=== PATIENT | female | born 1950 | race Caucasian/White ===

== ENCOUNTER 2022-03-09 00:10 | Inpatient (IN) | payer MEDICARE, BC, SELFPAY ==
[2022-03-09] VITALS (15 sets, daily range): BP systolic 106–147; BP diastolic 58–106; PULSE 66–87; RESP 18–22; TEMP 36.6–37.1; O2SAT 76–93; BMI 36.6; BMI 38.2
--- NOTE | 2022-03-09 00:49 | PC.NURSE ---
During triage assessment, patient with O2 saturation 76% on RA, patient placed on 8L NC, now satting 91%. Dr. Fischer notified of this.
--- NOTE | 2022-03-09 01:18 | ED.WEAKNESS ---
HPI - Weakness General Time Seen by Provider: 01:00 Date Seen: 03/09/22 Chief complaint: Unspecified Complaint, Adult Stated complaint: Very fatigued Time Seen by Provider: 03/09/22 00:23 Source: patient and family Mode of arrival: ambulatory Limitations: no limitations History of Present Illness HPI Narrative: Patient is a 71-year-old female who presents ambulatory to the emergency room for weakness and fatigue. She tells me that she just can not stay awake she falls asleep talking to her . She also feels weak any sort of movement around the house does drains her. This is been for a couple days, she has noted no coughing, runny nose, chest pain, isabella shortness of breath, abdominal pain, dysuria frequency rashes or anything else. She has never before had this. She has had 3 COVID shots, no previous history of COVID. She is on oxygen at nighttime to sleep. But during the day she normally is not on oxygen and her sats run approximately 85-90% she tells me. She is eating and drinking otherwise normally. But it is a challenge to eat because she falls asleep all she eats. Complaint: generalized weakness and lack of energy Onset (ago): day(s) Duration: constant and progressively worsening Location: generalized Migration: none Relieving factors: none Exacerbating factors: none, movement and exertion Related Data Home Medications Medication Instructions Recorded Confirmed amlodipine 10 mg tablet 5 mg PO DAILY 03/09/22 03/09/22 aspirin 81 mg capsule 81 mg PO DAILY 03/09/22 03/09/22 atenolol 50 mg tablet mg 03/09/22 gabapentin 300 mg capsule mg 03/09/22 losartan 25 mg tablet mg 03/09/22 simvastatin 40 mg tablet mg 03/09/22 sodium chloride 1 gram tablet 03/09/22 Allergies Allergy/AdvReac Type Severity Reaction Status Date / Time duloxetine Allergy Mild itchy Verified 03/09/22 02:39 Review of Systems Status of ROS: Reports: 10 or more systems reviewed and unremarkable except as noted in History and below PFSH PFS Social History Narrative: Tobacco use Smoking Status: Current every day smoker What tobacco products do you use: cigarettes Second hand tobacco smoke exposure: No How often do you have a drink containing alcohol: 2-4 times a month How many standard drinks containing alcohol do you have on a typical day: 1 or 2 How often do you have six or more drinks on one occasion: Never AUDIT-C Alcohol total score: 2 Non-prescribed substance use: denies use Exam Narrative: Exam Narrative: Patient is speaking to me in full sentences in absolutely no distress. He was initially 76 % on room air. She is now placed on 8 L of oxygen and runs approximately 88-90%. Const: Vital Signs, click to edit/add: Vital Signs - 24 hr 03/09/22 00:25 03/09/22 00:43 Temperature 98.7 F Pulse Rate [Left P ulse Oximeter] 87 66 Respiratory Rate 22 Blood Pressure [Le ft Upper Arm] 129/74 106/73 Pulse Oximetry 76 L 90 Common normals: no apparent distress, oriented x3, no limitations, alert and well nourished General appearance: cooperative, comfortable, well developed and other (Appears cushingoid) Nutritional appearance: obese Orientation/consciousness: Yes awake, Yes oriented to person, Yes oriented to place and Yes oriented to time HENMT: Common normals: normocephalic, head/scalp atraumatic, hearing grossly normal bilaterally, external ears normal, TM's normal bilaterally, moist oral mucous membranes and oropharynx normal Head and scalp: normal to inspection, normocephalic and atraumatic Face and sinus: normal facial exam External ear: external ears normal Tympanic membrane: TM's normal bilaterally Eye: Common normals: PERRL, EOMs intact bilaterally and fundi normal bilaterally General eye: normal appearance of both eyes Pupil: PERRL Direct Ophthalmoscopy: fundi normal bilaterally Neck & C-Spine: Common normals: full ROM, no lymphadenopathy, supple, no meningeal signs, no JVD, thyroid normal and no carotid bruits General: normal visual inspection and trachea midline Thyroid: thyroid normal Cervical spine: cervical ROM normal Lymph: Lymphatic: no lymphadenopathy noted and no lymphedema noted Chest: Common normals: inspection of chest normal and palpation of chest normal Chest: symmetrical chest wall rise Resp: Common normals: normal respiratory effort, no retractions, no use of accessory muscles and clear to auscultation bilaterally Effort & inspection: able to speak in complete sentences and symmetric chest movement Auscultation: clear to auscultation bilaterally Cardio: Common normals: no JVD, regular rate, regular rhythm, S1 normal heart sound, S2 normal heart sound and peripheral pulses 2+ throughout Jugular venous distention: other (Tough to discern her JVD due to the size of her neck.) Palpation: normal PMI Rate: regular rate Rhythm: regular rhythm Heart sounds: S1 normal and S2 normal; no click, no gallops, no murmurs, no rubs, abnormal split S2 and heart sounds not abnormal Peripheral pulses: pulses 2+ throughout and brachial pulses present GI: Common normals: Normal to inspection, nondistended, normoactive bowel sounds present, soft to palpation, non-tender, no hepatosplenomegaly, no masses and no bruits Auscultation: normoactive bowel sounds Palpation: soft and no hepatosplenomegaly Percussion: normal to percussion Rectal Exam - Female: deferred : Common normals: no CVA tenderness Bladder/kidney exam: no CVA tenderness Back & Pelvis: Common normals: no CVA tenderness, thoracic and lumbar spine normal to inspection and no thoracic nor lumbar tenderness Extremity: Common normals: normal to inspection, full ROM, normal capillary refill, no joint enlargement, no clubbing, cyanosis or edema, no calf tenderness and no pedal edema General: normal exam except as noted Neuro: Common normals: oriented x3 Sensorium/orientation: awake, alert, oriented to person, oriented to place and oriented to time Meningeal signs: no meningeal signs Skin: Common normals: no rashes or lesions noted and no wounds General skin exam: no rashes or lesions noted Course Reevaluation(s) Reevaluation #1: Patient is wheezing in the room when I went in to talk to her about her CT scan. I think there is a component of COPD exacerbation here. We will give her a DuoNeb along with Solu-Medrol. She clearly has the pulmonary hypertension component. The hypoxia has improved with the oxygen at 5-6 L. I will consult the overnight out E hospitalist to admit her to the hospital for further care. Time: 03:19 Vital Signs Vital signs: Initial Vital Signs Temperature 98.7 F 03/09/22 00:25 Temperature Source Temporal Artery Scan 03/09/22 00:25 Pulse Rate 87 03/09/22 00:25 Pulse Rhythm 03/09/22 00:25 Blood Pressure 129/74 03/09/22 00:25 Blood Pressure Mean 92 03/09/22 00:25 Blood Pressure Position Supine 03/09/22 00:25 Pulse Oximetry 76 L 03/09/22 00:25 Oxygen Delivery Method 03/09/22 00:25 Vital Signs Temperature 98.7 F 03/09/22 00:25 Pulse Rate 87 03/09/22 00:25 Blood Pressure 129/74 03/09/22 00:25 Pulse Oximetry 76 L 03/09/22 00:25 Temperature 98.7 F 03/09/22 00:25 Pulse Rate 66 03/09/22 00:43 Respiratory Rate 22 03/09/22 00:43 Blood Pressure 106/73 03/09/22 00:43 Pulse Oximetry 90 03/09/22 00:43 MDM - Weakness MDM Narrative Medical decision making narrative: Life-threatening differential diagnosis considered include stroke, coronary artery disease, pneumonia, and heart failure. Other differential diagnosis include but are not limited to electrolyte imbalances, anemia, medication reactions, and urinary tract infection Life-threatening differential diagnosis includes occluded COPD exacerbation, pulmonary edema, acute coronary syndromes, pulmonary embolism, pneumonia, and pneumothorax. Other differential diagnosis considerations include asthma, bronchitis as well as other etiologies Medical Records Attestation: I reviewed the patient's medical records. Lab Data Attestation: I reviewed the patient's lab results. Labs: Lab Results 03/09/22 03/09/22 03/09/22 Range/Units 00:43 01:05 01:05 WBC 9.25 (4.50-11.00) K/uL RBC 4.41 (4.00-5.20) m/uL Hgb 14.6 (12.0-16.0) gm/dL Hct 45.5 (33.0-51.0) % MCV 103 H (80-100) fL MCH 33 (26-34) pg MCHC 32 (32-36) gm/dL RDW Coeff of Ezra 13.3 (11.5-15.5) % Plt Count 241 (140-440) K/uL Neut % (Auto) 75.3 H (42.0-72.0) % Lymph % (Auto) 11.7 L (20-44) % [place] % (Auto) 9.4 (0.0-11.0) % Eos % (Auto) 1.5 (0.0-7.0) % Baso % (Auto) 0.4 (0.0-3.0) % Neut # (Auto) 7.00 (1.7-7.0) K/uL Lymph # (Auto) 1.10 (0.90-2.90) K/uL [place] # (Auto) 0.90 (0.00-0.90) K/UL Eos # (Auto) 0.14 (0.00-0.50) K/uL Baso # (Auto) 0.04 (0.00-0.30) K/uL Abs Immat Gran (auto) 0.16 (0.00-0.30) K/uL INR (0.91-1.10) APTT (23-33) Seconds D-Dimer Quant (PE/DVT) 2.89 H (0.00-0.50) ug/ml ABG pH (7.35-7.45) ABG pCO2 (35-45) mmHG ABG pO2 (80-105) mmHG ABG HCO3 (21-28) mmol/L ABG Total CO2 (21-30) mmol/l ABG Base Excess (-3.0-3.0) mmol/L Sodium (135-149) mmol/L Potassium (3.6-5.1) mmol/L Chloride (96-114) mmol/L Carbon Dioxide (20-32) mmol/L BUN (7-30) mg/dL Creatinine (0.5-1.5) mg/dL Estimated Creat Clear Glucose (60-115) mg/dL Calcium (8.4-10.6) mg/dL NT-Pro-B Natriuret Pep (0-125) PG/mL SARS-CoV-2 (PCR) Negative SARS-CoV-2 (Negative) Influenza Type A (PCR) NEGATIVE (Negative) Influenza Type B (PCR) NEGATIVE (Negative) RSV (PCR) NEGATIVE (Negative) POC Troponin I (0.01-0.04) ng/ml 03/09/22 03/09/22 03/09/22 Range/Units 01:05 01:05 01:05 WBC (4.50-11.00) K/uL RBC (4.00-5.20) m/uL Hgb (12.0-16.0) gm/dL Hct (33.0-51.0) % MCV (80-100) fL MCH (26-34) pg MCHC (32-36) gm/dL RDW Coeff of Ezra (11.5-15.5) % Plt Count (140-440) K/uL Neut % (Auto) (42.0-72.0) % Lymph % (Auto) (20-44) % [place] % (Auto) (0.0-11.0) % Eos % (Auto) (0.0-7.0) % Baso % (Auto) (0.0-3.0) % Neut # (Auto) (1.7-7.0) K/uL Lymph # (Auto) (0.90-2.90) K/uL [place] # (Auto) (0.00-0.90) K/UL Eos # (Auto) (0.00-0.50) K/uL Baso # (Auto) (0.00-0.30) K/uL Abs Immat Gran (auto) (0.00-0.30) K/uL INR 1.01 (0.91-1.10) APTT 32 (23-33) Seconds D-Dimer Quant (PE/DVT) (0.00-0.50) ug/ml ABG pH (7.35-7.45) ABG pCO2 (35-45) mmHG ABG pO2 (80-105) mmHG ABG HCO3 (21-28) mmol/L ABG Total CO2 (21-30) mmol/l ABG Base Excess (-3.0-3.0) mmol/L Sodium 128 L (135-149) mmol/L Potassium 5.5 H (3.6-5.1) mmol/L Chloride 88 L (96-114) mmol/L Carbon Dioxide 31 (20-32) mmol/L BUN 23 (7-30) mg/dL Creatinine 0.9 (0.5-1.5) mg/dL Estimated Creat Clear 45.76 Glucose 110 (60-115) mg/dL Calcium 8.7 (8.4-10.6) mg/dL NT-Pro-B Natriuret Pep 2240 H (0-125) PG/mL SARS-CoV-2 (PCR) (Negative) Influenza Type A (PCR) (Negative) Influenza Type B (PCR) (Negative) RSV (PCR) (Negative) POC Troponin I 0.00 L (0.01-0.04) ng/ml 03/09/22 Range/Units 01:35 WBC (4.50-11.00) K/uL RBC (4.00-5.20) m/uL Hgb (12.0-16.0) gm/dL Hct (33.0-51.0) % MCV (80-100) fL MCH (26-34) pg MCHC (32-36) gm/dL RDW Coeff of Ezra (11.5-15.5) % Plt Count (140-440) K/uL Neut % (Auto) (42.0-72.0) % Lymph % (Auto) (20-44) % [place] % (Auto) (0.0-11.0) % Eos % (Auto) (0.0-7.0) % Baso % (Auto) (0.0-3.0) % Neut # (Auto) (1.7-7.0) K/uL Lymph # (Auto) (0.90-2.90) K/uL [place] # (Auto) (0.00-0.90) K/UL Eos # (Auto) (0.00-0.50) K/uL Baso # (Auto) (0.00-0.30) K/uL Abs Immat Gran (auto) (0.00-0.30) K/uL INR (0.91-1.10) APTT (23-33) Seconds D-Dimer Quant (PE/DVT) (0.00-0.50) ug/ml ABG pH 7.38 (7.35-7.45) ABG pCO2 59 H (35-45) mmHG ABG pO2 71.0 L (80-105) mmHG ABG HCO3 35 H (21-28) mmol/L ABG Total CO2 31 H (21-30) mmol/l ABG Base Excess 8.0 H (-3.0-3.0) mmol/L Sodium (135-149) mmol/L Potassium (3.6-5.1) mmol/L Chloride (96-114) mmol/L Carbon Dioxide (20-32) mmol/L BUN (7-30) mg/dL Creatinine (0.5-1.5) mg/dL Estimated Creat Clear Glucose (60-115) mg/dL Calcium (8.4-10.6) mg/dL NT-Pro-B Natriuret Pep (0-125) PG/mL SARS-CoV-2 (PCR) (Negative) Influenza Type A (PCR) (Negative) Influenza Type B (PCR) (Negative) RSV (PCR) (Negative) POC Troponin I (0.01-0.04) ng/ml ABG Data Attestation: I personally reviewed and interpreted this ABG as follows: (Hypoxia with increased CO2) Imaging Data CT scan - chest: Attestation: I have reviewed the pertinent imaging results. My impression: Effusions noted, Radiologist's impression: Patient: RACHEL CHUN Facility:?[facility] Patient ID:?[id number] Site Patient ID:?[id number]. Site :?[id number] Study:?CT Chest w/ 95cc Isovue-370 PE Protocol-03/09/2022 2:50:05 AM Ordering Physician:Myra Garcia Final Report: INDICATION: Shortness of breath. History of malignant fallopian tube neoplasm TECHNIQUE: CT chest with i.v. contrast using pulmonary angiographic technique. Coronal and sagittal reformats were obtained. CONTRAST: 95 mL Isovue 370 COMPARISON: 11/10/2021 FINDINGS: Cardiovascular: The pulmonary arteries are unremarkable in enhancement with no evidence of acute pulmonary embolism. Severe enlargement of the main pulmonary artery is present and measures 3.9 cm in maximal short axis. The heart has an unremarkable appearance and size. No sign of aneurysm in the thoracic aorta. A right Port-A-Cath is present. Mediastinum: There is a precarinal lymph node measuring 1.5 cm and increased in size from prior exam. Lung: Peribronchial and segmental atelectasis is present in both posterior lower lobes. Pleura and pericardium: Small bilateral pleural effusions are noted. No significant pericardial effusion is present. Chest wall and axilla: No mass or adenopathy seen. Bone: Unremarkable for age. Upper abdomen: There is a cyst present in the upper pole of the left kidney measuring 2.4 cm. IMPRESSIONS: 1. No CT evidence of acute pulmonary emboli seen. 2. Severe enlargement of the main pulmonary artery is present and measures 3.9 cm in maximal short axis. This is likely due to pulmonary hypertension and is similar in appearance to prior exam. 3. Small bilateral pleural effusions are noted. 4. There is a precarinal lymph node measuring 1.5 cm and increased in size from prior exam. Dictated by Fortunato Baires MD @ 03/09/2022 3:02:38 AM Please note that all CT scans at this facility use dose modulation, iterative reconstruction, and/or weight-based dosing when appropriate to reduce radiation dose to as low as reasonably achievable. Dictated by: Fortunato Baires MD @ 03/09/2022 03:02:44 (Electronic Signature) ECG Data Attestation: I personally reviewed and interpreted this ECG as follows: (Normal sinus rhythm, ventricular rate is 70 beats per minute, no acute ST wave changes) ECG interpretation date: 03/09/22 ECG interpretation time: 01:22 Discharge Plan Discharge Clinical Impression: Pulmonary hypertension, Weakness, Hypoxia, Acute exacerbation of chronic obstructive pulmonary disease, Acute hyponatremia, Acute hyperkalemia Patient Disposition: Admitted As Inpatient Prescriptions: No Action amlodipine 10 mg tablet 5 mg PO DAILY 0RF Label Comments: TAKE ONE TABLET BY MOUTH DAILY sodium chloride 1 gram tablet 0RF Label Comments: TAKE ONE TABLET BY MOUTH TWICE A DAY simvastatin 40 mg tablet 0RF Label Comments: TAKE ONE TABLET BY MOUTH AT BEDTIME losartan 25 mg tablet 0RF Label Comments: TAKE ONE TABLET (25MG) BY MOUTH ONCE DAILY gabapentin 300 mg capsule 0RF Label Comments: TAKE TWO CAPSULES BY MOUTH TWICE A DAY atenolol 50 mg tablet 0RF Label Comments: TAKE ONE TABLET BY MOUTH TWICE A DAY aspirin 81 mg capsule 81 mg PO DAILY 0RF Follow Up/Referrals: Silver Whalen MD [Primary Care Provider] -
[2022-03-09 01:21] LABS: Basophils Absolute Auto 0.04 K/uL (0.00-0.30); Basophils Percent Auto 0.4 % (0.0-3.0); Eosinophils Absolute Auto 0.14 K/uL (0.00-0.50); Eosinophils Percent Auto 1.5 % (0.0-7.0); Hematocrit 45.5 % (33.0-51.0); Hemoglobin* 14.6 gm/dL (12.0-16.0); Immature Granulocytes Abs Auto 0.16 K/uL (0.00-0.30); Lymphocytes Percent Auto 11.7 % (20-44); Mean Corpuscular HGB Conc 32 gm/dL (32-36); Mean Corpuscular Hemoglobin 33 pg (26-34); Mean Corpuscular Volume 103 fL (80-100); Monocytes Percent Auto 9.4 % (0.0-11.0); Neutrophils Percent Auto 75.3 % (42.0-72.0); Platelet Count* 241 K/uL (140-440); RDW Coefficient of Variation % 13.3 % (11.5-15.5); Red Blood Count 4.41 m/uL (4.00-5.20); White Blood Count* 9.25 K/uL (4.50-11.00)
[2022-03-09 01:23] LABS: Slide Review Reflex No
[2022-03-09 01:28] LABS: PCR FLU A NEGATIVE (Negative); PCR FLU B NEGATIVE (Negative); PCR RSV NEGATIVE (Negative); SARS PCR* Negative SARS-CoV-2 (Negative)
[2022-03-09 01:35] LABS: Chloride* 88 mmol/L (96-114); Potassium* 5.5 mmol/L (3.6-5.1); Sodium* 128 mmol/L (135-149)
[2022-03-09 01:37] LABS: INR 1.01 (0.91-1.10); Prothrombin Time 13.7 Seconds
[2022-03-09 01:38] LABS: Blood Urea Nitrogen* 23 mg/dL (7-30); Carbon Dioxide* 31 mmol/L (20-32); Creatinine* 0.9 mg/dL (0.5-1.5); Est. Creatinine Clearance* 45.76; Estimated Glomerular Filt Rate 67.92; Partial Thromboplastin Time* 32 Seconds (23-33)
[2022-03-09 01:39] LABS: Calcium* 8.7 mg/dL (8.4-10.6); Glucose* 110 mg/dL (60-115)
[2022-03-09 01:41] LABS: D Dimer Quantitative* 2.89 ug/ml (0.00-0.50)
--- NOTE | 2022-03-09 01:47 | CT_ITS ---
Final Report Patient: RACHEL CHUN Facility:?[facility] Patient ID:?[id number] Site Patient ID:?[id number]. Site :?[id number] Study:?CT Chest w/ 95cc Isovue-370 PE Protocol-03/09/2022 2:50:05 AM Ordering Physician:Myra Garcia Final Report: INDICATION: Shortness of breath. History of malignant fallopian tube neoplasm TECHNIQUE: CT chest with i.v. contrast using pulmonary angiographic technique. Coronal and sagittal reformats were obtained. CONTRAST: 95 mL Isovue 370 COMPARISON: 11/10/2021 FINDINGS: Cardiovascular: The pulmonary arteries are unremarkable in enhancement with no evidence of acute pulmonary embolism. Severe enlargement of the main pulmonary artery is present and measures 3.9 cm in maximal short axis. The heart has an unremarkable appearance and size. No sign of aneurysm in the thoracic aorta. A right Port-A-Cath is present. Mediastinum: There is a precarinal lymph node measuring 1.5 cm and increased in size from prior exam. Lung: Peribronchial and segmental atelectasis is present in both posterior lower lobes. Pleura and pericardium: Small bilateral pleural effusions are noted. No significant pericardial effusion is present. Chest wall and axilla: No mass or adenopathy seen. Bone: Unremarkable for age. Upper abdomen: There is a cyst present in the upper pole of the left kidney measuring 2.4 cm. IMPRESSIONS: 1. No CT evidence of acute pulmonary emboli seen. 2. Severe enlargement of the main pulmonary artery is present and measures 3.9 cm in maximal short axis. This is likely due to pulmonary hypertension and is similar in appearance to prior exam. 3. Small bilateral pleural effusions are noted. 4. There is a precarinal lymph node measuring 1.5 cm and increased in size from prior exam. Dictated by Fortunato Baires MD @ 03/09/2022 3:02:38 AM Please note that all CT scans at this facility use dose modulation, iterative reconstruction, and/or weight-based dosing when appropriate to reduce radiation dose to as low as reasonably achievable. Dictated by: Fortunato Baires MD @ 03/09/2022 03:02:44 (Electronic Signature)
[2022-03-09 01:49] LABS: NT Pro B Type NatriureticPept* 2240 PG/mL (0-125)
--- NOTE | 2022-03-09 02:07 | PC.NURSE ---
Patient O2 titrated down to 6L NC. Per Dr. Fischer, goal of 90% O2 saturation
--- NOTE | 2022-03-09 02:58 | PC.NURSE ---
O2 titrated to 4L NC, patient satting 90-91%
[2022-03-09] MEDS: METHYLPREDNISOLONE SOD SUCC 62.5 MG/ML (125) 125 MG IVP (03:26)
[2022-03-09] MEDS: IPRAT-ALBUT 0.5-2.5 MG/3 ML NEB 1 NEB IH ×4 (03:26→17:36)
--- NOTE | 2022-03-09 06:02 | PM.IMPN1 ---
Progress Note: A&P Assessment and plan (1) Acute exacerbation of chronic obstructive pulmonary disease: Status: Acute Plan [facility] Hospitalist eHospitalist was contacted with request of consultation for patient presenting with acute hypoxic and hypercapnic respiratory failure. History of presenting illness-the patient is a 71-year-old woman with a past medical history of likely obstructive sleep apnea on home oxygen 3 to 4 L/min at night and recently started on CPAP, possible COPD with ongoing smoking even though she has no formal diagnosis of COPD, hypertension who comes in complaining of worsening shortness of breath and fatigue. She says she has been very tired for the last 4 to 5 days and has had very poor appetite and has hardly eaten anything and has had not much fluid intake. About 2 days ago she began having worsening shortness of breath with wheezing. She has a chronic dry cough and denies any expectoration. She denies any chest pain, fevers, chills, rigors, sore throat headache or stuffy nose. She has no sick contacts. In the emergency room she was afebrile and hemodynamically stable but pulse oximetry was 70% on room air. She was noted to be wheezing. She was initially put on oxygen 8 to 9 L and slowly wean down to 4 L/min. She was given Solu-Medrol and nebs. A CT chest rule out pulmonary embolism did not show any acute pulmonary infiltrates. He is negative for COVID and influenza. When I spoke to the patient she had been weaned down to oxygen 4 L/min and she felt better. She denies any history of leg or chest clots. In the ER she was also noted to be mildly hyponatremic and mildly hyperkalemic. Home Medications: see EMR Pertinent Medical History: As in HPI Pertinent Social History: She continues to smoke about half a pack a day Exam (performed via interactive video with assistance of bedside nurse): ED vitals temperature 98.7 blood pressure 129/74, heart rate 87 respirations 22 O2 sat 76% on room air Current vitals temperature 97.8 blood pressure 140/106 heart rate 76 respirations 20 O2 sat 90% on oxygen 4 L/min General: alert, cooperative, no acute distress HEENT: oral mucosa pink and moist without erythema Lungs: Bibasilar wheezing heard CV: regular rate and rhythm without loud murmur rub or gallop Abd: denies tenderness and does not exhibit signs of pain with palpation done by bedside nurse Ext: no pitting edema noted Skin: no rashes, bruises or lesions appreciated on gross visualization of exposed skin Neuro:[alert, oriented x 3. facial muscles grossly intact, moves all extremities without any significant focal deficit appreciated by nurse Sodium 128, potassium 5.5 chloride 88 BUN 23 creatinine 0.9 BNP 2240 D-dimer 2.89 WBC 9.25 hemoglobin 14.6 ABG pH 7.38 PCO2 59 PO2 [address] chest as discussed Assessment and Plan: The patient likely presents with acute COPD exacerbation with acute hypoxic and hypercapnic respiratory failure. No acute pulmonary infection or pulmonary embolism found. She is clinically improving with steroids and nebulizer treatments. Noted to be mildly hyponatremic and hyperkalemic possibly in the setting of dehydration from poor p.o. intake. -Continue oxygen 3 to 4 L/min. Respiratory therapy consult, she may need CPAP at night. -Prednisone 40 mg daily,DuoNebs -Gentle hydration -Kayexalate 15 g x 1 dose for hyperkalemia. Check potassium and electrolytes in the morning. -elevated BNP likely reflection of pulmonary hypertension, no sign of acute heart failure. -Elevated D-dimer; negative for pulmonary embolism. Will get lower extremity Dopplers to rule out DVT. [facility] This service is available for further assistance as requested by your care team by calling [phone]. Exam Const: Vital Signs, click to edit/add: Vital Signs - 24 hr 03/09/22 00:25 03/09/22 00:43 03/09/22 01:00 Temperature 98.7 F Pulse Rate [Left P ulse Oximeter] 87 66 74 Pulse Rate [Pulse Oximeter] Respiratory Rate 22 22 Blood Pressure [Le ft Arm] Blood Pressure [Le ft Upper Arm] 129/74 106/73 113/75 Pulse Oximetry 76 L 90 91 03/09/22 01:30 03/09/22 02:00 03/09/22 02:50 Temperature Pulse Rate [Left P ulse Oximeter] 69 72 71 Pulse Rate [Pulse Oximeter] Respiratory Rate 20 20 22 Blood Pressure [Le ft Arm] Blood Pressure [Le ft Upper Arm] 127/66 120/58 L 142/73 H Pulse Oximetry 91 93 92 03/09/22 03:00 03/09/22 03:30 03/09/22 04:00 Temperature Pulse Rate [Left P ulse Oximeter] 75 73 74 Pulse Rate [Pulse Oximeter] Respiratory Rate 20 20 22 Blood Pressure [Le ft Arm] Blood Pressure [Le ft Upper Arm] 137/77 142/77 H 138/79 Pulse Oximetry 92 89 89 03/09/22 04:29 Temperature 97.8 F Pulse Rate [Left P ulse Oximeter] Pulse Rate [Pulse Oximeter] 76 Respiratory Rate 22 Blood Pressure [Le ft Arm] 140/106 H Blood Pressure [Le ft Upper Arm] Pulse Oximetry 90 Labs Labs: Laboratory Results - last 24 hr 03/09/22 03/09/22 03/09/22 00:43 01:05 01:05 WBC 9.25 RBC 4.41 Hgb 14.6 Hct 45.5 MCV 103 H MCH 33 MCHC 32 RDW Coeff of Ezra 13.3 Plt Count 241 Neut % (Auto) 75.3 H Lymph % (Auto) 11.7 L Mcn[place] % (Auto) 9.4 Eos % (Auto) 1.5 Baso % (Auto) 0.4 Neut # (Auto) 7.00 Lymph # (Auto) 1.10 [place] # (Auto) 0.90 Eos # (Auto) 0.14 Baso # (Auto) 0.04 Abs Immat Gran (auto) 0.16 INR APTT D-Dimer Quant (PE/DVT) 2.89 H ABG pH ABG pCO2 ABG pO2 ABG HCO3 ABG Total CO2 ABG Base Excess Sodium Potassium Chloride Carbon Dioxide BUN Creatinine Estimated Creat Clear Glucose Calcium NT-Pro-B Natriuret Pep SARS-CoV-2 (PCR) Negative SARS-CoV-2 Influenza Type A (PCR) NEGATIVE Influenza Type B (PCR) NEGATIVE RSV (PCR) NEGATIVE POC Troponin I 03/09/22 03/09/22 03/09/22 01:05 01:05 01:05 WBC RBC Hgb Hct MCV MCH MCHC RDW Coeff of Ezra Plt Count Neut % (Auto) Lymph % (Auto) [place] % (Auto) Eos % (Auto) Baso % (Auto) Neut # (Auto) Lymph # (Auto) [place] # (Auto) Eos # (Auto) Baso # (Auto) Abs Immat Gran (auto) INR 1.01 APTT 32 D-Dimer Quant (PE/DVT) ABG pH ABG pCO2 ABG pO2 ABG HCO3 ABG Total CO2 ABG Base Excess Sodium 128 L Potassium 5.5 H Chloride 88 L Carbon Dioxide 31 BUN 23 Creatinine 0.9 Estimated Creat Clear 45.76 Glucose 110 Calcium 8.7 NT-Pro-B Natriuret Pep 2240 H SARS-CoV-2 (PCR) Influenza Type A (PCR) Influenza Type B (PCR) RSV (PCR) POC Troponin I 0.00 L 03/09/22 01:35 WBC RBC Hgb Hct MCV MCH MCHC RDW Coeff of Ezra Plt Count Neut % (Auto) Lymph % (Auto) [place] % (Auto) Eos % (Auto) Baso % (Auto) Neut # (Auto) Lymph # (Auto) [place] # (Auto) Eos # (Auto) Baso # (Auto) Abs Immat Gran (auto) INR APTT D-Dimer Quant (PE/DVT) ABG pH 7.38 ABG pCO2 59 H ABG pO2 71.0 L ABG HCO3 35 H ABG Total CO2 31 H ABG Base Excess 8.0 H Sodium Potassium Chloride Carbon Dioxide BUN Creatinine Estimated Creat Clear Glucose Calcium NT-Pro-B Natriuret Pep SARS-CoV-2 (PCR) Influenza Type A (PCR) Influenza Type B (PCR) RSV (PCR) POC Troponin I
[2022-03-09] MEDS: 5 % DEXTROSE/0.45% SOD CHLOR 1,000 ML 75 ML IV (06:37)
[2022-03-09 07:05] LABS: Chloride* 86 mmol/L (96-114); Potassium* 5.1 mmol/L (3.6-5.1); Sodium* 128 mmol/L (135-149)
[2022-03-09 07:08] LABS: Blood Urea Nitrogen* 21 mg/dL (7-30); Carbon Dioxide* 33 mmol/L (20-32); Creatinine* 0.9 mg/dL (0.5-1.5); Est. Creatinine Clearance* 45.76; Estimated Glomerular Filt Rate 67.92; Glucose* 111 mg/dL (60-115)
[2022-03-09 07:09] LABS: Calcium* 8.9 mg/dL (8.4-10.6)
--- NOTE | 2022-03-09 07:27 | PC.NURSE ---
ADMISSION NOTE: Pt is pleasant and cooperative, forgetfulness noted. Up SBA, tolerating well. Pt came up from the ER on 4L and remains on 4L with oxygen saturations 89-90%. Afebrile. Pt SOB with exertion, better with rest. Denies chest pain, pain, N&V.
--- NOTE | 2022-03-09 07:46 | PM.IMHP1 ---
Hospitalist- H&P: HPI History of Present Illness Date Seen: 03/10/22 Chief complaint: Very fatigued Narrative: ADMISSION HISTORY AND PHYSICAL - HOSPITALIST Chief Complaint: Increasing fatigue, severe. Shortness of breath cough in the last 24 hours. HPI: Patient is a 71-year-old smoker who recently was diagnosed with obstructive sleep apnea. She has only had her home CPAP machine with oxygen over the last couple of weeks. She said she has had some trouble getting it to work properly. In the last 5 days she has had dramatic increase in her fatigue. She states she could not even stay awake to watch TV. She is napping throughout the day. She feels everything takes excessive amount of energy. She did not really notice shortness of breath until the last 24 hours. At that point she felt like she could get a deep breath. No sense of chest pain or pressure. No known cardiac disease. 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 Status post 6 cycles of NACT followed by debulking procedure, adjuvant chemo. In remission. BRCA2 mutation Obstructive sleep apnea COPD, no official diagnosis Hypertension on Norvasc, losartan, atenolol Hyperlipidemia on simvastatin Chronic pain on gabapentin Morbid obesity MEDICATIONS: Norvasc 10 mg daily Aspirin 81 mg daily atenolol 50 mg b.i.d. Gabapentin 600 mg b.i.d. Losartan 25 mg daily simvastatin 40 mg q.h.s. Sodium chloride tabs 1 g b.i.d. ALLERGIES: Cymbalta SURGICAL HISTORY: Exploratory laparotomy, total abdominal hysterectomy, bilateral salpingo oophorectomy, bilateral retroperitoneal dissection, left ureteral lysis, omentectomy, cystoscopy July of 2018 FAMILY HISTORY: Reviewed in EMR HABITS: Smokes quarter to half pack-a-day SOCIAL HISTORY: INVESTIGATIONS: LABS/MICRO/ECG/IMAGING Vitals reviewed. She is requiring 2-4 L to keep her sats in the low 90s. Pulse 80. Afebrile. CBC reveals an MCV of 103. D-dimer was a little elevated at 2.89, INR 1 Blood gas shows some CO2 retention in the mid to high 50s. Normal pH. Chronic hyponatremia, once again noted. Normal renal function. BNP 2240 Negative respiratory panel, negative troponin Review of our original [facility] shows her sodium seems chronically low in the low 130s. Creatinine around 1.0 Last BNP noted in the [facility] is 320 on July of 2021 Echo done in March of 2020: Final Impressions: 1. Normal left ventricular size, moderately increased wall thickness, normal global systolic function, calculated EF of 71 %. 2. Moderate concentric left ventricular hypertrophy. 3. Mildly enlarged left atrium. 4. The inferior vena cava is dilated, respiratory size variation greater than 50%. 5. The ascending aorta is dilated with a maximal diameter of 3.8 cm. REVIEW OF SYSTEMS: 12-point ROS completed with patient and negative unless otherwise stated in HPI or below. PHYSICAL EXAM: CODE STATUS: CONSTITUTIONAL: Conversive, good historian. A/O. Knows setting and context. VITAL SIGNS: see record. HEENT: Normocephalic, atraumatic. PERRL, EOMI, conjunctivae pink, no scleral icterus. Ears and nose externally normal. Pharynx normal. NECK: No JVD. No carotid bruit, no thyromegaly, no adenopathy. CHEST: Clear to auscultation bilaterally HEART: S1 and S2 normal. No harsh murmurs. Edema MUSCULOSKELETAL: No gross joint deformity or swelling. NEURO: Cranial nerves intact. Grossly intact. No asymmetric findings. SKIN: No rashes, petechiae, concerning changes PSYCHIATRIC: Euthymic. ADMIT DVT: Lovenox GI: PO intake Time spent: 70 minutes examining patient, conferring with family and patient, care staff, developing care plan [facility] Medical History (Updated 03/09/22 @ 16:47 by Eneida Joiner MD) CO2 retention Social History Narrative: Tobacco use Highest level of school completed/degree received: some college, no degree Smoking Status: Current every day smoker What tobacco products do you use: cigarettes Smoking packs per day: 0.5 Smoking cigarettes per day: 10.0 Years smoked: 50 Smoking pack-years: 25.00 Do you use any of these nicotine containing products: None Second hand tobacco smoke exposure: No How often do you have a drink containing alcohol: 2-4 times a month How many standard drinks containing alcohol do you have on a typical day: 1 or 2 How often do you have six or more drinks on one occasion: Never AUDIT-C Alcohol total score: 2 Non-prescribed substance use: denies use Caffeine: Yes (1 cup coffee per day, diet coke) service: No Meds Home Medications and Allergies Home Medications Medication Instructions Recorded Confirmed Type amlodipine 10 mg tablet 10 mg PO DAILY 03/09/22 03/09/22 History aspirin 81 mg capsule 81 mg PO DAILY 03/09/22 03/09/22 History atenolol 50 mg tablet 50 mg PO BID 03/09/22 03/09/22 History gabapentin 300 mg capsule 600 mg PO BID 03/09/22 03/09/22 History losartan 25 mg tablet 25 mg PO DAILY 03/09/22 03/09/22 History simvastatin 40 mg tablet 40 mg PO HS 03/09/22 03/09/22 History sodium chloride 1 gram tablet 1,000 mg PO BID 03/09/22 03/09/22 History Allergies Allergy/AdvReac Type Severity Reaction Status Date / Time duloxetine Allergy Mild itchy Verified 03/09/22 02:39 Exam Const: Vital Signs, click to edit/add: Vital Signs - 24 hr 03/09/22 00:25 03/09/22 00:43 03/09/22 01:00 Temperature 98.7 F Pulse Rate [Left P ulse Oximeter] 87 66 74 Pulse Rate [Pulse Oximeter] Respiratory Rate 22 22 Blood Pressure [Le ft Arm] Blood Pressure [Le ft Upper Arm] 129/74 106/73 113/75 Pulse Oximetry 76 L 90 91 03/09/22 01:30 03/09/22 02:00 03/09/22 02:50 Temperature Pulse Rate [Left P ulse Oximeter] 69 72 71 Pulse Rate [Pulse Oximeter] Respiratory Rate 20 20 22 Blood Pressure [Le ft Arm] Blood Pressure [Le ft Upper Arm] 127/66 120/58 L 142/73 H Pulse Oximetry 91 93 92 03/09/22 03:00 03/09/22 03:30 03/09/22 04:00 Temperature Pulse Rate [Left P ulse Oximeter] 75 73 74 Pulse Rate [Pulse Oximeter] Respiratory Rate 20 20 22 Blood Pressure [Le ft Arm] Blood Pressure [Le ft Upper Arm] 137/77 142/77 H 138/79 Pulse Oximetry 92 89 89 03/09/22 04:29 Temperature 97.8 F Pulse Rate [Left P ulse Oximeter] Pulse Rate [Pulse Oximeter] 76 Respiratory Rate 22 Blood Pressure [Le ft Arm] 140/106 H Blood Pressure [Le ft Upper Arm] Pulse Oximetry 90 Hospitalist - H&P: Result Labs Labs: Short CBC 03/09/22 Range/Units 01:05 WBC 9.25 (4.50-11.00) K/uL Hgb 14.6 (12.0-16.0) gm/dL Hct 45.5 (33.0-51.0) % Plt Count 241 (140-440) K/uL BMP 03/09/22 03/09/22 01:05 06:22 Sodium 128 L 128 L Potassium 5.5 H 5.1 Chloride 88 L 86 L Carbon Dioxide 31 33 H BUN 23 21 Creatinine 0.9 0.9 Glucose 110 111 Calcium 8.7 8.9 Assessment and Plan Assessment and plan (1) Acute on chronic respiratory failure with hypoxia and hypercapnia: Status: Acute Assessment and Plan: O2 to support, with care not to induce a CO2 narcosis trend CO2 retention by ABG or VBG BiPAP if needed echo today shows some pulmonary hypertension, increased BNP starting oral prednisone today after IV Solu-Medrol yesterday starting doxycycline (2) Acute exacerbation of chronic obstructive pulmonary disease: Status: Acute Assessment and Plan: Pulmicort nebs. DuoNebs. P.o. prednisone. IV Lasix and then p.o. Lasix. Potassium. O2 to support. BiPAP if needed. needs to stop smoking. (3) Pulmonary hypertension: Status: Acute Assessment and Plan: hold fluids, IV Lasix today, p.o. Lasix tomorrow. Adding potassium. Trend labs. . Echo reviewed. (4) CO2 retention: Status: Acute Assessment and Plan: echo reviewed. Elevated right atrial pressures. No more fluids. no more than 3-4 L O2 per nasal cannula. Okay to for her sats to be 88-92%. Trend ABG/VBG. Gentle diuresis. (5) Hypertension: Status: Acute Assessment and Plan: Restart home meds (6) Malignant neoplasm of ovary: Status: Acute Plan Noted.
[2022-03-09 08:55] LABS: ABG PCO2 53 mmHG (35-45); Base Excess ABG 6.5 mmol/L (-3.0-3.0); HCO3 ABG 33 mmol/L (21-28); Oxygen Saturation ABG 90 % (92-100); PO2 ABG 57.7 mmHG (80-105); TCO2 ABG 29 mmol/l (21-30)
[2022-03-09] MEDS: predniSONE 20 MG TABLET 40 MG PO (09:35)
[2022-03-09] MEDS: DOXYCYCLINE HYCLATE 100 MG CAPSULE PO ×2 (09:36→20:35)
[2022-03-09] MEDS: BUDESONIDE 0.5 MG/2ML NEB NEB ×2 (09:37→20:35)
--- NOTE | 2022-03-09 14:02 | PC.NURSE ---
Addendum entered by Esperanza Cohen RN 03/09/22 15:02: Transfer of care for this patient to Amanda Blancas RN, report provided per protocol. Original Note: Pt eval by Dr. Joiner. Please see eMar for meds given on med shift. Pt denies CP or worsening SOB. Oxygen sats 88-93% on 4L/nc. Up to BR with SBA of one. Maintenance IVF running @75cc per hour. Adequate I & 0. Pt's brought in her CPAP machine to be checked and set up by Fitz from RT. Pt has a positive attitude. Counseled by RN and Dr. Joiner regarding smoking cessation. Pt has 50 yr hx of 1/2 ppd. Less fatigued than when I came in to the hospital.
[2022-03-09] MEDS: FUROSEMIDE 10 MG/ML inj 40 MG IV (17:35)
[2022-03-09] MEDS: ENOXAPARIN 40 MG/0.4 ML INJ SUBCUT (20:33)
[2022-03-09] MEDS: POTASSIUM PHOS/SODIUM PHOS 250 MG TABLET PO (20:33)
[2022-03-09] MEDS: atenoloL 50 MG TABLET PO (20:34)
[2022-03-09] MEDS: GABAPENTIN 300 MG CAPSULE 600 MG PO (20:34)
[2022-03-09] MEDS: SODIUM CHLORIDE 1 GM TABLET PO (20:34)
[2022-03-09] MEDS: SIMVASTATIN 40 MG TABLET PO (20:35)
[2022-03-10] VITALS (11 sets, daily range): BP systolic 114–170; BP diastolic 61–94; PULSE 70–80; RESP 16–22; TEMP 36.6–37.1; O2SAT 89–94
[2022-03-10] MEDS: IPRAT-ALBUT 0.5-2.5 MG/3 ML NEB 1 NEB IH ×4 (01:10→23:19)
--- NOTE | 2022-03-10 06:52 | PC.NURSE ---
Shift Note [id number]: Pt is pleasant and cooperative. Pt denies pain, N/V. Pt with expiratory wheezing noted. Pt becomes SOB with activity and desats; pt recovers within 5min with use of supplemental oxygen. CPAP utilized during the night with 5L O2. VSS with the use of supplemental O2. Afebrile. Ambulates with walker and SBA. Pt slept well.
[2022-03-10 07:23] LABS: Basophils Percent Auto 0.1 % (0.0-3.0); Hematocrit 43.4 % (33.0-51.0); Immature Granulocytes Abs Auto 0.04 K/uL (0.00-0.30); Lymphocytes Percent Auto 6.1 % (20-44); Mean Corpuscular HGB Conc 32 gm/dL (32-36); Mean Corpuscular Hemoglobin 33 pg (26-34); Mean Corpuscular Volume 102 fL (80-100); Monocytes Percent Auto 7.1 % (0.0-11.0); Neutrophils Percent Auto 86.4 % (42.0-72.0); Platelet Count* 240 K/uL (140-440); RDW Coefficient of Variation % 13.4 % (11.5-15.5); Red Blood Count 4.25 m/uL (4.00-5.20); White Blood Count* 11.55 K/uL (4.50-11.00)
[2022-03-10 07:37] LABS: HCO3 VBG 34 mmol/L (21-28); PCO2 VBG 47 mmHG (40-50)
[2022-03-10 07:45] LABS: Slide Review Reflex No
[2022-03-10 07:55] LABS: Albumin* 3.8 g/dL (3.3-5.0); Chloride* 90 mmol/L (96-114)
[2022-03-10 07:56] LABS: Potassium* 4.8 mmol/L (3.6-5.1); Sodium* 128 mmol/L (135-149)
[2022-03-10 07:58] LABS: Creatinine* 0.9 mg/dL (0.5-1.5); Est. Creatinine Clearance* 45.76; Estimated Glomerular Filt Rate 67.92
[2022-03-10 07:59] LABS: Alanine Aminotransferase* 12 U/L (4-35); Alkaline Phosphatase* 63 U/L (40-150); Aspartate Amino Transferase* 27 U/L (12-35); Bilirubin Total* 0.7 mg/dL (0.1-1.5); Blood Urea Nitrogen* 24 mg/dL (7-30); Calcium* 8.6 mg/dL (8.4-10.6); Carbon Dioxide* 35 mmol/L (20-32); Glucose* 142 mg/dL (60-115); Hemoglobin A1C* 5.57 % (0-5.6); Magnesium* 1.4 mg/dL (1.5-2.6); Total Protein* 6.4 g/dL (6.0-8.3)
[2022-03-10 08:01] LABS: C Reactive Protein* 1.4 mg/dL (0.5-1.0)
[2022-03-10 08:08] LABS: NT Pro B Type NatriureticPept* 1300 PG/mL (0-125)
[2022-03-10 08:30] LABS: Thyroid Stimulating Hormone* 0.729 uIU/mL (0.270-4.20)
[2022-03-10 08:37] LABS: Troponin I* < 0.01 ng/mL (0.01-0.04)
[2022-03-10 09:02] LABS: Procalcitonin* 0.05 ng/mL (<0.50)
[2022-03-10] MEDS: predniSONE 20 MG TABLET 40 MG PO (09:11)
[2022-03-10] MEDS: ASPIRIN 81 MG TABLET EC PO (09:11)
[2022-03-10] MEDS: DOXYCYCLINE HYCLATE 100 MG CAPSULE PO ×2 (09:12→21:03)
[2022-03-10] MEDS: FUROSEMIDE 40 MG TABLET PO (09:12)
[2022-03-10] MEDS: GABAPENTIN 300 MG CAPSULE 600 MG PO ×2 (09:12→21:02)
[2022-03-10] MEDS: BUDESONIDE 0.5 MG/2ML NEB NEB ×2 (09:12→21:05)
[2022-03-10] MEDS: atenoloL 50 MG TABLET PO ×2 (09:12→21:03)
[2022-03-10] MEDS: POTASSIUM PHOS/SODIUM PHOS 250 MG TABLET PO ×2 (09:13→21:03)
[2022-03-10] MEDS: LOSARTAN POTASSIUM 50 MG TABLET 25 MG PO (09:13)
[2022-03-10] MEDS: SODIUM CHLORIDE 1 GM TABLET PO ×2 (09:13→21:04)
[2022-03-10] MEDS: MAGNESIUM IV 4 GM/100 ML PIGGYBACK IVPB (11:41)
[2022-03-10] MEDS: AMLODIPINE 10 MG TABLET PO (11:42)
--- NOTE | 2022-03-10 15:33 | PC.NURSE ---
AT BEGINNING OF SHIFT, PATIENT WAS ON 5L O2 PER NC AND SATS 94-95%. WAS ABLE TO WEAN PATIENT THROUGHOUT THE MORNING TO 2L AND SATS 90-92%. PATIENT GIVEN AEROBIKA AND HAS BEEN USING FREQUENTLY THROUGHOUT THE SHIFT. PATIENT REPORTS SHE IS COUGHING MORE TODAY AND ABLE TO COUGH SPUTUM UP. LS POSTERIORLY WITH EXPIRATORY WHEEZES. PATIENT AMBULATED IN HALLWAY WITH A1, WALKER AND GAIT BELT. AMBULATED WITH 2L O2 PER NC AND SATS 90-91% ON 2L WITH EXERTION. PATIENT DENIED SOB. DENIES PAIN OR N/V. TOLERATING REGULAR DIET.
--- NOTE | 2022-03-10 16:52 | PM.IMPN1 ---
Progress Note: A&P Assessment and plan (1) Acute on chronic respiratory failure with hypoxia and hypercapnia: Status: Acute Assessment and Plan: Untreated sleep apnea, COPD exacerbation, mild exacerbation of diastolic heart failure related to chronic hypertension and pulmonary hypertension RT is working with her and her so they get a good fitting mask and proper CPAP use, for her COPD exacerbation she is getting nebs, prednisone, doxycycline. I am using oral Lasix for a mild diuresis secondary to her underlying cardiac conditions which include chronic hypertension with LVH and pulmonary hypertension (2) Acute exacerbation of chronic obstructive pulmonary disease: Status: Acute Assessment and Plan: Continue doxy, prednisone burst with taper needed, nebs Smoking cessation (3) Pulmonary hypertension: Status: Acute Assessment and Plan: Gentle diuresis ongoing. (4) CO2 retention: Status: Acute Assessment and Plan: Resolved with appropriate cares yesterday (5) Hypertension: Status: Acute Assessment and Plan: Continue home regimen (6) Malignant neoplasm of ovary: Status: Acute Assessment and Plan: Reviewed and in remission currently Subjective Interval history: Daily Progress Note - Hospital Medicine Day #: 2 CC: Shortness of breath, fatigue OVERNIGHT UPDATES FROM STAFF & MED, LAB, IMAGING UPDATES Patient feels as if she has made some good strides. Her appetite has returned. She feels like she slept pretty good last night with the CPAP. Our RT was able to work with her home CPAP with O2 bleed in, 5 L, and she wore this last night. There is some face mask leak. RT is aware. Review of her vital signs are reassuring. She has had a decrease in her O2 requirement down to 2 L my nasal cannula. Weight still at 104 kilos CBC shows a mild bump in her leukocytosis but she is on steroids Hemoglobin stable MCV elevated Platelets normal PH is essentially stable at 7.4 CO2 retention has decreased and is now in the high 40s. Chronic hyponatremia noted Stable renal function Magnesium noted to be low at 1.4 BNP has decreased nicely from 2240 down to 1300 Echo done yesterday Shows hyperdynamic EF with LVH Increased right atrial pressure dilated right atrium Review of Systems: See subjective Cardiac: No new chest pain/pressure/palpitations. Respiratory: no new dyspnea. GI: No abdominal bloating Objective: Vitals: see above Lungs: Expiratory wheezing. Cardiac: S1S2. No harsh murmurs Disposition/Potential discharge - Likely to return to previous living situation. Total time is 35 minutes with greater than 50% spent in counseling and coordination of care. Exam Const: Vital Signs, click to edit/add: Vital Signs - 24 hr 03/09/22 19:18 03/09/22 23:00 03/10/22 00:00 Temperature 98.7 F 98.7 F Pulse Rate [Pulse Oximeter] 86 80 80 Pulse Rate [Right Pulse Oximeter] 86 80 80 Respiratory Rate 18 20 20 Blood Pressure [Le ft Arm] 135/67 116/71 Pulse Oximetry 92 91 03/10/22 05:17 03/10/22 07:00 03/10/22 07:30 Temperature 98.2 F 98.1 F Pulse Rate [Pulse Oximeter] 80 70 Pulse Rate [Right Pulse Oximeter] 75 75 Respiratory Rate 18 18 20 Blood Pressure [Le ft Arm] 170/94 H 119/94 H Pulse Oximetry 91 94 03/10/22 08:00 03/10/22 09:00 03/10/22 11:00 Temperature 98 F Pulse Rate [Pulse Oximeter] 70 Pulse Rate [Right Pulse Oximeter] Respiratory Rate 22 Blood Pressure [Le ft Arm] 124/69 Pulse Oximetry 94 93 92 Labs Labs: Laboratory Results - last 24 hr 03/09/22 03/10/22 03/10/22 01:35 06:31 06:31 WBC RBC Hgb Hct MCV MCH MCHC RDW Coeff of Ezra Plt Count Neut % (Auto) Lymph % (Auto) [place] % (Auto) Eos % (Auto) Baso % (Auto) Neut # (Auto) Lymph # (Auto) [place] # (Auto) Eos # (Auto) Baso # (Auto) Abs Immat Gran (auto) ABG pH Cancelled ABG pCO2 Cancelled ABG pO2 Cancelled ABG HCO3 Cancelled ABG Total CO2 Cancelled ABG O2 Saturation Cancelled ABG Base Excess Cancelled VBG pH VBG pCO2 VBG pO2 VBG HCO3 Sodium 128 L Potassium 4.8 Chloride 90 L Carbon Dioxide 35 H BUN 24 Creatinine 0.9 Estimated Creat Clear 45.76 Glucose 142 H Hemoglobin A1c 5.57 Calcium 8.6 Magnesium 1.4 L Total Bilirubin 0.7 AST 27 ALT 12 Alkaline Phosphatase 63 Troponin I < 0.01 L C-Reactive Protein 1.4 H NT-Pro-B Natriuret Pep 1300 H Total Protein 6.4 Albumin 3.8 Procalcitonin 0.05 TSH 03/10/22 03/10/22 03/10/22 06:31 06:31 06:31 WBC 11.55 H RBC 4.25 Hgb 14.0 Hct 43.4 MCV 102 H MCH 33 MCHC 32 RDW Coeff of Ezra 13.4 Plt Count 240 Neut % (Auto) 86.4 H Lymph % (Auto) 6.1 L [place] % (Auto) 7.1 Eos % (Auto) 0.0 Baso % (Auto) 0.1 Neut # (Auto) 10.00 H Lymph # (Auto) 0.70 L [place] # (Auto) 0.80 Eos # (Auto) 0.00 Baso # (Auto) 0.00 Abs Immat Gran (auto) 0.04 ABG pH ABG pCO2 ABG pO2 ABG HCO3 ABG Total CO2 ABG O2 Saturation ABG Base Excess VBG pH 7.470 H VBG pCO2 47 VBG pO2 104.0 H VBG HCO3 34 H Sodium Potassium Chloride Carbon Dioxide BUN Creatinine Estimated Creat Clear Glucose Hemoglobin A1c Calcium Magnesium Total Bilirubin AST ALT Alkaline Phosphatase Troponin I C-Reactive Protein NT-Pro-B Natriuret Pep Total Protein Albumin Procalcitonin TSH 0.729
--- NOTE | 2022-03-10 19:53 | PC.NURSE ---
Pt SBA with walker, up in chair at supper Reg. diet tolerated 100%. at bedside. Pt continues on 2lO2 90-94%. Needs 5lo2 on with Cpap.
[2022-03-10] MEDS: SIMVASTATIN 40 MG TABLET PO (21:03)
[2022-03-10] MEDS: ENOXAPARIN 40 MG/0.4 ML INJ SUBCUT (21:04)
[2022-03-11 03:14] VITALS: BP 146/73; PULSE 63; RESP 20; TEMP 36.5; O2SAT 93
--- NOTE | 2022-03-11 05:27 | PC.NURSE ---
SHIFT NOTE [id number]: PT IS PLEASANT AND COOPERATIVE. AMBULATES WITH WALKER, GB AND SBA. ACTIVITY IS TOLERATED WELL. PT DENIES CHEST PAIN, SOB, N/V. VSS AND WNL WITH THE USE OF SUPPLEMENTAL OXYGEN. PT ON 2L NC WHEN AWAKE. PT WEARS CPAP AT HS FOR MONIKA. 3-4L O2 BLED INTO CPAP TO KEEP O2 SATS >88%. PT NEEDED CPAP MASK RE-ADJUSTED MULTIPLE TIMES THROUGHOUT NIGHT; O2 SATS RECOVERED QUICKLY WITH GOOD MASK SEAL. BILATERAL BASILAR EXPIATORY WHEEZES NOTED UPON AUSCULTATION.
[2022-03-11 07:23] LABS: Hematocrit 43.3 % (33.0-51.0); Hemoglobin* 13.9 gm/dL (12.0-16.0); Mean Corpuscular HGB Conc 32 gm/dL (32-36); Mean Corpuscular Hemoglobin 33 pg (26-34); Mean Corpuscular Volume 102 fL (80-100); Platelet Count* 246 K/uL (140-440); Red Blood Count 4.25 m/uL (4.00-5.20); White Blood Count* 11.81 K/uL (4.50-11.00)
[2022-03-11 07:27] LABS: Slide Review Reflex No
[2022-03-11] MEDS: predniSONE 20 MG TABLET 40 MG PO (07:35)
[2022-03-11 07:50] LABS: Chloride* 91 mmol/L (96-114); Potassium* 4.4 mmol/L (3.6-5.1); Sodium* 130 mmol/L (135-149)
[2022-03-11 07:53] LABS: Creatinine* 0.9 mg/dL (0.5-1.5); Est. Creatinine Clearance* 45.76; Estimated Glomerular Filt Rate 67.92
[2022-03-11 07:54] LABS: Blood Urea Nitrogen* 30 mg/dL (7-30); Calcium* 8.7 mg/dL (8.4-10.6); Carbon Dioxide* 33 mmol/L (20-32); Glucose* 104 mg/dL (60-115)
[2022-03-11 07:56] LABS: C Reactive Protein* 0.9 mg/dL (0.5-1.0)
[2022-03-11 08:01] LABS: NT Pro B Type NatriureticPept* 771 PG/mL (0-125)
[2022-03-11 08:09] LABS: Procalcitonin* 0.04 ng/mL (<0.50)
[2022-03-11] MEDS: FUROSEMIDE 40 MG TABLET PO (08:32)
[2022-03-11] MEDS: DOXYCYCLINE HYCLATE 100 MG CAPSULE PO ×2 (08:33→20:39)
[2022-03-11] MEDS: LOSARTAN POTASSIUM 50 MG TABLET 25 MG PO (08:33)
[2022-03-11] MEDS: GABAPENTIN 300 MG CAPSULE 600 MG PO ×2 (08:34→20:39)
[2022-03-11] MEDS: SODIUM CHLORIDE 1 GM TABLET PO ×2 (08:35→20:39)
[2022-03-11] MEDS: ASPIRIN 81 MG TABLET EC PO (08:35)
[2022-03-11] MEDS: atenoloL 50 MG TABLET PO ×2 (08:36→20:37)
[2022-03-11] MEDS: AMLODIPINE 10 MG TABLET PO (08:36)
[2022-03-11] MEDS: BUDESONIDE 0.5 MG/2ML NEB NEB ×2 (08:36→21:20)
[2022-03-11 08:50] VITALS: BP 138/74; PULSE 68; RESP 20; TEMP 36.8; O2SAT 92
[2022-03-11] MEDS: POTASSIUM PHOS/SODIUM PHOS 250 MG TABLET PO ×2 (08:57→20:39)
[2022-03-11 11:00] VITALS: BP 123/66; PULSE 68; RESP 20; TEMP 37.2; O2SAT 91
[2022-03-11] MEDS: IPRAT-ALBUT 0.5-2.5 MG/3 ML NEB 1 NEB IH ×3 (11:07→23:42)
[2022-03-11 15:00] VITALS: BP 121/63; PULSE 67; PULSE 89; RESP 24; TEMP 37.3; O2SAT 89
--- NOTE | 2022-03-11 16:41 | PM.IMPN1 ---
Progress Note: A&P Assessment and plan (1) Acute on chronic respiratory failure with hypoxia and hypercapnia: Status: Acute Assessment and Plan: She continues to benefit from CPAP use as well as oxygen supplementation. Reviewed with her the indication for these 2 lines of interventions. Answered her questions are satisfaction. Her was present and answered his questions as well. (2) Acute exacerbation of chronic obstructive pulmonary disease: Status: Acute Assessment and Plan: This is previously not diagnosed. Responding to interventions. (3) Pulmonary hypertension: Status: Acute Assessment and Plan: Continue with slow diuresis efforts. Continue with oxygen supplementation. (4) MONIKA on CPAP: Status: Acute Assessment and Plan: Hypercapnia improved with CPAP use. She tells me that she was not using her CPAP machine at home as prescribed. She attempted to do so but then gave up after a couple of days of trial. She understands she needs to continue to use the CPAP machine indefinitely hereafter. (5) Obesity: Status: Acute Assessment and Plan: Initiated discussion with patient about the importance of taking care obstructive sleep apnea in order to better address the obesity problem that she struggles with. Basal metabolic rate improved substantially with efforts to treat obstructive sleep apnea. (6) Tobacco dependence: Status: Acute Assessment and Plan: Discussed with her the importance of achieving and maintaining total cessation from tobacco use and exposure. Discussed various treatment options. Appears to be moving from the pre contemplative to the contemplative stages of considering this. (7) CO2 retention: Status: Acute (8) Hypoxia: Status: Acute (9) Weakness: Status: Acute Assessment and Plan: Much improved from initial presentation. (10) Hypertension: Status: Acute Assessment and Plan: Continue with supportive interventions. (11) Hyperlipidemia: Status: Acute (12) Chronic hyponatremia: Status: Acute Assessment and Plan: Slowly improving with fluid restriction efforts. (13) Acute hyponatremia: Status: Acute (14) Malignant neoplasm of ovary: Status: Acute Assessment and Plan: Seemingly in remission and stable. Plan Consider possible discharge from the hospital in the next 24-48 hours if condition is stable. Time Spent With Patient Total time spent: 50 minutes, greater than 50% of the time spent in counseling Subjective Time Seen by Provider: 09:00 Date Seen: 03/11/22 Interval history: She notes improvement in multiple symptoms. Frightened about the possibility of going home soon. Still has dyspnea with exertion. Less dyspnea at rest. Cough is certainly improving. Weakness is slowly improving as well. Appetite is slowly improving. Denies chest heaviness, pressure, tightness, or pain. Denies nausea or vomiting. Denies syncope or near-syncope. Exam Narrative: Exam Narrative: Laying in her bed with head of bed elevated at 45?. Appears comfortable. No acute distress. Resting room air oxygen saturations ranged between 89-92% as I assess her. With movement or speech her saturations will drop into 87-88%. Saturations than return to the 89-92% when she is at rest once again. Alert and oriented to person, place, time, situation. Articulate and cooperative. Anxious disposition. Neck is full. Midline trachea. No lymphadenopathy. Lungs with scattered rhonchi and wheezes, minimal. No rales. Chest wall excursions are full. Heart tones with regular rhythm, normal S1-S2. Abdomen is obese, active bowel sounds, soft, nontender. Extremities with trace edema pretibially bilaterally. Capillary refill less than 3 seconds in upper extremities. Moves all 4 extremities. Cranial nerves 3-12 grossly intact. No tremor or asterixis or ataxia. Independent in transfers, station, and gait. Once again her saturations drop with movement. Skin is warm, dry, intact. No cyanosis. Const: Vital Signs, click to edit/add: Vital Signs - 24 hr 03/10/22 19:00 03/10/22 20:00 03/10/22 23:15 Temperature 98.2 F 98.2 F 98.2 F Pulse Rate [Pulse Oximeter] 74 77 71 Pulse Rate [Right Pulse Oximeter] 77 71 Respiratory Rate 16 18 20 Blood Pressure [Le ft Arm] 124/71 136/69 114/61 Pulse Oximetry 90 90 89 03/11/22 03:14 03/11/22 08:50 03/11/22 11:00 Temperature 97.7 F 98.2 F 99 F Pulse Rate [Pulse Oximeter] 63 68 68 Pulse Rate [Right Pulse Oximeter] Respiratory Rate 20 20 20 Blood Pressure [Le ft Arm] 146/73 H 138/74 123/66 Pulse Oximetry 93 92 91 03/11/22 15:00 Temperature 99.1 F Pulse Rate [Pulse Oximeter] 67 Pulse Rate [Right Pulse Oximeter] Respiratory Rate 24 Blood Pressure [Le ft Arm] 121/63 Pulse Oximetry 89 Labs Labs: Laboratory Results - last 24 hr 03/11/22 03/11/22 06:26 06:26 WBC 11.81 H RBC 4.25 Hgb 13.9 Hct 43.3 MCV 102 H MCH 33 MCHC 32 Plt Count 246 Sodium 130 L Potassium 4.4 Chloride 91 L Carbon Dioxide 33 H BUN 30 Creatinine 0.9 Estimated Creat Clear 45.76 Glucose 104 Calcium 8.7 Magnesium 2.0 C-Reactive Protein 0.9 NT-Pro-B Natriuret Pep 771 H Procalcitonin 0.04
--- NOTE | 2022-03-11 17:27 | PC.NURSE ---
07-19: pt pleasant and cooperative. SBA with walker. No c/o pain. Expiratory wheezing auscultated. pt tolerating nebs and is working independently with aerobika, pt coughing up sputum after treatments. Pt on 1.5-2L O2 via NC while awake and maintaining 88-93%. Pt desats to 75% when she falls asleep - with CPAP placement and 4L O2 - sats are >88%. Other VSS. Pt walked halls today and tolerated well.
[2022-03-11 20:25] VITALS: BP 125/64; PULSE 71; RESP 20; TEMP 36.9; O2SAT 90
[2022-03-11] MEDS: ENOXAPARIN 40 MG/0.4 ML INJ SUBCUT (20:37)
[2022-03-11] MEDS: SIMVASTATIN 40 MG TABLET PO (20:37)
[2022-03-11 23:30] VITALS: BP 127/60; PULSE 66; RESP 20; TEMP 37.1; O2SAT 91
[2022-03-12 03:00] VITALS: BP 133/65; PULSE 60; RESP 18; TEMP 37.1; O2SAT 96
[2022-03-12] MEDS: IPRAT-ALBUT 0.5-2.5 MG/3 ML NEB 1 NEB IH ×2 (04:53→12:30)
--- NOTE | 2022-03-12 05:54 | REH.OT ---
SHIFT NOTE [id number]: PT PLEASANT AND COOPERATIVE. VSS AND WNL WITH THE USE OF SUPPLEMENTAL OXYGEN; AFEBRILE. WHEN AWAKE PT ON 2L VIA NC. NOC PT WEARS CPAP; 3-5L BLED INTO CPAP TO KEEP SATS >88%. PT UTILIZES CALL LIGHT APPROPRIATELY. PT DESATS TO LOW 80'S WITH ACTIVITY. RECOVERS WELL WHEN OXYGEN REAPPLIED. AMBULATING WELL WITH WALKER, GB, SBA.
[2022-03-12] MEDS: DOCUSATE SODIUM 100 MG CAPSULE PO (06:45)
[2022-03-12 07:00] VITALS: BP 135/71; PULSE 68; RESP 20; TEMP 36.6; O2SAT 91
[2022-03-12 07:30] VITALS: PULSE 68; RESP 20
[2022-03-12] MEDS: atenoloL 50 MG TABLET PO (08:32)
[2022-03-12] MEDS: LOSARTAN POTASSIUM 50 MG TABLET 25 MG PO (08:33)
[2022-03-12] MEDS: predniSONE 20 MG TABLET 40 MG PO (08:33)
[2022-03-12] MEDS: AMLODIPINE 10 MG TABLET PO (08:33)
[2022-03-12] MEDS: FUROSEMIDE 40 MG TABLET PO (08:34)
[2022-03-12] MEDS: ASPIRIN 81 MG TABLET EC PO (08:34)
[2022-03-12] MEDS: GABAPENTIN 300 MG CAPSULE 600 MG PO (08:34)
[2022-03-12] MEDS: DOXYCYCLINE HYCLATE 100 MG CAPSULE PO (08:34)
[2022-03-12] MEDS: BUDESONIDE 0.5 MG/2ML NEB NEB (08:34)
[2022-03-12] MEDS: polyethylene glycoL 3350 17 GM PACK PO (08:34)
[2022-03-12] MEDS: SODIUM CHLORIDE 1 GM TABLET PO (08:35)
[2022-03-12] MEDS: POTASSIUM PHOS/SODIUM PHOS 250 MG TABLET PO (08:35)
[2022-03-12 11:00] VITALS: BP 136/59; PULSE 67; RESP 20; TEMP 36.7; O2SAT 91
--- NOTE | 2022-03-12 14:46 | PC.NURSE ---
PATIENT'S VSS AND AFEBRILE. O2 SATS AT 95%1L PER NC THIS AM. ATTEMPTED TO TRY PATIENT ON ROOM AIR BUT SATS DECREASED TO 87%. REPLACED 1L O2 PER NC AND SATS 90-94%1L. LS WITH INSPIRATORY AND EXPIRATORY WHEEZING. PRODUCTIVE COUGH. SL DC'D. REVIEWED DC INSTRUCTIONS WITH PATIENT AND HER . PATIENT INSTRUCTED TO WEAR HER HOME O2 AT 2L. INITIALLY NEW PRESCRIPTIONS WERE SENT TO [facility] BUT THEY ARE NOT OPEN UNTIL Sunday. DISCUSSED WITH PATIENT, AND PRESCRIPTIONS CALLED INTO [facility] PER PATIENT REQUEST AND MESSAGE LEFT WITH [facility] TO CANCEL PRESCRIPTIONS. PATIENT ALSO SENT WITH PRESCRIPTION FOR NEBULIZER MACHINE AND [facility] CONFIRMED THEY HAVE ONE IN STOCK. PATIENT DC'D HOME VIA .
--- NOTE | 2022-03-12 16:21 | PM.DS1 ---
DS: Providers Provider Date of admission: 03/09/22 09:23 Primary care physician: Silver Whalen MD Admitting Clinician: Jose Fischer MD Attending Physician on discharge: Eneida Joiner MD DS: Diagnosis Discharge Diagnosis (1) Acute on chronic respiratory failure with hypoxia and hypercapnia: Status: Acute (2) Acute exacerbation of chronic obstructive pulmonary disease: Status: Acute (3) Hypertensive heart disease with acute on chronic diastolic congestive heart failure: Status: Acute (4) Left ventricular hypertrophy due to hypertensive disease: Status: Acute (5) Hypoxia: Status: Acute (6) CO2 retention: Status: Acute (7) Tobacco dependence: Status: Acute (8) MONIKA on CPAP: Status: Acute (9) Weakness: Status: Acute (10) Chronic hyponatremia: Status: Acute (11) Pulmonary hypertension: Status: Acute (12) Acute hyponatremia: Status: Acute (13) Acute hyperkalemia: Status: Acute (14) Obesity: Status: Acute (15) Malignant neoplasm of ovary: Status: Acute (16) Hypertension: Status: Acute (17) Hyperlipidemia: Status: Acute DS: Summary Time Spent with Patient Time attestation: Total time spent providing and/or coordinating discharge services: Time spent: Greater than 30 minutes Exam Narrative: Exam Narrative: She is alert, oriented to self, time, place, situation. She seems to be forgetful at times. We write down instructions for her so she can refer to these in struck shins in the written format. In particular we notice this with regard to reviewing with her how to use her oxygen therapy. Independent transfer, station, and gait. No tremor, asterixis, or ataxia. On auscultation of her lungs she still has some scattered rhonchi and end inspiratory wheezing right more so than left. Minimal end inspiratory rales in the right base. Heart tones with regular rhythm, normal S1-S2. Abdomen is obese, active bowel sounds, soft, nontender. Extremities without edema. Const: Vital Signs, click to edit/add: Vital Signs - 24 hr 03/11/22 20:25 03/11/22 23:30 03/12/22 03:00 Temperature 98.4 F 98.7 F 98.7 F Pulse Rate [Pulse Oximeter] 71 66 60 Respiratory Rate 20 20 18 Blood Pressure [Le ft Arm] 125/64 127/60 133/65 Pulse Oximetry 90 91 96 03/12/22 07:00 03/12/22 07:30 03/12/22 11:00 Temperature 98 F 98.1 F Pulse Rate [Pulse Oximeter] 68 68 67 Respiratory Rate 20 20 20 Blood Pressure [Le ft Arm] 135/71 136/59 L Pulse Oximetry 91 91 Discharge Plan Discharge Disposition: Home, Self-Care Date of Admission: 03/09/22 09:23 Attending Provider on Discharge: Deo Babin Primary Care Provider: Silver Whalen Condition: Improved Anticipated Discharge Date/Time: 03/12/22 15:01 Discharge Medications: New furosemide 40 mg Tablet 40 mg PO DAILY 30 Days Qty: 30 0RF doxycycline hyclate 100 mg Capsule 100 mg PO BID 4 Days Qty: 8 0RF ipratropium-albuterol 0.5 mg-3 mg(2.5 mg base)/3 mL Solution For Nebulization 1 neb inhalation Q6H 30 Days Qty: 100 0RF prednisone 20 mg Tablet 40 mg PO DAILYWM 2 Days Qty: 4 0RF docusate sodium 100 mg Capsule 100 mg PO BID PRN (Reason: Constipation) 30 Days Qty: 60 0RF budesonide [Pulmicort] 0.5 mg/2 mL Suspension For Nebulization 0.5 mg NEB BID 30 Days Qty: 120 0RF Continued amlodipine 10 mg tablet 10 mg PO DAILY 0RF Label Comments: TAKE ONE TABLET BY MOUTH DAILY sodium chloride 1 gram tablet 1,000 mg PO BID 0RF Label Comments: TAKE ONE TABLET BY MOUTH TWICE A DAY simvastatin 40 mg tablet 40 mg PO HS 0RF Label Comments: TAKE ONE TABLET BY MOUTH AT BEDTIME losartan 25 mg tablet 25 mg PO DAILY 0RF Label Comments: TAKE ONE TABLET (25MG) BY MOUTH ONCE DAILY gabapentin 300 mg capsule 600 mg PO BID 0RF Label Comments: TAKE TWO CAPSULES BY MOUTH TWICE A DAY atenolol 50 mg tablet 50 mg PO BID 0RF Label Comments: TAKE ONE TABLET BY MOUTH TWICE A DAY aspirin 81 mg capsule 81 mg PO DAILY 0RF Discharge Orders: Discharge Order (Routine); Ordered 03/12/22 Ordered By: Deo Babin Patient Education: Furosemide (By mouth), Doxycycline (By mouth), Prednisone (By mouth), Laxative, Stool Softeners (By mouth), Budesonide (By breathing), Ipratropium/Albuterol (By breathing), Heart Failure (GEN), Sleep Apnea (GEN), How to Stop Smoking (GEN) Activity Level: Activity as Tolerated Discharge Diet: Regular Follow Up Appointments: Silver Whalen MD [Primary Care Provider] - 03/15/22 10:45 am ( Please arrive 15 minutes prior for labs. ) Forms: [employer] Info Instructions Discharge Comment: Oxygen: 2 LPM in DAY, 4 LPM in NIGHT
== END 2022-03-12 14:40 | disposition home or self-care (01) | DRG 189 ==
LOC: ED 03:21 → MEDSURG 04:04
PROVIDERS: Internal Medicine; Admitting Provider Family Medicine; Emergency Provider Family Medicine; PCP Family Medicine; Visit Provider Family Medicine
DX: J96.22 Acute and chronic respiratory failure with hypercapnia (principal); I50.33 Acute on chronic diastolic (congestive) heart failure; J44.1 Chronic obstructive pulmonary disease with (acute) exacerbation; E87.1 Hypo-osmolality and hyponatremia; J96.21 Acute and chronic respiratory failure with hypoxia; I27.20 Pulmonary hypertension, unspecified; E87.5 Hyperkalemia; G47.33 Obstructive sleep apnea (adult) (pediatric); F17.210 Nicotine dependence, cigarettes, uncomplicated; G89.29 Other chronic pain; E66.01 Morbid (severe) obesity due to excess calories; E78.5 Hyperlipidemia, unspecified; I11.0 Hypertensive heart disease with heart failure; Z68.38 Body mass index [BMI] 38.0-38.9, adult; Z85.43 Personal history of malignant neoplasm of ovary
CPT/HCPCS: 36415; 36600; 71260; 80048; 80053; 82803; 83036; 83735; 83880; 84145; 84443; 84484; 85025; 85027; 85379; 85610; 85730; 86140; 87502; 87634; 87635; 93005; 93306; 94640; 94664; 94761; 99285; A9270; G0378; J1650; J1940; J2930; J3475; J7512; J7626; Q9967; S5010

== ENCOUNTER 2022-04-07 08:18 | Outpatient (CLI) | payer MEDICARE, SELFPAY ==
[2022-04-07 10:54] LABS: Chloride* 97 mmol/L (96-114)
[2022-04-07 10:55] LABS: Sodium* 135 mmol/L (135-149)
[2022-04-07 10:57] LABS: Bilirubin Total* 0.3 mg/dL (0.1-1.5); Carbon Dioxide* 30 mmol/L (20-32); Cholesterol* 181 mg/dL (90-199); Creatinine* 1.1 mg/dL (0.5-1.5); Estimated Glomerular Filt Rate 53 ml/min; Total Protein* 6.9 g/dL (6.0-8.3)
[2022-04-07 10:58] LABS: Alanine Aminotransferase* 16 U/L (4-35); Alkaline Phosphatase* 73 U/L (40-150); Aspartate Amino Transferase* 24 U/L (12-35); Blood Urea Nitrogen* 25 mg/dL (7-30); Calcium* 9.3 mg/dL (8.4-10.6); Glucose* 100 mg/dL (60-115); HDL Cholesterol* 43 mg/dL (>=50); LDL Cholesterol Calculated 92 mg/dL (<100); Triglycerides* 231 mg/dL (40-149)
[2022-04-07 11:15] LABS: Vitamin D 25 Hydroxy* 29 ng/mL (30-80)
== END 2022-04-07 08:19 | disposition home or self-care (01) ==
PROVIDERS: PCP Family Medicine; Visit Provider Family Medicine
DX: E55.9 Vitamin D deficiency, unspecified (principal); E78.5 Hyperlipidemia, unspecified; R79.89 Other specified abnormal findings of blood chemistry; I10 Essential (primary) hypertension; G62.9 Polyneuropathy, unspecified
CPT/HCPCS: 80053; 80061; 82306

== ENCOUNTER 2022-04-12 10:10 | Outpatient (CLI) | payer MEDICARE, SELFPAY ==
--- NOTE | 2022-04-12 10:15 | CRLHL7_ITS ---
For Patients: As a result of the Century Cures Act, medical imaging exams and procedure reports are released immediately into your electronic medical record. You may view this report before your referring provider. If you have questions, please contact your health care provider. BILATERAL SCREENING MAMMOGRAM WITH COMPUTER-AIDED DETECTION AND TOMOSYNTHESIS TECHNIQUE: CC and MLO views were obtained. These mammographic images have been obtained using full-field digital technique. These mammographic images were interpreted with the benefit of computer-aided detection. Breast Tomosynthesis was used in this interpretation. COMPARISON FILM: 04/11/2021, 03/16/2020, 02/10/2019. FINDINGS: There are scattered areas of fibroglandular density IMPRESSION: There is no radiographic evidence for malignancy. ASSESSMENT: BI-RADS Category 2: Benign RECOMMENDATION: Routine screening mammogram in 1 year. A lay language report of this examination will be provided to the patient. Gray Wright M.D. Diagnostic Radiologist [email or web address] [place]/[email or web address]/Dictated by: Gray Wright MD @ 04/12/2022 12:13:00 PM (Electronically Signed)
--- OUTSIDE RECORDS SUMMARY | 2022-04-19 01:39 | XMS_ITS | Encounter Summary ---
:1950 Author Organization [facility] Address [address] [place] [address] Care Team Providers Name Role Phone Elsewhere, Pcp Primary Care Provider Unavailable Encounter Details Date Type Department Care Team Description 07/18/2021 Hospital Encounter Department of Rodríguez, Damaris Wiley Pneu mothorax Trauma Initial; Radiology, Sean ZAPIEN C.N.P., Fracture Rib Single Closed Initial Right [facility] [address] [place], [place] [address] [place] [id number] [place], [place] [phone] (Work) [phone] Social History Tobacco Use Types Packs/Day Years Used Date Smoking Tobacco: Every Day Cigarettes 0.5 50 Smokeless Tobacco: Never Alcohol Habits Answer Date Recorded How often do you have a drink containing 4 or more times a w gakona 07/18/2021 alcohol? How many drinks containing alcohol do you have 1 or 2 07/18/2021 on a typical day when you are drinking? How often do you have six or more drinks on one Never 07/18/2021 occasion? Comment: occassional 07/01/2021 Social Isolation Answer Date Recorded In a typical week, how many times do you Once a week 07/18/2021 talk on the phone with family, friends, or neighbors? How often do you get together with friends Not asked or relatives? How often do you attend yarsani or sabianist More than 4 time s per year 07/18/2021 services? Do you belong to any clubs or organizations Yes 07/18/2021 such as yarsani groups, unions, fraternal or athletic groups, or school groups? How often do you attend meetings of the 1 to 4 times per yea r 07/18/2021 clubs or organizations you belong to? Are you now , , , 07/18/2021 , never or living with a partner? Physical Activity Answer Date Recorded On average, how many days per week do you engage in moderate to 2 days 07/18/2021 strenuous exercise (like walking fast, running, jogging, dancing, swimming, biking, or other activities that cause a light or heavy sweat)? On average, how many minutes do you engage in exercise at th is 30 min 07/18/2021 level? Stress Answer Date Recorded Do you feel stress - tense, restless, nervous, or anxious, N ot at all 07/18/2021 or unable to sleep at night because your mind is troubled all the time - these days? Financial Resource Strain Answer Date Recorded How hard is it for you to pay for the very basics like Not h balaji at all 07/18/2021 food, housing, medical care, and heating? Food Insecurity Answer Date Recorded Within the past 12 months, you worried that your food would Never true 07/18/2021 run out before you got money to buy more. Within the past 12 months, the food you bought just didn't N ever true 07/18/2021 last and you didn't have money to get more. Transportation Needs Answer Date Recorded In the past 12 months, has lack of transportation kept you f rom No 07/18/2021 medical appointments or from getting medications? In the past 12 months, has lack of transportation kept you f rom No 07/18/2021 meetings, work, or getting things needed for daily living? Housing Stability Answer Date Recorded In the last 12 months, was there a time when you were not ab le No 07/18/2021 to pay the mortgage or rent on time? In the last 12 months, how many places have you lived? 1 07/18/2021 In the last 12 months, was there a time when you did not hav e a No 07/18/[address] sleep or slept in a half-way (including now)? Education Answer Date Recorded What is the highest level of school you have Some college, n o degree 07/18/2021 completed or the highest degree you have received? Sex Assigned at Date Recorded Not on file documented as of this encounter Medications at Time of Discharge Medication Sig Dispensed Refills Start Date End Date acetaminophen (TYLENOL) 500 Take 2 tablets 0 06/11 mg tablet (1,000 mg total) by mouth every 6 (six) hours as needed for pain. amLODIPine (NORVASC) 10 mg Take 1 tablet (10 mg 0 07/03/2021 tablet total) by mouth daily. aspirin [address] tablet Take 81 mg by mouth 0 daily. calcium carbonate-vitamin Daily 0 D3 500 mg(1,250mg) -125 unit per tablet gabapentin (NEURONTIN) 300 Take 300 mg by mouth 0 mg capsule 4 (four) times a day. losartan (COZAAR) 50 mg Take 0.5 tablets (25 mg tota l) by mouth daily. Half tablet daily, 25mg daily dose (recent drop in dose) 0 07/03/2021 tablet HOLD upon discharge. Please follow up with PCP within 1 we ek. simvastatin (ZOCOR) 40 mg Take 40 mg by mouth 0 0 04/11/2021 tablet at bedtime. sodium chloride 1 gram Take 1 g by mouth 2 0 05/12 tablet (two) times a day with meals. documented as of this encounter Plan of Treatment Not on filedocumented as of this encounter Procedures Procedure Name Priority Date/Time Associated Comments Diagnosis DX CHEST AP OR PA RAD - Routine 07/18/2021 12:11 Pneumothorax Traum a Results for this AND LATERAL 2 (most inpatients PM TESTER WASTE DISPOSAL LEAKAGE Initial procedure are in VIEWS and all Fracture Rib Single the resu lts outpatients) Closed Initial section. Right documented in this encounter Results DX Chest AP or PA and Lateral 2 Views (07/18/2021 12:11 PM TESTER WASTE DISPOSAL LEAKAGE) Anatomical Region Laterality Modality Chest, Thoracic RST LOS, Thoracic ARZ LOS, Thoracic N/A Digital Radiography FLA LOS Specimen (Source) Anatomical Collection Method Collection Time Re ceived Time Location / / Volume Laterality 07/18/2021 12:16 PM TESTER W[employer]POSAL [employer]AKAGE Impressions 07/18/2021 12:23 PM TESTER WASTE DISPOSAL LEAKAGE Since 07/03/2021, the previously seen tiny right apical pneumothorax is no longer definitively i dentified although a possible candidate trace right apical pneumothorax is visua lized (seen at the arrow, enlarged screen capture provided). Subcutaneous e mphysema has resolved. Increased lung volumes. Remainder not significantly layne nged. Bibasilar lung atelectasis. Right IJ chest port with tip in the upper righ t atrium. Enlarged cardiac silhouette. Minimally displaced fracture of the righ t posterior fifth rib. Narrative 07/18/2021 12:23 PM TESTER WASTE DISPOSAL LEAKAGE EXAM: ??DX CHEST AP OR PA AND LATERAL 2 VIEWS Procedure Note Dallin Hannah M.D. - 07/18/2021Format ting of this note might be different from the original. EXAM: DX CHEST AP OR PA AND LATERAL 2 EWS IMPRESSION: Since 07/03/2021, the previously seen ti ny right apical pneumothorax is no longer definitively i dentified although a possible candidate trace right apical pneumothorax is visua lized (seen at the arrow, enlarged screen capture provided). Subcutaneous e mphysema has resolved. Increased lung volumes. Remainder not significantly layne nged. Bibasilar lung atelectasis. Right IJ chest port with tip in the upper righ t atrium. Enlarged cardiac silhouette. Minimally displaced fracture of the righ t posterior fifth rib. Damaris Arreguin APRN C.N.P., M.S.N. [facility]G DIAGNOST[facility] PROCEDURES documented in this encounter Visit Diagnoses Diagnosis Pneumothorax Trauma Initial Fracture Rib Single Closed Initial Right documented in this encounter Care Teams Income Tax Advisor Relationship Specialty Start Date End Date Elsewhere, Pcp PCP - General Family Medicine 07/01/21 documented as of this encounter
--- OUTSIDE RECORDS SUMMARY | 2022-04-19 01:39 | XMS_ITS | Clinical Summary ---
:1950 Author Organization [facility] Address [address] [place] [address] Care Team Providers Name Role Phone Elsewhere, Pcp Primary Care Provider Unavailable Source Comments Patient records contain information from all sites at [facility]. For routine questions regarding patient records, call [phone] during business hours, M-F 8:00 AM - 5:00 PM Central Time. Record requests for emergency care only can be directed to [phone] at any time.[facility] Allergies Active Allergy Reactions Severity Noted Date Comments Duloxetine Hives 07/01/2021 Medications Medication Sig Dispensed Refills Start Date End Date Status aspirin [address] tablet Take 81 mg by 0 Active mouth daily. calcium Daily 0 Active carbonate-vitamin D3 500 mg(1,250mg) -125 unit per tablet gabapentin (NEURONTIN) Take 300 mg by 0 Active 300 mg capsule mouth 4 (four) times a day. simvastatin (ZOCOR) 40 Take 40 mg by 0 04/11/2021 Active mg tablet mouth at bedtime. sodium chloride 1 gram Take 1 g by mouth 0 1 Active tablet 2 (two) times a day with meals. acetaminophen (TYLENOL) Take 2 tablets 0 07/03/2021 Active 500 mg tablet (1,000 mg total) by mouth every 6 (six) hours as needed for pain. amLODIPine (NORVASC) 10 Take 1 tablet (10 0 07/03/20 21 Active mg tablet mg total) by mouth daily. losartan (COZAAR) 50 mg Take 0.5 tablets (25 mg tota l) by mouth daily. Half tablet daily, 25mg daily dose (recent drop in dose) 0 Active tablet HOLD upon discharge. Please follow up with PCP within 1 week . Active Problems Problem Noted Date Pneumothorax Trauma Initial 07/02/2021 Fracture Rib Single Closed Initial Right 07/02/2021 Overview: Mildly displaced fracture of the posteri or right 5th rib with associated subcutaneous emphysema in the right lateral chest wall and right neck base. Traumatic Subcutaneous Emphysema Sequela 07/02/2021 Abuse Tobacco Smoking 07/02/2021 Chronic Respiratory Failure With Hypoxia 07/02/2021 Chronic Obstructive Pulmonary Disease Without Exacerba tion 07/02/2021 History Of Falling 07/02/2021 Inappropriate Antidiuretic Hormone Syndrome 07/02/2021 Hypomagnesemia 07/02/2021 Hypertension 05/05/2011 Hypertension Essential Primary Obesity Body Mass Index 30-39.9 Adult Immunizations Name Administration Dates Next Due Influenza high dose QV(65 years or older) (PF) 07/02/2021 Social History Tobacco Use Types Packs/Day Years Used Date Smoking Tobacco: Every Day Cigarettes 0.5 50 Smokeless Tobacco: Never Tobacco Cessation: Ready to Quit: Yes; Loretta cordoba Given: No Alcohol Habits Answer Date Recorded How often do you have a drink containing 4 or more times a w [place]giak 07/18/2021 alcohol? How many drinks containing alcohol [...] or relatives? How often do you attend sabianist or restoration More than 4 time s per year 07/18/2021 services? Do you belong to any clubs or organizations Yes 07/18/2021 such as sabianist groups, unions, fraternal or athletic groups, or [...] place to sleep or slept in a senior living (including now)? Education Answer Date Recorded What is the highest level of school you have Some college, n o degree 07/18/2021 completed or the highest degree you have received? Sex Assigned at Date Recorded Not on file Last Filed Vital Signs Vital Sign Reading Time Taken Comments Blood Pressure 131/73 07/03/2021 1:25 PM CDT Pulse 70 07/03/2021 1:25 PM CDT Temperature 36.8 ??C (98.2 ??F) 07/03/2021 1:25 PM CDT Respiratory Rate 18 07/03/2021 1:25 PM CDT Oxygen Saturation 91% 07/03/2021 1:25 PM CDT Inhaled Oxygen Concentration - - Weight 97.5 kg (215 lb) 07/02/2021 4:54 PM CDT Height 167.6 cm (5' 6) 07/02/2021 4:54 PM CDT Body Mass Index 34.7 07/02/2021 4:54 PM CDT Plan of Treatment Health Maintenance Due Date Last Done Comments Bone Density Scan (Osteoporosis 1950 Screen) CT Colonography 1950 Cologuard 1950 Colonoscopy 1950 Colorectal Cancer Screening 1950 FIT 1950 Hepatitis C Screening 1950 Mammogram 1950 Office Visit for Blood Pressure 1950 Check / Re-check Tobacco Cessation counseling 1950 Depression Screening (Annual 09/10/2021 PHQ-2) Fall Risk Screen (Annual) 09/10/2021 Influenza Vaccine (#1) 2022 07/02/2021, 06/25/2020, 07/02/2018, Additional history exists Creatinine Level 08/15/2022 08/15/2021, 07/20/2021, 07/04/2021, Additional history exists Potassium Level 08/15/2022 08/15/2021, 08/08/2021, 07/20/2021, Additional history exists Sodium Level 08/15/2022 08/15/2021, 07/20/2021, 07/04/2021, Additional history exists Fasting Glucose for Diabetes 08/15/2024 08/15/2021, 021, Screening 07/04/2021, Additional history exists DTaP,Tdap,and Td Vaccines (3 - Td 04/11/2031 04/11/2021, , or Tdap) 12/12/2002 Pneumococcal vaccine (65+ years) Completed 02/07/2018, Zoster Vaccines Completed 05/23/2019, 02/17/2019 COVID-19 Vaccine Completed 01/31/2022, 07/19/2021, 11/30/2020, Additional history exists Insurance Payer Benefit Plan Subscriber ID Effective Phone Address Typ e / Group Dates MEDICARE MEDICARE A [id number] 2014-Pres [address] [place] [address] BLUE CROSS [employer] [place] [id number] 2016-Pres [phone] PO ED X Cost Share BLUE SHIELD BLUE COST ent [phone] [place] [address] Advance Directives For more information, please contact: [phone] Latest Code Status on File Code Status Date Activated Date Inactivated Comments Full Code 07/02/2021 2:44 AM 07/03/2021 3:55 PM Full Code: Discussed Care Teams Patient Navigator Relationship Specialty Start Date End Date Elsewhere, Pcp PCP - General Family Medicine 07/01/21
--- OUTSIDE RECORDS SUMMARY | 2022-04-19 01:39 | XMS_ITS | Encounter Summary ---
:1950 Author Organization [facility] Address [address] [place] [address] Care Team Providers Name Role Phone Elsewhere, Pcp Primary Care Provider Unavailable Reason for Visit Reason Comments Return Visit Outpatient (Routine) - Closed Specialty Diagnoses / Procedures Referred By Contact Refer red To Contact Trauma Critical Care Damaris Arreguin, [facility] and General Surgery Kal ZAPIEN, M.S.N. [address] [place] [phone] Referral ID Status Reason Start Date Expiration Date Visits Requ ested Visits Authorized [id number] Closed 07/03/2021 07/03/2022 1 1 Encounter Details Date Type Department Care Team Description 07/18/2021 Office Visit Division of Trauma Damaris Arreguin, RUPALI C.N.Julito., M.S.N. [address] [place] [phone] Fracture Rib Single Critical Care and Ambrosio Newton P.A.-C. [address] [place] [phone] Subsequent With General Surgery in Routine [place], [place] (Primary Dx) [address] [place] [phone] Social History Tobacco Use Types Packs/Day Years Used Date Smoking Tobacco: Every Day Cigarettes 0.5 50 Smokeless Tobacco: Never Alcohol Habits Answer Date Recorded How often do you have a drink containing 4 or more times a w [place] indian tribe 07/18/2021 alcohol? How many drinks containing alcohol [...] or relatives? How often do you attend hindu or sabianism More than 4 time s per year 07/18/2021 services? Do you belong to any clubs or organizations Yes 07/18/2021 such as hindu groups, unions, fraternal or athletic groups, or [...] place to sleep or slept in a [facility] (including now)? Education Answer Date Recorded What is the highest level of school you have Some college, n o degree 07/18/2021 completed or the highest degree you have received? Sex Assigned at Date Recorded Not on file documented as of this encounter Progress Notes Ambrosio Newton P.A.-C. - 07/18/2021 1:00 PM CST SUBJECTIVE CHIEF COMPLAINT / REASON FOR VISIT Monik Gallego is a 70 y.o. female who presents for evaluation of traumatic rib fracture and pneumothorax. HISTORY OF PRESENT ILLNESS Mrs. Gallego returns to the Trauma clinic today for ongoing management of recent traumatic rib fracture and pneumothorax. Following a fall from standing height on July 01, the patient was admitted to the hospital where she was treated for multiple traumatic injuries. She was subsequently dischargedto home on July 03 where she has resided until today's appointment. Today, the patient is accompanied by her in states that overall she has been doing very wellat home. She notes that her pain control is continue to improve to the point that she no longer is taking any pain medications. She specifically notes that she did not require use of oxycodone following her discharge from the hospital. She states that she has had no difficulty breathing and no shortness of breath. She notes that her appetite has returned to normal and the bowel and bladder function are also back to normal. She has been sleeping well at night. She has been performing her activities of daily living without restriction, though she has been avoiding lifting anything heavy. No additional acute concerns or complaints were noted. She was given an opportunity to ask questions which were answered to her apparent satisfaction. The following portions of the patient's history were reviewed and updated as appropriate: allergies,current medications, medical history, surgical history and problem list. Answers for HPI/ROS submitted by the patient on 07/18/2021 No general issues: Yes No eye issues: Yes No ENT issues: Yes No heart issues: Yes No respiratory issues: Yes No GI issues: Yes No muscle/bone issues: Yes No skin issues: Yes No neurologic issues: Yes No mental health issues: Yes No blood/lymph issues: Yes No urinary/reproductive issues: Yes OBJECTIVE PHYSICAL EXAM Exam conducted with a gas main and line fitter present ( present). Constitutional Appearance: Normal appearance. Pulmonary Effort: Pulmonary effort is normal. No respiratory distress. Breath sounds: Normal breath sounds. No stridor. No wheezing or rales. Neurological General: No focal deficit present. Mental Status: She is alert and oriented to person, place, and time. I have reviewed the patient's chest x-ray today DX Chest AP or PA and Lateral 2 Views Result Date: 07/18/2021 Impression: Since 07/03/2021, the previously seen tiny right apical pneumothorax is no longer definitively identified although a possible candidate trace right apical pneumothorax is visualized (seen at the arrow, enlarged screen capture provided). Subcutaneous emphysema has resolved. Increased lung volumes. Remainder not significantly changed. Bibasilar lung atelectasis. Right IJ chest port with tipin the upper right atrium. Enlarged cardiac silhouette. Minimally displaced fracture of the right posterior fifth rib. ASSESSMENT / PLAN #1 Fracture Rib Single Subsequent With Routine Healing Right Mrs. Gallego continues to heal well for her traumatic injuries. Her chest x-ray shows resolution of the pneumothorax and subcutaneous emphysema. No additional sign of worsening of her rib fracture is noted. X-ray also does not demonstrate any signs of infection. She was encouraged to continue to avoid heavy lifting for the next several weeks as her body continues to heal from her fall. Otherwise, she will require no further follow-up with the trauma service at this time. I did ensure that she has our contact information and asked her to please call our service if she has any additional questions or concerns regarding her traumatic injuries or if there is any other way that we can be of assistance. D DESIGNER documented in this encounter Plan of Treatment Not on filedocumented as of this encounter Visit Diagnoses Diagnosis Fracture Rib Single Subsequent With Rout ine Healing Right - Primary documented in this encounter Care Teams Drying Machine Back Tender Relationship Specialty Start Date End Date Elsewhere, Pcp PCP - General Family Medicine 07/01/21 documented as of this encounter
--- OUTSIDE RECORDS SUMMARY | 2022-04-19 01:40 | XMS_ITS | Encounter Summary ---
:1950 Author Organization [facility] Address [address] [place] [address] Care Team Providers Name Role Phone Unavailable Primary Care Provider Unavailable Encounter Details Date Type Department Care Team Description 05/30/2021 Office Communication [facility] Sh[place]pa, [address]lez MD [address], [place] [address] [place], [place] [phone] [id number] Social History Tobacco Use Types Packs/Day Years Used Date Smoking Tobacco: Never Assessed Sex Assigned at Date Recorded Not on file documented as of this encounter Miscellaneous Notes Telephone Encounter - Jennifer Alonso - 05/30/2021 10:54 AM CDT Patient declines to schedule with [place], stated she wants to follow with someone in [place]. Letter faxed to PCP. documented in this encounter Plan of Treatment Not on filedocumented as of this encounter Visit Diagnoses Not on filedocumented in this encounter
--- OUTSIDE RECORDS SUMMARY | 2022-04-19 01:40 | XMS_ITS | Encounter Summary ---
:1950 Author Organization [facility] Address [address] [place] [id number] Care Team Providers Name Role Phone Elsewhere, Pcp Primary Care Provider Unavailable Reason for Referral Outpatient (Routine) - Closed Specialty Diagnoses / Procedures Referred By Contact Refer red To Contact Trauma Critical Care Damaris Arreguin, [facility] General Surgery Kal ZAPIEN, M.S.N. [address] [place] [phone] Referral ID Status Reason Start Date Expiration Date Visits Requ ested Visits Authorized [id number] Closed 07/03/2021 07/03/2022 1 1 Reason for Visit Reason Comments Fall Auth/Cert Specialty Diagnoses / Procedures Referred By Contact Refer red To Contact Diagnoses Pneumothorax Trauma Initial Fracture Rib Single Closed Initial Right Procedures S27.0XXA (ICD-10-CM) - Pneumothorax Trauma Initial S22.31XA (ICD-10-CM) - Fracture Rib Single Closed Initial Right Referral ID Status Reason Start Date Expiration Date Visits Requ ested Visits Authorized [id number] 1 1 Encounter Details Date Type Department Care Team Description 07/01/2021 - Hospital [facility] Darryl Berkowitz M.D., Ph.D. [address] [place] [id number] Pneumothorax Trauma Initial (Primary Dx) ; [facility] [address] [place] [address] Fracture Rib Single Closed Initial Right ; [facility], Stefano Santiago M.D. [address] [place] [address] Decline Functional Status; [facility], Chronic Ob structive Pulmonary Disease Without Exacerbation (HCC); [address] Floor Chronic Respiratory Failure With Hypoxia (HCC) [address] [place] [address] Social History Tobacco Use Types Packs/Day Years Used Date Smoking Tobacco: Every Day Cigarettes 0.5 50 Smokeless Tobacco: Never Tobacco Cessation: Ready to Quit: Yes; Loretta cordoba Given: No Alcohol Habits Answer Date Recorded How often do you have a drink containing 4 or more times a w [place] 07/18/2021 alcohol? How many drinks containing alcohol [...] or relatives? How often do you attend yazidism or mu-ism More than 4 time s per year 07/18/2021 services? Do you belong to any clubs or organizations Yes 07/18/2021 such as yazidism groups, unions, fraternal or athletic groups, or [...] place to sleep or slept in a snf (including now)? Sex Assigned at Date Recorded Not on file documented as of this encounter Last Filed Vital Signs Vital Sign Reading [...] Mass Index 34.7 07/02/2021 4:54 PM CDT documented in this encounter Discharge Summaries Damaris Arreguin APRN, C.NLorettaP., M.S.N. - 07/03/2021 12:18 PM CDT DISCHARGE SUMMARY BRIEF OVERVIEW Hospital: [facility] Discharge Provider: Bj Bai M.D. Primary Team: RSKeena SHAH Trauma Primary Care Providers: Elsewhere, Pcp (General) No address on file Primary Care Provider Phone Number: None Primary Care Provider Fax Number: None Other Providers: None Admission Date: 07/01/2021 Discharge Date: 07/03/2021 PRINCIPAL DIAGNOSIS Pneumothorax Trauma Initial SECONDARY DIAGNOSES Principal Problem: Pneumothorax Trauma Initial Active Problems: Fracture Rib Single Closed Initial Right Traumatic Subcutaneous Emphysema Sequela Abuse Tobacco Smoking Chronic Respiratory Failure With Hypoxia (HCC) Chronic Obstructive Pulmonary Disease Without Exacerbation (HCC) History Of Falling Inappropriate Antidiuretic Hormone Syndrome (HCC) Hypomagnesemia Hypertension Essential Primary Obesity Body Mass Index 30-39.9 Adult Resolved Problems: * No resolved hospital problems. * DISCHARGE DISPOSITION Home or Self Care [1] ACTIVE ISSUES REQUIRING FOLLOW UP PRIMARY CARE PROVIDER: You should follow up with your primary care provider within one to two weeks of being discharged. This appointment will be for further assessment following your hospitalization evaluation of your pre-existing medical conditions, and review and management of your medications. Changes to your previous medications may have been made during this hospitalization and you will need to discuss those changes with your healthcare provider. Please discuss smoking cessation strategies and oxygen therapy management Please discuss hypertension management Issue: Rib fracture follow up What is Needed: chest x-ray and clinic evaluation Follow-up Appointments Arranged: Yes Issue: home medications held What is Needed: follow up with PCP in 1 week Follow-up Appointments Arranged: No OUTPATIENT FOLLOW UP For appointment details refer to your Patient Appointment Guide. TEST RESULTS PENDING AT DISCHARGE Pending Labs None DETAILS OF HOSPITAL STAY REASON FOR ADMISSION Pneumothorax Trauma Initial Fracture Rib Single Closed Initial Right HOSPITAL COURSE #1 History Of Falling Ms. Monik Gallego was transferred to [facility] as a green level traumaafter sustaining a backwards fall from ground level height. She denied hitting her head or loss of consciousness. This resulted in a right- sided rib fracture, and a small right pneumothorax with subcutaneous emphysema. After initial trauma evaluation in the emergency department, she was admitted to the Surgical ICU under the cares of the Trauma Service due to concerns regarding her baseline pulmonarystatus. She was observed overnight in the ICU with rib fracture protocol in place. No acute events or issues occurred. The next morning, the patient was able to ambulate with the assistance of the Physi blank Therapy, was saturating appropriately on her baseline 3L nasal cannula, her pain was well controlled on oral medications, and she was tolerating a regular diet. She was stable and was transferred to the floor for continued care. #2 Pneumothorax Trauma Initial #3 Fracture Rib Single Closed Initial Right #4 Traumatic Subcutaneous Emphysema Sequela CT imaging showed mildly displaced right 5th rib with a small pneumothorax and moderate subcutaneousemphysema. She was treated conservatively with rib fracture protocol, pain control, pulmonary hygiene including incentive spirometry, deep breathing and coughing exercises, and mobilization as tolerated. Daily chest x- rays were used to monitor lung beckford. The patient was provided with education on pulmonary hygiene and the usual sequelae following rib fractures, including the following: patient should continue with oral and/or transdermal pain control regimen to allow for participation in pulmonary hygiene. The patient may utilize a rolled up blanket or pillow against the chest wall to assist with pain control during pulmonary hygiene. The patient wasencouraged to be up out of bed as much as possible (when allowed) to decrease debility and improve pulmonary hygiene. Upon dismissal, patient encouraged to sleep with the head of the bed elevated utilizing a wedge or multiple pillows, or to sleep upright to decrease pain and assist with pulmonary hygiene. The patient also was educated on avoiding lifting >10 pounds and avoiding overhead activitiesfor approximately 6 weeks following dismissal to avoid chest wall pain/spasms. Upon dismissal patient will need to continue with pulmonary hygiene: the use of the Incentive Spirometry, a minimum of 10 times every hour while awake, along with coughing/deep breathing exercises. Upon dismissal patient will need to continue with pulmonary hygiene. Given her poor pulmonary statusprior to admission, we will have her follow up in 2 weeks with a chest x-ray and evaluation in the [facility]. #5 Chronic Obstructive Pulmonary Disease Without Exacerbation (HCC) #6 Chronic Respiratory Failure With Hypoxia (HCC) #7 Abuse Tobacco Smoking #8 Oxygen Dependent The patient is a current everyday smoker requiring 3L/min nasal cannula oxygen at home for about 3 weeks now after consultation with construction worker. She utilizes this mostly at night. Patient was continued on home oxygen during her hospitalization. Oxygen saturation goal 88-92%. Social work provided home oxygen reconnection. O2 study was performed while in the hospital demonstrating patient requires 1L NC during rest and activity. Patient is encouraged to follow-up with her primary care provider to discuss smoking cessation strategies and construction worker to continue work-up after discharge. 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 #11 Hypomagnesemia Magnesium was low at 1.2 on 07/02 and was repleted. Patient's electrolytes were monitored and repleted as needed. #12 Obesity Body Mass Index 30-39.9 Adult Patient was noted to have a BMI of 34.70. She is recommended healthy diet and lifestyle changes and follow-up with Primary Care Provider. Physical therapy was consulted to assist with mobilization. Designer And Patternmaker was also consulted to assist with possible placement/therapy needs. When she was tolerating a regular diet,her pain was well controlled on oral medications, her bowel and bladder function had returned to its prior state and she was mobilizing without difficulty she was dismissed home. CONSULTS ORDERED DURING THIS ADMISSION IP CONSULT TO TRAUMA CRITICAL CARE AND GENERAL SURGERY IP CONSULT TO CARE MANAGEMENT IP CONSULT TO HOSPITAL INTERNAL MEDICINE CONDITION AT DISCHARGE stable Discharge instructions were provided to the patient and caregiver(s). documented in this encounter Medications at Time of Discharge Medication Sig Dispensed Refills Start Date End Date acetaminophen (TYLENOL) Take 2 tablets (1,000 0 1 500 mg tablet mg total) by mouth every 6 (six) hours as needed for pain. amLODIPine (NORVASC) 10 Take 1 tablet (10 mg 0 mg tablet total) by mouth daily. aspirin [address] tablet Take 81 mg by mouth 0 daily. calcium Daily 0 carbonate-vitamin D3 500 mg(1,250mg) -125 unit per tablet gabapentin (NEURONTIN) Take 300 mg by mouth 4 0 300 mg capsule (four) times a day. losartan (COZAAR) 50 mg Take 0.5 tablets (25 mg tota l) by mouth daily. Half tablet daily, 25mg daily dose (recent drop in dose) 0 07/03/2021 tablet HOLD upon discharge. Please follow up with PCP within 1 we ek. simvastatin (ZOCOR) 40 Take 40 mg by mouth at 0 0 04/11/2021 mg tablet bedtime. sodium chloride 1 gram Take 1 g by mouth 2 0 05/12 tablet (two) times a day with meals. sennosides (SENOKOT) Take 1 tablet (8.6 mg 14 tablet 0 06/1107/10/2021 8.6 mg tablet total) by mouth 2 (two) times a day for 7 days. Do not take if you have loose stools. oxyCODONE (ROXICODONE) Take 1 tablet (5 mg 8 tablet 0 06/1107/18/2021 5 mg immediate release total) by mouth every tabletIndications: 4 (four) hours as Acute Pain needed for severe pain or score 7-10 of 10 (for breakthrough pain) Indication: acute pain. polyethylene glycol Take 1 packet (17 g total) b y mouth daily as needed for constipation. Dissolve each 17 g dose in 240 mLs (8 ounces) of beverage. 0 07/03/2021 07/18/2021 (MIRALAX) 17 gram powder packet Do not take if you have loose stools. documented as of this encounter Progress Notes Jocelyne Donald M.D. - 07/03/2021 12:30 PM CDT RST [facility] Trauma Progress Note SUBJECTIVE No events overnight. She received magnesium. She is feeling well. Pain is controlled. She is eager to be discharged home with her . I have reviewed the current medication list. OBJECTIVE VITAL SIGNS Temperature: [36.2 ??C-36.9 ??C] 36.9 ??C Heart Rate: [58-67] 58 Resp Rate: [16-20] 16 Blood Pressure: (114-131)/(65-77) 124/77 SpO2: [83 %-95 %] 93 % Flow Rate (L/min): [1 L/min-4 L/min] 1 L/min Pulse Rate: [60-69] 67 PHYSICAL EXAM General: Alert, interactive, not acutely ill, no apparent distress. ENT: Hearing grossly intact. Lungs: Normal rate and effort. Mental: Attention intact. No evidence of disorganized thinking. RASS 0. CAM negative for acute delirium. 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 DIAGNOSTICS I have personally reviewed labs and CXR. Magnesium improved Sodium improved CBC normal ASSESSMENT / PLAN Ms. Gallego is hospitalized on [facility] Trauma for evaluation and management of: Pneumothorax Trauma Initial #1 Pneumothorax Trauma Initial #2 Fracture Rib Single Closed Initial Right #3 Traumatic Subcutaneous Emphysema Sequela #4 Abuse Tobacco Smoking #5 Chronic Respiratory Failure With Hypoxia (HCC) #6 Chronic Obstructive Pulmonary Disease Without Exacerbation (HCC) #7 History Of Falling #8 Inappropriate Antidiuretic Hormone Syndrome (HCC) #9 Hypomagnesemia #10 Hypertension Essential Primary #11 Obesity Body Mass Index 30-39.9 Adult Orthostatic vitals (on NO antihypertensives): 121/69 laying 131/72 sitting 124/77 standing HR in 60s (despite holding atenolol since admission) RECOMMENDATIONS: 1. Appreciate updated O2 prescription. Counseling provided at bedide on oxygen use. 2. Given her bradycardia with first degree block and reduced CrCl, it would be reasonable to stop atenolol entirely and remove from her discharge med list. 3. Blood pressure and orthostatic vitals are normal on no antihypertensives. Recommend continuing tohold losartan and amlodipine until follow up with PCP. If she does resume either or both of her antihypertensives, I would recommend that her PCP check orthostatic vitals after making these changes to ensure that her BP does not drop. It is possible this was a mechanism related to her fall (as orthostatic hypotension is often asymptomatic). In the meantime, she has a BP cuff at home, and she will monitor BP daily at midday and call her PCP if blood pressure rises following discharge. Thank you for the opportunity to care for this patient. We will sign off at this time. Please page the Geriatric Consult service at [phone] with any questions or concerns during daytime hours (7am-7pm, including weekends and holidays). For urgent questions after hours, please page [phone]. Bj Bai M.D. - 07/03/2021 10:55 AM CDT SUBJECTIVE HISTORY OF PRESENT ILLNESS I reviewed, discussed, examined, and agree with documentation of Trauma Service. Overall, patient isdoing reasonably well. Pain control is acceptable. She is working with pulmonary hygiene. She is ambulating. OBJECTIVE DIAGNOSTICS Chest x-ray shows no change. ASSESSMENT / PLAN We will try to assess for need for supplemental oxygen therapy. She has a sleep study coming up nextmonth in her local medical facility in [place], [place]. She would meet criteria for discharge from the hospital today. Her will be arriving to take her home. Given her underlying smoking history and oxygen requirements which were pre-existing, we will see her back in 2 weeks in outpatient Trauma Clinic for followup chest x-ray. Discussed fully with patient. Bj Bai M.D. CT CT Job ID: [id number] Pedro Luis Slater - 07/03/2021 10:53 AM CDT 07/03/21 1005 Home Oxygen Assessment Rest/Awake Room Air SpO2 85 Percent Rest/Awake with Oxygen SpO2 90 (1 lpm nasal cannula) Exercise/Activity with Oxygen SpO2 89 Percent (1 lpm nasal cannula) Home oxygen assessment completed. Patient demonstrated the need for 1 lpm of oxygen at rest via nasal cannula, and required 1 lpm oxygen via nasal cannula with activity. Electronically signed by: Dejuan Slater 07/03/21 10:53 AM CDT Damaris Arreguin APRN, C.N.P., M.S.N. - 07/03/2021 10:49 AM CDT Trauma Screening and Brief Intervention Screen applied: Audit-C Was intervention required: no Damaris Arreguin APRN, C.N.P., M.S.N. - 07/03/2021 10:41 AM CDT Trauma Daily Progress Note (Adult) Admission Date/Time: 07/01/2021 10:14 PM SUBJECTIVE: Ms. Gallego is currently hospital day 1 for management of her traumatic injuries following a ground level fall. She is doing well this morning, having some chest wall pain but adequately managed on current regimen. She had troubles tolerating her CPAP overnight but after trialing a few different masks was able to tolerate one for most of the night. She otherwise is saturating well on 1L NC with a goal of 88-92% saturations. Per Geriatrics recommendations, we will obtain a home O2 study this morning and orthostatic vital signs. AM chest xray is stable. Patient will likely meet criteria for discharge this afternoon. Lab Review: Recent Results (from the past 24 hour(s)) CBC without Differential Collection Time: 07/03/21 9:37 AM Result Value Hemoglobin 14.3 Hematocrit 44.1 Erythrocytes 4.43 MCV 99.5 (H) RBC Distrib Width 13.8 Platelet Count 173 Leukocytes 7.4 Vital Signs: BP 124/77 (BP Location: Right arm;Upper, Patient Position: Standing) Pulse 67 Temp 36.9 ??C (Oral) Resp 16 Ht 167.6 cm Wt 97.5 kg SpO2 91% BMI 34.70 kg/m?? Temperature: [36.2 ??C-36.9 ??C] 36.9 ??C Heart Rate: [54-68] 58 Resp Rate: [12-24] 16 Blood Pressure: (92-131)/(51-104) 124/77 SpO2: [74 %-99 %] 91 % Flow Rate (L/min): [1 L/min-4 L/min] 1 L/min Pulse Rate: [49-69] 67 I/O 07/01 0707/02 0707/02 07/04 0700 P.O. 350 600 600 Maintenance IV 143.8 Total Intake(mL/kg) 493.8 (5.2) 600 (6.2) 600 (6.2) Urine (mL/kg/hr) 1950 (0.8) 825 (2.3) Total Output 1950 825 Net +493.8 -1350 -225 Unmeasured Urine Occurrence 1 x 3 x PHYSICAL EXAM: General: Patient resting in bed, in no apparent distress. HEENT: CPAP on Heart: Regular rate and rhythm. Lungs/chest: Normal respiratory effort on CPAP Abdomen: Soft, non-tender, non-distended. Imaging: DX Chest AP or PA and Lateral 2 Views Result Date: 07/02/2021 Impression: Comparison made to outside chest radiographs from earlier today (1800). Mildly displacedfracture of the posterior right 5th rib with associated subcutaneous emphysema in the right lateral chest wall and right neck base. Curvilinear lucency along the superolateral aspect of the right lung and extending about the right lung apex is in keeping with the previously reported tiny predominantlylateral right pneumothorax. This has not significantly increased in size since the outside exam. Lingular and left basilar atelectasis. Prominent apical cardiac fat pad. Aortic calcifications. Right chest wall port with the tip at the superior cavoatrial junction. CT Abdomen Pelvis with IV Contrast, CT Chest with IV Contrast Result Date: 07/02/2021 Impression: 1. Mildly displaced right 5th rib with a small pneumothorax and moderate subcutaneous emphysema. 2. No acute traumatic findings in the abdomen and pelvis. 3. Portal and retroperitoneal adenopathy and mild diffuse peritoneal thickening and nodularity have improved since outside CT 12/31/2017. DX Chest Portable 1 View Result Date: 07/03/2021 Impression: No change since 07/02/2021. Right IJ chest port with tip in the RA. Cardiomegaly. Minimally displaced fracture of the right posterior 5th rib. Tiny right pneumothorax. Subcutaneous emphysema right chest wall and neck. Bibasilar atelectasis. DX Chest Portable 1 View Result Date: 07/02/2021 Impression: No significant change since 06/29/2021 (23:16). Small right pneumothorax. No focal consolidation or pleural effusion. Normal cardiac size. Prominent cardiac fat pad. Mildly displaced fracture of the posterior right 5th rib right chest Port-A-Cath with tip in the low SVC. Lines, Drains, and Airways Timeline Peripheral IV Peripheral IV Catheter 07/01/21 18 G Right Antecubital 1d 10h Consult Orders: IP CONSULT TO TRAUMA CRITICAL CARE AND GENERAL SURGERY IP CONSULT TO CARE MANAGEMENT IP CONSULT TO HOSPITAL INTERNAL MEDICINE ASSESSMENT / PLAN: - Diet: general - Activity/Exercise: as tolerated - VTE Prophylaxis/Therapy: Lovenox - Bowel Regimen: miralax, senna, bisacodyl - GI Prophylaxis: NA - Void: spontaneous - Pain: tylenol, gabapentin, lidoderm, oxycodone - Antibiotics: NA - Dressing: NA - Cultures: NA - Disposition: Transfer to general care floor today. ?? Mechanism of Injury: Fell backwards from standing height, landing on back. ?? TTS: done 07/02 SAS: done 07/03 ?? #1 Pneumothorax Trauma Initial #2 Fracture Rib Single Closed Initial Right #3 Traumatic Subcutaneous Emphysema Sequela Mildly displaced right 5th rib with a small pneumothorax and moderate subcutaneous emphysema. - Continue rib fracture protocol, non-operative management - Repeat chest xray is stable this morning - Continue to use incentive spirometry 10 times every hour while awake - Continue multimodal pain regimen - Will plan for 2 week follow up in trauma clinic with repeat chest x-ray at that time. ?? #4 Abuse Tobacco Smoking #5 Oxygen Dependent - Patient continues to require 1-2L NC intermittently. This is baseline for her. Per geriatrics, will obtain an oxygen study this morning and update her oxygen prescription as needed. Social work has completed the reconnect for her oxygen supplies. She states she has a sleep study scheduled at the beginning of July. Please feel free to page the Trauma Service at [phone] with any questions in regards to the plan of care. Pedro Luis Slater - 07/03/2021 7:40 AM CDT 0700 CPAP hyperinflation therapy held due to patient just waking from sleep. Patient wore CPAP for approximately 5 hours last night prior to taking it off. Patient displays diminished bilateral breath sounds, a weak dry cough, and was resting comfortably on a 1 lpm nasal cannula. RT will continue to follow and encourage hyperinflation therapy as ordered. Electronically signed by: Dejuan Slater 07/03/21 8:22 AM CDT Billy Martinez - 07/02/2021 7:55 PM CDT 07/02/21 1630 Respiratory Mechanics (Volumes/Pressures) Rib Fracture After Trauma Assessment Yes Max Inspiratory Pressure -30 cm H2O Vital Capacity 1.26 Liters Predicted Vital Capacity 2.75 Liters Patient Position Lying Patient Effort Good Pain Score 2 $Respiratory Mechanics (yes) Under the direction of Kailyn orozco. Electronically signed by: Billy Martinez 07/02/21 7:56 PM CDT Destinee Muir D.O. - 07/02/2021 12:55 PM CDT Trauma Tertiary Survey (Adult) Admission Date/Time: 07/01/2021 10:14 PM Trauma Level: Green Mechanism of Injury: Monik Gallego is a 70 y.o. female who was admitted overnight because the kneebackwards fall from ground level height resulting in a right-sided rib fracture and a small right pneumothorax with subcutaneous emphysema. Injuries include: Mildly displaced fracture of the posterior right 5th rib, small predominantly lateral right pneumothorax. Temperature: [36.6 ??C-36.8 ??C] 36.6 ??C Heart Rate: [56-68] 58 Resp Rate: [12-24] 16 Blood Pressure: (92-126)/(51-104) 110/60 SpO2: [74 %-99 %] 96 % Flow Rate (L/min): [3 L/min-4 L/min] 3 L/min Weight: [94.7 kg] 94.7 kg Pulse Rate: [49-65] 57 Physical Exam General Alert and oriented x3 HEENT Atraumatic, normocephalic Scalp: no injury Eyes: no injury Ears: no injury Nose: no injury Mouth: no injury Neck: no injury Cervical Spine: no injury Midline tenderness?: no Heart:: RRR Chest/Lungs: no injury, pain with palpation: No, bruse of right lateral chest wrapping to back. Wheezes present b/l. Abdomen: no injury, non-tender, non-distended, bowel sounds present Back: Bruise on right Pelvis & Perineum: no pelvic pain with inward and downward pressure R Upper Extremities no injury Pulses: present L Upper Extremities: no injury Pulses: present R Lower Extremities: no injury Pulses: present L Lower Extremities: no injury Pulses: present Neurologic A&Ox3, no acute distress Motor: intact bilateral, strength: 5 / 5 bilateral Motor: intact bilateral, strength: 5 / 5 bilateral Sensory: sensation intact Pulses: Radial, brachial, PT, DP all palpable 2+ GCS: TOTAL - 15 Other: Imaging: DX Chest AP or PA and Lateral 2 Views Result Date: 07/02/2021 Narrative: EXAM: DX CHEST AP OR PA AND LATERAL 2 VIEWS Impression: Comparison made to outside chest radiographs from earlier today (1800). Mildly displacedfracture of the posterior right 5th rib with associated subcutaneous emphysema in the right lateral chest wall and right neck base. Curvilinear lucency along the superolateral aspect of the right lung and extending about the right lung apex is in keeping with the previously reported tiny predominantlylateral right pneumothorax. This has not significantly increased in size since the outside exam. Lingular and left basilar atelectasis. Prominent apical cardiac fat pad. Aortic calcifications. Right chest wall port with the tip at the superior cavoatrial junction. CT Abdomen Pelvis with IV Contrast, CT Chest with IV Contrast Result Date: 07/02/2021 Narrative: EXAM: CT CHEST WITH IV CONTRAST, CT ABDOMEN PELVIS WITH IV CONTRAST COMPARISON: Chest radiograph 06/29/2021, outside CT 12/30/2017 FINDINGS: CHEST: Mildly displaced fracture of the posteriorright 5th rib (series 4, image 89). Small right pneumothorax. Subcutaneous emphysema along the rightlateral chest wall extending inferiorly to the right paraspinal musculature and superiorly to the right cervical musculature. 5 mm pulmonary nodule in the right middle lobe (series 3, image 167), possible intrapulmonary lymph node. Scattered bibasilar linear atelectasis versus scarring. The thoracic aorta and great vessels are patent without vascular injury. Scattered thoracic aorta calcified atheromatous plaques. Normal cardiac size. No pericardial effusion. ABDOMEN/PELVIS: No acute vascular, solidorgan, or visceral traumatic injury in the abdomen or pelvis. The abdominal aorta and branches are patent and negative for injury. Geographic hypodensity in the right hepatic lobe inferiorly (series 3,imaging 75), favor focal hepatic steatosis. Suggestion of a subtle hypodensity within the caudate lobe (series 3, image 54). 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 Punctate hypodensity within the spleen. Mildly thickened adrenal glands. Tiny cyst in the pancreatic head may represent IPMN (series 3, image 93). Left renal cysts. Fat and fluid-containing periumbilical hernia. Spleen, adrenal glands and right kidneys are normal in appearance. No intraperitoneal or extraperitoneal free air or fluid. Scattered small lymph nodes within the atul hepatis and throughout the retroperitoneum have decreased in size since 12/31/2017. Mild diffuse peritoneal thickening and nodularity has also improved. Hysterectomy. Mild nodularity of the vaginal cuff. Aortoiliac calcifications. No pelvic fractures. Degenerative changes of the spine. Impression: 1. Mildly displaced right 5th rib with a small pneumothorax and moderate subcutaneous emphysema. 2. No acute traumatic findings in the abdomen and pelvis. 3. Portal and retroperitoneal adenopathy and mild diffuse peritoneal thickening and nodularity have improved since outside CT 12/31/2017. DX Chest Portable 1 View Result Date: 07/02/2021 Narrative: EXAM: DX CHEST PORTABLE 1 VIEW Impression: No significant change since 06/29/2021 (23:16). Small right pneumothorax. No focal consolidation or pleural effusion. Normal cardiac size. Prominent cardiac fat pad. Mildly displaced fracture of the posterior right 5th rib right chest Port-A-Cath with tip in the low SVC. RIBS, RIGHT W/PA CXR Min 3V-Outside Other Result Date: 07/01/2021 Narrative: This order has been created and auto-finalized to support the import of outside images. If available, original interpretation can be found on the Media Tab in Chart Review, in Document Viewer, or as an image in Longaccess. If a re-interpretation or overread is required please follow defined workflow. Incidental findings: none Lab Review: Hemoglobin stable, BMP: Na 130, K 4.7, Cr 10.06, BUN 20, Mg 1.2 Tetanus status: unknown REVIEW OF SYSTEMS The following portions of the patient's history were reviewed and updated as appropriate: problem list. Social History: reports that she has been smoking cigarettes. She has a 25.00 pack-year smoking history. She has never used smokeless tobacco. She reports that she does not use drugs. Allergies Allergen Reactions ??? Cymbalta [Duloxetine] Hives #1 Pneumothorax Trauma Initial #2 Fracture Rib Single Closed Initial Right #3 Traumatic Subcutaneous Emphysema Sequela #4 Abuse Tobacco Smoking #5 Oxygen Dependent Consult Orders IP CONSULT TO TRAUMA CRITICAL CARE AND GENERAL SURGERY IP CONSULT TO CARE MANAGEMENT IP CONSULT TO HOSPITAL INTERNAL MEDICINE ?? C-spine cleared (radiographically and clinically)?: yes ?? Thoracic and Lumbar spine cleared: yes ?? Screening and brief intervention: yes Suture/Sheldahl (location and removal dates): None ASSESSMENT / PLAN Plan 1. Diet: Adult Diet Regular 2. Activity: as tolerated 3. VTE Prophylaxis: Enoxaparin 30mg BID 4. GI Prophylaxis: not indicated 5. Bowel Regimen: Senokot S 6. Anticipated Disposition: Home unknown at this time Destinee Muir D.O. Pager: [phone] Damaris Arreguin APRN, C.N.P., M.S.N. - 07/02/2021 10:49 AM CDT Trauma Daily Progress Note (Adult) Admission Date/Time: 07/01/2021 10:14 PM SUBJECTIVE: Ms. Gallego was admitted overnight after sustaining a backwards fall from ground level height resulting in a right sided rib fracture and a small right pneumothorax with subcutaneous emphysema. She denies loss of consciousness or striking her head. Of note, patient requires 3L NC oxygen at baseline, mostly just at night. Due to her baseline pulmonary status, patient was admitted to the ICU for closer observation of her respiratory status, as she is at a higher risk of pulmonary decline. This morning she was observed walking in the hallway with PT. She felt it went well. She was then sitting up in thechair, breathing comfortably on 4L NC. While in the room, oxygen was titrated down to 1L and patientmaintained oxygen saturations greater than 90%. She was able to pull about 1.3L on the incentive spirometry. She states her pain is well controlled, only has some pain with movement. She is tolerating a general diet, denies any nausea or vomiting. She is voiding spontaneously. Patient will likely be able to transfer out of the ICU today. Lab Review: Recent Results (from the past 24 hour(s)) CBC with Differential, Blood Collection Time: 07/01/21 11:05 PM Result Value Hemoglobin 15.1 (H) Hematocrit 45.4 (H) Erythrocytes 4.64 MCV 97.8 RBC Distrib Width 13.4 Platelet Count 178 Leukocytes 12.0 (H) Neutrophils 8.25 (H) Lymphocytes 2.09 Monocytes 1.02 (H) Eosinophils 0.59 (H) Basophils 0.05 Basic Metabolic Panel Collection Time: 07/01/21 11:05 PM Result Value Potassium, P 5.3 (H) Sodium, P 132 (L) Chloride, P 90 (L) Bicarbonate, P 29 Anion Gap, P 13 BUN (Blood Urea Nitrogen), P 21 Creatinine, P 1.11 (H) eGFR-Black/ 58 (L) eGFR Non-Black/ 50 (L) Calcium, Total, P 9.3 Glucose, P 88 Blood Gas with Coox, Venous Collection Time: 07/01/21 11:06 PM Result Value Venous pO2 31 Venous pCO2 62 (H) Venous pH 7.36 Venous Base Excess 8 HCO3 34 Hemoglobin, B 15.3 (H) O2Hb 52.0 COHb 3.3 (H) MetHb <1.0 CtO2 11.2 Venous Sample Site Venipunct Patient Status Collection Time: 07/01/21 11:06 PM Result Value O2 Flow 4.0 Device nc Spont. breaths/min 16 SARS Coronavirus 2, RNA, Rapid POC, V Asymptomatic Collection Time: 07/02/21 3:19 AM Specimen: Nasopharynx; Varies Result Value SARS Coronavirus-2, RNA, Rapid POC, V Undetected SARS Coronavirus 2, Source Nasopharynx Basic Metabolic Panel Collection Time: 07/02/21 4:54 AM Result Value Potassium, S 4.7 Sodium, S 130 (L) Chloride, S 91 (L) Bicarbonate, S 29 Anion Gap 10 BUN (Blood Urea Nitrogen), S 20 Creatinine, S 1.06 (H) eGFR-Non Black/ 53 (L) eGFR-Black/ 61 Calcium, Total, S 8.6 (L) Glucose, S 137 Magnesium Collection Time: 07/02/21 4:54 AM Result Value Magnesium, S 1.2 (L) Phosphorus Inorganic Collection Time: 07/02/21 4:54 AM Result Value Phosphorus (Inorganic), S 3.6 CBC with Differential, Blood Collection Time: 07/02/21 4:54 AM Result Value Hemoglobin 13.7 Hematocrit 43.0 Erythrocytes 4.36 MCV 98.6 (H) RBC Distrib Width 13.4 Platelet Count 177 Leukocytes 10.1 (H) Neutrophils 7.25 (H) Lymphocytes 1.48 Monocytes 0.79 Eosinophils 0.51 (H) Basophils 0.05 Lactate Collection Time: 07/02/21 4:54 AM Result Value Lactate, P 1.2 Blood Gas with Coox, Venous Collection Time: 07/02/21 4:56 AM Result Value Venous pO2 57 Venous pCO2 65 (H) Venous pH 7.31 (L) Venous Base Excess 6 HCO3 32 Hemoglobin, B 14.4 O2Hb 84.9 COHb 1.9 MetHb <1.0 CtO2 17.1 Venous Sample Site Venipunct Patient Status Collection Time: 07/02/21 4:56 AM Result Value O2 Flow 5.0 Device NC Spont. breaths/min 18 Vital Signs: BP 110/60 Pulse (!) 57 Temp 36.6 ??C (Oral) Resp 16 Wt 94.7 kg SpO2 96% Temperature: [36.6 ??C-36.8 ??C] 36.6 ??C Heart Rate: [56-68] 58 Resp Rate: [12-24] 16 Blood Pressure: (92-126)/(51-104) 110/60 SpO2: [74 %-99 %] 96 % Flow Rate (L/min): [3 L/min-4 L/min] 3 L/min Pulse Rate: [49-65] 57 I/O 06/30 0707/01 07 P.O. 350 200 Maintenance IV 143.8 Total Intake(mL/kg) 493.8 (5.2) 200 (2.1) Net +493.8 +200 Unmeasured Urine Occurrence 1 x 1 x PHYSICAL EXAM: General: Patient resting in chair, in no apparent distress. HEENT: NC in place Heart: Regular rate and rhythm. Lungs/chest: Normal respiratory effort on nasal canula. Abdomen: Soft, non-tender, non-distended. Imaging: DX Chest AP or PA and Lateral 2 Views Result Date: 07/02/2021 Impression: Comparison made to outside chest radiographs from earlier today (1800). Mildly displacedfracture of the posterior right 5th rib with associated subcutaneous emphysema in the right lateral chest wall and right neck base. Curvilinear lucency along the superolateral aspect of the right lung and extending about the right lung apex is in keeping with the previously reported tiny predominantlylateral right pneumothorax. This has not significantly increased in size since the outside exam. Lingular and left basilar atelectasis. Prominent apical cardiac fat pad. Aortic calcifications. Right chest wall port with the tip at the superior cavoatrial junction. CT Abdomen Pelvis with IV Contrast, CT Chest with IV Contrast Result Date: 07/02/2021 Impression: 1. Mildly displaced right 5th rib with a small pneumothorax and moderate subcutaneous emphysema. 2. No acute traumatic findings in the abdomen and pelvis. 3. Portal and retroperitoneal adenopathy and mild diffuse peritoneal thickening and nodularity have improved since outside CT 12/31/2017. DX Chest Portable 1 View Result Date: 07/02/2021 Impression: No significant change since 06/29/2021 (23:16). Small right pneumothorax. No focal consolidation or pleural effusion. Normal cardiac size. Prominent cardiac fat pad. Mildly displaced fracture of the posterior right 5th rib right chest Port-A-Cath with tip in the low SVC. Lines, Drains, and Airways Timeline Peripheral IV Peripheral IV Catheter 07/01/21 18 G Right Antecubital 10h Consult Orders: IP CONSULT TO TRAUMA CRITICAL CARE AND GENERAL SURGERY IP CONSULT TO CARE MANAGEMENT ASSESSMENT / PLAN: - Diet: general - Activity/Exercise: as tolerated - VTE Prophylaxis/Therapy: Lovenox - Bowel Regimen: miralax, senna, bisacodyl - GI Prophylaxis: NA - Void: spontaneous - Pain: tylenol, gabapentin, lidoderm, oxycodone - Antibiotics: NA - Dressing: NA - Cultures: NA - Disposition: Transfer to general care floor today. Mechanism of Injury: Fell backwards from standing height, landing on back. TTS: Needs SAS: Needs #1 Pneumothorax Trauma Initial #2 Fracture Rib Single Closed Initial Right #3 Traumatic Subcutaneous Emphysema Sequela Mildly displaced right 5th rib with a small pneumothorax and moderate subcutaneous emphysema. - Continue rib fracture protocol, non-operative management - Chest xray is stable this morning, repeat again tomorrow morning - Continue to use incentive spirometry 10 times every hour while awake - Continue multimodal pain regimen #4 Abuse Tobacco Smoking #5 Oxygen Dependent - Patient tells me she has been requiring oxygen at home for about 3 weeks now. She states at her last oncology followup appointment she had low oxygen saturations, so she was sent to a construction worker who put her on 3L NC, which she uses mostly at night. She states she still needs to have a sleep study done. She does not have a formal COPD diagnosis, but presumed she has it, given her smoking history and pulmonary function. Would like to titrate down on her oxygen as much as possible so that we do not decrease her drive to breathe. Oxygen saturation goal would be 88-92% Dispo: Will transfer to general care today. Patient should continue to work with PT/OT and wean oxygen. She states she lives at home with her who would be able to help her with any needs. Will follow up with PT/OT for safety evaluation. Please feel free to page the Trauma Service at [phone] with any questions in regards to the plan of care. All cares currently per the Surgical ICU. Please feel free to page the Trauma Service at [phone] if we can be of any assistance. Bj Bai M.D. - 07/02/2021 9:33 AM CDT ASSESSMENT / PLAN Reviewed, discussed, examined, and agree with documentation of Trauma Service. Also reviewed with the entire Surgical Critical Care Team in the ICU. I did observe patient ambulating in the unit. Duringour bedside evaluation, she is sitting up in a bedside chair. Chest x-ray looks okay. Pain control is reasonable. She is working on pulmonary hygiene. She is on an oral diet of choice. Chest x-ray doesnot reveal any substantial pneumothorax that I can appreciate. I did review CT scan of her chest. She has one posterior rib fracture. I do not believe this would warrant operative intervention. She is n ormally on oxygen of 3 L per nasal cannula at home. She has significant underlying smoking history and COPD. We are all in agreement that she likely meets criteria for transfer to a floor setting today. Discussed fully with patient. No family members present. Bj Bai M.D. CT CT Job ID: [id number]/[facility] documented in this encounter H&P Notes Celio Augustin, D.O. - 07/02/2021 2:04 AM CDT REFERRAL SOURCE [facility] Trauma Surgery REASON FOR ADMISSION GLF with R 5th rib fracture and pneumothorax HISTORY OF PRESENT ILLNESS Monki Gallego is a 70 y.o. woman who presents from the [facility] ED status post a mechanical ground level fall where she landed on her right side. Patient did not hit her head or lose consciousness.Patient is not on any blood thinners. Patient was able to ambulate at the scene. Workup in the emergency department demonstrated a displaced right 5th rib fracture and small pneumothorax. Patient was transferred to the [facility] Emergency Department. CT chest was a was obtained which confirmed a mildly displaced for right 5th rib with a small pneumothorax and moderate subcutaneous emphysema. There were no other acute traumatic findings in the abdomen and pelvis. In the emergency department patient had heart rates in 50 to 60s, SBP's 103 to 120s and saturating greater than 97% on 4 L nasal cannula. Patient was admitted to the [facility] SICU for pulmonary hygiene. Upon arrival, patient is saturating on 4 L nasal cannula. Patient reports some right-sided chest wall/back pain but denies any chest pain, shortness of breath, abdominal pain, or any other pain in her extremities. She reports that she wears 3 L of oxygen at home but not normally at night. She denies any allergies. If she was unable to make decisions for herself herself, Amor her would be her surrogate decision maker. REVIEW OF SYSTEMS Pertinent items are noted in HPI; all other review of systems was negative. PAST MEDICAL/SURGICAL HISTORY COPD HTN HLD Ovarian cancer status post hysterectomy SOCIAL HISTORY Current everyday smoker FAMILY HISTORY No pertinent family history OBJECTIVE I have reviewed the current vital sign data as applicable to this admission. PHYSICAL EXAM General appearance: obese, in no acute distress Neurologic: alert, oriented and GCS 15 HEENT: wearing glasses and normocephalic, without obvious abnormality Chest: bilateral breath sounds and right sided chest wall tenderness Heart: regular rate and rhythm Abdomen: non-distended, non-tender and soft Extremities: warm, well perfused and no deformities Skin: No abrasions or ecchymosis DIAGNOSTICS I have reviewed relevant laboratory, imaging, and other diagnostics as applicable. ASSESSMENT / PLAN PLAN BY SYSTEMS: HEMODYNAMICS/CV: - HR: 60's; SBP: 103-120's; MAP: 70-80's - lactate: pending - ECHO: n/a - EKG: Sinus bradycardia with first-degree AV block, low anterior forces - troponin: pending - Home meds: amlodipine, ASA 81, atenolol, losartan, atorvastain Plan: - maintain MAPs >65 - order atorvastatin and ASA - hold other BP meds - f/u lactate and troponin NEUROLOGIC: - GCS: 15 - pain medications: Tylenol, gabapentin, oxycodone and Dilaudid PRN., Lidoderm patch - sleep: Melatonin - delirium: None - sedation: None Plan: - continue multimodal pain regimen PULMONARY: - VB.36, pCO2 62 - CXR: Right-sided displaced rib fracture, right IJ Port-A-Cath Plan: - rib fracture protocol - PRN DuoNeb and saline nebs - CPAP TID and QHS - AM chest x-ray RENAL: - mIVF: 75 cc/hr - sodium 132, potassium 5.3, creatinine 1.11 Plan: - patient able to get up out of bed to urinate, no Hogan at this time - will discontinue fluids once enough p.o. intake - continue to follow renal function, electrolytes, and UOP closely ID: - Tmax: 36.8 - WBC: 12 - antibiotics: none - cultures: none Plan: - COVID pending - no issues, continue to monitor HEME: - Hgb: 15.1 - Plts: 178 - INR: Deferred - TEG: Deferred Plan: - no concern for bleeding, continue to monitor VASCULAR ACCESS: - PIV GI/NUTRITION: - diet: Regular - bowel regimen: MiraLAX, senokot, bisacodyl PRN Plan: - no issues, continue to monitor ENDOCRINE: - glucose: 88 - insulin: none - steroids: none Plan: - no issues continue monitor MUSCULOSKELETAL: - PMR consulted. - activity: ad brandi Plan: - PT/OT consult -TTS tomorrow SKIN: - repositioning per nursing PROPHYLAXIS: - DVT: enoxaparin - GI: none CODE STATUS: - Full SURROGATE Amor - DISPOSITION: - ICU, likely floor later today Everett Augustin D.O. General Surgery SICU Pager [phone] [facility] [employer] MANAGER documented in this encounter Consult Notes Jocelyne Donald M.D. 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 She reports feeling in her usual state of health and was walking out of [place]. She misjudged a sidewalk height, which was an uneven surface, and fell. No presyncope or syncope. She fell onto [address] and her back hit a disabled parking sign on the way down. She was admitted to the ICU due tohigher risk of respiratory failure and was transferred to the floor due to stable respiratory statusand stable CXR. No recent changes in meds. No signs of acute illness. Basic diagnostic evaluation unrevealing other than mild elevation of WBC, sodium of 132 (chronic), and venous pCO2 60s and bicarb 29. Magnesium is 1.2. Person-Centered History: General (e.g. 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 Current Outpatient Medications on File Prior to Encounter: ??? amLODIPine (NORVASC) 10 mg tablet, Take 10 mg by mouth daily. ??? atenoloL (TENORMIN) 50 mg tablet, Take 50 mg by mouth 2 (two) times a day. ??? losartan (COZAAR) 50 mg tablet, Take 25 mg by mouth daily. Half tablet daily, 25mg daily dose (recent drop in dose) ??? simvastatin (ZOCOR) 40 mg tablet, Take 40 mg by mouth at bedtime. ??? sodium chloride 1 gram tablet, Take 1 g by mouth 2 (two) times a day with meals. ??? aspirin [address] tablet, Take 81 mg by mouth daily. ??? calcium carbonate-vitamin D3 500 mg(1,250mg) -125 unit per tablet, Daily ??? gabapentin (NEURONTIN) 300 mg capsule, Take 300 mg by mouth 4 (four) times a day. REVIEW OF SYSTEMS Pertinent items are noted in HPI; all other review of systems was negative. OBJECTIVE VITAL SIGNS Temperature: [36.2 ??C-36.9 ??C] 36.9 ??C Heart Rate: [54-68] 67 Resp Rate: [12-24] 16 Blood Pressure: (92-130)/(51-104) 118/69 SpO2: [74 %-99 %] 90 % Flow Rate (L/min): [1 L/min-4 L/min] 1 L/min Height: [167.6 cm] 167.6 cm Weight: [94.7 kg-97.5 kg] 97.5 kg BSA (Calculated - sq m): [2.13 sq meters] 2.13 sq meters BMI (Calculated): [34.7 kg/m??] 34.7 kg/m?? Pulse Rate: [49-67] 64 PHYSICAL EXAM General: Alert, interactive, not acutely ill, no apparent distress. Odor of tobacco smoke present. Skin: No rashes or lesions on visualized skin. Eyes: Pupils equal and round. Sclera anicteric. ENT: Hearing grossly intact. Lungs: Normal rate and effort. Clear to auscultation. No wheezes. Symmetric breath sounds. Heart: Regular rate and rhythm. No murmurs appreciated. Trace extremity in the left danielson. Abdomen: Bowel sounds normoactive, nontender. Neuro: Nonfocal. Mental: Mood and affect congruent. Alert and oriented. Attention intact. No evidence of disorganizedthinking. RASS 0. CAM negative for acute delirium. 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 DIAGNOSTICS I have personally reviewed labs and imaging. Outside PFTs reviewed: FVC is 1.57 which is 54% of predicted. FEV1 is 1.1 which is 48% of predicted. FEV1/FVC is 70 with a predicted of 78. There is no bronchodilator response (<200 mL and/or <12% improvement) ASSESSMENT / PLAN Ms. Gallego is hospitalized on [facility] Trauma for evaluation and management of: Pneumothorax Trauma Initial #1 Pneumothorax Trauma Initial #2 Fracture Rib Single Closed Initial Right #3 Traumatic Subcutaneous Emphysema Sequela #4 Abuse Tobacco Smoking #5 Chronic Respiratory Failure With Hypoxia (HCC) #6 Chronic Obstructive Pulmonary Disease Without Exacerbation (HCC) #7 History Of Falling #8 Inappropriate Antidiuretic Hormone Syndrome (HCC) What Matters to Ms. Gallego: unclear Medication review: reconciled Nutrition/hydration: general diet Sleep: abnormal Tubes/lines: PIV and Oxygen VTE prophylaxis: enoxaparin Delirium screening: CAM negative for acute delirium on exam Decision-making capacity: intact Baseline Mobility: BMAT Level 4 (Able to stand and walk) Current Activity/Mobility: Unknown Fall Injury Prevention: Assisted mobility Code status: Full Code Home environment and caregivers: from home independent Anticipated disposition plan: Home Counseling was provided [id number] at bedside regarding the plan of care as stated above. I personally spent over half of a total 50 minutes in counseling and coordination of care as documented above. RECOMMENDATIONS: 1. Wean oxygen to maintain O2 sats 88-92% but not higher than this, given chronic CO2 retention 2. Please obtain formal daytime O2 assessment tomorrow to estimate O2 needs at rest and with activity; she may need an updated O2 prescription prior to discharge 3. Please give magnesium sulfate 2 grams IV and recheck magnesium 4. Continue to monitor sodium daily while hospitalized; please resume her home salt tabs for SAIDH and stop giving IV crystalloid as this could worsen hyponatremia 5. Agree with holding home antihypertensives acutely as BP is normal. Given her bradycardia with first degree block and reduced CrCl, it would be reasonable to stop atenolol entirely and remove from her discharge med list. 6. Please check orthostatic vitals tomorrow AM - we will provide recommendations on management of her home meds of amlodipine and losartan prior to discharge Thank you for the opportunity to care for this patient. We will follow this patient peripherally to close the loop on above recommendations. Please page the Geriatric Consult service at [phone] with any questions or concerns during daytime hours (7am-7pm, including weekends and holidays). For urgentquestions after hours, please page [phone]. Corie Duque L.I.C.S.W., M.S.W. - 07/02/2021 2:43 PM CDTAssociated Order(s): IP CONSULT TO CARE MANAGEMENT Psychosocial Assessment SUBJECTIVE DEMOGRAPHIC INFORMATION Referral Source: Screening Tools Referral Name: Trauma critical care and surgery Referral Reason: Discharge Planning Person(s) present during interview: Patient,Spouse,Family Primary care clinic and provider: ELSEWHERE, PCP Primary Language: Marshallese Adult Caregiver Services Used: No Legal Information: Legal Decision Maker: Self Citizenship: Citizenship: [place] Citizen Resident Status: [place] Resident REASON FOR CONSULT Discharge Planning Disclaimer: The patient and family was advised regarding the various topics to be interviewed duringthis evaluation. Patient consented to proceed. The information provided in the assessment is based on review of the medical record as well as the face to face interview with the patient and family. Thepatient and family was advised that the content of this interview will be shared with the health care team. It was discussed with the patient that staff are mandated reporters and they reported understanding. Past Medical History: Diagnosis Date ??? Hypertension NOS ??? 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 HYSTERECTOMY SOCIAL HISTORY Early growth and development: The patient met social and developmental milestones as expected. Family of Origin: The patient resides with her spouse Amor. The couple have two children a son who is present today with the patient and her spouse as well as a daughter living in [place]. Marital Status / Family / Household Status: Support Systems: Spouse,Children. We have not received permission to contact them. 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 Past: None reported. ENVIRONMENTAL SUPPORTS Current Living Situation: Private residence Patient's Home Environment: House Anticipated modifications to the patient's home environment: None FUNCTIONAL STATUS (ADL's and IADL's) Functional Status: Independent Level of Assistance: Independent Dressing: Independent Feeding: Independent Bathing: Independent Grooming: Independent Toileting: Independent Transfer to/from Bed, Chair, Etc.: Independent Mobility: Independent Meal Prep: Independent Medication Setup/Administration: Independent Telephone Use: Independent Housekeeping: Independent Shopping: Independent Managing Finances: Independent Behavior: Oriented Communication: Can write,Talks,Understands speaking,Understands Marshallese It is anticipated that the patient will need assistance with None. 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 Denies any other formal supports. Informal supports include the patients spouse and children. FINANCES/INSURANCE Primary insurance: [employer] [place] [employer]ST SHARE Secondary insurance: N/A Income Information Does the Patient have any Financial Concerns?: No Income Source: Unemployed ADVANCE DIRECTIVES none DISCHARGE PLANNING Barriers To Discharge: None Strengths: Support of immediate family Type of Residence: Private residence Support Systems: Spouse,Children Assistance Recommended after Discharge: None Home Care Services: No Anticipated Discharge Destination: Home or Self Care Does the patient need discharge transport arranged?: No OBJECTIVE MENTAL HEALTH Mental Health History: Patient reports no mental health history and no current concerns Current Psychological Symptoms: Patient Appearance: Healthy,Relaxed,Well-groomed Behaviors Observed: Calm,Pleasant,Interactive Patient Level of Consciousness: Alert and oriented Status of Patient's Memory: Intact Patient Cooperation: Cooperative Patient Mood: Euthymic Patient Affect: Mood-congruent Quality of Patient's Speech: Within normal limits for volume, rate and tone Descriptor of Thought Content: No abnormality Thought Process Descriptor: Intact Suicide Risk and Safety Risk Assessment: Attempted suicide within last 30 days?: No Substance abuse history or abuse within last 30 days?: No Homicidal: Homicidal Risk Current Homicidal Ideation: No SUBSTANCE USE Cigarette smoker Mental Health Treatment History No history of Psychiatric Treatment noted Current Stressors Recent fall resulting in hospitalization Coping Skills/Strengths Support of immediate family ASSESSMENT / PLAN DISCUSSION Social work met with the patient and her spouse Amor along with son Guanakito to complete an assessment based on the patients recent hospital admission. The patient shares that she is well supported at home. She denies the need for a chcf facility and plans to return home with the support of her and family. The patient reports living in a ranch style home with her bedroom and bathroom easily accessible. While she has been using a walker for mobility in the hospital the patient feels she will not need this once home. She was open to working with PT/OT for recommendations for any adaptive equipment that may be suggested. The patient shares that she was started on oxygen approximately three weeks ago. She reports her oxygen company as [employer]. While advised to use oxygen she notes she has been using this mostly at night using 3L. She occasionally wears oxygen during the daytime when she feels it is needed. The patient understands that an oxygen reconnect will be facilitated at discharge. IMPRESSION Mrs Monik Gallego is a pleasant 70 yr old female who is currently admitted following a recent fall resulting in a rib fracture and pneumothorax. She was seated upright in bed today appearing to be in good spirits expressing interest is being able to go home in the near future. The patient identifies her spouse as a strong support and feels confident that she will be able to transition back to her homeliving environment. INTERVENTIONS Psychosocial assessment completed PLAN ?? Level of care required or recommended at discharge: anticipate return to home with support of family. Oxygen Reconnect: Durable Medical Equipment - Admitted Since 07/01/2021 [facility] [place] [id number], [place] [address] Contact: intake Respiratory Equipment : oxygen Oxygen provider reports patient???s current orders are for 3 liters. NURSING: - Arrange transportation oxygen tank if needed. - If new oxygen requirements are needed, assist primary service with new prescription and fax to provider. PRIMARY SERVICE: - Complete and sign new oxygen prescription if needed. SOCIAL WORK: -Reviewed patient's insurance coverage for the services noted above. The patient and appear(s) to have an understanding of this. ?? -Will continue to follow and assist if needs arise. Anticipated barriers to the transition of care/plan: none Marinaa Torres, M.S.W. 07/02/2021 Sade Hartman P.T., Margarita.P.T. - 07/02/2021 9:27 AM CDT Physical Therapy Inpatient Evaluation/Treatment SUBJECTIVE Patient's Name: Monik Gallego Referring/Attending Provider: Eneida Florian M.D. Medical Diagnosis: Pneumothorax Trauma Initial [S27.0XXA] Fracture Rib Single Closed Initial Right [S22.31XA] Reason for Referral: PT Evaluate and Treat Functional Decline/Deblity Onset Date: 07/01/21 Payor: [employer] / Plan: [employer] COST SHARE / Product Type: Cost Share / PERTINENT MEDICAL / SURGICAL HISTORY: Patient Active Problem List Diagnosis ??? Pneumothorax Trauma Initial Past Surgical History: Procedure Laterality Date ??? HYSTERECTOMY History of Present Illness: GLF with R 5th rib fracture and pneumothorax Prior Function/Occupational Profile Lives With: Spouse ADL Assistance: Independent IADL/Homemaking Assistance: Independent IADL/Homemaking Assistance Comments: does the heavy tasks (carrying the laundry basket). cooking and cleaning is a shared role with . Driving: Independent Occupational Role: Retired Prior Mobility/Functional Transfers Level of [place]: Independent Home Equipment Bathroom Equipment: None Home Living Type of Home: House Home Layout: Able to live on main level with bedroom/bathroom,Laundry in basement Home Access: Stairs to enter without rails Entrance Stairs: Number of Steps: 2 Bathroom Shower/Tub: Tub/shower unit Tub/shower unit location: Main floor Tub/shower unit enclosure type: Curtain Bathroom Toilet: Standard Bathroom Accessibility: No Family/Caregiver Present: No Patient/Caregiver Goals: Return home. Patient Comments: Patient reports pain 2-310. Fall Risk (65 and older) Fall in the last 12 months: Yes Did you have an injury with the fall?: Yes Are you fearful of falling?: No (try to be careful) Fall Risk Comments: 1 fall this hospitalization resulting in rib fractures and a pneumothorax OBJECTIVE Vitals taken during session: O2 sats: 94% and O2 flow: 3 L/min nasal cannula General ROM / Strength Screening ROM - Upper Extremity Screen: Addressed, no concerns noted ROM - Lower Extremity Screen: Addressed, no concerns noted Strength - Upper Extremity Screen: Addressed, no concerns noted Strength - Lower Extremity Screen: Addressed, no concerns noted Sit to Stand Transfers Transfer Surface: Chair,Bed Transfer Equipment: Gait belt,Front wheeled walker Level of Assistance: Modified Independent,Independent Stand to Sit Transfers Transfer Surface: Chair,Bed Transfer Equipment: Gait belt,Front wheeled walker Level of Assistance: Modified independent,Independent Gait Assessment/Training Distance (m): 90 m Device: Gait belt,Front-wheeled walker Level of Assistance: Modified Independent Training/Intervention: Instructed on use of the walker for energy conservation and pain management for the first few times getting up. Instructed on positioning of the walker. Recommend 4-5 walks per day with nursing and weaning off the walker as patient feels comfortable. Response: O2 maintained above 90% on 3L NC Education provided this session: Educated patient on the progression of mobility. The following coordination of care occurred today: Co-treatment with: Occupational Therapy Patient's nurse was contacted and patient's status was discussed Patient was left in bedside chair at end of session with call light in reach, all needs met and questions answered. Outcome Measures [facility] Inpatient Short Form: -[facility] Basic Mobility (V.2) How much help from another person do you currently need???If the patient hasn't done an activity recently, how much help from another person do you think he/she would need if he/she tried? 1. Turning from your back to your side while in a flat bed without using bedrails?: None 2. Moving from lying on your back to sitting on the side of a flat bed without using bedrails?: None 3. Moving to and from a bed to a chair (including a wheelchair)?: None 4. Standing up from a chair using your arms (e.g., wheelchair, or bedside chair)?: None 5. To walk in hospital room?: None 6. Climbing 3-5 steps with a railing?: None AM-[facility] Basic Mobility (V.2) Raw Score: 24 AM-[facility] Basic Mobility (V.2) Standardized Score: 57.68 Interpretation: Clinicians answer the -[facility] Inpatient Short Form based on observed patient activityand/or clinical judgement (ie. patient can be scored without physically performing each activity) Based on scoring guidelines using the raw score value: Those going to home had an average score of 20.1 Those going home with home care had an average score of 17.9 Those going to SNF had an average score of 14 Those going to IRF had an average score of 13.6 Those going to a LTAC had an average score of 11.5 Assessment Discharge Therapy Needs - PT: No further skilled therapy Clinical Impression of today's session: Patient was agreeable to therapy. Facilitated transfers and gait. Patient demonstrates modified independent gait with the front wheeled walker. Her pain is controled and she is able to mobilize withoutdifficulty. Recommend she continue to ambulate 4-5 x per day. She may use the walker as needed and wean from it throughout hospital course as she feels comfortable. If she decides she needs a walker atdischarge the physicians may write a prescription. Plan to sign off. Rehab potential: Ms. Gallego has Good potential to achieve established physical therapy goals within the time frame outlined below. Progress: All PT goals achieved Tiered PT Evaluation Codes: Comorbid Conditions: Cardiopulmonary disease,Obesity Personal Factors: Needs assistive device,Sedentary lifestyle,History of falls Examination elements: 3 Clinical Presentation: Evolving Clinical Decision Making: Moderate complexity clinical decision making Functional Goals: PT Inpatient Goals PT Goal #1: Patient will demonstrate modified independent gait with least restrictive gait aid. PT Goal #1 Status: Achieved Plan Patient agrees with the plan of care and goals. Treatment Plan: Plan: Discontinue PT PT Frequency: One-time visit Requires Inpatient Follow-Up: No Treatment interventions may include: Treatment/Interventions: Therapeutic functional activity Billing: Time Spent with Patient PT Evaluation (min): 15 min Therapeutic Activity (min): 15 min Total Timed Units (min): 15 min Total Treatment Time (min): 30 min Sade Hartman P.T., D.P.T. Margoth Garica O.Keena. - 07/02/2021 9:02 AM CDT Occupational Therapy Acute Hospital Inpatient Evaluation/Treatment SUBJECTIVE Patient's Name: Monik Gallego Referring/Attending Provider: Eneida Florian M.D. Medical Diagnosis: Pneumothorax Trauma Initial [S27.0XXA] Fracture Rib Single Closed Initial Right [S22.31XA] Reason for Referral: Occupational Therapy Evaluation and Treatment Functional Decline/Deblity Onset Date: 07/01/21 Payor: [employer] / Plan: [employer] COST SHARE / Product Type: Cost Share / PERTINENT MEDICAL / SURGICAL HISTORY: Patient Active Problem List Diagnosis ??? Pneumothorax Trauma Initial ??? Fracture Rib Single Closed Initial Right ??? Traumatic Subcutaneous Emphysema Sequela ??? Abuse Tobacco Smoking ??? Oxygen Dependent Past Surgical History: Procedure Laterality Date ??? HYSTERECTOMY History of Present Illness:Presents following a ground level fall with right 5th rib fracture and pneumothorax. Occupational Profile: Prior Function/Occupational Profile Dominant Hand: Right Lives With: Spouse ADL Assistance: Independent IADL/Homemaking Assistance: Independent IADL/Homemaking Assistance Comments: does the heavy tasks (carrying the laundry basket). cooking and cleaning is a shared role with . manages meds independently Driving: Independent Occupational Role: Retired Prior Mobility/Functional Transfers Level of [place]: Independent Home Living Type of Home: House Home Layout: Able to live on main level with bedroom/bathroom,Laundry in basement Home Access: Stairs to enter without rails Entrance Stairs: Number of Steps: 2 Bathroom Shower/Tub: Tub/shower unit Tub/shower unit location: Main floor Tub/shower unit enclosure type: Curtain Bathroom Toilet: Standard Bathroom Accessibility: No Home Equipment Other DME Equipment : Other (Comment) (flat bed) Bathroom Equipment: None Family/Caregiver Present: No Patient/Caregiver Goals: Return home. Patient Comments: Patient agreeable to combined therapy assessment. She reports feeling near her prior level of function with no concerns returning home at hospital dismissal. She asks appropriate questions about her status and reports pain 2-3/10 in right ribs this did not increase with activity. Fall Risk (65 and older) Fall in the last 12 months: Yes Did you have an injury with the fall?: Yes Are you fearful of falling?: No (try to be careful) Fall Risk Comments: 1 fall this hospitalization resulting in rib fractures and a pneumothorax Precautions Other Precautions: respiratory 3L/min; fall OBJECTIVE Vitals taken during session: Pulse rate: 61-82 bpm, Blood pressure: 110/60 mmHg, MAP: 75, O2 sats: 93% and O2 flow: 3 L/min nasal cannula Vitals monitored throughout session; within normal ranges. Activity Tolerance Endurance: Tolerates 10-20 minutes of activity,Requires rest breaks Sitting Tolerance: WFL Standing Tolerance: WFL for self-cares Gross Hand Function Right Hand Gross Grasp: Functional Left Hand Gross Grasp: Functional Balance Static Sitting-Balance: Good (Maintains balance without support) Dynamic Sitting-Balance: Good (Maintains balance without support) Static Standing-Balance: Good (Maintains balance without support) Dynamic Standing-Balance: Fair (Maintains balance with handheld/contact guard assistance) Balance Comments: benefits from FWW for dynamic tasks and mobility at this time General ROM / Strength Screening ROM - Upper Extremity Screen: Addressed, no concerns noted ROM - Lower Extremity Screen: Addressed, no concerns noted Strength - Upper Extremity Screen: Addressed, no concerns noted Strength - Lower Extremity Screen: Addressed, no concerns noted Cognition Cognitive assessment method: Therapist observations Arousal/Alertness: Appropriate responses to stimuli Attention: Addressed, no concerns noted Initiation: No difficulty with initiation Orientation: Oriented X4 Following Commands: Follows all commands/directions without difficulty Memory: Addressed, no concerns noted Problem Solving: Addressed, no concerns noted Executive Functioning: Addressed, no concerns noted Safety/Judgment: Addressed, no concerns noted Cognition Comments: No overt concerns identified throughout assessment. Appropriate insight into functional limitations and asks good questions in preparation for homegoing. Bed, Chair, Wheelchair Transfers # of Assistants: 1 Transfer Surface: Bed,Chair Transfer Approach: To and from,Ambulating Transfer Equipment: Front wheeled walker,No device Level of Assistance: Supervision/ Set-up,Contact guard assistance Assessment/Delivery: Assessed,Facilitated,Instructed Comments: Instructed patient in use of FWW for longer distance transfers to assist with energy conservation and balance. Patient was able to stand from edge of bed and from the chair today without use of device and no loss of balance or instability. Facilitated transfer to/from sink in room with no gait device and SBA, patient tolerated well. Grooming Grooming Location: Standing at sink Grooming Delivery: Assessed,Facilitated Grooming Level of Assistance: Supervision/Set-up,Modified independent Grooming Comments: Patient tolerates standing to complete oral hygiene on 3L/min with no loss of balance or physical assistance needed. Patient manages glasses and face washing seated at edge of bed. LE Dressing LE Dressing Location: Chair LE Dressing Delivery: Educated,Assessed LE Dressing Items Included: Socks LE Dressing Level of Assistance: Modified independent LE Dressing Comments: Assessed patient's ability to doff/don socks using figure four technique whilesitting, no difficulty or pain reported. Educated patient on completing all dressing tasks seated tomitigate fall risk and conserve energy. ADL Comments ADL Comments: Patient is seated at the edge of bed upon therapist arrival, just finished breakfast. Educated patient on the role of occupational therapy in the acute care setting. Initiated collaborative discussion with patient regarding previous supports and participation in activities of daily living. Initial evaluation completed alongside physical therapist in order to maximize safety and patient outcomes, each therapy discipline and addressed different aspects of treatment session. Facilitated household distance ambulation, home going safety, energy conservation education and standing grooming.Patient demonstrates good activity tolerance on 3 L/minute with oxygen saturations above 90%. Education provided today: Educated patient on Energy-Saving techniques.. Discussed with patient the importance of conserving energy in order to participate and return to safe completion of activities of daily living and instrumental activities of daily living. Discussed ways patient can: plan ahead, schedule rest, pace during activities, reduce sudden or prolonged strains, incorporate proper body mechanics, engage in diaphragmatic breathing and change/identify effects of the environment that may impact safety/energy levels during activities of daily living and/or instrumental activities of daily erik ing. Lastly, educated patient on symptoms that indicate that you may be working too fast or that thework is too demanding including shortness of breath, fatigue, chest pain and light-headedness. Team Communication: Patient's nurse was contacted and patient's status was discussed Co-treatment with: Physical Therapy Inpatient AVS Complete - OT: No Outcome Measures AM-[facility] Inpatient Short Form: Putting on and taking off regular lower body clothing?: None Putting on and taking off regular upper body clothing?: None Taking care of personal grooming such as brushing teeth?: None Bathing (including washing, rinsing, drying)?: None Toileting, which includes using toilet, bedpan, or urinal?: None Eating meals?: None Daily Activities Raw Score (max 24): 24 Daily Activities Standardized Score: 57.54 Interpretation: Clinicians answer the AM-[facility] Inpatient Short Form based on observed patient activityand/or clinical judgement (ie. patient can be scored without physically performing each activity) Based on scoring guidelines using the raw score value: Those going to home had an average score of 20.1 Those going home with home care had an average score of 17.9 Those going to SNF had an average score of 14 Those going to IRF had an average score of 13.6 Those going to a LTAC had an average score of 11.5 Patient was left in bedside chair at end of session with call light in reach, all needs met and questions answered. Contact monitoring: PPE used during therapy: Therapist was wearing the following PPE throughout entire session: surgicalmask, eye protection and gloves Patient was wearing a mask during therapy session: yes- for out of room ambulation only Assessment Discharge Therapy Needs - OT: No further skilled therapy Skilled therapy can include occupational therapy provided by home health, outpatient clinic, or a post-acute facility. The location of these services is determined by the patient's care team in partnership with patient/family. Barriers to Discharge Home: None Clinical Impression: Patient presents to skilled occupational therapy following ground level fall with displaced right rib fracture and small pneumothorax. She tolerates activity on 3 L/minute via nasal cannula throughout therapy assessment this date. She is near her baseline level of function and all acute care OT goals have been achieved. She has no concerns about plans to return home at hospital dismissal and will have assistance as needed from her spouse. Rehab potential: Ms. Gallego has excellent potential to achieve established occupational therapy goalswithin the time frame outlined below. Tiered OT Evaluation Codes: Personal Factors: Needs assistive device,Sedentary lifestyle,History of falls Occupational Profile and History review: Expanded Performance Deficits: 1 - 3 performance deficits Evaluation Complexity: Low Functional Goals: OT Goal #1: Patient will verbalize understanding of diaphragmatic breathing to assist with energy conservation and pulmonary function. OT Goal #1 Status: Achieved OT Goal #2: Patient will demonstrate functional standing tolerance with adequate oxygen saturations for self-care activities prior to homegoing. OT Goal #2 Status: Achieved (on 3L/min) Progress: All OT goals achieved Plan Occupational Therapy Attestation Statement: Patient agrees with the plan of care and goals. OT Frequency: OT Amount: 1 visit per day OT Frequency: One-time visit OT Inpatient Duration : Until goals are met Requires Inpatient OT Follow-Up: No Plan: Discontinue OT Treatment interventions may include: Treatment Interventions: Self-care/home management Billing: Time Spent with Patient OT Evaluation (min): 20 min Home Management Training (min): 12 min Time Calculation Total Timed Units (min): 12 min Total Treatment Time (min): 32 min Marg[place] Garcia O.T. Harper Mena M.B.B.S. - 07/02/2021 2:34 AM CDTAssociated Order(s): Trauma Critical Care and General Surgery consult ([facility]) - Trauma SUBJECTIVE Trauma Critical Care and General Surgery consult ([facility]) - Trauma Referring Provider: Gray Calderón M.D. REASON FOR CONSULT Right sided rib fracture with pneumothorax HISTORY OF PRESENT ILLNESS Ms. Gallego is a 70 y.o. female who was transferred from [place] [facility] for the ongoing management of a right-sided rib fracture and small pneumothorax. This morning the patient was walking outside, her foot became course in the side of the cup and she fell on concrete surface with her back hitting a parking pole. Patient denies any loss of consciousness or head trauma. She is not taking any anticoagulation. She was helped back up by a friend and presented to her local emergency department. Her main concern is of right-sided thoracic back pain. A chest x-ray was performed in the showed right-sided rib fractures and a tiny pneumothorax. The patient was transferred to [place] for ongoing management. The patient is saturating 90% on 4 L of nasal cannula with mild shortness of breath when talking, hemodynamically she is stable with a blood pressure in the 120s heart rate in the 60s. She endorses significant right thoracic back pain exacerbated by movement. She denies any pleuritic chest pain. CT chest demonstrates a right posterior 5th rib fracture with a small pneumothorax and moderate subcutaneous emphysema. Anticoagulation/antiplatelets: Aspirin 81 mg PMH: ?? Current smoker half a pack a day ?? Home oxygen requirement: 3 L nasal cannula at night and intermittently during the day ?? Undergoing workup for obstructive sleep apnea ?? Hypertension ?? History of ovarian cancer PSH - hysterectomy and bilateral salpingo oophorectomy All other systems reviewed and are negative. Past Medical History: Diagnosis Date ??? Hypertension NOS ??? 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 HYSTERECTOMY The following portions of the patient's history were reviewed and updated as appropriate: allergies,current medications, medical history, social history and surgical history. OBJECTIVE VITAL SIGNS Blood Pressure: (!) 124/53, Pulse Rate: (!) 57, Resp Rate: 17, Temperature: 36.8 ??C, SpO2: 96 % Constitutional General: She is not in acute distress. Appearance: She is not diaphoretic. HENT Head: Normocephalic and atraumatic. Nose: Nose normal. Mouth/Throat: Mouth: Mucous membranes are moist. Eyes Extraocular Movements: Extraocular movements intact. Pupils: Pupils are equal, round, and reactive to light. Cardiovascular Rate and Rhythm: Normal rate and regular rhythm. Pulses: Normal pulses. Heart sounds: Normal heart sounds. Pulmonary Effort: Pulmonary effort is normal. No respiratory distress. Breath sounds: Wheezing present. Comments: Right posterior lateral chest wall tenderness Abdominal Palpations: Abdomen is soft. Tenderness: There is no abdominal tenderness. There is no guarding. Musculoskeletal General: No swelling or tenderness. Normal range of motion. Cervical back: Normal range of motion. No tenderness. Skin General: Skin is warm. Capillary Refill: Capillary refill takes less than 2 seconds. Neurological General: No focal deficit present. Mental Status: She is alert and oriented to person, place, and time. Sensory: No sensory deficit. Motor: No weakness. DIAGNOSTIC FINDINGS I have reviewed laboratory, imaging, and other diagnostic studies. Clinically significant abnormal findings are as follows: Labs: -hemoglobin 15.1 White cell count 12 Platelets 178 Creatinine 1.11 Imaging DX Chest AP or PA and Lateral 2 Views Result Date: 07/01/2021 Impression: Comparison made to outside chest radiographs from earlier today (1800). Cortical irregularity/discontinuity and angulation likely represent acute fracture of the right lateral 6th and possibly 7th ribs with associated subcutaneous emphysema in the right lateral chest wall and right neck base. Curvilinear lucency along the superolateral aspect of the right lung and extending about the right lung apex is in keeping with the previously reported tiny predominantly lateral right pneumothorax.This has not significantly increased in size since the outside exam. Lingular and left basilar atelectasis. Prominent apical cardiac fat pad. Aortic calcifications. Right chest wall port with the tip at the superior cavoatrial junction. CT Abdomen Pelvis with IV Contrast, CT Chest with IV Contrast Result Date: 07/02/2021 Impression: 1. Mildly displaced right 5th rib with a small pneumothorax and moderate subcutaneous emphysema. 2. No acute traumatic findings in the abdomen and pelvis. ASSESSMENT / PLAN Ms. Gallego is a 70 y.o. female who is a current everyday smoker requiring 3 L nasal cannula home oxygen, who was transferred from [place] [facility] for the ongoing management of a right-sided rib fracture and small pneumothorax. This morning the patient was walking outside, her foot became course on the curbside and she fell on concrete surface with her back hitting a parking pole. Patient denies any loss of consciousness or head trauma. She is not anticoagulated. She was helped back upby a friend and presented to her local emergency department. Her main concern is of right-sided thoracic back pain. A chest x-ray was performed in the showed right-sided rib fractures and a tiny pneumothorax. The patient was transferred to [place] for ongoing management. The patient is saturating 90% on 4 L of nasal cannula with mild shortness of breath when talking, hemodynamically she is stable with a blood pressure in the 120s heart rate in the 60s. She endorses significant right thoracic back pain exacerbated by movement. She denies any pleuritic chest pain. CT chest demonstrates a right posterior 5th rib fracture with a small pneumothorax and moderate subcutaneous emphysema. Injuries: - mildly distended based posterior right 5th rib - small pneumothorax - moderate subcutaneous emphysema RECOMMENDATIONS 1. Admission to Trauma ICU 2. Aggressive pulmonary hygiene with DuoNebs, incentive spirometry, rib fracture protocol 3. Repeat chest x-ray in the morning to monitor lung volumes and pneumothorax 4. Multimodal pain management 5. TTS on 07/03 Please page [phone] (Trauma) with any questions. Plan and assessment were discussed with Dr. Florian, who was in agreement. Musa Gauthier.B.S. Associated attestation - Eneida Florian M.D. - 07/02/2021 6:01 AM CDT 70-year-old woman we received in transfer from an outside hospital after finding a right-sided rib fracture. Patient is a frail elderly 70-year-old female who smokes. She tripped at home. She landed on her back hitting a parking pole. She denies loss of consciousness or striking her head. She does not take anticoagulation. She presented to her home hospital due to chest pain. Of note patient uses 3 L nasal cannula oxygen at home at night and throughout much of the day. Primary Survey Airway: Patent the patient is speaking normally Breathing: Good breath sounds bilaterally, saturation normal Circulation: Good peripheral pulses, no external signs of hemorrhage Disability: Moving all extremities GCS 15 Exposure: No obvious injuries Secondary Survey HEENT: Normocephalic atraumatic. PERRL. EOMI. Tympanic membranes and oropharynx clear. Neck: Nontender. No step-offs. Lungs: Clear to auscultation bilaterally. Right-sided chest tenderness no obvious crepitus. Heart: Regular Abdomen: Soft, nontender, no rebound or guarding, with no seatbelt sign Pelvis: Nontender stable Back: Nontender, no step-offs Extremities: Atraumatic Imaging: CT CAP: Tiny right pneumothorax. Right chest wall subcutaneous emphysema. It is fairly limited. Lungs looks good. Minimally displaced right fifth rib fracture. Impression/plan: This is a frail 70-year-old woman who is a smoker on home oxygen who presents aftera fall. She has a single right-sided rib fracture but is a bit short of breath and requiring 4 L nasal cannula. Her underlying pulmonary disease puts her at high risk for pulmonary decline. Will admit her to the surgical intensive care unit for careful monitoring and rib fracture protocol. Will initiate an aggressive pulmonary toilet plan. documented in this encounter Nursing Notes Wendy Jhaveri R.N., PCCN - 07/03/2021 1:55 PM CDT Mrs. Gallego is alert, oriented, and vital signs remain stable. Ambulation is tolerated well and pain is managed with PO tylenol, positioning, and rest. She is tolerating oral intake well and voiding. Oxygen sats are maintained on 1 L via nasal cannula and she has transport and home oxygen set up; oxygen scripts were sent to [employer]. Discharge education was completed with Monik and her .Further needs or questions are denied at this time. She left the unit with transport to meet her at the doors. Demetria Hart M.S.N., R.N. - 07/02/2021 11:14 PM CDT Pt is refusing Cpap, different masks offered to pt, she can wear it for 10-15 min and says its is difficult to breath with mask on. Rt called multiple times, assessed pt. Bello Duarte R.RJerome, L.R.T. - 07/02/2021 5:57 AM CDT Patient is a 70 y.o. female admitted on 07/01/2021 Alert Information: Plan of Care: Pt arrived to ICU from ED overnight after fall w/ rib fx and small pneumothorax. Rib fx protocol initiated, CPAP TID and PM ordered. Pt does wear home o2 via 3L nasal cannula. Continue tomonitor cardiopulmonary status in ICU. Principal Problem Pneumothorax Trauma Initial Oxygen Therapy $Delivery Method: Nasal cannula Social History Tobacco Use Smoking Status Current Every Day Smoker ??? Packs/day: 0.50 ??? Years: 50.00 ??? Pack years: 25.00 ??? Types: Cigarettes Smokeless Tobacco Never Used No results for input(s): PO2 ART, PCO2 ART, PH ART in the last 24 hours. Skin integrity checked: Normal. documented in this encounter ED Notes Jesus Manuel Forbes M.D., M.B.A. - 07/02/2021 1:46 AM CDT Care of patient transferred to ri by Dr. Calderón. Disposition pending Trauma surgery recommendations. Briefly, this is a 70-year-old female who presents today after a fall and has been found to have ribfracture and apical pneumothorax. Trauma surgery is evaluating the patient. Plan at handoff is for admission likely to Trauma Service. VITAL SIGNS BP (!) 103/54 Pulse 60 Temp 36.8 ??C (Oral) Resp 17 SpO2 97% ED Course as of 07/02/21215 Sat Jul 02, 2021 0146 Trauma surgery has seen the patient and they are staffing. Anticipate admission. 215 Patient will be admitted to trauma ICU Final Diagnoses: as of 07/02/21215 Pneumothorax Trauma Initial Fracture Rib Single Closed Initial Right Jesus Manuel Forbes M.D., M.B.A. Resident 07/02/21216 Jimbo Berkowitz M.D., Ph.D. - 07/01/2021 11:53 PM CDT I have personally seen and examined this patient. I have fully participated in the care of this patient. I have reviewed all clinical information including history, physical exam, orders, and plan. I agree with the note of the resident. very pleasant 70-year-old female, past medical history as noted above. Apparently, was coming out of a [place]. Apparently the sidewalk was uneven with about a 1 and half this inch lip. She tripped, falling onto some gardening paving stones and then a handicap sign. She did not strike her head has noneck pain or loss of consciousness. It sounds as if she fell directly back onto an object on her right posterior side. She was taken to an outside facility where she was found to have a displaced rib fracture and a small pneumothorax. She was transferred here for trauma assessment. She actually looks really good and has a room air sat of 97%. We will get trauma cap with this mechanism. We will discuss situation with our colleagues in [facility]. Final disposition per that service. Final Diagnoses: as of 07/05/21 140 Pneumothorax Trauma Initial Fracture Rib Single Closed Initial Right Jimbo Berkowitz M.D., Ph.D. 07/01/21 0747 Jimbo Berkowitz M.D., Ph.D. 07/02/21 0001 Jimbo Berkowitz M.D., Ph.D. 07/05/21 1747 Gray Calderón M.D. - 07/01/2021 11:01 PM CDT SUBJECTIVE CHIEF COMPLAINT/REASON FOR VISIT Fall HISTORY OF PRESENT ILLNESS Patient is a 70-year-old female is being evaluated in the emergency department after a fall this morning, without head injury or loss of consciousness. Patient's past medical history is significant for COPD prescribed home oxygen (only uses at night), current everyday smoker, ovarian cancer status post hysterectomy/self injecting and chemotherapy and currently in remission, and hypertension. Patientstates that she was in [place] this morning getting [place] with friends when she had a mechanical fall from a slight elevation in the sidewalk. She fell back, and hit a handicap parking sign. She denies hitting her head or losing consciousness. She is taking to outside hospital in [place] for chest x-ray noted a displaced posterior rib fracture as well as a small pneumothorax. Due to concern for possibly expanding pneumothorax she was transferred here. Upon meeting with patient she is feelingwell aside from some right-sided back pain. She is currently on 4 L oxygen is not feel her breathing is worsening at all, and complains of no other symptoms or pain. REVIEW OF SYSTEMS Constitutional: Negative. HENT: Negative. Eyes: Negative. Respiratory: Negative for chest tightness, shortness of breath and wheezing. Cardiovascular: Negative. Gastrointestinal: Negative. Endocrine: Negative. Genitourinary: Negative. Musculoskeletal: Positive for back pain. Skin: Negative. Allergic/Immunologic: Negative. Neurological: Negative. Hematological: Negative. Psychiatric/Behavioral: Negative. OBJECTIVE Initial Vitals Temperature Pulse Rate Heart Rate Resp Rate Blood Pressure SpO2 07/01/21222207/01/212222 -- 07/01/21222507/01/21222207/01/212222 36.8 ??C 60 17 125/70 96 % Pain Score 07/01/212222 0 - No pain PHYSICAL EXAMINATION Constitutional: Nursing note and vitals reviewed. She appears not lethargic. No distress. HENT: Nose: Nose normal. Mouth/Throat: Mucous membranes are moist. Eyes: Conjunctivae and EOM are normal. Neck: Neck supple. Cardiovascular: Normal rate, regular rhythm, S1 normal and S2 normal. Pulses are strong and palpable. Capillary refill: takes less than 3 seconds, Pulmonary/Chest: Effort normal and breath sounds normal. There is normal air entry. Good air entry bilaterally, mildly coarse breath sound more pronounced at bases. Crepitus appreciated on right side Abdominal: Soft. Bowel sounds are normal. There is no hepatosplenomegaly. There is no abdominal tenderness. There is no guarding. Musculoskeletal: General: Normal range of motion. Cervical back: Normal range of motion and neck supple. Neurological: Alert and oriented to person, place, and time. Skin: Skin is warm, dry, intact and normal color. Psychiatric: She has a normal mood and affect. Behavior is normal. Judgment and thought content normal. ASSESSMENT/PLAN Patient is a 70-year-old female is being evaluated in the emergency department after a fall this morning, without head injury or loss of consciousness. Her vital signs are within normal limits, and sheis vitally stable. Outside chest x- ray showed a displaced posterior rib fracture and a small right-sided pneumothorax. A repeat chest x-ray performed here, showed a stable appearance of the right-sidedpneumothorax and confirmed the rib fracture. We will plan to obtain CT imaging of her chest as well as abdomen/pelvis and will reach out to our trauma acute Care colleagues for consultation. Overall she is doing quite well, with a very small stable pneumothorax. Plan: - morphine p.r.n. for pain - follow-up CT imaging - dispo per [facility] Gray Calderón M.D. Resident 07/02/21 0114 documented in this encounter Miscellaneous Notes Hospital Course - Damaris Arreguin APRN, C.N.P., M.S.N. - 07/02/2021 12:59 PM CDT #1 History Of Falling Ms. Monik Gallego was transferred [facility] as a green level traumaafter sustaining a backwards fall from ground level height. She denied hitting her head or loss of consciousness. This resulted in a right- sided rib fracture, and a small right pneumothorax with subcutaneous emphysema. After initial trauma evaluation in the emergency department, she was admitted to the Surgical ICU under the cares of the Trauma Service due to concerns regarding her baseline pulmonarystatus. She was observed overnight in the ICU with rib fracture protocol in place. No acute events or issues occurred. The next morning, the patient was able to ambulate with the assistance of the Physi blank Therapy, was saturating appropriately on her baseline 3L nasal cannula, her pain was well controlled on oral medications, and she was tolerating a regular diet. She was stable and was transferred to the floor for continued care. #2 Pneumothorax Trauma Initial #3 Fracture Rib Single Closed Initial Right #4 Traumatic Subcutaneous Emphysema Sequela CT imaging showed mildly displaced right 5th rib with a small pneumothorax and moderate subcutaneousemphysema. She was treated conservatively with rib fracture protocol, pain control, pulmonary hygiene including incentive spirometry, deep breathing and coughing exercises, and mobilization as tolerated. Daily chest x- rays were used to monitor lung beckford. The patient was provided with education on pulmonary hygiene and the usual sequelae following rib fractures, including the following: patient should continue with oral and/or transdermal pain control regimen to allow for participation in pulmonary hygiene. The patient may utilize a rolled up blanket or pillow against the chest wall to assist with pain control during pulmonary hygiene. The patient wasencouraged to be up out of bed as much as possible (when allowed) to decrease debility and improve pulmonary hygiene. Upon dismissal, patient encouraged to sleep with the head of the bed elevated utilizing a wedge or multiple pillows, or to sleep upright to decrease pain and assist with pulmonary hygiene. The patient also was educated on avoiding lifting >10 pounds and avoiding overhead activitiesfor approximately 6 weeks following dismissal to avoid chest wall pain/spasms. Upon dismissal patient will need to continue with pulmonary hygiene: the use of the Incentive Spirometry, a minimum of 10 times every hour while awake, along with coughing/deep breathing exercises. Upon dismissal patient will need to continue with pulmonary hygiene. Given her poor pulmonary statusprior to admission, we will have her follow up in 2 weeks with a chest x-ray and evaluation in the [facility]. #5 Chronic Obstructive Pulmonary Disease Without Exacerbation (HCC) #6 Chronic Respiratory Failure With Hypoxia (HCC) #7 Abuse Tobacco Smoking #8 Oxygen Dependent The patient is a current everyday smoker requiring 3L/min nasal cannula oxygen at home for about 3 weeks now after consultation with construction worker. She utilizes this mostly at night. Patient was continued on home oxygen during her hospitalization. Oxygen saturation goal 88-92%. Social work provided home oxygen reconnection. O2 study was performed while in the hospital demonstrating patient requires 1L NC during rest and activity. Patient is encouraged to follow-up with her primary care provider to discuss smoking cessation strategies and construction worker to continue work-up after discharge. 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 #11 Hypomagnesemia Magnesium was low at 1.2 on 07/02 and was repleted. Patient's electrolytes were monitored and repleted as needed. #12 Obesity Body Mass Index 30-39.9 Adult Patient was noted to have a BMI of 34.70. She is recommended healthy diet and lifestyle changes and follow-up with Primary Care Provider. Physical therapy was consulted to assist with mobilization. Designer And Patternmaker was also consulted to assist with possible placement/therapy needs. When she was tolerating a regular diet,her pain was well controlled on oral medications, her bowel and bladder function had returned to its prior state and she was mobilizing without difficulty she was dismissed home. documented in this encounter Plan of Treatment Scheduled Referrals Name Type Priority Associated Diagnoses Order S chedule Trauma Critical Outpatient Referral Routine Expec ellyn: Care and General 07/17/2021 Surgery office (Approximate) , visit (clinic) Expires: 07/03/2024 documented as of this encounter Procedures Procedure Name Priority Date/Time Associated Comments Diagnosis CBC WITHOUT Routine 07/03/2021 9:37 Results for DIFFERENTIAL, B AM CDT this procedu re are in the results section. MAGNESIUM, S Routine 07/03/2021 9:37 Results for AM CDT this procedure are in the results section. BASIC METABOLIC Routine 07/03/2021 9:37 Results f or PANEL, S/P AM CDT this procedure are in the results section. DX CHEST PORTABLE 1 RAD - Routine 07/03/2021 5:32 Resu lts for VIEW (most inpatients AM CDT this proced ure and all are in the outpatients) results section. RT TO ARRANGE FOR Routine 07/02/2021 7:26 HOME DME PM CDT CHEST PHYSIOTHERAPY Routine 07/02/2021 1:00 PM CDT CHEST PHYSIOTHERAPY Routine 07/02/2021 7:00 AM CDT DX CHEST PORTABLE 1 RAD - Semiurgent 07/02/2021 5:32 R esults for VIEW (Fast; most ED AM CDT this procedur e patients; some are in the inpatients) results section. PATIENT STATUS Timed 07/02/2021 4:56 Results fo r AM CDT this procedure are in the results section. VENOUS BLOOD GAS Timed 07/02/2021 4:56 Results for W/COOX, B AM CDT this procedure are in the results section. CBC WITH Timed 07/02/2021 4:54 Results for DIFFERENTIAL, B AM CDT this procedu re are in the results section. PHOSPHORUS Timed 07/02/2021 4:54 Results for (INORGANIC), S AM CDT this procedur e are in the results section. MAGNESIUM, S Timed 07/02/2021 4:54 Results for AM CDT this procedure are in the results section. LACTATE, B/P Timed 07/02/2021 4:54 Results for AM CDT this procedure are in the results section. BASIC METABOLIC Timed 07/02/2021 4:54 Results f or PANEL, S/P AM CDT this procedure are in the results section. SARS CORONAVIRUS 2, Routine 07/02/2021 3:19 Resul ts for RNA, RAPID POC, V AM CDT this proce dure are in the results section. CHEST PHYSIOTHERAPY Routine 07/02/2021 3:12 AM CDT CHEST PHYSIOTHERAPY Routine 07/02/2021 3:12 AM CDT CHEST PHYSIOTHERAPY Routine 07/02/2021 3:12 AM CDT CHEST PHYSIOTHERAPY Routine 07/02/2021 3:[address] ABDOMEN PELVIS RAD - Semiurgent 07/02/2021 12:46 Re sults for WITH IV CONTRAST (Fast; most ED AM CDT this proc edure patients; some are in the inpatients) results section. CT CHEST WITH IV RAD - Semiurgent 07/02/2021 12:46 Res ults for CONTRAST (Fast; most ED AM CDT this procedur e patients; some are in the inpatients) results section. DX CHEST AP OR PA RAD - Semiurgent 07/01/2021 11:19 Re sults for AND LATERAL 2 VIEWS (Fast; most ED PM CDT this p rocedure patients; some are in the inpatients) results section. PATIENT STATUS STAT 07/01/2021 11:06 Results f or PM CDT this procedure are in the results section. VENOUS BLOOD GAS STAT 07/01/2021 11:06 Results for W/COOX, B PM CDT this procedure are in the results section. CBC WITH STAT 07/01/2021 11:05 Results for DIFFERENTIAL, B PM CDT this procedu re are in the results section. BASIC METABOLIC STAT 07/01/2021 11:05 Results for PANEL, S/P PM CDT this procedure are in the results section. ECG STAT 07/01/2021 10:39 Results for PM CDT this procedure are in the results section. documented in this encounter Results DX Chest AP or PA and Lateral 2 Views (07/18/2021 12:11 PM BRANCH OPERATIONS MANAGER) Anatomical Region Laterality Modality Chest, Thoracic RST LOS, Thoracic ARZ LOS, Thoracic N/A Digital Radiography FLA LOS Specimen (Source) Anatomical Collection Method Collection Time Re ceived Time Location / / Volume Laterality 07/18/2021 12:16 PM [employer]ANCH OPERATIONS MANAGER Impressions 07/18/2021 12:23 PM BRANCH OPERATIONS MANAGER Since 07/03/2021, the previously seen tiny right [...] posterior fifth rib. Narrative 07/18/2021 12:23 PM BRANCH OPERATIONS MANAGER EXAM: ??DX CHEST AP OR PA AND [...] righ t posterior fifth rib. Damaris Arreguin APRN, C.N.P., M.S.N. IMG DIAGNOSTIC NORAH GING PROCEDURES Magnesium (07/03/2021 9:37 AM CDT) athologist Signature Magnesium, S 1.7 1.7 - 2.3 07/03/2021 DTL mg/dL 11:11 AM CDT Specimen Anatomical Collection Method Collection Time Receive d Time (Source) Location / / Volume Laterality Blood (Blood, 07/03/2021 9:37 AM 07/03/20 21 Venous) CDT 10:12 AM CDT Shyann Monahan M.D. LAB BLOOD ADD-ON Performing Organization Address City/State/ZIP Code Phon e Number [facility] - [address] [place], [place] [address] [facility] [address] Laboratories-[facility] 200 [facility] (ABNORMAL) Basic Metabolic Panel (07/03/2021 9:37 AM CDT) athologist Signature Potassium, S 5.0 3.6 - 5.2 07/03/2021 DTL mmol/L 11:11 AM CDT Sodium, S 134 (L) 135 - 145 07/03/2021 DTL mmol/L 11:11 AM CDT Chloride, S 94 (L) 98 - 107 07/03/2021 DTL mmol/L 11:11 AM CDT Bicarbonate, S 31 (H) 22 - 29 07/03/2021 DTL mmol/L 11:11 AM CDT Anion Gap 9 7 - 15 07/03/2021 DTL 11:11 AM CDT BUN (Blood 19 6 - 21 07/03/2021 DTL Urea mg/dL 11:11 AM CDT Nitrogen), S Creatinine, S 1.05 (H) 0.59 - 07/03/2021 DTL 1.04 mg/dL 11:11 AM CDT eGFR-Non 54 (L) >=60 07/03/2021 DTL Black/ mL/min/BSA 11:11 AM CDT Finnish Comment: ----ADDITIONAL INFORMATION---- Estimated GFR calculated using the 2009 CKD_EPI creatinine equation. eGFR-Black/ 62 >=60 mL/min/BSA 2020 11:11 AM CDT DTL Comment: ----ADDITIONAL INFORMATION---- Estimated GFR calculated using the 2009 CKD_EPI creatinine equation. Calcium, Total, S 8.7 (L) 8.8 - 10.2 mg/dL 07/03/2021 11:1 1 AM CDT DTL Glucose, S 181 (H) 70 - 140 mg/dL 07/03/2021 11:11 AM CDT DTL Specimen Anatomical Collection Method Collection Time Receive d Time (Source) Location / / Volume Laterality Blood (Blood, 07/03/2021 9:37 AM 07/03/20 21 Venous) CDT 10:12 AM CDT Damaris Arreguin APRN, C.N.P., M.S.N. LAB BLOOD ADD-ON Performing Organization Address City/State/ZIP Code Phon e Number [facility] - [address] [place], [place] [address] [facility] [address] Laboratories-[facility] [address] (ABNORMAL) CBC without Differential (07/03/2021 9:37 AM CDT) [facility] Method Time Signature Hemoglobin 14.3 11.6 - 07/03/2021 DTL 15.0 g/dL 10:04 AM CDT Hematocrit 44.1 35.5 - 07/03/2021 DTL 44.9 % 10:04 AM CDT Erythrocytes 4.43 3.92 - 07/03/2021 DTL 5.13 10:04 AM CDT x10(12)/L MCV 99.5 (H) 78.2 - 07/03/2021 DTL 97.9 fL 10:04 AM CDT RBC Distrib Width 13.8 12.2 - 07/03/2021 DTL 16.1 % 10:04 AM CDT Platelet Count 173 157 - 371 07/03/2021 DTL x10(9)/L 10:04 AM CDT Leukocytes 7.4 3.4 - 9.6 07/03/2021 DTL x10(9)/L 10:04 AM CDT Specimen Anatomical Collection Method Collection Time Receive d Time (Source) Location / / Volume Laterality Blood (Blood, 07/03/2021 9:37 AM 07/03/20 9:57 Venous) CDT AM CDT Damaris Arreguin APRN, C.N.P., M.S.N. LAB BLOOD ADD-ON Performing Organization Address City/State/ZIP Code Phon e Number [facility] - [address] [place], [place] [address] [facility] [place] [address] [facility] 200 [facility] DX Chest Portable 1 View (07/03/2021 5:32 AM CDT) Anatomical Region Laterality Modality Chest, Thoracic RST LOS, Thoracic ARZ LOS, Thoracic N/A Digital Radiography FLA LOS Specimen (Source) Anatomical Collection Method Collection Time Re ceived Time Location / / Volume Laterality 07/03/2021 7:10 AM CDT Impressions 07/03/2021 7:12 AM CDT No change since 07/02/2021. Right IJ chest port with tip in the RA. Cardiomegaly. Minimally displaced fractu re of the right posterior 5th rib. Tiny right pneumothorax. Subcutaneous emphyse ma right chest wall and neck. Bibasilar atelectasis. Narrative 07/03/2021 7:12 AM CDT EXAM: ??DX CHEST PORTABLE 1 VIEW Procedure Note Camille Saldana M.D. - 07/03/2021Forma tting of this note might be different from the original. EXAM: DX CHEST PORTABLE 1 VIEW IMPRESSION: No change since 07/02/2021. Right IJ [facility] st port with tip in the RA. Cardiomegaly. Minimally displaced fractu re of the right posterior 5th rib. Tiny right pneumothorax. Subcutaneous emphyse ma right chest wall and neck. Bibasilar atelectasis. Celeste Lao APRNNPatricia., M.S.N. IMG DIAGNOSTIC NORAH GING PROCEDURES DX Chest Portable 1 View (07/02/2021 5:32 AM CDT) Anatomical Region Laterality Modality Chest, Thoracic RST LOS, Thoracic ARZ LOS, Thoracic N/A Digital Radiography FLA LOS Specimen (Source) Anatomical Collection Method Collection Time Re ceived Time Location / / Volume Laterality 07/02/2021 6:10 AM CDT Impressions 07/02/2021 11:10 AM CDT No significant change since 06/29/2021 (23:16). Small right pneumothorax. No focal consolidation or pleural effusion. Normal cardiac size. Prominent cardiac fat pad. Mildly displa bong fracture of the posterior right 5th rib right chest Port-A-Cath with tip in the low SVC. Narrative 07/02/2021 11:10 AM CDT EXAM: ??DX CHEST PORTABLE 1 VIEW Procedure Note Miles Del Valle M.D. - 07/02/2021Format ting of this note might be different from the original. EXAM: DX CHEST PORTABLE 1 VIEW IMPRESSION: No significant change since 06/29/2021 ( 23:16). Small right pneumothorax. No focal consolidation or pleural effusion. Normal cardiac size. Prominent cardiac fat pad. Mildly displa bong fracture of the posterior right 5th rib right chest Port-A-Cath with tip in the low SVC. Ender MENDOZA DIAGNOSTIC IMAGING PROCE RAYMUNDO Patient Status (07/02/2021 4:56 AM CDT) P athologist Signature O2 Flow 5.0 L/min 07/02/2021 STMA 5:03 AM CDT Device NC 07/02/2021 STMA 5:03 AM CDT Spont. 18 07/02/2021 STMA breaths/min 5:03 AM CDT Specimen Anatomical Collection Method Collection Time Receive d Time (Source) Location / / Volume Laterality Blood 07/02/2021 4:56 AM 5:03 CDT AM CDT Ender Lopez M.D. LAB BLOOD NON ADD-ON Performing Organization Address City/[facility]/ZIP Code Phon e Number [facility] - [address] [place], [place] [address] [facility] [place] [address] [facility] 200 [facility] (ABNORMAL) Blood Gas with Coox, Venous (07/02/2021 4:56 AM CDT) [facility] Method Time Signature Venous pO2 57 Not applicable 07/02/2021 STMA mm Hg 5:10 AM CDT Venous pCO2 65 (H) 41 - 51 mm Hg 07/02/2021 STMA 5:10 AM CDT Venous pH 7.31 (L) 7.32 - 7.43 pH 07/02/2021 STMA 5:10 AM CDT Venous Base 6 Not applicable 07/02/2021 STMA Excess mmol/L 5:10 AM CDT HCO3 32 Not applicable 07/02/2021 STMA mmol/L 5:10 AM CDT Hemoglobin, B 14.4 11.6 - 15.0 07/02/2021 STMA g/dL 5:10 AM CDT O2Hb 84.9 Not applicable 07/02/2021 STMA % 5:10 AM CDT COHb 1.9 <3.0 % 07/02/2021 STMA 5:10 AM CDT MetHb <1.0 <1.5 % 07/02/2021 STMA 5:10 AM CDT CtO2 17.1 Not applicable 07/02/2021 STMA vol % 5:10 AM CDT Venous Sample Venipunct 07/02/2021 STMA Site 5:10 AM CDT Specimen Anatomical Collection Method Collection Time Receive d Time (Source) Location / / Volume Laterality Blood (Blood, 07/02/2021 4:56 AM 07/02/20 5:03 Venous) CDT AM CDT Ender Lopez M.D. LAB BLOOD NON ADD-ON Performing Organization Address City/State/[facility] Code Phon e Number [facility] - [address] [place], [place] [address] [facility] [place] [address] Laboratories[facility] 200 [facility] Lactate (07/02/2021 4:54 AM CDT) P athologist Signature Lactate, P 1.2 0.5 - 2.2 07/02/2021 STMA mmol/L 5:14 AM CDT Specimen Anatomical Collection Method Collection Time Receive d Time (Source) Location / / Volume Laterality Blood (Blood, 07/02/2021 4:54 AM 07/02/20 5:03 Venous) CDT AM CDT Ender Lopez M.D. LAB BLOOD NON ADD-ON Performing Organization Address City/State/ZIP Code Phon e Number [facility] - [address] [place] [address] [facility] [place] [address] Formerly [facility] 200 [facility] (ABNORMAL) CBC with Differential, Blood (07/02/2021 4:54 AM CDT) Patholo gist Method Time Signature Hemoglobin 13.7 11.6 - 07/02/2021 DTL 15.0 g/dL 5:20 AM CDT Hematocrit 43.0 35.5 - 07/02/2021 DTL 44.9 % 5:20 AM CDT Erythrocytes 4.36 3.92 - 07/02/2021 DTL 5.13 5:20 AM CDT x10(12)/L MCV 98.6 (H) 78.2 - 07/02/2021 DTL 97.9 fL 5:20 AM CDT RBC Distrib Width 13.4 12.2 - 07/02/2021 DTL 16.1 % 5:20 AM CDT Platelet Count 177 157 - 371 07/02/2021 DTL x10(9)/L 5:20 AM CDT Leukocytes 10.1 (H) 3.4 - 9.6 07/02/2021 DTL x10(9)/L 5:20 AM CDT Neutrophils 7.25 (H) 1.56 - 07/02/2021 DTL 6.45 5:20 AM CDT x10(9)/L Lymphocytes 1.48 0.95 - 07/02/2021 DTL 3.07 5:20 AM CDT x10(9)/L Monocytes 0.79 0.26 - 07/02/2021 DTL 0.81 5:20 AM CDT x10(9)/L Eosinophils 0.51 (H) 0.03 - 07/02/2021 DTL 0.48 5:20 AM CDT x10(9)/L Basophils 0.05 0.01 - 07/02/2021 DTL 0.08 5:20 AM CDT x10(9)/L Specimen Anatomical Collection Method Collection Time Receive d Time (Source) Location / / Volume Laterality Blood (Blood, 07/02/2021 4:54 AM 07/02/20 5:12 Venous) CDT AM CDT Ender Lopez M.D. LAB BLOOD ADD-ON Performing Organization Address City/[facility] Phon e Number [facility] - [address] [place], [place] [id number] [place] [address] Phosphorus Inorganic (07/02/2021 4:54 AM CDT) P athologist Signature Phosphorus 3.6 2.5 - 4.5 07/02/2021 DTL (Inorganic), S mg/dL 5:43 AM CDT Specimen Anatomical Collection Method Collection Time Receive d Time (Source) Location / / Volume Laterality Blood (Blood, 07/02/2021 4:54 AM 07/02/20 5:22 Venous) CDT AM CDT Ender Lopez M.D. LAB BLOOD ADD-ON Performing Organization Address City/State/ZIP Code Phon e Number [facility] - [address] [place], [place] [address] [place] [address] (ABNORMAL) Magnesium (07/02/2021 4:54 AM CDT) P athologist Signature Magnesium, S 1.2 (L) 1.7 - 2.3 07/02/2021 DTL mg/dL 5:43 AM CDT Specimen Anatomical Collection Method Collection Time Receive d Time (Source) Location / / Volume Laterality Blood (Blood, 07/02/2021 4:54 AM 07/02/20 5:22 Venous) CDT AM CDT Ender Lopez M.D. LAB BLOOD ADD-ON Performing Organization Address City/State/ZIP Code Phon e Number [facility] - [address] [place] [address] [facility] [place] [address] Laboratories[facility] [address] [facility] (ABNORMAL) Basic Metabolic Panel (07/02/2021 4:54 AM CDT) P athologist Signature Potassium, S 4.7 3.6 - 5.2 07/02/2021 DTL mmol/L 5:43 AM CDT Sodium, S 130 (L) 135 - 145 07/02/2021 DTL mmol/L 5:43 AM CDT Chloride, S 91 (L) 98 - 107 07/02/2021 DTL mmol/L 5:43 AM CDT Bicarbonate, S 29 22 - 29 07/02/2021 DTL mmol/L 5:43 AM CDT Anion Gap 10 7 - 15 07/02/2021 DTL 5:43 AM CDT BUN (Blood 20 6 - 21 07/02/2021 DTL Urea mg/dL 5:43 AM CDT Nitrogen), S Creatinine, S 1.06 (H) 0.59 - 07/02/2021 DTL 1.04 mg/dL 5:43 AM CDT eGFR-Non 53 (L) >=60 07/02/2021 DTL Black/ mL/min/BSA 5:43 AM CDT Finnish Comment: ----ADDITIONAL INFORMATION---- Estimated GFR calculated using the 2009 CKD_EPI creatinine equation. eGFR-Black/ 61 >=60 mL/min/BSA 2020 5:43 AM CDT DTL Comment: ----ADDITIONAL INFORMATION---- Estimated GFR calculated using the 2009 CKD_EPI creatinine equation. Calcium, Total, S 8.6 (L) 8.8 - 10.2 mg/dL 07/02/2021 5:43 AM CDT DTL Glucose, S 137 70 - 140 mg/dL 07/02/2021 5:43 AM CDT D TL Specimen Anatomical Collection Method Collection Time Receive d Time (Source) Location / / Volume Laterality Blood (Blood, 07/02/2021 4:54 AM 10/23/20 21 5:22 Venous) CDT AM CDT Ender Lopez M.D. LAB BLOOD ADD-ON Performing Organization Address City/[facility]/ZIP Code Phon e Number [facility] - [address] [place], [place] [address] [facility] [place] [address] Laboratories-[facility] [address] [facility] SARS Coronavirus 2, RNA, Rapid POC, V Asymptomatic (07/02/2021 3:19 AM CDT) [facility] Method Time Signature SARS Undetected Undetected 07/02/2021 DTLR Coronavirus-2 3:39 AM CDT , RNA, Rapid POC, V Comment: Negative for SARS-CoV-2. The [employer] COVID-19 test is a molecular topher t for SARS-CoV-2, the virus that causes COVID- 19. A Negative result means that the [employer] COV ID-19 test did not detect SARS-CoV-2 virus in your sample. [employer] COVID-19 test uses the [employer]. This test has received Emergency Use Authorization (EUA) by the U.S. Food and Drug Administration (FDA) and is used per man acturer instructions. Performance characteristic s were verified by [facility] in a manner consistent with CLIA requirements. Fact sheets for this Emerg ency Use Authorization (EUA) can be found at the following links: Providers: https://[employer]/documentation/prov iders.pdf Patients: https://[employer]/documentation/zack ents.pdf SARS Coronavirus 2, Source Nasopharynx DEFAULT 07/02/2021 3:39 AM CDT DTLR Specimen Anatomical Collection Method Collection Time Receive d Time (Source) Location / / Volume Laterality Varies 07/02/2021 3:19 AM 3:19 (Nasopharynx) CDT AM CDT Ender Lopez M.D. LAB MICROBIOLOGY - GENERAL O RDERABLES Performing Organization Address City/[facility] Phon e Number PERFORMING LABS, REF [place] [address] INTERFACE Ref Interface [address] [facility] DTLR Performing Labs, [place] [address] Interface [address] [facility] CT Chest with IV Contrast (07/02/2021 12:46 AM CDT) Anatomical Region Laterality Modality Chest, Thoracic RST LOS, Thoracic ARZ N/A Co mputed Tomography, Computed LOS, Thoracic ARZ LOS, Thoracic FLA Alvin graphy LOS Specimen (Source) Anatomical Collection Method Collection Time Re ceived Time Location / / Volume Laterality 07/02/2021 12:54 AM CDT Impressions 07/02/2021 6:17 AM CDT 1. ??Mildly displaced right 5th rib with a small pneumothorax and moderate subcutaneous emphysema. 2. ??No acute traumatic findings in the abdomen and pelvis. 3. ??Portal and retroperitoneal adenopat hy and mild diffuse peritoneal thickening and nodularity have improved since outsi de CT 12/31/2017. Narrative 07/02/2021 6:17 AM CDT EXAM: CT CHEST WITH IV CONTRAST, CT ABDOMEN PELVIS WITH IV CONTRAST COMPARISON: Chest radiograph 06/29/2021, outside CT 12/30/2017 FINDINGS: CHEST: Mildly displaced fracture of the posterior right 5th rib (series 4, image 89). Small right pneumothorax. Subcutane ous emphysema along the right lateral chest wall extending inferiorly to the r ight paraspinal musculature and superiorly to the right cervical muscula ture. 5 mm pulmonary nodule in the right middl e lobe (series 3, image 167), possible intrapulmonary lymph node. Scattered bib asilar linear atelectasis versus scarring. The thoracic aorta and great v essels are patent without vascular injury. Scattered thoracic aorta calcifi ed atheromatous plaques. Normal cardiac size. No pericardial effusion. ABDOMEN/PELVIS: No acute vascular, solid organ, or visceral traumatic injury in the abdomen or pelvis. The abdominal aor ta and branches are patent and negative for injury. Geographic hypodensity in th e right hepatic lobe inferiorly (series 3, imaging 75), favor focal hepatic stea tosis. Suggestion of a subtle hypodensity within the caudate lobe (ser ies 3, image 54). 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 Punctate hypodensity within the spleen. Mildly thickened adrenal glands. Tiny cyst in the pancreatic head may represent IPMN (series 3, image 93). Lef t renal cysts. Fat and fluid-containing periumbilical hernia. Spleen, adrenal gl ands and right kidneys are normal in appearance. No intraperitoneal or extrap eritoneal free air or fluid. Scattered small lymph nodes within the atul hepat is and throughout the retroperitoneum have decreased in size since 12/31/2017. Mild diffuse peritoneal thickening and nodularity has also improved. Hysterecto my. Mild nodularity of the vaginal cuff. Aortoiliac calcifications. No pelvic fra ctures. Degenerative changes of the spine. Procedure Note Miles Garcia M.D. - 07/02/2021Forma tting of this note might be different from the original. EXAM: CT CHEST WITH IV CONTRAST, CT ABDO MEN PELVIS WITH IV CONTRAST COMPARISON: Chest radiograph 06/29/2021, outside CT 12/30/2017 FINDINGS: CHEST: Mildly displaced fracture of the posterior right 5th rib (series 4, image 89). Small right pneumothorax. Subcutane ous emphysema along the right lateral chest wall extending inferiorly to the r ight paraspinal musculature and superiorly to the right cervical muscula ture. 5 mm pulmonary nodule in the right middl e lobe (series 3, image 167), possible intrapulmonary lymph node. Scattered bib asilar linear atelectasis versus scarring. The thoracic aorta and great v essels are patent without vascular injury. Scattered thoracic aorta calcifi ed atheromatous plaques. Normal cardiac size. No pericardial effusion. ABDOMEN/PELVIS: No acute vascular, solid organ, or visceral traumatic injury in the abdomen or pelvis. The abdominal aor ta and branches are patent and negative for injury. Geographic hypodensity in th e right hepatic lobe inferiorly (series 3, imaging 75), favor focal hepatic stea tosis. Suggestion of a subtle hypodensity within the caudate lobe (ser ies 3, image 54). 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 Punctate hypodensity within the spleen. Mildly thickened adrenal glands. Tiny cyst in the pancreatic head may represent IPMN (series 3, image 93). Lef t renal cysts. Fat and fluid-containing periumbilical hernia. Spleen, adrenal gl ands and right kidneys are normal in appearance. No intraperitoneal or extrap eritoneal free air or fluid. Scattered small lymph nodes within the atul hepat is and throughout the retroperitoneum have decreased in size since 12/31/2017. Mild diffuse peritoneal thickening and nodularity has also improved. Hysterecto my. Mild nodularity of the vaginal cuff. Aortoiliac calcifications. No pelvic fra ctures. Degenerative changes of the spine. IMPRESSION: 1. Mildly displaced right 5th rib with a small pneumothorax and moderate subcutaneous emphysema. 2. No acute traumatic findings in the ab domen and pelvis. 3. Portal and retroperitoneal adenopathy and mild diffuse peritoneal thickening and nodularity have improved since outsi de CT 12/31/2017. Gray MENDOZA CT PROCEDURES CT Abdomen Pelvis with IV Contrast (07/02/2021 12:46 AM CDT) Anatomical Region Laterality Modality Abdomen, Pelvis, Abdominal RST LOS, N/A Comp uted Tomography, Computed Abdominal ARZ LOS, Abdominal FLA LOS Steven ography Specimen (Source) Anatomical Collection Method Collection Time Re ceived Time Location / / Volume Laterality 07/02/2021 12:54 AM CDT Impressions 07/02/2021 6:17 AM CDT 1. ??Mildly displaced right 5th rib with a small pneumothorax and moderate subcutaneous emphysema. 2. ??No acute traumatic findings in the abdomen and pelvis. 3. ??Portal and retroperitoneal adenopat hy and mild diffuse peritoneal thickening and nodularity have improved since outsi de CT 12/31/2017. Narrative 07/02/2021 6:17 AM CDT EXAM: CT CHEST WITH IV CONTRAST, CT ABDOMEN PELVIS WITH IV CONTRAST COMPARISON: Chest radiograph 06/29/2021, outside CT 12/30/2017 FINDINGS: CHEST: Mildly displaced fracture of the posterior right 5th rib (series 4, image 89). Small right pneumothorax. Subcutane ous emphysema along the right lateral chest wall extending inferiorly to the r ight paraspinal musculature and superiorly to the right cervical muscula ture. 5 mm pulmonary nodule in the right middl e lobe (series 3, image 167), possible intrapulmonary lymph node. Scattered bib asilar linear atelectasis versus scarring. The thoracic aorta and great v essels are patent without vascular injury. Scattered thoracic aorta calcifi ed atheromatous plaques. Normal cardiac size. No pericardial effusion. ABDOMEN/PELVIS: No acute vascular, solid organ, or visceral traumatic injury in the abdomen or pelvis. The abdominal aor ta and branches are patent and negative for injury. Geographic hypodensity in th e right hepatic lobe inferiorly (series 3, imaging 75), favor focal hepatic stea tosis. Suggestion of a subtle hypodensity within the caudate lobe (ser ies 3, image 54). 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 Punctate hypodensity within the spleen. Mildly thickened adrenal glands. Tiny cyst in the pancreatic head may represent IPMN (series 3, image 93). Lef t renal cysts. Fat and fluid-containing periumbilical hernia. Spleen, adrenal gl ands and right kidneys are normal in appearance. No intraperitoneal or extrap eritoneal free air or fluid. Scattered small lymph nodes within the atul hepat is and throughout the retroperitoneum have decreased in size since 12/31/2017. Mild diffuse peritoneal thickening and nodularity has also improved. Hysterecto my. Mild nodularity of the vaginal cuff. Aortoiliac calcifications. No pelvic fra ctures. Degenerative changes of the spine. Procedure Note Miles Garcia M.D. - 07/02/2021Forma tting of this note might be different from the original. EXAM: CT CHEST WITH IV CONTRAST, CT ABDO MEN PELVIS WITH IV CONTRAST COMPARISON: Chest radiograph 06/29/2021, outside CT 12/30/2017 FINDINGS: CHEST: Mildly displaced fracture of the posterior right 5th rib (series 4, image 89). Small right pneumothorax. Subcutane ous emphysema along the right lateral chest wall extending inferiorly to the r ight paraspinal musculature and superiorly to the right cervical muscula ture. 5 mm pulmonary nodule in the right middl e lobe (series 3, image 167), possible intrapulmonary lymph node. Scattered bib asilar linear atelectasis versus scarring. The thoracic aorta and great v essels are patent without vascular injury. Scattered thoracic aorta calcifi ed atheromatous plaques. Normal cardiac size. No pericardial effusion. ABDOMEN/PELVIS: No acute vascular, solid organ, or visceral traumatic injury in the abdomen or pelvis. The abdominal aor ta and branches are patent and negative for injury. Geographic hypodensity in th e right hepatic lobe inferiorly (series 3, imaging 75), favor focal hepatic stea tosis. Suggestion of a subtle hypodensity within the caudate lobe (ser ies 3, image 54). 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 Punctate hypodensity within the spleen. Mildly thickened adrenal glands. Tiny cyst in the pancreatic head may represent IPMN (series 3, image 93). Lef t renal cysts. Fat and fluid-containing periumbilical hernia. Spleen, adrenal gl ands and right kidneys are normal in appearance. No intraperitoneal or extrap eritoneal free air or fluid. Scattered small lymph nodes within the atul hepat is and throughout the retroperitoneum have decreased in size since 12/31/2017. Mild diffuse peritoneal thickening and nodularity has also improved. Hysterecto my. Mild nodularity of the vaginal cuff. Aortoiliac calcifications. No pelvic fra ctures. Degenerative changes of the spine. IMPRESSION: 1. Mildly displaced right 5th rib with a small pneumothorax and moderate subcutaneous emphysema. 2. No acute traumatic findings in the ab domen and pelvis. 3. Portal and retroperitoneal adenopathy and mild diffuse peritoneal thickening and nodularity have improved since outsi de CT 12/31/2017. Gray Calderón M.D. IMG CT PROCEDURES DX Chest AP or PA and Lateral 2 Views (07/01/2021 11:19 PM CDT) Anatomical Region Laterality Modality Chest, Thoracic RST LOS, Thoracic ARZ LOS, Thoracic N/A Digital Radiography FLA LOS Specimen (Source) Anatomical Collection Method Collection Time Re ceived Time Location / / Volume Laterality 07/01/2021 11:21 PM CDT Impressions 07/02/2021 10:35 AM CDT Comparison made to outside chest radiographs from earlier today (1800). Mildly displaced fracture of the posterior right 5th rib with associated subcutaneous emphysema in the right late ral chest wall and right neck base. Curvilinear lucency along the superolate ral aspect of the right lung and extending about the right lung apex is i n keeping with the previously reported tiny predominantly lateral right pneumot horax. This has not significantly increased in size since the outside exam . Lingular and left basilar atelectasis. Prominent apical cardiac fat pad. Aortic calcifications. Right chest wall port with the tip at the superior cavoatrial junction. Narrative 07/02/2021 10:35 AM CDT EXAM: ??DX CHEST AP OR PA AND LATERAL 2 VIEWS Procedure Note Camille Saldana M.D. - 07/02/2021Forma tting of this note might be different from the original. EXAM: DX CHEST AP OR PA AND LATERAL 2 EWS IMPRESSION: Comparison made to outside chest radiogr aphs from earlier today (1800). Mildly displaced fracture of the posterior right 5th rib with associated subcutaneous emphysema in the right late ral chest wall and right neck base. Curvilinear lucency along the superolate ral aspect of the right lung and extending about the right lung apex is i n keeping with the previously reported tiny predominantly lateral right pneumot horax. This has not significantly increased in size since the outside exam . Lingular and left basilar atelectasis. Prominent apical cardiac fat pad. Aortic calcifications. Right chest wall port with the tip at the superior cavoatrial junction. Gray Calderón M.D. IMG DIAGNOSTIC IMAGING PROC[facility] Patient Status (07/01/2021 11:06 PM CDT) P athologist Signature O2 Flow 4.0 L/min 07/01/2021 [facility] 11:12 PM CDT Device nc 07/01/2021 [facility] 11:12 PM CDT Spont. 16 07/01/2021 [facility] breaths/min 11:12 PM CDT Specimen Anatomical Collection Method Collection Time Receive d Time (Source) Location / / Volume Laterality Blood 07/01/2021 11:06 07/01/2021 PM CDT 11:12 PM CDT Gray Calderón M.D. LAB BLOOD NON ADD-ON Performing Organization Address City/State/ZIP Code Phon e Number [facility] - [address] [place] [address] [phone] [place] [address] Laboratories-[facility] [address] [facility] (ABNORMAL) Blood Gas with Coox, Venous (07/01/2021 11:06 PM CDT) Patholo gist Method Time Signature Venous pO2 31 Not applicable 07/01/2021 [facility] mm Hg 11:18 PM CDT Venous pCO2 62 (H) 41 - 51 mm Hg 07/01/2021 [facility] 11:18 PM CDT Venous pH 7.36 7.32 - 7.43 pH 07/01/2021 [facility] 11:18 PM CDT Venous Base 8 Not applicable 07/01/2021 [facility] Excess mmol/L 11:18 PM CDT HCO3 34 Not applicable 07/01/2021 [facility] mmol/L 11:18 PM CDT Hemoglobin, B 15.3 (H) 11.6 - 15.0 07/01/2021 [facility] g/dL 11:18 PM CDT O2Hb 52.0 Not applicable 07/01/2021 [facility] % 11:18 PM CDT COHb 3.3 (H) <3.0 % 07/01/2021 [facility] 11:18 PM CDT MetHb <1.0 <1.5 % 07/01/2021 [facility] 11:18 PM CDT CtO2 11.2 Not applicable 07/01/2021 [facility] vol % 11:18 PM CDT Venous Sample Venipunct 07/01/2021 [facility] 11:18 PM CDT Specimen Anatomical Collection Method Collection Time Receive d Time (Source) Location / / Volume Laterality Blood (Blood, 07/01/2021 11:06 07/01/2021 Venous) PM CDT 11:12 PM CDT Gray Calderón M.D. LAB BLOOD NON ADD-ON Performing Organization Address City/State/[facility] Code Phon e Number [facility] - [address] [place] [address] [phone] [place] [address] [facility] [address] [facility] (ABNORMAL) Basic Metabolic Panel (07/01/2021 11:05 PM CDT) P athologist Signature Potassium, P 5.3 (H) 3.6 - 5.2 07/01/2021 [facility] mmol/L 11:37 PM CDT Sodium, P 132 (L) 135 - 145 07/01/2021 [facility] mmol/L 11:37 PM CDT Chloride, P 90 (L) 98 - 107 07/01/2021 [facility] mmol/L 11:37 PM CDT Bicarbonate, P 29 22 - 29 07/01/2021 [facility] mmol/L 11:37 PM CDT Anion Gap, P 13 7 - 15 07/01/2021 [facility] 11:37 PM CDT BUN (Blood 21 6 - 21 07/01/2021 [facility] Urea mg/dL 11:37 PM CDT Nitrogen), P Creatinine, P 1.11 (H) 0.59 - 07/01/2021 [facility] 1.04 mg/dL 11:37 PM CDT eGFR-Black/Afr 58 (L) >=60 07/01/2021 [facility] ican Finnish mL/min/BSA 11:37 PM CDT Comment: ----ADDITIONAL INFORMATION---- Estimated GFR calculated using the 2009 CKD_EPI creatinine equation. eGFR Non-Black/ 50 (L) >=60 mL/min/BSA 07/01/2021 11:37 PM CDT [facility] Finnish Comment: ----ADDITIONAL INFORMATION---- Estimated GFR calculated using the 2009 CKD_EPI creatinine equation. Calcium, Total, P 9.3 8.8 - 10.2 mg/dL 07/01/2021 11:3 7 PM CDT ST[facility] Glucose, P 88 70 - 140 mg/dL 07/01/2021 11:37 PM CDT ST[facility] Specimen Anatomical Collection Method Collection Time Receive d Time (Source) Location / / Volume Laterality Blood (Blood, 07/01/2021 11:05 07/01/2021 Venous) PM CDT 11:12 PM CDT Gray Calderón M.D. LAB BLOOD ADD-ON Performing Organization Address City/State/ZIP Code Phon e Number [facility] - [address] [place] [address] [phone] [place] [address] [facility] [address] [facility] (ABNORMAL) CBC with Differential, Blood (07/01/2021 11:05 PM CDT) [facility] Method Time Signature Hemoglobin 15.1 (H) 11.6 - 07/01/2021 [facility] 15.0 g/dL 11:15 PM CDT Hematocrit 45.4 (H) 35.5 - 07/01/2021 [facility] 44.9 % 11:15 PM CDT Erythrocytes 4.64 3.92 - 07/01/2021 [facility] 5.13 11:15 PM CDT x10(12)/L MCV 97.8 78.2 - 07/01/2021 [facility] 97.9 fL 11:15 PM CDT RBC Distrib Width 13.4 12.2 - 07/01/2021 [facility] 16.1 % 11:15 PM CDT Platelet Count 178 157 - 371 07/01/2021 [facility] x10(9)/L 11:15 PM CDT Leukocytes 12.0 (H) 3.4 - 9.6 07/01/2021 [facility] x10(9)/L 11:15 PM CDT Neutrophils 8.25 (H) 1.56 - 07/01/2021 [facility] 6.45 11:15 PM CDT x10(9)/L Lymphocytes 2.09 0.95 - 07/01/2021 [facility] 3.07 11:15 PM CDT x10(9)/L Monocytes 1.02 (H) 0.26 - 07/01/2021 [facility] 0.81 11:15 PM CDT x10(9)/L Eosinophils 0.59 (H) 0.03 - 07/01/2021 [facility] 0.48 11:15 PM CDT x10(9)/L Basophils 0.05 0.01 - 07/01/2021 [facility] 0.08 11:15 PM CDT x10(9)/L Specimen Anatomical Collection Method Collection Time Receive d Time (Source) Location / / Volume Laterality Blood (Blood, 07/01/2021 11:05 07/01/2021 Venous) PM CDT 11:11 PM CDT Gray Calderón M.D. LAB BLOOD ADD-ON Performing Organization Address City/State/ZIP Code Phon e Number [facility] - [address] [place], [place] [address] [place] [address] Laboratories[facility] [address] [facility] ECG 12 Lead (07/01/2021 10:39 PM CDT) P athologist Signature Ventricular Rate 59 BPM MUSE ECG/Min FL Interval 202 ms MUSE QRSD Interval 88 ms MUSE QT Interval 394 ms MUSE QTC Interval 390 ms MUSE P [place] 16 degrees MUSE R [place] 46 degrees MUSE T Wave [place] -3 degrees MUSE Specimen Anatomical Collection Method Collection Time Receive d Time (Source) Location / / Volume Laterality 07/01/2021 10:39 07/04/2021 8:30 PM CDT AM CDT Impressions MUSE - 07/01/2021 11:19 PM CDT Sinus bradycardia with 1st degree A-V block Low anterior forces Nonspecific T wave abnormality No previous ECGs available Reviewed by GODFREY Franco Narrative This result has an attachment that is no t available. Procedure Note Chris Snyder M.D. - 07/04/2021Formatt ing of this note might be different from the original. IMPRESSION: Sinus bradycardia with 1st degree A-V bl ock Low anterior forces Nonspecific T wave abnormality No previous ECGs available Reviewed by GODFREY Franco Gray Calderón M.D. ECG ORDERABLES Performing Organization Address City/State/ZIP Code Phon e Number MUSE MUSE NA documented in this encounter Visit Diagnoses Diagnosis Pneumothorax Trauma Initial - Primary Fracture Rib Single Closed Initial Right Decline Functional Status Chronic Obstructive Pulmonary Disease Wi thout Exacerbation (HCC) Chronic Respiratory Failure With Hypoxia (HCC) Traumatic Subcutaneous Emphysema Sequela Abuse Tobacco Smoking History Of Falling Inappropriate Antidiuretic Hormone Syndr ome (HCC) Hypomagnesemia Hypertension Essential Primary Obesity Body Mass Index 30-39.9 Adult Pneumothorax Trauma Initial Fracture Rib Single Closed Initial Right documented in this encounter Admitting Diagnoses Diagnosis Pneumothorax Trauma Initial Fracture Rib Single Closed Initial Right documented in this encounter Administered Medications Inactive Administered Medications - up to 3 most recent administrations Medication Order MAR Action Action Date Dose Rate Site acetaminophen tablet 1,000 mg Given 07/02/2021 1:44 AM CDT 1,000 mg (TYLENOL) 1,000 mg, oral, Once as needed, mild pain or score 1-3 of 10, moderate pain or score 4-6 of 10, severe pain or score 7-10 of 10, fever, temperature greater than 38 C, Starting on 07/02/21 at 0141, For 1 dose acetaminophen tablet 1,000 mg (TYLENOL) Given 07/03/2021 1:47 PM CDT 1,000 mg 1,000 mg, oral, Every 6 hours, First dose (after last modification) on 07/02/21 at 0800, If multiple analgesics ordered for the same pain score sequence of administration: acetaminophen, ibuprofen, tramadol, oxycodone Given 07/03/2021 7:37 AM CDT 1,000 mg Given 07/02/2021 7:47 PM CDT 1,[address] tablet 81 mg Given 07/03/2021 8:31 AM CDT 81 mg 81 mg, oral, Daily, First dose on 07/02/21 at 0900, Swallow whole. Do NOT crush, chew, or split tablet. Given 07/02/2021 8:12 AM CDT 81 mg bisacodyL suppository 10 mg (DULCOLAX) 10 mg, rectal, Daily PRN, constipation, Starting on Sa t 07/02/21 at 0243 calcium carbonate chewable tablet 400 mg of calcium (TUMS) 400 mg of calcium, oral, Every 4 hours P RN, heartburn, Starting on 07/02/21 at 0243, Doses listed are in mg of elementa l calcium. Take with food. 500 mg calcium carbonate contains 200 mg of elemental calcium. enoxaparin injection 30 mg Given 07/03/2021 8:33 AM CDT 30 mg Left Lower Abdomen (LOVENOX) 30 mg, subcutaneous, 2 times daily, First dose on 07/02/21 at 0900 Given 07/02/2021 8:10 PM CDT 30 mg Left Lower Abdomen Given 07/02/2021 8:12 AM CDT 30 mg Left Lower Abdomen gabapentin capsule 300 mg (NEURONTIN) Given 07/03/2021 1:47 PM CDT 300 mg 300 mg, oral, 3 times daily, First dose on 07/02/21 at 0900 Given 07/03/2021 8:31 AM CDT 300 mg Given 07/02/2021 8:08 PM CDT 300 mg HYDROmorphone (PF) injection 0.2 mg (DIL AUDID) 0.2 mg, intravenous, Every 2 hour PRN, s evere pain or score 7-10 of 10, Starting on 07/02/21 at 0338 iohexoL 300 mg iodine/mL solution 1-200 mL Given 07/02/2021 12:42 AM CDT 140 mL (OMNIPAQUE) 1-200 mL, intravenous, Once in imaging, contrast, Starting on 07/02/21 at 0042, For 1 dose, Imaging Protocol Orders, Dose per Radiant Medication Guidelines ipratropium-albuteroL 0.5-2.5 mg/3 mL ne bulizer solution 3 mL (DUONEB) 3 mL, nebulization, 4 times daily PRN, shortness of br eath, Starting on 07/02/21 at 0243 lactated ringers Rate/Dose Verify 07/02/2021 5:00 AM CDT 75 mL/hr 75 mL/hr 75 mL/hr, intravenous, Continuous, Starting on 07/02/21 at 0244 New Bag 07/02/2021 3:05 AM CDT 75 mL/hr 75 mL/hr lidocaine 5 % 1 patch Medication Applied 07/03/2021 8:33 AM 1 patch Right Shoulder (LIDODERM) CDT 1 patch, transdermal, Administer over 12 Hours, Every 24 hours, First dose on 07/02/21 at 0244, (12 hours on-12 hours off) To intact skin Medication Applied 07/02/2021 3:13 AM CDT 1 patch Chest magnesium sulfate in water IVPB 2 g New Bag 07/02/2021 8:25 PM CDT 2 g 25 mL/hr 2 g, intravenous, at 25 mL/hr, Administer over 120 Minutes, Once, On 07/02/21 at 1930, For 1 dose ondansetron (PF) injection 4 mg (ZOFRAN) 4 mg, intravenous, Every 6 hours PRN, na usea, vomiting, Starting on 07/02/21 at 0243, Use Ondansetron before Prochlorperazine or Prome thazine oxyCODONE IR tablet 10 mg (ROXICODONE) 10 mg, oral, Every 4 hours PRN, severe p ain or score 7-10 of 10, for breakthrough pain, Starting on 07/02/21 at 0243, Pain unrelieved by other oral analgesics. oxyCODONE IR tablet 5 mg (ROXICODONE) Given 07/02/2021 5:28 AM CDT 5 mg 5 mg, oral, Every 4 hours PRN, moderate pain or score 4-6 of 10, for breakthrough pain, Starting on 07/02/21 at 0243, Pain unrelieved by other oral analgesics. polyethylene glycol powder packet 17 g Given 07/03/2021 8:39 AM CDT 17 g (MIRALAX) 17 g, oral, Daily, First dose on 07/02/21 at 0900, Dissolve in 240 mLs (8 ounces) of water prior to giving. Avoid mixing with starch-based thickened liquids. Given 07/02/2021 8:11 AM CDT 17 g sennosides tablet 8.6 mg (SENOKOT) Given 07/02/2021 8:12 AM CDT 8.6 mg 8.6 mg, oral, Daily, First dose on 07/02/21 at 0900 simvastatin tablet 40 mg (ZOCOR) Given 07/02/2021 8:08 PM CDT 40 mg 40 mg, oral, Daily at bedtime, First dose on 07/02/21 at 2100 sodium chloride (PF) 0.9 % injection 1-1 00 mL Given 07/02/2021 12:42 AM CDT 50 mL 1-100 mL, intravenous, Once, On 07/02/21 at 0043, For 1 dose, Imaging Protocol Orders sodium chloride 0.9 % nebulizer solution 3 mL 3 mL, nebulization, As needed, wheezing, Starting on S at 07/02/21 at 0243 sodium chloride tablet 1 g Given 07/03/2021 8:32 AM CDT 1 g 1 g, oral, 2 times daily with meals, First dose on 07/03/21 at 0800 documented in this encounter Active and Recently Administered Medications Times are shown in CDT. Scheduled Medication Order 07/01/2021 07/02/2021 07/03/2021 acetaminophen tablet 1,000 mg (TYLENOL) 0812 (Given - Provider: Erinn Escalona R.N.)1401 (Given - Provider: Emilia Erwin R.N.)1947 (Given - Provider: Katy PerdomoSLorettaNLoretta, R.N.) 0207 (Not Given - Provider: Katy PerdomoSValarie, R.N. - Reason: Patient/family refused)0737 (Given - Provider: Wendy [facility]i [facility]., [facility]1347 (Given - Provider: Wendy Jhaveri R.N., [facility]) 1,000 mg, oral, Every 6 hours, First dos e (after last modification) on 07/02/21 at 0800, If multiple analgesics ordered for the same pain score sequence of administration: acetaminophen, ibuprofen, tramadol, oxycodone aspirin DR tablet 81 mg 0812 (Given - Provider: Erinn Escalona R.N.) 0831 (Given - Provider: Wendy Jhaveri R.N., [facility]) 81 mg, oral, Daily, First dose on Sat at 0900, Swallow whole. Do NOT crush, chew, or split tablet. enoxaparin injection 30 mg (LOVENOX) 081 2 (Given - Provider: Erinn Escalona R.N.)2009 (Given - Provider: Demetria A Carchedi, M.S.N., R.N.) 0833 (Given - Provider: Wendy Jhaveri R.N., [facility]) 30 mg, subcutaneous, 2 times daily, First dose on 07/02/21 a t 0900 gabapentin capsule 300 mg (NEURONTIN) 08 12 (Given - Provider: Erinn Escalona R.N.)1401 (Given - Provider: Emilia Erwin R.N.)2007 (Given - Provider: Demertia Hart M.S.NLoretta, R.N.) 0831 (Given - Provider: Wendy Jhaveri R.N., PCCN)1347 (Given - Provider: Wendy Jhaveri R.N., [facility]) 300 mg, oral, 3 times daily, First dose on 07/02/21 at 0900 lidocaine 5 % 1 patch (LIDODERM) 0313 (M edication Applied - Provider: Tea Oliver R.N. - Comment: right chest)1513 (Medication Removed - Provider: Emilia Erwin R.N.) 0207 (Not Given - Provider: Katy PerdomoS.NLoretta, R.N. - Reason: Patient/family refused)0833 (Medication Applied - Provider: Wendy Jhaveri R.N., [facility]) 1 patch, transdermal, Administer over 12 Hours, Every 24 hours, First dose on 07/02/21 at 0244, (12 hours on-12 hours off) To intact skin 1355 (Due: Medication Removed - Provider: Discharge Provider, Automatic - Comment: Time automatically adjusted from order being discontinued) magnesium sulfate in water IVPB 2 g (COMPLETED) 2024 (New Bag - Provider: Demetria Hart, Santos.S.N., R.N.) 2 g, intravenous, at 25 mL/hr, Administe r over 120 Minutes, Once, On 07/02/21 at 1930, For 1 dose polyethylene glycol powder packet 17 g (MIRALAX) 0811 (Given - Provider: Erinn Escalona RValarie) 0839 (Given - Provider: Wendy Jhaveri R.N., [facility]) 17 g, oral, Daily, First dose on Sat at 0900, Dissolve in 240 mLs (8 ounces) of water prior to giving. Avoid mixing with starch-based thickened liquids. sennosides tablet 8.6 mg (SENOKOT) 0812 (Given - Provider: Erinn Escalona RLorettaNLoretta) 0839 (Not Given - Provider: Wendy schultz R.N., [facility] - Reason: Patient/family refused) 8.6 mg, oral, Daily, First dose on 07/02/21 at 0900 simvastatin tablet 40 mg (ZOCOR) 2007 (G iven - Provider: Santos Perdomo.S.NLoretta, R.N.) 40 mg, oral, Daily at bedtime, First dose on 07/02/21 at 210 0 sodium chloride (PF) 0.9 % injection 1-100 mL (COMPLETED) 0042 (Given - Provider: Petra Parra R.NLoretta) 1-100 mL, intravenous, Once, On Sat 06/11 11/28 at 0043, For 1 dose, Imaging Protocol Orders sodium chloride tablet 1 g 0832 (Given - Provider: Wendy Jhaveri RLorettaNLoretta, [facility]) 1 g, oral, 2 times daily with meals, First dose on 07/03/21 at 0800 Continuous Medication Order 07/01/2021 07/02/2021 07/03/2021 lactated ringers (CANCELED) 0305 (New Ba g - Provider: Tea Oliver RLorettaNLoretta)0500 (Rate/Dose Verify - Provider: Tea Oliver, R.N.)0558 (Stopped - Provider: Tea Oliver R.N.) 75 mL/hr, intravenous, Continuous, Starting on 07/02/21 at 0 244 PRN Medication Order 07/01/2021 07/02/2021 07/03/2021 acetaminophen tablet 1,000 mg (TYLENOL) (COMPLETED) 0144 (Given - Provider: King Duran R.N.) 1,000 mg, oral, Once as needed, mild diamond n or score 1-3 of 10, moderate pain or score 4-6 of 10, severe pain or score 7-10 of 10, fever, temperature greater than 38 C, Starting on 07/02/21 at 0141, For 1 dose bisacodyL suppository 10 mg (DULCOLAX) 10 mg, rectal, Daily PRN, constipation, Starting on 07/02/21 at 0243 calcium carbonate chewable tablet 400 mg of calcium (TUMS) 400 mg of calcium, oral, Every 4 hours P RN, heartburn, Starting on 07/02/21 at 0243, Doses listed are in mg of elemental calcium. Take with food. 500 mg calcium carbonate contains 200 mg of elemental calcium. HYDROmorphone (PF) injection 0.2 mg (DILAUDID) 0.2 mg, intravenous, Every 2 hour PRN, s evere pain or score 7-10 of 10, Starting on 07/02/21 at 0338 iohexoL 300 mg iodine/mL solution 1-200 mL (OMNIPAQUE) (COMP LETED) 0042 (Given - Provider: Petra Parra R.N.) 1-200 mL, intravenous, Once in imaging, contrast, Starting on 07/02/21 at 0042, For 1 dose, Imaging Protocol Orders, Dose per Radiant Medication Guidelines ipratropium-albuteroL 0.5-2.5 mg/3 mL nebulizer solution 3 mL (D UONEB) 3 mL, nebulization, 4 times daily PRN, s hortness of breath, Starting on 07/02/21 at 0243 ondansetron (PF) injection 4 mg (ZOFRAN) 4 mg, intravenous, Every 6 hours PRN, na usea, vomiting, Starting on 07/02/21 at 0243, Use Ondansetron before Prochlorperazine or Promethazine oxyCODONE IR tablet 10 mg (ROXICODONE)(Linked Group 1) 0528 (See Alternative - Provider: Tea Oliver R.N.) 10 mg, oral, Every 4 hours PRN, severe p ain or score 7-10 of 10, for breakthrough pain, Starting on 07/02/21 at 0243, Pain unrelieved by other oral analgesics. oxyCODONE IR tablet 5 mg (ROXICODONE)(Linked Group 1) 0528 (Given - Provider: Tea Oliver R.N.) 5 mg, oral, Every 4 hours PRN, moderate pain or score 4-6 of 10, for breakthrough pain, Starting on 07/02/21 at 0243, Pain unrelieved by other oral analgesics. sodium chloride 0.9 % nebulizer solution 3 mL 3 mL, nebulization, As needed, wheezing, Starting on Sat 1 at 0243 Linked Groups Order Group 1: oxyCODONE IR tablet 5 mg (ROXICODONE)Jump to med 5 mg, oral, Every 4 hours PRN, moderate pain or score 4-6 of 10, for breakthrough pain, Starting on 07/02/21 at 0243
Pain unrelieved by other oral analgesics.
Or oxyCODONE IR tablet 10 mg (ROXICODONE)Jump to med 10 mg, oral, Every 4 hours PRN, severe p ain or score 7-10 of 10, for breakthrough pain, Starting on 07/02/21 at 0243
Pain unrelieved by other oral analgesics.
documented in this encounter Additional Health Concerns Infection Onset Date Last Indicated Resolved Time COVID19 Pending 07/02/2021 07/02/2021 07/02/2021 3:40 AM CDT documented as of this encounter Care Teams Cardiac Cath Technician Relationship Specialty Start Date End Date Elsewhere, Pcp PCP - General Family Medicine 07/01/21 documented as of this encounter
--- OUTSIDE RECORDS SUMMARY | 2022-04-19 01:40 | XMS_ITS | Encounter Summary ---
:1950 Author Organization [facility] Address [address] [place] [address] [address] [place] [address] Care Team Providers Name Role Phone Unavailable Primary Care Provider Unavailable Encounter Details Date Type Department Care Team Description 05/26/2021 Orders Only [facility] [place] Hyponatremia [address] [place] [address] Social History Tobacco Use Types Packs/Day Years Used Date Smoking Tobacco: Never Assessed Sex Assigned at Date Recorded Not on file documented as of this encounter Plan of Treatment Not on filedocumented as of this encounter Visit Diagnoses Diagnosis Hyponatremia documented in this encounter
--- OUTSIDE RECORDS SUMMARY | 2022-04-19 01:40 | XMS_ITS | Clinical Summary ---
:1950 Author Organization [facility] Address [address] [place] [address] Care Team Providers Name Role Phone Unavailable Primary Care Provider Unavailable Social History Tobacco Use Types Packs/Day Years Used Date Smoking Tobacco: Never Assessed Sex Assigned at Date Recorded Not on file Plan of Treatment Health Maintenance Due Date Last Done Comments Colorectal Cancer Screening: Annual 1998 FOBT Colorectal Cancer Screenin1998 Colonoscopy Colorectal Cancer Screenin1998 Sigmoidoscopy Pneumococcal Vaccine: 65+ Years (1 2014 - PCV) Influenza Vaccine (#1) 2022 Hepatitis B Vaccine Aged Out No longer el igible based on patient's age to complete this topic Insurance Payer Benefit Plan Subscriber ID Effective Dates Phone Address Type / Group [place] [facility] [id number] 2016-Sonia [phone] [address] [address] MEDICARE ADV ([id number]) [address] [place] [address]
--- OUTSIDE RECORDS SUMMARY | 2022-04-19 01:40 | XMS_ITS | Encounter Summary ---
:1950 Author Organization [facility] Address [address] [place] [address] [address] [place] [address] Care Team Providers Name Role Phone Unavailable Primary Care Provider Unavailable Encounter Details Date Type Department Care Team Description 05/26/2021 Documentation Only [facility] [place], [address] [place] [address] [address] Russell [phone] (Wo rk) Social History Tobacco Use Types Packs/Day Years Used Date Smoking Tobacco: Never Assessed Sex Assigned at Date Recorded Not on file documented as of this encounter Plan of Treatment Not on filedocumented as of this encounter Visit Diagnoses Not on filedocumented in this encounter
--- OUTSIDE RECORDS SUMMARY | 2022-04-19 01:40 | XMS_ITS | Encounter Summary ---
:1950 Author Organization [facility] Address [address] [place] [address] [address] [place] [address] Care Team Providers Name Role Phone Unavailable Primary Care Provider Unavailable Reason for Referral Consultation (Routine) - Closed Specialty Diagnoses / Procedures Referred By Contact Refer red To Contact Nephrology Diagnoses Hyponatremia Annamarie Massey MD [facility] [address] [place], [place] [address] [address] [place] [address] Phone: Fax: Referral ID Status Reason Start Date Expiration Date Visits V isits Requested Authorized [id number] Closed Consult and 05/26/2021 11/22/2021 1 1 Treat Encounter Details Date Type Department Care Team Description 05/26/2021 Transcribe Orders [facility] yp[facility] (Primary VIDHYA De Luna MD Dx) [address] [facility] [id number] [phone] Social History Tobacco Use Types Packs/Day Years Used Date Smoking Tobacco: Never Assessed Sex Assigned at Date Recorded Not on file documented as of this encounter Plan of Treatment Scheduled Referrals Name Type Priority Associated Diagnoses Order S chedule Ambulatory referral Outpatient Referral Routine Hyponatremia E xpected: to Nephrology 05/26/2021, Expires: 06/25/2022 documented as of this encounter Visit Diagnoses Diagnosis Hyponatremia - Primary documented in this encounter
--- OUTSIDE RECORDS SUMMARY | 2022-04-19 01:40 | XMS_ITS | Encounter Summary ---
:1950 Author Organization [facility] Address [address] [place] [address] [address] [place] [address] Care Team Providers Name Role Phone Unavailable Primary Care Provider Unavailable Encounter Details Date Type Department Care Team Description 05/30/2021 Documentation Only [facility], [address] [place] [address] [address] [phone] (Wo rk) Social History Tobacco Use Types Packs/Day Years Used Date Smoking Tobacco: Never Assessed Sex Assigned at Date Recorded Not on file documented as of this encounter Plan of Treatment Not on filedocumented as of this encounter Visit Diagnoses Not on filedocumented in this encounter
--- OUTSIDE RECORDS SUMMARY | 2022-04-19 01:40 | XMS_ITS | Encounter Summary ---
:1950 Author Organization [facility] Address [address] [place] [address] [address] [place] [address] Care Team Providers Name Role Phone Unavailable Primary Care Provider Unavailable Encounter Details Date Type Department Care Team Description 05/26/2021 Documentation Only [facility], [address] [place] [address] [address] [phone] (Wo rk) Social History Tobacco Use Types Packs/Day Years Used Date Smoking Tobacco: Never Assessed Sex Assigned at Date Recorded Not on file documented as of this encounter Plan of Treatment Not on filedocumented as of this encounter Visit Diagnoses Not on filedocumented in this encounter
== END 2022-04-12 10:11 | disposition home or self-care (01) ==
LOC: MAMMO 10:12
PROVIDERS: PCP Family Medicine; Visit Provider Physician Assistant
DX: Z12.31 Encounter for screening mammogram for malignant neoplasm of breast (principal); R92.2 Inconclusive mammogram
CPT/HCPCS: 77063; 77067

== ENCOUNTER 2022-05-09 08:15 | Outpatient (RCR) | payer MEDICARE, BC, SELFPAY ==
[2022-05-09 09:03] LABS: Creatinine* 1.3 mg/dL (0.5-1.5); Estimated Glomerular Filt Rate 44 ml/min
== END 2022-11-05 23:59 | disposition home or self-care (01) ==
LOC: CCIC 08:15
PROVIDERS: PCP Family Medicine; Referring Provider Family Medicine; Visit Provider Clinical Nurse Specialist
DX: Z45.2 Encounter for adjustment and management of vascular access device (principal)
CPT/HCPCS: 36415; 36591; 82565

== ENCOUNTER 2022-05-09 08:20 | Outpatient (CLI) | payer MEDICARE, BC, SELFPAY ==
--- OUTSIDE RECORDS SUMMARY | 2022-05-09 08:22 | XMS_ITS | Clinical Summary ---
:1950 Author Organization [facility] Address [address] [place] [address] Care Team Providers Name Role Phone Elsewhere, Pcp Primary Care Provider Unavailable Source Comments Patient records contain information from all sites at [facility]. For routine questions regarding patient records, call [phone] during business hours, M-F 8:00 AM - 5:00 PM Central Time. Record requests for emergency care only can be directed to [phone] at any time.[facility] Allergies Active Allergy Reactions Severity Noted Date [...] containing 4 or more times a w [place] 07/18/2021 alcohol? How many drinks containing alcohol [...] or relatives? How often do you attend zoroastrianism or worship More than 4 time s per year 07/18/2021 services? Do you belong to any clubs or organizations Yes 07/18/2021 such as zoroastrianism groups, unions, fraternal or athletic groups, or [...] place to sleep or slept in a [place] [facility] (including now)? Education Answer Date Recorded What [...] e / Group Dates MEDICARE MEDICARE A [id number] 2014-Pres [address] [place] [address] BLUE CROSS BCBS NUIQSUT [id number] 2016-Pres [phone] PO ED X Cost Share BLUE SHIELD BLUE COST ent [phone] [place] [address] Advance Directives For more information, please contact: [phone] Latest Code Status on File Code Status Date Activated Date Inactivated Comments Full Code 07/02/2021 2:44 AM 07/03/2021 3:55 PM Full Code: Discussed Care Teams Napper Runner Relationship Specialty Start Date End Date Elsewhere, Pcp PCP - General Family Medicine 07/01/21
--- OUTSIDE RECORDS SUMMARY | 2022-05-09 08:22 | XMS_ITS | Clinical Summary ---
:1950 Author Organization [employer] [facility] [place] [address] Care Team Providers Name Role Phone Silver Whalen MD Primary Care Provider Opal Alcantara MD Unavailable Nurses, Advanced Heart Failure Unavailable [phone] Allergies Active Allergy Reactions Severity Noted Date Comments Duloxetine Rash Medium 04/03/2019 Medications Medication Sig Dispensed Refills Start Date End Date Status simvastatin (ZOCOR) Take 40 mg by mouth 0 Active 40 mg tablet at bedtime. aspirin chewable 81 Take 1 tablet by 0 04/03/2019 Active mg chewable tablet mouth once daily with a meal. gabapentin Take 2 capsules by 3 05/25/2020 Active (NEURONTIN) 300 mg mouth 2 times capsule daily. atenoloL (TENORMIN) Take 25 mg by mouth 0 05/12/2020 Active 25 mg tablet 2 times daily. sodium chloride 1 Take 1 Tablet (1 g) 60 Tablet 11 05/31/2021 Active gram by mouth 2 times tabletIndications: daily. Hyponatremia, SIADH (syndrome of inappropriate ADH production) (HC) oxygen-air delivery Oxygen for home 1 Each 0 06/03/2021 Active systems (HOME use. Liters per OXYGEN)Indications: minute: 2 per nasal Chronic hypoxemic cannula with rest. respiratory failure 3 liters with sleep (HC) and activity Frequency of use: Continuous with portability.;. Length of need: 99 Months. oxygen-air delivery Portable Oxygen 1 Each 11 06/16/2021 Active systems (HOME Concentrator - 3L OXYGEN)Indications: per NC pulse with MONIKA (obstructive activity, use at sleep apnea) home for lifetime varenicline (Chantix Take one 0.5mg tab 1 Packet 0 06/16/2021 Active Starting Month Box) daily for 3 days, 0.5 mg (11)- 1 mg then one 0.5mg tab (42) twice daily for 4 tabletIndications: days, then one 1mg Tobacco abuse tab twice daily. varenicline (Chantix Take 1 mg by mouth 60 Tablet 6 06/16/2021 Active Continuing Month 2 times daily with Box) 1 mg meals. tabletIndications: Tobacco abuse amLODIPine (NORVASC) Take 10 mg by mouth 0 1 Active 10 mg tablet once daily. losartan (COZAAR) 50 Take 0.5 Tablets 45 tablet. 3 06/24/2021 Active mg (25 mg) by mouth tabletIndications: once daily. Cardiopathy CPAPIndications: MONIKA CPAP, heated 1 Each 1 03/16/2022 Active (obstructive sleep humidifier, full apnea) face mask, headgear, chinstrap, filters and heated tubing. For home use. Pressure: 11 cm H20 Needs 4 liters oxygen bled into CPAP Length of Need: 99 months; Frequency of use: Daily furosemide (LASIX) Take 40 mg by mouth 0 04/11/2022 Active 40 mg tablet once daily. fluticasone Inhale 1 Puff by 1 Each 6 04/28/2022 Active propion-salmeteroL mouth twice daily (Advair Diskus) 12 hours apart. 100-50 mcg/dose diskus inhalerIndications: Chronic obstructive pulmonary disease, unspecified COPD type (HC) Active Problems Problem Noted Date Hyponatremia 08/11/2020 Mild concentric left ventricular hypertrophy (LVH) 10/2019 Elevated serum creatinine 06/26/2019 Ischemic colitis 01/03/2018 Gynecologic malignancy 01/03/2018 Bright red rectal bleeding 12/31/2017 Tobacco abuse 12/31/2017 Alcohol abuse 12/31/2017 Ovarian mass, left 12/31/2017 Routine General Medical Examination at [facility] 07/08/2008 Overview: Lipids - 11/16/06 - cholesterol - 204, LDL - 112, TG - 230 Dexa- none found mammo- 07/09/08 Colon - 01/12/2003, due 2007 Pap/pelvic -09/26/05 - NL Thyroid- none found Hep B-none found Tetanus-12/12/02 Diabetic-no Unspecified essential hypertension 11/17/2006 Obesity, unspecified 11/17/2006 Other and unspecified hyperlipidemia 11/17/2006 Encounters Date Type Specialty Care Team Description 04/28/2022 Office Visit Oni Shaw MD Fol low Up (MONIKA (obstructive sleep apnea)) 04/28/2022 Travel 03/29/2022 Telephone Celio Florence, Resu lts 03/24/2022 Orders Only Lab, [facility] 03/24/2022 Travel 03/14/2022 Refill Oni Shaw MD Ref ill Request (Cpap rx supplies) 03/09/2022 Orders Only <No scans attac hed> 03/09/2022 Travel 02/22/2022 Orders Only Celio Florence, <No scans attached> 02/17/2022 Orders Only Lab, [facility] 02/17/2022 Travel from Last 3 Months Immunizations Name Administration Dates Next Due Influenza Virus, Unspecified 07/02/2018, 01/16/2018 Influenza, IIV3 (Age >=3 years) 07/09/2008, 09/26/2005 Pneumococcal Poly,23-Valent (Pneumovax) 10/27/2014 Td (Age >=7 Years) 12/12/2002 Tdap 05/05/2011 Zoster (Shingrix-RZV, recombinant) 05/23/2019, 02/17/2019 Family History Medical History Relation Name Comments Heart Disease Father Heart attack Father Cancer-breast Maternal Aunt Stroke Maternal Grandfather No Known Problems Maternal Grandmother Cancer-breast Mother age 80 Heart Disease Mother Lymphoma Mother Other Other no colon or gyne cological cancers. no premature rasmussen ry artery disease. no diabetes. No Known Problems Paternal Grandfather Stomach cancer Paternal Grandmother Cancer-colon No Family History Relation Name Status Comments Brother Alive Father Maternal Aunt Maternal Grandfather Maternal Grandmother Mother Other Paternal Grandfather Paternal Grandmother Social History Tobacco Use Types Packs/Day Years Used Date Current Every Day Smoker Cigarettes 0.5 Smokeless Tobacco: Never Used Tobacco Cessation: Ready to Quit: Yes; C ounseling Given: Yes Alcohol Use Standard Drinks/Week Comments Yes 0 (1 standard drink = 0.6 oz pure occasi onal, 5-6 drinks per week alcohol) Alcohol Habits Answer Date Recorded How often do you have a drink Not asked containing alcohol? How many drinks containing alcohol do Not asked you have on a typical day when you are drinking? How often do you have six or more Not asked drinks on one occasion? Comment: occasional, 5-6 drinks per week 01/01/20 17 Sex Assigned at Date Recorded Not on file COVID-19 Exposure Response Date Recorded In the last 10 days, have you been in contact with No / Unsu re 04/28/2022 1:45 PM CDT someone who was confirmed or suspected to have Coronavirus/COVID-19? Obstetrics History Last Filed Vital Signs Vital Sign Reading Time Taken Comments Blood Pressure 130/61 04/28/2022 1:55 PM CDT Pulse 66 04/28/2022 1:55 PM CDT Temperature 36.8 ??C (98.2 ??F) 07/14/2018 7:42 AM LOOM CLEANER Respiratory Rate 20 06/23/2021 11:01 AM CDT Oxygen Saturation 92% 04/28/2022 1:55 PM CDT Inhaled Oxygen Concentration - - Weight 103.9 kg (229 lb) 04/28/2022 1:55 PM CDT Height 165.1 cm (5' 5) 04/28/2022 1:55 PM CDT Body Mass Index 38.11 04/28/2022 1:55 PM CDT Plan of Treatment Upcoming Encounters Date Type Specialty Care Team Description 06/26/2022 Orders Only Lab[facility] Maintenance Due Date Last Done Comments Depression screening for age 12+ 1961 Hepatitis C screening for age 0210/22/1967 18-79 Medicare Wellness for age 65+ 2014 Pneumococcal series for age 65+ (2 10/27/2015 10/27/2014 - PCV) Mammogram for age 45-75 03/10/2021 03/10/2020 (Completed ou [facility]), 07/09/2008 Tetanus booster 05/05/2021 05/05/2011, 12/12/2002 Influenza for age 65+ 05/11/2022 07/02/2018, 01/16/2018, 07/09/2008, Additional history exists BMI (ht and wt on same day) for 04/28/2023 04/28/2022, 07/11, age 18+ 06/03/2021, Additional history exists Lipids for age 45-75 10/25/2025 10/25/2020, 09/27/2020, 08/30/2020, Additional history exists Colonoscopy through age 75 01/03/2028 01/02/2018, 9 Tdap Completed 05/05/2011 Zoster (shingles) series for age Completed 05/23/2019, 06/2019 50+ DEXA/DXA scan for age 65+ Completed 07/11/2019 ([facility] COVID-19 vaccine series Completed 01/31/2022, 07/19/2021, 11/30/2020, Additional history exists Medical Devices Implanted Type Area Commercial Assistant Device Shelf Model / Identifier Expiration Date Ser ial / Lot Adhesion Barrier 5x6in Seprafilm Absorb - [id number] 09/09/2019 [id number] / Implanted: Qty: 2 on 07/11/2018 by Li yen, Annamarie Kinney MD at [facility] / [id number] Procedures Procedure Name Priority Date/Time Associated Diagnosis Comme nts BASIC METABOLIC Routine 03/24/2022 10:29 AM Elevated serum Res ults for this PANEL CDT creatinine procedure are i n the results section. ECHO COMPLETE WO Routine 03/09/2022 1:08 PM CHF (congestive Re sults for this CONTRAST CDT heart failure) (HC) procedur e are in the results section. BASIC METABOLIC Routine 02/17/2022 10:05 AM Hyponatremia Results for this PANEL CDT Hyperkalemia procedure are in CKD (chronic kidney the resu lts disease) stage 2, section. GFR 60-89 ml/min from Last 3 Months Results (ABNORMAL) BASIC METABOLIC PANEL (03/24/2022 10:29 AM CDT)Only the most recent of2 resultswithin the time period is included. [facility] Time Signature SODIUM 138 135 - 145 03/24/2022 [facility] mmol/L 7:24 PM CDT [facility] POTASSIUM 4.6 3.5 - 5.0 03/24/2022 [facility] mmol/L 7:24 PM CDT [facility] CHLORIDE 101 98 - 110 03/24/2022 [facility] mmol/L 7:24 PM CDT [facility] CO2,TOTAL 27 21 - 31 03/24/2022 [facility] mmol/L 7:24 PM CDT [facility] ANION GAP 10 5 - 18 03/24/2022 [facility] 7:24 PM CDT [facility] GLUCOSE 119 (H) 65 - 100 03/24/2022 [facility] mg/dL 7:24 PM CDT [facility] CALCIUM 9.5 8.5 - 10.5 03/24/2022 [facility] mg/dL 7:24 PM CDT [facility] BUN 14 8 - 25 03/24/2022 [facility] mg/dL 7:24 PM CDT [facility] CREATININE 0.88 0.57 - 03/24/2022 [facility] 1.11 mg/dL 7:24 PM CDT [facility] BUN/CREAT RATIO 16 10 - 20 03/24/2022 [facility] 7:24 PM CDT [facility] eGFR 70 (L) >90 03/24/2022 [facility] mL/min/1.7 7:24 PM CDT [facility] 3m2 [facility] Comment: As of 2021, eGFR is calcu lated by the CKD-EPI creatinine equation without race adjustment. eGFR can be inf luenced by muscle mass, exercise, and diet. The reported eGFR is an estimation only and is only applicable if the renal function is stable. Specimen Anatomical Collection Method / Collection Time Recei ventura Time (Source) Location / Volume Laterality Blood BLOOD SPECIMEN / Venipuncture / 03/24/2022 10:29 03/24 Unknown Unknown AM CDT 10:29 AM CDT Celio Flornece MD CHEMISTRY Performing Organization Address City/State/ZIP Code Phon e Number [facility] [address] [place] [address] [facility] LABORATORY ECHO COMPLETE WO CONTRAST (03/09/2022 1:08 PM CDT) athologist Signature AORTIC VALVE 9 mmHg MEAN PG EJECTION 76 % FRACTION PEAK TR 3.3 m/s VELOCITY LVEDD 5.2 cm Anatomical Region Laterality Modality HEART Ultrasound Specimen (Source) Anatomical Collection Method Collection Time Re ceived Time Location / / Volume Laterality 03/09/2022 12:08 PM CDT Narrative 03/09/2022 2:08 PM CDT ECHOCARDIOGRAM MONIK GALLEGO ? Accessi on#: ?? [id number] : ?1950 71 years Study Date: ?? 03/09/2022 12:08:55 PM Gender: F ?BP: ? 142/87 mmHg Height: 165.00 cm ?BSA: ?2.10 m? ?? Weight: 104.00 kg ?Tech: ? MTS ? Referring MD: ENEIDA PUCKETT Site: ? [facility] [place] [facility] Reading Location: [facility] Procedure: 2D, Color Doppler and Spectra l Doppler. Indication for study: CHF (congestive he art failure) (HC) [I50.9 (ICD-10-CM)] Cardiac Rhythm: Regular.Study quality: Imaging limitations: This study was subj ect to imaging limitations due to body habitus and a prominent lung artifact. Final Impressions: 1. Normal left ventricular size, modera tely increased wall thickness, hyperdynamic global systolic function, calculated EF of 76 %. 2. No significant valve disease detecte d. 3. Right ventricular cavity size is nor mal, global systolic RV function is normal. 4. Moderately increased estimated pulmo nary pressures by tricuspid regurgitation velocity and right atrial pressure (44 mmHg plus RAP). 5. The inferior vena cava is dilated, r espiratory size variation less than 50%, consistent with elevated right atrial pressure. 6. Compared with images of the prior st udy of 03/26/2020, there has been no significant interval change. Chamber Sizes and Function Normal left ventricular size, moderately increased wall thickness, hyperdynamic global systolic function, calculated EF of 76 %. Left atrial size is normal. Right ventricular cavity size is normal, glob al systolic RV function is normal. RV wa ll thickness is normal. The right atrium is normal. Right atrial volume index is 30 ml/m? ??. Right atrial area is 21 cm? ??. The pulmonary artery is of normal si ze and origin. The sinus of Valsalva is normal sized. The ascending aorta is normal for age/sex/bsa. Valves, RV Pressures and Diastolic Funct ion The aortic valve is normal in structure and trileaflet, no stenosis and no regurgitation. The mitral valve is normal in structure, trace mitral regurgitation. Normal diastolic function. The tricuspid va lve is normal in structure. Tricuspid re gurgitation is mild regurgitation. The tricuspid regurgitant velocity is 3.3 m/s, the estimated right ventricular systolic pressure is 44 mmHg plus right atrial p ressure. There is moderately increased e stimated pulmonary pressure by tricuspid regurgitation velocity and right atrial pressure. The pulmonic valve is normal. No pulmonary regurgitation. Masses, Effusion, Shunts There is no pericardial effusion. The in ferior vena cava is dilated, respiratory size variation less than 50%, consistent with elevated right atrial pressure. No left to right shunting was detected by l imited color flow Doppler interrogation of the interatrial septum. MEASUREMENTS AND CALCULATIONS 2-D Measurements and LV Function: LVID (d) 5.2 cm Planimetered EF 76 % LVID (s) 2.5 cm LV FS% (2D) ? 52 % IVS (d) ??1.3 cm LVOT diameter ?? 2.0 cm LVPW (d) 1.3 cm HR ?8 4 bpm Ao Sinus 3.4 cm LA Vol index ?38 ml/ m2 Asc Ao ?? 3.8 cm RA Vol index ?30 ml /m2 LA ? 4.9 cm RA area ? 2 1 cm?RV Max 4C (d) ?? 3.9 cm Diastology: Mitral ?Tissue Doppler ?Pulmonary veins E Peak 1.0 m/s ??e', Septum ? 0.07 m /s Pulm s ?65.0 cm/s A Peak 1.0 m/s ??e', Lateral ?0.12 m /s Pulm d ?61.4 cm/s E/A ?1.0 ?E/e' Average ?? 10. 27 ?Pulm s/d ratio ??1.06 DT ? 159 msec IVRT ?? 68 msec Aortic Valve: Vmax ? 2.0 m/s ??NANCY (V) ?? 2.66 cm? ?? VTI ?0.45 m ?? NANCY (I) ?? 2.32 cm? ?? LVOT V max 1.6 m/s ??Max PG ?15 mmHg LVOT VTI ?? 0.33 m ?? Mean PG ?? 9 mmHg SV ? 104 ml ?? Dim Index 0.74 SV index ?? 50 ml/m? ?? CO ?8.7 l/min ?CI ?4.2 l/min/m? ?? Mitral Valve: MVA ?4.8 cm? ?? MV P 1/2 46 msec Tricuspid Valve and estimated PA pressur es: TR Vmax 3.3 m/s TAPSE 2.3 cm TR maxG 44 mmHg . This study was interpreted by an [facility] redited facility. CC: [facility], Med/ Surg - IP [facility]. ??Final ?? Procedure Note Rodney Ayoub MD - 03/09/2022 ECHOCARDIOGRAM MONIK GALLEGO : 1950 71 years Study Date: 03/09 12:08:55 PM Gender: F BP: 142/87 mmHg Height: 165.00 cm BSA: 2.10 m? ?? Weight: 104.00 kg Tech: MTS Referring MD: ENEIDA PUCKETT Site: [facility] Reading Location: [facility] Procedure: 2D, Color Doppler and Spectra l Doppler. Indication for study: CHF (congestive he art failure) (HC) [I50.9 (ICD-10-CM)] Cardiac Rhythm: Regular.Study quality: Imaging limitations: This study was subj ect to imaging limitations due to body habitus and a prominent lung artifact. Final Impressions: 1. Normal left ventricular size, modera tely increased wall thickness, hyperdynamic global systolic function, calculated EF of 76 %. 2. No significant valve disease detecte d. 3. Right ventricular cavity size is nor mal, global systolic RV function is normal. 4. Moderately increased estimated pulmo nary pressures by tricuspid regurgitation velocity and right atrial pressure (44 mmHg plus RAP). 5. The inferior vena cava is dilated, r espiratory size variation less than 50%, consistent with elevated right atrial pressure. 6. [facility], there has been no significant interval change. Chamber Sizes and Function Normal left ventricular size, moderately increased wall thickness, hyperdynamic global systolic function, calculated EF of 76 %. Left atrial size is normal. Right ventricular cavity size is normal, global systolic RV function is normal. RV wall thickness is normal. The right atrium is normal. Right atrial volume index is 30 ml/m? ??. Right atrial area is 21 cm? ??. The pulmonary artery is of normal size and origin. The sinus of Valsalva is normal sized. The ascending aorta is normal for age/sex/bsa. Valves, RV Pressures and Diastolic Funct ion The aortic valve is normal in structure and trileaflet, no stenosis and no regurgitation. The mitral valve is normal in structure, trace mitral regurgitation. Normal diastolic function. The tricuspid valve is normal in structure. Tricuspid regurgitation is mi ld regurgitation. The tricuspid regurgitant velocity is 3.3 m/s, the estimated right ventricular systolic pressure is 44 mmHg plus right atrial pressure. There is moderately increased estimated pulmonary pressure b y tricuspid regurgitation velocity and right atrial pressure. The pulmonic valve is normal. No pulmonary regurgitation. Masses, Effusion, Shunts There is no pericardial effusion. The in ferior vena cava is dilated, respiratory size variation less than 50%, consistent with elevated right atrial pressure. No left to right shunting was detected by limited color flow Doppler interrogation of the intera trial septum. MEASUREMENTS AND CALCULATIONS 2-D Measurements and LV Function: LVID (d) 5.2 cm Planimetered EF 76 % LVID (s) 2.5 cm LV FS% (2D) 52 % IVS (d) 1.3 cm LVOT diameter 2.0 cm LVPW (d) 1.3 cm HR 84 bpm Ao Sinus 3.4 cm LA Vol index 38 ml/m2 Asc Ao 3.8 cm RA Vol index 30 ml/m2 LA 4.9 cm RA area 21 cm? ?? RV Max 4C (d) 3.9 cm Diastology: Mitral Tissue Doppler Pulmonary veins E Peak 1.0 m/s e', Septum 0.07 m/s Pulm s 65.0 cm/s A Peak 1.0 m/s e', Lateral 0.12 m/s Pulm d 61.4 cm/s E/A 1.0 E/e' Average 10.27 Pulm s/d rati o 1.06 DT 159 msec IVRT 68 msec Aortic Valve: Vmax 2.0 m/s NANCY (V) 2.66 cm? ?? VTI 0.45 m NANCY (I) 2.32 cm? ?? LVOT V max 1.6 m/s Max PG 15 mmHg LVOT VTI 0.33 m Mean PG 9 mmHg SV 104 ml Dim Index 0.74 SV index 50 ml/m? ?? CO 8.7 l/min CI 4.2 l/min/m? ?? Mitral Valve: MVA 4.8 cm? ?? MV P 1/2 46 msec Tricuspid Valve and estimated PA pressur es: TR Vmax 3.3 m/s TAPSE 2.3 cm TR maxG 44 mmHg . This study was [facility]. CC: [facility], Med/ Surg - IP [facility]. Final Eneida TRAORE ORD from Last 3 Months Insurance Payer Benefit Plan / Subscriber ID Effective Dates Phone Addre ss Type Group MEDICARE PART A MEDICARE PART A [id number] 2014-Presen ATTN: CLAIMS - HB USE ONLY HB ONLY t [address] [place] [address] MEDICARE PART B MEDICARE PART B [id number] 2014-Presen ATTN: CLAIMS - HB USE ONLY HB ONLY t [address] [place] [address] BLUE CROSS MR BLUE CROSS [id number] 2016-Presen [address] [address] [employer] [place] [employer] [place], [place] MR [place] ONLY [id number] BLUE CROSS BLUE CROSS [id number] 2016-Presen [address] [address] [employer] [place] [employer] [place], [place] ONLY [id number] Advance Directives Documents on File Type Date Recorded Patient Orthopedic Radiologic Technologist Explanati on Healthcare Directive 01/02/2018 5:54 AM Healthcare Directive 12/31/2017 12:00 AM 02/05/15 Latest Code Status on File Code Status Date Activated Date Inactivated Comments Full Code 07/11/2018 6:13 AM 07/14/2018 2:03 PM Full Code 12/31/2017 9:37 PM 01/03/2018 3:50 PM Care Teams Wire Coater Relationship Specialty Start Date End Date Silver Whalen MD PCP - General Family Practice 12/31/171999 [place] [phone] Opla Alcantara MD Cardiovascular Disease 05/28/[address] [place] [address] [address] [place] [address] Nurses, Advanced Heart [facility] 05/28/20 Failure Failure/Transplant Card [address] [place] [phone]
--- OUTSIDE RECORDS SUMMARY | 2022-05-09 08:22 | XMS_ITS | Encounter Summary ---
:1950 Author Organization [facility] Address [address] [place] [address] Care Team Providers Name Role Phone Elsewhere, Pcp Primary Care Provider Unavailable Reason for Visit Reason Comments Return Visit Outpatient (Routine) - Closed Specialty Diagnoses / Procedures Referred By Contact Refer red To Contact Trauma Critical Care Damaris Arreguin, [facility] Kal ZAPIEN, M.S.N. [address] [place] [phone] Referral ID Status Reason Start Date Expiration Date Visits Requ ested Visits Authorized [id number] Closed 07/03/2021 07/03/2022 1 1 Encounter Details Date Type Department Care Team Description 07/18/2021 Office Visit Division of Trauma Damaris Arreguin, RUPALI C.N.Julito., M.S.N. [address] [place] [phone] Fracture Rib Single Critical Care and Ambrosio Newton P.A.-C. [address] [place] [phone] Subsequent With General Surgery in Routine [place], [place] (Primary Dx) [address] [place] [phone] Social History Tobacco Use Types Packs/Day Years Used Date Smoking Tobacco: Every Day Cigarettes 0.5 50 Smokeless Tobacco: Never Alcohol Habits Answer Date Recorded How often do you have a drink containing 4 or more times a w [place] 07/18/2021 alcohol? How many drinks containing alcohol [...] or relatives? How often do you attend episcopal or jainism More than 4 time s per year 07/18/2021 services? Do you belong to any clubs or organizations Yes 07/18/2021 such as episcopal groups, unions, fraternal or athletic groups, or [...] place to sleep or slept in a fdc (including now)? Education Answer Date Recorded What [...] OBJECTIVE PHYSICAL EXAM Exam conducted with a housekeeping coordinator present ( present). Constitutional Appearance: Normal appearance. [...] way that we can be of assistance. SHER CARD TENDER documented in this encounter Plan of Treatment Not on filedocumented as of this encounter Visit Diagnoses Diagnosis Fracture Rib Single Subsequent With Rout ine Healing Right - Primary documented in this encounter Care Teams Chief Revenue Officer Relationship Specialty Start Date End Date Elsewhere, Pcp PCP - General Family Medicine 07/01/21 documented as of this encounter
--- OUTSIDE RECORDS SUMMARY | 2022-05-09 08:22 | XMS_ITS | Encounter Summary ---
:1950 Author Organization [facility] Address [address] [place] [address] Care Team Providers Name Role Phone Elsewhere, Pcp Primary Care Provider Unavailable Encounter Details Date Type Department Care Team Description 07/18/2021 Hospital Encounter Department of Rodríguez, Damaris Wiley Pneu mothorax Trauma Initial; Radiology, Saen ZAPIEN C.N.P., Fracture Rib Single Closed Initial Right [facility], [facility], [facility] [address] [place], [place] [address] [place] [address] [place], [place] [phone] (Work) [phone] Social History Tobacco Use Types Packs/Day Years Used Date Smoking Tobacco: Every Day Cigarettes 0.5 50 Smokeless Tobacco: Never Alcohol Habits Answer Date Recorded How often do you have a drink containing 4 or more times a w [place] 07/18/2021 alcohol? How many drinks containing alcohol [...] or relatives? How often do you attend voodoo or sikh More than 4 time s per year 07/18/2021 services? Do you belong to any clubs or organizations Yes 07/18/2021 such as voodoo groups, unions, fraternal or athletic groups, or [...] place to sleep or slept in a nursing home (including now)? Education Answer Date Recorded What [...] this AND LATERAL 2 (most inpatients PM ECONOMIC SPECIALIST Initial procedure are in VIEWS and all Fracture Rib Single the resu lts outpatients) Closed Initial section. Right documented in this encounter Results DX Chest AP or PA and Lateral 2 Views (07/18/2021 12:11 PM ECONOMIC SPECIALIST) Anatomical Region Laterality Modality Chest, Thoracic RST LOS, Thoracic ARZ LOS, Thoracic N/A Digital Radiography FLA LOS Specimen (Source) Anatomical Collection Method Collection Time Re ceived Time Location / / Volume Laterality 07/18/2021 12:16 PM ECONOMIC SPECIALIST Impressions 07/18/2021 12:23 PM ECONOMIC SPECIALIST Since 07/03/2021, the previously seen tiny right [...] posterior fifth rib. Narrative 07/18/2021 12:23 PM ECONOMIC SPECIALIST EXAM: ??DX CHEST AP OR PA AND [...] Right documented in this encounter Care Teams Mortgage Manager Relationship Specialty Start Date End Date Elsewhere, Pcp PCP - General Family Medicine 07/01/21 documented as of this encounter
--- OUTSIDE RECORDS SUMMARY | 2022-05-09 08:23 | XMS_ITS | Encounter Summary ---
:1950 Author Organization [facility] Address [address] [place] [address] [address] [place] [address] Care Team Providers Name Role Phone Unavailable Primary Care Provider Unavailable Reason for Referral Consultation (Routine) - Closed Specialty Diagnoses / Procedures Referred By Contact Refer red To Contact Nephrology Diagnoses Hyponatremia Annamarie Massey MD [facility] [address] [place], [place] [address] [address] [place] [address] Phone: Fax: Referral ID Status Reason Start Date Expiration Date Visits V isits Requested Authorized [id number] Closed Consult and 05/26/2021 11/22/2021 1 1 Treat Encounter Details Date Type Department Care Team Description 05/26/2021 Transcribe Orders [facility] yponatremia (Primary VIDHYA De Luna MD Dx) [address] [facility] [address] [phone] Social History Tobacco Use Types Packs/Day Years [...]
--- OUTSIDE RECORDS SUMMARY | 2022-05-09 08:23 | XMS_ITS | Encounter Summary ---
:1950 Author Organization [facility] Address [address] [place] [address] Care Team Providers Name Role Phone Unavailable Primary Care Provider Unavailable Encounter Details Date Type Department Care Team Description 05/30/2021 Office Communication [facility] [place], [address] MD [address], [place] [address] [place], [place] [phone] Social History Tobacco Use Types Packs/Day Years Used Date Smoking Tobacco: Never Assessed Sex Assigned at Date Recorded Not on file documented as of this encounter Miscellaneous Notes Telephone Encounter - Jennifer Alonso - 05/30/2021 10:54 AM CDT Patient declines to schedule with [place], stated she wants to follow with someone in [place]. Letter faxed to PCP. documented in this encounter Plan of Treatment Not on filedocumented as of this encounter Visit Diagnoses Not on filedocumented in this encounter
--- OUTSIDE RECORDS SUMMARY | 2022-05-09 08:23 | XMS_ITS | Encounter Summary ---
:1950 Author Organization [facility] Address [address] [place] [address] [address] [place] [address] Care Team Providers Name Role Phone Unavailable Primary Care Provider Unavailable Encounter Details Date Type Department Care Team Description 05/30/2021 Documentation Only [facility], [address] MD [address] [place] [address] [address] [phone] (Wo rk) Social History Tobacco Use Types Packs/Day Years Used Date Smoking Tobacco: Never Assessed Sex Assigned at Date Recorded Not on file documented as of this encounter Plan of Treatment Not on filedocumented as of this encounter Visit Diagnoses Not on filedocumented in this encounter
--- OUTSIDE RECORDS SUMMARY | 2022-05-09 08:23 | XMS_ITS | Encounter Summary ---
:1950 Author Organization [facility] Address [address] [place] [address] [address] [place] [address] Care Team Providers Name Role Phone Unavailable Primary Care Provider Unavailable Encounter Details Date Type Department Care Team Description 05/26/2021 Documentation Only [facility], [address] [place] [address] [address] [phone] (Wo rk) Social History Tobacco Use Types Packs/Day Years Used Date Smoking Tobacco: Never Assessed Sex Assigned at Date Recorded Not on file documented as of this encounter Plan of Treatment Not on filedocumented as of this encounter Visit Diagnoses Not on filedocumented in this encounter
--- OUTSIDE RECORDS SUMMARY | 2022-05-09 08:23 | XMS_ITS | Clinical Summary ---
:1950 Author Organization [facility] Address [address] [place] [address] Care Team Providers Name Role Phone Unavailable [...] Type / Group [place] [facility] [id number] 2016-Sonia [phone] [address] [address] MEDICARE ADV ([id number]) [address] [place] [address]
--- OUTSIDE RECORDS SUMMARY | 2022-05-09 08:23 | XMS_ITS | Encounter Summary ---
:1950 Author Organization [facility] Address [address] [place] [address] [address] [place] [address] Care Team Providers Name Role Phone Unavailable Primary Care Provider Unavailable Encounter Details Date Type Department Care Team Description 05/26/2021 Orders Only [facility] [place] Hyponatremia [address] [place] [address] Social History Tobacco Use Types Packs/Day Years Used Date Smoking Tobacco: Never Assessed Sex Assigned at Date Recorded Not on file documented as of this encounter Plan of Treatment Not on filedocumented as of this encounter Visit Diagnoses Diagnosis Hyponatremia documented in this encounter
--- OUTSIDE RECORDS SUMMARY | 2022-05-09 08:23 | XMS_ITS | Encounter Summary ---
:1950 Author Organization [facility] Address [address] [place] [address] Care Team Providers Name Role Phone Elsewhere, Pcp Primary Care Provider Unavailable Reason for Referral Outpatient (Routine) - Closed Specialty Diagnoses / Procedures Referred By Contact Refer red To Contact Trauma Critical Care Damaris Arreguin, [facility] and General Surgery Kal ZAPIEN, M.S.N. [address] [place] [phone] Referral ID Status Reason Start Date Expiration Date Visits Requ ested Visits Authorized [id number] Closed 07/03/2021 07/03/2022 1 1 Reason for Visit Reason Comments Fall Auth/Cert Specialty Diagnoses / Procedures Referred By Contact Refer red To Contact Diagnoses Pneumothorax Trauma Initial Fracture Rib Single Closed Initial Right Procedures S27.0XXA (ICD-10-CM) - Pneumothorax Trauma Initial S22.31XA (ICD-10-CM) - Fracture Rib Single Closed Initial Right Referral ID Status Reason Start Date Expiration Date Visits Requ ested Visits Authorized [id number] 1 1 Encounter Details Date Type Department Care Team Description 07/01/2021 - Hospital [facility] Darryl Berkowitz M.D., Ph.D. [address] [place] [phone] Pneumothorax Trauma Initial (Primary Dx) ; 07/03[facility] 200 [place] [address] Fracture Rib Single Closed Initial Right ; [facility], Stefano Santiago M.D. [address] [place] [address] Decline Functional Status; [facility], Chronic Ob structive Pulmonary Disease Without Exacerbation (HCC); Seventh Floor Chronic Respiratory Failure With Hypoxia (HCC) [address] [place] [address] Social History Tobacco Use Types Packs/Day Years Used Date Smoking Tobacco: Every Day Cigarettes 0.5 50 Smokeless Tobacco: Never Tobacco Cessation: Ready to Quit: Yes; Loretta cordoba Given: No Alcohol Habits Answer Date Recorded How often do you have a drink containing 4 or more times a w [place] 07/18/2021 alcohol? How many drinks containing alcohol [...] or relatives? How often do you attend alevism or rastafarian More than 4 time s per year 07/18/2021 services? Do you belong to any clubs or organizations Yes 07/18/2021 such as alevism groups, unions, fraternal or athletic groups, or [...] place to sleep or slept in a retirement (including now)? Sex Assigned at Date Recorded [...] PM CDT DISCHARGE SUMMARY BRIEF OVERVIEW Hospital: [facility] Discharge Provider: Bj Bai M.D. Primary Team: [...] Falling Ms. Monik Gallego was transferred to [facility] as a green level traumaafter sustaining a [...] a chest x-ray and evaluation in the [facility]. #5 Chronic Obstructive Pulmonary Disease Without Exacerbation (HCC) #6 Chronic Respiratory Failure With Hypoxia (HCC) #7 Abuse Tobacco Smoking #8 Oxygen Dependent The patient is a current everyday smoker requiring 3L/min nasal cannula oxygen at home for about 3 weeks now after consultation with pharmacist intern. She utilizes this mostly at night. Patient was continued on home oxygen during her hospitalization. Oxygen saturation goal 88-92%. Social work provided home oxygen reconnection. O2 study was performed while in the hospital demonstrating patient requires 1L NC during rest and activity. Patient is encouraged to follow-up with her primary care provider to discuss smoking cessation strategies and pharmacist intern to continue work-up after discharge. #9 Hypertension [...] therapy was consulted to assist with mobilization. Transmitter Engineer In Charge was also consulted to assist with possible [...] Sig Dispensed Refills Start Date End Date simvastatin (ZOCOR) 40 Take 40 mg by mouth at 0 0 04/11/2021 mg tablet bedtime. sodium chloride 1 gram Take 1 g by mouth 2 0 05/12 tablet (two) times a day with meals. acetaminophen (TYLENOL) Take 2 tablets (1,000 0 [...] up with PCP within 1 we ek. sennosides (SENOKOT) Take 1 tablet (8.6 mg [...] CAM negative for acute delirium. 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 DIAGNOSTICS I have personally reviewed labs and CXR. Magnesium improved Sodium improved CBC normal ASSESSMENT / PLAN Ms. Gallego is hospitalized on [facility] Trauma for evaluation and management of: Pneumothorax [...] Please page the Geriatric Consult service at [phone] with any questions or concerns during daytime hours (7am-7pm, including weekends and holidays). For urgent questions after hours, please page [phone]. Bj Bai M.D. - 07/03/2021 10:55 AM [...] nextmonth in her local medical facility in [place], [place]. She would meet criteria for discharge from the hospital today. Her will be arriving to take her home. Given her underlying smoking history and oxygen requirements which were pre-existing, we will see her back in 2 weeks in outpatient Trauma Clinic for followup chest x-ray. Discussed fully with patient. Bj Bai M.D. CT CT Job ID: [id number]/kmp Pedro Luis Slater - 07/03/2021 10:53 AM [...] free to page the Trauma Service at [phone] with any questions in regards to the [...] Document Viewer, or as an image in [employer]. If a re-interpretation or overread is required [...] yes ?? Screening and brief intervention: yes Suture/[place] (location and removal dates): None ASSESSMENT / PLAN Plan 1. Diet: Adult Diet Regular 2. Activity: as tolerated 3. VTE Prophylaxis: Enoxaparin 30mg BID 4. GI Prophylaxis: not indicated 5. Bowel Regimen: Senokot S 6. Anticipated Disposition: Home unknown at this time Destinee Muir D.O. Pager: [phone] Damaris Arreguin APRN, C.N.P., M.S.N. - 07/02/2021 [...] saturations, so she was sent to a pharmacist intern who put her on 3L NC, which [...] free to page the Trauma Service at [phone] with any questions in regards to the plan of care. All cares currently per the Surgical ICU. Please feel free to page the Trauma Service at [phone] if we can be of any assistance. [...] Bj Bai M.D. CT CT Job ID: [id number]/[facility] documented in this encounter H&P Notes Celio Augustin, D.O. - 07/02/2021 2:04 AM CDT [facility] Trauma Surgery REASON FOR ADMISSION GLF with R 5th rib fracture and pneumothorax HISTORY OF PRESENT ILLNESS Monik Gallego is a 70 y.o. woman who presents from the [facility] ED status post a mechanical ground level fall where she landed on her right side. Patient did not hit her head or lose consciousness.Patient is not on any blood thinners. Patient was able to ambulate at the scene. Workup in the emergency department demonstrated a displaced right 5th rib fracture and small pneumothorax. Patient was transferred to the [facility] Emergency Department. CT chest was a [...] nasal cannula. Patient was admitted to the [facility] SICU for pulmonary hygiene. Upon arrival, [...] Everett Augustin D.O. General Surgery SICU Pager [phone] T INTERPRETER documented in this encounter Consult Notes Jocelyne Donald M.D. - 07/02/2021 4:36 PM CDTAssociated Order(s): IP CONSULT TO HOSPITAL INTERNAL MEDICINE SUBJECTIVE CHIEF COMPLAINT Geriatric Trauma Evaluation, fall from standing height HISTORY OF PRESENT ILLNESS Ms. 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 She reports feeling in her usual state of health and was walking out of [place]. She misjudged a sidewalk height, which was an uneven surface, and fell. No presyncope or syncope. She fell onto [place] and her back hit a disabled parking [...] History: General (e.g. 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 DIAGNOSTICS I have personally reviewed labs and imaging. Outside PFTs reviewed: FVC is 1.57 which is 54% of predicted. FEV1 is 1.1 which is 48% of predicted. FEV1/FVC is 70 with a predicted of 78. There is no bronchodilator response (<200 mL and/or <12% improvement) ASSESSMENT / PLAN Ms. Gallego is hospitalized on [facility] Trauma for evaluation and management of: Pneumothorax [...] Anticipated disposition plan: Home Counseling was provided topd-hy-gxdk at bedside regarding the plan of care [...] Please page the Geriatric Consult service at [phone] with any questions or concerns during daytime hours (7am-7pm, including weekends and holidays). For urgentquestions after hours, please page [phone]. Corie Duque L.I.C.S.W., M.S.W. 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 Marital Status / Family / Household Status: Support Systems: Spouse,Children. We have not received permission to contact them. Primary caregiver: Self Accompanied by/Relationship: spouse, son Support System: Spouse,Children Spirituality / Roman Catholic / Culture: not disclosed History: History Are [...] Independent Behavior: Oriented Communication: Can write,Talks,Understands speaking,Understands Russian It is anticipated that the patient will need assistance with None. 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 Denies any other formal supports. Informal supports include the patients spouse and children. FINANCES/INSURANCE Primary insurance: [employer]ARE Secondary insurance: N/A Income [...] home. She denies the need for a correction facility and plans to return home with [...] ago. She reports her oxygen company as [employer]. While advised to use oxygen she notes [...] Durable Medical Equipment - Admitted Since 07/01/2021 [employer] [place] [address], [place] [address] Contact: intake Respiratory Equipment : oxygen Oxygen [...] barriers to the transition of care/plan: none Mariana Torres, M.S.W. 07/02/2021 Sade Hartman P.T., Margarita.P.T. - 07/02/2021 9:27 AM CDT Physical Therapy Inpatient Evaluation/Treatment SUBJECTIVE Patient's Name: Monik Gallego Referring/Attending Provider: Eneida Florian M.D. Medical Diagnosis: Pneumothorax Trauma Initial [S27.0XXA] Fracture Rib Single Closed Initial Right [S22.31XA] Reason for Referral: PT Evaluate and Treat Functional Decline/Deblity Onset Date: 07/01/21 Payor: [employer] / Plan: [facility] [employer] COST SHARE / Product Type: Cost Share [...] Role: Retired Prior Mobility/Functional Transfers Level of Lovilia: Independent Home Equipment Bathroom Equipment: None Home [...] needs met and questions answered. Outcome Measures [facility] Inpatient Short Form: -[facility] Basic Mobility (V.2) How much help from [...] Climbing 3-5 steps with a railing?: None AM-[facility] Basic Mobility (V.2) Raw Score: 24 AM-[facility] Basic Mobility (V.2) Standardized Score: 57.68 Interpretation: Clinicians answer the -[facility] Inpatient Short Form based on observed patient [...] 30 min Sade Hartman P.T., D.P.T. Margoth Garcia O.Keena. - 07/02/2021 9:02 AM CDT Occupational Therapy Acute Hospital Inpatient Evaluation/Treatment SUBJECTIVE Patient's Name: Monik Gallego Referring/Attending Provider: Eneida Florian M.D. Medical Diagnosis: Pneumothorax Trauma Initial [S27.0XXA] Fracture Rib Single Closed Initial Right [S22.31XA] Reason for Referral: Occupational Therapy Evaluation and Treatment Functional Decline/Deblity Onset Date: 07/01/21 Payor: [employer] / Plan: [employer] COST SHARE / Product Type: Cost Share [...] Role: Retired Prior Mobility/Functional Transfers Level of Lovilia: Independent Home Living Type of Home: House [...] AVS Complete - OT: No Outcome Measures AM-[facility] Inpatient Short Form: Putting on and taking [...] Trauma Critical Care and General Surgery consult ([facility]) - Trauma SUBJECTIVE Trauma Critical Care and General Surgery consult ([facility]) - Trauma Referring Provider: Gray Calderón M.D. REASON FOR CONSULT Right sided rib fracture with pneumothorax HISTORY OF PRESENT ILLNESS Ms. Gallego is a 70 y.o. female who was transferred from [facility] Emergency Department for the ongoing management of [...] tiny pneumothorax. The patient was transferred to [facility] for ongoing management. The patient is saturating [...] cannula home oxygen, who was transferred from [facility] Emergency Department for the ongoing management of [...] tiny pneumothorax. The patient was transferred to [facility] for ongoing management. The patient is saturating [...] management 5. TTS on 07/03 Please page [phone] (Trauma) with any questions. Plan and assessment [...] set up; oxygen scripts were sent to [employer]. Discharge education was completed with Monik and her .Further needs or questions are denied at this time. She left the unit with transport to meet her at the doors. Demetira Hart M.S.N., R.N. - 07/02/2021 11:14 PM [...] AM CDT Care of patient transferred to nc by Dr. Calderón. Disposition pending Trauma surgery [...] will discuss situation with our colleagues in [facility]. Final disposition per that service. Final Diagnoses: as of 07/05/21 282 Pneumothorax Trauma Initial Fracture Rib Single Closed Initial Right Jimbo Berkowitz M.D., Ph.D. 07/01/21 [id number] Jimbo Berkowitz M.D., Ph.D. 07/02/21 0001 Jimbo [...] and hypertension. Patientstates that she was in [facility] this morning getting Zepeda with friends when she had a mechanical fall from a slight elevation in the sidewalk. She fell back, and hit a handicap parking sign. She denies hitting her head or losing consciousness. She is taking to outside hospital in [facility] for chest x-ray noted a displaced posterior [...] Falling Ms. Monik Gallego was transferred to [facility] as a green level traumaafter sustaining a [...] a chest x-ray and evaluation in the [facility]. #5 Chronic Obstructive Pulmonary Disease Without Exacerbation (HCC) #6 Chronic Respiratory Failure With Hypoxia (HCC) #7 Abuse Tobacco Smoking #8 Oxygen Dependent The patient is a current everyday smoker requiring 3L/min nasal cannula oxygen at home for about 3 weeks now after consultation with pharmacist intern. She utilizes this mostly at night. Patient was continued on home oxygen during her hospitalization. Oxygen saturation goal 88-92%. Social work provided home oxygen reconnection. O2 study was performed while in the hospital demonstrating patient requires 1L NC during rest and activity. Patient is encouraged to follow-up with her primary care provider to discuss smoking cessation strategies and pharmacist intern to continue work-up after discharge. #9 Hypertension [...] therapy was consulted to assist with mobilization. Transmitter Engineer In Charge was also consulted to assist with possible [...] and Lateral 2 Views (07/18/2021 12:[address] INTERPRETER) Anatomical Region Laterality Modality Chest, Thoracic RST LOS, Thoracic ARZ LOS, Thoracic N/A Digital Radiography FLA LOS Specimen (Source) Anatomical Collection Method Collection Time Re ceived Time Location / / Volume Laterality 07/18/2021 12:[address] INTERPRETER Impressions 07/18/2021 12:[address] INTERPRETER Since 07/03/2021, the previously seen tiny right [...] posterior fifth rib. Narrative 07/18/2021 12:[address] INTERPRETER EXAM: ??DX CHEST AP OR PA AND [...] GING PROCEDURES Magnesium (07/03/2021 9:37 AM CDT) P athologist Signature Magnesium, S 1.7 1.7 - 2.3 07/03/2021 DTL mg/dL 11:11 AM CDT Specimen Anatomical Collection Method Collection Time Receive d Time (Source) Location / / Volume Laterality Blood (Blood, 07/03/2021 9:37 AM 07/03/20 21 Venous) CDT 10:12 AM CDT Shyann Monahan M.D. LAB BLOOD ADD-ON Performing Organization Address City/State/ZIP Code Phon e Number [facility] - [address] [place], [place] [address] [facility] [place] [address] [facility] 200 [facility] (ABNORMAL) Basic Metabolic Panel (07/03/2021 9:37 AM CDT) Analysis Performed At Patho logist Time Signature Potassium, S 5.0 3.6 - 5.2 [...] 07/03/2021 DTL 11:11 AM CDT BUN (Blood Urea 19 6 - 21 07/03/2021 DTL Nitrogen), S mg/dL 11:11 AM CDT Creatinine 1.05 (H) 0.59 - 07/03/2021 DTL 1.04 mg/dL 11:11 AM CDT eGFR-Non 54 (L) >=60 07/03/2021 DTL Black/ mL/min/BSA 11:11 AM CDT Somali Comment: ----ADDITIONAL INFORMATION---- Estimated GFR calculated using [...] Organization Address City/State/ZIP Code Phon e Number [facility] - [address] [place], [place] [address] [facility] [place] [address] [facility] [address] (ABNORMAL) CBC without Differential (07/03/2021 9:37 AM CDT) [facility] gist Method Time Signature Hemoglobin 14.3 11.6 - [...] Organization Address City/State/ZIP Code Phon e Number [facility] - [address] [place], [place] [address] [facility] [place] [address] [facility] 200 [facility] DX Chest Portable 1 View (07/03/2021 5:32 [...] wall and neck. Bibasilar atelectasis. Celeste Lao APRNNLorettaP., M.S.N. IMG DIAGNOSTIC NORAH GING PROCEDURES DX [...] LAB BLOOD NON ADD-ON Performing Organization Address City/State/[facility] Code Phon e Number [facility] - [address] [place], [place] [address] [facility] [place] [address] [facility] [address] [facility] (ABNORMAL) Blood Gas with Coox, Venous (07/02/2021 4:56 AM CDT) [facility] Method Time Signature Venous pO2 57 Not [...] LAB BLOOD NON ADD-ON Performing Organization Address City/State/[facility] Code Phon e Number [facility] - [address] [place], [place] [address] [facility] [place] [address] [facility] [place] [address] [facility] Lactate (07/02/2021 4:54 AM CDT) P athologist Signature Lactate, P 1.2 0.5 - 2.2 07/02/2021 STMA mmol/L 5:14 AM CDT Specimen Anatomical Collection Method Collection Time Receive d Time (Source) Location / / Volume Laterality Blood (Blood, 07/02/2021 4:54 AM 07/02/20 5:03 Venous) CDT AM CDT Ender Lopez M.D. LAB BLOOD NON ADD-ON Performing Organization Address City/State/ZIP Code Phon e Number [facility] - [address] [place] [address] [facility] [place] [address] [facility] 200 [facility] (ABNORMAL) CBC with Differential, Blood (07/02/2021 4:54 [...] M.D. LAB BLOOD ADD-ON Performing Organization Address City/[facility] Code Phon e Number [facility] - [address] [place], [place] [address] [place] [address] [place] [address] Phosphorus Inorganic (07/02/2021 4:54 AM CDT) P athologist Signature Phosphorus 3.6 2.5 - 4.5 07/02/2021 DTL (Inorganic), S mg/dL 5:43 AM CDT Specimen Anatomical Collection Method Collection Time Receive d Time (Source) Location / / Volume Laterality Blood (Blood, 07/02/2021 4:54 AM 07/02/20 5:22 Venous) CDT AM CDT Ender Lopez M.D. LAB BLOOD ADD-ON Performing Organization Address City/State/ZIP Code Phon e Number [facility] - [address] [place], [place] [address] [facility] [place] [address] (ABNORMAL) Magnesium (07/02/2021 4:54 AM CDT) P athologist Signature Magnesium, S 1.2 (L) 1.7 - 2.3 07/02/2021 DTL mg/dL 5:43 AM CDT Specimen Anatomical Collection Method Collection Time Receive d Time (Source) Location / / Volume Laterality Blood (Blood, 07/02/2021 4:54 AM 07/02/20 5:22 Venous) CDT AM CDT Ender Lopez M.D. LAB BLOOD ADD-ON Performing Organization Address City/State/ZIP Code Phon e Number [facility] - [address] [place], [place] [address] [facility] [place] [address] [facility] [address] (ABNORMAL) Basic Metabolic Panel (07/02/2021 4:54 AM CDT) Analysis Performed At Patho logist Time Signature Potassium, S 4.7 3.6 - 5.2 [...] 07/02/2021 DTL 5:43 AM CDT BUN (Blood Urea 20 6 - 21 07/02/2021 DTL Nitrogen), S mg/dL 5:43 AM CDT Creatinine 1.06 (H) 0.59 - 07/02/2021 DTL 1.04 mg/dL 5:43 AM CDT eGFR-Non 53 (L) >=60 07/02/2021 DTL Black/ mL/min/BSA 5:43 AM CDT Somali Comment: ----ADDITIONAL INFORMATION---- Estimated GFR calculated using [...] M.D. LAB BLOOD ADD-ON Performing Organization Address City/[facility]/ZIP Code Phon e Number [facility] - [address] [place], [place] [address] [facility] [place] [address] [facility] [address] [facility] SARS Coronavirus 2, RNA, Rapid POC, V Asymptomatic (07/02/2021 3:19 AM CDT) [facility] Method Time Signature SARS Undetected Undetected 07/02/2021 DTLR Coronavirus-2 3:39 AM CDT , RNA, Rapid POC, V Comment: Negative for SARS-CoV-2. The [employer] COVID-19 test is a molecular topher t for SARS-CoV-2, the virus that causes COVID- 19. A Negative result means that the [employer] COV ID-19 test did not detect SARS-CoV-2 virus in your sample. [employer] COVID-19 test uses the [employer] System. This test has received Emergency Use Authorization (EUA) by the U.S. Food and Drug Administration (FDA) and is used per man acturer instructions. Performance characteristic s were verified by [facility] in a manner consistent with CLIA requirements. Fact sheets for this Emerg ency Use Authorization (EUA) can be found at the following links: Providers: https://[email or web address]/documentation/prov iders.pdf Patients: https://[email or web address]/zack ents.pdf SARS Coronavirus 2, Source Nasopharynx DEFAULT 07/02/2021 3:39 AM CDT DTLR Specimen Anatomical Collection Method Collection Time Receive d Time (Source) Location / / Volume Laterality Varies 07/02/2021 3:19 AM 3:19 (Nasopharynx) CDT AM CDT Ender Lopez M.D. LAB MICROBIOLOGY - GENERAL O RDERABLES Performing Organization Address City/[facility] Phon e Number PERFORMING LABS, REF [facility] [place] [address] INTERFACE Ref Interface 200 [facility] DTLR Performing Labs, [place] [address] Interface [address] [facility] CT Chest with IV Contrast (07/02/2021 12:46 [...] 12/31/2017. Gray Calderón M.D. IMG CT PROCEDURES CT Abdomen Pelvis with IV [...] outsi de CT 12/31/2017. Gray Calderón M.D. [facility] CT PROCEDURES DX Chest AP or PA [...] Gray Calderón M.D. IMG DIAGNOSTIC IMAGING PROCE [facility] Patient Status (07/01/2021 11:06 PM CDT) P [...] Organization Address City/State/ZIP Code Phon e Number [facility] - [address] [place] [address] [place] [address] [facility] 200 [facility] (ABNORMAL) Blood Gas with Coox, Venous (07/01/2021 [...] 11:18 PM CDT Venous Sample Venipunct 07/01/2021 [facility] Site 11:18 PM CDT Specimen Anatomical Collection Method Collection Time Receive d Time (Source) Location / / Volume Laterality Blood (Blood, 07/01/2021 11:06 07/01/2021 Venous) PM CDT 11:12 PM CDT Gray Calderón M.D. LAB BLOOD NON ADD-ON Performing Organization Address City/State/[facility] Code Phon e Number [facility] - [address] [place], [place] [address] [address] [place] [address] Laboratories-[facility] [address] [facility] [place] (ABNORMAL) Basic Metabolic Panel (07/01/2021 11:05 PM CDT) Analysis Performed At Patho logist Time Signature Potassium, P 5.3 (H) 3.6 - [...] 07/01/2021 STMA 11:37 PM CDT BUN (Blood Urea 21 6 - 21 07/01/2021 [facility]MA Nitrogen), P mg/dL 11:37 PM CDT Creatinine 1.11 (H) 0.59 - 07/01/2021 STMA 1.04 mg/dL 11:37 PM CDT eGFR-Black/Afri 58 (L) >=60 07/01/2021 STMA can Somali mL/min/BSA 11:37 PM CDT Comment: ----ADDITIONAL INFORMATION---- Estimated GFR calculated using the 2009 CKD_EPI creatinine equation. eGFR Non-Black/ 50 (L) >=60 mL/min/BSA 07/01/2021 11:37 PM [facility]T [facility] Comment: ----ADDITIONAL INFORMATION---- Estimated GFR calculated using [...] Organization Address City/State/ZIP Code Phon e Number [facility] - [address] [place] [address] [address] [place] [address] [facility] [address] [facility] [place] (ABNORMAL) CBC with Differential, Blood (07/01/2021 11:05 PM CDT) [facility] gist Method Time Signature Hemoglobin 15.1 (H) 11.6 [...] Organization Address City/State/ZIP Code Phon e Number [facility] - [address] [place] [address] [address] [place] [address] [facility] [address] [facility] ECG 12 Lead (07/01/2021 10:39 PM CDT) P athologist Signature Ventricular Rate 59 BPM MUSE ECG/Min AR Interval 202 ms MUSE QRSD Interval 88 ms MUSE QT Interval 394 ms MUSE QTC Interval 390 ms MUSE P [place] 16 degrees MUSE R [place] 46 degrees MUSE T Wave [place] -3 degrees MUSE Specimen Anatomical Collection Method [...] Emilia Erwin R.N.)1947 (Given - Provider: Katy PerdomoSValarie, R.N.) 0207 (Not Given - Provider: Darío Perdomo, R.N. - Reason: Patient/family refused)0737 (Given - Provider: eWndy Jhaveri R.N., [facility])1347 (Given - Provider: Wendy Jhaveri R.N., [facility]) 1,000 mg, oral, Every 6 hours, First dos e (after last modification) on 07/02/21 at 0800, If multiple analgesics ordered for the same pain score sequence of administration: acetaminophen, ibuprofen, tramadol, oxycodone aspirin DR tablet 81 mg 0812 (Given - Provider: Erinn Escalona R.N.) 0831 (Given - Provider: Wendy Jhaveri R.N., [facility]) 81 mg, oral, Daily, First dose on Sat at 0900, Swallow whole. Do NOT crush, chew, or split tablet. enoxaparin injection 30 mg (LOVENOX) 081 2 (Given - Provider: Erinn Escalona R.N.)2009 (Given - Provider: Demetria A Carchedi, M.S.N., R.N.) 0833 (Given - Provider: Wendy Jhaveri R.N., [facility]) 30 mg, subcutaneous, 2 times daily, First dose on 07/02/21 a t 0900 gabapentin capsule 300 mg (NEURONTIN) 08 (Given - Provider: Erinn Escalona R.N.)1401 (Given - Provider: Emilia Erwin R.N.)2007 (Given - Provider: Demetria Hart M.S.N., R.N.) 0831 (Given - Provider: Wendy Jhaveri R.N., [facility])1347 (Given - Provider: Wendy Jhaveri R.N., [facility]) 300 mg, oral, 3 times daily, First dose on 07/02/21 at 0900 lidocaine 5 % 1 patch (LIDODERM) 0313 (M edication Applied - Provider: Tea Oliver R.N. - Comment: right chest)1513 (Medication Removed - Provider: Emilia Erwin R.N.) 0207 (Not Given - Provider: Katy PerdomoS.N., R.N. - Reason: Patient/family refused)0833 (Medication Applied - Provider: Wendy Jhaveri R.N., SUMIT) 1 patch, transdermal, Administer over 12 Hours, Every 24 hours, First dose on 07/02/21 at 0244, (12 hours on-12 hours off) To intact skin 1355 (Due: Medication Removed - Provider: Discharge Provider, Automatic - Comment: Time automatically adjusted from order being discontinued) magnesium sulfate in water IVPB 2 g (COMPLETED) 2024 (New Bag - Provider: Demetria Hart, M.S.N., R.N.) 2 g, intravenous, at 25 mL/hr, Administe r over 120 Minutes, Once, On 07/02/21 at 1930, For 1 dose polyethylene glycol powder packet 17 g (MIRALAX) 0811 (Given - Provider: Erinn Escalona RValarie) 0839 (Given - Provider: Wendy Jhaveri R.N., [facility]) 17 g, oral, Daily, First dose on Sat at 0900, Dissolve in 240 mLs (8 ounces) of water prior to giving. Avoid mixing with starch-based thickened liquids. sennosides tablet 8.6 mg (SENOKOT) 0812 (Given - Provider: Erinn Escalona R.NLoretta) 0839 (Not Given - Provider: Wendy schultz R.N., [facility] - Reason: Patient/family refused) 8.6 mg, oral, Daily, First dose on 07/02/21 at 0900 simvastatin tablet 40 mg (ZOCOR) 2007 (G iven - Provider: Demetria Hart M.S.NLoretta, R.N.) 40 mg, oral, Daily at bedtime, First dose on 07/02/21 at 210 0 sodium chloride (PF) 0.9 % injection 1-100 mL (COMPLETED) 0042 (Given - Provider: Petra Parra RLorettaNLoretta) 1-100 mL, intravenous, Once, On Sat 06/11 11/28 at 0043, For 1 dose, Imaging Protocol Orders sodium chloride tablet 1 g 0832 (Given - Provider: Wendy Jhaveri R.NLoretta, [facility]) 1 g, oral, 2 times daily with meals, First dose on 07/03/21 at 0800 Continuous Medication Order 07/01/2021 07/02/2021 07/03/2021 lactated ringers (CANCELED) 0305 (New Ba g - Provider: Tea Oliver RLorettaNLoretta)0500 (Rate/Dose Verify - Provider: Tea Oliver R.N.)0558 (Stopped - Provider: Tea Oliver R.N.) [...] Group 1) 0528 (Given - Provider: Tea R Oliver, R.N.) 5 mg, oral, Every 4 hours [...] documented as of this encounter Care Teams Academic Affairs Assistant Relationship Specialty Start Date End Date Elsewhere, Pcp PCP - General Family Medicine 07/01/21 documented as of this encounter
--- OUTSIDE RECORDS SUMMARY | 2022-05-09 08:23 | XMS_ITS | Encounter Summary ---
:1950 Author Organization [facility] Address [address] [place] [address] [address] [place] [address] Care Team Providers Name Role Phone Unavailable Primary Care Provider Unavailable Encounter Details Date Type Department Care Team Description 05/26/2021 Documentation Only [facility] Palmer, [address]ROE MD [address] [place] [address] HELIO Russell [phone] (Wo rk) Social History Tobacco Use Types Packs/Day Years Used Date Smoking Tobacco: Never Assessed Sex Assigned at Date Recorded Not on file documented as of this encounter Plan of Treatment Not on filedocumented as of this encounter Visit Diagnoses Not on filedocumented in this encounter
--- NOTE | 2022-05-09 09:00 | CRLHL7_ITS ---
For Patients: As a result of the Century Cures Act, medical imaging exams and procedure reports are released immediately into your electronic medical record. You may view this report before your referring provider. If you have questions, please contact your health care provider. INDICATION: Primary neoplasm of the fallopian tube. TECHNIQUE: CT chest, abdomen and pelvis acquired with 100 cc Isovue 370 IV contrast. COMPARISON: CT chest, abdomen, and pelvis 03/09/2022. FINDINGS: CHEST Right Port-A-Cath with tip near the cavoatrial junction. Lungs and pleura: Lungs are clear. No suspicious nodules or infiltrates. No effusions, thickening, or pneumothorax. Heart and vasculature: Heart size is normal. Calcification in the thoracic aorta. No aortic aneurysm. Dilation of the pulmonary arteries. Lymph node/mediastinum: Interval decrease in the size of hilar and mediastinal lymph nodes. No lymphadenopathy. Chest wall: Normal. Bones: No suspicious bone lesions. ABDOMEN AND PELVIS: Liver: Normal in caliber and attenuation. No masses. Gallbladder and bile ducts: Unremarkable. Pancreas: Unremarkable. Spleen: Normal in caliber. No masses. Adrenal glands: Unremarkable. No masses. Kidneys: Normal in caliber. No suspicious masses. Left renal cyst. No stones or hydronephrosis. GI tract: Diverticulosis without evidence of acute diverticulitis. Normal in caliber and appearance. No sign of mass or inflammation. Vasculature: Aortoiliac atherosclerosis. No aneurysm. Lymph nodes: No lymphadenopathy. Omentum/peritoneum/retroperitoneum/abdominal wall: Predominately fat containing ventral abdominal wall hernia with mild fluid in the hernia sac. Pelvic organs: Uterus is surgically absent. No free fluid or lymphadenopathy. Bones: No suspicious bone lesions. Multilevel degenerative disc disease. IMPRESSION: 1. Interval decrease in the size of mediastinal and hilar lymph nodes compared to prior exam. Resolution of pleural effusions and consolidation. 2. No evidence of metastatic disease in the chest, abdomen, or pelvis. 3. Central pulmonary artery enlargement. 4. Ventral abdominal wall hernia containing fat and minimal fluid. Please note that all CT scans at this facility use dose modulation, iterative reconstruction, and/or weight-based dosing when appropriate to reduce radiation dose to as low as reasonably achievable. Dictated by Mukesh Coates MD @ 05/09/2022 11:33:51 AM (Electronically Signed)
== END 2022-05-09 08:21 | disposition home or self-care (01) ==
LOC: CT 08:21
PROVIDERS: PCP Family Medicine; Visit Provider Physician Assistant
DX: N83.8 Other noninflammatory disorders of ovary, fallopian tube and broad ligament (principal); R59.9 Enlarged lymph nodes, unspecified; K43.9 Ventral hernia without obstruction or gangrene; I77.89 Other specified disorders of arteries and arterioles; I28.9 Disease of pulmonary vessels, unspecified
CPT/HCPCS: 36415; 36591; 71260; 74177; 82565; Q9967

== ENCOUNTER 2022-10-16 10:41 | Outpatient (CLI) | payer MEDICARE, BC, SELFPAY ==
[2022-10-16 13:35] LABS: Chloride* 94 mmol/L (96-114); Potassium* 4.8 mmol/L (3.6-5.1); Sodium* 135 mmol/L (135-149)
[2022-10-16 13:38] LABS: Carbon Dioxide* 31 mmol/L (20-32); Creatinine* 1.3 mg/dL (0.5-1.5); Estimated Glomerular Filt Rate 44 ml/min
[2022-10-16 13:39] LABS: Blood Urea Nitrogen* 31 mg/dL (7-30); Calcium* 9.5 mg/dL (8.4-10.6); Glucose* 93 mg/dL (60-115)
== END 2022-10-16 10:42 | disposition home or self-care (01) ==
PROVIDERS: PCP Family Medicine; Visit Provider Family Medicine
DX: Z01.818 Encounter for other preprocedural examination (principal)
CPT/HCPCS: 80048

== ENCOUNTER 2022-10-25 11:25 | Inpatient (IN) | payer MEDICARE, BC, SELFPAY ==
[2022-10-25] VITALS (15 sets, daily range): BP systolic 99–137; BP diastolic 61–72; PULSE 60–83; RESP 20–24; TEMP 36.1–37; O2SAT 84–92; BMI 36.6; BMI 37.8
--- NOTE | 2022-10-25 11:48 | ED.SOB ---
HPI - SOB/Dyspnea General Time Seen by Provider: 11:48 Date Seen: 10/25/22 Chief Complaint: Shortness of Breath/Dyspnea Stated Complaint: Low O2, congestion Time Seen by Provider: 10/25/22 11:48 Source: patient and other Mode of arrival: wheelchair Limitations: no limitations History of Present Illness HPI Narrative: Dorothea is a very pleasant 72-year-old female with a history of COPD, hypertension, CHF who comes to the emergency room for evaluation regarding hypoxia. Patient had initially presented to same-day surgery for cataract surgery but was noted at that time by the anesthesiologist that her O2 sats were at 80% on room air. They did try oxygen but were unable to increase that value very much and thus she was sent to the emergency room. Dorothea states that she started feeling not very well over this weekend. She describes an increased cough and a runny nose. She denies any chest pain or fever during that time. She notes that she does use oxygen at night with her CPAP and during the day if she is excessively active will wear her oxygen on and off. She thinks that maybe she has worn at a little more than usual over the past couple days. She states her normal oxygen levels run 91-92% on room air. She denies any chest pain or any unusual weight gain or edema. Again she has not had fever or chills. She does not know of any ill contacts. She is fully vaccinated against COVID and has not had COVID to date. Related Data Home Medications Medication Instructions Recorded Confirmed aspirin 81 mg capsule 81 mg PO DAILY 03/09/22 10/25/22 sodium chloride 1 gram tablet 1,000 mg PO BID 03/09/22 10/25/22 cholecalciferol (vitamin D3) 10 10 mcg PO DAILY 07/20/22 10/25/22 mcg (400 unit) capsule atorvastatin 20 mg tablet 20 mg PO HS 10/25/22 10/25/22 furosemide 40 mg tablet 40 mg PO DAILY PRN weight gain 10/25/22 10/25/22 Previous Rx's Medication Instructions Recorded amlodipine 10 mg tablet 10 mg PO DAILY #90 tabs 04/11/22 atenolol 50 mg tablet 50 mg PO BID #180 tabs 04/11/22 gabapentin 300 mg capsule 600 mg PO BID #180 caps 04/11/22 losartan 25 mg tablet 25 mg PO DAILY #90 tabs 04/11/22 Allergies Allergy/AdvReac Type Severity Reaction Status Date / Time duloxetine Allergy Mild itchy Verified 07/20/22 14:28 Review of Systems Status of ROS: Reports: 10 or more systems reviewed and unremarkable except as noted in History and below Const: Denies: fever, chills or fatigue Eyes: Denies: change in vision ENMT: Denies: throat pain, neck pain, throat swelling or difficulty swallowing Cardio: Reports: shortness of breath with exertion (Chronic); Denies: chest pain, palpitations, edema, swelling of feet/ankles or lightheadedness Resp: Reports: shortness of breath (Chronic) GI: Denies: abdominal pain, nausea, vomiting, diarrhea or difficulty swallowing : Denies: painful urination or urinary frequency Musculo: Denies: neck pain Integ/Breast: Denies: rash Neuro: Denies: headache Endo: Denies: fatigue Allergy/Immuno: Denies: throat swelling PFSH PFSH Medical History (Updated 10/25/22 @ 17:28 by Edith Davenport MD) BRCA2 positive Chemotherapy-induced nausea and vomiting Chemotherapy-induced neuropathy Chronic hyponatremia CO2 retention Contusion of back Fracture of rib of right side Health care directive on file Hyperlipidemia (05/05/11) Hypertension (05/05/11) Ischemic colitis Malignant neoplasm of ovary (2018) Obesity (05/05/11) Peripheral neuropathy Pneumothorax Polyp of colon (05/05/11) Toenail fungus Surgical History (Updated 10/25/22 @ 13:52 by Edith Davenport MD) History of colonoscopy History of hysterectomy Status post dissection of cervical lymph nodes Family History Father Coronary artery disease High blood pressure Mother Coronary artery disease Breast cancer Social History (Updated 10/25/22 @ 17:29 by Edith Davenport MD) Narrative: , lives with in [place]. Two adult children. 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 Alcohol use 4-5 drinks per week, no history of ETOH withdrawal. No recreational drug use. 1/2ppd smoker Highest level of school completed/degree received: some college, no degree Smoking Status: Current every day smoker What tobacco products do you use: cigarettes Smoking packs per day: 0.5 Smoking cigarettes per day: 10.0 Years smoked: 50 Smoking pack-years: 25.00 Do you use any of these nicotine containing products: None Second hand tobacco smoke exposure: No How often do you have a drink containing alcohol: 2-4 times a month How many standard drinks containing alcohol do you have on a typical day: 1 or 2 How often do you have six or more drinks on one occasion: Never AUDIT-C Alcohol total score: 2 Non-prescribed substance use: denies use Caffeine: Yes (1 cup coffee per day, diet coke) Little interest or pleasure in doing things: not at all Feeling down, depressed, or hopeless: not at all service: No Exam Narrative: Exam Narrative: Patient is alert and oriented. She seems fatigued to me. Eyes are clear. Oral cavity with moist mucous membranes. Face is symmetrical. Heart with regular rate and rhythm. Lungs are with crackles bilaterally. She can be heard coughing with a very congested sound. Abdomen soft nontender. Lower extremities with scant peripheral demon. Her feet are warm. Pedal pulses are intact. Const: Vital Signs, click to edit/add: Vital Signs - 24 hr 10/25/22 11:39 10/25/22 12:04 10/25/22 12:15 Temperature 97.0 F L Pulse Rate 64 64 Pulse Rate [Left A pical] Pulse Rate [Right Pulse Oximeter] 83 Respiratory Rate 24 Blood Pressure Blood Pressure [Le ft Arm] Blood Pressure [Ri ght Upper Arm] 99/61 Pulse Oximetry 84 L 92 90 Oxygen Delivery Me thod Room Air Oxygen Flow Rate Fraction of Inspir ed Oxygen 10/25/22 12:40 10/25/22 12:41 10/25/22 12:46 Temperature Pulse Rate 65 63 Pulse Rate [Left A pical] Pulse Rate [Right Pulse Oximeter] Respiratory Rate Blood Pressure 132/72 Blood Pressure [Le ft Arm] Blood Pressure [Ri ght Upper Arm] Pulse Oximetry 91 90 92 Oxygen Delivery Me thod Nasal Cannula Oxygen Flow Rate 3.5 Fraction of Inspir ed Oxygen 10/25/22 12:42 10/25/22 12:45 10/25/22 13:00 Temperature Pulse Rate 62 63 60 Pulse Rate [Left A pical] Pulse Rate [Right Pulse Oximeter] Respiratory Rate Blood Pressure Blood Pressure [Le ft Arm] Blood Pressure [Ri ght Upper Arm] Pulse Oximetry 91 92 91 Oxygen Delivery Me thod Oxygen Flow Rate Fraction of Inspir ed Oxygen 10/25/22 13:44 10/25/22 14:40 10/25/22 14:06 Temperature 98.3 F Pulse Rate Pulse Rate [Left A pical] 65 Pulse Rate [Right Pulse Oximeter] Respiratory Rate Blood Pressure Blood Pressure [Le ft Arm] 137/71 Blood Pressure [Ri ght Upper Arm] Pulse Oximetry 90 90 Oxygen Delivery Me thod Nasal Cannula Nasal Cannula Nasal Cannula Oxygen Flow Rate 4 Fraction of Inspir ed Oxygen 4 10/25/22 14:55 10/25/22 14:55 10/25/22 15:00 Temperature Pulse Rate 75 Pulse Rate [Left A pical] Pulse Rate [Right Pulse Oximeter] Respiratory Rate 22 Blood Pressure Blood Pressure [Le ft Arm] Blood Pressure [Ri ght Upper Arm] Pulse Oximetry 90 90 Oxygen Delivery Me thod Nasal Cannula Nasal Cannula Oxygen Flow Rate 4 4 Fraction of Inspir ed Oxygen 10/25/22 15:00 Temperature Pulse Rate Pulse Rate [Left A pical] Pulse Rate [Right Pulse Oximeter] Respiratory Rate 22 Blood Pressure Blood Pressure [Le ft Arm] Blood Pressure [Ri ght Upper Arm] Pulse Oximetry Oxygen Delivery Me thod Oxygen Flow Rate Fraction of Inspir ed Oxygen Course Course Hospital Course: Differential diagnosis includes but is not limited to COPD exacerbation, viral infection, COVID, pneumonia, CHF. Patient was placed on oxygen here in the ED and oxygen levels are at 91% right now. Will check EKG, troponin, chest x-ray, CBC, comprehensive panel, proBNP as well as urinalysis. The patient will placed on oximetry and threat monitoring analyst. Respiratory therapy consult is ordered. Reevaluation(s) Reevaluation #1: Patient is noted to have improvement of her fatigued once on oxygen. I did have concern regarding CO2 retention and therefore did order ABG which does confirm elevated CO2 at 64. I did discuss the use of BiPAP with patient as well as the hospitalist. Patient wishes to eat 1st and we will order her a tray. Vital Signs Vital signs: Initial Vital Signs Temperature 97.0 F L 10/25/22 11:39 Temperature Source Temporal Artery Scan 10/25/22 11:39 Pulse Rate 83 10/25/22 11:39 Respiratory Rate 24 10/25/22 11:39 Blood Pressure 99/61 10/25/22 11:39 Blood Pressure Mean 73 10/25/22 11:39 Blood Pressure Position Sitting 10/25/22 11:39 Pulse Oximetry 84 L 10/25/22 11:39 Oxygen Delivery Method 10/25/22 11:39 Vital Signs Temperature 97.0 F L 10/25/22 11:39 Pulse Rate 83 10/25/22 11:39 Respiratory Rate 24 10/25/22 11:39 Blood Pressure 99/61 10/25/22 11:39 Pulse Oximetry 84 L 10/25/22 11:39 Oxygen Delivery Method 10/25/22 11:39 Temperature 98.4 F 10/25/22 19:00 Pulse Rate 71 10/25/22 19:00 Respiratory Rate 20 10/25/22 19:00 Blood Pressure 124/67 10/25/22 19:00 Pulse Oximetry 91 10/25/22 19:00 Oxygen Delivery Method 10/25/22 19:00 Oxygen Flow Rate 3 10/25/22 19:00 Fraction of Inspired Oxygen 35 10/25/22 17:00 MDM - SOB/Dyspnea MDM Narrative Medical decision making narrative: 1. COPD exacerbation-no evidence of pneumonia on x-ray, white count reassuring. Acute on chronic acidosis noted on ABG. Solu-Medrol 60 mg IV given. I have held off on an antibiotic until discussion with hospitalist. DuoNeb ordered as well. Respiratory therapy consult pending. 2. History of CHF-no evidence of fluid overload. ProBNP reassuring. 3. Disposition- admit to the floor under the care of Dr. Davenport. Dictation done with voice recognition, and as a result, wrong word or [id number] substitutions may have occurred.? There may be errors in the script that have gone undetected.? Please consider this when interpreting information found in this chart. Medical Records Attestation: I reviewed the patient's medical records. Lab Data Attestation: I reviewed the patient's lab results. Labs: Lab Results 10/25/22 10/25/22 10/25/22 Range/Units 11:53 11:57 12:12 WBC 8.42 (4.50-11.00) K/uL RBC 4.44 (4.00-5.20) m/uL Hgb 14.2 (12.0-16.0) gm/dL Hct 44.5 (33.0-51.0) % MCV 100 (80-100) fL MCH 32 (26-34) pg MCHC 32 (32-36) gm/dL RDW Coeff of Ezra 12.1 (11.5-15.5) % Plt Count 200 (140-440) K/uL Neut % (Auto) 69.9 (42.0-72.0) % Lymph % (Auto) 16.9 L (20-44) % [place] % (Auto) 8.6 (0.0-11.0) % Eos % (Auto) 3.8 (0.0-7.0) % Baso % (Auto) 0.4 (0.0-3.0) % Neut # (Auto) 5.90 (1.7-7.0) K/uL Lymph # (Auto) 1.40 (0.90-2.90) K/uL [place] # (Auto) 0.70 (0.00-0.90) K/UL Eos # (Auto) 0.32 (0.00-0.50) K/uL Baso # (Auto) 0.03 (0.00-0.30) K/uL ABG pH (7.35-7.45) ABG pCO2 (35-45) mmHG ABG pO2 (80-105) mmHG ABG HCO3 (21-28) mmol/L ABG Total CO2 (21-30) mmol/l ABG O2 Saturation (92-100) % ABG Base Excess (-3.0-3.0) mmol/L Carboxyhemoglobin (0.0-5.0) % Sodium (135-149) mmol/L Potassium (3.6-5.1) mmol/L Chloride (96-114) mmol/L Carbon Dioxide (20-32) mmol/L BUN (7-30) mg/dL Creatinine (0.5-1.5) mg/dL Estimated Creat Clear Estimated GFR ml/min Glucose (60-115) mg/dL Calcium (8.4-10.6) mg/dL Total Bilirubin (0.1-1.5) mg/dL AST (12-35) U/L ALT (4-35) U/L Alkaline Phosphatase (40-150) U/L NT-Pro-B Natriuret Pep pg/mL Total Protein (6.0-8.3) g/dL Albumin (3.3-5.0) g/dL Procalcitonin (<0.50) ng/mL Urine Color (Yellow) Urine Appearance (Clear) Urine pH (5.0-8.5) Ur Specific [place] (1.000-1.030) Urine Protein (Negative) Urine Glucose (UA) (Negative) Urine Ketones (Negative) Urine Blood (Negative) Urine Nitrite (Negative) Urine Bilirubin (Negative) Urine Urobilinogen (0.2-1.0) Ur Leukocyte Esterase (Negative) Urine RBC (0-2) Urine WBC (0-5) Ur Squamous Epith Cells (None-Few) Urine Bacteria (None) Urine Mucus (None) SARS-CoV-2 (PCR) Negative SARS-CoV-2 (Negative) Influenza Type A (PCR) Negative PCR FLU A (Negative) Influenza Type B (PCR) Negative PCR FLU B (Negative) RSV (PCR) Negative PCR RSV (Negative) POC Troponin I 0.00 L (0.01-0.04) ng/ml 10/25/22 10/25/22 10/25/22 Range/Units 12:12 12:35 12:49 WBC (4.50-11.00) K/uL RBC (4.00-5.20) m/uL Hgb (12.0-16.0) gm/dL Hct (33.0-51.0) % MCV (80-100) fL MCH (26-34) pg MCHC (32-36) gm/dL RDW Coeff of Ezra (11.5-15.5) % Plt Count (140-440) K/uL Neut % (Auto) (42.0-72.0) % Lymph % (Auto) (20-44) % [place] % (Auto) (0.0-11.0) % Eos % (Auto) (0.0-7.0) % Baso % (Auto) (0.0-3.0) % Neut # (Auto) (1.7-7.0) K/uL Lymph # (Auto) (0.90-2.90) K/uL [place] # (Auto) (0.00-0.90) K/UL Eos # (Auto) (0.00-0.50) K/uL Baso # (Auto) (0.00-0.30) K/uL ABG pH 7.32 L (7.35-7.45) ABG pCO2 64 H* (35-45) mmHG ABG pO2 63.4 L (80-105) mmHG ABG HCO3 33 H (21-28) mmol/L ABG Total CO2 30 (21-30) mmol/l ABG O2 Saturation 91 L (92-100) % ABG Base Excess 4.7 H (-3.0-3.0) mmol/L Carboxyhemoglobin 3.4 (0.0-5.0) % Sodium 133 L (135-149) mmol/L Potassium 4.8 (3.6-5.1) mmol/L Chloride 92 L (96-114) mmol/L Carbon Dioxide 33 H (20-32) mmol/L BUN 26 (7-30) mg/dL Creatinine 1.4 (0.5-1.5) mg/dL Estimated Creat Clear 32.20 Estimated GFR 40 ml/min Glucose 103 (60-115) mg/dL Calcium 8.9 (8.4-10.6) mg/dL Total Bilirubin 0.6 (0.1-1.5) mg/dL AST 24 (12-35) U/L ALT 18 (4-35) U/L Alkaline Phosphatase 70 (40-150) U/L NT-Pro-B Natriuret Pep 315 pg/mL Total Protein 7.5 (6.0-8.3) g/dL Albumin 4.2 (3.3-5.0) g/dL Procalcitonin 0.05 (<0.50) ng/mL Urine Color Yellow (Yellow) Urine Appearance Clear (Clear) Urine pH 5.5 (5.0-8.5) Ur Specific [place] 1.025 (1.000-1.030) Urine Protein Negative (Negative) Urine Glucose (UA) Negative (Negative) Urine Ketones Negative (Negative) Urine Blood Negative (Negative) Urine Nitrite Negative (Negative) Urine Bilirubin Negative (Negative) Urine Urobilinogen 0.2 (0.2-1.0) Ur Leukocyte Esterase Negative (Negative) Urine RBC 0-2 (0-2) Urine WBC 0-2 (0-5) Ur Squamous Epith Cells Moderate A (None-Few) Urine Bacteria Moderate A (None) Urine Mucus Few A (None) SARS-CoV-2 (PCR) (Negative) Influenza Type A (PCR) (Negative) Influenza Type B (PCR) (Negative) RSV (PCR) (Negative) POC Troponin I (0.01-0.04) ng/ml ABG Data ABG results: PH 7.32 with elevated pCO2 at 64. Attestation: I personally reviewed and interpreted this ABG as follows: Interpretation: Respiratory acidosis. Imaging Data Chest x-ray: Attestation: I have reviewed the pertinent imaging results. My impression: Increased lung markings but no obvious infiltrate. Radiologist's impression: Cardiovascular and mediastinum:? Cardiomediastinal silhouette is borderline enlarged. Calcific atherosclerosis of the aorta. Right-sided Port-A-Cath with distal tip at the superior cavoatrial junction. Lungs and pleural spaces:? Mild hypoinflation of the lungs. There are bibasilar opacities likely related to atelectasis. No dense consolidations. No evidence of pleural effusion.? No pneumothorax identified.? Bones and soft tissues:? Mild diffuse demineralization of the visualized bones and degenerative changes..? IMPRESSION: No acute cardiopulmonary process identified. Hypoinflation the lungs and probable mild bibasilar atelectasis. ECG Data Attestation: I personally reviewed and interpreted this ECG as follows: ECG interpretation date: 10/25/22 Interpretation: EKG by my read shows sinus rhythm at a rate of 60. No acute ST or T-wave changes are noted. QT normal at 418. Possible previous septal infarct. Critical Care Time Critical Care Time Critical Care Time: Yes Attestation: The patient required my highest level preparedness to intervene emergently and I personally spent this critical care time directly and personally managing the patient. This critical care time included: Obtaining a history; Examining the patient; Pulse oximetry; Ordering and reviewing of studies; Arranging urgent treatment with development of a management plan; Evaluation of patients response to treatment; Frequent reassessment discussions with other providers. This critical care time was performed to assess and manage the high probability of imminent life-threatening deterioration that could result in multiorgan failure. It was exclusive of separate billable procedures and treating other patients and teaching time. Total Critical Care Time in Minutes: 35 Discharge Plan Discharge Clinical Impression: Acute on chronic respiratory acidosis, Acute exacerbation of chronic obstructive pulmonary disease Patient Disposition: Admitted As Inpatient Condition: Improved
--- NOTE | 2022-10-25 11:57 | CRLHL7_ITS ---
For Patients: As a result of the Century Cures Act, medical imaging exams and procedure reports are released immediately into your electronic medical record. You may view this report before your referring provider. If you have questions, please contact your health care provider. INDICATION: Hypoxia. TECHNIQUE: Chest 1 view. COMPARISON: None. FINDINGS: Cardiovascular and mediastinum: Cardiomediastinal silhouette is borderline enlarged. Calcific atherosclerosis of the aorta. Right-sided Port-A-Cath with distal tip at the superior cavoatrial junction. Lungs and pleural spaces: Mild hypoinflation of the lungs. There are bibasilar opacities likely related to atelectasis. No dense consolidations. No evidence of pleural effusion. No pneumothorax identified. Bones and soft tissues: Mild diffuse demineralization of the visualized bones and degenerative changes.. IMPRESSION: No acute cardiopulmonary process identified. Hypoinflation the lungs and probable mild bibasilar atelectasis. Dictated by Marky Delgadillo MD @ 10/25/2022 12:54:09 PM (Electronically Signed)
[2022-10-25 12:36] LABS: PCR FLU A Negative PCR FLU A (Negative); PCR FLU B Negative PCR FLU B (Negative); PCR RSV Negative PCR RSV (Negative)
[2022-10-25 12:38] LABS: SARS PCR* Negative SARS-CoV-2 (Negative)
[2022-10-25 12:44] LABS: Basophils Absolute Auto 0.03 K/uL (0.00-0.30); Basophils Percent Auto 0.4 % (0.0-3.0); Eosinophils Absolute Auto 0.32 K/uL (0.00-0.50); Eosinophils Percent Auto 3.8 % (0.0-7.0); Hematocrit 44.5 % (33.0-51.0); Hemoglobin* 14.2 gm/dL (12.0-16.0); Immature Granulocytes Abs Auto 0.03 K/uL (0.00-0.30); Immature Granulocytes Pct Auto 0.4 %; Lymphocytes Percent Auto 16.9 % (20-44); Mean Corpuscular HGB Conc 32 gm/dL (32-36); Mean Corpuscular Hemoglobin 32 pg (26-34); Mean Corpuscular Volume 100 fL (80-100); Monocytes Percent Auto 8.6 % (0.0-11.0); Neutrophils Percent Auto 69.9 % (42.0-72.0); Platelet Count* 200 K/uL (140-440); RDW Coefficient of Variation % 12.1 % (11.5-15.5); Red Blood Count 4.44 m/uL (4.00-5.20); White Blood Count* 8.42 K/uL (4.50-11.00)
[2022-10-25 12:45] LABS: Appearance Urine Clear (Clear); Bilirubin Urine Negative (Negative); Blood Urine Negative (Negative); Color Urine Yellow (Yellow); Glucose Urine Negative (Negative); Ketones Urine Negative (Negative); Leukocyte Esterase Urine Negative (Negative); Nitrite Urine Negative (Negative); Protein Urine Negative (Negative); Specific Gravity Urine 1.025 (1.000-1.030); Urobilinogen Urine 0.2 (0.2-1.0); pH Urine 5.5 (5.0-8.5)
[2022-10-25 12:47] LABS: Slide Review Reflex No
[2022-10-25 12:55] LABS: Chloride* 92 mmol/L (96-114)
[2022-10-25 12:56] LABS: Albumin* 4.2 g/dL (3.3-5.0); Potassium* 4.8 mmol/L (3.6-5.1); Sodium* 133 mmol/L (135-149)
[2022-10-25 12:58] LABS: Bilirubin Total* 0.6 mg/dL (0.1-1.5); Carbon Dioxide* 33 mmol/L (20-32); Creatinine* 1.4 mg/dL (0.5-1.5); Estimated Glomerular Filt Rate 40 ml/min
[2022-10-25 12:59] LABS: Alanine Aminotransferase* 18 U/L (4-35); Alkaline Phosphatase* 70 U/L (40-150); Aspartate Amino Transferase* 24 U/L (12-35); Blood Urea Nitrogen* 26 mg/dL (7-30); Calcium* 8.9 mg/dL (8.4-10.6); Glucose* 103 mg/dL (60-115); Total Protein* 7.5 g/dL (6.0-8.3)
[2022-10-25 13:08] LABS: RBC Urine 0-2 (0-2); WBC Urine 0-2 (0-5)
[2022-10-25 13:08] LABS: NT Pro B Type NatriureticPept* 315 pg/mL
[2022-10-25 13:09] LABS: Bacteria Urine Moderate; Mucus Urine Few; Squamous Epithelial Cell Urine Moderate (None-Few)
[2022-10-25 13:12] LABS: Base Excess ABG 4.7 mmol/L (-3.0-3.0); Carboxyhemoglobin* 3.4 % (0.0-5.0); HCO3 ABG 33 mmol/L (21-28); Oxygen Saturation ABG 91 % (92-100); PO2 ABG 63.4 mmHG (80-105); TCO2 ABG 30 mmol/l (21-30); pH ABG 7.32 (7.35-7.45)
[2022-10-25 13:14] LABS: ABG PCO2 64 mmHG (35-45)
--- NOTE | 2022-10-25 13:14 | ED.NURSE ---
Critical received from lab: ABG PCO2 64, handed to at 1311
[2022-10-25] MEDS: METHYLPREDNISOLONE SOD SUCC 62.5 MG/ML (125) 60 MG IVP (13:18)
[2022-10-25] MEDS: IPRAT-ALBUT 0.5-2.5 MG/3 ML NEB 1 NEB IH (13:19)
--- NOTE | 2022-10-25 13:52 | PM.IMHP1 ---
Hospitalist- H&P: HPI History of Present Illness Date Seen: 10/25/22 Chief complaint: Low O2, congestion Narrative: Monik Gallego is a 72 year old female with a history of MONIKA (on CPAP), mild airflow obstruction on spirometry, and pulmonary HTN, who presented to the hospital today for an elective cataract procedure. In preoperative evaluation, she was found to have O2 saturations of 80% on RA. Patient did not improve with supplemental oxygen, so preoperative team transferred Monik to the ED.? She notes URI symptoms over the past week; has had a cough with intermittent sputum (no hemoptysis), dyspnea on exertion. No fever. No sick contacts. Has not been wearing her supplemental oxygen (per Pulmonology, should be wearing with activity), using her CPAP at night as directed. ER Course and findings: - hypoxic on arrival, saturations improved to 91% on 3.5L of supplemental oxygen - PCO2 of 64 - treated with a DuoNeb and Solumedrol IV x1 Monik's past medical history updated below. She sees Dr. Shaw of Pulmonology and Dr. Alcantara of Cardiology; sees [id number] for her ovarian cancer (2018). PCP is Dr. Whalen. Review of Systems Status of ROS: Reports: 10 or more systems reviewed and unremarkable except as noted in History and below Narrative: - intermittently lightheaded during current illness, no syncope - specifically denies: LE edema, skin concerns or rashes, GI or concerns, dysphagia PFSH PFSH Medical History (Updated 10/25/22 @ 17:28 by Edith Davenport MD) BRCA2 positive Chemotherapy-induced nausea and vomiting Chemotherapy-induced neuropathy Chronic hyponatremia CO2 retention Contusion of back Fracture of rib of right side Health care directive on file Hyperlipidemia (05/05/11) Hypertension (05/05/11) Ischemic colitis Malignant neoplasm of ovary (2018) Obesity (05/05/11) Peripheral neuropathy Pneumothorax Polyp of colon (05/05/11) Toenail fungus Surgical History (Updated 10/25/22 @ 13:52 by Edith Davenport MD) History of colonoscopy History of hysterectomy Status post dissection of cervical lymph nodes Family History Father Coronary artery disease High blood pressure Mother Coronary artery disease Breast cancer Social History (Updated 10/25/22 @ 17:29 by Edith Davenport MD) Narrative: , lives with in [place]. Two adult children. 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 Alcohol use 4-5 drinks per week, no history of ETOH withdrawal. No recreational drug use. 1/2ppd smoker Highest level of school completed/degree received: some college, no degree Smoking Status: Current every day smoker What tobacco products do you use: cigarettes Smoking packs per day: 0.5 Smoking cigarettes per day: 10.0 Years smoked: 50 Smoking pack-years: 25.00 Do you use any of these nicotine containing products: None Second hand tobacco smoke exposure: No How often do you have a drink containing alcohol: 2-4 times a month How many standard drinks containing alcohol do you have on a typical day: 1 or 2 How often do you have six or more drinks on one occasion: Never AUDIT-C Alcohol total score: 2 Non-prescribed substance use: denies use Caffeine: Yes (1 cup coffee per day, diet coke) Little interest or pleasure in doing things: not at all Feeling down, depressed, or hopeless: not at all service: No Meds Home Medications and Allergies Home Medications Medication Instructions Recorded Confirmed Type aspirin 81 mg capsule 81 mg PO DAILY 03/09/22 10/25/22 History sodium chloride 1 gram tablet 1,000 mg PO BID 03/09/22 10/25/22 History cholecalciferol (vitamin D3) 10 10 mcg PO DAILY 07/20/22 10/25/22 History mcg (400 unit) capsule atorvastatin 20 mg tablet 20 mg PO HS 10/25/22 10/25/22 History furosemide 40 mg tablet 40 mg PO DAILY PRN weight gain 10/25/22 10/25/22 History Home Medication Comments: - list above is not complete, also on Atenolol, Gabapentin, and Losartan Allergies Allergy/AdvReac Type Severity Reaction Status Date / Time duloxetine Allergy Mild itchy Verified 07/20/22 14:28 Exam Narrative: Exam Narrative: GEN: Alert and oriented, sitting comfortably in bed HEENT: EOMIs bilaterally, no scleral icterus CV: RRR, No concerning murmurs, rubs, or gallops R: Decreased air movement bilaterally, rhonchi throughout Ext: wwp, no concerning edema Skin: No concerning skin lesions or rashes on exposed skin Neuro: No focal deficits, no resting tremor Psych: Appropriate Const: Vital Signs, click to edit/add: Vital Signs - 24 hr 10/25/22 11:39 10/25/22 12:04 10/25/22 12:15 Temperature 97.0 F L Pulse Rate 64 64 Pulse Rate [Right Pulse Oximeter] 83 Respiratory Rate 24 Blood Pressure Blood Pressure [Ri ght Upper Arm] 99/61 Pulse Oximetry 84 L 92 90 Oxygen Delivery Me thod Room Air Oxygen Flow Rate Fraction of Inspir ed Oxygen 10/25/22 12:40 10/25/22 12:41 10/25/22 12:46 Temperature Pulse Rate 65 63 Pulse Rate [Right Pulse Oximeter] Respiratory Rate Blood Pressure 132/72 Blood Pressure [Ri ght Upper Arm] Pulse Oximetry 91 90 92 Oxygen Delivery Me thod Nasal Cannula Oxygen Flow Rate 3.5 Fraction of Inspir ed Oxygen 10/25/22 12:42 10/25/22 12:45 10/25/22 13:00 Temperature Pulse Rate 62 63 60 Pulse Rate [Right Pulse Oximeter] Respiratory Rate Blood Pressure Blood Pressure [Ri ght Upper Arm] Pulse Oximetry 91 92 91 Oxygen Delivery Me thod Oxygen Flow Rate Fraction of Inspir ed Oxygen 10/25/22 13:44 Temperature Pulse Rate Pulse Rate [Right Pulse Oximeter] Respiratory Rate Blood Pressure Blood Pressure [Ri ght Upper Arm] Pulse Oximetry Oxygen Delivery Me thod Nasal Cannula Oxygen Flow Rate Fraction of Inspir ed Oxygen 4 Hospitalist - H&P: Result Labs Labs: Short CBC 10/25/22 Range/Units 12:12 WBC 8.42 (4.50-11.00) K/uL Hgb 14.2 (12.0-16.0) gm/dL Hct 44.5 (33.0-51.0) % Plt Count 200 (140-440) K/uL BMP 10/25/22 12:12 Sodium 133 L Potassium 4.8 Chloride 92 L Carbon Dioxide 33 H BUN 26 Creatinine 1.4 Glucose 103 Calcium 8.9 Liver Function 10/25/22 Range/Units 12:12 Total Bilirubin 0.6 (0.1-1.5) mg/dL AST 24 (12-35) U/L ALT 18 (4-35) U/L Alkaline Phosphatase 70 (40-150) U/L Albumin 4.2 (3.3-5.0) g/dL Urine 10/25/22 Range/Units 12:35 Urine Color Yellow (Yellow) Urine Appearance Clear (Clear) Urine pH 5.5 (5.0-8.5) Ur Specific [place] 1.025 (1.000-1.030) Urine Protein Negative (Negative) Urine Glucose (UA) Negative (Negative) Assessment and Plan Assessment and plan (1) Acute on chronic respiratory failure with hypoxia and hypercapnia: Problem comment: - BIPAP prn - follow blood gases - goal O2 saturation 88-90% given risk of CO2 retention Status: Acute (2) Acute exacerbation of chronic obstructive pulmonary disease: Problem comment: - no fever, no evidence of acute infectious process on imaging, procalcitonin within normal limits; will defer antibiotics on admission - treat with steroids, nebs, BiPAP prn - RT following Status: Acute (3) MONIKA on CPAP: Problem comment: - continue home CPAP at night Status: Acute (4) Pulmonary hypertension: Problem comment: - sees both Pulmonology and Cardiology as an outpatient - last TTE obtained 02/2022, results below. Will obtain new TTE given status change Final Impressions: 1. Normal left ventricular size, moderately increased wall thickness, hyperdynamic global systolic function, calculated EF of 76%. 2. No significant valve disease detected. 3. Right ventricular cavity size is normal, global systolic RV function is normal. 4. Moderately increased estimated pulmonary pressures by tricuspid regurgitation velocity and right atrial pressure (44 mmHg plus RAP). 5. The inferior vena cava is dilated, respiratory size variation less than 50%, consistent with elevated right atrial pressure. 6. Compared with images of the prior study of 03/26/2020, there has been no significant interval change. Status: Acute (5) Tobacco dependence: Problem comment: - precontemplative regarding cessation Status: Acute Plan - per above - Lovenox for ppx - anticipate home with when medically stable
--- NOTE | 2022-10-25 15:44 | PC.NURSE ---
Pt admitted at 1430 from ED via WC for COPD exacerbation and hypoxia. Dr. Davenport in room for evaluation. Initial PE completed and majority of admission paperwork/interventions completed. Tele monitor #[id number] placed. RT consult. Oriented pt to room and hospital. Report provided to Ching Wang RN for evening shift.
[2022-10-25 15:55] LABS: Procalcitonin* 0.05 ng/mL (<0.50)
--- NOTE | 2022-10-25 17:01 | RESP.RT ---
Pt with Acute on Chronic respiratory failure. ABG is marginal. She does have home CPAP that she bleeds 3L in at night. Her is bringing it in, and she states she would prefer to wear it. Told Pt she would need to wear this for a few hours. She agrees to this. SPO2 92% with Unit on. BBS coarse Rhonchi. She is talkative and walked herself to the bathroom. I suspect she is not too far off from her baseline. Would suggest to her that she wears oxygen 02/04. As of now she wears it when she wants. There is concern of her having oxygen with her smoking.
[2022-10-25] MEDS: METHYLPREDNISOLONE SOD SUCC 62.5 MG/ML (125) 125 MG IVP (19:05)
[2022-10-25] MEDS: atenoloL 50 MG TABLET PO (21:37)
[2022-10-25] MEDS: SODIUM CHLORIDE 0.9 % (FLUSH) 10 ML SYRINGE 5 ML IVF (21:38)
[2022-10-25] MEDS: ATORVASTATIN 10 MG TABLET 20 MG PO (21:38)
[2022-10-25] MEDS: ENOXAPARIN 40 MG/0.4 ML INJ SUBCUT (21:38)
--- NOTE | 2022-10-25 22:21 | PC.NURSE ---
Patient able to tolerate BiPAP until 1814 which was a total of about 1 hour on the machine. Pt placed on NC @ 3 liters so she could eat. Patient's oxygen saturations are right around 90% on this. Pt is SOB with exertion with saturations dropping into the mid 80's upon returning from the bathroom. Pt demonstrates a cough that is generally non-productive per report from the patient. Will plan to wear home CPAP with 3 liters of O2 bled in overnight.
[2022-10-25] MEDS: GABAPENTIN 300 MG CAPSULE 600 MG PO (22:48)
[2022-10-25] MEDS: BENZOCAINE/MENTHOL 1 EACH LOZENGE MUCOUS MEM (22:48)
[2022-10-25] MEDS: guaiFENesin 100 MG/ML CUP PO (22:48)
[2022-10-26 03:00] VITALS: BP 141/77; PULSE 72; RESP 20; TEMP 36.6; O2SAT 90
[2022-10-26 06:28] LABS: Hemoglobin* 14.4 gm/dL (12.0-16.0); Immature Granulocytes Abs Auto 0.03 K/uL (0.00-0.30); Immature Granulocytes Pct Auto 0.4 %; Lymphocytes Percent Auto 10.9 % (20-44); Mean Corpuscular HGB Conc 33 gm/dL (32-36); Mean Corpuscular Hemoglobin 32 pg (26-34); Mean Corpuscular Volume 98 fL (80-100); Neutrophils Percent Auto 87.7 % (42.0-72.0); Platelet Count* 187 K/uL (140-440); RDW Coefficient of Variation % 11.9 % (11.5-15.5); Red Blood Count 4.51 m/uL (4.00-5.20); White Blood Count* 8.11 K/uL (4.50-11.00)
[2022-10-26 06:35] LABS: Slide Review Reflex No
--- NOTE | 2022-10-26 06:45 | PC.NURSE ---
Shift note: Pt's O2 sats 88-90% with 4L into CPAP, on 3L pt desats to 83% while asleep. Moist productive cough, up to the bathroom with SBA, SOB with exertion
[2022-10-26 06:50] LABS: Chloride* 95 mmol/L (96-114); Potassium* 5.1 mmol/L (3.6-5.1); Sodium* 131 mmol/L (135-149)
[2022-10-26 06:52] LABS: Creatinine* 1.1 mg/dL (0.5-1.5); Est. Creatinine Clearance* 40.99; Estimated Glomerular Filt Rate 53 ml/min
[2022-10-26 06:53] LABS: Blood Urea Nitrogen* 32 mg/dL (7-30); Calcium* 9.1 mg/dL (8.4-10.6); Carbon Dioxide* 32 mmol/L (20-32); Glucose* 162 mg/dL (60-115); Magnesium* 1.7 mg/dL (1.5-2.6)
[2022-10-26 07:08] LABS: Procalcitonin* 0.04 ng/mL (<0.50)
[2022-10-26 07:11] VITALS: PULSE 65
[2022-10-26 07:35] VITALS: PULSE 70; RESP 18
[2022-10-26 07:45] VITALS: BP 119/62; PULSE 70; RESP 18; TEMP 36.6; O2SAT 86
[2022-10-26] MEDS: atenoloL 50 MG TABLET PO (08:33)
[2022-10-26] MEDS: AMLODIPINE 10 MG TABLET PO (08:33)
[2022-10-26] MEDS: predniSONE 20 MG TABLET 60 MG PO (08:34)
[2022-10-26] MEDS: GABAPENTIN 300 MG CAPSULE 600 MG PO (08:34)
[2022-10-26] MEDS: ASPIRIN 81 MG TABLET EC PO (08:34)
[2022-10-26] MEDS: LOSARTAN POTASSIUM 50 MG TABLET 25 MG PO (08:34)
[2022-10-26] MEDS: SODIUM CHLORIDE 0.9 % (FLUSH) 10 ML SYRINGE 5 ML IVF (08:35)
[2022-10-26 11:15] VITALS: BP 114/73; PULSE 72; RESP 18; TEMP 36.7; O2SAT 90
--- NOTE | 2022-10-26 12:34 | PC.NURSE ---
Discharge. Pt was very pleasant. no pain. she was 86 on rA and was placed on 2L nc. SL is patent. she is up with o2 to the BR. gave her a Aerobika this am and RT came to see and also did teaching. LS are coarse rhonchi and diminished. Pt is eating drinking and voiding with no problems. . Pt is SOB with exertion with saturations dropping into the mid 80's upon returning from the bathroom. Pt non-productive. went over discharge packet with pt. went over medications,. appointments education and instructions with pt. went signed personal belonging sheet and signed up for My health. all belongings and paperwork sent with pt. she got a w/c ride to car with o2. she did not want o2 for the ride home per pt and .
--- NOTE | 2022-10-26 15:33 | PM.DS1 ---
DS: Providers Provider Time Seen by Provider: 10:00 Date Seen: 10/26/22 Date of admission: 10/25/22 15:34 Primary care physician: Silver Whalen MD Admitting Clinician: Edith Davenport MD Consults: 10/25/22 11:57 Consult to Respiratory Therapy [CONS] Urgent Comment: Reason(s) for RT Consult:: Consult 10/25/22 14:55 Consult to Respiratory Therapy [CONS] Routine Comment: Reason(s) for RT Consult:: Consult Attending Physician on discharge: Deo Babin MD Date of Discharge: 10/26/22 DS: Diagnosis Discharge Diagnosis (1) Acute exacerbation of chronic obstructive pulmonary disease: Status: Acute Problem details: - no fever, no evidence of acute infectious process on imaging, procalcitonin within normal limits; will defer antibiotics on admission - treat with steroids, nebs, BiPAP prn - RT following (2) Acute on chronic respiratory failure with hypoxia and hypercapnia: Status: Acute Problem details: - BIPAP prn - follow blood gases - goal O2 saturation 88-90% given risk of CO2 retention (3) Acute on chronic respiratory acidosis: Status: Acute (4) Tobacco dependence: Status: Acute Problem details: - precontemplative regarding cessation (5) MONIKA on CPAP: Status: Acute Problem details: - continue home CPAP at night (6) Pulmonary hypertension: Status: Acute Problem details: - sees both Pulmonology and Cardiology as an outpatient - last TTE obtained 02/2022, results below. Will obtain new TTE given status change Final Impressions: 1. Normal left ventricular size, moderately increased wall thickness, hyperdynamic global systolic function, calculated EF of 76%. 2. No significant valve disease detected. 3. Right ventricular cavity size is normal, global systolic RV function is normal. 4. Moderately increased estimated pulmonary pressures by tricuspid regurgitation velocity and right atrial pressure (44 mmHg plus RAP). 5. The inferior vena cava is dilated, respiratory size variation less than 50%, consistent with elevated right atrial pressure. 6. Compared with images of the prior study of 03/26/2020, there has been no significant interval change. (7) Obesity (BMI 35.0-39.9 without comorbidity): Status: Acute (8) Non-adherence to medical treatment: Status: Acute DS: Summary Hospital Course Hospital Course: Monik Gallego is a 72 year old female with a history of MONIKA (on CPAP), mild airflow obstruction on spirometry, and pulmonary HTN, who presented to the hospital today for an elective cataract procedure. In preoperative evaluation, she was found to have O2 saturations of 80% on RA. Patient did not improve with supplemental oxygen, so preoperative team transferred Monik to the ED.? She notes URI symptoms over the past week; has had a cough with intermittent sputum (no hemoptysis), dyspnea on exertion. No fever. No sick contacts. Has not been wearing her supplemental oxygen (per Pulmonology, should be wearing with activity), using her CPAP at night as directed. ER Course and findings: ?- hypoxic on arrival, saturations improved to 91% on 3.5L of supplemental oxygen ?- PCO2 of 64 ?- treated with a DuoNeb and Solumedrol IV x1 Monik's past medical history updated below. She sees Dr. Shaw of Pulmonology and Dr. Alcantara of Cardiology; sees [id number] for her ovarian cancer (2018). PCP is Dr. Whalen. She is treated for COPD exacerbation with oxygen, corticosteroids, ipratropium and albuterol nebulizer therapy, and p.r.n. guaifenesin. She feels much improved. She asked to be discharged. Status at Discharge Functional status at discharge: independent ambulation Overall status at discharge: patient is progressing back to baseline Time Spent with Patient Time attestation: Total time spent providing and/or coordinating discharge services: Time spent: Greater than 30 minutes Exam Narrative: Exam Narrative: GEN: Alert and oriented, sitting comfortably in bed HEENT: EOMIs bilaterally, no scleral icterus CV: RRR, No concerning murmurs, rubs, or gallops R: Fair air movement bilaterally, rhonchi scattered Ext: no concerning edema Skin: No concerning skin lesions or rashes on exposed skin Neuro: No focal deficits, no resting tremor. Independent transfer, station, gait. Psych: Appropriate Const: Vital Signs, click to edit/add: Vital Signs - 24 hr 10/25/22 17:00 10/25/22 19:00 10/25/22 19:00 Temperature 98.4 F 98.4 F Pulse Rate Pulse Rate [Pulse Oximeter] 71 71 Respiratory Rate 20 20 Blood Pressure [Le ft Arm] 124/67 124/67 Pulse Oximetry 91 91 Oxygen Delivery Me thod Nasal Cannula Nasal Cannula Oxygen Flow Rate 3 3 Fraction of Inspir ed Oxygen 35 10/25/22 23:20 10/25/22 23:20 10/25/22 23:20 Temperature 98.6 F Pulse Rate Pulse Rate [Pulse Oximeter] 69 69 Respiratory Rate 20 20 20 Blood Pressure [Le ft Arm] 120/68 Pulse Oximetry 88 89 Oxygen Delivery Me thod Nasal Cannula Nasal Cannula CPAP Oxygen Flow Rate 3 4 Fraction of Inspir ed Oxygen 10/26/22 03:00 10/26/22 07:11 10/26/22 07:45 Temperature 98 F 97.8 F Pulse Rate 65 Pulse Rate [Pulse Oximeter] 72 70 Respiratory Rate 20 18 Blood Pressure [Le ft Arm] 141/77 H 119/62 Pulse Oximetry 90 86 L Oxygen Delivery Me thod Nasal Cannula CPAP Room Air CPAP Oxygen Flow Rate 4 Fraction of Inspir ed Oxygen 10/26/22 07:45 10/26/22 07:35 10/26/22 07:45 Temperature 97.8 F Pulse Rate Pulse Rate [Pulse Oximeter] 70 70 Respiratory Rate 18 18 Blood Pressure [Le ft Arm] 119/62 Pulse Oximetry 86 L 86 L Oxygen Delivery Me thod Room Air CPAP Oxygen Flow Rate Fraction of Inspir ed Oxygen 10/26/22 11:15 Temperature 98.0 F Pulse Rate Pulse Rate [Pulse Oximeter] 72 Respiratory Rate 18 Blood Pressure [Le ft Arm] 114/73 Pulse Oximetry 90 Oxygen Delivery Me thod Nasal Cannula CPAP Oxygen Flow Rate 2 Fraction of Inspir ed Oxygen DS: Data Data Completed and Pending Completed studies during hospitalization: Procedures Assistance with Respiratory Ventilation, Less than 24 Consecutive Hours, Continuous Positive Airway Pressure (03/09/22) Introduction of Other Gas into Respiratory Tract, Via Natural or Artificial Opening (03/09/22) Labs on day of discharge: Labs from last 24 hours 10/26/22 10/26/22 10/25/22 06:05 06:05 12:12 WBC 8.11 RBC 4.51 Hgb 14.4 Hct 44.0 MCV 98 MCH 32 MCHC 33 RDW Coeff of Ezra 11.9 Plt Count 187 Neut % (Auto) 87.7 H Lymph % (Auto) 10.9 L [place] % (Auto) 1.0 Eos % (Auto) 0.0 Baso % (Auto) 0.0 Neut # (Auto) 7.10 H Lymph # (Auto) 0.90 [place] # (Auto) 0.10 Eos # (Auto) 0.00 Baso # (Auto) 0.00 Sodium 131 L Potassium 5.1 Chloride 95 L Carbon Dioxide 32 BUN 32 H Creatinine 1.1 Estimated Creat Clear 40.99 Estimated GFR 53 Glucose 162 H Calcium 9.1 Magnesium 1.7 Procalcitonin 0.04 0.05 Preliminary micro results at discharge 10/25/22 Unknown Urine Culture - Preliminary Urine,Clean Catch < 50,000 COL/ML MIXED GRAM POSITIVE BOZENA ISOLATED NO FURTHER WORKUP Imaging Chest x-ray: Attestation: I have reviewed the pertinent imaging results. Radiologist's impression: No acute cardiopulmonary process identified. Hypoinflation the lungs and probable mild bibasilar atelectasis. Discharge Plan Discharge Disposition: Home, Self-Care Date of Admission: 10/25/22 15:34 Attending Provider on Discharge: Deo Babin Primary Care Provider: Silver Whalen Condition: Improved Anticipated Discharge Date/Time: 10/26/22 12:30 Discharge Medications: New ipratropium-albuterol 0.5 mg-3 mg(2.5 mg base)/3 mL solution for nebulization 3 ml inhalation QID Qty: 90 2RF guaifenesin 600 mg tablet extended release 12hr 600 mg PO BID Qty: 20 1RF prednisone 20 mg tablet 40 mg PO DAILY 5 Days Qty: 10 0RF sodium chloride 1,000 mg tablet,soluble 1,000 mg PO BID Qty: 60 2RF Continued amlodipine 10 mg tablet 10 mg PO DAILY Qty: 90 3RF atenolol 50 mg tablet 50 mg PO BID Qty: 180 3RF gabapentin 300 mg capsule 600 mg PO BID Qty: 180 3RF losartan 25 mg tablet 25 mg PO DAILY Qty: 90 3RF cholecalciferol (vitamin D3) 10 mcg (400 unit) capsule 10 mcg PO DAILY aspirin 81 mg capsule 81 mg PO DAILY furosemide 40 mg tablet 40 mg PO DAILY PRN (Reason: weight gain) atorvastatin 20 mg tablet 20 mg PO HS Discontinued sodium chloride 1 gram tablet 1,000 mg PO BID Label Comments: TAKE ONE TABLET BY MOUTH TWICE A DAY Discharge Orders: Discharge Order (Routine); Ordered 10/26/22 Ordered By: Deo Babin Patient Education: Prednisone (By mouth), Guaifenesin (By mouth), Ipratropium/Albuterol (By breathing), Sodium Chloride (By mouth), How to Stop Smoking (GEN), Cigarette Smoking and Your Health (GEN), Using Oxygen at Home (GEN), Chronic Bronchitis (GEN) Activity Level: Activity as Tolerated Discharge Diet: Regular Follow Up Appointments: Silver Whalen MD [Primary Care Provider] - 11/02/22 1:15 pm (Hospital follow up.) Forms: [employer] Instructions
== END 2022-10-26 12:25 | disposition home or self-care (01) | DRG 189 ==
LOC: ED 13:41 → MEDSURG 13:47
PROVIDERS: Admitting Provider Family Medicine; Emergency Provider Family Medicine; PCP Family Medicine; Visit Provider Family Medicine
DX: J96.21 Acute and chronic respiratory failure with hypoxia (principal); J44.1 Chronic obstructive pulmonary disease with (acute) exacerbation; I50.32 Chronic diastolic (congestive) heart failure; J96.22 Acute and chronic respiratory failure with hypercapnia; G47.33 Obstructive sleep apnea (adult) (pediatric); Z99.89 Dependence on other enabling machines and devices; I27.20 Pulmonary hypertension, unspecified; E66.9 Obesity, unspecified; Z91.199 Patient's noncompliance with other medical treatment and regimen due to unspecified reason; F17.210 Nicotine dependence, cigarettes, uncomplicated; Z68.37 Body mass index [BMI] 37.0-37.9, adult; I73.9 Peripheral vascular disease, unspecified; Z85.43 Personal history of malignant neoplasm of ovary; H26.9 Unspecified cataract; I11.0 Hypertensive heart disease with heart failure; F17.200 Nicotine dependence, unspecified, uncomplicated; E78.5 Hyperlipidemia, unspecified
CPT/HCPCS: 36415; 36600; 71045; 80048; 80053; 81001; 82803; 83735; 83880; 84145; 84484; 85025; 87086; 87502; 87634; 87635; 93005; 94640; 94660; 94664; 94761; 99285; 99291; A9270; J1650; J2930; J7512

== ENCOUNTER 2022-11-06 08:14 | Outpatient (CLI) | payer MEDICARE, BC, SELFPAY ==
[2022-11-06 08:53] LABS: Creatinine* 1.1 mg/dL (0.5-1.5); Estimated Glomerular Filt Rate 53 ml/min
--- NOTE | 2022-11-06 09:00 | CRLHL7_ITS ---
For Patients: As a result of the Century Cures Act, medical imaging exams and procedure reports are released immediately into your electronic medical record. You may view this report before your referring provider. If you have questions, please contact your health care provider. INDICATION: Primary malignant neoplasm of the fallopian tube. Prior hysterectomy, oophorectomy, and lymph node dissection. Port-A-Cath placement. Follow up. TECHNIQUE: CT of the chest abdomen and pelvis. COMPARISON: May 09, 2022. FINDINGS: CT chest: Right-sided Port-A-Cath with its lead tip at the atriocaval junction. Clear lungs. No pleural or pericardial effusions. Normal-appearing thyroid gland, breasts, and thoracic aorta. Normal size normal-appearing mediastinal lymph nodes. No mediastinal or hilar lymphadenopathy. Stable but enlarged main pulmonary artery measuring up to 3.[address] of the abdomen and pelvis: Surgically absent uterus and ovaries. No ascites or lymphadenopathy. Dense vascular calcification within the abdominal aorta and iliac arteries. The liver is negative for masses or biliary dilatation. The spleen is not enlarged. The pancreas, gallbladder, and both adrenal glands are within normal limits. Left renal cysts. Chronic bilateral perinephric fat stranding of uncertain etiology. Right paraumbilical hernia containing fat with some increased attenuation of fat which may reflect necrosis. The size of the hernia has minimally increased. No bowel obstruction no ileus. No inguinal lymphadenopathy. Multilevel degenerative disc disease best appreciated at L2 and L5. IMPRESSION: 1. No evidence for recurrent or metastatic disease. 2. Right-sided Port-A-Cath with its lead tip at the atrial caval junction. 3. Slight increase in the size of a right paraumbilical hernia with increased attenuation of fat suggesting some degree of fatty necrosis. Please note that all CT scans at this facility use dose modulation, iterative reconstruction, and/or weight-based dosing when appropriate to reduce radiation dose to as low as reasonably achievable. Dictated by Jesus Manuel Knight MD @ 11/06/2022 11:05:44 AM (Electronically Signed)
--- NOTE | 2022-11-06 09:15 | CRLHL7_ITS ---
For Patients: As a result of the 21st Century Cures Act, medical imaging exams and procedure reports are released immediately into your electronic medical record. You may view this report before your referring provider. If you have questions, please contact your health care provider. BILATERAL BREAST MRI WITHOUT AND WITH GADOLINIUM, 11/06/2022 CLINICAL HISTORY: 72-year-old female with elevated risk of breast cancer due to BRCA 2 mutation. INDICATION FOR BREAST MRI: Screening breast MRI in this high-risk woman. COMPARISON STUDIES: Breast MRI 10/25/2021 and mammogram 04/12/2022. CONTRAST: 15 cc of Dotarem. TECHNIQUE: The patient was positioned prone using a breast coil. Multiple imaging sequences were obtained using 1-1.5 mm thick slices with no gap. The image sequences include T2-weighted STIR in the axial plane, T1-weighted nonfat-saturated gradient echo in the axial plane, pre- and post-contrast T1-weighted FLASH 3D with fat suppression in the axial plane, and T1-weighted FLASH high resolution 3D with fat suppression in the sagittal plane. Image post-processing was performed on a [employer] workstation. Complex 3D rendering including maximum intensity projections (MIPS) and volumetric renderings were obtained to optimize visualization of the extent of pathology and relationship to the nipple, skin, and chest wall. This aids in determining feasibility of breast conservation surgery. Subtraction, multiplanar reconstruction, mean curve determination, and angiogenesis mapping were also performed. The study was technically adequate. FINDINGS: Amount of Fibroglandular Tissue: Scattered fibroglandular tissue. Breast Background Enhancement: Mild. RIGHT Breast: Artifact from chest [id number] within the superior medial chest wall/breast, limits assessment of this area. Otherwise, no suspicious areas of enhancement. LEFT Breast: No suspicious areas of enhancement. Lymph Nodes: No adenopathy. IMPRESSIONS AND RECOMMENDATIONS: Negative, there is no MRI evidence of malignancy. Continued annual screening mammography and as clinically indicated screening breast MRI. BI-RADS Category 1: Negative Dictated by Apple James MD @ 11/07/2022 11:20:03 AM norma/Dictated by: Apple James MD @ 11/07/2022 11:20:00 AM (Electronically Signed)
== END 2022-11-06 08:15 | disposition home or self-care (01) ==
LOC: CT 08:15
PROVIDERS: PCP Family Medicine; Visit Provider Physician Assistant
DX: C57.00 Malignant neoplasm of unspecified fallopian tube (principal); K42.9 Umbilical hernia without obstruction or gangrene; Z15.01 Genetic susceptibility to malignant neoplasm of breast
CPT/HCPCS: 36415; 36591; 71260; 74177; 77049; 82565; A9575; J1642; Q9967

== ENCOUNTER 2022-11-06 08:15 | Outpatient (RCR) | payer MEDICARE, BC, SELFPAY ==
[2022-11-06] MEDS: HEPARIN 500 UNIT/5 ML SYRINGE IVF (09:13)
[2022-11-06] MEDS: SODIUM CHLORIDE 0.9 % (FLUSH) 10 ML SYRINGE IVF (09:14)
== END 2023-05-05 23:59 | disposition home or self-care (01) ==
LOC: CCIC 08:15
PROVIDERS: PCP Family Medicine; Visit Provider Clinical Nurse Specialist
DX: Z45.2 Encounter for adjustment and management of vascular access device (principal)
CPT/HCPCS: 36591; J1642

== ENCOUNTER 2022-11-07 14:02 | Outpatient (CLI) | payer MEDICARE, BC, SELFPAY ==
[2022-11-07 17:39] LABS: Chloride* 97 mmol/L (96-114); Potassium* 4.6 mmol/L (3.6-5.1); Sodium* 134 mmol/L (135-149)
[2022-11-07 17:42] LABS: Carbon Dioxide* 31 mmol/L (20-32); Estimated Glomerular Filt Rate 59 ml/min
[2022-11-07 17:43] LABS: Blood Urea Nitrogen* 29 mg/dL (7-30); Glucose* 83 mg/dL (60-115)
== END 2022-11-07 14:03 | disposition home or self-care (01) ==
LOC: NFLDREF 14:03
PROVIDERS: PCP Family Medicine; Visit Provider Family Medicine
DX: Z01.818 Encounter for other preprocedural examination (principal)
CPT/HCPCS: 80048

== ENCOUNTER 2022-11-08 07:17 | Day surgery (SDC) | payer MEDICARE, BC, SELFPAY ==
--- NOTE | 2022-11-08 07:41 | SUR.PREOP ---
Patient provided home covid negative results to RN.
--- NOTE | 2022-11-08 07:41 | SUR.PREOP ---
The eye drops brought by the patient (Ketorolac and Prednisolone) are examined and I have determined they are labeled by the patient's pharmacy for this patient as prescribed by the surgeon. The bottles are intact, recently obtained and appear to be correct.
[2022-11-08 07:47] VITALS: BP 134/65; PULSE 74; RESP 18; TEMP 37.1; O2SAT 90
[2022-11-08] MEDS: ALBUTEROL SULFATE 2.5 MG/3 ML VIAL.NEB NEB (07:53)
[2022-11-08 07:55] VITALS: BMI 38.1
[2022-11-08] MEDS: TETRACAINE 0.5% OPHTH 1 DROP EYE-LEFT ×2 (07:57→08:06)
[2022-11-08] MEDS: KETOROLAC OPHTH 0.5% 1 DROP EYE-LEFT ×2 (08:04→08:10)
[2022-11-08] MEDS: SODIUM CHLORIDE 0.9 % (FLUSH) 10 ML SYRINGE IVF (08:16)
[2022-11-08] MEDS: TETRACAINE 0.5% OPHTH 2 DROP EYE-BOTH (08:37)
--- NOTE | 2022-11-08 08:44 | P.ANES_ITS ---
Anesthesia Charges Start Date/Time Anesthesia Start Date: 11/08/22 Anesthesia Start Time: 08:34 Stop Date/Time Anesthesia Stop Date: 11/08/22 Anesthesia Stop Time: 09:07 Summary Extremes of Age - Over 70 or under 1: [employer]
[2022-11-08 09:05] VITALS: BP 130/70; PULSE 72; RESP 16; TEMP 36.2; O2SAT 90
--- NOTE | 2022-11-08 09:05 | P.OPTPRC_ITS ---
Procedure Note Date of procedure: 11/08/22 Will [facility] bill your pro fee for this procedure?: Yes Procedure Description: SURGEON: Erica Painter MD PREOPERATIVE DIAGNOSIS: Nuclear sclerotic cataract, left eye. POSTOPERATIVE DIAGNOSIS: Nuclear sclerotic cataract, left eye. NAME OF OPERATION: Phacoemulsification of cataract with posterior chamber intraocular lens implantation in the left eye. ANESTHESIA: Topical. ESTIMATED BLOOD LOSS: Less than 2 cc. COMPLICATIONS: None. PATHOLOGY SPECIMEN: None. INDICATIONS: See consult note for details. The risks, benefits and alternatives of the procedure were explained to the patient, who elected to proceed and sign ed informed consent to do so. PROCEDURE: The patient was brought to the pre-holding area where the left eye was identified as the operative eye. I placed my initials above this eye. The patient received eye drops consisting of 0.5% tetracaine, 1% tropicamide, 10% phenylephrine, and 0.5% ketorolac. The patient was then brought to the operating room where the left eye was again identified as the operative eye. The eye was prepped with Betadine and draped in the usual sterile ophthalmic fashion. A #15 super-sharp blade was used to create a paracentesis site. 1% non-preserved intracameral lidocaine was injected into the anterior chamber. Endocoat was injected into the anterior chamber. A 2.4 mm keratome was used to create a three-plane self-sealing incision 1 mm anterior to the temporal limbus. A cystotome was used to create an anterior capsular leaflet. The Utrata forceps were used to extend this to form a continuous curvilinear capsulorrhexis. Hydrodissection was performed. The cataract was removed with phacoemulsification using the ppslfv-cod-[id number] technique. The irrigation and aspiration tip was used to remove the remaining cortex. Healon was injected into the capsular bag. An ELIU ZCB00 intraocular lens of 12.0 diopters was injected into the capsular bag. The irrigation and aspiration tip was used to remove the remaining viscoelastic. Balanced salt solution on a cannula was used to hydrate the wound, and the wound was found to be watertight. The pupil was noted to be round. DISPOSITION: The patient was taken to the recovery room and discharged to home in stable condition. The patient was instructed to call me or go to the emergency department with any sudden change, including dramatic loss of vision, severe pain in the eye or eyebrow region, nausea, or vomiting. The patient will follow up in the clinic tomorrow morning. Surgeon: Erica Painter MD
== END 2022-11-08 09:45 | disposition home or self-care (01) ==
LOC: OR 07:18
PROVIDERS: PCP Family Medicine; Visit Provider Ophthalmology
PROC: (CPT 66984; principal; 2022-11-08 07:30)
DX: H25.12 Age-related nuclear cataract, left eye (principal)
CPT/HCPCS: 66984; 00142; 94640; 99100; A9270; J2250; J3010; V2632

== ENCOUNTER 2022-11-22 07:25 | Day surgery (SDC) | payer MEDICARE, BC, SELFPAY ==
[2022-11-22] MEDS: TETRACAINE 0.5% OPHTH 1 DROP EYE-RIGHT ×2 (07:35→07:40)
[2022-11-22] MEDS: KETOROLAC OPHTH 0.5% 1 DROP EYE-RIGHT ×2 (07:35→07:40)
[2022-11-22 07:38] VITALS: BP 119/67; PULSE 61; RESP 18; TEMP 36.7; O2SAT 91; BMI 38.0
[2022-11-22] MEDS: SODIUM CHLORIDE 0.9 % (FLUSH) 10 ML SYRINGE IVF (07:46)
--- NOTE | 2022-11-22 08:13 | W.ANESCHARGE ---
Anesthesia Charges Start Date/Time Anesthesia Start Date: 11/22/22 Anesthesia Start Time: 09:25 Stop Date/Time Anesthesia Stop Date: 11/22/22 Anesthesia Stop Time: 10:00 Summary Extremes of Age - Over 70 or under 1: MDA
--- NOTE | 2022-11-22 08:33 | SUR.PREOP ---
The eye drops brought by the patient (Ketorolac, ofloxacin, and Prednisolone) are examined and I have determined they are labeled by the patient's pharmacy for this patient as prescribed by the surgeon. The bottles are intact, recently obtained and appear to be correct.
[2022-11-22] MEDS: TETRACAINE 0.5% OPHTH 2 DROP EYE-RIGHT (09:28)
[2022-11-22] MEDS: BALANCED SALT IRRIG SOLN 15 ML EYE-RIGHT (09:33)
--- NOTE | 2022-11-22 09:35 | W.ANESCHARGE ---
Anesthesia Charges Start Date/Time Anesthesia Start Date: 11/22/22 Anesthesia Start Time: 09:25 Stop Date/Time Anesthesia Stop Date: 11/22/22 Anesthesia Stop Time: 10:00 Summary Extremes of Age - Over 70 or under 1: [employer]
[2022-11-22 10:10] VITALS: BP 97/57; PULSE 57; RESP 16; TEMP 36.4; O2SAT 91
--- NOTE | 2022-11-22 12:58 | P.OPTPRC_ITS ---
Procedure Note Date of procedure: 11/22/22 Will [facility] bill your pro fee for this procedure?: Yes Procedure Description: SURGEON: Erica Paitner MD PREOPERATIVE DIAGNOSIS: Nuclear sclerotic cataract, right eye. POSTOPERATIVE DIAGNOSIS: Nuclear sclerotic cataract, right eye. NAME OF OPERATION: Phacoemulsification of cataract with posterior chamber intraocular lens implantation in the right eye. ANESTHESIA: Topical. ESTIMATED BLOOD LOSS: Less than 2 cc. COMPLICATIONS: None. PATHOLOGY SPECIMEN: None. INDICATIONS: See consult note for details. The risks, benefits and alternatives of the procedure were explained to the patient, who elected to proceed and s igned informed consent to do so. PROCEDURE: The patient was brought to the pre-holding area where the right eye was identified as the operative eye. I placed my initials above this eye. The patient received eye drops consisting of 0.5% tetracaine, 1% tropicamide, 10% phenylephrine, and 0.5% ketorolac. The patient was then brought to the operating room where the right eye was again identified as the operative eye. The eye was prepped with Betadine and draped in the usual sterile ophthalmic fashion. A #15 super-sharp blade was used to create a paracentesis site. 1% non-preserved intracameral lidocaine was injected into the anterior chamber. Endocoat was injected into the anterior chamber. A 2.4 mm keratome was used to create a three-plane self-sealing incision 1 mm anterior to the temporal limbus. A cystotome was used to create an anterior capsular leaflet. The Utrata forceps were used to extend this to form a continuous curvilinear capsulorrhexis. Hydrodissection was performed. The cataract was removed with phacoemulsification using the lcnqac-mhd-pkufrgy technique. The irrigation and aspiration tip was used to remove the remaining cortex. Healon was injected into the capsular bag. An ELIU ZCB00 intraocular lens of 14.0 diopters was injected into the capsular bag. The irrigation and aspiration tip was used to remove the remaining viscoelastic. Balanced salt solution on a cannula was used to hydrate the wound, and the wound was found to be watertight. The pupil was noted to be round. DISPOSITION: The patient was taken to the recovery room and discharged to home in stable condition. The patient was instructed to call me or go to the emergency department with any sudden change, including dramatic loss of vision, severe pain in the eye or eyebrow region, nausea, or vomiting. The patient will follow up in the clinic tomorrow morning. Surgeon: Erica Painter MD
== END 2022-11-22 10:18 | disposition home or self-care (01) ==
PROVIDERS: PCP Family Medicine; Visit Provider Ophthalmology
PROC: (CPT 66984; principal; 2022-11-22 07:30)
DX: H25.11 Age-related nuclear cataract, right eye (principal)
CPT/HCPCS: 66984; 00142; 99100; A9270; J2250; J3010; V2632

== ENCOUNTER 2023-04-17 10:05 | Outpatient (CLI) | payer MEDICARE, BC, SELFPAY ==
--- NOTE | 2023-04-17 10:15 | CRLHL7_ITS ---
For Patients: As a result of the Cures Act, medical imaging exams and procedure reports are released immediately into your electronic medical record. You may view this report before your referring provider. If you have questions, please contact your health care provider. BILATERAL DIGITAL SCREENING MAMMOGRAM WITH TOMOSYNTHESIS AND COMPUTER-AIDED DETECTION CLINICAL HISTORY: Routine screening exam. COMPARISON: Breast MRI 11/06/2022, 10/25/2021. Mammogram images 04/12/2022, 04/11/2021. TECHNIQUE: Digital mammogram in CC and MLO projections including computer-aided detection (CAD). Tomosynthesis utilized. BREAST COMPOSITION: There are areas of scattered fibroglandular density. FINDINGS: RIGHT Breast: Prominent RIGHT axillary lymph node. LEFT Breast: No suspicious findings. IMPRESSION: RIGHT breast asymmetry/mass. RECOMMENDATIONS: RIGHT axillary ultrasound recommended. BI-RADS Category 0: Incomplete: Need Additional Imaging Evaluation and/or Prior Mammograms for Comparison The [facility] will contact the patient for follow-up. A lay language report of this examination will be provided to the patient. Dictated by Gray Wright MD @ 04/19/2023 12:57:40 PM shubham/Dictated by: Gray Wright MD @ 04/19/2023 12:57:00 PM (Electronically Signed)
== END 2023-04-17 10:06 | disposition home or self-care (01) ==
LOC: MAMMO 10:07
PROVIDERS: PCP Family Medicine; Visit Provider Nurse Practitioner Obstetrics & Gynecology
DX: Z12.31 Encounter for screening mammogram for malignant neoplasm of breast (principal); N63.10 Unspecified lump in the right breast, unspecified quadrant
CPT/HCPCS: 77063; 77067

== ENCOUNTER 2023-04-25 11:09 | Outpatient (CLI) | payer MEDICARE, BC, SELFPAY ==
--- NOTE | 2023-04-25 11:15 | CRLHL7_ITS ---
For Patients: As a result of the Century Cures Act, medical imaging exams and procedure reports are released immediately into your electronic medical record. You may view this report before your referring provider. If you have questions, please contact your health care provider. CLINICAL HISTORY: : Right axillary lymph node prominence COMPARISON: Mammogram 04/17/2023 TECHNIQUE: Real-time ultrasound imaging of right axilla with imaging documentation. FINDINGS: Targeted ultrasound to the right axilla performed. Three lymph nodes are identified and measured. One lymph node measures 10 x 5 x 17 millimeters, a 2nd lymph node measures 20 x 4 x 8 millimeters and a 3rd lymph node measures 7 x 5 x 14 millimeters. The hypoechoic cortex within these lymph nodes is mildly prominent measuring between 2.6 and 3.8 millimeters. Normal central fatty hilum noted with normal internal vascularity. IMPRESSION: Mildly prominent right axillary lymph nodes with slight prominence of the hypoechoic cortex. RECOMMENDATIONS: Ultrasound-guided core needle biopsy of 1 of the lymph nodes is recommended. Results and recommendations were discussed with the patient at the time of the exam. BI-RADS: 4. Suspicious. Dictated by Gray Wright MD @ 04/25/2023 12:28:57 PM (Electronically Signed)
== END 2023-04-25 11:10 | disposition home or self-care (01) ==
LOC: US 11:10
PROVIDERS: PCP Family Medicine; Visit Provider Family Medicine
DX: M79.89 Other specified soft tissue disorders (principal)
CPT/HCPCS: 76882

== ENCOUNTER 2023-04-26 08:35 | Outpatient (CLI) | payer MEDICARE, BC, SELFPAY | END 2023-04-26 08:36 | disposition home or self-care (01) | LOC: NFLDREF 05-02 08:12 | PROVIDERS: PCP Family Medicine; Referring Provider Family Medicine; Visit Provider Family Medicine | DX: E78.5 Hyperlipidemia, unspecified (principal); I10 Essential (primary) hypertension; E87.1 Hypo-osmolality and hyponatremia; E66.9 Obesity, unspecified; E87.5 Hyperkalemia; R53.1 Weakness | CPT/HCPCS: 80053; 80061 ==

== ENCOUNTER 2023-04-30 09:10 | Outpatient (CLI) | payer MEDICARE, BC, SELFPAY ==
--- NOTE | 2023-04-30 09:15 | CRLHL7_ITS ---
For Patients: As a result of the Century Cures Act, medical imaging exams and procedure reports are released immediately into your electronic medical record. You may view this report before your referring provider. If you have questions, please contact your health care provider. INDICATION: 72-year-old female. History of BRCA 1 positivity. History of fallopian tube cancer. A recent mammogram 04/17/2023 suggested a possible enlarged left axillary lymph node. A recent right axillary ultrasound 04/25/2023 suggested slightly prominent right axillary lymph nodes with slight prominence of one or more of the lymph node cortices. Biopsy was recommended. TECHNIQUE: Directed right axillary ultrasound with this radiologist present. COMPARISON: Correlation is made with a right axillary ultrasound 04/25/2023, mammogram 04/17/2023, MRI breast 11/06/2022, and CT chest, abdomen, and pelvis 11/06/2022. FINDINGS: No enlarged lymph nodes identified. No abnormal lymph nodes. No thickened cortex of any of the lymph nodes that are visualized. A noncontrast chest CT is recommended with attention directed to the axilla with the arms of the patient raised above her head at the time of scan acquisition. This is to make certain that there is not an enlarged lymph node in the right axilla. One cannot be identified by today`s ultrasound and therefore biopsy was not performed. These findings were discussed in detail with the patient. She agrees to this course of action. IMPRESSION: 1. No abnormal right axillary lymph nodes. 2. No right axillary lymphadenopathy or cortical thickening. 3. A chest CT without contrast, with attention directed to the axilla is recommended. The patient should be scanned with her arms over her head. The patient agrees to this course of action. A biopsy was not performed today. Dictated by Jesus Manuel Knight MD @ 04/30/2023 11:34:31 AM (Electronically Signed)
== END 2023-04-30 09:11 | disposition home or self-care (01) ==
PROVIDERS: PCP Family Medicine; Visit Provider Family Medicine
DX: R59.0 Localized enlarged lymph nodes (principal); R92.8 Other abnormal and inconclusive findings on diagnostic imaging of breast; Z15.01 Genetic susceptibility to malignant neoplasm of breast
CPT/HCPCS: 38505; 76882; 76942; A4648; A4649

== ENCOUNTER 2023-05-10 09:46 | Outpatient (CLI) | payer MEDICARE, BC, SELFPAY ==
--- OUTSIDE RECORDS SUMMARY | 2023-05-10 09:52 | XMS_ITS | Continuity of Care Document ---
Author Name Unknown Organization [facility] Address [address] [place] [address] Phone Care Team Providers Care Retirement Administrator Name Role Phone Matthias Simpson MD Unavailable Unavailable Allergies, Adverse Reactions, Alerts Substance Reaction Status Criticality DULOXETINE HCL Active No Informatio n Medications Medication Instructions Dosage Effective Dates (start - stop) Status Comments CALCIUM 500-VIT D3 (unknown strength) take 2 Tablet by Oral route every day Not Available - Active gabapentin 300 mg capsule 4 capsules daily - Active simvastatin 40 mg tablet take 1 tablet by oral route every day in the evening 40 MG - Active losartan 100 mg tablet take 1 tablet by oral route every day 100 MG - Active aspirin 81 mg tablet,delayed release take 1 tablet by oral route every day 81 MG - Active sodium chloride 1 gram tablet 2 tablets daily - Active amlodipine 5 mg tablet take 1 tablet by oral route every day 5 MG - Active atenolol 50 mg tablet take 2 tablet by oral route every day 100 MG - Active Procedures Procedure Date Office/Outpatient Visit, New Advance Directives Directive Yes / No Effective Date File Name No Information Encounters Encounter Description Practice Location Reason(s) For Visit Diagnoses Date Provider Providers Copied on Encounter Office/Outpa tient Visit, New [facility], [address], [place], [address], tel:[phone] [facility], Abnormal Lab Study (chief complaint) Positive Antibody 1 Calvin Rizzo. [facility] [address], [place], [address], [place]. tel:[phone] Referring Provider: Matthias Sorensen, [facility] [address], [place], [address]. tel:[phone] Family History Family Member Type Diagnosis Age At Onset Problem No family history of Systemi c lupus erythematosus Immunizations Vaccine Date Status Comments COVID-19 Pfizer administered Note: 2020 ; Source: Other Provider Payers Payer name Insurance type Covered alliance party ID Authoriza timisael(s) [employer] Medicare Advantage/Plat inum Blue BL [id number] Social History Type Description Quantity Date Captured Comments Alcohol Use Details 3-4 drinks weekly Caffeine Use Details Tobacco Use Status Occasional cigarette smoker Smoking Status Heavy tobacco smoker Smoking Tobacco Use Details Cigarette: No Details Available Cigarette: 12 Cigarettes per day Sex Female Vital Signs Date / Time: Height Weight BMI Pulse Rate Blood Pressure Temperature Respiratory Rate Body Surface Area Head Circumference Head Circ. Percentile Wt./Fadi. Percentile BMI percentile Pulse Ox Inhaled Ox 10:38 AM 65.16 in 102.512 kg (226.00 lbs) 37.4 3 kg/m eter (2) 120/72 mm[Hg] 97.20 F Chief Complaint And Reason For Visit From encounter dated '04/06/2021 10:30'. Abnormal Lab Study (chief complaint) Reason For Referral Reason For Referral No Information Plan Of Treatment Date Type Action Status Goal Tobacco cessation counseling completed History Of Present Illness Encounter Date Complaint History Of Prese nt Illness Abnormal Lab Study Functional Status Date Functional Assessmen t Pain Score 5/10 Instructions Date Instruction Additional Infor mation No Information Assessments Type Assessment Date assessment Positive Antibody Patient Care Teams Name Effective Dates (start - stop) Status Members No Information
--- NOTE | 2023-05-10 10:00 | CRLHL7_ITS ---
For Patients: As a result of the Century Cures Act, medical imaging exams and procedure reports are released immediately into your electronic medical record. You may view this report before your referring provider. If you have questions, please contact your health care provider. INDICATION: Follow-up cancer appeared checking lymph node right axilla TECHNIQUE: CT chest, abdomen and pelvis acquired with IV contrast. COMPARISON: CT chest and pelvis 12/03/2022, right axillary ultrasound 04/25/2023 FINDINGS: Chest: Cardiovascular structures: Heart size is normal. Thoracic aorta and main pulmonary artery are normal in caliber. Mediastinum and catherine: No mass or adenopathy. Lungs: Minimal areas of atelectasis in the lower lobes lingula and right middle lobe. Pleura and pericardium: No effusions. Chest wall and axilla: No abnormal axillary lymph nodes. Oval density in the subcutaneous soft tissues in the right superior chest at the location of previous port probably reflects residual soft tissue thickening and/or residual fluid at previous port site. Abdomen and Pelvis: Liver: Unremarkable. Spleen: Unremarkable. Pancreas: Unremarkable. Gallbladder and bile ducts: Unremarkable. Kidneys: Left renal cyst. Adrenal glands: Unremarkable. GI tract: The bowels unremarkable diverticulosis Vascular structures: Unremarkable. Lymph nodes: Unremarkable. Miscellaneous: Again seen is a right periumbilical hernia containing fluid and fat. There is some fat stranding the appearance is not significantly changed. Pelvic Organs: Hysterectomy. Oval soft tissue density unchanged in the left upper pelvis measuring 1.3 by 1 centimeter 195 Bones: Unremarkable for age. IMPRESSION: 1. No findings of metastatic disease in the chest abdomen or pelvis. Small oval density in the left upper pelvis unchanged. 2. No axillary adenopathy. Please note that all CT scans at this facility use dose modulation, iterative reconstruction, and/or weight-based dosing when appropriate to reduce radiation dose to as low as reasonably achievable. Dictated by Bonnie Giron MD @ 05/12/2023 10:47:06 AM (Electronically Signed)
== END 2023-05-10 09:47 | disposition home or self-care (01) ==
LOC: CT 09:47
PROVIDERS: PCP Family Medicine; Visit Provider Nurse Practitioner Obstetrics & Gynecology
DX: C57.00 Malignant neoplasm of unspecified fallopian tube (principal)
CPT/HCPCS: 71260; 74177; Q9967

== ENCOUNTER 2023-05-16 16:05 | Outpatient (REF) | payer MEDICARE, BC, SELFPAY ==
--- OUTSIDE RECORDS SUMMARY | 2023-05-16 16:11 | XMS_ITS | Continuity of Care Document ---
Author Name Unknown Organization [facility] Address [address] [place] [address] Phone Care Team Providers Care Baggage Agent Name Role Phone Matthias Simpson MD Unavailable [...] [facility], [address], [place], [address], tel:[phone] [facility], Abnormal Lab Study (chief complaint) Positive Antibody 1 Calvin Rizzo. [facility] [address], [place], [address], [place]. tel:[phone] Referring Provider: Matthias Sorensen, [facility] [address], [place], [address]. tel:[phone] Family History Family Member Type Diagnosis Age At Onset Problem No family history of Systemi c lupus erythematosus Immunizations Vaccine Date Status Comments COVID-19 Pfizer administered Note: 2020 ; Source: Other Provider Payers Payer name Insurance type Covered democrat ID Authoriza timisael(s) [employer] Medicare Advantage/Plat inum Blue BL [id number] Social History Type Description Quantity Date Captured [...]
[2023-05-16 16:54] LABS: Chloride* 95 mmol/L (96-114); Potassium* 4.8 mmol/L (3.6-5.1); Sodium* 133 mmol/L (135-149)
[2023-05-16 16:57] LABS: Anion Gap 7 mEq/L (7-15); Carbon Dioxide* 31 mmol/L (20-32); Creatinine* 0.8 mg/dL (0.5-1.5); Estimated Glomerular Filt Rate 78 ml/min
[2023-05-16 16:58] LABS: Blood Urea Nitrogen* 18 mg/dL (7-30); Calcium* 9.7 mg/dL (8.4-10.6); Glucose* 82 mg/dL (60-115)
[2023-05-16 17:11] LABS: NT Pro B Type NatriureticPept* 301 pg/mL
== END 2023-05-16 16:06 | disposition home or self-care (01) ==
LOC: NPINS 16:05
PROVIDERS: PCP Family Medicine; Visit Provider Internal Medicine Cardiovascular Disease
DX: I50.22 Chronic systolic (congestive) heart failure (principal)
CPT/HCPCS: 80048; 83880

== ENCOUNTER 2023-09-04 10:30 | Outpatient (CLI) | payer MEDICARE, BC, SELFPAY ==
[2023-09-04 10:58] LABS: Creatinine* 0.9 mg/dL (0.5-1.5); Estimated Glomerular Filt Rate 68 ml/min
--- NOTE | 2023-09-04 11:00 | CRLHL7_ITS ---
For Patients: As a result of the Century Cures Act, medical imaging exams and procedure reports are released immediately into your electronic medical record. You may view this report before your referring provider. If you have questions, please contact your health care provider. Indication: PRIMARY MALIGNANT Neoplasm OF FALLOPIAN TUBE Technique: CT Chest/Abd/Pelvis W/ 110CC [id number] Please note that all CT scans at this facility use dose modulation, iterative reconstruction, and/or weight-based dosing when appropriate to reduce radiation dose to as low as reasonably achievable. Comparison: 05/10/2023 Findings: In the chest, the visualized thyroid gland is within normal limits. Atherosclerotic changes are present. Stable 1 cm or less lymph nodes in the precarinal and AP window spaces of the mediastinum. No enlarged axillary or hilar lymph nodes. No pleural or pericardial effusion. Small subpleural nodules within the right upper lobe are similar to the prior study. No new nodules. No fracture is present regarding the vertebral bodies. Degenerative changes are present. An old right 5th rib fracture is present. In the abdomen, there is no suspicious lesion. The adrenal glands are normal. Normal spleen. Stomach and duodenum appear normal. Normal pancreas. Atherosclerotic changes. Normal gallbladder. Exophytic cyst arises from the upper pole of the left kidney. Chronic perinephric stranding noted. No hydronephrosis. Sub centimeter cyst anterior right kidney. A few scattered subcentimeter retroperitoneal lymph nodes are similar. Normal appendix. Right para midline abdominal wall hernia containing fat and a small amount of fluid is similar to the prior study. In the pelvis, the bladder is normal. The uterus is absent. Status post BSO. Mild sigmoid diverticulosis. No diverticulitis. No bowel obstruction or free air. No abscess. Stable soft tissue density along the left common iliac chain measuring 17 x 13 millimeters, series 6, image 140. Degenerative disc disease L5-S1 and L2-3. No vertebral body compression fracture. Impression: Stable exam. Unchanged subcentimeter lymph nodes within the chest, abdomen and pelvis. Stable residual soft tissue density anterior to the left common iliac chain. Stable tiny subpleural nodular densities in the right upper lobe. Right paramidline abdominal wall hernia again noted. No bowel obstruction. No new findings. Please note that all CT scans at this facility use dose modulation, iterative reconstruction, and/or weight-based dosing when appropriate to reduce radiation dose to as low as reasonably achievable. Dictated by Gray Wright MD @ 09/04/2023 1:25:05 PM (Electronically Signed)
== END 2023-09-04 10:31 | disposition home or self-care (01) ==
LOC: CT 10:31
PROVIDERS: PCP Family Medicine; Visit Provider Obstetrics & Gynecology Gynecologic Oncology
DX: C57.00 Malignant neoplasm of unspecified fallopian tube (principal); R91.1 Solitary pulmonary nodule; K46.9 Unspecified abdominal hernia without obstruction or gangrene
CPT/HCPCS: 36415; 71260; 74177; 82565; Q9967

== ENCOUNTER 2024-01-24 | Inpatient (IN) | payer MEDICARE, BC, SELFPAY ==
[2024-01-24] VITALS (28 sets, daily range): BP systolic 113–150; BP diastolic 65–89; PULSE 70–100; RESP 5–32; TEMP 36.2–37.1; O2SAT 55–92; BMI 35.8
--- NOTE | 2024-01-24 00:18 | ED.SOB ---
HPI - SOB/Dyspnea General Time Seen by Provider: 00:18 Date Seen: 01/24/24 Chief Complaint: Shortness of Breath/Dyspnea Stated Complaint: oxygen levels are low,weak Time Seen by Provider: 01/24/24 00:18 Source: patient, RN notes reviewed and old records reviewed Mode of arrival: ambulatory Limitations: no limitations History of Present Illness HPI Narrative: 73-year-old female with history of COPD and possibly heart failure who presents with shortness of breath starting yesterday. Denies chest pain, increased cough, fever, chills, runny nose, nausea, vomiting, diarrhea, abdominal pain, lower extremity swelling. Review of chart list DuoNeb and Lasix for the patient, however she says she does not take any these and has no nebulizers or inhalers at home. Patient reports she does check her oxygen levels at home and she usually is 88-92%. Related Data Home Medications Medication Instructions Recorded Confirmed aspirin 81 mg capsule 81 mg PO DAILY 03/09/22 09/20/23 cholecalciferol (vitamin D3) 10 10 mcg PO DAILY 07/20/22 09/20/23 mcg (400 unit) capsule Previous Rx's Medication Instructions Recorded sodium chloride 1,000 mg soluble 1,000 mg PO BID electrolyte 10/26/22 tablet replenishment #60 tabs amlodipine 10 mg tablet 10 mg PO DAILY #90 tabs 04/30/23 atenolol 50 mg tablet 50 mg PO BID #180 tabs 04/30/23 atorvastatin 20 mg tablet 20 mg PO HS #90 tabs 04/30/23 gabapentin 300 mg capsule 600 mg (2 x 300 mg) PO BID #360 04/30/23 caps losartan 25 mg tablet 25 mg PO DAILY #90 tabs 04/30/23 terbinafine HCl 250 mg tablet 250 mg PO QDAY #90 tabs 09/20/23 Allergies Allergy/AdvReac Type Severity Reaction Status Date / Time duloxetine Allergy Mild itchy Verified 09/20/23 13:39 Review of Systems Status of ROS: Reports: 10 or more systems reviewed and unremarkable except as noted in History and below [facility] Medical History (Updated 01/24/24 @ 03:28 by Jude Richardson MD) Hyperlipidemia (05/05/11) ?E78.5 - Hyperlipidemia, unspecified (ICD-10) Obesity (BMI 35.0-39.9 without comorbidity) ?E66.9 - Obesity, unspecified (ICD-10) BRCA2 positive ?Z15.01 - Genetic susceptibility to malignant neoplasm of breast (ICD-10) ?Z15.09 - Genetic susceptibility to other malignant neoplasm (ICD-10) Toenail fungus ?B35.1 - Tinea unguium (ICD-10) Health care directive on file ?Z78.9 - Other specified health status (ICD-10) Peripheral neuropathy ?G62.9 - Polyneuropathy, unspecified (ICD-10) Chronic hyponatremia ?E87.1 - Hypo-osmolality and hyponatremia (ICD-10) MONIKA on CPAP ?G47.33 - Obstructive sleep apnea (adult) (pediatric) (ICD-10) ?Z99.89 - Dependence on other enabling machines and devices (ICD-10) CO2 retention ?E87.2 - Acidosis (ICD-10) Polyp of colon (05/05/11) ?K63.5 - Polyp of colon (ICD-10) Pneumothorax ?J93.9 - Pneumothorax, unspecified (ICD-10) Obesity (05/05/11) ?E66.9 - Obesity, unspecified (ICD-10) Malignant neoplasm of ovary (2018) ?C56.9 - Malignant neoplasm of unspecified ovary (ICD-10) Ischemic colitis ?K55.9 - Vascular disorder of intestine, unspecified (ICD-10) Hypertension (05/05/11) ?I10 - Essential (primary) hypertension (ICD-10) Fracture of rib of right side ?S22.31XA - Fracture of one rib, right side, initial encounter for closed fracture (ICD-10) Contusion of back ?S20.229A - Contusion of unspecified back wall of thorax, initial encounter (ICD-10) Chemotherapy-induced neuropathy ?G62.0 - Drug-induced polyneuropathy (ICD-10) ?T45.1X5A - Adverse effect of antineoplastic and immunosuppressive drugs, initial encounter (ICD-10) Chemotherapy-induced nausea and vomiting ?R11.2 - Nausea with vomiting, unspecified (ICD-10) ?T45.1X5A - Adverse effect of antineoplastic and immunosuppressive drugs, initial encounter (ICD-10) Surgical History (Updated 12/04/22 @ 15:40 by Puja Welsh MD) Status post dissection of cervical lymph nodes ?Z98.890 - Other specified postprocedural states (ICD-10) History of hysterectomy ?Z90.710 - Acquired absence of both cervix and uterus (ICD-10) History of colonoscopy ?Z98.890 - Other specified postprocedural states (ICD-10) Family History Father Coronary artery disease High blood pressure Mother Coronary artery disease Breast cancer Social History (Updated 04/30/23 @ 15:06 by Ching Jackson ~ [facility]) Narrative: , lives with in [place]. Two adult children. 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 Alcohol use 4-5 drinks per week, no history of ETOH withdrawal. No recreational drug use. 1/2ppd smoker What is your current living situation?: I presently have a place to live Problems where you live: no known problems In the past 12 months, utilities in danger of being shut off: no In past 12 months, lack of transportation kept you from medical appts, meetings, work, or getting things needed for daily living: no In the past 12 mos, have been you worried that your food would run out before you had money to buy more?: never true In the past 12 mos, the food you bought just didn't last and you didn't have money to buy more?: never true Highest level of school completed/degree received: some college, no degree Smoking Status: Current every day smoker What tobacco products do you use: cigarettes Smoking packs per day: 0.5 Smoking cigarettes per day: 10.0 Years smoked: 50 Smoking pack-years: 25.00 Do you use any of these nicotine containing products: None Second hand tobacco smoke exposure: No How often do you have a drink containing alcohol: 2-4 times a month How many standard drinks containing alcohol do you have on a typical day: 1 or 2 How often do you have six or more drinks on one occasion: Never AUDIT-C Alcohol total score: 2 Non-prescribed substance use: denies use Caffeine: Yes (1 cup coffee per day, diet coke) How often does anyone, including family, friends and others, physically hurt you: never How often does anyone, including family, friends and others, insult or talk down to you: never How often does anyone, including family, friends and others, threaten you with harm: never How often does anyone, including family, friends and others, scream or curse at you: never Little interest or pleasure in doing things: not at all Feeling down, depressed, or hopeless: not at all Are you using contraception or practicing any form of control: No service: No Exam Narrative: Exam Narrative: General: Well-developed and well-nourished, no acute distress Head: Atraumatic and normocephalic Eyes: Pupils are equal reactive, extraocular motions intact, conjunctiva clear ENT: External nose and ears are normal, posterior pharynx without erythema or exudate Neck: No midline cervical tenderness, full spontaneous range of motion the neck, trachea midline, no adenopathy Heart: Regular rate and rhythm no murmurs or thrills Lungs: Diffuse inspiratory and expiratory wheezes with crackles bilaterally, mild tachypnea Abdomen: Soft, nontender, nondistended with active bowel sounds Musculoskeletal: No tenderness, deformity, or edema Neurologic: Awake, alert, and oriented x3, no gross focal neurologic deficits, cranial nerves intact as tested Psych: Mood and affect are appropriate Skin: No rashes Const: Vital Signs, click to edit/add: Vital Signs - 24 hr 01/24/24 00:05 01/24/24 00:30 01/24/24 00:43 Temperature 97.2 F L Pulse Rate 90 97 Pulse Rate [Left P ulse Oximeter] 100 Respiratory Rate 26 H 32 H 9 L Blood Pressure 148/73 H Blood Pressure [Ri ght Upper Arm] 150/65 H Pulse Oximetry 55 L 86 L 83 L Oxygen Delivery Me thod Room Air Oxygen Flow Rate 01/24/24 00:45 01/24/24 00:47 01/24/24 01:00 Temperature Pulse Rate 95 96 92 Pulse Rate [Left P ulse Oximeter] Respiratory Rate 5 L 29 H 20 Blood Pressure 149/79 H Blood Pressure [Ri ght Upper Arm] Pulse Oximetry 81 L 84 L 92 Oxygen Delivery Me thod Oxygen Flow Rate 01/24/24 01:06 01/24/24 01:15 01/24/24 01:30 Temperature Pulse Rate 89 97 93 Pulse Rate [Left P ulse Oximeter] Respiratory Rate 31 H 13 11 L Blood Pressure 141/89 H Blood Pressure [Ri ght Upper Arm] Pulse Oximetry 80 L 83 L 79 L Oxygen Delivery Me thod Oxygen Flow Rate 01/24/24 01:31 01/24/24 01:32 01/24/24 01:33 Temperature Pulse Rate 94 95 91 Pulse Rate [Left P ulse Oximeter] Respiratory Rate 18 16 29 H Blood Pressure 147/83 H Blood Pressure [Ri ght Upper Arm] Pulse Oximetry 80 L 84 L 85 L Oxygen Delivery Me thod Oxygen Flow Rate 01/24/24 01:45 01/24/24 01:45 01/24/24 01:47 Temperature Pulse Rate 95 95 Pulse Rate [Left P ulse Oximeter] Respiratory Rate 28 H 15 Blood Pressure 139/73 Blood Pressure [Ri ght Upper Arm] Pulse Oximetry 85 L 82 L 79 L Oxygen Delivery Me thod Nasal Cannula Oxygen Flow Rate 6 01/24/24 02:09 01/24/24 02:32 01/24/24 02:35 Temperature Pulse Rate 97 91 Pulse Rate [Left P ulse Oximeter] Respiratory Rate Blood Pressure 140/67 H Blood Pressure [Ri ght Upper Arm] Pulse Oximetry 87 L 84 L Oxygen Delivery Me thod Oxygen Flow Rate 01/24/24 02:45 01/24/24 02:47 01/24/24 03:02 Temperature Pulse Rate 90 88 Pulse Rate [Left P ulse Oximeter] Respiratory Rate Blood Pressure 145/73 H 139/70 Blood Pressure [Ri ght Upper Arm] Pulse Oximetry 84 L 81 L Oxygen Delivery Me thod Oxygen Flow Rate Course Course ED Course: Patient seen examined, reviewed prior annual health at which time COPD was addressed, at that time patient is on Lasix 40 mg daily as well as DuoNebs 4 times a day. Presents today with shortness of breath since last night. No associated chest pain or cough. Patient reports she does not use any nebulizer treatments or inhalers, also says she is not taking Lasix. On initial triage, oxygen saturation reported 55%, however patient does not have any tachypnea and speaking in full sentences, no respiratory distress. Lungs with diffuse inspiratory and expiratory wheezes as well as bilateral crackles. This likely represents COPD exacerbation with possibly some a component of infection versus heart failure, patient has no history of pulmonary fibrosis. Labs and chest x-ray ordered, DuoNeb as well as Solu-Medrol given. Disposition based on clinical response but certainly on initial evaluation admission likely. Care complicated by noncompliance with medications and treatment plan, also with complication of smoking, history of COPD and heart failure. Reevaluation(s) Time of Reevaluation #1: 00:58 Reevaluation #1: Labs ordered and independently interpreted by me or with venous blood gas showing a pCO2 of 57 but normal pH at 7.37 representing chronic hypercarbic failure, which has been seen in the past for this patient. CBC with leukocytosis a mild left shift, this could be from stress demargination but with worsening respiratory status or crackles on lung exam, pneumonia possible as well, chest x-ray pending. Time of Reevaluation #2: 01:50 Reevaluation #2: Labs ordered and independently interpreted by me with negative troponin, normal basic metabolic panel, BNP is elevated, respiratory panel negative. Chest x-ray and panel interpreted by me without acute infiltrate but poor lung expansion, CT PE study is ordered. Patient was reexamined, wheezing was resolved after nebulizer treatment and patient is feeling better, discussed plan for admission. Time of Reevaluation #3: 02:16 Reevaluation #3: CT scan of the chest independently interpreted by me does not demonstrate pulmonary embolism, there are multifocal infiltrates consistent with pneumonia. Patient started on Rocephin and azithromycin and will be admitted. Additional Reevaluation(s): 2:28 a.m. care discussed with Dr. Elizabeth, hospitalist who accepts patient for admission, we discussed placement and given high oxygen demand and baseline poor respiratory status patient will be placed initially in CCU and step-down as able. 3:[address] report which demonstrates findings compatible with heart failure, vision does have elevated BNP. However, given abrupt onset, possible superimposed pneumonia, and leukocytosis dyspnea is likely multifactorial. Vital Signs Vital signs: Initial Vital Signs Temperature 97.2 F L 01/24/24 00:05 Temperature Source Temporal Artery Scan 01/24/24 00:05 Pulse Rate 100 01/24/24 00:05 Pulse Rhythm Regular 01/24/24 00:05 Respiratory Rate 26 H 01/24/24 00:05 Blood Pressure 150/65 H 01/24/24 00:05 Blood Pressure Mean 93 01/24/24 00:05 Blood Pressure Position Sitting 01/24/24 00:05 Pulse Oximetry 55 L 01/24/24 00:05 Oxygen Delivery Method Room Air 01/24/24 00:05 Vital Signs Temperature 97.2 F L 01/24/24 00:05 Pulse Rate 100 01/24/24 00:05 Respiratory Rate 26 H 01/24/24 00:05 Blood Pressure 150/65 H 01/24/24 00:05 Pulse Oximetry 55 L 01/24/24 00:05 Oxygen Delivery Method Room Air 01/24/24 00:05 Temperature 97.2 F L 01/24/24 00:05 Pulse Rate 88 01/24/24 02:47 Respiratory Rate 15 01/24/24 01:47 Blood Pressure 139/70 01/24/24 03:02 Pulse Oximetry 81 L 01/24/24 02:47 Oxygen Delivery Method Nasal Cannula 01/24/24 01:45 Oxygen Flow Rate 6 01/24/24 01:45 Medications Administered Medications: Generic Name Dose Route Start Last Admin Trade Name Freq PRN Reason Stop Dose Admin Albuterol/Ipratropium 1 neb 01/24/24 00:41 01/24/24 00:46 Iprat-Albut 0.5-2.5 Mg/3 Ml Neb IH 01/24/24 00:42 1 neb ONCE ONE Administration Ceftriaxone Sodium 2 gm/ 100 mls @ 200 mls/hr 01/24/24 02:19 01/24/24 02:48 Sodium Chloride IVPB 01/24/24 02:20 Infused ONCE ONE Infusion Azithromycin 500 mg/ Sodium 255 mls @ 255 mls/hr 01/24/24 02:19 01/24/24 02:47 Chloride IVPB 01/24/24 02:20 255 mls/hr ONCE ONE Administration Methylprednisolone Sodium Succinate 125 mg 01/24/24 00:41 01/24/24 00:46 Methylprednisolone Sod Succ 62.5 Mg/Ml (125) IVP 01/24/24 00:42 125 mg ONCE ONE Administration MDM - SOB/Dyspnea Lab Data Labs: Lab Results 01/24/24 01/24/24 01/24/24 Range/Units 00:25 00:42 00:56 WBC 12.92 H (4.50-11.00) K/uL RBC 4.27 (4.00-5.20) m/uL Hgb 13.6 (12.0-16.0) gm/dL Hct 43.3 (33.0-51.0) % MCV 101 H (80-100) fL MCH 32 (26-34) pg MCHC 31 L (32-36) gm/dL RDW Coeff of Ezra 13.1 (11.5-15.5) % Plt Count 192 (140-440) K/uL Neut % (Auto) 81.0 H (42.0-72.0) % Lymph % (Auto) 9.6 L (20-44) % [place] % (Auto) 7.8 (0.0-11.0) % Eos % (Auto) 0.9 (0.0-7.0) % Baso % (Auto) 0.2 (0.0-3.0) % Neut # (Auto) 10.50 H (1.7-7.0) K/uL Lymph # (Auto) 1.20 (0.90-2.90) K/uL [place] # (Auto) 1.00 H (0.00-0.90) K/UL Eos # (Auto) 0.10 (0.00-0.50) K/uL Baso # (Auto) 0.00 (0.00-0.30) K/uL Abs Immat Gran (auto) 0.10 (0.00-0.30) K/uL Imm/Tot Granulo (auto) 0.5 % VBG pH 7.367 (7.32-7.43) VBG pCO2 57 H (40-50) mmHG VBG pO2 42.7 (25-47) mmHG VBG HCO3 33 H (21-28) mmol/L Sodium 134 L (135-149) mmol/L Potassium 5.0 (3.6-5.1) mmol/L Chloride 97 (96-114) mmol/L Carbon Dioxide 31 (20-32) mmol/L Anion Gap 6 L (7-15) mEq/L BUN 16 (7-30) mg/dL Creatinine 0.7 (0.5-1.5) mg/dL Estimated Creat Clear 44.41 Estimated GFR 91 ml/min Glucose 129 H (60-115) mg/dL Calcium 8.8 (8.4-10.6) mg/dL Magnesium 1.6 (1.5-2.6) mg/dL NT-Pro-B Natriuret Pep 2630 pg/mL SARS-CoV-2 (PCR) Negative SARS-CoV-2 (Negative) Influenza Type A (PCR) Negative PCR FLU A (Negative) Influenza Type B (PCR) Negative PCR FLU B (Negative) RSV (PCR) Negative PCR RSV (Negative) POC Troponin I 0.01 (0.01-0.04) ng/ml ECG Data Attestation: I personally reviewed and interpreted this ECG as follows: ECG interpretation date: 01/24/24 ECG interpretation time: : Prior ECG tracings: available for review Interpretation: Performed at 12:59 a.m. demonstrates normal sinus rhythm rate 96, no acute ST elevations or depressions, normal intervals, normal axis, QTC 429, CA 180. No change from prior of October 2022 other than rate is higher. Discharge Plan Discharge Clinical Impression: Acute on chronic respiratory failure with hypoxia and hypercapnia, Pulmonary hypertension, Acute exacerbation of chronic obstructive pulmonary disease, Community acquired bacterial pneumonia, Hypertensive heart disease with acute on chronic diastolic congestive heart failure Patient Disposition: Admitted As Inpatient
--- NOTE | 2024-01-24 00:41 | XR_ITS ---
Patient: RACHEL CHUN Facility:?[facility] Patient ID:?[id number] Site Patient ID:?[id number]. Site :?[id number] Study:?XRay-Chest PORTABLE-01/24/2024 1:25:00 AM Ordering Physician:BENNIE Final Report: INDICATION: Dyspnea. TECHNIQUE: Chest 1 view. COMPARISON: None. FINDINGS: Cardiovascular and mediastinum: Heart size and vasculature are normal in caliber and appearance. Lungs and pleural spaces: Low lung volumes with bronchovascular crowding and bibasilar atelectasis. No focal consolidation. Slight elevation of the right hemidiaphragm. No definite pleural effusion or pneumothorax. Bones and soft tissues: Unremarkable for age. IMPRESSION: Low lung volumes with bronchovascular crowding and bibasilar atelectasis. No focal consolidation.. Dictated by Miles Vogel MD @ 01/24/2024 1:31:57 AM Signed by:?Miles Vogel MD @01/24/2024 1:31:57 AM (Electronic Signature)
[2024-01-24] MEDS: METHYLPREDNISOLONE SOD SUCC 62.5 MG/ML (125) 125 MG IVP (00:46)
[2024-01-24] MEDS: IPRAT-ALBUT 0.5-2.5 MG/3 ML NEB 1 NEB IH ×4 (00:46→20:01)
--- OUTSIDE RECORDS SUMMARY | 2024-01-24 00:49 | XMS_ITS | Continuity of Care Document ---
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 [address] [place] [address], [id number] , [place]. tel:[phone] Referring Provider: Silver Whalen MD, [address] [place], [address]. tel:[phone] Init Hosp-da E&m Mod Severity [facility], [address] [address], [place], [place], [id number], tel:[phone] [facility] No Information 8 Nura Glaser. [address] [place] [address], [id number] , [place]. tel:[phone] Referring Provider: Silver Whalen MD, [address] [place], [address]. tel:[phone] Family History Family Member Type Diagnosis Age At Onset No Information Payers Payer name Insurance type Covered constitution party ID Authorwendya blanco(s) Blue [employer] [place] [id number] Social History Type Description Quantity Date Captured [...]
--- OUTSIDE RECORDS SUMMARY | 2024-01-24 00:49 | XMS_ITS | Continuity of Care Document ---
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 [facility] [address], [place], [address], [place]. tel:[phone] Referring Provider: Matthias Sorensen, [facility] [address], [place], [address]. tel:[phone] Family History Family Member Type Diagnosis Age At Onset Problem No family history of Systemi c lupus erythematosus Immunizations Vaccine Date Status Comments COVID-19 Pfizer administered Note: 2020 ; Source: Other Provider Payers Payer name Insurance type Covered green party ID Authoriza timisael(s) [employer] [employer] [place] [id number] Social History Type Description Quantity Date Captured [...]
--- OUTSIDE RECORDS SUMMARY | 2024-01-24 00:49 | XMS_ITS | Clinical Summary ---
Author Name Unknown Organization [facility] Facility Address [address] [address] Care Team Providers Care Rn Hyperbaric Name Role Phone Unavailable Primary Care Provider Unavailabl e Social History Tobacco Use Types Packs/Day Years Used Date Smoking Tobacco: Never Assessed Sex and Gender Information Value Date Recorded Sex Assigned at Not on file Gender Identity Not on file Sexual Orientation Not on file Plan of Treatment Health Maintenance Due Date Last Done Comments Breast Cancer Screening 1950 Colorectal Cancer Screening: Annual FOBT 1998 Colorectal Cancer Screening: Colonoscopy 1998 Colorectal Cancer Screening: Sigmoidoscopy 1998 Pneumococcal Vaccine: 65+ Ye ars (1 of - PCV) 2014 Influenza Vaccine (Season Ended) 2024 Hepatitis B Vaccine Aged Out No longe r eligible based on patient's age to complete this topic
--- OUTSIDE RECORDS SUMMARY | 2024-01-24 00:49 | XMS_ITS | Clinical Summary ---
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 0 04/03/2019 Active gabapentin (NEURONTIN) 300 mg capsule Take 2 capsules by mouth 2 times daily. 3 05/25/2020 Active oxygen-air delivery systems (HOME OXYGEN)Indications: MONIKA (obstructive sleep apnea) Portable Oxygen Concentrator - 3L per NC pulse with activity, use at home for lifetime 1 Each 11 06/16/2021 Active amLODIPine (NORVASC) 10 mg tablet Take 10 mg by mouth once daily. 04/13/2021 Active CPAPIndications:MONIKA (obstructive sleep apnea) CPAP, heated humidifier, full face mask, headgear, chinstrap, filters and heated tubing. For home use. Pressure: 11 cm H20 Needs 4 liters oxygen bled into CPAP Length of Need: 99 months; Frequency of use: Daily 1 Each 1 03/16/2022 Active cholecalciferol (Vitamin D-3) 400 unit tablet Take 1 Tablet (400 units) by mouth once daily. 40 units = 1 mcg (400 unit = 10 mcg) 0 06/23/2022 Active atorvastatin (LIPITOR) 20 mg tablet Take 1 Tablet (20 mg) by mouth once daily. 0 06/23/2022 Active furosemide (LASIX) 40 mg tabletIndications:C ardiopathy Take 40 mg daily as needed for weight gain of 3# in a day;5 # in a week 90 Tablet 3 06/23/2022 Active sodium chloride 1 gram tabletIndications:H yponatremia,SIADH (syndrome of inappropriate ADH production) (HC) TAKE ONE TABLET BY MOUTH TWICE A DAY 100 Tablet 2 06/28/2022 Active losartan (COZAAR) 25 mg tabletIndications:C ardiopathy Take 1 Tablet (25 mg) by mouth once daily. 05/18/2023 Active atenoloL (TENORMIN) 50 mg tablet Take 1 Tablet (50 mg) by mouth two times daily. 05/18/2023 Active sodium chloride 1,000 mg soluble tabletIndications:H yponatremia TAKE ONE TABLET BY MOUTH TWICE A DAY FOR ELECTROLYTE REPLENISHMENT 100 Tablet 2 05/22/2023 Active oxygen-air delivery systems (HOME OXYGEN)Indications: Chronic hypoxemic respiratory failure (HC) Oxygen for home use. Liters per minute: 4 L bled into CPAP and 2 per nasal cannula with activity Frequency of use: Continuous with portability. Length of need: 99 Months. 1 Each 10/15/2023 Active Active Problems Problem Noted Date Diagnosed Date Hyponatremia 08/11/2020 Mild concentric left ventricular hypertrophy (LV H) 08/11/2020 Elevated serum creatinine 06/26/2019 Ischemic colitis 01/03/2018 Gynecologic malignancy 01/03/2018 Bright red rectal bleeding 12/31/2017 Tobacco abuse 12/31/2017 Alcohol abuse 12/31/2017 Ovarian mass, left 12/31/2017 Routine General Medical Exam ination at a Health Care Facility 07/08/2008 Overview: Lipids - 11/16/06 - cholesterol - 204, LDL - 112, TG - 230 Dexa- none found mammo- 07/09/08 Colon - 01/12/2003, due 2007 Pap/pelvic -09/26/05 - NL Thyroid- none found Hep B-none found Tetanus-12/12/02 Diabetic-no Unspecified essential hypertension 11/17/2006 Obesity, unspecified 11/17/2006 Other and unspecified hyperlipidemia 11/17/2006 Immunizations Name Administration Dates Next Due Influenza Virus, Unspecified 07/02/2018,01/17/20 18 Influenza, IIV3 (Age >=3 years) 07/09/2008,09/26 Pneumococcal Poly,23-Valent (Pneumovax) 10/27/19 15 Td (Age >=7 Years) 12/12/2002 Tdap 05/05/2011 Zoster (Shingrix-RZV, recombinant) 05/23/2019, Family History Medical History Relation Name Comments Heart Disease Father Heart attack Father Cancer-breast Maternal Aunt Stroke Maternal Grandfather No Known Problems Maternal Grandmother Cancer-breast Mother age 80 Heart Disease Mother Lymphoma Mother Other Other no colon or show dog trainer ecological cancers. no premature coronary artery disease. no diabetes. No Known Problems Paternal Grandfather Stomach cancer Paternal Grandmother Cancer-colon No Family History Relation Name Status Comments Brother Alive Father Maternal Aunt Maternal Grandfather Maternal Grandmother Mother Other Paternal Grandfather Paternal Grandmother Social History Tobacco Use Types Packs/Day Years Used Date Smoking Tobacco: Every Day Cigarettes Smokeless Tobacco: Never Tobacco Cessation:Ready to Q uit: Not Asked; Counseling Given: Not Answered Alcohol Use Standard Drinks/Week Comments Yes 0 (1 standard drink = 0.6 oz pure alcohol) occasional, 3/4 drinks per week Social Connections Answer Date Recorded Frequency of Communication with Friends and Fami ly Not on file 09/10/2021 Financial Resource Strain Answer Date R ecorded Difficulty of Paying Living Expenses Not on file 09/10/2021 Difficulty of Paying Living Expenses Not on file 09/10/2021 Sex and Gender Information Value Date Recorded Sex Assigned at Not on file Gender Identity Not on file Sexual Orientation Not on file Obstetrics History Last Filed Vital Signs Vital Sign Reading Time Taken Comments Blood Pressure 100/62 05/18/2023 2:48 PM CDT Pulse 65 05/18/2023 2:48 PM CDT Temperature 36.8 ??C (98.2 ??F) 07/14/2018 7:42 AM CS T Respiratory Rate 20 03/23/2023 1:11 PM CDT Oxygen Saturation 91% 05/18/2023 2:48 PM CDT Inhaled Oxygen Concentration - - Weight 103.4 kg (228 lb) 05/18/2023 2:48 PM CDT Height 165.1 cm (5' 5) 03/23/2023 1:11 PM CDT Body Mass Index 37.94 03/23/2023 1:11 PM CDT Plan of Treatment Upcoming Encounters Date Type Department Care Team (Late st Contact Info) Description 03/21/2024 9:50 AM CDT Office Visit [facility] [place] [address] [place] [address] Oni Shaw MD [address] [address] Health Maintenance Due Date Last Done Comments Depression screening for age 12+ 1961 Hepatitis C screening for ag e 18-79 1967 Medicare Wellness for age 65+ 2014 Pneumococcal series for age 65+ (2 of 2 - PCV) 10/27/2015 10/27/2014 Mammogram for age 45-75 03/10/2021 03/10/20 20 (Completed outside of [facility]), 07/09/2008 Tetanus booster 05/05/2021 05/05/2011, 12/12/2002 COVID-19 vaccine series (2022- season) 2023 07/14/2022, 01/31/2022, 07/19/2021, Additional history exists BMI (ht and wt on same day) for age 18+ 03/23/2024 03/23/2023, 09/15/2022, 06/23/2022, Additional history exists Influenza for age 65+ 05/11/2024 07/02/2018 , 01/16/2018, 07/09/2008, Additional history exists Lipids for age 45-75 10/25/2025 10/25/2020, 09/27/2020, 08/30/2020, Additional history exists Colonoscopy through age 75 01/03/2028 01/02/2018, Tdap Completed 05/05/2011 Zoster (shingles) series for age 50+ Completed 05/23/2019, 02/17/2019 DEXA/DXA scan for age 65+ Completed 2018 (Completed outside of [facility]) Medical Devices Implanted Type Area Lithographing Machine Operator Device Identifier Shelf Expiration Date Model / Serial / Lot Adhesion Barrier 5x6in Seprafilm Absorb - [id number] Implanted:Qty: 1 on 07/11/2018 by Annamarie Massey MD at [facility] 05/10/2019 4301-02# / / [id number] Adhesion Barrier 5x6in Seprafilm Absorb - [id number] Implanted:Qty: 2 on 07/11/2018 by Annamarie Massey MD at [facility] 09/09/2019 4301-02# / / [id number] Procedures Procedure Name Priority Date/Time Associated Diagnosis Comments CHOLESTEROL,TOTAL Routine 10/25/2020 1:0 2 PM ANIMAL HEALTH TECHNICIAN 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) Encounter for examination for normal comparison and control in clinical research program COLONOSCOPY 01/02/2018 11:48 AM CDT XR MAMMO BILAT SCREEN FFDM (IA) Routine 07/09/2008 8:31 AM CDT Other Screening Mammogram from Last 3 Months or Most Recently Relevant to Health Maintenance Results * CHOLESTEROL,TOTAL (10/25/2020 1:02 PM ANIMAL HEALTH TECHNICIAN) CHOLESTEROL,TO PURVI 142 100 - 199 mg/dL 10/25/2020 5:38 PM ANIMAL HEALTH TECHNICIAN [facility] Jet [facility] PROVIDER ORDERED STATUS RANDOM 10/25/2020 5:38 PM ANIMAL HEALTH TECHNICIAN [facility] Blood BLOOD SPECIMEN / Unknown 10/25/2020 1:02 PM ANIMAL HEALTH TECHNICIAN 10/25/2020 5:21 PM ANIMAL HEALTH TECHNICIAN Tamanna Rolon NP CHEMISTRY [facility] [address] [place] [address], * COLONOSCOPY (01/02/2018 11:48 AM CDT) 01/02/2018 11:4 8 AM CDT Narrative Transcriptions Alfredito Lyman MD - 01/02/2018 1:14 PM CDT [facility] Patient Name: Monik Gallego Procedure Date: 01/02/2018 Gender: Female Date of : 1950 Admit Type: Inpatient Procedure: Colonoscopy Proceduralist: [facility] [place] Indications/Pre-Op Diagnosis: Hematochezia Medications: General Procedure Description: The patient had risks, benefits and alternatives explained to andgave informed consent. The patient had a stable cardiopulmonary status and judged an adequate candidate for conscious sedation. The colonoscope was passed through the anus and advanced to thececum, identified by appendiceal orifice and ileocecal valve. Thecolonoscopy was performed without difficulty. The patient tolerated the procedure well. The quality of the bowel preparation was adequate and 10percent obscured. Complications: No immediate complications. Estimated Blood Loss & Specimen: Estimated blood loss: minimal, Specimen collected: Yes and sent to Laboratory Findings: The colon was normal from the cecum to 60 cm on withdrawal (proximal sigmoid). From 60 cm to 50 cm there was segmental ulceration withdusky edematous mucosa and partial mucosal regeneration; no mass was seen.The appearance was most consistent with ischemic colitis; biopsiestaken. There was mild sigmoid and ascending colon diverticulosis. The remainder of the exam was normal including a retroflexionmanuever. Impressions/Post-Op Diagnosis: Finidngs consistent with segmental ischemic colitis; biopsied Mild diverticulosis Recommendation: - Check path - Ok to resume diet. Alfredito Lyman MD 01/02/2018 1:13:44 PM This report has been signed electronically. Note Initiated On: 01/02/2018 11:48 AM Alfredito Lyman MD PROCEDURE ORD * XR MAMMO BILAT SCREEN FFDM (07/09/2008 8:31 AM CDT) MAMMOGRAM ACR 2 Benign Finding Anatomical Region Laterality Modality BREASTS, Breast Left, Breast Right Bilateral Mammography 07/09/2008 8:31 AM CDT Narrative 07/10/2008 10:25 AM CDT Benign findings noted on mammogram. ??For complete description of the mammographic examination, please reference scanned document within [facility]. ?? We are mailing a results letter to the patient. ACR 2 Benign Finding Procedure Note Robi Lopez DO - 07/10/2008 Benign findings noted on mammogram. For complete description of themammographic examination, please reference scanned document within[facility]. We are mailing a results letter to the patient. 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 Healthcare Directive 01/02/2018 5:54 AM Healthcare Directive 12/31/2017 12:00 AM * Full Code (Latest Code Status on File) Date Activated Date Inactivated Comments 07/11/2018 6:13 AM 07/14/2018 2:03 PM * Full Code Date Activated Date Inactivated Comments 12/31/2017 9:37 PM 01/03/2018 3:50 PM Care Teams Finishing Machine Tender Relationship Specialty Start Date End Date Silver Whalen MD [address] [place] [address] PCP - General Family Practice 12/31/17 Opal Alcantara MD [address] [place] [address] [address] [place] [address] Cardiovascular Disease 05/28/20 Nurses, Advanced Heart Failure [address], [place] [address] Advanced Heart Failure/Transplant Card 05/28/20
[2024-01-24 00:52] LABS: HCO3 VBG 33 mmol/L (21-28); PCO2 VBG 57 mmHG (40-50); PO2 VBG 42.7 mmHG (25-47); pH VBG 7.367 (7.32-7.43)
[2024-01-24 00:54] LABS: Basophils Percent Auto 0.2 % (0.0-3.0); Eosinophils Percent Auto 0.9 % (0.0-7.0); Hematocrit 43.3 % (33.0-51.0); Hemoglobin* 13.6 gm/dL (12.0-16.0); Immature Granulocytes Pct Auto 0.5 %; Lymphocytes Percent Auto 9.6 % (20-44); Mean Corpuscular HGB Conc 31 gm/dL (32-36); Mean Corpuscular Hemoglobin 32 pg (26-34); Mean Corpuscular Volume 101 fL (80-100); Monocytes Percent Auto 7.8 % (0.0-11.0); Platelet Count* 192 K/uL (140-440); RDW Coefficient of Variation % 13.1 % (11.5-15.5); Red Blood Count 4.27 m/uL (4.00-5.20); Slide Review Reflex No; White Blood Count* 12.92 K/uL (4.50-11.00)
[2024-01-24 00:55] LABS: Chloride* 97 mmol/L (96-114); Sodium* 134 mmol/L (135-149)
[2024-01-24 00:58] LABS: Creatinine* 0.7 mg/dL (0.5-1.5); Est. Creatinine Clearance* 44.41; Estimated Glomerular Filt Rate 91 ml/min; Magnesium* 1.6 mg/dL (1.5-2.6)
[2024-01-24 00:59] LABS: Anion Gap 6 mEq/L (7-15); Blood Urea Nitrogen* 16 mg/dL (7-30); Calcium* 8.8 mg/dL (8.4-10.6); Carbon Dioxide* 31 mmol/L (20-32); Glucose* 129 mg/dL (60-115)
[2024-01-24 01:00] LABS: Troponin, Point-of-Care* 0.01 ng/ml (0.01-0.04)
--- NOTE | 2024-01-24 01:02 | PC.NURSE ---
Attempt a second IV. Pt noted to have pursed lip breathing, shallow and rapid. Pt states we should have a living will on file. in waiting room who wes her here.
--- NOTE | 2024-01-24 01:14 | PC.NURSE ---
at and will go home and get her cpap camie. we just got home yesterday from [facility] and has not packed unpacked her bag from trip/she says she a phone and Ipaf in there.
[2024-01-24 01:33] LABS: NT Pro B Type NatriureticPept* 2630 pg/mL
--- NOTE | 2024-01-24 01:38 | CT_ITS ---
Patient: RACHEL CHUN Facility:?[facility] Patient ID:?[id number] Site Patient ID:?[id number]. Site :?1950 Study:?CT-Chest PE W/ISOVUE 370 95CC-01/24/2024 2:20:36 AM Ordering Physician:BENNIE Final Report: Indication: Dyspnea, wheezing, concern for CHF or pneumonia Technique: CTA of the chest following 95 mL Isovue 370 IV contrast. Comparison: None Findings: Pulmonary arteries: Suboptimal contrast bolus timing. This examination is nondiagnostic for the evaluation of pulmonary embolism. The main pulmonary artery measures 4.1 centimeters. Lungs: Interlobular septal thickening. Small right greater than left effusions. Mild ground-glass. Consolidative opacities in the left perihilar space and ityfi-[id number]-nwzj-left lung bases. No pneumothorax. Mediastinum: Cardiomegaly. No acute abnormality appreciated. Lymph nodes: No gross lymphadenopathy. Upper abdomen: Perinephric stranding. Soft tissues: No acute abnormality appreciated. Bones: No acute abnormality appreciated. Impression: 1. Suboptimal contrast bolus timing. This examination is nondiagnostic for the evaluation of pulmonary embolism. 2. Findings compatible with heart failure and pulmonary edema. Superimposed pneumonia not excluded. Nodular areas of consolidation or scarring are noted, recommend follow-up CT in 12 weeks. 3. Pulmonary hypertension. Please note that all CT scans at this facility use dose modulation, iterative reconstruction, and/or weight-based dosing when appropriate to reduce radiation dose to as low as reasonably achievable. Dictated by Eyal Caballero MD @ 01/24/2024 3:05:50 AM Signed by:?Eyal Caballero MD @01/24/2024 3:05:50 AM (Electronic Signature)
[2024-01-24 01:41] LABS: PCR FLU A Negative PCR FLU A (Negative); PCR FLU B Negative PCR FLU B (Negative); PCR RSV Negative PCR RSV (Negative); SARS PCR* Negative SARS-CoV-2 (Negative)
--- NOTE | 2024-01-24 02:07 | ED.NURSE ---
pt back from radiology
--- NOTE | 2024-01-24 02:18 | ED.NURSE ---
pt taken to restroom via wheelchair and remained on O2 NC at 6 lpm. DEPARTMENT TRAFFIC FREIGHT ROUTER assisted pt.
[2024-01-24] MEDS: cefTRIAXone 2 GM in 0.9 % SODIUM CHLORIDE Mini-bag 100 ML IVPB (02:20)
[2024-01-24] MEDS: AZITHROMYCIN 500 MG in 0.9 % SODIUM CHLORIDE 250 ml 250 ML 255 MG IVPB (02:47)
--- NOTE | 2024-01-24 03:05 | ED.NURSE ---
RN to RN report given. Pt taken to CCU2 via cart by RN CCB, HS.
--- NOTE | 2024-01-24 03:05 | ED.NURSE ---
Pt O2 sats at 94% via NC at 4 LPM NC prior to transport to CCU2.
--- NOTE | 2024-01-24 05:14 | W.PM.THH&P_ITS ---
Telehealth- H&P: HPI History of Present Illness Time Seen by Provider: 04:30 Date Seen: 01/24/24 Chief complaint: oxygen levels are low,weak Narrative: Monik Gallego is seen as an Interactive Telehealth visit. Monik Gallego is a 73 year old male who is A female with a past medical history significant for COPD and obesity, hypertension who presents to the hospital with increasing shortness of breath and hypoxia. Patient has been in her normal state of health for the past few weeks. She has been traveling across [facility], visiting family in [place] without any medical issues. Over the past 24 hours, she developed increasing shortness of breath and a cough. She is not having any production. Denies any subjective fevers. Today she was feeling severely short of breath. She came to the ER. In the emergency room she was seen and noted to be hypoxic requiring oxygen. She was noted to be in respiratory distress with diffuse inspiratory and expiratory wheezes. She was administered nebulization as well as Solu-Medrol. Patient underwent a CT scan of the chest which did not show pulmonary embolism but did show multifocal infiltrates consistent with pneumonia. She was started on antibiotics. Throughout being observed in the ER, she was noted to have low pulse oximetry, requiring increasing amount of oxygen. At 1 point she was placed on 10 L of oxygen and then weaned down to 6 L. Review of Systems Status of ROS: Reports: 10 or more systems reviewed and unremarkable except as noted in History and below Const: Reports: fever Eyes: Denies: change in vision ENMT: Denies: throat pain, neck pain, difficulty swallowing or hoarseness Cardio: Reports: shortness of breath with exertion; Denies: chest pain, palpitations, edema or lightheadedness Resp: Reports: shortness of breath, cough, wheezing and chest congestion GI: Reports: nausea; Denies: abdominal pain, vomiting or difficulty swallowing : Denies: painful urination Musculo: Denies: back pain or neck pain Integ/Breast: Reports: rash Neuro: Denies: headache Psych: Denies: anxiety Allergy/Immuno: Reports: wheezing [facility] Medical History (Updated 01/24/24 @ 03:28 by Jude Richardson MD) Hyperlipidemia (05/05/11) ?E78.5 - Hyperlipidemia, unspecified (ICD-10) Obesity (BMI 35.0-39.9 without comorbidity) ?E66.9 - Obesity, unspecified (ICD-10) BRCA2 positive ?Z15.01 - Genetic susceptibility to malignant neoplasm of breast (ICD-10) ?Z15.09 - Genetic susceptibility to other malignant neoplasm (ICD-10) Toenail fungus ?B35.1 - Tinea unguium (ICD-10) Health care directive on file ?Z78.9 - Other specified health status (ICD-10) Peripheral neuropathy ?G62.9 - Polyneuropathy, unspecified (ICD-10) Chronic hyponatremia ?E87.1 - Hypo-osmolality and hyponatremia (ICD-10) MONIKA on CPAP ?G47.33 - Obstructive sleep apnea (adult) (pediatric) (ICD-10) ?Z99.89 - Dependence on other enabling machines and devices (ICD-10) CO2 retention ?E87.2 - Acidosis (ICD-10) Polyp of colon (05/05/11) ?K63.5 - Polyp of colon (ICD-10) Pneumothorax ?J93.9 - Pneumothorax, unspecified (ICD-10) Obesity (05/05/11) ?E66.9 - Obesity, unspecified (ICD-10) Malignant neoplasm of ovary (2018) ?C56.9 - Malignant neoplasm of unspecified ovary (ICD-10) Ischemic colitis ?K55.9 - Vascular disorder of intestine, unspecified (ICD-10) Hypertension (05/05/11) ?I10 - Essential (primary) hypertension (ICD-10) Fracture of rib of right side ?S22.31XA - Fracture of one rib, right side, initial encounter for closed fracture (ICD-10) Contusion of back ?S20.229A - Contusion of unspecified back wall of thorax, initial encounter (ICD-10) Chemotherapy-induced neuropathy ?G62.0 - Drug-induced polyneuropathy (ICD-10) ?T45.1X5A - Adverse effect of antineoplastic and immunosuppressive drugs, initial encounter (ICD-10) Chemotherapy-induced nausea and vomiting ?R11.2 - Nausea with vomiting, unspecified (ICD-10) ?T45.1X5A - Adverse effect of antineoplastic and immunosuppressive drugs, initial encounter (ICD-10) Surgical History (Updated 12/04/22 @ 15:40 by Puja Welsh MD) Status post dissection of cervical lymph nodes ?Z98.890 - Other specified postprocedural states (ICD-10) History of hysterectomy ?Z90.710 - Acquired absence of both cervix and uterus (ICD-10) History of colonoscopy ?Z98.890 - Other specified postprocedural states (ICD-10) Family History Father Coronary artery disease High blood pressure Mother Coronary artery disease Breast cancer Social History (Updated 04/30/23 @ 15:06 by Ching Jackson ~ [facility]) Narrative: , lives with in [place]. Two adult children. 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 Alcohol use 4-5 drinks per week, no history of ETOH withdrawal. No recreational drug use. 1/2ppd smoker What is your current living situation?: I presently have a place to live Problems where you live: no known problems Problems where you live details: N/A In the past 12 months, utilities in danger of being shut off: no In past 12 months, lack of transportation kept you from medical appts, meetings, work, or getting things needed for daily living: no In the past 12 mos, have been you worried that your food would run out before you had money to buy more?: never true In the past 12 mos, the food you bought just didn't last and you didn't have money to buy more?: never true Highest level of school completed/degree received: Associate degree: occupational, technical, vocational program Smoking Status: Current every day smoker What tobacco products do you use: cigarettes Smoking packs per day: 0.5 Smoking cigarettes per day: 10.0 Years smoked: 50 Smoking pack-years: 25.00 Do you use any of these nicotine containing products: None Second hand tobacco smoke exposure: Yes How often do you have a drink containing alcohol: 2-4 times a month Alcohol type: wine How many standard drinks containing alcohol do you have on a typical day: 1 or 2 How often do you have six or more drinks on one occasion: Never AUDIT-C Alcohol total score: 2 Non-prescribed substance use: denies use Caffeine: Yes How often does anyone, including family, friends and others, physically hurt you : never How often does anyone, including family, friends and others, insult or talk down to you: never How often does anyone, including family, friends and others, threaten you with harm: never How often does anyone, including family, friends and others, scream or curse at you: never Little interest or pleasure in doing things: not at all Feeling down, depressed, or hopeless: not at all Are you using contraception or practicing any form of control: No service: No Meds Home Medications and Allergies Home Medications Medication Instructions Recorded Confirmed Type aspirin 81 mg capsule 81 mg PO DAILY 03/09/22 09/20/23 History cholecalciferol (vitamin D3) 10 10 mcg PO DAILY 07/20/22 09/20/23 History mcg (400 unit) capsule Allergies Allergy/AdvReac Type Severity Reaction Status Date / Time duloxetine Allergy Mild itchy Verified 09/20/23 13:39 Exam Narrative Exam Narrative: Physical Exam GENERAL: ?vital signs reviewed, well developed and nourished, in no distress HEENT: pupils are equal round and reactive to light, extraocular movements are grossly within normal limits and oral mucosa is moist. NECK: Supple without lymphadenopathy or thyromegaly according to nursing staff examination observation HEART: Regular rate and rhythm without any rubs, murmurs, or gallops. LUNGS: Clear to auscultation bilaterally with good air movement throughout- mild wheezes noted (which are improved from earlier) ABDOMEN: Observation from nurse assisted exam, abdomen appears soft, nontender, and nondistended with Positive bowel sounds noted. EXTREMITIES: Strength and sensation is observed to be grossly within normal limits in the upper and lower extremities.? No focal strength deficit is observed. SKIN:? Observed warm and dry with color normal Const Vital Signs, click to edit/add: Vital Signs - 24 hr 01/24/24 00:05 01/24/24 00:30 01/24/24 00:43 Temperature 97.2 F L Pulse Rate 90 97 Pulse Rate [Left Pulse Oximeter] 100 Pulse Rate [Right Pulse Oximeter] Respiratory Rate 26 H 32 H 9 L Blood Pressure 148/73 H Blood Pressure [Right Arm] Blood Pressure [Right Upper Arm] 150/65 H Pulse Oximetry 55 L 86 L 83 L Oxygen Delivery Method Room Air Oxygen Flow Rate 01/24/24 00:45 01/24/24 00:47 01/24/24 01:00 Temperature Pulse Rate 95 96 92 Pulse Rate [Left Pulse Oximeter] Pulse Rate [Right Pulse Oximeter] Respiratory Rate 5 L 29 H 20 Blood Pressure 149/79 H Blood Pressure [Right Arm] Blood Pressure [Right Upper Arm] Pulse Oximetry 81 L 84 L 92 Oxygen Delivery Method Oxygen Flow Rate 01/24/24 01:06 01/24/24 01:15 01/24/24 01:30 Temperature Pulse Rate 89 97 93 Pulse Rate [Left Pulse Oximeter] Pulse Rate [Right Pulse Oximeter] Respiratory Rate 31 H 13 11 L Blood Pressure 141/89 H Blood Pressure [Right Arm] Blood Pressure [Right Upper Arm] Pulse Oximetry 80 L 83 L 79 L Oxygen Delivery Method Oxygen Flow Rate 01/24/24 01:31 01/24/24 01:32 01/24/24 01:33 Temperature Pulse Rate 94 95 91 Pulse Rate [Left Pulse Oximeter] Pulse Rate [Right Pulse Oximeter] Respiratory Rate 18 16 29 H Blood Pressure 147/83 H Blood Pressure [Right Arm] Blood Pressure [Right Upper Arm] Pulse Oximetry 80 L 84 L 85 L Oxygen Delivery Method Oxygen Flow Rate 01/24/24 01:45 01/24/24 01:45 01/24/24 01:47 Temperature Pulse Rate 95 95 Pulse Rate [Left Pulse Oximeter] Pulse Rate [Right Pulse Oximeter] Respiratory Rate 28 H 15 Blood Pressure 139/73 Blood Pressure [Right Arm] Blood Pressure [Right Upper Arm] Pulse Oximetry 85 L 82 L 79 L Oxygen Delivery Method Nasal Cannula Oxygen Flow Rate 6 01/24/24 02:09 01/24/24 02:32 01/24/24 02:35 Temperature Pulse Rate 97 91 Pulse Rate [Left Pulse Oximeter] Pulse Rate [Right Pulse Oximeter] Respiratory Rate Blood Pressure 140/67 H Blood Pressure [Right Arm] Blood Pressure [Right Upper Arm] Pulse Oximetry 87 L 84 L Oxygen Delivery Method Oxygen Flow Rate 01/24/24 02:45 01/24/24 02:47 01/24/24 03:02 Temperature Pulse Rate 90 88 Pulse Rate [Left Pulse Oximeter] Pulse Rate [Right Pulse Oximeter] Respiratory Rate Blood Pressure 145/73 H 139/70 Blood Pressure [Right Arm] Blood Pressure [Right Upper Arm] Pulse Oximetry 84 L 81 L Oxygen Delivery Method Oxygen Flow Rate 01/24/24 03:21 01/24/24 05:05 Temperature 98.3 F Pulse Rate Pulse Rate [Left Pulse Oximeter] Pulse Rate [Right Pulse Oximeter] 93 Respiratory Rate 24 Blood Pressure Blood Pressure [Right Arm] 118/75 Blood Pressure [Right Upper Arm] Pulse Oximetry 88 88 Oxygen Delivery Method Nasal Cannula Oxygen Flow Rate 4.5 Common normals: no apparent distress Hospitalist - H&P: Result Labs Labs: Short CBC 01/24/24 Range/Units 00:25 WBC 12.92 H (4.50-11.00) K/uL Hgb 13.6 (12.0-16.0) gm/dL Hct 43.3 (33.0-51.0) % Plt Count 192 (140-440) K/uL BMP 01/24/24 00:25 Sodium 134 L Potassium 5.0 Chloride 97 Carbon Dioxide 31 BUN 16 Creatinine 0.7 Glucose 129 H Calcium 8.[address] scan - chest: Attestation: I have reviewed the pertinent imaging results. Assessment and Plan Assessment and plan (1) Community acquired bacterial pneumonia: Status: Acute (2) Acute exacerbation of chronic obstructive pulmonary disease: Status: Acute (3) Acute on chronic respiratory failure with hypoxia and hypercapnia: Status: Acute (4) Hyperlipidemia: Status: Acute (5) Obesity (BMI 35.0-39.9 without comorbidity): Status: Acute (6) Acute exacerbation of chronic obstructive pulmonary disease: Problem comment: - no fever, no evidence of acute infectious process on imaging, procalcitonin within normal limits; will defer antibiotics on admission - treat with steroids, nebs, BiPAP prn - RT following Status: Acute (7) Left ventricular hypertrophy due to hypertensive disease: Status: Acute (8) Tobacco dependence: Problem comment: - precontemplative regarding cessation Status: Acute (9) Chronic hyponatremia: Status: Acute (10) Pulmonary hypertension: Problem comment: - sees both Pulmonology and Cardiology as an outpatient - last TTE obtained 02/2022, results below. Will obtain new TTE given status change Final Impressions: 1. Normal left ventricular size, moderately increased wall thickness, hyperdynamic global systolic function, calculated EF of 76%. 2. No significant valve disease detected. 3. Right ventricular cavity size is normal, global systolic RV function is normal. 4. Moderately increased estimated pulmonary pressures by tricuspid regurgitation velocity and right atrial pressure (44 mmHg plus RAP). 5. The inferior vena cava is dilated, respiratory size variation less than 50%, consistent with elevated right atrial pressure. 6. Compared with images of the prior study of 03/26/2020, there has been no significant interval change. Status: Acute (11) Weakness: Status: Acute Plan 73-year-old female with a history of COPD who presents to the hospital with severe hypoxic respiratory failure requiring 6 to 8 L of oxygen. She has a known history of COPD. CTA of the chest did not show pulmonary embolism but did show multifocal pneumonia. She has been started on antibiotics and steroids and nebulization. I will continue this. Will be concomitantly treating a pneumonia as well as a COPD exacerbation although her exam was consistent with severe wheezing, in the ER prior to administration of steroids and nebulization, she had severe wheezing with very poor airway entry. Patient has a known history of left ventricular hypertrophy and diastolic heart failure. At this time although her BNP is elevated I will withhold any aggressive diuresis. History of pulmonary artery hypertension: Patient sees pulmonology and cardiology in the clinic. At this time her main issue appears to be pneumonia. Will hold off on any additional evaluation treatment. Patient is diagnosed with acute hypoxic respiratory failure. This is likely combination of pneumonia as well as COPD exacerbation related. Total Time Spent Total Time Spent: 75 Telehealth: Statement Statement Telehealth Visit: Today's History and Physical is provided via interactive telehealth by Newton Elizabeth MD.? Patient is located at [facility].? Provider is located at [facility].? Nursing staff assisted with the patient's exam. The visit being done today meets criteria for a telehealth visit and the patient or patient?s parent/guardian is aware the visit is a telehealth visit. Camera Start Time: 04:00 Camera End Time: 04:20
[2024-01-24] MEDS: OMEPRAZOLE 20 MG CAPSULE DR 40 MG PO (06:27)
--- NOTE | 2024-01-24 06:48 | PC.NURSE ---
End of shift note: Pt admitted from ED for acute COPD exacerbation. Pt states, ?I don?t have to use oxygen during the day at home... only with my CPAP at night?. Pt's O2 sat noted to dip to 78% when pt asleep on CPAP with 4 liters of oxygen bled into CPAP. librarian special collections updated Mehreen BASS who then ordered pt to be unit status and start on Bipap. Pt noted to have two IVs in place- one to L AC and one to R hand which are both currently SL. Pt able to transfer/ambulate with assist of 1 and has been continent of bladder.. Pt alert & oriented x 4 and able to make needs known. She has been afebrile since admission and denies cough, pain and nausea when asked. REGINO.
--- NOTE | 2024-01-24 07:52 | PC.NURSE ---
{Pt unable to keep O2 sats above 77% while on CPAP with 4L O2 bled in. Phone call to [facility] to inform. Dr Elizabeth ordered CCU status for pt and start on BiPAP with initial start up settings. After 15min on BiPAP Sats were 95%. As pt is known CO2 retainer FIO2 down to 40%. Sats 90-92%. Report then given to Melissa SULLIVAN.
[2024-01-24 08:09] LABS: HCO3 VBG 33 mmol/L (21-28); PCO2 VBG 58 mmHG (40-50); PO2 VBG 68.2 mmHG (25-47); pH VBG 7.365 (7.32-7.43)
[2024-01-24 08:18] LABS: Basophils Absolute Auto 0.02 K/uL (0.00-0.30); Basophils Percent Auto 0.2 % (0.0-3.0); Hematocrit 41.5 % (33.0-51.0); Hemoglobin* 13.1 gm/dL (12.0-16.0); Immature Granulocytes Abs Auto 0.03 K/uL (0.00-0.30); Immature Granulocytes Pct Auto 0.3 %; Lymphocytes Percent Auto 5.3 % (20-44); Mean Corpuscular HGB Conc 32 gm/dL (32-36); Mean Corpuscular Hemoglobin 32 pg (26-34); Mean Corpuscular Volume 100 fL (80-100); Monocytes Percent Auto 0.7 % (0.0-11.0); Neutrophils Percent Auto 93.5 % (42.0-72.0); Platelet Count* 173 K/uL (140-440); RDW Coefficient of Variation % 12.9 % (11.5-15.5); Red Blood Count 4.16 m/uL (4.00-5.20); White Blood Count* 9.22 K/uL (4.50-11.00)
[2024-01-24 08:28] LABS: Slide Review Reflex No
[2024-01-24 08:34] LABS: Chloride* 97 mmol/L (96-114); Potassium* 4.6 mmol/L (3.6-5.1); Sodium* 133 mmol/L (135-149)
[2024-01-24] MEDS: AMLODIPINE 10 MG TABLET PO (08:34)
[2024-01-24] MEDS: GABAPENTIN 300 MG CAPSULE 600 MG PO ×2 (08:35→20:49)
[2024-01-24] MEDS: SODIUM CHLORIDE 1 GM TABLET PO ×2 (08:35→20:49)
[2024-01-24] MEDS: ASPIRIN 81 MG TABLET EC PO (08:35)
[2024-01-24] MEDS: LOSARTAN POTASSIUM 50 MG TABLET 25 MG PO (08:35)
[2024-01-24] MEDS: SODIUM CHLORIDE 0.9 % (FLUSH) 10 ML SYRINGE 5 ML IVF ×4 (08:35→20:50)
[2024-01-24] MEDS: atenoloL 50 MG TABLET PO ×2 (08:36→20:48)
[2024-01-24 08:37] LABS: Anion Gap 4 mEq/L (7-15); Carbon Dioxide* 32 mmol/L (20-32); Creatinine* 0.7 mg/dL (0.5-1.5); Est. Creatinine Clearance* 44.41; Estimated Glomerular Filt Rate 91 ml/min
[2024-01-24 08:38] LABS: Blood Urea Nitrogen* 15 mg/dL (7-30); Calcium* 8.7 mg/dL (8.4-10.6); Glucose* 177 mg/dL (60-115)
[2024-01-24] MEDS: MAGNESIUM IV 2 GM/50 ML PIGGYBACK IVPB (08:53)
[2024-01-24 08:55] LABS: Procalcitonin* 0.04 ng/mL (<0.50)
--- NOTE | 2024-01-24 10:03 | PM.IMPN1 ---
Progress Note: A&P Assessment and plan (1) Acute on chronic respiratory failure with hypoxia and hypercapnia: Problem details: Oxygen saturation 55% in ED, tachypneic Initial VBG 7.367 in ED, repeat 7.365. PCO2 57, repeat 58, HC03 remains at 33 CTA chest negative for PE, findings compatible with heart failure pulmonary edema. Superimposed pneumonia not excluded. Nodular areas of holiday danielson or scarring are noted, recommend follow-up CT in 12 weeks. Pulmonary hypertension Initially placed on 10 L, decreased to 6 L, currently on BiPAP 40 FiO2 with saturations 90-92%. Continue to wean as able RT for pulmonary support Non compliant with home medications, COPD management Status: Acute (2) Community acquired bacterial pneumonia: Problem details: CT reading superimposed pneumonia cannot be excluded Afebrile, mild leukocytosis - resolved, procalcitonin 0.04 Continue ceftriaxone and azithromycin as initiated in ED given clinical presentation Strep pneumo pending, BC x2 pending Status: Acute (3) Acute exacerbation of chronic obstructive pulmonary disease: Problem details: Oxygen dependent however does not use her home oxygen on any regular basis Continue antibiotic management Prednisone 40 mg x5 days, received methylprednisolone in the ED DuoNebs q.i.d., albuterol nebs p.r.n.. Non compliant with nebulizers at home RT for pulmonary support Has inhalers at home that she is noncompliant with as well, discussed Active smoker, cessation discussed Followed by pulmonology Status: Acute (4) Hyperlipidemia: Problem details: Continue statin Status: Acute (5) Obesity (BMI 35.0-39.9 without comorbidity): Problem details: Complicating above Status: Acute (6) Left ventricular hypertrophy due to hypertensive disease: Problem details: Continue amlodipine, atenolol, losartan Followed by Cardiology Status: Acute (7) Tobacco dependence: Problem details: 12-1 PPD Status: Acute (8) Chronic hyponatremia: Problem details: Sodium 133, baseline 133-134, monitor Status: Acute (9) Pulmonary hypertension: Problem details: - sees both Pulmonology and Cardiology as an outpatient - last TTE obtained 02/2022, results below - TTE ordered - CT findings compatible with heart failure and pulmonary edema, pulmonary hypertension - 1 time dose IV Lasix, monitoring response Final Impressions: 1. Normal left ventricular size, moderately increased wall thickness, hyperdynamic global systolic function, calculated EF of 76%. 2. No significant valve disease detected. 3. Right ventricular cavity size is normal, global systolic RV function is normal. 4. Moderately increased estimated pulmonary pressures by tricuspid regurgitation velocity and right atrial pressure (44 mmHg plus RAP). 5. The inferior vena cava is dilated, respiratory size variation less than 50%, consistent with elevated right atrial pressure. 6. Compared with images of the prior study of 03/26/2020, there has been no significant interval change. Status: Acute (10) Weakness: Problem details: Generalize, in setting of above. PT/OT consult Status: Acute Time Spent With Patient Total time spent: Total time spent caring for the patient today was 45 minutes. This includes time spent for the visit reviewing the chart, time spent during the visit, time spent after the visit and documentation and planning in coordination of care. Subjective Date Seen: 01/24/24 Interval history: Was placed on BiPAP this morning around 6:00 a.m., reports she is actually feeling better, significantly so since admission from the ED. denies headache or dizziness. Denies chest pain or tightness. No nausea. Denies recent fevers prior to admission. No new or worsening cough. The patient tells me she continues to smoke 1/2-1 PPD. has a nebulizer at home but has not used it for a couple of years. Tells me it has been cost prohibitive. Was previous on Lasix but her PCP stopped this. She does not recall why. Has a CPAP she uses at home nightly. Has oxygen she uses very rarely. Is able to walk to and from the mailbox, complete chores around the house without having to stop for rest. Exam Narrative: Exam Narrative: PHYSICAL EXAM General: Pleasant, conversant, NAD HEENT: Normocephalic, atraumatic, sclera white, EOMI Cardiovascular: RRR, S1S2. Trace pitting edema Pulmonary: Diffusely diminished, minimal expiratory wheezes, no rhonchi. BiPAP mask in place Abdominal: Soft, nondistended, NTTP Neurological: Alert, answering questions appropriately, cranial nerves intact, no focal findings Extremities: No gross joint deformity or swelling. AROMI. Neurovascularly intact Skin: Warm, dry. Const: Vital Signs, click to edit/add: Vital Signs - 24 hr 01/24/24 00:05 01/24/24 00:30 01/24/24 00:43 Temperature 97.2 F L Pulse Rate 90 97 Pulse Rate [Left P ulse Oximeter] 100 Pulse Rate [Right Pulse Oximeter] Respiratory Rate 26 H 32 H 9 L Blood Pressure 148/73 H Blood Pressure [Ri ght Arm] Blood Pressure [Ri ght Upper Arm] 150/65 H Pulse Oximetry 55 L 86 L 83 L Oxygen Delivery Me thod Room Air Oxygen Flow Rate Fraction of Inspir ed Oxygen 01/24/24 00:45 01/24/24 00:47 01/24/24 01:00 Temperature Pulse Rate 95 96 92 Pulse Rate [Left P ulse Oximeter] Pulse Rate [Right Pulse Oximeter] Respiratory Rate 5 L 29 H 20 Blood Pressure 149/79 H Blood Pressure [Ri ght Arm] Blood Pressure [Ri ght Upper Arm] Pulse Oximetry 81 L 84 L 92 Oxygen Delivery Me thod Oxygen Flow Rate Fraction of Inspir ed Oxygen 01/24/24 01:06 01/24/24 01:15 01/24/24 01:30 Temperature Pulse Rate 89 97 93 Pulse Rate [Left P ulse Oximeter] Pulse Rate [Right Pulse Oximeter] Respiratory Rate 31 H 13 11 L Blood Pressure 141/89 H Blood Pressure [Ri ght Arm] Blood Pressure [Ri ght Upper Arm] Pulse Oximetry 80 L 83 L 79 L Oxygen Delivery Me thod Oxygen Flow Rate Fraction of Inspir ed Oxygen 01/24/24 01:31 01/24/24 01:32 01/24/24 01:33 Temperature Pulse Rate 94 95 91 Pulse Rate [Left P ulse Oximeter] Pulse Rate [Right Pulse Oximeter] Respiratory Rate 18 16 29 H Blood Pressure 147/83 H Blood Pressure [Ri ght Arm] Blood Pressure [Ri ght Upper Arm] Pulse Oximetry 80 L 84 L 85 L Oxygen Delivery Me thod Oxygen Flow Rate Fraction of Inspir ed Oxygen 01/24/24 01:45 01/24/24 01:45 01/24/24 01:47 Temperature Pulse Rate 95 95 Pulse Rate [Left P ulse Oximeter] Pulse Rate [Right Pulse Oximeter] Respiratory Rate 28 H 15 Blood Pressure 139/73 Blood Pressure [Ri ght Arm] Blood Pressure [Ri ght Upper Arm] Pulse Oximetry 85 L 82 L 79 L Oxygen Delivery Me thod Nasal Cannula Oxygen Flow Rate 6 Fraction of Inspir ed Oxygen 01/24/24 02:09 01/24/24 02:32 01/24/24 02:35 Temperature Pulse Rate 97 91 Pulse Rate [Left P ulse Oximeter] Pulse Rate [Right Pulse Oximeter] Respiratory Rate Blood Pressure 140/67 H Blood Pressure [Ri ght Arm] Blood Pressure [Ri ght Upper Arm] Pulse Oximetry 87 L 84 L Oxygen Delivery Me thod Oxygen Flow Rate Fraction of Inspir ed Oxygen 01/24/24 02:45 01/24/24 02:47 01/24/24 03:02 Temperature Pulse Rate 90 88 Pulse Rate [Left P ulse Oximeter] Pulse Rate [Right Pulse Oximeter] Respiratory Rate Blood Pressure 145/73 H 139/70 Blood Pressure [Ri ght Arm] Blood Pressure [Ri ght Upper Arm] Pulse Oximetry 84 L 81 L Oxygen Delivery Me thod Oxygen Flow Rate Fraction of Inspir ed Oxygen 01/24/24 03:21 01/24/24 03:21 01/24/24 05:05 Temperature 98.3 F Pulse Rate Pulse Rate [Left P ulse Oximeter] Pulse Rate [Right Pulse Oximeter] 93 Respiratory Rate 24 24 Blood Pressure Blood Pressure [Ri ght Arm] 118/75 Blood Pressure [Ri ght Upper Arm] Pulse Oximetry 88 88 88 Oxygen Delivery Me thod Nasal Cannula Nasal Cannula Oxygen Flow Rate 4.5 4 Fraction of Inspir ed Oxygen 01/24/24 07:00 01/24/24 07:48 01/24/24 09:11 Temperature 98 F Pulse Rate Pulse Rate [Left P ulse Oximeter] Pulse Rate [Right Pulse Oximeter] 70 Respiratory Rate 20 20 Blood Pressure Blood Pressure [Ri ght Arm] 145/82 H Blood Pressure [Ri ght Upper Arm] Pulse Oximetry 92 92 Oxygen Delivery Me thod BiPAP BiPAP Oxygen Flow Rate Fraction of Inspir ed Oxygen 0.30 Labs Labs: Laboratory Results - last 24 hr 01/24/24 01/24/24 01/24/24 00:25 00:42 00:56 WBC 12.92 H RBC 4.27 Hgb 13.6 Hct 43.3 MCV 101 H MCH 32 MCHC 31 L RDW Coeff of Ezra 13.1 Plt Count 192 Neut % (Auto) 81.0 H Lymph % (Auto) 9.6 L [place] % (Auto) 7.8 Eos % (Auto) 0.9 Baso % (Auto) 0.2 Neut # (Auto) 10.50 H Lymph # (Auto) 1.20 [place] # (Auto) 1.00 H Eos # (Auto) 0.10 Baso # (Auto) 0.00 Abs Immat Gran (auto) 0.10 Imm/Tot Granulo (auto) 0.5 VBG pH 7.367 VBG pCO2 57 H VBG pO2 42.7 VBG HCO3 33 H Sodium 134 L Potassium 5.0 Chloride 97 Carbon Dioxide 31 Anion Gap 6 L BUN 16 Creatinine 0.7 Estimated Creat Clear 44.41 Estimated GFR 91 Glucose 129 H Calcium 8.8 Magnesium 1.6 NT-Pro-B Natriuret Pep 2630 Procalcitonin SARS-CoV-2 (PCR) Negative SARS-CoV-2 Influenza Type A (PCR) Negative PCR FLU A Influenza Type B (PCR) Negative PCR FLU B RSV (PCR) Negative PCR RSV Lab Acknowledgement POC Troponin I 0.01 01/24/24 01/24/24 07:45 08:01 WBC 9.22 RBC 4.16 Hgb 13.1 Hct 41.5 MCV 100 MCH 32 MCHC 32 RDW Coeff of Ezra 12.9 Plt Count 173 Neut % (Auto) 93.5 H Lymph % (Auto) 5.3 L [place] % (Auto) 0.7 Eos % (Auto) 0.0 Baso % (Auto) 0.2 Neut # (Auto) 8.60 H Lymph # (Auto) 0.50 L [place] # (Auto) 0.10 Eos # (Auto) 0.00 Baso # (Auto) 0.02 Abs Immat Gran (auto) 0.03 Imm/Tot Granulo (auto) 0.3 VBG pH 7.365 VBG pCO2 58 H VBG pO2 68.2 H VBG HCO3 33 H Sodium 133 L Potassium 4.6 Chloride 97 Carbon Dioxide 32 Anion Gap 4 L BUN 15 Creatinine 0.7 Estimated Creat Clear 44.41 Estimated GFR 91 Glucose 177 H Calcium 8.7 Magnesium NT-Pro-B Natriuret Pep Procalcitonin 0.04 SARS-CoV-2 (PCR) Influenza Type A (PCR) Influenza Type B (PCR) RSV (PCR) Lab Acknowledgement Test Added POC Troponin I
[2024-01-24] MEDS: predniSONE 20 MG TABLET 40 MG PO (10:18)
[2024-01-24] MEDS: FUROSEMIDE 10 MG/ML inj 40 MG IVP (10:52)
--- NOTE | 2024-01-24 19:31 | PC.NURSE ---
end of shift. pt has been pleasant. no pain. she is on Ra she has o2 tubbing to move about in the room. 02 @ 2.5L
[2024-01-24] MEDS: ATORVASTATIN 10 MG TABLET 20 MG PO (20:48)
[2024-01-25] VITALS: BP 126/68; PULSE 60; RESP 22; TEMP 36.6; O2SAT 92
[2024-01-25] MEDS: AZITHROMYCIN 500 MG in 0.9 % SODIUM CHLORIDE 250 ml 250 ML 255 MG IVPB (01:06)
[2024-01-25] MEDS: cefTRIAXone 1 GM in 0.9 % SODIUM CHLORIDE Mini-bag 100 ML IVPB (03:24)
[2024-01-25 03:27] VITALS: BP 130/80; PULSE 57; RESP 16; TEMP 36; O2SAT 88
[2024-01-25] MEDS: IPRAT-ALBUT 0.5-2.5 MG/3 ML NEB 1 NEB IH ×2 (03:27→07:50)
[2024-01-25 06:34] LABS: HCO3 VBG 36 mmol/L (21-28); PO2 VBG 35.4 mmHG (25-47); pH VBG 7.343 (7.32-7.43)
[2024-01-25 06:35] LABS: Hematocrit 40.4 % (33.0-51.0); Hemoglobin* 12.7 gm/dL (12.0-16.0); Mean Corpuscular HGB Conc 31 gm/dL (32-36); Mean Corpuscular Hemoglobin 31 pg (26-34); Mean Corpuscular Volume 99 fL (80-100); Platelet Count* 194 K/uL (140-440); Red Blood Count 4.07 m/uL (4.00-5.20); White Blood Count* 14.78 K/uL (4.50-11.00)
[2024-01-25 06:36] LABS: PCO2 VBG 67 mmHG (40-50)
[2024-01-25 06:37] LABS: Slide Review Reflex No
[2024-01-25] MEDS: OMEPRAZOLE 20 MG CAPSULE DR 40 MG PO (06:37)
[2024-01-25 06:49] LABS: Chloride* 97 mmol/L (96-114)
[2024-01-25 06:50] LABS: Potassium* 4.6 mmol/L (3.6-5.1); Sodium* 136 mmol/L (135-149)
[2024-01-25 06:52] LABS: Creatinine* 0.8 mg/dL (0.5-1.5); Est. Creatinine Clearance* 44.41; Estimated Glomerular Filt Rate 77 ml/min
[2024-01-25 06:53] LABS: Anion Gap 5 mEq/L (7-15); Blood Urea Nitrogen* 27 mg/dL (7-30); Calcium* 8.8 mg/dL (8.4-10.6); Carbon Dioxide* 34 mmol/L (20-32); Glucose* 133 mg/dL (60-115); Magnesium* 2.2 mg/dL (1.5-2.6)
[2024-01-25 07:00] VITALS: PULSE 67; RESP 20; O2SAT 93
--- NOTE | 2024-01-25 07:18 | PM.IMPN1 ---
Progress Note: A&P Assessment and plan (1) Acute on chronic respiratory failure with hypoxia and hypercapnia: Problem details: Oxygen saturation 55% in ED, tachypneic Initial VBG 7.367 in ED, repeat 7.365. PCO2 57, repeat 58, HC03 remains at 33 CTA chest negative for PE, findings compatible with heart failure pulmonary edema. Superimposed pneumonia not excluded. Nodular areas of consolidation or scarring are noted, recommend follow-up CT in 12 weeks. Pulmonary hypertension Initially placed on 10 L, decreased to 6 L, currently on BiPAP 40 FiO2 with saturations 90-92%. Continue to wean as able RT for pulmonary support Non compliant with home medications, COPD management Status: Acute (2) Community acquired bacterial pneumonia: Problem details: CT reading superimposed pneumonia cannot be excluded Afebrile, mild leukocytosis - resolved, procalcitonin 0.04 Continue ceftriaxone and azithromycin as initiated in ED given clinical presentation Strep pneumo pending, BC x2 pending Status: Acute (3) Acute exacerbation of chronic obstructive pulmonary disease: Problem details: Oxygen dependent however does not use her home oxygen on any regular basis Continue antibiotic management Prednisone 40 mg x5 days, received methylprednisolone in the ED DuoNebs q.i.d., albuterol nebs p.r.n.. Non compliant with nebulizers at home RT for pulmonary support Has inhalers at home that she is noncompliant with as well, discussed Active smoker, cessation discussed Followed by pulmonology Status: Acute (4) Hyperlipidemia: Problem details: Continue statin Status: Acute (5) Obesity (BMI 35.0-39.9 without comorbidity): Problem details: Complicating above Status: Acute (6) Left ventricular hypertrophy due to hypertensive disease: Problem details: Continue amlodipine, atenolol, losartan Followed by Cardiology Status: Acute (7) Tobacco dependence: Problem details: 12-1 PPD Status: Acute (8) Chronic hyponatremia: Problem details: Sodium 133, baseline 133-134, monitor Status: Acute (9) Pulmonary hypertension: Problem details: - sees both Pulmonology and Cardiology as an outpatient - last TTE obtained 02/2022, results below - TTE ordered - CT findings compatible with heart failure and pulmonary edema, pulmonary hypertension - 1 time dose IV Lasix, monitoring response Final Impressions: 1. Normal left ventricular size, moderately increased wall thickness, hyperdynamic global systolic function, calculated EF of 76%. 2. No significant valve disease detected. 3. Right ventricular cavity size is normal, global systolic RV function is normal. 4. Moderately increased estimated pulmonary pressures by tricuspid regurgitation velocity and right atrial pressure (44 mmHg plus RAP). 5. The inferior vena cava is dilated, respiratory size variation less than 50%, consistent with elevated right atrial pressure. 6. Compared with images of the prior study of 03/26/2020, there has been no significant interval change. Status: Acute (10) Weakness: Problem details: Generalize, in setting of above. PT/OT consult Status: Acute (11) Hyperglycemia: Problem details: A1c , previous A1c 5.57 2 years ago Status: Acute Time Spent With Patient Total time spent: Total time spent caring for the patient today was 45 minutes. This includes time spent for the visit reviewing the chart, time spent during the visit, time spent after the visit and documentation and planning in coordination of care. Exam Const: Vital Signs, click to edit/add: Vital Signs - 24 hr 01/24/24 07:48 01/24/24 09:11 01/24/24 11:00 Temperature 98 F 97.3 F L Pulse Rate [Right Pulse Oximeter] 70 75 Respiratory Rate 20 19 Blood Pressure [Ri ght Arm] 145/82 H 113/67 Pulse Oximetry 92 88 Oxygen Delivery Me thod BiPAP Nasal Cannula Oxygen Flow Rate 2 Fraction of Inspir ed Oxygen 0.30 01/24/24 16:45 01/24/24 16:45 01/24/24 16:45 Temperature 97.2 F L Pulse Rate [Right Pulse Oximeter] 78 78 Respiratory Rate 20 20 20 Blood Pressure [Ri ght Arm] 131/65 Pulse Oximetry 90 90 Oxygen Delivery Me thod Nasal Cannula Nasal Cannula Oxygen Flow Rate 2 2 Fraction of Inspir ed Oxygen 0.30 01/24/24 16:45 01/24/24 19:55 01/24/24 19:55 Temperature 98.8 F Pulse Rate [Right Pulse Oximeter] 73 Respiratory Rate 24 Blood Pressure [Ri ght Arm] 132/70 Pulse Oximetry 90 89 90 Oxygen Delivery Me thod Nasal Cannula Oxygen Flow Rate 2.5 Fraction of Inspir ed Oxygen 01/24/24 23:00 01/25/24 00:00 01/25/24 00:00 Temperature 97.9 F Pulse Rate [Right Pulse Oximeter] 60 Respiratory Rate 22 Blood Pressure [Ri ght Arm] 126/68 Pulse Oximetry 90 92 92 Oxygen Delivery Me thod CPAP CPAP Oxygen Flow Rate 3.5 3.5 Fraction of Inspir ed Oxygen 01/25/24 03:27 01/25/24 03:27 Temperature 96.8 F L Pulse Rate [Right Pulse Oximeter] 57 L Respiratory Rate 16 Blood Pressure [Ri ght Arm] 130/80 Pulse Oximetry 88 88 Oxygen Delivery Me thod CPAP Oxygen Flow Rate 4 Fraction of Inspir ed Oxygen Labs Labs: Laboratory Results - last 24 hr 01/24/24 01/24/24 01/25/24 07:45 08:01 06:05 WBC 9.22 14.78 H RBC 4.16 4.07 Hgb 13.1 12.7 Hct 41.5 40.4 MCV 100 99 MCH 32 31 MCHC 32 31 L RDW Coeff of Ezra 12.9 Plt Count 173 194 Neut % (Auto) 93.5 H Lymph % (Auto) 5.3 L [place] % (Auto) 0.7 Eos % (Auto) 0.0 Baso % (Auto) 0.2 Neut # (Auto) 8.60 H Lymph # (Auto) 0.50 L [place] # (Auto) 0.10 Eos # (Auto) 0.00 Baso # (Auto) 0.02 Abs Immat Gran (auto) 0.03 Imm/Tot Granulo (auto) 0.3 VBG pH 7.365 7.343 VBG pCO2 58 H 67 H* VBG pO2 68.2 H 35.4 VBG HCO3 33 H 36 H Sodium 133 L 136 Potassium 4.6 4.6 Chloride 97 97 Carbon Dioxide 32 34 H Anion Gap 4 L 5 L BUN 15 27 Creatinine 0.7 0.8 Estimated Creat Clear 44.41 44.41 Estimated GFR 91 77 Glucose 177 H 133 H Calcium 8.7 8.8 Magnesium 2.2 Procalcitonin 0.04 Lab Acknowledgement Test Added
[2024-01-25] MEDS: predniSONE 20 MG TABLET 40 MG PO (07:50)
[2024-01-25 08:00] VITALS: BP 144/78; PULSE 67; RESP 20; TEMP 36.3; O2SAT 93
--- NOTE | 2024-01-25 08:30 | PC.NURSE ---
Patient pleasant, alert and oriented. Transfers with walker, gait belt and stand by assist of one. O2 sats periodically dropped to the mid 80s on CPap with attached O2 at 4 LPM. Patient denied any SOB at that time. Denied pain. IV to right hand came out during night; catheter intact.
[2024-01-25] MEDS: atenoloL 50 MG TABLET PO (09:14)
[2024-01-25] MEDS: GABAPENTIN 300 MG CAPSULE 600 MG PO (09:14)
[2024-01-25] MEDS: AMLODIPINE 10 MG TABLET PO (09:14)
[2024-01-25] MEDS: ASPIRIN 81 MG TABLET EC PO (09:14)
[2024-01-25] MEDS: SODIUM CHLORIDE 0.9 % (FLUSH) 10 ML SYRINGE 5 ML IVF (09:15)
[2024-01-25] MEDS: LOSARTAN POTASSIUM 50 MG TABLET 25 MG PO (09:15)
[2024-01-25] MEDS: SODIUM CHLORIDE 1 GM TABLET PO (09:15)
--- NOTE | 2024-01-25 11:28 | PM.DS1 ---
DS: Providers Provider Date Seen: 01/25/24 Date of admission: 01/24/24 08:15 Primary care physician: Silver Whalen MD Admitting Clinician: Jude Richardson MD Consults: 01/24/24 05:04 Consult to Physical Therapy [CONS] Routine Comment: Reason(s) for PT Consult:: Balance Assessment Any Restrictions?:: No Restrictions Consult to Respiratory Therapy [CONS] Routine Comment: Reason(s) for RT Consult:: New COPD/Asthma Diag Attending Physician on discharge: Olga Dennis [facility], [facility] Date of Discharge: 01/25/24 DS: Diagnosis Discharge Diagnosis (1) Acute on chronic respiratory failure with hypoxia and hypercapnia: Status: Acute Problem details: Oxygen saturation 55% in ED, tachypneic Initial VBG 7.367 in ED, repeat 7.365. PCO2 57, repeat 58, HC03 remains at 33 CTA chest negative for PE, findings compatible with heart failure pulmonary edema. Superimposed pneumonia not excluded. Nodular areas of consolidation or scarring are noted, recommend follow-up CT in 12 weeks. Pulmonary hypertension Initially placed on 10 L, decreased to 6 L, placed on on BiPAP 40 FiO2 with saturations 90-92%. Eventually weaned off of BiPAP to 1 L per NC. Notably, VBG pCO2 increased to 67 following 2-4 L O2 off of BiPAP. PH unchanged. Serum carbon dioxide 34, baseline for her. RT followed. Non compliant with home medications, COPD management. Discussed with patient and spouse. Will need close outpatient follow-up with PCP. (2) Community acquired bacterial pneumonia: Status: Acute Problem details: CT reading superimposed pneumonia cannot be excluded Afebrile, mild leukocytosis - resolved, procalcitonin 0.04. Strep pneumo pending at time of discharge. BC x2 NGTD. Initiated on ceftriaxone and azithromycin then transition to oral Augmentin at time of discharge. (3) Acute exacerbation of chronic obstructive pulmonary disease: Status: Acute Problem details: Oxygen dependent however does not use her home oxygen on any regular basis Discharged to home to complete oral antibiotic and course of Prednisone 40 mg x5 days (mild bump in WBC noted), received methylprednisolone in the ED. DuoNebs q.i.d., albuterol nebs p.r.n.. Non compliant with nebulizers at home, having not use nebulizer for at least 2 years. Continues to smoke 1 ppd. RT consulted for pulmonary support. Patient is discharged with Breo Ellipta, Incruse inhalers as well as DuoNebs for her nebulizer with new tubing. She has been instructed to use these inhalers daily as prescribed. DuoNebs for at least the next 5 days then as needed. Discussed smoking cessation, medication compliance, COPD management compliance, close outpatient follow-up with PCP and pulmonology. (4) Hyperlipidemia: Status: Acute Problem details: Continue statin (5) Obesity (BMI 35.0-39.9 without comorbidity): Status: Acute Problem details: Complicating above (6) Left ventricular hypertrophy due to hypertensive disease: Status: Acute Problem details: Continue amlodipine, atenolol, losartan Outpatient follow-up with Cardiology recommended (7) Tobacco dependence: Status: Acute Problem details: 1 PPD. also smokes in the home. Discussed with both, smoking cessation, moving smoking habits outdoors in the meantime. (8) Chronic hyponatremia: Status: Acute Problem details: Sodium 133, baseline 133-134 (9) Pulmonary hypertension: Status: Acute Problem details: - sees both Pulmonology and Cardiology as an outpatient - last TTE obtained 02/2022, results below - TTE ordered - CT findings compatible with heart failure and pulmonary edema, pulmonary hypertension - 1 time dose IV Lasix. Patient reports stopping Lasix as she was instructed to do so at some time in the past, unclear why. Recommend outpatient follow-up with PCP, Cardiology. Final Impressions: 1. Normal left ventricular size, moderately increased wall thickness, hyperdynamic global systolic function, calculated EF of 76%. 2. No significant valve disease detected. 3. Right ventricular cavity size is normal, global systolic RV function is normal. 4. Moderately increased estimated pulmonary pressures by tricuspid regurgitation velocity and right atrial pressure (44 mmHg plus RAP). 5. The inferior vena cava is dilated, respiratory size variation less than 50%, consistent with elevated right atrial pressure. 6. Compared with images of the prior study of 03/26/2020, there has been no significant interval change. (10) Weakness: Status: Acute Problem details: Generalize, in setting of above. PT/OT consulted. Progressing back to baseline at time of discharge. (11) Hyperglycemia: Status: Acute Problem details: Morning blood sugars 129-177. A1c 6.0, previous A1c 5.57 2 years ago. Outpatient follow-up with PCP for further management. DS: Summary Hospital Course Hospital Course: 73-year-old female with several chronic comorbidities, poorly managed, non compliant to medications admitted to the medical floor with acute respiratory failure with hypoxia and hypercapnia. Course of care and details as noted above. Discussed importance of compliance with COPD management, heart failure management, medication management. Will need close outpatient follow-up with PCP. Recommend outpatient follow-up with Cardiology and pulmonology as well. Smoking cessation encouraged for patient and her spouse. Status at Discharge Overall status at discharge: patient is back to baseline Time Spent with Patient Time attestation: Total time spent providing and/or coordinating discharge services: Time spent: Greater than 30 minutes Exam Narrative: Exam Narrative: PHYSICAL EXAM General: Pleasant, conversant, NAD Cardiovascular: RRR Pulmonary: Audible expiratory wheezes, mild dyspnea, chronic Neurological: Alert, answering questions appropriately Skin: Warm, dry. Const: Vital Signs, click to edit/add: Vital Signs - 24 hr 01/24/24 16:45 01/24/24 16:45 01/24/24 16:45 Temperature 97.2 F L Pulse Rate [Right Pulse Oximeter] 78 78 Respiratory Rate 20 20 20 Blood Pressure [Ri ght Arm] 131/65 Pulse Oximetry 90 90 Oxygen Delivery Me thod Nasal Cannula Nasal Cannula Oxygen Flow Rate 2 2 Fraction of Inspir ed Oxygen 0.30 01/24/24 16:45 01/24/24 19:55 01/24/24 19:55 Temperature 98.8 F Pulse Rate [Right Pulse Oximeter] 73 Respiratory Rate 24 Blood Pressure [Ri ght Arm] 132/70 Pulse Oximetry 90 89 90 Oxygen Delivery Me thod Nasal Cannula Oxygen Flow Rate 2.5 Fraction of Inspir ed Oxygen 01/24/24 23:00 01/25/24 00:00 01/25/24 00:00 Temperature 97.9 F Pulse Rate [Right Pulse Oximeter] 60 Respiratory Rate 22 Blood Pressure [Ri ght Arm] 126/68 Pulse Oximetry 90 92 92 Oxygen Delivery Me thod CPAP CPAP Oxygen Flow Rate 3.5 3.5 Fraction of Inspir ed Oxygen 01/25/24 03:27 01/25/24 03:27 01/25/24 07:00 Temperature 96.8 F L Pulse Rate [Right Pulse Oximeter] 57 L 67 Respiratory Rate 16 20 Blood Pressure [Ri ght Arm] 130/80 Pulse Oximetry 88 88 Oxygen Delivery Me thod CPAP Oxygen Flow Rate 4 Fraction of Inspir ed Oxygen 01/25/24 07:00 01/25/24 08:00 01/25/24 08:00 Temperature 97.3 F L Pulse Rate [Right Pulse Oximeter] 67 Respiratory Rate 20 20 Blood Pressure [Ri ght Arm] 144/78 H Pulse Oximetry 93 93 93 Oxygen Delivery Me thod Nasal Cannula Nasal Cannula Oxygen Flow Rate 1.5 1.5 Fraction of Inspir ed Oxygen DS: Data Data Completed and Pending Completed studies during hospitalization: Procedures Assistance with Respiratory Ventilation, Less than 24 Consecutive Hours, Continuous Positive Airway Pressure (10/25/22) Introduction of Other Gas into Respiratory Tract, Via Natural or Artificial Opening (03/09/22) Labs on day of discharge: Labs from last 24 hours 01/25/24 01/25/24 07:17 06:05 WBC 14.78 H RBC 4.07 Hgb 12.7 Hct 40.4 MCV 99 MCH 31 MCHC 31 L Plt Count 194 VBG pH 7.343 VBG pCO2 67 H* VBG pO2 35.4 VBG HCO3 36 H Sodium 136 Potassium 4.6 Chloride 97 Carbon Dioxide 34 H Anion Gap 5 L BUN 27 Creatinine 0.8 Estimated Creat Clear 44.41 Estimated GFR 77 Glucose 133 H Hemoglobin A1c 6.0 H Calcium 8.8 Magnesium 2.2 Lab Acknowledgement Test Added Preliminary micro results at discharge 01/24/24 02:30 Blood Culture - Preliminary Blood NO GROWTH AFTER 24 HOURS 01/24/24 02:20 Blood Culture - Preliminary Blood NO GROWTH AFTER [address] scan - chest: Attestation: I have reviewed the pertinent imaging results. Radiologist's impression: CTA of the chest following 95 mL Isovue 370 IV contrast. Comparison: None Findings: Pulmonary arteries: Suboptimal contrast bolus timing. This examination is nondiagnostic for the evaluation of pulmonary embolism. The main pulmonary artery measures 4.1 centimeters. Lungs: Interlobular septal thickening. Small right greater than left effusions. Mild ground-glass. Consolidative opacities in the left perihilar space and [id number]-left lung bases. No pneumothorax. Mediastinum: Cardiomegaly. No acute abnormality appreciated. Lymph nodes: No gross lymphadenopathy. Upper abdomen: Perinephric stranding. Soft tissues: No acute abnormality appreciated. Bones: No acute abnormality appreciated. Impression: 1. Suboptimal contrast bolus timing. This examination is nondiagnostic for the evaluation of pulmonary embolism. 2. Findings compatible with heart failure and pulmonary edema. Superimposed pneumonia not excluded. Nodular areas of consolidation or scarring are noted, recommend follow-up CT in 12 weeks. 3. Pulmonary hypertension. Discharge Plan Discharge Disposition: Home, Self-Care Date of Admission: 01/24/24 08:15 Attending Provider on Discharge: Olga Dennis Primary Care Provider: Silver Whalen Condition: Improved Anticipated Discharge Date/Time: 01/25/24 11:12 Discharge Medications: New prednisone 20 mg Tablet 40 mg PO DAILYWM Qty: 3 0RF fluticasone furoate-vilanterol [Breo Ellipta] 100-25 mcg/dose blister with device 1 inh inhalation DAILY Qty: 1 0RF umeclidinium 62.5 mcg/actuation blister with device 1 inh inhalation DAILY Qty: 30 0RF ipratropium-albuterol 0.5 mg-3 mg(2.5 mg base)/3 mL solution for nebulization 3 ml inhalation Q6H Qty: 90 0RF amoxicillin-pot clavulanate 875-125 mg tablet 1 tab PO BID Qty: 10 0RF Continued amlodipine 10 mg tablet 10 mg PO DAILY Qty: 90 3RF atenolol 50 mg tablet 50 mg PO BID Qty: 180 3RF atorvastatin 20 mg tablet 20 mg PO HS Qty: 90 3RF gabapentin 300 mg capsule 600 mg PO BID Qty: 360 4RF losartan 25 mg tablet 25 mg PO DAILY Qty: 90 3RF cholecalciferol (vitamin D3) 10 mcg (400 unit) capsule 10 mcg PO DAILY aspirin 81 mg capsule 81 mg PO DAILY Discharge Orders: Discharge Order (Routine); Ordered 01/25/24 Ordered By: Olga Dennis Patient Education: How to Stop Smoking (GEN), COPD (Chronic Obstructive Pulmonary Disease) (GEN), Bacterial Pneumonia (GEN) Additional Instructions: As discussed, work on smoking cessation. It is important to take the medications that have been prescribed for you. Complete the antibiotic and prednisone for your current infection. Continue to use the inhalers every day. Continue to use your CPAP and home oxygen as previously prescribed. If you are having difficulty with your portable tank, call the number listed on the tank for assistance. You will need close follow-up with your primary care provider following your hospital stay. Recommend outpatient cardiology and pulmonology follow-up as well- your PCP can assist you with this. Your blood sugar was also noted to be high. Your A1c is 6.0. You will need to follow-up with your primary care provider for further management. Activity Level: Activity as Tolerated Discharge Diet: Heart Healthy (2 gm sodium, low fat) Follow Up Appointments: Silver Whalen MD [Primary Care Provider] - (3-5 days post hospital follow up, COPD exacerbation, CAP, respiratory failure with hypoxia and hypercapnia, smoking cessation, hyperglycemia, noncompliance with medication management Recommend Cardio/pulmonology follow-up) Forms: [employer] Info Instructions
[2024-01-25 12:00] VITALS: BP 138/80; PULSE 64; RESP 20; TEMP 36.8; O2SAT 87
--- NOTE | 2024-01-25 15:11 | PC.NURSE ---
Discharge: Patient pleasant and cooperative, A&O. VSS, afebrile, SpO2 maintained above 85% on 0.5L O2. Patient denies pain this shift. IV removed with tip intact. Discharged to home via wheelchair with . Discharge information given, all questions answered.
[2024-01-25 15:50] LABS: Strep pneumoniae Ag, Urine Negative (Negative)
== END 2024-01-25 14:40 | disposition home or self-care (01) | DRG 189 ==
LOC: ED 02:20 → MEDSURG 03:08
PROVIDERS: Physician Assistant; Student in an Organized Health Care Education/Training Program; Admitting Provider Family Medicine; Emergency Provider Family Medicine; PCP Family Medicine; Visit Provider Family Medicine
DX: J96.21 Acute and chronic respiratory failure with hypoxia (principal); I50.33 Acute on chronic diastolic (congestive) heart failure; J15.9 Unspecified bacterial pneumonia; J44.1 Chronic obstructive pulmonary disease with (acute) exacerbation; E87.1 Hypo-osmolality and hyponatremia; J44.0 Chronic obstructive pulmonary disease with (acute) lower respiratory infection; J96.22 Acute and chronic respiratory failure with hypercapnia; E66.9 Obesity, unspecified; Z68.39 Body mass index [BMI] 39.0-39.9, adult; I27.20 Pulmonary hypertension, unspecified; I11.0 Hypertensive heart disease with heart failure; Z91.148 Patient's other noncompliance with medication regimen for other reason; R73.9 Hyperglycemia, unspecified; G47.33 Obstructive sleep apnea (adult) (pediatric); Z99.89 Dependence on other enabling machines and devices; Z99.81 Dependence on supplemental oxygen; Z91.199 Patient's noncompliance with other medical treatment and regimen due to unspecified reason; F17.210 Nicotine dependence, cigarettes, uncomplicated; E78.5 Hyperlipidemia, unspecified; R53.1 Weakness; Z85.43 Personal history of malignant neoplasm of ovary; Z86.010 Personal history of colon polyps
CPT/HCPCS: 36415; 36600; 71045; 71275; 80048; 82803; 83036; 83735; 83880; 84145; 84484; 85025; 85027; 87040; 87631; 87899; 93005; 93306; 94640; 94660; 94761; 97116; 97162; 99285; 99291; A9270; G0378; J0456; J0696; J1940; J2919; J3475; J7050; J7512; Q9967

== ENCOUNTER 2024-02-05 20:21 | Emergency (ER) | payer MEDICARE, BC, SELFPAY ==
[2024-02-05] VITALS (14 sets, daily range): BP systolic 118–165; BP diastolic 61–100; PULSE 70–77; RESP 24–28; TEMP 36.9; O2SAT 45–97; BMI 37.4
--- NOTE | 2024-02-05 20:45 | ED_ITS ---
HPI - General Adult General Time Seen by Provider: 20:45 Date Seen: 02/05/24 Chief complaint: Shortness of Breath/Dyspnea Stated complaint: Low O2 Time Seen by Provider: 02/05/24 20:45 Source: patient and RN notes reviewed Mode of arrival: ambulatory Limitations: no limitations History of Present Illness HPI narrative: This 73-year-old female is coming in with low oxygen saturations and increasing shortness of breath at home. Patient is a little bit of a non reliable historian. She reportedly does have oxygen at home, possibly only using with her CPAP at night. She was recently hospitalized here on January 23 through January 24, initial O2 sats were in the 50s on arrival to the ER. This is a nicotine dependent patient with both her and her continuing to smoke in the house. She has maybe been coughing, her states she has. It does not sound like there was any fevers or any night sweats. She denies any chest pain. No increased edema. During that recent brief hospitalization, chest CT was thought to be consistent with pulmonary edema and congestive heart failure, underlying pneumonia could not be ruled out, nondiagnostic as far as pulmonary emboli. She initially got Rocephin and IV Zithromax, transitioned to outpatient Augmentin which she states she completed. She also was given IV steroids and then given oral prednisone, did complete a 5 day course of 40 mg of prednisone outpatient. She states that they gave her a couple types of nebulizers, I believe she was discharged with the Breo Ellipta, DuoNebs and umeclidinium. She believes she is doing the DuoNebs maybe 2 maybe 3 times a day, she might have albuterol at home too. She got 1 dose of IV Lasix in the hospital was not sent home on any, she had told the hospitalist that she was told to stop Lasix. Patient has significant underlying COPD, obstructive sleep apnea, pulmonary hypertension. Last echo that I see was from 2021 and admit reports but do see an updated 1 from 01/24/2024, refer to report in Cardiology section of results. Related Data Home Medications ?Medication ?Instructions ?Recorded ?Confirmed aspirin 81 mg capsule 81 mg PO DAILY 03/09/22 01/30/24 cholecalciferol (vitamin D3) 10 10 mcg PO DAILY 07/20/22 01/30/24 mcg (400 unit) capsule ipratropium 0.5 mg-albuterol 3 mg 3 ml inhalation Q6H PRN 01/30/24 (2.5 mg base)/3 mL nebulization soln oxygen-air delivery systems 01/30/24 01/30/24 oxygen-air delivery systems 01/30/24 01/30/24 Previous Rx's ?Medication ?Instructions ?Recorded amlodipine 10 mg tablet 10 mg PO DAILY #90 tabs 04/30/23 atenolol 50 mg tablet 50 mg PO BID #180 tabs 04/30/23 atorvastatin 20 mg tablet 20 mg PO HS #90 tabs 04/30/23 gabapentin 300 mg capsule 600 mg (2 x 300 mg) PO BID #360 04/30/23 caps losartan 25 mg tablet 25 mg PO DAILY #90 tabs 04/30/23 fluticasone furoate 100 1 inh inhalation DAILY #1 ea 01/25/24 mcg-vilanterol 25 mcg/dose inhalation powder (Breo Ellipta) umeclidinium 62.5 mcg/actuation 1 inh inhalation DAILY #30 ea 01/25/24 blister powder for inhalation Allergies Allergy/AdvReac Type Severity Reaction Status Date / Time duloxetine Allergy Mild itchy Verified 01/30/24 13:37 Review of Systems Status of ROS: Reports: 6 or more systems reviewed and unremarkable except as noted in History and below [facility] Medical History Hyperlipidemia (05/05/11) ?E78.5 - Hyperlipidemia, unspecified (ICD-10) Obesity (BMI 35.0-39.9 without comorbidity) ?E66.9 - Obesity, unspecified (ICD-10) BRCA2 positive ?Z15.01 - Genetic susceptibility to malignant neoplasm of breast (ICD-10) ?Z15.09 - Genetic susceptibility to other malignant neoplasm (ICD-10) Toenail fungus ?B35.1 - Tinea unguium (ICD-10) Health care directive on file ?Z78.9 - Other specified health status (ICD-10) Peripheral neuropathy ?G62.9 - Polyneuropathy, unspecified (ICD-10) Chronic hyponatremia ?E87.1 - Hypo-osmolality and hyponatremia (ICD-10) MONIKA on CPAP ?G47.33 - Obstructive sleep apnea (adult) (pediatric) (ICD-10) ?Z99.89 - Dependence on other enabling machines and devices (ICD-10) CO2 retention ?E87.2 - Acidosis (ICD-10) Polyp of colon (05/05/11) ?K63.5 - Polyp of colon (ICD-10) Pneumothorax ?J93.9 - Pneumothorax, unspecified (ICD-10) Obesity (05/05/11) ?E66.9 - Obesity, unspecified (ICD-10) Malignant neoplasm of ovary (2018) ?C56.9 - Malignant neoplasm of unspecified ovary (ICD-10) Ischemic colitis ?K55.9 - Vascular disorder of intestine, unspecified (ICD-10) Hypertension (05/05/11) ?I10 - Essential (primary) hypertension (ICD-10) Fracture of rib of right side ?S22.31XA - Fracture of one rib, right side, initial encounter for closed fracture (ICD-10) Contusion of back ?S20.229A - Contusion of unspecified back wall of thorax, initial encounter (ICD-10) Chemotherapy-induced neuropathy ?G62.0 - Drug-induced polyneuropathy (ICD-10) ?T45.1X5A - Adverse effect of antineoplastic and immunosuppressive drugs, initial encounter (ICD-10) Chemotherapy-induced nausea and vomiting ?R11.2 - Nausea with vomiting, unspecified (ICD-10) ?T45.1X5A - Adverse effect of antineoplastic and immunosuppressive drugs, initial encounter (ICD-10) Surgical History Status post dissection of cervical lymph nodes ?Z98.890 - Other specified postprocedural states (ICD-10) History of hysterectomy ?Z90.710 - Acquired absence of both cervix and uterus (ICD-10) History of colonoscopy ?Z98.890 - Other specified postprocedural states (ICD-10) Family History Father Coronary artery disease High blood pressure Mother Coronary artery disease Breast cancer Social History Narrative: , lives with in [place]. Two adult children. 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 Alcohol use 4-5 drinks per week, no history of ETOH withdrawal. No recreational drug use. 1/2ppd smoker What is your current living situation?: I presently have a place to live Problems where you live: no known problems Problems where you live details: N/A In the past 12 months, utilities in danger of being shut off: no In past 12 months, lack of transportation kept you from medical appts, meetings, work, or getting things needed for daily living: no In the past 12 mos, have been you worried that your food would run out before you had money to buy more?: never true In the past 12 mos, the food you bought just didn't last and you didn't have money to buy more?: never true Highest level of school completed/degree received: Associate degree: occupational, technical, vocational program Smoking Status: Current every day smoker What tobacco products do you use: cigarettes Smoking packs per day: 0.5 Smoking cigarettes per day: 10.0 Years smoked: 50 Smoking pack-years: 25.00 Do you use any of these nicotine containing products: None Second hand tobacco smoke exposure: Yes How often do you have a drink containing alcohol: 2-4 times a month Alcohol type: wine How many standard drinks containing alcohol do you have on a typical day: 1 or 2 How often do you have six or more drinks on one occasion: Never AUDIT-C Alcohol total score: 2 Non-prescribed substance use: denies use Caffeine: Yes How often does anyone, including family, friends and others, physically hurt you : never How often does anyone, including family, friends and others, insult or talk down to you: never How often does anyone, including family, friends and others, threaten you with harm: never How often does anyone, including family, friends and others, scream or curse at you: never Little interest or pleasure in doing things: not at all Feeling down, depressed, or hopeless: not at all Are you using contraception or practicing any form of control: No service: No Exam Const: Vital Signs, click to edit/add: Vital Signs - 24 hr 02/05/24 21:05 02/05/24 21:06 02/05/24 21:15 Temperature Pulse Rate 70 73 73 Pulse Rate [Pulse Oximeter] Respiratory Rate Blood Pressure 131/63 Blood Pressure [Ri ght Upper Arm] Pulse Oximetry 87 L 90 82 L Oxygen Delivery Me thod OxyMask OxyMask OxyMask Oxygen Flow Rate 15 15 15 Fraction of Inspir ed Oxygen 02/05/24 21:19 02/05/24 21:19 02/05/24 21:34 Temperature 98.4 F Pulse Rate Pulse Rate [Pulse Oximeter] 77 Respiratory Rate 24 Blood Pressure Blood Pressure [Ri ght Upper Arm] 118/61 Pulse Oximetry 81 L 81 L 45 L Oxygen Delivery Me thod OxyMask Room Air Oxygen Flow Rate 10 Fraction of Inspir ed Oxygen 02/05/24 21:43 02/05/24 21:45 02/05/24 22:02 Temperature Pulse Rate 73 70 71 Pulse Rate [Pulse Oximeter] Respiratory Rate 28 H 26 H Blood Pressure 165/80 H 146/91 H Blood Pressure [Ri ght Upper Arm] Pulse Oximetry 97 92 92 Oxygen Delivery Me thod BiPAP BiPAP BiPAP Oxygen Flow Rate 60 Fraction of Inspir ed Oxygen 60 60 02/05/24 22:15 02/05/24 22:22 02/05/24 22:35 Temperature Pulse Rate 72 74 75 Pulse Rate [Pulse Oximeter] Respiratory Rate 26 H 26 H Blood Pressure 157/100 H Blood Pressure [Ri ght Upper Arm] Pulse Oximetry 93 94 90 Oxygen Delivery Me thod BiPAP BiPAP BiPAP Oxygen Flow Rate Fraction of Inspir ed Oxygen 60 60 60 Patient is alert interactive, somewhat tachypneic but still able to talk to me in phrases. She overall looks quite well for somebody coming in with 45% oxygenation with good waveform. She went up into the 70% with nasal cannula oxygen, on non-rebreather she is now up into the mid 80s and states she feels better. She does smell of cigarette smoke. Sclera clear, symmetrical facial function. Neck is thick, cannot tell if there is jugular venous distension she is sitting straight up, does not want a recliner at all. Certainly no cervical adenopathy or thyromegaly masses or nodules. Lungs sound clear but there are distant breath sounds, very prolonged expiratory phase. CV is regular, do not appreciate murmur but heart sounds are distant. Sounds as if she has a normal S1 and S2. Abdomen is obese, soft, nontender. She has a compression stocking on the left leg, no pitting edema on the right. Documenting provider has reviewed patient's vital signs: yes Course Course ED Course: This patient has critical oxygenation status. May need to initiate BiPAP quickly. Will establish an IV, get full complement of labs looking at cardiac markers, D-dimer, venous blood gas. She certainly could have pneumonia, suspect that this is a component of COPD but also suspect that there is CHF. She is unclear whether not she wants to be full code and be intubated. I have tried explaining this to her. She in her do not seem to be giving me definitive answers despite my questioning. I have discussed the intubation process, what it would mean and potential complications. She may ultimately need this to stabilize her and may have to address this more urgently if needed. Will try to look in her records. Her states that there advanced directives have been placed in the records. I will be ordering IV Lasix, 40 mg as she is not on anything chronically, 125 mg IV Solu-Medrol and we will start with a DuoNeb as well. Reevaluation(s) Time of Reevaluation #1: 21:34 Reevaluation #1: Having nursing staff initiate BiPAP. Patient actually is on 10 L non- rebreather, O2 sats mid 80s. She had a DuoNeb, lungs actually are clear anteriorly but prolonged expiratory phase. She states she feels better. I have ordered 40 mg IV Lasix as well as 125 mg IV Solu-Medrol. She does have interstitial changes on her portable chest x-ray, worry that this could be some congestive changes as was the concern on her CT. Do not feel that she stable to go over to get a repeat CT scan. I have talked to her in her , she has been to [facility] before, will see if we can get her transferred. Did talk to our hospitalist and she is ill enough that she really should not stay here. She may require intubation, we will see if she tolerates and improved some with the BiPAP. Dr. Conner the hospitalist was able to find documentation that she is full code in the chart. She has also been listed as full code the last 3 hospitalizations. Time of Reevaluation #2: 22:36 Reevaluation #2: Follow-up blood gas shows her bicarb is now down to 52, was 69 on arrival. Her venous pH has stabilized at 7.4. Have let her know in the plan of transfer to [facility], initiated antibiotics with vancomycin and cefepime to cover for failed outpatient treatment of community-acquired pneumonia. Will also update CT PE protocol. Of note, the contrast bolus was not adequate on her CT last hospitalization in thus do think we need to repeat this. Chest x-ray certainly looks to be pulmonary edema. Nursing staff will let us know if patient has not initiate any urination within 60 minutes the IV Lasix. Note 600ml void at 2240pm per nursing staff. Time of Reevaluation #3: 22:55 Reevaluation #3: Patient is tolerating the BiPAP quite well. She states she is feeling better. FiO2 has been titrated, currently down to 50%, satting at 94%, nursing staff is going to continue to try to titrate down. Patient has become more hypoxic when they went below 50%. With the urine volume that she produce, I am hopeful that we will be able to titrate further. I understand that [facility] is calling for report, we will proceed with transfer. She has not gotten her chest CT PE protocol but we will not delay transfer. I do not see that she needs intubation prior to transfer as she is stabilizing on the BiPAP. I do think she needs to proceed with transfer so she can have multi-specialty cares including pulmonology and Cardiology. Consultations Consultation #1: Reviewed with hospitalist Dr. Brown at [facility]. He does want her treated for CAP failed outpatient and recent hospitalization, will use cefepime and vancomycin per his request. There may be a bed delay, will attempt to get CT PE protocol if able to here. Time: 22:07 Vital Signs Vital signs: Initial Vital Signs Pulse Rate 70 02/05/24 21:05 Blood Pressure 131/63 02/05/24 21:05 Blood Pressure Mean 85 02/05/24 21:05 Pulse Oximetry 87 L 02/05/24 21:05 Oxygen Delivery Method OxyMask 02/05/24 21:05 Oxygen Flow Rate 15 02/05/24 21:05 Vital Signs Pulse Rate 70 02/05/24 21:05 Blood Pressure 131/63 02/05/24 21:05 Pulse Oximetry 87 L 02/05/24 21:05 Oxygen Delivery Method OxyMask 02/05/24 21:05 Oxygen Flow Rate 15 02/05/24 21:05 Temperature 98.4 F 02/05/24 21:34 Pulse Rate 75 02/05/24 22:35 Respiratory Rate 26 H 02/05/24 22:35 Blood Pressure 157/100 H 02/05/24 22:22 Pulse Oximetry 90 02/05/24 22:35 Oxygen Delivery Method BiPAP 02/05/24 22:35 Oxygen Flow Rate 60 02/05/24 22:02 Fraction of Inspired Oxygen 60 02/05/24 22:35 Medications Administered Medications: Generic Name Dose Route Start Last Admin Trade Name Freq PRN Reason Stop Dose Admin Cefepime HCl 2 gm/ Sodium 100 mls @ 200 mls/hr 02/05/24 22:17 02/05/24 22:41 Chloride IVPB 02/05/24 22:18 200 mls/hr ONCE ONE Administration Discontinued Medications Generic Name Dose Route Start Last Admin Trade Name Freq PRN Reason Stop Dose Admin Albuterol/Ipratropium 1 neb 02/05/24 20:55 02/05/24 21:00 Iprat-Albut 0.5-2.5 Mg/3 Ml Neb IH 02/05/24 20:56 1 neb ONCE ONE Administration Furosemide 40 mg 02/05/24 21:14 02/05/24 21:39 Furosemide 10 Mg/Ml Inj IVP 02/05/24 21:15 40 mg ONCE ONE Administration Methylprednisolone Sodium Succinate 125 mg 02/05/24 20:55 02/05/24 21:39 Methylprednisolone Sod Succ 62.5 Mg/Ml (125) IVP 02/05/24 20:56 125 mg ONCE ONE Administration Medical Decision Making Medical Records Medical records reviewed: Yes I reviewed the patient's medical records Lab Data Lab results reviewed: Yes I reviewed the patient's lab results Lab results narrative: Patient is venous bicarb was in the upper 50s initially last visit, discharged at 67. She is 69 on arrival for bicarb today but her venous pH is now mildly acidotic at 7.307. No proBNP on last hospitalization from January 23 was 2630. Labs: Lab Results 02/05/24 02/05/24 02/05/24 Range/Units 21:04 21:04 21:04 WBC 14.46 H (4.50-11.00) K/uL RBC 4.26 (4.00-5.20) m/uL Hgb 13.0 (12.0-16.0) gm/dL Hct 44.2 (33.0-51.0) % MCV 104 H (80-100) fL MCH 31 (26-34) pg MCHC 29 L (32-36) gm/dL RDW Coeff of Ezra 14.3 (11.5-15.5) % Plt Count 316 (140-440) K/uL Neut % (Auto) 84.0 H (42.0-72.0) % Lymph % (Auto) 7.5 L (20-44) % Mckinley % (Auto) 5.9 (0.0-11.0) % Eos % (Auto) 1.5 (0.0-7.0) % Baso % (Auto) 0.1 (0.0-3.0) % Neut # (Auto) 12.10 H (1.7-7.0) K/uL Lymph # (Auto) 1.10 (0.90-2.90) K/uL Mckinley # (Auto) 0.90 (0.00-0.90) K/UL Eos # (Auto) 0.20 (0.00-0.50) K/uL Baso # (Auto) 0.00 (0.00-0.30) K/uL Abs Immat Gran (auto) 0.10 (0.00-0.30) K/uL Imm/Tot Granulo (auto) 1.0 % D-Dimer Quant (PE/DVT) 2.72 H (0.00-0.50) ug/ml VBG pH 7.307 L (7.32-7.43) VBG pCO2 69 H* (40-50) mmHG VBG pO2 < 30.1 (25-47) mmHG VBG HCO3 35 H (21-28) mmol/L Sodium 135 (135-149) mmol/L Potassium 5.0 (3.6-5.1) mmol/L Chloride 97 (96-114) mmol/L Carbon Dioxide 34 H (20-32) mmol/L Anion Gap 4 L (7-15) mEq/L BUN 27 (7-30) mg/dL Creatinine 1.0 (0.5-1.5) mg/dL Estimated GFR 59 ml/min Glucose 121 H (60-115) mg/dL Lactate 1.2 (0.5-1.9) mmol/L Calcium 8.5 (8.4-10.6) mg/dL Total Bilirubin 0.9 (0.1-1.5) mg/dL AST 25 (12-35) U/L ALT 24 (4-35) U/L Alkaline Phosphatase 99 (40-150) U/L Troponin I < 0.01 L Cancelled (0.01-0.04) ng/mL C-Reactive Protein 4.6 H (0.5-1.0) mg/dL NT-Pro-B Natriuret Pep 3250 pg/mL Total Protein 7.6 (6.0-8.3) g/dL Albumin 4.2 (3.3-5.0) g/dL Procalcitonin 0.05 Cancelled (<0.50) ng/mL SARS-CoV-2 (PCR) (Negative) Influenza Type A (PCR) (Negative) Influenza Type B (PCR) (Negative) RSV (PCR) (Negative) 02/05/24 02/05/24 Range/Units 21:10 22:23 WBC (4.50-11.00) K/uL RBC (4.00-5.20) m/uL Hgb (12.0-16.0) gm/dL Hct (33.0-51.0) % MCV (80-100) fL MCH (26-34) pg MCHC (32-36) gm/dL RDW Coeff of Ezra (11.5-15.5) % Plt Count (140-440) K/uL Neut % (Auto) (42.0-72.0) % Lymph % (Auto) (20-44) % Mckinley % (Auto) (0.0-11.0) % Eos % (Auto) (0.0-7.0) % Baso % (Auto) (0.0-3.0) % Neut # (Auto) (1.7-7.0) K/uL Lymph # (Auto) (0.90-2.90) K/uL Mckinley # (Auto) (0.00-0.90) K/UL Eos # (Auto) (0.00-0.50) K/uL Baso # (Auto) (0.00-0.30) K/uL Abs Immat Gran (auto) (0.00-0.30) K/uL Imm/Tot Granulo (auto) % D-Dimer Quant (PE/DVT) (0.00-0.50) ug/ml VBG pH 7.400 (7.32-7.43) VBG pCO2 53 H (40-50) mmHG VBG pO2 34.5 (25-47) mmHG VBG HCO3 33 H (21-28) mmol/L Sodium (135-149) mmol/L Potassium (3.6-5.1) mmol/L Chloride (96-114) mmol/L Carbon Dioxide (20-32) mmol/L Anion Gap (7-15) mEq/L BUN (7-30) mg/dL Creatinine (0.5-1.5) mg/dL Estimated GFR ml/min Glucose (60-115) mg/dL Lactate (0.5-1.9) mmol/L Calcium (8.4-10.6) mg/dL Total Bilirubin (0.1-1.5) mg/dL AST (12-35) U/L ALT (4-35) U/L Alkaline Phosphatase (40-150) U/L Troponin I (0.01-0.04) ng/mL C-Reactive Protein (0.5-1.0) mg/dL NT-Pro-B Natriuret Pep pg/mL Total Protein (6.0-8.3) g/dL Albumin (3.3-5.0) g/dL Procalcitonin (<0.50) ng/mL SARS-CoV-2 (PCR) Negative SARS-CoV-2 (Negative) Influenza Type A (PCR) Negative PCR FLU A (Negative) Influenza Type B (PCR) Negative PCR FLU B (Negative) RSV (PCR) Negative PCR RSV (Negative) Imaging Data Chest x-ray: Attestation: I have reviewed the pertinent imaging results. My impression: My initial review lead me to believe there was fluid overload with CHF, did review the final radiology over read. Radiologist's impression: Patient: RACHEL CHUN Facility:?[facility] RIS Patient ID:?[id number] Site Patient ID:?[id number]. Site :?[id number] Study:?XRay-Chest PORTABLE-02/05/2024 9:10:55 PM Ordering Physician:?Suchomel-Garcia Deborah Final Report: INDICATION: Hypoxia TECHNIQUE: Chest radiograph 1 view COMPARISON: 01/24/2024 FINDINGS: The sensitivity and specificity of the exam are severely limited by the patient`s body habitus. Mediastinum: The mediastinum is normal in appearance. Moderate stable cardiomegaly is noted. Lung: Small lung volumes are present with moderate bilateral airspace infiltrates which may be due to pulmonary edema. No sign of pleural effusion seen. No pneumothorax is identified. Bone and Soft tissue: Unremarkable for age. IMPRESSIONS: 1. Small lung volumes are present with moderate bilateral airspace infiltrates which may be due to pulmonary edema. 2. Moderate stable cardiomegaly is noted. Dictated by Fortunato Baires MD @ 02/05/2024 9:17:36 PM Dictated by: Fortunato Baires MD @ 02/05/2024 21:17:47 (Electronic Signature) ECG Data Attestation: I personally reviewed and interpreted this ECG as follows: (Normal sinus rhythm, 74 beats per minute. Low-voltage QRS. Poor R-wave progression anterior precordial leads without any definitive ST segment changes or T-wave changes outside of a flipped T-wave in V1. QT corrected 426 milliseconds.) Critical Care Time Critical Care Time Critical Care Time: Yes Attestation: The patient required my highest level preparedness to intervene emergently and I personally spent this critical care time directly and personally managing the patient. This critical care time included: Obtaining a history; Examining the patient; Pulse oximetry; Ordering and reviewing of studies; Arranging urgent treatment with development of a management plan; Evaluation of patients response to treatment; Frequent reassessment discussions with other providers. This critical care time was performed to assess and manage the high probability of imminent life-threatening deterioration that could result in multiorgan failure. It was exclusive of separate billable procedures and treating other patients and teaching time. Total Critical Care Time in Minutes: 160 Discharge Plan Discharge Clinical Impression: Tobacco dependence, Acute on chronic respiratory failure with hypoxia and hypercapnia, COPD exacerbation Congestive heart failure Qualifiers: Heart failure type: unspecified Heart failure chronicity: unspecified Qualified Code(s): I50.9 - Heart failure, unspecified Patient Disposition: Xfer [facility] Discharge Location: [facility] Prescriptions: No Action amlodipine 10 mg tablet 10 mg PO DAILY Qty: 90 3RF atenolol 50 mg tablet 50 mg PO BID Qty: 180 3RF atorvastatin 20 mg tablet 20 mg PO HS Qty: 90 3RF gabapentin 300 mg capsule 600 mg PO BID Qty: 360 4RF losartan 25 mg tablet 25 mg PO DAILY Qty: 90 3RF cholecalciferol (vitamin D3) 10 mcg (400 unit) capsule 10 mcg PO DAILY ipratropium-albuterol 0.5 mg-3 mg(2.5 mg base)/3 mL solution for nebulization 3 ml inhalation Q6H PRN (DME) oxygen-air delivery systems Device See Rx Instructions .ROUTE Rx Instructions: As directed (DME) oxygen-air delivery systems Device See Rx Instructions .ROUTE Rx Instructions: As directed aspirin 81 mg capsule 81 mg PO DAILY fluticasone furoate-vilanterol [Breo Ellipta] 100-25 mcg/dose blister with device 1 inh inhalation DAILY Qty: 1 0RF umeclidinium 62.5 mcg/actuation blister with device 1 inh inhalation DAILY Qty: 30 0RF Stand Alone Forms: [facility] Info Instructions
--- NOTE | 2024-02-05 20:47 | CRLHL7_ITS ---
For Patients: As a result of the Cures Act, medical imaging exams and procedure reports are released immediately into your electronic medical record. You may view this report before your referring provider. If you have questions, please contact your health care provider. INDICATION: Hypoxia TECHNIQUE: Chest radiograph 1 view COMPARISON: 01/24/2024 FINDINGS: The sensitivity and specificity of the exam are severely limited by the patient`s body habitus. Mediastinum: The mediastinum is normal in appearance. Moderate stable cardiomegaly is noted. Lung: Small lung volumes are present with moderate bilateral airspace infiltrates which may be due to pulmonary edema. No sign of pleural effusion seen. No pneumothorax is identified. Bone and Soft tissue: Unremarkable for age. IMPRESSIONS: 1. Small lung volumes are present with moderate bilateral airspace infiltrates which may be due to pulmonary edema. 2. Moderate stable cardiomegaly is noted. Dictated by Fortunato Baires MD @ 02/05/2024 9:17:36 PM Dictated by: Fortunato Baires MD @ 02/05/2024 21:17:47 (Electronically Signed)
[2024-02-05] MEDS: IPRAT-ALBUT 0.5-2.5 MG/3 ML NEB 1 NEB IH (21:00)
[2024-02-05 21:10] LABS: HCO3 VBG 35 mmol/L (21-28); PO2 VBG < 30.1 mmHG (25-47); pH VBG 7.307 (7.32-7.43)
[2024-02-05 21:14] LABS: Basophils Percent Auto 0.1 % (0.0-3.0); Eosinophils Percent Auto 1.5 % (0.0-7.0); Hematocrit 44.2 % (33.0-51.0); Lymphocytes Percent Auto 7.5 % (20-44); Mean Corpuscular HGB Conc 29 gm/dL (32-36); Mean Corpuscular Hemoglobin 31 pg (26-34); Mean Corpuscular Volume 104 fL (80-100); Monocytes Percent Auto 5.9 % (0.0-11.0); Platelet Count* 316 K/uL (140-440); RDW Coefficient of Variation % 14.3 % (11.5-15.5); Red Blood Count 4.26 m/uL (4.00-5.20); White Blood Count* 14.46 K/uL (4.50-11.00)
[2024-02-05 21:15] LABS: PCO2 VBG 69 mmHG (40-50)
[2024-02-05 21:18] LABS: Slide Review Reflex No
--- OUTSIDE RECORDS SUMMARY | 2024-02-05 21:19 | XMS_ITS | Clinical Summary ---
Author Organization [facility] Address [place], [place] [address] Care Team Providers Care Music Therapy Teacher Name Role Phone Silver Whalen MD Primary Care Provider [phone] Opal Alcantara MD Unavailable [phone] Nurses, Advanced Heart Failure Unavailable + Allergies [...] and unspecified hyperlipidemia 11/17/2006 Encounters Date Type Department Care Team Description 01/24/2024 3:00 PM CDT Ancillary Procedure [facility] at [facility] [address] [place] [address] from Last 3 Months Immunizations Name Administration [...] Lymphoma Mother Other Other no colon or obstetrics gynecology physician ecological cancers. no premature coronary artery disease. [...] Description 03/21/2024 9:50 AM CDT Office Visit [facility] [address] [place] [address] Oni Shaw MD [address] [address] Health Maintenance Due Date Last Done Comments Depression screening for age 12+ 1961 Hepatitis C screening for ag e 18-79 1967 Medicare Wellness for age 65+ 2014 Pneumococcal series for age 65+ (2 of 2 - PCV) 10/27/2015 10/27/2014 Mammogram for age 45-75 03/10/2021 03/10/20 20 (Completed outside of [facility]), 07/09/2008 Tetanus booster 05/05/2021 05/05/2011, 12/12/2002 COVID-19 vaccine series ( season) 2023 07/14/2022, 01/31/2022, 07/19/2021, Additional history [...] age 65+ Completed 2018 (Completed outside of [facility]) Medical Devices Implanted Type Area Extrusion Die Corrector Device Identifier Shelf Expiration Date Model / Serial / Lot Adhesion Barrier 5x6in Seprafilm Absorb - [id number] Implanted:Qty: 1 on 07/11/2018 by Annamarie Massey MD at [facility] [employer] 05/10/2019 4301-02# / / [id number] Adhesion Barrier 5x6in Seprafilm Absorb - [id number] Implanted:Qty: 2 on 07/11/2018 [facility] 09/09/2019 4301-02# / / [id number] Procedures Procedure Name Priority Date/Time Associated Diagnosis Comments ECHO TTE COMPLETE WO CONTRAST Routine 01/24/2024 5:23 PM CDT Hypoxic respiratory failure (HC) CHOLESTEROL,TOTAL Routine 10/25/2020 1:0 2 PM PORTAL ARCHITECT 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) Encounter for examination for normal comparison and control in clinical research program COLONOSCOPY 01/02/2018 11:48 AM CDT XR MAMMO BILAT SCREEN FFDM (IA) Routine 07/09/2008 8:31 AM CDT Other Screening Mammogram from Last 3 Months or Most Recently Relevant to Health Maintenance Results * ECHO TTE COMPLETE WO CONTRAST (01/24/2024 5:23 PM CDT) AORTIC VALVE MEAN PG 9 mmHg EJECTION FRACTION 77 % PEAK TR VELOCITY 2.9 m/s LVEDD 4.4 cm EJECTION FRACTION 70 - 75% Anatomical Region Laterality Modality Ultrasound 01/24/2024 3:30 PM CDT Narrative 01/24/2024 5:52 PM CDT ECHOCARDIOGRAM MONIK GALLEGO ? Accession#: ?? [id number] : ?1950 73 years Study Date: ?? 01/24/2024 3:30:55 PM Gender: F ?BP: ? 113/67 mmHg Height: 165.00 cm ?BSA: ?2.14 m? ? ? Weight: 109.00 kg ?Tech: ? MJS ? Referring MD: ROBERT RUIZ Site: ? [facility] Reading Location: [facility] Patient Location: Outpatient. Procedure: 2D, Color Doppler and Spectral Doppler. Indication for study: RESP FAILURE Cardiac Rhythm: Normal sinus.Study quality: Good. Final Impressions: 1. Normal LV size, not well visualized wall thickness, hyperdynamic global systolic function with an estimated EF of 70 - 75%. 2. Mildly enlarged left atrium. 3. Right ventricular cavity size is normal, global systolic RV function is normal. 4. The aortic valve is not well visualized, no stenosis and no regurgitation. 5. The mitral valve is normal, no mitral regurgitation. 6. Moderately increased estimated pulmonary pressures by tricuspid regurgitation velocity and right atrial pressure (35 mmHg plus RAP). 7. No pericardial effusion. 8. Severely elevated right atrial pressure. Chamber Sizes and Function Normal left ventricular size, not well visualized wall thickness, hyperdynamic global systolic function with an estimated EF of 70 - 75%. No definite resting regional wall motion abnormality seen. Left atrial size is mildly enlarged. Right ventricular cavity size is normal, global systolic RV function is normal. The right atrium is mildly enlarged. Right atrial pressure is severely elevated. Right atrial area is 22 cm? ? ?. The pulmonary artery is of normal size and origin. The sinus of Valsalva is normal sized. The ascending aorta is normal sized. Valves, RV Pressures and Diastolic Function The aortic valve is not well visualized , no stenosis and no regurgitation. The mitral valve is normal in structure, no mitral regurgitation. Indeterminate pattern of LV diastolic filling. The tricuspid valve is normal in structure. Tricuspid regurgitation is mild regurgitation. The tricuspid regurgitant velocity is 2.9 m/s, the estimated right ventricular systolic pressure is 35 mmHg plus right atrial pressure. There is moderately increased estimated pulmonary pressure by tricuspid regurgitation velocity and right atrial pressure. The pulmonic valve is normal. No pulmonary regurgitation. TTE images do not appear adequate for transcather intervention with patient supine. Masses, Effusion, Shunts There is no pericardial effusion. The inferior vena cava is dilated, respiratory size variation less than 50%, consistent with elevated right atrial pressure. No left to right shunting was detected by limited color flow Doppler interrogation of the interatrial septum. MEASUREMENTS AND CALCULATIONS 2-D Measurements and LV Function: LVID (d) 4.4 cm LV FS% (2D) ?? 41 % LVID (s) 2.6 cm LVOT diameter 2.2 cm IVS (d) ??1.3 cm HR ?86 bpm LVPW (d) 1.3 cm LA Vol index ??34 ml/m2 Ao Sinus 3.1 cm RA area ? 22 cm? ? ? Asc Ao ?? 3.9 cm RV Max 4C (d) 3.8 cm Diastology: Mitral ?Tissue Doppler E Peak 1.0 m/s ??e', Septum ? 0.09 m/s A Peak 1.0 m/s ??e', Lateral ?0.10 m/s E/A ?1.0 ?E/e' Average ?? 10.62 DT ? 225 msec Aortic Valve: Vmax ? 2.0 m/s ??NANCY (V) ?? 3.39 cm? ? ? VTI ?0.50 m ?? NANCY (I) ?? 3.26 cm? ? ? LVOT V max 1.8 m/s ??Max PG ?16 mmHg LVOT VTI ?? 0.42 m ?? Mean PG ?? 9 mmHg SV ? 163 ml ?? Dim Index 0.84 SV index ?? 76 ml/m? ? ? CO ?14.0 l/min ?CI ?6.6 l/min/m? ? ? Mitral Valve: MVA ?3.4 cm? ? ? MV P 1/2 65 msec Tricuspid Valve and estimated PA pressures: TR Vmax 2.9 m/s TAPSE 3.4 cm TR maxG 35 mmHg . This study was interpreted by an [facility] accredited facility. CC: HIM (med records) [facility], Med/Surg - IP [facility]. ??Final ?? Procedure Note Te Barnes MD - 01/24/2024 ECHOCARDIOGRAM MONIK GALLEGO : 1950 73 years Study Date: 01/24/2024 3:30:55 PM Gender: F BP: 113/67 mmHg Height: 165.00 cm BSA: 2.14 m? ? ? Weight: 109.00 kg Tech: XENA Referring MD: ROBERT RUIZ Site: [facility] Reading Location: [facility] Patient Location: Outpatient. Procedure: 2D, Color Doppler and Spectral Doppler. Indication for study: RESP FAILURE Cardiac Rhythm: Normal sinus.Study quality: Good. Final Impressions: 1. Normal LV size, not well visualized wall thickness, hyperdynamicglobal systolic function with an estimated EF of 70 - 75%. 2. Mildly enlarged left atrium. 3. Right ventricular cavity size is normal, global systolic RV functionis normal. 4. The aortic valve is not well visualized, no stenosis and noregurgitation. 5. The mitral valve is normal, no mitral regurgitation. 6. Moderately increased estimated pulmonary pressures by tricuspidregurgitation velocity and right atrial pressure (35 mmHg plus RAP). 7. No pericardial effusion. 8. Severely elevated right atrial pressure. Chamber Sizes and Function Normal left ventricular size, not well visualized wall thickness,hyperdynamic global systolic function with an estimated EF of 70 - 75%. Nodefinite resting regional wall motion abnormality seen. Left atrial sizeis mildly enlarged. Right ventricular cavity size is normal, globalsystolic RV function is normal. The right atrium is mildly enlarged. Rightatrial pressure is severely elevated. Right atrial area is 22 cm? ? ?. Thepulmonary artery is of normal size and origin. The sinus of Valsalva isnormal sized. The ascending aorta is normal sized. Valves, RV Pressures and Diastolic Function The aortic valve is not well visualized , no stenosis and noregurgitation. The mitral valve is normal in structure, no mitralregurgitation. Indeterminate pattern of LV diastolic filling. Thetricuspid valve is normal in structure. Tricuspid regurgitation is mildregurgitation. The tricuspid regurgitant velocity is 2.9 m/s, theestimated right ventricular systolic pressure is 35 mmHg plus right atrialpressure. There is moderately increased estimated pulmonary pressure bytricuspid regurgitation velocity and right atrial pressure. The pulmonicvalve is normal. No pulmonary regurgitation. TTE images do not appearadequate for transcather intervention with patient supine. Masses, Effusion, Shunts There is no pericardial effusion. The inferior vena cava is dilated,respiratory size variation less than 50%, consistent with elevated rightatrial pressure. No left to right shunting was detected by limited colorflow Doppler interrogation of the interatrial septum. MEASUREMENTS AND CALCULATIONS 2-D Measurements and LV Function: LVID (d) 4.4 cm LV FS% (2D) 41 % LVID (s) 2.6 cm LVOT diameter 2.2 cm IVS (d) 1.3 cm HR 86 bpm LVPW (d) 1.3 cm LA Vol index 34 ml/m2 Ao Sinus 3.1 cm RA area 22 cm? ? ? Asc Ao 3.9 cm RV Max 4C (d) 3.8 cm Diastology: Mitral Tissue Doppler E Peak 1.0 m/s e', Septum 0.09 m/s A Peak 1.0 m/s e', Lateral 0.10 m/s E/A 1.0 E/e' Average 10.62 DT 225 msec Aortic Valve: Vmax 2.0 m/s NANCY (V) 3.39 cm? ? ? VTI 0.50 m NANCY (I) 3.26 cm? ? ? LVOT V max 1.8 m/s Max PG 16 mmHg LVOT VTI 0.42 m Mean PG 9 mmHg SV 163 ml Dim Index 0.84 SV index 76 ml/m? ? ? CO 14.0 l/min CI 6.6 l/min/m? ? ? Mitral Valve: MVA 3.4 cm? ? ? MV P 1/2 65 msec Tricuspid Valve and estimated PA pressures: TR Vmax 2.9 m/s TAPSE 3.4 cm TR maxG 35 mmHg . This study was interpreted by an [facility] accredited facility. CC: HIM (med records) [facility], Med/Surg - IP [facility]. Final Robert DE LOS SANTOS ECHO ORD * CHOLESTEROL,TOTAL (10/25/2020 1:02 PM PORTAL ARCHITECT) [facility] CHOLESTEROL,TO PURVI 142 100 - 199 mg/dL 10/25/2020 5:38 PM PORTAL ARCHITECT [facility] PROVIDER ORDERED STATUS RANDOM 10/25/2020 5:38 PM PORTAL ARCHITECT [facility] Blood BLOOD SPECIMEN / Unknown 10/25/2020 1:02 PM PORTAL ARCHITECT 10/25/2020 5:21 PM PORTAL ARCHITECT Tamanna Rolon NP CHEMISTRY [facility] [address] [place] [address], * COLONOSCOPY (01/02/2018 11:48 AM CDT) 01/02/2018 11:4 8 AM CDT Narrative Transcriptions Alfredito Lyman MD - 01/02/2018 1:14 PM CDT [facility] Patient Name: Monik Gallego Procedure Date: 01/02/2018 Gender: Female Date of : 1950 Admit Type: Inpatient Procedure: Colonoscopy [facility]ural[facility] Indications/Pre-Op Diagnosis: Hematochezia Medications: General Procedure Description: [...] ACR 2 Benign Finding Procedure Note Robi Lopez, DO - 07/10/2008 Benign findings noted on mammogram. For complete description of themammographic examination, please reference scanned document [facility]. We are mailing a results letter to the patient. 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 Expl anation Healthcare Directive 01/02/2018 5:54 AM Healthcare Directive 12/31/2017 12:00 AM * Full Code (Latest Code Status on File) Date Activated Date Inactivated Comments 07/11/2018 6:13 AM 07/14/2018 2:03 PM * Full Code Date Activated Date Inactivated Comments 12/31/2017 9:37 PM 01/03/2018 3:50 PM Care Teams Music Therapy Teacher Relationship Specialty Start Date End Date Silver Whalen MD [address] [place] [address] PCP - General Family Practice 12/31/17 Opal Alcantara MD [address] [place] [id number] Cardiovascular Disease 05/28/20 Nurses, Advanced Heart Failure [address] [address] Advanced Heart Failure/Transplant Card 05/28/20
--- OUTSIDE RECORDS SUMMARY | 2024-02-05 21:19 | XMS_ITS | Continuity of Care Document ---
Author Organization [facility] Address [address] [place] [address] Phone Care Team Providers Care Instructional Material Director Name Role Phone Matthias Simpson MD Unavailable [...] [facility], [address], [place], [address], tel:[phone] [facility], Abnormal Lab Study (chief complaint) Positive Antibody 1 Calvin Rizzo. [facility] [address], [place], [address], [place]. tel:[phone] Referring Provider: Matthias Sorensen, [facility] [address], [place], [address]. tel:[phone] Family History Family Member Type Diagnosis Age At Onset Problem No family history of Systemi c lupus erythematosus Immunizations Vaccine Date Status Comments COVID-19 Pfizer administered Note: 2020 ; Source: Other Provider Payers Payer name Insurance type Covered green party ID Authoriza timisael(s) [employer] Medicare Advantage/Plat in[employer] Blue BL [id number] Social History Type Description Quantity Date Captured [...]
--- OUTSIDE RECORDS SUMMARY | 2024-02-05 21:19 | XMS_ITS | Clinical Summary ---
Author Organization [facility] Facility Address [address] [address] Care Team Providers Care Transfer Driver Name Role Phone Unavailable Primary Care Provider [...] Pneumococcal Vaccine: 65+ Ye ars (1 of 1 - PCV) 2014 Influenza Vaccine (Season Ended) 2024 Hepatitis B Vaccine Aged Out No longe r eligible based on patient's age to complete this topic
--- OUTSIDE RECORDS SUMMARY | 2024-02-05 21:19 | XMS_ITS | Continuity of Care Document ---
Author Organization [facility] Address [address] [address] [place] [address] Phone Care Team Providers Care Gaming Manager Name Role Phone Amanda Claros Unavailable Unavailable [...] [facility], [address] [address], [place], [place], [id number], tel:[phone] [facility] No Information 8 Odilon Patel. [address] [place] [address], [id number] , [place]. tel:[phone] Referring Provider: Silver Whalen MD, [address] [place], [address]. tel:[phone] Init Hosp[facility]da [facility]&m Mod Severity [facility], [address] [address], [place], [place], [id number], tel:[phone] [facility] No Information 8 Nura Glaser. [address] [place] [address], [id number] , . tel:[phone] Referring Provider: Silver Whalen MD, [address] [place], [address]. tel:[phone] Family History Family Member Type Diagnosis Age At Onset No Information Payers Payer name Insurance type Covered green party ID Authoriza tion(s) [employer] [place] [employer] [place] [id number] Social History Type Description Quantity Date Captured [...]
[2024-02-05 21:33] LABS: Chloride* 97 mmol/L (96-114); Sodium* 135 mmol/L (135-149)
[2024-02-05 21:34] LABS: Albumin* 4.2 g/dL (3.3-5.0)
[2024-02-05 21:36] LABS: Estimated Glomerular Filt Rate 59 ml/min
[2024-02-05 21:37] LABS: Alanine Aminotransferase* 24 U/L (4-35); Alkaline Phosphatase* 99 U/L (40-150); Anion Gap 4 mEq/L (7-15); Aspartate Amino Transferase* 25 U/L (12-35); Bilirubin Total* 0.9 mg/dL (0.1-1.5); Blood Urea Nitrogen* 27 mg/dL (7-30); Calcium* 8.5 mg/dL (8.4-10.6); Carbon Dioxide* 34 mmol/L (20-32); Glucose* 121 mg/dL (60-115); Total Protein* 7.6 g/dL (6.0-8.3)
[2024-02-05] MEDS: METHYLPREDNISOLONE SOD SUCC 62.5 MG/ML (125) 125 MG IVP (21:39)
[2024-02-05] MEDS: FUROSEMIDE 10 MG/ML inj 40 MG IVP (21:39)
[2024-02-05 21:40] LABS: C Reactive Protein* 4.6 mg/dL (0.5-1.0)
[2024-02-05 21:50] LABS: D Dimer Quantitative* 2.72 ug/ml (0.00-0.50)
[2024-02-05 21:54] LABS: Procalcitonin* 0.05 ng/mL (<0.50)
[2024-02-05 22:01] LABS: NT Pro B Type NatriureticPept* 3250 pg/mL; Troponin I* < 0.01 ng/mL (0.01-0.04)
[2024-02-05 22:10] LABS: PCR FLU A Negative PCR FLU A (Negative); PCR FLU B Negative PCR FLU B (Negative); PCR RSV Negative PCR RSV (Negative); SARS PCR* Negative SARS-CoV-2 (Negative)
[2024-02-05 22:12] LABS: Lactate* 1.2 mmol/L (0.5-1.9)
[2024-02-05 22:27] LABS: HCO3 VBG 33 mmol/L (21-28); PCO2 VBG 53 mmHG (40-50); PO2 VBG 34.5 mmHG (25-47)
[2024-02-05] MEDS: CEFEPIME HCL 2 GM in 0.9 % SODIUM CHLORIDE Mini-bag 100 ML IVPB (22:41)
== END 2024-02-05 23:46 | disposition short-term general hospital (02) ==
PROVIDERS: Emergency Provider Family Medicine; PCP Family Medicine
DX: J96.02 Acute respiratory failure with hypercapnia (principal); J96.01 Acute respiratory failure with hypoxia; J44.1 Chronic obstructive pulmonary disease with (acute) exacerbation; I50.9 Heart failure, unspecified; Z72.0 Tobacco use
CPT/HCPCS: 36415; 71045; 80053; 82803; 83605; 83880; 84145; 84484; 85025; 85379; 86140; 87040; 87631; 93005; 94640; 94761; 96365; 96375; 99285; 99291; 99292; J0692; J1940; J2919; J3370; J7030

== ENCOUNTER 2024-02-05 23:25 | Outpatient (CLI) | payer MEDICARE, BC, SELFPAY ==
--- OUTSIDE RECORDS SUMMARY | 2024-02-11 18:20 | XMS_ITS | Continuity of Care Document ---
Author Organization [facility] Address [address] [address] [place] [address] Phone Care Team Providers Care Motor Scooter Mechanic Name Role Phone Amanda Claros Unavailable Unavailable Procedures Procedure Date Subsqt Hosp-da E&m Minr Compl 8 Init Hosp-da E&m Mod Severity 8 Colonoscopy Flex; W/bx 1/mx Advance Directives Directive Yes / No Effective Date File Name No Information Encounters Encounter Description Practice Location Reason(s) For Visit Diagnoses Date Provider Providers Copied on Encounter Subsqt Hosp-da E&m Minr Compl [facility], [address] [address], [place], [place], [id number], tel:[phone] [facility] No Information 8 Odilon Patel. [address] [place] [address], [id number] , [place]. tel:[phone] Referring Provider: Silver Whalen MD, [address] [place], [address]. tel:[phone] Init Hosp-da E&m Mod Severity [facility], [address] [address], [place], [place], [id number], tel:[phone] [facility] No Information 8 Nura Glaser. [address] [place] [address], [id number] , . tel:[phone] Referring Provider: Silver Whalen MD, [address] [place], [address]. tel:[phone] Family History Family Member Type Diagnosis Age At Onset No Information Payers Payer name Insurance type Covered republican ID Authoriza tion(s) [employer] [place] [employer] [place] [id number] Social History Type Description Quantity Date Captured [...]
--- OUTSIDE RECORDS SUMMARY | 2024-02-11 18:20 | XMS_ITS | Continuity of Care Document ---
Author Organization [facility] Address [address] [place] [address] Phone Care Team Providers Care Fulfillment Associate Name Role Phone Matthias [place] MD Unavailable [...] Consultants, [address], [place], [address], tel:[phone] [facility], Abnormal Lab Study (chief complaint) Positive Antibody 1 Calvin Rizzo. [facility] [address], [place], [address], [place]. tel:[phone] Referring Provider: Matthias Sorensen, [facility], [address] [address], [place], [address]. tel:[phone] Family History Family Member Type Diagnosis Age At Onset Problem No family history of Systemi c lupus erythematosus Immunizations Vaccine Date Status Comments COVID-19 Pfizer administered Note: 2020 ; Source: Other Provider Payers Payer name Insurance type Covered democrat ID Authoriza timisael(s) [employer] Advantage/[employer] BL [id number] Social History Type Description Quantity Date Captured [...]
--- OUTSIDE RECORDS SUMMARY | 2024-02-11 18:21 | XMS_ITS | Clinical Summary ---
Author Organization [facility] Facility Address [address] [address] Care Team Providers Care Quality Control Inspector Name Role Phone Unavailable Primary Care Provider [...]
--- OUTSIDE RECORDS SUMMARY | 2024-02-11 18:21 | XMS_ITS | Clinical Summary ---
Author Organization [facility] Address [place], [place] [address] Care Team Providers Care Car Salter Name Role Phone Silver Whalen MD Primary Care Provider [phone] Opal Alcantara MD Unavailable [phone] Nurses, Advanced Heart Failure Unavailable + Allergies [...] used), whichever comes first. Active vit-mineral eye [id number] mg-lut-zeax (PreserVision AREDS-2) capsule Take 1 Capsule [...] Encounters Date Type Department Care Team Description 02/11/2024 Telephone [facility]Point [facility] [address] [facility] [address] [place] [phone] Olga Ward NP Lab 02/06/2024 12:43 AM CDT - 02/08/2024 11:34 AM CDT Hospital Encounter [facility] [address] [place] [address] [facility], [facility] Hospitalists Of Valerie Ruano MD Ramsey, Lucas Blumer, MD Mild concentric left ventricular hypertrophy (LVH) (Primary Dx); Cardiopathy; Acute hypoxic respiratory failure (HC); Tobacco use disorder; Acute on chronic diastolic congestive heart failure (HC) Discharge Disposition: Home Self Care 02/06/2024 Travel 01/24/2024 3:00 PM CDT Ancillary Procedure [facility] [address] [place] [address] from Last 3 Months Immunizations Name Administration [...] Lymphoma Mother Other Other no colon or radiologic therapist ecological cancers. no premature coronary artery disease. [...] file Travel History Travel Start Travel End [place] 01/18/2024 01/22/2024 Obstetrics History Last Filed Vital [...] Care Team (Late st Contact Info) Description 02/13/2024 1:00 PM CDT Office Visit [facility] [address] [facility] [address] [place] [address] Olga Ward NP [address] [facility] [address] [place] [address] 03/21/2024 9:50 AM CDT Office Visit [facility] [address] [place] [address] Oni Shaw MD [address] [facility] [address] [place], [place] [id number] Health Maintenance Due Date Last Done Comments Depression screening for age 12+ 1961 Hepatitis C screening for ag e 18-79 1967 Medicare Wellness for age 65+ 2014 Pneumococcal series for age 65+ (2 of 2 - PCV) 10/27/2015 10/27/2014 Mammogram for age 45-75 03/10/2021 03/10/20 20 (Completed outside of [facility]), 07/09/2008 Tetanus booster 05/05/2021 05/05/2011, 12/12/2002 COVID-19 vaccine series ( season) 2023 08/16/2023, 07/14/2022, 01/31/2022, Additional history [...] age 65+ Completed 2018 (Completed outside of [facility]) Medical Devices Implanted Type Area Steward/Stewardess Bath Device Identifier Shelf Expiration Date Model / Serial / Lot Adhesion Barrier 5x6in Seprafilm Absorb - [id number] Implanted:Qty: 1 on 07/11/2018 by Annamarie Massey MD at [facility] 05/10/2019 4301-02# / / [id number] Adhesion Barrier 5x6in Seprafilm Absorb - [id number] Implanted:Qty: 2 on 07/11/2018 by Annamarie Massey MD at [facility] 09/09/2019 4301-02# / / [id number] Procedures Procedure Name Priority Date/Time Associated Diagnosis [...] (HC) CHOLESTEROL,TOTAL Routine 10/25/2020 1:0 2 PM METAL STORAGE WORKER 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) [...] 11.0 thou/cu mm 02/08/2024 6:27 AM CDT [facility] NRBC 0.0 % 02/08/2024 6:27 AM CDT [facility] ABS NRBC 0.0 thou /cu mm 02/08/2024 6:27 AM CDT [facility] Blood BLOOD SPECIMEN / Unknown Venipuncture / Unknown 02/08/2024 6:05 AM CDT 02/08/2024 6:19 AM CDT Jordan Thompson MD HEMATOLOGY [facility] [address] [place] [address], * (ABNORMAL) BASIC METABOLIC PANEL (02/08/2024 6:05 AM CDT) Only the most recent of2 resultswithin the time period is included. SODIUM 138 136 - 145 mmol/L 02/08/2024 7:01 AM CDT [facility] POTASSIUM 4.1 3.5 - 5.1 mmol/L 02/08/2024 7:01 AM CDT [facility] CHLORIDE 88(L) 98 - 107 mmol/L 02/08/2024 7:01 AM CDT [facility] CO2,TOTAL 39(H) 22 - 29 mmol/L 02/08/2024 7:01 AM CDT [facility] ANION GAP 11 5 - 18 02/08/2024 7:01 AM CDT [facility] GLUCOSE 93 70 - 99 mg/dL 02/08/2024 7:01 AM CDT [facility] CALCIUM 9.6 8.8 - 10.2 mg/dL 02/08/2024 7:01 AM CDT [facility] BUN 34(H) 8 - 23 mg/dL 02/08/2024 7:01 AM CDT [facility] CREATININE 1.14(H) 0.50 - 0.90 mg/dL 02/08/2024 7:01 AM CDT [facility] BUN/CREAT RATIO 30(H) 10 - 20 7:01 AM T [facility] eGFR 51(L) >90 mL/min/1.7 3m2 02/08/2024 7:01 AM CDT [facility] Comment:As of 2021, eG FR [...] 6:20 AM CDT Esperanza Joyce NP CHEMISTRY [facility] [address] [place] [address], * SCAN-CARDIAC STRIP (02/08/2024 1:15 AM CDT) [...] 27.1% (896 ml excess). ? Patient Result ?[place] Patient ?? Total Blood Volume ? [id number] [...] by: Gray Benitez MD Cardiology Esperanza Joyce SAFETY PHYSICIAN [place] * HEMATOCRIT (02/07/2024 3:37 PM CDT) HEMATOCRIT 38.5 33.0 - 51.0 % 02/07/2024 4:00 PM CDT [facility] Blood BLOOD SPECIMEN / Unknown Non-Lab Venipuncture / Unknown 02/07/2024 3:37 PM CDT 02/07/2024 3:37 PM CDT Jordan Thompson MD HEMATOLOGY [facility] [address] [place] [address], * EXTRA TUBE LAVENDER (02/07/2024 3:15 PM CDT) Blood BLOOD SPECIMEN / Unknown Non-Lab Venipuncture / Unknown 02/07/2024 3:15 PM CDT 02/07/2024 4:48 PM CDT Jordan Thompson MD LABORATORY [facility] [address] [place] [address], [place] * ECHO TTE COMPLETE WO CONTRAST (02/07/2024 2:55 PM CDT) Only the most recent of2 resultswithin the time period is included. AORTIC VALVE MEAN PG 5 mmHg EJECTION FRACTION 72 % PEAK TR VELOCITY 3.0 m/s LVEDD 4.9 cm Anatomical Region Laterality Modality Ultrasound 02/07/2024 12:3 9 PM CDT Narrative 02/07/2024 3:34 PM CDT ECHOCARDIOGRAM MONIK GALLEGO ? Accession#: ?? [id number] : ?1950 73 years Study Date: ?? 02/07/2024 12:39:00 PM Gender: F ?BP: ? 107/53 mmHg Height: 165.00 cm ?BSA: ?2.09 m? ? ? Weight: 103.00 kg ?Tech: ? GG/TRAVELER ? Referring MD: VALERIE RUANO SCOTT Site: ? [facility] Reading Location: [facility]- Patient Location: Inpatient. Procedure: 2D, Color Doppler [...] . This study was interpreted by an [facility] accredited facility. ??Final ?? Procedure Note Reyna Arnold, [facility] - 02/07/2024 ECHOCARDIOGRAM MONIK GALLEGO : 1950 73 years Study Date: 02/07/2024 12:39:00 PM Gender: F BP: 107/53 mmHg Height: 165.00 cm BSA: 2.09 m? ? ? Weight: 103.00 kg Tech: GG/TRAVELER Referring MD: VALERIE RUANO SCOTT Site: [facility] Reading Location: [facility] Patient Location: Inpatient. Procedure: 2D, Color Doppler [...] . This study was interpreted by an [facility] accredited facility. Final Valerie Ruano MD ECHO ORD * POTASSIUM (02/07/2024 7:58 AM CDT) Only the most recent of2 resultswithin the time period is included. POTASSIUM 4.5 3.5 - 5.1 mmol/L 02/07/2024 9:10 AM CDT [facility] Blood BLOOD SPECIMEN / Unknown Venipuncture / Unknown 02/07/2024 7:58 AM CDT 02/07/2024 8:03 AM CDT Jordan Thompson MD CHEMISTRY [facility] [address] [place] [address], * (ABNORMAL) CBC no diff AM (02/07/2024 6:29 AM CDT) WHITE BLOOD COUNT 13.3(H) 4.5 - 11.0 thou/cu mm 02/07/2024 6:56 AM CDT [facility] RED BLOOD COUNT 3.94(L) 4.00 - 5.20 mil/cu mm 02/07/2024 6:56 AM CDT [facility] HEMOGLOBIN 12.1 12.0 - 16.0 g/dL 02/07/2024 6:56 AM CDT [facility] HEMATOCRIT 38.9 33.0 - 51.0 % 02/07/2024 6:56 AM CDT [facility] MCV 99 80 - 100 fL 02/07/2024 6:56 AM CDT [facility] MCH 30.7 26.0 - 34.0 pg 02/07/2024 6:56 AM CDT [facility] MCHC 31.1(L) 32.0 - 36.0 g/dL 02/07/2024 6:56 AM T [facility] RDW 13.8 11.5 - 15.5 % 02/07/2024 6:56 AM T [facility] PLATELET COUNT 316 140 - 440 thou/cu mm 02/07/2024 6:56 AM CDT [facility] MPV 8.8 6.5 - 11.0 fL 02/07/2024 6:56 AM CDT [facility] NRBC 0.0 % 02/07/2024 6:56 AM CDT [facility] ABS NRBC 0.0 thou /cu mm 02/07/2024 6:56 AM CDT [facility] Blood BLOOD SPECIMEN / Unknown Venipuncture / Unknown 02/07/2024 6:29 AM CDT 02/07/2024 6:42 AM CDT Jordan Thompson MD HEMATOLOGY Performing Organization Address [facility] Co de Phone Number [facility] [address] [place] [address], * MAGNESIUM (02/07/2024 6:29 AM CDT) Only the most recent of2 resultswithin the time period is included. MAGNESIUM 1.6 1.6 - 2.4 mg/dL 02/07/2024 7:11 AM CDT [facility] Blood BLOOD SPECIMEN / Unknown Venipuncture / Unknown 02/07/2024 6:29 AM CDT 02/07/2024 6:42 AM CDT Jordan Thompson MD CHEMISTRY Performing Organization Address [facility] Co de Phone Number [facility] [address] [place] [address], * SCAN-CARDIAC STRIP (02/07/2024 12:49 AM CDT) [...] For Patients: ??As a result of the Cures Act, medical imaging exams and procedure [...] OTHER * HEMOGLOBIN (02/06/2024 7:04 AM CDT) Pathologist [facility] HEMOGLOBIN 12.2 12.0 - 16.0 g/dL 02/06/2024 7:18 AM CDT [facility] MCV 100 80 - 100 fL 02/06/2024 7:18 AM CDT [facility] Blood BLOOD SPECIMEN / Unknown Non-Lab Venipuncture / Unknown 02/06/2024 7:04 AM CDT 02/06/2024 7:12 AM CDT Valerie Ruano MD HEMATOLOGY Performing Organization Address City/[facility]/ZIP Co de Phone Number [facility] [address] [place] [address], * SODIUM (02/06/2024 7:04 AM CDT) [facility] SODIUM 138 136 - 145 mmol/L 02/06/2024 7:37 AM CDT [facility] Blood BLOOD SPECIMEN / Unknown Venipuncture / Unknown 02/06/2024 7:04 AM CDT 02/06/2024 7:12 AM CDT Valerie Ruano MD CHEMISTRY Performing Organization Address City/[facility]/ZIP Co de Phone Number [facility] [address] [place] [address], [place] * (ABNORMAL) CREATININE (02/06/2024 7:04 AM CDT) Pathologist [facility] eGFR 57(L) >90 mL/min/1.7 3m2 02/06/2024 7:37 AM CDT [facility] Comment:As of 2021, eG FR is calculated by the CKD-EPI creatinine equation without race adjustment. ??eGFR can be influenced by muscle mass, exercise, and diet. ??The reported eGFR is an estimation only and is only applicable if the renal function is stable. CREATININE 1.04(H) 0.50 - 0.90 mg/dL 02/06/2024 7:37 AM CDT [facility] Blood BLOOD SPECIMEN / Unknown Venipuncture / Unknown 02/06/2024 7:04 AM CDT 02/06/2024 7:12 AM CDT Valerie Ruano MD CHEMISTRY Performing Organization Address [facility] Co de Phone Number [facility] [address] [address], [place] * (ABNORMAL) BLOOD GAS,VENOUS (02/06/2024 7:03 AM CDT) PH, VENOUS 7.37 7.32 - 7.43 02/06/2024 7:17 AM CDT [facility] PCO2, VENOUS 63(H) 41 - 51 mmHg 02/06/2024 7:17 AM CDT [facility] PO2, VENOUS 56(H) 35 - 40 mmHg 02/06/2024 7:17 AM CDT [facility] HCO3,VENOUS 36(H) 22 - 29 mmol/L 02/06/2024 7:17 AM CDT [facility] BASE EXCESS, VENOUS, POCT 8.7(H) -2.0 - 3.0 02/06/2024 7:17 AM CDT [facility] O2 SATURATION, VENOUS 87(H) 70 - 75 % 02/06/2024 7:17 AM CDT [facility] PATIENT TEMPERATURE 37.0 Degrees C 02/06/2024 7:17 AM CDT [facility] Blood VENOUS BLOOD SPECIMEN / Unknown Venipuncture / Unknown 02/06/2024 7:03 AM CDT 02/06/2024 7:12 AM CDT Valerie Ruano MD CHEMISTRY Performing Organization Address [facility]/ZIP Co de Phone Number [facility] [address] [address], [place] * SCAN-CARDIAC STRIP (02/06/2024 3:55 AM CDT) Scanner OTHER * CHOLESTEROL,TOTAL (10/25/2020 1:02 PM METAL STORAGE WORKER) CHOLESTEROL,TO PURVI 142 100 - 199 mg/dL 10/25/2020 5:38 PM METAL STORAGE WORKER [facility] PROVIDER ORDERED STATUS RANDOM 10/25/2020 5:38 PM METAL STORAGE WORKER [facility] Blood BLOOD SPECIMEN / Unknown 10/25/2020 1:02 PM METAL STORAGE WORKER 10/25/2020 5:21 PM METAL STORAGE WORKER Tamanna Rolon NP CHEMISTRY [facility] [address] [place] [address], [place] * COLONOSCOPY (01/02/2018 11:48 AM CDT) 01/02/2018 11:4 8 AM CDT Narrative Transcriptions Alfredito Lyman MD - 01/02/2018 1:14 PM CDT [facility] Patient Name: Monik Gallego Procedure Date: 01/02/2018 Gender: Female Date of : 1950 Admit Type: Inpatient Procedure: Colonoscopy Proceduralist: [facility] [place] Indications/Pre-Op Diagnosis: Hematochezia Medications: General Procedure Description: [...] Documents on File Type Date Recorded Patient Certified Novell Engineer Expl anation Healthcare Directive 01/02/2018 5:54 AM [...] 9:37 PM 01/03/2018 3:50 PM Care Teams Car Salter Relationship Specialty Start Date End Date Silver Whalen MD [address] [place] [address] PCP - General Family Practice 12/31/17 Opal Alcantara MD [address] [place] [phone] Cardiovascular Disease 05/28/20 Nurses, Advanced Heart Failure [address] [place] [id number] Advanced Heart Failure/Transplant Card 05/28/20
== END 2024-02-05 23:26 | disposition home or self-care (01) ==
LOC: AMB 02-11 18:19
PROVIDERS: PCP Family Medicine; Visit Provider Family Medicine
DX: I50.9 Heart failure, unspecified (principal)
CPT/HCPCS: A0425; A0434

== ENCOUNTER 2024-02-11 08:15 | Outpatient (CLI) | payer MEDICARE, BC, SELFPAY ==
--- OUTSIDE RECORDS SUMMARY | 2024-02-11 08:17 | XMS_ITS | Continuity of Care Document ---
Author Organization [facility] Address [address] [place] [address] Phone Care Team Providers Care Harness Maker Name Role Phone Matthias Simpson MD Unavailable [...] Consultants, [address], [place], [address], tel:[phone] [facility], Abnormal Lab Study (chief complaint) Positive Antibody 1 Calvin Rizzo. [facility] [address], [place], [address], [place]. tel:[phone] Referring Provider: Matthias Sorensen, [facility] [address], [place], [address]. tel:[phone] Family History Family Member Type Diagnosis Age At Onset Problem No family history of Systemi c lupus erythematosus Immunizations Vaccine Date Status Comments COVID-19 Pfizer administered Note: 2020 ; Source: Other Provider Payers Payer name Insurance type Covered republican ID Authoriza timisael(s) [employer] Medicare Advantage/Plat [employer] Blue BL [id number] Social History Type Description Quantity Date Captured [...]
--- OUTSIDE RECORDS SUMMARY | 2024-02-11 08:18 | XMS_ITS | Clinical Summary ---
Author Organization [facility] Address [place], [place] [address] Care Team Providers Care Tester Equipment Name Role Phone Silver Whalen MD Primary Care Provider [phone] Opal Alcantara MD Unavailable [phone] Nurses, Advanced Heart Failure Unavailable + Allergies Active Allergy Reactions Criticality Noted Date Comments Duloxetine Rash Medium 04/03/2019 Medications Medication Sig Dispensed Refills Start Date End Date Status aspirin chewable 81 mg chewable tablet Take 1 tablet by mouth once daily with a meal. 0 04/03/20 19 Active gabapentin (NEURONTIN) 300 mg capsule Take 2 capsules by mouth 2 times daily. 3 05/25/20 20 Active amLODIPine (NORVASC) 10 mg tablet Take 10 mg by mouth once daily. 04/13/20 21 Active CPAPIndications:O SA (obstructive sleep apnea) CPAP, heated humidifier, full face mask, headgear, chinstrap, filters and heated tubing. For home use. Pressure: 11 cm H20 Needs 4 liters oxygen bled into CPAP Length of Need: 99 months; Frequency of use: Daily 1 Each 1 03/16/20 22 Active cholecalciferol (Vitamin D-3) 400 unit tablet Take 1 Tablet (400 units) by mouth once daily. 40 units = 1 mcg (400 unit = 10 mcg) 0 06/23/20 22 Active atorvastatin (LIPITOR) 20 mg tablet Take 1 Tablet (20 mg) by mouth once daily. 0 06/23/20 22 Active losartan (COZAAR) 25 mg tabletIndications :Cardiopathy Take 1 Tablet (25 mg) by mouth once daily. 05/18/20 23 Active atenoloL (TENORMIN) 50 mg tablet Take 1 Tablet (50 mg) by mouth two times daily. 05/18/20 23 Active oxygen-air delivery systems (HOME OXYGEN)Indication s:Chronic hypoxemic respiratory failure (HC) Oxygen for home use. Liters per minute: 4 L bled into CPAP and 2 per nasal cannula with activity Frequency of use: Continuous with portability. Length of need: 99 Months. 1 Each 10/15/19 24 Active fluticasone furoate-vilantero L (Breo Ellipta) 100-25 mcg/dose inhalation powder Inhale 1 Puff by mouth once daily. Active umeclidinium (Incruse Ellipta) 62.5 mcg/actuation inhaler Inhale 1 Puff by mouth once daily. Discard inhaler 6 weeks after opening or when the counter reads '0' (after all blisters have been used), whichever comes first. Active vit-mineral eye [id number] mg-lut-zeax (PreserVision AREDS-2) capsule Take 1 Capsule by mouth two times daily. Active furosemide (LASIX) 40 mg tabletIndications :Cardiopathy Take 1 Tablet (40 mg) by mouth once daily in the morning. 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) (HC) TAKE ONE TABLET BY MOUTH TWICE A DAY 100 Tablet 2 06/28/20 22 024 Discontinued(Ph armacist change per medication history (E-cancel not sent)) sodium chloride 1,000 mg soluble tabletIndications :Hyponatremia TAKE ONE TABLET BY MOUTH TWICE A DAY FOR ELECTROLYTE REPLENISHMENT 100 Tablet 2 05/22/20 23 024 Discontinued(*I P Discontinued) Active Problems Problem Noted Date Diagnosed Date CHF exacerbation 02/08/2024 Acute hypoxic respiratory failure 02/07/2024 CHF exacerbation 02/07/2024 Hyponatremia 08/11/2020 Mild concentric left ventricular hypertrophy [...] Encounters Date Type Department Care Team Description 02/06/2024 12:43 AM CDT - 02/08/2024 11:34 AM CDT Hospital Encounter [facility] [address] [place] [address] [facility], [facility] Hospitalists Of Valerie Ruano MD Ramsey, Lucas Blumer, MD Mild concentric left ventricular hypertrophy (LVH) (Primary Dx); Cardiopathy; Acute hypoxic respiratory failure (HC); Tobacco use disorder; Acute on chronic diastolic congestive heart failure (HC) Discharge Disposition: Home Self Care 02/06/2024 Travel 01/24/2024 3:00 PM CDT Ancillary Procedure [facility] [address] [place] [address] from Last 3 Months Immunizations Name Administration [...] Lymphoma Mother Other Other no colon or ob/gyn nurse ecological cancers. no premature coronary artery disease. [...] of Communication with Friends and Fami ly 0 02/06/2024 Financial Resource Strain Answer Date R ecorded Difficulty of Paying Living Expenses 3 02/06/2024 Difficulty of Paying Living Expenses Not on file 02/06/2024 Food Insecurity Answer Date Recorded Worried About Running Out of Food in the Last Ye ar 1 02/06/2024 Transportation Needs Answer Date Record ed Lack of Transportation (Medical) 1 02/06/2024 Housing Stability Answer Date Recorded Unable to Pay for Housing in the Last Year 1 02/06/2024 Sex and Gender Information Value Date Recorded Sex Assigned at Not on file Gender Identity Not on file Sexual Orientation Not on file Travel History Travel Start Travel End [place] 01/18/2024 01/22/2024 Obstetrics History Last Filed Vital Signs Vital Sign Reading Time Taken Comments Blood Pressure 101/57 02/08/2024 7:51 AM CDT Pulse 64 02/08/2024 7:51 AM CDT Temperature 36.7 ??C (98.1 ??F) 02/08/2024 7:51 AM CD T Respiratory Rate 18 02/08/2024 7:51 AM CDT Oxygen Saturation 94% 02/08/2024 7:51 AM CDT Inhaled Oxygen Concentration - - Weight 98.6 kg (217 lb 6.4 oz) 02/08/2024 5:55 A M CDT Height 165.1 cm (5' 5) 03/23/2023 1:11 PM CDT Body Mass Index 36.18 03/23/2023 1:11 PM CDT Plan of Treatment Upcoming Encounters Date Type Department Care Team (Late st Contact Info) Description 03/21/2024 9:50 AM CDT Office Visit [facility] [address] [facility] [place] [address] Oni Shaw MD [address] [facility] [address] [place] [address] Health Maintenance Due Date Last Done Comments Depression screening for age 12+ 1961 Hepatitis C screening for ag e 18-79 1967 Medicare Wellness for age 65+ 2014 Pneumococcal series for age 65+ (2 of 2 - PCV) 10/27/2015 10/27/2014 Mammogram for age 45-75 03/10/2021 03/10/20 20 (Completed outside of [facility]), 07/09/2008 Tetanus booster 05/05/2021 05/05/2011, 12/12/2002 COVID-19 vaccine series (2022- season) 2023 08/16/2023, 07/14/2022, 01/31/2022, Additional history exists BMI (ht and wt [...] age 65+ Completed 2018 (Completed outside of [facility]) Medical Devices Implanted Type Area Entry Level Drafter Device Identifier Shelf Expiration Date Model / Serial / Lot Adhesion Barrier 5x6in Seprafilm Absorb - [id number] Implanted:Qty: 1 on 07/11/2018 by Annamarie Massey MD at [facility] [employer] 05/10/2019 4301-02# / / [id number] Adhesion Barrier 5x6in Seprafilm Absorb - [id number] Implanted:Qty: 2 on 07/11/2018 by Annamarie Massey MD at [facility] [employer] 09/09/2019 4301-02# / / [id number] Procedures Procedure Name Priority Date/Time Associated Diagnosis Comments WHITE BLOOD COUNT Early AM 02/08/2024 6:0 5 AM CDT BASIC METABOLIC PANEL Early AM 02/08/2024 6:05 AM CDT SCAN-CARDIAC STRIP 02/08/2024 1: 15 AM CDT NM TOTAL BLOOD VOLUME Routine 02/07/2024 4:03 PM CDT HEMATOCRIT SONU 02/07/2024 3:37 PM CDT EXTRA TUBE LAVENDER Today 02/07/2024 3 :15 PM CDT ECHO TTE COMPLETE WO CONTRAST Today 02/07/2024 2:55 PM CDT POTASSIUM Today 02/07/2024 7:58 AM CDT BASIC METABOLIC PANEL Early AM 02/07/2024 6:29 AM CDT CBC W PLT NO DIFF Early AM 02/07/2024 6:2 9 AM CDT MAGNESIUM Early AM 02/07/2024 6:29 AM CDT SCAN-CARDIAC STRIP 02/07/2024 12 :49 AM CDT US VENOUS LOWER EXTREMITY BILATERAL Routine 02/06/2024 1:38 PM CDT SCAN CORRESP-EKG RESULTS 02/06/2024 9:09 AM CDT SCAN CORRESP-IMAGING 02/06/2024 9:09 AM CDT HEMOGLOBIN Early AM 02/06/2024 7:04 AM CDT MAGNESIUM Early AM 02/06/2024 7:04 AM CDT CREATININE Early AM 02/06/2024 7:04 AM CDT POTASSIUM Early AM 02/06/2024 7:04 AM CDT SODIUM Early AM 02/06/2024 7:04 AM CDT BLOOD GAS,VENOUS Early AM 02/06/2024 7:03 AM CDT SCAN-CARDIAC STRIP 02/06/2024 3: 55 AM CDT ECHO TTE COMPLETE WO CONTRAST Routine 01/24/2024 5:23 PM CDT Hypoxic respiratory failure (HC) CHOLESTEROL,TOTAL Routine 10/25/2020 1:0 2 PM DISABILITY COUNSELOR 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) Encounter for examination for normal comparison and control in clinical research program COLONOSCOPY 01/02/2018 11:48 AM CDT XR MAMMO BILAT SCREEN FFDM (IA) Routine 07/09/2008 8:31 AM CDT Other Screening Mammogram from Last 3 Months or Most Recently Relevant to Health Maintenance Results * (ABNORMAL) WBC AM (02/08/2024 6:05 AM CDT) WHITE BLOOD COUNT 11.4(H) 4.5 - 11.0 thou/cu mm 02/08/2024 6:27 AM CDT [facility] NRBC 0.0 % 02/08/2024 6:27 AM CDT [facility] ABS NRBC 0.0 thou /cu mm 02/08/2024 6:27 AM [facility] Blood BLOOD SPECIMEN / Unknown Venipuncture / Unknown 02/08/2024 6:05 AM CDT 02/08/2024 6:19 AM CDT Jordan Thompson MD HEMATOLOGY [facility] [address] [place] [address], * (ABNORMAL) BASIC METABOLIC PANEL (02/08/2024 6:05 AM CDT) Only the most recent of2 resultswithin the time period is included. SODIUM 138 136 - 145 mmol/L 02/08/2024 7:01 AM [facility] POTASSIUM 4.1 3.5 - 5.1 mmol/L 02/08/2024 7:01 AM [facility] CHLORIDE 88(L) 98 - 107 mmol/L 02/08/2024 7:01 AM [facility] CO2,TOTAL 39(H) 22 - 29 mmol/L 02/08/2024 7:01 AM [facility] ANION GAP 11 5 - 18 02/08/2024 7:01 AM [facility] GLUCOSE 93 70 - 99 mg/dL 02/08/2024 7:01 AM [facility] CALCIUM 9.6 8.8 - 10.2 mg/dL 02/08/2024 7:01 AM [facility] BUN 34(H) 8 - 23 mg/dL 02/08/2024 7:01 AM [facility] CREATININE 1.14(H) 0.50 - 0.90 mg/dL 02/08/2024 7:01 AM [facility] BUN/CREAT RATIO 30(H) 10 - 20 7:01 AM CDT [facility] eGFR 51(L) >90 mL/min/1.7 3m2 02/08/2024 7:01 AM CDT [facility] Comment:As of 2021, eG FR is calculated by the CKD-EPI creatinine equation without race adjustment. ??eGFR can be influenced by muscle mass, exercise, and diet. ??The reported eGFR is an estimation only and is only applicable if the renal function is stable. Blood BLOOD SPECIMEN / Unknown Venipuncture / Unknown 02/08/2024 6:05 AM CDT 02/08/2024 6:20 AM CDT Esperanza Joyce NP CHEMISTRY [facility] [address] [place] [address], * SCAN-CARDIAC STRIP (02/08/2024 1:15 AM CDT) Scanner OTHER * NM TOTAL BLOOD VOLUME (02/07/2024 4:03 PM CDT) Anatomical Region Laterality Modality Nuclear Medicine Narrative 02/07/2024 4:50 PM CDT Patient name: Monik Gallego ? Study date: February 07, 2024 TOTAL BLOOD VOLUME ANALYSIS 73 y.o. female HEIGHT: 5 feet 5 inches ? WEIGHT: 227 pounds Findings: Total blood volume showed a severe excess of 24.5% (1265 ml excess). Red blood cell volume showed a mild excess of 19.8% (369 ml excess). Plasma volume showed a severe excess of 27.1% (896 ml excess). ? Patient Result ?[place] Patient ?? Total Blood Volume ? 6433 ml ?5168 ml ? Red Blood Cell Volume ? 2231 ml ?1862 ml ? Plasma Volume ?4202 ml ? 3306 ml ? Peripheral Venous Hct: 38.5% Normalized Hct: ??47.9% Albumin Transudation Rate: ? 0.36%/min. ? (Normal: 0 to 0.25%, Elevated: 0.25 to 0.4%, High: 0.4 to 0.5%, Unusually High: >0.5%) Radiopharmaceutical: ??26.9 uCi Volumex HSA I-131 ?? Blood Volume Interpretation Guide ? Normal ? Mild ?Moderate ? Severe ? Extreme BV, PV Deviation (+/-%) ?? 0 to 8 ?>8 to 16 ?>16 to 24 ?>24 to 32 ?? >32 RCV Deviation (+/-%) ?0 to 10 ? >10 to 20 ? >20 to 30 ?>30 to 40 ?? >40 A preliminary report of findings was communicated to Esperanza Joyce by Dennis Huynh at 1605 on 02/07/24. This study was reviewed by: Gray Benitez MD Cardiology Esperanza Joyce BOILER SETTER NM * HEMATOCRIT (02/07/2024 3:37 PM CDT) [facility] HEMATOCRIT 38.5 33.0 - 51.0 % 02/07/2024 4:00 PM CDT [facility] Blood BLOOD SPECIMEN / Unknown Non-Lab Venipuncture / Unknown 02/07/2024 3:37 PM CDT 02/07/2024 3:37 PM CDT Jordan Thompson MD HEMATOLOGY Performing Organization Address [facility] Co de Phone Number [facility] [address] [place] [id number], [place] * EXTRA TUBE LAVENDER (02/07/2024 3:15 PM CDT) Blood BLOOD SPECIMEN / Unknown Non-Lab Venipuncture / Unknown 02/07/2024 3:15 PM CDT 02/07/2024 4:48 PM CDT Jordan Thompson MD LABORATORY Performing Organization Address [facility] Co de Phone Number [facility] [address] [place] [id number], [place] * ECHO TTE COMPLETE WO CONTRAST (02/07/2024 2:55 PM CDT) Only the most recent of2 resultswithin the time period is included. AORTIC VALVE MEAN PG 5 mmHg EJECTION FRACTION 72 % PEAK TR VELOCITY 3.0 m/s LVEDD 4.9 cm Anatomical Region Laterality Modality Ultrasound 02/07/2024 12:3 9 PM CDT Narrative 02/07/2024 3:34 PM CDT ECHOCARDIOGRAM MONIK GALLEGO ? Accession#: ?? [id number] : ?1950 73 years Study Date: ?? 02/07/2024 12:39:00 PM Gender: F ?BP: ? 107/53 mmHg Height: 165.00 cm ?BSA: ?2.09 m? ? ? Weight: 103.00 kg ?Tech: ? GG/TRAVELER ? Referring MD: VALERIE RUANO SCOTT Site: ? [facility] Reading Location: AN- Patient Location: Inpatient. Procedure: 2D, Color Doppler and Spectral Doppler. Indication for study: CHF, Smoker Cardiac Rhythm: Regular.Study quality: Fair. Final Impressions: 1. Normal left ventricular size, mildly increased wall thickness, normal global systolic function, calculated EF of 72 %. 2. Right ventricular cavity size is normal, global systolic RV function is normal. 3. Normal left atrium size. 4. The aortic valve is sclerotic, no stenosis and trivial regurgitation. 5. The mitral valve is sclerotic, trace mitral regurgitation. 6. Tricuspid valve is normal. 7. The ascending aorta is dilated with a maximal diameter of 3.9 cm. 8. Mildly increased estimated pulmonary pressures by tricuspid regurgitation velocity and right atrial pressure (36 mmHg plus RAP). 9. No pericardial effusion. Chamber Sizes and Function Normal left ventricular size, mildly increased wall thickness, normal global systolic function, calculated EF of 72 %. Left atrial size is normal. Right ventricular cavity size is normal, global systolic RV function is normal. RV wall thickness is normal. The right atrium is normal. The pulmonary artery is not well visualized. The sinus of Valsalva is normal sized. The ascending aorta is dilated. Valves, RV Pressures and Diastolic Function The aortic valve is sclerotic, no stenosis and trivial regurgitation. The mitral valve is sclerotic, trace mitral regurgitation. Indeterminate pattern of LV diastolic filling. The tricuspid valve is normal in structure. Tricuspid regurgitation is regurgitation is not evident. The tricuspid regurgitant velocity is 3.0 m/s, the estimated right ventricular systolic pressure is 36 mmHg plus right atrial pressure. There is mildly increased estimated pulmonary pressure by tricuspid regurgitation velocity and right atrial pressure. The pulmonic valve is normal. No pulmonary regurgitation. Masses, Effusion, Shunts There is no pericardial effusion. The inferior vena cava is dilated, respiratory size variation less than 50%. Interatrial septum is not well visualized. MEASUREMENTS AND CALCULATIONS 2-D Measurements and LV Function: LVID (d) 4.9 cm Planimetered EF 72 % LVID (s) 3.2 cm LV FS% (2D) ? 35 % IVS (d) ??1.1 cm LVOT diameter ?? 2.0 cm LVPW (d) 1.4 cm HR ?57 bpm Ao Sinus 2.8 cm Asc Ao ?? 3.9 cm Diastology: Mitral ?Tissue Doppler E Peak 1.3 m/s ??e', Septum ? 0.10 m/s A Peak 0.8 m/s ??e', Lateral ?0.12 m/s E/A ?1.6 ?E/e' Average ?? 11.96 DT ? 195 msec Aortic Valve: Vmax ? 1.5 m/s ??NANCY (V) ?? 2.89 cm? ? ? VTI ?0.34 m ?? NANCY (I) ?? 2.71 cm? ? ? LVOT V max 1.4 m/s ??Max PG ?9 mmHg LVOT VTI ?? 0.30 m ?? Mean PG ?? 5 mmHg SV ? 93 ml ?Dim Index 0.86 SV index ?? 45 ml/m? ? ? CO ?5.3 l/min ?CI ?2.5 l/min/m? ? ? Mitral Valve: MVA ? 3.9 cm? ? ? MV P 1/2 ??57 msec MV Mean G 2 mmHg Tricuspid Valve and estimated PA pressures: TR Vmax 3.0 m/s TAPSE 2.4 cm TR maxG 36 mmHg Pulmonic Valve: PV Vmax ??1.0 m/s PV meanG 2 mmHg PV VTI ?? 0.22 m PV AT ?111 msec . This study was interpreted by an [facility] accredited facility. ??Final ?? Procedure Note Reyna Arnold, [facility] - 02/07/2024 ECHOCARDIOGRAM MONIK GALLEGO : 1950 73 years Study Date: 02/07/2024 12:39:00 PM Gender: F BP: 107/53 mmHg Height: 165.00 cm BSA: 2.09 m? ? ? Weight: 103.00 kg Tech: GG/TRAVELER Referring MD: VALERIE RUANO SCOTT Site: [facility] Reading Location: [facility] Patient Location: Inpatient. Procedure: 2D, Color Doppler and Spectral Doppler. Indication for study: CHF, Smoker Cardiac Rhythm: Regular.Study quality: Fair. Final Impressions: 1. Normal left ventricular size, mildly increased wall thickness, normalglobal systolic function, calculated EF of 72 %. 2. Right ventricular cavity size is normal, global systolic RV functionis normal. 3. Normal left atrium size. 4. The aortic valve is sclerotic, no stenosis and trivialregurgitation. 5. The mitral valve is sclerotic, trace mitral regurgitation. 6. Tricuspid valve is normal. 7. The ascending aorta is dilated with a maximal diameter of 3.9 cm. 8. Mildly increased estimated pulmonary pressures by tricuspidregurgitation velocity and right atrial pressure (36 mmHg plus RAP). 9. No pericardial effusion. Chamber Sizes and Function Normal left ventricular size, mildly increased wall thickness, normalglobal systolic function, calculated EF of 72 %. Left atrial size isnormal. Right ventricular cavity size is normal, global systolic RVfunction is normal. RV wall thickness is normal. The right atrium isnormal. The pulmonary artery is not well visualized. The sinus of Valsalvais normal sized. The ascending aorta is dilated. Valves, RV Pressures and Diastolic Function The aortic valve is sclerotic, no stenosis and trivial regurgitation. Themitral valve is sclerotic, trace mitral regurgitation. Indeterminatepattern of LV diastolic filling. The tricuspid valve is normal instructure. Tricuspid regurgitation is regurgitation is not evident. Thetricuspid regurgitant velocity is 3.0 m/s, the estimated right ventricularsystolic pressure is 36 mmHg plus right atrial pressure. There is mildlyincreased estimated pulmonary pressure by tricuspid regurgitation velocityand right atrial pressure. The pulmonic valve is normal. No pulmonaryregurgitation. Masses, Effusion, Shunts There is no pericardial effusion. The inferior vena cava is dilated,respiratory size variation less than 50%. Interatrial septum is not wellvisualized. MEASUREMENTS AND CALCULATIONS 2-D Measurements and LV Function: LVID (d) 4.9 cm Planimetered EF 72 % LVID (s) 3.2 cm LV FS% (2D) 35 % IVS (d) 1.1 cm LVOT diameter 2.0 cm LVPW (d) 1.4 cm HR 57 bpm Ao Sinus 2.8 cm Asc Ao 3.9 cm Diastology: Mitral Tissue Doppler E Peak 1.3 m/s e', Septum 0.10 m/s A Peak 0.8 m/s e', Lateral 0.12 m/s E/A 1.6 E/e' Average 11.96 DT 195 msec Aortic Valve: Vmax 1.5 m/s NANCY (V) 2.89 cm? ? ? VTI 0.34 m NANCY (I) 2.71 cm? ? ? LVOT V max 1.4 m/s Max PG 9 mmHg LVOT VTI 0.30 m Mean PG 5 mmHg SV 93 ml Dim Index 0.86 SV index 45 ml/m? ? ? CO 5.3 l/min CI 2.5 l/min/m? ? ? Mitral Valve: MVA 3.9 cm? ? ? MV P 1/2 57 msec MV Mean G 2 mmHg Tricuspid Valve and estimated PA pressures: TR Vmax 3.0 m/s TAPSE 2.4 cm TR maxG 36 mmHg Pulmonic Valve: PV Vmax 1.0 m/s PV meanG 2 mmHg PV VTI 0.22 m PV AT 111 msec . This study was interpreted by an [facility] accredited facility. Final Valerie Ruano MD ECHO ORD * POTASSIUM (02/07/2024 7:58 AM CDT) Only the most recent of2 resultswithin the time period is included. POTASSIUM 4.5 3.5 - 5.1 mmol/L 02/07/2024 9:10 AM CDT [facility] Blood BLOOD SPECIMEN / Unknown Venipuncture / Unknown 02/07/2024 7:58 AM CDT 02/07/2024 8:03 AM CDT Jordan Thompson MD CHEMISTRY [facility] [address] [place] [address], * (ABNORMAL) CBC no diff AM (02/07/2024 6:29 AM CDT) WHITE BLOOD COUNT 13.3(H) 4.5 - 11.0 thou/cu mm 02/07/2024 6:56 AM CDT [facility] RED BLOOD COUNT 3.94(L) 4.00 - 5.20 mil/cu mm 02/07/2024 6:56 AM CDT [facility] HEMOGLOBIN 12.1 12.0 - 16.0 g/dL 02/07/2024 6:56 AM CDT [facility] HEMATOCRIT 38.9 33.0 - 51.0 % 02/07/2024 6:56 AM CDT [facility] MCV 99 80 - 100 fL 02/07/2024 6:56 AM CDT [facility] MCH 30.7 26.0 - 34.0 pg 02/07/2024 6:56 AM CDT [facility] MCHC 31.1(L) 32.0 - 36.0 g/dL 02/07/2024 6:56 AM CDT [facility] RDW 13.8 11.5 - 15.5 % 02/07/2024 6:56 AM CDT [facility] PLATELET COUNT 316 140 - 440 thou/cu mm 02/07/2024 6:56 AM T [facility] MPV 8.8 6.5 - 11.0 fL 02/07/2024 6:56 AM CDT [facility] NRBC 0.0 % 02/07/2024 6:56 AM CDT [facility] ABS NRBC 0.0 thou /cu mm 02/07/2024 6:56 AM T [facility] Blood BLOOD SPECIMEN / Unknown Venipuncture / Unknown 02/07/2024 6:29 AM CDT 02/07/2024 6:42 AM CDT Jordan Thompson MD HEMATOLOGY Performing Organization Address City/[facility]/ZIP Co de Phone Number [facility] [address] [place] [address], * MAGNESIUM (02/07/2024 6:29 AM CDT) Only the most recent of2 resultswithin the time period is included. MAGNESIUM 1.6 1.6 - 2.4 mg/dL 02/07/2024 7:11 AM CDT [facility] Blood BLOOD SPECIMEN / Unknown Venipuncture / Unknown 02/07/2024 6:29 AM CDT 02/07/2024 6:42 AM CDT Jordan Thompson MD CHEMISTRY Performing Organization Address [facility] Co de Phone Number [facility] [address] [place] [address], * SCAN-CARDIAC STRIP (02/07/2024 12:49 AM CDT) Scanner OTHER * US Venous doppler BILATERAL lower extremity (02/06/2024 1:38 PM CDT) Anatomical Region Laterality Modality LEGS, LEG L, LEG R Ultrasound 02/06/2024 4:41 PM CDT Impressions 02/06/2024 4:41 PM CDT No DVT within either lower extremity. Dictated by Lino Garcia MD @ 02/06/2024 4:41:10 PM (Electronically Signed) Narrative 02/06/2024 4:41 PM CDT For Patients: ??As a result of the 21st Century Cures Act, medical imaging exams and procedure reports are released immediately into your electronic medical record. ??You may view this report before your referring provider. ??If you have questions, please contact your health care provider. INDICATION: Swelling. TECHNIQUE: : Ultrasound venous duplex lower extremity bilateral. ??Compression venous exam was performed using garcia-scale, color Doppler, and spectral Doppler imaging. COMPARISON: 12/27/2018. FINDINGS: Sonographic imaging demonstrates the common femoral, deep femoral, superficial femoral, popliteal, posterior tibial and greater saphenous veins to be fully compressible with normal color Doppler blood flow in both lower extremities. ?? Procedure Note Lino Garcia MD - 02/06/2024 For Patients: As a result of the Cures Act, medical imagingexams and procedure reports are released immediately into your electronicmedical record. You may view this report before your referring provider.If you have questions, please contact your health care provider. INDICATION: Swelling. TECHNIQUE: : Ultrasound venous duplex lower extremity bilateral. Compression venousexam was performed using garcia-scale, color Doppler, and spectral Dopplerimaging. COMPARISON: 12/27/2018. FINDINGS: Sonographic imaging demonstrates the common femoral, deep femoral,superficial femoral, popliteal, posterior tibial and greater saphenousveins to be fully compressible with normal color Doppler blood flow inboth lower extremities. IMPRESSION: No DVT within either lower extremity. Dictated by Lino Garcia MD @ 02/06/2024 4:41:10 PM (Electronically Signed) Valerie Ruano MD [place] * SCAN CORRESP-EKG RESULTS (02/06/2024 9:09 AM CDT) Narrative 02/06/2024 9:09 AM CDT Ordered by an unspecified provider. Other Clinical Staff OTHER * SCAN CORRESP-IMAGING (02/06/2024 9:09 AM CDT) Anatomical Region Laterality Modality Other Narrative 02/06/2024 9:09 AM CDT Ordered by an unspecified provider. Other Clinical Staff OTHER * HEMOGLOBIN (02/06/2024 7:04 AM CDT) HEMOGLOBIN 12.2 12.0 - 16.0 g/dL 02/06/2024 7:18 AM CDT [facility] MCV 100 80 - 100 fL 02/06/2024 7:18 AM CDT [facility] Blood BLOOD SPECIMEN / Unknown Non-Lab Venipuncture / Unknown 02/06/2024 7:04 AM CDT 02/06/2024 7:12 AM CDT Valerie Ruano MD HEMATOLOGY Performing Organization Address City/[facility]/ZIP Co de Phone Number [facility] [address] [place] [address], [place] * SODIUM (02/06/2024 7:04 AM CDT) SODIUM 138 136 - 145 mmol/L 02/06/2024 7:37 AM CDT [facility] Blood BLOOD SPECIMEN / Unknown Venipuncture / Unknown 02/06/2024 7:04 AM CDT 02/06/2024 7:12 AM CDT Valerie Ruano MD CHEMISTRY Performing Organization Address [facility] de Phone Number [facility] [address] [place], [place] [phone], [place] * (ABNORMAL) CREATININE (02/06/2024 7:04 AM CDT) eGFR 57(L) >90 mL/min/1.7 3m2 02/06/2024 7:37 AM CDT [facility] Comment:As of 2021, eG FR is calculated by the CKD-EPI creatinine equation without race adjustment. ??eGFR can be influenced by muscle mass, exercise, and diet. ??The reported eGFR is an estimation only and is only applicable if the renal function is stable. CREATININE 1.04(H) 0.50 - 0.90 mg/dL 02/06/2024 7:37 AM CDT [facility] Blood BLOOD SPECIMEN / Unknown Venipuncture / Unknown 02/06/2024 7:04 AM CDT 02/06/2024 7:12 AM CDT Valerie Ruano MD CHEMISTRY Performing Organization Address [facility] Co de Phone Number [facility] [address] [place] [address], [place] * (ABNORMAL) BLOOD GAS,VENOUS (02/06/2024 7:03 AM CDT) PH, VENOUS 7.37 7.32 - 7.43 02/06/2024 7:17 AM CDT [facility] PCO2, VENOUS 63(H) 41 - 51 mmHg 02/06/2024 7:17 AM CDT [facility] PO2, VENOUS 56(H) 35 - 40 mmHg 02/06/2024 7:17 AM CDT [facility] HCO3,VENOUS 36(H) 22 - 29 mmol/L 02/06/2024 7:17 AM CDT [facility] BASE EXCESS, VENOUS, POCT 8.7(H) -2.0 - 3.0 02/06/2024 7:17 AM CDT [facility] O2 SATURATION, VENOUS 87(H) 70 - 75 % 02/06/2024 7:17 AM CDT [facility] PATIENT TEMPERATURE 37.0 Degrees C 02/06/2024 7:17 AM CDT [facility] Blood VENOUS BLOOD SPECIMEN / Unknown Venipuncture / Unknown 02/06/2024 7:03 AM CDT 02/06/2024 7:12 AM CDT Valerie Ruano MD CHEMISTRY [facility] [address] [place] [phone], * SCAN-CARDIAC STRIP (02/06/2024 3:55 AM CDT) Scanner OTHER * CHOLESTEROL,TOTAL (10/25/2020 1:02 PM DISABILITY COUNSELOR) CHOLESTEROL,TO PURVI 142 100 - 199 mg/dL 10/25/2020 5:38 PM DISABILITY COUNSELOR [facility] PROVIDER ORDERED STATUS RANDOM 10/25/2020 5:38 PM DISABILITY COUNSELOR [facility] Blood BLOOD SPECIMEN / Unknown 10/25/2020 1:02 PM DISABILITY COUNSELOR 10/25/2020 5:21 PM DISABILITY COUNSELOR Tamanna Rolon JED CHEMISTRY [facility] [address] [place] [address], [place] * COLONOSCOPY (01/02/2018 11:48 AM CDT) 01/02/2018 11:4 8 AM CDT Narrative Transcriptions Alfredito Lyman MD - 01/02/2018 1:14 PM CDT [facility] Patient Name: Monik Gallego Procedure Date: 01/02/2018 Gender: Female Date of : 1950 Admit Type: Inpatient Procedure: Colonoscopy Proceduralist: Alfred[facility] Lyman [facility] [place] Indications/Pre-Op Diagnosis: Hematochezia Medications: General Procedure Description: [...] 2 Benign Finding Procedure Note Robi Lopez, - 07/10/2008 Benign findings noted on mammogram. For complete description of themammographic examination, please reference scanned document withinExcellian. We are mailing a results letter to the patient. 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 Expl anation Healthcare Directive 01/02/2018 5:54 AM Healthcare Directive 12/31/2017 12:00 AM * Full Code (Latest Code Status on File) Date Activated Date Inactivated Comments 02/06/2024 2:49 AM 02/08/2024 1:45 PM Question Answer Comments Code Status Discussion: Reviewed Preferences * Full Code Date Activated Date Inactivated Comments 07/11/2018 6:13 AM 07/14/2018 2:03 PM * Full Code Date Activated Date Inactivated Comments 12/31/2017 9:37 PM 01/03/2018 3:50 PM Care Teams Tester Equipment Relationship Specialty Start Date End Date Silver Whalen MD [address] [place] [phone] PCP - General Family Practice 12/31/17 Opal Alcantara MD [address] [place] [address] Cardiovascular Disease 05/28/20 Nurses, Advanced Heart Failure [address] [place] [address] Advanced Heart Failure/Transplant Card 05/28/20
--- OUTSIDE RECORDS SUMMARY | 2024-02-11 08:18 | XMS_ITS | Clinical Summary ---
Author Organization [facility] Facility Address [address] [address] Care Team Providers Care Motor Equipment Commanding Officer Name Role Phone Unavailable Primary Care Provider [...]
== END 2024-02-11 08:16 | disposition home or self-care (01) ==
LOC: NFLDREF 08:16
PROVIDERS: PCP Family Medicine; Visit Provider Family Medicine
DX: I50.9 Heart failure, unspecified (principal)
CPT/HCPCS: 80048

== ENCOUNTER 2024-02-12 12:53 | Outpatient (REF) | payer MEDICARE, BC, SELFPAY ==
--- OUTSIDE RECORDS SUMMARY | 2024-02-12 12:58 | XMS_ITS | Clinical Summary ---
Author Organization [facility] Facility Address [address] [address] Care Team Providers Care Detailer School Photographs Name Role Phone Unavailable Primary Care Provider [...]
--- OUTSIDE RECORDS SUMMARY | 2024-02-12 12:58 | XMS_ITS | Continuity of Care Document ---
Author Organization [facility] Address [address] [place] [address] Phone Care Team Providers Care Business Banking Officer Name Role Phone Matthias Simpson MD Unavailable [...] Consultants, [address], [place], [address], tel:[phone] [facility], Abnormal Lab Study (chief complaint) Positive Antibody 1 Calvin Rizzo. [facility] [address], [place], [address], [place]. tel:[phone] Referring Provider: Matthias Sorensen, [facility], PDeidra [address], [place], [address]. tel:[phone] Family History Family Member Type Diagnosis Age At Onset Problem No family history of Systemi c lupus erythematosus Immunizations Vaccine Date Status Comments COVID-19 Pfizer administered Note: 2020 ; Source: Other Provider Payers Payer name Insurance type Covered democrat ID Authoriza timisael(s) [employer] Medicare Advantage/Plat inum Blue BL [id number] Social History Type Description Quantity Date Captured [...]
--- OUTSIDE RECORDS SUMMARY | 2024-02-12 12:58 | XMS_ITS | Clinical Summary ---
Author Organization [facility] Address [place], [place] [address] Care Team Providers Care Transmission Specialist Name Role Phone Silver Whalen MD Primary Care Provider [phone] Opal Alcantara MD Unavailable [phone] Nurses, Advanced Heart Failure Unavailable + Allergies [...] used), whichever comes first. Active vit-mineral eye [id number] mg-lut-zeax (PreserVision AREDS-2) capsule Take 1 Capsule [...] Type Department Care Team Description 02/11/2024 Telephone [email or web address] [facility] [place] [address] [facility] [address] [place] [phone] Olga Ward NP Lab 02/06/2024 12:43 AM CDT - 02/08/2024 11:34 AM CDT Hospital Encounter [facility] [address] [place] [address] [facility] Hospitalists Of Valerie Ruano MD Ramsey, Lucas Blumer, MD Mild concentric left ventricular hypertrophy (LVH) (Primary Dx); Cardiopathy; Acute hypoxic respiratory failure (HC); Tobacco use disorder; Acute on chronic diastolic congestive heart failure (HC) Discharge Disposition: Home Self Care 02/06/2024 Travel 01/24/2024 3:00 PM CDT Ancillary Procedure [facility] [address] [place] [address] from Last 3 Months Immunizations Name Administration [...] Lymphoma Mother Other Other no colon or director hydrogen storage engineering ecological cancers. no premature coronary artery disease. [...] file Travel History Travel Start Travel End [place] 01/18/2024 01/22/2024 Obstetrics History Last Filed Vital [...] Description 02/13/2024 1:00 PM CDT Office Visit [facility] [address] [facility] [address] [place] [address] Olga Ward NP [address] [facility] [address] [place] [address] 03/21/2024 9:50 AM CDT Office Visit [facility] [address] [place] [address] Oni Shaw MD 225 [facility] [address] [place], [place] [phone] Health Maintenance Due Date Last Done Comments [...] age 65+ Completed 2018 (Completed outside of [facility]) Medical Devices Implanted Type Area Office Clerk Device Identifier Shelf Expiration Date Model / Serial / Lot Adhesion Barrier 5x6in Seprafilm Absorb - [id number] Implanted:Qty: 1 on 07/11/2018 by Annamarie Massey MD at [facility] 05/10/2019 4301-02# / / [id number] Adhesion Barrier 5x6in Seprafilm Absorb - [id number] Implanted:Qty: 2 on 07/11/2018 by Annamarie Massey MD at [facility] 09/09/2019 4301-02# / / [id number] Procedures Procedure Name Priority Date/Time Associated Diagnosis [...] (HC) CHOLESTEROL,TOTAL Routine 10/25/2020 1:0 2 PM [employer] 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 [address], * (ABNORMAL) BASIC METABOLIC PANEL (02/08/2024 6:05 AM CDT) Only the most recent of2 resultswithin the time period is included. SODIUM 138 136 - 145 mmol/L 02/08/2024 7:01 AM CDT [facility] POTASSIUM 4.1 3.5 - 5.1 mmol/L 02/08/2024 7:01 AM CDT [facility] CHLORIDE 88(L) 98 - 107 mmol/L 02/08/2024 7:01 AM CDT [facility] CO2,TOTAL 39(H) 22 - 29 mmol/L 02/08/2024 7:01 AM CDT [facility] ANION GAP 11 5 - 18 02/08/2024 7:01 AM CDT [facility] GLUCOSE 93 70 - 99 mg/dL 02/08/2024 7:01 AM CDT [facility] CALCIUM 9.6 8.8 - 10.2 mg/dL 02/08/2024 7:01 AM CDT [facility] BUN 34(H) 8 - 23 mg/dL 02/08/2024 7:01 AM CDT [facility] CREATININE 1.14(H) 0.50 - 0.90 mg/dL 02/08/2024 7:01 AM CDT [facility] BUN/CREAT RATIO 30(H) 10 - 20 7:01 AM T [facility] eGFR 51(L) >90 mL/min/1.7 3m2 02/08/2024 7:01 AM CDT [facility] Comment:As of 2021, eG [...] 6:20 AM CDT Esperanza Joyce NP CHEMISTRY [facility] [address] [place] [address], * SCAN-CARDIAC STRIP (02/08/2024 1:15 AM CDT) [...] 27.1% (896 ml excess). ? Patient Result ?[place] Patient ?? Total Blood Volume ? [id number] [...] by: Gray Benitez MD Cardiology Esperanza Joyce [employer] [place] * HEMATOCRIT (02/07/2024 3:37 PM CDT) HEMATOCRIT 38.5 33.0 - 51.0 % 02/07/2024 4:00 PM CDT [facility] Blood BLOOD SPECIMEN / Unknown Non-Lab Venipuncture / Unknown 02/07/2024 3:37 PM CDT 02/07/2024 3:37 PM CDT Jordan Thompson MD HEMATOLOGY [facility] [address] [place] [address], * EXTRA TUBE LAVENDER (02/07/2024 3:15 PM CDT) Blood BLOOD SPECIMEN / Unknown Non-Lab Venipuncture / Unknown 02/07/2024 3:15 PM CDT 02/07/2024 4:48 PM CDT Jordan Thompson MD LABORATORY [facility] [address] [place] [address], [place] * ECHO TTE COMPLETE WO CONTRAST (02/07/2024 2:55 PM CDT) Only the most recent of2 resultswithin the time period is included. AORTIC VALVE MEAN PG 5 mmHg EJECTION FRACTION 72 % PEAK TR VELOCITY 3.0 m/s LVEDD 4.9 cm Anatomical Region Laterality Modality Ultrasound 02/07/2024 12:3 9 PM CDT Narrative 02/07/2024 3:34 PM CDT ECHOCARDIOGRAM MONIK GALLEGO ? Accession#: ?? [id number] : ?1950 73 years Study Date: ?? 02/07/2024 12:39:00 PM Gender: F ?BP: ? 107/53 mmHg Height: 165.00 cm ?BSA: ?2.09 m? ? ? Weight: 103.00 kg ?Tech: ? GG/TRAVELER ? Referring MD: VALERIE RUANO SCOTT Site: ? [facility] Reading Location: [facility]- Patient Location: Inpatient. Procedure: [...] . This study was interpreted by an [facility] accredited facility. ??Final ?? Procedure Note Reyna Arnold, [facility] - 02/07/2024 ECHOCARDIOGRAM MONIK GALLEGO : 1950 73 years Study Date: 02/07/2024 12:39:00 PM Gender: F BP: 107/53 mmHg Height: 165.00 cm BSA: 2.09 m? ? ? Weight: 103.00 kg Tech: GG/TRAVELER Referring MD: VALERIE RUANO SCOTT Site: [facility] Reading Location: [facility] Patient Location: Inpatient. Procedure: 2D, Color [...] . This study was interpreted by an [facility] accredited facility. Final Valerie Ruano MD ECHO ORD * POTASSIUM (02/07/2024 7:58 AM CDT) Only the most recent of2 resultswithin the time period is included. POTASSIUM 4.5 3.5 - 5.1 mmol/L 02/07/2024 9:10 AM CDT [facility] Blood BLOOD SPECIMEN / Unknown Venipuncture / Unknown 02/07/2024 7:58 AM CDT 02/07/2024 8:03 AM CDT Jordan Thompson MD CHEMISTRY [facility] [address] [place] [address], * (ABNORMAL) CBC no diff AM (02/07/2024 6:29 AM CDT) WHITE BLOOD COUNT 13.3(H) 4.5 - 11.0 thou/cu mm 02/07/2024 6:56 AM CDT [facility] RED BLOOD COUNT 3.94(L) 4.00 - 5.20 mil/cu mm 02/07/2024 6:56 AM CDT [facility] HEMOGLOBIN 12.1 12.0 - 16.0 g/dL 02/07/2024 6:56 AM CDT [facility] HEMATOCRIT 38.9 33.0 - 51.0 % 02/07/2024 6:56 AM CDT [facility] MCV 99 80 - 100 fL 02/07/2024 6:56 AM CDT [facility] MCH 30.7 26.0 - 34.0 pg 02/07/2024 6:56 AM CDT [facility] MCHC 31.1(L) 32.0 - 36.0 g/dL 02/07/2024 6:56 AM T [facility] RDW 13.8 11.5 - 15.5 % 02/07/2024 6:56 AM T [facility] PLATELET COUNT 316 140 - 440 thou/cu mm 02/07/2024 6:56 AM CDT [facility] MPV 8.8 6.5 - 11.0 fL 02/07/2024 6:56 AM CDT [facility] NRBC 0.0 % 02/07/2024 6:56 AM CDT [facility] ABS NRBC 0.0 thou /cu mm 02/07/2024 6:56 AM CDT [facility] Blood BLOOD SPECIMEN / Unknown Venipuncture / Unknown 02/07/2024 6:29 AM CDT 02/07/2024 6:42 AM CDT Jordan Thompson MD HEMATOLOGY Performing Organization Address [facility] Co de Phone Number [facility] [address] [place] [address], * MAGNESIUM (02/07/2024 6:29 AM CDT) Only the most recent of2 resultswithin the time period is included. MAGNESIUM 1.6 1.6 - 2.4 mg/dL 02/07/2024 7:11 AM CDT [facility] Blood BLOOD SPECIMEN / Unknown Venipuncture / Unknown 02/07/2024 6:29 AM CDT 02/07/2024 6:42 AM CDT Jordan Thompson MD CHEMISTRY Performing Organization Address [facility] Co de Phone Number [facility] [address] [place] [address], * SCAN-CARDIAC STRIP (02/07/2024 12:49 AM CDT) [...] * HEMOGLOBIN (02/06/2024 7:04 AM CDT) Pathologist [facility] HEMOGLOBIN 12.2 12.0 - 16.0 g/dL 02/06/2024 7:18 AM CDT [facility] MCV 100 80 - 100 fL 02/06/2024 7:18 AM CDT [facility] Blood BLOOD SPECIMEN / Unknown Non-Lab Venipuncture / Unknown 02/06/2024 7:04 AM CDT 02/06/2024 7:12 AM CDT Valerie Ruano MD HEMATOLOGY Performing Organization Address City/[facility]/ZIP Co de Phone Number [facility] [address] [place] [address], * SODIUM (02/06/2024 7:04 AM CDT) [facility] SODIUM 138 136 - 145 mmol/L 02/06/2024 7:37 AM CDT [facility] Blood BLOOD SPECIMEN / Unknown Venipuncture / Unknown 02/06/2024 7:04 AM CDT 02/06/2024 7:12 AM CDT Valerie Ruano MD CHEMISTRY Performing Organization Address City/[facility]/ZIP Co de Phone Number [facility] [address] [place] [address], [place] * (ABNORMAL) CREATININE (02/06/2024 7:04 AM CDT) Pathologist [facility] eGFR 57(L) >90 mL/min/1.7 3m2 02/06/2024 7:37 AM CDT [facility] Comment:As of 2021, eG FR is calculated by the CKD-EPI creatinine equation without race adjustment. ??eGFR can be influenced by muscle mass, exercise, and diet. ??The reported eGFR is an estimation only and is only applicable if the renal function is stable. CREATININE 1.04(H) 0.50 - 0.90 mg/dL 02/06/2024 7:37 AM CDT [facility] Blood BLOOD SPECIMEN / Unknown Venipuncture / Unknown 02/06/2024 7:04 AM CDT 02/06/2024 7:12 AM CDT Valerie Ruano MD CHEMISTRY Performing Organization Address [facility] Co de Phone Number [facility] [address] [address], [place] * (ABNORMAL) BLOOD GAS,VENOUS (02/06/2024 7:03 AM CDT) PH, VENOUS 7.37 7.32 - 7.43 02/06/2024 7:17 AM CDT [facility] PCO2, VENOUS 63(H) 41 - 51 mmHg 02/06/2024 7:17 AM CDT [facility] PO2, VENOUS 56(H) 35 - 40 mmHg 02/06/2024 7:17 AM CDT [facility] HCO3,VENOUS 36(H) 22 - 29 mmol/L 02/06/2024 7:17 AM CDT [facility] BASE EXCESS, VENOUS, POCT 8.7(H) -2.0 - 3.0 02/06/2024 7:17 AM CDT [facility] O2 SATURATION, VENOUS 87(H) 70 - 75 % 02/06/2024 7:17 AM CDT [facility] PATIENT TEMPERATURE 37.0 Degrees C 02/06/2024 7:17 AM CDT [facility] Blood VENOUS BLOOD SPECIMEN / Unknown Venipuncture / Unknown 02/06/2024 7:03 AM CDT 02/06/2024 7:12 AM CDT Valerie Ruano MD CHEMISTRY Performing Organization Address [facility]/ZIP Co de Phone Number [facility] [address] [address], [place] * SCAN-CARDIAC STRIP (02/06/2024 3:55 AM CDT) Scanner OTHER * CHOLESTEROL,TOTAL (10/25/2020 1:02 PM [employer]) CHOLESTEROL,TO PURVI 142 100 - 199 mg/dL 10/25/2020 5:38 PM [employer] [facility] PROVIDER ORDERED STATUS RANDOM 10/25/2020 5:38 PM [employer] [facility] Blood BLOOD SPECIMEN / Unknown 10/25/2020 1:02 PM [employer] 10/25/2020 5:21 PM [employer] Tamanna Rolon NP CHEMISTRY [facility] [address] [place] [address], [place] * COLONOSCOPY (01/02/2018 11:48 AM CDT) 01/02/2018 11:4 8 AM CDT Narrative Transcriptions Alfredito Lyman MD - 01/02/2018 1:14 PM CDT [facility] Patient Name: Monik Gallego Procedure Date: 01/02/2018 Gender: Female Date of : 1950 Admit Type: Inpatient Procedure: Colonoscopy Proceduralist: Alfredito Lyman MD - [facility] Indications/Pre-Op Diagnosis: Hematochezia Medications: General Procedure Description: [...] Documents on File Type Date Recorded Patient Neurology Specialist Expl anation Healthcare Directive 01/02/2018 5:54 AM [...] 9:37 PM 01/03/2018 3:50 PM Care Teams Transmission Specialist Relationship Specialty Start Date End Date Silver Whalen MD [address] [place] [phone] PCP - General Family Practice 12/31/17 Opal Alcantara MD [address] [place] [id number] Cardiovascular Disease 05/28/20 Nurses, Advanced Heart Failure [address] [place] [address] Advanced Heart Failure/Transplant Card 05/28/20
[2024-02-12 14:14] LABS: Chloride* 90 mmol/L (96-114); Sodium* 136 mmol/L (135-149)
[2024-02-12 14:15] LABS: Potassium* 4.5 mmol/L (3.6-5.1)
[2024-02-12 14:17] LABS: Anion Gap 7 mEq/L (7-15); Carbon Dioxide* 39 mmol/L (20-32); Creatinine* 1.4 mg/dL (0.5-1.5); Estimated Glomerular Filt Rate 39 ml/min
[2024-02-12 14:18] LABS: Blood Urea Nitrogen* 57 mg/dL (7-30); Calcium* 9.1 mg/dL (8.4-10.6); Glucose* 99 mg/dL (60-115)
[2024-02-12 14:27] LABS: NT Pro B Type NatriureticPept* 212 pg/mL
== END 2024-02-12 12:54 | disposition home or self-care (01) ==
LOC: NPINS 12:53
PROVIDERS: PCP Family Medicine; Visit Provider Nurse Practitioner Primary Care
DX: I50.30 Unspecified diastolic (congestive) heart failure (principal)
CPT/HCPCS: 80048; 83880

== ENCOUNTER 2024-03-03 08:33 | Outpatient (CLI) | payer MEDICARE, BC, SELFPAY ==
--- OUTSIDE RECORDS SUMMARY | 2024-03-03 08:36 | XMS_ITS | Clinical Summary ---
Author Organization [employer] [facility] [facility] Address [place], [place] [address] Care Team Providers Care Silo Operator Name Role Phone Silver Whalen MD Primary Care Provider [phone] Opal Alcantara MD Unavailable [phone] Nurses, Advanced Heart Failure Unavailable + Allergies [...] 2 times daily. 3 05/25/20 20 Active CPAPIndications:O SA (obstructive sleep apnea) CPAP, [...] used), whichever comes first. Active vit-mineral eye [id number] mg-lut-zeax (PreserVision AREDS-2) capsule Take 1 Capsule by mouth two times daily. Active albuterol-ipratro pium (DUONEB) (2.5-0.5 mg) in 3 mL NEBULIZATION solution USE ONE VIAL IN NEBULIZER INHALED EVERY 6 HOURS. 01/25/20 24 Active furosemide (LASIX) 40 mg tabletIndications :Cardiopathy Take 1 Tablet (40 mg) by mouth once daily in the morning. 90 Tablet 3 02/22/20 24 Active oxygen-air delivery systems (HOME OXYGEN)Indication s:MONIKA (obstructive sleep apnea) Portable Oxygen Concentrator - 3L per NC pulse with activity, use at home for lifetime 1 Each 06/16/20 21 024 Discontinued(Ph armacist change per medication history (E-cancel not sent)) amLODIPine (NORVASC) 10 mg tablet Take 10 mg by mouth once daily. 04/13/20 21 024 Discontinued(*P atient states no longer taking) furosemide (LASIX) 40 mg tabletIndications :Cardiopathy Take [...] 2 05/22/20 23 024 Discontinued(*I P Discontinued) furosemide (LASIX) 40 mg tabletIndications :Cardiopathy Take 1 Tablet (40 mg) by mouth once daily in the morning. 30 Tablet 2 02/08/20 24 024 Discontinued(*M edication adjustment) furosemide (LASIX) 40 mg tabletIndications :Cardiopathy Take 1.5 Tablets (60 mg) by mouth once daily in the morning. 120 Tablet 2 02/13/20 24 024 Discontinued(*M edication adjustment) Active Problems Problem Noted Date Diagnosed Date [...] Encounters Date Type Department Care Team Description 02/20/2024 Telephone [employer] [facility] [address] [place] [address] Esperanza Joyce, PROJECT MANAGEMENT SPECIALIST Follow Up (Update on Furosemide (Lasix) tolerance) 02/18/2024 Orders Only [facility] Staff, Other Clinical 1 scan: (1-Ord) [facility] 02/13/2024 1:00 PM CDT Office Visit [facility] [address] [place] [address] Olga Ward NP CV Heart Failure New (Hosp. F/u) 02/13/2024 Telephone [facility] [address] [facility] [address] [place] [phone] Esperanza Joyce NP Follow Up (SGLT2 Coverage) 02/11/2024 Telephone [facility] [address] [facility] [address] [place] [address] Olga Ward NP Lab 02/06/2024 12:43 AM CDT - 02/08/2024 11:34 AM CDT Hospital Encounter [facility] [address] [place] [address] [facility] Hospitalists Of Valerie Ruano MD Ramsey, Jordan Guadarrama MD Mild concentric left ventricular hypertrophy (LVH) (Primary Dx); Cardiopathy; Acute hypoxic respiratory failure (HC); Tobacco use disorder; Acute on chronic diastolic congestive heart failure (HC) Discharge Disposition: Home Self Care 02/06/2024 Travel 01/24/2024 3:00 PM CDT Ancillary Procedure [facility] [address] [place] [address] from Last 3 Months Immunizations Name Administration [...] Lymphoma Mother Other Other no colon or check services clerk ecological cancers. no premature coronary artery disease. [...] Sign Reading Time Taken Comments Blood Pressure 99/50 02/13/2024 12:50 PM CDT Pulse 74 02/13/2024 12:50 PM CDT Temperature 36.7 ??C (98.1 ??F) 02/08/2024 7:51 AM CD T Respiratory Rate 18 02/08/2024 7:51 AM CDT Oxygen Saturation 91% 02/13/2024 12:50 PM CDT Inhaled Oxygen Concentration - - Weight 102.1 kg (225 lb) 02/13/2024 12:50 PM CDT Height 165.1 cm (5' 5) 02/13/2024 12:50 PM CDT Body Mass Index 37.44 02/13/2024 12:50 PM CDT Plan of Treatment Upcoming Encounters Date Type Department Care Team (Late st Contact Info) Description 03/06/2024 11:00 AM CDT Office Visit [facility] [address] [place] [address] Radha House MD [address] [place] [address] 03/21/2024 9:50 AM CDT Office Visit [facility] [address] [place] [address] Oni Shaw MD [address] [facility] [address] [place] [address] Health Maintenance Due Date Last Done Comments Depression screening for age 12+ 1961 Hepatitis C screening for ag e 18-79 1967 Medicare Wellness for age 65+ 2014 Pneumococcal series for age 65+ (2 of 2 - PCV) 10/27/2015 10/27/2014 Mammogram for age 45-75 03/10/2021 03/10/20 20 (Completed outside of [facility]), 07/09/2008 Tetanus booster 05/05/2021 05/05/2011, 12/12/2002 COVID-19 vaccine series (2022- season) 2023 08/16/2023, 07/14/2022, 01/31/2022, Additional history exists Influenza for age 65+ 05/11/2024 07/02/2018 , 01/16/2018, 07/09/2008, Additional history exists BMI (ht and wt on same day) for age 18+ 02/12/2025 02/13/2024, 03/23/2023, 09/15/2022, Additional history exists Lipids for age 45-75 10/25/2025 10/25/2020, 09/27/2020, 08/30/2020, Additional history exists Colonoscopy through age 75 01/03/2028 01/02/2018, Tdap Completed 05/05/2011 Zoster (shingles) series for age 50+ Completed 05/23/2019, 02/17/2019 DEXA/DXA scan for age 65+ Completed 2018 (Completed outside of [facility]) Medical Devices Implanted Type Area Host And Hostess Device Identifier Shelf Expiration Date Model / Serial / Lot Adhesion Barrier 5x6in Seprafilm Absorb - [id number] Implanted:Qty: 1 on 07/11/2018 by Annamarie Massey MD at [facility] [employer] 05/10/2019 4301-02# / / [id number] Adhesion Barrier 5x6in Seprafilm Absorb - [id number] Implanted:Qty: 2 on 07/11/2018 by Annamarie Massey MD at [facility] [employer] 09/09/2019 4301-02# / / [id number] Procedures Procedure Name Priority Date/Time Associated Diagnosis Comments SCAN CORRESP-LABORATORY RESULTS 02/18/2024 8:08 AM CDT WHITE BLOOD COUNT Early AM 02/08/2024 6:0 [...] (HC) CHOLESTEROL,TOTAL Routine 10/25/2020 1:0 2 PM CITIZENSHIP INSTRUCTOR 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) Encounter for examination for normal comparison and control in clinical research program COLONOSCOPY 01/02/2018 11:48 AM CDT XR MAMMO BILAT SCREEN FFDM (IA) Routine 07/09/2008 8:31 AM CDT Other Screening Mammogram from Last 3 Months or Most Recently Relevant to Health Maintenance Results * SCAN CORRESP-LABORATORY RESULTS (02/18/2024 8:08 AM CDT) Narrative 02/18/2024 8:08 AM CDT Ordered by an unspecified provider. Other Clinical Staff OTHER * (ABNORMAL) WBC AM (02/08/2024 6:05 AM CDT) WHITE BLOOD COUNT 11.4(H) 4.5 - 11.0 thou/cu mm 02/08/2024 6:27 AM CDT [facility] NRBC 0.0 % 02/08/2024 6:27 AM CDT [facility] ABS NRBC 0.0 thou /cu mm 02/08/2024 6:27 AM CDT [facility] Blood BLOOD SPECIMEN / Unknown Venipuncture / Unknown 02/08/2024 6:05 AM CDT 02/08/2024 6:19 AM CDT Jordan Thompson MD HEMATOLOGY [facility] [address] [place] [address], * (ABNORMAL) BASIC METABOLIC PANEL (02/08/2024 6:05 AM CDT) Only the most recent of2 resultswithin the time period is included. SODIUM 138 136 - 145 mmol/L 02/08/2024 7:01 AM CDT [facility] POTASSIUM 4.1 3.5 - 5.1 mmol/L 02/08/2024 7:01 AM T [facility] CHLORIDE 88(L) 98 - 107 mmol/L 02/08/2024 7:01 AM T [facility] CO2,TOTAL 39(H) 22 - 29 mmol/L 02/08/2024 7:01 AM T [facility] ANION GAP 11 5 - 18 02/08/2024 7:01 AM T [facility] GLUCOSE 93 70 - 99 mg/dL 02/08/2024 7:01 AM T [facility] CALCIUM 9.6 8.8 - 10.2 mg/dL 02/08/2024 7:01 AM T [facility] BUN 34(H) 8 - 23 mg/dL 02/08/2024 7:01 AM CDT [facility] CREATININE 1.14(H) 0.50 - 0.90 mg/dL 02/08/2024 7:01 AM CDT [facility] BUN/CREAT RATIO 30(H) 10 - 20 7:01 AM CDT [facility] eGFR 51(L) >90 mL/min/1.7 3m2 02/08/2024 7:01 AM CDT [facility] Comment:As of 2021, eG FR [...] 6:20 AM CDT Esperanza Joyce NP CHEMISTRY [facility] [address] [place] [address], * SCAN-CARDIAC STRIP (02/08/2024 1:15 AM CDT) [...] 27.1% (896 ml excess). ? Patient Result ?[place] Patient ?? Total Blood Volume ? [id number] [...] by: Gray Benitez MD Cardiology Esperanza Joyce PROJECT MANAGEMENT SPECIALIST [place] * HEMATOCRIT (02/07/2024 3:37 PM CDT) [facility] Signature HEMATOCRIT 38.5 33.0 - 51.0 % 02/07/2024 4:00 PM CDT [facility] Blood BLOOD SPECIMEN / Unknown Non-Lab Venipuncture / Unknown 02/07/2024 3:37 PM CDT 02/07/2024 3:37 PM CDT Jordan Thompson MD [facility] [address] [place] [address], [place] * EXTRA TUBE LAVENDER (02/07/2024 3:15 PM CDT) Blood BLOOD SPECIMEN / Unknown Non-Lab Venipuncture / Unknown 02/07/2024 3:15 PM CDT 02/07/2024 4:48 PM CDT Jordan Thompson MD LABORATORY Performing Organization Address City/[facility] [address]/[facility] Co de Phone Number [facility] [address] [place] [address], [place] * ECHO TTE COMPLETE WO CONTRAST (02/07/2024 2:55 PM CDT) Only the most recent of2 resultswithin the time period is included. AORTIC VALVE MEAN PG 5 mmHg EJECTION FRACTION 72 % PEAK TR VELOCITY 3.0 m/s LVEDD 4.9 cm Anatomical Region Laterality Modality Ultrasound 02/07/2024 12:3 9 PM CDT Narrative 02/07/2024 3:34 PM CDT ECHOCARDIOGRAM MONIK GALLEGO ? Accession#: ?? [id number] : ?1950 73 years Study Date: ?? 02/07/2024 12:39:00 PM Gender: F ?BP: ? 107/53 mmHg Height: 165.00 cm ?BSA: ?2.09 m? ? ? Weight: 103.00 kg ?Tech: ? GG/TRAVELER ? Referring MD: VALERIE RUANO SCOTT Site: ? [facility] Reading Location: [facility]- Patient Location: Inpatient. Procedure: [...] . This study was interpreted by an [facility] accredited facility. ??Final ?? Procedure Note Reyna Arnold, [facility] - 02/07/2024 ECHOCARDIOGRAM MONIK GALLEGO : 1950 73 years Study Date: 02/07/2024 12:39:00 PM Gender: F BP: 107/53 mmHg Height: 165.00 cm BSA: 2.09 m? ? ? Weight: 103.00 kg Tech: GG/TRAVELER Referring MD: VALERIE RUANO SCOTT Site: [facility] Reading Location: [facility]- Patient Location: Inpatient. Procedure: 2D, Color Doppler [...] . This study was interpreted by an [facility] accredited facility. Final Valerie Ruano MD ECHO ORD * POTASSIUM (02/07/2024 7:58 AM CDT) Only the most recent of2 resultswithin the time period is included. POTASSIUM 4.5 3.5 - 5.1 mmol/L 02/07/2024 9:10 AM CDT [facility] Blood BLOOD SPECIMEN / Unknown Venipuncture / Unknown 02/07/2024 7:58 AM CDT 02/07/2024 8:03 AM CDT Jordan Thompson MD CHEMISTRY [facility] [address] [place] [address], [place] * (ABNORMAL) CBC no diff AM (02/07/2024 6:29 AM CDT) Pathologist [facility] WHITE BLOOD COUNT 13.3(H) 4.5 - 11.0 thou/cu mm 02/07/2024 6:56 AM T [facility] RED BLOOD COUNT 3.94(L) 4.00 - 5.20 mil/cu mm 02/07/2024 6:56 AM T [facility] HEMOGLOBIN 12.1 12.0 - 16.0 g/dL 02/07/2024 6:56 AM T [facility] HEMATOCRIT 38.9 33.0 - 51.0 % 02/07/2024 6:56 AM [facility] MCV 99 80 - 100 fL 02/07/2024 6:56 AM [facility] MCH 30.7 26.0 - 34.0 pg 02/07/2024 6:56 AM T [facility] MCHC 31.1(L) 32.0 - 36.0 g/dL 02/07/2024 6:56 AM T [facility] RDW 13.8 11.5 - 15.5 % 02/07/2024 6:56 AM [facility] PLATELET COUNT 316 140 - 440 thou/cu mm 02/07/2024 6:56 AM T [facility] MPV 8.8 6.5 - 11.0 fL 02/07/2024 6:56 AM [facility] NRBC 0.0 % 02/07/2024 6:56 AM CDT [facility] ABS NRBC 0.0 thou /cu mm 02/07/2024 6:56 AM CDT [facility] Blood BLOOD SPECIMEN / Unknown Venipuncture / Unknown 02/07/2024 6:29 AM CDT 02/07/2024 6:42 AM CDT Jordan Thompson MD HEMATOLOGY Performing Organization Address [facility] [address] [facility] Co de Phone Number [facility] [address] [place] [address], * MAGNESIUM (02/07/2024 6:29 AM CDT) Only the most recent of2 resultswithin the time period is included. MAGNESIUM 1.6 1.6 - 2.4 mg/dL 02/07/2024 7:11 AM CDT [facility] Blood BLOOD SPECIMEN / Unknown Venipuncture / Unknown 02/07/2024 6:29 AM CDT 02/07/2024 6:42 AM CDT Jordan Thompson MD CHEMISTRY Performing Organization Address [facility] Phone Number [facility] [address] [place] [address], * SCAN-CARDIAC STRIP (02/07/2024 12:49 AM CDT) [...] For Patients: ??As a result of the Century Cures Act, medical imaging exams and [...] - 16.0 g/dL 02/06/2024 7:18 AM CDT [facility] MCV 100 80 - 100 fL 02/06/2024 7:18 AM CDT [facility] Blood BLOOD SPECIMEN / Unknown Non-Lab Venipuncture / Unknown 02/06/2024 7:04 AM CDT 02/06/2024 7:12 AM CDT Valerie Ruano MD HEMATOLOGY Performing Organization Address City/[facility] [address]/ZIP Co de Phone Number [facility] [address] [place] [address], * SODIUM (02/06/2024 7:04 AM CDT) SODIUM 138 136 - 145 mmol/L 02/06/2024 7:37 AM CDT [facility] Blood BLOOD SPECIMEN / Unknown Venipuncture / Unknown 02/06/2024 7:04 AM CDT 02/06/2024 7:12 AM CDT Valerie Ruano MD CHEMISTRY Performing Organization Address [facility] Co de Phone Number [facility] [address] [place] [address], * (ABNORMAL) CREATININE (02/06/2024 7:04 AM CDT) eGFR 57(L) >90 mL/min/1.7 3m2 02/06/2024 7:37 AM CDT [facility] Comment:As of 2021, eG FR is calculated by the CKD-EPI creatinine equation without race adjustment. ??eGFR can be influenced by muscle mass, exercise, and diet. ??The reported eGFR is an estimation only and is only applicable if the renal function is stable. CREATININE 1.04(H) 0.50 - 0.90 mg/dL 02/06/2024 7:37 AM CDT [facility] Blood BLOOD SPECIMEN / Unknown Venipuncture / Unknown 02/06/2024 7:04 AM CDT 02/06/2024 7:12 AM CDT Valerie Ruano MD CHEMISTRY Performing Organization Address City/[facility] [address]/ZIP Co de Phone Number [facility] [address] [place] [address], * (ABNORMAL) BLOOD GAS,VENOUS (02/06/2024 7:03 AM CDT) PH, VENOUS 7.37 7.32 - 7.43 02/06/2024 7:17 AM CDT [facility] PCO2, VENOUS 63(H) 41 - 51 mmHg 02/06/2024 7:17 AM CDT [facility] PO2, VENOUS 56(H) 35 - 40 mmHg 02/06/2024 7:17 AM CDT [facility] HCO3,VENOUS 36(H) 22 - 29 mmol/L 02/06/2024 7:17 AM CDT [facility] BASE EXCESS, VENOUS, POCT 8.7(H) -2.0 - 3.0 02/06/2024 7:17 AM CDT [facility] O2 SATURATION, VENOUS 87(H) 70 - 75 % 02/06/2024 7:17 AM CDT [facility] PATIENT TEMPERATURE 37.0 Degrees C 02/06/2024 7:17 AM CDT [facility] Blood VENOUS BLOOD SPECIMEN / Unknown Venipuncture / Unknown 02/06/2024 7:03 AM CDT 02/06/2024 7:12 AM CDT Valerie Ruano MD CHEMISTRY [facility] [address] [place] [address], * SCAN-CARDIAC STRIP (02/06/2024 3:55 AM CDT) Scanner OTHER * CHOLESTEROL,TOTAL (10/25/2020 1:02 PM CITIZENSHIP INSTRUCTOR) CHOLESTEROL,TO PURVI 142 100 - 199 mg/dL 10/25/2020 5:38 PM CITIZENSHIP INSTRUCTOR [facility] PROVIDER ORDERED STATUS RANDOM 10/25/2020 5:38 PM CITIZENSHIP INSTRUCTOR [facility] Blood BLOOD SPECIMEN / Unknown 10/25/2020 1:02 PM CITIZENSHIP INSTRUCTOR 10/25/2020 5:21 PM CITIZENSHIP INSTRUCTOR Tamanna Rolon NP CHEMISTRY [facility] [address] [place] [address], [place] * COLONOSCOPY (01/02/2018 11:48 AM CDT) 01/02/2018 11:4 8 AM CDT Narrative Transcriptions Alfredito Lyman MD - 01/02/2018 1:14 PM CDT [facility] Patient Name: Monik Gallego Procedure Date: 01/02/2018 Gender: Female Date of : 1950 Admit Type: Inpatient Procedure: Colonoscopy Proceduralist: [facility] Indications/Pre-Op Diagnosis: Hematochezia Medications: General Procedure Description: [...] Documents on File Type Date Recorded Patient Elevator Supervisor Expl anation Healthcare Directive 01/02/2018 5:54 AM [...] 9:37 PM 01/03/2018 3:50 PM Care Teams Silo Operator Relationship Specialty Start Date End Date Silver Whalen MD [address] [place] [address] PCP - General Family Practice 12/31/17 Opal Alcantara MD [address] [facility] [place] [address] Cardiovascular Disease 05/28/20 Nurses, Advanced Heart Failure [address] [place] [address] Advanced Heart Failure/Transplant Card 05/28/20
--- OUTSIDE RECORDS SUMMARY | 2024-03-03 08:36 | XMS_ITS | Clinical Summary ---
Author Organization [facility] Facility Address [address] [address] Care Team Providers Care Food Service Cashier Name Role Phone Unavailable Primary Care Provider [...]
--- OUTSIDE RECORDS SUMMARY | 2024-03-03 08:36 | XMS_ITS | Continuity of Care Document ---
Author Organization [facility] Address [address] [place] [address] Phone Care Team Providers Care Muleser Name Role Phone Matthias Simpson MD Unavailable [...] Consultants, [address], [place], [address], tel:[phone] [facility], Abnormal Lab Study (chief complaint) Positive Antibody 1 Calvin Rizzo. [facility] [address], [place], [address], [place]. tel:[phone] Referring Provider: Matthias Sorensen, [facility], PDeidra [address], [place], [address]. tel:[phone] Family History Family Member Type Diagnosis Age At Onset Problem No family history of Systemi c lupus erythematosus Immunizations Vaccine Date Status Comments COVID-19 Pfizer administered Note: 2020 ; Source: Other Provider Payers Payer name Insurance type Covered libertarian ID Authoriza timisael(s) [employer] Medicare Advantage/Plat inum Blue BL [id number] Social History Type Description Quantity Date Captured [...]
--- NOTE | 2024-03-03 09:00 | CRLHL7_ITS ---
For Patients: As a result of the Century Cures Act, medical imaging exams and procedure reports are released immediately into your electronic medical record. You may view this report before your referring provider. If you have questions, please contact your health care provider. INDICATION: Primary malignant neoplasm of fallopian tube TECHNIQUE: CT chest, abdomen and pelvis acquired with 108 mL Isovue 370 IV contrast. COMPARISON: 01/24/[address], 09/04/2023 and 05/10/2023 chest abdomen pelvis CTs FINDINGS: CHEST: Cardiovascular structures: Heart size is normal. Thoracic aorta and main pulmonary artery are normal in caliber. Coronary artery calcifications. Mediastinum and catherine: No mass or adenopathy. Lungs and pleura: Stable tiny right upper lobe pulmonary nodule. No new nodules. Mild scarring or atelectasis in the lung bases. Resolution of previously seen interlobular septal thickening and pleural effusions. Chest wall and axilla: No mass or adenopathy. Bones: No suspicious bone lesions. Unremarkable for age. ABDOMEN AND PELVIS: Liver: Unremarkable. Gallbladder and bile ducts: Unremarkable. Pancreas: Unremarkable. Spleen: Unremarkable. Adrenal glands: Unremarkable. Kidneys: Bilateral cysts. GI tract: Unremarkable. Vascular structures: Atherosclerosis. Lymph nodes: Unremarkable. Miscellaneous: Fat containing ventral hernia just to the right of the umbilicus. Pelvic Organs: Hysterectomy. Bones: No suspicious bone lesions. Unremarkable for age. IMPRESSION: 1. No evidence for recurrent or metastatic disease. 2. Pleural effusions and interlobular septal thickening in the lungs have resolved since most recent prior exam. Please note that all CT scans at this facility use dose modulation, iterative reconstruction, and/or weight-based dosing when appropriate to reduce radiation dose to as low as reasonably achievable. Dictated by Jas Keenan MD @ 03/04/2024 10:04:07 AM (Electronically Signed)
== END 2024-03-03 08:34 | disposition home or self-care (01) ==
LOC: CT 08:33
PROVIDERS: PCP Family Medicine; Visit Provider Obstetrics & Gynecology Gynecologic Oncology
DX: C57.00 Malignant neoplasm of unspecified fallopian tube (principal); J90 Pleural effusion, not elsewhere classified
CPT/HCPCS: 71260; 74177; Q9967

== ENCOUNTER 2024-03-25 10:20 | Outpatient (CLI) | payer MEDICARE, BC, SELFPAY ==
--- OUTSIDE RECORDS SUMMARY | 2024-03-28 01:40 | XMS_ITS | Clinical Summary ---
Author Organization [facility] Address [place], [place] [address] Care Team Providers Care Mass Communications Professor Name Role Phone Silver Whalen MD Primary Care Provider [phone] Opal Alcantara MD Unavailable [phone] Nurses, Advanced Heart Failure Unavailable + Allergies Active Allergy Reactions Criticality Noted Date Comments Duloxetine Rash Medium 04/03/2019 Medications Medication Sig Dispensed Refills Start Date End Date Status aspirin chewable 81 mg chewable tablet Take 1 tablet by mouth once daily with a meal. 0 04/03/2019 Active gabapentin (NEURONTIN) 300 mg capsule Take 2 capsules by mouth 2 times daily. 3 05/25/2020 Active CPAPIndications:MONIKA (obstructive sleep apnea) CPAP, heated [...] by mouth once daily. 0 06/23/2022 Active losartan (COZAAR) 25 mg tabletIndications:Ca rdiopathy Take 1 Tablet (25 mg) by mouth once daily. 05/18/2023 Active atenoloL (TENORMIN) 50 mg tablet Take 1 Tablet (50 mg) by mouth two times daily. 05/18/2023 Active oxygen-air delivery systems (HOME OXYGEN)Indications:C hronic hypoxemic respiratory failure (HC) Oxygen for home use. Liters per minute: 4 L bled into CPAP and 2 per nasal cannula with activity Frequency of use: Continuous with portability. Length of need: 99 Months. 1 Each 10/15/2023 Active fluticasone furoate-vilanteroL (Breo Ellipta) 100-25 mcg/dose inhalation powder Inhale 1 Puff by mouth once daily. Active umeclidinium (Incruse Ellipta) 62.5 mcg/actuation inhaler Inhale 1 Puff by mouth once daily. Discard inhaler 6 weeks after opening or when the counter reads '0' (after all blisters have been used), whichever comes first. Active vit-mineral eye [id number]- lut-zeax (PreserVision AREDS-2) capsule Take 1 Capsule by mouth two times daily. Active albuterol-ipratropiu m (DUONEB) (2.5-0.5 mg) in 3 mL NEBULIZATION solution USE ONE VIAL IN NEBULIZER INHALED EVERY 6 HOURS. 01/25/2024 Active furosemide (LASIX) 40 mg tabletIndications:Ca rdiopathy Take 1 Tablet (40 mg) by mouth once daily in the morning. 90 Tablet 3 02/22/2024 Active Farxiga 10 mg tabletIndications:Ca rdiopathy Take 1 Tablet (10 mg) by mouth once daily. 30 Tablet 2 03/06/2024 Active fluticasone propion-salmeteroL (Advair Diskus) 250-50 mcg/Dose diskus inhalerIndications:C hronic obstructive pulmonary disease, unspecified COPD type (HC) Inhale 1 Puff by mouth every 12 hours. 60 Each 12 03/21/2024 Active Active Problems Problem Noted Date Diagnosed [...] Encounters Date Type Department Care Team Description 03/25/2024 Orders Only [facility] Scanner 1 scan: (1-Ord) [place], LAB RESULTS, 03/25/2024 03/25/2024 Telephone [facility] [place], [place] [address] [phone] Radha House MD Results (BMP, proBNP) 03/21/2024 9:50 AM CDT Office Visit [address] [address] Oni Shaw MD Follow Up (COPD/MONIKA) 03/21/2024 Travel 03/06/2024 11:00 AM CDT Office Visit [facility] [address] [place] [address] Radha House MD 02/20/2024 Telephone [facility] [place], [place] [address] [phone] Esperanza Joyce NP Follow Up (Update on Furosemide (Lasix) tolerance) 02/18/2024 Orders Only [facility] Staff, Other Clinical 1 scan: (1-Ord) [facility] 02/13/2024 1:00 PM CDT Office Visit [address] Dooley [address] [place] [id number] Olga Ward NP CV Heart Failure New (Hosp. F/u) 02/13/2024 Telephone [facility] [place] [address] [place] [phone] Esperanza Joyce NP Follow Up (SGLT2 Coverage) 02/11/2024 Telephone [facility] [address] [place] [phone] Olga Ward NP Lab 02/06/2024 12:43 AM CDT - 02/08/2024 11:34 AM CDT Hospital Encounter [facility] [address] [place] [address] [facility] [place] [place], MD Jay Mayberry, Jordan Guadarrama MD Mild concentric left ventricular hypertrophy (LVH) (Primary Dx); Cardiopathy; Acute hypoxic respiratory failure (HC); Tobacco use disorder; Acute on chronic diastolic congestive heart failure (HC) Discharge Disposition: Home Self Care 02/06/2024 Travel 01/24/2024 3:00 PM CDT Ancillary Procedure [facility] & [address] [address] from Last 3 Months Immunizations Name Administration [...] Lymphoma Mother Other Other no colon or lcpc ecological cancers. no premature coronary artery disease. [...] Sign Reading Time Taken Comments Blood Pressure 118/68 03/21/2024 10:04 AM CDT Pulse 81 03/21/2024 10:19 AM CDT Temperature 36.7 ??C (98.1 ??F) 02/08/2024 7:51 AM CD T Respiratory Rate 18 02/08/2024 7:51 AM CDT Oxygen Saturation 89% 03/21/2024 10:19 AM CDT Inhaled Oxygen Concentration - - Weight 101.2 kg (223 lb) 03/21/2024 10:04 AM CDT Height 165.1 cm (5' 5) 03/21/2024 10:04 AM CDT Body Mass Index 37.11 03/21/2024 10:04 AM CDT Plan of Treatment Health Maintenance Due Date Last Done Comments Depression screening for age 12+ 1961 Hepatitis C screening for ag e 18-79 1967 Medicare Wellness for age 65+ 2014 Pneumococcal series for age 65+ (2 of 2 - PCV) 10/27/2015 10/27/2014 Mammogram for age 45-75 03/10/2021 03/10/20 20 (Completed outside of [facility]), 07/09/2008 Tetanus booster 05/05/2021 05/05/2011, 12/12/2002 COVID-19 vaccine series ( season) 2023 08/16/2023, 07/14/2022, 01/31/2022, Additional history exists Influenza for age 65+ 05/11/2024 07/02/2018 , 01/16/2018, 07/09/2008, Additional history exists BMI (ht and wt on same day) for age 18+ 03/21/2025 03/21/2024, 02/13/2024, 03/23/2023, Additional history exists Lipids for age 45-75 10/25/2025 10/25/2020, 09/27/2020, 08/30/2020, Additional history exists Colonoscopy through age 75 01/03/2028 01/02/2018, Tdap Completed 05/05/2011 Zoster (shingles) series for age 50+ Completed 05/23/2019, 02/17/2019 DEXA/DXA scan for age 65+ Completed 2018 (Completed outside of [facility]) Medical Devices Implanted Type Area Spice Miller Device Identifier Shelf Expiration Date Model / Serial / Lot Adhesion Barrier 5x6in Seprafilm Absorb - [id number] Implanted:Qty: 1 on 07/11/2018 [facility] 05/10/2019 4301-02# / / [id number] Adhesion Barrier 5x6in Seprafilm Absorb - [id number] Implanted:Qty: 2 on 07/11/2018 by Annamarie Massey MD at [facility] [employer] 09/09/2019 4301-02# / / [id number] Procedures Procedure Name Priority Date/Time Associated Diagnosis Comments SCAN-LABORATORY REPORT 03/25/2024 12:00 AM CDT SCAN CORRESP-LABORATORY RESULTS 02/18/2024 8:08 AM CDT [...] (HC) CHOLESTEROL,TOTAL Routine 10/25/2020 1:0 2 PM STEAM FITTER 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) Encounter for examination for normal comparison and control in clinical research program COLONOSCOPY 01/02/2018 11:48 AM CDT XR MAMMO BILAT SCREEN FFDM (IA) Routine 07/09/2008 8:31 AM CDT Other Screening Mammogram from Last 3 Months or Most Recently Relevant to Health Maintenance Results * SCAN-LABORATORY REPORT (03/25/2024 12:00 AM CDT) Scanner OTHER * SCAN CORRESP-LABORATORY RESULTS (02/18/2024 8:08 AM CDT) Narrative 02/18/2024 8:08 AM CDT Ordered by an unspecified provider. Other Clinical Staff OTHER * (ABNORMAL) WBC AM (02/08/2024 6:05 AM CDT) WHITE BLOOD COUNT 11.4(H) 4.5 - 11.0 thou/cu mm 02/08/2024 6:27 AM CDT [facility] NRBC 0.0 % 02/08/2024 6:27 AM CDT [facility] TRAL LABORATORY ABS NRBC 0.0 thou /cu mm 02/08/2024 6:27 AM CDT [facility] TRAL LAB[facility]ORY Blood BLOOD SPECIMEN / Unknown Venipuncture / Unknown 02/08/2024 6:05 AM CDT 02/08/2024 6:19 AM CDT Jordan Thompson MD [facility] [address] [place] [address], * (ABNORMAL) BASIC METABOLIC PANEL (02/08/2024 6:05 AM [facility]) Only the most recent of2 resultswithin the time period is included. SODIUM 138 136 - 145 mmol/L 02/08/2024 7:01 AM [facility] TRAL LABORATORY POTASSIUM 4.1 3.5 - 5.1 mmol/L 02/08/2024 7:01 AM [facility] TRAL LABORATORY CHLORIDE 88(L) 98 - 107 mmol/L 02/08/2024 7:01 AM [facility] CO2,TOTAL 39(H) 22 - 29 mmol/L 02/08/2024 7:01 AM [facility] TRAL LABORATORY ANION GAP 11 5 - 18 02/08/2024 7:01 AM [facility] TRAL LABORATORY GLUCOSE 93 70 - 99 mg/dL 02/08/2024 7:01 AM [facility] TRAL LABORATORY CALCIUM 9.6 8.8 - 10.2 mg/dL 02/08/2024 7:01 AM [facility] BUN 34(H) 8 - 23 mg/dL 02/08/2024 7:01 AM [facility] TRAL LABORATORY CREATININE 1.14(H) 0.50 - 0.90 mg/dL 02/08/2024 7:01 AM [facility] BUN/CREAT RATIO 30(H) 10 - 20 7:01 AM [facility] TRAL LABORATORY eGFR 51(L) >90 mL/min/1.7 3m2 02/08/2024 7:01 AM [facility] Comment:As of 2021, eG FR is calculated by the CKD-EPI creatinine equation without race adjustment. ??eGFR can be influenced by muscle mass, exercise, and diet. ??The reported eGFR is an estimation only and is only applicable if the renal function is stable. Blood BLOOD SPECIMEN / Unknown Venipuncture / Unknown 02/08/2024 6:05 AM CDT 02/08/2024 6:20 AM CDT Esperanza Joyce ELEMENTARY INSTRUCTIONAL COACH CHEMISTRY [facility] LABORATORY-CENTRAL LABORATORY [address] [place] [address], * SCAN-CARDIAC STRIP (02/08/2024 1:15 AM CDT) [...] 27.1% (896 ml excess). ? Patient Result ?[place] Patient ?? Total Blood Volume ? [id number] [...] by: Gray Benitez MD Cardiology Esperanza Joyce ELEMENTARY INSTRUCTIONAL COACH NM * HEMATOCRIT (02/07/2024 3:37 PM CDT) HEMATOCRIT 38.5 33.0 - 51.0 % 02/07/2024 4:00 PM CDT [facility] LAB[facility] Blood BLOOD SPECIMEN / Unknown Non-Lab Venipuncture / Unknown 02/07/2024 3:37 PM CDT 02/07/2024 3:37 PM CDT Jordan Thompson MD HEMATOLOGY [facility]-C[facility]AL LABORATORY [address] [place] [address], * EXTRA TUBE LAVENDER (02/07/2024 3:15 PM CDT) Blood BLOOD SPECIMEN / Unknown Non-Lab Venipuncture / Unknown 02/07/2024 3:15 PM CDT 02/07/2024 4:48 PM CDT Jordan Thompson MD LABORATORY [facility] LABORATORY-CENTRAL LABORATORY [address] [place] [address], * ECHO TTE COMPLETE WO CONTRAST (02/07/2024 2:55 PM CDT) Only the most recent of2 resultswithin the time period is included. AORTIC VALVE MEAN PG 5 mmHg EJECTION FRACTION 72 % PEAK TR VELOCITY 3.0 m/s LVEDD 4.9 cm Anatomical Region Laterality Modality Ultrasound 02/07/2024 12:3 9 PM CDT Narrative 02/07/2024 3:34 PM CDT ECHOCARDIOGRAM MONIK GALLEGO ? Accession#: ?? [id number] : ?1950 73 years Study Date: ?? 02/07/2024 12:39:00 PM Gender: F ?BP: ? 107/53 mmHg Height: 165.00 cm ?BSA: ?2.09 m? ? ? Weight: 103.00 kg ?Tech: ? GG/TRAVELER ? Referring MD: VALERIE RUANO SCOTT Site: ? [facility] Reading Location: [facility]- Patient Location: Inpatient. Procedure: 2D, Color Doppler [...] . This study was interpreted by an [facility] accredited facility. ??Final ?? Procedure Note Reyna Arnold, [facility] - 02/07/2024 ECHOCARDIOGRAM MONIK GALLEGO : 1950 73 years Study Date: 02/07/2024 12:39:00 PM Gender: F BP: 107/53 mmHg Height: 165.00 cm BSA: 2.09 m? ? ? Weight: 103.00 kg Tech: GG/TRAVELER Referring MD: VALERIE RUANO SCOTT Site: [facility] Reading Location: [facility] Patient Location: Inpatient. Procedure: 2D, Color [...] . This study was interpreted by an [facility] accredited facility. Final Valerie Ruano MD ECHO ORD * POTASSIUM (02/07/2024 7:58 AM CDT) Only the most recent of2 resultswithin the time period is included. Pathologist [facility] POTASSIUM 4.5 3.5 - 5.1 mmol/L 02/07/2024 9:10 AM CDT [facility] Blood BLOOD SPECIMEN / Unknown Venipuncture / Unknown 02/07/2024 7:58 AM CDT 02/07/2024 8:03 AM CDT Jordna Thompson MD [facility] [address] [place] [address], * (ABNORMAL) CBC no diff AM (02/07/2024 6:29 AM CDT) WHITE BLOOD COUNT 13.3(H) 4.5 - 11.0 thou/cu mm 02/07/2024 6:56 AM CDT [facility] LABORATORY-[facility] TRAL LABORATORY RED BLOOD COUNT 3.94(L) 4.00 - 5.20 mil/cu mm 02/07/2024 6:56 AM CDT [facility] TRAL LABORATORY HEMOGLOBIN 12.1 12.0 - 16.0 g/dL 02/07/2024 6:56 AM CDT [facility] TRAL LABORATORY HEMATOCRIT 38.9 33.0 - 51.0 % 02/07/2024 6:56 AM CDT [facility] TRAL LABORATORY MCV 99 80 - 100 fL 02/07/2024 6:56 AM CDT [facility] TRAL LABORATORY MCH 30.7 26.0 - 34.0 pg 02/07/2024 6:56 AM CDT [facility] TRAL LABORATORY MCHC 31.1(L) 32.0 - 36.0 g/dL 02/07/2024 6:56 AM CDT [facility] TRAL LABORATORY RDW 13.8 11.5 - 15.5 % 02/07/2024 6:56 AM CDT [facility] TRAL LABORATORY PLATELET COUNT 316 140 - 440 thou/cu mm 02/07/2024 6:56 AM CDT [facility] TRAL LABORATORY MPV 8.8 6.5 - 11.0 fL 02/07/2024 6:56 AM CDT [facility] TRAL LABORATORY NRBC 0.0 % 02/07/2024 6:56 AM CDT [facility] TRAL LABORATORY ABS NRBC 0.0 thou /cu mm 02/07/2024 6:56 AM CDT [facility] TRAL LABORATORY Blood BLOOD SPECIMEN / Unknown Venipuncture / Unknown 02/07/2024 6:29 AM CDT 02/07/2024 6:42 AM CDT Jordan Thompson MD HEMATOLOGY [facility] [address] [place] [address], * MAGNESIUM (02/07/2024 6:29 AM CDT) Only the most recent of2 resultswithin the time period is included. MAGNESIUM 1.6 1.6 - 2.4 mg/dL 02/07/2024 7:11 AM CDT [facility] LABORATORY-[facility] AL LABORATORY Blood BLOOD SPECIMEN / Unknown Venipuncture / Unknown 02/07/2024 6:29 AM CDT 02/07/2024 6:42 AM CDT Jordan Thompson MD CHEMISTRY [facility] LABORATORY-CENTRAL LABORATORY [address] [place] [address], [place] * SCAN-CARDIAC STRIP (02/07/2024 12:49 AM CDT) [...] - 16.0 g/dL 02/06/2024 7:18 AM CDT [facility] LABORATORY MCV 100 80 - 100 fL 02/06/2024 7:18 AM CDT [facility] LAB[facility] Blood BLOOD SPECIMEN / Unknown Non-Lab Venipuncture / Unknown 02/06/2024 7:04 AM CDT 02/06/2024 7:12 AM CDT Valerie Ruano MD [facility] [address] [place] [address], * SODIUM (02/06/2024 7:04 AM CDT) SODIUM 138 136 - 145 mmol/L 02/06/2024 7:37 AM CDT [facility] AL LABORATORY Blood BLOOD SPECIMEN / Unknown Venipuncture / Unknown 02/06/2024 7:04 AM CDT 02/06/2024 7:12 AM CDT Valerie Ruano MD CHEMISTRY Performing Organization Address [facility] Co de Phone Number [facility] [address] [place] [address], * (ABNORMAL) CREATININE (02/06/2024 7:04 AM CDT) eGFR 57(L) >90 mL/min/1.7 3m2 02/06/2024 7:37 AM CDT [facility] TRAL LABORATORY Comment:As of 2021, eG FR is calculated by the CKD-EPI creatinine equation without race adjustment. ??eGFR can be influenced by muscle mass, exercise, and diet. ??The reported eGFR is an estimation only and is only applicable if the renal function is stable. CREATININE 1.04(H) 0.50 - 0.90 mg/dL 02/06/2024 7:37 AM CDT [facility] Blood BLOOD SPECIMEN / Unknown Venipuncture / Unknown 02/06/2024 7:04 AM CDT 02/06/2024 7:12 AM CDT Valerie Ruano MD CHEMISTRY Performing Organization Address [facility] Co de Phone Number [facility] [address] [place] [address], [place] * (ABNORMAL) BLOOD GAS,VENOUS (02/06/2024 7:03 AM CDT) PH, VENOUS 7.37 7.32 - 7.43 02/06/2024 7:17 AM CDT [facility] TRAL LABORATORY PCO2, VENOUS 63(H) 41 - 51 mmHg 02/06/2024 7:17 AM CDT [facility] TRAL LABORATORY PO2, VENOUS 56(H) 35 - 40 mmHg 02/06/2024 7:17 AM CDT [facility] TRAL LABORATORY HCO3,VENOUS 36(H) 22 - 29 mmol/L 02/06/2024 7:17 AM CDT [facility] TRAL LABORATORY BASE EXCESS, VENOUS, POCT 8.7(H) -2.0 - 3.0 02/06/2024 7:17 AM CDT [facility] LAB[facility] O2 SATURATION, VENOUS 87(H) 70 - 75 % 02/06/2024 7:17 AM CDT [facility] TRAL LABORATORY PATIENT TEMPERATURE 37.0 Degrees C 02/06/2024 7:17 AM CDT [facility] Blood VENOUS BLOOD SPECIMEN / Unknown Venipuncture / Unknown 02/06/2024 7:03 AM CDT 02/06/2024 7:12 AM CDT Valerie Ruano MD CHEMISTRY Performing Organization Address City/[facility]/ZIP Co de Phone Number [facility] [address] [place] [address], * SCAN-CARDIAC STRIP (02/06/2024 3:55 AM CDT) Scanner OTHER * CHOLESTEROL,TOTAL (10/25/2020 1:02 PM STEAM FITTER) [facility] CHOLESTEROL,TO PURVI 142 100 - 199 mg/dL 10/25/2020 5:38 PM STEAM FITTER [facility] LABORATORY PROVIDER ORDERED STATUS RANDOM 10/25/2020 5:38 PM STEAM FITTER [facility] Blood BLOOD SPECIMEN / Unknown 10/25/2020 1:02 PM STEAM FITTER 10/25/2020 5:21 PM STEAM FITTER Tamanna Rolon NP CHEMISTRY [facility] [address] [place] [address], * COLONOSCOPY (01/02/2018 11:48 AM CDT) 01/02/2018 11:4 8 AM CDT Narrative Transcriptions Alfredito Lyman MD - 01/02/2018 1:14 PM CDT [place] [facility] Patient Name: Monik Gallego Procedure Date: 01/02/2018 Gender: Female Date of : 1950 Admit Type: Inpatient Procedure: Colonoscopy Proceduralist: Alfredito Lyman MD - [facility] [place] Indications/Pre-Op Diagnosis: Hematochezia Medications: General Procedure Description: [...] Documents on File Type Date Recorded Patient Pot Maker Expl anation Healthcare Directive 01/02/2018 5:54 AM [...] 9:37 PM 01/03/2018 3:50 PM Care Teams Mass Communications Professor Relationship Specialty Start Date End Date Silver Whalen MD [address] [place] [address] PCP - General Family Practice 12/31/17 Opal Alcantara MD [address] [place] [address] [address] [place] [address] Cardiovascular Disease 05/28/20 Nurses, Advanced Heart Failure [address], [place] [address] Advanced Heart Failure/Transplant Card 05/28/20
--- OUTSIDE RECORDS SUMMARY | 2024-03-28 01:40 | XMS_ITS | Clinical Summary ---
Author Organization [facility] Facility Address [address] [address] Care Team Providers Care Blanker Press Operator Name Role Phone Unavailable Primary Care Provider [...] of 1 - PCV) 2014 Influenza Vaccine (#1) 2024 Hepatitis B Vaccine Aged Out No longe r eligible based on patient's age to complete this topic
== END 2024-03-25 10:21 | disposition home or self-care (01) ==
LOC: NFLDREF 03-28 01:37
PROVIDERS: PCP Family Medicine; Referring Provider Family Medicine; Visit Provider Internal Medicine
DX: I42.9 Cardiomyopathy, unspecified (principal); I50.33 Acute on chronic diastolic (congestive) heart failure; I11.0 Hypertensive heart disease with heart failure; I27.20 Pulmonary hypertension, unspecified; R60.9 Edema, unspecified; I11.9 Hypertensive heart disease without heart failure
CPT/HCPCS: 80048; 83880

== ENCOUNTER 2024-04-25 10:34 | Outpatient (CLI) | payer MEDICARE, BC, SELFPAY ==
--- OUTSIDE RECORDS SUMMARY | 2024-04-25 10:37 | XMS_ITS | Clinical Summary ---
Author Organization [facility] Address [place], [place] [address] Care Team Providers Care Fuel Injection Servicer Name Role Phone Silver Whalen MD Primary Care Provider [phone] Opal Alcantara MD Unavailable [phone] Nurses, Advanced Heart Failure Unavailable + Allergies [...] used), whichever comes first. Active vit-mineral eye [id number]- lut-zeax (PreserVision AREDS-2) capsule Take 1 Capsule [...] Encounters Date Type Department Care Team Description 04/04/2024 Telephone [facility] [address] [place] [phone] Opal Alcantara MD Lab 04/01/2024 Telephone [facility] [address] [place] [address] [address] [place] [phone] Oni Shaw MD Results (Oximetry results, 03/27/24) 04/01/2024 Orders Only [facility] [address] [place] [address] Oni Shaw MD 1 scan: (1-Ord) Overnight Oximetry Test on Room Air, with CPAP, 03/27/24 03/25/2024 Orders Only [facility] Scanner 1 scan: (1-Ord) [place], LAB RESULTS, 03/25/2024 03/25/2024 Telephone [facility] [address] [place] [phone] Radha House MD Results (BMP, proBNP) 03/21/2024 9:50 AM CDT Office Visit [facility] [address] [place] [address] [address] Oni Shaw MD Follow Up (COPD/MONIKA) 03/21/2024 Travel 03/06/2024 11:00 AM CDT Office Visit [facility] [address] [place] [address] Radha House MD 02/20/2024 Telephone [facility] [address] [place] [address] Esperanza Joyce NP Follow Up (Update on Furosemide (Lasix) tolerance) 02/18/2024 Orders Only [facility] Staff, Other Clinical 1 scan: (1-Ord) [facility] 02/13/2024 1:00 PM CDT Office Visit [address] [place] [address] Olga Ward NP CV Heart Failure New (Hosp. F/u) 02/13/2024 Telephone [facility] [address] [place] [phone] Esperanza Joyce NP Follow Up (SGLT2 Coverage) 02/11/2024 Telephone [facility] [address] [place] [phone] Olga Ward NP Lab 02/06/2024 12:43 AM CDT - 02/08/2024 11:34 AM CDT Hospital Encounter [facility] [address] [place] [address] [facility], [facility] Hospitalists Of Valerie Ruano MD Ramsey, Lucas Blumer, MD Mild concentric left ventricular hypertrophy (LVH) (Primary Dx); Cardiopathy; Acute hypoxic respiratory failure (HC); Tobacco use disorder; Acute on chronic diastolic congestive heart failure (HC) Discharge Disposition: Home Self Care 02/06/2024 Travel 01/24/2024 3:00 PM CDT Ancillary Procedure [facility] [place] [facility] [address] [place] [address] from Last 3 Months Immunizations Name Administration [...] Lymphoma Mother Other Other no colon or oil well logging engineer ecological cancers. no premature coronary artery disease. [...] 03/21/2024 10:04 AM CDT Plan of Treatment Upcoming Encounters Date Type Department Care Team (Late st Contact Info) Description 05/23/2024 10:30 AM CDT Office Visit [facility] [address] [place] [phone] Pina Weller, SAMPLE PATTERNMAKER [address] [place] [address] Health Maintenance Due Date Last Done Comments Depression screening for age 12+ 1961 Hepatitis C screening for ag e 18-79 1967 Medicare Wellness for age 65+ 2014 Pneumococcal series for age 65+ (2 of 2 - PCV) 10/27/2015 10/27/2014 Mammogram for age 45-75 03/10/2021 03/10/20 20 (Completed outside of [facility]), 07/09/2008 Tetanus booster 05/05/2021 05/05/2011, 12/12/2002 COVID-19 [...] age 65+ Completed 2018 (Completed outside of [facility]) Medical Devices Implanted Type Area Compass Operator Device Identifier Shelf Expiration Date Model / Serial / Lot Adhesion Barrier 5x6in Seprafilm Absorb - Implanted:Qty: 1 on 07/11/2018 by Annamarie Massey MD at [facility] [employer] 05/10/2019 4301-02# / / [id number] Adhesion Barrier 5x6in Seprafilm Absorb - [id number] Implanted:Qty: 2 on 07/11/2018 by Annamarie Massey MD at [facility] [employer] 09/09/2019 4301-02# / / [id number] Procedures Procedure Name Priority Date/Time Associated Diagnosis Comments AMB CONSULT TO HOME OXYGEN AND DME Routine 03/27/2024 MONIKA (obstructive sleep apnea) SCAN-LABORATORY REPORT 03/25/2024 12:00 AM CDT SCAN [...] (HC) CHOLESTEROL,TOTAL Routine 10/25/2020 1:0 2 PM SAVE ALL OPERATOR 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) Encounter for examination for normal comparison and control in clinical research program COLONOSCOPY 01/02/2018 11:48 AM CDT XR MAMMO BILAT SCREEN FFDM (IA) Routine 07/09/2008 8:31 AM CDT Other Screening Mammogram from Last 3 Months or Most Recently Relevant to Health Maintenance Results * AMB CONSULT TO HOME OXYGEN AND DME (03/27/2024) Oni Shaw MD AMB REFERRAL/CONS ULT ORD * SCAN-LABORATORY REPORT (03/25/2024 12:00 AM CDT) Scanner OTHER * SCAN CORRESP-LABORATORY RESULTS (02/18/2024 8:08 AM CDT) Narrative 02/18/2024 8:08 AM CDT Ordered by an unspecified provider. Other Clinical Staff OTHER * (ABNORMAL) WBC AM (02/08/2024 6:05 AM CDT) WHITE BLOOD COUNT 11.4(H) 4.5 - 11.0 thou/cu mm 02/08/2024 6:27 AM CDT [facility] NRBC 0.0 % 02/08/2024 6:27 AM CDT [facility] ABS NRBC 0.0 thou /cu mm 02/08/2024 6:27 AM CDT [facility] Blood BLOOD SPECIMEN / Unknown Venipuncture / Unknown 02/08/2024 6:05 AM CDT 02/08/2024 6:19 AM CDT Jordan Thompson MD HEMATOLOGY [facility] [address] [place] [address], * (ABNORMAL) BASIC METABOLIC PANEL (02/08/2024 6:05 AM CDT) Only the most recent of2 resultswithin the time period is included. SODIUM 138 136 - 145 mmol/L 02/08/2024 7:01 AM CDT [facility] POTASSIUM 4.1 3.5 - 5.1 mmol/L 02/08/2024 7:01 AM CDT [facility] CHLORIDE 88(L) 98 - 107 mmol/L 02/08/2024 7:01 AM T [facility] CO2,TOTAL 39(H) 22 - 29 mmol/L 02/08/2024 7:01 AM T [facility] ANION GAP 11 5 - 18 02/08/2024 7:01 AM T [facility] GLUCOSE 93 70 - 99 mg/dL 02/08/2024 7:01 AM T [facility] CALCIUM 9.6 8.8 - 10.2 mg/dL 02/08/2024 7:01 AM T [facility] BUN 34(H) 8 - 23 mg/dL 02/08/2024 7:01 AM T [facility] CREATININE 1.14(H) 0.50 - 0.90 mg/dL 02/08/2024 7:01 AM [facility] BUN/CREAT RATIO 30(H) 10 - 20 7:01 AM T [facility] eGFR 51(L) >90 mL/min/1.7 3m2 02/08/2024 7:01 AM [facility] Comment:As of 2021, eG [...] 6:20 AM CDT Esperanza Joyce NP [facility] [address] [place] [address], * SCAN-CARDIAC STRIP (02/08/2024 1:15 AM CDT) [...] 27.1% (896 ml excess). ? Patient Result ?Crump Patient ?? Total Blood Volume ? [id number] [...] by: Gray Benitez MD Cardiology Esperanza Joyce RECORD CUTTER [place] * HEMATOCRIT (02/07/2024 3:37 PM CDT) Pathologist [facility] HEMATOCRIT 38.5 33.0 - 51.0 % 02/07/2024 4:00 PM CDT [facility] Blood BLOOD SPECIMEN / Unknown Non-Lab Venipuncture / Unknown 02/07/2024 3:37 PM CDT 02/07/2024 3:37 PM CDT Jordan Thompson MD HEMATOLOGY Performing Organization Address City/[facility] Co de Phone Number [facility] [address] [address], [place] * EXTRA TUBE LAVENDER (02/07/2024 3:15 PM CDT) Blood BLOOD SPECIMEN / Unknown Non-Lab Venipuncture / Unknown 02/07/2024 3:15 PM CDT 02/07/2024 4:48 PM CDT Jordan Thompson MD LABORATORY Performing Organization Address City/[facility]/ZIP Co de Phone Number [facility] [address] [address], [place] * ECHO TTE COMPLETE WO CONTRAST (02/07/2024 2:55 PM CDT) Only the most recent of2 resultswithin the time period is included. AORTIC VALVE MEAN PG 5 mmHg EJECTION FRACTION 72 % PEAK TR VELOCITY 3.0 m/s LVEDD 4.9 cm Anatomical Region Laterality Modality Ultrasound 02/07/2024 12:3 9 PM CDT Narrative 02/07/2024 3:34 PM CDT ECHOCARDIOGRAM MONIK GALLEGO ? Accession#: ?? [id number] : ?1950 73 years Study Date: ?? 02/07/2024 12:39:00 PM Gender: F ?BP: ? 107/53 mmHg Height: 165.00 cm ?BSA: ?2.09 m? ? ? Weight: 103.00 kg ?Tech: ? GG/TRAVELER ? Referring MD: VALERIE RUANO SCOTT Site: ? [facility] Reading Location: [facility] Patient [...] . This study was interpreted by an [facility] accredited facility. ??Final ?? Procedure Note Reyna Arnold, [facility] - 02/07/2024 ECHOCARDIOGRAM MONIK GALLEGO : 1950 73 years Study Date: 02/07/2024 12:39:00 PM Gender: F BP: 107/53 mmHg Height: 165.00 cm BSA: 2.09 m? ? ? Weight: 103.00 kg Tech: GG/TRAVELER Referring MD: VALERIE RUANO SCOTT Site: [facility] Reading Location: [facility] Patient [...] - 5.1 mmol/L 02/07/2024 9:10 AM CDT [facility] Blood BLOOD SPECIMEN / Unknown Venipuncture / Unknown 02/07/2024 7:58 AM CDT 02/07/2024 8:03 AM CDT Jordan Thompson MD CHEMISTRY [facility] [address] [place] [address], * (ABNORMAL) CBC no diff AM (02/07/2024 6:29 AM CDT) WHITE BLOOD COUNT 13.3(H) 4.5 - 11.0 thou/cu mm 02/07/2024 6:56 AM CDT [facility] RED BLOOD COUNT 3.94(L) 4.00 - 5.20 mil/cu mm 02/07/2024 6:56 AM CDT [facility] HEMOGLOBIN 12.1 12.0 - 16.0 g/dL 02/07/2024 6:56 AM CDT [facility] HEMATOCRIT 38.9 33.0 - 51.0 % 02/07/2024 6:56 AM CDT [facility] MCV 99 80 - 100 fL 02/07/2024 6:56 AM CDT [facility] MCH 30.7 26.0 - 34.0 pg 02/07/2024 6:56 AM CDT [facility] MCHC 31.1(L) 32.0 - 36.0 g/dL 02/07/2024 6:56 AM CDT [facility] RDW 13.8 11.5 - 15.5 % 02/07/2024 6:56 AM CDT [facility] PLATELET COUNT 316 140 - 440 thou/cu mm 02/07/2024 6:56 AM CDT [facility] MPV 8.8 6.5 - 11.0 fL 02/07/2024 6:56 AM CDT [facility] NRBC 0.0 % 02/07/2024 6:56 AM CDT [facility] ABS NRBC 0.0 thou /cu mm 02/07/2024 6:56 AM CDT [facility] Blood BLOOD SPECIMEN / Unknown Venipuncture / Unknown 02/07/2024 6:29 AM CDT 02/07/2024 6:42 AM CDT Jordan Thompson MD HEMATOLOGY Performing Organization Address City/[facility]/ZIP Co de Phone Number [facility] [address] [place] [address], * MAGNESIUM (02/07/2024 6:29 AM CDT) Only the most recent of2 resultswithin the time period is included. MAGNESIUM 1.6 1.6 - 2.4 mg/dL 02/07/2024 7:11 AM CDT [facility] Blood BLOOD SPECIMEN / Unknown Venipuncture / Unknown 02/07/2024 6:29 AM CDT 02/07/2024 6:42 AM CDT Jordan Thompson MD CHEMISTRY [facility] [address] [place] [address], * SCAN-CARDIAC STRIP (02/07/2024 12:49 AM CDT) [...] * HEMOGLOBIN (02/06/2024 7:04 AM CDT) Pathologist [facility] HEMOGLOBIN 12.2 12.0 - 16.0 g/dL 02/06/2024 7:18 AM CDT [facility] MCV 100 80 - 100 fL 02/06/2024 7:18 AM CDT [facility] Blood BLOOD SPECIMEN / Unknown Non-Lab Venipuncture / Unknown 02/06/2024 7:04 AM CDT 02/06/2024 7:12 AM CDT Valerie Ruano MD HEMATOLOGY Performing Organization Address City/[facility] Co de Phone Number [facility] [address] [place] [address], * SODIUM (02/06/2024 7:04 AM CDT) Pathologist [facility] SODIUM 138 136 - 145 mmol/L 02/06/2024 7:37 AM CDT [facility] Blood BLOOD SPECIMEN / Unknown Venipuncture / Unknown 02/06/2024 7:04 AM CDT 02/06/2024 7:12 AM CDT Valerie Ruano MD CHEMISTRY Performing Organization Address City/[facility]/ZIP Co de Phone Number [facility] [address] [place] [address], * (ABNORMAL) CREATININE (02/06/2024 7:04 AM CDT) Pathologist [facility] eGFR 57(L) >90 mL/min/1.7 3m2 02/06/2024 7:37 AM CDT [facility] Comment:As of 2021, eG FR is calculated by the CKD-EPI creatinine equation without race adjustment. ??eGFR can be influenced by muscle mass, exercise, and diet. ??The reported eGFR is an estimation only and is only applicable if the renal function is stable. CREATININE 1.04(H) 0.50 - 0.90 mg/dL 02/06/2024 7:37 AM CDT [facility] Blood BLOOD SPECIMEN / Unknown Venipuncture / Unknown 02/06/2024 7:04 AM CDT 02/06/2024 7:12 AM CDT Valerie Ruaon MD CHEMISTRY [facility] [address] [place] [address], * (ABNORMAL) BLOOD GAS,VENOUS (02/06/2024 7:03 AM CDT) PH, VENOUS 7.37 7.32 - 7.43 02/06/2024 7:17 AM CDT [facility] PCO2, VENOUS 63(H) 41 - 51 mmHg 02/06/2024 7:17 AM T [facility] PO2, VENOUS 56(H) 35 - 40 mmHg 02/06/2024 7:17 AM T [facility] HCO3,VENOUS 36(H) 22 - 29 mmol/L 02/06/2024 7:17 AM T [facility] BASE EXCESS, VENOUS, POCT 8.7(H) -2.0 - 3.0 02/06/2024 7:17 AM T [facility] O2 SATURATION, VENOUS 87(H) 70 - 75 % 02/06/2024 7:17 AM T [facility] PATIENT TEMPERATURE 37.0 Degrees C 02/06/2024 7:17 AM T [facility] Blood VENOUS BLOOD SPECIMEN / Unknown Venipuncture / Unknown 02/06/2024 7:03 AM CDT 02/06/2024 7:12 AM CDT Valerie Ruano MD CHEMISTRY [facility] [address] [place] [address], * SCAN-CARDIAC STRIP (02/06/2024 3:55 AM CDT) Scanner OTHER * CHOLESTEROL,TOTAL (10/25/2020 1:02 PM SAVE ALL OPERATOR) CHOLESTEROL,TO PURVI 142 100 - 199 mg/dL 10/25/2020 5:38 PM SAVE ALL OPERATOR [facility] [employer] [facility] PROVIDER ORDERED STATUS RANDOM 10/25/2020 5:38 PM SAVE ALL OPERATOR [facility] Blood BLOOD SPECIMEN / Unknown 10/25/2020 1:02 PM SAVE ALL OPERATOR 10/25/2020 5:21 PM SAVE ALL OPERATOR Tamanna Rolon NP CHEMISTRY [facility] [address] [place] [address], * COLONOSCOPY (01/02/2018 11:48 AM CDT) 01/02/2018 11:4 8 AM CDT Narrative Transcriptions Alfredito Lyman MD - 01/02/2018 1:14 PM CDT [facility] Patient Name: Monik Gallego Procedure Date: 01/02/2018 Gender: Female Date of : 1950 Admit Type: Inpatient Procedure: Colonoscopy Proceduralist[facility] [place] Indications/Pre-Op Diagnosis: Hematochezia Medications: General Procedure Description: [...] Documents on File Type Date Recorded Patient Shirring Machine Operator Automatic Expl anation Healthcare Directive 01/02/2018 5:54 AM [...] 9:37 PM 01/03/2018 3:50 PM Care Teams Fuel Injection Servicer Relationship Specialty Start Date End Date Silver Whalen MD [address] [place] [address] PCP - General Family Practice 12/31/17 Opal Alcantara MD [address] [place] [address] Cardiovascular Disease 05/28/20 Nurses, Advanced Heart Failure [address], [place] [address] Advanced Heart Failure/Transplant Card 05/28/20
--- OUTSIDE RECORDS SUMMARY | 2024-04-25 10:37 | XMS_ITS | Clinical Summary ---
Author Organization [facility] Facility Address [address] [address] Care Team Providers Care Energy Assistant Name Role Phone Unavailable Primary Care Provider [...]
--- NOTE | 2024-04-25 11:00 | CRLHL7_ITS ---
For Patients: As a result of the Century Cures Act, medical imaging exams and procedure reports are released immediately into your electronic medical record. You may view this report before your referring provider. If you have questions, please contact your health care provider. Indication: Follow up nodules Technique: Noncontrast CT chest Please note that all CT scans at this facility use dose modulation, iterative reconstruction, and/or weight-based dosing when appropriate to reduce radiation dose to as low as reasonably achievable. Comparison: 03/03/2024, 01/24/2024, 09/04/2023 Findings: Stable subtle chronic subpleural nodules in the anterolateral right upper lobe measuring 3 millimeters or less. Mild patchy areas of linear subsegmental atelectasis/scarring bilaterally. No suspicious pulmonary nodule. No pleural effusion or pulmonary edema. No consolidative density or pneumothorax. No fracture. Degenerative disc disease. Visualized thyroid is normal. Stable subcentimeter intrathoracic lymph nodes. Stable left renal cysts. Atherosclerotic changes. Impression: Stable chronic tiny subpleural nodules in the right upper lobe. No suspicious pulmonary nodule. Please note that all CT scans at this facility use dose modulation, iterative reconstruction, and/or weight-based dosing when appropriate to reduce radiation dose to as low as reasonably achievable. Dictated by Gray Wright MD @ 04/25/2024 3:10:37 PM (Electronically Signed)
== END 2024-04-25 10:35 | disposition home or self-care (01) ==
LOC: CT 10:34
PROVIDERS: PCP Family Medicine; Visit Provider Family Medicine
DX: R91.8 Other nonspecific abnormal finding of lung field (principal)
CPT/HCPCS: 71260; Q9967

== ENCOUNTER 2024-04-28 08:50 | Outpatient (CLI) | payer MEDICARE, BC, SELFPAY | END 2024-04-28 08:51 | disposition home or self-care (01) | LOC: NFLDREF 15:03 | PROVIDERS: PCP Family Medicine; Referring Provider Family Medicine; Visit Provider Family Medicine | DX: E78.5 Hyperlipidemia, unspecified (principal); I11.0 Hypertensive heart disease with heart failure; I50.33 Acute on chronic diastolic (congestive) heart failure | CPT/HCPCS: 80053; 80061 ==

== ENCOUNTER 2024-05-15 12:49 | Outpatient (CLI) | payer MEDICARE, BC, SELFPAY ==
--- OUTSIDE RECORDS SUMMARY | 2024-05-15 12:54 | XMS_ITS | Continuity of Care Document ---
Author Organization [facility] Address [address] [place] [address] Phone Care Team Providers Care Infection Control Practitioner Name Role Phone Matthias Simpson MD Unavailable [...] Consultants, [address], [place], [address], tel:[phone] [facility], Abnormal Lab Study (chief complaint) Positive Antibody 1 Calvin Rizzo. [facility] [address], [place], [address], [place]. tel:[phone] Referring Provider: Matthias Sorensen, [facility], PDeidra [address], [place], [address]. tel:[phone] Family History Family Member Type Diagnosis Age At Onset Problem No family history of Systemi c lupus erythematosus Immunizations Vaccine Date Status Comments COVID-19 Pfizer administered Note: 2020 ; Source: Other Provider Payers Payer name Insurance type Covered green party ID Authoriza timisael(s) [employer] Medicare Advantage/Pl[employer] in[employer] BL [id number] Social History Type Description Quantity Date Captured [...]
--- OUTSIDE RECORDS SUMMARY | 2024-05-15 12:55 | XMS_ITS | Clinical Summary ---
Author Organization [facility] Facility Address [address] [address] Care Team Providers Care Cutter Operator Brick Name Role Phone Unavailable Primary Care Provider [...]
--- OUTSIDE RECORDS SUMMARY | 2024-05-15 12:55 | XMS_ITS | Clinical Summary ---
Author Organization [facility] Address [place], [place] [address] Care Team Providers Care Rn Compliance Name Role Phone Silver Whalen MD Primary Care Provider Opal Alcantara MD Unavailable [phone] Nurses, Advanced Heart Failure Unavailable + Allergies [...] used), whichever comes first. Active vit-mineral eye [id number]- lut-zeax (PreserVision AREDS-2) capsule Take 1 Capsule [...] Type Department Care Team Description 04/04/2024 Telephone [facility] [address] [place] [phone] Opal Alcantara MD Lab 04/01/2024 Telephone [facility] [address] [place] [address] [address] [place] [phone] Oni Shaw MD Results (Oximetry results, 03/27/24) 04/01/2024 Orders Only [facility] [address] [place] [address] Oni Shaw MD 1 scan: (1-Ord) Overnight Oximetry Test on Room Air, with CPAP, 03/27/24 03/25/2024 Orders Only [facility] Scanner 1 scan: (1-Ord) [facility], LAB RESULTS, 03/25/2024 03/25/2024 Telephone [facility] [address] [place] [phone] Radha House MD Results (BMP, proBNP) 03/21/2024 9:50 AM CDT Office Visit [facility] [address] [place] [address] Oni Shaw MD Follow Up (COPD/MONIKA) 03/21/2024 Travel 03/06/2024 11:00 AM CDT Office Visit [facility] [address] [place] [address] Radha House MD 02/20/2024 Telephone [facility] [address] [facility] [address] [place] [phone] Esperanza Joyce NP Follow Up (Update on Furosemide (Lasix) tolerance) 02/18/2024 Orders Only [facility] SERVICES Staff, Other Clinical 1 scan: (1-Ord) [facility] 02/13/2024 1:00 PM CDT Office Visit [facility] [address] [place] [address] Olga Ward NP CV Heart Failure New (Hosp. F/u) 02/13/2024 Telephone [facility] [address] [facility] [address] [place] [phone] Esperanza Joyce NP Follow Up (SGLT2 Coverage) from Last 3 Months Immunizations Name Administration [...] Lymphoma Mother Other Other no colon or ballpoint pen cartridge tester ecological cancers. no premature coronary artery disease. [...] Description 05/23/2024 10:30 AM CDT Office Visit [facility] [address] [facility] [address] [place] [phone] Pina Weller, ELISEO [address] [place] [address] Health Maintenance Due Date Last Done Comments Depression screening for age 12+ 1961 Hepatitis C screening for ag e 18-79 1967 Medicare Wellness for age 65+ 2014 Pneumococcal series for age 65+ (2 of 2 - PCV) 10/27/2015 10/27/2014 Mammogram for age 45-75 03/10/2021 03/10/20 20 (Completed outside of [facility]), 07/09/2008 Tetanus booster 05/05/2021 05/05/2011, 12/12/2002 COVID-19 vaccine series ( season) 2024 08/16/2023, 07/14/2022, 01/31/2022, Additional history exists Influenza [...] age 65+ Completed 2018 (Completed outside of [facility]) Medical Devices Implanted Type Area Workforce Specialist Device Identifier Shelf Expiration Date Model / Serial / Lot Adhesion Barrier 5x6in Seprafilm Absorb - [id number] Implanted:Qty: 1 on 07/11/2018 by Annamarie Massey MD at [facility] [employer] 05/10/2019 4301-02# / / [id number] Adhesion Barrier 5x6in Seprafilm Absorb - [id number] Implanted:Qty: 2 on 07/11/2018 by [facility] 09/09/2019 4301-02# / / [id number] Procedures Procedure Name Priority Date/Time Associated Diagnosis Comments AMB CONSULT TO HOME OXYGEN AND DME Routine 03/27/2024 MONIKA (obstructive sleep apnea) SCAN-LABORATORY REPORT 03/25/2024 12:00 AM CDT SCAN CORRESP-LABORATORY RESULTS 02/18/2024 8:08 AM CDT CHOLESTEROL,TOTAL Routine 10/25/2020 1:0 2 PM FURNACE PROCESS SUPERVISOR 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) [...] unspecified provider. Other Clinical Staff OTHER * CHOLESTEROL,TOTAL (10/25/2020 1:02 PM FURNACE PROCESS SUPERVISOR) CHOLESTEROL,TO PURVI 142 100 - 199 mg/dL 10/25/2020 5:38 PM FURNACE PROCESS SUPERVISOR [facility] PROVIDER ORDERED STATUS RANDOM 10/25/2020 5:38 PM FURNACE PROCESS SUPERVISOR [facility] Blood BLOOD SPECIMEN / Unknown 10/25/2020 1:02 PM FURNACE PROCESS SUPERVISOR 10/25/2020 5:21 PM FURNACE PROCESS SUPERVISOR Tamanna Rolon NP CHEMISTRY [facility] [address] [place] [address], * COLONOSCOPY (01/02/2018 11:48 AM CDT) 01/02/2018 11:4 8 AM CDT Narrative Transcriptions Alfredito Lyman MD - 01/02/2018 1:14 PM CDT [facility] Patient Name: Monik Gallego Procedure Date: 01/02/2018 Gender: Female Date of : 1950 Admit Type: Inpatient Procedure: Colonoscopy Proceduralist: [facility] Indications/Pre-Op Diagnosis: Hematochezia Medications: General Procedure Description: [...] Documents on File Type Date Recorded Patient Agility Instructor Expl anation Healthcare Directive 01/02/2018 5:54 AM [...] 9:37 PM 01/03/2018 3:50 PM Care Teams Rn Compliance Relationship Specialty Start Date End Date Silver Whalen MD [address] [place] [phone] PCP - General Family Practice 12/31/17 Opal Alcantara MD [address] [place] [address] Cardiovascular Disease 05/28/20 Nurses, Advanced Heart Failure [address] [place] [address] Advanced Heart Failure/Transplant Card 05/28/20
--- NOTE | 2024-05-15 13:00 | CRLHL7_ITS ---
For Patients: As a result of the Century Cures Act, medical imaging exams and procedure reports are released immediately into your electronic medical record. You may view this report before your referring provider. If you have questions, please contact your health care provider. BILATERAL SCREENING MAMMOGRAM WITH COMPUTER-AIDED DETECTION AND TOMOSYNTHESIS TECHNIQUE: CC and MLO views were obtained. These mammographic images have been obtained using full-field digital technique. These mammographic images were interpreted with the benefit of computer-aided detection. Breast Tomosynthesis was used in this interpretation. COMPARISON FILM: 04/17/23, 04/12/22, 04/11/21. FINDINGS: There are scattered areas of fibroglandular density. IMPRESSION: There is no radiographic evidence for malignancy. ASSESSMENT: BI-RADS Category 2: Benign RECOMMENDATION: Routine screening mammogram in 1 year. A lay language report of this examination will be provided to the patient. Gray Wright M.D. Diagnostic Radiologist [email or web address] SP/Dictated by: Gray Wright MD @ 05/16/2024 8:22:00 AM (Electronically Signed)
== END 2024-05-15 12:50 | disposition home or self-care (01) ==
LOC: MAMMO 12:51
PROVIDERS: PCP Family Medicine; Visit Provider Family Medicine
DX: Z12.31 Encounter for screening mammogram for malignant neoplasm of breast (principal)
CPT/HCPCS: 77063; 77067

== ENCOUNTER 2024-05-22 15:00 | Outpatient (CLI) | payer MEDICARE, BC, SELFPAY ==
--- NOTE | 2024-05-22 15:00 | CRLHL7_ITS ---
For Patients: As a result of the Century Cures Act, medical imaging exams and procedure reports are released immediately into your electronic medical record. You may view this report before your referring provider. If you have questions, please contact your health care provider. DXA BONE MINERAL DENSITY STUDY Reason for exam: Screening. Current height (in): 65. Weight (lb): 225. Menopause age: 47. Ethnicity: White. 1. Have you had a previous hip or vertebral fracture? No. 2. Have you had any fractures during your adult life which did not result from significant trauma (e.g., auto accident)? No. 3. Did either of your parents have a hip fracture? No. 4. Do you smoke? Yes. 5. Have you ever taken Glucocorticoids? No. 6. Do you have rheumatoid arthritis? No. 7. Do you have secondary osteoporosis? No. 8. Do you drink 3 or more alcoholic drinks per day? No. 9. Are you being treated for osteoporosis? No. 10. Have you ever taken any of the following medications: Actonel, Evista, Fosamax, Miacalcin, Reclast, Boniva, Forteo, HRT (i.e. estrogen/hormone therapy), Protelos, Prolia, Vitamin D, Calcium, other ??? please specify. ANSWER: Yes, vitamin D and calcium. 11. Do you have any of the following medical conditions: Anorexia or bulimia, asthma or emphysema, end stage renal disease, hyperparathyroidism, any seizure disorders, cancer, inflammatory bowel diseases, hysterectomy, other ??? please specify. ANSWER: Yes, hysterectomy. 12. What was your maximum height (inches)? 66.5. 13. Do you perform weight bearing exercise regularly? No. 14. Do you regularly consume dairy products? Yes. 15. Do you drink caffeinated beverages? Yes. 16. At what age did your period start? 12. 17. Are you premenopausal? No. 18. How many full term pregnancies have you had? 2. 19. Have you ever missed your period for more than 6 months in a row (not including or menopause)? No. TECHNIQUE: Bone mineral density study was performed using the blogfoster. FINDINGS: The results of the study expressed as bone mineral density (BMD) are as follows: Lumbar spine L1 to L4: BMD: 1.256 g/cm2. T-score: 1.9. Z-score: 4.3. Neck Left: BMD: 0.683 g/cm2. T-score: -1.5. Z-score: 0.6. Right: BMD: 0.688 g/cm2. T-score: -1.4. Z-score: 0.6. Total Left: BMD: 0.960 g/cm2. T-score: 0.1. Z-score: 1.9. Right: BMD: 0.957 g/cm2. T-score: 0.1. Z-score: 1.9. IMPRESSION: Osteopenia. *Comparison exams done prior to 02/2020 were performed on different unit, PolySpot. COMPARISON: Compared with scan of 11/17/2020, the bone mineral density has decreased by 1.0 percent at the spine and decreased by 5.6 percent at the hip. Compared with scan of 11/11/2018, the bone mineral density has decreased by 4.3 percent at the spine and increased by 7.0 percent at the hip. FRAX 10-year Fracture Risk Major Osteoporotic Fracture: 10 percent Hip Fracture: 3.0 percent Reported Risk Factors: [place] () Neck BMD=0.683, BMI=37.4, smoking Gray Wright M.D. Diagnostic Radiologist [email or web address] SP/Dictated by: Gray Wright MD @ 05/23/2024 12:55:00 PM (Electronically Signed)
--- OUTSIDE RECORDS SUMMARY | 2024-05-22 15:04 | XMS_ITS | Clinical Summary ---
Author Organization [employer] [facility] Address [place], [place] [address] Care Team Providers Care Slicing Machine Operator/Tender Name Role Phone Silver Whalen MD Primary Care Provider [phone] Opal Alcantara MD Unavailable [phone] Nurses, Advanced Heart Failure Unavailable + Allergies [...] used), whichever comes first. Active vit-mineral eye [id number]-1mg- lut-zeax (PreserVision AREDS-2) capsule Take 1 Capsule [...] ination at a Health Care Facility 07/08/2008 Overview (07/08/2008): Lipids - 11/16/06 - cholesterol - 204, LDL - 112, TG - 230 Dexa- none found mammo- 07/09/08 Colon - 01/12/2003, due 2007 Pap/pelvic -09/26/05 - NL Thyroid- none found Hep B-none found Tetanus-12/12/02 Diabetic-no Unspecified essential hypertension 11/17/2006 Obesity, unspecified 11/17/2006 Other and unspecified hyperlipidemia 11/17/2006 Encounters Date Type Department Care Team Description 04/04/2024 Telephone [facility] [address] [place] [phone] Opal Alcantara MD Lab 04/01/2024 Telephone [facility] [address] [place] [address] [address] [place] [address] Oni Shaw MD Results (Oximetry results, 03/27/24) 04/01/2024 Orders Only [facility] [address] [place] [address] [address] Oni Shaw MD 1 scan: (1-Ord) Overnight Oximetry Test on Room Air, with CPAP, 03/27/24 03/25/2024 Orders Only [facility] Scanner 1 scan: (1-Ord) [place], LAB RESULTS, 03/25/2024 03/25/2024 Telephone [facility] [place] [address] [place] [phone] Radha House MD Results (BMP, proBNP) 03/21/2024 9:50 AM CDT Office Visit [facility] [address] [place] [address] [address] Oni Shaw MD Follow Up (COPD/MONIKA) 03/21/2024 Travel 03/06/2024 11:00 AM CDT Office Visit [facility] [address] [place] [address] Radha House MD 02/20/2024 Telephone [facility] [place] [address] [place] [address] Esperanza Joyce, JED Follow Up (Update on Furosemide (Lasix) tolerance) from Last 3 Months Immunizations Name Administration [...] Lymphoma Mother Other Other no colon or tailings dam pumper ecological cancers. no premature coronary artery disease. [...] Description 05/23/2024 10:30 AM CDT Office Visit [facility] [address] [facility] [address] [place] [phone] Pina Weller, SLIP DUMPER [address] [facility] [address] [place] [address] Health Maintenance Due Date Last Done Comments Depression screening for age 12+ 1961 Hepatitis C screening for ag e 18-79 1967 Medicare Wellness for age 65+ 2014 Pneumococcal series for age 65+ (2 of 2 - PCV) 10/27/2015 10/27/2014 Mammogram for age 45-75 03/10/2021 03/10/20 20 ([facility] 07/09/2008 Tetanus booster 05/05/2021 05/05/2011, 12/12/2002 COVID-19 [...] age 65+ Completed 2018 (Completed outside of [facility]) Medical Devices Implanted Type Area Statistical Engineer Device Identifier Shelf Expiration Date Model / Serial / Lot Adhesion Barrier 5x6in Seprafilm Absorb - [id number] Implanted:Qty: 1 on 07/11/2018 [facility] 05/10/2019 4301-02# / / [id number] Adhesion Barrier 5x6in Seprafilm Absorb - [id number] Implanted:Qty: 2 on 07/11/2018 by [facility] 09/09/2019 4301-02# / / [id number] Procedures Procedure Name Priority Date/Time Associated Diagnosis Comments AMB CONSULT TO HOME OXYGEN AND DME Routine 03/27/2024 MONIKA (obstructive sleep apnea) SCAN-LABORATORY REPORT 03/25/2024 12:00 AM CDT CHOLESTEROL,TOTAL Routine 10/25/2020 1:0 2 PM CUSTODIAL SERVICES MANAGER 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) [...] (03/25/2024 12:00 AM CDT) Scanner OTHER * CHOLESTEROL,TOTAL (10/25/2020 1:02 PM CUSTODIAL SERVICES MANAGER) CHOLESTEROL,TO PURVI 142 100 - 199 mg/dL 10/25/2020 5:38 PM CUSTODIAL SERVICES MANAGER [facility] PROVIDER ORDERED STATUS RANDOM 10/25/2020 5:38 PM CUSTODIAL SERVICES MANAGER [facility] Blood BLOOD SPECIMEN / Unknown 10/25/2020 1:02 PM CUSTODIAL SERVICES MANAGER 10/25/2020 5:21 PM CUSTODIAL SERVICES MANAGER Tamanna Rolon NP CHEMISTRY [facility] [address] [place] [address], * COLONOSCOPY (01/02/2018 11:48 AM CDT) 01/02/2018 11:4 8 AM CDT Narrative Transcriptions Alfredito Lyman MD - 01/02/2018 1:14 PM CDT [facility] Patient Name: Monik Gallego Procedure Date: 01/02/2018 Gender: Female Date of : 1950 Admit Type: Inpatient Procedure: Colonoscopy Proceduralist: [facility] [place] Indications/Pre-Op Diagnosis: Hematochezia Medications: General Procedure Description: [...] patient. ACR 2 Benign Finding Procedure Note Jessica Robi Edu, DO - 07/10/2008 Benign findings noted on mammogram. For complete description of themammographic examination, please reference scanned document [facility]. We are mailing a results letter to the patient. ACR 2 Benign Finding Collins Madison MD MAMMO from Last 3 Months or Most Recently Relevant to Health Maintenance Advance Directives Documents on File Type Date Recorded Patient Systems Software Developer Expl anation Healthcare Directive 01/02/2018 5:54 AM [...] 9:37 PM 01/03/2018 3:50 PM Care Teams Slicing Machine Operator/Tender Relationship Specialty Start Date End Date Silver Whalen MD [address] [place] [address] PCP - General Family Practice 12/31/17 Opal Alcantara MD [address] [place] [address] [address] [place], [place] [phone] Cardiovascular Disease 05/28/20 Nurses, Advanced Heart Failure [address] [place] [address] Advanced Heart Failure/Transplant Card 05/28/20
--- OUTSIDE RECORDS SUMMARY | 2024-05-22 15:04 | XMS_ITS | Clinical Summary ---
Author Organization [facility] Facility Address [address] [address] Care Team Providers Care Vascular Technician Name Role Phone Unavailable Primary Care Provider [...]
== END 2024-05-22 15:01 | disposition home or self-care (01) ==
LOC: RAD 15:01
PROVIDERS: PCP Family Medicine; Visit Provider Family Medicine
DX: Z13.820 Encounter for screening for osteoporosis (principal); M85.89 Other specified disorders of bone density and structure, multiple sites
CPT/HCPCS: 77080

== ENCOUNTER 2024-08-06 09:57 | Outpatient (CLI) | payer MEDICARE, BC, SELFPAY | END 2024-08-06 09:58 | disposition home or self-care (01) | LOC: RAD 09:58 | PROVIDERS: PCP Family Medicine; Visit Provider Internal Medicine | DX: I50.30 Unspecified diastolic (congestive) heart failure (principal) | CPT/HCPCS: 93306 ==

== ENCOUNTER 2024-08-19 10:09 | Outpatient (CLI) | payer MEDICARE, BC, SELFPAY | END 2024-08-19 10:10 | disposition home or self-care (01) | LOC: NFLDREF 08-20 10:49 | PROVIDERS: PCP Family Medicine; Referring Provider Family Medicine; Visit Provider Internal Medicine | DX: I50.30 Unspecified diastolic (congestive) heart failure (principal) | CPT/HCPCS: 80048; 83880 ==

== ENCOUNTER 2024-09-09 10:51 | Outpatient (CLI) | payer MEDICARE, BC, SELFPAY ==
--- NOTE | 2024-09-09 11:00 | CRLHL7_ITS ---
For Patients: As a result of the Century Cures Act, medical imaging exams and procedure reports are released immediately into your electronic medical record. You may view this report before your referring provider. If you have questions, please contact your health care provider. INDICATION: History of a primary malignant neoplasm of the fallopian tube. Prior hysterectomy. Port-A-Cath removal. Follow up. TECHNIQUE: Contrast-enhanced CT of the chest abdomen and pelvis. 110 cc nonionic Isovue-370 administered. COMPARISON: CT chest April 25, 2024. CT chest abdomen and pelvis March 03, 2024. CT chest abdomen and pelvis September 04, 2023. FINDINGS: CT chest: Stable tiny subcentimeter pulmonary nodules anterolateral right upper lobe of the lung. No new nodules. Minor curvilinear fibrosis or atelectasis anteromedial right middle lobe, lingula left upper lobe, and along the inferolateral left lower lobe of the lung likely postinfectious or postinflammatory. No pleural or pericardial effusions. No thoracic lymphadenopathy. The included breasts, included thyroid gland, trachea and mainstem bronchi, and thoracic aorta are within normal limits. CT of the abdomen and pelvis: Surgically absent uterus and ovaries. Normal appearing liver, spleen, pancreas, partly contracted gallbladder, and both adrenal glands. Chronic bilateral perinephric fat stranding. Bilateral renal cysts. No solid renal mass or hydronephrosis. Dense vascular calcifications within a normal caliber abdominal aorta and iliac arteries. Normal inferior vena cava. There is no evidence for small or large bowel obstruction. Normal appendix. No evidence for diverticulitis. No ascites or lymphadenopathy. Relatively stable right paraumbilical fat containing hernia with the orifice measuring 2.7 cm, not significantly changed. Scattered hypertrophic and degenerative changes of the included cervical thoracic and lumbar spine with scattered multilevel degenerative disc disease of the thoracolumbar spine. No lytic or blastic lesions within the included skeleton. IMPRESSION: No evidence for recurrent or metastatic disease. No significant change. Please note that all CT scans at this facility use dose modulation, iterative reconstruction, and/or weight-based dosing when appropriate to reduce radiation dose to as low as reasonably achievable. Dictated by Jesus Manuel Knight MD @ 09/11/2024 10:13:29 AM (Electronically Signed)
== END 2024-09-09 10:52 | disposition home or self-care (01) ==
LOC: CT 10:53
PROVIDERS: PCP Family Medicine; Visit Provider Nurse Practitioner Obstetrics & Gynecology
DX: C57.00 Malignant neoplasm of unspecified fallopian tube (principal)
CPT/HCPCS: 71260; 74177; Q9967

== ENCOUNTER 2025-02-18 09:38 | Outpatient (CLI) | payer MEDICARE, BC, SELFPAY ==
[2025-02-18 11:10] LABS: Chloride* 90 mmol/L (96-114); Sodium* 136 mmol/L (135-149)
[2025-02-18 11:11] LABS: Potassium* 4.8 mmol/L (3.6-5.1)
[2025-02-18 11:13] LABS: Blood Urea Nitrogen* 34 mg/dL (7-30); Creatinine* 1.5 mg/dL (0.5-1.5); Estimated Glomerular Filt Rate 36 ml/min
[2025-02-18 11:14] LABS: Anion Gap 9 mEq/L (7-15); Calcium* 10.4 mg/dL (8.4-10.6); Carbon Dioxide* 37 mmol/L (20-32); Glucose* 99 mg/dL (60-115)
[2025-02-18 11:39] LABS: NT Pro B Type NatriureticPept* 516 pg/mL (See Note)
== END 2025-02-18 09:39 | disposition home or self-care (01) ==
LOC: NPINS 09:39
PROVIDERS: PCP Family Medicine; Visit Provider Nurse Practitioner
DX: I50.30 Unspecified diastolic (congestive) heart failure (principal)
CPT/HCPCS: 80048; 83880

== ENCOUNTER 2025-05-04 08:32 | Outpatient (CLI) | payer MEDICARE, BC, SELFPAY | END 2025-05-04 08:33 | disposition home or self-care (01) | LOC: NFLDREF 05-05 18:13 | PROVIDERS: PCP Family Medicine; Referring Provider Family Medicine; Visit Provider Family Medicine | DX: E78.5 Hyperlipidemia, unspecified (principal) | CPT/HCPCS: 80053; 80061 ==

== ENCOUNTER 2025-07-13 11:16 | Outpatient (CLI) | payer MEDICARE, BC, SELFPAY ==
--- NOTE | 2025-07-13 11:30 | CRLHL7_ITS ---
For Patients: As a result of the Century Cures Act, medical imaging exams and procedure reports are released immediately into your electronic medical record. You may view this report before your referring provider. If you have questions, please contact your health care provider. INDICATION: BILATERAL SCREENING MAMMOGRAM, ASYMPTOMATIC 74 Y/O FEMALE COMPARISON: 05/15/2024, 04/17/2023, 04/12/2022 TECHNIQUE: Digital mammogram in CC and MLO projections including computer-aided detection (CAD) and tomosynthesis. BREAST COMPOSITION: There are scattered areas of fibroglandular density. FINDINGS: No suspicious findings. ASSESSMENT: BI-RADS 1 Negative RECOMMENDATION: Annual screening mammogram. A lay language report of this examination will be provided to the patient. Dictated by: Gray Wright MD @ 07/14/2025 09:12:44 (Electronically Signed)
== END 2025-07-13 11:17 | disposition home or self-care (01) ==
LOC: MAMMO 11:16
PROVIDERS: PCP Family Medicine; Visit Provider Family Medicine
DX: Z12.31 Encounter for screening mammogram for malignant neoplasm of breast (principal)
CPT/HCPCS: 77063; 77067

== ENCOUNTER 2025-07-19 22:50 | Outpatient (CLI) | payer MEDICARE, BC, SELFPAY | END 2025-07-19 22:51 | disposition home or self-care (01) | LOC: AMB 08-11 07:38 | PROVIDERS: PCP Family Medicine; Visit Provider Emergency Medicine | DX: R06.09 Other forms of dyspnea (principal) | CPT/HCPCS: A0425; A0427 ==

== ENCOUNTER 2025-07-19 23:28 | Observation (INO) | payer MEDICARE, BC, SELFPAY ==
--- OUTSIDE RECORDS SUMMARY | 2018-01-02 18:00 | XMS_ITS | Continuity of Care Document ---
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 [address] [place] [address], [id number] , [place]. tel:[phone] Referring Provider: Silver Whalen MD, [address] [place], [address]. tel:[phone] Init Hosp-da E&m Mod Severity [facility], [address] [address], [place], [place], [id number], tel:[phone] [facility] No Information 8 Nura Glaser. [address] [place] [address], [id number] , . tel:[phone] Referring Provider: Silver Whalen MD, [address] [place], [address]. tel:[phone] Family History Family Member Type Diagnosis Age At Onset No Information Payers Payer name Insurance type Covered constitution party ID Authoriza tion(s) [employer] BL [id number] Social History Type Description Quantity Date Captured Comments Sex Female Smoking Status No Information Chief Complaint And Reason For Visit No Information Reason For Referral Reason For Referral No Information History Of Present Illness Encounter Date Complaint History Of Prese nt Illness No Information Functional Status Date Functional Assessmen t No Information Instructions Date Instruction Additional Infor mation No Information Assessments Type Assessment Date No Information Patient Care Teams Name Effective Dates (start - stop) Status Members No Information
--- OUTSIDE RECORDS SUMMARY | 2018-01-02 18:00 | XMS_ITS | Continuity of Care Document ---
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 [address] [place] [address], [id number] , [place]. tel:[phone] Referring Provider: Silver Whalen MD, [address] [place], [address]. tel:[phone] Init Hosp-da E&m Mod Severity [facility], [address] [address], [place], [place], [id number], tel:[phone] [facility] No Information 8 Nura Glaser. [address] [place] [address], [id number] , . tel:[phone] Referring Provider: Silver Whalen MD, [address] [place], [address]. tel:[phone] Family History Family Member Type Diagnosis Age At Onset No Information Payers Payer name Insurance type Covered republican ID Authoriza tion(s) Blue Cross [place] BL [id number] Social History Type Description Quantity Date Captured [...]
--- OUTSIDE RECORDS SUMMARY | 2025-07-19 23:31 | XMS_ITS | Clinical Summary ---
Author Organization [facility] Address [address] [place] [address] Care Team Providers Care Pipe Turner Name Role Phone Silver Whalen MD Primary Care Provider [phone] Opal Alcantara MD Unavailable [phone] Nurses, Advanced Heart Failure Unavailable + Allergies Active Allergy Reactions Criticality Noted Date Comments Duloxetine Rash Medium 04/03/2019 Medications aspirin chewable 81 mg chewable tablet Take 1 tablet by mouth once daily with a meal. 0 9 Active gabapentin (NEURONTIN) 300 mg capsule Take 2 capsules by mouth 2 times daily. 3 0 Active CPAPIndications :MONIKA (obstructive sleep apnea) CPAP, heated humidifier, full face mask, headgear, chinstrap, filters and heated tubing. For home use. Pressure: 11 cm H20 Needs 4 liters oxygen bled into CPAP Length of Need: 99 months; Frequency of use: Daily 1 Each 1 2 Active cholecalciferol (Vitamin D-3) 400 unit tablet Take 1 Tablet (400 units) by mouth once daily. 40 units = 1 mcg (400 unit = 10 mcg) 0 2 Active atorvastatin (LIPITOR) 20 mg tablet Take 1 Tablet (20 mg) by mouth once daily. 0 2 Active oxygen-air delivery systems (HOME OXYGEN)Indicati ons:Chronic hypoxemic respiratory failure (HC) Oxygen for home use. Liters per minute: 4 L bled into CPAP and 2 per nasal cannula with activity Frequency of use: Continuous with portability. Length of need: 99 Months. 1 Each 4 Active vit-mineral eye [id number] (PreserVision AREDS-2) capsule Take 1 Capsule by mouth two times daily. Active fluticasone fur-umeclidiniu m-vilanterol (Trelegy Ellipta) 200-62.5-25 mcg inhaler Inhale 1 Puff by mouth once daily. Active furosemide (LASIX) 20 mg tabletIndicatio ns:Cardiopathy Take 1 Tablet (20 mg) by mouth once daily in the morning. 90 Tablet 3 4 Active carvediloL 12.5 mg tabletIndicatio ns:Cardiopathy Take 1 Tablet (12.5 mg) by mouth two times daily. 180 Tablet 1 5 Active losartan 25 mg tabletIndicatio ns:Cardiopathy Take 1 Tablet (25 mg) by mouth once daily. 90 Tablet 1 5 Active Farxiga 10 mg tabletIndicatio ns:Cardiopathy Take 1 Tablet (10 mg) by mouth once daily. 30 Tablet 4 5 Active Farxiga 10 mg tabletIndicatio ns:Cardiopathy Take 1 Tablet (10 mg) by mouth once daily. 30 Tablet 11 4 07/02/20 25 Discontin ued(Reord er (E-cancel not sent)) Active Problems Problem Noted Date Diagnosed Date [...] Encounters Date Type Department Care Team Description 07/02/2025 Refill [facility] [address] [place] [address] Pina Weller, SOFTWARE TRAINER Refill Request (Farxiga 10 mg tablet ) from Last 3 Months Immunizations Immunization Administration Dates Next Due Influenza Virus, Unspecified [...] Lymphoma Mother Other Other no colon or plating engineer ecological cancers. no premature coronary artery [...] per week Social Connections Answer Date Recorded Do you often feel lonely or isolated from those around you? 0 02/06/2024 Financial Resource Strain Answer Date R ecorded Difficulty of Paying Living Expenses 3 02/06/2024 Difficulty of Paying Living Expenses Not on file 02/06/2024 Food Insecurity Answer Date Recorded Do you worry your food will run out before you are able to buy more? 1 02/06/2024 Transportation Needs Answer Date Record ed Does lack of transportation keep you from medica l appointments? 1 02/06/2024 Does lack of transportation keep you from work, meetings or getting things that you need? 1 02/06/2024 Housing Stability Answer Date Recorded What is your housing situation today? 1 02/06/2024 Interpersonal Safety Answer Date Record ed Are you being hit, kicked, p ushed or yelled at (see row info)? No 02/06/2024 Interpersonal Safety Abuse 12 - 18 Not on file 02/06/2024 Interpersonal Safety Ambulatory Vulnerability No t on file 02/06/2024 Utilities Answer Date Recorded Do you have trouble paying f or utilities (for example, heat, electricity, water, phone)? 1 02/06/2024 Comments No Sex and Gender Information Value Date Recorded Sex Assigned at Not on file Legal Sex Female 6:29 AM CIVIL ENGINEERING TEACHER Gender Identity Not on file Sexual Orientation Not on file Obstetrics History Last Filed Vital Signs Vital Sign Reading Time Taken Comments Blood Pressure 112/60 04/03/2025 2:07 PM CDT Pulse 101 04/03/2025 2:45 PM CDT Temperature 36.7 C (98.1 F) 02/08/2024 7:51 AM CDT Respiratory Rate 18 02/08/2024 7:51 AM CDT Oxygen Saturation 91% 04/03/2025 2:45 PM CDT Inhaled Oxygen Concentration - - Weight 103.9 kg (229 lb) 04/03/2025 2:07 PM CDT Height 165.1 cm (5' 5) 04/03/2025 2:07 PM CDT Body Mass Index 38.11 04/03/2025 2:07 PM CDT Plan of Treatment Health Maintenance Due Date Last Done Comments Depression screening for age 12+ 1961 Hepatitis C screening for age 18-79 1967 Medicare Wellness for age 65+ 2014 Pneumococcal series for age 50+ (2 of 2 - PCV) 10/27/2015 10/27/2014 Tetanus booster 05/05/2021 05/05/2011, 12/12/2002 RSV vaccine for adults or (1 - 1-dose 75+ series) 2024 Influenza Vaccine (#1) 2025 8, 01/16/2018, 07/09/2008, Additional history exists Lipids for age 45-75 10/25/2025 10/25/2020, 09/27/2020, 08/30/2020, Additional history exists BMI (ht and wt on same day) for age 18+ 04/03/2026 04/03/2025, 02/24/2025, 08/25/2024, Additional history exists Colonoscopy through age 75 01/03/2028 01/02/2018, Zoster (shingles) series for age 50+ Completed 05/23/2019, 02/17/2019 DEXA/DXA scan for age 65+ Completed 2018 (Completed outside of [facility]) Hepatitis B series for 19+ Aged Out N o longer eligible based on patient's age to complete this topic Medical Devices Implanted Type Area Turnaround Engineer Device Identifier Shelf Expiration Date Model / Serial / Lot Adhesion Barrier 5x6in Seprafilm Absorb - [id number] Implanted:Qty: 1 on 07/11/2018 by Annamarie Massey MD at [facility] [employer] 05/10/2019 4301-02# / / [id number] Adhesion Barrier 5x6in Seprafilm Absorb - [id number] Implanted:Qty: 2 on 07/11/2018 by Annamarie Massey MD at [facility] [employer] 09/09/2019 4301-02# / / [id number] Procedures Procedure Name Priority Date/Time Associated Diagnosis Comments CHOLESTEROL,TOTAL Routine 10/25/2020 1:0 2 PM CIVIL ENGINEERING TEACHER 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) Encounter for examination for normal comparison and control in clinical research program COLONOSCOPY 01/02/2018 11:48 AM CDT from Last 3 Months or Most Recently Relevant to Health Maintenance Results * CHOLESTEROL,TOTAL (10/25/2020 1:02 PM CIVIL ENGINEERING TEACHER) CHOLESTEROL,TO PURVI 142 100 - 199 mg/dL 10/25/2020 5:38 PM CIVIL ENGINEERING TEACHER [facility] PROVIDER ORDERED STATUS RANDOM 10/25/2020 5:38 PM CIVIL ENGINEERING TEACHER [facility] Blood BLOOD SPECIMEN / Unknown 10/25/2020 1:02 PM CIVIL ENGINEERING TEACHER 10/25/2020 5:21 PM CIVIL ENGINEERING TEACHER Tamanna Gonzalse [facility]KINS CHEMISTRY Final Result [facility] [address] [place] [address], [place] * COLONOSCOPY (01/02/2018 11:48 AM CDT) 01/02/2018 11:4 8 AM CDT Narrative Transcriptions Alfredito Lyman MD - 01/02/2018 1:14 PM CDT [facility] Patient Name: Monik Gallego Procedure Date: 01/02/2018 Gender: Female Date of : 1950 Admit Type: Inpatient Procedure: Colonoscopy Proceduralist: [facility] Indications/Pre-Op Diagnosis: Hematochezia Medications: General Procedure Description: [...] 11:48 AM Alfredito Lyman MD PROCEDURE ORD Edited Resul t - Final from Last 3 Months or Most Recently Relevant to Health Maintenance Insurance [place] BL[place] HB ONLY [place] BLUE MR PB ONLY MEDICARE PART A HB ONLY MEDICARE PART B HB ONLY Advance Directives Documents on File Type Date Recorded Patient Rn Paralegal Expl anation Healthcare Directive 01/02/2018 5:54 AM [...] 9:37 PM 01/03/2018 3:50 PM Care Teams Pipe Turner Relationship Specialty Start Date End Date Silver Whalen MD [address] [place] [address] PCP - General Family Practice 12/31/17 Opal Alcantara MD [address] [place] [address] Cardiovascular Disease 05/28/20 Nurses, Advanced Heart Failure [address] [address] Advanced Heart Failure/Transplant Card 05/28/20
--- OUTSIDE RECORDS SUMMARY | 2025-07-19 23:31 | XMS_ITS | Clinical Summary ---
Author Organization [facility] Facility Address [address] [address] Care Team Providers Care Platinum And Palladium Kettle Tender Name Role Phone Unavailable Primary Care Provider Unavailabl e Social History Tobacco Use Types Packs/Day Years Used Date Smoking Tobacco: Never Assessed Comments Unknown Sex and Gender Information Value Date Recorded Sex Assigned at Not on file Legal Sex Female 10:00 AM EDT Gender Identity Not on file Sexual Orientation Not on file Plan of Treatment Health Maintenance Due Date Last Done Comments Breast Cancer Screening 1950 Colorectal Cancer Screening: Annual FOBT 1998 Colorectal Cancer Screening: Colonoscopy 1998 Colorectal Cancer Screening: Sigmoidoscopy 1998 Pneumococcal Vaccine: 50+ Ye ars (1 of 1 - PCV) 1999 Influenza Vaccine (#1) 2025 Hepatitis B Vaccine Aged Out No longe r eligible based on patient's age to complete this topic Insurance [facility] Medicare
--- OUTSIDE RECORDS SUMMARY | 2025-07-19 23:31 | XMS_ITS ---
Author Name Interface, [id number] lity Address [address] [facility] [address] [address] [facility] Address [address] [facility] [address] [address] Allergies and Adverse Reactions Medication/Group Name Reaction Severity Date duloxetine HCl 03/17/2025 Plan Date Type Value 09/22/2025 APPOINTMENT LAB 15 MIN 09/22/2025 APPOINTMENT OV 30 MIN 09/17/2025 APPOINTMENT LAB 15 MIN 03/17/2025 APPOINTMENT OV 30 MIN 03/17/2025 APPOINTMENT LAB 15 MIN 11/11/2024 APPOINTMENT OUTSIDE TEST 5 M IN 09/15/2024 APPOINTMENT OV 30 MIN 09/15/2024 APPOINTMENT LAB 15 MIN 03/17/2024 APPOINTMENT LAB 15 MIN 03/17/2024 APPOINTMENT OV 30 MIN 03/12/2024 APPOINTMENT LAB 15 MIN 03/12/2024 APPOINTMENT OV 30 MIN 03/03/2024 APPOINTMENT OUTSIDE TEST 5 M IN 11/21/2023 APPOINTMENT OV 30 MIN 11/21/2023 APPOINTMENT LAB 15 MIN 11/07/2023 APPOINTMENT OUTSIDE TEST 5 M IN 09/07/2023 APPOINTMENT LAB 15 MIN 09/07/2023 APPOINTMENT OV 30 MIN 09/04/2023 APPOINTMENT OUTSIDE TEST 5 M IN 05/23/2023 APPOINTMENT OV 30 MIN 05/23/2023 APPOINTMENT LAB 10 MIN 12/04/2022 APPOINTMENT OUTSIDE TEST 5 M IN 11/14/2022 APPOINTMENT PORT DRAW 15 MIN 11/14/2022 APPOINTMENT OV 30 MIN 11/13/2022 APPOINTMENT OV 30 MIN 11/13/2022 APPOINTMENT PORT DRAW 15 MIN 11/13/2022 APPOINTMENT OV 30 MIN 05/18/2022 APPOINTMENT OV 30 MIN 05/18/2022 APPOINTMENT PORT DRAW 15 MIN 11/14/2021 APPOINTMENT PORT DRAW 15 MIN 11/14/2021 APPOINTMENT OV 30 MIN 08/11/2021 APPOINTMENT RC - 605 ARM W/RC - STUDY PT, CAL BOOKED 08/11/2021 APPOINTMENT RC - 605 ARM W/RC - STUDY PT, CAL BOOKED 08/11/2021 LAB_ORDER Research Study D raw 09/29/2021 LAB_ORDER MRI breast w/ & w/o contrast 11/03/2021 LAB_ORDER [address] chest/abdomen /pelvis w/ contrast 11/03/2021 LAB_ORDER CMP 11/03/2021 LAB_ORDER CBC w/ auto diff 11/03/2021 LAB_ORDER TSH w/ reflex to free T4 11/14/2021 LAB_ORDER Research Study D raw 11/20/2021 LAB_ORDER TSH w/ reflex to free T4 11/20/2021 LAB_ORDER CMP 11/20/2021 LAB_ORDER CA 125 panel 11/20/2021 LAB_ORDER CBC w/ auto diff 04/16/2022 LAB_ORDER Mammogram, scree daniel, bilateral breast 05/11/2022 LAB_ORDER CT chest/abdomen /pelvis w/ contrast 05/18/2022 LAB_ORDER CA 125 panel 05/18/2022 LAB_ORDER Research Study D raw 10/18/2022 LAB_ORDER MRI breast w/ & w/o contrast 10/18/2022 LAB_ORDER CT chest/abdomen /pelvis w/ contrast 11/14/2022 LAB_ORDER CA 125 panel 12/04/2022 LAB_ORDER Port removal 02/20/2023 LAB_ORDER CA 125 panel 04/17/2023 LAB_ORDER Mammogram, scree daniel, bilateral breast 05/08/2023 LAB_ORDER CT chest/abdomen /pelvis w/ contrast 05/23/2023 LAB_ORDER CA 125 panel 09/04/2023 LAB_ORDER CT chest/abdomen /pelvis w/ contrast 09/07/2023 LAB_ORDER CA 125 panel 10/17/2023 LAB_ORDER MRI breast w/ & w/o contrast 03/03/2024 LAB_ORDER CT chest/abdomen /pelvis w/ contrast 03/17/2024 LAB_ORDER CA 125 panel 09/15/2024 LAB_ORDER CA 125 panel 09/17/2024 LAB_ORDER CT chest/abdomen /pelvis w/ contrast 11/13/2024 LAB_ORDER MRI breast w/ & w/o contrast 11/15/2024 LAB_ORDER MRI breast w/ & w/o contrast 03/15/2025 LAB_ORDER CT chest/abdomen /pelvis w/ contrast 03/17/2025 LAB_ORDER CA 125 panel 09/22/2025 LAB_ORDER CA 125 panel Reason for Visit LAB 15 MIN Encounters Date Name 08/11/2021 Candidal vulvovagini tis (disorder) 08/11/2021 Congestive heart emilie lure (disorder) 08/11/2021 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 Umbilical hernia Immunizations Date Name Route Dose Instructions Refusal Reason Stat us Flu vaccine - Adult Comp leted Covid-19 vaccine (Pfizer) Completed Covid-19 vaccine (Pfizer) Completed Flu vaccine - Adult Comp leted Covid-19 vaccine (Pfizer) Completed Diagnostic Results Date Type Test Units Lower Limit Upper Limit Result Flag Comments Status Ordered By Specimen Source [place] [facility] [place] sunglass clip attacher d [place]10 [facility] [place] See sunglass clip attacher d [place] [facility] [place] See sunglass clip attacher d 11/16 [facility] [place] See sunglass clip attacher d 02/17 [facility] [place] See sunglass clip attacher d 03/11 [facility] [place] See sunglass clip attacher d 03/24 [facility] [place] See sunglass clip attacher d 04/07 [facility] [place] See sunglass clip attacher d 05/18 CA 125 panel CA 125 UNITS/ ML 0.0 34.0 9.50 Test performed at [facility] on a Payment pluginass ay Analyzer that uses an immunoenz ymometric sandwich assay for analysis. Patient testing should not be performed using multiple hallie soto due to analytica l variation seen between test hallie soto. FINAL Harper Wheeler [facility] [place], [address] [facility] [phone] 0 Phone: () - 11/06 [facility] [place] See sunglass clip attacher d 11/14 CA 125 panel CA 125 UNITS/ ML 0.0 34.0 12.60 Test performed at [facility] on a [employer] 2000 Immunoass ay Analyzer that uses an immunoenz ymometric sandwich assay for analysis. Patient testing should not be performed using multiple methodolo gies due to analytica l variation seen between test methodolo gies. FINAL Harper Summer [facility] [place], [address] [facility] [id number] 0 Phone: () - 02/20 [facility] [place] See sunglass clip attacher d 05/23 CA 125 panel CA 125 UNITS/ ML 0.0 34.0 10.30 Test performed at [facility] on a [employer] 2000 Immunoass ay Analyzer that uses an immunoenz ymometric sandwich assay for analysis. Patient testing should not be performed using multiple methodolo gies due to analytica l variation seen between test methodolo gies. FINAL Pippa worthington [facility], [address] [facility] [phone] 0 Phone: () - 09/04 [facility] [place] See sunglass clip attacher d 09/07 CA 125 panel CA 125 UNITS/ ML 0.0 34.0 9.80 Test performed at [facility] on a [employer] 2000 Immunoass ay Analyzer that uses an immunoenz ymometric sandwich assay for analysis. Patient testing should not be performed using multiple methodolo gies due to analytica l variation seen between test methodolo gies. FINAL Theresa worthington [facility] [place], [address] [facility] [id number] 0 Phone: () - 03/17 CA 125 panel CA 125 U/ML 0.0 35.0 12.40 Test performed at [facility] on a [employer] Immunoass ay Analyzer that uses an immunomet negro immunoass ay technique . Patient testing should not be performed using multiple methodolo gies due to analytica l variation seen between test methodolo gies. FINAL Theresa Alvares [facility] [place], [address] [facility] [id number] 0 09/15 CA 125 panel CA 125 U/ML 0.0 35.0 8.60 Test performed at [facility] on a [employer] 7600 Immunoass ay Analyzer that uses an immunomet negro immunoass ay technique . Patient testing should not be performed using multiple methodolo gies due to analytica l variation seen between test methodolo gies. FINAL Pippa worthington * [facility] , [address] [facility] [phone] 0 03/17 CA 125 panel CA 125 U/ML 0.0 35.0 8.90 Test performed at [facility] on a [employer] Immunoass ay Analyzer that uses an immunomet negro immunoass ay technique . Patient testing should not be performed using multiple methodolo gies due to analytica l variation seen between test methodolo gies. FINAL Pippa worthington * [facility] , [address] [facility] [id number] 0 Medications Date Name Route Dose Frequency Instructions Start Date End Date Status Fill Status Indication 09/07 Vit C,E-Zn -Coppe r-Lute in-She rashad Oral 250 mg-90 mg-40 mg-1 mg active 06/07 Losart an Oral PO 1.0 tablet daily active 09/15 Carved ilol Oral 12.0 mg active 03/17 Dapagl iflozi n Oral active 03/17 Umecli dinium Inhale r 62.5 mcg/ac tuatio n active 05/19 Atorva statin Oral orally 20.0 mg daily active 03/17 Furose mide Oral active 12/21 Aspiri n Oral PO 1.0 tablet daily active 05/19 Cholec alcife rol Oral orally 10.0 daily active 03/17 Oxygen at night active 01/06 gabape ntin 300 MG Oral Capsul e 2021 active Primary malignant neoplasm of fallopian tube (disorder) 06/08 gabape ntin 300 MG Oral Capsul e 2020 active 12/07 gabape ntin 300 MG Oral Capsul e 2020 active 07/05 Diphen hydram ine IV intrave nous 50.0 mg Use as Directed Re-initiate treatment only upon physician approval. 2020 active Primary malignant neoplasm of fallopian tube (disorder) 07/05 Epinep hrine IM intramu scularl y 0.3 mg PRN anaphylaxis or severe hypersensit ivity reaction Re-initiate treatment only upon physician approval. 2020 active Primary malignant neoplasm of fallopian tube (disorder) 07/05 Methyl predni solone IV intrave nous 125.0 mg Use as Directed Re-initiate treatment only upon physician approval. 2020 active Primary malignant neoplasm of fallopian tube (disorder) 07/05 Hydroc ortiso ne IV intrave nous 100.0 mg Use as Directed Re-initiate treatment only upon physician approval. 2020 active Primary malignant neoplasm of fallopian tube (disorder) 07/05 [id number] invest IV intrave nous 480.0 mg DRUG Nivolumab or Placebo SUPPLIED BY SPONSOR. Verify correct stock is used.Mix in NS or D5W to a final concentration between 1 mg/mL to 10 mg/mL. Infuse with low protein binding filter (0.2 - 1.2 micron). Do not mix with other drugs. Do not shake. Flush line at end of infusion.Refer to the current version of the IB and/or Pharmacy Manual for complete storage, handling, dispensing, and infusion information. 2020 active Primary malignant neoplasm of fallopian tube (disorder) 07/05 Epinep hrine IM intramu scularl y 0.3 mg PRN anaphylaxis or severe hypersensit ivity reaction Re-initiate treatment only upon physician approval. 2020 active Primary malignant neoplasm of fallopian tube (disorder) 07/05 Diphen hydram ine IV intrave nous 50.0 mg Use as Directed Re-initiate treatment only upon physician approval. 2020 active Primary malignant neoplasm of fallopian tube (disorder) 07/05 Hydroc ortiso ne IV intrave nous 100.0 mg Use as Directed Re-initiate treatment only upon physician approval. 2020 active Primary malignant neoplasm of fallopian tube (disorder) 07/05 Methyl predni solone IV intrave nous 125.0 mg Use as Directed Re-initiate treatment only upon physician approval. 2020 active Primary malignant neoplasm of fallopian tube (disorder) 09/16 gabape ntin 300 MG Oral Capsul e 2020 active 07/05 Epinep hrine IM intramu scularl y 0.3 mg PRN anaphylaxis or severe hypersensit ivity reaction Re-initiate treatment only upon physician approval. 2019 active Primary malignant neoplasm of fallopian tube (disorder) 07/05 Hydroc ortiso ne IV intrave nous 100.0 mg Use as Directed Re-initiate treatment only upon physician approval. 2019 active Primary malignant neoplasm of fallopian tube (disorder) 07/05 Methyl predni solone IV intrave nous 125.0 mg Use as Directed Re-initiate treatment only upon physician approval. 2019 active Primary malignant neoplasm of fallopian tube (disorder) 07/05 Diphen hydram ine IV intrave nous 50.0 mg Use as Directed Re-initiate treatment only upon physician approval. 2019 active Primary malignant neoplasm of fallopian tube (disorder) 07/05 Hydroc ortiso ne IV intrave nous 100.0 mg Use as Directed Re-initiate treatment only upon physician approval. 2019 active Primary malignant neoplasm of fallopian tube (disorder) 07/05 Diphen hydram ine IV intrave nous 50.0 mg Use as Directed Re-initiate treatment only upon physician approval. 2019 active Primary malignant neoplasm of fallopian tube (disorder) 07/05 Methyl predni solone IV intrave nous 125.0 mg Use as Directed Re-initiate treatment only upon physician approval. 2019 active Primary malignant neoplasm of fallopian tube (disorder) 07/05 Epinep hrine IM intramu scularl y 0.3 mg PRN anaphylaxis or severe hypersensit ivity reaction Re-initiate treatment only upon physician approval. 2019 active Primary malignant neoplasm of fallopian tube (disorder) 11/23 Hydroc ortiso ne IV intrave nous 100.0 mg Use as Directed Re-initiate treatment only upon physician approval. 2019 active Primary malignant neoplasm of fallopian tube (disorder) 11/23 [id number] invest IV intrave nous 480.0 mg DRUG Nivolumab or Placebo SUPPLIED BY [employer]ONSOR. Verify correct stock is used.Mix in NS or D5W to a final concentration between 1 mg/mL to 10 mg/mL. Infuse with low protein binding filter (0.2 - 1.2 micron). Do not mix with other drugs. Do not shake. Flush line at end of infusion.Refer to the current version of the IB and/or Pharmacy Manual for complete storage, handling, dispensing, and infusion information. 07/05 on hold Primary malignant neoplasm of fallopian tube (disorder) 11/23 Epinep hrine IM intramu scularl y 0.3 mg PRN anaphylaxis or severe hypersensit ivity reaction Re-initiate treatment only upon physician approval. 2019 active Primary malignant neoplasm of fallopian tube (disorder) 11/23 Methyl predni solone IV intrave nous 125.0 mg Use as Directed Re-initiate treatment only upon physician approval. 2019 active Primary malignant neoplasm of fallopian tube (disorder) 11/23 Diphen hydram ine IV intrave nous 50.0 mg Use as Directed Re-initiate treatment only upon physician approval. 2019 active Primary malignant neoplasm of fallopian tube (disorder) 07/01 gabape ntin 300 MG Oral Capsul e 2019 active 11/23 Epinep hrine IM intramu scularl y 0.3 mg PRN anaphylaxis or severe hypersensit ivity reaction Re-initiate treatment only upon physician approval. 2019 active Primary malignant neoplasm of fallopian tube (disorder) 11/23 Methyl predni solone IV intrave nous 125.0 mg Use as Directed Re-initiate treatment only upon physician approval. 2019 active Primary malignant neoplasm of fallopian tube (disorder) 11/23 Hydroc ortiso ne IV intrave nous 100.0 mg Use as Directed Re-initiate treatment only upon physician approval. 2019 active Primary malignant neoplasm of fallopian tube (disorder) 11/23 Diphen hydram ine IV intrave nous 50.0 mg Use as Directed Re-initiate treatment only upon physician approval. 2019 active Primary malignant neoplasm of fallopian tube (disorder) 11/23 Methyl predni solone IV intrave nous 125.0 mg Use as Directed Re-initiate treatment only upon physician approval. 2019 active Primary malignant neoplasm of fallopian tube (disorder) 11/23 Hydroc ortiso ne IV intrave nous 100.0 mg Use as Directed Re-initiate treatment only upon physician approval. 2019 active Primary malignant neoplasm of fallopian tube (disorder) 11/23 Epinep hrine IM intramu scularl y 0.3 mg PRN anaphylaxis or severe hypersensit ivity reaction Re-initiate treatment only upon physician approval. 2019 active Primary malignant neoplasm of fallopian tube (disorder) 11/23 Diphen hydram ine IV intrave nous 50.0 mg Use as Directed Re-initiate treatment only upon physician approval. 2019 active Primary malignant neoplasm of fallopian tube (disorder) 04/14 gabape ntin 300 MG Oral Capsul e 2019 active 11/23 Epinep hrine IM intramu scularl y 0.3 mg PRN anaphylaxis or severe hypersensit ivity reaction Re-initiate treatment only upon physician approval. 2019 active Primary malignant neoplasm of fallopian tube (disorder) 11/23 Diphen hydram ine IV intrave nous 50.0 mg Use as Directed Re-initiate treatment only upon physician approval. 2019 active Primary malignant neoplasm of fallopian tube (disorder) 11/23 Methyl predni solone IV intrave nous 125.0 mg Use as Directed Re-initiate treatment only upon physician approval. 2019 active Primary malignant neoplasm of fallopian tube (disorder) 11/23 Hydroc ortiso ne IV intrave nous 100.0 mg Use as Directed Re-initiate treatment only upon physician approval. 2019 active Primary malignant neoplasm of fallopian tube (disorder) 11/23 Diphen hydram ine IV intrave nous 50.0 mg Use as Directed Re-initiate treatment only upon physician approval. 2019 active Primary malignant neoplasm of fallopian tube (disorder) 11/23 Hydroc ortiso ne IV intrave nous 100.0 mg Use as Directed Re-initiate treatment only upon physician approval. 2019 active Primary malignant neoplasm of fallopian tube (disorder) 11/23 Methyl predni solone IV intrave nous 125.0 mg Use as Directed Re-initiate treatment only upon physician approval. 2019 active Primary malignant neoplasm of fallopian tube (disorder) 11/23 Epinep hrine IM intramu scularl y 0.3 mg PRN anaphylaxis or severe hypersensit ivity reaction Re-initiate treatment only upon physician approval. 2019 active Primary malignant neoplasm of fallopian tube (disorder) 11/23 Diphen hydram ine IV intrave nous 50.0 mg Use as Directed Re-initiate treatment only upon physician approval. 2019 active Primary malignant neoplasm of fallopian tube (disorder) 11/23 Hydroc ortiso ne IV intrave nous 100.0 mg Use as Directed Re-initiate treatment only upon physician approval. 2019 active Primary malignant neoplasm of fallopian tube (disorder) 11/23 Methyl predni solone IV intrave nous 125.0 mg Use as Directed Re-initiate treatment only upon physician approval. 2019 active Primary malignant neoplasm of fallopian tube (disorder) 11/23 Epinep hrine IM intramu scularl y 0.3 mg PRN anaphylaxis or severe hypersensit ivity reaction Re-initiate treatment only upon physician approval. 2019 active Primary malignant neoplasm of fallopian tube (disorder) 11/23 Epinep hrine IM intramu scularl y 0.3 mg PRN anaphylaxis or severe hypersensit ivity reaction Re-initiate treatment only upon physician approval. 2019 active Primary malignant neoplasm of fallopian tube (disorder) 11/23 Hydroc ortiso ne IV intrave nous 100.0 mg Use as Directed Re-initiate treatment only upon physician approval. 2019 active Primary malignant neoplasm of fallopian tube (disorder) 11/23 Diphen hydram ine IV intrave nous 50.0 mg Use as Directed Re-initiate treatment only upon physician approval. 2019 active Primary malignant neoplasm of fallopian tube (disorder) 11/23 Methyl predni solone IV intrave nous 125.0 mg Use as Directed Re-initiate treatment only upon physician approval. 2019 active Primary malignant neoplasm of fallopian tube (disorder) 11/23 Methyl predni solone IV intrave nous 125.0 mg Use as Directed Re-initiate treatment only upon physician approval. 2019 active Primary malignant neoplasm of fallopian tube (disorder) 11/23 Diphen hydram ine IV intrave nous 50.0 mg Use as Directed Re-initiate treatment only upon physician approval. 2019 active Primary malignant neoplasm of fallopian tube (disorder) 11/23 Hydroc ortiso ne IV intrave nous 100.0 mg Use as Directed Re-initiate treatment only upon physician approval. 2019 active Primary malignant neoplasm of fallopian tube (disorder) 11/23 Epinep hrine IM intramu scularl y 0.3 mg PRN anaphylaxis or severe hypersensit ivity reaction Re-initiate treatment only upon physician approval. 2019 active Primary malignant neoplasm of fallopian tube (disorder) 07/04 Diphen hydram ine IV intrave nous 50.0 mg Use as Directed Re-initiate treatment only upon physician approval. 2019 active Primary malignant neoplasm of fallopian tube (disorder) 07/04 Methyl predni solone IV intrave nous 125.0 mg Use as Directed Re-initiate treatment only upon physician approval. 2019 active Primary malignant neoplasm of fallopian tube (disorder) 07/04 Hydroc ortiso ne IV intrave nous 100.0 mg Use as Directed Re-initiate treatment only upon physician approval. 2019 active Primary malignant neoplasm of fallopian tube (disorder) 07/04 Epinep hrine IM intramu scularl y 0.3 mg PRN anaphylaxis or severe hypersensit ivity reaction Re-initiate treatment only upon physician approval. 2019 active Primary malignant neoplasm of fallopian tube (disorder) 07/04 Epinep hrine IM intramu scularl y 0.3 mg PRN anaphylaxis or severe hypersensit ivity reaction Re-initiate treatment only upon physician approval. 2019 active Primary malignant neoplasm of fallopian tube (disorder) 07/04 Hydroc ortiso ne IV intrave nous 100.0 mg Use as Directed Re-initiate treatment only upon physician approval. 2019 active Primary malignant neoplasm of fallopian tube (disorder) 07/04 Methyl predni solone IV intrave nous 125.0 mg Use as Directed Re-initiate treatment only upon physician approval. 2019 active Primary malignant neoplasm of fallopian tube (disorder) 07/04 Diphen hydram ine IV intrave nous 50.0 mg Use as Directed Re-initiate treatment only upon physician approval. 2019 active Primary malignant neoplasm of fallopian tube (disorder) 07/04 Methyl predni solone IV intrave nous 125.0 mg Use as Directed Re-initiate treatment only upon physician approval. 2019 active Primary malignant neoplasm of fallopian tube (disorder) 07/04 Diphen hydram ine IV intrave nous 50.0 mg Use as Directed Re-initiate treatment only upon physician approval. 2019 active Primary malignant neoplasm of fallopian tube (disorder) 07/04 Hydroc ortiso ne IV intrave nous 100.0 mg Use as Directed Re-initiate treatment only upon physician approval. 2019 active Primary malignant neoplasm of fallopian tube (disorder) 07/04 Epinep hrine IM intramu scularl y 0.3 mg PRN anaphylaxis or severe hypersensit ivity reaction Re-initiate treatment only upon physician approval. 2019 active Primary malignant neoplasm of fallopian tube (disorder) 07/04 Methyl predni solone IV intrave nous 125.0 mg Use as Directed Re-initiate treatment only upon physician approval. 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) 07/04 Epinep hrine IM intramu scularl y 0.3 mg PRN anaphylaxis or severe hypersensit ivity reaction Re-initiate treatment only upon physician approval. 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) 07/04 Hydroc ortiso ne IV intrave nous 100.0 mg Use as Directed Re-initiate treatment only upon physician approval. 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) 07/04 Diphen hydram ine IV intrave nous 50.0 mg Use as Directed Re-initiate treatment only upon physician approval. 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) 07/04 Hydroc ortiso ne IV intrave nous 100.0 mg Use as Directed Re-initiate treatment only upon physician approval. 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) 07/04 Methyl predni solone IV intrave nous 125.0 mg Use as Directed Re-initiate treatment only upon physician approval. 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) 07/04 Diphen hydram ine IV intrave nous 50.0 mg Use as Directed Re-initiate treatment only upon physician approval. 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) 07/04 Epinep hrine IM intramu scularl y 0.3 mg PRN anaphylaxis or severe hypersensit ivity reaction Re-initiate treatment only upon physician approval. 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) 07/04 Epinep hrine IM intramu scularl y 0.3 mg PRN anaphylaxis or severe hypersensit ivity reaction Re-initiate treatment only upon physician approval. 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) 07/04 Diphen hydram ine IV intrave nous 50.0 mg Use as Directed Re-initiate treatment only upon physician approval. 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) 07/04 Hydroc ortiso ne IV intrave nous 100.0 mg Use as Directed Re-initiate treatment only upon physician approval. 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) 07/04 Methyl predni solone IV intrave nous 125.0 mg Use as Directed Re-initiate treatment only upon physician approval. 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) Active Candidal vulvovaginitis (disorder) Active Hypoxia Active Congestive heart failure (disorder) Active Secondary polycythemia Active Personal history of fallopian tube cancer Active Left ventricular hypertrophy Active Cardiomegaly Active Umbilical hernia Active Vital Signs Date Type Value 08/11/2021 Respiratory Rate 16.00 08/11/2021 Heart Beat 70.00 08/11/2021 BSA 2.03 08/11/2021 BMI 36.54 08/11/2021 Height 64.50 08/11/2021 Weight 216.20 08/11/2021 Pain Scale 0.00 08/11/2021 Intravascular Systolic 130 08/11/2021 Intravascular Diastolic 74 08/11/2021 Oxygen Saturation 95.00 08/11/2021 Body Temperature 98.20 11/14/2021 Oxygen Saturation 92.00 11/14/2021 BMI 37.35 11/14/2021 Height 64.50 11/14/2021 Weight 221.00 11/14/2021 BSA 2.05 11/14/2021 Intravascular Systolic 108 11/14/2021 Intravascular Diastolic 62 11/14/2021 Respiratory Rate 16.00 11/14/2021 Heart Beat 66.00 11/14/2021 Body Temperature 98.50 11/14/2021 Pain Scale 0.00 05/18/2022 Respiratory Rate 16.00 05/18/2022 Heart Beat 68.00 05/18/2022 Body Temperature 98.50 05/18/2022 Oxygen Saturation 95.00 05/18/2022 Intravascular Systolic 120 05/18/2022 Intravascular Diastolic 58 05/18/2022 BSA 2.09 05/18/2022 BMI 38.94 05/18/2022 Height 64.50 05/18/2022 Weight 230.40 05/18/2022 Pain Scale 0.00 11/14/2022 Intravascular Systolic 130 11/14/2022 Intravascular Diastolic 70 11/14/2022 Pain Scale 0.00 11/14/2022 Weight 227.00 11/14/2022 Height 64.50 11/14/2022 BSA 2.08 11/14/2022 Respiratory Rate 16.00 11/14/2022 Heart Beat 68.00 11/14/2022 Body Temperature 98.50 11/14/2022 Oxygen Saturation 90.00 11/14/2022 BMI 38.36 05/23/2023 BSA 2.06 05/23/2023 BMI 37.86 05/23/2023 Height 64.50 05/23/2023 Weight 224.00 05/23/2023 Pain Scale 0.00 05/23/2023 Intravascular Systolic 125 05/23/2023 Intravascular Diastolic 82 05/23/2023 Respiratory Rate 16.00 05/23/2023 Heart Beat 62.00 05/23/2023 Oxygen Saturation 95.00 05/23/2023 Body Temperature 97.80 09/07/2023 Body Temperature 98.30 09/07/2023 Heart Beat 66.00 09/07/2023 Respiratory Rate 16.00 09/07/2023 Oxygen Saturation 91.00 09/07/2023 Intravascular Systolic 150 09/07/2023 Intravascular Diastolic 80 09/07/2023 Pain Scale 0.00 09/07/2023 Weight 225.50 09/07/2023 Height 64.50 09/07/2023 BMI 38.11 09/07/2023 BSA 2.07 03/17/2024 Oxygen Saturation 95.00 03/17/2024 Respiratory Rate 16.00 03/17/2024 Heart Beat 69.00 03/17/2024 Body Temperature 97.90 03/17/2024 BSA 2.05 03/17/2024 Pain Scale 0.00 03/17/2024 Weight 220.20 03/17/2024 Height 64.50 03/17/2024 BMI 37.21 03/17/2024 Intravascular Systolic 104 03/17/2024 Intravascular Diastolic 70 09/15/2024 Oxygen Saturation 92.00 09/15/2024 Respiratory Rate 16.00 09/15/2024 Heart Beat 64.00 09/15/2024 Body Temperature 98.10 09/15/2024 Intravascular Systolic 112 09/15/2024 Intravascular Diastolic 64 09/15/2024 BSA 2.10 09/15/2024 BMI 39.46 09/15/2024 Height 64.50 09/15/2024 Weight 233.50 09/15/2024 Pain Scale 0.00 03/17/2025 Pain Scale 0.00 03/17/2025 Body Temperature 98.30 03/17/2025 Heart Beat 66.00 03/17/2025 Respiratory Rate 16.00 03/17/2025 BSA 2.08 03/17/2025 Height 64.50 03/17/2025 Weight 228.50 03/17/2025 Intravascular Systolic 128 03/17/2025 Intravascular Diastolic 80 03/17/2025 Oxygen Saturation 91.00 03/17/2025 BMI 38.62
--- OUTSIDE RECORDS SUMMARY | 2025-07-19 23:31 | XMS_ITS ---
Author Name Interface, [id number] lity Address [address] [address] [facility] Address [address] [address] Allergies and Adverse Reactions Medication/Group Name Reaction [...] MIN 05/18/2022 APPOINTMENT PORT DRAW 15 MIN 05/18/2022 LAB_ORDER CA 125 panel 05/18/2022 LAB_ORDER [...] Visit LAB 15 MIN Encounters Date Name 05/18/2022 BRCA2 gene mutation positive (finding) 05/18/2022 Candidal vulvovagini tis (disorder) 05/18/2022 Cardiomegaly 05/18/2022 Congestive heart emilie lure (disorder) 05/18/2022 Hyponatremia 05/18/2022 Hypoxia 05/18/2022 Osteopenia 05/18/2022 Personal history of fallopian tube cancer 05/18/2022 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) 05/18/2022 Secondary peripheral neuropathy (disorder) 05/18/2022 Tobacco dependence s yndrome (disorder) 05/18/2022 Umbilical hernia Immunizations Date Name Route Dose Instructions Refusal Reason Stat us Flu vaccine - Adult Comp leted Covid-19 vaccine (Pfizer) Completed Diagnostic Results Date Type Test Units Lower Limit Upper Limit Result Flag Comments Status Ordered By Specimen Source Lab Address 05/18 CA 125 panel CA 125 UNITS/ ML 0.0 34.0 9.50 Test performed at [facility] on a [employer] 2000 Immunoass ay Analyzer that uses an immunoenz ymometric sandwich assay for analysis. Patient testing should not be performed using multiple methodolo gies due to analytica l variation seen between test methodolo gies. FINAL [facility] [place] [address] [place] [address] [phone] Phone: () - 11/06 [facility] other lab See dip guider stoves d 11/14 CA 125 panel CA 125 UNITS/ ML 0.0 34.0 12.60 Test performed at [facility] on a [employer] Immunoass ay Analyzer that uses an immunoenz ymometric sandwich assay for analysis. Patient testing should not be performed using multiple methodolo gies due to analytica l variation seen between test methodolo gies. FINAL [facility] [place] [address] [phone] Phone: () - 02/20 [facility] other lab See dip guider stoves d 05/23 CA 125 panel CA 125 UNITS/ ML 0.0 34.0 10.30 Test performed at [facility] on a [employer] 2000 Immunoass ay Analyzer that uses an immunoenz ymometric sandwich assay for analysis. Patient testing should not be performed using multiple methodolo gies due to analytica l variation seen between test methodolo gies. FINAL Pippa worthington [facility] [place] [address] [place] [address] [phone] 0 Phone: () - 09/04 [facility] other lab See dip guider stoves d 09/07 CA 125 panel CA 125 UNITS/ ML 0.0 34.0 9.80 Test performed at [facility] on a [employer] Immuno[employer] ay Analyzer that uses an immunoenz ymometric sandwich assay for analysis. Patient testing should not be performed using multiple methodolo gies due to analytica l variation seen between test methodolo gies. FINAL Theresa worthington [facility], [address] [place] [address] [phone] 0 Phone: () - 03/17 CA 125 panel CA 125 U/ML 0.0 35.0 12.40 Test performed at [facility] on a [employer]600 Immunoass ay Analyzer that uses an immunomet negro immunoass ay technique . Patient testing should not be performed using multiple methodolo gies due to analytica l variation seen between test methodolo gies. FINAL Theresa Georgi worthington * [facility] - [address] [place] [address] [phone] 09/15 CA 125 panel CA 125 U/ML 0.0 35.0 8.60 Test performed at [facility] on a [employer]600 Immunoass ay Analyzer that uses an immunomet negro immunoass ay technique . Patient testing should not be performed using multiple methodolo gies due to analytica l variation seen between test methodolo gies. FINAL Pippa Garciatammy elin * [facility] , [facility] [address] [place] [address] [phone] 0 03/17 CA 125 panel CA 125 U/ML 0.0 35.0 8.90 Test performed at [facility] on a [employer] [address] Immun[employer] ay Analyzer that uses an immunomet negro immunoass ay technique . Patient testing should not be performed using multiple methodolo gies due to analytica l variation seen between test methodolo gies. FINAL Pippa Garciapeterjesus worthington * [facility] , [address] [place] [address] [phone] Medications Date Name Route Dose Frequency Instructions Start Date End Date Status Fill Status Indication 03/17 Dapagl iflozi n Oral active 03/17 Umecli dinium Inhale r 62.5 mcg/ac tuatio n active 05/19 Atorva statin Oral orally 20.0 mg daily active 03/17 Furose mide Oral active 09/15 Carved ilol Oral 12.0 mg active 12/21 Aspiri n Oral PO 1.0 tablet daily active 09/07 Vit C,E-Zn -Coppe r-Lute in-She rashad Oral 250 mg-90 mg-40 mg-1 mg active 05/19 Cholec alcife rol Oral orally 10.0 daily active 03/17 Oxygen at night active 06/07 Losart an Oral PO 1.0 tablet daily active 01/06 gabape ntin 300 MG Oral [...] malignant neoplasm of fallopian tube (disorder) 07/05 [id number] IV intrave nous 480.0 mg [...] MG Oral Capsul e 2019 active 11/23 Diphen hydram ine IV intrave nous [...] MG Oral Capsul e 2019 active 11/23 Diphen hydram ine IV intrave nous [...] hernia Active Vital Signs Date Type Value 05/18/2022 BSA 2.09 05/18/2022 BMI 38.94 05/18/2022 Height 64.50 05/18/2022 Weight 230.40 05/18/2022 Oxygen Saturation 95.00 05/18/2022 Intravascular Systolic 120 05/18/2022 Intravascular Diastolic 58 05/18/2022 Respiratory Rate 16.00 05/18/2022 Heart Beat 68.00 05/18/2022 Body Temperature 98.50 05/18/2022 Pain Scale 0.00 11/14/2022 BMI 38.36 11/14/2022 BSA 2.08 11/14/2022 Height 64.50 11/14/2022 Weight 227.00 11/14/2022 Pain Scale 0.00 11/14/2022 Intravascular Systolic 130 11/14/2022 Intravascular Diastolic 70 11/14/2022 Respiratory Rate 16.00 11/14/2022 Heart Beat 68.00 11/14/2022 Body Temperature 98.50 11/14/2022 Oxygen Saturation 90.00 05/23/2023 Oxygen Saturation 95.00 05/23/2023 Body Temperature 97.80 05/23/2023 Heart Beat 62.00 05/23/2023 Respiratory Rate 16.00 05/23/2023 BSA 2.06 05/23/2023 Pain Scale 0.00 05/23/2023 Weight 224.00 05/23/2023 Height 64.50 05/23/2023 BMI 37.86 05/23/2023 Intravascular Systolic 125 05/23/2023 Intravascular Diastolic 82 09/07/2023 Body Temperature 98.30 09/07/2023 Heart Beat 66.00 09/07/2023 Respiratory Rate 16.00 09/07/2023 Oxygen Saturation 91.00 09/07/2023 Intravascular Systolic 150 09/07/2023 Intravascular Diastolic 80 09/07/2023 Pain Scale 0.00 09/07/2023 Weight 225.50 09/07/2023 Height 64.50 09/07/2023 BMI 38.11 09/07/2023 BSA 2.07 03/17/2024 Respiratory Rate 16.00 03/17/2024 Heart Beat 69.00 03/17/2024 Body Temperature 97.90 03/17/2024 BSA 2.05 03/17/2024 BMI 37.21 03/17/2024 Intravascular Systolic 104 03/17/2024 Intravascular Diastolic 70 03/17/2024 Pain Scale 0.00 03/17/2024 Weight 220.20 03/17/2024 Height 64.50 03/17/2024 Oxygen Saturation 95.00 09/15/2024 Respiratory Rate 16.00 09/15/2024 Heart Beat 64.00 09/15/2024 Body Temperature 98.10 09/15/2024 Oxygen Saturation 92.00 09/15/2024 Intravascular Systolic 112 09/15/2024 Intravascular Diastolic 64 09/15/2024 BSA 2.10 09/15/2024 BMI 39.46 09/15/2024 Height 64.50 09/15/2024 Weight 233.50 09/15/2024 Pain Scale 0.00 03/17/2025 Oxygen Saturation 91.00 03/17/2025 Body Temperature 98.30 03/17/2025 Heart Beat 66.00 03/17/2025 Respiratory Rate 16.00 03/17/2025 BSA 2.08 03/17/2025 Height 64.50 03/17/2025 Weight 228.50 03/17/2025 Pain Scale 0.00 03/17/2025 Intravascular Systolic 128 03/17/2025 Intravascular Diastolic 80 03/17/2025 BMI 38.62
--- OUTSIDE RECORDS SUMMARY | 2025-07-19 23:32 | XMS_ITS ---
Author Name Interface, [id number] lity Address [address] [facility] [address] [address] [facility] Oncology Address [address] [facility] [address] [address] Allergies and Adverse Reactions Medication/Group Name Reaction [...] BOOKED 08/11/2021 APPOINTMENT RC - 605 ARM W/CARLOTA - STUDY PT, CAL BOOKED 05/23/2021 APPOINTMENT RCPD - 605 PORT DRAW/ STUDY - 605 PORT DRAW/ STUDY 05/23/2021 APPOINTMENT RCPD - 605 PORT DRAW/ STUDY - 605 PORT DRAW/ STUDY 02/15/2021 APPOINTMENT RCPD - 605 PORT DRAW/RC - 605 PORT DRAW/RC 02/15/2021 APPOINTMENT RCPD - 605 PORT DRAW/RC - 605 PORT DRAW/RC 02/14/2021 APPOINTMENT RC - [address] AW/RC - 605 PORT DRAW/RC 02/14/2021 APPOINTMENT RC - [address] AW/RC - 605 PORT DRAW/RC 02/11/2021 APPOINTMENT RCPD - 605 PORT DRAW/RC - 605 PORT DRAW/RC 02/11/2021 APPOINTMENT RCPD - 605 PORT DRAW/RC - 605 PORT DRAW/RC 02/09/[address] - 605 CT CAP @ [facility] - CHECK IN @10 AM 11/22/2020 APPOINTMENT RCT2 - 605 PORT NIVO/PLACEBO - 605 PORT NIVO/PLACEBO 11/22/2020 APPOINTMENT RCPD - 605 PORT - 605 PORT 11/22/2020 APPOINTMENT RCPD - 605 PORT - 605 PORT 10/25/2020 APPOINTMENT RCT2 - 605 PORT NIVO/PLACEBO - 605 PORT NIVO/PLACEBO 10/25/2020 APPOINTMENT RCT2 - 605 PORT NIVO/PLACEBO - 605 PORT NIVO/PLACEBO 10/25/2020 APPOINTMENT RCT2 - 605 PORT NIVO/PLACEBO - 605 PORT NIVO/PLACEBO 10/25/2020 APPOINTMENT EKG - - 09/27/2020 APPOINTMENT RCT1 - 605 PORT NIVO/PLACEBO - 605 PORT NIVO/PLACEBO 09/27/2020 APPOINTMENT RCT1 - 605 PORT NIVO/PLACEBO - 605 PORT NIVO/PLACEBO 09/27/2020 APPOINTMENT RCT1 - 605 PORT NIVO/PLACEBO - 605 PORT NIVO/PLACEBO 08/30/2020 APPOINTMENT RCT1 - 605 PORT NIVO/PLACEBO - 605 PORT NIVO/PLACEBO 08/30/2020 APPOINTMENT RCT1 - 605 PORT NIVO/PLACEBO - 605 PORT NIVO/PLACEBO 08/30/2020 APPOINTMENT RCT1 - 605 PORT NIVO/PLACEBO - 605 PORT NIVO/PLACEBO 08/02/2020 APPOINTMENT RCT2 - 605 PD/RC /PLACEBO/NIVO - 605 PD/RC/PLACEBO/NIVO 08/02/2020 APPOINTMENT RCT2 - 605 PD/RC /PLACEBO/NIVO - 605 PD/RC/PLACEBO/NIVO 08/02/2020 APPOINTMENT RCT2 - 605 PD/RC /PLACEBO/NIVO - 605 PD/RC/PLACEBO/NIVO 07/05/2020 APPOINTMENT RCT1 - 605 PD/RC /NIVOLUMAB OR - PLACEBO 07/05/2020 APPOINTMENT PD - 605 PD/RC/N IVOLUMAB OR - PLACEBO 07/05/2020 APPOINTMENT RCT1 - 605 PD/RC /NIVOLUMAB OR - PLACEBO 06/07/2020 APPOINTMENT RCT1 - 605 PORT NIVO/PLACEBO - MD ON VACATION 06/07/2020 APPOINTMENT RCT1 - 605 PORT NIVO/PLACEBO - MD ON VACATION 06/07/2020 APPOINTMENT RCT1 - 605 PORT NIVO/PLACEBO - MD ON VACATION 05/10/2020 APPOINTMENT RCT1 - 605 PORT NIVO/PLACEBO - 605 PORT NIVO/PLACEBO 05/10/2020 APPOINTMENT RCT1 - 605 PORT NIVO/PLACEBO - 605 PORT NIVO/PLACEBO 05/10/2020 APPOINTMENT RCT1 - 605 PORT NIVO/PLACEBO - 605 PORT NIVO/PLACEBO 04/12/2020 APPOINTMENT RCT1 - 065 PORT NIVO/PLACEBO - 065 PORT NIVO/PLACEBO 04/12/2020 APPOINTMENT RCT1 - 065 PORT NIVO/PLACEBO - 065 PORT NIVO/PLACEBO 04/12/2020 APPOINTMENT RCT1 - 065 PORT NIVO/PLACEBO - 065 PORT NIVO/PLACEBO 03/15/2020 APPOINTMENT RCT1 - 605 PORT NIVO/PLACEBO - 605 PORT NIVO/PLACEBO 03/15/2020 APPOINTMENT RCT1 - 605 PORT NIVO/PLACEBO - 605 PORT NIVO/PLACEBO 03/15/2020 APPOINTMENT RCT1 - 605 PORT NIVO/PLACEBO - 605 PORT NIVO/PLACEBO 02/16/2020 APPOINTMENT RCT1 - 605 PORT NIVO/PLACEBO - STUDY 02/16/2020 APPOINTMENT RCT1 - 605 PORT NIVO/PLACEBO - STUDY 02/16/2020 APPOINTMENT RCT1 - 605 PORT NIVO/PLACEBO - STUDY 01/19/2020 APPOINTMENT RCT1 - 605 PD/RC /PEMBRO VS NIVO - 605 PD/RC/PEMBRO VS NIVO 01/19/2020 APPOINTMENT RCT1 - 605 PD/RC /PEMBRO VS NIVO - 605 PD/RC/PEMBRO VS NIVO 01/19/2020 APPOINTMENT RCT1 - 605 PD/RC /PEMBRO VS NIVO - 605 PD/RC/PEMBRO VS NIVO 12/22/2019 APPOINTMENT RCT1 - 605 PD/RC /NIVO/PLACEBO - 605 PD/RC/NIVO/PLACEBO 12/22/2019 APPOINTMENT RCT1 - 605 PD/RC /NIVO/PLACEBO - 605 PD/RC/NIVO/PLACEBO 12/22/2019 APPOINTMENT RCT1 - 605 PD/RC /NIVO/PLACEBO - 605 PD/RC/NIVO/PLACEBO 11/24/2019 APPOINTMENT RCT1 - 605 PD/RC /NIVO VS PLACEBO - STUDY PATIENT 11/24/2019 APPOINTMENT RCT1 - 605 PD/RC /NIVO VS PLACEBO - STUDY PATIENT 11/24/2019 APPOINTMENT RCT1 - 605 PD/RC /NIVO VS PLACEBO - STUDY PATIENT 11/24/2019 LAB_ORDER CA 125 panel 11/24/2019 LAB_ORDER CBC w/ auto diff 11/24/2019 LAB_ORDER CMP 11/24/2019 LAB_ORDER TSH panel 11/24/2019 LAB_ORDER Research Study D raw 12/18/2019 LAB_ORDER [address] chest/abdomen /pelvis w/ contrast 12/22/2019 LAB_ORDER CA 125 panel 12/22/2019 LAB_ORDER CBC w/ auto diff 12/22/2019 LAB_ORDER CMP 12/22/2019 LAB_ORDER Research Study D raw 12/22/2019 LAB_ORDER TSH panel 01/19/2020 LAB_ORDER CBC w/ auto diff 01/19/2020 LAB_ORDER CA 125 panel 01/19/2020 LAB_ORDER CMP 01/19/2020 LAB_ORDER Research Study D raw 01/19/2020 LAB_ORDER TSH panel 01/19/2020 LAB_ORDER Research Study D raw 02/16/2020 LAB_ORDER Research Study D raw 02/16/2020 LAB_ORDER CA 125 panel 02/16/2020 LAB_ORDER CBC w/ auto diff 02/16/2020 LAB_ORDER CMP 02/16/2020 LAB_ORDER TSH panel 03/11/[address] chest/abdomen /pelvis w/ contrast 03/15/2020 LAB_ORDER CBC w/ auto diff 03/15/2020 LAB_ORDER CMP 03/15/2020 LAB_ORDER CA 125 panel 03/15/2020 LAB_ORDER TSH panel 03/15/2020 LAB_ORDER Research Study D raw 03/15/2020 LAB_ORDER Basic Metabolic Panel 03/15/2020 LAB_ORDER Chest x-ray, PA and lateral 04/12/2020 LAB_ORDER CMP 04/12/2020 LAB_ORDER CA 125 panel 04/12/2020 LAB_ORDER CBC w/ auto diff 04/12/2020 LAB_ORDER TSH panel 04/12/2020 LAB_ORDER Research Study D raw 05/10/2020 LAB_ORDER CA 125 panel 05/10/2020 LAB_ORDER CBC w/ auto diff 05/10/2020 LAB_ORDER CMP 05/10/2020 LAB_ORDER TSH panel 05/10/2020 LAB_ORDER Research Study D raw 06/03/[address] chest/abdomen /pelvis w/ contrast 06/07/2020 LAB_ORDER CBC w/ auto diff 06/07/2020 LAB_ORDER TSH panel 06/07/2020 LAB_ORDER Research Study D raw 06/07/2020 LAB_ORDER CMP 06/07/2020 LAB_ORDER CA 125 panel 06/21/2020 LAB_ORDER Basic Metabolic Panel 07/05/2020 LAB_ORDER CA 125 panel 07/05/2020 LAB_ORDER TSH panel 07/05/2020 LAB_ORDER CBC w/ auto diff 07/05/2020 LAB_ORDER CMP 07/05/2020 LAB_ORDER Research Study D raw 07/12/2020 LAB_ORDER Basic Metabolic Panel 08/02/2020 LAB_ORDER Research Study D raw 08/02/2020 LAB_ORDER CBC w/ auto diff 08/02/2020 LAB_ORDER TSH panel 08/02/2020 LAB_ORDER CA 125 panel 08/02/2020 LAB_ORDER CMP 08/16/2020 LAB_ORDER Basic Metabolic Panel 08/26/[address] chest/abdomen /pelvis w/ contrast 08/30/2020 LAB_ORDER TSH panel 08/30/2020 LAB_ORDER CMP 08/30/2020 LAB_ORDER CA 125 panel 08/30/2020 LAB_ORDER CBC w/ auto diff 08/30/2020 LAB_ORDER Research Phospho rupa ([facility]) 08/30/2020 LAB_ORDER Research Magnesi um 08/30/2020 LAB_ORDER Research Retic 08/30/2020 LAB_ORDER Research Folate 08/30/2020 LAB_ORDER Research Study D raw 08/30/2020 LAB_ORDER Research Cholest yordan, total 08/30/2020 LAB_ORDER Research LDH 09/27/2020 LAB_ORDER Research TSH 09/27/2020 LAB_ORDER Research Cholest yordan, total 09/27/2020 LAB_ORDER Research Study D raw 09/27/2020 LAB_ORDER TSH panel 09/27/2020 LAB_ORDER Research CA125 09/27/2020 LAB_ORDER CMP 09/27/2020 LAB_ORDER CA 125 panel 09/27/2020 LAB_ORDER CBC w/ auto diff 09/27/2020 LAB_ORDER Research Phospho rupa ([facility]) 09/27/2020 LAB_ORDER Research LDH 09/27/2020 LAB_ORDER Research Retic 09/27/2020 LAB_ORDER Research Folate 09/27/2020 LAB_ORDER Research Magnesi um 09/27/2020 LAB_ORDER MRI breast w/ & w/o contrast 10/25/2020 LAB_ORDER Research Retic 10/25/2020 LAB_ORDER Research LDH 10/25/2020 LAB_ORDER Research Magnesi um 10/25/2020 LAB_ORDER Research Phospho rupa ([facility]) 10/25/2020 LAB_ORDER Research Study D raw 10/25/2020 LAB_ORDER CMP 10/25/2020 LAB_ORDER Research Cholest yordan, total 10/25/2020 LAB_ORDER CA 125 panel 10/25/2020 LAB_ORDER Research TSH 10/25/2020 LAB_ORDER Research Study D raw 10/25/2020 LAB_ORDER CBC w/ auto diff 10/25/2020 LAB_ORDER Research Folate 10/25/2020 LAB_ORDER DEXA scan 10/25/[address] LAB_[address] chest w/ IV c ontrast 11/19/2020 LAB_ORDER iSTAT creatinine panel 11/19/[address] chest/abdomen /pelvis w/ contrast 11/22/2020 LAB_ORDER Research Phospho rupa ([facility]) 11/22/2020 LAB_ORDER Research Cholest yordan, total 11/22/2020 LAB_ORDER Research LDH 11/22/2020 LAB_ORDER Research Study D raw 11/22/2020 LAB_ORDER CMP 11/22/2020 LAB_ORDER CA 125 panel 11/22/2020 LAB_ORDER Research TSH 11/22/2020 LAB_ORDER Research Magnesi um 11/22/2020 LAB_ORDER CBC w/ auto diff 11/22/2020 LAB_ORDER Research Retic 11/22/2020 LAB_ORDER Research Folate 02/11/2021 LAB_ORDER CBC w/ auto diff 02/11/2021 LAB_ORDER iSTAT creatinine panel 02/11/2021 LAB_ORDER CA 125 panel 02/11/2021 LAB_ORDER Research Study D raw 02/11/2021 LAB_ORDER CMP 02/22/2021 LAB_[address] chest/abdomen /pelvis w/ contrast 05/13/2021 LAB_[address] chest/abdomen /pelvis w/ contrast 05/23/2021 LAB_ORDER CBC w/ auto diff 05/23/2021 LAB_ORDER CMP 05/23/2021 LAB_ORDER CA 125 panel 05/23/2021 LAB_ORDER Research Study D raw 08/08/2021 LAB_[address] chest/abdomen /pelvis w/ contrast 08/11/2021 LAB_ORDER Research Study D raw 09/29/2021 [...] Visit LAB 15 MIN Encounters Date Name 11/24/2019 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 mutation positive (finding) 11/24/2019 Candidal vulvovagini tis (disorder) 11/24/2019 Cardiomegaly 11/24/2019 Congestive heart emilie lure (disorder) 11/24/2019 History of fallopian tube cancer 11/24/2019 Hypertensive disorde r, systemic arterial (disorder) 11/24/2019 Hyponatremia 11/24/2019 Hyponatremia (disord er) 11/24/2019 Hypoxia 11/24/2019 Left ventricular hyp ertrophy 11/24/2019 Obesity (disorder) 11/24/2019 Osteopenia 11/24/2019 Other long-term curr ent use of drug therapy 11/24/2019 Personal history of fallopian tube cancer 11/24/2019 Postmenopausal state (finding) 11/24/2019 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) 11/24/2019 Secondary peripheral neuropathy (disorder) 11/24/2019 Secondary polycythem ia 11/24/2019 Tobacco dependence s yndrome (disorder) 11/24/2019 Umbilical hernia Immunizations Date Name Route Dose Instructions Refusal Reason Stat us 06/23/2020 Flu vaccine - Adult Completed Flu vaccine - Adult Completed Covid-19 vaccine (Pfizer) Completed Covid-19 vaccine (Pfizer) Completed Covid-19 vaccine (Pfizer) Completed Flu vaccine - Adult Completed Covid-19 vaccine (Pfizer) Completed Flu vaccine - Adult Not Given due to Parent Refusal Not Administered Diagnostic Results Date Type Test Units Lower Limit Upper Limit Result Flag Comments Status Ordered By Specimen Source Lab Address 11/23 TSH panel TSH uIU/ml 0.32 5.0 1.83 Test performed at [facility] on a [employer] 2000 Immunoass ay Analyzer that uses an immunoenz ymometric sandwich assay for analysis. Patient testing should not be performed using multiple methodolo gies due to analytica l variation seen between test methodolo gies. FINAL Annamarie Peters [facility], [address] [place] [phone] Phone: () - 11/23 CA 125 panel CA 125 UNITS/ ML 0.0 34.0 7.50 Test performed at [facility] on a [employer] Immunoass ay Analyzer that uses an immunoenz ymometric sandwich assay for analysis. Patient testing should not be performed using multiple methodolo gies due to analytica l variation seen between test methodolo gies. [facility] [address] [place] [address] [phone] Phone: () - 11/23 CBC w/ auto diff WBC K/uL 3.0 8.9 8.3 FINAL Annamarie Mcginnis bert [address] 200 [facility] [phone] Phone: () - 11/23 CBC w/ auto diff HGB g/dL 11.3 15.2 12.4 FINAL Annamarie Mcginnis bert [address] 200 [facility] [phone] Phone: () - 11/23 CBC w/ auto diff PLT K/uL 113.0 364.0 187 FINAL Annamarie noel Oncology - [place] [facility], [address] 200 [facility] [place] [phone] 0 Phone: () - 11/23 CBC w/ auto diff Avtar # (ANC) K/uL 1.6 6.6 4.4 FINAL Annamarie Mcginnisot a Oncology - [place], [address] 200 [facility] [place] [phone] 0 Phone: () - 11/23 CBC w/ auto diff Avtar % % 43.0 74.0 53.4 FINAL Annamarie Peters a Oncology - [facility], [address] [place] [address] 200 [facility] [place] [phone] 0 Phone: () - 11/23 CBC w/ auto diff IG % % 0.0 0.5 0.8 High FINAL Annamarie Peters a Oncology - [facility], [address] [place] [address] 200 [facility] [place] [phone] 0 Phone: () - 11/23 CBC w/ auto diff IG # K/uL 0.0 0.03 0.07 High FINAL Annamarie Peters a Oncology - [facility], [address] [place] [address] 200 [facility] [place] [phone] 0 Phone: () - 11/23 CBC w/ auto diff LY % % 14.0 41.0 31.7 FINAL Annamarie Mcginnisot a Oncology - [facility], [address] [place] [address] 200 [facility] [place] [phone] 0 Phone: () - 11/23 CBC w/ auto diff MO % % 6.0 15.0 8.5 FINAL Annamarie Mcginnisot a Oncology - [place], [address] [place] [address] 200 [facility] [place] [phone] 0 Phone: () - 11/23 CBC w/ auto diff EO % % 0.0 7.0 4.8 FINAL Annamarie Mcginnisot a Oncology - [place], [address] [place] [address] 200 [facility] [phone] Phone: () - 11/23 CBC w/ auto diff BA % % 0.0 2.0 0.8 FINAL Annamarie Mcginnisot a Oncology - [place], [address] [place] [phone] 0 Phone: () - 11/23 CBC w/ auto diff LY # K/uL 0.4 3.6 2.6 FINAL Annamarie Mcginnisot a Oncology - [place], [address] [place] [phone] 0 Phone: () - 11/23 CBC w/ auto diff MO # K/uL 0.2 1.3 0.7 FINAL Annamarie Mcginnisot a Oncology - [facility], [facility] [address] [place] [phone] 0 Phone: () - 11/23 CBC w/ auto diff EO # K/uL 0.0 0.6 0.4 FINAL Annamarie Mcginnisot a Oncology - [place], [facility] [address] [place] [phone] 0 Phone: () - 11/23 CBC w/ auto diff BA # K/uL 0.0 0.2 0.1 FINAL Annamarie Mcginnisot a Oncology - [place], [address] [place] [address] 200 [place] [phone] 0 Phone: () - 11/23 CBC w/ auto diff NRBC % #/100W BC 0.0 0.2 0.0 FINAL Annamarie Mcginnisot a Oncology - [place], [facility] [address] [place] [phone] 0 Phone: () - 11/23 CBC w/ auto diff RBC M/uL 3.9 5.1 3.61 Low FINAL Annamarie Mcginnisot a Oncology - [place], [facility] [address] [place] [phone] 0 Phone: () - 11/23 CBC w/ auto diff HCT % 35.0 48.0 36.4 FINAL Annamarie Mcginnisot a Oncology - [place], [address] [place] [phone] 0 Phone: () - 11/23 CBC w/ auto diff MCV fL 80.0 104.0 100.8 FINAL Annamarie Mcginnisot a Oncology - [place], [address] [place] [address] [address] [place] [phone] 0 Phone: () - 11/23 CBC w/ auto diff MCH pg 26.0 35.0 34.3 FINAL Annamarie Mcginnisot bert Oncology - [place], [address] [place] [address] [address] [place] [phone] 0 Phone: () - 11/23 CBC w/ auto diff MCHC g/dL 30.0 35.0 34.1 FINAL Annamarie Mcginnisot a Oncology - [place], [address] [place] [address] [address] [place] [phone] 0 Phone: () - 11/23 CBC w/ auto diff MPV fL 9.5 13.4 9.3 Low FINAL Annamarie Mcginnisot a Oncology - [place], [address] [place] [address] [address] [place] [phone] 0 Phone: () - 11/23 CBC w/ auto diff RDW % 11.4 16.1 12.50 FINAL Annamarie Mcginnisot a Oncology - [place] [facility], [address] [place] [address] [address] [place] [phone] 0 Phone: () - 11/23 CMP Sodiu m mmol/L 135.0 145.0 132 Low FINAL Annamarie Smithg ast 11/23 CMP Potas sium mmol/L 3.5 5.0 4.5 FINAL Annamarierenny Smithg ast 11/23 CMP Chlor sathish mmol/L 98.0 110.0 96 Low FINAL Annamarie Smithg ast 11/23 CMP CO2 mmol/L 21.0 31.0 25 FINAL Annamarierenny Smithg ast 11/23 CMP Anion gap, mmol/ L 5.0 18.0 11.0% FINAL Annamarierenny Smithg ast 11/23 CMP Gluco se mg/dL 65.0 100.0 90 FINAL Annamarierenny Smithg ast 11/23 CMP Calci um mg/dL 8.5 10.5 9.0 FINAL Annamarierenny Smithg ast 11/23 CMP BUN mg/dL 8.0 25.0 15 FINAL Annamarierenny Bailonderg ast 11/23 CMP Creat inine mg/dL 0.57 1.11 0.87 FINAL Annamarie Smithg ast 11/23 CMP BUN/C reati nine ratio 10.0 20.0 17.0% FINAL Annamarie Prenderg ast 11/23 CMP GFR Afric an Ameri can, estim ated ml/min /1.73m 2 >60 FINAL Annamarie Bailonderg ast 11/23 CMP GFR non-A frica n Ameri can, estim ated ml/min /1.73m 2 >60 FINAL Annamarie Prenderg ast 11/23 CMP Album in g/dL 3.2 4.6 4.1 FINAL Annamarie Bailonderg ast 11/23 CMP Total prote in g/dL 6.0 8.0 7.1 FINAL Annamarie Bailonderg ast 11/23 CMP Globu samreen g/dL 2.0 3.7 3.0 FINAL Annamarie Bailonderg ast 11/23 CMP A/G ratio 1.0 2.0 1.4% FINAL Annamarie Bailonderg ast 11/23 CMP Bilir ubin, total mg/dL 0.2 1.2 0.4 FINAL Annamarie Smithg ast 11/23 CMP Alkal ine phosp hatas e IU/L 50.0 136.0 64 FINAL Annamarie Bailonderg ast 11/23 CMP ALT/S GPT IU/L 8.0 45.0 23 FINAL Annamarie Smithg ast 11/23 CMP AST/S GOT IU/L 2.0 40.0 37 Test Performed by:[employer] [facility] [address] - [facility] [place] [address]Pzsn e : FINAL Annamarie Smith ast 11/23 [facility] other lab See final finisher forging dies d 11/23 [facility] [place] lab See final finisher forging dies d 12/21 CBC w/ auto diff WBC K/uL 3.0 8.9 8.3 FINAL Tamannamar Mcginnisot a Oncology - [facility], [address] [place] [address] [address] [place] [phone] 0 Phone: () - 12/21 CBC w/ auto diff HGB g/dL 11.3 15.2 12.1 FINAL Tamanna noel Oncology - [place], [address] [place] [address] [address] [place] [phone] 0 Phone: () - 12/21 CBC w/ auto diff PLT K/uL 113.0 364.0 160 FINAL Tamanna noel Oncology - [place], [address] [place] [address] [address] [place] [phone] 0 Phone: () - 12/21 CBC w/ auto diff Avtar # (ANC) K/uL 1.6 6.6 4.4 FINAL Tamanna noel Oncology - [place], [address] [place] [id number] 0 Phone: () - 12/21 CBC w/ auto diff Avtar % % 43.0 74.0 52.5 FINAL Tamanna noel Oncology - [place], [address] [place] [id number] 0 Phone: () - 12/21 CBC w/ auto diff IG % % 0.0 0.5 0.6 High FINAL Tamanna noel Oncology - [place], [address] [place] [id number] 0 Phone: () - 12/21 CBC w/ auto diff IG # K/uL 0.0 0.03 0.05 High FINAL Tamanna noel Oncology - [place], [address] [place] [phone] 0 Phone: () - 12/21 CBC w/ auto diff LY % % 14.0 41.0 32.3 FINAL Tamanna noel Oncology - [place], [address] [place] [address] [address] [place] [phone] 0 Phone: () - 12/21 CBC w/ auto diff MO % % 6.0 15.0 7.9 FINAL Tamanna noel Oncology - [place], [address] [place] [id number] 0 Phone: () - 12/21 CBC w/ auto diff EO % % 0.0 7.0 5.9 FINAL Tamanna noel Oncology - [place], [address] [place] [phone] 0 Phone: () - 12/21 CBC w/ auto diff BA % % 0.0 2.0 0.8 FINAL Tamanna noel Oncology - [place], [address] [place] [phone] 0 Phone: () - 12/21 CBC w/ auto diff LY # K/uL 0.4 3.6 2.7 FINAL Tamanna noel Oncology - [place], [address] [place] [phone] 0 Phone: () - 12/21 CBC w/ auto diff MO # K/uL 0.2 1.3 0.7 FINAL Tamanna noel Oncology - [place], [address] [place] [phone] 0 Phone: () - 12/21 CBC w/ auto diff EO # K/uL 0.0 0.6 0.5 FINAL Tamanna noel Oncology - [place], [address] [place] [phone] 0 Phone: () - 12/21 CBC w/ auto diff BA # K/uL 0.0 0.2 0.1 FINAL Tamanna noel Oncology - [place], [address] [place] [phone] 0 Phone: () - 12/21 CBC w/ auto diff NRBC % #/100W BC 0.0 0.2 0.0 FINAL Tamanna noel Oncology - [place], [address] [place] [id number] 0 Phone: () - 12/21 CBC w/ auto diff RBC M/uL 3.9 5.1 3.49 Low FINAL Tamanna noel Oncology - [place], [address] [place] [id number] 0 Phone: () - 12/21 CBC w/ auto diff HCT % 35.0 48.0 35.2 FINAL Tamanna noel Oncology - [place], [address] [place] [id number] 0 Phone: () - 12/21 CBC w/ auto diff MCV fL 80.0 104.0 100.9 FINAL Tamanna noel Oncology [facility], [address] 200 [facility] [phone] 0 Phone: () - 12/21 CBC w/ auto diff MCH pg 26.0 35.0 34.7 FINAL Tamanna noel Oncology [facility], [address] 200 [facility] [phone] 0 Phone: () - 12/21 CBC w/ auto diff MCHC g/dL 30.0 35.0 34.4 FINAL Tamanna noel Oncology [facility], [address] [place] [address] 200 [facility] [phone] 0 Phone: () - 12/21 CBC w/ auto diff MPV fL 9.5 13.4 9.5 FINAL Tamanna noel [facility], [address] [place] [address] 200 [facility] [phone] 0 Phone: () - 12/21 CBC w/ auto diff RDW % 11.4 16.1 12.80 FINAL Tamanna noel [facility], [address] [place] [address] 200 [facility] [phone] 0 Phone: () - 12/21 TSH panel TSH uIU/ml 0.32 5.0 1.49 Test performed at [facility] on a [employer] 2000 Immuno[employer] ay Analyzer that uses an immunoenz ymometric sandwich assay for analysis. Patient testing should not be performed using multiple methodolo gies due to analytica l variation seen between test methodolo gies. FINAL Tamanna noel [facility], [address] [facility] 100 [facility] [phone] 0 Phone: () - 12/21 CA 125 panel CA 125 UNITS/ ML 0.0 34.0 7.70 Test performed at [facility] on a [employer] 2000 Immun[employer] ay Analyzer that uses an immunoenz ymometric sandwich assay for analysis. Patient testing should not be performed using multiple methodolo gies due to analytica l variation seen between test methodolo gies. FINAL Tamanna noel [facility] 345 [facility] [address] [facility] [phone] 0 Phone: () - 12/21 CMP Sodiu m mmol/L 135.0 145.0 133 Low FINAL Tamanna Rolon 12/21 CMP Potas sium mmol/L 3.5 5.0 4.2 FINAL Tamannanithin Rolon 12/21 CMP Chlor sathish mmol/L 98.0 110.0 98 FINAL Tamannanithin Rolon 12/21 CMP CO2 mmol/L 21.0 31.0 27 FINAL Tamannanithin Rolon 12/21 CMP Anion gap, mmol/ L 5.0 18.0 8.0% FINAL Tamanna Rolon 12/21 CMP Gluco se mg/dL 65.0 100.0 92 FINAL Tamannanithin Rolon 12/21 CMP Calci um mg/dL 8.5 10.5 9.3 FINAL Tamanna Kenny 12/21 CMP BUN mg/dL 8.0 25.0 14 FINAL Tamannanithin Rolon 12/21 CMP Creat inine mg/dL 0.57 1.11 1.02 FINAL Tamannanithin Rolon 12/21 CMP BUN/C reati nine ratio 10.0 20.0 14.0% FINAL Tamanna Rolon 12/21 CMP GFR Afric an Ameri can, estim ated ml/min /1.73m 2 >60 FINAL Tamanna Kenny 12/21 CMP GFR non-A frica n Ameri can, estim ated ml/min /1.73m 2 54 Low FINAL Tamanna Rolon 12/21 CMP Album in g/dL 3.2 4.6 4.1 FINAL Tamannanithin Rolon 12/21 CMP Total prote in g/dL 6.0 8.0 7.0 FINAL Tamanna Kenny 12/21 CMP Globu samreen g/dL 2.0 3.7 2.9 FINAL Tamannanithin Rolon 12/21 CMP A/G ratio 1.0 2.0 1.4% FINAL Tamannanithin Rolon 12/21 CMP Bilir ubin, total mg/dL 0.2 1.2 0.5 FINAL Tamanna Gonzales 12/21 CMP Alkal ine phosp hatas e IU/L 50.0 136.0 75 FINAL Tamanna Rolon 12/21 CMP ALT/S GPT IU/L 8.0 45.0 29 FINAL Tamanna Rolon 12/21 CMP AST/S GOT IU/L 2.0 40.0 40 Test Performed by:[facility], [address] - [facility] [place] [address]Xcup e : FINAL Tamanna Rolon 12/21 Misc other lab See final finisher forging dies d 01/18 CMP Sodiu m mmol/L 135.0 145.0 135 FINAL Tamanna Rolon 01/18 CMP Potas sium mmol/L 3.5 5.0 4.2 FINAL Tamanna Rolon 01/18 CMP Chlor sathish mmol/L 98.0 110.0 99 FINAL Tamanna Rolon 01/18 CMP CO2 mmol/L 21.0 31.0 28 FINAL Tamanna Rolon 01/18 CMP Anion gap, mmol/ L 5.0 18.0 8.0% FINAL Tamanna Rolon 01/18 CMP Gluco se mg/dL 65.0 100.0 86 FINAL Tamanna Rolon 01/18 CMP Calci um mg/dL 8.5 10.5 9.6 FINAL Tamanna Rolon 01/18 CMP BUN mg/dL 8.0 25.0 17 FINAL Tamanna Rolon 01/18 CMP Creat inine mg/dL 0.57 1.11 0.97 FINAL Tamanna Rolon 01/18 CMP BUN/C reati nine ratio 10.0 20.0 18.0% FINAL Tamanna Rolon 01/18 CMP GFR Afric an Ameri can, estim ated ml/min /1.73m 2 >60 FINAL Tamanna Rolon 01/18 CMP GFR non-A frica n Ameri can, estim ated ml/min /1.73m 2 57 Low FINAL Tamanna Rolon 01/18 CMP Album in g/dL 3.2 4.6 4.2 FINAL Tamanna Rolon 01/18 CMP Total prote in g/dL 6.0 8.0 7.0 FINAL Tamanna Rolon 01/18 CMP Globu samreen g/dL 2.0 3.7 2.8 FINAL Tamanna Rolon 01/18 CMP A/G ratio 1.0 2.0 1.5% FINAL Tamanna Rolon 01/18 CMP Bilir ubin, total mg/dL 0.2 1.2 0.4 FINAL Tamanna Rolon 01/18 CMP Alkal ine phosp hatas e IU/L 50.0 136.0 70 FINAL Tamanna Rolon 01/18 CMP ALT/S GPT IU/L 8.0 45.0 19 FINAL Tamanna Rolon 01/18 CMP AST/S GOT IU/L 2.0 40.0 34 Test Performed by:[facility] [address] - [facility] [address]Vloi e [phone] FINAL Tamanna Rolon 01/18 CBC w/ auto diff WBC K/uL 3.0 8.9 8.1 FINAL Tamanna noel Oncology - [facility], [address] [place] [address] [address] [place] [id number] [phone] Phone: () - 01/18 CBC w/ auto diff HGB g/dL 11.3 15.2 11.7 FINAL Tamanna noel Oncology - [facility], [address] [place] [address] [address] [place] [id number] 0 Phone: () - 01/18 CBC w/ auto diff PLT K/uL 113.0 364.0 156 FINAL Tamanna noel Oncology - [facility], [address] [place] [id number] 0 Phone: () - 01/18 CBC w/ auto diff Avtar # (ANC) K/uL 1.6 6.6 4.3 FINAL Tamanna noel [facility], [address] [place] [address] [address] [place] [id number] 0 Phone: () - 01/18 CBC w/ auto diff Avtar % % 43.0 74.0 52.3 FINAL Tamanna noel Oncology [facility], [address] [place] [address] [address] [place] [id number] 0 Phone: () - 01/18 CBC w/ auto diff IG % % 0.0 0.5 0.5 FINAL Tamanna noel Oncology - [place], [address] 200 [facility] [id number] 0 Phone: () - 01/18 CBC w/ auto diff IG # K/uL 0.0 0.03 0.04 High FINAL Tamanna noel Oncology - [place], [address] 200 [facility] [id number] 0 Phone: () - 01/18 CBC w/ auto diff LY % % 14.0 41.0 31.7 FINAL Tamanna noel Oncology - [place], [address] [place] [address] 200 [facility] [id number] 0 Phone: () - 01/18 CBC w/ auto diff MO % % 6.0 15.0 10.4 FINAL Tamanna noel Oncology - [place], [address] [place] [address] 200 [facility] [id number] 0 Phone: () - 01/18 CBC w/ auto diff EO % % 0.0 7.0 4.5 FINAL Tamanna noel Oncology - [place], [address] [place] [address] 200 [facility] [id number] 0 Phone: () - 01/18 CBC w/ auto diff BA % % 0.0 2.0 0.6 FINAL Tamanna noel Oncology - [place], [address] [place] [address] 200 [facility] [id number] 0 Phone: () - 01/18 CBC w/ auto diff LY # K/uL 0.4 3.6 2.6 FINAL Tamanna noel Oncology - [place], [address] [place] [address] 200 [facility] [place] [phone] 0 Phone: () - 01/18 CBC w/ auto diff MO # K/uL 0.2 1.3 0.9 FINAL Tamanna noel Oncology - [place], [address] 200 [facility] [id number] 0 Phone: () - 01/18 CBC w/ auto diff EO # K/uL 0.0 0.6 0.4 FINAL Tamanna noel Oncology - [place], [address] [place] [id number] 0 Phone: () - 01/18 CBC w/ auto diff BA # K/uL 0.0 0.2 0.1 FINAL Tamanna noel Oncology - [place], [address] [place] [id number] 0 Phone: () - 01/18 CBC w/ auto diff NRBC % #/100W BC 0.0 0.2 0.0 FINAL Tamanna noel Oncology - [place], [address] [place] [id number] 0 Phone: () - 01/18 CBC w/ auto diff RBC M/uL 3.9 5.1 3.36 Low FINAL Tamanna noel Oncology - [place], [address] [place] [id number] 0 Phone: () - 01/18 CBC w/ auto diff HCT % 35.0 48.0 34.2 Low FINAL Tamanna noel Oncology - [place], [address] [place] [id number] 0 Phone: () - 01/18 CBC w/ auto diff MCV fL 80.0 104.0 101.8 FINAL Tamanna noel Oncology - [place], [address] [place] [id number] 0 Phone: () - 01/18 CBC w/ auto diff MCH pg 26.0 35.0 34.8 FINAL Tamanna noel Oncology - [place], [address] [place] [id number] 0 Phone: () - 01/18 CBC w/ auto diff MCHC g/dL 30.0 35.0 34.2 FINAL Tamanna noel Oncology - [place], [address] [place] [id number] 0 Phone: () - 01/18 CBC w/ auto diff MPV fL 9.5 13.4 9.7 FINAL [facility], [address] [place] [address] [address] [place] [id number] 0 Phone: () - 01/18 CBC w/ auto diff RDW % 11.4 16.1 13.20 FINAL Tamanna noel [facility], [address] [place] [id number] 0 Phone: () - 01/18 TSH panel TSH uIU/ml 0.32 5.0 1.55 Test performed at [facility] on a [employer] 2000 Immunoass ay Analyzer that uses an immunoenz ymometric sandwich assay for analysis. Patient testing should not be performed using multiple methodolo gies due to analytica l variation seen between test methodolo gies. FINAL Tamanna noel [facility], [address] [place] [address] [id number] 0 Phone: () - 01/18 CA 125 panel CA 125 UNITS/ ML 0.0 34.0 9.40 Test performed at [facility] on a [employer] Immunoass ay Analyzer that uses an immunoenz ymometric sandwich assay for analysis. Patient testing should not be performed using multiple methodolo gies due to analytica l variation seen between test methodolo gies. FINAL Tamanna noel [facility], [address] [place] [address] [id number] 0 Phone: () - 01/18 [facility] [place] lab See final finisher forging dies d 02/15 CBC w/ auto diff WBC K/uL 3.0 8.9 9.3 High FINAL Annamarie Mcginnis bert Oncology - [place] [facility], [address] [place] [id number] 0 Phone: () - 02/15 CBC w/ auto diff HGB g/dL 11.3 15.2 11.8 FINAL Annamarie Mcginnis bert Oncology - [place] [facility], [address] [place] [id number] 0 Phone: () - 02/15 CBC w/ auto diff PLT K/uL 113.0 364.0 165 FINAL Annamarie rivero [facility], [address] [place] [address] [address] [place] [id number] 0 Phone: () - 02/15 CBC w/ auto diff Avtar # (ANC) K/uL 1.6 6.6 5.3 FINAL Annamarie Mcginnisot a Oncology - [place] [facility], [address] 200 [facility] [place] [id number] 0 Phone: () - 02/15 CBC w/ auto diff Avtar % % 43.0 74.0 57.3 FINAL Annamarie Mcginnisot a Oncology - [place] [facility], [address] [place] [address] 200 [facility] [place] [id number] 0 Phone: () - 02/15 CBC w/ auto diff IG % % 0.0 0.5 0.6 High FINAL Annamarierenny Mcginnisot a Oncology - [place] [facility], [address] 200 [facility] [place] [id number] 0 Phone: () - 02/15 CBC w/ auto diff IG # K/uL 0.0 0.03 0.06 High FINAL Annamarie Mcginnisot a Oncology - [place] [facility], [address] 200 [facility] [place] [id number] 0 Phone: () - 02/15 CBC w/ auto diff LY % % 14.0 41.0 27.4 FINAL Annamarie Mcginnisot a Oncology - [place] [facility], [address] 200 [facility] [place] [id number] 0 Phone: () - 02/15 CBC w/ auto diff MO % % 6.0 15.0 9.1 FINAL Annamarie Mcginnisot a Oncology - [place] [facility], [address] [place] [address] 200 [facility] [place] [id number] 0 Phone: () - 02/15 CBC w/ auto diff EO % % 0.0 7.0 5.0 FINAL Annamarierenny Mcginnisot a Oncology - [place] [facility], [address] [place] [address] 200 [place] [id number] 0 Phone: () - 02/15 CBC w/ auto diff BA % % 0.0 2.0 0.6 FINAL Annamarierenny Mcginnisot a Oncology - [place] [facility], [address] [place] [address] [address] [facility] [place] [id number] 0 Phone: () - 02/15 CBC w/ auto diff LY # K/uL 0.4 3.6 2.5 FINAL Annamarie Mcginnisot a Oncology - [place] [facility], [address] [place] [address] [address] [place] [id number] 0 Phone: () - 02/15 CBC w/ auto diff MO # K/uL 0.2 1.3 0.8 FINAL Annamarie Mcginnisot a Oncology - [place] [facility], [address] [place] [address] [address] [place] [id number] 0 Phone: () - 02/15 CBC w/ auto diff EO # K/uL 0.0 0.6 0.5 FINAL Annamarie Mcginnisot a Oncology - [place] [facility], [address] [place] [address] 200 [place] [id number] 0 Phone: () - 02/15 CBC w/ auto diff BA # K/uL 0.0 0.2 0.1 FINAL Annamarie Mcginnisot a Oncology - [place] [facility], [address] [place] [address] 200 [place] [id number] 0 Phone: () - 02/15 CBC w/ auto diff NRBC % #/100W BC 0.0 0.2 0.0 FINAL Annamarie Mcginnisot a Oncology - [place] [facility], [address] [place] [address] 200 [place] [id number] 0 Phone: () - 02/15 CBC w/ auto diff RBC M/uL 3.9 5.1 3.41 Low FINAL Annamarie Mcginnisot a Oncology - [place] [facility], [address] [place] [address] [address] [place] [id number] 0 Phone: () - 02/15 CBC w/ auto diff HCT % 35.0 48.0 35.1 FINAL Annamarie Mcginnisot a Oncology - [place] [facility], [address] [place] [address] [address] [place] [id number] 0 Phone: () - 02/15 CBC w/ auto diff MCV fL 80.0 104.0 102.9 FINAL Annamarie Mcginnisot a Oncology - [place] [facility], [address] [place] [address] [address] [place] [id number] 0 Phone: () - 02/15 CBC w/ auto diff MCH pg 26.0 35.0 34.6 FINAL Annamarie Mcginnisot a Oncology - [place], [address] [place] [address] [address] [place] [id number] 0 Phone: () - 02/15 CBC w/ auto diff MCHC g/dL 30.0 35.0 33.6 FINAL Annamarie Mcginnisot a Oncology - [place], [address] [place] [address] [address] [place] [id number] 0 Phone: () - 02/15 CBC w/ auto diff MPV fL 9.5 13.4 9.4 Low FINAL Annamarie Mcginnisot a Oncology - [place], [address] [place] [address] [address] [place] [id number] 0 Phone: () - 02/15 CBC w/ auto diff RDW % 11.4 16.1 13.20 FINAL Annamarie Mcginnisot bert Oncology - [place], [address] [place] [address] [address] [place] [id number] 0 Phone: () - 02/15 CMP Creat inine mg/dL 0.57 1.11 1.03 FINAL Annamarie Smith ast 02/15 CMP BUN/C reati nine ratio 10.0 20.0 15.0% FINAL Annamarie Smith ast 02/15 CMP GFR Afric an Ameri can, estim ated ml/min /1.73m 2 >60 FINAL Annamarie Smith ast 02/15 CMP GFR non-A frica n Ameri can, estim ated ml/min /1.73m 2 53 Low FINAL Annmaarie Smithg ast 02/15 CMP Album in g/dL 3.2 4.6 4.2 FINAL Annamarie Smith ast 02/15 CMP Total prote in g/dL 6.0 8.0 7.2 FINAL Annamarie Smith ast 02/15 CMP Globu samreen g/dL 2.0 3.7 3.0 FINAL Annamarie Smith ast 02/15 CMP A/G ratio 1.0 2.0 1.4% FINAL Annamarie Smith ast 02/15 CMP Bilir ubin, total mg/dL 0.2 1.2 0.4 FINAL Annamarie Smithg ast 02/15 CMP Alkal ine phosp hatas e IU/L 50.0 136.0 70 FINAL Annamarie Smithg ast 02/15 CMP ALT/S GPT IU/L 8.0 45.0 17 FINAL Annamarie Bailonderg ast 02/15 CMP AST/S GOT IU/L 2.0 40.0 31 Test Performed by:[facility] [address] - [facility] [place] [place] [address]Opqz e : FINAL Annamarie Smithg ast 02/15 CMP Sodiu m mmol/L 135.0 145.0 134 Low FINAL Annamarie Bailonderg ast 02/15 CMP Potas sium mmol/L 3.5 5.0 4.5 FINAL Annamarie Bailonderg ast 02/15 CMP Chlor sathish mmol/L 98.0 110.0 99 FINAL Annamarie Bailonderg ast 02/15 CMP CO2 mmol/L 21.0 31.0 25 FINAL Annamarie Smithg ast 02/15 CMP Anion gap, mmol/ L 5.0 18.0 10.0% FINAL Annamarie Bailonderg ast 02/15 CMP Gluco se mg/dL 65.0 100.0 95 FINAL Annamarie Bailonderg ast 02/15 CMP Calci um mg/dL 8.5 10.5 9.3 FINAL Annamarie Bailonderg ast 02/15 CMP BUN mg/dL 8.0 25.0 15 FINAL Annamarie Smithg ast 02/15 TSH panel TSH uIU/mL 0.35 4.94 1.72 In Adults, TSH values between 5.00 and 10.00 uIU/ml do notnecess arily indicate the presence of Hypothyro idism.Cor relation with clinical findings such as presence of goiterand /or Thyropero xidase (TPO) Antibody may be helpful. Formore informati on please refer to KYLAH 2004; 291: 228-238.T est Performed by:[facility] [address] - [facility], [place] [address]Afrf e : FINAL Annamarie Smith ast 02/15 CA 125 panel CA 125 UNITS/ ML 0.0 34.0 8.40 Test performed at [facility] on a [employer] 2000 Immunoass ay Analyzer that uses an immunoenz ymometric sandwich assay for analysis. Patient testing should not be performed using multiple methodolo gies due to analytica l variation seen between test methodolo gies. FINAL Annamarie noel Oncology [facility], [address] [place] [address] [id number] [phone] Phone: () - 02/15 [facility] lab See final finisher forging dies d 03/15 TSH panel TSH uIU/ml 0.32 5.0 3.10 Test performed at [facility] on a [employer] 2000 Immunoass ay Analyzer that uses an immunoenz ymometric sandwich assay for analysis. Patient testing should not be performed using multiple methodolo gies due to analytica l variation seen between test methodolo gies. FINAL Annamarie noel [facility], [address] [place] [address] [id number] 0 Phone: () - 03/15 CBC w/ auto diff WBC K/uL 3.0 8.9 8.9 FINAL Annamarie nole [facility], [address] [place] [address] 200 [place] [id number] 0 Phone: () - 03/15 CBC w/ auto diff HGB g/dL 11.3 15.2 12.1 FINAL Annamarie noel [facility], [address] [place] [address] 200 [place] [id number] 0 Phone: () - 03/15 CBC w/ auto diff PLT K/uL 113.0 364.0 171 FINAL Annamarie noel [facility], [address] [place] [address] 200 [place] [id number] 0 Phone: () - 03/15 CBC w/ auto diff Avtar # (ANC) K/uL 1.6 6.6 5.2 FINAL Annamarie noel [facility], [address] [place] [address] 200 [place] [id number] 0 Phone: () - 03/15 CBC w/ auto diff Avtar % % 43.0 74.0 58.5 FINAL Annamarie noel [facility], [address] [place] [address] [address] [place] [id number] 0 Phone: () - 03/15 CBC w/ auto diff IG % % 0.0 0.5 0.7 High FINAL Annamarie noel Oncology - [place] [facility], [address] 200 [facility] [id number] 0 Phone: () - 03/15 CBC w/ auto diff IG # K/uL 0.0 0.03 0.06 High FINAL Annamarie Mcginnisot a Oncology - [place] [facility], [address] [place] [address] 200 [facility] [id number] 0 Phone: () - 03/15 CBC w/ auto diff LY % % 14.0 41.0 27.2 FINAL Annamarie Peters a Oncology - [place] [facility], [address] [place] [address] 200 [facility] [id number] 0 Phone: () - 03/15 CBC w/ auto diff MO % % 6.0 15.0 7.4 FINAL Annamarie Mcginnisot a Oncology - [place] [facility], [address] [place] [address] 200 [facility] [id number] 0 Phone: () - 03/15 CBC w/ auto diff EO % % 0.0 7.0 5.5 FINAL Annamarie Mcginnisot a Oncology - [place] [facility], [address] [place] [address] 200 [facility] [id number] 0 Phone: () - 03/15 CBC w/ auto diff BA % % 0.0 2.0 0.7 FINAL Annamarie Mcginnisot a Oncology - [place] [facility], [address] [place] [address] 200 [facility] [id number] 0 Phone: () - 03/15 CBC w/ auto diff LY # K/uL 0.4 3.6 2.4 FINAL Annamarie Mcginnisot a Oncology - [place] [facility], [address] [place] [address] 200 [facility] [id number] 0 Phone: () - 03/15 CBC w/ auto diff MO # K/uL 0.2 1.3 0.7 FINAL Annamarie Mcginnisot a Oncology - [place] [facility], [address] [place] [address] 200 [facility] [id number] 0 Phone: () - 03/15 CBC w/ auto diff EO # K/uL 0.0 0.6 0.5 FINAL Annamarie noel Oncology - [place] [facility], [facility] [address] 200 [place] [id number] 0 Phone: () - 03/15 CBC w/ auto diff BA # K/uL 0.0 0.2 0.1 FINAL Annamarie Mcginnisot bert Oncology - [place] [facility], [facility] [address] 200 [place] [id number] 0 Phone: () - 03/15 CBC w/ auto diff NRBC % #/100W BC 0.0 0.2 0.0 FINAL Annamarie Mcginnisot bert [facility], [address] [place] [address] 200 [place] [id number] 0 Phone: () - 03/15 CBC w/ auto diff RBC M/uL 3.9 5.1 3.41 Low FINAL Annamarie Mcginnisot bert [facility], [address] [place] [address] 200 [place] [id number] 0 Phone: () - 03/15 CBC w/ auto diff HCT % 35.0 48.0 35.5 FINAL Annamarie noel [facility], [address] [place] [address] 200 [place] [id number] 0 Phone: () - 03/15 CBC w/ auto diff MCV fL 80.0 104.0 104.1 High FINAL Annamarie Mcginnisot bert [facility], [address] [place] [address] 200 [place] [id number] 0 Phone: () - 03/15 CBC w/ auto diff MCH pg 26.0 35.0 35.5 High FINAL Annamarierenny Mcginnisot a [facility], [address] [place] [address] 200 [place] [id number] 0 Phone: () - 03/15 CBC w/ auto diff MCHC g/dL 30.0 35.0 34.1 FINAL Annamarierenny Mcginnisot a Oncology - [place] [facility], [facility] [address] 200 [place] [id number] 0 Phone: () - 03/15 CBC w/ auto diff MPV fL 9.5 13.4 9.6 FINAL Annamarie Mcginnisot bert Oncology - [facility], [address] [place] [address] [facility] [place] [id number] 0 Phone: () - 03/15 CBC w/ auto diff RDW % 11.4 16.1 13.00 FINAL Annamarie noel Oncology - [facility], [address] [place] [address] [facility] [place] [id number] 0 Phone: () - 03/15 CA 125 panel CA 125 UNITS/ ML 0.0 34.0 8.00 Test performed at [facility] on a [employer] 2000 Immun[employer] ay Analyzer that uses an immunoenz ymometric sandwich assay for analysis. Patient testing should not be performed using multiple methoddanelle soto due to analytica l variation seen between test methoddanelle soto. FINAL Annamarie noel Oncology [facility], [address] [facility] 100 [facility] [phone] 0 Phone: () - 03/15 CMP Sodiu m mmol/L 135.0 145.0 133 Low FINAL Annamarie Smithg ast 03/15 CMP Potas sium mmol/L 3.5 5.0 4.5 FINAL Annamarie Smithg ast 03/15 CMP Chlor sathish mmol/L 98.0 110.0 96 Low FINAL Annamarie Smithg ast 03/15 CMP CO2 mmol/L 21.0 31.0 29 FINAL Annamarie Smithg ast 03/15 CMP Anion gap, mmol/ L 5.0 18.0 8.0% FINAL Annamarei Smithg ast 03/15 CMP Gluco se mg/dL 65.0 100.0 95 FINAL Annamarie Smithg ast 03/15 CMP Calci um mg/dL 8.5 10.5 10.3 FINAL Annamarie Smithg ast 03/15 CMP BUN mg/dL 8.0 25.0 14 FINAL Annamarie Bailonderg ast 03/15 CMP Creat inine mg/dL 0.57 1.11 1.13 High FINAL Annamarie Smithg ast 03/15 CMP BUN/C reati nine ratio 10.0 20.0 12.0% FINAL Annamarie Bailonderg ast 03/15 CMP GFR Afric an Ameri can, estim ated ml/min /1.73m 2 58 Low FINAL Annamarie Zamorano ast 03/15 CMP GFR non-A frica n Bashir can, estim ated ml/min /1.73m 2 48 Low FINAL Annamarie Bailonderg ast 03/15 CMP Album in g/dL 3.2 4.6 4.3 FINAL Annamarie Smithg ast 03/15 CMP Total prote in g/dL 6.0 8.0 7.5 FINAL Annamarie Smithg ast 03/15 CMP Globu samreen g/dL 2.0 3.7 3.2 FINAL Annamarie Bailonderg ast 03/15 CMP A/G ratio 1.0 2.0 1.3% FINAL Annamarie Bailonderg ast 03/15 CMP Bilir ubin, total mg/dL 0.2 1.2 0.5 FINAL Annamarie Bailonderg ast 03/15 CMP Alkal ine phosp hatas e IU/L 50.0 136.0 69 FINAL Annamarie Bailonderg ast 03/15 CMP ALT/S GPT IU/L 8.0 45.0 18 FINAL Annamarie Bailonderg ast 03/15 CMP AST/S GOT IU/L 2.0 40.0 29 Test Performed by:[employer] [facility] [address] - [facility] [place] [place] [address]Zzve e : FINAL Annamarie Zamorano ast 03/15 [facility] other lab See final finisher forging dies d 03/15 [facility] other lab See final finisher forging dies d 03/24 [facility] other lab See final finisher forging dies d 04/12 CBC w/ auto diff MCH pg 26.0 35.0 35.0 FINAL Annamarie Zamorano ast [place] [facility] [facility], [address] [place] [id number] 0 Phone: () - 04/12 CBC w/ auto diff MCHC g/dL 30.0 35.0 33.1 FINAL Annamarie Zamorano ast [place] [facility] - [place], [address] [place] [id number] 0 Phone: () - 04/12 CBC w/ auto diff MPV fL 9.5 13.4 9.5 FINAL Annamarie Mcginnisot a Oncology - [place], [address] [place] [address] [address] [place] [id number] 0 Phone: () - 04/12 CBC w/ auto diff RDW % 11.4 16.1 12.90 FINAL Annamarie Mcginnisot a Oncology - [place], [address] [place] [address] [address] [place] [id number] 0 Phone: () - 04/12 CBC w/ auto diff WBC K/uL 3.0 8.9 8.9 FINAL Annamarie Mcginnisot a Oncology - [place] [facility], [address] [place] [address] [address] [place] [id number] 0 Phone: () - 04/12 CBC w/ auto diff HGB g/dL 11.3 15.2 11.8 FINAL Annamarie Mcginnisot a Oncology - [place] [facility], [address] [place] [address] [address] [place] [id number] 0 Phone: () - 04/12 CBC w/ auto diff PLT K/uL 113.0 364.0 162 FINAL Annamarie Mcginnisot a Oncology - [place] [facility], [address] [place] [address] [address] [place] [id number] 0 Phone: () - 04/12 CBC w/ auto diff Avtar # (ANC) K/uL 1.6 6.6 5.0 FINAL Annamarie Mcginnisot a Oncology - [place] [facility], [address] [place] [address] [address] [place] [id number] 0 Phone: () - 04/12 CBC w/ auto diff Avtar % % 43.0 74.0 56.1 FINAL Annamarie Mcginnisot a Oncology - [place] [facility], [address] [place] [address] [address] [place] [id number] 0 Phone: () - 04/12 CBC w/ auto diff IG % % 0.0 0.5 0.7 High FINAL Annamarie Mcginnisot a Oncology - [place] [facility], [address] [place] [address] [address] [place] [id number] 0 Phone: () - 04/12 CBC w/ auto diff IG # K/uL 0.0 0.03 0.06 High FINAL Annam[facility] - [place] [facility], [address] [place] [address] [address] [place] [id number] Phone: () - 04/12 CBC w/ auto diff LY % % 14.0 41.0 29.0 FINAL Annam[facility] no[facility] - [place] [facility], [address] [place] [address] [address] [place] [id number] Phone: () - 04/12 CBC w/ auto diff MO % % 6.0 15.0 7.8 FINAL Annamarie no[facility] - [place] [facility], [address] [place] [address] [address] [place] [phone] 0 Phone: () - 04/12 CBC w/ auto diff EO % % 0.0 7.0 5.6 FINAL Annamarie noel [facility] [place], [address] [place] [address] [address] [place] [id number] Phone: () - 04/12 CBC w/ auto diff BA % % 0.0 2.0 0.8 FINAL Annamarie noel [facility] [place], [address] [place] [address] [address] [place] [id number] 0 Phone: () - 04/12 CBC w/ auto diff LY # K/uL 0.4 3.6 2.6 FINAL Annamarie noel [facility] [place], [address] [place] [address] [address] [place] [id number] 0 Phone: () - 04/12 CBC w/ auto diff MO # K/uL 0.2 1.3 0.7 FINAL Annamarie noel [facility] [place], [address] [place] [address] [address] [place] [id number] 0 Phone: () - 04/12 CBC w/ auto diff EO # K/uL 0.0 0.6 0.5 FINAL Annamarie noel [facility] [place], [address] [place] [address] [address] [place] [id number] 0 Phone: () - 04/12 CBC w/ auto diff BA # K/uL 0.0 0.2 0.1 FINAL Annamarie noel [facility] [place], [address] [place] [id number] 0 Phone: () - 04/12 CBC w/ auto diff NRBC % #/100W BC 0.0 0.2 0.0 FINAL Annamarie noel [facility], [address] [place] [id number] 0 Phone: () - 04/12 CBC w/ auto diff RBC M/uL 3.9 5.1 3.37 Low FINAL Annamarie noel [facility], [address] [place] [address] [address] [place] [id number] 0 Phone: () - 04/12 CBC w/ auto diff HCT % 35.0 48.0 35.7 FINAL Annamarie noel [facility], [address] [place] [address] [address] [place] [id number] 0 Phone: () - 04/12 CBC w/ auto diff MCV fL 80.0 104.0 105.9 High FINAL Annamarie noel [facility], [address] [place] [address] 200 [place] [id number] 0 Phone: () - 04/12 CA 125 panel CA 125 UNITS/ ML 0.0 34.0 7.70 Test performed at [facility] on a [employer] 2000 Immunoass ay Analyzer that uses an immunoenz ymometric sandwich assay for analysis. Patient testing should not be performed using multiple methodolo gies due to analytica l variation seen between test methodolo gies. FINAL Annamarie noel [address] [id number] 0 Phone: () - 04/12 TSH panel TSH uIU/ml 0.32 5.0 1.71 Test performed at [facility] on a [employer] 2000 Immunoass ay Analyzer that uses an immunoenz ymometric sandwich assay for analysis. Patient testing should not be performed using multiple methodolo gies due to analytica l variation seen between test methodolo gies. FINAL Annamarie Mcginnis bert [address] [place] [address] [id number] [phone] Phone: () - 04/12 CMP Sodiu m mmol/L 135.0 145.0 132 Low FINAL [facility]ny [facility] 04/12 CMP Potas sium mmol/L 3.[address] [facility] ast 04/12 CMP Chlor sathish mmol/L 98.0 [address] [facility] ast 04/12 CMP CO2 mmol/L 21.[address] 31.[address] [facility] ast 04/12 CMP Anion gap, mmol/ L 5.0 18.0 8.0% FINAL [facility] ast 04/12 CMP Gluco se mg/dL 65.[address] 100.[address] [facility] ast 04/12 CMP Calci um mg/dL 8.5 [address] [facility] ast 04/12 CMP BUN mg/dL 8.[address] 25.[address] [facility] ast 04/12 CMP Creat inine mg/dL 0.[address] [facility] ast 04/12 CMP BUN/C reati nine ratio 10.0 20.0 12.0% FINAL [facility] ast 04/12 CMP GFR Afric an Ameri can, estim ated ml/min /1.73m [address] >[address] [facility] ast 04/12 CMP GFR non-A frica n Ameri can, estim ated ml/min /1.73m [address] [facility] ast 04/12 CMP Album in g/dL 3.2 [address] [facility] ast 04/12 CMP Total prote in g/dL 6.[address] [facility] ast 04/12 CMP Globu samreen g/dL 2.0 [address] [facility] ast 04/12 CMP A/G ratio 1.0 2.0 1.5% FINAL [facility] ast 04/12 CMP Bilir ubin, total mg/dL 0.2 [address] [facility] ast 04/12 CMP Alkal ine phosp hatas e IU/L 50.0 136.0 63 FINAL Annamarie Zamorano ast 04/12 CMP ALT/S GPT IU/L 8.0 45.0 16 FINAL Annamarie Zamorano ast 04/12 CMP AST/S GOT IU/L 2.0 40.0 30 Test Performed by:[employer] [address], [address] - [place] [id number] e : FINAL Annamarie Zamorano ast 04/12 [facility] other lab See final finisher forging dies d 04/12 Mis other lab See final finisher forging dies d 05/10 CA 125 panel CA 125 UNITS/ ML 0.0 34.0 9.80 Test performed at [facility] on a [employer] 2000 Immunoass ay Analyzer that uses an immunoenz ymometric sandwich assay for analysis. Patient testing should not be performed using multiple methodolo gies due to analytica l variation seen between test methodolo gies. FINAL Tamanna noel [address] [place] [address] [id number] 0 Phone: () - 05/10 TSH panel TSH uIU/ml 0.32 5.0 1.90 Test performed at [facility] on a [employer] 2000 Immunoass ay Analyzer that uses an immunoenz ymometric sandwich assay for analysis. Patient testing should not be performed using multiple methodolo gies due to analytica l variation seen between test methodolo gies. FINAL Tamanna noel [facility], [address] [place] [address] [place] [address] [id number] 0 Phone: () - 05/10 CBC w/ auto diff BA % % 0.0 2.0 0.5 FINAL Tamanna noel [facility], [address] [place] [address] [address] [facility] [id number] 0 Phone: () - 05/10 CBC w/ auto diff LY # K/uL 0.4 3.6 2.3 FINAL Tamanna noel [facility], [address] [place] [address] [address] [facility] [id number] 0 Phone: () - 05/10 CBC w/ auto diff MO # K/uL 0.2 1.3 0.8 FINAL Tamanna noel [facility], [address] [place] [address] 200 [place] [id number] 0 Phone: () - 05/10 CBC w/ auto diff EO # K/uL 0.0 0.6 0.5 FINAL Tamanna noel [facility] [place], [address] [place] [address] 200 [place] [id number] 0 Phone: () - 05/10 CBC w/ auto diff BA # K/uL 0.0 0.2 0.1 FINAL Tamanna noel [facility] [place], [address] [place] [address] 200 [place] [id number] 0 Phone: () - 05/10 CBC w/ auto diff NRBC % #/100W BC 0.0 0.2 0.0 FINAL Tamanna noel [facility] [place], [address] [place] [address] 200 [place] [id number] 0 Phone: () - 05/10 CBC w/ auto diff RBC M/uL 3.9 5.1 3.61 Low FINAL Tamanna noel [facility] [place], [address] [place] [address] 200 [place] [id number] 0 Phone: () - 05/10 CBC w/ auto diff HCT % 35.0 48.0 36.9 FINAL Tamanna noel [facility] [place], [address] [place] [address] 200 [place] [id number] 0 Phone: () - 05/10 CBC w/ auto diff MCV fL 80.0 104.0 102.2 FINAL Tamanna noel [facility] [place], [address] [place] [address] 200 [place] [id number] 0 Phone: () - 05/10 CBC w/ auto diff MCH pg 26.0 35.0 35.7 High FINAL Tamanna noel [facility] [place], [address] [place] [address] 200 [place] [id number] 0 Phone: () - 05/10 CBC w/ auto diff MCHC g/dL 30.0 35.0 35.0 FINAL Tamanna noel [facility] [place], [address] [place] [address] 200 [place] [id number] 0 Phone: () - 05/10 CBC w/ auto diff MPV fL 9.5 13.4 9.2 Low FINAL Tamanna noel [facility] [place], [address] 200 [place] [id number] 0 Phone: () - 05/10 CBC w/ auto diff RDW % 11.4 16.1 12.50 FINAL Tamanna noel [facility] [place], [address] 200 [place] [id number] 0 Phone: () - 05/10 CBC w/ auto diff WBC K/uL 3.0 8.9 10.3 High FINAL Tamanna noel [facility] [place], [address] [place] [address] 200 [place] [id number] 0 Phone: () - 05/10 CBC w/ auto diff HGB g/dL 11.3 15.2 12.9 FINAL Tamanna noel [facility] [place], [facility] [address] 200 [place] [id number] 0 Phone: () - 05/10 CBC w/ auto diff PLT K/uL 113.0 364.0 172 FINAL Tamanna noel [facility] [place], [address] [place] [address] 200 [place] [id number] 0 Phone: () - 05/10 CBC w/ auto diff Avtar # (ANC) K/uL 1.6 6.6 6.6 FINAL Tamanna noel [facility] [place], [address] 200 [place] [id number] 0 Phone: () - 05/10 CBC w/ auto diff Avtar % % 43.0 74.0 64.3 FINAL Tamanna noel [facility] [place], [address] [place] [id number] 0 Phone: () - 05/10 CBC w/ auto diff IG % % 0.0 0.5 0.7 High FINAL Tamanna noel [facility] [place], [address] [place] [id number] 0 Phone: () - 05/10 CBC w/ auto diff IG # K/uL 0.0 0.03 0.07 High FINAL Tamanna noel [facility] [place], [address] [place] [id number] 0 Phone: () - 05/10 CBC w/ auto diff LY % % 14.0 41.0 22.7 FINAL Tamanna noel [facility] [place], [address] [place] [id number] 0 Phone: () - 05/10 CBC w/ auto diff MO % % 6.0 15.0 7.4 FINAL Tamanna noel [facility] [place], [address] [place] [id number] 0 Phone: () - 05/10 CBC w/ auto diff EO % % 0.0 7.0 4.4 FINAL Tamanna noel [facility] [place], [address] [place] [id number] 0 Phone: () - 05/10 CMP Sodiu m mmol/L 135.0 145.0 132 Low FINAL Tamanna Rolon 05/10 CMP Potas sium mmol/L 3.5 5.0 4.4 FINAL Tamannanithin Rolon 05/10 CMP Chlor sathish mmol/L 98.0 110.0 95 Low FINAL Tamanna Rolon 05/10 CMP CO2 mmol/L 21.0 31.0 29 FINAL Tamanna Rolon 05/10 CMP Anion gap, mmol/ L 5.0 18.0 8.0% FINAL Tamanna Rolon 05/10 CMP Gluco se mg/dL 65.0 100.0 94 FINAL Tamanna Rolon 05/10 CMP Calci um mg/dL 8.5 10.5 9.8 FINAL Tamanna Rolon 05/10 CMP BUN mg/dL 8.0 25.0 12 FINAL Tamanna Rolon 05/10 CMP Creat inine mg/dL 0.57 1.11 1.02 FINAL Tamanna Rolon 05/10 CMP BUN/C reati nine ratio 10.0 20.0 12.0% FINAL Tamanna Rolon 05/10 CMP GFR Afric an Ameri can, estim ated ml/min /1.73m 2 >60 FINAL Tamanna Rolon 05/10 CMP GFR non-A frica n Ameri can, estim ated ml/min /1.73m 2 54 Low FINAL Tamannanithin Knoxny 05/10 CMP Album in g/dL 3.2 4.6 4.2 FINAL Tamannanithin [place] 05/10 CMP Total prote in g/dL 6.0 8.0 7.0 FINAL Tamannanithin [place]ny 05/10 CMP Globu samreen g/dL 2.0 3.7 2.8 FINAL Tamannanithin [place] 05/10 CMP A/G ratio 1.0 2.0 1.5% FINAL Tamannanithin [place] 05/10 CMP Bilir ubin, total mg/dL 0.2 1.2 0.4 FINAL Tamannanithin [place] 05/10 CMP Alkal ine phosp hatas e IU/L 50.0 136.0 66 FINAL Tamannanithin [place] 05/10 CMP ALT/S GPT IU/L 8.0 45.0 21 FINAL Tamannanithin [place] 05/10 CMP AST/S GOT IU/L 2.0 40.0 33 Test Performed by:[employer] [address], [address] - [place], [place] [address]Qhoy e [phone] FINAL Tamanna Rolon 05/10 [facility] other lab See final finisher forging dies d 05/10 [facility] other lab See final finisher forging dies d 05/25 [facility] other lab See final finisher forging dies d 06/07 CMP Sodiu m mmol/L 135.0 145.0 130 Low FINAL Annamarie Smithg ast 06/07 CMP Potas sium mmol/L 3.5 5.0 4.4 FINAL Annamarie [facility]ail[facility] ast 06/07 CMP Chlor sathish mmol/L 98.0 110.0 91 Low FINAL Annamarie Smithg ast 06/07 CMP CO2 mmol/L 21.0 31.0 30 FINAL Annamarie Smithg ast 06/07 CMP Anion gap, mmol/ L 5.0 18.0 9.0% FINAL Annamarie Smithg ast 06/07 CMP Gluco se mg/dL 65.0 100.0 87 FINAL Annamarie Smith ast 06/07 CMP Calci um mg/dL 8.5 10.5 10.1 FINAL Annamarie Smith ast 06/07 CMP BUN mg/dL 8.0 25.0 12 FINAL Annamarie Smith ast 06/07 CMP Creat inine mg/dL 0.57 1.11 1.12 High FINAL Annamarie Smith ast 06/07 CMP BUN/C reati nine ratio 10.0 20.0 11.0% FINAL Annamarie Smith ast 06/07 CMP GFR Afric an Ameri can, estim ated ml/min /1.73m 2 58 Low FINAL Annamarie Smith ast 06/07 CMP GFR non-A frica n Ameri can, estim ated ml/min /1.73m 2 48 Low FINAL [facility] 06/07 CMP Album in g/dL 3.2 4.6 4.2 FINAL Annamarie Smith ast 06/07 CMP Total prote in g/dL 6.0 8.0 7.3 FINAL Annamarie [facility] 06/07 CMP Globu samreen g/dL 2.0 3.7 3.1 FINAL Annamarie Smith ast 06/07 CMP A/G ratio 1.0 2.0 1.4% FINAL Annamarie [facility] 06/07 CMP Bilir ubin, total mg/dL 0.2 1.2 0.5 FINAL [facility]namarierenny [facility] 06/07 CMP Alkal ine phosp hatas e IU/L 50.0 136.0 63 FINAL [facility]arierenny [facility] 06/07 CMP ALT/S GPT IU/L 8.0 45.0 24 FINAL Annamarierenny Smith ast 06/07 CMP AST/S GOT IU/L 2.0 40.0 44 High Test Performed by:[employer] [address] - [place], [place] [id number] e : FINAL Annamarie Smith ast 06/07 CA 125 panel CA 125 UNITS/ ML 0.0 34.0 9.80 Test performed at [facility] on a [employer] Immunoass ay Analyzer that uses an immunoenz ymometric sandwich assay for analysis. Patient testing should not be performed using multiple hallie soto due to analytica l variation seen between test hallie soto. FINAL Annamarie noel Oncology [facility], [address] [facility] [address] [facility] [id number] 0 Phone: () - 06/07 CBC w/ auto diff WBC K/uL 3.0 8.9 9.5 High FINAL Annamarie Mcginnisot bert [facility], [address] [place] [address] [address] [place] [id number] 0 Phone: () - 06/07 CBC w/ auto diff HGB g/dL 11.3 15.2 12.2 FINAL Annamarie Mcginnisot bert [facility], [address] [place] [id number] 0 Phone: () - 06/07 CBC w/ auto diff PLT K/uL 113.0 364.0 166 FINAL Annamarie Mcginnisot bert [facility], [address] [place] [address] [address] [place] [id number] 0 Phone: () - 06/07 CBC w/ auto diff Avtar # (ANC) K/uL 1.6 6.6 5.8 FINAL Annamarie Mcginnisot a [facility], [address] [place] [id number] 0 Phone: () - 06/07 CBC w/ auto diff Avtar % % 43.0 74.0 60.6 FINAL Annamarie Mcginnisot a [facility], [address] [place] [address] [address] [place] [id number] 0 Phone: () - 06/07 CBC w/ auto diff IG % % 0.0 0.5 0.7 High FINAL Annamarie Mcginnisot a [facility] [place] [facility], [address] [place] [address] [address] [place] [id number] 0 Phone: () - 06/07 CBC w/ auto diff IG # K/uL 0.0 0.03 0.07 High FINAL Annamarie Mcginnisot a [facility], [address] [place] [address] [address] [place] [id number] 0 Phone: () - 06/07 CBC w/ auto diff LY % % 14.0 41.0 25.2 FINAL Annamarie Mcginnisot a [facility] [place], [address] [place] [address] [address] [place] [id number] 0 Phone: () - 06/07 CBC w/ auto diff MO % % 6.0 15.0 7.7 FINAL Annamarie Mcginnisot a [facility] [place], [address] [place] [address] [address] [place] [id number] 0 Phone: () - 06/07 CBC w/ auto diff EO % % 0.0 7.0 5.1 FINAL Annamarie Mcginnisot a [facility] [place], [address] [place] [address] [address] [place] [id number] 0 Phone: () - 06/07 CBC w/ auto diff BA % % 0.0 2.0 0.7 FINAL Annamarie Mcginnisot a [facility] [place], [address] [place] [address] [address] [place] [id number] 0 Phone: () - 06/07 CBC w/ auto diff LY # K/uL 0.4 3.6 2.4 FINAL Annamarie Mcginnisot a [facility] [place], [address] [place] [address] [address] [place] [id number] 0 Phone: () - 06/07 CBC w/ auto diff MO # K/uL 0.2 1.3 0.7 FINAL Annamarie Mcginnisot a [facility] [place], [address] [place] [address] [address] [place] [id number] 0 Phone: () - 06/07 CBC w/ auto diff EO # K/uL 0.0 0.6 0.5 FINAL Annamarie Mcginnisot a [facility] [place], [address] [place] [address] [address] [place] [id number] 0 Phone: () - 06/07 CBC w/ auto diff BA # K/uL 0.0 0.2 0.1 FINAL Annamarie Mcginnisot a [facility] [place], [address] [place] [address] [address] [place] [id number] 0 Phone: () - 06/07 CBC w/ auto diff NRBC % #/100W BC 0.0 0.2 0.0 FINAL Annamarie Mcginnisot bert [facility] [place] [facility], [address] [place] [address] [address] [place] [id number] 0 Phone: () - 06/07 CBC w/ auto diff RBC M/uL 3.9 5.1 3.46 Low FINAL Annamarie Mcginnisot a [facility] [place] [facility], [address] [place] [address] [address] [place] [id number] 0 Phone: () - 06/07 CBC w/ auto diff HCT % 35.0 48.0 35.6 FINAL Annamarie Mcginnisot bert [facility] [place] [facility], [address] [place] [address] [address] [place] [id number] 0 Phone: () - 06/07 CBC w/ auto diff MCV fL 80.0 104.0 102.9 FINAL Annamarie Mcginnisot a [facility], [address] [place] [address] [address] [place] [id number] 0 Phone: () - 06/07 CBC w/ auto diff MCH pg 26.0 35.0 35.3 High FINAL Annamarie Mcginnisot a [facility] [place] [facility], [address] [place] [address] [address] [place] [id number] 0 Phone: () - 06/07 CBC w/ auto diff MCHC g/dL 30.0 35.0 34.3 FINAL Annamarie Mcginnisot bert [facility] [place] [facility], [address] [place] [address] [address] [place] [id number] 0 Phone: () - 06/07 CBC w/ auto diff MPV fL 9.5 13.4 9.4 Low FINAL Annamarie Mcginnisot a [facility] [place] [facility], [address] [place] [address] [address] [place] [id number] 0 Phone: () - 06/07 CBC w/ auto diff RDW % 11.4 16.1 12.50 FINAL Annamarie Mcginnisot a [facility] [place] [facility], [address] [place] [address] [address] [place] [id number] 0 Phone: () - 06/07 TSH panel TSH uIU/ml 0.32 5.0 3.43 Test performed at [facility] on a [employer] 2000 Immunoass ay Analyzer that uses an immunoenz ymometric sandwich assay for analysis. Patient testing should not be performed using multiple methodolo gies due to analytica l variation seen between test methodolo gies. FINAL Annamarie Peters [address] [id number] 0 Phone: () - 06/07 [facility] other lab See final finisher forging dies d 07/05 CA 125 panel CA 125 UNITS/ ML 0.0 34.0 9.50 Test performed at [facility] on a [employer] 2000 Immunoass ay Analyzer that uses an immunoenz ymometric sandwich assay for analysis. Patient testing should not be performed using multiple methodolo gies due to analytica l variation seen between test methodolo gies. FINAL Tamanna noel [address] [id number] 0 Phone: () - 07/05 TSH panel TSH uIU/ml 0.32 5.0 2.46 Test performed at [facility] on a [employer] 2000 Immunoass ay Analyzer that uses an immunoenz ymometric sandwich assay for analysis. Patient testing should not be performed using multiple methodolo gies due to analytica l variation seen between test methodolo gies. FINAL Tamanna noel [address] [id number] 0 Phone: () - 07/05 CBC w/ auto diff BA # K/uL 0.0 0.2 0.1 FINAL Tamanna noel [facility], [address] [place] [address] 200 [facility] [id number] 0 Phone: () - 07/05 CBC w/ auto diff NRBC % #/100W BC 0.0 0.2 0.0 FINAL Tamanna noel [facility], [address] [place] [address] 200 [facility] [id number] 0 Phone: () - 07/05 CBC w/ auto diff RBC M/uL 3.9 5.1 3.54 Low FINAL Tamanna noel [facility], [address] [place] [address] 200 [facility] [id number] 0 Phone: () - 07/05 CBC w/ auto diff HCT % 35.0 48.0 37.0 FINAL Tamanna noel [facility] [place], [address] [place] [address] [address] [place] [id number] 0 Phone: () - 07/05 CBC w/ auto diff MCV fL 80.0 104.0 104.5 High FINAL Tamanna noel [facility] [place], [address] [place] [id number] 0 Phone: () - 07/05 CBC w/ auto diff MCH pg 26.0 35.0 35.0 FINAL Tamanna noel [facility] [place], [address] [place] [id number] 0 Phone: () - 07/05 CBC w/ auto diff MCHC g/dL 30.0 35.0 33.5 FINAL Tamanna noel [facility] [place], [address] [place] [id number] 0 Phone: () - 07/05 CBC w/ auto diff MPV fL 9.5 13.4 9.5 FINAL Tamanna noel [facility] [place], [address] [place] [id number] 0 Phone: () - 07/05 CBC w/ auto diff RDW % 11.4 16.1 13.10 FINAL Tamanna noel [facility] [place], [address] [place] [id number] 0 Phone: () - 07/05 CBC w/ auto diff WBC K/uL 3.0 8.9 10.4 High FINAL Tamanna noel [facility] [place], [address] [place] [address] [address] [place] [id number] 0 Phone: () - 07/05 CBC w/ auto diff HGB g/dL 11.3 15.2 12.4 FINAL Tamanna noel [facility] [place], [address] [place] [address] [address] [place] [id number] 0 Phone: () - 07/05 CBC w/ auto diff PLT K/uL 113.0 364.0 177 FINAL Tamanna noel [facility] [place], [address] [place] [id number] 0 Phone: () - 07/05 CBC w/ auto diff Avtar # (ANC) K/uL 1.6 6.6 6.3 FINAL Tamanna noel [facility] [place], [address] [place] [id number] 0 Phone: () - 07/05 CBC w/ auto diff Avtar % % 43.0 74.0 61.2 FINAL Tamanna noel [facility] [place], [address] [place] [id number] 0 Phone: () - 07/05 CBC w/ auto diff IG % % 0.0 0.5 0.7 High FINAL Tamanna noel [facility] [place], [address] [place] [id number] 0 Phone: () - 07/05 CBC w/ auto diff IG # K/uL 0.0 0.03 0.07 High FINAL Tamanna noel [facility] [place], [address] [place] [id number] 0 Phone: () - 07/05 CBC w/ auto diff LY % % 14.0 41.0 24.2 FINAL Tamanna noel [facility] [place], [address] [place] [id number] 0 Phone: () - 07/05 CBC w/ auto diff MO % % 6.0 15.0 8.6 FINAL Tamanna noel [facility] [place], [address] [place] [id number] 0 Phone: () - 07/05 CBC w/ auto diff EO % % 0.0 7.0 4.5 FINAL Tamanna noel [facility] [place], [address] [place] [id number] 0 Phone: () - 07/05 CBC w/ auto diff BA % % 0.0 2.0 0.8 FINAL Tamanna noel [facility] [place], [address] [place] [id number] 0 Phone: () - 07/05 CBC w/ auto diff LY # K/uL 0.4 3.6 2.5 FINAL Tamanna noel [facility] [place] [facility], [address] [place] [address] 200 [facility] [id number] 0 Phone: () - 07/05 CBC w/ auto diff MO # K/uL 0.2 1.3 0.9 FINAL Tamanna noel [facility] [place] [facility], [address] [place] [address] 200 [facility] [id number] 0 Phone: () - 07/05 CBC w/ auto diff EO # K/uL 0.0 0.6 0.5 FINAL Tamanna noel [facility] [place] [facility], [address] [place] [address] 200 [facility] [id number] 0 Phone: () - 07/05 CMP Sodiu m mmol/L 135.0 145.0 133 Low FINAL Tamanna Rolon 07/05 CMP Potas sium mmol/L 3.5 5.0 4.6 FINAL Tamanna Rolon 07/05 CMP Chlor sathish mmol/L 98.0 110.0 94 Low FINAL Tamanna Rolon 07/05 CMP CO2 mmol/L 21.0 31.0 29 FINAL Tamanna Rolon 07/05 CMP Anion gap, mmol/ L 5.0 18.0 10.0% FINAL Tamanna Rolon 07/05 CMP Gluco se mg/dL 65.0 100.0 100 FINAL Tamanna Rolon 07/05 CMP Calci um mg/dL 8.5 10.5 9.8 FINAL Tamanna Rolon 07/05 CMP BUN mg/dL 8.0 25.0 15 FINAL Tamanna Rolon 07/05 CMP Creat inine mg/dL 0.57 1.11 1.22 High FINAL Tamanna Rolon 07/05 CMP BUN/C reati nine ratio 10.0 20.0 12.0% FINAL Tamanna Rolon 07/05 CMP GFR Afric an Amer[place] can, estim ated ml/min /1.73m 2 53 Low FINAL Tamanna Rolon 07/05 CMP GFR non-A f[place] n Ameri can, estim ated ml/min /1.73m 2 44 Low FINAL Tamanna Rolon 07/05 CMP Album in g/dL 3.2 4.6 4.5 FINAL Tamanna Rolon 07/05 CMP Total prote in g/dL 6.0 8.0 7.4 FINAL Tamanna Rolon 07/05 CMP Globu samreen g/dL 2.0 3.7 2.9 FINAL Tamanna Rolon 07/05 CMP A/G ratio 1.0 2.0 1.6% FINAL Tamanna Rolon 07/05 CMP Bilir ubin, total mg/dL 0.2 1.2 0.4 FINAL Tamanna Rolon 07/05 CMP Alkal ine phosp hatas e IU/L 50.0 136.0 64 FINAL Tamanna Rolon 07/05 CMP ALT/S GPT IU/L 8.0 45.0 23 FINAL Tamanna Rolon 07/05 CMP AST/S GOT IU/L 2.0 40.0 36 Test Performed by:[employer] [facility] [address], [address] - [place], [place] [address]Gbwi e [phone] FINAL Tamanna Rolon 07/05 [facility] [place] lab See final finisher forging dies d 07/13 [facility] other lab See final finisher forging dies d 08/02 TSH panel TSH uIU/ml 0.32 5.0 2.38 Test performed at [facility] on a [employer] Immunoass ay Analyzer that uses an immunoenz ymometric sandwich assay for analysis. Patient testing should not be performed using multiple methodolo gies due to analytica l variation seen between test methodolo gies. FINAL Tamanna noel [address] [phone] Phone: () - 08/02 CA 125 panel CA 125 UNITS/ ML 0.0 34.0 8.50 Test performed at [facility] on a [employer] 2000 Immunoass ay Analyzer that uses an immunoenz ymometric sandwich assay for analysis. Patient testing should not be performed using multiple methodolo gies due to analytica l variation seen between test methodolo gies. FINAL Tamanna noel Oncology [address] [facility] [phone] Phone: () - 08/02 CBC w/ auto diff WBC K/uL 3.0 8.9 9.3 High FINAL Tamanna noel On[facility] - [place], [address] [place] [id number] 0 Phone: () - 08/02 CBC w/ auto diff HGB g/dL 11.3 15.2 12.5 FINAL Tamanna noel On[facility] - [place], [address] [place] [id number] 0 Phone: () - 08/02 CBC w/ auto diff PLT K/uL 113.0 364.0 165 FINAL Tamanna noel [facility] - [place], [address] [place] [address] [address] [place] [id number] 0 Phone: () - 08/02 CBC w/ auto diff Avtar # (ANC) K/uL 1.6 6.6 5.7 FINAL Tamanna noel [facility] - [place], [address] [place] [address] [address] [place] [id number] 0 Phone: () - 08/02 CBC w/ auto diff Avtar % % 43.0 74.0 61.0 FINAL Tamanna noel On[facility] - [place], [address] [place] [id number] 0 Phone: () - 08/02 CBC w/ auto diff IG % % 0.0 0.5 0.6 High FINAL Tamanna noel [facility] - [place], [address] [place] [address] [address] [place] [id number] 0 Phone: () - 08/02 CBC w/ auto diff IG # K/uL 0.0 0.03 0.06 High FINAL Tamanna noel [facility] - [place], [address] [place] [address] [address] [place] [id number] 0 Phone: () - 08/02 CBC w/ auto diff LY % % 14.0 41.0 24.1 FINAL Tamanna noel [facility] - [place], [address] [place] [address] [address] [place] [id number] 0 Phone: () - 08/02 CBC w/ auto diff MO % % 6.0 15.0 8.4 FINAL Tamanna noel [facility] - [place], [address] [place] [id number] 0 Phone: () - 08/02 CBC w/ auto diff EO % % 0.0 7.0 5.1 FINAL Tamanna noel [facility] - [place], [address] [place] [id number] 0 Phone: () - 08/02 CBC w/ auto diff BA % % 0.0 2.0 0.8 FINAL Tamanna noel [facility] - [place], [address] [place] [address] 200 [place] [id number] 0 Phone: () - 08/02 CBC w/ auto diff LY # K/uL 0.4 3.6 2.2 FINAL Tamanna noel [facility] - [place], [address] [place] [address] 200 [place] [id number] 0 Phone: () - 08/02 CBC w/ auto diff MO # K/uL 0.2 1.3 0.8 FINAL Tamanna noel [facility] - [place], [address] [place] [address] 200 [place] [id number] 0 Phone: () - 08/02 CBC w/ auto diff EO # K/uL 0.0 0.6 0.5 FINAL Tamanna noel [facility] - [place], [address] [place] [address] [address] [place] [id number] 0 Phone: () - 08/02 CBC w/ auto diff BA # K/uL 0.0 0.2 0.1 FINAL Tamanna noel [facility] - [place], [address] [place] [address] [address] [place] [id number] 0 Phone: () - 08/02 CBC w/ auto diff NRBC % #/100W BC 0.0 0.2 0.0 FINAL Tamanna noel [facility] - [place], [address] [place] [address] [address] [place] [id number] 0 Phone: () - 08/02 CBC w/ auto diff RBC M/uL 3.9 5.1 3.55 Low FINAL Tamanna noel On[facility] - [place], [address] [place] [address] [address] [place] [id number] 0 Phone: () - 08/02 CBC w/ auto diff HCT % 35.0 48.0 37.3 FINAL Tamanna noel On[facility] - [place], [address] [place] [address] [address] [place] [id number] 0 Phone: () - 08/02 CBC w/ auto diff MCV fL 80.0 104.0 105.1 High FINAL Tamanna noel On[facility] - [place], [address] [place] [address] [address] [place] [id number] 0 Phone: () - 08/02 CBC w/ auto diff MCH pg 26.0 35.0 35.2 High FINAL Tamanna noel On[facility] - [place], [address] [place] [address] [address] [place] [id number] 0 Phone: () - 08/02 CBC w/ auto diff MCHC g/dL 30.0 35.0 33.5 FINAL Tamanna noel On[facility] - [place], [address] [place] [address] [address] [place] [id number] 0 Phone: () - 08/02 CBC w/ auto diff MPV fL 9.5 13.4 9.6 FINAL Tamanna noel On[facility] - [place], [address] [place] [address] [address] [place] [id number] 0 Phone: () - 08/02 CBC w/ auto diff RDW % 11.4 16.1 13.00 FINAL Tamanna noel [facility] - [place], [address] [place] [address] [address] [place] [id number] 0 Phone: () - 08/02 CMP Sodiu m mmol/L 135.0 145.0 132 Low FINAL Tamannanithin Rolon 08/02 CMP Potas sium mmol/L 3.5 5.0 4.6 FINAL Tamannanithin Rolon 08/02 CMP Chlor sathish mmol/L 98.0 110.0 96 Low FINAL Tamannanithin Rolon 08/02 CMP CO2 mmol/L 21.0 31.0 28 FINAL Tamanna Rolon 08/02 CMP Anion gap, mmol/ L 5.0 18.0 8.0% FINAL Tamanna Rolon 08/02 CMP Gluco se mg/dL 65.0 100.0 97 FINAL Tamanna Rolon 08/02 CMP Calci um mg/dL 8.5 10.5 9.1 FINAL Tamanna Rolon 08/02 CMP BUN mg/dL 8.0 25.0 12 FINAL Tamanna Rolon 08/02 CMP Creat inine mg/dL 0.57 1.11 1.00 FINAL Tamanna Rolon 08/02 CMP BUN/C reati nine ratio 10.0 20.0 12.0% FINAL Tamanna Rolon 08/02 CMP GFR Afric an Ameri can, estim ated ml/min /1.73m 2 >60 FINAL Tamanna Rolon 08/02 CMP GFR non-A frica n Ameri can, estim ated ml/min /1.73m 2 55 Low FINAL Tamanna Rolon 08/02 CMP Album in g/dL 3.2 4.6 4.2 FINAL Tamanna Rolon 08/02 CMP Total prote in g/dL 6.0 8.0 7.2 FINAL Tamanna Rolon 08/02 CMP Globu samreen g/dL 2.0 3.7 3.0 FINAL Tamanna Rolon 08/02 CMP A/G ratio 1.0 2.0 1.4% FINAL Tamanna Rolon 08/02 CMP Bilir ubin, total mg/dL 0.2 1.2 0.6 FINAL Tamanna Rolon 08/02 CMP Alkal ine phosp hatas e IU/L 50.0 136.0 65 FINAL Tamanna Rolon 08/02 CMP ALT/S GPT IU/L 8.0 45.0 19 FINAL Tamanna Rolon 08/02 CMP AST/S GOT IU/L 2.0 40.0 32 Test Performed by:[employer] [facility] [address], [address] - [facility] [address]Fdwz e : FINAL Tamanna Rolon 08/02 Misc other lab See final finisher forging dies d 08/13 [facility] lab See final finisher forging dies d 08/30 Magne sium, mg/dL mg/dL 1.5 2.3 1.5 FINAL Tamanna noel [facility], [address] [place] [address] [phone] 0 Phone: () - 08/30 TSH panel TSH uIU/ml 0.32 5.0 2.25 Test performed at [facility] on a [employer] Immunoass ay Analyzer that uses an immunoenz ymometric sandwich assay for analysis. Patient testing should not be performed using multiple methodolo gies due to analytica l variation seen between test methodolo gies. FINAL Tamanna noel [address] [phone] 0 Phone: () - 08/30 Retic ulocy te, absol carlos M/uL 0.02 0.08 0.08 FINAL Tamanna noel [facility], [address] [place] [address] 200 [facility] [id number] 0 Phone: () - 08/30 Retic ulocy te count % 0.4 1.6 2.19 High FINAL Tamanna noel [facility], [address] [place] [address] 200 [facility] [place] [id number] 0 Phone: () - 08/30 Immat ure retic ulocy te fract ion, % % 0.0 16.5 20.20 High FINAL Tamanna noel [facility], [address] [place] [address] 200 [facility] [id number] 0 Phone: () - 08/30 Retic ulocy te cellu lar hemog lobin pg 28.0 37.0 38.2 High FINAL Tamanna noel [facility], [address] [place] [address] 200 [facility] [place] [id number] 0 Phone: () - 08/30 CA 125 panel CA 125 UNITS/ ML 0.0 34.0 12.90 Test performed at [facility] on a [employer] 2000 Immunoass ay Analyzer that uses an immunoenz ymometric sandwich assay for analysis. Patient testing should not be performed using multiple methodolo gies due to analytica l variation seen between test methodolo gies. FINAL Tamanna noel Oncology - [place], [address] [facility] [address] [facility] [id number] 0 Phone: () - 08/30 CBC w/ auto diff WBC K/uL 3.0 8.9 8.8 FINAL Tamanna noel [facility] - [place], [address] [place] [address] [address] [place] [id number] 0 Phone: () - 08/30 CBC w/ auto diff HGB g/dL 11.3 15.2 12.3 FINAL Tamanna noel [facility] - [place], [address] [place] [address] [address] [place] [id number] 0 Phone: () - 08/30 CBC w/ auto diff PLT K/uL 113.0 364.0 161 FINAL Tamanna noel [facility] - [place], [address] [place] [address] [address] [place] [id number] 0 Phone: () - 08/30 CBC w/ auto diff Avtar # (ANC) K/uL 1.6 6.6 5.6 FINAL Tamanna noel [facility] - [place], [address] [place] [address] [address] [place] [id number] 0 Phone: () - 08/30 CBC w/ auto diff Avtar % % 43.0 74.0 62.9 FINAL Tamanna noel [facility] - [place], [address] [place] [address] [address] [place] [id number] 0 Phone: () - 08/30 CBC w/ auto diff IG % % 0.0 0.5 0.5 FINAL Taamnna noel Oncology - [place], [address] [place] [address] [address] [place] [id number] 0 Phone: () - 08/30 CBC w/ auto diff IG # K/uL 0.0 0.03 0.04 High FINAL Tamanna noel [facility] - [place], [address] [place] [address] [address] [place] [id number] 0 Phone: () - 08/30 CBC w/ auto diff LY % % 14.0 41.0 23.7 FINAL Tamnana noel On[facility] - [place], [address] [facility] [place] [id number] 0 Phone: () - 08/30 CBC w/ auto diff MO % % 6.0 15.0 7.2 FINAL Tamanna noel [facility] - [place], [address] [place] [address] 200 [facility] [place] [id number] 0 Phone: () - 08/30 CBC w/ auto diff EO % % 0.0 7.0 5.1 FINAL Tamanna noel [facility] - [place], [address] [place] [address] 200 [facility] [place] [id number] 0 Phone: () - 08/30 CBC w/ auto diff BA % % 0.0 2.0 0.6 FINAL Tamanna noel [facility] - [place], [address] [place] [address] [address] [facility] [place] [id number] 0 Phone: () - 08/30 CBC w/ auto diff LY # K/uL 0.4 3.6 2.1 FINAL Tamanna noel [facility] - [place], [address] [place] [address] 200 [facility] [place] [id number] 0 Phone: () - 08/30 CBC w/ auto diff MO # K/uL 0.2 1.3 0.6 FINAL Tamanna noel [facility] - [place], [address] [place] [address] [address] [facility] [place] [id number] 0 Phone: () - 08/30 CBC w/ auto diff EO # K/uL 0.0 0.6 0.5 FINAL Tamanna noel [facility] - [place], [address] [place] [address] [address] [facility] [place] [id number] 0 Phone: () - 08/30 CBC w/ auto diff BA # K/uL 0.0 0.2 0.1 FINAL Tamanna noel [facility] - [place], [address] [place] [address] 200 [facility] [place] [id number] 0 Phone: () - 08/30 CBC w/ auto diff NRBC % #/100W BC 0.0 0.2 0.0 FINAL Tamanna noel [facility] - [place], [address] [place] [address] 200 [facility] [place] [id number] 0 Phone: () - 08/30 CBC w/ auto diff RBC M/uL 3.9 5.1 3.53 Low FINAL Tamanna noel [facility] - [place] [facility], [address] [place] [address] [address] [place] [id number] 0 Phone: () - 08/30 CBC w/ auto diff HCT % 35.0 48.0 37.1 FINAL Tamanna noel On[facility] - [place] [facility], [address] [place] [id number] 0 Phone: () - 08/30 CBC w/ auto diff MCV fL 80.0 104.0 105.1 High FINAL Tamanna noel [facility] - [place] [facility], [address] [place] [address] 200 [place] [id number] 0 Phone: () - 08/30 CBC w/ auto diff MCH pg 26.0 35.0 34.8 FINAL [facility], [address] [place] [address] 200 [place] [id number] 0 Phone: () - 08/30 CBC w/ auto diff MCHC g/dL 30.0 35.0 33.2 FINAL [facility] noel [facility], [address] [place] [address] 200 [place] [id number] 0 Phone: () - 08/30 CBC w/ auto diff MPV fL 9.5 13.4 9.7 FINAL Tam[facility] noel [facility] [address] [place] [id number] 0 Phone: () - 08/30 CBC w/ auto diff RDW % 11.4 16.1 12.40 FINAL Tamanna noel On[facility] - [place] [facility], [address] [place] [address] 200 [place] [id number] 0 Phone: () - 08/30 Folat e, serum ng/mL 3.0 16.0 Folate greater than 20 FINAL Tamanna noel Oncology [facility], [address] [facility] [address] [facility] [phone] 0 Phone: () - 08/30 CMP Sodiu m mmol/L 135.0 145.0 135 FINAL Tamanna Gonzales 08/30 CMP Potas sium mmol/L 3.5 5.0 4.6 FINAL Tamanna Kenny 08/30 CMP Chlor sathish mmol/L 98.0 110.0 96 Low [facility]AL [facility] 08/30 CMP CO2 mmol/L 21.0 31.0 32 [facility] CMP Anion gap, mmol/ L 5.0 18.0 7.0% FINAL Tamanna Gonzales 08/30 CMP Gluco se mg/dL 65.0 100.0 92 FINAL Tamanna Gonzales 08/30 CMP Calci um mg/dL 8.5 10.5 9.1 FINAL [facility] 08/30 CMP BUN mg/dL 8.0 25.0 10 [facility] 08/30 CMP Creat inine mg/dL 0.57 1.11 0.95 [facility] 08/30 CMP BUN/C reati nine ratio 10.0 20.0 11.0% FINAL [facility] 08/30 CMP GFR Afric an Ameri can, estim ated ml/min /1.73m 2 >60 FINAL [facility] 08/30 CMP GFR non-A frica n Ameri can, estim ated ml/min /1.73m 2 58 Low [facility] 08/30 CMP Album in g/dL 3.2 4.6 4.1 [facility] 08/30 CMP Total prote in g/dL 6.0 8.0 7.1 FINAL [facility] 08/30 CMP Globu samreen g/dL 2.0 3.7 3.0 [facility] 08/30 CMP A/G ratio 1.0 2.0 1.4% [facility] 08/30 CMP Bilir ubin, total mg/dL 0.2 1.2 0.4 [facility] 08/30 CMP Alkal ine phosp hatas e IU/L 50.0 136.0 63 [facility]AL [facility] 08/30 CMP ALT/S GPT IU/L 8.0 45.0 18 FINAL Tamanna Rolon 08/30 CMP AST/S GOT IU/L 2.0 40.0 30 Test Performed by:[employer] [facility] [address] - [facility] [address]Ngrd e [phone] FINAL Tamanna Rolon 08/30 Rashida stero l mg/dL 100.0 199.0 146 FINAL Tamanna Rolon 08/30 Chemi strie s Fasti ng statu s RANDOM Test Performed by:[employer] [facility] [address] - [facility] [address]Drcs e : FINAL Tamanna Rolon 08/30 Phosp horus mg/dL 2.3 4.7 2.6 Test Performed by:[employer] [facility] [address] - [facility], [place] [address]Hcrm e : FINAL Tamanna Rolon 08/30 LDH U/L 120.0 246.0 184 FINAL Tamanna noel [address] [phone] [phone] Phone: () - 09/27 Magne sium, mg/dL mg/dL 1.5 2.3 1.4 Low FINAL Tamanna noel [address] [id number] [phone] Phone: () - 09/27 Retic ulocy te, absol carlos M/uL 0.02 0.08 0.09 High FINAL Tamanna noel Oncology - [facility], [address] [place] [address] 200 [facility] [id number] 0 Phone: () - 09/27 Retic ulocy te count % 0.4 1.6 2.55 High FINAL Tamanna noel Oncology - [facility], [address] [place] [address] 200 [facility] [id number] 0 Phone: () - 09/27 Immat ure retic ulocy te fract ion, % % 0.0 16.5 26.30 High FINAL Tamanna noel Oncology - [facility], [address] [place] [address] [address] [place] [id number] 0 Phone: () - 09/27 Retic ulocy te cellu lar hemog lobin pg 28.0 37.0 38.2 High FINAL Tamanna noel [facility] - [place], [address] 200 [place] [id number] 0 Phone: () - 09/27 CBC w/ auto diff WBC K/uL 3.0 8.9 10.3 High FINAL Tamanna noel On[facility] - [place], [address] 200 [place] [id number] 0 Phone: () - 09/27 CBC w/ auto diff HGB g/dL 11.3 15.2 12.9 FINAL Tamanna noel On[facility] - [place], [address] 200 [place] [id number] 0 Phone: () - 09/27 CBC w/ auto diff PLT K/uL 113.0 364.0 190 FINAL Tamanna noel Oncology - [place], [address] 200 [place] [id number] 0 Phone: () - 09/27 CBC w/ auto diff Avtar # (ANC) K/uL 1.6 6.6 6.7 High FINAL Tamanna noel On[facility] - [place], [address] [place] [address] 200 [place] [id number] 0 Phone: () - 09/27 CBC w/ auto diff Avtar % % 43.0 74.0 64.3 FINAL Tamanna noel Oncology - [place], [address] 200 [place] [id number] 0 Phone: () - 09/27 CBC w/ auto diff IG % % 0.0 0.5 0.7 High FINAL Tamanna noel Oncology - [place], [address] [place] [address] 200 [place] [id number] 0 Phone: () - 09/27 CBC w/ auto diff IG # K/uL 0.0 0.03 0.07 High FINAL Tamanna noel On[facility] - [place], [address] [place] [address] 200 [place] [id number] 0 Phone: () - 09/27 CBC w/ auto diff LY % % 14.0 41.0 23.6 FINAL Tamanna noel On[facility] - [place], [address] 200 [facility] [id number] 0 Phone: () - 09/27 CBC w/ auto diff MO % % 6.0 15.0 6.8 FINAL Tamanna noel On[facility] - [place], [address] [place] [address] 200 [facility] [id number] 0 Phone: () - 09/27 CBC w/ auto diff EO % % 0.0 7.0 4.1 FINAL Tamanna noel On[facility] - [place], [address] [place] [address] 200 [facility] [id number] 0 Phone: () - 09/27 CBC w/ auto diff BA % % 0.0 2.0 0.5 FINAL Tamanna noel Oncology - [place], [address] [place] [address] 200 [facility] [id number] 0 Phone: () - 09/27 CBC w/ auto diff LY # K/uL 0.4 3.6 2.4 FINAL Tamanna noel Oncology - [place], [address] [place] [address] 200 [facility] [place] [id number] 0 Phone: () - 09/27 CBC w/ auto diff MO # K/uL 0.2 1.3 0.7 FINAL Tamanna noel Oncology - [place], [address] [place] [address] 200 [facility] [id number] 0 Phone: () - 09/27 CBC w/ auto diff EO # K/uL 0.0 0.6 0.4 FINAL Tamanna noel Oncology - [place], [address] [place] [address] 200 [facility] [place] [id number] 0 Phone: () - 09/27 CBC w/ auto diff BA # K/uL 0.0 0.2 0.1 FINAL Tamanna noel Oncology - [place], [address] [place] [address] 200 [facility] [id number] 0 Phone: () - 09/27 CBC w/ auto diff NRBC % #/100W BC 0.0 0.2 0.0 FINAL Tamanna noel Oncology - [place] [facility], [address] [place] [address] [address] [place] [id number] 0 Phone: () - 09/27 CBC w/ auto diff RBC M/uL 3.9 5.1 3.70 Low FINAL Tamanna noel Oncology - [place] [facility], [address] [place] [address] [address] [place] [id number] 0 Phone: () - 09/27 CBC w/ auto diff HCT % 35.0 48.0 38.7 FINAL Tamanna noel Oncology - [place] [facility], [address] [place] [address] 200 [place] [id number] 0 Phone: () - 09/27 CBC w/ auto diff MCV fL 80.0 104.0 104.6 High FINAL Tamanna noel Oncology - [place] [facility], [address] [place] [address] 200 [place] [id number] 0 Phone: () - 09/27 CBC w/ auto diff MCH pg 26.0 35.0 34.9 FINAL Tamanna noel Oncology - [place] [facility], [address] [place] [address] 200 [place] [id number] 0 Phone: () - 09/27 CBC w/ auto diff MCHC g/dL 30.0 35.0 33.3 FINAL Tamanna noel Oncology - [place] [facility], [facility] [address] [place] [id number] 0 Phone: () - 09/27 CBC w/ auto diff MPV fL 9.5 13.4 9.1 Low FINAL Tamanna noel Oncology - [place] [facility], [address] [place] [address] [address] [place] [id number] 0 Phone: () - 09/27 CBC w/ auto diff RDW % 11.4 16.1 12.40 FINAL Tamanna noel Oncology - [place] [facility], [facility] [address] [place] [id number] 0 Phone: () - 09/27 CA 125 UNITS/ ML 0.0 34.0 10.40 Test performed at [facility] on a [employer] 2000 [employer] ay Analyzer that uses an immunoenz ymometric sandwich assay for analysis. Patient testing should not be performed using multiple methodolo gies due to analytica l variation seen between test methodolo gies. FINAL Tamanna Peters a Oncology [address] [phone] 0 Phone: () - 09/27 TSH uIU/ml 0.32 5.0 2.56 Test performed at [facility] on a [employer] 2000 [employer] ay Analyzer that uses an immunoenz ymometric sandwich assay for analysis. Patient testing should not be performed using multiple methodolo gies due to analytica l variation seen between test methodolo gies. FINAL Tamanna noel Oncology - [address] [id number] 0 Phone: () - 09/27 Rashida stero l mg/dL 100.0 199.0 148 [facility]AL [facility] 09/27 Chemi strie s Fasti ng statu s RANDOM Test Performed by:[employer] [facility] [address] - [place], [place] [address]Cwtu e : FINAL [facility] 09/27 Phosp horus mg/dL 2.3 4.7 2.8 Test Performed by:[employer] [facility] [address] - [place], [place] [address]Tieg e : FINAL Tamanna Gonzales 09/27 CMP Sodiu m mmol/L 135.0 145.0 131 Low [facility]AL [facility] 09/27 CMP Potas sium mmol/L 3.5 5.0 4.6 [facility]AL [facility] 09/27 CMP Chlor sathish mmol/L 98.0 110.0 92 Low [facility] 09/27 CMP CO2 mmol/L 21.0 31.0 29 [facility]AL [facility] 09/27 CMP Anion gap, mmol/ L 5.0 18.0 10.0% [facility]AL [facility] 09/27 CMP Gluco se mg/dL 65.0 100.0 96 FINAL Tamanna Rolon 09/27 CMP Calci um mg/dL 8.5 10.5 9.0 FINAL Tamanna Rolon 09/27 CMP BUN mg/dL 8.0 25.0 11 FINAL Tamanna Rolon 09/27 CMP Creat inine mg/dL 0.57 1.11 1.09 FINAL Tamanna Rolon 09/27 CMP BUN/C reati nine ratio 10.0 20.0 10.0% FINAL Tamanna Rolon 09/27 CMP GFR Afric an Ameri can, estim ated ml/min /1.73m 2 60 Low FINAL Tamanna Rolon 09/27 CMP GFR non-A frica n Ameri can, estim ated ml/min /1.73m 2 50 Low FINAL Tamanna Rolon 09/27 CMP Album in g/dL 3.2 4.6 4.0 FINAL Tamanna Rolon 09/27 CMP Total prote in g/dL 6.0 8.0 7.0 FINAL Tamanna Rolon 09/27 CMP Globu samreen g/dL 2.0 3.7 3.0 FINAL Tamanna Rolon 09/27 CMP A/G ratio 1.0 2.0 1.3% FINAL Tamanna Rolon 09/27 CMP Bilir ubin, total mg/dL 0.2 1.2 0.4 FINAL Tamanna Rolon 09/27 CMP Alkal ine phosp hatas e IU/L 50.0 136.0 70 FINAL Tamanna Rolon 09/27 CMP ALT/S GPT IU/L 8.0 45.0 16 FINAL Tamanna Rolon 09/27 CMP AST/S GOT IU/L 2.0 40.0 25 Test Performed by:[employer] [address] - [facility] [address]Hhfm e : FINAL Tamanna Rolon 09/27 LDH U/L 120.0 246.0 176 FINAL [facility] - [place], [address] [place] [address] [address] [facility] [phone] 0 Phone: () - 09/27 Folat e, serum ng/mL 3.0 16.0 17.4 High FINAL Tamanna noel Oncology [facility], [address] [facility] [address] [place] [phone] 0 Phone: () - 10/25 CBC w/ auto diff WBC K/uL 3.0 8.9 9.3 High FINAL Tamanna noel [facility] - [place], [address] [facility] [place] [id number] 0 Phone: () - 10/25 CBC w/ auto diff HGB g/dL 11.3 15.2 12.9 FINAL Tamanna noel [facility] - [place], [address] [place] [address] [address] [facility] [place] [phone] 0 Phone: () - 10/25 CBC w/ auto diff PLT K/uL 113.0 364.0 162 FINAL Tamanna noel [facility] - [place] [facility], [address] [place] [address] [address] [facility] [place] [phone] 0 Phone: () - 10/25 CBC w/ auto diff [place] # (ANC) K/uL 1.6 6.6 6.1 FINAL [facility] [place] [facility] [facility], [address] [place] [address] 200 [place] [id number] 0 Phone: () - 10/25 CBC w/ auto diff Avtar % % 43.0 74.0 64.9 FINAL Tamanna noel [facility] [place], [address] [place] [address] [address] [facility] [place] [id number] 0 Phone: () - 10/25 CBC w/ auto diff IG % % 0.0 0.5 0.5 FINAL Tamanna noel [facility] [place] [facility], [address] [place] [address] [address] [place] [id number] 0 Phone: () - 10/25 CBC w/ auto diff IG # K/uL 0.0 0.03 0.05 High FINAL Tamanna noel [facility] [place], [address] [place] [address] [address] [facility] [place] [id number] 0 Phone: () - 10/25 CBC w/ auto diff LY % % 14.0 41.0 22.9 FINAL Tamanna noel [facility] [place], [address] [place] [address] [address] [place] [id number] 0 Phone: () - 10/25 CBC w/ auto diff MO % % 6.0 15.0 7.1 FINAL Tamanna noel [facility] [place], [address] [place] [address] [address] [place] [id number] 0 Phone: () - 10/25 CBC w/ auto diff EO % % 0.0 7.0 4.2 FINAL Tamanna noel [facility] [place], [address] [place] [id number] 0 Phone: () - 10/25 CBC w/ auto diff BA % % 0.0 2.0 0.4 FINAL Tamanna noel [facility] [place], [address] [place] [id number] 0 Phone: () - 10/25 CBC w/ auto diff LY # K/uL 0.4 3.6 2.1 FINAL Tamanna noel [facility] [place], [address] [place] [id number] 0 Phone: () - 10/25 CBC w/ auto diff MO # K/uL 0.2 1.3 0.7 FINAL Tamanna noel [facility] [place], [address] [place] [address] [address] [place] [id number] 0 Phone: () - 10/25 CBC w/ auto diff EO # K/uL 0.0 0.6 0.4 FINAL Tamanna noel [facility] [place], [address] [place] [id number] 0 Phone: () - 10/25 CBC w/ auto diff BA # K/uL 0.0 0.2 0.0 FINAL Tamanna noel [facility] [place], [address] [place] [address] [address] [place] [id number] 0 Phone: () - 10/25 CBC w/ auto diff NRBC % #/100W BC 0.0 0.2 0.0 FINAL Tamanna noel [facility] [place] [facility], [address] [place] [id number] 0 Phone: () - 10/25 CBC w/ auto diff RBC M/uL 3.9 5.1 3.70 Low FINAL Tamanna noel [facility] [place] [facility], [address] [place] [id number] 0 Phone: () - 10/25 CBC w/ auto diff HCT % 35.0 48.0 39.0 FINAL Tamanna noel [facility] [place] [facility], [address] [place] [id number] 0 Phone: () - 10/25 CBC w/ auto diff MCV fL 80.0 104.0 105.4 High FINAL Tamanna noel [facility] [place] [facility], [address] [place] [id number] 0 Phone: () - 10/25 CBC w/ auto diff MCH pg 26.0 35.0 34.9 FINAL Tamanna noel [facility] [place] [facility], [address] [place] [id number] 0 Phone: () - 10/25 CBC w/ auto diff MCHC g/dL 30.0 35.0 33.1 FINAL Tamanna noel [facility] [place] [facility], [address] [place] [id number] 0 Phone: () - 10/25 CBC w/ auto diff MPV fL 9.5 13.4 9.8 FINAL Tamanna noel [facility] [place] [facility], [address] [place] [id number] 0 Phone: () - 10/25 CBC w/ auto diff RDW % 11.4 16.1 13.10 FINAL Tamanna noel [facility] [place] [facility], [address] [place] [id number] 0 Phone: () - 10/25 Magne sium, mg/dL mg/dL 1.5 2.3 1.9 FINAL Tamanna noel [facility] [address] [id number] [phone] Phone: () - 10/25 CA 125 panel CA 125 UNITS/ ML 0.0 34.0 6.90 Test performed at [facility] on a [employer] 2000 Immuno[employer] ay Analyzer that uses an immunoenz ymometric sandwich assay for analysis. Patient testing should not be performed using multiple methodolo gies due to analytica l variation seen between test methodolo gies. FINAL Tamanna noel [address] [id number] 0 Phone: () - 10/25 TSH uIU/ml 0.32 5.0 2.28 Test performed at [facility] on a [employer] 2000 Immunoass ay Analyzer that uses an immunoenz ymometric sandwich assay for analysis. Patient testing should not be performed using multiple methodolo gies due to analytica l variation seen between test methodolo gies. FINAL Tamanna noel [address] [id number] [phone] Phone: () - 10/25 Retic ulocy te, absol carlos M/uL 0.02 0.08 0.08 FINAL Tamanna noel [facility], [address] [place] [address] [facility] [place] [id number] 0 Phone: () - 10/25 Retic ulocy te count % 0.4 1.6 2.29 High FINAL Tamanna noel [facility], [address] [place] [address] [facility] [place] [id number] 0 Phone: () - 10/25 Immat ure retic ulocy te fract ion, % % 0.0 16.5 18.50 High FINAL Tamanna Mcginnis bert [facility], [address] [place] [address] 200 [facility] [place] [id number] 0 Phone: () - 10/25 Retic ulocy te cellu lar hemog lobin pg 28.0 37.0 38.2 High FINAL Tamanna cMginnis bert [facility], [address] [place] [address] 200 [facility] [id number] 0 Phone: () - 10/25 CMP Sodiu m mmol/L 135.0 145.0 132 Low [facility] 10/25 CMP Potas sium mmol/L 3.5 5.0 4.7 [facility] 10/25 CMP Chlor sathish mmol/L 98.0 110.0 95 Low [facility] 10/25 CMP CO2 mmol/L 21.0 31.0 26 [facility] 10/25 CMP Anion gap, mmol/ L 5.0 18.0 11.0% [facility] 10/25 CMP Gluco se mg/dL 65.0 100.0 100 [facility] 10/25 CMP Calci um mg/dL 8.5 10.5 8.5 [facility] 10/25 CMP BUN mg/dL 8.0 25.0 23 [facility] 10/25 CMP Creat inine mg/dL 0.57 1.11 1.15 High [facility] 10/25 CMP BUN/C reati nine ratio 10.0 20.0 20.0% [facility] 10/25 CMP GFR Afric an Ameri can, estim ated ml/min /1.73m 2 56 Low [facility] 10/25 CMP GFR non-A frica n Ameri can, estim ated ml/min /1.73m 2 47 Low [facility] 10/25 CMP Album in g/dL 3.2 4.6 4.0 [facility] 10/25 CMP Total prote in g/dL 6.0 8.0 6.8 [facility] 10/25 CMP Globu samreen g/dL 2.0 3.7 2.8 [facility] 10/25 CMP A/G ratio 1.0 2.0 1.4% [facility] 10/25 CMP Bilir ubin, total mg/dL 0.2 1.2 0.6 [facility] 10/25 CMP Alkal ine phosp hatas e IU/L 50.0 136.0 74 FINAL Tamanna Rolon 10/25 CMP ALT/S GPT IU/L 8.0 45.0 17 FINAL Tamanna Rolon 10/25 CMP AST/S GOT IU/L 2.0 40.0 29 Test Performed by:[employer] [facility] [address] - [facility], [place] [address]Grad e : FINAL Tamanna Rolon 10/25 Rashida stero l mg/dL 100.0 199.0 142 FINAL Tamanna Rolon 10/25 Chemi strie s Fasti ng statu s RANDOM Test Performed by:[facility] [employer] [facility] [address] - [facility], [place] [address]Yjjz e : FINAL Tamanna Rolon 10/25 Phosp horus mg/dL 2.3 4.7 3.3 Test Performed by:[facility] [employer] [facility] [address] - [facility], [place] [address]Ansm e [phone] FINAL Tamanna Rolon 10/25 Folat e, serum ng/mL 3.0 16.0 Folate greater than 20 FINAL Tam[facility] noel [facility] [address] [id number] [phone] Phone: () - 10/25 LDH U/L 120.0 246.0 185 FINAL Tam[facility] noel [facility] [address] [id number] 0 Phone: () - 11/22 CBC w/ auto diff LY # K/uL 0.4 3.6 1.8 FINAL Tamanna noel [facility] - [facility], [address] [place] [address] [address] [place] [id number] 0 Phone: () - 11/22 CBC w/ auto diff MO # K/uL 0.2 1.3 0.7 FINAL Tamanna noel [facility] - [facility], [address] [place] [address] [facility] [place] [id number] 0 Phone: () - 11/22 CBC w/ auto diff EO # K/uL 0.0 0.6 0.4 FINAL Tamanna noel [facility] [place], [address] [place] [id number] 0 Phone: () - 11/22 CBC w/ auto diff BA # K/uL 0.0 0.2 0.1 FINAL Tamanna noel [facility] [place], [address] [place] [id number] 0 Phone: () - 11/22 CBC w/ auto diff NRBC % #/100W BC 0.0 0.2 0.0 FINAL Tamanna noel [facility] [place], [address] [place] [id number] 0 Phone: () - 11/22 CBC w/ auto diff RBC M/uL 3.9 5.1 4.15 FINAL Tamanna noel [facility] [place], [facility] [address] [place] [id number] 0 Phone: () - 11/22 CBC w/ auto diff HCT % 35.0 48.0 42.3 FINAL Tamanna noel [facility] [place], [address] [place] [address] [address] [place] [id number] 0 Phone: () - 11/22 CBC w/ auto diff MCV fL 80.0 104.0 101.9 FINAL Tamanna noel [facility] [place], [address] [place] [id number] 0 Phone: () - 11/22 CBC w/ auto diff MCH pg 26.0 35.0 33.5 FINAL Tamanna noel [facility] [place], [address] [place] [id number] 0 Phone: () - 11/22 CBC w/ auto diff MCHC g/dL 30.0 35.0 32.9 FINAL Tamanna noel [facility] [place], [address] [place] [id number] 0 Phone: () - 11/22 CBC w/ auto diff MPV fL 9.5 13.4 9.3 Low FINAL Tamanna noel [facility] [place], [address] [place] [address] [address] [place] [id number] 0 Phone: () - 11/22 CBC w/ auto diff RDW % 11.4 16.1 12.70 FINAL Tamanna noel [facility] [place], [address] [place] [address] [address] [place] [id number] 0 Phone: () - 11/22 CBC w/ auto diff WBC K/uL 3.0 8.9 8.8 FINAL Tamanna noel [facility] [place], [address] [place] [address] [address] [place] [id number] 0 Phone: () - 11/22 CBC w/ auto diff HGB g/dL 11.3 15.2 13.9 FINAL Tamanna noel [facility] [place], [address] [place] [address] [address] [place] [id number] 0 Phone: () - 11/22 CBC w/ auto diff PLT K/uL 113.0 364.0 197 FINAL Tamanna noel [facility] [place], [address] [place] [address] [address] [place] [id number] 0 Phone: () - 11/22 CBC w/ auto diff Avtar # (ANC) K/uL 1.6 6.6 5.8 FINAL Tamanna noel [facility] [place], [address] [place] [address] [address] [place] [id number] 0 Phone: () - 11/22 CBC w/ auto diff Avtar % % 43.0 74.0 66.0 FINAL Tamanna noel [facility] [place], [address] [place] [address] [address] [place] [id number] 0 Phone: () - 11/22 CBC w/ auto diff IG % % 0.0 0.5 0.5 FINAL Tamanna noel [facility] [place], [address] [place] [address] [address] [place] [id number] 0 Phone: () - 11/22 CBC w/ auto diff IG # K/uL 0.0 0.03 0.04 High FINAL Tamanna noel [facility] [place], [address] [place] [id number] 0 Phone: () - 11/22 CBC w/ auto diff LY % % 14.0 41.0 20.[address] [facility], [address] [place] [id number] 0 Phone: () - 11/22 CBC w/ auto diff MO % % 6.0 15.0 7.8 FINAL Tamanna noel Oncology [facility], [address] [place] [id number] 0 Phone: () - 11/22 CBC w/ auto diff EO % % 0.0 7.0 4.9 FINAL Tamanna noel Oncology [facility], [address] [place] [id number] 0 Phone: () - 11/22 CBC w/ auto diff BA % % 0.0 2.0 0.6 FINAL Tamanna noel Oncology [facility], [address] [place] [address] [address] [place] [id number] 0 Phone: () - 11/22 CMP Album in g/dL 3.2 5.2 4.5 FINAL Tamanna noel [address] [id number] [phone] Phone: () - 11/22 CMP Alkal ine phosp hatas e U/L 46.0 116.0 67 FINAL Tamanna noel [address] [id number] 0 Phone: () - 11/22 CMP ALT/S GPT U/L 7.0 40.0 13 FINAL Tamanna noel [address] [id number] 0 Phone: () - 11/22 CMP AST/S GOT U/L 13.0 40.0 20 FINAL Tamanna noel [address] [id number] 0 Phone: () - 11/22 CMP BUN mg/dL 9.0 23.0 20 FINAL Tamanna Peters [address] [id number] 0 Phone: () - 11/22 CMP Calci um mg/dL 8.7 10.4 9.1 [facility] Tamanna Peters [address] [id number] 0 Phone: () - 11/22 CMP Chlor sathish mmol/L 96.0 114.0 96 [facility] Tamanna Mcginnis[address] [id number] 0 Phone: () - 11/22 CMP CO2 mmol/L 20.0 31.0 27 [facility] Tamanna Mcginnis[address] [id number] 0 Phone: () - 11/22 CMP Creat inine mg/dL 0.5 1.2 1.06 [facility] Tamanna Mcginnis[address] [id number] 0 Phone: () - 11/22 CMP GFR estim ate ml/min /1.73m ^2 52.8 Low GFR is calculate d using the CKD-EPI equation. [facility] Tamanna Mcginnis[address] [id number] 0 Phone: () - 11/22 CMP Gluco se mg/dL 73.0 126.0 94 [facility] Tamanna Mcginnis[address] [id number] 0 Phone: () - 11/22 CMP Potas sium mmol/L 3.5 5.1 5.0 [facility] [address] [id number] 0 Phone: () - 11/22 CMP Sodiu m mmol/L 136.0 145.0 130 Low [facility] [address] [id number] 0 Phone: () - 11/22 CMP Bilir ubin, total mg/dL 0.3 1.2 0.5 FINAL Tamanna noel [facility] [address] 100 [facility] [id number] 0 Phone: () - 11/22 CMP Total prote in g/dL 5.7 8.2 6.7 FINAL Tamanna noel [address] [id number] 0 Phone: () - 11/22 CA 125 panel CA 125 UNITS/ ML 0.0 34.0 8.10 Test performed at [facility] on a [employer] Immuno[employer] ay Analyzer that uses an immunoenz ymometric sandwich assay for analysis. Patient testing should not be performed using multiple hallie soto due to analytica l variation seen between test hallie soto. FINAL Tamanna noel [address] [phone] 0 Phone: () - 11/22 [facility] other lab See final finisher forging dies d 11/22 [facility] other lab See final finisher forging dies d 11/22 [facility] other lab See final finisher forging dies d 02/11 CBC w/ auto diff WBC K/uL 3.0 8.9 9.2 High FINAL Tamanna noel Oncology - [facility], [address] [place] [address] 200 [place] [id number] 0 Phone: () - 02/11 CBC w/ auto diff HGB g/dL 11.3 15.2 13.3 FINAL Tamanna noel [facility] - [facility], [address] [place] [address] 200 [place] [id number] 0 Phone: () - 02/11 CBC w/ auto diff PLT K/uL 113.0 364.0 267 FINAL Tamanna noel [facility] - [facility], [address] [place] [address] 200 [place] [id number] 0 Phone: () - 02/11 CBC w/ auto diff Avtar # (ANC) K/uL 1.6 6.6 6.1 FINAL Tamanna noel [facility] - [facility], [address] [place] [address] 200 [place] [id number] 0 Phone: () - 02/11 CBC w/ auto diff Avtar % % 43.0 74.0 66.8 FINAL Tamanna noel [facility] [place], [address] 200 [facility] [id number] 0 Phone: () - 02/11 CBC w/ auto diff IG % % 0.0 0.5 1.9 High FINAL Tamanna noel [facility] [place], [address] 200 [facility] [id number] 0 Phone: () - 02/11 CBC w/ auto diff IG # K/uL 0.0 0.03 0.17 High FINAL Tamanna noel [facility] [place], [address] [place] [address] 200 [facility] [id number] 0 Phone: () - 02/11 CBC w/ auto diff LY % % 14.0 41.0 19.2 FINAL Tamanna noel [facility] [place], [address] 200 [facility] [id number] 0 Phone: () - 02/11 CBC w/ auto diff MO % % 6.0 15.0 9.2 FINAL Tamanna noel [facility] [place], [address] [place] [address] 200 [facility] [id number] 0 Phone: () - 02/11 CBC w/ auto diff EO % % 0.0 7.0 2.5 FINAL Tamanna noel [facility] [place], [address] [place] [address] 200 [facility] [id number] 0 Phone: () - 02/11 CBC w/ auto diff BA % % 0.0 2.0 0.4 FINAL Tamanna noel [facility] [place], [address] [place] [address] 200 [facility] [place] [id number] 0 Phone: () - 02/11 CBC w/ auto diff LY # K/uL 0.4 3.6 1.8 FINAL Tamanna noel [facility] [place], [address] [place] [address] 200 [facility] [id number] 0 Phone: () - 02/11 CBC w/ auto diff MO # K/uL 0.2 1.3 0.8 FINAL Tamanna neol [facility] [place] [facility], [address] [place] [address] 200 [place] [id number] 0 Phone: () - 02/11 CBC w/ auto diff EO # K/uL 0.0 0.6 0.2 FINAL Tamanna noel [facility] [place] [facility], [address] [place] [address] 200 [place] [id number] 0 Phone: () - 02/11 CBC w/ auto diff BA # K/uL 0.0 0.2 0.0 FINAL Tamanna noel [facility] [place] [facility], [address] [place] [address] 200 [place] [id number] 0 Phone: () - 02/11 CBC w/ auto diff NRBC % #/100W BC 0.0 0.2 0.2 FINAL Tamanna noel [facility] [place] [facility], [address] [place] [address] 200 [place] [id number] 0 Phone: () - 02/11 CBC w/ auto diff RBC M/uL 3.9 5.1 4.09 FINAL Tamanna noel [facility] [place] [facility], [address] [place] [address] 200 [place] [id number] 0 Phone: () - 02/11 CBC w/ auto diff HCT % 35.0 48.0 40.6 FINAL Tamanna noel [facility] [place] [facility], [address] [place] [address] 200 [place] [id number] 0 Phone: () - 02/11 CBC w/ auto diff MCV fL 80.0 104.0 99.3 FINAL Tamanna noel [facility] [place] [facility], [address] [place] [address] 200 [place] [id number] 0 Phone: () - 02/11 CBC w/ auto diff MCH pg 26.0 35.0 32.5 FINAL Tamanna noel [facility] [place] [facility], [address] [place] [address] 200 [place] [id number] 0 Phone: () - 02/11 CBC w/ auto diff MCHC g/dL 30.0 35.0 32.8 FINAL Tamanna noel [facility], [address] 200 [place] [id number] 0 Phone: () - 02/11 CBC w/ auto diff MPV fL 9.5 13.4 8.6 Low FINAL Tamanna noel [facility], [address] 200 [place] [id number] 0 Phone: () - 02/11 CBC w/ auto diff RDW % 11.4 16.1 14.00 FINAL Tamanna noel [facility], [address] 200 [place] [id number] 0 Phone: () - 02/11 CMP Album in g/dL 3.2 5.2 4.3 FINAL Tamanna noel [address] [id number] 0 Phone: () - 02/11 CMP Alkal ine phosp hatas e U/L 46.0 116.0 53 FINAL Tamanna noel [address] [id number] 0 Phone: () - 02/11 CMP ALT/S GPT U/L 7.0 40.0 14 FINAL Tamanna noel [address] [id number] 0 Phone: () - 02/11 CMP AST/S GOT U/L 13.0 40.0 22 FINAL Tamanna noel [address] [id number] 0 Phone: () - 02/11 CMP BUN mg/dL 9.0 23.0 7 Low FINAL Tamanna noel [address] [id number] 0 Phone: () - 02/11 CMP Calci um mg/dL 8.7 10.4 9.6 FINAL Tamanna noel [address] [place] [id number] 0 Phone: () - 02/11 CMP Chlor sathish mmol/L 96.0 114.0 91 Low FINAL Tamanna noel [address] [id number] 0 Phone: () - 02/11 CMP CO2 mmol/L 20.0 31.0 26 FINAL Tamanna Peters [address] [id number] 0 Phone: () - 02/11 CMP Creat inine mg/dL 0.5 1.2 1.03 FINAL Tamanna Peters [address] [id number] 0 Phone: () - 02/11 CMP GFR estim ate ml/min /1.73m ^2 54.5 Low GFR is calculate d using the CKD-EPI equation. FINAL Tamanna Peters [address] [phone] 0 Phone: () - 02/11 CMP Gluco se mg/dL 73.0 126.0 97 [facility] Tamanna Peters [address] [id number] 0 Phone: () - 02/11 CMP Potas sium mmol/L 3.5 5.1 4.5 [facility] Tamanna Peters [address] [id number] 0 Phone: () - 02/11 CMP Sodiu m mmol/L 136.0 145.0 129 Low [facility] Tamanna noel [address] [id number] 0 Phone: () - 02/11 CMP Bilir ubin, total mg/dL 0.3 1.2 0.4 [facility] Tamanna noel [address] [id number] 0 Phone: () - 02/11 CMP Total prote in g/dL 5.7 8.2 6.6 [facility] Tamanna Peters [place] [address] [facility] [id number] 0 Phone: () - 02/11 CA 125 panel CA 125 UNITS/ ML 0.0 34.0 8.70 Test performed at [facility] on a [employer] 2000 Immunoass ay Analyzer that uses an immunoenz ymometric sandwich assay for analysis. Patient testing should not be performed using multiple methoddanelle soto due to analytica l variation seen between test methoddanelle soto. FINAL Tamanna noel [facility] - [place], [address] [facility] [address] [facility] [phone] 0 Phone: () - 02/11 iSTAT creat inine panel Creat inine , iSTAT mg/dl 0.6 1.3 1.3 FINAL Tamanna noel [facility] [place], [address] 200 [facility] [place] [id number] 0 Phone: () - 02/11 iSTAT creat inine panel GFR estim ate ml/min /1.73m ^2 41.2 Low GFR is calculate d using the CKD-EPI equation. FINAL Tamanna noel [facility] [place], [address] [place] [id number] 0 Phone: () - 02/11 [facility] other lab See final finisher forging dies d 05/23 CBC w/ auto diff WBC K/uL 3.0 8.9 8.9 FINAL Harper noel [facility] [place], [address] 200 [place] [id number] 0 Phone: () - 05/23 CBC w/ auto diff HGB g/dL 11.3 15.2 15.7 High FINAL Harper noel [facility] [place], [address] [place] [address] [address] [place] [id number] 0 Phone: () - 05/23 CBC w/ auto diff PLT K/uL 113.0 364.0 220 FINAL Harper noel [facility] [place], [address] [place] [address] [address] [place] [id number] 0 Phone: () - 05/23 CBC w/ auto diff Avtar # (ANC) K/uL 1.6 6.6 5.5 FINAL Harper noel [facility] - [place], [address] [place] [address] [address] [place] [id number] 0 Phone: () - 05/23 CBC w/ auto diff Avtar % % 43.0 74.0 62.5 FINAL Harper noel [facility] [place], [address] [place] [address] [address] [place] [id number] 0 Phone: () - 05/23 CBC w/ auto diff IG % % 0.0 0.5 0.5 FINAL Harper noel [facility] [place], [address] [place] [address] [address] [place] [id number] 0 Phone: () - 05/23 CBC w/ auto diff IG # K/uL 0.0 0.03 0.04 High FINAL Harper noel [facility] [place], [address] [place] [address] [address] [place] [id number] 0 Phone: () - 05/23 CBC w/ auto diff LY % % 14.0 41.0 22.5 FINAL Harper noel [facility] [place], [address] [place] [address] [address] [place] [id number] 0 Phone: () - 05/23 CBC w/ auto diff MO % % 6.0 15.0 8.0 FINAL Harper noel [facility] [place], [address] [place] [address] [address] [place] [id number] 0 Phone: () - 05/23 CBC w/ auto diff EO % % 0.0 7.0 5.9 FINAL Harper noel [facility] - [place], [address] [place] [address] [address] [place] [id number] 0 Phone: () - 05/23 CBC w/ auto diff BA % % 0.0 2.0 0.6 FINAL Harper noel [facility] [place], [address] [place] [address] [address] [place] [id number] 0 Phone: () - 05/23 CBC w/ auto diff LY # K/uL 0.4 3.6 2.0 FINAL [facility] [place] [facility] [place], [address] [place] [id number] 0 Phone: () - 05/23 CBC w/ auto diff MO # K/uL 0.2 1.3 0.7 FINAL Harper noel [facility] - [place], [address] [place] [id number] 0 Phone: () - 05/23 CBC w/ auto diff EO # K/uL 0.0 0.6 0.5 FINAL Harper noel [facility] - [place], [address] [place] [id number] 0 Phone: () - 05/23 CBC w/ auto diff BA # K/uL 0.0 0.2 0.1 FINAL Harper noel [facility] - [place], [address] [place] [id number] 0 Phone: () - 05/23 CBC w/ auto diff NRBC % #/100W BC 0.0 0.2 0.0 FINAL Harper noel [facility] - [place], [address] [place] [id number] 0 Phone: () - 05/23 CBC w/ auto diff RBC M/uL 3.9 5.1 4.85 [facility] [place], [address] [place] [phone] Phone: () - 05/23 CBC w/ auto diff HCT % 35.0 48.0 47.1 [facility] [place], [address] [place] [phone] Phone: () - 05/23 CBC w/ auto diff MCV fL 80.0 104.0 97.1 [facility] [place], [address] [place] [address] [address] [place] [phone] 0 Phone: () - 05/23 CBC w/ auto diff MCH pg 26.0 35.0 32.4 [facility] [place], [address] [place] [phone] 0 Phone: () - 05/23 CBC w/ auto diff MCHC g/dL 30.0 35.0 33.3 FINAL Harper noel [facility], [address] [place] [address] 200 [facility] [place] [phone] 0 Phone: () - 05/23 CBC w/ auto diff MPV fL 9.5 13.4 9.1 Low FINAL Harper noel [facility], [address] [place] [address] 200 [facility] [place] [phone] 0 Phone: () - 05/23 CBC w/ auto diff RDW % 11.4 16.1 13.00 FINAL Harper noel [facility], [address] 200 [facility] [phone] 0 Phone: () - 05/23 CMP Album in g/dL 3.2 5.2 4.6 [facility] [address] [facility] [address] [place] [phone] Phone: () - 05/23 CMP Alkal ine phosp hatas e U/L 46.0 116.0 58 [facility] [address] [phone] 0 Phone: () - 05/23 CMP ALT/S GPT U/L 7.0 40.0 11 [place]AL [place] [address] [address] [facility] [address] [phone] Phone: () - 05/23 CMP AST/S GOT U/L 13.0 40.0 23 FINAL Harper Wheeler [place] [address] [address] [facility] [address] [phone] 0 Phone: () - 05/23 CMP BUN mg/dL 9.0 23.0 15 FINAL [place] [address] [address] [facility] [address] [place] [address] [phone] 0 Phone: () - 05/23 CMP Calci um mg/dL 8.7 10.4 10.1 FINAL Harper noel [place] [address] [phone] 0 Phone: () - 05/23 CMP Chlor sathish mmol/L 96.0 114.0 88 Low FINAL Harper noel [place] [address] [phone] 0 Phone: () - 05/23 CMP CO2 mmol/L 20.0 31.0 29 The expected total allowable error for CO2 is 5.6%. We have seen up to 10% differenc e in values if reported at the end of the 96 hour stability window. Please consider the clinical significa nce of a 2.0-2.5 mmol/L lower reported CO2 value if reported at the end of the 96 hour stability window. FINAL Harper noel [place] [address] [phone] 0 Phone: () - 05/23 CMP Creat inine mg/dL 0.5 1.2 0.97 FINAL [place] [address] [phone] 0 Phone: () - 05/23 CMP GFR estim ate ml/min /1.73m ^2 58.5 Low GFR is calculate d using the CKD-EPI equation. FINAL Harper Wheeler [place] [address] [phone] 0 Phone: () - 05/23 CMP Gluco se mg/dL 73.0 126.0 72 Low FINAL [place] [address] [phone] 0 Phone: () - 05/23 CMP Potas sium mmol/L 3.5 5.1 4.8 FINAL [place] [address] [phone] 0 Phone: () - 05/23 CMP Sodiu m mmol/L 136.0 145.0 129 Low FINAL [place] [address] [place] [phone] 0 Phone: () - 05/23 CMP Bilir ubin, total mg/dL 0.3 1.2 0.3 FINAL Harper noel [facility], [address] [facility] [address] [facility] [phone] 0 Phone: () - 05/23 CMP Total prote in g/dL 5.7 8.2 7.3 [facility] [address] [facility] 100 [facility] [phone] 0 Phone: () - 05/23 CA 125 panel CA 125 UNITS/ ML 0.0 34.0 7.00 Test performed at [facility] on a [employer] 2000 Immunoass ay Analyzer that uses an immunoenz ymometric sandwich assay for analysis. Patient testing should not be performed using multiple methodolo gies due to analytica l variation seen between test methodolo gies. [facility], [address] [facility] 100 [facility] [phone] 0 Phone: () - 05/23 [facility] other lab See final finisher forging dies d 08/11 [facility] other lab See final finisher forging dies d 11/10 [facility] other lab See final finisher forging dies d 11/14 [facility] other lab See final finisher forging dies d 11/16 [facility] other lab See final finisher forging dies d 02/17 [facility] other lab See final finisher forging dies d 03/11 [facility] other lab See final finisher forging dies d 03/24 [facility] other lab See final finisher forging dies d 04/07 [facility] other lab See final finisher forging dies d 05/18 CA 125 panel CA 125 UNITS/ ML 0.0 34.0 9.50 Test performed at [facility] on a [employer] 2000 Immunoass ay Analyzer that uses an immunoenz ymometric sandwich assay for analysis. Patient testing should not be performed using multiple methodolo gies due to analytica l variation seen between test methodolo gies. FINAL Harper noel [facility], [address] [facility] 100 [facility] [phone] 0 Phone: () - 11/06 [facility] other lab See final finisher forging dies d 11/14 CA 125 panel CA 125 UNITS/ ML 0.0 34.0 12.60 Test performed at [facility] on a [employer] 2000 Immunoass ay Analyzer that uses an immunoenz ymometric sandwich assay for analysis. Patient testing should not be performed using multiple methodolo gies due to analytica l variation seen between test methodolo gies. FINAL Harper Wheeler [facility] [place], [address] [facility] [address] [facility] [phone] 0 Phone: () - 02/20 [facility] other lab See final finisher forging dies d 05/23 CA 125 panel CA 125 UNITS/ ML 0.0 34.0 10.30 Test performed at [facility] on a [employer] 2000 Immunoass ay Analyzer that uses an immunoenz ymometric sandwich assay for analysis. Patient testing should not be performed using multiple methodolo gies due to analytica l variation seen between test methodolo gies. FINAL Pippa worthington [facility] [place], [address] [facility] [address] [facility] [phone] 0 Phone: () - 09/04 [facility] other lab See final finisher forging dies d 09/07 CA 125 panel CA 125 UNITS/ ML 0.0 34.0 9.80 Test performed at [facility] on a [employer] 2000 Immunoass ay Analyzer that uses an immunoenz ymometric sandwich assay for analysis. Patient testing should not be performed using multiple methodolo gies due to analytica l variation seen between test methodolo gies. FINAL Theresa worthington [facility] [place], [address] [facility] [address] [facility] [phone] 0 Phone: () - 03/17 CA 125 panel CA 125 U/ML 0.0 35.0 12.40 Test performed at [facility] on a [employer] 7600 Immunoass ay Analyzer that uses an immunomet negro immunoass ay technique . Patient testing should not be performed using multiple methodolo gies due to analytica l variation seen between test methodolo gies. FINAL Theresa Alvares [facility] [place], [address] [facility] [phone] 0 09/15 CA 125 panel CA 125 U/ML 0.0 35.0 8.60 Test performed at [facility] on a [employer] 7600 Immunoass ay Analyzer that uses an immunomet negro immunoass ay technique . Patient testing should not be performed using multiple methodolo gies due to analytica l variation seen between test methodolo gies. FINAL Pippa worthington * [facility] , [address] [facility] [address] [facility] [phone] 0 03/17 CA 125 panel CA 125 U/ML 0.0 35.0 8.90 Test performed at [facility] on a [employer] 7600 Immunoass ay Analyzer that uses an immunomet negro immunoass ay technique . Patient testing should not be performed using multiple methodolo gies due to analytica l variation seen between test methodolo gies. 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 invest IV intrave nous 480.0 [...] hernia Active Vital Signs Date Type Value 11/24/2019 Height 64.50 11/24/2019 Respiratory Rate 16.00 11/24/2019 Pain Scale 0.00 11/24/2019 Weight 211.00 11/24/2019 Intravascular Systolic 120 11/24/2019 Intravascular Diastolic 70 11/24/2019 BSA 2.01 11/24/2019 Body Temperature 98.00 11/24/2019 Heart Beat 81.00 11/24/2019 Oxygen Saturation 93.00 11/24/2019 BMI 35.66 12/22/2019 Weight 215.00 12/22/2019 Body Temperature 98.20 12/22/2019 Heart Beat 80.00 12/22/2019 Respiratory Rate 22.00 12/22/2019 BSA 2.03 12/22/2019 Intravascular Systolic 142 12/22/2019 Intravascular Diastolic 84 12/22/2019 Pain Scale 0.00 12/22/2019 Height 64.50 12/22/2019 BMI 36.33 12/22/2019 Oxygen Saturation 95.00 01/19/2020 Intravascular Systolic 140 01/19/2020 Intravascular Diastolic 82 01/19/2020 Body Temperature 98.60 01/19/2020 Heart Beat 86.00 01/19/2020 Oxygen Saturation 96.00 01/19/2020 BSA 2.05 01/19/2020 Respiratory Rate 16.00 01/19/2020 Pain Scale 0.00 01/19/2020 Weight 221.00 01/19/2020 BMI 37.35 01/19/2020 Height 64.50 02/16/2020 BMI 38.02 02/16/2020 Respiratory Rate 14.00 02/16/2020 Pain Scale 0.00 02/16/2020 Weight 225.00 02/16/2020 Height 64.50 02/16/2020 Body Temperature 98.90 02/16/2020 Heart Beat 79.00 02/16/2020 Oxygen Saturation 93.00 02/16/2020 Intravascular Systolic 144 02/16/2020 Intravascular Diastolic 80 02/16/2020 BSA 2.07 03/15/2020 Pain Scale 0.00 03/15/2020 Intravascular Systolic 162 03/15/2020 Intravascular Diastolic 90 03/15/2020 Body Temperature 95.80 03/15/2020 Heart Beat 68.00 03/15/2020 Respiratory Rate 18.00 03/15/2020 BSA 2.07 03/15/2020 Intravascular Systolic 188 03/15/2020 Intravascular Diastolic 100 03/15/2020 Weight 225.00 03/15/2020 Height 64.50 03/15/2020 BMI 38.02 03/15/2020 Oxygen Saturation 94.00 04/12/2020 BMI 38.43 04/12/2020 Height 64.50 04/12/2020 Weight 227.40 04/12/2020 Intravascular Systolic 128 04/12/2020 Intravascular Diastolic 74 04/12/2020 BSA 2.08 04/12/2020 Heart Beat 91.00 04/12/2020 Body Temperature 98.00 04/12/2020 Pain Scale 0.00 04/12/2020 Respiratory Rate 16.00 04/12/2020 Oxygen Saturation 98.00 05/10/2020 BSA 2.06 05/10/2020 BMI 37.86 05/10/2020 Weight 224.00 05/10/2020 Pain Scale 0.00 05/10/2020 Respiratory Rate 16.00 05/10/2020 Height 64.50 05/10/2020 Intravascular Systolic 152 05/10/2020 Intravascular Diastolic 84 05/10/2020 Oxygen Saturation 93.00 05/10/2020 Body Temperature 97.60 05/10/2020 Heart Beat 67.00 06/07/2020 Body Temperature 98.20 06/07/2020 Heart Beat 75.00 06/07/2020 Respiratory Rate 18.00 06/07/2020 Oxygen Saturation 91.00 06/07/2020 Intravascular Systolic 134 06/07/2020 Intravascular Diastolic 82 06/07/2020 Pain Scale 0.00 06/07/2020 Weight 213.80 06/07/2020 Height 64.50 06/07/2020 BMI 36.13 06/07/2020 BSA 2.02 07/05/2020 Pain Scale 0.00 07/05/2020 Weight 224.00 07/05/2020 Height 64.50 07/05/2020 BMI 37.86 07/05/2020 BSA 2.06 07/05/2020 Respiratory Rate 18.00 07/05/2020 Heart Beat 71.00 07/05/2020 Body Temperature 98.00 07/05/2020 Oxygen Saturation 91.00 07/05/2020 Intravascular Systolic 128 07/05/2020 Intravascular Diastolic 70 08/02/2020 Oxygen Saturation 90.00 08/02/2020 Heart Beat 76.00 08/02/2020 Body Temperature 96.20 08/02/2020 Intravascular Systolic 122 08/02/2020 Intravascular Diastolic 64 08/02/2020 BSA 2.06 08/02/2020 BMI 37.52 08/02/2020 Weight 222.00 08/02/2020 Pain Scale 0.00 08/02/2020 Respiratory Rate 14.00 08/02/2020 Height 64.50 08/30/2020 BMI 37.69 08/30/2020 Weight 223.00 08/30/2020 Pain Scale 0.00 08/30/2020 Respiratory Rate 14.00 08/30/2020 BSA 2.06 08/30/2020 Body Temperature 96.80 08/30/2020 Heart Beat 80.00 08/30/2020 Oxygen Saturation 90.00 08/30/2020 Height 64.50 08/30/2020 Intravascular Systolic 140 08/30/2020 Intravascular Diastolic 80 09/27/2020 BSA 2.06 09/27/2020 Respiratory Rate 16.00 09/27/2020 Oxygen Saturation 94.00 09/27/2020 Intravascular Systolic 130 09/27/2020 Intravascular Diastolic 80 09/27/2020 Pain Scale 0.00 09/27/2020 Weight 224.00 09/27/2020 Height 64.50 09/27/2020 BMI 37.86 09/27/2020 Body Temperature 96.90 09/27/2020 Heart Beat 66.00 10/25/2020 Oxygen Saturation 80.00 10/25/2020 Intravascular Systolic 132 10/25/2020 Intravascular Diastolic 78 10/25/2020 Body Temperature 97.80 10/25/2020 Heart Beat 71.00 10/25/2020 BSA 2.09 10/25/2020 Pain Scale 0.00 10/25/2020 Weight 230.20 10/25/2020 Height 64.50 10/25/2020 BMI 38.90 10/25/2020 Respiratory Rate 16.00 11/22/2020 BMI 37.79 11/22/2020 BSA 2.06 11/22/2020 Height 64.50 11/22/2020 Weight 223.60 11/22/2020 Pain Scale 0.00 11/22/2020 Intravascular Systolic 118 11/22/2020 Intravascular Diastolic 70 11/22/2020 Respiratory Rate 16.00 11/22/2020 Heart Beat 64.00 11/22/2020 Body Temperature 98.00 11/22/2020 Oxygen Saturation 92.00 02/11/2021 Respiratory Rate 16.00 02/11/2021 Pain Scale 0.00 02/11/2021 Weight 229.00 02/11/2021 Height 64.50 02/11/2021 Intravascular Systolic 114 02/11/2021 Intravascular Diastolic 60 02/11/2021 BSA 2.08 02/11/2021 Body Temperature 98.20 02/11/2021 Heart Beat 72.00 02/11/2021 Oxygen Saturation 86.00 02/11/2021 BMI 38.70 05/23/2021 Height 64.50 05/23/2021 Weight 230.00 05/23/2021 Pain Scale 0.00 05/23/2021 Respiratory Rate 14.00 05/23/2021 Intravascular Systolic 122 05/23/2021 Intravascular Diastolic 68 05/23/2021 Body Temperature 98.00 05/23/2021 Oxygen Saturation 84.00 05/23/2021 Heart Beat 71.00 05/23/2021 BSA 2.09 05/23/2021 BMI 38.87 08/11/2021 Body Temperature 98.20 08/11/2021 Heart Beat 70.00 08/11/2021 Respiratory Rate 16.00 08/11/2021 Oxygen Saturation 95.00 08/11/2021 BSA 2.03 08/11/2021 Pain Scale 0.00 08/11/2021 Weight 216.20 08/11/2021 Height 64.50 08/11/2021 BMI 36.54 08/11/2021 Intravascular Systolic 130 08/11/2021 Intravascular Diastolic 74 11/14/2021 Body Temperature 98.50 11/14/2021 Heart Beat 66.00 11/14/2021 BSA 2.05 11/14/2021 BMI 37.35 11/14/2021 Height 64.50 11/14/2021 Weight 221.00 11/14/2021 Pain Scale 0.00 11/14/2021 Intravascular Systolic 108 11/14/2021 Intravascular Diastolic 62 11/14/2021 Oxygen Saturation 92.00 11/14/2021 Respiratory Rate 16.00 05/18/2022 Body Temperature 98.50 05/18/2022 BMI 38.94 05/18/2022 Height 64.50 05/18/2022 Weight 230.40 05/18/2022 BSA 2.09 05/18/2022 Intravascular Systolic 120 05/18/2022 Intravascular Diastolic 58 05/18/2022 Oxygen Saturation 95.00 05/18/2022 Respiratory Rate 16.00 05/18/2022 Heart Beat 68.00 05/18/2022 Pain Scale 0.00 11/14/2022 BSA 2.08 11/14/2022 BMI 38.36 11/14/2022 Height 64.50 11/14/2022 Weight 227.00 11/14/2022 Body Temperature 98.50 11/14/2022 Intravascular Systolic 130 11/14/2022 Intravascular Diastolic 70 11/14/2022 Oxygen Saturation 90.00 11/14/2022 Respiratory Rate 16.00 11/14/2022 Heart Beat 68.00 11/14/2022 Pain Scale 0.00 05/23/2023 BMI 37.86 05/23/2023 BSA 2.06 05/23/2023 Height 64.50 05/23/2023 Weight 224.00 05/23/2023 Pain Scale 0.00 05/23/2023 Intravascular Systolic 125 05/23/2023 Intravascular Diastolic 82 05/23/2023 Oxygen Saturation 95.00 05/23/2023 Respiratory Rate 16.00 05/23/2023 Heart Beat 62.00 05/23/2023 Body Temperature 97.80 09/07/2023 Body Temperature 98.30 09/07/2023 Heart Beat 66.00 09/07/2023 Respiratory Rate 16.00 09/07/2023 Oxygen Saturation 91.00 09/07/2023 BSA 2.07 09/07/2023 Pain Scale 0.00 09/07/2023 Weight 225.50 09/07/2023 Height 64.50 09/07/2023 BMI 38.11 09/07/2023 Intravascular Systolic 150 09/07/2023 Intravascular Diastolic 80 03/17/2024 Body Temperature 97.90 03/17/2024 Heart Beat 69.00 03/17/2024 Respiratory Rate 16.00 03/17/2024 Oxygen Saturation 95.00 03/17/2024 BSA 2.05 03/17/2024 Pain Scale 0.00 03/17/2024 Weight 220.20 03/17/2024 Height 64.50 03/17/2024 BMI 37.21 03/17/2024 Intravascular Systolic 104 03/17/2024 Intravascular Diastolic 70 09/15/2024 Body Temperature 98.10 09/15/2024 Heart Beat 64.00 09/15/2024 BSA 2.10 09/15/2024 BMI 39.46 09/15/2024 Height 64.50 09/15/2024 Weight 233.50 09/15/2024 Pain Scale 0.00 09/15/2024 Intravascular Systolic 112 09/15/2024 Intravascular Diastolic 64 09/15/2024 Oxygen Saturation 92.00 09/15/2024 Respiratory Rate 16.00 03/17/2025 Body Temperature 98.30 03/17/2025 BMI 38.62 03/17/2025 Height 64.50 03/17/2025 Weight 228.50 03/17/2025 BSA 2.08 03/17/2025 Intravascular Systolic 128 03/17/2025 Intravascular Diastolic 80 03/17/2025 Oxygen Saturation 91.00 03/17/2025 Respiratory Rate 16.00 03/17/2025 Heart Beat 66.00 03/17/2025 Pain Scale 0.00
--- OUTSIDE RECORDS SUMMARY | 2025-07-19 23:32 | XMS_ITS ---
Author Name Interface, [id number] lity Address [address] [address] [facility] Address [address] [address] Allergies and Adverse Reactions Medication/Group Name Reaction [...] BOOKED 08/11/2021 APPOINTMENT RC - 605 ARM LILA W/RC - STUDY PT, CAL BOOKED 05/23/2021 APPOINTMENT RCPD - 605 PORT DRAW/ STUDY - 605 PORT DRAW/ STUDY 05/23/2021 APPOINTMENT RCPD - 605 PORT DRAW/ STUDY - 605 PORT DRAW/ STUDY 05/23/2021 LAB_ORDER CBC w/ auto diff 05/23/2021 [...] Visit LAB 15 MIN Encounters Date Name 05/23/2021 Candidal vulvovagini tis (disorder) 05/23/2021 Congestive heart emilie lure (disorder) 05/23/2021 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 05/23/2021 Umbilical hernia Immunizations Date Name Route Dose Instructions Refusal Reason Stat us Flu vaccine - Adult Comp leted Covid-19 vaccine (Pfizer) Completed Covid-19 vaccine (Pfizer) Completed Flu vaccine - Adult Comp leted Covid-19 vaccine (Pfizer) Completed Diagnostic Results Date Type Test Units Lower Limit Upper Limit Result Flag Comments Status Ordered By Specimen Source Lab Address 05/23 CBC w/ auto diff WBC K/uL 3.0 8.9 8.9 FINAL Harper Wheeler [facility], [address] [place] [id number] 0 Phone: () - 05/23 CBC w/ auto diff HGB g/dL 11.3 15.2 15.7 High FINAL [facility] [place] [facility], [address] [place] [address] [address] [place] [id number] 0 Phone: () - 05/23 CBC w/ auto diff PLT K/uL 113.0 364.0 220 FINAL Harper Peters [facility] [place], [address] [place] [address] [address] [place] [id number] 0 Phone: () - 05/23 CBC w/ auto diff Avtar # (ANC) K/uL 1.6 6.6 5.5 FINAL Harper Mcginnisot [facility] - [place], [address] [place] [address] [address] [place] [id number] 0 Phone: () - 05/23 CBC w/ auto diff Avtar % % 43.0 74.0 62.5 FINAL Harper Mcginnisot [facility] - [place], [address] [place] [address] [address] [place] [id number] 0 Phone: () - 05/23 CBC w/ auto diff IG % % 0.0 0.5 0.5 FINAL Harper Mcginnisot [facility] - [place], [address] [place] [address] [address] [place] [id number] 0 Phone: () - 05/23 CBC w/ auto diff IG # K/uL 0.0 0.03 0.04 High FINAL Harper Mcginnisot [facility] - [place], [address] [place] [address] [address] [place] [id number] 0 Phone: () - 05/23 CBC w/ auto diff LY % % 14.0 41.0 22.5 FINAL Harper Mcginnisot [facility] - [place], [address] [place] [address] [address] [place] [id number] 0 Phone: () - 05/23 CBC w/ auto diff MO % % 6.0 15.0 8.0 FINAL Harper Mcginnisot [facility] - [place], [address] [place] [address] [address] [place] [id number] 0 Phone: () - 05/23 CBC w/ auto diff EO % % 0.0 7.0 5.9 FINAL Harper Mcginnisot [facility] - [place], [address] [place] [address] [address] [place] [id number] 0 Phone: () - 05/23 CBC w/ auto diff BA % % 0.0 2.0 0.6 FINAL Harper Mcginnisot a [facility] - [place], [address] [place] [address] [address] [place] [id number] 0 Phone: () - 05/23 CBC w/ auto diff LY # K/uL 0.4 3.6 2.0 FINAL Harper noel [facility] - [place], [address] [place] [address] [address] [place] [id number] 0 Phone: () - 05/23 CBC w/ auto diff MO # K/uL 0.2 1.3 0.7 FINAL Harper noel [facility] - [place], [address] [place] [address] [address] [place] [id number] 0 Phone: () - 05/23 CBC w/ auto diff EO # K/uL 0.0 0.6 0.5 FINAL Harper noel [facility] - [place], [address] [place] [address] [address] [place] [id number] 0 Phone: () - 05/23 CBC w/ auto diff BA # K/uL 0.0 0.2 0.1 FINAL Harper noel [facility] - [place], [address] [place] [address] [address] [place] [id number] 0 Phone: () - 05/23 CBC w/ auto diff NRBC % #/100W BC 0.0 0.2 0.0 FINAL Harper noel [facility] - [place], [address] [place] [address] [address] [place] [id number] 0 Phone: () - 05/23 CBC w/ auto diff RBC M/uL 3.9 5.1 4.85 FINAL Harper noel [facility] - [place], [address] [place] [address] [address] [place] [id number] 0 Phone: () - 05/23 CBC w/ auto diff HCT % 35.0 48.0 47.1 FINAL Harper noel [facility] - [place], [address] [place] [address] [address] [place] [id number] 0 Phone: () - 05/23 CBC w/ auto diff MCV fL 80.0 104.0 97.1 FINAL Harper noel [facility] - [place], [address] [place] [id number] 0 Phone: () - 05/23 CBC w/ auto diff MCH pg 26.0 35.0 32.4 FINAL Harper noel [facility] - [place] [facility], [address] [place] [address] 200 [place] [id number] 0 Phone: () - 05/23 CBC w/ auto diff MCHC g/dL 30.0 35.0 33.3 FINAL Harper noel [facility] [place] [facility], [address] [place] [address] 200 [place] [id number] 0 Phone: () - 05/23 CBC w/ auto diff MPV fL 9.5 13.4 9.1 Low FINAL [facility], [address] [place] [address] 200 [place] [id number] 0 Phone: () - 05/23 CBC w/ auto diff RDW % 11.4 16.1 13.00 FINAL Harper noel Oncology [facility], [address] [place] [address] 200 [place] [id number] 0 Phone: () - 05/23 CMP Album in g/dL 3.2 5.2 4.6 FINAL Harper Mcginnis bert [facility], [address] [id number] 0 Phone: () - 05/23 CMP Alkal ine phosp hatas e U/L 46.0 116.0 58 [facility] [address] [facility] [address] [place] [id number] Phone: () - 05/23 CMP ALT/S GPT U/L 7.0 40.0 11 [facility] [address] [id number] 0 Phone: () - 05/23 CMP AST/S GOT U/L 13.0 40.0 23 [facility] [address] [id number] 0 Phone: () - 05/23 CMP BUN mg/dL 9.0 23.0 15 FINAL Harper noel [facility], [address] [facility] [id number] 0 Phone: () - 05/23 CMP Calci um mg/dL 8.7 10.4 10.1 FINAL Harper noel [facility], [address] [facility] [id number] 0 Phone: () - 05/23 CMP Chlor sathish mmol/L 96.0 114.0 88 Low [facility] [address] [facility] [id number] 0 Phone: () - 05/23 CMP CO2 [...] the 96 hour stability window. [facility] [address] [place] [address] [id number] Phone: () - 05/23 CMP Creat inine mg/dL 0.5 1.2 0.97 FINAL Harper Wheeler [facility], [address] [place] [address] [id number] Phone: () - 05/23 CMP GFR estim ate ml/min /1.73m ^2 58.5 Low GFR is calculate d using the CKD-EPI equation. FINAL Harper Wheeler [facility], [address] [facility] [id number] 0 Phone: () - 05/23 CMP Gluco se mg/dL 73.0 126.0 72 Low [facility], [address] [facility] [id number] 0 Phone: () - 05/23 CMP Potas sium mmol/L 3.5 5.1 4.8 FINAL Harper Wheeler [facility], [address] [facility] [id number] 0 Phone: () - 05/23 CMP Sodiu m mmol/L 136.0 145.0 129 Low FINAL Harper noel [facility], [address] [facility] [address] [facility] [id number] 0 Phone: () - 05/23 CMP Bilir ubin, total mg/dL 0.3 1.2 0.3 [facility] [address] [facility] [address] [facility] [id number] 0 Phone: () - 05/23 CMP Total prote in g/dL 5.7 8.2 7.3 [facility], [address] [facility] [address] [facility] [id number] 0 Phone: () - 05/23 CA 125 panel CA 125 UNITS/ ML 0.0 34.0 7.00 Test performed at [facility] on a u[employer] 2000 Immunoass ay Analyzer that uses an immunoenz ymometric sandwich assay for analysis. Patient testing should not be performed using multiple methodolo gies due to analytica l variation seen between test methodolo gies. FINAL Harper Mcginnis bert [facility], [address] [facility] 100 [facility] [id number] 0 Phone: () - 05/23 [facility] other lab See nursing home physician d 08/11 [facility] other lab See nursing home physician d 11/10 [facility] other lab See nursing home physician d 11/14 [facility] other lab See nursing home physician d 11/16 [facility] other lab See nursing home physician d 02/17 [facility] other lab See nursing home physician d 03/11 [facility] other lab See nursing home physician d 03/24 [facility] other lab See nursing home physician d 04/07 [facility] other lab See nursing home physician d 05/18 CA 125 panel CA 125 UNITS/ ML 0.0 34.0 9.50 Test performed at [facility] on a u[employer]ads 2000 Immunoass ay Analyzer that uses an immunoenz ymometric sandwich assay for analysis. Patient testing should not be performed using multiple methodolo gies due to analytica l variation seen between test methodolo gies. FINAL Harper Peters a Oncology - [place], [address] [facility] [id number] 0 Phone: () - 11/06 [facility] other lab See nursing home physician d 11/14 CA 125 panel CA 125 UNITS/ ML 0.0 34.0 12.60 Test performed at [facility] on a u[employer]ads 2000 Immunoass ay Analyzer that uses an immunoenz ymometric sandwich assay for analysis. Patient testing should not be performed using multiple methodolo gies due to analytica l variation seen between test methodolo gies. FINAL Harper Peters a Oncology - [facility] [address] [facility] [id number] 0 Phone: () - 02/20 [facility] other lab See nursing home physician d 05/23 CA 125 panel CA 125 UNITS/ ML 0.0 34.0 10.30 Test performed at [facility] on a ufindads 2000 Immunoass ay Analyzer that uses an immunoenz ymometric sandwich assay for analysis. Patient testing should not be performed using multiple methodolo gies due to analytica l variation seen between test methodolo gies. FINAL Pippa worthington [employer] a Oncology - [facility] [address] [facility] [id number] 0 Phone: () - 09/04 [facility] other lab See nursing home physician d 09/07 CA 125 panel CA 125 UNITS/ ML 0.0 34.0 9.80 Test performed at [facility] on a u[employer]ads 2000 Immunoass ay Analyzer that uses an immunoenz ymometric sandwich assay for analysis. Patient testing should not be performed using multiple methodolo gies due to analytica l variation seen between test methodolo gies. FINAL Theresa worthington [employer] a Oncology - [place], [address] [facility] [id number] 0 Phone: () - 03/17 CA 125 panel CA 125 U/ML 0.0 35.0 12.40 Test performed at [facility] on a [employer]0 Immunoass ay Analyzer that uses an immunomet negro immunoass ay technique . Patient testing should not be performed using multiple methodolo gies due to analytica l variation seen between test methodolo gies. FINAL Theresa Bollinge r * [place] [facility] [place], [facility] [address] [id number] 0 09/15 CA 125 panel CA 125 U/ML 0.0 35.0 8.60 Test performed at [facility] on a [employer] 7600 Immunoass ay Analyzer that uses an immunomet negro immunoass ay technique . Patient testing should not be performed using multiple methodolo gies due to analytica l variation seen between test methodolo gies. FINAL Pippa Anne Marie worthington * [facility] , [facility] [address] [facility] [id number] 0 03/17 CA 125 panel CA 125 U/ML 0.0 35.0 8.90 Test performed at [facility] on a [employer] 7600 Immunoass ay Analyzer that uses an immunomet negro immunoass ay technique . Patient testing should not be performed using multiple methodolo gies due to analytica l variation seen between test methodolo gies. FINAL Pippa Anne Marie r [facility] , [facility] [address] [id number] [phone] Medications Date Name Route Dose Frequency [...] malignant neoplasm of fallopian tube (disorder) 07/05 [facility]-[id number] invest IV intrave nous 480.0 mg [...] hernia Active Vital Signs Date Type Value 05/23/2021 Body Temperature 98.00 05/23/2021 Height 64.50 05/23/2021 Oxygen Saturation 84.00 05/23/2021 Heart Beat 71.00 05/23/2021 BSA 2.09 05/23/2021 Respiratory Rate 14.00 05/23/2021 Pain Scale 0.00 05/23/2021 Weight 230.00 05/23/2021 BMI 38.87 05/23/2021 Intravascular Systolic 122 05/23/2021 Intravascular Diastolic 68 08/11/2021 Respiratory Rate 16.00 08/11/2021 Heart Beat 70.00 08/11/2021 Body Temperature 98.20 08/11/2021 Oxygen Saturation 95.00 08/11/2021 Intravascular Systolic 130 08/11/2021 Intravascular Diastolic 74 08/11/2021 BSA 2.03 08/11/2021 BMI 36.54 08/11/2021 Height 64.50 08/11/2021 Weight 216.20 08/11/2021 Pain Scale 0.00 11/14/2021 Oxygen Saturation 92.00 11/14/2021 Body Temperature 98.50 11/14/2021 Heart Beat 66.00 11/14/2021 Respiratory Rate 16.00 11/14/2021 BSA 2.05 11/14/2021 Height 64.50 11/14/2021 Weight 221.00 11/14/2021 Pain Scale 0.00 11/14/2021 Intravascular Systolic 108 11/14/2021 Intravascular Diastolic 62 11/14/2021 BMI 37.35 05/18/2022 Body Temperature 98.50 05/18/2022 Heart Beat 68.00 05/18/2022 Respiratory Rate 16.00 05/18/2022 Oxygen Saturation 95.00 05/18/2022 Intravascular Systolic 120 05/18/2022 Intravascular Diastolic 58 05/18/2022 Pain Scale 0.00 05/18/2022 Weight 230.40 05/18/2022 Height 64.50 05/18/2022 BMI 38.94 05/18/2022 BSA 2.09 11/14/2022 BMI 38.36 11/14/2022 Height 64.50 11/14/2022 Weight 227.00 11/14/2022 Pain Scale 0.00 11/14/2022 BSA 2.08 11/14/2022 Oxygen Saturation 90.00 11/14/2022 Respiratory Rate 16.00 11/14/2022 Heart Beat 68.00 11/14/2022 Body Temperature 98.50 11/14/2022 Intravascular Systolic 130 11/14/2022 Intravascular Diastolic 70 05/23/2023 Body Temperature 97.80 05/23/2023 Heart Beat 62.00 05/23/2023 Respiratory Rate 16.00 05/23/2023 Oxygen Saturation 95.00 05/23/2023 Intravascular Systolic 125 05/23/2023 Intravascular Diastolic 82 05/23/2023 Pain Scale 0.00 05/23/2023 Weight 224.00 05/23/2023 Height 64.50 05/23/2023 BMI 37.86 05/23/2023 BSA 2.06 09/07/2023 BSA 2.07 09/07/2023 BMI 38.11 09/07/2023 Height 64.50 09/07/2023 Weight 225.50 09/07/2023 Pain Scale 0.00 09/07/2023 Intravascular Systolic 150 09/07/2023 Intravascular Diastolic 80 09/07/2023 Oxygen Saturation 91.00 09/07/2023 Respiratory Rate 16.00 09/07/2023 Body Temperature 98.30 09/07/2023 Heart Beat 66.00 03/17/2024 BMI 37.21 03/17/2024 Height 64.50 03/17/2024 Weight 220.20 03/17/2024 Pain Scale 0.00 03/17/2024 BSA 2.05 03/17/2024 Oxygen Saturation 95.00 03/17/2024 Respiratory Rate 16.00 03/17/2024 Heart Beat 69.00 03/17/2024 Body Temperature 97.90 03/17/2024 Intravascular Systolic 104 03/17/2024 Intravascular Diastolic 70 09/15/2024 Body Temperature 98.10 09/15/2024 Heart Beat 64.00 09/15/2024 Respiratory Rate 16.00 09/15/2024 Oxygen Saturation 92.00 09/15/2024 BSA 2.10 09/15/2024 Pain Scale 0.00 09/15/2024 Weight 233.50 09/15/2024 Height 64.50 09/15/2024 BMI 39.46 09/15/2024 Intravascular Systolic 112 09/15/2024 Intravascular Diastolic 64 03/17/2025 BMI 38.62 03/17/2025 Height 64.50 03/17/2025 Weight 228.50 03/17/2025 Pain Scale 0.00 03/17/2025 BSA 2.08 03/17/2025 Oxygen Saturation 91.00 03/17/2025 Respiratory Rate 16.00 03/17/2025 Heart Beat 66.00 03/17/2025 Body Temperature 98.30 03/17/2025 Intravascular Systolic 128 03/17/2025 Intravascular Diastolic 80
--- OUTSIDE RECORDS SUMMARY | 2025-07-19 23:32 | XMS_ITS | CCD ---
Author Name Interface, [id number] lity Address [address] [address] Organization [facility] Address [address] [place] [address] Care Team Providers Care Merchandising Execution Associate Name Role Phone Shilpa BASS, Annamarie Estrada MD, Theresa Hodges Unavailable Un available Allergies and Adverse Reactions Medication/Group Name Reaction Severity Date duloxetine HCl 03/17/2025 Care Plan Date Type Value 09/22/2025 APPOINTMENT LAB 15 MIN 09/22/2025 APPOINTMENT OV 30 MIN 09/17/2025 APPOINTMENT LAB 15 MIN 03/17/2025 APPOINTMENT OV 30 MIN 03/17/2025 APPOINTMENT LAB 15 MIN 11/11/2024 APPOINTMENT OUTSIDE TEST 5 M IN 09/15/2024 APPOINTMENT OV 30 MIN 09/15/2024 APPOINTMENT LAB 15 MIN 09/15/2024 LAB_ORDER CA 125 panel 09/17/2024 LAB_ORDER CT chest/abdomen /pelvis w/ contrast 11/13/2024 LAB_ORDER MRI breast w/ & w/o contrast 11/15/2024 LAB_ORDER MRI breast w/ & w/o contrast 03/15/2025 LAB_ORDER CT chest/abdomen /pelvis w/ contrast 03/17/2025 LAB_ORDER CA 125 panel 09/22/2025 LAB_ORDER CA 125 panel Reason for Visit LAB 15 MIN Encounters Date Name 09/22/2025 History of fallopian tube cancer 09/22/2025 History of fallopian tube cancer 09/22/2025 LAB 15 MIN 09/22/2025 OV 30 MIN Functional Status Date Name/Question Score/Answer 09/20/2018 Karnofsky performance status 100 10/02/2018 Karnofsky performance status 100 10/16/2018 Karnofsky performance status 100 11/01/2018 Karnofsky performance status 100 11/01/2018 Karnofsky performance status 100 11/15/2018 Karnofsky performance status 100 11/27/2018 Karnofsky performance status 100 12/27/2018 Karnofsky performance status 90 01/16/2018 Karnofsky performance status 100 01/22/2019 Karnofsky performance status 90 01/22/2019 Karnofsky performance status 90 02/19/2019 Karnofsky performance status 90 02/19/2019 Karnofsky performance status 90 03/19/2019 Karnofsky performance status 90 04/16/2019 Karnofsky performance status 90 05/14/2019 Karnofsky performance status 90 06/11/2018 Karnofsky performance status 100 06/11/2019 Karnofsky performance status 90 07/26/2018 Karnofsky performance status 100 08/23/2018 Karnofsky performance status 100 06/07/2020 ECOG performance status - grade 0 0 07/05/2020 ECOG performance status - grade 0 0 08/30/2020 Karnofsky performance status 90 10/25/2020 Karnofsky performance status 90 02/16/2020 ECOG performance status - grade 0 0 03/15/2020 ECOG performance status - grade 0 0 05/10/2020 ECOG performance status - grade 0 0 09/01/2019 ECOG performance status - grade 0 0 01/19/2020 ECOG performance status - grade 0 0 09/27/2020 Karnofsky performance status 90 08/02/2020 ECOG performance status - grade 0 0 11/22/2020 Karnofsky performance status 90 05/23/2021 ECOG performance status - grade 1 1 04/12/2020 ECOG performance status - grade 0 0 Disability Status [CUBS] 05/16/2025 Are you deaf, or do you have ser ious difficulty hearing? Yes 05/16/2025 Are you blind or do you have serious difficulty seeing, even when wearing glasses? No 05/16/2025 Because of a physica l, mental, or emotional condition, do you have serious difficulty concentrating, remembering, or making decisions? No 05/16/2025 Do you have serious difficulty w alking or climbing stairs? No 05/16/2025 Do you have difficulty dressing or bathing? No 05/16/2025 Because of a physica l, mental, or emotional condition, do you have difficulty doing errands alone such as visiting a physician's office or shopping? No Diagnostic Results Date Type Test Units Lower Limit Upper Limit Result Flag Comments Status Ordered By Specimen Source Lab Address 03/17 CA 125 panel CA 125 U/ML 0.0 35.0 8.90 Test performed at [facility] on a Hoppit0 Immunoass ay Analyzer that uses an immunomet negro immunoass ay technique . Patient testing should not be performed using multiple methodolo gies due to analytica l variation seen between test methoddanelle soto. FINAL Pippa Kenney r * [facility] , [address] [facility] [id number] 0 Medications Date Name Route Dose Frequency Instructions Start Date End Date Status Fill Status Indication 09/15 Carvedi lol Oral 12.0 mg active 03/17 Umeclid inium Inhaler 62.5 mcg/act uation active 03/17 Oxygen at night active 10/25 Amlodip ine Oral PO 1.0 tablet daily inactive 03/17 Dapagli flozin Oral active 09/07 Vit C,E-Zn- Copper- Lutein- Zeaxan Oral 250 mg-90 mg-40 mg-1 mg active 03/17 Furosem sathish Oral active 09/27 Atenolo l Oral by mouth 1.0 tablet BID inactive 05/19 Furosem sathish Oral orally 40.0 mg daily prn inactive 05/19 Atorvas tatin Oral orally 20.0 mg daily active 05/19 Varenic line Oral orally 1.0 mg daily inactive 05/19 Choleca lcifero l Oral orally 10.0 daily active 06/07 Losarta n Oral PO 1.0 tablet daily active 03/17 Atenolo l Oral inactive 12/21 Aspirin Oral PO 1.0 tablet daily active 07/04 Sodium Chlorid e Oral PO 1.0 TABLET (S) BID 05/14 inactive 07/04 Ibuprof en Oral PO 1.0 TABLET (S) Q8H PRN pain 2018 active 07/04 Simvast atin Oral PO 1.0 TABLET (S) daily 05/14 inactive 07/04 Calcium Citrate -Vitami n D3 Oral 315 mg-5 mcg (200 unit) PO 1.0 TABLET (S) daily 05/14 inactive 07/04 Lorazep am Oral PO 1.0 TABLET (S) Q4H PRN nausea 11/01 inactive 07/04 Gabapen tin Oral PO 1.0 CAPSUL E(S) TID 09/20 inactive Problems Diagnosis Status Date of Diagnosis Resolution Date Hyponatremia Active History of fallopian tube cancer Active Serum creatinine elevated Inactive Postmenopausal state (finding) Active Hypoxia Resolved Osteopenia Active Finding of urine microscopy - general (finding) Inactive Primary malignant neoplasm o f endometrium (disorder) Inactive BRCA2 gene mutation positive (finding) Active Screening for malignant neop lasm of cervix (procedure) Inactive Screening mammography (procedure) Inactive Adenocarcinoma, no subtype ( morphologic abnormality) Inactive Tachycardia (finding) Inactive 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, syste aneta arterial (disorder) Active Other long-term current use of drug therapy Active Body mass index (BMI) 33.0-33.9, adult Inactive Body mass index (BMI) 34.0-34.9, adult Inactive Body mass index (BMI) 37.0-37.9, adult Inactive Taste sense altered (finding) Inactive Loss of appetite (finding) Inactive Hyponatremia (disorder) Inactive Nausea (finding) Inactive Lymphadenopathy (disorder) Inactive Obesity (disorder) Active Tobacco dependence syndrome (disorder) Active 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 Finding of increased blood p ressure (finding) Inactive 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 BRCA2 positive gene mutation. High risk breast cancer screening. Ordered 11/15/2024 Physician Order MRI breast w/ & w/o contrast [place]. BRCA2 positive gene mutation. Ordered 03/15/[address] chest/abdomen /pelvis w/ contrast assess for disease. on study D/C 03/17/2025 Physician Order RTC SSIS ARCHITECT/PA Ordered 09/22/2025 Physician Order RTC SSIS ARCHITECT/PA Ordered Social History Date Name Value 03/17/2025 Smoking Status Current every da y smoker 03/17/2025 Sex Female Visits Date Type Value 09/22/2025 OV 30 MIN 09/22/2025 LAB 15 MIN 09/17/2025 LAB 15 MIN Vital Signs Date Type Value 09/15/2024 Body Temperature 98.10 09/15/2024 Heart Beat [...] Heart Beat 66.00 03/17/2025 Pain Scale 0.00 Notes Section * [employer] Follow-Up <html><head></head><body><div style=text-align:center><span class=clinicalNoteMacroWysiwyg id=[id number] macroname=&quo t;PracticeLetterhead spantype=macro title=#PracticeLetterhead><img src=data:image/png;base64,jALBTs4DQtrPDNGUSTqPNqQRGUDSTPVeCDDFQBG6C2nFRWHCLHBNG 1JHnm0w3PTKT BMjVV8KJNQlhxl0VMPHNOOLgHyHydDAEhTNXV4EVZRzIgjWCVcYJFVZVHec6D8IvVO9VqyZHgppudY6C lKlIyBSRSwgCkiTIvpQV HAQHLLjXoORHLovUjpAkJJpCPDE7EoxSw0ZRcpaM+u8/Icu5fpc8r01R67XzqyjmebxnEtERjBM2zeUt HAIOJyBHxnGrsIcK3MvL MN4jL/kFmxHHXzDaXXbECAmoWBEAASoDZYAVRVVwfQXv8YSyoXIj/sLMnKCUEzBY1fNe9HseGb2Ab7db EwCqEabxyVJmYNcj42BR rarTUUGy3wfFAGGuKnvoYDdEk7jM1jFsOfcDP5jdMLVusg66pfasbOF6ieYBId5k7UTo6malVg48eXQL fFlAfEg6U0hSoisRgDYO Lf5XOfR3kowqKm3vRiyy3uNCnMEXYbZuAtNlfkWVMkDmrA4mJ2uoo26nXYdY/AoAZgfo9JHa5gkv3Li7 6oQw1x/sABhrlu+/vpru f1725E/kECWnSvxPzyGf6nMFuIfbmvmHJVLBZMB+AdQYHAQBQQQrV7+EU0e+kNdMFuN46NVmrxlJv8Aa 28OWpB7Vemsz0+pSZPG0 t+xRx8a//8vLuqEJjJDXqUUt5+x3C3XBwdBd59r+1VpQQnHtwFYkA18sYyzfOr++/btVL9+felnmOsJF iDMdUdGRgYFBQVJ/wPPv SwVietGWciUFfWWVCuZI8Q9Cq3dp1/TO5SOrn4pOe+HcbdqzMXF3piBCGfbBEBzN4w4coobxcDmGH4f1 Xjtd37uL1SDyp2G348kB fZR0JLGMYwhHHVexcRkFz5imRo0pY63WIXoAjsRUZ+1ro58gJcUzPqhrE7fuLKn/wpWrFhB8+fPp/Xr1 3OgAjIPfLlFMd71gCBos qgyrNZB03OgZTyM10B/ijyGhwt8SzDMATVPlGVWyQ7hHzXlSFATkGIaYh5tm89dbZjhFeFkl7KbSHH49 FHyrHXXS9jqnx5UHnFHt nBpgiLRydBXVfMn8Mz54me5FPbXKhjOsQsasVuWB2u1/TQoTQan6yOgQq+4r54fjnzrCyWmmTVqDxW9J wXvWtGhIzLc60iBwWGLQ pCSb5mhfF3JpcV7Rg1ce2g+avq3TDNSKSRIhHUQBDvpCnXg69//ktWnEYCV7C3pthFZzSDpLRRNR7ZpI 4kOeP857pbjcpRwIZv16 skpGhD1U12cQe7z1i7pyv+gyYhIF9fevfnNn667Oq/ZxrjjIl6kiEMSqZrN4iVFVV9QECP9UBu7Azm9S pIioqLpu4+K9F12LtD4A W+gD2e+MnFFz6hGDU0VLl0V61P8hY8mS6F8n++W1+wQHGvGRq44EA7mwEPkciaJpJPGRLEAdzAaspp5z UuCMgv1gwP8xVaYGFGC1 d9+p1Uw26nPY0JrGwgJy4733b/IMNadTzO+UXTVpxZz712CNzBFy11BZsJCQbeGo4/m4ygbHd6HhOCTk 6EjfIxwRQzfsbAjuv29g g/IUYlCfTOUiaDHotOmmS1dSpN1FNl63MMp5fSsT3MCTyfQRcWRBsgpj55/MNAY/nN9G8eKVLkDCdzEF +cafn7+kq0TPgINlgRWX AH4BoGnoBQ5n11wn6ElCcXOA032K6FcoFBFTCSnaNU9uIQHRWbd4OwUptZRp5DbII2EOn30UuqEjvISS 6W/fi18nShjOhw74Bggj QSW4geZg6w/pUox7IBLXavEc7LD9beEC5iKnl9aiPaiIOIIu3ANHbMzjBao5neeuplK1Vn8iqQhzj67C r6oNKUCAXm5L/c3eY32z PKYOByPbCciOizLK9d++mvl0kyjgeLsP8RoeYrJNJbDGAXcRIOlfLHXuyUTuFVBDXrMoDUAu//9dxXrG gy2//cvg6D2R0NQgoblV Rt3ufpK4qXSzX5ccpnVT8c9evQGFUi+/25HgKtNWu7mfYeLHYcFyqX16KHWZoX5kMetn93+xJ8IP9KWo wObWXpVCn4STV2euxikx il8jWdLueIBwWqokponyw5BZH+Ex+QXiX7/g+hO3KAiYTfNfOxJ6BVJH0znCjytIssYvpcwQh3l6ddxz Lr81XYNf5/T0HQkM3cNI AsQpsCwc+kI0QYD4InSewEG5BcQlIFd46iFoVrjL265xRs2n62fUvJaJFItqF5bLhDEu2WXjYVP8VirP eUqVdQexwwdOlRuddeZO /VGwePsxb6XboH3PuVbZXXVt3+jLXEPmxmVpOxH9GccqlENrpzwWlXWrGP9/PhxGd+zWsOfu6tlWjEl8 tnlti2HnIjUtGDYJtqwc z+RA49xW4RJNYVhAllkxRratsaQtD4QYYvtGmNEkikuOSMpUYMrTUgucjf4gBN/c38BotcXAm4coAj+c pC1nUzVGeIwMPT834vVV gUGCIg2BBgGonXAr+5unbkJaoVIbx4ZkVnyrK/309ZM8fu2fBiYMAnfYpFPJND0VTgAKH7ZUZrXPy0DC vSGBgg1l+voO6Sk042pC 7556nkOC7I7m+7o8o6Ls5gvVtby/pjZfSdFVMgJ6Om+9AnRGu65eaZNMxnP6pVKYZrxvSaBjZXNMOlTl xm5Hcrji0yEMWBt4cYv8 pAovWJ33tkbD5a5jfkUZUUmbPCE6n1SKiu5v51TZJgpAN2XYoSJdff175fNkxLFT5ThY8qC0WTbqvGxJ WriwAA/ChCl+MDhwzTsi ScoICCAbqhRnSa8+YOc16sQupvon5/CjSDPUILcrA2dmOrs7NuCIgU8aBivZ2SiOBlFp7SXHerJKeHcf OGwtTr/oAAKDQ+j0qVKU ErBjPb2G6JvFbkSlVNSG7rbfRfn/oTrlOcS6e1+iPUnTzg61umt15i4wCfcwFDpO51ju9lFeUzDkAeSM Dj+silwSpYsKbcMUyAQL QhKPTDsEQJHKHQp2Km7q7rrtLwu0mek5fSk6s1UQVoMsAtL0hg4Q3FUFOM4Ela4v5V3tHntuoi02hXSw oYQUdXrJ5mYzjeNOtTve fy0rtT3WDzc3XyW29qqCN6/c5fRf+BYXisfNCgesifkY8ifBzlXNEO0wYw9dyNU/U6ELDIIeNa7TSixt qJlH+eokDvffoex/ocfV BeMqDZbJ6BavzJlpMiIdfQez9k1Y9GCMLhTED8IegrPWXsvSdUdD8+BzLtpo+dqEAUMqFovAsfc4u22s ho74572hl0kcy+MkqVKS z/PDBK9DwGQuKPr3YQVmqhB9xsbMfJNNS5T7DY/xqrbWxWeSKAyy7SDu1pHKZU3aMGY95gIB8qeqjA9g nMLbVy/gZIyDWm+mxcEB EENjWDH82MchEQ7fpNiAnIwmKUcvvA1+NZODrHMb1XcvTEOo/zdIHzYjDWGA7gUjkaHY7pWUTdUnMv84 +9XIYbJ//AYCFMgyMjIl ZOMmbZ0oMgNInyOIAz0mvViqM/TwQXqgEzBi5mZMbt6PAC2eZ3tJ4wAyAKy0WWZh1DSV+UTJUa4oIEk9 bYhP8GXz/7415r7d6a5d tXLnH0KUOdNE2EN+w+Ml8W1ZWWV1VErj03SC76uPDVpPER3+w+J5UJGWYedGYaTPRRJqDaJbzzm8gjRD KDxRjfCceQeHIWskEw1e 43zWKg3DLwgxVJEheJURLequhoXqC5wSgNxFFYkd4x2IW0Z1HtJ9xV4iJi7tSGt7HgezWu+nurUrUcLl oKBCnke4S/pihH0Gk4O5 razsfm7MYoNZhWnPPSq0EBEN7aBjB/VOHhcOsIOknBW4Ow4y7ewv9Dq5N6ebzIBOaSOT8xZ9+QWVkxYX 1k2QQfGliq/VoHT64wzr zsZn2eJ+NsZJ1WuEBKROkL/EOz27OJldTECbgS9Ii22GL8UIX704eoZO4sK2VJnUI8qzAflm39BbhUk+ jSL8BUVIFbD7zGTQ3lm/ NtWR6ATffChNc+eTQ89+AI1C91yHJhcvAq97Uopxp11GIFYIfDYuy8QZQrQzuPNYqtRcJUmCfdLAw6Oh 4WGhdGvew/Exo5nOX881 CZiOOptXTseteXGoOkuUDv0RACaZk1Gq4bGCgrc+9wu4xsK4P93A4OgIdByW3AxcGhijzOI5BmS4+bNk 36GyY/tYMkMG3PWlzvsi LP03z/6ZbrvqdEUd+8xHCpYaHiyFZuGhzRr4ZJryOw/lk4nZX/yWGQ9lW6uI6s6LnNV6j1ll5QIMrPnR KefJ6OgBDTdOQYyeNkqQ n4rHHlr2VktFkEHCZbI34ANmzMluo99z199d3a/sjgG2IAEDlB5SbUOC2kyTyhOm2xXmDcUtnH2lBDjG 5p8PKkHDv+iv7VRs/FNN HXtFrp0+hz6fGT/CKDqTVmlaXDyF89ZIvg0GDOQCZPSxr4+iVAACrMjLdCmTNBaGDjoYN0NMgAgXqoIB v43lnR/yw7g5CBKELiKa a1E3WI3/SFNFt3AmKnNQNB0VWPqQ44D4FqihZmLMvTo+z8p/sRZniU9EK6/JiBkGI3h55dB/x7QxiQcw uRHuAuLyXcMHDhQ+YiGv 5dQIb45BMxNDVIlUGhloaztb0Fui+X+ypPyjduFsOSWTLH3vRx13arJPigNX4pp19RpJeLq6/kPg+U4d 0U9hKzS+LhLdM/td1Ksu HrGq3HHQi8/1DC5r+0ZgbxeCGVSG5ytfl5ndSQC6taJ3L+bwnZ53TGQczDRHVUktCoh/Ekkbz4Ul1vtj ufYPnRttV4IGszdCKwKv KxUPm7fDkr/XEJHzsRRTOFgeuPtObR+xUm0L9tqsAvvyZJsJcpKVzpsisBL8XBOojBlTxVhgaJB1241T m6OzIfkKrKz2U4H4SSBn inpIJqikDzscQp5RRinL0cbvKFc7GcMcvPRujkQBXAQS0jk1DSGkqOKQZHuWWJgmwMCzem8HVMgVGPvH EyoDKEt0uQpJHbZdUiHP lZFrxdCGhvefsznMkR1Nf1rADiyNp2AQb+J2aGgXTY2J556B9WO8bljbx0OaWS4gDz0FX/viHw5RMCrS TqbHDgVyUUdzKK8iXmLy qyMK8lnVpDImHR/81Ip2fpmRRl8bkoAw4MBjITzvgNfjexFerWwglMeyLD7iWtf4j1+QPD7PC74zQK6f 1FdHvPVCtHuVyvtRkWbG az1Nin0/e9E3v4YUE2jSFvFCnnY2UqpCFY+GfUNsmjjHJ1y4ks/B4pTtevMMSrwhwGEYcdKvkx86rqcV x/A2H0DpZV4QaqsPIOKg JyxVEG1LRhYiEbEyqjwyA4AXuHACsnjsPh62EY+gwhdmIiRHWELL3MFGx9EVMg/jLFPtAzRYDSMyRo67 buvT4sXeegOCm1trPhD4 DQpLONoarajMPQBYHjHd7ZMA2j9eCm9EgPmQFEFzOJ4a+D+lnZvHfYK1WkVaRcFnA7rKUaJUwBN0iFZg lS/aFcN0I3+papLSo0wb GOx3R20JLEpF2QBrVs8i+vn70/c6e1OaBvdmDNDkseTqdS8bSkPTJsY75KRhd9uvHbIPbZaA3Q/rATi4 x1EHqUkR47Wb0Fz64nPm ahomjvK/O510Def/ZnxY36v58EkmWcF9E5ZAygyAdZJNxFWWdNVPWdXW7b5apLEAYuUmrFYlQCcDK8Xo zZdpp8/EGAlOw0CVEPNK h/Z1O9GvJB0loJm2UDo7blCqjNCXWAug9bti3Y0KvokG4P/5g/iI2Tc0Ozmd6cz0b3cIZ9yVvAo9PCzf Ns3QWGWn63Evtd5VY/LD cenyqiXCtjFZZ7n5W4hSCLQbQ22jQUgDO7gab9DfSgK0pDAwxNr3EGB/AELECZfMWjQIOUj+l8LVzRDH cYhUNjo9LB5Iubfsti2I M1f1QBQMSfDkk5AwkSaOb5pPlugUOspZTyl4xx1vW1m+Dc6/CRanyi3xKaBD710c+woF6kn9KVUQu6xg +782JswHKxV1CFzQemFc BWSBZvktcyfRGK1gyUO4RP+hgvzZ6GlL3mbYuWaVI++PB0/tnmNeMjD53kDP+SPO3VHmCo7MWSymEJKR hE8bbcAXIwX1CMHL7VBE qa1WLRkxfoRxwOaE9UwFS1aQRhmw7ZakdJ+RzPESuXSHVVpCB2AimseuxdPCzEUt+KM7ZGzOCdGuPSoW azVGhqis0LFhCtuFwBEN zHsLTJETUNp0MdCDYK7DnCsTDxYdi/GMEuW7lOCaFwcVSkhRfWhhxmHmvEQFcJu10UQXpLL9CR3vcTYT Jp7xk+j9KRHQe9ASuU1v IYu/krGoxWfEH+JUCWjWwjjJ3+vgwYkrkEKNpMhi7+yPHYDNrMDCWsCtnjHe2Zdz92ktfeEgcVTlSCS/ frLwJJ1l5+MrtMkV94yq skmI9RWyLl0fQvXacZi7+Whitney+wcvaTpIuxZOnPIoyZ9E3VjVrc+sVegBUCB7zx7DnqDkqPtjqPpUN+6h do/XaMqzrctdkk2ANwPn gMlhw93DX7pHvJ9h8TJQul6RouLbWMUYjSgjKNUdI6T+8g/RZm1jccRypDyGkyXdku3UR7Cqe/tp29eG y+ARTi2TDPv9PQ0WND/w CMVdPzk0cDVMvSw/9HNZLu0M+nHeIVADYqhiHtJIdekBapuuRMP6Cl+MrJQ+AmmrpF10jt2k0Ohoyhig zhCT5GlkiLdMH+z4LqWT gpruhP86YOO6ta+/cT9iL8myZ16xXSGb1uMX7aT0owBQNMmKQDvTB9z13cufmJJ8u1STTHa5RgoNlMbS vJp52g9h9KvAyZjWDMXy As+3Mt9cIeIYMqopx4hCbThXGMPSOU/zHtL7r+pbqKWucriw2uQCuIhc18tu7heuEH9Kd3bPRfJHF6Z4 S7+SrOK3xi3x74wgIM6z jrp4EeyKRIKmkp1rvCbzGZ71ImBoWCSZbo9lmlL+XeQGkWkiZkrTQrJU3iRGNFPmOt2e9TLH/+U+xkmP 0ZCvWyQCR4+FYo5qdHh8 uQXKIgJalf10gjfMEbEm9QRasiVjVmucPJckyD3XWYBEsfClziMVL4rbl+CErWrsCIQEpozg6zyPdTD0 9D895cNU0ldVuUWqsLrb vBG1WifOPQGdEWMDL7BwMuJkKiT32XV281NA8ePokAxC5pTkQv8vsPRc+RPWIAw+XKoWJc034/T5Mnmg MIug5bRYlq/bxBlBgVRp n+NwHxEKrAWkMUFOur0nug83vusLOiu5yp1obHisrYIcJRTAEgezKnweslNMBeqijA63HCMXYRmFSpnS gMAeMpFPhHU9AMjt3JCf ZNRbYuLH7OPPJMJ0LyyD7MwugWn7Oo8d5SdJzSiJCPEeWd+uMEOERdThI03igKtGcS628EF4qfWN9Bzm WkUEBVLmYHBlCoqZbgU0 eSQyGNSjkrvMpzx1bcO62oPXCUmC5Eq9BD8p4Q2ahLtB2uwPkgdV/aRzpxxpSYUKcy3Xw8DWEFNGqQmi sZKKQx2aQUy3z2mTnkaP yD9sEko61RlASa0eqn5MYv+ZFjdyxwe1UlAFu+POcqWMShPWEMfhXYvmTIO3Jb8hQj91McK/zOCStZrQ scwoGPBvsWSabnT6TAft Pxcqv3BbI5+5VmT56fDqtKMl3SbAkeN8Kf7Iz6hJHPjtW4jU8PZYqxd3ZMRmchPnK8r4IwQaxLNlvKUx MwVHNPOdV1evG8+vpW2v vpUzk27GtJHL82zzn6bbjfXMKorZxrqpBvElxKXluuNQ2luysTsxGY9noD2D2A4kifXF8agUy//mlb07 lhuQsJtmF2RkHczq4JH9 kMAQe6a0C5eQxmmuzNGqQ8/ePfzuO2haSP9BZXdKHE4J8XF/v2YB735sFQXZyVz3QO9k4xK87SbMUBO9 MtUYliIbgUfTGLzZ8FZG 7rj3ujDkX5IIjpvvt6f9JjlPlQrKGnelp70RYOKo6DoiB0OGSu2z8UXeCyj7Fg5g+rUqUMVb+tGN09+T 4vaLLDN7b+uh0nbzG/Sy M4eyp1MlkpKSCGnVKHiMvhnnj/AbBgp7bvnVz0KYzolenfMYpDn0YZd/OiWVKDRIiC1my/Im4mFUcQt3 Eun5OzpcZ4gW21KWck3f X7/2L8ezCKBfToTkVEkB+xK8kDc2Q0ykixDA5jjebjSdEdO/fHC7skQV+svhp8n6460CL21QG2XIKdsO iBMgeHTTz+isaak+++myrd3 PzeebV6XUpZ5uhiEZjBn3KkOC9JBv9anm13phVTd84FnPClll6NYuYqguvQRK0EDkflttnA05bdF6dfF kTPexBaLJ0MvSXT8K3nF +K1w+OMvMMjGt533+qX3dk5lQdahY5jv9rTba0zPxE1HCUvbEd6qhLertDPQx8MVhIETY7blcqMXuHFI CGdJN35iUWsF0OMEx4mE Z20uismhKGNIwYrbKAnTyw29l4wwyyD3U+YbhMgqIVRjA1/wfEBdxnnJMbV5LB8f8Tl/raUUx4Ia7qfa uarEvsGQeReNvNr8KvyN SSOZ0NNIRTKFG4AKk+GutUuw6JXc2RGHQal9NK764Y22SGP39n3ql+8CBnpyWQIDanZ/D0hdqdONsTWc BvrYDyGrTKgelaCv8Zaa 2nnuEfpzLeraOGChdTv/k8vA6Gad0jGYBDOdDkHNs1+hFp0kMjb0GQwYu+0TG4UTlaMX21HwqumEcHjx BV4eNGcRr8/qd7xl1tVD l3K5qN9pZK3s1l9lY+tuRtWVHkKOpkVlqZrC0IRtuZPzsWDs5gueErXZAGyWstWr7SKLZiI9QZQEgPEA n+5XeR/TikzmA+Pb31kI tOLfJI06t/gNHP4E9UfsZUa/AkHRDPLArGlNsfcbJzo751K9gMiENBeX3NbSDEDCFzWK5HFmipSFJjGe JHI7GMSctNbPYghc28YQ oCy2p2Cn6VuDLrvky5GBGGBmgK1I7E9RCnqmtxdYwKJOjFhOhMdu8Plcr3+JeJS/GjqRJVIUPI/I6nu6 j8U6a1JKThcNQg9818os ZrEJeZuToyRXZTga3DCBbxyKoWUbuxAIZE0yaL7q6oppmm+gZQgtCVQsmRJuWWYggBrIEyBAUubVKtWT pjimfsZpgCWRln9afaOl K7IPM59vHlNHPnZFF8gfBIdn5uP+WvSug7qHLOOHMIgFuVMDXY3xPeF5HshipK+K/pDlEiKaQr0Teu+R wT8qOx/K2ZZo2dFHiYF7 wMrLj+xxRcQ/kSb2XGeNdh2r1oUuf33TRR4HcUvMHxdGuerqPrbrkll0AHc6N/07kSDCX24BZ9dofSRV RYgTIFCm/RGdBtAsU+/L QgdVtJdOkG9n2Ijj/lyfcs2jf40hPpUwjrEsw9thcChaBBn0h+JWaWL/9EBYNgpod6/NYDS//fm8Ekac Zs97wpbsmZqaFDGgkO+k Dj+Mh8cZ+S8uRFYw+/9Z3nDeU2XnD01svBB1lSVXk/5mAme0x2x/7rDCaaxFUkmiAOD7+nUMDA4J5rnE HWuqS9SfPRpBqWoN2cO8 H5HzOQPdClXbCASg6J+ijFhZzlAp2DR2J300KKSul0GlUDCLz6iNEOtKZi5OohpjZAKRXaLNdhNLa09H 1R6d0v0jfKdN4YM5pImV GygTk6K8aGB8PBAB8A2wPRNvaMDZulXewgb3oGu52hPXwRZfA8de1FwlGIqnI0Qq+gfQPGnjtuER/Pmz wRMTAjFPMNJMaT5ovCHq gzauS70SQASXlTuibea7dDre6RLiDIaKirDnHviHvjOnUioBRQXOJAVJv5B5VuR2dVSNvD1VbsHXOd/S unSBNiqCWRR+pbvKElU9 ikizRX/JYikZGxMjH4ELITRkXq4IVabtK9dyZmHwn0fGTwVMiJCAQev4LrKtSTEdQcQEPzZZ3EGzE+aN Df7YPEswXYSOHK83rQJW dEuFO9KMmZ8ERGmzTlJWQQN1ZnmpR2yeQrtzaislW4ghDNlKzSJn0yYNDq4ArcMrNJ429cqEaE83kHaf 1ExZMRfIOOVYUTdmxKt/ ZSoRBmimUIzmLmCqFgpom+CZ08koTkuhSYwXt+kIZjKd5cO+j44qLs7brCQZp2C5APQ3uMV7MNIo60Nz YOzArpyZejXzRHr1NxDH 9VkXd5uu6DRFkxHjeP8It67GOGTpopuyXqzrxeOXJQnOqPOYOWLZ+jRRSvyv8VxnBHaqm2mHoKwhE6NI G+uIL/PJSYwoSaK7w5LL 98h+k4dKIyU3YOuRoJ/W+MHqA848FvKx29kSNv1y9NXe6DexlNPE0UV0teHH9u2CbYfOb/Rg8APp9bCQ geWURU5FJEzbhEWKJDIo E8RojZUNkKdPGxDVFxwvUtjJQXDCHsQGLg7xaKNZyptVtwdCIHNtxZ8NGKu9SFOiQAQafuIkyVSrK5wJ /YtMrb/JKLPb6C7FaFXB J5WVp1Luy4qKjJ1ruwPmrwN1MucH3uFOQtF25VppToxUhCXf+a+kDCiO/qQX+8UYMu0gVbPhFPwYuKxH MH20uVU1WhoEuUS1+wpM j5+k5y1VKkiYqa38TH/la9GHfeDPkuEplHFr7yZgu+0RVb2GvtOHYZ7A1PSNxoMHuLOYINYdKTs/y6Ex io8ogez2B5D8Z5yxuGy7 DSlbvQpdLpiX6yHBCY9wd2PsRreOBx9islCV7NGXZGWk2PpvU6JJe0sxAI2pz4faDYApK/nL0R/HbflD GuFJ67sch4Ogku9OUCfH TJZLYv8mkdxjlUclsUez2eUvGVTYaXxGjQPi7BZCNmv8RwR8SvOZD1vASkaNOck/4qI+MAgolChfYRFE s60BNRrUMRRkVASx0BvO El+FJual15oezTHKlkFtO0ZoBH4+Omnn+jPP/+RFjnznDNDiQO1ozBskf21FTbZWDhQzyWbnlgSo8NMZ jVRAU807tV9WbNaQ+uEE ChJhziI4fdXUWGldbz6GikzfRY+ShiVujqyATgfzBINOAi9fvvmxGJFfMecPNd0MwWg73rVsIkYvUpyK ryWVyTXzZ9m8mqUbaWpW aJ+E4hFJipRwWHKGbV0ui10uovZ7a561I196BEIVLzcB+PYZIMETZASqeaxMbJ2zqYMeWxrR3xtIvJxf XYMFKbU8bWRQEmdare86 9GOHX+JteYSKIjx6LdUNTtECCJl5ANGTqdLchFFF60/4si2d3s561GAuZ6+803ewUtWrb2dFlCw1aFg3 Hf5mEMPusOBRc2CCWP3m 4xgFIXUN0HuO4tJyIFmRiVUXLEl2gjdih/0U7XILJhoDCVS670kM3aO45+/rUIWIqNN+VGa8Ujmub7kS tOmTZN+xCU0bAmAgH6hW cIwAkzmu+uuu+dCBek4VcOWeCPIIsosO5nUE4Kiz2VXTLeOYKFjoXUWcCx5bpjwqBsKfaD+fXsaPHgwC k6PwwZQwGVSdhPOWqOnT WSqoTELHQWjLQVEWQMFiaJYd3WPiaSHv/nKLvZDOOvNY1cTXYsJAI1OXzEzCKefBGQsTGCluU+wAGEYh mI7spKJzhKP4yCxVPpKO RifYAHCMAzD+WJZERWiNZAvEXuKi0LRALE+/FjqJsZvHHbFp0gwhIH3lWLn/A8S9vrBMEjuoQAEUgDYP UXFixenrKws+DEos2jI3 kIBh0lii56m805oemr65rcem5IKG23VDsngaJOExvNpZtGNrBXFpOp6qENMckSpQ5+kVLNZPk4b+ROPB Rskm27J59adNx7qz6wR9 kXOqNuuGvBp0ADKVyKtm5ljiqlbdBxQfaeJza2WJ7+evvjiC/7SG/Um2gXCY3AmP9DHNyatJm88vKeai toYFD21sFc+/vprmjdvn bmoWntS18sWw/vvv1+GGSa/6hX4QTi5n4el647XEYDTQJjPt7fOhCyhTUIRxAyr9fWRYHx/EytWrKDu3 fcFS6Qav6/+mSpWrCjDj vjvf/8Wsf86sAWMZPyWLa/pyRrWh7DtTF95Qa5ziCDSy47RnASGj9RhJOcIM9BdzQm8WB57cUPk1UMd+ inJTy4CX5b07Uypol/+k A27ecJ9lGEhDntlxPjI4wABk1NYfMggi4E38kTV2vbFUcBWAQKdC1m9KWVuuwgFkyJtwkcud8fxSoafW UJHzLJVlz57uGLbVWoPY Z77LgmQTTEifqSxahKRSg9g+HcR4l0L335Nn7daN4FRqQHYmLTizknPToqH1ByZjsqHiJrLdDkXb/g65 matrB4QKoVSgHgqJJruN S+++KLyuQcvFrSPm2++HtCFqKnr58/jev/9/tKRgQtL41sQJyNiQcTEEBqv1OXUY77++51tJ2aJojDoA cw/b1aC2Ma866LdzPqFi b6eCraTOLFetOobvMsG64i5tSPPA8lRxJCFItjaqegxatviaT2co6IwWdKWBTQNqX/PH0zRvJACjZEAz 754czFlh8RhBRtKVEWYv cQs292M74PP3RtNE+/bt0+OxyAd+timGLjCeWzB9BJtVmP6Cgdd12BXmWEYE8ZBfh6aSqWvINiPsaNJr TJlpMN+3Buc63//+580b 7rbDtp6QD+ULl8wVPFMKZmUJdsLlVVVFWv4uVNXgl5xyt+XFnGl5J912LDOeGBu2edaVywCuHs44VN15 dfrLH7lbdNVgarvi5+tU rgHx+Ie4jfg/njLHuy1jPRLGdXMok37CwK7i2SDtM/9m3sf0lE2X/7880+oBbITKSu8EWWez1743Yy28 aefVIjopZdeohdeeEGFv PkfQ69SwAqcGuQyM1zxbKW6T2mKg6etvGQrbmtT4JPa/fXXX/AJpBdUM28HMSgzADpOXUNuW4BE0qSEM 0w4LMpqvbELV43bewvza 0/FmOQWWMz6kXesyzmx0gBaab60njNz3kNvm7ywpxBkOU80EMT1a2cr1PUYt4aInWlgLv93Xtq1ujW2E ds0wZXVNMP6sI/at28vD LyteKwXZf4II+E9wfuN+84g0tPnvzyLF0aq9lWeMDxMenMh+stp1ECPHV5yLiYxsTwqyLCpKMCZ+sWJp F+5PuHbeWyOiP430yn6p CHnQF2FdGw6b5mMG83wwQmjKZhdT08zfxiJp5WwtZfZIoVkyRERTtZxG36b8s0dmgaCRv526ilEstCSp Ztg3EYRs2weizr20xdqk qSbP3++6zhZDEXPBLX5chatRfQj+++/F6bGPFBq9BmftEaguoQ8AS+kdLg+Iaxs+1DrUHm3RuSfcL9QP GPFihXynEJrlHGiIWBUr KiPBDYAcXmAYLHGRPsn1WFMnwaODZxsUx7i7r//fePGG2+L4sbbx18w5noTzJXyPGJS2GRKQdvTXGbL7 xi2hxotlC1z1W3vL3D9X bMKWm2B9oNm0b2IAWEr94cfzOKdrt2CgqBIW/tRYFUBZ5ZiBCbVrQGlHGF79eDkF2vlsiewEY1JD2876 kLTShMkq6aPi6QAgITTM ZTq55815a9TBMJLGOxNv3/3Noz2459bXVndYuZeL/RiPCYRuHo9tna+50abNJp4m+GGS8Ja52uuXsYw9 x979SybzvU/e/Wunck0X uzhSGyjwKHLkuBc77Zto/mHVEz2eCqLAxx06UjzPLvjVDMqmjkOYBzAI091tsRMRrKx1hTLncAzrKPz5 X5xvMh05+0TK7c799tmu r/ViYa/8fjjj1/9prAEcjVZ4KOWAZGyDth9lbUKFoYcMKrTe8k/TIdPv9APQLRR1C/+++85jvVUgGiee +9409Z1Fq6CLoU66gIZI mrcyncIlKpMUgHp167pP2Qi2fWgu68lUyk2EMIFMrKPW/aLlp+FtLxCqpcaQDcAldMMk9BDYTyFhdsLl irmaqzPddWqVSrWMaio3 oryHLBLOtYExsJo3s2mVfiut3uOckDVJp5Ons5S8aAMTpupbuKdJ3lRYFPaTp176KMURnKJCRavYl0Pm x1Upjt4158rWlmaku99d HYh20SCRUcxOKmcnWXWLaykIhUYWa/e9koorvxu7vSzft0/YGe1uMdonI56ofwBsDtEVkYOdFg5acw90 dPKrTjMhGNiMW2d9dsHb fsNUCMkC4d0qaUCiwL0meRGXIyDn13mcZhwkNbdqwZ4GoCwnftBqCDQTygXaOuzzaz6kp6XCJ/XHUgnV GgZbc3GWDcYkPBqnePrp aazetoMxZSxM2woIS/t6Bw1083Y2Hc6u2BYmUT0u2O4Whld3Eeki97ROWYOwWrUIepBmfmxWYyAFAE1+ fyEZPtvxsinR96iw1jN4 FaIoTvgkQBr8A0zH9ny1ihpifwvG3GQTdwWFb4ofgqShw4y62eCZiyV11SZLyRmzXpFAGqVl/fy448/t n2udpm56Ype22/xxRcq1 ss4qSNfpSRUvrXDCskneIxcALdyJL3UBwLQbPKO+EJae/A8qM6lo/IqPwFdwF1UP/m4w+bs5NPCJQ4Do U0fCZMgHnxhJZbfS20fU rKskJz47Xp3V4yhPrVmnFB3tuWKnsQHWfgskjvDHxM4kt3r+t2tL45orOGl4B1NiRWVioY10O6ckwDwx +qrZjogel7IjtkFCs+ox Nx1KMCOU0i2sSQEOkUI/cJB7j3Fv8oYurJvmNBpRn8dvIoBQzfB2TjdVPn6lEos8rcWI14x4yr18Xf4+ kLqTa9g5jmT3z80j+QJ5 281U7ntrmuPurAmZ+euwkcad+n3qtSOGDsf0A7efyehSx4q55LIcjyFm4Lmow++4532muVRxz5s5ggXG o5bx2HBkt9A016nC6j2s WQnyUCbe5kFcx24SQE3AgzIgPs5RssM2qxIPJPkdRzl8Nt0XnXpz/208eLGYxsTda85KTF7ZAMY1hgYp oIZFLndYXKC1z6E/6Iz0 AkkcQflEj0GubNt2zPvca1L1BnlerXFAJXQnLxoW3GP5voRZfZ1g5oVRSD6t5tX/eD6N+G+vAy89liwZ ZAB5qfnFCI0ELzfewy76 l+5jUMAX9ZaOBC3JrXlXa6jkOTalCSDghDGUYTu8NCbUvuNYFylzda62b5f5qEWNXkoj37+WaD0U070C +dBR0tk4ZmdiTbo36x7e 1CHlrX53bnmgACi4/M7soe6LDxY5AZNqtK8MmtFTIRGdyEpGrd6JIVViGncjndBSniqUpJMiTHKJ/Chantel 07zIgfp17+QEk3kRu4B5 575txBBPDUSM27ZDs7Dx0EXClpPLYMnEh4wJ088idHuECCiUb4be+hCYMqylSgjafPVttu4codQ09YqY VDIov8s1GFPuzSJ36rcj JyRm8gl02v3i+RqmIOXIX8uVuc/P6VNkG4DczFHN3EOY4a3t5mYTr/GG4B9dcioPd88cwlFjGgQfUy9o QEJAD8iRADSYwJgrfLEl Ypb+/LH0GuGZZHVbvXus5HWhwZsZeBNErmUdqe6749gwWuP7vb8g5xMOBU9d6uR257Rylk0+z+ 6rBWmvaMhXWWfaTWWExK DTJFnuYyogJ4PPGMrhuruK9aD1MKgXNsQZQ/fzt9bnRSk1cRueB8CQY0Z0AMShRcaq+MA939PRYUCY8Q MVVEz5Yt4z88fhaHv5vV sY0foVbvNlmnfoQSm72H0lFlv9DdsSBfjuHpAMZqUnhCzm/Sw6PcwnLSOrU4QA9OrD3xe9cugRJtp9DP 1S+iFjqb1UN3+bNSWjbK kTStNdbYHJt/T1Cu1U+86PeCu295IJZjXqQFlzCrxYorebg1rBF0xCCQSU1EQFHSDVM8oSo2XK94eFAb lBEq7tTcAhRtsXspoIUR 0/IEyVKO8kketPVySelSrlLHUopzA92L5+1jQTr3rShAfzqrloFKGzihFYu5ZRPtb/HgEM5pNYzdP7EF IEKyKrxQIBNnTpVCrGxY 5ayDDom5ZzcHa7e6ig8u76yA6ITOew4zLwGVT5Z8y2y3ezIwnjvDXKqKD2uoL676+6Jfgh7txKPotezQ EgLmfS7cqf3HhFXjy3br HBB+ieEbu2Lym3aQTUx5zL54xiyojPiKDSLjPC90mtfuG4Pa4pevoErR42ghHSo2fI9j5RUit/kmQDBi vUEpZP5yunFhCGXjv0tW zeaeMcmS0927exZIOLV+rX3PGiPzmxBGYI26UM9yEpcZ3qwyg6FEP7oLqaNXHRXSqmV5yFOxHYdKfahJ GQon+bcL9mP47mm2bGRk KoMhDbTuPgtMLzy8kWgxkn21O9xB/tLcpCRvpfH1l6fQ645q/W0O3eEmWMKTi9+M1mEckb4HbCk9PCY7 nTebgd3UpqhGGdWXn7Um Cj0fO5X2Fy4zri6hLt75l3gTAf0AjxBriiPDCVTpzERBm+6bScruDNQ8VaI5L0X4VkIp7gD0d3i7IQ57 ohxwR0fmsCCdTiaSvVEU TLvQe5gQM70kPMIkfHSbYOZpdro+QOOodoVoGL4fZqQHiT4ChofvakxwQ9wFJQBpMiRV0IyaFFZjP1Xz Lt13YNvbepoilCW5t0ai 3y+Zj9nIG8598mb+jbvKazbGDAXlJ0O4YTEQLAVM3rirQIWsEVckoZsMPHIkovff9PucSk/jTPtBasva KsVgd713ctDY0my7A5p8 1chXdaexMdG0hjvql3BzZsTLCFOJeDpuKaqxND7LIghc/wMtCWtIUEqf/dco2PFlsBvUNlVedxEzTOHQ 9vvS6MsrCPgbmGBj5QOb tOmTTl+g0YKlTFJLSYX6b1YarHiNQZ/qrFzfVZ3mxpGZSkHyMtfoIwChp4v91XgEcIEFdoFrxecUfsys LkxMfYIA1PIHXo3uWc0b fLY1Wb8gg3gfuzVzDU2802hfp1XDda/o0Ff/fALOgVbtVgODYXYElpN5UVIlIq6GjSGtn6PJAcoFU8HB 1544HWpEZAqzw2uZ8hB9 rJdaKzRKxGaImUbeUY5nS25/NTenPwTZrwwaXWG/VSZ2ZkGyvMfBVk9Za4qPK4k96YtVtxvvhNWMiWLR q3WyQ2BRgEk4dsGTdrXZ wi6lW0LJ9Pwla98dmsn0rfwXBHiqIkpLqMqqpt9PnXbkFkrJOVf6tnsx8zQKctU1SoRC5pcrMP1VaJWQ oYMLRqzzx8PiaRiqdYAD GwNBMoNXUyMvU4Hx95hFSnisiz8lZwWzIHQpbm4PnUJyF5v22YbWP4ElhdFf9J6GAWxu/KmtgfFvA1Ke T03JUOA+vygI3rASDjwb 4l1Pb629XY4UmXw0YeGfQGEKpTZD8Qf6fTSPKFntzoDfTUe2UsqUbgg+sMrjOChyYwaaKdHeKrad02TO QsK72C5OeXWv0vz9ryrz HPODl4rwfmsymTbNU0PlRXqWlGegZlg0btBnLP+tuZUMflu10eZGiDer7KxK22MR0EGq1Hv48KAfvB7k /322+XW09+DdOhuxLiVB l0W3ox/4PyMfpuwSdAR6A9jcFZDo1/ZYzXT9/TrOnwc9t9Mpb3fWynm1HwtrMkvndC4S9/We+DJ/Uevi EAaz7s59MmE9flizegBw ++7874rhy33AzX8Wo5OHgRhyCnB6bob3pjni/zBcAn47AIIXC6Nc7Y49iPNoQXGiH3VZcV4VApgW6xPa UGBExmHeibMUMPJY6VJh vFl+TdO9caoAhdgR9RpwrFjosnXAMIov0TQZYjrT0wKpjYvvOuVjpj7U7MdeWiPr7NOFi71MZxA69rMD ivKowi6uhhdSF57pPZfQ 3RW7hxali4IoIdbNWzm0GxofKxCUmAQwNeHpwwl29gyEwuRy9/r22HuqMvaNr4g7n2mfmqnGPHsPfNHV mn01RCTlzioYLZs0mLi2 IA2yX7321sl1KYlzKEK08f27EcC7pLs541mJWPKEHWVQr3VynA0WjAUpEswBxsifuWrhpjisWnVVX+ei ArAptP6DvoVA5OJA9aDX r0BU+/1sa+72vpCdP2TpXPfY5L+AH5BdFAkM8GtrIadxuEzsyMG4QsW7oZWRJTuHsQRlX8T+xDV4987F vw+jZ3c4aVCaZA9h6rlU HCs7YRb8aU3JJgI78ds7+7OrPbdJN9kRCqpvvMWKUu5hmo4jfTawKbT2+KqUKGCV/mCc7qwyrm5oHwXI HoTOupA3lPmiLbjLTpuA LikQ9mQ8ydSjWPfUW0srFaa5o0lHrkaTB3HxofsWbMiHmHoJ8u5cnq0V33u1fIrcK3jVZpMSX6aYvChT EYYD8B+wUD0+6HN0FfeR diH2hnSoXFJSCwFh/Ja89IO/a/x1hQpafE3tbFp5q+IA6mxbB9XBNmlt2aC1F7JTBvAk2y2VkSK2M8ZJ +T9i815pXWOhWEXohQcL 7h///3ouoMO4ZBBI+H7Y0jaPkJde/zfWCgDLppUzscNgZw1f1KSTebaniKbCb1buXTKrDP55oi+4j7qF 5GzxFNmigYHxu5As6kvY QEdSbao9NXyRlYXCN4VyUnieOquGHw7W0gm7gvOLeoQtATW6O5rAF3rqIMu7Xk9GtMolzYPsz329AFbR 9dwNZ382tWRHwIeC17bi eWhFPvO3JmID9ex6fhhUqUg0L+cwJfFEqXzzCB6d0Q8stbUFvb12SL+krIr4AoJYh7l81DmO70LB7HT6 Dx1HXIUwkINvz6WcnGRu f5W8qH1NEtbhzqjutZhYC+V2n7e9Yjw1SMLNUNdEFvAaUN0aXjGSkMvAEGm71lkd8Ojy4fLllPoZmjt5 kSUUXHEP6NFQPgMXqAHg XCGRx+LdkpUJKCNlyBSEkMEad5c7PvCWPOldTqGGCSpYStus8XDyYBFM5J2PSy4yZZAxWHEqxEECspUK DgWOF70OLboVUEuOYLxV z4ZBajcrFqlsrZBVUS6gGFoMBWEfpppy8qwXzuzJ+rEG5s3SV9y1U+Ia0D/CScz7HiK81pYq5I6Ko9yZ PIWo2YhaH/nskdUotJqB 9T02TjlfjeM0sijPQtyB+4f+qxFK05+LKzu8xsiJDSyEw4iUxbnbXOyT+tteXH9eDGy1EpKTsso5iuKQ jznMut71xdv7gXdYoj0q 8NFq8HAQTc/zc4Bw8I+AV31yUqLB2XwzSp7i+JOWMbirK6KhCVEHp51+deLpDFQhIUQGofDfIrTy358s aKyLTjXoUvk2dCkkd4aN SwOIOZsN1yUvb/VkU6wTwiBkvK+vTvrt6tSctKgw3wjcCSRgrc0//735wDAY4DR43JRmtwAZEFeFeT/G m5g7fU8o5mK6UDrkYFxq OG54/vvvVAS69EtwDrp64y0vnG8oRGQpNvRuiQc63QihS71wHgwHd+U0NJILhkyQQIpkjekq9YwJYk4D kmrMlPkozIOwOcF6nN+4 sNasJqzn2/vEvkbCzBnSJWlEEZqEJa6STX+H5NphZuSvuN9GobGewADLiFrACPEERge+oEFCMMwDOMTL VDGpsVSu5GGxzZDz/gEC mSIGLzVS3cPNWlIMH4GCaOlPSamKOTfDGOszJ+uOKKBygB8jbJRftVR8bQwUNbLUFcoQNCSWUtK+AQLE IZhGMYnWIAwDMMwPsECh MTFtzZPYgEJpbHVI5AJUMtZSWuIYNnAJKbbRhmOWAOtUV4jPkPgRMN3TAhGduGTjrj5LcRarDBY+fn5k b+/c4ysE0BKFnvRhfrbj FQRpVAWgrLHkcxGj8pCQyfQ9u0jmqBpojk6nrpu3dMFG4zdV4gel71umq1V68qcY/Hb7xQwOohxFMpyK JGvyoi48OT+/KrdF6loB wbVllTtyAme6El5LYxSDXH5MkfFgm8bIc01YBCwm5zmfCb04rNP+bdq1Yp+/tevpddn78+ec0axh999S d3928895nsmAu7a428/V qiLef0eNY9p1jygjh5jUYxO3th2B7zGpNjbD4fK0tH7nRsUGw0L8+7I4fz/WOLU5PVTrOjSEaILDkMpF YpQoUKFqG/hzmj5U3uD5 pyGn7FseEIa44LFdl+zyimjbWXqUIuJETENnfTf57VPX0vb3Rkpd9oJfusifKWZGBcTwlsePf3QWd4LU GkFUT2dzMVHQfU3Jn7IK 2yfA3fQARryjbdNCCdCGh+mW2+6ODwXzjMs5dERH1Hti/wakr8yiAfXZ+gHG4mXXNW7+/btjX79+hm9e tTfzV44zAEX5LLNmc5Go rDlNTE79+ap0L+FzHf6ho7j5n6156FkqxN6PbyOYBGEvEpn822/h2DLTX7nEJJRSYTQEvULkcwkWeOit PBStb7dPE9uQ18RxeAsQ CgpwrJdJGwMHz37TMk3P7+VX3/2UzPdJti6ysKL8CkQLpjyfiyX8neq1fjK8Xs1k5FLjZKdlHc6VyH8z fvs7+j413yiTkbLb3/9J pVSJOuLkjteY7nTRTmwpXEwgmXNwdb778lGeohFPX6vywpELbrcAoav7iCoYUxNyaFgRsDrEqfJZo7hQ xp1Ibol8bjO81KeI1Xyv xBRPLV5ui5rpPrCrAGjC6xB/Si/8dbyMXCaC5/UbJv7gU9RDnyoU4i/T58+TfG8pMtUl7vOn7BDaFXf1 aoy/C369ZFM7AN3SyUML YqcLF++AD6CJgCHNSUo5EL2V+PF00nzVv3l+LHHHlMpcvLXX3/AfnjD8zO79Jkbn4sAkopiaamuvjTyc l/Oqo3KkUiIGJxSfe45r MB/7oSYHbXNE2Fzsr/1k08+UTEmlSpVuurhIPzLL7+cfAAGpYRcms2FIO+ZE38XV804Q4og16WTSpzaY LqGeT0wJF0EX0H10Lv3h QpyRXTYpx1zPK6//AVcm3j2ZmENDzdHdccGNcZsQ4+sWfAOOmJB9wa02LWGErZqAhnmNezOwPi3ZEF0v zrKG879A8GQvXeqIgvCL rDA5tCQp5V68CDvBFyvUE92iaSkOt6UXKfaz9kRPgYHYcIgrS+y1uTmi8e2Rkzf0zmxX5KIAE6Utwwzc HX+ikXkiJEzaCm2spbUv tFIk9V8g0223u5jCv25j4G25Sa3YYGiKYxlZ1p1G//8c+UQiOBFg501HQzs54+/GQirhht2vypT64owR jpfDgvW4IVLHpP4tUivm //6nhcyg3YGBrbv1vLaIcztIVYlvMUsgRjlqigRfrTK0MiXzpzlikUfzOZiSZeFcnNsLuLdqKtlVkW33 HLa5WA0mKkyaT/AgQMq5 Tn683zE9H+++ymd8lfYzV0kgYWmnzwqelRoRxqgsmMbNbOuDYnnjIRedsDh3xPQ2TIgJBbFy61BzWTdA QeNBc/J0mPSgvCMpNUyr aHT/O9//0Ge3HVkRgw2/G4FLL2hN0SlJl/WmOvhKEdyfDCc1Ddk87YKHVpYFyQG6pWsx5pjwa1++KGxd SxH0QuJSlGx9iqnxWee7 4kPg3Tnd51cY7zWyfcBKKaCV4JqXMtgwTt2wfHqlKizaUa4FlySsOEmek32AnLCX3WJKJ+RN9ZeF6xYF qIU4luJqhG6xRTKrcmO1 CAPq8E4o3CwBJLqY+7/+ktdABy8pM/36ujKoUUQAtY4//99IlLQ4l3essrhLnWShcRhEUT7SLZdsCsGB Rg670YtUy3xDCVlGF9/R TWJ2daHfGNBb0edTmpx7loMs7RTKBRHsikt0QIscJAe9d214mDHajUJY02+wgViLNNMBtIo58xFm292c 7yzSi846scc2UAGppWMk REVryNhiQpAv/Ip3yTUHAYBneDGip06UFe3oaxrIh+8YqQcDC0F1JZbtdfct03j2/7777ftx/VJ01tZZ IOrzjwVHutu9JVHauBwr pbxkXMBDdaKsSQWC7cIHUFWc2iiBRv5+eyjDoy71nHMfp7TDl3aaKGeEcXJTofeNyK8hFL/s8yJ5KHvr wmLp6ved0074hPAPu1Uu AXFwe0zQbFT95pklQsl4D54pKCbtbtLYQgqGog5qVmXt+dFoFCS97purDVz/gx7A1FsMYawXQAttPQ64 jsTIKhHsP+SK10WUnQva pABVDFAFmr9PaWLIfWJ2vIzgz//xSeBB06CoEPvFupm8e875vK+U+jiOG/eXvNDNMWanVLo5ridap1jR KOO611cunMksFiUus4qa FQRZ+4f54IG0q4KOg90NEb1lbBE//zzzzKsQaWP+LwA+rs1flELhVuw/NRDR7hXQCD7Wb7K/iYAnRh9g 5wxefJkl/w0HDB3Fns+/ Oe9bjVVyxp7bd8rAAil3h097SdwtYFCI0ohRDd6w99aSTCbxaz++ecdXou+RjhUltYGgwaCyNGxAJVm5 72hDxf9egFH1g9jXUZ7S 7yBeHzIHbO0TgNwLHHUcVCzhc7HjdDovT/+7r7DGsWYO3Aw002QKCkD82vly2uwIm/+/VUqE+u+smXL2 vzQkJzhSoAAHA+h5YrTp 0/RhZtetgDAtfIpjuBArV0AnKnDY86POV8InI3yhlws54VtMPd8ZEH+PmD6xD1W92Cjb/RVT6bdSAWqR cy3vcFQZd4udPFLJXVgj JadeTbfhQouaBDMhBMvcwRTz5gcvdvyFOcFTmLJlTMRTMcxeFKCeAAWL3OYrj4zjISGJ34GP2FtrJ7// QN9Ox5AP4/S2vLjYdnaW A67yi0Ima+LzngvSD76wPbfCn8wKmwn7nFMiKYWXMV//XDCjWgXdVesAv2m1zXI9mzPBayQqgapvRJLB 27tGmoH5md2wO806heWb 0TrVlpCffTRR/TLL7+HaK8vCG2e6dXPhZZYGbNjUFcd3if3z1T2ABFE61HQflGV/amNCLzA0CuoPAoH1 xhbtuHrmEubN6txq3pCy c+nZmKsn2t74a364bXR8ZwPJ34VLahvVHUe8NFYYdcAKrm6EtpVygO3yECU+4ZERkhDSFRA3Y39WJhuu 2iMemXFZM+6urqKsoA5L 2GJh9+bY6PyyZKJApnuc1Ow9eX++mRrvnb9WtcCyOE7bFbmjLNffxThMFtXwox6TbSCVTwLsMvnMq6YN PLKZ4VZjLxkQyGXCrCi1 pM02De2Sh1g6kEoMsLqIYzu1dbOXqThurqBqJ+Kq3Uoep3++knmc/IoKEBxxyeCa9NSrm6lv+6KcQYsu Ve4UU66DLRgDcbqO1Pt3 syZI/qdN29gtLtiRuRllTMcxVDRuiVvLVA95gPftBFmBcZ6SWt44iHhmrTQ3HdfE3y252PmAzAC8Q/v7 ZdxVHe5tmQm0PZUGVYnb CjFgzEYOyueAX03KRKrHM/E0coCpwYGvx+JOpM6yRqxrLabgoWIWUUauKCpqpRwsJKdJmb49WsFeRv90 1asPRf9Je1DzBukHtffY LxSdTgpUa5oqkgnTujoVsEqblCioyEi8MljvFnpr3Ekn7DOCyoYHynGZ73LjErG5dPeXmFDem9VxPrgO 6Oy8lmi4sYhGRn1siEbc oqBGX2OM3+yH/jNnHsKdGdfw7F8RNdtbom0475HQ3sCYhKVabm+dF6NT5j7Sm36aUgc1lx0BtUOiRqIp Petersen/J2C+JnOZEGt7yTmgX tv6tz8jK2o9hfhYdKWZwgxf6oTj8UOYVNurtNR4QBORrPR8KOWh1J1AQwBXWIgQJ05rEJSGIGNuWAbBJ hzwtbXvqMxhHhRAmbYH2 aYd9GsjsSqBlgh8V6NJWINN7yih+H8wfBzcrznOU1H9QNEwJTF4G2HOuiLSIFHlkkgHd8sM9eWXxhHmz SpVkltHGijmUeFdzytyL FJaQcmbdgLjclOTsPlOOLlK9dAc/H4SIQwYYddxiCTUxow4Ipv98c3zj7zZM1Fu7X+/bL4Dhw1gEJkdm XMFW0rjPAZTDWRe4f41c +0C1ySiGAmO2QjkYMhFV8QtVPaYKVcYP6Be4LYpKEoo8ePRyjNnyv2SXv1SdOfPhzQhiGkYdVhTBCtwE u1ElThoL4/kpYymCLF9k oGVxDTUrRd9VjSZgQPyG1lm2g0Y2ydGvRvK7AndGnlXJ/XXKTGfdtffQDWEb0Le1out6GhV0YmLvNBXA mDDb5273ZvsoiIIBCMTP lAgiXQvCPEtEFW2LttwlXvuqxFnsuoVTQpFRFQYvNX3Ub1+dvw7qIf2U0p9mcd97qv5yiXR4JqmlDJEM ++lpxTIFWD80oPhXZo3c Xfaa2YFKxi67y/Oeexpz80NuvJ73CfC50XcOyiD8Y6cz9RJE1QHoaARhvhG8ET9vZI87WASEgpYwoaAI 2gBTHwLhnzR55fgisrxW /uuMJjOId5+9nBdg6E8v8Nr+xJkCljkwBCoOtsjOWPnqglySC138vxQHZHeHB4lrScF8+rL6Ros7azIN 8Q7G/m65kDvLsiu7lM8b Bgu1WnAYTQ5XRTRdK4y2RX3UjzG25L/2U1b0+P8tzBYdrvNrAUFqmcs7QX6/3cfbMwj3ZsHd1B5yfPaZ wFCf9oJWPm5LpImGBiIs 0JL9ygVRkr8SEcBitoslDw7OtE9wS07LbL1BpF6AKdI46cSL6ctBHBit8D8fdFpaGmduf2/2RbCwf1RA 6WyCXcjS8xBOAjGFCfR0 lyMdLYa6Ni9KZK/0IkwzisCaaRFTWgNd62+lu40wyv65q3iMEsn9oOEsxTozuqWlamtTlHrxtEVnkrJI I19gA4ZTL6YDQVDPD2Qw XSN3NKfYrNzNK/M+8SvQBSzS7b2cSyPJo3GbFpMzmrkqV/h7lHsfyYQvchLUZ4yGR7aCSoBaVMfLT5Sl huutQDR1+sOWBUhHcxvd HlVSE8TVszhN7uQLk9OG2KJQGcfuRgqEaxoltew5p/XqsJbZAayy5244mhHLuYr6xnLgHSTS8IPlc/+K I/3Fk/mQmC/b1zk0cxgp jHTF5QEUh07V7xCI2O/qsnxaajKg6uao2DttYRZjbfF50NCT4OAtYLk7voVzVaN6poSurKfdvwn3ucAJ FrIKyrxtOmhFqUF7o+jm 8S+ebT0uu25d38y7MZgTelpV3Rhl8slNyLGjpT8HqV5nAWcU6WHLEHsQ5bGoCLQe/2pybS1tH7j+1t4+ +23U/bi8lM4O/QKVug8n bdlDYdZkTE96hUETJjP4b8z61DrQuyXXIVEFjMpE3wAea5DapkH1oDgZJlXfzHy3KPNHYZRiylFvoXfa n79+ngFAFoGah1PAFpHM q4UB92J3575z3jcMYcElLjkx/cYEVWo2B79N8Utnxca5lgfc5bGAO7zAKmKOZRXdRX54ujhf6YH7gyrC FGJk8FrK9cokQmL5dlXj 4J9hsFfrUZIlXktKkEwVTd3rdOPhPyTKfsfaZw0coO54PqYdzHgflF98gVfvA3x8N/dOBABhYnmlwg00 0pbCS758dwN912kmG6Fx TFCtZHN1PZN40O3lfiFc2XTaLFr+nf6gpNSH/cpH1kI7kY1gq8f8OTqnZjSmQEegS/iCoz/8T5A1ZL/O 1KhLb4a3S6cgrjkOBvLs iydUaZMmavqQoDnh/cB9Q+6LZEG6/UiDlyF8CxaH62dDIHs5eHYGLZzvJBVTWSVc4/7k7nbvnzrseLlM cw/N6M1SgX2FQj4udsxs MaU1QcrAA9IaWctJoOeW9I1cD89p9MqlC36PaTaBKcziKO/FND8+/tgr923D4/VSYCFz9Iyko0dAXAIe JqMLiBM+vkngIUHWn+ws GL+RnF2Jek5XNhycuGNIMGXZvr9xDriNjuZUew0vyTJt+YjaQaMIe6s85gCwjfyLGbNBHqc2KBKipYGl idYgDAMwzA+wQKEYRiG8 QkWIAzDMIxPsABhGIZhfIDo/7Lj2XMXC657DQJCVNvEImRgObFS></span>

<st rosana>GYNECOLOGIC ONCOLOGY FOLLOW-UP VISIT</strong>
</div><div><br&g t;<strong>Patient Name:</strong> <span class=clinicalNoteMacroWysiwyg id= [id number] macroname=PatientName spantype=macro titl e=#PatientName>MONIK GALLEGO</span> <strong>:</strong> <span c lass=clinicalNoteMacroWysiwyg id=[id number] macroname=Pat ientDateOfBirth spantype=macro title=#PatientDateOfBirth>1950 </span>
<strong>Date of Visit:</strong> <span class=clinicalNote MacroWysiwyg id=[id number] macroname=EffectiveDate spanty pe=macro title=#EffectiveDate>03/17/2025</span>
<strong>Referring Provider:</strong> <span class=clinicalNoteMacroWysiwyg id= [id number] macroname=ReferringPhysician spantype=macro titl e=#ReferringPhysician> </span>
<strong>Attending:</strong> <span class=clinicalNoteMacroWysiwyg id=[id number] macroname=AttendingPhysician spantype=macro title=&quot ;#AttendingPhysician>Theresa Kelley (Gynecological/Oncology), Annamarie Massey(Gynecological/Oncology)</span>
<span>
<span class=clinicalNo teSectionVisible id=[id number] internalbreaksection=false&quot ; originalname=Chief Complaint recognizeconcepts=true spantype=section suppressempty=false>Chief Complaint ([employer]):</span>
Surv eillance
<span class=clinicalNoteSectionVisible id=[id number] internalbreaksection=false originalname=HPI recognizeconcepts=&qu ot;true spantype=section suppressempty=false>History of Present Illness ([employer]):</span>
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 Here for surveillance.

<strong>TUMOR HISTORY:</strong> <span><ul> <li>12/31/17: Presented to [place] [facility] with 2 dayhistory of lower abdominal cramping, diarrhea, and bright red rectal bleeding. CT A/P demonstrated a 13.7 x 11.8 cm complex solid mass involving the left adnexa invading the sigmoid colon, thickeningof the wall of the descending colon, peritoneal carcinomatosis, para-aortic adenopathy and a 3.9 x 2.7 cm soft tissue mass right lung base.</li> <li>01/01/18: Transferred to [facility]. CT Chest d emonstrated multiple nodules of varying size identified both lungs predominantly in the right lung.CA125 = 250.7, CEA 1.4</li> <li>01/02/18: Colonoscopy no invasion or mass obstruction. Biopsy c/w ischemic pattern of injury. 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 Large mass in left adnexa 13.7 --> 6.7cm, no ascites, peritoneal implants improved, significant improvement in the retroperitoneal, para-aortic, and bilateral iliac lymphadenopathy</li> <li>05/30/18: Right lower lobe mass 12.2 x 5mm, less mass-like, adnexal mass decreased in size, resolution of peritoneal implants and lymphadenopathy</li> <li>01/24/18-05/07/18: <strong>Carbo/Taxol</strong> x 6 cycles, CA125 = 15</li> <li& gt;07/11/18: Exploratory laparotomy, total abdominal hysterectomy, bilateral salpingo-oophorectomy, bilateral retroperitoneal dissection, left ureterolysis, omentectomy, argon beam coagulation of tumor implants, cystoscopy. Optimal to <1cm residual. Uterus small and normal with exception of dense adhesions and fibrosis along the sigmoid colon mesentery. The left ovary and tube was enlarged and cystic measuring approximately 8cm in size with overall necrotic features. Ovary was ruptured intraop. This was densely adherent to the sigmoid mesentery. 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 No tumor in the uterus, omentum or contralateral ovary/tube.</li> <li>08/06/18-08/28/18: <strong>Completed C7/C8 carbo/taxol (Dr. Lacy).</strong></li> <li>09/24/18: CT C/A/P - shows an areaor architectural distortion in the medial aspect of the right lower lobe without a discrete mass. Lobulated mass in the left adnexa along the left pelvic sidewall is considerably decreased in size (2.3 x 1.2 cm).</li> <li>10/02/18-12/27/18: <strong>C9Y8-A3 of DEB trial (rucaparib +/- nivolumab vs. placebo)</strong></li> <li>01/20/19: CT C/A/P - Small oval shaped soft tissue mass In the left pelvis 1.7 x 0.9 cm, previously 2.3 x 1.2cm. Colonic diverticulosis. Stable left renal cyst. Small hiatal hernia.</li> <li>01/22/19: W7A7-Sglccwzfq or Placebo + Nivolumab or Placebo</li> <li>02/17/19: C6D1- Rucaparbib or Placebo +Nivolumab or Placebo - HELD Rucaparib or Placebo for 1 week w/ hyponatremia</li> <li>03/19/19: E6O1-Juaceqsahj or Placebo + Nivolumab or Placebo - HELD Rucaparib or Placebo for 1 week w/ hyponatremia. Cervical node palpated (right anterior)</li> <li>03/29/19:Restarted study drug.</li> <li>04/08/19: Head/neck US -intraparotid or juxta parotid mass es within the upper neck bilaterally, corresponding to the area of palpable concern, measuring 1.9 cm on the right and 1.5 cm on the left.</li> <li>04/15/19: CT of the neck 1.8 x 1.6 x1.6 circumscribed mass located in the right parotid tail with a solid enhancing and cystic component, 1.9 x 1.4 x 1.4 cm circumscribed mass in the left parotid tail which appears to be primarily solid and demonstrated homogenous enhancement</li> <li>04/03/19: S/p consult with nephrology.Thinking dietary related. Added salt and following labs.</li> <li>04/08/19: CTC/A/P -stable 17 x 8 mm soft tissue density along the left pelvic sidewall, right paramidline subcutaneous anterior abdominal wall loculated fluid collection measuring 3.3 cm consistent with a postopseroma, no other evidence of recurrent disease.</li> <li>04/16/2019-06/11/19: C8D1- C10D1 Deb trial</li> <li>07/07/19: CT C/A/P W - scattered 2-3 mm pulmonary nodulesbilaterally. No suspicious pulmonary nodule. Stable sub cm a portal caval lymph node. Stable 17 x 8mm soft tissue density along the left external iliac chain/pelvic side wall. Small hernia measuring2.1 cm, adjacent to the midline incision. </li> <li>07/09/19-09/01/19: [id number] GOG-3020 DEB Clinical Trial</li> <li>09/23/2019: CT C/A/P W - stable small bilateral pulmonary nodules measuring 2-3 mm. Mediastinal lymph nodes measuring up to 9 mm. Mildcardiomegaly. Stable cysts left kidney. Stable right paramidline abdominal wall hernia. Stable mild residual soft tissue density along the left common iliac chain measuring 17 x 8 mm, series 2. Stable bilateral subcm inguinal lymph nodes. </li> <li>09/29/2019-02/16/2020: [id number] GOG-3020 DEB Clinical trial, CA125 = 8.1</li> <li>03/10/2020: CT C/A/P W -3 mm pleural-based nodule in the periphery of the right upper lobe unchanged; 1.9 cm simple cystin the upper pole of the left kidney; previously seen soft tissue nodule in the left common iliac artery has resolved; ventral abdominal hernia just right of the umbilicus with fat protruding throughthe defect unchanged. IGLESIA. </li> <li>03/15/2020-09/27/20: [id number] GOG-3020 DEB Clinical trial</li> <li>10/25/20: <strong>Completed GOG-3020 DEB Clinical trial. CA125 = 6.90</strong></li> <li>11/19/20: CT CAP - upper limits normal mediastinal lymph nodes, mild fatty infiltration of the liver, simple cysts left kidney, multiple subcm retroperitoneal lymph nodes unchanged, mild residual density along the left common iliac chain unchanged; IGLESIA. CA125 = result pending </li> <li>02/09/21: CT CAP- stable mild soft tissue density along left iliac chain. No evidence of disease. Stable subcentimeter mediastinal and retroperitoneal lymph nodes. Abdominal wall hernia measuring 3.2cm. Sigmoid diverticulosis. </li> <li>08/08/21 CA CAP-IGLESIA. Mildly comminuted and displaced fracture posterior right rib 5.</li> <li>11/10/21: Stable residual density in left iliac chain measuring 1.8cm. Stable upper limit of normal precarinal lymph nodes. Stable exam to other CT scans.IGLESIA. </li> <li>05/09/22: Interval decrease in size of mediastinal lymphadenopathy. IGLESIA. Central pulmonary artery enlargement, </li> <li>11/06/2022: CT CAP w/ co ntrast: negative for recurrent or metastatic disease. Umbilical hernia noted.
</li> <li>05/10/2023 CT C/A/P: IGLESIA</li> <li>09/04/23: CT C/A/P IGLESIA</li> <li>03/03/24: CT CAP IGLESIA</li> <li>09/09/24: CT CAP IGLESIA </li></ul></span><span><span></span></span>
<s cleaning><span></span></span>
<span><span></span></spa n>
<span><span></span></span>
<span><span><span class=clinicalNoteSectionVisible id=[id number] interna lbreaksection=false originalname=Genetic Testing recognizeconcepts=true spantype=section suppressempty=false>Genetic Testing ([employer] [facility] y):</span>
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
<span><span><span></span></span></spa n>
<span><span><span></span></span></span>
<span><span><span></span></span></span></span></span&gt ;
<span><span><span><span class=clinicalNoteSectionVisible id=[id number] internalbreaksection=false originalname=I nterval History ([employer]) recognizeconcepts=true spantype=section suppressempty=false>Interval History ([employer])</span></span></sp an>
Helen is here today for a surveillance visit. She's doing fine.&n bsp; Denies vaginal bleeding or pain. No significant, unexpected weight loss. Reports hard stools. Takes 1 tab docusate sodium prn with relief. Asking if there's anything else she can do. Still smoking; has Chantix RX. Considering cessation.

<span class=clinicalNoteSectionVisible id=[id number] internalbreaksection=false originalname=Review of Systems recognizeconcepts=true spantype=section suppressempty="false>Review of Systems:</span>
A complete 14-point review of systems is negative except as <span>noted </span>in the above history of present illness .</span>

<span class=clinicalNoteSectionVisible id=guru [id number] internalbreaksection=false originalname=Past Medical H istory recognizeconcepts=true spantype=section suppressempty=false>Past Medical History:</span>
<ul> <li>Hypertension</li> <li>Obesity</li> <li>Hyperlipidemia</li> <li>Tobacco dependence</li> <li>Adenocarcinoma - electric meter installer helper origin</li> <li>BRCA2 mutation</li> <li>Pulmonary nodules - 06/2019 </li> <li>Hernia, paramidline </li></ul>
<span class=clinicalNoteSectionVisible id=[id number] internalbreaksection=false originalname=Past Surgical History" recognizeconcepts=true spantype=section suppressempty=false>Surgical History:</span>
<ul> <li>Colonoscopy
</li> <li>Neck lymph node dissection (benign) 15 years ago
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
<strong>GYNECOLOGIC HISTORY: </strong><ul> <li>Menarche: 12 LMP: age 49</li> <li>Menopause: yes</li> <li>History of abnormal paps:</li> <li>History of STI: no</li> <li>History offibroids: no</li> <li>History of ovarian cysts: no</li> <li>History of endometriosis: no</li> <li>History of OCP use: 5-6 years History of HRT: never</li> <li>Sexually active: yes</li></ul><strong>OBSTETRIC</strong> &lt ;strong>HISTORY: </strong> <ul> <li>
</li> <li> x 2
</li> <li>MAB x 1</li></ul><span></span>
<span></span>
<span><span class=clinicalNoteSectionVisible id=[id number] internalbreaksection=false originalname=Allergies recognizeconcepts=true spantype=section suppressempty=false>Allergies:</span>
<span class=clinicalNotWVUMed[facility] HospitalcrSkoodat id=[id number] macroname=Allergies parameters="ListType:Bulleted,ValueIfNull:NKDA spantype=macro title=#Allergies(ListType:Bulleted,ValueIfNull:NKDA)><ul> <li>duloxetine HCl</li></ul></span>
<span><span class=clinicalNoteSectionVisible id=[id number] internalbreaksection=false originalname=Medications" recognizeconcepts=true spantype=section suppressempty=false&g t;Medications:</span>
<span class=clinicalNoteMacrDaily Sales Exchangeh[facility] id=heber camacho_[id number] macroname=CurrentMedications parameters=ListType:Bullet ed spantype=macro title=#CurrentMedications(ListType:Bulleted)><ul> <li>Ibuprofen Oral 400 mg tablet 1 TABLET(S) PO Q8H PRN pain</li> <li>Aspirin Oral 81 mg tablet,delayed release (DR/EC) 1 tablet PO daily</li> <li>Farxiga (Dapagliflozin Oral) 10 mg tablet</li> <li>Oxygen at night</li> <li>Losartan Oral 25 mg tablet 1 tablet PO daily</li> <li>Gabapentin 300 mg capsule Take 2 capsules by mouth BID</li> <li>Incruse Ellipta (Umeclidinium Inhaler 62.5 mcg/actuation)</li> <li>Furosemide Oral 20 mg tablet</li> <li>PreserVision AREDS 2 (Vit C,Y-Yc-Hqympk-Lutein-Zeaxan Oral 250 mg-90 mg-40 mg-1 mg)</li> <li>Cholecalciferol Oral orally daily</li> <li>Carvedilol Oral 12 mg</li> <li>Atorvastatin Oral 20 mg orally daily</l i></ul></span></span></span>

<span class=clinicalNoteSectionVisible id=[id number] internalbreaksection=false originalname=Family History recognizeconcepts=true spantype=section suppressempty=false>Family History:</span>
<ul> <li>Mother lymphoma</li> <li>Father - CAD</li> <li>No known history of breast, uterine, ovary, pancreatic, prostate, melanoma or colon cancer</li></ul>
<span class=clinicalNoteSectionVisible id=[id number] internalbreaksection=false originalname=Social History recognizeconcepts=&q uot;true spantype=section suppressempty=false>Social History:</s cleaning>
<span class=clinicalNoteMacroWysiwyg id=[id number] macroname=PatientSmokingStatus parameters=Label:Smoking Status: ,ValueIfNu ll:Not recorded spantype=macro title=#PatientSmokingStatus(Label:Smoking Sta tus: ,ValueIfNull:Not recorded)>Smoking Status: Smoking Tobacco : Current every day smoker; Smokeless Tobacco : Never used smokeless tobacco; Vaping : Never vaped</span>
. Lives with her in [place]. 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 Smokes 1/2 PPD. 40 years. 5-6 drinks per week. No illicit substances.
<span class=clinicalNoteSectionVisible" id=[id number] internalbreaksection=false originalname=&qu ot;Health Maintenance: recognizeconcepts=true spantype=section suppres sempty=false>Health Maintenance:</span>
<span><ul> <li>Colonoscopy on 01/02/2018</li> <li>DEXA: 11/17/20 - osteopenia: left femoral neck (-1.3), right femoral neck (-1.1)</li> <li>Mammogram - 04/2023 BI-RADS Category 0 s/p ultrasound with benign findings per patient report </li> <li>Breast MRI: 11/26/23 BI-RADS Category 1: Negative. </li> <li>Pap Smear on 01/16/2018 NIL</li></ul></span>
<span class=clinicalNoteSectionVisible id=[id number] internalbreaksection=false originalname=Vital Signs recognizeconcepts=true spantype=section suppressempty=false>Vital Signs:</span>
<span class=clinicalNoteMacroWysiwyg id=[id number] macroname=PatientVitalSigns parameters=LookBackDays:1 spantype=macro title=#PatientVitalSigns(LookBackDays:1)>Blood pressure: 128/80, Sitting, L arm, Large, Pulse: 66, Temperature: 98.3 F, Respirations: 16, O2 sat: 91%, At Rest, Room Air, Pain Scale: 0, Height: 64.5 in, Weight: 228.5 lb, BSA: 2.08, BMI: 38.62 kg/m2</span>
<span class=clinicalNoteSectionVisible id=&qu ot;section_[id number] internalbreaksection=false originalname=Performa nce Status ECOG recognizeconcepts=true spantype=section suppressempty= false>Performance Status ECOG/Karnofsky</span>
<span class=cl inicalNoteMacroWysiwyg id=[id number] macroname=ECOGStatus parameters=LookBackDays:All spantype=macro title=#ECOGStatus(LookBackD ays:All)>1 Symptoms, but ambulatory. Restricted in physically strenuous activity, but ambulatory and able to carry out work of a light or sedentary nature (e.g., light housework, office work). (Date: 05/23/2021)</span>
<span class=clinicalNoteMacroWysiwyg id="[id number] macroname=KarnofskyStatus parameters=LookBackDays:All spantype=macro title=#KarnofskyStatus(LookBackDays:All)>90%Able to carry on normal activity; minor signs or symptoms of disease. (Date: 11/22/2020)</span>

<span class=clinicalNoteSectionVisible id=[id number] internalbreaksection=false originalname=Physical Exam recogni zeconcepts=true spantype=section suppressempty=false>Physical Exam ([employer] [employer]):</span>
General: No acute distress, obese
Res piratory: Normal respiratory effort.
Heart: normal rate and good perfusion noted
Abdomen: obese, Soft, non-distended, non-tender to palpation, no palpable masses. Midline vertical scar. Ventral hernia at the level of the umbilicus- nontender to palpati on.
Extremities: No LE edema. Compression stockings
Lymphatics: No cervical, supraclavicular or inguinal adenopathy
Psych: Appropriate mood and affect.

Pelvic: NEFG. Atrophic vaginal mucosa without lesions or masses. No vaginal bleeding. Cervix, uterus, and adnexa surgically absent. Bimanual exam unremarkable without nodularity, masses, or pelvic fullness. RV exam deferred.
<span class=clinicalNoteSectionVisible id=&q uot;[id number] internalbreaksection=false originalname=Laborat ory Data recognizeconcepts=true spantype=section suppressempty=f alse>Laboratory Data:</span>
<span class=clinicalNoteMacroWysiwyg" id=[id number] macroname=RecentLabResultsTable parameters=& quot;OptionalFlowsheetCategory:CBC,Label:CBC spantype=macro title=#RecentLab ResultsTable(OptionalFlowsheetCategory:CBC,Label:CBC)>CBC<table border=1 sty le=width:100%> <tbody> <tr> <th align=left>LabResults</> <td>09/15/2024</td> <td>03/17/2024</td> <td>09/07/2023</td> <td>09/04/2023</td> <td>05/23/2023</td> <td>02/20/2023</td> </tr> <tr> <th align=left> CBC</th> <td>
</td> <td>
</td> <td>
</td> <td>
</td> <td>
</td> <td>
</td> </tr> </tbody></table></span>
<span [facility]=clinicalNoteMac[facility] id=[id number] macroname=RecentLabResultsTable parameters =OptionalFlowsheetCategory:Chemistries,Label:CMP spantype=macro title= #RecentLabResultsTable(OptionalFlowsheetCategory:Chemistries,Label:CMP)>CMP<tab le border=1 style=width:100%> <tbody> <tr> <th align=left&quo t;>LabResults</th> <td>09/15/2024</td> <td>03/17/2024</td> <td&g t;09/07/2023</td> <td>09/04/2023</td> <td>05/23/2023</td> <td>02/20/2023</td> </tr> <tr> <th align=left> Chemistries</th> <td>
</td> <td>
</td> <td>
</td> <td>
</td> <td>
</td> <td>
</td> </tr> </tbody></table></span>
<span class="clinicalNoteMacroWys[facility] id=[id number] macroname=RecentLabResultsTable parameters=OptionalFlowsheetCategory:Coags,Label:Coagulation spantype=&quo t;macro title=#RecentLabResultsTable(OptionalFlowsheetCategory:Coags,Label:Coagulation) "></span>
<span class=clinicalNoteMacroW[facility] id=macro_[id number] macroname=RecentLabResultsTable parameters=OptionalFlowsheet Category:Tumor Markers spantype=macro title=#RecentLabResultsTable(OptionalF lowsheetCategory:Tumor Markers)><table border=1 style=width:100%> <tbody> <tr> <th align=left>LabResults</th> <td>09/15/2024</td> <td>03/17/2024</td> <td>09/07/2023</td> <td>09/04/2023</td> <td>05/23/2023</td> <td>02/20/2023</td> </tr> <tr><th align=left> TumorMarkers</th> <td>
</td> <td>
</td> <td>
</td> <td>
</td> <td>
</td> <td>
</td> </tr> <tr> <td> CA 125 U/mL</td> <td>8.60</td> &lt ;td>12.40</td> <td>9.80</td> <td>
</td> <td>10.30</td> <td>
</td> </tr> </tbody></table></span>

<span class=clinicalNoteSectionVisible id=[id number] internalbreaksection=false originalname=Imaging recognizeconcepts=true spantype=section suppressempty=false>Imaging:</span>
<u>As above </u>
<span class=clinicalNoteSectionVisible id=[id number] internalbreaksection=false originalname=Problems: recognizeconcepts=true spantype=section suppressempty=false>Problems:</span>
<span></span><span class="clinicalNoteMacroWysiwyg id=[id number] macroname=Problems" parameters=ListType:Bulleted spantype=macro title=#Problems(ListType:Bulleted)><ul> <li>Primary malignant neoplasm of fallopian tube (disorder) (Stage Date: 07/26/2018, Stage IVB
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) ( First record:06/11/2019 Last record:06/11/2019; )</li> <li>BRCA2 gene mutation positive (finding) ( First record:10/16/2018 Last record:10/16/2018; )</li> <li>Candidal vulvovaginitis (disorder)</li> <li>Cardiomegaly</li> <li>Congestive heart failure (disorder)</li> <li>History of fallopian tube cancer</li> <li>Hypertensive disorder, systemic arterial(disorder) ( First record:03/19/2019 Last record:03/19/2019; )</li> <li>Hyponatremia</li> <li>Hypoxia</li> <li>Left ventricular hypertrophy</li> <li>Obesity (disorder) ( First record:06/11/2018 Last record:06/11/2018; )</li> <li>Osteopenia</li> <li>Other long-term current use of drug therapy ( First record:05/07/2019 Last record:05/07/2019 Other Migrated ICD10: Z79.899 ; )</li> <li>Personal history of fallopian tube cancer</li> <li>Postmenopausal state (finding)</li> <li>Primary malignant neoplasm of female genital organ (disorder) ( First record:01/16/2018 Last record:07/26/2018; )</li> <li>Secondary peripheral neuropathy (disorder) ( First record:07/26/2018 Last record:07/26/2018; )</li> <li>Secondary polycythemia</li> <li>Tobacco dependence syndrome (disorder) ( First record:01/16/2018 Last record:01/16/2018 Other Migrated ICD10: F17.200 ; ) </li></ul></span>

<span class=clinicalNoteSectionVisible id=[id number] internalbreaksection=false originalname =Assessment & Plan recognizeconcepts=true spantype=section" suppressempty=false>Assessment & Plan ([employer] [employer] On[employer]):</span>
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 <span>Completed maintenance therapy on the (GOG-3020) DEB trial 10/25/20. Here today for surveillance. </span>

1. Stage IVB fallopian tube cancer
<ul> <li>Guyimvjb63/31/24 CT scan; negative for any recurrent or metastatic disease. </li> <li><strong>Per study, no longer required interval CT scans; discussed with Helen today. Continue pelvic exam, CA125 q6 months until progression or withdrawal from study. Discussed will reserve CT for new symptoms/findings. </strong></li> <li>The DEB trial released results finding that the combination of rucaparib and nivolumab did not meets its primary endpoint of improving progression free survival in therandomized patient population and in turn have unblinded treatment regimens for all participating study participants. Monik received Arm B of Oral Rucaparib + IV Placebo. this information was reviewed with Monik at previous visit. </li></ul>2. BRCA2 mutation<ul> <li>Recommend alternating mammogram and breast MRI q6 months.
<ul> <li>Completed Breast MRI 11/2024- BI-RADS Category 1; prefers this done [facility]. Repeat for November, ordered. </li> <li>mammogram 05/2024 per pt; : BI-RADS Category 2: Benign. Repeat in May; Monik will schedule. </li> </ul> </li> <li>Continue yearly skin check due to melanoma risk.</li> <li>Recommend cascade testing for family members.</li></ul>3. Parotid gland masses<ul> <li>Bilateral parotid gland masses. Stable. </li> <li>S/p consult with ENT. Instructedto follow up only if notable growth on self exam. 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 Negative for malignancy.</li> <li>not discussed today. </li></ul>4. Tobacco dependence<ul> <li>Continued to insurance counselor about smoking cessation and long-term effects of smoking on health. </li> <li>smoking 1/2 PPD right now; motivated to quit. Has Chantix RX but hasn't used yet...considering. </li></ul>5. Hypoxia/COPD<ul> <li>Chronic for patient. S/p Pulmonology consult </li> <li>wears O2 at night. </li> <li>not discussed today </li></ul>6. Neuropathy - Grade 2<ul> <li>Previously trialed decreasing Gabapentin 100mg BID; unable to tolerate. Continue on 200mg BID</li> <li>No longer using Medical Cannabis.</li> <li>S/p trial of Cymbalta. Developed rash so discontinued.</li> <li>S/p consult with Neurology. EMG showed carpel tunnel syndrome in wrists, bilaterally; and polyneuropathy.</li> <li>Previously discussed how tobacco use can affect peripheral blood flow andworsen neuropathy symptoms. </li> <li>not discussed today </li></ul>7. Hernia<ul> <li>paramidline hernia, in the fascial defect. Adjacent to the midline incision. </li> <li>Asymptomatic; continue monitor unless she becomes symptomatic/painful/unable to have regular BMs. Discussed keeping bowels soft withstool softeners prn (docusate, miralax), increased water intake and regularly activity. &am p;nbsp;</li></ul>8. CHF
<ul> <li>follows with cardiology, [facility] Q 6 months. </li></ul>RTC 6 months or sooner prn&l t;br>

<span class=clinicalNoteSectionVisible id=section_0 [id number] internalbreaksection=false originalname=Plan for Pain recognizeconcepts=true spantype=section suppressempty=false>Pain Care Management:</span>
<span><span class=clinicalNoteMacroWysiwyg id=[id number] macroname=PatientPainScale parameters=&quo t;Label:Pain Scale: ,LookBackDays:0,ValueIfNull:Not recorded on visit spantype=macro" title=#PatientPainScale(Label:Pain Scale: ,LookBackDays:0,ValueIfNull:Not recorded on visit)>Pain Scale: 0</span></span></span>
<span><span>
<span class=clinicalNoteSectionVisible id=[id number] internalbreaksection=false originalname=Patient Care Management recognizeco ncepts=true spantype=section suppressempty=false>Patient Care needs:</span>
<span class=clinicalNoteMacroWysiwyg id=[id number] macroname=DepressionStatus parameters=Label:Depressions Status: ,ValueIfNull:Not recorded on visit spantype=macro title=#DepressionStatus(Molly ramseyel:Depressions Status: ,ValueIfNull:Not recorded on visit)>Depressions Status: Was not screened Reason: Patient Refused; Screening Date: 03/17/2025</span>
Psycho-Social PHQ-9 Follow-up Plan (if applicable):
<span><span class=clinicalNote[facility]" id=[id number] macroname=PatientSmokingStatus parameters=&q uot;Label:Smoking Status: ,ValueIfNull:Not recorded spantype=macro title=#Pa tientSmokingStatus(Label:Smoking Status: ,ValueIfNull:Not recorded)>Smoking Status: Smoking Tobacco : Current every day smoker; Smokeless Tobacco : Never used smokeless tobacco; Vaping : Never vaped</span></span></span></span><span><span></span>< /span>

<hr><span><strong>Pippa Sy CNP</strong>
<span [facility]Not[facility] id=[id number] macroname=LocationPhoneNumber parameters=Label:Phone: spantype=macro" title=#LocationPhoneNumber(Label:Phone: )> </span>&lt ;br><span [facility] id=[id number] mac roname=LocationFaxNumber parameters=Label:Fax: spantype=macro t itle=#LocationFaxNumber(Label:Fax: )> </span>

Copy to: <span class=clinicalNoteMac[facility] id=[id number]" macroname=NoteRecipients spantype=macro title=#NoteRecipients>Silver Whalen MD
FAX</span></span>

</div>

<div><span class=eSignSignature>Electronically signedby Pippa Peacockler USER EXPERIENCE MANAGER 03/17/2025 14:00 CDT</span></div></body></html> * MOLDER FOAM RUBBER Follow-Up <html><head></head><body><div style=text-align:center><span class=clinicalNoteMacroWysiwyg id=[id number] macroname=&quo t;PracticeLetterhead spantype=macro title=#PracticeLetterhead><img uvgmek=[id number] src=[email or web address]?[email or web address]&qdlfVjpghfniudTv=[id number] ytxkl=[id number]></span>

<strong>GYNECOLOGIC ONCOLOGY FOLLOW-UP VISIT</strong>
</div><div>
<strong>Patient Name:</strong> <span class=clinicalNoteMacroWysiwyg id=[id number] macroname=PatientName spantype=macro title=#PatientName>MONIK GALLEGO</span> <strong>:</strong> <span class=clinicalNoteMacroWysiwyg id=[id number] macroname=PatientDateOfBirth spantype="macro title=#PatientDateOfBirth>1950</span>
<strong>Date of Visit:</strong> <span class=clinicalNoteMacroWysiwyg id=macro_[id number] macroname=EffectiveDate spantype=macro title=#Eff ectiveDate>09/15/2024</span>
<strong>Referring Provider:</strong> <span class=clinicalNoteMacroWysiwyg id=[id number] macronam e=ReferringPhysician spantype=macro title=#ReferringPhysician&gt ; </span>
<strong>Attending:</strong> <span class=clinicalNoteMacroWysiwyg id=[id number] macroname= AttendingPhysician spantype=macro title=#AttendingPhysician>Romelia Kelley (Gynecological/Oncology), Annamarie Shilpa (Gynecological/Oncology)</span>
<span>
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
Surveillance
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 Here for surveillance. &lt ;br>
<strong>TUMOR HISTORY:</strong> <span><ul> <li>12/31/17: Presented to [place] ED with 2 day history of lower abdominal cramping, diarrhea, and bright red rectal bleeding. CT A/P demonstrated a 13.7 x 11.8 cm complex solid mass involving the left adnexa invading the sigmoid colon, thickening of the wall of the descending colon, peritoneal carcinomatosis, para-aortic adenopathy and a 3.9 x 2.7 cm soft tissue mass right lung base.</li> <li>01/01/18: Transferred to [facility]. CT Chest demonstrated multiple nodules of varying size ident ified both lungs predominantly in the right lung. CA125 = 250.7, CEA 1.4</li> <li>01/02/18: Colonoscopy ? no invasion or mass obstruction. Biopsy c/w ischemic pattern of injury. 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 Large mass in left adnexa 13.7 --> 6.7cm, no ascites, peritoneal implants improved, significant improvement in the retroperitoneal, para-aortic, and bilateral iliac lymphadenopathy</li> <li>05/30/18: Rightlower lobe mass 12.2 x 5mm, less mass- like, adnexal mass decreased in size, resolution of peritoneal implants and lymphadenopathy</li> <li>01/24/18-05/07/18: <strong>Carbo/Taxol</strong> x 6 cycles, CA125 = 15</li> <li>07/11/18: Exploratory laparotomy, total abdominal hysterectomy, bilateral salpingo-oophorectomy, bilateral retroperitoneal dissection, left ureterolysis, omentectomy, argon beam coagulation of tumor implants, cystoscopy. Optimal to <1cm residual. Uterus small and normal with exception of dense adhesions and fibrosis along the sigm oid colon mesentery. The left ovary and tube was enlarged and cystic measuring approximately 8cm insize with overall necrotic features. Ovary was ruptured intraop. This was densely adherent to the sigmoid mesentery. 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 No tumor in the uterus, omentum or contralateral ovary/tube.</li> <li>08/06/18- 08/28/18: <strong>Completed C7/C8 carbo/taxol (Dr. Lacy).</strong></li> <li>09/24/18: CT C/A/P - shows an area or architectural distortion in the medial aspect of the right lower lobe without a discrete mass. Lobulated mass in the left adnexaalong the left pelvic sidewall is considerably decreased in size (2.3 x 1.2 cm).</li> <li>10/02/18-12/27/18: <strong>F6K6-X5 of DEB trial (rucaparib +/- nivolumab vs. placebo)</s angelica></li> <li>01/20/19: CT C/A/P - Small oval shaped soft tissue mass In the left pelvis 1.7 x 0.9 cm, previously 2.3 x 1.2cm. Colonic diverticulosis. Stable left renal cyst. Small hiatal hernia.</li> <li>01/22/19: V0O6-Eslmnrrcs or Placebo + Nivolumab or Placebo</li> <li>02/17/19: K6G6-Pzijnfndoy or Placebo + Nivolumab or Placebo - HELD Rucaparib or Placebo for 1 week w/ hyponatremia</li> <li>03/19/19: G8J9-Mxwvividxw or Placebo + Nivolumab or Placebo - HELD Rucaparib or Placebo for 1 week w/ hyponatremia. Cervical node palpated (right anterior)</li> <li>03/29/19: Restarted study drug.</li> <li>04/08/19: Head/neck US -intraparotid or juxta parotid masses within the upper neck bilaterally, corresponding to the area of palpable concern, measuring 1.9 cm on the right and 1.5 cm on the left.</li><li>04/15/19: CT of the neck 1.8 x 1.6 x 1.6 circumscribed mass located in the right parotid tail with a solid enhancing and cystic component, 1.9 x 1.4 x 1.4 cm circumscribed mass in the left parotid tail which appears to be primarily solid and demonstrated homogenous enhancement</li> <li>04/03/19: S/p consult with nephrology. Thinking dietary related. Added salt and following labs.</li> <li>04/08/19: CT C/A/P -stable 17 x 8 mm soft tissue density alongthe left pelvic sidewall, right paramidline subcutaneous anterior abdominal wall loculated fluid col lection measuring 3.3 cm consistent with a postop seroma, no other evidence of recurrent disease.</li> <li>04/16/2019-06/11/19: C8D1- C10D1 Deb trial</li> <li>07/07/19: CT C/A/P W - scattered 2-3 mm pulmonary nodules bilaterally. No suspicious pulmonary nodule. Stable sub cm a portal caval lymph node. Stable 17 x 8 mm soft tissue density along the left external iliac chain/pelvic side wall. Small hernia measuring 2.1 cm, adjacent to the midline incision. </li> <li>07/09/19-09/01/19: [id number] GOG-3020 DEB Clinical Trial</li> <li>09/23/2019: CT C/A/P W - stable small bilateral pulmonary nodules measuring 2-3 mm. Mediastinal lymph nodes measuring up to 9 mm. Mild cardiomegaly. Stable cysts left kidney. Stable right paramidline abdominal wall hernia. Stable mild residual soft tissue density along the left common iliac chain measuring 17 x 8 mm, series 2. Stable bilateral subcm inguinal lymph nodes. </li> <li>09/29/2019-02/16/2020: [id number] GOG-3020 DEB Clinical trial, CA125 = 8.1</li> <li>03/10/2020: CT C/A/P W -3 mm pleural-based nodule in the periphery of the right upper lobe unchanged; 1.9 cm simple cyst in the upper pole of the left kidney; previously seen soft tissue nodule in the left common iliac artery has resolved; ventral abdominal hernia just right of the umbilicus with fat protruding through the defect unchanged. IGLESIA. </li> <li>03/15/2020-09/27/20: [id number] GOG-3020 DEB Clinical trial</li> <li>10/25/20: <strong>Completed GOG-3020 DEB Clinical trial. CA125 = 6.90</strong></li> <li>11/19/20: CT CAP - upper limits normal mediastinal lymph nodes, mild fatty infiltration of the liver, simple cysts left kidney, multiple subcm retroperitoneal lymph nodes unchanged, mild residual density along the left common iliac chain unchanged; IGLESIA. CA125 = result pending </li> <li>02/09/21: CT CAP- stable mild soft tissue density along left iliac chain. Noevidence of disease. Stable subcentimeter mediastinal and retroperitoneal lymph nodes. Abdominal wall hernia measuring 3.2cm. Sigmoid diverticulosis. </li> <li>08/08/21 CA CAP-IGLESIA. Mildly comminuted and displaced fracture posterior right rib 5.</li> <li>11/10/21: Stable residual density in left iliac chain measuring 1.8cm. Stable upper limit of normal preca rinal lymph nodes. Stable exam to other CT scans. IGLESIA. </li> <li>05/09/22: Interval decrease in size of mediastinal lymphadenopathy. IGLESIA. Central pulmonary artery enlargement, </li> <li>11/06/2022: CT CAP w/ contrast: negative for recurrent or metastatic disease. Umbilical hernia noted.
</li> <li>05/10/2023T C/A/P: IGLESIA</li> <li>09/04/23: CT C/A/P IGLESIA</li> <li>03/03/24: CT CAP IGLESIA</li> <li>09/09/24: CT CAP IGLESIA </li></ul></span><span>&lt ;span></span></span>
<span><span></span></span><b r><span><span></span></span>
<span><span><span cl ass=clinicalNoteSectionVisible id=[id number] internalbreaksect ion=false originalname=Genetic Testing recognizeconcepts=true sp antype=section suppressempty=false>Genetic Testing (Exploration Geologist Oncology):</sp an>
<ul> <li>10/02/18: BRCA2 mutation c.2312T>G (p.[id number])</li>& lt;/ul>
<span><span><span></span></span></span><b r><span><span><span></span></span></span></span></sp an>
<span><span><span><span class=clinicalNoteSectionVisible" id=[id number] internalbreaksection=false originalname=& quot;Interval History (Exploration Geologist Oncology) recognizeconcepts=true spantype=section suppressempty=false>Interval History (Exploration Geologist Oncology)</span></span>& lt;/span>
Monik is here today for a surveillance exam. She doing fine. Denies vaginal bleeding, abdominal pain or bloating. Eating without issue. Normal bladder and bowel function. Continues on Gabapentin 200 mg BID-CIPN stable. Recently missed morning dose of gabapentin and could feel worsening neuropathy in bilateral LE but mid day. Due for breast MRI in November; would like to go to [facility] for imaging. Issues with coverage in past, so had to go to [facility] with last scan; didn't tolerate positioning. Reports had mammogram in April, and was normal. Some STROUD but none at rest. Has Chantix RX but hasn't used it, yet. Reports creatinine was elevated at most recent Cardiology appt; lasix dosage cut in half.

<span class=clinicalNoteSectionVisible id=section [id number] internalbreaksection=false originalname=Review of Systems& quot; recognizeconcepts=true spantype=section suppressempty=false&quot ;>Review of Systems:</span>
A complete 14-point review of systems is negative except as <span>noted </span>in the above history of present illness.</span>

<span class=clinicalNoteSectionVisible id=[id number] internalbreaksection=false originalname=Past Medical History recognizeconcepts=true spantype=section suppressempty=false>Past Medical History:</span>
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
<span class=clinicalNoteSectionVisible id=[id number] internalbreaksection=false originalname=Past Surgical History recognizeconce pts=true spantype=section suppressempty=false>Surgical Histor y:</span>
<ul> <li>Colonoscopy
</li> <li>Neck lymph node dissection (benign) 15 years ago
</li> <li>Exploratory laparotomy, total abdominal hysterectomy, bilateral salpingo-oophorectomy, bilateral retroperitoneal dissection, left ureterolysis, omentectomy, cystoscopy - 07/11/18</li></ul>
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
<strong>GYNECOLOGIC HISTORY: </strong><ul> <li>Menarche: 12 LMP: age 49</li> <li>Menopause: yes</li> <li>History of abnormal paps:</li> <li>History of STI: no</li> <li>History of fibroids: no</li> <li>History of ovarian cysts: no</li> <li>History of endometriosis: no</li> <li>History of OCP use: 5-6 years History of HRT: never</li> <li>Sexually active: yes</li></ul><strong>OBSTETRIC</strong> <strong>HISTOR Y: </strong> <ul> <li>
</li> <li> x 2
</li> <li>MAB x 1</li></ul><span></span>
<span><span class=clinicalNoteSectionVisible id=section_[id number] internalbreaksection=false originalname=Allergies recognizeconcepts=true spantype=section suppressempty=false>Allergies:</span>
<span [facility]=clinicalNotWV[facility]ysiw id=macro_[id number]" macroname=Allergies parameters=ListType:Bulleted,ValueIfNull:NKDA spant ype=macro title=#Allergies(ListType:Bulleted,ValueIfNull:NKDA)><ul> <li>duloxetine HCl</li></ul></span>
<span><span class=&qu ot;clinicalNoteSectionVisible id=[id number] internalbreaksection="false originalname=Medications recognizeconcepts=true spantype="section suppressempty=false>Medications:</span>
<span class =clinicalNotWV[facility]iwyg id=[id number] macroname=CurrentM edications parameters=ListType:Bulleted spantype=macro title=#Cu rrentMedications(ListType:Bulleted)><ul> <li>Incruse Ellipta (Umeclidinium Inha ler 62.5 mcg/actuation)</li> <li>Ibuprofen Oral 400 mg tablet 1 TABLET(S) PO Q8H PRN pain</li> <li>Aspirin Oral 81 mg tablet,delayed release (DR/EC) 1 tablet PO daily</li> <li>Losartan Oral 25 mg tablet 1 tablet PO daily</li> <li>Atorvastatin Oral 20 mg orally daily</li> <li>Carvedilol Oral 18 mg</li> <li>Farxiga (Dapagliflozin Oral) 10 mg tablet</li> <li>Oxygen at night</li> <li>Gabapentin 300 mg capsule Take 2 capsules by mouth BID</li> <li>Furosemide Oral 20 mg tablet</li> <li>PreserVision AREDS 2 (Vit C,V-Lm-Ojdfcm-Lutein-Zeaxan Oral 250 mg-90 mg-40 mg-1 mg)</li><li>Cholecalciferol Oral orally daily</li></ul></span></span></span>

<span class=clinicalNoteSectionVisible id=[id number] internalbreaksection=false originalname=Family History rec ognizeconcepts=true spantype=section suppressempty=false>Family History:</span>
<ul> <li>Mother lymphoma</li> <li>Father - CAD</li> <li>No known history of breast, uterine, ovary, pancreatic, prostate, melanoma or colon cancer</li></ul>
<span class=clinicalNoteSectionVisible id=section_[id number] internalbreaksection=false originalname=Social History recognizeconcepts=true spantype=section suppressempty=false>Social History:</span>
<span class=clinicalNoteMacroWysiwyg id=[id number] macroname=PatientSmokingStatus par ameters=Label:Smoking Status: ,ValueIfNull:Not recorded spantype=macro title =#PatientSmokingStatus(Label:Smoking Status: ,ValueIfNull:Not recorded)>Smoking Status: Smoking Tobacco : Current every day smoker; Smokeless Tobacco : Never used smokeless tobacco; Vaping : Never vaped</span>
. Lives with her in [place]. 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 Smokes 1/2 PPD. 40 years. 5-6 drinks per week. No illicit substances.
<span class=clinicalNoteSectionVisible id=section_[id number] internalb reaksection=false originalname=Health Maintenance: recognizeconcepts=true spantype=section suppressempty=false>Health Maintenance:</sp an>
<span><ul> <li>Colonoscopy on 01/02/2018</li> <li>DEXA: 11/17/20 - osteopenia: left femoral neck (-1.3), right femoral neck (-1.1)</li> <li>Javad mogram - 04/2023 BI-RADS Category 0 s/p ultrasound with benign findings per patient report </li> <li>Breast MRI: 11/26/23 BI-RADS Category 1: Negative. </li> <li>Pap Smear on 01/16/2018 NIL</li></ul></span>
<span class=clinicalNoteSectionVisible id=section_[id number] inter nalbreaksection=false originalname=Vital Signs recognizeconcepts=true" spantype=section suppressempty=false>Vital Signs:</span>
<span class=clinicalNoteMaEneysnicole id=[id number] macro name=PatientLauratalYen parameters=LookBackDays:1 spantype=macro title=#PatientVitalLidias(LookBackDays:1)>Blood pressure: 112/64, Sitting, R arm, Large, Pulse: 64, Temperature: 98.1 F, Respirations: 16, O2 sat: 92%, At Rest, Room Air, Pain Scale: 0,Height: 64.5 in, Weight: 233.5 lb, BSA: 2.1, BMI: 39.46 kg/m2</span>

<span class=clinicalNoteSectionVisible id=section_[id number] internalbreaksection=false originalname=Physical Exam recognizeconcepts=true" spantype=section suppressempty=false>Physical Exam (Exploration Geologist Oncology):</span>
General: No acute distress, well-appearing
Respiratory: Normalrespiratory effort.
Heart: normal rate and good perfusion noted <br&g t;Abdomen: Soft, non-distended, non-tender to palpation, no palpable masses. Midline vertical scar. Ventral hernia at the level of the umbilicus- nontender to palpation without overlying skin changes
Extremities: No LE edema. Compression stockings& nbsp;
Lymphatics: No inguinal adenopathy
Psych: Appr opriate mood and affect.

Pelvic: NEFG. Atrophic vaginal mucosa without lesions or masses. No vaginal bleeding. Cervix, uterus, and adnexa surgically absent. Bimanual exam unremarkable without nodularity, masses, or pelvic fullness. RV exam deferred.
<span class=clinicalNoteSectionVisible id=[id number] internalbreaksection=false originalname=Laboratory Data recognizeconcepts=& quot;true spantype=section suppressempty=false>Laboratory Data:< /span>
<span class=clinicalNoteMacroWysiwyg id=[id number] macroname=RecentLabResultsTable parameters=OptionalFlowsheetCategory:CBC, Label:CBC spantype=macro title=#RecentLabResultsTable(OptionalFlowsheetCateg ory:CBC,Label:CBC)>CBC<table border=1 style=width:100%> <tbody> <tr> <th align=left>LabResults</th> <td>03/17/2024</td> <td>09/07/2023</td> <td>09/04/2023</td> <td>05/23/2023</td> <td>02/20/2023</td> <td>11/14/2022</td> </tr> <tr> <th align=left> CBC</th> <td>
</td> <td>
</td> <td>
</td> <td>
</td> <td>
</td> <td>
</td> </tr> </tbody></table></span>
<span class=clinicalNoteMacroWysiw id=[id number] macroname=RecentLabResultsTable parameters=OptionalFlowsheetCategory:Chem istries,Label:CMP spantype=macro title=#RecentLabResultsTable(OptionalFlowsh eetCategory:Chemistries,Label:CMP)>CMP<table border=1 style=width:100%> <tbody> <tr> <th align=left>LabResults</th> <td>03/17/2024</td> <td>09/07/2023</td> <td>09/04/2023</td> <td>05/23/2023</td> <td>02/20/2023</td> <td>11/14/2022</td> </tr> <tr> <th align=left> Chemistries</th> <td>
</td> <td>
</td> <td>
</td> <td>
</td> <td>
</td> <td>
</td> </tr> </tbody></table></span>
<span class=clinicalNoteMacroWysiw id="[id number] macroname=RecentLabResultsTable parameters=Optiona lFlowsheetCategory:Coags,Label:Coagulation spantype=macro title=#RecentLabRe sultsTable(OptionalFlowsheetCategory:Coags,Label:Coagulation)></span>
<span [facility]=clinicalNoteMac[facility]Wys[facility] id=[id number] macroname= RecentLabResultsTable parameters=OptionalFlowsheetCategory:Tumor Markers spantype=macro title=#RecentLabResultsTable(OptionalFlowsheetCategory:Tumor Markers)><table border=1 style=width:100%> <tbody> <tr> <th a lign=left>LabResults</th> <td>03/17/2024</td> <td>09/07/2023</td> <td>09/04/2023</td> <td>05/23/2023</td> <td>02/20/2023</td> <td>11/14/2022</td> </tr> <tr> <th align=left> TumorMarkers</th> <td>
</td> <td>
</td> <td>
</td> <td>
</td> <td>
</td> <td>
</td> </tr> <tr> <td> CA 125 U/mL</td> <td>12.40</td> <td>9.80</td> <td>
</td> <td>10.30</td> <td>
</td> <td>12.60</td> </tr> </tbody></table></span>

<span class=clinicalNoteSectionVisible id=[id number] internalbreaksection="false originalname=Imaging recognizeconcepts=true spantype=section suppressempty=false>Imaging:</span>
<u>As above </u>
<span class=clinicalNoteSectionVisible id=[id number] internalbreaksection=false originalname=Problems: recognizeconcepts=true spantype=section suppressempty=false>Problems:& lt;/span>
<span></span><span class=clinicalNoteMacroWysiwyg i d=macro_[id number] macroname=Problems parameters=ListType:Bulleted spantype=macro title=#Problems(ListType:Bulleted)><ul> <li>Primary malignant neoplasm of fallopian tube (disorder) ( Stage Date: 07/26/2018, Stage IVB
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) ( First record:06/11/2019 Last record:06/11/2019; )</li> <li>BRCA2 gene mutation positive (finding) ( First record:10/16/2018 Last record:10/16/2018;)</li> <li>Candidal vulvovaginitis (disorder)</li> <li>Cardiomegaly</li> <li>Congestive heart failure (disorder)</li> <li>History of fallopian tube canc er</li> <li>Hypertensive disorder, systemic arterial (disorder) ( First record:03/19/2019 Last record:03/19/2019; )</li> <li>Hyponatremia</li> <li>Hypoxia</li> <li>Left ventricular hypertrophy</li> <li>Obesity (disorder) ( First record:06/11/2018 Last record:06/11/2018; )</li> <li>Osteopenia</li> <li>Other long-term current use of drug therapy ( First record:05/07/2019 Last record:05/07/2019 Other Migrated ICD10: Z79.899 ; )</li> <li>Personal history of fallopian tube cancer</li> <li>Postmenopausal state (finding)</li> <li>Primary malignant neoplasm of female genital organ(disorder) ( First record:01/16/2018 Last record:07/26/2018; )</li> <li>Secondary peripheral neuropathy (disorder) ( First record:07/26/2018 Last record:07/26/2018; )</li> <li>Secondary polycythemia</li> <li>Tobacco dependence syndrome (disorder) ( First record: Last record:01/16/2018 Other Migrated ICD10: F17.200 ; )</li></ul></span>

<span class=clinicalNoteSectionVisible id=section_[id number] internalbreaksection=false originalname=Assessment & Plan" recognizeconcepts=true spantype=section suppressempty=false>Assessment & Plan (Exploration Geologist Oncology):</span>
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 <span>Completed maintenance therapy on the (GOG-3020) DEB trial 10/25/20.Here today for surveillance. </span>

1. StageIVB fallopian tube cancer
<ul> <li>Reviewed 09/09/24 CT scan; negative for any recurrent or metastatic disease. </li> <li><strong>Continue pelvic exam, CA125 and CT scan q6 months until progression or withdrawal from study.</strong></li> <li><strong>The DEB trial released results finding that thecombination of rucaparib and nivolumab did not meets its primary endpoint of improving progression free survival in the randomized patient population and in turn have unblinded treatment regimens forall participating study participants. Monik received Arm B of Oral Rucaparib + IV Placebo . this information was reviewed with Monik today. </strong></ li></ul>2. BRCA2 mutation<ul> <li>Recommend alternating mammogram andbreast MRI q6 months.
<ul> <li>Completed Breast MRI 11/2023- BI-RADS Category 1; prefers this done at [facility]. Repeat for November, ordered today. </li> <li>normal mammogram 2023 per pt; CM sent to MR to attach report. </li> </ul> </li> <li>Recommend yearly skin check due to melanoma risk.</li> <li>Recommend cascade testing for family members.</li></ul>3. Parotid gland masses<ul> <li>Bilateral parotid gland masses. Stable. </li> <li>S/p consult with ENT. Instructed to follow up only if notable growth on selfexam. 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 Negative for malignancy.</li> <li>not discussed today. </li></ul>4. Tobacco dependence<ul> <li>Continued to insurance counselor about smoking cessation and long-term effects of smoking on health. </li> <li>smoking 1/2 PPD right now;motivated to quit. Has Chantix RX; plan to start. </li></ul>5. Hypoxia/COPD<ul> <li>Chronic for patient. S/p Pulmonology consult </li> <li>wears O2 at night. </li></ul>6. Neuropathy - Grade 2<ul> <li>Previously trialed decreasing Gabapentin 100mg BID; unable to tolerate. Continue on 200mg BID</li> <li>No longer using Medical Cannabis.</li> <li>S/ptrial of Cymbalta. Developed rash so discontinued.</li> <li>S/p consult with Neurology. EMG showed carpel tunnel syndrome in wrists, bilaterally; and polyneuropathy.</li> &l t;li>Previously discussed how tobacco use can affect peripheral blood flow and worsen neuropathysymptoms. </li></ul>7. Hernia<ul> <li>paramidline hernia, in the fascial defect. Adjacent to the midline incision. </li> <li>Asymptomatic; continue monitor unless she becomes symptomatic/painful/unable to have regular BMs. </li></ul>8. CHF
<ul> <li>follows with cardiology, [facility] Q 6 months. </li> <li>no recent exacerbations per chart review </li> <li>most recent cards note from 08/25/2024 reviewed today: <ul> <li>proBNP decreased from previous and BUN and creatinine elevated from prior
-Decrease Lasix to 20 mg daily
-Encouraged daily weight monitoring
</li> <li&gt ;Continue carvedilol 18.75 mg twice daily, losartan 25 mg twice daily, Farxiga 10 mg QD
</li> </ul> </li></ul>
RTC 6 months or sooner prn for [id number] scan review.

<span class=clinicalNoteS ectionVisible id=[id number] internalbreaksection=false originalname=Plan for Pain recognizeconcepts=true spantype=section" suppressempty=false>Pain Care Management:</span>
<span><span class=clinicalNoteMaEneysiwyg id=[id number] macroname=&quo t;PatientPainScale parameters=Label:Pain Scale: ,LookBackDays:0,ValueIfNull:Not recorded on visit spantype=macro title=#PatientPainScale(Label:Pain Scale: ,LookBackDays:0,ValueIfNull:Not recorded on visit)>Pain Scale: 0</span></span></span& gt;
<span><span>
<span class=clinicalNoteSectionVisible id=[id number] internalbreaksection=false originalname=Patient Care Management recognizeconcepts=true spantype=section suppres sempty=false>Patient Care needs:</span>
<span class=clinicalN otFabianaysiwyg id=[id number] macroname=DepressionStatus p arameters=Label:Depressions Status: ,ValueIfNull:Not recorded on visit spantype=macro title=#DepressionStatus(Label:Depressions Status: ,ValueIfNull:Not recorded on visit)>Depressions Status: Was screened; Outcome positive: No; Screening Date: 03/17/2024; Screening Tool: PRIME MD-PHQ2; Total depression score: 0</span>
Psycho-Social PHQ-9 Follow-up Plan (if applicable):
<span><span class=clinicalNoteMaGerardiwyg i d=[id number] macroname=PatientSmokingStatus parameters=Lab el:Smoking Status: ,ValueIfNull:Not recorded spantype=macro title=#Blair yoannaGareth(Label:Smoking Status: ,ValueIfNull:Not recorded)>Smoking Status: Smoking Tobacco : Current every day smoker; Smokeless Tobacco : Never used smokeless tobacco; Vaping : Never vaped </span></span></span></span><span><span></span></span&g t;

<hr><span><strong>Pippa Sy, JADE</strong>
<span class=clinicalNoteMaEneysiwyg id=macro_[id number] macrona me=LocationPhoneNumber parameters=Label:Phone: spantype=macro t itle=#LocationPhoneNumber(Label:Phone: )> </span>
<span class=clinicalNoteMaGerardiwyg id=macro_[id number] macronam e=LocationFaxNumber parameters=Label:Fax: spantype=macro title= #LocationFaxNumber(Label:Fax: )> </span>

Copy to: <span class=clinicalNoteMaGerardiwyg id=[id number] heber croname=NoteRecipients spantype=macro title=#NoteRecipients>Silver Whalen MD
FAX</span></span>

<b r>

</div>

<div><span class=eSignSignature>Electronically signed by Pippa Sy CNP 09/15/2024 12:22 SALES PERSON&l t;/span></div></body></html>
--- OUTSIDE RECORDS SUMMARY | 2025-07-19 23:32 | XMS_ITS | Patient Health Record ---
Author Organization [facility] Address [address] [place] [address] Care Team Providers Care Automatic Nailing Machine Feeder Name Role Phone Silver Whalen Primary Care Provider Unavailabl KRYSTLE Guzman Unavailable [phone] Shilpa BASS, Annamarie Unavailable Unavailabl e Allergies Allergen (clinical drug ingredient) Drug/Non Drug Allergy documented on EMR Reaction Allergy Type Onset Date Status duloxetine Cymbalta Unknown Drug Allergy Active Reason For Referral No Information Medications Medication SIG (Take, Route, Frequency, Duration) Notes Start Date End Date Status Gabapentin Active Calcium Active Simvastatin Active Unknown CBD oil Active Aspir-81 Active Atenolol Active Social History Tobacco Use: Social History Observation Description Date Details (start date - stop date) Current Smoker NA - NA Social History Tobacco Use: Social Info Question Answer Notes Tobacco use/smoking Are you a current smoker Problems Problem Type SNOMED Code ICD Code Onset Dates Problem Status W/U Status Risk Notes Problem Malignant tumor of ovary (231118398) Malignant neoplasm of ovary, unspecified laterality (C56.9) Active confirmed Problem Mass of both parotid glands (9682150632931 9108) Mass of both parotid glands (K11.8) Active confirmed Plan Of Treatment No Information Insurance Providers Payer Name Payer Address Payer Phone Subscriber Number Group Number Insured Name Patient Relationship to Insured Coverage Start Date Coverage End Date [facility] MEDICARE [address] [address] [place], [place] [id number] Monik Gallego Self - patient is the insured MEDICARE [address] [place] [address] [id number] Monik Gallego Self - patient is the insured Medical (General) History Medical History History ICD Code Ovarian CA HTN Surgical History Surgery Date(Month/Year) Cyst on neck Hysterectomy
--- OUTSIDE RECORDS SUMMARY | 2025-07-19 23:33 | XMS_ITS ---
Author Name Interface, [id number] lity Address [address] [facility] [address] [address] [facility] Address [address] [facility] [address] [address] Allergies and Adverse Reactions Medication/Group Name Reaction [...] APPOINTMENT CT - 605 CT CAP @ [facility] - CHECK IN @10 AM 11/22/2020 [...] PD/RC /NIVO VS PLACEBO - STUDY PATIENT 10/27/2019 APPOINTMENT RCT1 - 605 PD/RC /NIVO - STUDY PATIENT 10/27/2019 APPOINTMENT RCT1 - 605 PD/RC /NIVO - STUDY PATIENT 10/27/2019 APPOINTMENT RCT1 - 605 PD/RC /NIVO - STUDY PATIENT 09/29/2019 APPOINTMENT RCT1 - 605 [place]/PLACEBO - STUDY 09/29/2019 APPOINTMENT RCT1 - 605 [place]/PLACEBO - STUDY 09/29/2019 APPOINTMENT RCT1 - 605 [place]/PLACEBO - STUDY 09/01/2019 APPOINTMENT RCT1 - 605 PD/RC /NIVO - 605 PD/RC/NIVO 09/01/2019 APPOINTMENT RCT1 - 605 PD/RC /NIVO - 605 PD/RC/NIVO 09/01/2019 APPOINTMENT RCT1 - 605 PD/RC /NIVO - 605 PD/RC/NIVO 08/04/2019 APPOINTMENT RCT1 - 605 PD/RC /NIVOLUMAB - 605 PD/RC/NIVOLUMAB 08/04/2019 APPOINTMENT RCT1 - 605 PD/RC /NIVOLUMAB - 605 PD/RC/NIVOLUMAB 08/04/2019 APPOINTMENT RCT1 - 605 PD/RC /NIVOLUMAB - 605 PD/RC/NIVOLUMAB 08/04/2019 LAB_ORDER CA 125 panel 08/04/2019 LAB_ORDER Research Study D raw 08/04/2019 LAB_ORDER Magnesium Panel 08/04/2019 LAB_ORDER CBC w/ auto diff 08/04/2019 LAB_ORDER TSH panel 08/04/2019 LAB_ORDER CMP 09/01/2019 LAB_ORDER Research Study D raw 09/01/2019 LAB_ORDER TSH panel 09/01/2019 LAB_ORDER CA 125 panel 09/01/2019 LAB_ORDER CBC w/ auto diff 09/01/2019 LAB_ORDER CMP 09/08/2019 LAB_ORDER MRI breast, bila teral 09/26/[address] LAB_[address] chest/abdomen /pelvis w/ contrast 09/29/2019 LAB_ORDER TSH panel 09/29/2019 LAB_ORDER CMP 09/29/2019 LAB_ORDER CA 125 panel 09/29/2019 LAB_ORDER CBC w/ auto diff 09/29/2019 LAB_ORDER Research Study D raw 10/27/2019 LAB_ORDER CMP 10/27/2019 LAB_ORDER Research Study D raw 10/27/2019 LAB_ORDER CBC w/ auto diff 10/27/2019 LAB_ORDER CA 125 panel 10/27/2019 LAB_ORDER TSH panel 11/24/2019 LAB_ORDER CA 125 panel 11/24/2019 LAB_ORDER [...] LAB_ORDER CA 125 panel 04/17/2023 LAB_ORDER Mammogram, greta sanchez, bilateral breast 05/08/2023 LAB_[address] chest/abdomen /pelvis [...] Visit LAB 15 MIN Encounters Date Name 08/04/2019 BRCA2 gene mutation positive (finding) 08/04/2019 Candidal vulvovagini tis (disorder) 08/04/2019 Cardiomegaly 08/04/2019 Congestive heart emilie lure (disorder) 08/04/2019 History of fallopian tube cancer 08/04/2019 Hypertensive disorde r, systemic arterial (disorder) 08/04/2019 Hyponatremia 08/04/2019 Hyponatremia (disord er) 08/04/2019 Hypoxia 08/04/2019 Left ventricular hyp ertrophy 08/04/2019 Osteopenia 08/04/2019 Personal history of fallopian tube cancer 08/04/2019 Postmenopausal state (finding) 08/04/2019 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) 08/04/2019 Secondary peripheral neuropathy (disorder) 08/04/2019 Secondary polycythem ia 08/04/2019 Tobacco dependence s yndrome (disorder) 08/04/2019 Umbilical hernia Immunizations Date Name Route Dose Instructions Refusal Reason Stat 06/23/2020 Flu vaccine - Adult Completed Flu [...] Status Ordered By Specimen Source Lab Address 08/04 CMP Sodiu m mmol/L 135.0 145.0 130 Low [facility] 08/04 CMP Potas sium mmol/L 3.5 5.0 4.1 FINAL [facility] 08/04 CMP Chlor sathish mmol/L 98.0 110.0 94 Low FINAL [facility] 08/04 CMP CO2 mmol/L 21.0 31.0 27 FINAL [facility] 08/04 CMP Anion gap, mmol/ L 5.0 18.0 9.0% [facility] 08/04 CMP Gluco se mg/dL 65.0 100.0 86 [facility] 08/04 CMP Calci um mg/dL 8.5 10.5 9.2 FINAL [facility] 08/04 CMP BUN mg/dL 8.0 25.0 11 FINAL [facility] 08/04 CMP Creat inine mg/dL 0.57 1.11 0.92 FINAL [facility] 08/04 CMP BUN/C reati nine ratio 10.0 20.0 12.0% FINAL [facility] 08/04 CMP GFR Afric an Ameri can, estim ated ml/min /1.73m 2 >60 FINAL Tamanna Gonzales 08/04 CMP GFR non-A frica n Ameri can, estim ated ml/min /1.73m 2 >60 FINAL [facility] 08/04 CMP Album in g/dL 3.2 4.6 4.0 FINAL Tamanna Rolon 08/04 CMP Total prote in g/dL 6.0 8.0 6.6 FINAL Tamanna Rolon 08/04 CMP Globu samreen g/dL 2.0 3.7 2.6 FINAL Tamanna Rolon 08/04 CMP A/G ratio 1.0 2.0 1.5% FINAL Tamannanithin Rolon 08/04 CMP Bilir ubin, total mg/dL 0.2 1.2 0.4 FINAL Tamannanithin Rolon 08/04 CMP Alkal ine phosp hatas e IU/L 50.0 136.0 62 FINAL Tamannanithin Rolon 08/04 CMP ALT/S GPT IU/L 8.0 45.0 14 FINAL Tamanna Kenny 08/04 CMP AST/S GOT IU/L 2.0 40.0 27 Test Performed by:[facility] [address] - [place], [place] [address]Ijvu e : FINAL Tamannanithin Rolon 08/04 CA 125 panel CA 125 UNITS/ ML 0.0 34.0 6.90 Test performed at [facility] on a [employer] Immunoass ay Analyzer that uses an immunoenz ymometric sandwich assay for analysis. Patient testing should not be performed using multiple methodolo gies due to analytica l variation seen between test methodolo gies. FINAL Annamarie Mcginnis[address] [phone] 0 Phone: () - 08/04 TSH panel TSH uIU/ml 0.32 5.0 1.44 Test performed at [facility] on a [employer] 2000 Immunoass ay Analyzer that uses an immunoenz ymometric sandwich assay for analysis. Patient testing should not be performed using multiple methodolo gies due to analytica l variation seen between test methodolo gies. FINAL Annamarie Mcginnis[address] [phone] 0 Phone: () - 08/04 CBC w/ auto diff WBC K/uL 3.0 8.9 10.1 High FINAL Annamarie Mcginnisot [facility] [place], [address] [place] [address] [address] [place] [id number] 0 Phone: () - 08/04 CBC w/ auto diff HGB g/dL 11.3 15.2 10.7 Low FINAL Annamarie noel [facility] - [place], [address] [place] [address] [address] [place] [id number] 0 Phone: () - 08/04 CBC w/ auto diff PLT K/uL 113.0 364.0 179 FINAL Annamarie noel [facility] - [place], [address] [place] [address] [address] [place] [id number] 0 Phone: () - 08/04 CBC w/ auto diff Avtar # (ANC) K/uL 1.6 6.6 5.9 FINAL Annamarie noel [facility] - [place], [address] [place] [id number] 0 Phone: () - 08/04 CBC w/ auto diff Avtar % % 43.0 74.0 58.5 FINAL Annamarie noel [facility] - [place], [address] [place] [id number] 0 Phone: () - 08/04 CBC w/ auto diff IG % % 0.0 0.5 0.4 FINAL Annamarie noel [facility] - [place], [address] [place] [id number] 0 Phone: () - 08/04 CBC w/ auto diff IG # K/uL 0.0 0.03 0.04 High FINAL Annam[facility] noel [facility] - [place], [address] [place] [address] [address] [place] [id number] 0 Phone: () - 08/04 CBC w/ auto diff LY % % 14.0 41.0 28.4 FINAL Annamarie noel [facility] - [place], [address] [place] [address] [address] [place] [id number] 0 Phone: () - 08/04 CBC w/ auto diff MO % % 6.0 15.0 7.5 FINAL Annamarie Peters a [facility] - [place], [address] [place] [address] [address] [place] [id number] 0 Phone: () - 08/04 CBC w/ auto diff EO % % 0.0 7.0 4.6 FINAL [facility] no[facility] [place] [facility], [address] [place] [address] 200 [facility] [place] [id number] 0 Phone: () - 08/04 CBC w/ auto diff BA % % 0.0 2.0 0.6 FINAL Annamarie Peters [facility] [place], [address] [place] [address] 200 [facility] [place] [phone] 0 Phone: () - 08/04 CBC w/ auto diff LY # K/uL 0.4 3.6 2.9 FINAL Annamarie Peters [facility] [place], [address] [place] [address] 200 [facility] [place] [id number] 0 Phone: () - 08/04 CBC w/ auto diff MO # K/uL 0.2 1.3 0.8 FINAL Annamarie Peters [facility] [place] [facility], [address] [place] [address] 200 [facility] [place] [id number] 0 Phone: () - 08/04 CBC w/ auto diff EO # K/uL 0.0 0.6 0.5 FINAL Annamarie Peters [facility] [place] [facility], [address] [place] [address] 200 [facility] [place] [id number] 0 Phone: () - 08/04 CBC w/ auto diff BA # K/uL 0.0 0.2 0.1 FINAL Annamarie Peters [facility] [place] [facility], [address] [place] [address] 200 [facility] [place] [id number] 0 Phone: () - 08/04 CBC w/ auto diff NRBC % #/100W BC 0.0 0.2 0.0 FINAL Annamarie Mcginnisot [facility] [place] [facility], [address] [place] [address] 200 [place] [id number] 0 Phone: () - 08/04 CBC w/ auto diff RBC M/uL 3.9 5.1 3.00 Low FINAL Annamarie Mcginnisot [facility] [place] [facility], [address] [place] [address] 200 [facility] [place] [id number] 0 Phone: () - 08/04 CBC w/ auto diff HCT % 35.0 48.0 30.6 Low FINAL Annamarie Mcginnisot [facility] [place] [facility], [address] [facility] [place] [id number] 0 Phone: () - 08/04 CBC w/ auto diff MCV fL 80.0 104.0 102.0 FINAL Annamarie Mcginnisot [facility] [place], [address] [facility] [place] [id number] 0 Phone: () - 08/04 CBC w/ auto diff MCH pg 26.0 35.0 35.7 High FINAL Annamarie Mcginnisot [facility] [place], [address] [place] [address] [address] [facility] [place] [id number] 0 Phone: () - 08/04 CBC w/ auto diff MCHC g/dL 30.0 35.0 35.0 FINAL Annamarie Mcginnisot [facility] [place] [facility], [address] [place] [address] [address] [facility] [place] [id number] 0 Phone: () - 08/04 CBC w/ auto diff MPV fL 9.5 13.4 9.1 Low FINAL Annamarie Mcginnisot [facility] [place] [facility], [address] [place] [address] [address] [facility] [place] [id number] 0 Phone: () - 08/04 CBC w/ auto diff RDW % 11.4 16.1 12.60 FINAL Annamarie Mcginnisot [facility] [place] [facility], [address] [place] [address] [address] [facility] [place] [id number] 0 Phone: () - 08/04 Magne sium, mg/dL mg/dL 1.5 2.3 1.5 FINAL Annamarie Mcginnisot a Oncology [facility], [address] [facility] [address] [facility] [id number] 0 Phone: () - 08/04 [facility] other lab See optical fabricator d 08/04 [facility] other lab See optical fabricator d 09/01 CBC w/ auto diff WBC K/uL 3.0 8.9 9.6 High FINAL Annamarie Mcginnisot [facility] [place] [facility], [facility] [address] [place] [id number] 0 Phone: () - 09/01 CBC w/ auto diff HGB g/dL 11.3 15.2 11.3 FINAL Annamarie noel [facility] - [place], [address] [place] [address] [address] [place] [id number] 0 Phone: () - 09/01 CBC w/ auto diff PLT K/uL 113.0 364.0 185 FINAL Annamarie noel [facility] - [place], [address] [place] [address] [address] [place] [id number] 0 Phone: () - 09/01 CBC w/ auto diff Avtar # (ANC) K/uL 1.6 6.6 5.7 FINAL Annamarie noel [facility] - [place], [address] [place] [id number] 0 Phone: () - 09/01 CBC w/ auto diff Avtar % % 43.0 74.0 59.0 FINAL Annamarie noel [facility] - [place], [address] [place] [id number] 0 Phone: () - 09/01 CBC w/ auto diff IG % % 0.0 0.5 0.5 FINAL Annamarie noel [facility] - [place], [address] [place] [id number] 0 Phone: () - 09/01 CBC w/ auto diff IG # K/uL 0.0 0.03 0.05 High FINAL Annam[facility] noel [facility] - [place], [address] [place] [address] [address] [place] [id number] 0 Phone: () - 09/01 CBC w/ auto diff LY % % 14.0 41.0 27.2 FINAL Annamarie noel [facility] - [place], [address] [place] [id number] 0 Phone: () - 09/01 CBC w/ auto diff MO % % 6.0 15.0 8.3 FINAL An[facility] noel [facility] [place], [address] [place] [address] [address] [place] [id number] 0 Phone: () - 09/01 CBC w/ auto diff EO % % 0.0 7.0 4.3 FINAL Annamarie Mcginnisot [facility] [place] [facility], [address] [place] [address] 200 [place] [id number] 0 Phone: () - 09/01 CBC w/ auto diff BA % % 0.0 2.0 0.7 FINAL Annamarie Mcginnisot [facility] [place] [facility], [address] [place] [address] 200 [place] [id number] 0 Phone: () - 09/01 CBC w/ auto diff LY # K/uL 0.4 3.6 2.6 FINAL Annamarie Mcginnisot [facility] [place] [facility], [address] [place] [address] 200 [place] [id number] 0 Phone: () - 09/01 CBC w/ auto diff MO # K/uL 0.2 1.3 0.8 FINAL Annamarie Mcginnisot [facility] [place] [facility], [address] [place] [address] 200 [facility] [place] [id number] 0 Phone: () - 09/01 CBC w/ auto diff EO # K/uL 0.0 0.6 0.4 FINAL Annamarie Mcginnisot [facility] [place] [facility], [address] [place] [address] 200 [place] [id number] 0 Phone: () - 09/01 CBC w/ auto diff BA # K/uL 0.0 0.2 0.1 FINAL Annamarie Mcginnisot [facility] [place] [facility], [address] [place] [address] 200 [place] [id number] 0 Phone: () - 09/01 CBC w/ auto diff NRBC % #/100W BC 0.0 0.2 0.0 FINAL Annamarie Mcginnisot [facility] [place] [facility], [address] [place] [address] 200 [place] [id number] 0 Phone: () - 09/01 CBC w/ auto diff RBC M/uL 3.9 5.1 3.23 Low FINAL Annamarie Mcginnisot [facility] [place] [facility], [address] [place] [address] [address] [place] [id number] 0 Phone: () - 09/01 CBC w/ auto diff HCT % 35.0 48.0 33.1 Low FINAL Annamarie noel On[facility] - [facility], [address] [place] [id number] 0 Phone: () - 09/01 CBC w/ auto diff MCV fL 80.0 104.0 102.5 FINAL Annamarie noel Oncology - [facility], [address] [place] [id number] 0 Phone: () - 09/01 CBC w/ auto diff MCH pg 26.0 35.0 35.0 FINAL Annamarie noel On[facility] - [facility], [address] [place] [id number] 0 Phone: () - 09/01 CBC w/ auto diff MCHC g/dL 30.0 35.0 34.1 FINAL Annamarie noel Oncology [facility], [facility] [address] [place] [id number] 0 Phone: () - 09/01 CBC w/ auto diff MPV fL 9.5 13.4 9.3 Low FINAL Annamarie noel Oncology - [facility], [address] [place] [id number] 0 Phone: () - 09/01 CBC w/ auto diff RDW % 11.4 16.1 12.40 FINAL Annamarie noel Oncology [facility], [address] [place] [id number] 0 Phone: () - 09/01 TSH panel TSH uIU/ml 0.32 5.0 1.23 Test performed at [facility] on a [employer] ay Analyzer that uses an immunoenz ymometric sandwich assay for analysis. Patient testing should not be performed using multiple hallie soto due to analytica l variation seen between test hallie soto. FINAL Annamarie Mcginnis bert [facility] - [place], [address] [facility] [address] [place] [phone] 0 Phone: () - 09/01 CA 125 panel CA 125 UNITS/ ML 0.0 34.0 6.20 Test performed at [facility] on a [employer] 2000 Immunoass ay Analyzer that uses an immunoenz ymometric sandwich assay for analysis. Patient testing should not be performed using multiple hallie soto due to analytica l variation seen between test hallie soto. FINAL Annamarie rivero [facility] a [facility] - [place], [address] [place] [address] [address] [facility] [id number] 0 Phone: () - 09/01 CMP Sodiu m mmol/L 135.0 145.0 132 Low FINAL Annamarie Smith ast 09/01 CMP Potas sium mmol/L 3.5 5.0 4.3 FINAL Annamarie Smith ast 09/01 CMP Chlor sathish mmol/L 98.0 110.0 97 Low FINAL Annamarierenny Smith ast 09/01 CMP CO2 mmol/L 21.0 31.0 25 FINAL Annamarierenny Smith ast 09/01 CMP Anion gap, mmol/ L 5.0 18.0 10.0% FINAL Annamarie Smith ast 09/01 CMP Gluco se mg/dL 65.0 100.0 83 FINAL Annamarierenny Smith ast 09/01 CMP Calci um mg/dL 8.5 10.5 9.4 FINAL Annamarierenny Smith ast 09/01 CMP BUN mg/dL 8.0 25.0 11 FINAL Annamarierenny Smith ast 09/01 CMP Creat inine mg/dL 0.57 1.11 0.81 FINAL Annamarierenny Smith ast 09/01 CMP BUN/C reati nine ratio 10.0 20.0 14.0% FINAL Annamarierenny Smith ast 09/01 CMP GFR Afric an Ameri can, estim ated ml/min /1.73m 2 >60 FINAL Annamarierenny Smith ast 09/01 CMP GFR non-A frica n Ameri can, estim ated ml/min /1.73m 2 >60 [facility] CMP Album in g/dL 3.2 4.6 4.2 FINAL Annamarie Luis ast 09/01 CMP Total prote in g/dL 6.0 8.0 6.8 FINAL Annamarie Luis ast 09/01 CMP Globu samreen g/dL 2.0 3.7 2.6 FINAL Annamarie Zamorano ast 09/01 CMP A/G ratio 1.0 2.0 1.6% FINAL Annamarie Zamorano ast 09/01 CMP Bilir ubin, total mg/dL 0.2 1.2 0.5 FINAL Annamarie Zamorano ast 09/01 CMP Alkal ine phosp hatas e IU/L 50.0 136.0 65 FINAL Annamarie Zamorano ast 09/01 CMP ALT/S GPT IU/L 8.0 45.0 16 FINAL Annamarie Zamorano ast 09/01 CMP AST/S GOT IU/L 2.0 40.0 27 Test Performed by:[facility] [address] - [facility], [place] [id number] e : FINAL Annamarie Zamorano ast 09/01 [facility] other lab See optical fabricator d 09/29 CBC w/ auto diff WBC K/uL 3.0 8.9 8.3 FINAL Annamarie Mcginnisot [facility] [place] [facility], [address] [place] [address] [address] [place] [id number] 0 Phone: () - 09/29 CBC w/ auto diff HGB g/dL 11.3 15.2 12.2 FINAL Annamarie Mcginnisot bert [facility] - [place] [facility], [address] [place] [address] [address] [place] [id number] 0 Phone: () - 09/29 CBC w/ auto diff PLT K/uL 113.0 364.0 187 FINAL Annamarie Mcginnisot a [facility] [place] [facility], [address] [place] [address] [address] [place] [id number] 0 Phone: () - 09/29 CBC w/ auto diff Avtar # (ANC) K/uL 1.6 6.6 4.7 FINAL Annamarie Mcginnisot [facility] [place] [facility], [address] [place] [address] [address] [place] [id number] 0 Phone: () - 09/29 CBC w/ auto diff Avtar % % 43.0 74.0 56.3 FINAL Annamarie Mcginnisot a [facility] [place] [facility], [address] [place] [address] [address] [place] [id number] 0 Phone: () - 09/29 CBC w/ auto diff IG % % 0.0 0.5 0.6 High FINAL Annamarie noel [facility] - [place] [facility], [address] 200 [facility] [id number] 0 Phone: () - 09/29 CBC w/ auto diff IG # K/uL 0.0 0.03 0.05 High FINAL Annamarie Mcginnisot [facility] - [place] [facility], [address] [place] [address] 200 [facility] [id number] 0 Phone: () - 09/29 CBC w/ auto diff LY % % 14.0 41.0 29.3 FINAL Annamarie Peters a [facility] - [place] [facility], [address] [place] [address] 200 [facility] [id number] 0 Phone: () - 09/29 CBC w/ auto diff MO % % 6.0 15.0 8.2 FINAL Annamarie Mcginnisot a [facility] - [place] [facility], [address] [place] [address] 200 [facility] [id number] 0 Phone: () - 09/29 CBC w/ auto diff EO % % 0.0 7.0 4.9 FINAL Annamarie Mcginnisot a [facility] [place] [facility], [address] [place] [address] 200 [facility] [id number] 0 Phone: () - 09/29 CBC w/ auto diff BA % % 0.0 2.0 0.7 FINAL Annamarie Mcginnisot a [facility] [place] [facility], [address] [place] [address] 200 [facility] [id number] 0 Phone: () - 09/29 CBC w/ auto diff LY # K/uL 0.4 3.6 2.4 FINAL Annamarierenny Mcginnisot a [facility] - [place] [facility], [address] [place] [address] 200 [facility] [id number] 0 Phone: () - 09/29 CBC w/ auto diff MO # K/uL 0.2 1.3 0.7 FINAL Annamarie Mcginnisot a [facility] - [place] [facility], [facility] [address] [facility] [id number] 0 Phone: () - 09/29 CBC w/ auto diff EO # K/uL 0.0 0.6 0.4 FINAL Annamarie Mcginnisot bert [facility] - [place] [facility], [facility] [address] [place] [id number] 0 Phone: () - 09/29 CBC w/ auto diff BA # K/uL 0.0 0.2 0.1 FINAL Annamarie Mcginnisot bert [facility] - [place] [facility], [facility] [address] [place] [id number] 0 Phone: () - 09/29 CBC w/ auto diff NRBC % #/100W BC 0.0 0.2 0.0 FINAL Annamarie Mcginnisot [facility] [place] [facility], [address] [place] [address] 200 [place] [id number] 0 Phone: () - 09/29 CBC w/ auto diff RBC M/uL 3.9 5.1 3.53 Low FINAL Annamarie Mcginnisot [facility] [place] [facility], [address] [place] [address] 200 [place] [id number] 0 Phone: () - 09/29 CBC w/ auto diff HCT % 35.0 48.0 35.9 FINAL Annamarie Mcginnisot bert [facility] - [place] [facility], [address] [place] [address] 200 [place] [id number] 0 Phone: () - 09/29 CBC w/ auto diff MCV fL 80.0 104.0 101.7 FINAL Annamarie Mcginnisot bert [facility] - [place] [facility], [address] [place] [address] 200 [place] [id number] 0 Phone: () - 09/29 CBC w/ auto diff MCH pg 26.0 35.0 34.6 FINAL Annamarie Mcginnisot a [facility] [place] [facility], [address] [place] [address] [address] [place] [id number] 0 Phone: () - 09/29 CBC w/ auto diff MCHC g/dL 30.0 35.0 34.0 FINAL Annamarie Mcginnisot [facility] [place] [facility], [facility] [address] [place] [id number] 0 Phone: () - 09/29 CBC w/ auto diff MPV fL 9.5 13.4 9.6 FINAL Annamarie Zamorano [facility] [place] [facility] [place], [address] [place] [address] [address] [place] [id number] 0 Phone: () - 09/29 CBC w/ auto diff RDW % 11.4 16.1 12.20 FINAL Annamarie rivero [place] [facility] [place], [address] [place] [address] [address] [place] [id number] 0 Phone: () - 09/29 CMP Sodiu m mmol/L 135.0 145.0 133 Low FINAL Annamarierenny Smith ast 09/29 CMP Potas sium mmol/L 3.5 5.0 4.4 FINAL [facility] CMP Chlor sathish mmol/L 98.0 110.0 97 Low FINAL [facility] ast 09/29 CMP CO2 mmol/L 21.0 31.0 27 FINAL [facility] CMP Anion gap, mmol/ L 5.0 18.0 9.0% FINAL [facility]29 CMP Gluco se mg/dL 65.0 100.0 87 FINAL [facility] CMP Calci um mg/dL 8.5 10.5 9.6 FINAL [facility] 09/[facility] CMP BUN mg/dL 8.0 25.0 16 FINAL [facility] 09/29 CMP Creat inine mg/dL 0.57 1.11 0.97 FINAL [facility] 09/[facility] CMP BUN/C reati nine ratio 10.0 20.0 16.0% FINAL [place] [facility] 09/29 CMP GFR Afric an Ameri can, estim ated ml/min /1.73m 2 >60 FINAL [facility] 09/29 CMP GFR non-A frica n Ameri can, estim ated ml/min /1.73m 2 57 Low FINAL [facility] 09/29 CMP Album in g/dL 3.2 4.6 4.3 FINAL [facility] 09/29 CMP Total prote in g/dL 6.0 8.0 7.2 FINAL Annamarie Zamorano ast 09/29 CMP Globu samreen g/dL 2.0 3.7 2.9 FINAL [facility] 09/29 CMP A/G ratio 1.0 2.0 1.5% FINAL [facility] 09/29 CMP Bilir ubin, total mg/dL 0.2 1.2 0.5 FINAL [facility] 09/29 CMP Alkal ine phosp hatas e IU/L 50.0 136.0 63 FINAL [facility] 09/29 CMP ALT/S GPT IU/L 8.0 45.0 13 FINAL [facility] 09/29 CMP AST/S GOT IU/L 2.0 40.0 22 Test Performed by:[facility] [address], [address] - [facility] [place], [place] [id number] e : FINAL [facility] 09/29 Misc other lab See optical fabricator d 10/27 CBC w/ auto diff WBC K/uL 3.0 8.9 8.8 FINAL [facility]ano [facility], [address] [place] [id number] 0 Phone: () - 10/27 CBC w/ auto diff HGB g/dL 11.3 15.2 12.2 FINAL Annamarie rivero [facility] [place], [address] [address] [place] [id number] 0 Phone: () - 10/27 CBC w/ auto diff PLT K/uL 113.0 364.0 178 FINAL Annamarie Zamorano [facility] [place] [facility], [address] [place] [id number] 0 Phone: () - 10/27 CBC w/ auto diff Avtar # (ANC) K/uL 1.6 6.6 5.0 FINAL Annamarie rivero [place] [facility] [place] [facility], [address] [place] [id number] 0 Phone: () - 10/27 CBC w/ auto diff Avtar % % 43.0 74.0 56.8 FINAL Annamarie noel [facility] - [place], [address] [place] [address] [address] [place] [id number] 0 Phone: () - 10/27 CBC w/ auto diff IG % % 0.0 0.5 0.5 FINAL Annamarie noel [facility] - [place], [address] [place] [address] [address] [place] [id number] 0 Phone: () - 10/27 CBC w/ auto diff IG # K/uL 0.0 0.03 0.04 High FINAL Annamarie noel [facility] - [place], [address] [place] [address] [address] [place] [id number] 0 Phone: () - 10/27 CBC w/ auto diff LY % % 14.0 41.0 29.5 FINAL Annamarie noel [facility] - [place], [address] [place] [address] [address] [place] [id number] 0 Phone: () - 10/27 CBC w/ auto diff MO % % 6.0 15.0 8.0 FINAL Annamarie noel [facility] - [place], [address] [place] [address] [address] [place] [id number] 0 Phone: () - 10/27 CBC w/ auto diff EO % % 0.0 7.0 4.6 FINAL Annamarie noel [facility] - [place], [address] [place] [address] [address] [place] [id number] 0 Phone: () - 10/27 CBC w/ auto diff BA % % 0.0 2.0 0.6 FINAL Annamarie noel [facility] - [place], [address] [place] [address] [address] [place] [id number] 0 Phone: () - 10/27 CBC w/ auto diff LY # K/uL 0.4 3.6 2.6 FINAL Annamarie noel [facility] - [place], [address] [place] [address] [address] [place] [id number] 0 Phone: () - 10/27 CBC w/ auto diff MO # K/uL 0.2 1.3 0.7 FINAL Annamarie noel [facility] - [place], [address] [place] [id number] 0 Phone: () - 10/27 CBC w/ auto diff EO # K/uL 0.0 0.6 0.4 FINAL Annamarie noel [facility] - [place] [facility], [address] [place] [id number] 0 Phone: () - 10/27 CBC w/ auto diff BA # K/uL 0.0 0.2 0.1 FINAL Annamarie noel [facility] - [place] [facility], [address] [place] [id number] 0 Phone: () - 10/27 CBC w/ auto diff NRBC % #/100W BC 0.0 0.2 0.0 FINAL Annamarie noel [facility] [place] [facility], [address] [place] [address] 200 [place] [id number] 0 Phone: () - 10/27 CBC w/ auto diff RBC M/uL 3.9 5.1 3.55 Low FINAL [facility], [address] [place] [address] 200 [place] [id number] 0 Phone: () - 10/27 CBC w/ auto diff HCT % 35.0 48.0 35.9 FINAL [facility], [address] [place] [address] 200 [place] [id number] 0 Phone: () - 10/27 CBC w/ auto diff MCV fL 80.0 104.0 101.1 FINAL Annamarie noel [facility] [place] [facility], [address] [place] [id number] 0 Phone: () - 10/27 CBC w/ auto diff MCH pg 26.0 35.0 34.4 FINAL [facility], [facility] [address] [place] [id number] 0 Phone: () - 10/27 CBC w/ auto diff MCHC g/dL 30.0 35.0 34.0 FINAL [facility], [address] [place] [id number] 0 Phone: () - 10/27 CBC w/ auto diff MPV fL 9.5 13.4 9.2 Low FINAL Annamarie noel Oncology [facility], [address] [place] [address] 200 [facility] [id number] 0 Phone: () - 10/27 CBC w/ auto diff RDW % 11.4 16.1 12.10 FINAL Annamaire noel Oncology [facility], [address] [place] [address] 200 [facility] [id number] 0 Phone: () - 10/27 TSH panel TSH uIU/ml 0.32 5.0 1.80 Test performed at [facility] on a [employer] 2000 Immunoass ay Analyzer that uses an immunoenz ymometric sandwich assay for analysis. Patient testing should not be performed using multiple methodolo gies due to analytica l variation seen between test methodolo gies. FINAL Annamarie noel Oncology [facility], [address] [place] [id number] 0 Phone: () - 10/27 CA 125 panel CA 125 UNITS/ ML 0.0 34.0 6.50 Test performed at [facility] on a [employer] 2000 Immuno[employer] ay Analyzer that uses an immunoenz ymometric sandwich assay for analysis. Patient testing should not be performed using multiple methodolo gies due to analytica l variation seen between test methodolo gies. FINAL Annamarie noel Oncology [facility], [address] [place] [id number] 0 Phone: () - 10/27 CMP Sodiu m mmol/L 135.0 145.0 133 Low FINAL Annamarie Zamorano ast 10/27 CMP Potas sium mmol/L 3.5 5.0 4.3 FINAL Annmaarie Zamorano ast 10/27 CMP Chlor sathish mmol/L 98.0 110.0 96 Low FINAL Annamarie Zamorano ast 10/27 CMP CO2 mmol/L 21.0 31.0 26 FINAL Annamarie Zamorano ast 10/27 CMP Anion gap, mmol/ L 5.0 18.0 11.0% FINAL Annamarie Zamorano ast 10/27 CMP Gluco se mg/dL 65.0 100.0 88 FINAL Annamarie Smith ast 10/27 CMP Calci um mg/dL 8.5 10.5 9.9 FINAL Annamarie Smithg ast 10/27 CMP BUN mg/dL 8.0 25.0 15 FINAL Annamarie Smithg ast 10/27 CMP Creat inine mg/dL 0.57 1.11 1.04 FINAL Annamarie Smith ast 10/27 CMP BUN/C reati nine ratio 10.0 20.0 14.0% FINAL Annamarie Smith ast 10/27 CMP GFR Afric an Ameri can, estim ated ml/min /1.73m 2 >60 FINAL Annamarie Smith ast 10/27 CMP GFR non-A frica n Ameri can, estim ated ml/min /1.73m 2 52 Low FINAL Annamarie Smith ast 10/27 CMP Album in g/dL 3.2 4.6 4.4 FINAL Annamarie Smith ast 10/27 CMP Total prote in g/dL 6.0 8.0 7.4 FINAL Annamarie Bailonderg ast 10/27 CMP Globu samreen g/dL 2.0 3.7 3.0 FINAL Annamarie Smith ast 10/27 CMP A/G ratio 1.0 2.0 1.5% FINAL Annamarie Smith ast 10/27 CMP Bilir ubin, total mg/dL 0.2 1.2 0.5 FINAL Annamarie Smith ast 10/27 CMP Alkal ine phosp hatas e IU/L 50.0 136.0 70 FINAL Annamarie Smith ast 10/27 CMP ALT/S GPT IU/L 8.0 45.0 19 FINAL Annamarie Smithg ast 10/27 CMP AST/S GOT IU/L 2.0 40.0 29 Test Performed by:[facility] [address] - [facility] [place], [place] [address]Yafy e : FINAL Annamarie Smith ast 10/27 [facility] other lab See optical fabricator d 10/27 Mis other lab See optical fabricator d 11/15 Mis other lab See optical fabricator d 11/23 TSH panel TSH uIU/ml 0.32 5.0 1.83 Test performed at [facility] on a [employer] 2000 Immunoass ay Analyzer that uses an immunoenz ymometric sandwich assay for analysis. Patient testing should not be performed using multiple methodolo gies due to analytica l variation seen between test methodolo gies. FINAL Annamarie noel [facility], [address] [place] [id number] 0 Phone: () - 11/23 CA 125 panel CA 125 UNITS/ ML 0.0 34.0 7.50 Test performed at [facility] on a [employer] 2000 Immuno[employer] ay Analyzer that uses an immunoenz ymometric sandwich assay for analysis. Patient testing should not be performed using multiple methodolo gies due to analytica l variation seen between test methodolo gies. FINAL Annamaire noel [facility], [address] [place] [address] [id number] 0 Phone: () - 11/23 CBC w/ auto diff WBC K/uL 3.0 8.9 8.3 FINAL Annamarie noel [facility], [address] [place] [address] [address] [place] [id number] 0 Phone: () - 11/23 CBC w/ auto diff HGB g/dL 11.3 15.2 12.4 FINAL Annamarie noel Oncology [facility], [address] [place] [address] [address] [place] [id number] 0 Phone: () - 11/23 CBC w/ auto diff PLT K/uL 113.0 364.0 187 FINAL Annamarie noel Oncology [facility], [facility] [address] [place] [id number] 0 Phone: () - 11/23 CBC w/ auto diff Avtar # (ANC) K/uL 1.6 6.6 4.4 FINAL Annamarie noel Oncology [facility], [facility] [address] [place] [id number] 0 Phone: () - 11/23 CBC w/ auto diff Avtar % % 43.0 74.0 53.4 FINAL Annamarie noel Oncology [facility], [facility] [address] [place] [id number] 0 Phone: () - 11/23 CBC w/ auto diff IG % % 0.0 0.5 0.8 High FINAL Annamarie noel [facility] [place], [address] [place] [address] 200 [place] [id number] 0 Phone: () - 11/23 CBC w/ auto diff IG # K/uL 0.0 0.03 0.07 High FINAL Annamarie noel [facility] - [place], [address] 200 [place] [id number] 0 Phone: () - 11/23 CBC w/ auto diff LY % % 14.0 41.0 31.7 FINAL Annamarie noel [facility] [place] [facility], [address] [place] [address] 200 [place] [id number] 0 Phone: () - 11/23 CBC w/ auto diff MO % % 6.0 15.0 8.5 FINAL Annamarie noel [facility] - [place], [address] [place] [address] 200 [facility] [place] [id number] 0 Phone: () - 11/23 CBC w/ auto diff EO % % 0.0 7.0 4.8 FINAL Annamarie noel [facility] [place] [facility], [address] [place] [address] 200 [facility] [place] [id number] 0 Phone: () - 11/23 CBC w/ auto diff BA % % 0.0 2.0 0.8 FINAL Annamarie noel [facility] - [place], [address] [place] [address] 200 [place] [id number] 0 Phone: () - 11/23 CBC w/ auto diff LY # K/uL 0.4 3.6 2.6 FINAL Annamarie noel [facility] - [place] [facility], [address] [place] [address] 200 [place] [id number] 0 Phone: () - 11/23 CBC w/ auto diff MO # K/uL 0.2 1.3 0.7 FINAL Annamarie noel [facility] [place] [facility], [address] [place] [address] 200 [facility] [place] [id number] 0 Phone: () - 11/23 CBC w/ auto diff EO # K/uL 0.0 0.6 0.4 FINAL Annamarie noel [facility] - [place] [facility], [address] 200 [place] [id number] 0 Phone: () - 11/23 CBC w/ auto diff BA # K/uL 0.0 0.2 0.1 FINAL Annamarie noel [facility] - [place] [facility], [address] [place] [address] 200 [place] [id number] 0 Phone: () - 11/23 CBC w/ auto diff NRBC % #/100W BC 0.0 0.2 0.0 FINAL Annamarie noel [facility] [place] [facility], [address] [place] [address] 200 [facility] [place] [id number] 0 Phone: () - 11/23 CBC w/ auto diff RBC M/uL 3.9 5.1 3.61 Low FINAL Annamarie noel [facility] [place] [facility], [address] [place] [address] 200 [facility] [place] [id number] 0 Phone: () - 11/23 CBC w/ auto diff HCT % 35.0 48.0 36.4 FINAL Annamarie noel [facility] [place] [facility], [address] [place] [address] 200 [facility] [place] [id number] 0 Phone: () - 11/23 CBC w/ auto diff MCV fL 80.0 104.0 100.8 FINAL Annamarie noel [facility] [place] [facility], [address] [place] [address] 200 [facility] [place] [id number] 0 Phone: () - 11/23 CBC w/ auto diff MCH pg 26.0 35.0 34.3 FINAL Annamarie noel [facility] [place] [facility], [address] [place] [address] 200 [place] [id number] 0 Phone: () - 11/23 CBC w/ auto diff MCHC g/dL 30.0 35.0 34.1 FINAL Annamarie noel [facility] [place] [facility], [address] [place] [address] 200 [facility] [place] [id number] 0 Phone: () - 11/23 CBC w/ auto diff MPV fL 9.5 13.4 9.3 Low FINAL Annamarie rivero [place] [facility] [place], [address] [place] [address] [address] [place] [id number] 0 Phone: () - 11/23 CBC w/ auto diff RDW % 11.4 16.1 12.50 FINAL Annamarie Mcginnisot a [facility] - [place], [address] [place] [address] [address] [place] [id number] 0 Phone: () - 11/23 CMP Sodiu m mmol/L 135.0 145.0 132 Low FINAL Annamarie Smith ast 11/23 CMP Potas sium mmol/L 3.5 5.0 4.5 FINAL [facility]/23 CMP Chlor sathish mmol/L 98.0 110.0 96 Low FINAL [facility] 11/23 CMP CO2 mmol/L 21.0 31.0 25 FINAL [facility] 11/23 CMP Anion gap, mmol/ L 5.0 18.0 11.0% FINAL [facility] 11/23 CMP Gluco se mg/dL 65.0 100.0 90 FINAL [facility] 11/23 CMP Calci um mg/dL 8.5 10.5 9.0 FINAL [facility] 11/23 CMP BUN mg/dL 8.0 25.0 15 FINAL [facility] 11/23 CMP Creat inine mg/dL 0.57 1.11 0.87 FINAL [facility] CMP BUN/C reati nine ratio 10.0 20.0 17.0% FINAL [facility] 11/23 CMP GFR Afric an Ameri can, estim ated ml/min /1.73m 2 >60 FINAL [facility] 11/23 CMP GFR non-A frica n Ameri can, estim ated ml/min /1.73m 2 >60 FINAL [facility] ast 11/23 CMP Album in g/dL 3.2 4.6 4.1 FINAL [facility] 11/23 CMP Total prote in g/dL 6.0 8.0 7.1 FINAL Annamarie Zamorano ast 11/23 CMP Globu samreen g/dL 2.0 3.7 3.0 FINAL Annamarie Zamorano ast 11/23 CMP A/G ratio 1.0 2.0 1.4% FINAL Annamarie Zamorano ast 11/23 CMP Bilir ubin, total mg/dL 0.2 1.2 0.4 FINAL Annamarie Zamorano ast 11/23 CMP Alkal ine phosp hatas e IU/L 50.0 136.0 64 FINAL Annamarie Zamorano ast 11/23 CMP ALT/S GPT IU/L 8.0 45.0 23 FINAL Annamarie Zamorano ast 11/23 CMP AST/S GOT IU/L 2.0 40.0 37 Test Performed by:[facility] [address] - [facility] [id number] e : FINAL Annamarie Zamorano ast 11/23 [facility] other lab See optical fabricator d 11/23 [facility] other lab See optical fabricator d 12/21 TSH panel TSH uIU/ml 0.32 5.0 1.49 Test performed at [facility] on a [employer] 2000 Immunoass ay Analyzer that uses an immunoenz ymometric sandwich assay for analysis. Patient testing should not be performed using multiple methodolo ginorris due to analytica l variation seen between test methoddanelle soto. FINAL Tamanna Peters Oncology [facility], [address] [facility] [address] [facility] [id number] 0 Phone: () - 12/21 CBC w/ auto diff WBC K/uL 3.0 8.9 8.3 FINAL Tamanna noel [facility], [address] [place] [id number] 0 Phone: () - 12/21 CBC w/ auto diff HGB g/dL 11.3 15.2 12.1 FINAL Tamanna noel [facility], [address] [place] [id number] 0 Phone: () - 12/21 CBC w/ auto diff PLT K/uL 113.0 364.0 160 FINAL Tamanna noel [facility] - [place], [address] [place] [address] [address] [place] [id number] 0 Phone: () - 12/21 CBC w/ auto diff Avtar # (ANC) K/uL 1.6 6.6 4.4 FINAL Tamanna noel Oncology - [place], [address] [place] [address] [address] [place] [id number] 0 Phone: () - 12/21 CBC w/ auto diff Avtar % % 43.0 74.0 52.5 FINAL Tamanna noel [facility] - [place], [address] [place] [address] [address] [place] [id number] 0 Phone: () - 12/21 CBC w/ auto diff IG % % 0.0 0.5 0.6 High FINAL Tamanna noel On[facility] - [place], [address] [place] [address] [address] [place] [id number] 0 Phone: () - 12/21 CBC w/ auto diff IG # K/uL 0.0 0.03 0.05 High FINAL Tamanna noel On[facility] - [place], [address] [place] [address] [address] [place] [id number] 0 Phone: () - 12/21 CBC w/ auto diff LY % % 14.0 41.0 32.3 FINAL Tamanna noel [facility] - [place], [address] [place] [address] [address] [place] [id number] 0 Phone: () - 12/21 CBC w/ auto diff MO % % 6.0 15.0 7.9 FINAL Tamanna noel [facility] - [place], [address] [place] [address] [address] [place] [id number] 0 Phone: () - 12/21 CBC w/ auto diff EO % % 0.0 7.0 5.9 FINAL Tamanna noel On[facility] - [place], [address] [place] [address] [address] [place] [id number] 0 Phone: () - 12/21 CBC w/ auto diff BA % % 0.0 2.0 0.8 FINAL Tamanna noel [facility] - [place], [address] [place] [address] [address] [place] [id number] 0 Phone: () - 12/21 CBC w/ auto diff LY # K/uL 0.4 3.6 2.7 FINAL Tamanna noel On[facility] - [place], [address] [place] [address] 200 [place] [id number] 0 Phone: () - 12/21 CBC w/ auto diff MO # K/uL 0.2 1.3 0.7 FINAL Tamanna noel On[facility] - [place], [address] [place] [address] 200 [place] [id number] 0 Phone: () - 12/21 CBC w/ auto diff EO # K/uL 0.0 0.6 0.5 FINAL Tamanna noel Oncology - [place], [address] [place] [address] 200 [place] [id number] 0 Phone: () - 12/21 CBC w/ auto diff BA # K/uL 0.0 0.2 0.1 FINAL Tamanna noel [facility] - [place], [address] [place] [address] 200 [place] [id number] 0 Phone: () - 12/21 CBC w/ auto diff NRBC % #/100W BC 0.0 0.2 0.0 FINAL Tamanna noel On[facility] - [place], [address] [place] [address] 200 [place] [id number] 0 Phone: () - 12/21 CBC w/ auto diff RBC M/uL 3.9 5.1 3.49 Low FINAL Tamanna noel Oncology - [place], [address] [place] [address] 200 [place] [id number] 0 Phone: () - 12/21 CBC w/ auto diff HCT % 35.0 48.0 35.2 FINAL Tamanna noel Oncology - [place], [address] [place] [address] 200 [place] [id number] 0 Phone: () - 12/21 CBC w/ auto diff MCV fL 80.0 104.0 100.9 FINAL Tamanna noel Oncology - [place], [address] [place] [address] 200 [place] [id number] 0 Phone: () - 12/21 CBC w/ auto diff MCH pg 26.0 35.0 34.7 FINAL [facility], [address] [facility] [place] [id number] 0 Phone: () - 12/21 CBC w/ auto diff MCHC g/dL 30.0 35.0 34.4 FINAL [facility] [address] [place] [address] [address] [facility] [place] [id number] 0 Phone: () - 12/21 CBC w/ auto diff MPV fL 9.5 13.4 9.5 FINAL Tamanna noel Oncology - [facility], [address] [place] [address] [address] [facility] [place] [id number] 0 Phone: () - 12/21 CBC w/ auto diff RDW % 11.4 16.1 12.80 FINAL Tamanna noel Oncology - [facility], [address] [place] [address] [address] [facility] [place] [id number] 0 Phone: () - 12/21 CA 125 panel CA 125 UNITS/ ML 0.0 34.0 7.70 Test performed at [facility] on a [employer] 2000 Immunoass ay Analyzer that uses an immunoenz ymometric sandwich assay for analysis. Patient testing should not be performed using multiple hallie soto due to analytica l variation seen between test hallie soto. FINAL Tamanna noel Oncology - [place], [address] [facility] [address] [facility] [id number] 0 Phone: () - 12/21 CMP Sodiu m mmol/L 135.0 145.0 133 Low FINAL Tamanna Rolon 12/21 CMP Potas sium mmol/L 3.5 5.0 4.2 FINAL Tamanna Rolon 12/21 CMP Chlor sathish mmol/L 98.0 110.0 98 FINAL Tamanna Rolon 12/21 CMP CO2 mmol/L 21.0 31.0 27 FINAL Tamanna Rolon 12/21 CMP Anion gap, mmol/ L 5.0 18.0 8.0% FINAL Tamanna Rolon 12/21 CMP Gluco se mg/dL 65.0 100.0 92 FINAL Tamanna Rolon 12/21 CMP Calci um mg/dL 8.5 10.5 9.3 FINAL Tamanna Rolon 12/21 CMP BUN mg/dL 8.0 25.0 14 FINAL Tamanna Rolon 12/21 CMP Creat inine mg/dL 0.57 1.11 1.02 FINAL Tamanna Rolon 12/21 CMP BUN/C reati nine ratio 10.0 20.0 14.0% FINAL Tamanna Rolon 12/21 CMP GFR Afric an Ameri can, estim ated ml/min /1.73m 2 >60 FINAL Tamanna Rolon 12/21 CMP GFR non-A frica n Ameri can, estim ated ml/min /1.73m 2 54 Low FINAL Tamanna Rolon 12/21 CMP Album in g/dL 3.2 4.6 4.1 FINAL Tamanna Rolon 12/21 CMP Total prote in g/dL 6.0 8.0 7.0 FINAL Tamanna Rolon 12/21 CMP Globu samreen g/dL 2.0 3.7 2.9 FINAL Tamanna Rolon 12/21 CMP A/G ratio 1.0 2.0 1.4% FINAL Tamanna Rolon 12/21 CMP Bilir ubin, total mg/dL 0.2 1.2 0.5 FINAL Tamanna Rolon 12/21 CMP Alkal ine phosp hatas e IU/L 50.0 136.0 75 FINAL Tamanna Rolon 12/21 CMP ALT/S GPT IU/L 8.0 45.0 29 FINAL Tamanna Rolon 12/21 CMP AST/S GOT IU/L 2.0 40.0 40 Test Performed by:[facility] [address] - [facility] [place] [address]Pgnm e [phone] FINAL Tamanna Rolon 12/21 Misc other lab See optical fabricator d 01/18 CMP Sodiu m mmol/L 135.0 145.0 135 FINAL Tamanna Rolon 01/18 CMP Potas sium mmol/L 3.5 5.0 4.2 FINAL Tamanna Rolon 01/18 CMP Chlor sathish mmol/L 98.0 110.0 99 FINAL [facility] 01/18 CMP CO2 mmol/L 21.0 31.0 28 FINAL [facility] 01/18 CMP Anion gap, mmol/ L 5.0 18.0 8.0% FINAL [facility] 01/18 CMP Gluco se mg/dL 65.0 100.0 86 FINAL Tamanna Gonzales 01/18 CMP Calci um mg/dL 8.5 10.5 9.6 FINAL [facility] 01/18 CMP BUN mg/dL 8.0 25.0 17 FINAL [facility] 01/18 CMP Creat inine mg/dL 0.57 1.11 0.97 FINAL [facility] 01/18 CMP BUN/C reati nine ratio 10.0 20.0 18.0% FINAL Tamanna Kenny 01/18 CMP GFR Afric an Ameri can, estim ated ml/min /1.73m 2 >60 FINAL Tamanna Gonzales 01/18 CMP GFR non-A frica n Ameri can, estim ated ml/min /1.73m 2 57 Low FINAL [facility] 01/18 CMP Album in g/dL 3.2 4.6 4.2 Tamannany 01/18 CMP Total prote in g/dL 6.0 8.0 7.0 Tamanna Gonzales 01/18 CMP Globu samreen g/dL 2.0 3.7 2.8 [facility] 01/18 CMP A/G ratio 1.0 2.0 1.5% FINAL [facility] 01/18 CMP Bilir ubin, total mg/dL 0.2 1.2 0.4 FINAL [facility] 01/18 CMP Alkal ine phosp hatas e IU/L 50.0 136.0 70 [facility] 01/18 CMP ALT/S GPT IU/L 8.0 45.0 19 [facility] 01/18 CMP AST/S GOT IU/L 2.0 40.0 34 Test Performed by:[facility] [address] - [place], [place] [id number] e : FINAL Tamanna Rolon 01/18 CA 125 panel CA 125 UNITS/ ML 0.0 34.0 9.40 Test performed at [facility] on a [employer] Immunoass ay Analyzer that uses an immunoenz ymometric sandwich assay for analysis. Patient testing should not be performed using multiple methoddanelle soto due to analytica l variation seen between test methoddanelle soto. FINAL Tamanna noel Oncology [facility], [address] [facility] [id number] 0 Phone: () - 01/18 CBC w/ auto diff WBC K/uL 3.0 8.9 8.1 FINAL Tamanna noel Oncology [facility], [address] [place] [address] [address] [facility] W[place] [id number] 0 Phone: () - 01/18 CBC w/ auto diff HGB g/dL 11.3 15.2 11.7 FINAL Tamanna noel Oncology - [facility], [address] [place] [address] [address] [facility] [place] [id number] 0 Phone: () - 01/18 CBC w/ auto diff PLT K/uL 113.0 364.0 156 FINAL Tamanna noel Oncology - [facility], [address] [place] [address] [address] [facility] [place] [id number] 0 Phone: () - 01/18 CBC w/ auto diff Avtar # (ANC) K/uL 1.6 6.6 4.3 FINAL Tamanna noel Oncology - [facility], [address] [place] [address] [address] [facility] W[place] [id number] 0 Phone: () - 01/18 CBC w/ auto diff Avtar % % 43.0 74.0 52.3 FINAL Tamanna noel Oncology - [facility], [address] [place] [address] [address] [facility] [place] [id number] [phone] Phone: () - 01/18 CBC w/ auto diff IG % % 0.0 0.5 0.5 FINAL Tamanna noel [facility], [address] [place] [address] [address] [facility] [place] [id number] Phone: () - 01/18 CBC w/ auto diff IG # K/uL 0.0 0.03 0.04 High FINAL Tamanna noel [facility] - [place] [facility], [address] [place] [id number] 0 Phone: () - 01/18 CBC w/ auto diff LY % % 14.0 41.0 31.7 FINAL Tamanna noel [facility] - [place] [facility], [address] [place] [address] [address] [place] [id number] 0 Phone: () - 01/18 CBC w/ auto diff MO % % 6.0 15.0 10.4 FINAL Tamanna noel [facility] - [place], [address] [place] [id number] 0 Phone: () - 01/18 CBC w/ auto diff EO % % 0.0 7.0 4.5 FINAL [facility] [place], [address] [place] [id number] 0 Phone: () - 01/18 CBC w/ auto diff BA % % 0.0 2.0 0.6 FINAL [facility] [place], [address] [place] [id number] 0 Phone: () - 01/18 CBC w/ auto diff LY # K/uL 0.4 3.6 2.6 FINAL [facility] [place], [address] [place] [id number] 0 Phone: () - 01/18 CBC w/ auto diff MO # K/uL 0.2 1.3 0.9 FINAL [facility] [place], [address] [place] [id number] 0 Phone: () - 01/18 CBC w/ auto diff EO # K/uL 0.0 0.6 0.4 FINAL [facility] [place], [address] [place] [address] [address] [place] [id number] 0 Phone: () - 01/18 CBC w/ auto diff BA # K/uL 0.0 0.2 0.1 FINAL [facility] [place], [address] [place] [address] [address] [place] [id number] 0 Phone: () - 01/18 CBC w/ auto diff NRBC % #/100W BC 0.0 0.2 0.0 FINAL [facility] [place], [address] [place] [address] [address] [place] [id number] 0 Phone: () - 01/18 CBC w/ auto diff RBC M/uL 3.9 5.1 3.36 Low FINAL [facility] [place], [address] [place] [address] [address] [place] [id number] 0 Phone: () - 01/18 CBC w/ auto diff HCT % 35.0 48.0 34.2 Low FINAL [facility] [place], [address] [place] [id number] 0 Phone: () - 01/18 CBC w/ auto diff MCV fL 80.0 104.0 101.8 FINAL [facility] [place], [address] [place] [id number] 0 Phone: () - 01/18 CBC w/ auto diff MCH pg 26.0 35.0 34.8 FINAL [facility] no[facility] [place], [address] [place] [address] [address] [place] [id number] 0 Phone: () - 01/18 CBC w/ auto diff MCHC g/dL 30.0 35.0 34.2 FINAL [facility] [place], [address] [place] [address] [address] [place] [id number] 0 Phone: () - 01/18 CBC w/ auto diff MPV fL 9.5 13.4 9.7 FINAL [facility] no[facility] [place], [address] [place] [address] [address] [place] [id number] 0 Phone: () - 01/18 CBC w/ auto diff RDW % 11.4 16.1 13.20 FINAL [facility] no[facility] [place], [address] [facility] [id number] Phone: () - 01/18 TSH panel TSH uIU/ml 0.32 5.0 1.55 Test performed at [facility] on a [employer] 2000 Immunoass ay Analyzer that uses an immunoenz ymometric sandwich assay for analysis. Patient testing should not be performed using multiple methoddanelle soto due to analytica l variation seen between test methoddanelle soto. FINAL Tamanna Rolon [facility] - [place], [address] [place] [address] [address] [facility] [id number] 0 Phone: () - 01/18 [facility] other lab See optical fabricator d 02/15 CMP Creat inine mg/dL 0.57 1.11 1.03 FINAL Annamarie Prenderg ast 02/15 CMP BUN/C reati nine ratio 10.0 20.0 15.0% FINAL Annamarie Prenderg ast 02/15 CMP GFR Afric an Ameri can, estim ated ml/min /1.73m 2 >60 FINAL Annamarie Prenderg ast 02/15 CMP GFR non-A frica n Ameri can, estim ated ml/min /1.73m 2 53 Low FINAL Annamarie Prenderg ast 02/15 CMP Album in g/dL 3.2 4.6 4.2 FINAL Annamarie Prenderg ast 02/15 CMP Total prote in g/dL 6.0 8.0 7.2 FINAL Annamarie Prenderg ast 02/15 CMP Globu samreen g/dL 2.0 3.7 3.0 FINAL Annamarie Prenderg ast 02/15 CMP A/G ratio 1.0 2.0 1.4% FINAL Annamarie Prenderg ast 02/15 CMP Bilir ubin, total mg/dL 0.2 1.2 0.4 FINAL Annamarie Prenderg ast 02/15 CMP Alkal ine phosp hatas e IU/L 50.0 136.0 70 FINAL Annamarie Prenderg ast 02/15 CMP ALT/S GPT IU/L 8.0 45.0 17 FINAL Annamarie Prenderg ast 02/15 CMP AST/S GOT IU/L 2.0 40.0 31 Test Performed by:[facility] [address] - [facility] [place] [address]Cgkr e [phone] FINAL Annamarie Zamorano ast 02/15 CMP Sodiu m mmol/L 135.0 145.0 134 Low FINAL Annamarierenny Smithg ast 02/15 CMP Potas sium mmol/L 3.5 5.0 4.5 FINAL Annamarierenny Bailonderg ast 02/15 CMP Chlor sathish mmol/L 98.0 110.0 99 FINAL Annamarierenny Bailonderg ast 02/15 CMP CO2 mmol/L 21.0 31.0 25 FINAL Annamarierenny Bailonderg ast 02/15 CMP Anion gap, mmol/ L 5.0 18.0 10.0% FINAL Annamarie Bailonderg ast 02/15 CMP Gluco se mg/dL 65.0 100.0 95 FINAL Annamarie Bailonderg ast 02/15 CMP Calci um mg/dL 8.5 10.5 9.3 FINAL Annamarie Bailonderg ast 02/15 CMP BUN mg/dL 8.0 25.0 15 FINAL Annamarie Smithg ast 02/15 CBC w/ auto diff WBC K/uL 3.0 8.9 9.3 High FINAL Annamarie Zamorano [facility] [place] [facility], [address] [place] [address] 200 [place] [id number] 0 Phone: () - 02/15 CBC w/ auto diff HGB g/dL 11.3 15.2 11.8 FINAL Annamarie rivero [facility] [place] [facility], [address] [place] [address] [address] [place] [id number] 0 Phone: () - 02/15 CBC w/ auto diff PLT K/uL 113.0 364.0 165 FINAL Annamarie rivero [facility] [place] [facility], [address] [place] [address] [address] [place] [id number] 0 Phone: () - 02/15 CBC w/ auto diff Avtar # (ANC) K/uL 1.6 6.6 5.3 FINAL Annamarie Zamorano ast [facility] [place] [facility], [address] [place] [address] [address] [place] [id number] 0 Phone: () - 02/15 CBC w/ auto diff Avtar % % 43.0 74.0 57.3 FINAL Annamarie Mcginnisot a [facility] [place], [address] [place] [address] [address] [place] [id number] 0 Phone: () - 02/15 CBC w/ auto diff IG % % 0.0 0.5 0.6 High FINAL Annamarie Mcginnisot a [facility] [place], [address] [place] [address] [address] [place] [id number] 0 Phone: () - 02/15 CBC w/ auto diff IG # K/uL 0.0 0.03 0.06 High FINAL Annamarie Mcginnisot a [facility] [place], [address] [place] [address] [address] [place] [id number] 0 Phone: () - 02/15 CBC w/ auto diff LY % % 14.0 41.0 27.4 FINAL Annamarie Mcginnisot a [facility] [place], [address] [place] [address] [address] [place] [id number] 0 Phone: () - 02/15 CBC w/ auto diff MO % % 6.0 15.0 9.1 FINAL Annamarie Mcginnisot a [facility] [place], [address] [place] [address] [address] [place] [id number] 0 Phone: () - 02/15 CBC w/ auto diff EO % % 0.0 7.0 5.0 FINAL Annamarie Mcginnisot a [facility] [place], [address] [place] [address] [address] [place] [id number] 0 Phone: () - 02/15 CBC w/ auto diff BA % % 0.0 2.0 0.6 FINAL Annamarie Mcginnisot a [facility] [place], [address] [place] [address] [address] [place] [id number] 0 Phone: () - 02/15 CBC w/ auto diff LY # K/uL 0.4 3.6 2.5 FINAL Annamarie Mcginnisot a [facility] [place], [address] [place] [address] [address] [place] [id number] 0 Phone: () - 02/15 CBC w/ auto diff MO # K/uL 0.2 1.3 0.8 FINAL Annamarie Mcginnisot bert [facility] [place] [facility], [address] [place] [address] [address] [place] [id number] 0 Phone: () - 02/15 CBC w/ auto diff EO # K/uL 0.0 0.6 0.5 FINAL [facility] [place] [facility], [address] [place] [address] [address] [place] [id number] 0 Phone: () - 02/15 CBC w/ auto diff BA # K/uL 0.0 0.2 0.1 FINAL Annamarie Mcginnisot [facility] [place] [facility], [address] [place] [address] [address] [place] [id number] 0 Phone: () - 02/15 CBC w/ auto diff NRBC % #/100W BC 0.0 0.2 0.0 FINAL Annamarie Mcginnisot a [facility] [place] [facility], [address] [place] [address] [address] [place] [id number] 0 Phone: () - 02/15 CBC w/ auto diff RBC M/uL 3.9 5.1 3.41 Low FINAL Annamarie Mcginnisot [facility] [place] [facility], [address] [place] [address] [address] [place] [id number] 0 Phone: () - 02/15 CBC w/ auto diff HCT % 35.0 48.0 35.1 FINAL Annamarie Mcginnisot a [facility] [place] [facility], [address] [place] [address] [address] [place] [id number] 0 Phone: () - 02/15 CBC w/ auto diff MCV fL 80.0 104.0 102.9 FINAL Annamarie Mcginnisot [facility] [place] [facility], [address] [place] [address] [address] [place] [id number] 0 Phone: () - 02/15 CBC w/ auto diff MCH pg 26.0 35.0 34.6 FINAL Annamarie Mcginnisot bert [facility] [place] [facility], [address] [place] [address] [address] [place] [id number] 0 Phone: () - 02/15 CBC w/ auto diff MCHC g/dL 30.0 35.0 33.6 FINAL Annamarie noel [facility], [address] [place] [address] [address] [facility] [id number] 0 Phone: () - 02/15 CBC w/ auto diff MPV fL 9.5 13.4 9.4 Low FINAL Annamarie noel [facility], [address] [place] [address] [address] [facility] [id number] 0 Phone: () - 02/15 CBC w/ auto diff RDW % 11.4 16.1 13.20 FINAL Annamarie noel [facility], [address] [place] [address] [address] [facility] [place] [id number] 0 Phone: () - 02/15 CA 125 panel CA 125 UNITS/ ML 0.0 34.0 8.40 Test performed at [facility] on a [employer] 2000 Immunoass ay Analyzer that uses an immunoenz ymometric sandwich assay for analysis. Patient testing should not be performed using multiple methodolo gies due to analytica l variation seen between test methodolo gies. [facility] [address] [facility] 100 [facility] [id number] 0 Phone: () - 02/15 TSH panel TSH uIU/mL 0.35 4.94 1.72 In Adults, TSH values between 5.00 and 10.00 uIU/ml do notnecess arily indicate the presence of Hypothyro idism.Cor relation with clinical findings such as presence of goiterand /or Thyropero xidase (TPO) Antibody may be helpful. Formore informati on please refer to KYLAH 2004; 291: 228-238.T est Performed by:[facility] [address] - [facility], [place] [id number] e [phone] FINAL Annamarie rivero 02/15 Misc other lab See optical fabricator d 03/15 CA 125 panel CA 125 UNITS/ ML 0.0 34.0 8.00 Test performed at [facility] on a [employer] 2000 Immunoass ay Analyzer that uses an immunoenz ymometric sandwich assay for analysis. Patient testing should not be performed using multiple methodolo gies due to analytica l variation seen between test methodolo gies. FINAL [facility], [address] [place] [address] 100 [facility] [id number] 0 Phone: () - 03/15 TSH panel TSH uIU/ml 0.32 5.0 3.10 Test performed at [facility] on a [employer] 2000 Immunoass ay Analyzer that uses an immunoenz ymometric sandwich assay for analysis. Patient testing should not be performed using multiple methodolo gies due to analytica l variation seen between test methodolo gies. FINAL Annamarie noel [facility], [address] [place] [address] [address] [facility] [id number] 0 Phone: () - 03/15 CBC w/ auto diff WBC K/uL 3.0 8.9 8.9 FINAL Annamarie noel [facility] - [facility], [address] [place] [address] 200 [facility] [id number] 0 Phone: () - 03/15 CBC w/ auto diff HGB g/dL 11.3 15.2 12.1 FINAL Annamarie noel [facility] - [facility], [address] [place] [address] 200 [facility] [place] [id number] 0 Phone: () - 03/15 CBC w/ auto diff PLT K/uL 113.0 364.0 171 FINAL Annamarie noel [facility] - [facility], [address] [place] [address] 200 [facility] [place] [id number] 0 Phone: () - 03/15 CBC w/ auto diff Avtar # (ANC) K/uL 1.6 6.6 5.2 FINAL Annamarie noel [facility] - [facility], [address] [place] [address] 200 [place] [id number] 0 Phone: () - 03/15 CBC w/ auto diff Avtar % % 43.0 74.0 58.5 FINAL [facility], [address] [place] [address] 200 [place] [id number] 0 Phone: () - 03/15 CBC w/ auto diff IG % % 0.0 0.5 0.7 High FINAL Annamarie Mcginnis bert [facility] - [facility], [address] [place] [address] 200 [facility] [place] [id number] 0 Phone: () - 03/15 CBC w/ auto diff IG # K/uL 0.0 0.03 0.06 High FINAL Annamarierenny Mcginnisot [facility] [place] [facility], [address] 200 [facility] [place] [id number] 0 Phone: () - 03/15 CBC w/ auto diff LY % % 14.0 41.0 27.2 FINAL Annamarierenny Mcginnisot a [facility] - [place], [address] 200 [facility] [place] [id number] 0 Phone: () - 03/15 CBC w/ auto diff MO % % 6.0 15.0 7.4 FINAL Annamarierenny Mcginnisot [facility] [place] [facility], [address] [place] [address] 200 [facility] [place] [id number] 0 Phone: () - 03/15 CBC w/ auto diff EO % % 0.0 7.0 5.5 FINAL Annamarie Mcginnisot [facility] [place] [facility], [address] [place] [address] 200 [facility] [place] [id number] 0 Phone: () - 03/15 CBC w/ auto diff BA % % 0.0 2.0 0.7 FINAL Annamarie Mcginnisot [facility] [place] [facility], [address] [place] [address] 200 [facility] [place] [id number] 0 Phone: () - 03/15 CBC w/ auto diff LY # K/uL 0.4 3.6 2.4 FINAL Annamarie Mcginnisot [facility] [place] [facility], [facility] [address] [facility] [place] [id number] 0 Phone: () - 03/15 CBC w/ auto diff MO # K/uL 0.2 1.3 0.7 FINAL Annamarierenny rivero [facility] [place] [facility], [facility] [address] 200 [place] [id number] 0 Phone: () - 03/15 CBC w/ auto diff EO # K/uL 0.0 0.6 0.5 FINAL Annamarierenny rivero [facility] [place] [facility], [address] 200 [facility] [place] [id number] 0 Phone: () - 03/15 CBC w/ auto diff BA # K/uL 0.0 0.2 0.1 FINAL Annamarie Mcginnisot b[facility] [place] [facility], [address] [place] [address] [address] [place] [id number] 0 Phone: () - 03/15 CBC w/ auto diff NRBC % #/100W BC 0.0 0.2 0.0 FINAL Annamarie Mcginnisot [facility] [place] [facility], [address] [place] [address] [address] [place] [id number] 0 Phone: () - 03/15 CBC w/ auto diff RBC M/uL 3.9 5.1 3.41 Low FINAL Annamarie Mcginnisot [facility] [place] [facility], [address] [place] [address] [address] [place] [id number] 0 Phone: () - 03/15 CBC w/ auto diff HCT % 35.0 48.0 35.5 FINAL Annamarie Mcginnisot [facility] [place] [facility], [address] [place] [address] [address] [place] [id number] 0 Phone: () - 03/15 CBC w/ auto diff MCV fL 80.0 104.0 104.1 High FINAL Annamarie Mcginnisot [facility] [place] [facility], [address] [place] [address] [address] [place] [id number] 0 Phone: () - 03/15 CBC w/ auto diff MCH pg 26.0 35.0 35.5 High FINAL Annamarie Mcginnisot b[facility] [place] [facility], [address] [place] [address] [address] [place] [id number] 0 Phone: () - 03/15 CBC w/ auto diff MCHC g/dL 30.0 35.0 34.1 FINAL Annamarie Mcginnisot [facility] [place] [facility], [address] [place] [address] [address] [place] [id number] 0 Phone: () - 03/15 CBC w/ auto diff MPV fL 9.5 13.4 9.6 FINAL Annamarie Mcginnisot a [facility] [place] [facility], [address] [place] [address] [address] [place] [id number] 0 Phone: () - 03/15 CBC w/ auto diff RDW % 11.4 16.1 13.00 FINAL Annamarie Prenderg [facility], [address] [facility] [address] [place] [id number] 0 Phone: () - 03/15 CMP Sodiu m mmol/L 135.0 145.0 133 Low FINAL Annamarie Smith ast 03/15 CMP Potas sium mmol/L 3.5 5.0 4.5 FINAL Annamarie Smith ast 03/15 CMP Chlor sathish mmol/L 98.0 110.0 96 Low FINAL Annamarierenny Smith ast 03/15 CMP CO2 mmol/L 21.0 31.0 29 FINAL Annamarierenny Smith ast 03/15 CMP Anion gap, mmol/ L 5.0 18.0 8.0% FINAL Annamarie Smith ast 03/15 CMP Gluco se mg/dL 65.0 100.0 95 FINAL Annamarie Smith ast 03/15 CMP Calci um mg/dL 8.5 10.5 10.3 FINAL Annamarierenny Smith ast 03/15 CMP BUN mg/dL 8.0 25.0 14 FINAL Annamarierenny Smith ast 03/15 CMP Creat inine mg/dL 0.57 1.11 1.13 High FINAL Annamarierenny Smith ast 03/15 CMP BUN/C reati nine ratio 10.0 20.0 12.0% FINAL Annamarierenny Smith ast 03/15 CMP GFR Afric an Ameri can, estim ated ml/min /1.73m 2 58 Low FINAL Annamarierenny Smith ast 03/15 CMP GFR non-A frica n Ameri can, estim ated ml/min /1.73m 2 48 Low FINAL Annamarierenny Smith ast 03/15 CMP Album in g/dL 3.2 4.6 4.3 FINAL Annamarierenny Smith ast 03/15 CMP Total prote in g/dL 6.0 8.0 7.5 FINAL Annamarie Luis ast 03/15 CMP Globu samreen g/dL 2.0 3.7 3.2 FINAL Annamarierenny Smith ast 03/15 CMP A/G ratio 1.0 2.0 1.3% FINAL Annamarie Luis ast 03/15 CMP Bilir ubin, total mg/dL 0.2 1.2 0.5 FINAL Annamraie Zamorano ast 03/15 CMP Alkal ine phosp hatas e IU/L 50.0 136.0 69 FINAL Annamarie Zamorano ast 03/15 CMP ALT/S GPT IU/L 8.0 45.0 18 FINAL Annamarie Zamorano ast 03/15 CMP AST/S GOT IU/L 2.0 40.0 29 Test Performed by:[facility] [address] - [facility] [place], [place] [address]Yrqe e : FINAL Annamarie Zamorano ast 03/15 [facility] other lab See [facility] d 03/15 [facility] other lab See [facility] d 03/24 [facility] other lab See optical fabricator d 04/12 TSH panel TSH uIU/ml 0.32 5.0 1.71 Test performed at [facility] on a [employer] Immunoass ay Analyzer that uses an immunoenz ymometric sandwich assay for analysis. Patient testing should not be performed using multiple methodolo ginorris due to analytica l variation seen between test methoddanelle soto. FINAL Annamarie Mcginnisot a [facility], [address] [facility] [address] [facility] [id number] 0 Phone: () - 04/12 CBC w/ auto diff MCH pg 26.0 35.0 35.0 FINAL Annamarie Mcginnisot a [facility], [address] [place] [address] [address] [place] [id number] 0 Phone: () - 04/12 CBC w/ auto diff MCHC g/dL 30.0 35.0 33.1 FINAL Annamarie Mcginnisot a Oncology [facility], [address] [place] [id number] 0 Phone: () - 04/12 CBC w/ auto diff MPV fL 9.5 13.4 9.5 FINAL Annamarie Mcginnisot a [facility], [address] [place] [id number] 0 Phone: () - 04/12 CBC w/ auto diff RDW % 11.4 16.1 12.90 FINAL Annamarie noel [facility] [place], [address] [place] [address] [address] [place] [id number] 0 Phone: () - 04/12 CBC w/ auto diff WBC K/uL 3.0 8.9 8.9 FINAL Annamarie noel [facility] - [place], [address] [place] [address] [address] [place] [id number] 0 Phone: () - 04/12 CBC w/ auto diff HGB g/dL 11.3 15.2 11.8 FINAL Annamarie Peters a [facility] - [place], [address] [place] [address] [address] [place] [id number] 0 Phone: () - 04/12 CBC w/ auto diff PLT K/uL 113.0 364.0 162 FINAL Annamarie noel [facility] - [place], [address] [place] [address] [address] [place] [id number] 0 Phone: () - 04/12 CBC w/ auto diff Avtar # (ANC) K/uL 1.6 6.6 5.0 FINAL Annamarie Peters a [facility] - [place], [address] [place] [address] [address] [place] [id number] 0 Phone: () - 04/12 CBC w/ auto diff Avtar % % 43.0 74.0 56.1 FINAL Annamarie Mcginnisot a [facility] - [place], [address] [place] [address] [address] [place] [id number] 0 Phone: () - 04/12 CBC w/ auto diff IG % % 0.0 0.5 0.7 High FINAL Annamarie Mcginnisot a [facility] - [place], [address] [place] [address] [address] [place] [id number] 0 Phone: () - 04/12 CBC w/ auto diff IG # K/uL 0.0 0.03 0.06 High FINAL Annamarie Mcginnisot a [facility] [place], [address] [place] [address] [address] [place] [id number] 0 Phone: () - 04/12 CBC w/ auto diff LY % % 14.0 41.0 29.0 FINAL Annamarie Mcginnisot a [facility] [place] [facility], [address] [place] [id number] 0 Phone: () - 04/12 CBC w/ auto diff MO % % 6.0 15.0 7.8 FINAL Annamarie noel [facility] [place] [facility], [address] [place] [id number] 0 Phone: () - 04/12 CBC w/ auto diff EO % % 0.0 7.0 5.6 FINAL Annamarie noel [facility] [place] [facility], [address] [place] [id number] 0 Phone: () - 04/12 CBC w/ auto diff BA % % 0.0 2.0 0.8 FINAL Annamarie noel [facility] [place] [facility], [address] [place] [id number] 0 Phone: () - 04/12 CBC w/ auto diff LY # K/uL 0.4 3.6 2.6 FINAL Annamarie Peters a [facility] [place] [facility], [address] [place] [address] [address] [place] [id number] 0 Phone: () - 04/12 CBC w/ auto diff MO # K/uL 0.2 1.3 0.7 FINAL Annamarie noel [facility] [place] [facility], [address] [place] [address] [address] [place] [id number] 0 Phone: () - 04/12 CBC w/ auto diff EO # K/uL 0.0 0.6 0.5 FINAL Annamarie noel [facility] [place] [facility], [address] [place] [id number] 0 Phone: () - 04/12 CBC w/ auto diff BA # K/uL 0.0 0.2 0.1 FINAL Annamarie noel [facility] [place] [facility], [address] [place] [id number] 0 Phone: () - 04/12 CBC w/ auto diff NRBC % #/100W BC 0.0 0.2 0.0 FINAL Annamarie Mcginnisot a [facility] [place] [facility], [address] [facility] [place] [id number] 0 Phone: () - 04/12 CBC w/ auto diff RBC M/uL 3.9 5.1 3.37 Low FINAL Annamarie noel Oncology - [facility], [address] [facility] [place] [id number] 0 Phone: () - 04/12 CBC w/ auto diff HCT % 35.0 48.0 35.7 FINAL Annamarie noel Oncology [facility], [address] [facility] [place] [id number] 0 Phone: () - 04/12 CBC w/ auto diff MCV fL 80.0 104.0 105.9 High FINAL Annamarie noel Oncology [facility], [address] 200 [facility] [place] [id number] 0 Phone: () - 04/12 CA 125 panel CA 125 UNITS/ ML 0.0 34.0 7.70 Test performed at [facility] on a [employer] Immunoass ay Analyzer that uses an immunoenz ymometric sandwich assay for analysis. Patient testing should not be performed using multiple methodolo charles due to analytica l variation seen between test methoddanelle soto. FINAL Annamarie noel On[facility] - [place], [address] [facility] 100 [facility] [id number] 0 Phone: () - 04/12 CMP Sodiu m mmol/L 135.0 145.0 132 Low FINAL Annamarie Zamorano ast 04/12 CMP Potas sium mmol/L 3.5 5.0 4.5 FINAL Annamarie Smithg ast 04/12 CMP Chlor sathish mmol/L 98.0 110.0 97 Low FINAL Annamarie Smithg ast 04/12 CMP CO2 mmol/L 21.0 31.0 27 FINAL Annamarie Zamorano ast 04/12 CMP Anion gap, mmol/ L 5.0 18.0 8.0% FINAL Annamarie Smithg ast 04/12 CMP Gluco se mg/dL 65.0 100.0 96 FINAL Annamarie Smithg ast 04/12 CMP Calci um mg/dL 8.5 10.5 9.4 FINAL Annamarie Smithg ast 04/12 CMP BUN mg/dL 8.0 25.0 12 FINAL Annamarie Smithg ast 04/12 CMP Creat inine mg/dL 0.57 1.11 1.02 FINAL Annamarie Smithg ast 04/12 CMP BUN/C reati nine ratio 10.0 20.0 12.0% FINAL Annamarie Smithg ast 04/12 CMP GFR [place] an Amer[place] can, estim ated ml/min /1.73m 2 >60 FINAL Annamarie Bailonderg ast 04/12 CMP GFR non-A f[place] n Ameri can, estim ated ml/min /1.73m 2 54 Low FINAL Annamarie Bailonderg ast 04/12 CMP Album in g/dL 3.2 4.6 4.2 FINAL Annamarie Bailonderg ast 04/12 CMP Total prote in g/dL 6.0 8.0 7.0 FINAL Annamarie Bailonderg ast 04/12 CMP Globu samreen g/dL 2.0 3.7 2.8 FINAL Annamarie Bailonderg ast 04/12 CMP A/G ratio 1.0 2.0 1.5% FINAL Annamarie Bailonderg ast 04/12 CMP Bilir ubin, total mg/dL 0.2 1.2 0.4 FINAL Annamarie Smithg ast 04/12 CMP Alkal ine phosp hatas e IU/L 50.0 136.0 63 FINAL Annamarie Bailonderg ast 04/12 CMP ALT/S GPT IU/L 8.0 45.0 16 FINAL Annamarie Bailonderg ast 04/12 CMP AST/S GOT IU/L 2.0 40.0 30 Test Performed by:[facility] [address], [address] - [facility] [place] [id number] e [phone] FINAL Annamarie Zamorano ast 04/12 [facility] other lab See optical fabricator d 04/12 [facility] other lab See optical fabricator d 05/10 CBC w/ auto diff BA % % 0.0 2.0 0.5 FINAL Tamanna Mcginnisot a Oncology - [facility], [address] [place] [address] [address] [place] [id number] 0 Phone: () - 05/10 CBC w/ auto diff LY # K/uL 0.4 3.6 2.3 FINAL Tamanna noel Oncology - [place] [facility], [address] [place] [address] 200 [place] [id number] 0 Phone: () - 05/10 CBC w/ auto diff MO # K/uL 0.2 1.3 0.8 FINAL Tamanna noel Oncology - [place] [facility], [address] [place] [address] 200 [place] [id number] 0 Phone: () - 05/10 CBC w/ auto diff EO # K/uL 0.0 0.6 0.5 FINAL Tamanna noel Oncology - [place] [facility], [address] [place] [address] 200 [place] [id number] 0 Phone: () - 05/10 CBC w/ auto diff BA # K/uL 0.0 0.2 0.1 FINAL Tamanna noel Oncology - [place] [facility], [address] [place] [address] 200 [place] [id number] 0 Phone: () - 05/10 CBC w/ auto diff NRBC % #/100W BC 0.0 0.2 0.0 FINAL Tamanna noel Oncology - [place] [facility], [address] [place] [address] [address] [place] [id number] 0 Phone: () - 05/10 CBC w/ auto diff RBC M/uL 3.9 5.1 3.61 Low FINAL Tamanna noel Oncology - [place] [facility], [address] [place] [address] 200 [place] [id number] 0 Phone: () - 05/10 CBC w/ auto diff HCT % 35.0 48.0 36.9 FINAL Tamanna noel Oncology - [place] [facility], [address] [place] [address] 200 [place] [id number] 0 Phone: () - 05/10 CBC w/ auto diff MCV fL 80.0 104.0 102.2 FINAL Tamanna noel Oncology - [place] [facility], [address] [place] [address] [address] [place] [id number] 0 Phone: () - 05/10 CBC w/ auto diff MCH pg 26.0 35.0 35.7 High FINAL Tamanna noel Oncology - [place] [facility], [address] [place] [id number] 0 Phone: () - 05/10 CBC w/ auto diff MCHC g/dL 30.0 35.0 35.0 FINAL Tamanna noel Oncology - [place] [facility], [address] [place] [id number] 0 Phone: () - 05/10 CBC w/ auto diff MPV fL 9.5 13.4 9.2 Low FINAL Tamanna noel Oncology - [place] [facility], [address] [place] [id number] 0 Phone: () - 05/10 CBC w/ auto diff RDW % 11.4 16.1 12.50 FINAL Tamanna noel Oncology - [place] [facility], [address] [place] [id number] 0 Phone: () - 05/10 CBC w/ auto diff WBC K/uL 3.0 8.9 10.3 High FINAL Tamanna noel Oncology - [place] [facility], [address] [place] [id number] 0 Phone: () - 05/10 CBC w/ auto diff HGB g/dL 11.3 15.2 12.9 FINAL Tamanna noel Oncology - [place] [facility], [address] [place] [id number] 0 Phone: () - 05/10 CBC w/ auto diff PLT K/uL 113.0 364.0 172 FINAL Tamanna noel Oncology - [place] [facility], [address] [place] [address] [address] [place] [id number] 0 Phone: () - 05/10 CBC w/ auto diff Avtar # (ANC) K/uL 1.6 6.6 6.6 FINAL Tamanna noel Oncology - [place] [facility], [address] [place] [id number] 0 Phone: () - 05/10 CBC w/ auto diff Avtar % % 43.0 74.0 64.3 FINAL Tamanna noel Oncology - [place] [facility], [address] [facility] [place] [id number] 0 Phone: () - 05/10 CBC w/ auto diff IG % % 0.0 0.5 0.7 High FINAL Tamanna noel Oncology - [facility], [address] [facility] [place] [id number] 0 Phone: () - 05/10 CBC w/ auto diff IG # K/uL 0.0 0.03 0.07 High FINAL Tamanna noel Oncology - [facility], [address] [facility] [place] [id number] 0 Phone: () - 05/10 CBC w/ auto diff LY % % 14.0 41.0 22.7 FINAL Tamanna noel Oncology [facility], [address] [facility] [place] [id number] 0 Phone: () - 05/10 CBC w/ auto diff MO % % 6.0 15.0 7.4 FINAL Tamanna noel Oncology - [facility], [address] [facility] [place] [id number] 0 Phone: () - 05/10 CBC w/ auto diff EO % % 0.0 7.0 4.4 FINAL Tamanna noel Oncology - [facility], [address] [facility] [place] [id number] 0 Phone: () - 05/10 CA 125 panel CA 125 UNITS/ ML 0.0 34.0 9.80 Test performed at [facility] on a [employer] 2000 Immunoass ay Analyzer that uses an immunoenz ymometric sandwich assay for analysis. Patient testing should not be performed using multiple methodolo gies due to analytica l variation seen between test methodolo gies. FINAL Tamanna noel Oncology [facility], [address] [facility] [address] [facility] [id number] 0 Phone: () - 05/10 TSH panel TSH uIU/ml 0.32 5.0 1.90 Test performed at [facility] on a [employer] 2000 Immunoass ay Analyzer that uses an immunoenz ymometric sandwich assay for analysis. Patient testing should not be performed using multiple methodolo gies due to analytica l variation seen between test methoddanelle soto. FINAL Tamanna Mcginnisot a Oncology - [place], [address] [place] [address] [address] [facility] [id number] 0 Phone: () - 05/10 CMP Sodiu m mmol/L 135.0 145.0 132 Low FINAL Tamanna Rolon 05/10 CMP Potas sium mmol/L 3.5 5.0 4.4 FINAL Tamanna Rolon 05/10 CMP Chlor sathish mmol/L 98.0 [...] /1.73m 2 54 Low FINAL Tamanna Rolon 05/10 CMP Album in g/dL 3.2 4.6 4.2 FINAL Tamanna Rolon 05/10 CMP Total prote in g/dL 6.0 8.0 7.0 FINAL Tamanna Rolon 05/10 CMP Globu samreen g/dL 2.0 3.7 2.8 FINAL Tamanna Rolon 05/10 CMP A/G ratio 1.0 2.0 1.5% FINAL Tamanna Rolon 05/10 CMP Bilir ubin, total mg/dL 0.2 1.2 0.4 FINAL Tamanna Rolon 05/10 CMP Alkal ine phosp hatas e IU/L 50.0 136.0 66 FINAL Tamanna Rolon 05/10 CMP ALT/S GPT IU/L 8.0 45.0 21 FINAL Tamanna Rolon 05/10 CMP AST/S GOT IU/L 2.0 40.0 33 Test Performed by:[facility] [address], [address] - [facility] [place] [id number] e [phone] FINAL Tamanna Rolon 05/10 [facility] other lab See optical fabricator d 05/10 [facility] other lab See optical fabricator d 05/25 [facility] other lab See optical fabricator d 06/07 CMP Sodiu m mmol/L 135.0 145.0 130 Low FINAL Annamarie Zamorano ast 06/07 CMP Potas sium mmol/L 3.5 5.0 4.4 FINAL Annamarie Prenderg ast 06/07 CMP Chlor sathish mmol/L 98.0 110.0 91 Low FINAL Annamarie Prenderg ast 06/07 CMP CO2 mmol/L 21.0 31.0 30 FINAL Annamarie Prenderg ast 06/07 CMP Anion gap, mmol/ L 5.0 18.0 9.0% FINAL Annamarie Prenfareedg ast 06/07 CMP Gluco se mg/dL 65.0 100.0 87 FINAL Annamarie Bailonderg ast 06/07 CMP Calci um mg/dL 8.5 10.5 10.1 FINAL Annamarie Bailonderg ast 06/07 CMP BUN mg/dL 8.0 25.0 12 FINAL Annamarie Bailonderg ast 06/07 CMP Creat inine mg/dL 0.57 1.11 1.12 High FINAL Annamarie Prenderg ast 06/07 CMP BUN/C reati nine ratio 10.0 20.0 11.0% FINAL Annamarie Prenderg ast 06/07 CMP GFR Afric an Ameri can, estim ated ml/min /1.73m 2 58 Low FINAL Annamarie Bailonderg ast 06/07 CMP GFR non-A frica n Ameri can, estim ated ml/min /1.73m 2 48 Low FINAL Annamarie Zamorano ast 06/07 CMP Album in g/dL 3.2 4.6 4.2 FINAL Annamarie Zamorano ast 06/07 CMP Total prote in g/dL 6.0 8.0 7.3 FINAL Annamarie Zamorano ast 06/07 CMP Globu samreen g/dL 2.0 3.7 3.1 FINAL Annamarie Zamorano ast 06/07 CMP A/G ratio 1.0 2.0 1.4% FINAL Annamarie Zamorano ast 06/07 CMP Bilir ubin, total mg/dL 0.2 1.2 0.5 FINAL Annamarie Zamorano ast 06/07 CMP Alkal ine phosp hatas e IU/L 50.0 136.0 63 FINAL Annamarie Zamorano ast 06/07 CMP ALT/S GPT IU/L 8.0 45.0 24 FINAL Annamarie Zamorano ast 06/07 CMP AST/S GOT IU/L 2.0 40.0 44 High Test Performed by:[facility] [address] - [place], [place] [address]Igmd e : FINAL Annamarie Zamorano ast 06/07 TSH panel TSH uIU/ml 0.32 5.0 3.43 Test performed at [facility] on a [employer] Immunoass ay Analyzer that uses an immunoenz ymometric sandwich assay for analysis. Patient testing should not be performed using multiple methodolo gies due to analytica l variation seen between test methodolo gies. FINAL Annamarie Mcginnisot a Oncology [address] [phone] 0 Phone: () - 06/07 CA 125 panel CA 125 UNITS/ ML 0.0 34.0 9.80 Test performed at [facility] on a [employer] 2000 Immunoass ay Analyzer that uses an immunoenz ymometric sandwich assay for analysis. Patient testing should not be performed using multiple methodolo gies due to analytica l variation seen between test methodolo gies. FINAL Annamarie rivero [place] [facility] [address] [phone] 0 Phone: () - 06/07 CBC w/ auto diff WBC K/uL 3.0 8.9 9.5 High FINAL Annamarie Mcginnisot a Oncology - [place] [facility], [address] [place] [address] [address] [place] [id number] 0 Phone: () - 06/07 CBC w/ auto diff HGB g/dL 11.3 15.2 12.2 FINAL Annamarie Mcginnisot a Oncology - [place] [facility], [address] [place] [address] [address] [place] [id number] 0 Phone: () - 06/07 CBC w/ auto diff PLT K/uL 113.0 364.0 166 FINAL Annamarie Mcginnisot a Oncology - [place] [facility], [address] [place] [address] [address] [place] [id number] 0 Phone: () - 06/07 CBC w/ auto diff Avtar # (ANC) K/uL 1.6 6.6 5.8 FINAL Annamarie Mcginnisot a Oncology - [place] [facility], [address] [place] [address] [address] [place] [id number] 0 Phone: () - 06/07 CBC w/ auto diff Avtar % % 43.0 74.0 60.6 FINAL Annamarie Mcginnisot a Oncology - [place] [facility], [address] [place] [address] [address] [place] [id number] 0 Phone: () - 06/07 CBC w/ auto diff IG % % 0.0 0.5 0.7 High FINAL Annamarie Mcginnisot a Oncology - [place] [facility], [address] [place] [address] [address] [place] [id number] 0 Phone: () - 06/07 CBC w/ auto diff IG # K/uL 0.0 0.03 0.07 High FINAL Annamarierenny rivero [place] [facility] - [place] [facility], [address] [place] [address] [address] [place] [id number] 0 Phone: () - 06/07 CBC w/ auto diff LY % % 14.0 41.0 25.2 FINAL Annamarierenny rivero [place] [facility] - [place] [facility], [address] [place] [address] [address] [place] [id number] 0 Phone: () - 06/07 CBC w/ auto diff MO % % 6.0 15.0 7.7 FINAL Annamarie Mcginnisot a Oncology - [place] [facility], [address] [place] [address] [address] [place] [id number] 0 Phone: () - 06/07 CBC w/ auto diff EO % % 0.0 7.0 5.1 FINAL Annamarie Mcginnisot a Oncology - [place] [facility], [address] [place] [address] [address] [place] [id number] 0 Phone: () - 06/07 CBC w/ auto diff BA % % 0.0 2.0 0.7 FINAL Annamarie Mcginnisot a Oncology - [place] [facility], [address] [place] [address] [address] [place] [id number] 0 Phone: () - 06/07 CBC w/ auto diff LY # K/uL 0.4 3.6 2.4 FINAL Annamarie Mcginnisot a Oncology - [place] [facility], [address] [place] [address] [address] [place] [id number] 0 Phone: () - 06/07 CBC w/ auto diff MO # K/uL 0.2 1.3 0.7 FINAL Annamarie Mcginnisot a Oncology - [place] [facility], [address] [place] [address] [address] [place] [id number] 0 Phone: () - 06/07 CBC w/ auto diff EO # K/uL 0.0 0.6 0.5 FINAL Annamarie Mcginnisot a Oncology - [place] [facility], [address] [place] [address] [address] [place] [id number] 0 Phone: () - 06/07 CBC w/ auto diff BA # K/uL 0.0 0.2 0.1 FINAL Annamarie Mcginnisot a Oncology - [place] [facility], [address] [place] [address] [address] [place] [id number] 0 Phone: () - 06/07 CBC w/ auto diff NRBC % #/100W BC 0.0 0.2 0.0 FINAL Annamarie Mcginnisot a Oncology - [place] [facility], [address] [place] [address] [address] [place] [id number] 0 Phone: () - 06/07 CBC w/ auto diff RBC M/uL 3.9 5.1 3.46 Low FINAL [facility], [address] [place] [address] [address] [place] [id number] 0 Phone: () - 06/07 CBC w/ auto diff HCT % 35.0 48.0 35.6 FINAL [facility], [address] [place] [address] [address] [place] [id number] 0 Phone: () - 06/07 CBC w/ auto diff MCV fL 80.0 104.0 102.9 FINAL [facility] no[facility], [address] [place] [address] [address] [place] [id number] 0 Phone: () - 06/07 CBC w/ auto diff MCH pg 26.0 35.0 35.3 High FINAL [facility]nam[facility] no[facility], [address] [place] [address] [address] [place] [id number] 0 Phone: () - 06/07 CBC w/ auto diff MCHC g/dL 30.0 35.0 34.3 FINAL Annamarie no[facility], [address] [place] [address] [address] [place] [id number] 0 Phone: () - 06/07 CBC w/ auto diff MPV fL 9.5 13.4 9.4 Low FINAL Annamarie no[facility], [address] [place] [address] [address] [place] [id number] 0 Phone: () - 06/07 CBC w/ auto diff RDW % 11.4 16.1 12.50 FINAL Annamarie noel [facility], [address] [place] [address] [address] [place] [id number] 0 Phone: () - 06/07 Misc other lab See optical fabricator d 07/05 TSH panel TSH uIU/ml 0.32 5.0 2.46 Test performed at [facility] on a [employer] Immunoass ay Analyzer that uses an immunoenz ymometric sandwich assay for analysis. Patient testing should not be performed using multiple hallie soto due to analytica l variation seen between test hallie soto. FINAL [facility] [address] [place] [address] [address] [facility] [id number] 0 Phone: () - 07/05 CA 125 panel CA 125 UNITS/ ML 0.0 34.0 9.50 Test performed at [facility] on a [employer] 2000 Immunoass ay Analyzer that uses an immunoenz ymometric sandwich assay for analysis. Patient testing should not be performed using multiple methodolo ginorris due to analytica l variation seen between test methodolo gies. FINAL Tamanna noel Oncology [facility], [address] [place] [address] [address] [facility] [id number] 0 Phone: () - 07/05 CBC w/ auto diff BA # K/uL 0.0 0.2 0.1 FINAL [facility] no[facility], [address] [place] [address] 200 [place] [id number] 0 Phone: () - 07/05 CBC w/ auto diff NRBC % #/100W BC 0.0 0.2 0.0 FINAL Tam[facility] noel [facility], [address] [place] [address] 200 [place] [id number] 0 Phone: () - 07/05 CBC w/ auto diff RBC M/uL 3.9 5.1 3.54 Low FINAL Tam[facility] noel [facility], [address] [place] [address] 200 [place] [id number] 0 Phone: () - 07/05 CBC w/ auto diff HCT % 35.0 48.0 37.0 FINAL Tamanna noel [facility], [address] [place] [address] 200 [place] [id number] 0 Phone: () - 07/05 CBC w/ auto diff MCV fL 80.0 104.0 104.5 High FINAL Tamanna noel [facility], [address] [place] [address] 200 [place] [id number] 0 Phone: () - 07/05 CBC w/ auto diff MCH pg 26.0 35.0 35.0 FINAL Tam[facility] noel [facility], [address] [place] [address] 200 [place] [id number] 0 Phone: () - 07/05 CBC w/ auto diff MCHC g/dL 30.0 35.0 33.5 FINAL Tamanna noel Oncology - [place] [facility], [address] [place] [address] [address] [place] [id number] 0 Phone: () - 07/05 CBC w/ auto diff MPV fL 9.5 13.4 9.5 FINAL Tamanna noel Oncology - [place] [facility], [address] [place] [address] [address] [place] [id number] 0 Phone: () - 07/05 CBC w/ auto diff RDW % 11.4 16.1 13.10 FINAL Tamanna noel Oncology - [place] [facility], [address] [place] [id number] 0 Phone: () - 07/05 CBC w/ auto diff WBC K/uL 3.0 8.9 10.4 High FINAL Tamanna noel Oncology - [place] [facility], [address] [place] [id number] 0 Phone: () - 07/05 CBC w/ auto diff HGB g/dL 11.3 15.2 12.4 FINAL Tamanna noel Oncology - [place] [facility], [address] [place] [id number] 0 Phone: () - 07/05 CBC w/ auto diff PLT K/uL 113.0 364.0 177 FINAL Tamanna noel Oncology - [place] [facility], [address] [place] [id number] 0 Phone: () - 07/05 CBC w/ auto diff Avtar # (ANC) K/uL 1.6 6.6 6.3 FINAL Tamanna noel Oncology - [place] [facility], [address] [place] [address] [address] [place] [id number] 0 Phone: () - 07/05 CBC w/ auto diff Avtar % % 43.0 74.0 61.2 FINAL Tamanna noel Oncology - [place] [facility], [address] [place] [address] [address] [place] [id number] 0 Phone: () - 07/05 CBC w/ auto diff IG % % 0.0 0.5 0.7 High FINAL Tamanna noel Oncology - [place] [facility], [address] [place] [id number] 0 Phone: () - 07/05 CBC w/ auto diff IG # K/uL 0.0 0.03 0.07 High FINAL Tamanna noel Oncology - [place] [facility], [address] [place] [id number] 0 Phone: () - 07/05 CBC w/ auto diff LY % % 14.0 41.0 24.2 FINAL Tamanna noel Oncology - [place] [facility], [address] [place] [id number] 0 Phone: () - 07/05 CBC w/ auto diff MO % % 6.0 15.0 8.6 FINAL Tamanna noel Oncology - [place] [facility], [address] [place] [id number] 0 Phone: () - 07/05 CBC w/ auto diff EO % % 0.0 7.0 4.5 FINAL Tamanna noel Oncology - [place] [facility], [address] [place] [id number] 0 Phone: () - 07/05 CBC w/ auto diff BA % % 0.0 2.0 0.8 FINAL Tamanna noel Oncology - [place], [address] [place] [id number] 0 Phone: () - 07/05 CBC w/ auto diff LY # K/uL 0.4 3.6 2.5 FINAL Tamanna noel Oncology - [place] [facility], [address] [place] [id number] 0 Phone: () - 07/05 CBC w/ auto diff MO # K/uL 0.2 1.3 0.9 FINAL Tamanna noel Oncology - [place] [facility], [address] [place] [id number] 0 Phone: () - 07/05 CBC w/ auto diff EO # K/uL 0.0 0.6 0.5 FINAL Tamanna noel Oncology - [place] [facility], [address] [place] [id number] 0 Phone: () - 07/05 CMP Sodiu m mmol/L 135.0 145.0 133 Low FINAL Tamanna Rolon 07/05 CMP Potas sium mmol/L 3.5 5.0 4.6 FINAL Tamanna Rolon 07/05 CMP Chlor sathish mmol/L 98.0 110.0 94 Low FINAL Tamannanithin Rolon 07/05 CMP CO2 mmol/L 21.0 31.0 29 FINAL Tamannanithin Rolon 07/05 CMP Anion gap, mmol/ L 5.0 18.0 10.0% FINAL Tamanna Rolon 07/05 CMP Gluco se mg/dL 65.0 100.0 100 FINAL Tamanna Rolon 07/05 CMP Calci um mg/dL 8.5 10.5 9.8 FINAL Tamanna Rolon 07/05 CMP BUN mg/dL 8.0 25.0 15 FINAL Tamannanithin Rolon 07/05 CMP Creat inine mg/dL 0.57 1.11 1.22 High FINAL Tamanna Rolon 07/05 CMP BUN/C reati nine ratio 10.0 20.0 12.0% FINAL Tamanna Rolon 07/05 CMP GFR Afric an Ameri can, estim ated ml/min /1.73m 2 53 Low FINAL Tamanna Rolon 07/05 CMP GFR non-A frica n Ameri can, estim ated ml/min /1.73m 2 44 Low FINAL Tamannanithin Rolon 07/05 CMP Album in g/dL 3.2 4.6 4.5 FINAL Tamanna Rolon 07/05 CMP Total prote in g/dL 6.0 8.0 7.4 FINAL Tamanna Rolon 07/05 CMP Globu samreen g/dL 2.0 3.7 2.9 FINAL Tamanna Rolon 07/05 CMP A/G ratio 1.0 2.0 1.6% FINAL Tamannanithin Rolon 07/05 CMP Bilir ubin, total mg/dL 0.2 1.2 0.4 FINAL Tamannanithin Rolon 07/05 CMP Alkal ine phosp hatas e IU/L 50.0 136.0 64 FINAL Tamanna Rolon 07/05 CMP ALT/S GPT IU/L 8.0 45.0 23 FINAL Tamanna Rolon 07/05 CMP AST/S GOT IU/L 2.0 40.0 36 Test Performed by:[facility] [address] - [facility] [place] [id number] e : FINAL Tamanna Rolon 07/05 [facility] other lab See optical fabricator d 07/13 Mis other lab See optical fabricator d 08/02 TSH panel TSH uIU/ml 0.32 5.0 2.38 Test performed at [facility] on a [employer] 2000 Immunoass ay Analyzer that uses an immunoenz ymometric sandwich assay for analysis. Patient testing should not be performed using multiple methodolo gies due to analytica l variation seen between test methodolo gies. FINAL Tamanna noel [facility], [address] [place] [address] [place] [address] [id number] 0 Phone: () - 08/02 CA 125 panel CA 125 UNITS/ ML 0.0 34.0 8.50 Test performed at [facility] on a [employer] 2000 Immunoass ay Analyzer that uses an immunoenz ymometric sandwich assay for analysis. Patient testing should not be performed using multiple methodolo gies due to analytica l variation seen between test methodolo gies. FINAL Tamanna noel [facility], [address] [place] [address] [place] [address] [id number] 0 Phone: () - 08/02 CBC w/ auto diff WBC K/uL 3.0 8.9 9.3 High FINAL Tamanna noel [facility], [address] [place] [id number] 0 Phone: () - 08/02 CBC w/ auto diff HGB g/dL 11.3 15.2 12.5 FINAL Tamanna noel [facility], [address] [place] [id number] 0 Phone: () - 08/02 CBC w/ auto diff PLT K/uL 113.0 364.0 165 FINAL Tamanna noel Oncology - [place] [facility], [address] [place] [id number] 0 Phone: () - 08/02 CBC w/ auto diff Avtar # (ANC) K/uL 1.6 6.6 5.7 FINAL Tamanna noel Oncology - [place] [facility], [address] [place] [id number] 0 Phone: () - 08/02 CBC w/ auto diff Avtar % % 43.0 74.0 61.0 FINAL Tamanna noel Oncology - [place] [facility], [address] [place] [id number] 0 Phone: () - 08/02 CBC w/ auto diff IG % % 0.0 0.5 0.6 High FINAL Tamanna noel [facility] - [place] [facility], [address] [place] [address] 200 [place] [id number] 0 Phone: () - 08/02 CBC w/ auto diff IG # K/uL 0.0 0.03 0.06 High FINAL Tamanna noel Oncology - [place] [facility], [address] [place] [address] 200 [place] [id number] 0 Phone: () - 08/02 CBC w/ auto diff LY % % 14.0 41.0 24.1 FINAL Tamanna noel [facility]cology - [place] [facility], [address] [place] [address] 200 [place] [id number] 0 Phone: () - 08/02 CBC w/ auto diff MO % % 6.0 15.0 8.4 FINAL Tamanna noel [facility]cology - [place] [facility], [address] [place] [address] 200 [place] [id number] 0 Phone: () - 08/02 CBC w/ auto diff EO % % 0.0 7.0 5.1 FINAL Tamanna noel [facility]cology - [place] [facility], [address] [place] [address] [address] [place] [id number] 0 Phone: () - 08/02 CBC w/ auto diff BA % % 0.0 2.0 0.8 FINAL Tamanna noel [facility]cology - [place] [facility], [address] [place] [address] [address] [place] [id number] 0 Phone: () - 08/02 CBC w/ auto diff LY # K/uL 0.4 3.6 2.2 FINAL Tamanna noel [facility] - [place] [facility], [address] 200 [place] [id number] 0 Phone: () - 08/02 CBC w/ auto diff MO # K/uL 0.2 1.3 0.8 FINAL [facility] [place] [facility], [address] [place] [address] [address] [place] [phone] 0 Phone: () - 08/02 CBC w/ auto diff EO # K/uL 0.0 0.6 0.5 FINAL [facility] [place] [facility], [address] [place] [address] [address] [place] [phone] 0 Phone: () - 08/02 CBC w/ auto diff BA # K/uL 0.0 0.2 0.1 FINAL [facility] [place] [facility], [address] [place] [address] [address] [place] [phone] 0 Phone: () - 08/02 CBC w/ auto diff NRBC % #/100W BC 0.0 0.2 0.0 FINAL [facility] [place] [facility], [address] [place] [address] [address] [place] [id number] 0 Phone: () - 08/02 CBC w/ auto diff RBC M/uL 3.9 5.1 3.55 Low FINAL Tamanna noel [facility] - [place] [facility], [address] [place] [address] [address] [place] [id number] 0 Phone: () - 08/02 CBC w/ auto diff HCT % 35.0 48.0 37.3 FINAL Tamanna noel Oncology - [place] [facility], [address] [place] [address] [address] [place] [id number] 0 Phone: () - 08/02 CBC w/ auto diff MCV fL 80.0 104.0 105.1 High FINAL Tamanna noel Oncology - [place] [facility], [address] [place] [address] [address] [place] [id number] 0 Phone: () - 08/02 CBC w/ auto diff MCH pg 26.0 35.0 35.2 High FINAL Tamanna noel Oncology - [place], [address] [place] [id number] 0 Phone: () - 08/02 CBC w/ auto diff MCHC g/dL 30.0 35.0 33.5 FINAL Tamanna noel Oncology - [place], [address] [place] [id number] 0 Phone: () - 08/02 CBC w/ auto diff MPV fL 9.5 13.4 9.6 FINAL Tamanna noel Oncology - [place] [facility], [address] [place] [id number] 0 Phone: () - 08/02 CBC w/ auto diff RDW % 11.4 16.1 13.00 FINAL Tamanna noel Oncology - [place], [address] [place] [id number] 0 Phone: () - 08/02 CMP Sodiu m mmol/L 135.0 145.0 132 Low FINAL Tamanna Rolon 08/02 CMP Potas sium mmol/L 3.5 5.0 4.6 FINAL Tamanna Rolon 08/02 CMP Chlor sathish mmol/L 98.0 110.0 96 Low FINAL Tamanna Rolon 08/02 CMP CO2 mmol/L 21.0 31.0 [...] FINAL Tamanna Rolon 08/02 CMP GFR non-A cooper n Bashir silver, estim ated ml/min /1.73m 2 55 Low [...] GOT IU/L 2.0 40.0 32 Test Performed by:[facility] [address] - [place], [place] [address]Vkhq e [phone] FINAL Tamanna Rolon 08/02 [facility] other lab See optical fabricator d 08/13 [facility] other lab See optical fabricator d 08/30 Folat e, serum ng/mL 3.0 16.0 Folate greater than 20 FINAL Tamanna noel Oncology [address] [place] [address] [id number] [phone] Phone: () - 08/30 Magne sium, mg/dL mg/dL 1.5 2.3 1.5 FINAL Tamanna noel Oncology [address] [id number] 0 Phone: () - 08/30 CBC w/ auto diff WBC K/uL 3.0 8.9 8.8 FINAL Tamanna noel [facility], [address] [place] [id number] 0 Phone: () - 08/30 CBC w/ auto diff HGB g/dL 11.3 15.2 12.3 FINAL Tamanna noel Oncology - [place], [address] [place] [address] [address] [place] [id number] 0 Phone: () - 08/30 CBC w/ auto diff PLT K/uL 113.0 364.0 161 FINAL Tamanna noel Oncology - [place], [address] [place] [address] [address] [place] [id number] 0 Phone: () - 08/30 CBC w/ auto diff Avtar # (ANC) K/uL 1.6 6.6 5.6 FINAL Tamanna noel Oncology - [place] [facility], [address] [place] [address] [address] [place] [id number] 0 Phone: () - 08/30 CBC w/ auto diff Avtar % % 43.0 74.0 62.9 FINAL Tamanna noel Oncology - [place], [address] [place] [address] [address] [place] [id number] 0 Phone: () - 08/30 CBC w/ auto diff IG % % 0.0 0.5 0.5 FINAL Tamanna noel Oncology - [place], [address] [place] [address] [address] [place] [id number] 0 Phone: () - 08/30 CBC w/ auto diff IG # K/uL 0.0 0.03 0.04 High FINAL Tamanna noel Oncology - [place], [address] [place] [address] [address] [place] [id number] 0 Phone: () - 08/30 CBC w/ auto diff LY % % 14.0 41.0 23.7 FINAL Tamanna noel Oncology - [place], [address] [place] [address] [address] [place] [id number] 0 Phone: () - 08/30 CBC w/ auto diff MO % % 6.0 15.0 7.2 FINAL Tamanna noel Oncology - [place], [address] [place] [address] [address] [place] [id number] 0 Phone: () - 08/30 CBC w/ auto diff EO % % 0.0 7.0 5.1 FINAL Tamanna noel Oncology - [place], [address] [place] [id number] 0 Phone: () - 08/30 CBC w/ auto diff BA % % 0.0 2.0 0.6 FINAL Tamanna noel Oncology - [place], [address] [place] [address] [address] [place] [id number] 0 Phone: () - 08/30 CBC w/ auto diff LY # K/uL 0.4 3.6 2.1 FINAL Tamanna noel Oncology - [place], [address] [place] [id number] 0 Phone: () - 08/30 CBC w/ auto diff MO # K/uL 0.2 1.3 0.6 FINAL Tamanna noel Oncology - [place], [facility] [address] [place] [id number] 0 Phone: () - 08/30 CBC w/ auto diff EO # K/uL 0.0 0.6 0.5 FINAL Tamanna noel Oncology - [place], [address] [place] [id number] 0 Phone: () - 08/30 CBC w/ auto diff BA # K/uL 0.0 0.2 0.1 FINAL Tamanna noel Oncology - [place], [address] [place] [address] [address] [place] [id number] 0 Phone: () - 08/30 CBC w/ auto diff NRBC % #/100W BC 0.0 0.2 0.0 FINAL Tamanna noel Oncology - [place], [address] [place] [id number] 0 Phone: () - 08/30 CBC w/ auto diff RBC M/uL 3.9 5.1 3.53 Low FINAL Tamanna noel Oncology - [place], [address] [place] [id number] 0 Phone: () - 08/30 CBC w/ auto diff HCT % 35.0 48.0 37.1 FINAL Tamanna noel Oncology - [facility], [address] [place] [address] [address] [place] [id number] 0 Phone: () - 08/30 CBC w/ auto diff MCV fL 80.0 104.0 105.1 High FINAL Tamanna noel [facility] - [facility], [address] [place] [address] [address] [place] [id number] 0 Phone: () - 08/30 CBC w/ auto diff MCH pg 26.0 35.0 34.8 FINAL Tamanna noel [facility] - [facility], [address] [place] [address] [address] [place] [id number] 0 Phone: () - 08/30 CBC w/ auto diff MCHC g/dL 30.0 35.0 33.2 FINAL Tamanna noel Oncology [facility], [address] [place] [address] [address] [place] [id number] 0 Phone: () - 08/30 CBC w/ auto diff MPV fL 9.5 13.4 9.7 FINAL Tamanna noel Oncology [facility], [address] [place] [address] [address] [place] [id number] 0 Phone: () - 08/30 CBC w/ auto diff RDW % 11.4 16.1 12.40 FINAL Tamanna noel Oncology [facility], [address] [place] [address] [address] [place] [id number] 0 Phone: () - 08/30 TSH panel TSH uIU/ml 0.32 5.0 2.25 Test performed at [facility] on a [employer] ay Analyzer that uses an immunoenz ymometric sandwich assay for analysis. Patient testing should not be performed using multiple methodolo charles due to analytica l variation seen between test methoddanelle soto. FINAL Tamanna noel Oncology - [place], [address] [facility] [address] [place] [id number] 0 Phone: () - 08/30 CA 125 panel CA 125 UNITS/ ML 0.0 34.0 12.90 Test performed at [facility] on a [employer] 2000 Immun[employer] ay Analyzer that uses an immunoenz ymometric sandwich assay for analysis. Patient testing should not be performed using multiple methoddanelle soto due to analytica l variation seen between test methoddanelle soto. FINAL Tamanna noel Oncology - [place], [address] [facility] [address] [facility] [id number] 0 Phone: () - 08/30 Retic ulocy te, absol [place] M/uL 0.02 0.08 0.08 FINAL [facility], [address] [facility] [id number] 0 Phone: () - 08/30 Retic ulocy te count % 0.4 1.6 2.19 High FINAL [facility], [address] [facility] [id number] 0 Phone: () - 08/30 Immat ure retic ulocy te fract ion, % % 0.0 16.5 20.20 High FINAL Tamanna noel [facility] - [facility], [address] [place] [address] [address] [facility] [id number] 0 Phone: () - 08/30 Retic ulocy te cellu lar hemog lobin pg 28.0 37.0 38.2 High FINAL Tam[facility], [address] [place] [address] [address] [facility] [place] [id number] 0 Phone: () - 08/30 CMP Sodiu m mmol/L 135.0 145.0 135 FINAL Tamanna Rolon 08/30 CMP Potas sium mmol/L 3.5 5.0 4.6 FINAL Tamannanithin Rolon 08/30 CMP Chlor sathish mmol/L 98.0 110.0 96 Low FINAL Tamanna Rolon 08/30 CMP CO2 mmol/L 21.0 31.0 32 High FINAL Tamanna Rolon 08/30 CMP Anion gap, mmol/ L 5.0 18.0 7.0% FINAL Tamanna Rolon 08/30 CMP Gluco se mg/dL 65.0 100.0 92 FINAL Tamanna Rolon 08/30 CMP Calci um mg/dL 8.5 10.5 9.1 FINAL Tamannanithin Rolon 08/30 CMP BUN mg/dL 8.0 25.0 10 FINAL Tamanna Rolon 08/30 CMP Creat inine mg/dL 0.57 1.11 0.95 FINAL Tamanna Rolon 08/30 CMP BUN/C reati nine ratio 10.0 20.0 11.0% FINAL Tamanna Rolon 08/30 CMP GFR Afric an Ameri can, estim ated ml/min /1.73m 2 >60 FINAL Tamanna Rolon 08/30 CMP GFR non-A frica n Ameri can, estim ated ml/min /1.73m 2 58 Low FINAL Tamanna Rolon 08/30 CMP Album in g/dL 3.2 4.6 4.1 FINAL Tamanna Rolon 08/30 CMP Total prote in g/dL 6.0 8.0 7.1 FINAL Tamanna Rolon 08/30 CMP Globu samreen g/dL 2.0 3.7 3.0 FINAL Tamanna Rolon 08/30 CMP A/G ratio 1.0 2.0 1.4% FINAL Tamanna Rolon 08/30 CMP Bilir ubin, total mg/dL 0.2 1.2 0.4 FINAL Tamanna Rolon 08/30 CMP Alkal ine phosp hatas e IU/L 50.0 136.0 63 FINAL Tamanna Rolon 08/30 CMP ALT/S GPT IU/L 8.0 45.0 18 FINAL Tamanna Rolon 08/30 CMP AST/S GOT IU/L 2.0 40.0 30 Test Performed by:[facility] [address] - [facility] [place] [id number] e : FINAL Tamanna Rolon 08/30 Rashida stero l mg/dL 100.0 199.0 146 FINAL Tamanna Rolon 08/30 Chemi strie s Fasti ng statu s RANDOM Test Performed by:[facility] [address] - [facility] [place], [place] [address]Caiu e [phone] FINAL Tamanna Rolon 08/30 Phosp horus mg/dL 2.3 4.7 2.6 Test Performed by:[facility] [address] - [place], [place] [address]Hucm e [phone] FINAL Tamanna Rolon 08/30 LDH U/L 120.0 246.0 184 FINAL Tamanna noel Oncology - [place], [address] [place] [address] [address] [facility] [id number] 0 Phone: () - 09/27 Magne sium, mg/dL mg/dL 1.5 2.3 1.4 Low FINAL Tamanna noel Oncology - [place], [address] [place] [address] [address] [facility] [id number] 0 Phone: () - 09/27 Retic ulocy te, absol [place] M/uL 0.02 0.08 0.09 High FINAL Tamanna noel Oncology - [facility], [address] [place] [id number] 0 Phone: () - 09/27 Retic ulocy te count % 0.4 1.6 2.55 High FINAL Tamanna noel Oncology - [facility], [address] [place] [address] [address] [place] [id number] 0 Phone: () - 09/27 Immat ure retic ulocy te fract ion, % % 0.0 16.5 26.30 High FINAL Tamanna noel Oncology - [facility], [address] [place] [id number] 0 Phone: () - 09/27 Retic ulocy te cellu lar hemog lobin pg 28.0 37.0 38.2 High FINAL Tamanna noel Oncology - [facility], [address] [place] [id number] 0 Phone: () - 09/27 CBC w/ auto diff WBC K/uL 3.0 8.9 10.3 High FINAL Tamanna noel Oncology - [facility], [address] [place] [id number] 0 Phone: () - 09/27 CBC w/ auto diff HGB g/dL 11.3 15.2 12.9 FINAL Tamanna noel Oncology - [place], [address] [place] [id number] 0 Phone: () - 09/27 CBC w/ auto diff PLT K/uL 113.0 364.0 190 FINAL Tamanna noel Oncology - [place], [address] [place] [id number] 0 Phone: () - 09/27 CBC w/ auto diff Avtar # (ANC) K/uL 1.6 6.6 6.7 High FINAL Tamanna noel Oncology - [place], [address] [place] [id number] 0 Phone: () - 09/27 CBC w/ auto diff Avtar % % 43.0 74.0 64.3 FINAL Tamanna noel Oncology - [place], [address] [place] [id number] 0 Phone: () - 09/27 CBC w/ auto diff IG % % 0.0 0.5 0.7 High FINAL Tamanna noel Oncology - [place], [address] [place] [id number] 0 Phone: () - 09/27 CBC w/ auto diff IG # K/uL 0.0 0.03 0.07 High FINAL Tamanna noel Oncology - [place], [address] [place] [id number] 0 Phone: () - 09/27 CBC w/ auto diff LY % % 14.0 41.0 23.6 FINAL Tamanna noel Oncology - [place], [address] [place] [id number] 0 Phone: () - 09/27 CBC w/ auto diff MO % % 6.0 15.0 6.8 FINAL Tamanna noel Oncology - [place], [address] [place] [id number] 0 Phone: () - 09/27 CBC w/ auto diff EO % % 0.0 7.0 4.1 FINAL Tamanna noel Oncology - [place], [address] [place] [id number] 0 Phone: () - 09/27 CBC w/ auto diff BA % % 0.0 2.0 0.5 FINAL Tamanna noel Oncology - [place], [address] [place] [address] [address] [place] [id number] 0 Phone: () - 09/27 CBC w/ auto diff LY # K/uL 0.4 3.6 2.4 FINAL Tamanna noel On[facility] - [place], [address] [place] [address] [address] [place] [id number] 0 Phone: () - 09/27 CBC w/ auto diff MO # K/uL 0.2 1.3 0.7 FINAL Tamanna noel Oncology - [place], [address] [place] [address] [address] [place] [id number] 0 Phone: () - 09/27 CBC w/ auto diff EO # K/uL 0.0 0.6 0.4 FINAL Tamanna noel Oncology - [place] [facility], [address] [place] [address] [address] [place] [id number] 0 Phone: () - 09/27 CBC w/ auto diff BA # K/uL 0.0 0.2 0.1 FINAL Tamanna noel Oncology - [place] [facility], [address] [place] [address] [address] [place] [id number] 0 Phone: () - 09/27 CBC w/ auto diff NRBC % #/100W BC 0.0 0.2 0.0 FINAL Tamanna noel Oncology - [place], [address] [place] [address] [address] [place] [id number] 0 Phone: () - 09/27 CBC w/ auto diff RBC M/uL 3.9 5.1 3.70 Low FINAL Tamanna noel Oncology - [place] [facility], [address] [place] [address] [address] [place] [id number] 0 Phone: () - 09/27 CBC w/ auto diff HCT % 35.0 48.0 38.7 FINAL Tamanna noel Oncology - [place], [address] [place] [address] [address] [place] [id number] 0 Phone: () - 09/27 CBC w/ auto diff MCV fL 80.0 104.0 104.6 High FINAL Tamanna noel Oncology [facility], [address] [place] [address] [address] [place] [id number] 0 Phone: () - 09/27 CBC w/ auto diff MCH pg 26.0 35.0 34.9 FINAL Tamanna noel [facility], [address] [place] [address] [address] [place] [id number] 0 Phone: () - 09/27 CBC w/ auto diff MCHC g/dL 30.0 35.0 33.3 FINAL Tamanna noel [facility], [address] [place] [address] [address] [place] [id number] 0 Phone: () - 09/27 CBC w/ auto diff MPV fL 9.5 13.4 9.1 Low FINAL Tamanna noel [facility], [address] [place] [address] 200 [facility] [place] [id number] 0 Phone: () - 09/27 CBC w/ auto diff RDW % 11.4 16.1 12.40 FINAL Tamanna noel [facility], [address] [place] [address] [address] [place] [id number] 0 Phone: () - 09/27 TSH uIU/ml 0.32 5.0 2.56 Test performed at [facility] on a [employer] 2000 Immuno[employer] ay Analyzer that uses an immunoenz ymometric sandwich assay for analysis. Patient testing should not be performed using multiple methodolo gies due to analytica l variation seen between test methodolo gies. FINAL Tamanna noel [address] [facility] [id number] 0 Phone: () - 09/27 CA 125 UNITS/ ML 0.0 34.0 10.40 Test performed at [facility] on a [employer] 2000 Immun[employer] ay Analyzer that uses an immunoenz ymometric sandwich assay for analysis. Patient testing should not be performed using multiple methodolo gies due to analytica l variation seen between test methodolo gies. FINAL Tamanna noel [address] [facility] [id number] 0 Phone: () - 09/27 Phosp horus mg/dL 2.3 4.7 2.8 Test Performed by:[facility] [address] - [facility] [address]Wjnc e : FINAL Tamannanithin Rolon 09/27 Rashida stero l mg/dL 100.0 199.0 148 FINAL Tamanna Gonzales 09/27 Chemi strie s Fasti ng statu s RANDOM Test Performed by:[facility] [address] - [facility] [address]Awrq e : FINAL Tamanna Gonzales 09/27 CMP Sodiu m mmol/L 135.0 145.0 131 Low FINAL Tamanna Gonzales 09/27 CMP Potas sium mmol/L 3.5 5.0 4.6 FINAL Tamanna Gonzales 09/27 CMP Chlor sathish mmol/L 98.0 110.0 92 Low FINAL Tamanna Gonzales 09/27 CMP CO2 mmol/L 21.0 31.0 29 FINAL Tamanna Gonzales 09/27 CMP Anion gap, mmol/ L 5.0 18.0 10.0% FINAL Tamanna Gonzales 09/27 CMP Gluco se mg/dL 65.0 100.0 96 FINAL Tamanna Gonzales 09/27 CMP Calci um mg/dL 8.5 10.5 9.0 FINAL Tamanna Gonzales 09/27 CMP BUN mg/dL 8.0 25.0 11 FINAL [facility] 09/27 CMP Creat inine mg/dL 0.57 1.11 1.09 FINAL [facility] 09/27 CMP BUN/C reati nine ratio 10.0 20.0 10.0% FINAL [facility] 09/27 CMP GFR Afric an Ameri can, estim ated ml/min /1.73m 2 60 Low [facility] CMP GFR non-A frica n Ameri can, estim ated ml/min /1.73m 2 50 Low FINAL Tamannanithin Rolon 09/27 CMP Album in g/dL 3.2 4.6 4.0 FINAL Tamanna Rolon 09/27 CMP Total prote in g/dL 6.0 8.0 7.0 FINAL Tamanna Rolon 09/27 CMP Globu samreen g/dL 2.0 3.7 3.0 FINAL Tamannanithin Rolon 09/27 CMP A/G ratio 1.0 2.0 1.3% FINAL Tamannanithin Rolon 09/27 CMP Bilir ubin, total mg/dL 0.2 1.2 0.4 FINAL Tamannanithin Rolon 09/27 CMP Alkal ine phosp hatas e IU/L 50.0 136.0 70 FINAL Tamannanithin Rolon 09/27 CMP ALT/S GPT IU/L 8.0 45.0 16 FINAL Tamanna Kenny 09/27 CMP AST/S GOT IU/L 2.0 40.0 25 Test Performed by:[facility] [address] - [place], [place] [address]Xule e : FINAL Tamanna Rolon 09/27 LDH U/L 120.0 246.0 176 FINAL Tamanna noel On[facility] [address] [id number] 0 Phone: () - 09/27 Folat e, serum ng/mL 3.0 16.0 17.4 High FINAL Tamanna noel On[facility] [address] [id number] 0 Phone: () - 10/25 TSH uIU/ml 0.32 5.0 2.28 Test performed at [facility] on a [employer] ay Analyzer that uses an immunoenz ymometric sandwich assay for analysis. Patient testing should not be performed using multiple methoddanelle soto due to analytica l variation seen between test methoddanelle soto. FINAL Tamanna noel On[facility] [address] [id number] 0 Phone: () - 10/25 Retic ulocy te, absol [place] M/uL 0.02 0.08 0.08 FINAL Tamanna noel Oncology [facility], [address] [place] [id number] 0 Phone: () - 10/25 Retic ulocy te count % 0.4 1.6 2.29 High FINAL Tamanna noel [facility], [address] [place] [id number] 0 Phone: () - 10/25 Immat ure retic ulocy te fract ion, % % 0.0 16.5 18.50 High FINAL Tamanna noel [facility], [address] [place] [address] 200 [place] [id number] 0 Phone: () - 10/25 Retic ulocy te cellu lar hemog lobin pg 28.0 37.0 38.2 High FINAL Tamanna noel [facility], [address] [place] [address] 200 [place] [id number] 0 Phone: () - 10/25 CA 125 panel CA 125 UNITS/ ML 0.0 34.0 6.90 Test performed at [facility] on a [employer] Immun[employer] ay Analyzer that uses an immunoenz ymometric sandwich assay for analysis. Patient testing should not be performed using multiple methodolo gies due to analytica l variation seen between test methodolo ginorris. FINAL Tamanna noel On[facility] [address] [place] [address] [id number] [phone] Phone: () - 10/25 Magne sium, mg/dL mg/dL 1.5 2.3 1.9 FINAL Tamanna noel On[facility] [address] [facility] [id number] 0 Phone: () - 10/25 CBC w/ auto diff WBC K/uL 3.0 8.9 9.3 High FINAL Tamanna noel [facility], [address] [place] [id number] 0 Phone: () - 10/25 CBC w/ auto diff HGB g/dL 11.3 15.2 12.9 FINAL Tamanna noel On[facility] - [place], [address] [place] [address] [address] [place] [id number] 0 Phone: () - 10/25 CBC w/ auto diff PLT K/uL 113.0 364.0 162 FINAL Tamanna noel Oncology - [place], [address] [place] [address] [address] [place] [id number] 0 Phone: () - 10/25 CBC w/ auto diff Avtar # (ANC) K/uL 1.6 6.6 6.1 FINAL Tamanna noel [facility] - [place], [address] [place] [address] [address] [place] [id number] 0 Phone: () - 10/25 CBC w/ auto diff Avtar % % 43.0 74.0 64.9 FINAL Tamanna noel Oncology - [place], [address] [place] [address] [address] [place] [id number] 0 Phone: () - 10/25 CBC w/ auto diff IG % % 0.0 0.5 0.5 FINAL Tamanna noel [facility] - [place], [address] [place] [address] [address] [place] [id number] 0 Phone: () - 10/25 CBC w/ auto diff IG # K/uL 0.0 0.03 0.05 High FINAL Tamanna noel [facility] - [place], [address] [place] [address] [address] [place] [id number] 0 Phone: () - 10/25 CBC w/ auto diff LY % % 14.0 41.0 22.9 FINAL Tamanna noel [facility] - [place], [address] [place] [address] [address] [place] [id number] 0 Phone: () - 10/25 CBC w/ auto diff MO % % 6.0 15.0 7.1 FINAL Tamanna noel [facility] - [place], [address] [place] [address] [address] [place] [id number] 0 Phone: () - 10/25 CBC w/ auto diff EO % % 0.0 7.0 4.2 FINAL Tamanna noel [facility] - [place], [address] [place] [id number] 0 Phone: () - 10/25 CBC w/ auto diff BA % % 0.0 2.0 0.4 FINAL Tamanna noel [facility] - [place], [address] [place] [id number] 0 Phone: () - 10/25 CBC w/ auto diff LY # K/uL 0.4 3.6 2.1 FINAL Tamanna noel [facility] - [place], [address] [place] [id number] 0 Phone: () - 10/25 CBC w/ auto diff MO # K/uL 0.2 1.3 0.7 FINAL Tamanna noel [facility] - [place], [address] [place] [address] [address] [place] [id number] 0 Phone: () - 10/25 CBC w/ auto diff EO # K/uL 0.0 0.6 0.4 FINAL Tamanna noel [facility] - [place], [address] [place] [address] [address] [place] [id number] 0 Phone: () - 10/25 CBC w/ auto diff BA # K/uL 0.0 0.2 0.0 FINAL Tamanna noel [facility] - [place], [address] [place] [address] [address] [place] [id number] 0 Phone: () - 10/25 CBC w/ auto diff NRBC % #/100W BC 0.0 0.2 0.0 FINAL Tamanna noel [facility] - [place], [address] [place] [address] [address] [place] [id number] 0 Phone: () - 10/25 CBC w/ auto diff RBC M/uL 3.9 5.1 3.70 Low FINAL Tamanna noel [facility] - [place], [address] [place] [address] [address] [place] [id number] 0 Phone: () - 10/25 CBC w/ auto diff HCT % 35.0 48.0 39.0 FINAL Tamanna noel On[facility] - [place], [address] [place] [id number] 0 Phone: () - 10/25 CBC w/ auto diff MCV fL 80.0 104.0 105.4 High FINAL Tamanna noel [facility] - [place], [address] [place] [address] 200 [place] [id number] 0 Phone: () - 10/25 CBC w/ auto diff MCH pg 26.0 35.0 34.9 FINAL Tamanna noel [facility] - [place], [address] [place] [address] [address] [place] [id number] 0 Phone: () - 10/25 CBC w/ auto diff MCHC g/dL 30.0 35.0 33.1 FINAL Tamanna noel [facility] - [place], [address] [place] [address] 200 [place] [id number] 0 Phone: () - 10/25 CBC w/ auto diff MPV fL 9.5 13.4 9.8 FINAL Tamanna noel [facility] - [place], [address] [place] [address] 200 [place] [id number] 0 Phone: () - 10/25 CBC w/ auto diff RDW % 11.4 16.1 13.10 FINAL Tamanna noel [facility] - [place] [facility], [address] [place] [address] 200 [place] [id number] 0 Phone: () - 10/25 CMP Sodiu m mmol/L 135.0 145.0 132 Low FINAL Tamanna Rolon 10/25 CMP Potas sium mmol/L 3.5 5.0 4.7 FINAL [facility] 10/25 CMP Chlor sathish mmol/L 98.0 110.0 95 Low FINAL [facility] 10/25 CMP CO2 mmol/L 21.0 31.0 26 FINAL [facility] 10/25 CMP Anion gap, mmol/ L 5.0 18.0 11.0% FINAL [facility] 10/25 CMP Gluco se mg/dL 65.0 100.0 100 FINAL [facility] 10/25 CMP Calci um mg/dL 8.5 10.5 8.5 FINAL [facility] 10/25 CMP BUN mg/dL 8.0 25.0 23 FINAL [facility] 10/25 CMP Creat inine mg/dL 0.57 1.11 1.15 High FINAL [facility] 10/25 CMP BUN/C reati nine ratio 10.0 20.0 20.0% FINAL [facility] 10/25 CMP GFR Afric an Ameri can, estim ated ml/min /1.73m 2 56 Low FINAL [facility] 10/25 CMP GFR non-A frica n Ameri can, estim ated ml/min /1.73m 2 47 Low FINAL [facility] 10/25 CMP Album in g/dL 3.2 4.6 4.0 FINAL [facility] 10/25 CMP Total prote in g/dL 6.0 8.0 6.8 [facility]AL [facility] [facility] CMP Globu samreen g/dL 2.0 3.7 2.8 FINAL [facility] 10/25 CMP A/G ratio 1.0 2.0 1.4% FINAL [facility] 10/25 CMP Bilir ubin, total mg/dL 0.2 1.2 0.6 FINAL [facility] 10/25 CMP Alkal ine phosp hatas e IU/L 50.0 136.0 74 FINAL [facility] 10/25 CMP ALT/S GPT IU/L 8.0 45.0 17 FINAL [facility] 10/25 CMP AST/S GOT IU/L 2.0 40.0 29 Test Performed by:[facility] [address] [facility] [place] [address]Gyqm e : FINAL [facility] 10/25 Phosp horus mg/dL 2.3 4.7 3.3 Test Performed by:[facility] [address] [place], [place] [address]Qmgo e : FINAL [facility] 10/25 Rashida stero l mg/dL 100.0 199.0 142 FINAL Tamanna Rolon 10/25 Chemi strie s Fasti ng statu s RANDOM Test Performed by:[facility] [address] - [facility] [address]Ybpc e : FINAL Tamanna Rolon 10/25 Folat e, serum ng/mL 3.0 16.0 Folate greater than 20 FINAL Tamanna noel [address] [id number] [phone] Phone: () - 10/25 LDH U/L 120.0 246.0 185 FINAL Tamanna noel [address] [id number] 0 Phone: () - 11/22 CMP Album in g/dL 3.2 5.2 4.5 FINAL Tamanna noel [address] [id number] 0 Phone: () - 11/22 CMP Alkal ine phosp hatas e U/L 46.0 116.0 67 FINAL Tamanna noel [address] [id number] 0 Phone: () - 11/22 CMP ALT/S GPT U/L 7.0 40.0 13 FINAL Tamanna noel [address] [id number] 0 Phone: () - 11/22 CMP AST/S GOT U/L 13.0 40.0 20 FINAL Tamanna noel [address] [id number] 0 Phone: () - 11/22 CMP BUN mg/dL 9.0 23.0 20 FINAL Tamanna noel [address] [id number] 0 Phone: () - 11/22 CMP Calci um mg/dL 8.7 10.4 9.1 FINAL Tamanna noel [facility] [address] [id number] 0 Phone: () - 11/22 CMP Chlor sathish mmol/L 96.0 114.0 96 FINAL Tamanna noel [address] [id number] 0 Phone: () - 11/22 CMP CO2 mmol/L 20.0 31.0 27 FINAL Tamanna Peters [address] [id number] 0 Phone: () - 11/22 CMP Creat inine mg/dL 0.5 1.2 1.06 FINAL Tamanna noel [address] [id number] 0 Phone: () - 11/22 CMP GFR estim ate ml/min /1.73m ^2 52.8 Low GFR is calculate d using the CKD-EPI equation. FINAL Tamanna Peters [address] [id number] 0 Phone: () - 11/22 CMP Gluco se mg/dL 73.0 126.0 94 FINAL Tamanna noel [address] [id number] 0 Phone: () - 11/22 CMP Potas sium mmol/L 3.5 5.1 5.0 [facility] Tamanna noel [address] [id number] 0 Phone: () - 11/22 CMP Sodiu m mmol/L 136.0 145.0 130 Low FINAL Tamanna noel [address] [id number] 0 Phone: () - 11/22 CMP Bilir ubin, total mg/dL 0.3 1.2 0.5 [facility] Tamanna noel [address] [id number] 0 Phone: () - 11/22 CMP Total prote in g/dL 5.7 8.2 6.7 FINAL Tamanna noel Oncology - [place], [address] [place] [address] [address] [facility] [id number] 0 Phone: () - 11/22 CA 125 panel CA 125 UNITS/ ML 0.0 34.0 8.10 Test performed at [facility] on a [employer] Immunoass ay Analyzer that uses an immunoenz ymometric sandwich assay for analysis. Patient testing should not be performed using multiple methoddanelle soto due to analytica l variation seen between test methoddanelle soto. FINAL Tamanna noel Oncology - [place], [address] [place] [address] [address] [facility] [id number] 0 Phone: () - 11/22 CBC w/ auto diff LY # K/uL 0.4 3.6 1.8 FINAL Tamanna noel Oncology - [facility], [address] [place] [address] 200 [facility] [id number] 0 Phone: () - 11/22 CBC w/ auto diff MO # K/uL 0.2 1.3 0.7 FINAL [facility], [address] [place] [address] 200 [facility] [place] [id number] 0 Phone: () - 11/22 CBC w/ auto diff EO # K/uL 0.0 0.6 0.4 FINAL Tam[facility], [address] [place] [address] 200 [facility] [place] [id number] 0 Phone: () - 11/22 CBC w/ auto diff BA # K/uL 0.0 0.2 0.1 FINAL Tamanna noel [facility] - [place] [facility], [address] [place] [address] 200 [facility] [place] [id number] 0 Phone: () - 11/22 CBC w/ auto diff NRBC % #/100W BC 0.0 0.2 0.0 FINAL Tamanna noel [facility], [address] [place] [address] 200 [facility] [place] [id number] 0 Phone: () - 11/22 CBC w/ auto diff RBC M/uL 3.9 5.1 4.15 FINAL Tamanna noel [facility] - [place] [facility], [address] [place] [address] 200 [place] [id number] 0 Phone: () - 11/22 CBC w/ auto diff HCT % 35.0 48.0 42.3 FINAL Tamanna noel Oncology - [place], [address] [place] [address] 200 [place] [id number] 0 Phone: () - 11/22 CBC w/ auto diff MCV fL 80.0 104.0 101.9 FINAL Tamanna noel Oncology - [place], [address] [place] [address] 200 [place] [id number] 0 Phone: () - 11/22 CBC w/ auto diff MCH pg 26.0 35.0 33.5 FINAL Tamanna noel On[facility] - [place] [facility], [address] [place] [address] 200 [place] [id number] 0 Phone: () - 11/22 CBC w/ auto diff MCHC g/dL 30.0 35.0 32.9 FINAL Tamanna noel [facility]cology - [place] [facility], [address] [place] [address] 200 [place] [id number] 0 Phone: () - 11/22 CBC w/ auto diff MPV fL 9.5 13.4 9.3 Low FINAL Tamanna noel [facility]cology - [place] [facility], [address] [place] [address] 200 [place] [id number] 0 Phone: () - 11/22 CBC w/ auto diff RDW % 11.4 16.1 12.70 FINAL Tamanna noel Oncology - [place] [facility], [address] [place] [address] 200 [place] [id number] 0 Phone: () - 11/22 CBC w/ auto diff WBC K/uL 3.0 8.9 8.8 FINAL Tamanna noel Oncology - [place], [address] [place] [address] 200 [place] [id number] 0 Phone: () - 11/22 CBC w/ auto diff HGB g/dL 11.3 15.2 13.9 FINAL Tamanna noel Oncology - [place] [facility], [address] [place] [address] 200 [place] [id number] 0 Phone: () - 11/22 CBC w/ auto diff PLT K/uL 113.0 364.0 197 FINAL Tamanna noel Oncology - [place], [address] [place] [id number] 0 Phone: () - 11/22 CBC w/ auto diff Avtar # (ANC) K/uL 1.6 6.6 5.8 FINAL Tamanna noel Oncology - [place], [address] [place] [id number] 0 Phone: () - 11/22 CBC w/ auto diff Avtar % % 43.0 74.0 66.0 FINAL Tamanna noel Oncology - [place], [address] [place] [address] [address] [place] [id number] 0 Phone: () - 11/22 CBC w/ auto diff IG % % 0.0 0.5 0.5 FINAL Tamanna noel Oncology - [place], [address] [place] [address] [address] [place] [id number] 0 Phone: () - 11/22 CBC w/ auto diff IG # K/uL 0.0 0.03 0.04 High FINAL Tamanna noel Oncology - [place], [address] [place] [id number] 0 Phone: () - 11/22 CBC w/ auto diff LY % % 14.0 41.0 20.2 FINAL Tamanna noel Oncology - [place], [address] [place] [id number] 0 Phone: () - 11/22 CBC w/ auto diff MO % % 6.0 15.0 7.8 FINAL Tamanna noel Oncology - [place], [address] [place] [id number] 0 Phone: () - 11/22 CBC w/ auto diff EO % % 0.0 7.0 4.9 FINAL Tamanna noel Oncology - [place], [address] [place] [id number] 0 Phone: () - 11/22 CBC w/ auto diff BA % % 0.0 2.0 0.6 FINAL Tamanna noel Oncology - [place], [address] [place] [id number] 0 Phone: () - 11/22 [facility] other lab See optical fabricator d 11/22 [facility] other lab See optical fabricator d 11/22 [facility] See optical fabricator d 02/11 CBC w/ auto diff WBC K/uL 3.0 8.9 9.2 High FINAL Tamanna noel Oncology - [place], [address] [place] [id number] 0 Phone: () - 02/11 CBC w/ auto diff HGB g/dL 11.3 15.2 13.3 FINAL Tamanna noel Oncology - [place], [address] [place] [id number] 0 Phone: () - 02/11 CBC w/ auto diff PLT K/uL 113.0 364.0 267 FINAL Tamanna noel Oncology - [place], [address] [place] [id number] 0 Phone: () - 02/11 CBC w/ auto diff Avtar # (ANC) K/uL 1.6 6.6 6.1 FINAL Tamanna noel Oncology - [place], [address] [place] [id number] 0 Phone: () - 02/11 CBC w/ auto diff Avtar % % 43.0 74.0 66.8 FINAL Tamanna noel Oncology - [place], [address] [place] [id number] 0 Phone: () - 02/11 CBC w/ auto diff IG % % 0.0 0.5 1.9 High FINAL Tamanna noel Oncology - [place], [address] [place] [id number] 0 Phone: () - 02/11 CBC w/ auto diff IG # K/uL 0.0 0.03 0.17 High FINAL Tamanna noel Oncology - [place], [address] [facility] [place] [id number] 0 Phone: () - 02/11 CBC w/ auto diff LY % % 14.0 41.0 19.2 FINAL Tamanna noel Oncology - [place], [address] [place] [address] 200 [place] [id number] 0 Phone: () - 02/11 CBC w/ auto diff MO % % 6.0 15.0 9.2 FINAL Tamanna noel Oncology - [place], [address] [place] [address] 200 [facility] [place] [id number] 0 Phone: () - 02/11 CBC w/ auto diff EO % % 0.0 7.0 2.5 FINAL Tamanna noel Oncology - [place], [address] [place] [address] 200 [facility] [place] [id number] 0 Phone: () - 02/11 CBC w/ auto diff BA % % 0.0 2.0 0.4 FINAL Tamanna noel Oncology - [place], [address] [place] [address] 200 [facility] [place] [id number] 0 Phone: () - 02/11 CBC w/ auto diff LY # K/uL 0.4 3.6 1.8 FINAL Tamanna noel Oncology - [place], [address] [place] [address] 200 [facility] [place] [id number] 0 Phone: () - 02/11 CBC w/ auto diff MO # K/uL 0.2 1.3 0.8 FINAL Tamanna noel Oncology - [place], [address] [place] [address] 200 [facility] [place] [id number] 0 Phone: () - 02/11 CBC w/ auto diff EO # K/uL 0.0 0.6 0.2 FINAL Tamanna noel Oncology - [place], [address] [place] [address] 200 [place] [id number] 0 Phone: () - 02/11 CBC w/ auto diff BA # K/uL 0.0 0.2 0.0 FINAL Tamanna noel Oncology - [place], [address] [place] [address] 200 [facility] [id number] 0 Phone: () - 02/11 CBC w/ auto diff NRBC % #/100W BC 0.0 0.2 0.2 FINAL Tamanna noel Oncology - [place] [facility], [address] [place] [address] 200 [facility] [place] [id number] 0 Phone: () - 02/11 CBC w/ auto diff RBC M/uL 3.9 5.1 4.09 FINAL Tamanna noel Oncology - [place] [facility], [address] [place] [address] 200 [facility] [place] [id number] 0 Phone: () - 02/11 CBC w/ auto diff HCT % 35.0 48.0 40.6 FINAL Tamanna noel Oncology - [place] [facility], [address] [place] [address] 200 [facility] [place] [id number] 0 Phone: () - 02/11 CBC w/ auto diff MCV fL 80.0 104.0 99.3 FINAL Tamanna noel Oncology - [place] [facility], [address] [place] [address] 200 [facility] [place] [id number] 0 Phone: () - 02/11 CBC w/ auto diff MCH pg 26.0 35.0 32.5 FINAL Tamanna noel Oncology - [place] [facility], [address] [place] [address] 200 [facility] [place] [id number] 0 Phone: () - 02/11 CBC w/ auto diff MCHC g/dL 30.0 35.0 32.8 FINAL Tamanna noel Oncology - [place] [facility], [address] [place] [address] 200 [facility] [place] [id number] 0 Phone: () - 02/11 CBC w/ auto diff MPV fL 9.5 13.4 8.6 Low FINAL Tamanna noel Oncology - [place] [facility], [address] [place] [address] 200 [place] [id number] 0 Phone: () - 02/11 CBC w/ auto diff RDW % 11.4 16.1 14.00 FINAL Tamanna noel Oncology - [place] [facility], [address] [place] [address] 200 [facility] [place] [id number] 0 Phone: () - 02/11 CMP Album in g/dL 3.2 5.2 4.3 FINAL Tamanna noel [address] [id number] 0 Phone: () - 02/11 CMP Alkal ine phosp hatas e U/L 46.0 116.0 53 FINAL Tamanna noel [address] [id number] 0 Phone: () - 02/11 CMP ALT/S GPT U/L 7.0 40.0 14 FINAL Tamanna noel [address] [id number] 0 Phone: () - 02/11 CMP AST/S GOT U/L 13.0 40.0 22 FINAL Tamanna noel [address] [id number] 0 Phone: () - 02/11 CMP BUN mg/dL 9.0 23.0 7 Low FINAL Tamanna Peters [address] [id number] 0 Phone: () - 02/11 CMP Calci um mg/dL 8.7 10.4 9.6 [facility] Tamanna Peters [address] [id number] 0 Phone: () - 02/11 CMP Chlor sathish mmol/L 96.0 114.0 91 Low FINAL Tamanna Peters [address] [id number] 0 Phone: () - 02/11 CMP CO2 mmol/L 20.0 31.0 26 FINAL Tamanna noel [address] [id number] 0 Phone: () - 02/11 CMP Creat inine mg/dL 0.5 1.2 1.03 FINAL Tamanna Mcginnis bert [address] [id number] 0 Phone: () - 06/04 /2021 CMP GFR estim ate ml/min /1.73m ^2 54.5 Low GFR is calculate d using the CKD-EPI equation. FINAL Tamanna Mcginnis[address] [id number] 0 Phone: () - 02/11 CMP Gluco se mg/dL 73.0 126.0 97 FINAL Tamannanithin Rolon [address] [id number] 0 Phone: () - 02/11 CMP Potas sium mmol/L 3.5 5.1 4.5 FINAL Tamanna Kenny [address] [id number] 0 Phone: () - 02/11 CMP Sodiu m mmol/L 136.0 145.0 129 Low FINAL Tamannanithin Mcginnis[address] [id number] 0 Phone: () - 02/11 CMP Bilir ubin, total mg/dL 0.3 1.2 0.4 [facility] [address] [id number] 0 Phone: () - 02/11 CMP Total prote in g/dL 5.7 8.2 6.6 [facility] Mcginnis[address] [id number] 0 Phone: () - 02/11 CA 125 panel CA 125 UNITS/ ML 0.0 34.0 8.70 Test performed at [facility] on a [employer] Immunoass ay Analyzer that uses an immunoenz ymometric sandwich assay for analysis. Patient testing should not be performed using multiple hallie soto due to analytica l variation seen between test hallie soto. FINAL Tamannanithin Mcginnis[address] [id number] 0 Phone: () - 02/11 iSTAT creat inine panel Creat inine , iSTAT mg/dl 0.6 1.3 1.3 [facility], [address] [place] [id number] 0 Phone: () - 02/11 Aldo mulligan inine panel GFR estim ate ml/min /1.73m ^2 41.2 Low GFR is calculate d using the CKD-EPI equation. FINAL Tamanna Peters a Oncology - [place], [address] [place] [address] [address] [place] [id number] 0 Phone: () - 02/11 [facility] other lab See optical fabricator d 05/23 CBC w/ auto diff WBC K/uL 3.0 8.9 8.9 FINAL Harper noel Oncology - [place], [address] [place] [address] [address] [place] [id number] 0 Phone: () - 05/23 CBC w/ auto diff HGB g/dL 11.3 15.2 15.7 High FINAL Harper noel Oncology - [place], [address] [place] [address] [address] [place] [id number] 0 Phone: () - 05/23 CBC w/ auto diff PLT K/uL 113.0 364.0 220 FINAL Harper noel Oncology - [place], [address] [place] [address] [address] [place] [id number] 0 Phone: () - 05/23 CBC w/ auto diff Avtar # (ANC) K/uL 1.6 6.6 5.5 FINAL Harper noel Oncology - [place], [address] [place] [address] [address] [place] [id number] 0 Phone: () - 05/23 CBC w/ auto diff Avtar % % 43.0 74.0 62.5 FINAL Harper noel Oncology - [place], [address] [place] [address] [address] [place] [id number] 0 Phone: () - 05/23 CBC w/ auto diff IG % % 0.0 0.5 0.5 FINAL Harper Mcginnisot a Oncology - [place], [address] [place] [address] [address] [place] [id number] 0 Phone: () - 05/23 CBC w/ auto diff IG # K/uL 0.0 0.03 0.04 High FINAL Harper Mcginnisot a Oncology - [place], [address] [place] [address] [address] [place] [id number] 0 Phone: () - 05/23 CBC w/ auto diff LY % % 14.0 41.0 22.5 FINAL Harpre Peters a Oncology - [place], [address] [place] [address] [address] [place] [id number] 0 Phone: () - 05/23 CBC w/ auto diff MO % % 6.0 15.0 8.0 FINAL Harper Mcginnisot a Oncology - [place], [address] [place] [address] [address] [place] [id number] 0 Phone: () - 05/23 CBC w/ auto diff EO % % 0.0 7.0 5.9 FINAL Harper Mcginnisot a Oncology - [place], [address] [place] [address] [address] [place] [id number] 0 Phone: () - 05/23 CBC w/ auto diff BA % % 0.0 2.0 0.6 FINAL Harper Mcginnisot a Oncology - [place], [address] [place] [address] [address] [place] [id number] 0 Phone: () - 05/23 CBC w/ auto diff LY # K/uL 0.4 3.6 2.0 FINAL Harper Peters a Oncology - [place], [address] [place] [address] [address] [place] [id number] 0 Phone: () - 05/23 CBC w/ auto diff MO # K/uL 0.2 1.3 0.7 FINAL Harper Mcginnisot a Oncology - [place], [address] [place] [address] [address] [place] [id number] 0 Phone: () - 05/23 CBC w/ auto diff EO # K/uL 0.0 0.6 0.5 FINAL Harper Mcginnisot a Oncology - [place], [address] [place] [address] [address] [place] [id number] 0 Phone: () - 05/23 CBC w/ auto diff BA # K/uL 0.0 0.2 0.1 FINAL Harper noel Oncology - [place], [address] [place] [address] [address] [place] [id number] 0 Phone: () - 05/23 CBC w/ auto diff NRBC % #/100W BC 0.0 0.2 0.0 FINAL Harper noel Oncology - [place] [facility], [address] [place] [address] [address] [place] [id number] 0 Phone: () - 05/23 CBC w/ auto diff RBC M/uL 3.9 5.1 4.85 FINAL Harper noel Oncology - [place] [facility], [address] [place] [address] [address] [place] [id number] 0 Phone: () - 05/23 CBC w/ auto diff HCT % 35.0 48.0 47.1 FINAL Harper noel Oncology - [place] [facility], [address] [place] [address] [address] [place] [id number] 0 Phone: () - 05/23 CBC w/ auto diff MCV fL 80.0 104.0 97.1 FINAL Harper noel Oncology - [place] [facility], [address] [place] [address] [address] [place] [id number] 0 Phone: () - 05/23 CBC w/ auto diff MCH pg 26.0 35.0 32.4 FINAL Harper noel Oncology - [place] [facility], [address] [place] [address] [address] [place] [id number] 0 Phone: () - 05/23 CBC w/ auto diff MCHC g/dL 30.0 35.0 33.3 FINAL Harper noel Oncology - [place], [address] [place] [address] [address] [place] [id number] 0 Phone: () - 05/23 CBC w/ auto diff MPV fL 9.5 13.4 9.1 Low FINAL Harper noel Oncology - [place], [address] [place] [address] [address] [place] [id number] 0 Phone: () - 05/23 CBC w/ auto diff RDW % 11.4 16.1 13.00 FINAL Harper noel Oncology - [place], [address] [place] [address] [address] [facility] [id number] 0 Phone: () - 05/23 CMP Album in g/dL 3.2 5.2 4.6 FINAL [place] [address] [id number] 0 Phone: () - 05/23 CMP Alkal ine phosp hatas e U/L 46.0 116.0 58 FINAL Harper Wheeler [place] [address] [id number] 0 Phone: () - 05/23 CMP ALT/S GPT U/L 7.0 40.0 11 FINAL Harper Wheeler [place] [address] [id number] 0 Phone: () - 05/23 CMP AST/S GOT U/L 13.0 40.0 23 FINAL Harper Wheeler [place] [address] [id number] 0 Phone: () - 05/23 CMP BUN mg/dL 9.0 23.0 15 FINAL Harper Wheeler [place] [address] [id number] 0 Phone: () - 05/23 CMP Calci um mg/dL 8.7 10.4 10.1 FINAL Harper Wheeler [place] [address] [id number] 0 Phone: () - 05/23 CMP Chlor sathish mmol/L 96.0 114.0 88 Low FINAL Harper Wheeler [place] [address] [address] [facility] [address] [id number] 0 Phone: () - 05/23 CMP CO2 [...] the 96 hour stability window. FINAL [place] [address] [id number] 0 Phone: () - 05/23 CMP Creat inine mg/dL 0.5 1.2 0.97 FINAL Harper Wheeler [place] [address] [id number] 0 Phone: () - 05/23 CMP GFR estim ate ml/min /1.73m ^2 58.5 Low GFR is calculate d using the CKD-EPI equation. FINAL Harper Wheeler [place] [address] [id number] 0 Phone: () - 05/23 CMP Gluco se mg/dL 73.0 126.0 72 Low FINAL Harper Wheeler [place] [address] [id number] 0 Phone: () - 05/23 CMP Potas sium mmol/L 3.5 5.1 4.8 FINAL Harper Wheeler [place] [address] [id number] 0 Phone: () - 05/23 CMP Sodiu m mmol/L 136.0 145.0 129 Low FINAL Harper Wheeler [place] [address] [id number] 0 Phone: () - 05/23 CMP Bilir ubin, total mg/dL 0.3 1.2 0.3 FINAL Harper Wheeler [place] [address] [id number] 0 Phone: () - 05/23 CMP Total prote in g/dL 5.7 8.2 7.3 FINAL Harper Wheeler [place] [address] [id number] 0 Phone: () - 05/23 CA 125 panel CA 125 UNITS/ ML 0.0 34.0 7.00 Test performed at [facility] on a [employer] Immunoass ay Analyzer that uses an immunoenz ymometric sandwich assay for analysis. Patient testing should not be performed using multiple methodolo gies due to analytica l variation seen between test methodolo gies. FINAL Harper Peters [facility], [address] [facility] [address] [place] [address] [id number] 0 Phone: () - 05/23 [facility] other lab See optical fabricator d 08/11 [facility] other lab See optical fabricator d 11/10 [facility] other lab See optical fabricator d 11/14 [facility] other lab See optical fabricator d 11/16 [facility] other lab See optical fabricator d 02/17 Mis other lab See optical fabricator d 03/11 [facility] other lab See optical fabricator d 03/24 [facility] other lab See optical fabricator d 04/07 [facility] other lab See optical fabricator d 05/18 CA 125 panel CA 125 UNITS/ ML 0.0 34.0 9.50 Test performed at [facility] on a [employer] Immunoass ay Analyzer that uses an immunoenz ymometric sandwich assay for analysis. Patient testing should not be performed using multiple methodolo gies due to analytica l variation seen between test methodolo gies. FINAL Harper Peters [facility], [address] [facility] [address] [facility] [id number] 0 Phone: () - 11/06 [facility] other lab See optical fabricator d 11/14 CA 125 panel CA 125 UNITS/ ML 0.0 34.0 12.60 Test performed at [facility] on a [employer] Immuno[employer] ay Analyzer that uses an immunoenz ymometric sandwich assay for analysis. Patient testing should not be performed using multiple methodolo gies due to analytica l variation seen between test methodolo gies. FINAL Harper noel [facility], [address] [facility] [address] [facility] [phone] 0 Phone: () - 02/20 [facility] other lab See optical fabricator d 05/23 CA 125 panel CA 125 UNITS/ ML 0.0 34.0 10.30 Test performed at [facility] on a [employer] Immun[employer] ay Analyzer that uses an immunoenz ymometric sandwich assay for analysis. Patient testing should not be performed using multiple methodolo gies due to analytica l variation seen between test methodolo gies. FINAL Pippa Peters [facility] - [place], [address] [facility] [address] [facility] [id number] 0 Phone: () - 09/04 [facility] other lab See optical fabricator d 09/07 CA 125 panel CA 125 UNITS/ ML 0.0 34.0 9.80 Test performed at [facility] on a [employer] Immun[employer] ay Analyzer that uses an immunoenz ymometric sandwich assay for analysis. Patient testing should not be performed using multiple methodolo gies due to analytica l variation seen between test methodolo gies. FINAL Theresa Mcginnisot a [facility] - [place], [address] [facility] [address] [facility] [id number] 0 Phone: () - 03/17 CA 125 panel CA 125 U/ML 0.0 35.0 12.40 Test performed at [facility] on a [employer]zer that uses an immunomet negro immunoass ay technique . Patient testing should not be performed using multiple methodolo gies due to analytica l variation seen between test methodolo gies. FINAL [facility] [place], [address] [facility] [id number] 0 09/15 CA 125 panel CA 125 U/ML 0.0 35.0 8.60 Test performed at [facility] on a [employer] [facility] Immunoass ay Analyzer that uses an immunomet negro immunoass ay technique . Patient testing should not be performed using multiple methodolo gies due to analytica l variation seen between test methodolo gies. FINAL Pippa Peacockjesus elin * [facility] , [address] [facility] [id number] 0 03/17 CA 125 panel CA 125 U/ML 0.0 35.0 8.90 Test performed at [facility] on a [employer] Immuno[employer] ay Analyzer that uses an immunomet negro immunoass ay technique . Patient testing should not be performed using multiple methodolo gies due to analytica l variation seen between test methodolo gies. FINAL Pippa Garciatammy r * [facility] , 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 [id number] invest IV intrave nous 480.0 mg [...] hernia Active Vital Signs Date Type Value 08/04/2019 Oxygen Saturation 95.00 08/04/2019 Body Temperature 97.90 08/04/2019 BSA 1.97 08/04/2019 BMI 33.90 08/04/2019 Height 64.50 08/04/2019 Weight 200.60 08/04/2019 Intravascular Systolic 140 08/04/2019 Intravascular Diastolic 72 08/04/2019 Respiratory Rate 16.00 08/04/2019 Heart Beat 77.00 09/01/2019 BMI 33.63 09/01/2019 Heart Beat 76.00 09/01/2019 Body Temperature 98.10 09/01/2019 Intravascular Systolic 142 09/01/2019 Intravascular Diastolic 84 09/01/2019 Oxygen Saturation 93.00 09/01/2019 Height 64.50 09/01/2019 Weight 199.00 09/01/2019 Pain Scale 0.00 09/01/2019 Respiratory Rate 16.00 09/01/2019 BSA 1.96 09/29/2019 Respiratory Rate 16.00 09/29/2019 Pain Scale 0.00 09/29/2019 Weight 202.00 09/29/2019 BMI 34.14 09/29/2019 BSA 1.98 09/29/2019 Body Temperature 98.10 09/29/2019 Intravascular Systolic 130 09/29/2019 Intravascular Diastolic 72 09/29/2019 Heart Beat 65.00 09/29/2019 Oxygen Saturation 97.00 09/29/2019 Height 64.50 10/27/2019 BSA 2.00 10/27/2019 Respiratory Rate 16.00 10/27/2019 Pain Scale 0.00 10/27/2019 Weight 207.00 10/27/2019 Oxygen Saturation 93.00 10/27/2019 BMI 34.98 10/27/2019 Intravascular Systolic 142 10/27/2019 Intravascular Diastolic 80 10/27/2019 Body Temperature 98.50 10/27/2019 Heart Beat 78.00 10/27/2019 Height 64.50 11/24/2019 Respiratory Rate 16.00 11/24/2019 Pain Scale 0.00 11/24/2019 Weight 211.00 11/24/2019 Height 64.50 11/24/2019 Intravascular Systolic 120 11/24/2019 Intravascular Diastolic 70 11/24/2019 BSA 2.01 11/24/2019 Body Temperature 98.00 11/24/2019 Heart Beat 81.00 11/24/2019 Oxygen Saturation 93.00 11/24/2019 BMI 35.66 12/22/2019 Body Temperature 98.20 12/22/2019 Heart Beat 80.00 12/22/2019 Respiratory Rate 22.00 12/22/2019 Oxygen Saturation 95.00 12/22/2019 BSA 2.03 12/22/2019 Pain Scale 0.00 12/22/2019 Weight 215.00 12/22/2019 Height 64.50 12/22/2019 BMI 36.33 12/22/2019 Intravascular Systolic 142 12/22/2019 Intravascular Diastolic 84 01/19/2020 Body Temperature 98.60 01/19/2020 Heart Beat 86.00 01/19/2020 Oxygen Saturation 96.00 01/19/2020 Intravascular Systolic 140 01/19/2020 Intravascular Diastolic 82 01/19/2020 BSA 2.05 01/19/2020 Pain Scale 0.00 01/19/2020 Weight 221.00 01/19/2020 Height 64.50 01/19/2020 BMI 37.35 01/19/2020 Respiratory Rate 16.00 02/16/2020 Respiratory Rate 14.00 02/16/2020 Pain Scale 0.00 02/16/2020 Weight 225.00 02/16/2020 BMI 38.02 02/16/2020 Height 64.50 02/16/2020 Body Temperature 98.90 02/16/2020 Heart Beat 79.00 02/16/2020 Oxygen Saturation 93.00 02/16/2020 Intravascular Systolic 144 02/16/2020 Intravascular Diastolic 80 02/16/2020 BSA 2.07 03/15/2020 Intravascular Systolic 162 03/15/2020 Intravascular Diastolic 90 03/15/2020 Body Temperature 95.80 03/15/2020 Heart Beat 68.00 03/15/2020 Respiratory Rate 18.00 03/15/2020 Oxygen Saturation 94.00 03/15/2020 BSA 2.07 03/15/2020 Pain Scale 0.00 03/15/2020 Weight 225.00 03/15/2020 Height 64.50 03/15/2020 BMI 38.02 03/15/2020 Intravascular Systolic 188 03/15/2020 Intravascular Diastolic 100 04/12/2020 BMI 38.43 04/12/2020 Height 64.50 04/12/2020 Weight 227.40 04/12/2020 Intravascular Systolic 128 04/12/2020 Intravascular Diastolic 74 04/12/2020 BSA 2.08 04/12/2020 Respiratory Rate 16.00 04/12/2020 Heart Beat 91.00 04/12/2020 Body Temperature 98.00 04/12/2020 Pain Scale 0.00 04/12/2020 Oxygen Saturation 98.00 05/10/2020 BSA 2.06 05/10/2020 BMI 37.86 05/10/2020 Height 64.50 05/10/2020 Weight 224.00 05/10/2020 Pain Scale 0.00 05/10/2020 Respiratory Rate 16.00 05/10/2020 Intravascular Systolic 152 05/10/2020 Intravascular Diastolic 84 05/10/2020 Oxygen Saturation 93.00 05/10/2020 Body Temperature 97.60 05/10/2020 Heart Beat 67.00 06/07/2020 Body Temperature 98.20 06/07/2020 Heart Beat 75.00 06/07/2020 Respiratory Rate 18.00 06/07/2020 Oxygen Saturation 91.00 06/07/2020 BSA 2.02 06/07/2020 Pain Scale 0.00 06/07/2020 Weight 213.80 06/07/2020 Height 64.50 06/07/2020 BMI 36.13 06/07/2020 Intravascular Systolic 134 06/07/2020 Intravascular Diastolic 82 07/05/2020 Body Temperature 98.00 07/05/2020 Heart Beat 71.00 07/05/2020 Respiratory Rate 18.00 07/05/2020 Oxygen Saturation 91.00 07/05/2020 BSA 2.06 07/05/2020 Pain Scale 0.00 07/05/2020 Weight 224.00 07/05/2020 Height 64.50 07/05/2020 BMI 37.86 07/05/2020 Intravascular Systolic 128 07/05/2020 Intravascular Diastolic 70 08/02/2020 Body Temperature 96.20 08/02/2020 Heart Beat 76.00 08/02/2020 Oxygen Saturation 90.00 08/02/2020 Intravascular Systolic 122 08/02/2020 Intravascular Diastolic 64 08/02/2020 Height 64.50 08/02/2020 Respiratory Rate 14.00 08/02/2020 Pain Scale 0.00 08/02/2020 Weight 222.00 08/02/2020 BMI 37.52 08/02/2020 BSA 2.06 08/30/2020 Body Temperature 96.80 08/30/2020 Heart Beat 80.00 08/30/2020 Oxygen Saturation 90.00 08/30/2020 Intravascular Systolic 140 08/30/2020 Intravascular Diastolic 80 08/30/2020 BSA 2.06 08/30/2020 Pain Scale 0.00 08/30/2020 Weight 223.00 08/30/2020 Height 64.50 08/30/2020 BMI 37.69 08/30/2020 Respiratory Rate 14.00 09/27/2020 Body Temperature 96.90 09/27/2020 Heart Beat 66.00 09/27/2020 Respiratory Rate 16.00 09/27/2020 Oxygen Saturation 94.00 09/27/2020 BSA 2.06 09/27/2020 Pain Scale 0.00 09/27/2020 Weight 224.00 09/27/2020 Height 64.50 09/27/2020 BMI 37.86 09/27/2020 Intravascular Systolic 130 09/27/2020 Intravascular Diastolic 80 10/25/2020 Oxygen Saturation 80.00 10/25/2020 BSA 2.09 10/25/2020 BMI 38.90 10/25/2020 Height 64.50 10/25/2020 Weight 230.20 10/25/2020 Pain Scale 0.00 10/25/2020 Intravascular Systolic 132 10/25/2020 Intravascular Diastolic 78 10/25/2020 Respiratory Rate 16.00 10/25/2020 Heart Beat 71.00 10/25/2020 Body Temperature 97.80 11/22/2020 BSA 2.06 11/22/2020 BMI 37.79 11/22/2020 Height 64.50 11/22/2020 Weight 223.60 11/22/2020 Body Temperature 98.00 11/22/2020 Intravascular Systolic 118 11/22/2020 Intravascular Diastolic 70 11/22/2020 Oxygen Saturation 92.00 11/22/2020 Respiratory Rate 16.00 11/22/2020 Heart Beat 64.00 11/22/2020 Pain Scale 0.00 02/11/2021 Oxygen Saturation 86.00 02/11/2021 Heart Beat 72.00 02/11/2021 Body Temperature 98.20 02/11/2021 BSA 2.08 02/11/2021 BMI 38.70 02/11/2021 Height 64.50 02/11/2021 Weight 229.00 02/11/2021 Pain Scale 0.00 02/11/2021 Respiratory Rate 16.00 02/11/2021 Intravascular Systolic 114 02/11/2021 Intravascular Diastolic 60 05/23/2021 Heart Beat 71.00 05/23/2021 Oxygen Saturation 84.00 05/23/2021 BSA 2.09 05/23/2021 BMI 38.87 05/23/2021 Height 64.50 05/23/2021 Weight 230.00 05/23/2021 Pain Scale 0.00 05/23/2021 Respiratory Rate 14.00 05/23/2021 Intravascular Systolic 122 05/23/2021 Intravascular Diastolic 68 05/23/2021 Body Temperature 98.00 08/11/2021 BMI 36.54 08/11/2021 Body Temperature 98.20 08/11/2021 Heart Beat 70.00 08/11/2021 Respiratory Rate 16.00 08/11/2021 BSA 2.03 08/11/2021 Intravascular Systolic 130 08/11/2021 Intravascular Diastolic 74 08/11/2021 Pain Scale 0.00 08/11/2021 Weight 216.20 08/11/2021 Height 64.50 08/11/2021 Oxygen Saturation 95.00 11/14/2021 Body Temperature 98.50 11/14/2021 Heart Beat [...]
--- OUTSIDE RECORDS SUMMARY | 2025-07-19 23:34 | XMS_ITS ---
Author Name Interface, V3Iwowwfi lity Address [address] [facility] [address] [address] [facility] Address [address] [facility] [address] [address] Allergies and Adverse Reactions Medication/Group Name Reaction [...] ARM W/RC - STUDY PT, CAL BOOKED 05/23/2021 [...] APPOINTMENT CT - 605 CT CAP @ [facility] - CHECK IN @10 AM 11/22/2020 APPOINTMENT RCT2 - 605 [place]ACE[place] - 605 [place] 11/22/2020 APPOINTMENT RCPD - 605 PORT - 605 PORT 11/22/2020 APPOINTMENT RCPD - 605 PORT - 605 PORT 11/22/2020 LAB_ORDER Research Phospho rupa ([facility]) 11/22/2020 [...] Visit LAB 15 MIN Encounters Date Name 11/22/2020 BRCA2 gene mutation positive (finding) 11/22/2020 Candidal vulvovagini tis (disorder) 11/22/2020 Cardiomegaly 11/22/2020 Congestive heart emilie lure (disorder) 11/22/2020 History of fallopian tube cancer 11/22/2020 Hypertensive disorde r, systemic arterial (disorder) 11/22/2020 Hyponatremia 11/22/2020 Hypoxia 11/22/2020 Left ventricular hyp ertrophy 11/22/2020 Obesity (disorder) 11/22/2020 Osteopenia 11/22/2020 Personal history of fallopian tube cancer 11/22/2020 Postmenopausal state (finding) 11/22/2020 Secondary peripheral neuropathy (disorder) 11/22/2020 Secondary polycythem ia 11/22/2020 Tobacco dependence s yndrome (disorder) 11/22/2020 Umbilical hernia Immunizations Date Name Route Dose Instructions Refusal Reason Stat us Flu vaccine - Adult Comp leted Covid-19 vaccine (Pfizer) Completed Covid-19 vaccine (Pfizer) Completed Flu vaccine - Adult Comp leted Covid-19 vaccine (Pfizer) Completed Diagnostic Results Date Type Test Units Lower Limit Upper Limit Result Flag Comments Status Ordered By Specimen Source Lab Address 11/22 CMP Album in g/dL 3.2 5.2 4.5 FINAL Tamanna Peters [facility] [place], [address] [place] [address] [place] [address] [id number] [phone] Phone: () - 11/22 CMP Alkal ine phosp hatas e U/L 46.0 116.0 67 FINAL Tamanna Peters [address] [phone] [phone] Phone: () - 11/22 CMP ALT/S GPT U/L 7.0 40.0 13 FINAL Tamanna noel [address] [phone] 0 Phone: () - 11/22 CMP AST/S GOT U/L 13.0 40.0 20 FINAL Tamanna Mcginnis[address] [phone] 0 Phone: () - 11/22 CMP BUN mg/dL 9.0 23.0 20 FINAL Tamanna Mcginnis[address] [id number] 0 Phone: () - 11/22 CMP Calci um mg/dL 8.7 10.4 9.1 FINAL Tamannanithin Mcginnis[address] [phone] 0 Phone: () - 11/22 CMP Chlor sathish mmol/L 96.0 114.0 96 [facility] [address] [phone] 0 Phone: () - 11/22 CMP CO2 mmol/L 20.0 31.0 27 FINAL Tamannanithin Rolon [address] [id number] 0 Phone: () - 11/22 CMP Creat inine mg/dL 0.5 1.2 1.06 FINAL Tamannanithin Mcginnis[address] [phone] 0 Phone: () - 11/22 CMP GFR estim ate ml/min /1.73m ^2 52.8 Low GFR is calculate d using the CKD-EPI equation. FINAL Tamanna Mcginnis[address] [phone] 0 Phone: () - 11/22 CMP Gluco se mg/dL 73.0 126.0 94 FINAL Tamanna Mcginnis[address] [id number] 0 Phone: () - 11/22 CMP Potas sium mmol/L 3.5 5.1 5.0 FINAL Tamanna noel [address] [id number] 0 Phone: () - 11/22 CMP Sodiu m mmol/L 136.0 145.0 130 Low FINAL Tamanna noel [address] [id number] 0 Phone: () - 11/22 CMP Bilir ubin, total mg/dL 0.3 1.2 0.5 FINAL Tamanna Peters [address] [id number] 0 Phone: () - 11/22 CMP Total prote in g/dL 5.7 8.2 6.7 FINAL Tamanna Peters [address] [id number] 0 Phone: () - 11/22 CA 125 panel CA 125 UNITS/ ML 0.0 34.0 8.10 Test performed at [facility] on a [place] 100e Immunoass ay Analyzer that uses an immunoenz ymometric sandwich assay for analysis. Patient testing should not be performed using multiple methoddanelle soto due to analytica l variation seen between test methoddanelle soto. FINAL Tamanna noel [address] [phone] 0 Phone: () - 11/22 CBC w/ auto diff LY # K/uL 0.4 3.6 1.8 FINAL Tamanna Mcginnis bert [facility], [address] [place] [address] 200 [facility] [id number] 0 Phone: () - 11/22 CBC w/ auto diff MO # K/uL 0.2 1.3 0.7 FINAL Tamanna Mcginnis bert [facility], [address] [place] [address] 200 [facility] [phone] 0 Phone: () - 11/22 CBC w/ auto diff EO # K/uL 0.0 0.6 0.4 FINAL Tamanna noel Oncology - [place] [facility], [address] [place] [address] [address] [place] [id number] 0 Phone: () - 11/22 CBC w/ auto diff BA # K/uL 0.0 0.2 0.1 FINAL Tamanna noel Oncology - [place] [facility], [address] [place] [address] 200 [place] [id number] 0 Phone: () - 11/22 CBC w/ auto diff NRBC % #/100W BC 0.0 0.2 0.0 FINAL Tamanna noel Oncology - [place] [facility], [address] [place] [address] 200 [place] [id number] 0 Phone: () - 11/22 CBC w/ auto diff RBC M/uL 3.9 5.1 4.15 FINAL Tamanna noel Oncology - [place] [facility], [address] [place] [address] 200 [place] [id number] 0 Phone: () - 11/22 CBC w/ auto diff HCT % 35.0 48.0 42.3 FINAL Tamanna noel Oncology - [place] [facility], [address] [place] [address] 200 [place] [id number] 0 Phone: () - 11/22 CBC w/ auto diff MCV fL 80.0 104.0 101.9 FINAL Tamanna noel Oncology - [place] [facility], [address] [place] [address] 200 [place] [id number] 0 Phone: () - 11/22 CBC w/ auto diff MCH pg 26.0 35.0 33.5 FINAL Tamanna noel Oncology - [place] [facility], [address] [place] [address] 200 [place] [id number] 0 Phone: () - 11/22 CBC w/ auto diff MCHC g/dL 30.0 35.0 32.9 FINAL Tamanna noel Oncology - [place] [facility], [address] [place] [address] [address] [place] [id number] 0 Phone: () - 11/22 CBC w/ auto diff MPV fL 9.5 13.4 9.3 Low FINAL Tamanna noel Oncology - [place], [address] [place] [id number] 0 Phone: () - 11/22 CBC w/ auto diff RDW % 11.4 16.1 12.70 FINAL Tamanna noel Oncology - [place], [address] [place] [id number] 0 Phone: () - 11/22 CBC w/ auto diff WBC K/uL 3.0 8.9 8.8 FINAL Tamanna noel Oncology - [place], [address] [place] [address] [address] [place] [id number] 0 Phone: () - 11/22 CBC w/ auto diff HGB g/dL 11.3 15.2 13.9 FINAL Tamanna noel Oncology - [place], [address] [place] [address] [address] [place] [id number] 0 Phone: () - 11/22 CBC w/ auto diff PLT K/uL 113.0 364.0 197 FINAL Tamanna noel On[facility] - [place], [address] [place] [address] [address] [place] [id number] 0 Phone: () - 11/22 CBC w/ auto diff Avtar # (ANC) K/uL 1.6 6.6 5.8 FINAL Tamanna noel Oncology - [place], [address] [place] [address] [address] [place] [id number] 0 Phone: () - 11/22 CBC w/ auto diff Avtar % % 43.0 74.0 66.0 FINAL Tamanna noel Oncology - [place], [address] [place] [address] [address] [place] [id number] 0 Phone: () - 11/22 CBC w/ auto diff IG % % 0.0 0.5 0.5 FINAL Tamanna noel Oncology - [place], [address] [place] [id number] 0 Phone: () - 11/22 CBC w/ auto diff IG # K/uL 0.0 0.03 0.04 High FINAL Tamanna noel Oncology - [facility], [address] [place] [id number] 0 Phone: () - 11/22 CBC w/ auto diff LY % % 14.0 41.0 20.2 FINAL Tamanna noel Oncology - [facility], [address] [place] [id number] 0 Phone: () - 11/22 CBC w/ auto diff MO % % 6.0 15.0 7.8 FINAL Tamanna noel Oncology [facility], [address] [place] [id number] 0 Phone: () - 11/22 CBC w/ auto diff EO % % 0.0 7.0 4.9 FINAL Tamanna noel Oncology [facility], [address] [place] [id number] 0 Phone: () - 11/22 CBC w/ auto diff BA % % 0.0 2.0 0.6 FINAL Tamanna noel Oncology [facility], [address] [place] [id number] 0 Phone: () - 11/22 [facility] other lab See button buttonhole marker d 11/22 [facility] other lab See button buttonhole marker d 11/22 [facility] other lab See button buttonhole marker d 02/11 CA 125 panel CA 125 UNITS/ ML 0.0 34.0 8.70 Test performed at [facility] on a [employer] 2000 Immunoass ay Analyzer that uses an immunoenz ymometric sandwich assay for analysis. Patient testing should not be performed using multiple methoddanelle soto due to analytica l variation seen between test methoddanelle soto. FINAL Tamanna noel Oncology [address] [phone] 0 Phone: () - 02/11 CMP Album in g/dL 3.2 5.2 4.3 FINAL Tamanna noel [address] [facility] [phone] 0 Phone: () - 02/11 CMP Alkal ine phosp hatas e U/L 46.0 116.0 53 FINAL Tamanna noel [address] [id number] 0 Phone: () - 02/11 CMP ALT/S GPT U/L 7.0 40.0 14 FINAL Tamanna Peters [address] [id number] 0 Phone: () - 02/11 CMP AST/S GOT U/L 13.0 40.0 22 FINAL Tamanna Peters [address] [id number] 0 Phone: () - 02/11 CMP BUN mg/dL 9.0 23.0 7 Low FINAL Tamanna noel [address] [id number] [phone] Phone: () - 02/11 CMP Calci um mg/dL 8.7 10.4 9.6 [facility] Tamanna Peters [address] [phone] 0 Phone: () - 02/11 CMP Chlor sathish mmol/L 96.0 114.0 91 Low [facility] Tamanna Peters [address] [id number] 0 Phone: () - 02/11 CMP CO2 mmol/L 20.0 31.0 26 FINAL Tamanna Peters [address] [id number] 0 Phone: () - 02/11 CMP Creat inine mg/dL 0.5 1.2 1.03 [facility] Tamanna Mcginnis[address] [id number] 0 Phone: () - 02/11 CMP GFR estim ate ml/min /1.73m ^2 54.5 Low GFR is calculate d using the CKD-EPI equation. [facility] Tamanna Mcginnis[address] [phone] 0 Phone: () - 02/11 CMP Gluco se mg/dL 73.0 126.0 97 FINAL Tamanna noel [address] [id number] 0 Phone: () - 02/11 CMP Potas sium mmol/L 3.5 5.1 4.5 FINAL Tamanna noel [address] [id number] 0 Phone: () - 02/11 CMP Sodiu m mmol/L 136.0 145.0 129 Low FINAL Tamanna noel [address] [id number] 0 Phone: () - 02/11 CMP Bilir ubin, total mg/dL 0.3 1.2 0.4 FINAL Tamanna noel [address] [id number] [phone] Phone: () - 02/11 CMP Total prote in g/dL 5.7 8.2 6.6 FINAL Tamanna noel [address] [phone] 0 Phone: () - 02/11 CBC w/ auto diff WBC K/uL 3.0 8.9 9.2 High FINAL Tamanna noel [facility], [address] [place] [address] [address] [place] [id number] 0 Phone: () - 02/11 CBC w/ auto diff HGB g/dL 11.3 15.2 13.3 FINAL Tamanna noel [facility], [address] [place] [address] 200 [place] [id number] 0 Phone: () - 02/11 CBC w/ auto diff PLT K/uL 113.0 364.0 267 FINAL Tamanna noel [facility], [address] [place] [address] 200 [place] [id number] 0 Phone: () - 02/11 CBC w/ auto diff Avtar # (ANC) K/uL 1.6 6.6 6.1 FINAL Tamanna noel Oncology - [place], [address] [place] [address] [address] [place] [id number] 0 Phone: () - 02/11 CBC w/ auto diff Avtar % % 43.0 74.0 66.8 FINAL Tamanna noel Oncology - [place], [address] [place] [address] [address] [place] [id number] 0 Phone: () - 02/11 CBC w/ auto diff IG % % 0.0 0.5 1.9 High FINAL Taamnna noel Oncology - [place], [address] [place] [address] [address] [place] [id number] 0 Phone: () - 02/11 CBC w/ auto diff IG # K/uL 0.0 0.03 0.17 High FINAL Tamanna noel Oncology - [place], [address] [place] [address] 200 [place] [id number] 0 Phone: () - 02/11 CBC w/ auto diff LY % % 14.0 41.0 19.2 FINAL Tamanna noel Oncology - [place], [address] [place] [address] [address] [place] [id number] 0 Phone: () - 02/11 CBC w/ auto diff MO % % 6.0 15.0 9.2 FINAL Tamanna noel Oncology - [place], [address] [place] [address] [address] [place] [id number] 0 Phone: () - 02/11 CBC w/ auto diff EO % % 0.0 7.0 2.5 FINAL Tamanna noel Oncology - [place], [address] [place] [address] [address] [place] [id number] 0 Phone: () - 02/11 CBC w/ auto diff BA % % 0.0 2.0 0.4 FINAL Tamanna noel On[facility] - [place], [address] [place] [address] [address] [place] [id number] 0 Phone: () - 02/11 CBC w/ auto diff LY # K/uL 0.4 3.6 1.8 FINAL Tamanna noel Oncology - [place], [address] [place] [id number] 0 Phone: () - 02/11 CBC w/ auto diff MO # K/uL 0.2 1.3 0.8 FINAL Tamanna noel Oncology - [place], [address] [place] [id number] 0 Phone: () - 02/11 CBC w/ auto diff EO # K/uL 0.0 0.6 0.2 FINAL Tamanna noel Oncology - [place], [address] [place] [id number] 0 Phone: () - 02/11 CBC w/ auto diff BA # K/uL 0.0 0.2 0.0 FINAL Tamanna noel Oncology - [place] [facility], [address] [place] [id number] 0 Phone: () - 02/11 CBC w/ auto diff NRBC % #/100W BC 0.0 0.2 0.2 FINAL Tamanna noel Oncology - [place], [address] [place] [address] [address] [place] [id number] 0 Phone: () - 02/11 CBC w/ auto diff RBC M/uL 3.9 5.1 4.09 FINAL Tamanna noel Oncology - [place], [address] [place] [address] [address] [place] [id number] 0 Phone: () - 02/11 CBC w/ auto diff HCT % 35.0 48.0 40.6 FINAL Tamanna noel Oncology - [place], [address] [place] [address] [address] [place] [id number] 0 Phone: () - 02/11 CBC w/ auto diff MCV fL 80.0 104.0 99.3 FINAL Tamanna noel Oncology - [place] [facility], [address] [place] [address] 200 [place] [id number] 0 Phone: () - 02/11 CBC w/ auto diff MCH pg 26.0 35.0 32.5 FINAL Tamanna noel Oncology - [place] [facility], [address] [place] [address] 200 [place] [id number] 0 Phone: () - 02/11 CBC w/ auto diff MCHC g/dL 30.0 35.0 32.8 FINAL Tamanna noel On[facility] - [place] [facility], [address] 200 [facility] [place] [id number] 0 Phone: () - 02/11 CBC w/ auto diff MPV fL 9.5 13.4 8.6 Low FINAL Tamanna noel Oncology [facility], [address] 200 [facility] [place] [id number] 0 Phone: () - 02/11 CBC w/ auto diff RDW % 11.4 16.1 14.00 FINAL Tamanna noel [facility], [address] [place] [address] 200 [facility] [place] [id number] 0 Phone: () - 02/11 iSTAT creat inine panel Creat inine , iSTAT mg/dl 0.6 1.3 1.3 FINAL Tamanna noel Oncology [facility], [address] 200 [facility] [place] [id number] 0 Phone: () - 02/11 iSTAT creat inine panel GFR estim ate ml/min /1.73m ^2 41.2 Low GFR is calculate d using the CKD-EPI equation. FINAL Tamanna noel [facility], [address] [place] [address] 200 [facility] [place] [id number] 0 Phone: () - 02/11 [facility] other lab See button buttonhole marker d 05/23 CA 125 panel CA 125 UNITS/ ML 0.0 34.0 7.00 Test performed at [facility] on a [employer] 2000 Immunoass ay Analyzer that uses an immunoenz ymometric sandwich assay for analysis. Patient testing should not be performed using clarence soto due to analytica l variation seen between test hallie soto. FINAL Harper Peters [facility], [address] [facility] [address] [place] [phone] 0 Phone: () - 05/23 CMP Album in g/dL 3.2 5.2 4.6 FINAL Harper noel [facility] [address] [id number] 0 Phone: () - 05/23 CMP Alkal ine phosp hatas e U/L 46.0 116.0 58 FINAL Harper Peters [facility] [address] [id number] 0 Phone: () - 05/23 CMP ALT/S GPT U/L 7.0 40.0 11 [place]AL [place] [address] [id number] 0 Phone: () - 05/23 CMP AST/S GOT U/L 13.0 40.0 23 FINAL Harper Wheeler [place] [address] [id number] 0 Phone: () - 05/23 CMP BUN mg/dL 9.0 23.0 15 FINAL Harper Wheeler [place] [address] [id number] 0 Phone: () - 05/23 CMP Calci um mg/dL 8.7 10.4 10.1 FINAL Harper Wheeler [place] [address] [id number] 0 Phone: () - 05/23 CMP Chlor sathish mmol/L 96.0 114.0 88 Low FINAL Harper Wheeler [place] [address] [id number] 0 Phone: () - 05/23 CMP CO2 [...] the 96 hour stability window. FINAL Harper Wheeler [place] [address] [id number] 0 Phone: () - 05/23 CMP Creat inine mg/dL 0.5 1.2 0.97 FINAL Harper Mcginnis bert [place] [address] [facility] [address] [place] [address] [id number] 0 Phone: () - 05/23 CMP GFR estim ate ml/min /1.73m ^2 58.5 Low GFR is calculate d using the CKD-EPI equation. FINAL Harper Wheeler [place] [address] [facility] [address] [place] [address] [id number] 0 Phone: () - 05/23 CMP Gluco se mg/dL 73.0 126.0 72 Low FINAL Harper Wheeler [place] [address] [address] [facility] [address] [place] [address] [id number] 0 Phone: () - 05/23 CMP Potas sium mmol/L 3.5 5.1 4.8 FINAL Harper Wheeler [place] [address] [id number] 0 Phone: () - 05/23 CMP Sodiu m mmol/L 136.0 145.0 129 Low [facility] [address] [id number] 0 Phone: () - 05/23 CMP Bilir ubin, total mg/dL 0.3 1.2 0.3 FINAL Harper Mcginnis bert [place] [address] [id number] 0 Phone: () - 05/23 CMP Total prote in g/dL 5.7 8.2 7.3 FINAL Harper Mcginnis bert [place] [address] [address] [facility] [address] [place] [address] [id number] 0 Phone: () - 05/23 CBC w/ auto diff WBC K/uL 3.0 8.9 8.9 FINAL Harper Mcginnis bert [facility], [address] [place] [address] [address] [facility] [id number] 0 Phone: () - 05/23 CBC w/ auto diff HGB g/dL 11.3 15.2 15.7 High FINAL Harper [place] [facility] [place], [address] [place] [address] [address] [place] [id number] 0 Phone: () - 05/23 CBC w/ auto diff PLT K/uL 113.0 364.0 220 FINAL Harper noel On[facility] - [place], [address] [place] [address] [address] [place] [id number] 0 Phone: () - 05/23 CBC w/ auto diff Avtar # (ANC) K/uL 1.6 6.6 5.5 FINAL Harper Peters a [facility] - [place], [address] [place] [address] [address] [place] [id number] 0 Phone: () - 05/23 CBC w/ auto diff Avtar % % 43.0 74.0 62.5 FINAL Harper Mcginnisot a [facility] - [place], [address] [place] [address] [address] [place] [id number] 0 Phone: () - 05/23 CBC w/ auto diff IG % % 0.0 0.5 0.5 FINAL Harper Mcginnisot bert Oncology - [place], [address] [place] [address] [address] [place] [id number] 0 Phone: () - 05/23 CBC w/ auto diff IG # K/uL 0.0 0.03 0.04 High FINAL Harper noel On[facility] - [place], [address] [place] [address] [address] [place] [id number] 0 Phone: () - 05/23 CBC w/ auto diff LY % % 14.0 41.0 22.5 FINAL Harper Peters a [facility] - [place], [address] [place] [address] [address] [place] [id number] 0 Phone: () - 05/23 CBC w/ auto diff MO % % 6.0 15.0 8.0 FINAL Harper Mcginnisot bert Oncology - [place], [address] [place] [address] [address] [place] [id number] 0 Phone: () - 05/23 CBC w/ auto diff EO % % 0.0 7.0 5.9 FINAL Harper Mcginnisot a On[facility] - [place], [address] [place] [address] 200 [place] [id number] 0 Phone: () - 05/23 CBC w/ auto diff BA % % 0.0 2.0 0.6 FINAL Harper noel Oncology - [place], [address] [place] [id number] 0 Phone: () - 05/23 CBC w/ auto diff LY # K/uL 0.4 3.6 2.0 FINAL Harper noel Oncology - [place], [address] [place] [address] 200 [place] [id number] 0 Phone: () - 05/23 CBC w/ auto diff MO # K/uL 0.2 1.3 0.7 FINAL Harper noel Oncology - [place], [facility] [address] [place] [id number] 0 Phone: () - 05/23 CBC w/ auto diff EO # K/uL 0.0 0.6 0.5 FINAL Harper noel On[facility] - [place], [address] [place] [address] 200 [place] [id number] 0 Phone: () - 05/23 CBC w/ auto diff BA # K/uL 0.0 0.2 0.1 FINAL Harper noel [facility] - [place], [address] [place] [address] 200 [place] [id number] 0 Phone: () - 05/23 CBC w/ auto diff NRBC % #/100W BC 0.0 0.2 0.0 FINAL Harper noel On[facility] - [place], [facility] [address] [place] [id number] 0 Phone: () - 05/23 CBC w/ auto diff RBC M/uL 3.9 5.1 4.85 FINAL Harper noel [facility] - [place], [address] [place] [address] 200 [place] [id number] 0 Phone: () - 05/23 CBC w/ auto diff HCT % 35.0 48.0 47.1 FINAL Harper noel On[facility] - [place], [address] [place] [address] 200 [place] [id number] 0 Phone: () - 05/23 CBC w/ auto diff MCV fL 80.0 104.0 97.1 FINAL Harper Mcginnisot bert Oncology - [place] [facility], [address] [place] [id number] 0 Phone: () - 05/23 CBC w/ auto diff MCH pg 26.0 35.0 32.4 FINAL Harper Mcginnisot bert Oncology - [place] [facility], [address] [place] [id number] 0 Phone: () - 05/23 CBC w/ auto diff MCHC g/dL 30.0 35.0 33.3 FINAL Harper Mcginnisot bert Oncology - [place] [facility], [address] [place] [id number] 0 Phone: () - 05/23 CBC w/ auto diff MPV fL 9.5 13.4 9.1 Low FINAL Harper Mcginnis a On[facility] - [place] [facility], [address] [place] [id number] 0 Phone: () - 05/23 CBC w/ auto diff RDW % 11.4 16.1 13.00 FINAL Harper Mcginnis bert Oncology - [place] [facility], [address] [place] [id number] 0 Phone: () - 05/23 [facility] other lab See button buttonhole marker d 08/11 [facility] other lab See button buttonhole marker d 11/10 [facility] other lab See button buttonhole marker d 11/14 [facility] other lab See button buttonhole marker d 11/16 [facility] other lab See button buttonhole marker d 02/17 [facility] other lab See button buttonhole marker d 03/11 [facility] other lab See button buttonhole marker d 03/24 [facility] other lab See button buttonhole marker d 04/07 [facility] other lab See button buttonhole marker d 05/18 CA 125 panel CA 125 UNITS/ ML 0.0 34.0 9.50 Test performed at [facility] on a [employer] 2000 Immunoass ay Analyzer that uses an immunoenz ymometric sandwich assay for analysis. Patient testing should not be performed using multiple methodolo gies due to analytica l variation seen between test methodolo gies. FINAL Harper Peters a [facility] - [place], [address] [facility] [address] [facility] [phone] 0 Phone: () - 11/06 [facility] other lab See button buttonhole marker d 11/14 CA 125 panel CA 125 UNITS/ ML 0.0 34.0 12.60 Test performed at [facility] on a [employer] 2000 Immunoass ay Analyzer that uses an immunoenz ymometric sandwich assay for analysis. Patient testing should not be performed using multiple methodolo gies due to analytica l variation seen between test methodolo gies. FINAL Harper Peters a Oncology - [facility] [address] [facility] [address] [facility] [phone] 0 Phone: () - 02/20 [facility] other lab See button buttonhole marker d 05/23 CA 125 panel CA 125 UNITS/ ML 0.0 34.0 10.30 Test performed at [facility] on a [employer] 2000 Immunoass ay Analyzer that uses an immunoenz ymometric sandwich assay for analysis. Patient testing should not be performed using multiple methodolo gies due to analytica l variation seen between test methodolo gies. FINAL Pippa worthington [facility] - [facility] [address] [facility] [phone] 0 Phone: () - 09/04 [facility] other lab See button buttonhole marker d 09/07 CA 125 panel CA 125 UNITS/ ML 0.0 34.0 9.80 Test performed at [facility] on a [employer] 2000 Immunoass ay Analyzer that uses an immunoenz ymometric sandwich assay for analysis. Patient testing should not be performed using multiple methodolo gies due to analytica l variation seen between test methodolo gies. FINAL Theresa worthington [facility] - [place], [address] [facility] [phone] 0 Phone: () - 03/17 CA 125 panel CA 125 U/ML 0.0 35.0 12.40 Test performed at [facility] on a [employer] Immunoass ay Analyzer that uses an immunomet negro immunoass ay technique . Patient testing should not be performed using multiple methodolo gies due to analytica l variation seen between test methodolo gies. FINAL Theresa Bollinge r * [facility] - [place], [facility] [address] [address] [phone] 0 09/15 CA 125 panel CA 125 U/ML 0.0 35.0 8.60 Test performed at [facility] on a [employer] 7600 Immunoass ay Analyzer that uses an immunomet negro immunoass ay technique . Patient testing should not be performed using multiple methodolo gies due to analytica l variation seen between test methodolo gies. FINAL Pippa Anne Marie worthington * [facility] , [facility] [address] [facility] [phone] 0 03/17 CA 125 panel CA 125 U/ML 0.0 35.0 8.90 Test performed at [facility] on a [employer] 7600 Immunoass ay Analyzer that uses an immunomet negro immunoass ay technique . Patient testing should not be performed using multiple methodolo gies due to analytica l variation seen between test methodolo gies. FINAL Pippa Anne Marie r [facility] , [facility] [address] [address] [phone] 0 Medications Date Name Route Dose Frequency [...] malignant neoplasm of fallopian tube (disorder) 07/05 [id number] invest IV intrave nous 480.0 mg [...] hernia Active Vital Signs Date Type Value 11/22/2020 Oxygen Saturation 92.00 11/22/2020 Respiratory Rate 16.00 11/22/2020 Heart Beat 64.00 11/22/2020 Body Temperature 98.00 11/22/2020 BSA 2.06 11/22/2020 Pain Scale 0.00 11/22/2020 Weight 223.60 11/22/2020 Height 64.50 11/22/2020 BMI 37.79 11/22/2020 Intravascular Systolic 118 11/22/2020 Intravascular Diastolic 70 02/11/2021 Height 64.50 02/11/2021 Weight 229.00 02/11/2021 Pain Scale 0.00 02/11/2021 Respiratory Rate 16.00 02/11/2021 BMI 38.70 02/11/2021 Intravascular Systolic 114 02/11/2021 Intravascular Diastolic 60 02/11/2021 Oxygen Saturation 86.00 02/11/2021 Heart Beat 72.00 02/11/2021 Body Temperature 98.20 02/11/2021 BSA 2.08 05/23/2021 Heart Beat 71.00 05/23/2021 Oxygen Saturation 84.00 05/23/2021 Body Temperature 98.00 05/23/2021 Intravascular Systolic 122 05/23/2021 Intravascular Diastolic 68 05/23/2021 BSA 2.09 05/23/2021 Height 64.50 05/23/2021 Weight 230.00 05/23/2021 Pain Scale 0.00 05/23/2021 Respiratory Rate 14.00 05/23/2021 BMI 38.87 08/11/2021 Body Temperature 98.20 08/11/2021 Heart Beat 70.00 08/11/2021 Respiratory Rate 16.00 08/11/2021 Oxygen Saturation 95.00 08/11/2021 Intravascular Systolic 130 08/11/2021 Intravascular Diastolic 74 08/11/2021 Pain Scale 0.00 08/11/2021 Weight 216.20 08/11/2021 Height 64.50 08/11/2021 BMI 36.54 08/11/2021 BSA 2.03 11/14/2021 Body Temperature 98.50 11/14/2021 Heart Beat [...]
--- OUTSIDE RECORDS SUMMARY | 2025-07-19 23:34 | XMS_ITS ---
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 Patient testing should not be performed using multiple methodolo gies due to analytica l variation seen between test methodolo gies. FINAL Theresa worthington [facility], [address] [facility] [phone] 0 Phone: () - 03/17 CA 125 panel CA 125 U/ML 0.0 35.0 12.40 Test performed at [facility] on a [employer] Immunoass ay Analyzer that uses an immunomet negro immunoass ay technique . Patient testing should not be performed using multiple methodolo gies due to analytica l variation seen between test methodolo gies. FINAL Theresa Alvares [employer] a Oncology [facility], [address] [phone] 0 09/15 CA 125 panel CA 125 U/ML 0.0 35.0 8.60 Test performed at [facility] on a [employer] Immunoass ay Analyzer that uses an immunomet negro immunoass ay technique . Patient testing should not be performed using multiple methodolo gies due to analytica l variation seen between test methodolo gies. FINAL Pippa Kenney r [facility] , [address] [facility] [phone] 0 03/17 CA 125 panel CA 125 U/ML 0.0 35.0 8.90 Test performed at [facility] on a [employer] Immunoass ay Analyzer that uses an immunomet negro immunoass ay technique . Patient testing should not be performed using multiple methodolo gies due to analytica l variation seen between test methodolo gies. FINAL Pippa Kenney r * [facility] , [address] [facility] [phone] 0 Medications Date Name Route Dose Frequency [...] hernia Active Vital Signs Date Type Value 09/07/2023 BMI 38.11 09/07/2023 Height 64.50 09/07/2023 Weight 225.50 09/07/2023 Pain Scale 0.00 09/07/2023 BSA 2.07 09/07/2023 Oxygen Saturation 91.00 09/07/2023 Respiratory Rate 16.00 09/07/2023 Heart Beat 66.00 09/07/2023 Body Temperature 98.30 09/07/2023 Intravascular Systolic 150 09/07/2023 Intravascular Diastolic 80 03/17/2024 BMI 37.21 03/17/2024 Height 64.50 03/17/2024 Weight 220.20 03/17/2024 Pain Scale 0.00 03/17/2024 Intravascular Systolic 104 03/17/2024 Intravascular Diastolic 70 03/17/2024 Oxygen Saturation 95.00 03/17/2024 Respiratory Rate 16.00 03/17/2024 Heart Beat 69.00 03/17/2024 Body Temperature 97.90 03/17/2024 BSA 2.05 09/15/2024 Body Temperature 98.10 09/15/2024 Heart Beat [...] 03/17/2025 Pain Scale 0.00 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

<strong>GYNECOLOGIC ONCOLOGY FOLLOW-UP VISIT</strong>
</div><div>
<strong>Patient Name:</strong> <span class=clinicalNotMelyssa id=[id number] macroname=PatientName spantype=macro title=#PatientName>MONIK GALLEGO</span> <strong>:</strong> <span class=clinicalNoteMaTej id=[id number] macroname=PatientDateOfBirth spantype="macro title=#PatientDateOfBirth>1950</span>
<strong>Date of Visit:</strong> <span class=clinicalNoteMaTej id=macro_[id number] macroname=EffectiveDate spantype=macro title=#Ef fectiveDate>09/07/2023</span>
<strong>Referring Provider:</strong> <span class=clinicalHasmukh id=[id number] macron erick=ReferringPhysician spantype=macro title=#ReferringPhysician& gt; </span>
<strong>Attending:</strong> <span class=clinicalNotMelyssa id=[id number] macroname=&quot ;AttendingPhysician spantype=macro title=#AttendingPhysician>Theresaok Kelley (Gynecological/Oncology), Annamarie Shilpa (Gynecological/Oncology)</span>
<span>
<span class=clinicalNoteSectionVisible id=[id number] internalbreaksection=false originalname=Chief Complaint recognizeconcepts=true spantype=section suppressempty=false">Chief Complaint (Gear Cutter Oncology):</span>
Surveillance

<span class=clinicalNoteSectionVisible id=[id number] internalbreaks ection=false originalname=HPI recognizeconcepts=true spantype=&q uot;section suppressempty=false>History of Present Illness (Gear Cutter Oncology):</ span>
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 Here for surveillance.& amp;nbsp;

<strong>TUMOR HISTORY:</strong> <span><ul> <li>12/31/17: Presented to [place] ED with 2 day history of lower abdominal cramping, diarrhea, and bright red rectal bleeding. CT A/P demonstrated a 13.7 x 11.8 cm complex solid mass involving the left adnexa invading the sigmoid colon, thickening of the wall of the descending colon, peritoneal carcinomatosis, para- aortic adenopathy and a 3.9 x 2.7 cm soft tissue mass right lung base.</li> <li>01/01/18: Transferred to [facility]. CT Chest demonstrated multiple nodules of varying size identified both lungs predominantly in the right lung. CA125 = 250.7, CEA 1.4</li> <li>01/02/18: Colonoscopy no invasion or mass obstruction. Biopsy c/w ischemic pattern of injury. 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 Large mass in left adnexa 13.7 --> 6.7cm, no ascites, peritoneal implants improved, significant improvementin the retroperitoneal, para-aortic, and bilateral iliac lymphadenopathy</li> <li>05/30/18: Right lower lobe mass 12.2 x 5mm, less mass-like, adnexal mass decreased in size, resolution of peritoneal implants and lymphadenopathy</li> <li>01/24/18-05/07/18: <strong>Carbo/Tax ol</strong> x 6 cycles, CA125 = 15</li> <li>07/11/18: Exploratory laparoto my, total abdominal hysterectomy, bilateral salpingo-oophorectomy, bilateral retroperitoneal dissection, left ureterolysis, omentectomy, argon beam coagulation of tumor implants, cystoscopy. Optimal to <1cm residual. Uterus small and normal with exception of dense adhesions and fibrosis along the sigmoid colon mesentery. The left ovary and tube was enlarged and cystic measuring approximately 8cm in size with overall necrotic features. Ovary was ruptured intraop. This was densely adherentto the sigmoid mesentery. Residual high grade serous ovarian cancer on the left ovary and fallopiantube, perisigmoid. No tumor in the uterus, omentum or contralateral ovary/tube.</li> <li>08/06/18-08/28/18: <strong>Completed C7/C8 carbo/taxol (Dr. Lacy).</strong></li> <li>09/24/18: CT C/A/P - shows an area or architectural distortion in the medial aspect of the right lower lobe without a discrete mass. Lobulated mass in the left adnexa along the left pelvic sidewall is considerably decreased in size (2.3 x 1.2 cm).</li> <li>10/02/18- 12/27/18: <strong>I6P6-B9 of DEB trial (rucaparib +/- nivolumab vs. place nely)</strong></li> <li>01/20/19: CT C/A/P - Small oval shaped soft tissue mass In the left pelvis 1.7 x 0.9 cm, previously 2.3 x 1.2cm. Colonic diverticulosis. Stable left renal cyst.Small hiatal hernia.</li> <li>01/22/19: M8L7-Bhsamlzad or Placebo + Nivolumab or Placebo</li> <li>02/17/19: A4U5-Jkyzicrymj or Placebo + Nivolumab or Placebo - HELD Rucaparib orPlacebo for 1 week w/ hyponatremia</li> <li>03/19/19: B2I0-Huowjbewgj or Placebo + Nivolumab or Placebo - HELD Rucaparib or Placebo for 1 week w/ hyponatremia. Cervical node palpated (right anterior)</li> <li>03/29/19: Restarted study drug.</li> <li&g t;04/08/19: Head/neck US -intraparotid or juxta parotid masses within the upper neck bilaterally, corresponding to the area of palpable concern, measuring 1.9 cm on the right and 1.5 cm on the left.</li> <li>04/15/19: CT of the neck 1.8 x 1.6 x 1.6 circumscribed mass located in the rightparotid tail with a solid enhancing and cystic component, 1.9 x 1.4 x 1.4 cm circumscribed mass in the left parotid tail which appears to be primarily solid and demonstrated homogenous enhancement</li> <li>04/03/19: S/p consult with nephrology. Thinking dietary related. Added salt and following labs.</li> <li>04/08/19: CT C/A/P -stable 17 x 8 mm soft tissue densityalong the left pelvic sidewall, right paramidline subcutaneous anterior abdominal wall loculated fluid collection measuring 3.3 cm consistent with a postop seroma, no other evidence of recurrent disease.</li> <li>04/16/2019-06/11/19: C8D1- C10D1 Deb trial</li> <li>: CT C/A/P W - scattered 2-3 mm pulmonary nodules bilaterally. No suspicious pulmonary nodule. Stable sub cm a portal caval lymph node. Stable 17 x 8 mm soft tissue density along the left external iliac chain/pelvic side wall. Small hernia measuring 2.1 cm, adjacent to the midline incision. </li> <li>07/09/19-09/01/19: X90X1-V32Q9 GOG-3020 DEB Clinical Trial</li> <li>09/23/2019: CT C/A/P W - stable small bilateral pulmonary nodules measuring 2-3 mm. Mediastinal lymph nodes measuring up to 9 mm. Mild cardiomegaly. Stable cysts left kidney. Stable right paramidline abdominal wall hernia. Stable mild residual soft tissue density along the leftcommon iliac chain measuring 17 x 8 mm, series 2. Stable bilateral subcm inguinal lymph nodes. </li> <li>09/29/2019-02/16/2020: K90A6-G49Y5 GOG-3020 DEB Clinical trial, CA125 = 8. 1</li> <li>03/10/2020: CT C/A/P W -3 mm pleural-based nodule in the periphery of the right upper lobe unchanged; 1.9 cm simple cyst in the upper pole of the left kidney; previously seen soft tissue nodule in the left common iliac artery has resolved; ventral abdominal hernia just right of the umbilicus with fat protruding through the defect unchanged. IGLESIA. </li> <li>03/15/2020-09/27/20: G71X3-S56C9 GOG-3020 DEB Clinical trial</li> <li>10/25/20: <strong>Completed GOG-3020 [...]
</li> <li>05/10/2023T C/A/P: IGLESIA</li> <li>09/04/23: CT C/A/P IGLESIA</li></ul></span><span><span></span></span>
<span><span><span class=cli nicalNoteSectionVisible id=[id number] internalbreaksection=fa lse originalname=Genetic Testing recognizeconcepts=true spantype=&quot ;section suppressempty=false>Genetic Testing (Gear Cutter Oncology):</span>
<ul> <li>10/02/18: BRCA2 mutation c.2312T>G (p.Bum579)</li></ul>&l t;/span></span>
<span><span><span><span class=clinicalNoteSectionVisible id=[id number] internalbreaksection=false" originalname=Interval History (Gear Cutter Oncology) recognizeconcepts=true spant ype=section suppressempty=false>Interval History (Gear Cutter Oncology)</span& gt;</span></span>
Helen is here today for a surveillance visit. She is doing well and is without complaints. She denies vaginal bleeding. She reports a good appetite and denies constipation. Monik is voiding without issue and denies abdominal pain or bloating. Taking Gabapentin 200 mg BID for neuropathy with relief. Still smoking. Tried Chantix, wasn't successful. Using oxygen at home PRN.&amp ;nbsp;Has CPAP for sleep. No SOB at rest but does admit to SOB with exertion.

<span class=clinicalNoteSectionVisible id="[id number] internalbreaksection=false originalname=Review ofSystems recognizeconcepts=true spantype=section suppressempty=false>Review of Systems:</span>
A complete 14-point review of systems is negative except as <span>noted </span>in the above history of present illness.</span>

<span class=clinicalNoteSectionVisible id=[id number] internalbreaksection=false originalname=Past Medical History" recognizeconcepts=true spantype=section suppressempty=false">Past Medical History:</span>
<ul> <li>Hypertension</li> <li>Obesity</li> <li>Hyperlipidemia</li> <li>Tobacco dependence</li> <li>Adenocarcinoma - pyrometallurgical engineer origin</li> <li>BRCA2 mutation</li> <li>Pulmonary nodules - 06/2019 </li> <li>Hernia, paramidline </li></ul>
<span class=clinicalNoteSectionVisible id=[id number] internalbreaksection=false originalname=Past Surgical History recognizeconcepts=true spantype=section suppressempty=true>Surgical History:</span>
<ul> <li>Colonoscopy
</li> <li>Neck lymph node dissection (benign) 15 years ago
</li> <li>Exploratory laparotomy, total abdominal hysterectomy, bilateral salpingo-oophorectomy, bilateral retroperitoneal disse ction, left ureterolysis, omentectomy, cystoscopy - 07/11/18</li></ul>
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
<strong>GYNECOLOGIC HISTORY: </strong><ul> <li>Menarche: 12 LMP: age 49</li> <li>Menopause: yes</li> <li>History ofabnormal paps:</li> <li>History of STI: no</li> <li>History of fibroids: no</li> <li>History of ovarian cysts: no</li> <li>History of endometriosis: no</li> <li>History of OCP use: 5-6 years History of HRT: never</li> <li>Sexually active: yes</li></ul><strong>OBSTETRIC</strong> <strong>HI STORY: </strong> <ul> <li>
</li> <li> x 2
</li> <li>MAB x 1</li></ul><span></span>&lt ;br><span></span>
<span></span>
<span></span>
<span><span class=clinicalNoteSectionVisible id=[id number] internalbreaksection=false originalname=Allergies recognizeconcepts=true spantype=section suppressempty=false>Allergies:</span>
<span class=clinicalNoteMacroWysiwyg id=[id number] macroname=Allergies parameters=ListType:Bulleted,ValueIfNull:NKDA" spantype=macro title=#Allergies(ListType:Bulleted,ValueIfNull:NKDA)><ul> <li>duloxetine HCl</li></ul></span>
<span><span class=clinicalNoteSectionVisible id=[id number] internalbreaks ection=false originalname=Medications recognizeconcepts=true spa ntype=section suppressempty=false>Medications:</span>
<span class=clinicalNot[facility] Hospital[facility]iw[facility] id=[id number] macroname=&quo t;CurrentMedications parameters=ListType:Bulleted spantype=macro title =#CurrentMedications(ListType:Bulleted)><ul> <li>Amlodipine Oral 10 mg tablet 1 tablet PO daily</li> <li>Gabapentin 300 mg capsule Take 2 capsules by mouth BID</li> <li>Aspirin Oral 81 mg tablet,delayed release (DR/EC) 1 tablet PO daily</li> <li>PreserVision AREDS 2 (Vit C,I-Px-Grqpvl-Lutein-Zeaxan Oral 250 mg-90 mg-40 mg-1 mg)</li> <li>Lorazepam Oral 0.5 mg tablet 1 tablet(s) orally Use as Directed as needed for anxiety. Take 1 tablet by mouth 60 minutes prior to MRI may repeat x1 30 min after 1st dose</li> <li>Atorvastatin Oral 20 mg orally daily</li> <li>Cholecalciferol Oral orally daily</li> <li>Losartan Oral 25 mg tablet 1 tablet PO daily</li> <li>Ibuprofen Oral 400 mg tablet 1 TABLET(S) PO Q8H PRN pain</li> <li>Sodium Chloride Oral 1 gram tablet 1 TABLET(S) PO BID</li></ul></span></span></span>

<span class=clinicalNoteSectionVisible id=[id number] internalbr eaksection=false originalname=Family History recognizeconcepts=true" spantype=section suppressempty=false>Family History:</span>
<ul> <li>Mother lymphoma</li> <li>Father - CAD</li> <li>No known history of breast, uterine, ovary, pancreatic, prostate, melanoma or colon cancer</li></ul>
<span class=clinicalNoteSectionVisible id=section_[id number] internalbreaksection=false originalname=Social History rec ognizeconcepts=true spantype=section suppressempty=false>Social History:</span>
<span class=clinicalNoteMacroWysiwyg id=macro [id number] macroname=PatientSmokingStatus parameters=Label:Smoking St atus: ,ValueIfNull:Not recorded spantype=macro title=#PatientSmokingStatus(L sussy:Smoking Status: ,ValueIfNull:Not recorded)>Smoking Status: Smoking Tobacco : Current every day smoker; Smokeless Tobacco : Never used smokeless tobacco; Vaping : Never vaped</span>
. Lives with her in [place]. 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 Smokes 1/2 PPD. 40 years. 5-6 drinks per week. No illicit substances.

<span class=clinicalNoteSectionVisible id=[id number] internalbreaksection=false originalname=Health Maintenance: recognizeconcepts=true spantype="section suppressempty=false>Health Maintenance:</span>
<span><ul> <li>Colonoscopy on 01/02/2018</li> <li>DEXA: 11/17/20 - osteopenia: left femoral neck (-1.3), right femoral neck (-1.1)</li> <li>Mammogram - 04/2023 BI-RADS Category 0 s/p ultrasound with benign findings per patient report </li> <li>Breast MRI: 11/06/2022 BI-RADS Category 1: Negative. </li> <li>Pap Smear on 01/16/2018 NIL</li></ul></span>
<span class=&qu ot;clinicalNoteSectionVisible id=[id number] internalbreaksection="false originalname=Vital Signs recognizeconcepts=true spantype="section suppressempty=false>Vital Signs:</span>
<span class=clinicalNoteMacroWysiwyg id=[id number] macroname=PatientVitalSigns parameters=LookBackDays:1 spantype=macro title=#PatientV italSigns(LookBackDays:1)>Blood pressure: 150/80, Sitting, R arm, Regular, Pulse: 66, Temperature: 98.3 F, Respirations: 16, O2 sat: 91%, At Rest, Room Air, Pain Scale: 0, Height: 64.5 in, Weight: 225.5 lb, BSA: 2.07, BMI: 38.11 kg/m2</span>

<span class=clinicalNoteSectionVisible id=[id number] internalbreaksection=false originalname=Physical Exam recognizeconcepts=true spantype=section suppressempty=false>Physical Exam (Gear Cutter Oncology):</span>
General: No acute distress, well-appearing
Respiratory: Normal respiratory effort.
HEENT: No supraclavicular or cervical lymphadenopathy
Abdomen:&nbsp ;Soft, non-distended, non-tender to palpation, no palpable masses. Midline vertical scar. Ventral hernia at the level of the umbilicus- nontender to palpation without overlying skin changes
Extremities: No LE edema or tenderness. Compression stockings
Lymphatics: No cervical, supraclavicular or inguinal adenopathy
Psych: Appropriate mood and affect.

Pelvic: NEFG. Yeast-like rash extending in left groin down to labia majora. Atrophic vaginal mucosa without lesions or masses. No vaginal bleeding. Cervix, uterus, and adnexa surgically absent. Bimanual exam unremarkable without nodularity, masses, or pelvic fullness. RV exam deferred.

<span class=clinicalNoteSectionVisible id=[id number] internalbreaksection=false originalname=Laboratory Data recognizeconcepts=true" spantype=section suppressempty=false>Laboratory Data:</span>
<span class=clinicalNoteMacroWysiwyg id=[id number] macro name=RecentLabResultsTable parameters=OptionalFlowsheetCategory:CBC,Label:CBC" spantype=macro title=#RecentLabResultsTable(OptionalFlowsheetCategory:CBC,Label: CBC)>CBC<table border=1 style=width:100%> <tbody> <tr> <th align=left>LabResults</th> <td>09/04/2023</td> <td>05/23/2023</td> <td>02/20/2023</td> <td>11/14/2022</td> <td>11/06/2022</td> <td>05/18/2022</td> </tr> <tr> <th align=left"> CBC</th> <td>
</td> <td>
&l t;/td> <td>
</td> <td>
</td> <td>
</td> <td>
</td> </tr> </tbody></table></span>
<span class=clinicalNoteMacroWysiwyg id=[id number] macroname=RecentLabResultsTable parameters=OptionalFlowsheetCategory:Chemistries,Label:CMP spantype=macro title=#RecentLabResultsTable(OptionalFlowsheetCategory:Ch emistries,Label:CMP)>CMP<table border=1 style=width:100%> <tbody> <tr> <th align=left>LabResults</th> <td>09/04/2023</td> <td>05/23/2023</td> <td>02/20/2023</td> <td>11/14/2022</td> <td>11/06/2022</td> <td>05/18/2022</td> </tr> <tr> <th align=left> Chemistries</th> <td>
</td> <td>
</td> <td>
</td> <td>
</td><td>
</td> <td>
</td> </tr> </tbody></table></span>
<span class=clinicalNoteMacroWysiwyg id=[id number] macroname=RecentLabResultsTable parameters=OptionalFlowsheetCate gory:Coags,Label:Coagulation spantype=macro title=#RecentLabResultsTable(Opt ionalFlowsheetCategory:Coags,Label:Coagulation)></span>
<span class=&quot ;clinicalNoteMacroWysalegent health mercy hospital id=[id number] macroname=RecentLabResul tsTable parameters=OptionalFlowsheetCategory:Tumor Markers spantype=macro&qu ot; title=#RecentLabResultsTable(OptionalFlowsheetCategory:Tumor Markers)><table border=1 style=width:100%> <tbody> <tr> <th align=lef t>LabResults</th> <td>09/04/2023</td> <td>05/23/2023</td> &lt ;td>02/20/2023</td> <td>11/14/2022</td> <td>11/06/2022</td> <td& gt;05/18/2022</td> </tr> <tr> <th align=left> TumorMarkers</th> <td>
</td> <td>
</td> <td>
</td> <td>
</td> <td>
</td> <td>
</td> </tr> <tr> <td> CA125 U/mL</td> <td>
</td> <td>10.30</td> <td>
</td> <td>12.60</td> <td>
</td> <td>9.50</td> </tr> </tbody></table></span>

<span class=clinica lNoteSectionVisible id=[id number] internalbreaksection=false&q uot; originalname=Imaging recognizeconcepts=true spantype=section" suppressempty=true>Imaging:</span>
<u>As above </u>
<span class=clinicalNoteSectionVisible id=[id number] internalbreaksection=false originalname=Problems: recognizeconcepts=true spantype=section suppressempty=false>Problems:</span>
<span></span><span class=clinicalNoteMacroWysiwyg id=[id number] macroname=Problems parameters=ListType:Bulleted spantype=macro title=#Problems(ListType:Bulleted)><ul> <li>Primary malignant neoplasm of fallopian tube (disorder) ( Stage Date: 07/26/2018, Stage IVB
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) ( First record:06/11/2019 Last record:06/11/2019; )</li> <li>BRCA2 gene mutation positive (finding) ( First record:10/16/2018 Last record:10/16/2018; )</li> <li>Cardiomegaly</li> <li>History of fallopian tube cancer</li> <li>Hypertensive disorder, systemic arterial (disorder) ( First record:03/19/2019 Last record:03/19/2019; )</li> <li>Hyponatremia</li> <li>Hypoxia</li> <li>Left ventricular hypertrophy</li> <li>Obesity (disorder) ( First record:06/11/2018 Last record:06/11/2018; )</li> <li>Osteopenia</li> <li>Other long-term current use of drug therapy ( First record:05/07/2019 Last record:05/07/2019 Other Migrated ICD10: Z79.899 ; )</li&g t; <li>Postmenopausal state (finding)</li> <li>Primary malignant neoplasm of female genital organ (disorder) ( First record:01/16/2018 Last record:07/26/2018; )</li> <li>Secondary peripheral neuropathy (disorder) ( First record:07/26/2018 Last record:07/26/2018; )</li> <li>Secondary polycythemia</li> <li>Tobacco dependence syndrome (disorder) ( First record:01/16/2018 Last record:01/16/2018 Other Migrated ICD10: F17.200 ; )</li></ul& gt;</span>

<span class=clinicalNoteSectionVisible id=s [id number] internalbreaksection=false originalname=Assessment& Plan recognizeconcepts=true spantype=section suppressempty=& quot;false>Assessment & Plan ([facility]):</span>
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 <span>Completed maintenance therapy on the (GOG-3020) DEB trial 10/25/20. Here today for surveillance. </span>

1. Stage IVB fallopian tube cancer<ul> <li>IGLESIA on exam today. </li> <li>CA125 pending. Will call with today's result. </li> <li>Reviewed CT scan negative for any recurrent or metastatic disease. Ventral hernia noted. Reviewed signs for incarceration. </li> <li><strong>Continue pelvic exam, CA125 and CT scan q6 months until 2024 per DEB trial.&am p;nbsp;</strong></li> <li>S/p port removal </li></ul>2. Hyponatremia - Grade 1<ul> <li>Asymptomatic. </li> <li>Follows with Nephrology</li></ul>3. BRCA2 mutation<ul> <li>Recommend alternating mammogram and breast MRI q6 months.
<ul> <li>Completed Breast MRI 10/2022- BI-RADS Category 1: Negative. <strong> Repeat ordered - needs to be scheduled </ strong></li> <li>Mammogram 04/12/23 BIRADS 0 - s/p ultrasound with benign findings perpatient report
</li> </ul> </li> <li>Recommend yearly skin check due to melanoma risk.</li> <li>Recommend cascade testing for family members.&lt ;/li></ul>4. Parotid gland masses<ul> <li>Bilateral parotid gland masses. Stable. </li> <li>S/p consult with ENT. Instructed to follow up only if no table growth on self exam. </li> <li>FNA biopsy pathology demonstrate d a Warthin's tumor. Negative for malignancy.</li></ul>5. Tobacco dependenc e<ul> <li>Continued to relationship counselor about smoking cessation and long-term effects of smokingon health. </li> <li>Chantix discontinued, will discuss cessation strategies with her PCP </li></ul>6. Hypoxia <ul> <li>Chronic for patient. S/p Pulmonology consult </li></ul>7. Neuropathy - Grade 2<ul> <li& gt;Previously trialed decreasing Gabapentin 100mg BID; unable to tolerate. Continue on 200mg BID</li> <li>No longer using Medical Cannabis.</li> <li>S/p trial of Cymbalta. Developed rash so discontinued.</li> <li>S/p consult with Neurology. EMG showed carpel tunnel syndrome in wrists, bilaterally; and polyneuropathy.</li> <li>Previously discussed how tobacco use can affect peripheral blood flow and worsen neuropathy symptoms. </li></ul>8. Hernia<ul> <li>Small paramidline hernia, in the fascial defect. Adjacent to the midline incision. </li> <li>Asymptomatic</li> <li>Continue monitor unless she becomes symptomatic-reviewed signs of incarceration</li></ul>9. Cardiomegaly, LVH.
<ul> <li>NYHA FC I symptoms
</li> <li>S/p consult with Cardio-Oncology, last seen 05/18/23 </li></ul><strong>10. Candidal infection, left groin </strong><ul> <li><strong>Nystatin powder Rx sent to pharmacy</strong></li></ul>
<strong>RTC in 6 months with MD for surveillance, CA125 and scan review or sooner PRN - I'll clarify timing of follow up with research team. </strong>

I spent 15 minutes reviewing the patient's chart (outside clinic and hospital documentation, labs and imaging) before seeing the patient today. I spent 15 minutes face to face with the patient, 10 minutes of which was spent interviewing and counseling the patient and 5 minutes examining the patient.

Theresa Kelley MD
Gynecologic Oncology [facility]
<span class=clinicalNoteSectionVisible id=[id number] internalbreaksection=false originalname=Plan for Pain recognizeconcepts=true spantype=section suppressempty=false>Pain Care Management:</span>
<span><span class=clinicalNoteMacroWysiwyg id=[id number] macroname=PatientPainScale parameters=Label:Pain Scale: ,LookBackDays:0,ValueIfNull:Not recorded on visit spantype=macro title=#PatientPainScale(Label:Pain Scale: ,LookBackDays:0,ValueIfNull:Not r ecorded on visit)>Pain Scale: 0</span></span></span>
<span&gt ;<span>
<span class=clinicalNoteSectionVisible id=[id number] internalbreaksection=false originalname=Patient Care Management&q uot; recognizeconcepts=true spantype=section suppressempty=false>Patient Care needs:</span>
<span class=clinicalNoteMacroWysiwyg id =[id number] macroname=DepressionStatus parameters=Label:D epressions Status: ,ValueIfNull:Not recorded on visit spantype=macro title=# DepressionStatus(Label:Depressions Status: ,ValueIfNull:Not recorded on visit)>DepressionsStatus: Was screened; Outcome positive: No; Screening Date: 05/23/2023; Screening Tool: PRIME BASS-PHQ2; Total depression score: 0</span>
Psycho-Social PHQ-9 Follow-up Plan (if applicable):
<span><span class=clinicalNoteMacroWysiwyg id=[id number] macroname=PatientSmokingStatus parameters=Label:Smoking Status: ,Camryn ueIfNull:Not recorded spantype=macro title=#PatientSmokingStatus(Label:Smoki ng Status: ,ValueIfNull:Not recorded)>Smoking Status: Smoking Tobacco : Current every day smoker; Smokeless Tobacco : Never used smokeless tobacco; Vaping : Never vaped</span></span></span></span><span><span></span></span>

& lt;hr><span><strong>Theresa Kelley MD</strong>
<span class=&quot ;clinicalHermelindaeMacroWysiwyg id=[id number] macroname=LocationPhoneNu mber parameters=Label:Phone: spantype=macro title=#LocationPhon eNumber(Label:Phone: )> </span>
<span class=cli nicalNotYanacroWysiwyg id=[id number] macroname=LocationFaxNumber parameters=Label:Fax: spantype=macro title=#LocationFaxNumber(Label:Fax: )> </span>

Copy to: <span class=&q uot;clinicalNoteMacroWysiwyg id=[id number] macroname=NoteRecipie nts spantype=macro title=#NoteRecipients>Silver Whalen MD</span ></span>

&lt ;br>

</div>

<div><span c lass=eSignSignature>Electronically signed by Theresa Kelley MD 09/07/2023 09:35CST</span></div></body></html>
--- OUTSIDE RECORDS SUMMARY | 2025-07-19 23:35 | XMS_ITS ---
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 BRCA2 gene mutation positive (finding) 12/22/2019 Candidal vulvovagini tis (disorder) 12/22/2019 Cardiomegaly 12/22/2019 Congestive heart emilie lure (disorder) 12/22/2019 History of fallopian tube cancer 12/22/2019 Hypertensive disorde r, systemic arterial (disorder) 12/22/2019 Hyponatremia 12/22/2019 Hyponatremia (disord er) 12/22/2019 Hypoxia 12/22/2019 Left ventricular hyp ertrophy 12/22/2019 Obesity (disorder) 12/22/2019 Osteopenia 12/22/2019 Other long-term curr ent use of drug therapy 12/22/2019 Personal history of fallopian tube cancer 12/22/2019 Postmenopausal state (finding) 12/22/2019 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 Patient testing should not be performed using multiple methodolo gies due to analytica l variation seen between test methodolo gies. FINAL Tamanna Peters [address] [phone] Phone: () - 12/21 CA 125 panel CA 125 UNITS/ ML 0.0 34.0 7.70 Test performed at [facility] on a [employer] Immunoass ay Analyzer that uses an immunoenz ymometric sandwich assay for analysis. Patient testing should not be performed using multiple methodolo gies due to analytica l variation seen between test methodolo gies. FINAL Tamanna Peters [address] [phone] 0 Phone: () - 12/21 CBC w/ auto diff WBC K/uL 3.0 8.9 8.3 FINAL Tamanna noel [facility], [address] [place] [address] [address] [place] [phone] 0 Phone: () - 12/21 CBC w/ auto diff HGB g/dL 11.3 15.2 12.1 FINAL Tamanna noel [facility], [address] [place] [address] [address] [place] [id number] 0 Phone: () - 12/21 CBC w/ auto diff PLT K/uL 113.0 364.0 160 FINAL Tamanna noel [facility], [address] [place] [address] [address] [place] [phone] 0 Phone: () - 12/21 CBC w/ auto diff Avtar # (ANC) K/uL 1.6 6.6 4.4 FINAL Tmaanna noel [facility], [address] [place] [address] [address] [place] [id number] 0 Phone: () - 12/21 CBC w/ auto diff Avtar % % 43.0 74.0 52.5 FINAL Tamanna noel [facility] [place], [address] [place] [address] [address] [place] [id number] 0 Phone: () - 12/21 CBC w/ auto diff IG % % 0.0 0.5 0.6 High FINAL Tamanna noel [facility] - [place], [address] [place] [address] [address] [place] [id number] 0 Phone: () - 12/21 CBC w/ auto diff IG # K/uL 0.0 0.03 0.05 High FINAL Tamanna noel [facility] - [place], [address] [place] [address] [address] [place] [id number] 0 Phone: () - 12/21 CBC w/ auto diff LY % % 14.0 41.0 32.3 FINAL Tamanna noel [facility] - [place], [address] [place] [address] [address] [place] [id number] 0 Phone: () - 12/21 CBC w/ auto diff MO % % 6.0 15.0 7.9 FINAL Tamanna noel [facility] - [place], [address] [place] [address] [address] [place] [id number] 0 Phone: () - 12/21 CBC w/ auto diff EO % % 0.0 7.0 5.9 FINAL Tamanna noel [facility] - [place], [address] [place] [address] [address] [place] [id number] 0 Phone: () - 12/21 CBC w/ auto diff BA % % 0.0 2.0 0.8 FINAL Tamanna noel [facility] - [place], [address] [place] [address] [address] [place] [id number] 0 Phone: () - 12/21 CBC w/ auto diff LY # K/uL 0.4 3.6 2.7 FINAL Tamanna noel [facility] - [place], [address] [place] [address] [address] [place] [id number] 0 Phone: () - 12/21 CBC w/ auto diff MO # K/uL 0.2 1.3 0.7 FINAL Tamannanithin noel Oncology - [place], [address] [place] [id number] 0 Phone: () - 12/21 CBC w/ auto diff EO # K/uL 0.0 0.6 0.5 FINAL Tamanna noel [facility]cology - [place], [address] [place] [id number] 0 Phone: () - 12/21 CBC w/ auto diff BA # K/uL 0.0 0.2 0.1 FINAL Tamanna noel Oncology - [place], [address] [place] [id number] 0 Phone: () - 12/21 CBC w/ auto diff NRBC % #/100W BC 0.0 0.2 0.0 FINAL Tamanna noel [facility] - [place], [address] [place] [id number] 0 Phone: () - 12/21 CBC w/ auto diff RBC M/uL 3.9 5.1 3.49 Low FINAL Tamanna noel Oncology - [place], [address] [place] [id number] 0 Phone: () - 12/21 CBC w/ auto diff HCT % 35.0 48.0 35.2 FINAL Tamanna noel Oncology - [place], [address] [place] [id number] 0 Phone: () - 12/21 CBC w/ auto diff MCV fL 80.0 104.0 100.9 FINAL Tamanna noel On[facility] - [place], [address] [place] [id number] 0 Phone: () - 12/21 CBC w/ auto diff MCH pg 26.0 35.0 34.7 FINAL Tamanna noel Oncology - [place], [address] [place] [id number] 0 Phone: () - 12/21 CBC w/ auto diff MCHC g/dL 30.0 35.0 34.4 FINAL Tamanna noel Oncology - [place], [address] [place] [id number] 0 Phone: () - 12/21 CBC w/ auto diff MPV fL 9.5 13.4 9.5 FINAL Tamanna noel [facility] [place] [facility], [address] [place] [address] [address] [facility] [phone] 0 Phone: () - 12/21 CBC w/ auto diff RDW % 11.4 16.1 12.80 FINAL Tamanna noel [facility], [address] [place] [address] [address] [facility] [id number] 0 Phone: () - 12/21 CMP Sodiu [...] A/G ratio 1.0 2.0 1.4% FINAL Tamanna Kenny 12/21 CMP Bilir ubin, total mg/dL 0.2 1.2 0.5 FINAL Tamanna Kenny 12/21 CMP Alkal ine phosp hatas e IU/L 50.0 136.0 75 FINAL Tamannanithin Rolon 12/21 CMP ALT/S GPT IU/L 8.0 45.0 29 FINAL Tamanna Kenny 12/21 CMP AST/S GOT IU/L 2.0 40.0 40 Test Performed by:[facility] [address] [facility], [address] [facility] [place] [address]Hqkr e [phone] FINAL Tamannanithin Rolon 12/21 Misc other lab See product director d 01/18 CMP Sodiu m mmol/L 135.0 145.0 135 FINAL Tamannanithin Rolon 01/18 CMP Potas sium mmol/L 3.5 5.0 4.2 FINAL Tamannanithin Rolon 01/18 CMP Chlor sathish mmol/L 98.0 110.0 99 FINAL Tamannanithin Rolon 01/18 CMP CO2 mmol/L 21.0 31.0 28 FINAL Tamanna Kenny 01/18 CMP Anion gap, mmol/ L 5.0 18.0 8.0% FINAL Tamannanithin Rolon 01/18 CMP Gluco se mg/dL 65.0 100.0 86 FINAL Tamannanithin Rolon 01/18 CMP Calci um mg/dL 8.5 10.5 9.6 FINAL Tamanna Kenny 01/18 CMP BUN mg/dL 8.0 25.0 17 FINAL Tamanna Kenny 01/18 CMP Creat inine mg/dL 0.57 1.11 0.97 FINAL Tamanna Kenny 01/18 CMP BUN/C reati nine ratio 10.0 20.0 18.0% FINAL Tamanna Kenny 01/18 CMP GFR Afric an Ameri can, estim ated ml/min /1.73m 2 >60 FINAL Tamanna Rolon 01/18 CMP GFR non-A frica n Bashir can, estim ated ml/min /1.73m 2 57 Low FINAL Tamanna Rolon 01/18 CMP Album in g/dL 3.2 4.6 4.2 FINAL Tamannanithin Rolon 01/18 CMP Total prote in g/dL 6.0 8.0 7.0 FINAL Tamanna Rolon 01/18 CMP Globu samreen g/dL 2.0 3.7 2.8 FINAL Tamanna Rolon 01/18 CMP A/G ratio 1.0 2.0 1.5% FINAL Tamannanithin Rolon 01/18 CMP Bilir ubin, total mg/dL 0.2 1.2 0.4 FINAL Tamanna Rolon 01/18 CMP Alkal ine phosp hatas e IU/L 50.0 136.0 70 FINAL Tamannanithin Rolon 01/18 CMP ALT/S GPT IU/L 8.0 45.0 19 FINAL Tamanna Rolon 01/18 CMP AST/S GOT IU/L 2.0 40.0 34 Test Performed by:[facility] [address], [address] - [place], [place] [address]Nbfu e : FINAL Tamanna Rolon 01/18 TSH panel TSH uIU/ml 0.32 5.0 1.55 Test performed at [facility] on a [employer] 2000 Immunoass ay Analyzer that uses an immunoenz ymometric sandwich assay for analysis. Patient testing should not be performed using multiple methoddanelle soto due to analytica l variation seen between test methoddanelle soto. FINAL Tamanna Peters a [facility] - [place], [address] [facility] [address] [facility] [id number] 0 Phone: () - 01/18 CBC w/ auto diff WBC K/uL 3.0 8.9 8.1 FINAL Tamanna noel Oncology - [facility], [address] [facility] [place] [id number] 0 Phone: () - 01/18 CBC w/ auto diff HGB g/dL 11.3 15.2 11.7 FINAL Tamanna noel [facility] - [place], [address] [place] [address] [address] [place] [id number] 0 Phone: () - 01/18 CBC w/ auto diff PLT K/uL 113.0 364.0 156 FINAL Tamanna noel [facility] - [place], [address] [place] [address] [address] [place] [id number] 0 Phone: () - 01/18 CBC w/ auto diff Avtar # (ANC) K/uL 1.6 6.6 4.3 FINAL Tamanna noel [facility] - [place], [address] [place] [address] [address] [place] [id number] 0 Phone: () - 01/18 CBC w/ auto diff Avtar % % 43.0 74.0 52.3 FINAL Tamanna noel [facility] - [place], [address] [place] [id number] 0 Phone: () - 01/18 CBC w/ auto diff IG % % 0.0 0.5 0.5 FINAL Tamanna noel [facility] - [place], [address] [place] [id number] 0 Phone: () - 01/18 CBC w/ auto diff IG # K/uL 0.0 0.03 0.04 High FINAL Tamanna noel [facility] - [place], [address] [place] [id number] 0 Phone: () - 01/18 CBC w/ auto diff LY % % 14.0 41.0 31.7 FINAL Tamanna noel [facility] - [place], [address] [place] [address] [address] [place] [id number] 0 Phone: () - 01/18 CBC w/ auto diff MO % % 6.0 15.0 10.4 FINAL Tamanna noel [facility] - [place], [address] [place] [address] [address] [place] [id number] 0 Phone: () - 01/18 CBC w/ auto diff EO % % 0.0 7.0 4.5 FINAL Tamanna noel [facility] - [place], [address] [place] [id number] 0 Phone: () - 01/18 CBC w/ auto diff BA % % 0.0 2.0 0.6 FINAL Tamanna noel [facility] - [place], [address] [place] [address] [address] [place] [id number] 0 Phone: () - 01/18 CBC w/ auto diff LY # K/uL 0.4 3.6 2.6 FINAL Tamanna noel [facility] - [place], [address] [place] [address] [address] [place] [id number] 0 Phone: () - 01/18 CBC w/ auto diff MO # K/uL 0.2 1.3 0.9 FINAL Tamanna noel [facility] - [place], [address] [place] [address] [address] [place] [id number] 0 Phone: () - 01/18 CBC w/ auto diff EO # K/uL 0.0 0.6 0.4 FINAL Tamanna noel [facility] - [place], [address] [place] [address] [address] [place] [id number] 0 Phone: () - 01/18 CBC w/ auto diff BA # K/uL 0.0 0.2 0.1 FINAL Tamanna noel [facility] - [place], [address] [place] [address] [address] [place] [id number] 0 Phone: () - 01/18 CBC w/ auto diff NRBC % #/100W BC 0.0 0.2 0.0 FINAL Tamanna noel [facility] - [place], [address] [place] [address] [address] [place] [id number] 0 Phone: () - 01/18 CBC w/ auto diff RBC M/uL 3.9 5.1 3.36 Low FINAL Tamanna noel [facility] - [place], [address] [place] [address] [address] [place] [id number] 0 Phone: () - 01/18 CBC w/ auto diff HCT % 35.0 48.0 34.2 Low FINAL Tamanna noel [facility] - [place], [address] [place] [address] [address] [place] [id number] 0 Phone: () - 01/18 CBC w/ auto diff MCV fL 80.0 104.0 101.8 FINAL Tamanna noel Oncology - [facility], [address] [place] [address] [address] [place] [id number] 0 Phone: () - 01/18 CBC w/ auto diff MCH pg 26.0 35.0 34.8 FINAL Tamanna noel Oncology - [facility], [address] [place] [address] [address] [place] [id number] 0 Phone: () - 01/18 CBC w/ auto diff MCHC g/dL 30.0 35.0 34.2 FINAL Tamanna noel Oncology - [facility], [address] [place] [address] 200 [facility] [place] [id number] 0 Phone: () - 01/18 CBC w/ auto diff MPV fL 9.5 13.4 9.7 FINAL Tamanna noel Oncology [facility], [address] [place] [address] 200 [facility] [place] [id number] 0 Phone: () - 01/18 CBC w/ auto diff RDW % 11.4 16.1 13.20 FINAL Tamanna noel Oncology [facility], [address] [place] [address] 200 [facility] [place] [id number] 0 Phone: () - 01/18 CA 125 panel CA 125 UNITS/ ML 0.0 34.0 9.40 Test performed at [facility] on a [employer] 2000 Immunoass ay Analyzer that uses an immunoenz ymometric sandwich assay for analysis. Patient testing should not be performed using multiple methoddanelle soto due to analytica l variation seen between test methoddanelle soto. FINAL Tamanna noel Oncology [facility], [address] [facility] [address] [facility] [id number] 0 Phone: () - 01/18 Mis other lab See product director d 02/15 CMP Creat inine mg/dL 0.57 1.11 1.03 FINAL Annamarie Smithg ast 02/15 CMP BUN/C reati nine ratio 10.0 20.0 15.0% FINAL Annamarie Bailonfareedg ast 02/15 CMP GFR Afric an Ameri can, estim ated ml/min /1.73m 2 >60 FINAL Annamarie Smithg ast 02/15 CMP GFR non-A frica n Ameri can, estim ated ml/min /1.73m 2 53 Low FINAL Annamarie Smithg ast 02/15 CMP Album in g/dL 3.2 4.6 4.2 FINAL Annamarierenny Smithg ast 02/15 CMP Total prote in g/dL 6.0 8.0 7.2 FINAL Annamarierenny Smithg ast 02/15 CMP Globu samreen g/dL 2.0 3.7 3.0 FINAL Annamarierenny Smith ast 02/15 CMP A/G ratio 1.0 2.0 1.4% FINAL Annamarierenny Bailonderg ast 02/15 CMP Bilir ubin, total mg/dL 0.2 1.2 0.4 FINAL Annamarierenny Smithg ast 02/15 CMP Alkal ine phosp hatas e IU/L 50.0 136.0 70 FINAL [facility]ieren[facility] 02/15 CMP ALT/S GPT IU/L 8.0 45.0 17 FINAL [facility]arierenny [facility] 02/15 CMP AST/S GOT IU/L 2.0 40.0 31 Test Performed by:[facility] [address] - [place], [place] [address]Xxmn e : FINAL Annamarie Smithg ast 02/15 CMP Sodiu m mmol/L 135.0 145.0 134 Low FINAL Annamarierenny Smithg ast 02/15 CMP Potas sium mmol/L 3.5 5.0 4.5 FINAL Annamarie Adamarisderg ast 02/15 CMP Chlor sathish mmol/L 98.0 110.0 99 FINAL Annamarierenny Bailonderg ast 02/15 CMP CO2 mmol/L 21.0 31.0 25 FINAL Annamarierenny Bailonderg ast 02/15 CMP Anion gap, mmol/ L 5.0 18.0 10.0% FINAL Annamarie Smithg ast 02/15 CMP Gluco se mg/dL 65.0 100.0 95 FINAL Annamarierenny Smithg ast 02/15 CMP Calci um mg/dL 8.5 10.5 9.3 FINAL Annamarie rivero 02/15 CMP BUN mg/dL 8.0 25.0 15 FINAL Annamarie Zamorano ast 02/15 CBC w/ auto diff WBC K/uL 3.0 8.9 9.3 High FINAL Annamarie noel [facility] - [place], [address] [place] [address] [address] [place] [id number] 0 Phone: () - 02/15 CBC w/ auto diff HGB g/dL 11.3 15.2 11.8 FINAL Annamarie Mcginnisot a Oncology - [place], [address] [place] [address] [address] [place] [id number] 0 Phone: () - 02/15 CBC w/ auto diff PLT K/uL 113.0 364.0 165 FINAL Annamarie noel [facility] - [place] [facility], [address] [place] [id number] 0 Phone: () - 02/15 CBC w/ auto diff Avtar # (ANC) K/uL 1.6 6.6 5.3 FINAL Annamarie Peters a [facility] - [place] [facility], [address] [place] [address] [address] [place] [id number] 0 Phone: () - 02/15 CBC w/ auto diff Avtar % % 43.0 74.0 57.3 FINAL Annamarie noel [facility] - [place] [facility], [address] [place] [id number] 0 Phone: () - 02/15 CBC w/ auto diff IG % % 0.0 0.5 0.6 High FINAL Annamarie noel [facility] - [place], [address] [place] [address] [address] [place] [id number] 0 Phone: () - 02/15 CBC w/ auto diff IG # K/uL 0.0 0.03 0.06 High FINAL Annamarie Mcginnisot bert Oncology - [place], [address] [place] [address] [address] [place] [id number] 0 Phone: () - 02/15 CBC w/ auto diff LY % % 14.0 41.0 27.4 FINAL Annamarie Mcginnisot a Oncology - [place], [address] [place] [id number] 0 Phone: () - 02/15 CBC w/ auto diff MO % % 6.0 15.0 9.1 FINAL Annamarie noel Oncology - [place], [address] [place] [address] 200 [place] [id number] 0 Phone: () - 02/15 CBC w/ auto diff EO % % 0.0 7.0 5.0 FINAL Annmaarie noel Oncology - [place] [facility], [facility] [address] [place] [id number] 0 Phone: () - 02/15 CBC w/ auto diff BA % % 0.0 2.0 0.6 FINAL Annamarie noel Oncology - [place] [facility], [address] [place] [address] 200 [place] [id number] 0 Phone: () - 02/15 CBC w/ auto diff LY # K/uL 0.4 3.6 2.5 FINAL Annamarie noel Oncology - [place] [facility], [address] [place] [address] 200 [place] [id number] 0 Phone: () - 02/15 CBC w/ auto diff MO # K/uL 0.2 1.3 0.8 FINAL Annamarie noel Oncology - [place] [facility], [address] [place] [address] 200 [place] [id number] 0 Phone: () - 02/15 CBC w/ auto diff EO # K/uL 0.0 0.6 0.5 FINAL Annamarie noel Oncology - [place] [facility], [address] [place] [address] 200 [place] [id number] 0 Phone: () - 02/15 CBC w/ auto diff BA # K/uL 0.0 0.2 0.1 FINAL Annamarie noel Oncology - [place] [facility], [address] [place] [address] 200 [place] [id number] 0 Phone: () - 02/15 CBC w/ auto diff NRBC % #/100W BC 0.0 0.2 0.0 FINAL Annamarie noel Oncology - [place] [facility], [address] [place] [address] 200 [place] [id number] 0 Phone: () - 02/15 CBC w/ auto diff RBC M/uL 3.9 5.1 3.41 Low FINAL Annamarie noel [facility], [address] [place] [address] 200 [facility] [place] [id number] 0 Phone: () - 02/15 CBC w/ auto diff HCT % 35.0 48.0 35.1 FINAL Annamarie noel [facility], [address] [place] [address] 200 [facility] [place] [id number] 0 Phone: () - 02/15 CBC w/ auto diff MCV fL 80.0 104.0 102.9 FINAL Annamarie noel [facility], [address] [place] [address] 200 [facility] [place] [id number] 0 Phone: () - 02/15 CBC w/ auto diff MCH pg 26.0 35.0 34.6 FINAL Annamarie noel [facility], [address] [place] [address] 200 [facility] [place] [id number] 0 Phone: () - 02/15 CBC w/ auto diff MCHC g/dL 30.0 35.0 33.6 FINAL Annamarie noel [facility], [address] [place] [address] 200 [facility] [place] [id number] 0 Phone: () - 02/15 CBC w/ auto diff MPV fL 9.5 13.4 9.4 Low FINAL Annamarie noel [facility], [address] [place] [address] 200 [facility] [place] [id number] 0 Phone: () - 02/15 CBC w/ auto diff RDW % 11.4 16.1 13.20 FINAL Annamarie noel [facility], [address] [place] [address] 200 [facility] [place] [id number] 0 Phone: () - 02/15 CA 125 panel CA 125 UNITS/ ML 0.0 34.0 8.40 Test performed at [facility] on a [employer] Immunoass ay Analyzer that uses an immunoenz ymometric sandwich assay for analysis. Patient testing should not be performed using multiple methodolo ginorris due to analytica l variation seen between test methodolo gies. FINAL Annamarie noel Oncology - [address] [place] [address] [phone] 0 Phone: () - 02/15 TSH panel TSH uIU/mL 0.35 4.94 1.72 In Adults, TSH values between 5.00 and 10.00 uIU/ml do notnecess arily indicate the presence of Hypothyro idism.Cor relation with clinical findings such as presence of goiterand /or Thyropero xidase (TPO) Antibody may be helpful. Formore informati on please refer to KYLAH 2004; 291: 228-238.T est Performed by:[facility] [address] - [place], [place] [address]Dteu e [phone] FINAL Annamarie rivero 02/15 [facility] [place] See product director d 03/15 TSH panel TSH uIU/ml 0.32 5.0 3.10 Test performed at [facility] on a [employer] 2000 Immunoass ay Analyzer that uses an immunoenz ymometric sandwich assay for analysis. Patient testing should not be performed using multiple methodolo gies due to analytica l variation seen between test methodolo gies. FINAL Annamarie noel Oncology - [address] [id number] 0 Phone: () - 03/15 CA 125 panel CA 125 UNITS/ ML 0.0 34.0 8.00 Test performed at [facility] on a [employer] 2000 Immunoass ay Analyzer that uses an immunoenz ymometric sandwich assay for analysis. Patient testing should not be performed using multiple methodolo gies due to analytica l variation seen between test methodolo gies. FINAL Annamarie noel Oncology - [address] [place] [address] [phone] 0 Phone: () - 03/15 CBC w/ auto diff WBC K/uL 3.0 8.9 8.9 FINAL Annamarie noel Oncology - [facility] lis, [address] [place] [id number] 0 Phone: () - 03/15 CBC w/ auto diff HGB g/dL 11.3 15.2 12.1 FINAL Annamarie Mcginnisot a Oncology - [place], [address] [place] [address] [address] [place] [id number] 0 Phone: () - 03/15 CBC w/ auto diff PLT K/uL 113.0 364.0 171 FINAL Annamarie Mcginnisot a Oncology - [place] [facility], [address] [place] [address] [address] [place] [id number] 0 Phone: () - 03/15 CBC w/ auto diff Avtar # (ANC) K/uL 1.6 6.6 5.2 FINAL Annamarie Mcginnisot a Oncology - [place], [address] [place] [address] [address] [place] [id number] 0 Phone: () - 03/15 CBC w/ auto diff Avtar % % 43.0 74.0 58.5 FINAL Annamarie Mcginnisot a Oncology - [place] [facility], [address] [place] [address] [address] [place] [id number] 0 Phone: () - 03/15 CBC w/ auto diff IG % % 0.0 0.5 0.7 High FINAL Annamarie Mcginnisot a Oncology - [place] [facility], [address] [place] [address] [address] [place] [id number] 0 Phone: () - 03/15 CBC w/ auto diff IG # K/uL 0.0 0.03 0.06 High FINAL Annamarie Mcginnisot a Oncology - [place], [address] [place] [address] [address] [place] [id number] 0 Phone: () - 03/15 CBC w/ auto diff LY % % 14.0 41.0 27.2 FINAL Annamarie Mcginnisot a Oncology - [place], [address] [place] [address] [address] [place] [id number] 0 Phone: () - 03/15 CBC w/ auto diff MO % % 6.0 15.0 7.4 FINAL Annamarie Mcginnisot a Oncology - [place], [address] [place] [address] [address] [place] [id number] 0 Phone: () - 03/15 CBC w/ auto diff EO % % 0.0 7.0 5.5 FINAL Annamarierenny Mcginnisot a [facility] - [place] [facility], [address] [place] [id number] 0 Phone: () - 03/15 CBC w/ auto diff BA % % 0.0 2.0 0.7 FINAL Annamarie noel On[facility] - [place] [facility], [address] [place] [id number] 0 Phone: () - 03/15 CBC w/ auto diff LY # K/uL 0.4 3.6 2.4 FINAL Annamarie noel On[facility] - [place] [facility], [address] [place] [id number] 0 Phone: () - 03/15 CBC w/ auto diff MO # K/uL 0.2 1.3 0.7 FINAL Annamarie noel [facility] - [place] [facility], [address] [place] [id number] 0 Phone: () - 03/15 CBC w/ auto diff EO # K/uL 0.0 0.6 0.5 FINAL Annamarie noel Oncology - [place] [facility], [address] [place] [id number] 0 Phone: () - 03/15 CBC w/ auto diff BA # K/uL 0.0 0.2 0.1 FINAL Annamarie noel Oncology - [place] [facility], [address] [place] [id number] 0 Phone: () - 03/15 CBC w/ auto diff NRBC % #/100W BC 0.0 0.2 0.0 FINAL Annamarie noel Oncology - [place] [facility], [address] [place] [id number] 0 Phone: () - 03/15 CBC w/ auto diff RBC M/uL 3.9 5.1 3.41 Low FINAL Annamarie noel Oncology - [place] [facility], [address] [place] [id number] 0 Phone: () - 03/15 CBC w/ auto diff HCT % 35.0 48.0 35.5 FINAL Annamarie noel Oncology - [place] [facility], [address] [place] [id number] 0 Phone: () - 03/15 CBC w/ auto diff MCV fL 80.0 104.0 104.1 High FINAL Annamarie noel Oncology - [place] [facility], [address] [place] [id number] 0 Phone: () - 03/15 CBC w/ auto diff MCH pg 26.0 35.0 35.5 High FINAL Annamarie noel Oncology - [place] [facility], [address] [place] [id number] 0 Phone: () - 03/15 CBC w/ auto diff MCHC g/dL 30.0 35.0 34.1 FINAL Annamarie noel Oncology - [place] [facility], [address] [place] [id number] 0 Phone: () - 03/15 CBC w/ auto diff MPV fL 9.5 13.4 9.6 FINAL Annamarie noel Oncology - [place] [facility], [address] [place] [id number] 0 Phone: () - 03/15 CBC w/ auto diff RDW % 11.4 16.1 13.00 FINAL Annamarie noel Oncology - [place] [facility], [address] [place] [id number] 0 Phone: () - 03/15 CMP Sodiu m mmol/L 135.0 145.0 133 Low FINAL Annamarierenny Smithg ast 03/15 CMP Potas sium mmol/L 3.5 5.0 4.5 FINAL Annamarierenny Bailonderg ast 03/15 CMP Chlor sathish mmol/L 98.0 110.0 96 Low FINAL Annamarierenny Smithg ast 03/15 CMP CO2 mmol/L 21.0 31.0 29 FINAL Annamarierneny Smithg ast 03/15 CMP Anion gap, mmol/ L 5.0 18.0 8.0% FINAL Annamarierenny Bailonderg ast 03/15 CMP Gluco se mg/dL 65.0 100.0 95 FINAL Annamarierenny Bailonderg ast 03/15 CMP Calci um mg/dL 8.5 10.5 10.3 FINAL Annamarie Zamorano ast 03/15 CMP BUN mg/dL 8.0 25.0 14 FINAL Annamarie Zamorano ast 03/15 CMP Creat inine mg/dL 0.57 1.11 1.13 High FINAL Annamarie Smithg ast 03/15 CMP BUN/C reati nine ratio 10.0 20.0 12.0% FINAL Annamarie Zamorano ast 03/15 CMP GFR Afric an Ameri can, estim ated ml/min /1.73m 2 58 Low FINAL Annamarie Smithg ast 03/15 CMP GFR non-A frica n Ameri can, estim ated ml/min /1.73m 2 48 Low FINAL Annamarie Smithg ast 03/15 CMP Album in g/dL 3.2 4.6 4.3 FINAL Annamarie Smithg ast 03/15 CMP Total prote in g/dL 6.0 8.0 7.5 FINAL Annamarie Smithg ast 03/15 CMP Globu samreen g/dL 2.0 3.7 3.2 FINAL Annamarie Smithg ast 03/15 CMP A/G ratio 1.0 2.0 1.3% FINAL Annamarie Zamorano ast 03/15 CMP Bilir ubin, total mg/dL 0.2 1.2 0.5 FINAL Annamarie Smithg ast 03/15 CMP Alkal ine phosp hatas e IU/L 50.0 136.0 69 FINAL Annamarie Smithg ast 03/15 CMP ALT/S GPT IU/L 8.0 45.0 18 FINAL Annamarie Smithg ast 03/15 CMP AST/S GOT IU/L 2.0 40.0 29 Test Performed by:[facility] [address], [address] - [facility], [place] [id number] e : FINAL Annamarie Zamorano ast 03/15 [facility] [place] product director d 03/15 [facility] [place] product director d 03/24 [facility] [place] See product director d 04/12 CA 125 panel CA 125 UNITS/ ML 0.0 34.0 7.70 Test performed at [facility] on a [employer] 2000 Immunoass ay Analyzer that uses an immunoenz ymometric sandwich assay for analysis. Patient testing should not be performed using multiple methodolo gies due to analytica l variation seen between test methodolo gies. FINAL Annamarie noel [facility], [address] [place] [phone] 0 Phone: () - 04/12 TSH panel TSH uIU/ml 0.32 5.0 1.71 Test performed at [facility] on a [employer] 2000 Immunoass ay Analyzer that uses an immunoenz ymometric sandwich assay for analysis. Patient testing should not be performed using multiple methodolo gies due to analytica l variation seen between test methodolo gies. FINAL Annamarie noel [address] [phone] 0 Phone: () - 04/12 CBC w/ auto diff MCH pg 26.0 35.0 35.0 FINAL Annamarie noel Oncology - [facility], [address] [place] [id number] 0 Phone: () - 04/12 CBC w/ auto diff MCHC g/dL 30.0 35.0 33.1 FINAL Annamarie Mcginnisot bert Oncology - [facility], [address] [place] [address] [address] [place] [id number] 0 Phone: () - 04/12 CBC w/ auto diff MPV fL 9.5 13.4 9.5 FINAL Annamarie Mcginnisot bert [facility], [address] [place] [id number] 0 Phone: () - 04/12 CBC w/ auto diff RDW % 11.4 16.1 12.90 FINAL Annamarie Mcginnisot bert Oncology [facility], [facility] [address] [place] [id number] 0 Phone: () - 04/12 CBC w/ auto diff WBC K/uL 3.0 8.9 8.9 FINAL Annamarie Mcginnisot bert Oncology [facility], [address] [place] [id number] 0 Phone: () - 04/12 CBC w/ auto diff HGB g/dL 11.3 15.2 11.8 FINAL Annamarie Mcginnisot a Oncology - [place], [address] [place] [address] [address] [place] [id number] 0 Phone: () - 04/12 CBC w/ auto diff PLT K/uL 113.0 364.0 162 FINAL Annamarie Mcginnisot a Oncology - [place], [address] [place] [address] [address] [place] [id number] 0 Phone: () - 04/12 CBC w/ auto diff Avtar # (ANC) K/uL 1.6 6.6 5.0 FINAL Annamarie Mcginnisot a Oncology - [place], [address] [place] [address] [address] [place] [id number] 0 Phone: () - 04/12 CBC w/ auto diff Avtar % % 43.0 74.0 56.1 FINAL Annamarie Mcginnisot a Oncology - [place], [address] [place] [address] [address] [place] [id number] 0 Phone: () - 04/12 CBC w/ auto diff IG % % 0.0 0.5 0.7 High FINAL Annamarie Mcginnisot a Oncology - [place], [address] [place] [address] [address] [place] [id number] 0 Phone: () - 04/12 CBC w/ auto diff IG # K/uL 0.0 0.03 0.06 High FINAL Annamarie Mcginnisot a Oncology - [place], [address] [place] [address] [address] [place] [id number] 0 Phone: () - 04/12 CBC w/ auto diff LY % % 14.0 41.0 29.0 FINAL Annamarie Mcginnisot a Oncology - [place], [address] [place] [address] [address] [place] [id number] 0 Phone: () - 04/12 CBC w/ auto diff MO % % 6.0 15.0 7.8 FINAL Annamarie Mcginnisot a Oncology - [place], [address] [place] [address] [address] [place] [id number] 0 Phone: () - 04/12 CBC w/ auto diff EO % % 0.0 7.0 5.6 FINAL Annamarie Prenderg ast [place] [facility] [place], [address] [place] [address] [address] [place] [id number] 0 Phone: () - 04/12 CBC w/ auto diff BA % % 0.0 2.0 0.8 FINAL Annamarie Mcginnisot bert Oncology - [place], [address] [place] [address] [address] [place] [id number] 0 Phone: () - 04/12 CBC w/ auto diff LY # K/uL 0.4 3.6 2.6 FINAL Annamarie Mcginnisot a Oncology - [place], [address] [place] [address] [address] [place] [id number] 0 Phone: () - 04/12 CBC w/ auto diff MO # K/uL 0.2 1.3 0.7 FINAL Annamarie Mcginnisot a Oncology - [place], [address] [place] [address] [address] [place] [id number] 0 Phone: () - 04/12 CBC w/ auto diff EO # K/uL 0.0 0.6 0.5 FINAL Annamarie Mcginnisot a Oncology - [place] [facility], [address] [place] [address] [address] [place] [id number] 0 Phone: () - 04/12 CBC w/ auto diff BA # K/uL 0.0 0.2 0.1 FINAL Annamarie Mcginnisot a Oncology - [place], [address] [place] [address] [address] [place] [id number] 0 Phone: () - 04/12 CBC w/ auto diff NRBC % #/100W BC 0.0 0.2 0.0 FINAL Annamarie Mcginnisot a Oncology - [place], [address] [place] [address] [address] [place] [id number] 0 Phone: () - 04/12 CBC w/ auto diff RBC M/uL 3.9 5.1 3.37 Low FINAL Annamarie Mcginnisot a Oncology - [place], [address] [place] [address] [address] [place] [id number] 0 Phone: () - 04/12 CBC w/ auto diff HCT % 35.0 48.0 35.7 FINAL Annamarie Prenderg ast [place] [facility] [place], [address] [place] [address] [address] [place] [id number] 0 Phone: () - 04/12 CBC w/ auto diff MCV fL 80.0 104.0 105.9 High FINAL Annamarie Mcginnisot bert Oncology - [place], [address] [place] [id number] 0 Phone: () - 04/12 CMP Sodiu m mmol/L 135.0 145.0 132 Low FINAL Annamarie Zamorano ast 04/12 CMP Potas sium mmol/L 3.5 5.0 4.5 FINAL Annamarie Smith ast 04/12 CMP Chlor sathish mmol/L 98.0 110.0 97 Low FINAL Annamarie Smith ast 04/12 CMP CO2 mmol/L 21.0 31.0 27 FINAL Annamarie Smith ast 04/12 CMP Anion gap, mmol/ L 5.0 18.0 8.0% FINAL Annamarie Smith ast 04/12 CMP Gluco se mg/dL 65.0 100.0 96 FINAL Annamarie Smith ast 04/12 CMP Calci um mg/dL 8.5 10.5 9.4 FINAL Annamarie Smith ast 04/12 CMP BUN mg/dL 8.0 25.0 12 FINAL Annamarie Smith ast 04/12 CMP Creat inine mg/dL 0.57 1.11 1.02 FINAL Annamarie Smith ast 04/12 CMP BUN/C reati nine ratio 10.0 20.0 12.0% FINAL Annamarierenny Smith ast 04/12 CMP GFR Afric an Ameri can, estim ated ml/min /1.73m 2 >60 FINAL Annamarie Smith ast 04/12 CMP GFR non-A frica n Ameri can, estim ated ml/min /1.73m 2 54 Low FINAL Annamarierenny Smith ast 04/12 CMP Album in g/dL 3.2 4.6 4.2 FINAL Annamarie Luis ast 04/12 CMP Total prote in g/dL 6.0 8.0 7.0 FINAL Annamarierenny Smith ast 04/12 CMP Globu samreen g/dL 2.0 3.7 2.8 FINAL Annamarie Zamorano ast 04/12 CMP A/G ratio 1.0 2.0 1.5% FINAL Annamarie Zamorano ast 04/12 CMP Bilir ubin, total mg/dL 0.2 1.2 0.4 FINAL Annamarie Zamorano ast 04/12 CMP Alkal ine phosp hatas e IU/L 50.0 136.0 63 FINAL Annamarie Zamorano ast 04/12 CMP ALT/S GPT IU/L 8.0 45.0 16 FINAL Annamarie Zamorano ast 04/12 CMP AST/S GOT IU/L 2.0 40.0 30 Test Performed by:[facility] [address], [address] - [facility], [place] [address]Bqzy e : FINAL Annamarie Zamorano ast 04/12 [facility] [place] See product director d 04/12 [facility] [place] See product director d 05/10 CBC w/ auto diff BA % % 0.0 2.0 0.5 FINAL Tamanna noel Oncology - [place], [address] [place] [address] [address] [place] [id number] 0 Phone: () - 05/10 CBC w/ auto diff LY # K/uL 0.4 3.6 2.3 FINAL Tamanna noel Oncology - [place], [address] [place] [id number] 0 Phone: () - 05/10 CBC w/ auto diff MO # K/uL 0.2 1.3 0.8 FINAL Tamanna noel Oncology - [place], [address] [place] [id number] 0 Phone: () - 05/10 CBC w/ auto diff EO # K/uL 0.0 0.6 0.5 FINAL Tamanna noel Oncology - [place], [address] [place] [id number] 0 Phone: () - 05/10 CBC w/ auto diff BA # K/uL 0.0 0.2 0.1 FINAL Tamanna noel Oncology - [place], [address] [place] [address] [address] [place] [id number] 0 Phone: () - 05/10 CBC w/ auto diff NRBC % #/100W BC 0.0 0.2 0.0 FINAL Tamanna noel Oncology - [place], [address] [place] [id number] 0 Phone: () - 05/10 CBC w/ auto diff RBC M/uL 3.9 5.1 3.61 Low FINAL Tamanna noel Oncology - [place], [address] [place] [id number] 0 Phone: () - 05/10 CBC w/ auto diff HCT % 35.0 48.0 36.9 FINAL Tamanna noel Oncology - [place], [address] [place] [id number] 0 Phone: () - 05/10 CBC w/ auto diff MCV fL 80.0 104.0 102.2 FINAL Tamanna noel Oncology - [place], [address] [place] [id number] 0 Phone: () - 05/10 CBC w/ auto diff MCH pg 26.0 35.0 35.7 High FINAL Tamanna noel Oncology - [place], [address] [place] [id number] 0 Phone: () - 05/10 CBC w/ auto diff MCHC g/dL 30.0 35.0 35.0 FINAL Tamanna noel Oncology - [place], [address] [place] [address] [address] [place] [id number] 0 Phone: () - 05/10 CBC w/ auto diff MPV fL 9.5 13.4 9.2 Low FINAL Tamanna noel Oncology - [place], [address] [place] [address] 200 [place] [id number] 0 Phone: () - 05/10 CBC w/ auto diff RDW % 11.4 16.1 12.50 FINAL Tamanna noel Oncology - [place], [address] [place] [id number] 0 Phone: () - 05/10 CBC w/ auto diff WBC K/uL 3.0 8.9 10.3 High FINAL Tamanna noel Oncology - [place], [address] [place] [address] [address] [facility] [id number] 0 Phone: () - 05/10 CBC w/ auto diff HGB g/dL 11.3 15.2 12.9 FINAL Tamanna noel Oncology - [place], [address] [facility] [id number] 0 Phone: () - 05/10 CBC w/ auto diff PLT K/uL 113.0 364.0 172 FINAL Tamanna noel Oncology - [place], [address] [place] [address] [address] [facility] [id number] 0 Phone: () - 05/10 CBC w/ auto diff Avtar # (ANC) K/uL 1.6 6.6 6.6 FINAL Tamanna noel Oncology - [place], [address] [place] [address] [address] [facility] [id number] 0 Phone: () - 05/10 CBC w/ auto diff Avtar % % 43.0 74.0 64.3 FINAL Tamanna noel Oncology - [place], [address] [place] [address] [address] [facility] [id number] 0 Phone: () - 05/10 CBC w/ auto diff IG % % 0.0 0.5 0.7 High FINAL Tamanna noel Oncology - [place], [address] [place] [address] [address] [facility] [id number] 0 Phone: () - 05/10 CBC w/ auto diff IG # K/uL 0.0 0.03 0.07 High FINAL Tamanna noel Oncology - [place], [address] [place] [address] [address] [facility] [id number] 0 Phone: () - 05/10 CBC w/ auto diff LY % % 14.0 41.0 22.7 FINAL Tamanna noel Oncology - [place], [address] [place] [address] [address] [facility] [id number] 0 Phone: () - 05/10 CBC w/ auto diff MO % % 6.0 15.0 7.4 FINAL Tamanna noel [facility], [address] [place] [address] [address] [facility] [id number] 0 Phone: () - 05/10 CBC w/ auto diff EO % % 0.0 7.0 4.4 FINAL Tamanna noel [facility], [address] [facility] [id number] 0 Phone: () - 05/10 CA 125 panel CA 125 UNITS/ ML 0.0 34.0 9.80 Test performed at [facility] on a [employer] 2000 Immunoass ay Analyzer that uses an immunoenz ymometric sandwich assay for analysis. Patient testing should not be performed using multiple methodolo gies due to analytica l variation seen between test methodolo gies. FINAL Tamanna noel [facility], [address] [place] [phone] 0 Phone: () - 05/10 TSH panel TSH uIU/ml 0.32 5.0 1.90 Test performed at [facility] on a [employer] 2000 Immunoass ay Analyzer that uses an immunoenz ymometric sandwich assay for analysis. Patient testing should not be performed using multiple methodolo gies due to analytica l variation seen between test methodolo gies. FINAL Tamanna noel [facility], [address] [place] [address] [id number] 0 Phone: () - 05/10 CMP Sodiu m mmol/L 135.0 145.0 132 Low FINAL Tamanna Rolon 05/10 CMP Potas sium mmol/L 3.5 5.0 4.4 FINAL Tamanna Rolon 05/10 CMP Chlor sathish mmol/L 98.0 110.0 95 Low FINAL Tamanna Rolon 05/10 CMP CO2 mmol/L 21.0 31.0 29 FINAL Tamanna Rolon 05/10 CMP Anion gap, mmol/ L 5.0 18.0 8.0% FINAL Tamanna Rooln 05/10 CMP Gluco se mg/dL 65.0 100.0 [...] GOT IU/L 2.0 40.0 33 Test Performed by:[facility] [address] [facility] [place] [address]Ywfn e [phone] FINAL Tamanna Rolon 05/10 [facility] [place] See product director d 05/10 [facility] [place] See product director d 05/25 [facility] [place] See product director d 06/07 CMP Sodiu m mmol/L 135.0 145.0 130 Low FINAL Annamarie Prenderg ast 06/07 CMP Potas sium mmol/L 3.5 5.0 4.4 FINAL [facility] CMP Chlor sathish mmol/L 98.0 110.0 91 Low FINAL [facility]07 CMP CO2 mmol/L 21.0 31.0 30 FINAL Annamarie [facility] ast 06/07 CMP Anion gap, mmol/ L 5.0 18.0 9.0% FINAL [facility]07 CMP Gluco se mg/dL 65.0 100.0 87 FINAL [facility]07 CMP Calci um mg/dL 8.5 10.5 10.1 FINAL [facility]07 CMP BUN mg/dL 8.0 25.0 12 FINAL Annamarie [facility] ast 06/07 CMP Creat inine mg/dL 0.57 1.11 1.12 High FINAL Annamarie [facility] ast 06/07 CMP BUN/C reati nine ratio 10.0 20.0 11.0% FINAL [facility] ast 06/07 CMP GFR Afric an Ameri can, estim ated ml/min /1.73m 2 58 Low FINAL Annamarie [facility] 06/07 CMP GFR non-A frica n Ameri can, estim ated ml/min /1.73m 2 48 Low FINAL [facility] ast 06/07 CMP Album in g/dL 3.2 4.6 4.2 FINAL [facility] ast 06/07 CMP Total prote in g/dL 6.0 8.0 7.3 FINAL [facility] ast 06/07 CMP Globu samreen g/dL 2.0 3.7 3.1 FINAL [facility] 06/07 CMP A/G ratio 1.0 2.0 1.4% FINAL [facility] ast 06/07 CMP Bilir ubin, total mg/dL 0.2 1.2 0.5 FINAL [facility] ast 06/07 CMP Alkal ine phosp hatas e IU/L 50.0 136.0 63 FINAL [facility] ast 06/07 CMP ALT/S GPT IU/L 8.0 45.0 24 FINAL [facility] ast 06/07 CMP AST/S GOT IU/L 2.0 40.0 44 High Test Performed by:[facility] [address] - [place], [place] [address]Prvs e : FINAL Annamarie Zamorano ast 06/07 CBC w/ auto diff WBC K/uL 3.0 8.9 9.5 High FINAL Annamarie Mcginnisot a Oncology - [place] [facility], [address] [place] [id number] 0 Phone: () - 06/07 CBC w/ auto diff HGB g/dL 11.3 15.2 12.2 FINAL Annamarie Mcginnisot a [facility], [address] [place] [address] [address] [place] [id number] 0 Phone: () - 06/07 CBC w/ auto diff PLT K/uL 113.0 364.0 166 FINAL Annamarie Mcginnisot a [facility], [address] [place] [address] [address] [place] [id number] 0 Phone: () - 06/07 CBC w/ auto diff Avtar # (ANC) K/uL 1.6 6.6 5.8 FINAL Annamarie Mcginnisot a [facility], [address] [place] [address] [address] [place] [id number] 0 Phone: () - 06/07 CBC w/ auto diff Avtar % % 43.0 74.0 60.6 FINAL Annamarie Mcginnisot a [facility], [address] [place] [address] [address] [place] [id number] 0 Phone: () - 06/07 CBC w/ auto diff IG % % 0.0 0.5 0.7 High FINAL Annamarie Mcginnisot a [facility], [address] [place] [address] [address] [place] [id number] 0 Phone: () - 06/07 CBC w/ auto diff IG # K/uL 0.0 0.03 0.07 High FINAL Annamarie Mcginnisot a Oncology [facility], [address] [place] [address] [address] [place] [id number] 0 Phone: () - 06/07 CBC w/ auto diff LY % % 14.0 41.0 25.2 FINAL Annamarie Mcginnisot a Oncology - [place], [address] [place] [address] [address] [place] [id number] 0 Phone: () - 06/07 CBC w/ auto diff MO % % 6.0 15.0 7.7 FINAL Annamarie Mcginnisot a Oncology - [place], [address] [place] [address] [address] [place] [id number] 0 Phone: () - 06/07 CBC w/ auto diff EO % % 0.0 7.0 5.1 FINAL Annamarie Mcginnisot a Oncology - [place], [address] [place] [address] [address] [place] [id number] 0 Phone: () - 06/07 CBC w/ auto diff BA % % 0.0 2.0 0.7 FINAL Annamarie Mcginnisot a Oncology - [place], [address] [place] [address] [address] [place] [id number] 0 Phone: () - 06/07 CBC w/ auto diff LY # K/uL 0.4 3.6 2.4 FINAL Annamarie Mcginnisot a Oncology - [place], [address] [place] [address] [address] [place] [id number] 0 Phone: () - 06/07 CBC w/ auto diff MO # K/uL 0.2 1.3 0.7 FINAL Annamarie Mcginnisot a Oncology - [place], [address] [place] [address] [address] [place] [id number] 0 Phone: () - 06/07 CBC w/ auto diff EO # K/uL 0.0 0.6 0.5 FINAL Annamarie Mcginnisot a Oncology - [place], [address] [place] [address] [address] [place] [id number] 0 Phone: () - 06/07 CBC w/ auto diff BA # K/uL 0.0 0.2 0.1 FINAL Annamarie rivero [place] [facility] [place], [address] [place] [address] [address] [place] [id number] 0 Phone: () - 06/07 CBC w/ auto diff NRBC % #/100W BC 0.0 0.2 0.0 FINAL Annamarie noel Oncology - [place] [facility], [address] [place] [address] [address] [place] [id number] 0 Phone: () - 06/07 CBC w/ auto diff RBC M/uL 3.9 5.1 3.46 Low FINAL Annamarie noel Oncology - [place] [facility], [address] [place] [address] [address] [place] [id number] 0 Phone: () - 06/07 CBC w/ auto diff HCT % 35.0 48.0 35.6 FINAL Annamarie noel [facility], [address] [place] [address] [address] [place] [id number] 0 Phone: () - 06/07 CBC w/ auto diff MCV fL 80.0 104.0 102.9 FINAL Annamarie noel [facility], [address] [place] [address] [address] [place] [id number] 0 Phone: () - 06/07 CBC w/ auto diff MCH pg 26.0 35.0 35.3 High FINAL Annamarie noel Oncology - [place] [facility], [address] [place] [address] [address] [place] [id number] 0 Phone: () - 06/07 CBC w/ auto diff MCHC g/dL 30.0 35.0 34.3 FINAL Annamarie noel Oncology - [place] [facility], [address] [place] [address] [address] [place] [id number] 0 Phone: () - 06/07 CBC w/ auto diff MPV fL 9.5 13.4 9.4 Low FINAL Annamarie noel Oncology - [place] [facility], [address] [place] [address] [address] [place] [id number] 0 Phone: () - 06/07 CBC w/ auto diff RDW % 11.4 16.1 12.50 FINAL Annamarie Mcginnisot bert Oncology - [place] [facility], [address] [place] [address] [address] [place] [id number] 0 Phone: () - 06/07 CA 125 panel CA 125 UNITS/ ML 0.0 34.0 9.80 Test performed at [facility] on a [employer] 2000 Immunoass ay Analyzer that uses an immunoenz ymometric sandwich assay for analysis. Patient testing should not be performed using multiple methodolo gies due to analytica l variation seen between test methodolo gies. FINAL Annamarie noel [facility], [address] [place] [address] [phone] Phone: () - 06/07 TSH panel TSH uIU/ml 0.32 5.0 3.43 Test performed at [facility] on a [employer] 2000 Immunoass ay Analyzer that uses an immunoenz ymometric sandwich assay for analysis. Patient testing should not be performed using multiple methodolo gies due to analytica l variation seen between test methodolo gies. FINAL Annamarie noel [address] [phone] 0 Phone: () - 06/07 [facility] [place] See product director d 07/05 CA 125 panel CA 125 UNITS/ ML 0.0 34.0 9.50 Test performed at [facility] on a [employer] 2000 Immunoass ay Analyzer that uses an immunoenz ymometric sandwich assay for analysis. Patient testing should not be performed using multiple methodolo gies due to analytica l variation seen between test methodolo gies. FINAL Tamanna noel [facility], [address] [place] [address] [phone] 0 Phone: () - 07/05 CBC w/ auto diff BA # K/uL 0.0 0.2 0.1 FINAL Tamanna noel [facility], [address] [place] [address] [address] [facility] [id number] 0 Phone: () - 07/05 CBC w/ auto diff NRBC % #/100W BC 0.0 0.2 0.0 FINAL Tamanna Mcginnis bert [facility], [address] [place] [address] [address] [facility] [id number] 0 Phone: () - 07/05 CBC w/ auto diff RBC M/uL 3.9 5.1 3.54 Low FINAL Tamanna noel [facility], [address] [place] [address] [address] [facility] [id number] 0 Phone: () - 07/05 CBC w/ auto diff HCT % 35.0 48.0 37.0 FINAL Tamanna noel [facility] [place], [address] [place] [address] [address] [place] [id number] 0 Phone: () - 07/05 CBC w/ auto diff MCV fL 80.0 104.0 104.5 High FINAL Tamanna noel [facility] - [place], [address] [place] [id number] 0 Phone: () - 07/05 CBC w/ auto diff MCH pg 26.0 35.0 35.0 FINAL Tamanna noel [facility] [place], [address] [place] [id number] 0 Phone: () - 07/05 CBC w/ auto diff MCHC g/dL 30.0 35.0 33.5 FINAL Tamanna noel [facility] - [place], [address] [place] [id number] 0 Phone: () - 07/05 CBC w/ auto diff MPV fL 9.5 13.4 9.5 FINAL Tamanna noel [facility] - [place], [address] [place] [id number] 0 Phone: () - 07/05 CBC w/ auto diff RDW % 11.4 16.1 13.10 FINAL Tamanna noel [facility] - [place], [address] [place] [id number] 0 Phone: () - 07/05 CBC w/ auto diff WBC K/uL 3.0 8.9 10.4 High FINAL Tamanna noel [facility] [place], [address] [place] [address] [address] [place] [id number] 0 Phone: () - 07/05 CBC w/ auto diff HGB g/dL 11.3 15.2 12.4 FINAL Tamanna noel [facility] [place], [address] [place] [address] [address] [place] [id number] 0 Phone: () - 07/05 CBC w/ auto diff PLT K/uL 113.0 364.0 177 FINAL Tamanna noel [facility] - [place], [address] [place] [id number] 0 Phone: () - 07/05 CBC w/ auto diff Avtar # (ANC) K/uL 1.6 6.6 6.3 FINAL Tamanna noel [facility] [place], [address] [place] [id number] 0 Phone: () - 07/05 CBC w/ auto diff Avtar % % 43.0 74.0 61.2 FINAL Tamanna noel [facility] - [place], [address] [place] [id number] 0 Phone: () - 07/05 CBC w/ auto diff IG % % 0.0 0.5 0.7 High FINAL Tamanna noel [facility] - [place], [address] [place] [id number] 0 Phone: () - 07/05 CBC w/ auto diff IG # K/uL 0.0 0.03 0.07 High FINAL Tamanna noel [facility] - [place], [address] [place] [id number] 0 Phone: () - 07/05 CBC w/ auto diff LY % % 14.0 41.0 24.2 FINAL Tamanna noel [facility] - [place], [address] [place] [id number] 0 Phone: () - 07/05 CBC w/ auto diff MO % % 6.0 15.0 8.6 FINAL Tamanna noel [facility] [place], [address] [place] [id number] 0 Phone: () - 07/05 CBC w/ auto diff EO % % 0.0 7.0 4.5 FINAL Tamanna noel [facility] [place], [address] [place] [address] [address] [place] [id number] 0 Phone: () - 07/05 CBC w/ auto diff BA % % 0.0 2.0 0.8 FINAL Tamanna noel [facility] [place], [address] [place] [id number] 0 Phone: () - 07/05 CBC w/ auto diff LY # K/uL 0.4 3.6 2.5 FINAL Tamanna noel Oncology [facility], [address] [place] [address] [address] [facility] [id number] 0 Phone: () - 07/05 CBC w/ auto diff MO # K/uL 0.2 1.3 0.9 FINAL Tamanna noel Oncology [facility], [address] [place] [address] [address] [facility] [id number] 0 Phone: () - 07/05 CBC w/ auto diff EO # K/uL 0.0 0.6 0.5 FINAL Tamanna noel [facility], [address] [place] [address] [address] [facility] [id number] 0 Phone: () - 07/05 TSH panel TSH uIU/ml 0.32 5.0 2.46 Test performed at [facility] on a [employer] Immunoass ay Analyzer that uses an immunoenz ymometric sandwich assay for analysis. Patient testing should not be performed using multiple methodolo charles due to analytica l variation seen between test methoddanelle soto. FINAL Tamanna noel [facility] [place], [address] [place] [address] [address] [facility] [id number] 0 Phone: () - 07/05 CMP Sodiu [...] GOT IU/L 2.0 40.0 36 Test Performed by:[facility] [address] - [place], [place] [id number] e : FINAL Tamanna Rolon 07/05 [facility] [place] See attache lucero 07/13 [facility] [place] See attache lucero 08/02 TSH panel TSH uIU/ml 0.32 5.0 2.38 Test performed at [facility] on a [employer] Immunoass ay Analyzer that uses an immunoenz ymometric sandwich assay for analysis. Patient testing should not be performed using multiple hallie soto due to analytica l variation seen between test hallie soto. FINAL Tamanna Mcginnis a On[facility] - [address] [facility] [id number] 0 Phone: () - 08/02 CA 125 panel CA 125 UNITS/ ML 0.0 34.0 8.50 Test performed at [facility] on a [employer] 2000 Immunoass ay Analyzer that uses an immunoenz ymometric sandwich assay for analysis. Patient testing should not be performed using multiple methoddanelle soto due to analytica l variation seen between test methoddanelle soto. FINAL Tamanna noel [facility] [place], [address] [place] [address] 100 [facility] [id number] 0 Phone: () - 08/02 CBC w/ auto diff WBC K/uL 3.0 8.9 9.3 High FINAL Tamanna noel Oncology - [facility], [address] [place] [address] [address] [facility] [id number] 0 Phone: () - 08/02 CBC w/ auto diff HGB g/dL 11.3 15.2 12.5 FINAL [facility], [address] [place] [address] 200 [facility] [place] [id number] 0 Phone: () - 08/02 CBC w/ auto diff PLT K/uL 113.0 364.0 165 FINAL Tam[facility] noel [facility], [address] [place] [address] 200 [facility] [place] [id number] 0 Phone: () - 08/02 CBC w/ auto diff Avtar # (ANC) K/uL 1.6 6.6 5.7 FINAL Tam[facility] noel [facility], [address] [place] [address] 200 [facility] [place] [id number] 0 Phone: () - 08/02 CBC w/ auto diff Avtar % % 43.0 74.0 61.0 FINAL Tam[facility] noel [facility], [address] [place] [address] 200 [facility] [place] [id number] 0 Phone: () - 08/02 CBC w/ auto diff IG % % 0.0 0.5 0.6 High FINAL Tamanna noel [facility], [address] [place] [address] 200 [facility] [place] [id number] 0 Phone: () - 08/02 CBC w/ auto diff IG # K/uL 0.0 0.03 0.06 High FINAL Tamanna noel [facility] [place], [address] [place] [address] [address] [place] [id number] 0 Phone: () - 08/02 CBC w/ auto diff LY % % 14.0 41.0 24.1 FINAL Tamanna noel [facility] [place], [address] [place] [address] [address] [place] [id number] 0 Phone: () - 08/02 CBC w/ auto diff MO % % 6.0 15.0 8.4 FINAL Tamanna noel [facility] [place], [address] [place] [address] [address] [place] [id number] 0 Phone: () - 08/02 CBC w/ auto diff EO % % 0.0 7.0 5.1 FINAL Tamanna noel [facility] [place], [address] [place] [address] [address] [place] [id number] 0 Phone: () - 08/02 CBC w/ auto diff BA % % 0.0 2.0 0.8 FINAL Tamanna noel [facility] [place], [address] [place] [address] [address] [place] [id number] 0 Phone: () - 08/02 CBC w/ auto diff LY # K/uL 0.4 3.6 2.2 FINAL Tamanna noel [facility] [place], [address] [place] [address] [address] [place] [id number] 0 Phone: () - 08/02 CBC w/ auto diff MO # K/uL 0.2 1.3 0.8 FINAL Tamanna noel [facility] [place], [address] [place] [address] [address] [place] [id number] 0 Phone: () - 08/02 CBC w/ auto diff EO # K/uL 0.0 0.6 0.5 FINAL Tamanna noel [facility] [place], [address] [place] [address] [address] [place] [id number] 0 Phone: () - 08/02 CBC w/ auto diff BA # K/uL 0.0 0.2 0.1 FINAL Tamanna noel [facility] [place], [address] [place] [address] [address] [place] [id number] 0 Phone: () - 08/02 CBC w/ auto diff NRBC % #/100W BC 0.0 0.2 0.0 FINAL Tamanna noel [facility] [place], [address] [place] [address] [address] [place] [id number] 0 Phone: () - 08/02 CBC w/ auto diff RBC M/uL 3.9 5.1 3.55 Low FINAL Tamanna noel [facility] [place], [address] [place] [address] [address] [place] [id number] 0 Phone: () - 08/02 CBC w/ auto diff HCT % 35.0 48.0 37.3 FINAL Tamanna noel [facility] [place], [address] [place] [address] [address] [place] [id number] 0 Phone: () - 08/02 CBC w/ auto diff MCV fL 80.0 104.0 105.1 High FINAL Tamanna noel [facility] [place], [address] [place] [address] [address] [place] [id number] 0 Phone: () - 08/02 CBC w/ auto diff MCH pg 26.0 35.0 35.2 High FINAL Tamanna noel [facility] [place], [address] [place] [address] [address] [place] [id number] 0 Phone: () - 08/02 CBC w/ auto diff MCHC g/dL 30.0 35.0 33.5 FINAL Tamanna noel [facility] [place], [address] [place] [address] [address] [place] [id number] 0 Phone: () - 08/02 CBC w/ auto diff MPV fL 9.5 13.4 9.6 FINAL Tamanna noel [facility] [place], [address] [place] [address] [address] [place] [id number] 0 Phone: () - 08/02 CBC w/ auto diff RDW % 11.4 16.1 13.00 FINAL Tamanna noel [facility] - [place], [address] [place] [id number] 0 Phone: () - 08/02 CMP Sodiu m mmol/L 135.0 145.0 132 Low FINAL Tamannanithin Rolon 08/02 CMP Potas sium mmol/L 3.5 5.0 4.6 FINAL Tamanna Kenny 08/02 CMP Chlor sathish mmol/L 98.0 110.0 96 Low FINAL Tamanna Kenny 08/02 CMP CO2 mmol/L 21.0 31.0 28 FINAL Tamanna Kenny 08/02 CMP Anion gap, mmol/ L 5.0 18.0 8.0% FINAL Tamanna Kenny 08/02 CMP Gluco se mg/dL 65.0 100.0 97 FINAL Tamanna Kenny 08/02 CMP Calci um mg/dL 8.5 10.5 9.1 FINAL Tamanna Kenny 08/02 CMP BUN mg/dL 8.0 25.0 12 FINAL Tamanna Kenny 08/02 CMP Creat inine mg/dL 0.57 1.11 1.00 FINAL Tamanna Kenny 08/02 CMP BUN/C reati nine ratio 10.0 20.0 12.0% FINAL Tamanna Gonzales 08/02 CMP GFR Afric an Ameri can, estim ated ml/min /1.73m 2 >60 FINAL Tamanna Kenny 08/02 CMP GFR non-A frica n Ameri can, estim ated ml/min /1.73m 2 55 Low FINAL Tamanna Kenny 08/02 CMP Album in g/dL 3.2 4.6 4.2 FINAL Tamanna Kenny 08/02 CMP Total prote in g/dL 6.0 8.0 7.2 FINAL Tamanna Kenny 08/02 CMP Globu samreen g/dL 2.0 3.7 3.0 FINAL Tamanna Kenny 08/02 CMP A/G ratio 1.0 2.0 1.4% FINAL Tamanna Kenny 08/02 CMP Bilir ubin, total mg/dL 0.2 1.2 0.6 FINAL Tamanna Kenny 08/02 CMP Alkal ine phosp hatas e IU/L 50.0 136.0 65 FINAL Tamanna Rolon 08/02 CMP ALT/S GPT IU/L 8.0 45.0 19 FINAL Tamanna Rolon 08/02 CMP AST/S GOT IU/L 2.0 40.0 32 Test Performed by:[facility] [address] - [facility] [place], [place] [id number] e : FINAL Tamanna Rolon 08/02 [facility] [place] See product director d 08/13 [place] other lab See product director d 08/30 TSH panel TSH uIU/ml 0.32 5.0 2.25 Test performed at [facility] on a [employer] 2000 Immunoass ay Analyzer that uses an immunoenz ymometric sandwich assay for analysis. Patient testing should not be performed using multiple methodolo gies due to analytica l variation seen between test methodolo charles. FINAL Tamanna noel Oncology [facility], [address] [facility] [address] [facility] [id number] 0 Phone: () - 08/30 CBC w/ auto diff WBC K/uL 3.0 8.9 8.8 FINAL Tamanna noel [facility], [address] [place] [id number] 0 Phone: () - 08/30 CBC w/ auto diff HGB g/dL 11.3 15.2 12.3 FINAL Tamanna noel [facility], [address] [place] [id number] 0 Phone: () - 08/30 CBC w/ auto diff PLT K/uL 113.0 364.0 161 FINAL Tamanna noel Oncology [facility], [address] [facility] [address] [place] [id number] 0 Phone: () - 08/30 CBC w/ auto diff Avtar # (ANC) K/uL 1.6 6.6 5.6 FINAL Tamanna noel Oncology [facility], [address] [place] [address] [address] [place] [id number] 0 Phone: () - 08/30 CBC w/ auto diff Avtar % % 43.0 74.0 62.9 FINAL Tamanna noel [facility] [place], [address] [place] [address] [address] [place] [id number] 0 Phone: () - 08/30 CBC w/ auto diff IG % % 0.0 0.5 0.5 FINAL Tamanna noel [facility] [place], [address] [place] [address] [address] [place] [id number] 0 Phone: () - 08/30 CBC w/ auto diff IG # K/uL 0.0 0.03 0.04 High FINAL Tamanna noel [facility] [place], [address] [place] [address] [address] [place] [id number] 0 Phone: () - 08/30 CBC w/ auto diff LY % % 14.0 41.0 23.7 FINAL Tamanna noel [facility] - [place], [address] [place] [id number] 0 Phone: () - 08/30 CBC w/ auto diff MO % % 6.0 15.0 7.2 FINAL Tamanna noel [facility] - [place], [address] [place] [id number] 0 Phone: () - 08/30 CBC w/ auto diff EO % % 0.0 7.0 5.1 FINAL Tamanna noel [facility] - [place], [address] [place] [id number] 0 Phone: () - 08/30 CBC w/ auto diff BA % % 0.0 2.0 0.6 FINAL Tamanna noel [facility] - [place], [address] [place] [address] [address] [place] [id number] 0 Phone: () - 08/30 CBC w/ auto diff LY # K/uL 0.4 3.6 2.1 FINAL Tamanna noel [facility] - [place], [address] [place] [address] [address] [place] [id number] 0 Phone: () - 08/30 CBC w/ auto diff MO # K/uL 0.2 1.3 0.6 FINAL Tamanna noel [facility] - [place], [address] [place] [address] [address] [place] [id number] 0 Phone: () - 08/30 CBC w/ auto diff EO # K/uL 0.0 0.6 0.5 FINAL Tamanna noel [facility] [place] [facility], [address] [place] [address] 200 [place] [id number] 0 Phone: () - 08/30 CBC w/ auto diff BA # K/uL 0.0 0.2 0.1 FINAL Tamanna noel [facility] - [place], [address] [place] [address] 200 [place] [id number] 0 Phone: () - 08/30 CBC w/ auto diff NRBC % #/100W BC 0.0 0.2 0.0 FINAL Tamanna noel [facility] - [place] [facility], [address] [place] [address] 200 [place] [id number] 0 Phone: () - 08/30 CBC w/ auto diff RBC M/uL 3.9 5.1 3.53 Low FINAL Tamanna noel [facility] [place] [facility], [address] [place] [address] 200 [place] [id number] 0 Phone: () - 08/30 CBC w/ auto diff HCT % 35.0 48.0 37.1 FINAL Tamanna noel [facility] - [place] [facility], [address] [place] [address] 200 [place] [id number] 0 Phone: () - 08/30 CBC w/ auto diff MCV fL 80.0 104.0 105.1 High FINAL Tamanna noel [facility] - [place] [facility], [address] [place] [address] 200 [place] [id number] 0 Phone: () - 08/30 CBC w/ auto diff MCH pg 26.0 35.0 34.8 FINAL Tamanna noel [facility] [place] [facility], [address] [place] [address] 200 [place] [id number] 0 Phone: () - 08/30 CBC w/ auto diff MCHC g/dL 30.0 35.0 33.2 FINAL Tamanna noel [facility] - [place] [facility], [address] [place] [address] 200 [place] [id number] 0 Phone: () - 08/30 CBC w/ auto diff MPV fL 9.5 13.4 9.7 FINAL Tamanna noel [facility], [address] [place] [id number] 0 Phone: () - 08/30 CBC w/ auto diff RDW % 11.4 16.1 12.40 FINAL Tamanna noel [facility], [address] [facility] [place] [id number] 0 Phone: () - 08/30 Magne sium, mg/dL mg/dL 1.5 2.3 1.5 FINAL Tamanna Mcginnis bert [facility], [address] [place] [address] [place] [address] [id number] 0 Phone: () - 08/30 CA 125 panel CA 125 UNITS/ ML 0.0 34.0 12.90 Test performed at [facility] on a [employer] Immunoass ay Analyzer that uses an immunoenz ymometric sandwich assay for analysis. Patient testing should not be performed using multiple methoddanelle soto due to analytica l variation seen between test methoddanelle soto. FINAL Tamanna noel [facility], [address] [place] [address] [place] [address] [id number] 0 Phone: () - 08/30 Retic ulocy te, absol [place] M/uL 0.02 0.08 0.08 FINAL Tamanna noel [facility], [address] [place] [address] [address] [facility] [place] [id number] 0 Phone: () - 08/30 Retic ulocy te count % 0.4 1.6 2.19 High FINAL Tamanna noel [facility], [address] [place] [address] [address] [facility] [place] [id number] 0 Phone: () - 08/30 Immat ure retic ulocy te fract ion, % % 0.0 16.5 20.20 High FINAL Tamanna noel [facility], [address] [place] [address] [address] [facility] [place] [id number] 0 Phone: () - 08/30 Retic ulocy te cellu lar hemog lobin pg 28.0 37.0 38.2 High FINAL [facility], [address] [place] [id number] 0 Phone: () - 08/30 Folat e, serum ng/mL 3.0 16.0 Folate greater than 20 FINAL Tamanna noel [facility] [place], [address] [facility] [address] [facility] [id number] 0 Phone: () - 08/30 CMP Sodiu m mmol/L 135.0 145.0 135 FINAL Tamanna Rolon 08/30 CMP Potas sium mmol/L 3.5 5.0 4.6 FINAL Tamanna Rolon 08/30 CMP Chlor sathish mmol/L 98.0 110.0 96 Low FINAL Tamanna Rolon 08/30 CMP CO2 mmol/L 21.0 31.0 32 High FINAL Tamannanithin Rolon 08/30 CMP Anion gap, mmol/ L 5.0 18.0 7.0% FINAL Tamannanithin Rolon 08/30 CMP Gluco se mg/dL 65.0 100.0 92 FINAL Tamanna Rolon 08/30 CMP Calci um mg/dL 8.5 10.5 9.1 FINAL Tamanna Rolon 08/30 CMP BUN mg/dL 8.0 25.0 [...] prote in g/dL 6.0 8.0 7.1 FINAL Tamannanithin Rolon 08/30 CMP Globu samreen g/dL 2.0 [...] GOT IU/L 2.0 40.0 30 Test Performed by:[facility] [address] - [facility], [place] [id number] e : FINAL Tamanna Rolon 08/30 Phosp horus mg/dL 2.3 4.7 2.6 Test Performed by:[facility] [address] - [facility], [place] [address]Byiq e : FINAL Tamanna Rolon 08/30 Rashida stero l mg/dL 100.0 199.0 146 FINAL Tamanna Rolon 08/30 Chemi strie s Fasti ng statu s RANDOM Test Performed by:[facility] [address] - [facility], [place] [address]Qtdy e : FINAL Tamanna Rolon 08/30 LDH U/L 120.0 246.0 184 FINAL Tamanna noel Oncology [address] [place] [address] [id number] 0 Phone: () - 09/27 Magne sium, mg/dL mg/dL 1.5 2.3 1.4 Low FINAL Tamanna Peters a Oncology [address] [place] [address] [id number] 0 Phone: () - 09/27 Retic ulocy te, absol [place] M/uL 0.02 0.08 0.09 High FINAL Tamannanithin noel Oncology [facility], [address] [place] [id number] 0 Phone: () - 09/27 Retic ulocy te count % 0.4 1.6 2.55 High FINAL Tamanna noel [facility] - [place], [address] 200 [place] [id number] 0 Phone: () - 09/27 Immat ure retic ulocy te fract ion, % % 0.0 16.5 26.30 High FINAL Tamanna noel [facility] [place] [facility], [address] 200 [place] [id number] 0 Phone: () - 09/27 Retic ulocy te cellu lar hemog lobin pg 28.0 37.0 38.2 High FINAL Tamanna noel [facility] [place] [facility], [address] [place] [address] 200 [place] [id number] 0 Phone: () - 09/27 CBC w/ auto diff WBC K/uL 3.0 8.9 10.3 High FINAL Tamanna noel [facility] [place] [facility], [address] [place] [address] 200 [place] [id number] 0 Phone: () - 09/27 CBC w/ auto diff HGB g/dL 11.3 15.2 12.9 FINAL Tamanna noel [facility] - [place] [facility], [address] [place] [address] 200 [place] [id number] 0 Phone: () - 09/27 CBC w/ auto diff PLT K/uL 113.0 364.0 190 FINAL Tamanna noel [facility] - [place] [facility], [address] [place] [address] 200 [place] [id number] 0 Phone: () - 09/27 CBC w/ auto diff Avtar # (ANC) K/uL 1.6 6.6 6.7 High FINAL Tamanna noel [facility] [place] [facility], [address] [place] [address] 200 [place] [id number] 0 Phone: () - 09/27 CBC w/ auto diff Avtar % % 43.0 74.0 64.3 FINAL Tamanna noel [facility] - [place] [facility], [address] [place] [address] [address] [place] [id number] 0 Phone: () - 09/27 CBC w/ auto diff IG % % 0.0 0.5 0.7 High FINAL Tamanna noel [facility] - [place], [address] [place] [address] [address] [place] [id number] 0 Phone: () - 09/27 CBC w/ auto diff IG # K/uL 0.0 0.03 0.07 High FINAL Tamanna noel [facility] [place] [facility], [address] [place] [address] [address] [place] [id number] 0 Phone: () - 09/27 CBC w/ auto diff LY % % 14.0 41.0 23.6 FINAL Tamanna noel [facility] - [place] [facility], [address] [place] [id number] 0 Phone: () - 09/27 CBC w/ auto diff MO % % 6.0 15.0 6.8 FINAL Tamanna noel [facility] - [place] [facility], [address] [place] [id number] 0 Phone: () - 09/27 CBC w/ auto diff EO % % 0.0 7.0 4.1 FINAL Tamanna noel [facility] - [place] [facility], [address] [place] [id number] 0 Phone: () - 09/27 CBC w/ auto diff BA % % 0.0 2.0 0.5 FINAL Tamanna noel [facility] - [place] [facility], [address] [place] [id number] 0 Phone: () - 09/27 CBC w/ auto diff LY # K/uL 0.4 3.6 2.4 FINAL Tamanna noel [facility] - [place] [facility], [address] [place] [id number] 0 Phone: () - 09/27 CBC w/ auto diff MO # K/uL 0.2 1.3 0.7 FINAL Tamanna noel [facility] [place] [facility], [address] [place] [address] [address] [place] [id number] 0 Phone: () - 09/27 CBC w/ auto diff EO # K/uL 0.0 0.6 0.4 FINAL Tamanna noel [facility] [place] [facility], [address] [place] [address] [address] [place] [id number] 0 Phone: () - 09/27 CBC w/ auto diff BA # K/uL 0.0 0.2 0.1 FINAL Tamanna noel [facility] - [place] [facility], [address] [place] [address] [address] [place] [id number] 0 Phone: () - 09/27 CBC w/ auto diff NRBC % #/100W BC 0.0 0.2 0.0 FINAL Tamanna noel [facility] - [place] [facility], [address] [place] [id number] 0 Phone: () - 09/27 CBC w/ auto diff RBC M/uL 3.9 5.1 3.70 Low FINAL Tamanna noel [facility] - [place] [facility], [address] [place] [id number] 0 Phone: () - 09/27 CBC w/ auto diff HCT % 35.0 48.0 38.7 FINAL Tamanna noel [facility] - [place] [facility], [address] [address] [place] [id number] 0 Phone: () - 09/27 CBC w/ auto diff MCV fL 80.0 104.0 104.6 High FINAL Tamanna noel [facility] [place], [address] [place] [id number] 0 Phone: () - 09/27 CBC w/ auto diff MCH pg 26.0 35.0 34.9 FINAL Tamanna noel [facility] [place], [address] [place] [address] [address] [place] [id number] 0 Phone: () - 09/27 CBC w/ auto diff MCHC g/dL 30.0 35.0 33.3 FINAL Tamanna noel [facility] [place], [address] [place] [address] [address] [place] [id number] 0 Phone: () - 09/27 CBC w/ auto diff MPV fL 9.5 13.4 9.1 Low FINAL Tamanna noel Oncology - [facility], [address] [place] [address] [address] [place] [id number] 0 Phone: () - 09/27 CBC w/ auto diff RDW % 11.4 16.1 12.40 FINAL Tamanna noel [facility], [address] [place] [address] [address] [place] [id number] 0 Phone: () - 09/27 CA 125 UNITS/ ML 0.0 34.0 10.40 Test performed at [facility] on a [employer] 2000 Immunoass ay Analyzer that uses an immunoenz ymometric sandwich assay for analysis. Patient testing should not be performed using multiple methodolo gies due to analytica l variation seen between test methodolo gies. FINAL Tamanna noel [facility] - [place], [address] [place] [phone] Phone: () - 09/27 TSH uIU/ml 0.32 5.0 2.56 Test performed at [facility] on a [employer] Immunoass ay Analyzer that uses an immunoenz ymometric sandwich assay for analysis. Patient testing should not be performed using multiple methodolo gies due to analytica l variation seen between test methodolo gies. FINAL Tamanna noel [address] [phone] Phone: () - 09/27 Rashida stero l mg/dL 100.0 199.0 148 FINAL Tamanna Rolon 09/27 Chemi strie s Fasti ng statu s RANDOM Test Performed by:[facility] [address], [address] - [place], [place] [address]Raoe e : FINAL Tamanna Rolon 09/27 Phosp horus mg/dL 2.3 4.7 2.8 Test Performed by:[facility] [address], [address] - [place], [place] [address]Zupb e : FINAL Tamanna Rolon 09/27 CMP Sodiu m mmol/L 135.0 145.0 131 Low FINAL Tamanna Rolon 09/27 CMP Potas sium mmol/L 3.5 5.0 4.6 FINAL [facility] 09/27 CMP Chlor sathish mmol/L 98.0 110.0 92 Low FINAL [facility] 09/27 CMP CO2 mmol/L 21.0 31.0 29 FINAL [facility] 09/27 CMP Anion gap, mmol/ L 5.0 18.0 10.0% FINAL [facility] 09/27 CMP Gluco se mg/dL 65.0 100.0 96 FINAL [facility] 09/27 CMP Calci um mg/dL 8.5 10.5 9.0 FINAL [facility] 09/27 CMP BUN mg/dL 8.0 25.0 11 FINAL [facility] 09/27 CMP Creat inine mg/dL 0.57 1.11 1.09 FINAL [facility] 09/27 CMP BUN/C reati nine ratio 10.0 20.0 10.0% FINAL [facility] 09/27 CMP GFR Afric an Ameri can, estim ated ml/min /1.73m 2 60 Low FINAL [facility] 09/27 CMP GFR non-A frica n Ameri can, estim ated ml/min /1.73m 2 50 Low FINAL [facility] 09/27 CMP Album in g/dL 3.2 4.6 4.0 [facility] 09/27 CMP Total prote in g/dL 6.0 8.0 7.0 FINAL [facility] 09/27 CMP Globu samreen g/dL 2.0 3.7 3.0 FINAL [facility] 09/27 CMP A/G ratio 1.0 2.0 1.3% FINAL [facility] 09/27 CMP Bilir ubin, total mg/dL 0.2 1.2 0.4 [facility] 09/27 CMP Alkal ine phosp hatas e IU/L 50.0 136.0 70 FINAL [facility] 09/27 CMP ALT/S GPT IU/L 8.0 45.0 16 [facility] 09/27 CMP AST/S GOT IU/L 2.0 40.0 25 Test Performed by:[facility] [address], [address] - [place], [place] [address]Ydor e : FINAL Tamanna Rolon 09/27 LDH U/L 120.0 246.0 176 FINAL Tamanna noel [facility] - [place], [address] [place] [address] [address] [facility] [phone] 0 Phone: () - 09/27 Folat e, serum ng/mL 3.0 16.0 17.4 High FINAL Tamanna noel [facility] - [place], [address] [place] [address] [address] [place] [id number] 0 Phone: () - 10/25 CBC w/ auto diff WBC K/uL 3.0 8.9 9.3 High FINAL Tamanna noel On[facility] - [facility], [address] [place] [id number] 0 Phone: () - 10/25 CBC w/ auto diff HGB g/dL 11.3 15.2 12.9 FINAL Tamanna noel [facility] - [facility], [address] [place] [id number] 0 Phone: () - 10/25 CBC w/ auto diff PLT K/uL 113.0 364.0 162 FINAL Tamanna noel [facility] - [facility], [address] [place] [id number] 0 Phone: () - 10/25 CBC w/ auto diff Avtar # (ANC) K/uL 1.6 6.6 6.1 FINAL Tamanna noel [facility] - [facility], [address] [place] [id number] 0 Phone: () - 10/25 CBC w/ auto diff Avtar % % 43.0 74.0 64.9 FINAL [facility], [address] [place] [address] [address] [place] [id number] 0 Phone: () - 10/25 CBC w/ auto diff IG % % 0.0 0.5 0.5 FINAL Tamanna noel [facility] [place], [address] [place] [address] [address] [place] [id number] 0 Phone: () - 10/25 CBC w/ auto diff IG # K/uL 0.0 0.03 0.05 High FINAL Tamanna noel [facility] [place], [address] [place] [address] [address] [place] [id number] 0 Phone: () - 10/25 CBC w/ auto diff LY % % 14.0 41.0 22.9 FINAL Tamanna noel [facility] [place], [address] [place] [address] [address] [place] [id number] 0 Phone: () - 10/25 CBC w/ auto diff MO % % 6.0 15.0 7.1 FINAL Tamanna noel [facility] [place], [address] [place] [address] [address] [place] [id number] 0 Phone: () - 10/25 CBC w/ auto diff EO % % 0.0 7.0 4.2 FINAL Tamanna noel [facility] [place], [address] [place] [address] [address] [place] [id number] 0 Phone: () - 10/25 CBC w/ auto diff BA % % 0.0 2.0 0.4 FINAL Tamanna noel [facility] [place], [address] [place] [address] [address] [place] [id number] 0 Phone: () - 10/25 CBC w/ auto diff LY # K/uL 0.4 3.6 2.1 FINAL Tamanna noel [facility] [place], [address] [place] [address] [address] [place] [id number] 0 Phone: () - 10/25 CBC w/ auto diff MO # K/uL 0.2 1.3 0.7 FINAL Tamanna noel [facility] - [place], [address] [place] [address] [address] [place] [id number] 0 Phone: () - 10/25 CBC w/ auto diff EO # K/uL 0.0 0.6 0.4 FINAL Tamanna noel [facility] - [place], [address] 200 [place] [id number] 0 Phone: () - 10/25 CBC w/ auto diff BA # K/uL 0.0 0.2 0.0 FINAL Tamanna noel [facility] - [place], [address] 200 [place] [id number] 0 Phone: () - 10/25 CBC w/ auto diff NRBC % #/100W BC 0.0 0.2 0.0 FINAL Tamanna noel [facility] [place], [address] 200 [place] [id number] 0 Phone: () - 10/25 CBC w/ auto diff RBC M/uL 3.9 5.1 3.70 Low FINAL Tamanna noel [facility] [place] [facility], [address] [place] [address] 200 [place] [id number] 0 Phone: () - 10/25 CBC w/ auto diff HCT % 35.0 48.0 39.0 FINAL Tamanna noel [facility] - [place], [address] 200 [place] [id number] 0 Phone: () - 10/25 CBC w/ auto diff MCV fL 80.0 104.0 105.4 High FINAL Tamanna noel [facility] [place] [facility], [address] [place] [address] 200 [place] [id number] 0 Phone: () - 10/25 CBC w/ auto diff MCH pg 26.0 35.0 34.9 FINAL Tamanna noel [facility] - [place], [address] [place] [id number] 0 Phone: () - 10/25 CBC w/ auto diff MCHC g/dL 30.0 35.0 33.1 FINAL Tamanna noel [facility] [place] [facility], [address] [place] [id number] 0 Phone: () - 10/25 CBC w/ auto diff MPV fL 9.5 13.4 9.8 FINAL Tamanna noel [facility] - [place], [address] [place] [id number] 0 Phone: () - 10/25 CBC w/ auto diff RDW % 11.4 16.1 13.10 FINAL Tamanna noel [facility], [address] 200 [facility] [id number] 0 Phone: () - 10/25 Magne sium, mg/dL mg/dL 1.5 2.3 1.9 FINAL Tamanna noel [address] 100 [facility] [id number] 0 Phone: () - 10/25 CA 125 panel CA 125 UNITS/ ML 0.0 34.0 6.90 Test performed at [facility] on a [employer] 2000 Immunoass ay Analyzer that uses an immunoenz ymometric sandwich assay for analysis. Patient testing should not be performed using multiple methodolo gies due to analytica l variation seen between test methodolo gies. FINAL Tamanna noel [address] 100 [facility] [phone] 0 Phone: () - 10/25 TSH uIU/ml 0.32 5.0 2.28 Test performed at [facility] on a [employer] 2000 Immunoass ay Analyzer that uses an immunoenz ymometric sandwich assay for analysis. Patient testing should not be performed using multiple methodolo gies due to analytica l variation seen between test methodolo gies. [facility] Tamanna noel [address] [phone] 0 Phone: () - 10/25 Retic ulocy te, absol angoon M/uL 0.02 0.08 0.08 FINAL Tamanna noel [facility], [address] 200 [facility] [id number] 0 Phone: () - 10/25 Retic ulocy te count % 0.4 1.6 2.29 High [facility] Tamanna noel [facility], [address] 200 [facility] [id number] 0 Phone: () - 10/25 Immat ure retic ulocy te fract ion, % % 0.0 16.5 18.50 High FINAL Tamanna noel [facility] [place], [address] [place] [address] [address] [place] [id number] 0 Phone: () - 10/25 Retic ulocy te cellu lar hemog lobin pg 28.0 37.0 38.2 High FINAL Tamanna noel [facility] [place], [address] [place] [address] [address] [place] [id number] 0 Phone: () - 10/25 CMP Sodiu m mmol/L 135.0 145.0 132 Low FINAL Tamannanithin Rolon 10/25 CMP Potas sium mmol/L 3.5 5.0 4.7 FINAL Tamanna Gonzales 10/25 CMP Chlor sathish mmol/L 98.0 110.0 95 Low FINAL Tamanna Kenny 10/25 CMP CO2 mmol/L 21.0 31.0 26 FINAL Tamanna Gonzales 10/25 CMP Anion gap, mmol/ L 5.0 18.0 11.0% FINAL Tamanna Kenny 10/25 CMP Gluco se mg/dL 65.0 100.0 100 FINAL Tamanna Kenny 10/25 CMP Calci um mg/dL 8.5 10.5 8.5 FINAL Tamanna Kenny 10/25 CMP BUN mg/dL 8.0 25.0 23 FINAL Tamanna Kenny 10/25 CMP Creat inine mg/dL 0.57 1.11 1.15 High FINAL Tamanna Gonzales 10/25 CMP BUN/C reati nine ratio 10.0 20.0 20.0% FINAL Tamanna Gonzales 10/25 CMP GFR Afric an Ameri can, estim ated ml/min /1.73m 2 56 Low FINAL Tamanna Gonzales 10/25 CMP GFR non-A frica n Ameri can, estim ated ml/min /1.73m 2 47 Low FINAL Tamanna Gonzales 10/25 CMP Album in g/dL 3.2 4.6 4.0 FINAL [facility] 10/25 CMP Total prote in g/dL 6.0 8.0 6.8 FINAL Tamanna Rolon 10/25 CMP Globu samreen g/dL 2.0 3.7 2.8 FINAL Tamanna Rolon 10/25 CMP A/G ratio 1.0 2.0 1.4% FINAL Tamanna Rolon 10/25 CMP Bilir ubin, total mg/dL 0.2 1.2 0.6 FINAL Tamanna Rolon 10/25 CMP Alkal ine phosp hatas e IU/L 50.0 136.0 74 FINAL Tamanna Rolon 10/25 CMP ALT/S GPT IU/L 8.0 45.0 17 FINAL Tamanna Rolon 10/25 CMP AST/S GOT IU/L 2.0 40.0 29 Test Performed by:[facility] [address] - [facility], [place] [address]Aacq e [phone] FINAL Tamanna Rolon 10/25 Rashida stero l mg/dL 100.0 199.0 142 FINAL Tamanna Rolon 10/25 Chemi strie s Fasti ng statu s RANDOM Test Performed by:[facility] [address] - [facility], [place] [address]Wdhd e : FINAL Tamanna Rolon 10/25 Phosp horus mg/dL 2.3 4.7 3.3 Test Performed by:[facility] [address] - [facility], [place] [address]Lccd e [phone] ELKE Rolon 10/25 Folat e, serum ng/mL 3.0 16.0 Folate greater than 20 FINAL Tamanna noel [facility] [address] [place] [address] [place] [id number] 0 Phone: () - 10/25 LDH U/L 120.0 246.0 185 FINAL Tamanna noel [facility] [address] [place] [address] [phone] 0 Phone: () - 11/22 CBC w/ auto diff LY # K/uL 0.4 3.6 1.8 FINAL Tamanna noel [facility] [place], [address] [place] [address] [address] [place] [id number] 0 Phone: () - 11/22 CBC w/ auto diff MO # K/uL 0.2 1.3 0.7 FINAL Tamanna noel [facility] - [place], [address] [place] [id number] 0 Phone: () - 11/22 CBC w/ auto diff EO # K/uL 0.0 0.6 0.4 FINAL Tamanna noel [facility] [place], [address] [place] [address] [address] [place] [id number] 0 Phone: () - 11/22 CBC w/ auto diff BA # K/uL 0.0 0.2 0.1 FINAL Tamanna noel [facility] [place], [address] [place] [id number] 0 Phone: () - 11/22 CBC w/ auto diff NRBC % #/100W BC 0.0 0.2 0.0 FINAL Tamanna noel [facility] [place], [address] [place] [id number] 0 Phone: () - 11/22 CBC w/ auto diff RBC M/uL 3.9 5.1 4.15 FINAL Tamanna noel [facility] - [place], [address] [place] [id number] 0 Phone: () - 11/22 CBC w/ auto diff HCT % 35.0 48.0 42.3 FINAL Tamanna noel [facility] - [place], [address] [place] [id number] 0 Phone: () - 11/22 CBC w/ auto diff MCV fL 80.0 104.0 101.9 FINAL Tamanna noel [facility] - [place], [address] [place] [address] [address] [place] [id number] 0 Phone: () - 11/22 CBC w/ auto diff MCH pg 26.0 35.0 33.5 FINAL Tamanna noel [facility] - [place], [address] [facility] [address] [place] [id number] 0 Phone: () - 11/22 CBC w/ auto diff MCHC g/dL 30.0 35.0 32.9 FINAL Tamanna noel [facility] [place], [address] [place] [address] 200 [place] [id number] 0 Phone: () - 11/22 CBC w/ auto diff MPV fL 9.5 13.4 9.3 Low FINAL Tamanna noel [facility] [place], [address] [place] [address] 200 [place] [id number] 0 Phone: () - 11/22 CBC w/ auto diff RDW % 11.4 16.1 12.70 FINAL Tamanna noel [facility] [place], [address] [place] [address] 200 [place] [id number] 0 Phone: () - 11/22 CBC w/ auto diff WBC K/uL 3.0 8.9 8.8 FINAL Tamanna noel [facility] [place], [address] [place] [address] 200 [place] [id number] 0 Phone: () - 11/22 CBC w/ auto diff HGB g/dL 11.3 15.2 13.9 FINAL Tamanna noel [facility] [place], [address] [place] [address] 200 [place] [id number] 0 Phone: () - 11/22 CBC w/ auto diff PLT K/uL 113.0 364.0 197 FINAL Tamanna noel [facility] [place], [address] [place] [address] 200 [place] [id number] 0 Phone: () - 11/22 CBC w/ auto diff Avtar # (ANC) K/uL 1.6 6.6 5.8 FINAL Tamanna noel [facility] [place], [address] [place] [address] 200 [place] [id number] 0 Phone: () - 11/22 CBC w/ auto diff Avtar % % 43.0 74.0 66.0 FINAL Tamanna noel [facility] [place], [address] [place] [address] 200 [place] [id number] 0 Phone: () - 11/22 CBC w/ auto diff IG % % 0.0 0.5 0.5 FINAL Tam[facility] noel [facility], [address] [place] [address] 200 [facility] [place] [id number] 0 Phone: () - 11/22 CBC w/ auto diff IG # K/uL 0.0 0.03 0.04 High FINAL Tamanna noel [facility], [address] [place] [address] 200 [facility] [place] [id number] 0 Phone: () - 11/22 CBC w/ auto diff LY % % 14.0 41.0 20.2 FINAL Tamanna noel Oncology - [facility], [address] [place] [address] 200 [facility] [place] [id number] 0 Phone: () - 11/22 CBC w/ auto diff MO % % 6.0 15.0 7.8 FINAL Tamanna noel Oncology - [facility], [address] [place] [address] 200 [facility] [place] [id number] 0 Phone: () - 11/22 CBC w/ auto diff EO % % 0.0 7.0 4.9 FINAL Tamanna noel On[facility] - [facility], [address] [place] [address] 200 [facility] [place] [id number] 0 Phone: () - 11/22 CBC w/ auto diff BA % % 0.0 2.0 0.6 FINAL Tamanna noel On[facility] - [facility], [address] [place] [address] 200 [facility] [place] [id number] 0 Phone: () - 11/22 CMP Album in g/dL 3.2 5.2 4.5 FINAL Tamanna noel On[facility] [address] [id number] [phone] Phone: () - 11/22 CMP Alkal ine phosp hatas e U/L 46.0 116.0 67 FINAL Tamanna noel [facility] [address] [id number] 0 Phone: () - 11/22 CMP ALT/S GPT U/L 7.0 40.0 13 FINAL Tamanna Peters [address] [id number] 0 Phone: () - 11/22 CMP AST/S GOT U/L 13.0 40.0 20 FINAL Tamanna Peters [address] [id number] 0 Phone: () - 11/22 CMP BUN mg/dL 9.0 23.0 20 [facility] Tamanna Mcginnis[address] [id number] 0 Phone: () - 11/22 CMP Calci um mg/dL 8.7 10.4 9.1 [facility] Tamanna Mcginnis[address] [id number] 0 Phone: () - 11/22 CMP Chlor sathish mmol/L 96.0 114.0 96 FINAL Tamanna Rolon [address] [id number] 0 Phone: () - 11/22 CMP CO2 mmol/L 20.0 31.0 27 [facility] Tamanna Rolon [address] [id number] 0 Phone: () - 11/22 CMP Creat inine mg/dL 0.5 1.2 1.06 [facility] Tamanna Mcginnis[address] [id number] 0 Phone: () - 11/22 CMP GFR estim ate ml/min /1.73m ^2 52.8 Low GFR is calculate d using the CKD-EPI equation. FINAL Tamanna Rolon [address] [id number] 0 Phone: () - 11/22 CMP Gluco se mg/dL 73.0 126.0 94 [facility] [address] [id number] 0 Phone: () - 11/22 CMP Potas sium mmol/L 3.5 5.1 5.0 FINAL Tamanna noel [address] [id number] 0 Phone: () - 11/22 CMP Sodiu m mmol/L 136.0 145.0 130 Low FINAL Tamanna noel [address] 100 [facility] [id number] 0 Phone: () - 11/22 CMP Bilir ubin, total mg/dL 0.3 1.2 0.5 FINAL Tamanna noel [address] 100 [facility] [id number] 0 Phone: () - 11/22 CMP Total prote in g/dL 5.7 8.2 6.7 FINAL Tamanna noel [address] [id number] 0 Phone: () - 11/22 CA 125 panel CA 125 UNITS/ ML 0.0 34.0 8.10 Test performed at [facility] on a [employer] Immunoass ay Analyzer that uses an immunoenz ymometric sandwich assay for analysis. Patient testing should not be performed using multiple hallie soto due to analytica l variation seen between test hallie soto. FINAL Tamanna noel [address] [phone] 0 Phone: () - 11/22 [facility] [place] See product director d 11/22 [facility] [place] See product director d 11/22 [facility] [place] See product director d 02/11 CBC w/ auto diff WBC K/uL 3.0 8.9 9.2 High FINAL Tamanna noel [facility], [address] [place] [id number] 0 Phone: () - 02/11 CBC w/ auto diff HGB g/dL 11.3 15.2 13.3 FINAL Tamanna noel [facility], [address] 200 [place] [id number] 0 Phone: () - 02/11 CBC w/ auto diff PLT K/uL 113.0 364.0 267 FINAL Tamanna noel [facility] [place], [address] [place] [address] [address] [place] [id number] 0 Phone: () - 02/11 CBC w/ auto diff Avtar # (ANC) K/uL 1.6 6.6 6.1 FINAL Tamanna noel [facility] - [place], [address] [place] [id number] 0 Phone: () - 02/11 CBC w/ auto diff Avtar % % 43.0 74.0 66.8 FINAL Tamanna noel [facility] - [place], [address] 200 [place] [id number] 0 Phone: () - 02/11 CBC w/ auto diff IG % % 0.0 0.5 1.9 High FINAL Tamanna noel [facility] - [place], [address] 200 [place] [id number] 0 Phone: () - 02/11 CBC w/ auto diff IG # K/uL 0.0 0.03 0.17 High FINAL Tamanna noel [facility] - [place], [address] 200 [place] [id number] 0 Phone: () - 02/11 CBC w/ auto diff LY % % 14.0 41.0 19.2 FINAL Tamanna noel [facility] - [place], [address] 200 [place] [id number] 0 Phone: () - 02/11 CBC w/ auto diff MO % % 6.0 15.0 9.2 FINAL Tamanna noel [facility] - [place], [address] [place] [id number] 0 Phone: () - 02/11 CBC w/ auto diff EO % % 0.0 7.0 2.5 FINAL Tamanna noel [facility] - [place], [address] [place] [address] [address] [place] [id number] 0 Phone: () - 02/11 CBC w/ auto diff BA % % 0.0 2.0 0.4 FINAL Tamanna noel [facility] - [place], [address] [place] [id number] 0 Phone: () - 02/11 CBC w/ auto diff LY # K/uL 0.4 3.6 1.8 FINAL Tamanna noel [facility] - [place], [address] [place] [id number] 0 Phone: () - 02/11 CBC w/ auto diff MO # K/uL 0.2 1.3 0.8 FINAL Tamanna noel [facility] - [place], [address] [place] [id number] 0 Phone: () - 02/11 CBC w/ auto diff EO # K/uL 0.0 0.6 0.2 FINAL Tamanna noel [facility] [place] [facility], [address] 200 [place] [id number] 0 Phone: () - 02/11 CBC w/ auto diff BA # K/uL 0.0 0.2 0.0 FINAL Tamanna noel [facility] - [place], [address] [place] [id number] 0 Phone: () - 02/11 CBC w/ auto diff NRBC % #/100W BC 0.0 0.2 0.2 FINAL Tamanna noel [facility] - [place], [address] [place] [id number] 0 Phone: () - 02/11 CBC w/ auto diff RBC M/uL 3.9 5.1 4.09 FINAL Tamanna noel [facility] - [place], [address] [place] [id number] 0 Phone: () - 02/11 CBC w/ auto diff HCT % 35.0 48.0 40.6 FINAL Tamanna noel [facility] - [place], [address] [place] [id number] 0 Phone: () - 02/11 CBC w/ auto diff MCV fL 80.0 104.0 99.3 FINAL Tamanna noel [facility] - [place] [facility], [address] 200 [place] [id number] 0 Phone: () - 02/11 CBC w/ auto diff MCH pg 26.0 35.0 32.5 FINAL Tamanna noel [facility] - [place] [facility], [address] 200 [place] [id number] 0 Phone: () - 02/11 CBC w/ auto diff MCHC g/dL 30.0 35.0 32.8 FINAL Tamanna noel [facility] - [place] [facility], [address] 200 [place] [id number] 0 Phone: () - 02/11 CBC w/ auto diff MPV fL 9.5 13.4 8.6 Low FINAL Tamanna noel [facility] - [place] [facility], [address] 200 [place] [id number] 0 Phone: () - 02/11 CBC w/ auto diff RDW % 11.4 16.1 14.00 FINAL Tamanna noel [facility] - [place] [facility], [address] 200 [place] [id number] 0 Phone: () - 02/11 CMP Album in g/dL 3.2 5.2 4.3 FINAL Tamanna noel [address] [place] [id number] 0 Phone: () - 02/11 CMP Alkal ine phosp hatas e U/L 46.0 116.0 53 FINAL Tamanna noel [address] [place] [id number] 0 Phone: () - 02/11 CMP ALT/S GPT U/L 7.0 40.0 14 FINAL Tamanna noel [address] [place] [id number] 0 Phone: () - 02/11 CMP AST/S GOT U/L 13.0 40.0 22 FINAL Tamanna noel [address] [place] [id number] 0 Phone: () - 02/11 CMP BUN mg/dL 9.0 23.0 7 Low FINAL Tamanna Mcginnis[address] [id number] 0 Phone: () - 02/11 CMP Calci um mg/dL 8.7 10.4 9.6 [facility] Tamanna Mcginnis[address] [id number] 0 Phone: () - 02/11 CMP Chlor sathish mmol/L 96.0 114.0 91 Low FINAL Tamannanithin Rolon [address] [id number] 0 Phone: () - 02/11 CMP CO2 mmol/L 20.0 31.0 26 [facility] Tamanna Rolon [address] [id number] 0 Phone: () - 02/11 CMP Creat inine mg/dL 0.5 1.2 1.03 [facility] [id number] 0 Phone: () - 02/11 CMP GFR estim ate ml/min /1.73m ^2 54.5 Low GFR is calculate d using the CKD-EPI equation. [facility] Tamanna Rolon [address] [id number] [phone] Phone: () - 02/11 CMP Gluco se mg/dL 73.0 126.0 97 [facility] [id number] [phone] Phone: () - 02/11 CMP Potas sium mmol/L 3.5 5.1 4.5 [facility] Tamanna Rolon [address] [id number] [phone] Phone: () - 02/11 CMP Sodiu m mmol/L 136.0 145.0 129 Low [facility] [address] [id number] [phone] Phone: () - 02/11 CMP Bilir ubin, total mg/dL 0.3 1.2 0.4 [facility]AL [facility] [address] 100 [facility] [phone] Phone: () - 02/11 CMP Total prote in g/dL 5.7 8.2 6.6 FINAL [facility] [address] 100 [facility] [phone] Phone: () - 02/11 CA 125 panel CA 125 UNITS/ ML 0.0 34.0 8.70 Test performed at [facility] on a [facility] [employer] 2000 Immunoass ay Analyzer that uses an immunoenz ymometric sandwich assay for analysis. Patient testing should not be performed using multiple methodolo gies due to analytica l variation seen between test methodolo ginorris. FINAL Tamanna noel [facility] [address] [phone] Phone: () - 02/11 iSTAT creat inine panel Creat inine , iSTAT mg/dl 0.6 1.3 1.3 FINAL Tamanna nole [facility] - [place], [address] [place] [address] [address] [facility] [phone] 0 Phone: () - 02/11 iSTAT creat inine panel GFR estim ate ml/min /1.73m ^2 41.2 Low GFR is calculate d using the CKD-EPI equation. FINAL Tamanna noel [facility] - [place], [address] [place] [address] 200 [facility] [phone] 0 Phone: () - 02/11 Misc other lab See product director d 05/23 CBC w/ auto diff WBC K/uL 3.0 8.9 8.9 FINAL Harper noel [facility] - [place], [address] [place] [address] [address] [facility] [phone] Phone: () - 05/23 CBC w/ auto diff HGB g/dL 11.3 15.2 15.7 High FINAL Harper noel [facility] - [place], [address] [place] [address] [address] [place] [phone] 0 Phone: () - 05/23 CBC w/ auto diff PLT K/uL 113.0 364.0 220 FINAL Harper noel [facility] - [place], [address] [place] [address] 200 [place] [phone] 0 Phone: () - 05/23 CBC w/ auto diff Avtar # (ANC) K/uL 1.6 6.6 5.5 FINAL Harper Peters a [facility] - [place], [address] [place] [address] 200 [place] [id number] 0 Phone: () - 05/23 CBC w/ auto diff Avtar % % 43.0 74.0 62.5 FINAL Harper Peters a [facility] - [place], [address] 200 [place] [phone] 0 Phone: () - 05/23 CBC w/ auto diff IG % % 0.0 0.5 0.5 FINAL Harper Peters a [facility] - [place], [address] [place] [address] 200 [place] [phone] 0 Phone: () - 05/23 CBC w/ auto diff IG # K/uL 0.0 0.03 0.04 High FINAL Harper Peters a [facility] - [place], [address] 200 [place] [phone] 0 Phone: () - 05/23 CBC w/ auto diff LY % % 14.0 41.0 22.5 FINAL Harper Peters a [facility] - [place], [address] [place] [address] 200 [place] [phone] 0 Phone: () - 05/23 CBC w/ auto diff MO % % 6.0 15.0 8.0 FINAL Harper Mcginnisot a [facility] - [place], [address] [place] [address] [address] [place] [phone] 0 Phone: () - 05/23 CBC w/ auto diff EO % % 0.0 7.0 5.9 FINAL Harper Mcginnisot a [facility] - [place], [address] [place] [address] [address] [place] [id number] 0 Phone: () - 05/23 CBC w/ auto diff BA % % 0.0 2.0 0.6 FINAL Harper noel [facility] - [place] [facility], [address] [place] [address] 200 [place] [phone] 0 Phone: () - 05/23 CBC w/ auto diff LY # K/uL 0.4 3.6 2.0 FINAL Harper noel [facility] - [place] [facility], [address] [place] [address] 200 [place] [phone] 0 Phone: () - 05/23 CBC w/ auto diff MO # K/uL 0.2 1.3 0.7 FINAL Harper noel [facility] - [place] [facility], [address] [place] [address] 200 [place] [phone] 0 Phone: () - 05/23 CBC w/ auto diff EO # K/uL 0.0 0.6 0.5 FINAL Harper noel [facility] - [place] [facility], [address] [place] [address] 200 [place] [phone] 0 Phone: () - 05/23 CBC w/ auto diff BA # K/uL 0.0 0.2 0.1 FINAL Harper noel [facility] - [place] [facility], [address] [place] [address] 200 [place] [phone] 0 Phone: () - 05/23 CBC w/ auto diff NRBC % #/100W BC 0.0 0.2 0.0 FINAL Harper noel [facility] - [place] [facility], [address] [place] [address] 200 [place] [phone] 0 Phone: () - 05/23 CBC w/ auto diff RBC M/uL 3.9 5.1 4.85 FINAL Harper Mcginnis bert [facility] - [place] [facility], [address] [place] [address] 200 [place] [phone] 0 Phone: () - 05/23 CBC w/ auto diff HCT % 35.0 48.0 47.1 FINAL Harper Mcginnis bert [facility] - [place] [facility], [address] [place] [address] 200 [place] [phone] 0 Phone: () - 05/23 CBC w/ auto diff MCV fL 80.0 104.0 97.1 FINAL Harper noel [facility] - [place] [facility], [address] [place] [address] [address] [place] [id number] 0 Phone: () - 05/23 CBC w/ auto diff MCH pg 26.0 35.0 32.4 FINAL Harper noel [facility] - [place] [facility], [address] [place] [address] [address] [place] [phone] 0 Phone: () - 05/23 CBC w/ auto diff MCHC g/dL 30.0 35.0 33.3 FINAL [facility], [address] [place] [id number] 0 Phone: () - 05/23 CBC w/ auto diff MPV fL 9.5 13.4 9.1 Low FINAL Harper [facility], [facility] [address] [place] [id number] 0 Phone: () - 05/23 CBC w/ auto diff RDW % 11.4 16.1 13.00 FINAL Harper noel Oncology - [facility], [facility] [address] [place] [phone] 0 Phone: () - 05/23 CMP Album in g/dL 3.2 5.2 4.6 FINAL Harper Mcginnis bert [facility], [address] [facility] [address] [place] [address] [phone] Phone: () - 05/23 CMP Alkal ine phosp hatas e U/L 46.0 116.0 58 FINAL [facility], [address] [facility] [address] [place] [phone] 0 Phone: () - 05/23 CMP ALT/S GPT U/L 7.0 40.0 11 FINAL Harper Mcginnis bert Oncology [facility], [address] [place] [address] [phone] 0 Phone: () - 05/23 CMP AST/S GOT U/L 13.0 40.0 23 FINAL Harper noel [place] [address] [phone] Phone: () - 05/23 CMP BUN mg/dL 9.0 23.0 15 FINAL Harper noel [place] [address] [id number] 0 Phone: () - 05/23 CMP Calci um mg/dL 8.7 10.4 10.1 FINAL Harper noel [place] [address] [id number] 0 Phone: () - 05/23 CMP Chlor sathish mmol/L 96.0 114.0 88 Low FINAL Harper noel [place] [address] [phone] Phone: () - 05/23 CMP CO2 [...] 96 hour stability window. FINAL Harper noel [place] [address] [phone] Phone: () - 05/23 CMP Creat inine mg/dL 0.5 1.2 0.97 FINAL Harper noel [place] [address] [phone] 0 Phone: () - 05/23 CMP GFR estim ate ml/min /1.73m ^2 58.5 Low GFR is calculate d using the CKD-EPI equation. FINAL Harper noel [place] [address] [phone] 0 Phone: () - 05/23 CMP Gluco se mg/dL 73.0 126.0 72 Low FINAL [place] [address] [phone] 0 Phone: () - 05/23 CMP Potas sium mmol/L 3.5 5.1 4.8 [facility]AL [facility] [address] [facility] [phone] 0 Phone: () - 05/23 CMP Sodiu m mmol/L 136.0 145.0 129 Low [facility], [address] [facility] [facility] [phone] 0 Phone: () - 05/23 CMP Bilir ubin, total mg/dL 0.3 1.2 0.3 FINAL [facility], [address] [facility] [address] [facility] [phone] 0 Phone: () - 05/23 CMP Total prote in g/dL 5.7 8.2 7.3 FINAL Harper [facility] [address] [phone] 0 Phone: () - 05/23 CA 125 panel CA 125 UNITS/ ML 0.0 34.0 7.00 Test performed at [facility] on a [employer] Immunoass ay Analyzer that uses an immunoenz ymometric sandwich assay for analysis. Patient testing should not be performed using multiple hallie soto due to analytica l variation seen between test hallie soto. [facility]AL [facility], [address] [phone] 0 Phone: () - 05/23 [facility] [place] See product director d 08/11 [facility] [place] See product director d 11/10 [facility] [place] See product director d 11/14 [facility] [place] See product director d 11/16 [facility] [place] See product director d 02/17 [facility] [place] See product director d 03/11 [facility] [place] See product director d 03/24 [facility] [place] See product director d 04/07 [facility] [place] See product director d 05/18 CA 125 panel CA 125 UNITS/ ML 0.0 34.0 9.50 Test performed at [facility] on a [employer] 2000 Immunoass ay Analyzer that uses an immunoenz ymometric sandwich assay for analysis. Patient testing should not be performed using multiple methodolo gies due to analytica l variation seen between test methodolo gies. FINAL Harper Peters a [facility] - [place] [address] [facility] [address] [phone] 0 Phone: () - 11/06 [facility] [place] See product director d 11/14 CA 125 panel CA 125 UNITS/ ML 0.0 34.0 12.60 Test performed at [facility] on a [employer] 2000 Immunoass ay Analyzer that uses an immunoenz ymometric sandwich assay for analysis. Patient testing should not be performed using multiple methodolo gies due to analytica l variation seen between test methodolo gies. FINAL Harper Wheeler ybuy a Oncology - [place] [address] [phone] 0 Phone: () - 02/20 [facility] [place] See product director d 05/23 CA 125 panel CA 125 UNITS/ ML 0.0 34.0 10.30 Test performed at [facility] on a [employer] 2000 Immunoass ay Analyzer that uses an immunoenz ymometric sandwich assay for analysis. Patient testing should not be performed using multiple methodolo gies due to analytica l variation seen between test methodolo gies. FINAL Pippa worthington ybuy a Oncology - [place] [address] [phone] 0 Phone: () - 09/04 [facility] [place] See product director d 09/07 CA 125 panel CA 125 UNITS/ ML 0.0 34.0 9.80 Test performed at [facility] on a [employer] 2000 Immunoass ay Analyzer that uses an immunoenz ymometric sandwich assay for analysis. Patient testing should not be performed using multiple methodolo gies due to analytica l variation seen between test methodolo gies. FINAL Theresa worthington ybuy a [facility] - [place], [facility] [address] [facility] [address] [place] [address] [phone] 0 Phone: () - 03/17 CA 125 panel CA 125 U/ML 0.0 35.0 12.40 Test performed at [facility] on a [employer]0 Immunoass ay Analyzer that uses an immunomet negro immunoass ay technique . Patient testing should not be performed using multiple methodolo gies due to analytica l variation seen between test methodolo gies. FINAL Theresa worthington * [facility] a [facility], [address] [place] [address] [address] [phone] 0 09/15 CA 125 panel CA 125 U/ML 0.0 35.0 8.60 Test performed at [facility] on a [employer] 7600 Immunoass ay Analyzer that uses an immunomet negro immunoass ay technique . Patient testing should not be performed using multiple methodolo gies due to analytica l variation seen between test methodolo gies. FINAL Pippa Kenney r * [facility] , [address] [place] [address] [address] [phone] 0 03/17 CA 125 panel CA 125 U/ML 0.0 35.0 8.90 Test performed at [facility] on a [employer]0 Immunoass ay Analyzer that uses an immunomet negro immunoass ay technique . Patient testing should not be performed using multiple methodolo gies due to analytica l variation seen between test methodolo gies. 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/23 [id number] invest IV intrave nous 480.0 mg [...] hernia Active Vital Signs Date Type Value 12/22/2019 Body Temperature 98.20 12/22/2019 Heart Beat 80.00 12/22/2019 Respiratory Rate 22.00 12/22/2019 Oxygen Saturation 95.00 12/22/2019 BSA 2.03 12/22/2019 Pain Scale 0.00 12/22/2019 Weight 215.00 12/22/2019 Height 64.50 12/22/2019 BMI 36.33 12/22/2019 Intravascular Systolic 142 12/22/2019 Intravascular Diastolic 84 01/19/2020 Intravascular Systolic 140 01/19/2020 Intravascular Diastolic 82 01/19/2020 Respiratory Rate 16.00 01/19/2020 Pain Scale 0.00 01/19/2020 Weight 221.00 01/19/2020 Height 64.50 01/19/2020 BMI 37.35 01/19/2020 BSA 2.05 01/19/2020 Body Temperature 98.60 01/19/2020 Heart Beat 86.00 01/19/2020 Oxygen Saturation 96.00 02/16/2020 Respiratory Rate 14.00 02/16/2020 Pain Scale [...] Systolic 188 03/15/2020 Intravascular Diastolic 100 04/12/2020 Pain Scale 0.00 04/12/2020 Body Temperature 98.00 04/12/2020 BSA 2.08 04/12/2020 BMI 38.43 04/12/2020 Height 64.50 04/12/2020 Weight 227.40 04/12/2020 Intravascular Systolic 128 04/12/2020 Intravascular Diastolic 74 04/12/2020 Oxygen Saturation 98.00 04/12/2020 Respiratory Rate 16.00 04/12/2020 Heart Beat 91.00 05/10/2020 Body Temperature 97.60 05/10/2020 BMI 37.86 05/10/2020 Height 64.50 05/10/2020 Weight 224.00 05/10/2020 BSA 2.06 05/10/2020 Respiratory Rate 16.00 05/10/2020 Intravascular Systolic 152 05/10/2020 Intravascular Diastolic 84 05/10/2020 Oxygen Saturation 93.00 05/10/2020 Heart Beat 67.00 05/10/2020 Pain Scale 0.00 06/07/2020 Body Temperature 98.20 06/07/2020 Heart Beat [...] Intravascular Diastolic 64 08/02/2020 BSA 2.06 08/02/2020 Respiratory Rate 14.00 08/02/2020 Pain Scale 0.00 08/02/2020 Weight 222.00 08/02/2020 BMI 37.52 08/02/2020 Height 64.50 08/30/2020 Body Temperature 96.80 08/30/2020 Heart Beat 80.00 08/30/2020 Oxygen Saturation 90.00 08/30/2020 Intravascular Systolic 140 08/30/2020 Intravascular Diastolic 80 08/30/2020 BSA 2.06 08/30/2020 Pain Scale 0.00 08/30/2020 Weight 223.00 08/30/2020 Height 64.50 08/30/2020 BMI 37.69 08/30/2020 Respiratory Rate 14.00 09/27/2020 Body Temperature 96.90 09/27/2020 Heart Beat 66.00 09/27/2020 BSA 2.06 09/27/2020 BMI 37.86 09/27/2020 Height 64.50 09/27/2020 Weight 224.00 09/27/2020 Pain Scale 0.00 09/27/2020 Intravascular Systolic 130 09/27/2020 Intravascular Diastolic 80 09/27/2020 Oxygen Saturation 94.00 09/27/2020 Respiratory Rate 16.00 10/25/2020 Body Temperature 97.80 10/25/2020 BSA 2.09 10/25/2020 BMI 38.90 10/25/2020 Height 64.50 10/25/2020 Oxygen Saturation 80.00 10/25/2020 Pain Scale 0.00 10/25/2020 Intravascular Systolic 132 10/25/2020 Intravascular Diastolic 78 10/25/2020 Respiratory Rate 16.00 10/25/2020 Heart Beat 71.00 10/25/2020 Weight 230.20 11/22/2020 Body Temperature 98.00 11/22/2020 Heart Beat 64.00 11/22/2020 Respiratory Rate 16.00 11/22/2020 Oxygen Saturation 92.00 11/22/2020 Intravascular Systolic 118 11/22/2020 Intravascular Diastolic 70 11/22/2020 Pain Scale 0.00 11/22/2020 Weight 223.60 11/22/2020 Height 64.50 11/22/2020 BMI 37.79 11/22/2020 BSA 2.06 02/11/2021 Height 64.50 02/11/2021 Weight 229.00 02/11/2021 Pain Scale 0.00 02/11/2021 Respiratory Rate 16.00 02/11/2021 Intravascular Systolic 114 02/11/2021 Intravascular Diastolic 60 02/11/2021 BSA 2.08 02/11/2021 Body Temperature 98.20 02/11/2021 Heart Beat 72.00 02/11/2021 Oxygen Saturation 86.00 02/11/2021 BMI 38.70 05/23/2021 Intravascular Systolic 122 05/23/2021 Intravascular Diastolic 68 05/23/2021 Body Temperature 98.00 05/23/2021 Oxygen Saturation 84.00 05/23/2021 Heart Beat 71.00 05/23/2021 Respiratory Rate 14.00 05/23/2021 BSA 2.09 05/23/2021 BMI 38.87 05/23/2021 Height 64.50 05/23/2021 Weight 230.00 05/23/2021 Pain Scale 0.00 08/11/2021 Body Temperature 98.20 08/11/2021 Heart Beat 70.00 08/11/2021 Respiratory Rate 16.00 08/11/2021 Oxygen Saturation 95.00 08/11/2021 BSA 2.03 08/11/2021 Height 64.50 08/11/2021 Weight 216.20 08/11/2021 Pain Scale 0.00 08/11/2021 Intravascular Systolic 130 08/11/2021 Intravascular Diastolic 74 08/11/2021 BMI 36.54 11/14/2021 Body Temperature 98.50 11/14/2021 Heart Beat [...]
--- OUTSIDE RECORDS SUMMARY | 2025-07-19 23:35 | XMS_ITS ---
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 BRCA2 gene mutation positive (finding) 01/19/2020 Candidal vulvovagini tis (disorder) 01/19/2020 Cardiomegaly 01/19/2020 Congestive heart emilie lure (disorder) 01/19/2020 History of fallopian tube cancer 01/19/2020 Hypertensive disorde r, systemic arterial (disorder) 01/19/2020 Hyponatremia 01/19/2020 Hyponatremia (disord er) 01/19/2020 Hypoxia 01/19/2020 Left ventricular hyp ertrophy 01/19/2020 Obesity (disorder) 01/19/2020 Osteopenia 01/19/2020 Other long-term curr ent use of drug therapy 01/19/2020 Personal history of fallopian tube cancer 01/19/2020 Postmenopausal state (finding) 01/19/2020 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) 01/19/2020 Secondary peripheral neuropathy (disorder) 01/19/2020 Secondary polycythem ia 01/19/2020 Tobacco dependence s yndrome (disorder) 01/19/2020 Umbilical hernia Immunizations Date Name Route Dose Instructions Refusal Reason Stat us 06/23/2020 Flu vaccine - Adult C ompleted Flu vaccine - Adult Comp leted Covid-19 vaccine (Pfizer) Completed Covid-19 vaccine (Pfizer) Completed Covid-19 vaccine (Pfizer) Completed Flu vaccine - Adult Comp leted Covid-19 vaccine (Pfizer) Completed Diagnostic Results Date Type Test Units Lower Limit Upper Limit Result Flag Comments Status Ordered By Specimen Source Lab Address 01/18 CMP Sodiu m mmol/L 135.0 145.0 135 FINAL [facility] 01/18 CMP Potas sium mmol/L 3.5 5.0 4.2 FINAL [facility] 01/18 CMP Chlor sathish mmol/L 98.0 110.0 99 FINAL [facility] 01/18 CMP CO2 mmol/L 21.0 31.0 28 FINAL [facility] 01/18 CMP Anion gap, mmol/ L 5.0 18.0 8.0% FINAL Tamanna Rolon 01/18 CMP Gluco se mg/dL 65.0 100.0 86 FINAL Tamanna Rolon 01/18 CMP Calci um mg/dL 8.5 10.5 9.6 FINAL Tamannanithin Rolon 01/18 CMP BUN mg/dL 8.0 25.0 17 FINAL Tamannanithin Rolon 01/18 CMP Creat inine mg/dL 0.57 1.11 0.97 FINAL Tamannanithin Rolon 01/18 CMP BUN/C reati nine ratio 10.0 20.0 18.0% FINAL Tamannanithin Rolon 01/18 CMP GFR Afric an Ameri can, estim ated ml/min /1.73m 2 >60 FINAL Tamannanithin Rolon 01/18 CMP GFR non-A frica n Ameri can, estim ated ml/min /1.73m 2 57 Low FINAL Tamannanithin Rolon 01/18 CMP Album in g/dL 3.2 4.6 4.2 FINAL Tamannanithin Rolon 01/18 CMP Total prote in g/dL 6.0 8.0 7.0 FINAL Tamannanithin Rolon 01/18 CMP Globu samreen g/dL 2.0 3.7 2.8 FINAL Tamanna Rolon 01/18 CMP A/G ratio 1.0 2.0 1.5% FINAL Tamanna Rolon 01/18 CMP Bilir ubin, total mg/dL 0.2 1.2 0.4 FINAL Tamannanithin Rolon 01/18 CMP Alkal ine phosp hatas e IU/L 50.0 136.0 70 FINAL Tamannanithin Rolon 01/18 CMP ALT/S GPT IU/L 8.0 45.0 19 FINAL Tamanna Rolon 01/18 CMP AST/S GOT IU/L 2.0 40.0 34 Test Performed by:[facility] [address], [address] - [facility] [place] [address]Yeua e [phone] FINAL Tamanna Rolon 01/18 CBC w/ auto diff WBC K/uL 3.0 8.9 8.1 FINAL Tamanna Gonzales noel Oncology - [place], [address] [place] [id number] 0 Phone: () - 01/18 CBC w/ auto diff HGB g/dL 11.3 15.2 11.7 FINAL Tamanna noel Oncology - [place], [address] [place] [id number] 0 Phone: () - 01/18 CBC w/ auto diff PLT K/uL 113.0 364.0 156 FINAL Tamanna noel Oncology - [place], [address] [place] [id number] 0 Phone: () - 01/18 CBC w/ auto diff Avtar # (ANC) K/uL 1.6 6.6 4.3 FINAL Tamanna noel Oncology - [place], [address] [place] [id number] 0 Phone: () - 01/18 CBC w/ auto diff Avtar % % 43.0 74.0 52.3 FINAL Tamanna noel Oncology - [place], [address] [place] [id number] 0 Phone: () - 01/18 CBC w/ auto diff IG % % 0.0 0.5 0.5 FINAL Tamanna noel Oncology - [place], [address] [place] [id number] 0 Phone: () - 01/18 CBC w/ auto diff IG # K/uL 0.0 0.03 0.04 High FINAL Tamanna noel Oncology - [place], [address] [place] [id number] 0 Phone: () - 01/18 CBC w/ auto diff LY % % 14.0 41.0 31.7 FINAL Tamanna noel Oncology - [place], [address] [place] [address] [address] [place] [id number] 0 Phone: () - 01/18 CBC w/ auto diff MO % % 6.0 15.0 10.4 FINAL Tamanna noel Oncology - [place], [address] [place] [id number] 0 Phone: () - 01/18 CBC w/ auto diff EO % % 0.0 7.0 4.5 FINAL Tamanna noel Oncology - [place], [address] [place] [address] [address] [place] [id number] 0 Phone: () - 01/18 CBC w/ auto diff BA % % 0.0 2.0 0.6 FINAL Tamanna noel Oncology - [place], [address] [place] [address] [address] [place] [id number] 0 Phone: () - 01/18 CBC w/ auto diff LY # K/uL 0.4 3.6 2.6 FINAL Tamanna noel Oncology - [place], [address] [place] [address] [address] [place] [id number] 0 Phone: () - 01/18 CBC w/ auto diff MO # K/uL 0.2 1.3 0.9 FINAL Tamanna noel Oncology - [place], [address] [place] [address] [address] [place] [id number] 0 Phone: () - 01/18 CBC w/ auto diff EO # K/uL 0.0 0.6 0.4 FINAL Tamanna noel [place]cology [place] [facility], [address] [place] [address] [address] [place] [id number] 0 Phone: () - 01/18 CBC w/ auto diff BA # K/uL 0.0 0.2 0.1 FINAL Tamanna noel Oncology [place] [facility], [address] [place] [address] [address] [place] [id number] 0 Phone: () - 01/18 CBC w/ auto diff NRBC % #/100W BC 0.0 0.2 0.0 FINAL Tamanna noel Oncology - [place], [address] [place] [address] [address] [place] [id number] 0 Phone: () - 01/18 CBC w/ auto diff RBC M/uL 3.9 5.1 3.36 Low FINAL Tamanna noel Oncology - [place], [address] [place] [address] [address] [facility] [id number] 0 Phone: () - 01/18 CBC w/ auto diff HCT % 35.0 48.0 34.2 Low FINAL Tamanna noel Oncology - [facility], [address] [place] [id number] 0 Phone: () - 01/18 CBC w/ auto diff MCV fL 80.0 104.0 101.8 FINAL Tamanna noel Oncology [facility], [address] [place] [id number] 0 Phone: () - 01/18 CBC w/ auto diff MCH pg 26.0 35.0 34.8 FINAL Tamanna noel Oncology [facility], [address] [place] [id number] 0 Phone: () - 01/18 CBC w/ auto diff MCHC g/dL 30.0 35.0 34.2 FINAL Tamanna noel [facility], [address] [place] [id number] 0 Phone: () - 01/18 CBC w/ auto diff MPV fL 9.5 13.4 9.7 FINAL Tamanna noel Oncology [facility], [address] [place] [id number] 0 Phone: () - 01/18 CBC w/ auto diff RDW % 11.4 16.1 13.20 FINAL Tamanna noel [facility], [address] [place] [id number] 0 Phone: () - 01/18 CA 125 panel CA 125 UNITS/ ML 0.0 34.0 9.40 Test performed at [facility] on a [employer] Immunoass ay Analyzer that uses an immunoenz ymometric sandwich assay for analysis. Patient testing should not be performed using multiple hallie soto due to analytica l variation seen between test hallie soto. FINAL Tamanna noel Oncology - [place], [address] [facility] [address] [place] [id number] 0 Phone: () - 01/18 TSH panel TSH uIU/ml 0.32 5.0 1.55 Test performed at [facility] on a [employer] Immunoass ay Analyzer that uses an immunoenz ymometric sandwich assay for analysis. Patient testing should not be performed using multiple hallie soto due to analytica l variation seen between test methoddanelle soto. FINAL Tamanna Mcginnisot a Oncology - [place], [address] [facility] [address] [facility] [id number] 0 Phone: () - 01/18 [facility] other lab See galley worker d 02/15 CMP Creat inine mg/dL 0.57 [...] GOT IU/L 2.0 40.0 31 Test Performed by:[facility] [address] - [facility] [place] [address]Aguw e [phone] FINAL Annamarie Prenderg ast 02/15 CMP Sodiu m mmol/L 135.0 145.0 134 Low FINAL Annamarie Prenderg ast 02/15 CMP Potas sium mmol/L 3.5 5.0 4.5 FINAL Annamarie Zamorano ast 02/15 CMP Chlor sathish mmol/L 98.0 110.0 99 FINAL Annamarie Zamorano ast 02/15 CMP CO2 mmol/L 21.0 31.0 25 FINAL Annamarie Zamorano ast 02/15 CMP Anion gap, mmol/ L 5.0 18.0 10.0% FINAL Annamarie Zamorano ast 02/15 CMP Gluco se mg/dL 65.0 100.0 95 FINAL Annamarie Smithg ast 02/15 CMP Calci um mg/dL 8.5 10.5 9.3 FINAL Annamarie Smithg ast 02/15 CMP BUN mg/dL 8.0 25.0 15 FINAL Annamarie Zamorano ast 02/15 CBC w/ auto diff WBC K/uL 3.0 8.9 9.3 High FINAL Annamarie rivero [place] [facility] [place] [facility], [address] [place] [address] 200 [place] [id number] 0 Phone: () - 02/15 CBC w/ auto diff HGB g/dL 11.3 15.2 11.8 FINAL Annamarie Mcginnisot a Oncology [place] [facility], [address] [place] [address] 200 [place] [id number] 0 Phone: () - 02/15 CBC w/ auto diff PLT K/uL 113.0 364.0 165 FINAL Annamarie Mcginnisot a Oncology [place] [facility], [address] [place] [address] [address] [place] [id number] 0 Phone: () - 02/15 CBC w/ auto diff Avtar # (ANC) K/uL 1.6 6.6 5.3 FINAL Annamarie Mcginnisot a Oncology [place] [facility], [address] [place] [address] 200 [place] [id number] 0 Phone: () - 02/15 CBC w/ auto diff Avtar % % 43.0 74.0 57.3 FINAL Annamarie Mcginnisot a Oncology [place] [facility], [address] [place] [address] [address] [place] [id number] 0 Phone: () - 02/15 CBC w/ auto diff IG % % 0.0 0.5 0.6 High FINAL Annamarie Mcginnisot a Oncology - [place], [address] [place] [address] [address] [place] [id number] 0 Phone: () - 02/15 CBC w/ auto diff IG # K/uL 0.0 0.03 0.06 High FINAL Annamarie Mcginnisot a Oncology - [place], [address] [place] [address] [address] [place] [id number] 0 Phone: () - 02/15 CBC w/ auto diff LY % % 14.0 41.0 27.4 FINAL Annamarie Mcginnisot a Oncology - [place], [address] [place] [address] [address] [place] [id number] 0 Phone: () - 02/15 CBC w/ auto diff MO % % 6.0 15.0 9.1 FINAL Annamarie Mcginnisot a Oncology - [place], [address] [place] [address] [address] [place] [id number] 0 Phone: () - 02/15 CBC w/ auto diff EO % % 0.0 7.0 5.0 FINAL Annamarie Mcginnisot a Oncology - [place], [address] [place] [address] [address] [place] [id number] 0 Phone: () - 02/15 CBC w/ auto diff BA % % 0.0 2.0 0.6 FINAL Annamarie Mcginnisot a Oncology - [place], [address] [place] [address] [address] [place] [id number] 0 Phone: () - 02/15 CBC w/ auto diff LY # K/uL 0.4 3.6 2.5 FINAL Annamarie Mcginnisot a Oncology - [place], [address] [place] [address] [address] [place] [id number] 0 Phone: () - 02/15 CBC w/ auto diff MO # K/uL 0.2 1.3 0.8 FINAL Annamarie Mcginnisot a Oncology - [place], [address] [place] [address] [address] [place] [id number] 0 Phone: () - 02/15 CBC w/ auto diff EO # K/uL 0.0 0.6 0.5 FINAL Annamarie noel Oncology - [place], [address] [place] [address] [address] [place] [id number] 0 Phone: () - 02/15 CBC w/ auto diff BA # K/uL 0.0 0.2 0.1 FINAL Annamarie noel Oncology [place] [facility], [address] [place] [address] [address] [place] [id number] 0 Phone: () - 02/15 CBC w/ auto diff NRBC % #/100W BC 0.0 0.2 0.0 FINAL Annamarie noel Oncology [place] [facility], [address] [place] [address] [address] [place] [id number] 0 Phone: () - 02/15 CBC w/ auto diff RBC M/uL 3.9 5.1 3.41 Low FINAL Annamarie Peters a Oncology [place] [facility], [address] [place] [address] [address] [place] [id number] 0 Phone: () - 02/15 CBC w/ auto diff HCT % 35.0 48.0 35.1 FINAL Annamarie noel Oncology - [place], [address] [place] [address] [address] [place] [id number] 0 Phone: () - 02/15 CBC w/ auto diff MCV fL 80.0 104.0 102.9 FINAL Annamarie noel Oncology [place] [facility], [address] [place] [address] [address] [place] [id number] 0 Phone: () - 02/15 CBC w/ auto diff MCH pg 26.0 35.0 34.6 FINAL Annamarie noel Oncology [place] [facility], [address] [place] [address] [address] [place] [id number] 0 Phone: () - 02/15 CBC w/ auto diff MCHC g/dL 30.0 35.0 33.6 FINAL Annamarie Mcginnisot bert Oncology [place] [facility], [address] [place] [address] [address] [place] [id number] 0 Phone: () - 02/15 CBC w/ auto diff MPV fL 9.5 13.4 9.4 Low FINAL Annamarie noel [facility], [address] [place] [address] [address] [facility] [id number] 0 Phone: () - 02/15 CBC w/ auto diff RDW % 11.4 16.1 13.20 FINAL Annamarie noel [facility], [address] [place] [address] [address] [facility] [id number] 0 Phone: () - 02/15 CA 125 panel CA 125 UNITS/ ML 0.0 34.0 8.40 Test performed at [facility] on a [employer] 2000 Immunoass ay Analyzer that uses an immunoenz ymometric sandwich assay for analysis. Patient testing should not be performed using multiple methodolo gies due to analytica l variation seen between test methodolo gies. FINAL Annamarie noel [address] [phone] 0 Phone: () - 02/15 TSH panel TSH uIU/mL 0.35 4.94 1.72 In Adults, TSH values between 5.00 and 10.00 uIU/ml do notnecess arily indicate the presence of Hypothyro idism.Cor relation with clinical findings such as presence of goiterand /or Thyropero xidase (TPO) Antibody may be helpful. Formore informati on please refer to KYLAH 2004; 291: 228-238.T est Performed by:[facility] [address] - [place], [place] [address]Nnbp e : FINAL Annamarie rivero 02/15 [facility] See galley worker d 03/15 TSH panel TSH uIU/ml 0.32 5.0 3.10 Test performed at [facility] on a [employer] 2000 Immunoass ay Analyzer that uses an immunoenz ymometric sandwich assay for analysis. Patient testing should not be performed using multiple methodolo gies due to analytica l variation seen between test methodolo gies. FINAL Annamarie noel [facility], [address] [place] [phone] 0 Phone: () - 03/15 CA 125 panel CA 125 UNITS/ ML 0.0 34.0 8.00 Test performed at [facility] on a [employer] 2000 Immuno[employer] ay Analyzer that uses an immunoenz ymometric sandwich assay for analysis. Patient testing should not be performed using multiple hallie soto due to analytica l variation seen between test hallie soto. FINAL Annamarie noel Oncology [facility], [address] [facility] [address] [facility] [id number] 0 Phone: () - 03/15 CBC w/ auto diff WBC K/uL 3.0 8.9 8.9 FINAL [facility], [address] [place] [id number] 0 Phone: () - 03/15 CBC w/ auto diff HGB g/dL 11.3 15.2 12.1 FINAL [facility], [address] [place] [address] 200 [place] [id number] 0 Phone: () - 03/15 CBC w/ auto diff PLT K/uL 113.0 364.0 171 FINAL [facility] [address] [place] [address] 200 [place] [id number] 0 Phone: () - 03/15 CBC w/ auto diff Avtar # (ANC) K/uL 1.6 6.6 5.2 FINAL [facility], [address] [place] [address] 200 [place] [id number] 0 Phone: () - 03/15 CBC w/ auto diff Avtar % % 43.0 74.0 58.5 FINAL [facility], [address] [place] [address] 200 [place] [id number] 0 Phone: () - 03/15 CBC w/ auto diff IG % % 0.0 0.5 0.7 High FINAL Annamarie Mcginnisot [facility], [address] [place] [address] 200 [place] [id number] 0 Phone: () - 03/15 CBC w/ auto diff IG # K/uL 0.0 0.03 0.06 High FINAL Annamarie Mcginnisot [facility], [address] [place] [address] 200 [place] [id number] 0 Phone: () - 03/15 CBC w/ auto diff LY % % 14.0 41.0 27.2 FINAL Annamarie Mcginnisot a Oncology - [place], [address] [place] [id number] 0 Phone: () - 03/15 CBC w/ auto diff MO % % 6.0 15.0 7.4 FINAL Annamarie rivero [place] [facility] [place], [address] [place] [address] [address] [place] [id number] 0 Phone: () - 03/15 CBC w/ auto diff EO % % 0.0 7.0 5.5 FINAL Annamarie Mcginnisot a Oncology - [place], [facility] [address] [place] [id number] 0 Phone: () - 03/15 CBC w/ auto diff BA % % 0.0 2.0 0.7 FINAL Annamarie Mcginnisot a Oncology - [place], [facility] [address] [place] [id number] 0 Phone: () - 03/15 CBC w/ auto diff LY # K/uL 0.4 3.6 2.4 FINAL Annamarie Mcginnisot a Oncology [place] [facility], [address] [place] [address] 200 [place] [id number] 0 Phone: () - 03/15 CBC w/ auto diff MO # K/uL 0.2 1.3 0.7 FINAL Annamarie Mcginnisot a Oncology - [place], [facility] [address] [place] [id number] 0 Phone: () - 03/15 CBC w/ auto diff EO # K/uL 0.0 0.6 0.5 FINAL Annamarie Mcginnisot a Oncology - [place], [facility] [address] [place] [id number] 0 Phone: () - 03/15 CBC w/ auto diff BA # K/uL 0.0 0.2 0.1 FINAL Annamarie rivero [place] [facility] [place], [address] [place] [id number] 0 Phone: () - 03/15 CBC w/ auto diff NRBC % #/100W BC 0.0 0.2 0.0 FINAL Annamarie Mcginnisot bert Oncology [place] [facility], [address] [place] [address] [address] [place] [id number] 0 Phone: () - 03/15 CBC w/ auto diff RBC M/uL 3.9 5.1 3.41 Low FINAL Annamarie Mcginnisot a Oncology [place] [facility], [address] [place] [address] [address] [place] [id number] 0 Phone: () - 03/15 CBC w/ auto diff HCT % 35.0 48.0 35.5 FINAL Annamarie onel Oncology [place] [facility], [address] [place] [id number] 0 Phone: () - 03/15 CBC w/ auto diff MCV fL 80.0 104.0 104.1 High FINAL Annamarie Mcginnisot a Oncology [place] [facility], [facility] [address] [place] [id number] 0 Phone: () - 03/15 CBC w/ auto diff MCH pg 26.0 35.0 35.5 High FINAL Annamarie Mcginnisot a Oncology [place] [facility], [address] [place] [address] [address] [place] [id number] 0 Phone: () - 03/15 CBC w/ auto diff MCHC g/dL 30.0 35.0 34.1 FINAL Annamarie Mcginnisot a Oncology [place] [facility], [address] [place] [address] [address] [place] [id number] 0 Phone: () - 03/15 CBC w/ auto diff MPV fL 9.5 13.4 9.6 FINAL Annamarie Mcginnisot a Oncology [place] [facility], [address] [place] [address] [address] [place] [id number] 0 Phone: () - 03/15 CBC w/ auto diff RDW % 11.4 16.1 13.00 FINAL Annamarie Mcginnisot a On[facility] [place] [facility], [address] [place] [address] [address] [place] [id number] 0 Phone: () - 03/15 CMP Sodiu m mmol/L 135.0 145.0 133 Low FINAL Annamarie Zamorano ast 03/15 CMP Potas sium mmol/L 3.5 5.0 4.5 FINAL [facility]15 CMP Chlor sathish mmol/L 98.0 110.0 96 Low FINAL [facility] 03/15 CMP CO2 mmol/L 21.0 31.0 29 FINAL [facility] 03/15 CMP Anion gap, mmol/ L 5.0 18.0 8.0% FINAL [facility] 03/15 CMP Gluco se mg/dL 65.0 100.0 95 FINAL [facility] 03/15 CMP Calci um mg/dL 8.5 10.5 10.3 FINAL [facility] 03/15 CMP BUN mg/dL 8.0 25.0 14 FINAL [facility] ast 03/15 CMP Creat inine mg/dL 0.57 1.11 1.13 High FINAL [place] [facility] 03/15 CMP BUN/C reati nine ratio 10.0 20.0 12.0% FINAL [place] [facility] 03/15 CMP GFR Afric an Ameri can, estim ated ml/min /1.73m 2 58 Low FINAL [facility] 03/15 CMP GFR non-A frica n Ameri can, estim ated ml/min /1.73m 2 48 Low FINAL [place] [facility] 03/15 CMP Album in g/dL 3.2 4.6 4.3 FINAL [place] [facility] 03/15 CMP Total prote in g/dL 6.0 8.0 7.5 FINAL [facility] ast 03/15 CMP Globu samreen g/dL 2.0 3.7 3.2 FINAL [place] [facility] 03/15 CMP A/G ratio 1.0 2.0 1.3% FINAL [place] [facility] 03/15 CMP Bilir ubin, total mg/dL 0.2 1.2 0.5 FINAL [facility] ast 03/15 CMP Alkal ine phosp hatas e IU/L 50.0 136.0 69 FINAL [facility] ast 03/15 CMP ALT/S GPT IU/L 8.0 45.0 18 FINAL Annamarie Zamorano ast 03/15 CMP AST/S GOT IU/L 2.0 40.0 29 Test Performed by:[facility] [address] [facility], [place] [address]Auwe e : FINAL Annamarie Zamorano ast 03/15 [facility] other lab See galley worker d 03/15 Misc other lab See galley worker d 03/24 Misc other lab See galley worker d 04/12 CA 125 panel CA 125 UNITS/ ML 0.0 34.0 7.70 Test performed at [facility] on a [employer] Immuno[employer] ay Analyzer that uses an immunoenz ymometric sandwich assay for analysis. Patient testing should not be performed using multiple methodolo gies due to analytica l variation seen between test methodolo gies. FINAL Annamarie noel [address] [place] [address] [phone] 0 Phone: () - 04/12 TSH panel TSH uIU/ml 0.32 5.0 1.71 Test performed at [facility] on a [employer] 2000 Immunoass ay Analyzer that uses an immunoenz ymometric sandwich assay for analysis. Patient testing should not be performed using multiple methodolo gies due to analytica l variation seen between test methodolo gies. FINAL Annamarie noel [facility], [address] [place] [address] [place] [address] [place] [phone] 0 Phone: () - 04/12 CBC w/ auto diff MCH pg 26.0 35.0 35.0 FINAL Annamarie noel [facility], [address] [place] [id number] 0 Phone: () - 04/12 CBC w/ auto diff MCHC g/dL 30.0 35.0 33.1 FINAL Annamarie noel [facility], [address] [place] [id number] 0 Phone: () - 04/12 CBC w/ auto diff MPV fL 9.5 13.4 9.5 FINAL Annamarie noel Oncology - [place], [address] [place] [id number] 0 Phone: () - 04/12 CBC w/ auto diff RDW % 11.4 16.1 12.90 FINAL Annamarie noel [facility] [place] [facility], [address] [place] [id number] 0 Phone: () - 04/12 CBC w/ auto diff WBC K/uL 3.0 8.9 8.9 FINAL Annamarie [facility] - [place] [facility], [address] 200 [place] [id number] 0 Phone: () - 04/12 CBC w/ auto diff HGB g/dL 11.3 15.2 11.8 FINAL Annamarie noel Oncology - [place] [facility], [address] [place] [id number] 0 Phone: () - 04/12 CBC w/ auto diff PLT K/uL 113.0 364.0 162 FINAL Annamarie noel Oncology [facility] [place] [facility], [address] [place] [id number] 0 Phone: () - 04/12 CBC w/ auto diff Avtar # (ANC) K/uL 1.6 6.6 5.0 FINAL Annamarie noel Oncology - [place] [facility], [address] [place] [id number] 0 Phone: () - 04/12 CBC w/ auto diff Avtar % % 43.0 74.0 56.1 FINAL Annamarie noel Oncology - [place] [facility], [address] [place] [id number] 0 Phone: () - 04/12 CBC w/ auto diff IG % % 0.0 0.5 0.7 High FINAL Annamarie noel Oncology - [place] [facility], [address] [place] [id number] 0 Phone: () - 04/12 CBC w/ auto diff IG # K/uL 0.0 0.03 0.06 High FINAL Annamarie noel Oncology - [place] [facility], [address] 200 [facility] [id number] 0 Phone: () - 04/12 CBC w/ auto diff LY % % 14.0 41.0 29.0 FINAL Annamarie noel Oncology - [place] [facility], [address] [place] [address] 200 [facility] [id number] 0 Phone: () - 04/12 CBC w/ auto diff MO % % 6.0 15.0 7.8 FINAL Annamarie Peters a Oncology - [place] [facility], [address] [place] [address] 200 [facility] [id number] 0 Phone: () - 04/12 CBC w/ auto diff EO % % 0.0 7.0 5.6 FINAL Annamarie noel Oncology [place] [facility], [address] [place] [address] 200 [facility] [id number] 0 Phone: () - 04/12 CBC w/ auto diff BA % % 0.0 2.0 0.8 FINAL Annamarie Peters a Oncology - [place] [facility], [address] [place] [address] 200 [facility] [id number] 0 Phone: () - 04/12 CBC w/ auto diff LY # K/uL 0.4 3.6 2.6 FINAL Annamarie Peters a Oncology - [place] [facility], [address] [place] [address] 200 [facility] [id number] 0 Phone: () - 04/12 CBC w/ auto diff MO # K/uL 0.2 1.3 0.7 FINAL Annamarie Mcginnisot a Oncology - [place] [facility], [address] [place] [address] 200 [facility] [id number] 0 Phone: () - 04/12 CBC w/ auto diff EO # K/uL 0.0 0.6 0.5 FINAL Annamarie Mcgininsot a Oncology - [place] [facility], [address] [place] [address] 200 [facility] [id number] 0 Phone: () - 04/12 CBC w/ auto diff BA # K/uL 0.0 0.2 0.1 FINAL Annamarie Mcginnisot a Oncology - [place] [facility], [address] [place] [address] 200 [facility] [id number] 0 Phone: () - 04/12 CBC w/ auto diff NRBC % #/100W BC 0.0 0.2 0.0 FINAL Annamarie Mcginnisot [facility], [address] [place] [address] 200 [place] [id number] 0 Phone: () - 04/12 CBC w/ auto diff RBC M/uL 3.9 5.1 3.37 Low FINAL Annamarie Mcginnisot [facility], [address] [place] [address] 200 [place] [id number] 0 Phone: () - 04/12 CBC w/ auto diff HCT % 35.0 48.0 35.7 FINAL Annamarie Mcginnisot bert Oncology - [facility], [address] [place] [address] 200 [place] [id number] 0 Phone: () - 04/12 CBC w/ auto diff MCV fL 80.0 104.0 105.9 High FINAL Annamarie Mcginnisot a Oncology - [facility], [address] [place] [address] [address] [place] [id number] 0 Phone: () - 04/12 CMP Sodiu m mmol/L 135.0 145.0 132 Low FINAL Annamarierenny Bailonderg ast 04/12 CMP Potas sium mmol/L 3.5 5.0 4.5 FINAL Annamarie Prenderg ast 04/12 CMP Chlor sathish mmol/L 98.0 110.0 97 Low FINAL Annamarierenny Bailonderg ast 04/12 CMP CO2 mmol/L 21.0 31.0 27 FINAL Annamarie Prenderg ast 04/12 CMP Anion gap, mmol/ L 5.0 18.0 8.0% FINAL Annamarie Adamarisderg ast 04/12 CMP Gluco se mg/dL 65.0 100.0 96 FINAL Annamarie Prenderg ast 04/12 CMP Calci um mg/dL 8.5 10.5 9.4 FINAL Annamarie Prenderg ast 04/12 CMP BUN mg/dL 8.0 25.0 12 FINAL Annamarie Prenderg ast 04/12 CMP Creat inine mg/dL 0.57 1.11 1.02 FINAL Annamarie Prenderg ast 04/12 CMP BUN/C reati nine ratio 10.0 20.0 12.0% FINAL Annamarie Zamorano ast 04/12 CMP GFR Afric an Bashir can, estim ated ml/min /1.73m 2 >60 FINAL Annamarie Zamorano ast 04/12 CMP GFR non-A frica n [...] GOT IU/L 2.0 40.0 30 Test Performed by:[facility] [employer] [facility] [address] [facility], [place] [id number] e : FINAL Annamarie Zamorano ast 04/12 [facility] other lab See galley worker d 04/12 [facility] other lab See galley worker d 05/10 CBC w/ auto diff BA % % 0.0 2.0 0.5 FINAL Tamanna noel Oncology - [place] [facility], [address] [place] [id number] 0 Phone: () - 05/10 CBC w/ auto diff LY # K/uL 0.4 3.6 2.3 FINAL Tamanna noel Oncology - [place] [facility], [address] [place] [id number] 0 Phone: () - 05/10 CBC w/ auto diff MO # K/uL 0.2 1.3 0.8 FINAL Tamanna noel Oncology - [place] [facility], [address] [place] [id number] 0 Phone: () - 05/10 CBC w/ auto diff EO # K/uL 0.0 0.6 0.5 FINAL Tamanna noel Oncology - [place] [facility], [address] [place] [address] 200 [place] [id number] 0 Phone: () - 05/10 CBC w/ auto diff BA # K/uL 0.0 0.2 0.1 FINAL Tamanna noel Oncology - [place] [facility], [address] [place] [address] 200 [place] [id number] 0 Phone: () - 05/10 CBC w/ auto diff NRBC % #/100W BC 0.0 0.2 0.0 FINAL Tamanna noel Oncology - [place] [facility], [address] [place] [address] 200 [place] [id number] 0 Phone: () - 05/10 CBC w/ auto diff RBC M/uL 3.9 5.1 3.61 Low FINAL Tamanna noel Oncology - [place] [facility], [address] [place] [address] 200 [place] [id number] 0 Phone: () - 05/10 CBC w/ auto diff HCT % 35.0 48.0 36.9 FINAL Tamanna noel Oncology - [place] [facility], [address] [place] [address] 200 [place] [id number] 0 Phone: () - 05/10 CBC w/ auto diff MCV fL 80.0 104.0 102.2 FINAL Tamanna noel Oncology - [place] [facility], [address] [place] [address] 200 [place] [id number] 0 Phone: () - 05/10 CBC w/ auto diff MCH pg 26.0 35.0 35.7 High FINAL Tamanna noel Oncology - [place] [facility], [address] [place] [address] 200 [place] [id number] 0 Phone: () - 05/10 CBC w/ auto diff MCHC g/dL 30.0 35.0 35.0 FINAL Tamanna noel [facility] - [place], [address] [place] [address] [address] [place] [id number] 0 Phone: () - 05/10 CBC w/ auto diff MPV fL 9.5 13.4 9.2 Low FINAL Tamanna noel [facility]cology - [place], [address] [place] [address] [address] [place] [id number] 0 Phone: () - 05/10 CBC w/ auto diff RDW % 11.4 16.1 12.50 FINAL Tamanna noel [facility] - [place], [address] [place] [id number] 0 Phone: () - 05/10 CBC w/ auto diff WBC K/uL 3.0 8.9 10.3 High FINAL Tamanna nole Oncology - [place], [address] [place] [id number] 0 Phone: () - 05/10 CBC w/ auto diff HGB g/dL 11.3 15.2 12.9 FINAL Tamanna noel [facility] - [place], [address] [place] [id number] 0 Phone: () - 05/10 CBC w/ auto diff PLT K/uL 113.0 364.0 172 FINAL Tamanna noel Oncology - [place], [address] [place] [id number] 0 Phone: () - 05/10 CBC w/ auto diff Avtar # (ANC) K/uL 1.6 6.6 6.6 FINAL Tamanna noel Oncology - [place], [address] [place] [address] [address] [place] [id number] 0 Phone: () - 05/10 CBC w/ auto diff Avtar % % 43.0 74.0 64.3 FINAL Tamanna noel Oncology - [place], [address] [place] [id number] 0 Phone: () - 05/10 CBC w/ auto diff IG % % 0.0 0.5 0.7 High FINAL Tamanna noel On[facility] - [place], [address] [place] [address] 200 [facility] [place] [id number] 0 Phone: () - 05/10 CBC w/ auto diff IG # K/uL 0.0 0.03 0.07 High FINAL Tamanna noel [facility], [address] [place] [id number] 0 Phone: () - 05/10 CBC w/ auto diff LY % % 14.0 41.0 22.7 FINAL Tamanna noel [facility], [address] [place] [address] 200 [facility] [place] [id number] 0 Phone: () - 05/10 CBC w/ auto diff MO % % 6.0 15.0 7.4 FINAL Tamanna noel [facility], [address] [place] [address] [address] [place] [id number] 0 Phone: () - 05/10 CBC w/ auto diff EO % % 0.0 7.0 4.4 FINAL Tamanna noel [facility], [address] [place] [address] [address] [place] [id number] 0 Phone: () - 05/10 TSH panel TSH uIU/ml 0.32 5.0 1.90 Test performed at [facility] on a [employer] [address] [employer] ay Analyzer that uses an immunoenz ymometric sandwich assay for analysis. Patient testing should not be performed using multiple methodolo gies due to analytica l variation seen between test methodolo gies. FINAL Tamanna noel [address] [id number] 0 Phone: () - 05/10 CA 125 panel CA 125 UNITS/ ML 0.0 34.0 9.80 Test performed at [facility] on a [employer] [address] [employer] Analyzer that uses an immunoenz ymometric sandwich assay for analysis. Patient testing should not be performed using multiple methodolo gies due to analytica l variation seen between test methodolo gies. FINAL Tamanna noel [address] [id number] 0 Phone: () - 05/10 CMP Sodiu [...] GOT IU/L 2.0 40.0 33 Test Performed by:[facility] [employer] [facility] [address], [address] - [facility] [place] [id number] e : FINAL Tamanna Rolon 05/10 [facility] other lab See galley worker d 05/10 Mis other lab See galley worker d 05/25 Mis other lab See galley worker d 06/07 CMP Sodiu m mmol/L 135.0 145.0 130 Low FINAL Annamarie Prenfareedg ast 06/07 CMP Potas sium mmol/L 3.5 5.0 4.4 FINAL Annamarie Prenderg ast 06/07 CMP Chlor sathish mmol/L 98.0 110.0 91 Low FINAL Annamarie Prenderg ast 06/07 CMP CO2 mmol/L 21.0 31.0 30 FINAL Annamarie Prenderg ast 06/07 CMP Anion gap, mmol/ L 5.0 18.0 9.0% FINAL Annamarie Prenderg ast 06/07 CMP Gluco se mg/dL 65.0 100.0 87 FINAL Annamarie Prenderg ast 06/07 CMP Calci um mg/dL 8.5 10.5 10.1 FINAL Annamarie Prenderg ast 06/07 CMP BUN mg/dL 8.0 25.0 12 FINAL Annamarie Prenderg ast 06/07 CMP Creat inine mg/dL 0.57 1.11 1.12 High FINAL [facility] CMP BUN/C reati nine ratio 10.0 20.0 11.0% FINAL Annamarie Prenderg ast 06/07 CMP GFR Afric an Ameri can, estim ated ml/min /1.73m 2 58 Low FINAL Annamarie Prenderg ast 06/07 CMP GFR non-A frica n Ameri can, estim ated ml/min /1.73m 2 48 Low FINAL Annamarie Prenderg ast 06/07 CMP Album in g/dL 3.2 4.6 4.2 FINAL Annamarie Prenderg ast 06/07 CMP Total prote in g/dL [...] IU/L 2.0 40.0 44 High Test Performed by:[facility] [employer] [facility] [employer] [facility] [address], [address] - [facility], [place] [id number] e : FINAL Annamarie Zamorano ast 06/07 CA 125 panel CA 125 UNITS/ ML 0.0 34.0 9.80 Test performed at [facility] on a [employer] Immun[employer] ay Analyzer that uses an immunoenz ymometric sandwich assay for analysis. Patient testing should not be performed using multiple methodolo gies due to analytica l variation seen between test methodolo gies. FINAL Annamarie rivero [place] [facility] [address] [phone] 0 Phone: () - 06/07 TSH panel TSH uIU/ml 0.32 5.0 3.43 Test performed at [facility] on a [employer] Immuno[employer] ay Analyzer that uses an immunoenz ymometric sandwich assay for analysis. Patient testing should not be performed using multiple methodolo gies due to analytica l variation seen between test methodolo gies. FINAL Annamarie rivero [place] [facility] - [address] [place] [address] [phone] 0 Phone: () - 06/07 CBC w/ auto diff WBC K/uL 3.0 8.9 9.5 High FINAL Annamarie Zamorano ast [place] [facility] - [facility], [address] [place] [id number] 0 Phone: () - 06/07 CBC w/ auto diff HGB g/dL 11.3 15.2 12.2 FINAL Annamarie Mcginnisot a Oncology - [place], [address] [place] [address] [address] [place] [id number] 0 Phone: () - 06/07 CBC w/ auto diff PLT K/uL 113.0 364.0 166 FINAL Annamarie Mcginnisot a On[facility] - [place], [address] [place] [address] [address] [place] [id number] 0 Phone: () - 06/07 CBC w/ auto diff Avtar # (ANC) K/uL 1.6 6.6 5.8 FINAL Annamarie Mcginnisot a On[facility] - [place], [address] [place] [address] [address] [place] [id number] 0 Phone: () - 06/07 CBC w/ auto diff Avtar % % 43.0 74.0 60.6 FINAL Annamarie Mcginnisot a Oncology - [place], [address] [place] [address] [address] [place] [id number] 0 Phone: () - 06/07 CBC w/ auto diff IG % % 0.0 0.5 0.7 High FINAL Annamarie Mcginnisot a [facility] - [place], [address] [place] [address] [address] [place] [id number] 0 Phone: () - 06/07 CBC w/ auto diff IG # K/uL 0.0 0.03 0.07 High FINAL Annamarie rivero [place] [facility] [place], [address] [place] [address] [address] [place] [id number] 0 Phone: () - 06/07 CBC w/ auto diff LY % % 14.0 41.0 25.2 FINAL Annamarie rivero [place] [facility] [place], [address] [place] [address] [address] [place] [id number] 0 Phone: () - 06/07 CBC w/ auto diff MO % % 6.0 15.0 7.7 FINAL Annamarie rivero [place] [facility] [place], [address] [place] [address] [address] [place] [id number] 0 Phone: () - 06/07 CBC w/ auto diff EO % % 0.0 7.0 5.1 FINAL Annamarie Mcginnisot a On[facility] - [place], [address] [place] [address] [address] [place] [id number] 0 Phone: () - 06/07 CBC w/ auto diff BA % % 0.0 2.0 0.7 FINAL Annamarie Mcginnisot a On[facility] - [place], [address] [place] [address] [address] [place] [id number] 0 Phone: () - 06/07 CBC w/ auto diff LY # K/uL 0.4 3.6 2.4 FINAL Annamarie Mcginnsiot a Oncology - [place] [facility], [address] [place] [address] [address] [place] [id number] 0 Phone: () - 06/07 CBC w/ auto diff MO # K/uL 0.2 1.3 0.7 FINAL Annamarie Mcginnisot a Oncology - [place] [facility], [address] [place] [address] [address] [place] [id number] 0 Phone: () - 06/07 CBC w/ auto diff EO # K/uL 0.0 0.6 0.5 FINAL Annamarie Mcginnisot a Oncology - [place] [facility], [address] [place] [address] [address] [place] [id number] 0 Phone: () - 06/07 CBC w/ auto diff BA # K/uL 0.0 0.2 0.1 FINAL Annamarie Mcginnisot a Oncology - [place] [facility], [address] [place] [address] [address] [place] [id number] 0 Phone: () - 06/07 CBC w/ auto diff NRBC % #/100W BC 0.0 0.2 0.0 FINAL Annamarie Mcginnisot a Oncology [place] [facility], [address] [place] [address] [address] [place] [id number] 0 Phone: () - 06/07 CBC w/ auto diff RBC M/uL 3.9 5.1 3.46 Low FINAL Annamarie Mcginnisot a Oncology [place] [facility], [address] [place] [address] [address] [place] [id number] 0 Phone: () - 06/07 CBC w/ auto diff HCT % 35.0 48.0 35.6 FINAL Annamarie noel Oncology - [place], [address] [place] [address] [address] [place] [id number] 0 Phone: () - 06/07 CBC w/ auto diff MCV fL 80.0 104.0 102.9 FINAL Annamarie noel Oncology - [place], [address] [place] [address] [address] [place] [id number] 0 Phone: () - 06/07 CBC w/ auto diff MCH pg 26.0 35.0 35.3 High FINAL Annamarie noel Oncology - [place], [address] [place] [address] [address] [place] [id number] 0 Phone: () - 06/07 CBC w/ auto diff MCHC g/dL 30.0 35.0 34.3 FINAL Annamarie noel Oncology - [place], [address] [place] [address] [address] [place] [id number] 0 Phone: () - 06/07 CBC w/ auto diff MPV fL 9.5 13.4 9.4 Low FINAL Annamarie noel Oncology - [place], [address] [place] [address] [address] [place] [id number] 0 Phone: () - 06/07 CBC w/ auto diff RDW % 11.4 16.1 12.50 FINAL Annamarie noel Oncology - [place], [address] [place] [address] [address] [place] [id number] 0 Phone: () - 06/07 [facility] other lab See galley worker d 07/05 CBC w/ auto diff BA # K/uL 0.0 0.2 0.1 FINAL Tamanna noel Oncology - [place], [address] [place] [address] [address] [place] [id number] 0 Phone: () - 07/05 CBC w/ auto diff NRBC % #/100W BC 0.0 0.2 0.0 FINAL Tamanna noel Oncology - [place], [address] [place] [address] [address] [place] [id number] 0 Phone: () - 07/05 CBC w/ auto diff RBC M/uL 3.9 5.1 3.54 Low FINAL Tamanna Gonzales [place] [facility] - [place], [address] [place] [id number] 0 Phone: () - 07/05 CBC w/ auto diff HCT % 35.0 48.0 37.0 FINAL Tamanna noel Oncology - [place], [address] [place] [address] [address] [place] [id number] 0 Phone: () - 07/05 CBC w/ auto diff MCV fL 80.0 104.0 104.5 High FINAL Tamanna noel Oncology - [place], [address] [place] [id number] 0 Phone: () - 07/05 CBC w/ auto diff MCH pg 26.0 35.0 35.0 FINAL Tamanna noel Oncology - [place], [address] [place] [id number] 0 Phone: () - 07/05 CBC w/ auto diff MCHC g/dL 30.0 35.0 33.5 FINAL Tamanna noel Oncology - [place], [address] [place] [id number] 0 Phone: () - 07/05 CBC w/ auto diff MPV fL 9.5 13.4 9.5 FINAL Tamanna noel Oncology - [place], [address] [place] [id number] 0 Phone: () - 07/05 CBC w/ auto diff RDW % 11.4 16.1 13.10 FINAL Tamanna noel Oncology - [place], [address] [place] [id number] 0 Phone: () - 07/05 CBC w/ auto diff WBC K/uL 3.0 8.9 10.4 High FINAL Tamanna noel Oncology - [place], [address] [place] [address] [address] [place] [id number] 0 Phone: () - 07/05 CBC w/ auto diff HGB g/dL 11.3 15.2 12.4 FINAL Tamanna noel Oncology - [place], [address] [place] [address] [address] [place] [id number] 0 Phone: () - 07/05 CBC w/ auto diff PLT K/uL 113.0 364.0 177 FINAL Tamanna noel [facility] - [place], [address] [place] [address] [address] [place] [id number] 0 Phone: () - 07/05 CBC w/ auto diff Avtar # (ANC) K/uL 1.6 6.6 6.3 FINAL Tamanna noel [facility] - [place], [address] [place] [id number] 0 Phone: () - 07/05 CBC w/ auto diff Avtar % % 43.0 74.0 61.2 FINAL Tamanna noel [facility]cology - [place], [address] [place] [address] [address] [place] [id number] 0 Phone: () - 07/05 CBC w/ auto diff IG % % 0.0 0.5 0.7 High FINAL Tamanna noel [facility]cology - [place], [address] [place] [address] [address] [place] [id number] 0 Phone: () - 07/05 CBC w/ auto diff IG # K/uL 0.0 0.03 0.07 High FINAL Tamanna noel [facility] - [place], [address] [place] [address] 200 [place] [id number] 0 Phone: () - 07/05 CBC w/ auto diff LY % % 14.0 41.0 24.2 FINAL Tamanna noel [facility] - [place], [address] [place] [address] 200 [place] [id number] 0 Phone: () - 07/05 CBC w/ auto diff MO % % 6.0 15.0 8.6 FINAL Tamanna noel [facility] - [place], [address] [place] [address] [address] [place] [id number] 0 Phone: () - 07/05 CBC w/ auto diff EO % % 0.0 7.0 4.5 FINAL Tamanna noel [facility] - [place], [address] [place] [address] 200 [place] [id number] 0 Phone: () - 07/05 CBC w/ auto diff BA % % 0.0 2.0 0.8 FINAL Tamanna noel Oncology - [facility], [address] [place] [address] [address] [facility] [id number] 0 Phone: () - 07/05 CBC w/ auto diff LY # K/uL 0.4 3.6 2.5 FINAL Tamanna noel Oncology - [facility], [address] [place] [address] 200 [facility] [id number] 0 Phone: () - 07/05 CBC w/ auto diff MO # K/uL 0.2 1.3 0.9 FINAL Tamanna noel Oncology - [facility], [address] [place] [address] [address] [facility] [id number] 0 Phone: () - 07/05 CBC w/ auto diff EO # K/uL 0.0 0.6 0.5 FINAL Tamanna noel [facility], [address] [place] [address] 200 [facility] [id number] 0 Phone: () - 07/05 CA 125 panel CA 125 UNITS/ ML 0.0 34.0 9.50 Test performed at [facility] on a [employer] 2000 [employer] ay Analyzer that uses an immunoenz ymometric sandwich assay for analysis. Patient testing should not be performed using multiple methodolo gies due to analytica l variation seen between test methodolo gies. FINAL Tamanna noel [address] [id number] [phone] Phone: () - 07/05 TSH panel TSH uIU/ml 0.32 5.0 2.46 Test performed at [facility] on a [employer] 2000 [employer] ay Analyzer that uses an immunoenz ymometric sandwich assay for analysis. Patient testing should not be performed using multiple methodolo gies due to analytica l variation seen between test methodolo gies. FINAL Tamanna noel [facility] [address] [id number] 0 Phone: () - 07/05 CMP Sodiu [...] BUN mg/dL 8.0 25.0 15 FINAL Tamanna Rolno 07/05 CMP Creat inine mg/dL 0.57 1.11 1.22 High FINAL Tamanna Rolon 07/05 CMP BUN/C reati nine ratio 10.0 20.0 12.0% FINAL Tamanna Rolon 07/05 CMP GFR Afric an Ameri can, estim ated ml/min /1.73m 2 53 Low FINAL Tamanna Rolon 07/05 CMP GFR non-A frica n Amsj can, estim ated ml/min /1.73m 2 44 [...] GOT IU/L 2.0 40.0 36 Test Performed by:[facility] [address] - [facility] [place], [place] [id number] e : FINAL Tamanna Rolon 07/05 [facility] other lab See galley worker d 07/13 [facility] other lab See galley worker d 08/02 CA 125 panel CA 125 UNITS/ ML 0.0 34.0 8.50 Test performed at [facility] on a [employer] Immun[employer] Analyzer that uses an immunoenz ymometric sandwich assay for analysis. Patient testing should not be performed using multiple methodolo gies due to analytica l variation seen between test methodolo gies. FINAL Tamanna noel [address] [id number] 0 Phone: () - 08/02 TSH panel TSH uIU/ml 0.32 5.0 2.38 Test performed at [facility] on a [employer]zer that uses an immunoenz ymometric sandwich assay for analysis. Patient testing should not be performed using multiple methodolo gies due to analytica l variation seen between test methodolo gies. FINAL Tamanan noel [facility], [address] [place] [address] [place] [address] [id number] 0 Phone: () - 08/02 CBC w/ auto diff WBC K/uL 3.0 8.9 9.3 High FINAL Tamanna noel [facility], [address] [place] [address] [address] [place] [phone] Phone: () - 08/02 CBC w/ auto diff HGB g/dL 11.3 15.2 12.5 FINAL Tamanna noel [facility], [address] [place] [id number] [phone] Phone: () - 08/02 CBC w/ auto diff PLT K/uL 113.0 364.0 165 FINAL Tamanna noel [facility], [address] [place] [phone] Phone: () - 08/02 CBC w/ auto diff Avtar # (ANC) K/uL 1.6 6.6 5.7 FINAL Tamanna noel [facility] [place], [address] [place] [phone] 0 Phone: () - 08/02 CBC w/ auto diff Avtar % % 43.0 74.0 61.0 FINAL Tamanna noel [facility] [place], [address] [place] [phone] 0 Phone: () - 08/02 CBC w/ auto diff IG % % 0.0 0.5 0.6 High FINAL [facility] [place], [address] 200 [place] [id number] 0 Phone: () - 08/02 CBC w/ auto diff IG # K/uL 0.0 0.03 0.06 High FINAL [facility] [place], [address] [place] [address] [address] [place] [id number] 0 Phone: () - 08/02 CBC w/ auto diff LY % % 14.0 41.0 24.1 FINAL [facility] no[facility] [place], [address] [place] [address] 200 [place] [id number] 0 Phone: () - 08/02 CBC w/ auto diff MO % % 6.0 15.0 8.4 FINAL [facility] no[facility] [place], [address] [place] [address] 200 [place] [id number] 0 Phone: () - 08/02 CBC w/ auto diff EO % % 0.0 7.0 5.1 FINAL [facility] no[facility] - [place], [address] [place] [address] [address] [place] [id number] 0 Phone: () - 08/02 CBC w/ auto diff BA % % 0.0 2.0 0.8 FINAL [facility] [place], [address] [place] [address] [address] [place] [id number] 0 Phone: () - 08/02 CBC w/ auto diff LY # K/uL 0.4 3.6 2.2 FINAL [facility] no[facility] [place], [address] [place] [address] [address] [place] [id number] 0 Phone: () - 08/02 CBC w/ auto diff MO # K/uL 0.2 1.3 0.8 FINAL [facility]anna noel [facility] [place] [facility], [address] [place] [address] [address] [place] [id number] 0 Phone: () - 08/02 CBC w/ auto diff EO # K/uL 0.0 0.6 0.5 FINAL [facility] noel [facility] [place] [facility], [address] [place] [address] [address] [place] [id number] 0 Phone: () - 08/02 CBC w/ auto diff BA # K/uL 0.0 0.2 0.1 FINAL [facility] noel [facility] [place] [facility], [address] [place] [address] [address] [place] [id number] 0 Phone: () - 08/02 CBC w/ auto diff NRBC % #/100W BC 0.0 0.2 0.0 FINAL [facility]anna noel [facility] [place] [facility], [address] [place] [address] [address] [place] [id number] 0 Phone: () - 08/02 CBC w/ auto diff RBC M/uL 3.9 5.1 3.55 Low FINAL [facility]el [facility] [place] [facility], [address] [place] [address] [address] [place] [id number] 0 Phone: () - 08/02 CBC w/ auto diff HCT % 35.0 48.0 37.3 FINAL [facility]anna noel [facility] [place] [facility], [address] [place] [address] [address] [place] [id number] 0 Phone: () - 08/02 CBC w/ auto diff MCV fL 80.0 104.0 105.1 High FINAL Tamanna noel [facility] [place] [facility], [address] [place] [address] [address] [place] [id number] 0 Phone: () - 08/02 CBC w/ auto diff MCH pg 26.0 35.0 35.2 High FINAL [facility]anna noel [facility] [place] [facility], [address] [place] [address] [address] [place] [id number] 0 Phone: () - 08/02 CBC w/ auto diff MCHC g/dL 30.0 35.0 33.5 FINAL [facility] [place], [address] [place] [id number] 0 Phone: () - 08/02 CBC w/ auto diff MPV fL 9.5 13.4 9.6 FINAL [facility] [place], [address] [place] [id number] 0 Phone: () - 08/02 CBC w/ auto diff RDW % 11.4 16.1 13.00 FINAL [facility] no[facility] [place], [address] [place] [id number] 0 Phone: () - 08/02 CMP Sodiu [...] GOT IU/L 2.0 40.0 32 Test Performed by:[facility] [address] [facility], [address] - [facility], [place] [address]Uvgr e [phone] FINAL Tamanna Rolon 08/02 [facility] other lab See galley worker d 08/13 [facility] other lab See galley worker d 08/30 Magne sium, mg/dL mg/dL 1.5 2.3 1.5 FINAL Tamanna noel [address] [place] [address] [phone] Phone: () - 08/30 Folat e, serum ng/mL 3.0 16.0 Folate greater than 20 FINAL Tamanna noel [address] [place] [address] [id number] 0 Phone: () - 08/30 Retic ulocy te, absol carlos M/uL 0.02 0.08 0.08 FINAL Tamanna noel [facility], [address] [place] [address] [address] [place] [id number] 0 Phone: () - 08/30 Retic ulocy te count % 0.4 1.6 2.19 High FINAL [facility], [address] [place] [address] [address] [place] [id number] 0 Phone: () - 08/30 Immat ure retic ulocy te fract ion, % % 0.0 16.5 20.20 High FINAL Tamanna noel [facility] [place], [address] [place] [address] [address] [place] [id number] 0 Phone: () - 08/30 Retic ulocy te cellu lar hemog lobin pg 28.0 37.0 38.2 High FINAL Tamanna noel [facility] [place], [address] [place] [address] [address] [place] [id number] 0 Phone: () - 08/30 CBC w/ auto diff WBC K/uL 3.0 8.9 8.8 FINAL Tamanna noel [facility] [place], [address] [place] [address] [address] [place] [id number] 0 Phone: () - 08/30 CBC w/ auto diff HGB g/dL 11.3 15.2 12.3 FINAL Tam[facility] no[facility] [place], [address] [place] [address] [address] [place] [id number] 0 Phone: () - 08/30 CBC w/ auto diff PLT K/uL 113.0 364.0 161 FINAL Tamanna noel [facility] [place], [address] [place] [address] [address] [place] [id number] 0 Phone: () - 08/30 CBC w/ auto diff Avtar # (ANC) K/uL 1.6 6.6 5.6 FINAL Tamanna noel [facility] [place], [address] [place] [address] [address] [place] [id number] 0 Phone: () - 08/30 CBC w/ auto diff Avtar % % 43.0 74.0 62.9 FINAL Tamanna noel [facility] [place], [address] [place] [address] [address] [place] [id number] 0 Phone: () - 08/30 CBC w/ auto diff IG % % 0.0 0.5 0.5 FINAL Tamanna noel [facility] [place], [address] [place] [address] [address] [place] [id number] 0 Phone: () - 08/30 CBC w/ auto diff IG # K/uL 0.0 0.03 0.04 High FINAL Tamanna noel [facility] - [place], [address] [place] [id number] 0 Phone: () - 08/30 CBC w/ auto diff LY % % 14.0 41.0 23.7 FINAL Tamanna noel [facility] - [place], [address] [place] [id number] 0 Phone: () - 08/30 CBC w/ auto diff MO % % 6.0 15.0 7.2 FINAL Tam[facility] noel [facility] - [place], [address] [place] [id number] 0 Phone: () - 08/30 CBC w/ auto diff EO % % 0.0 7.0 5.1 FINAL Tam[facility] noel [facility] - [place], [address] [place] [id number] 0 Phone: () - 08/30 CBC w/ auto diff BA % % 0.0 2.0 0.6 FINAL Tam[facility] noel [facility] - [place], [address] [place] [id number] 0 Phone: () - 08/30 CBC w/ auto diff LY # K/uL 0.4 3.6 2.1 FINAL Tamanan noel [facility] - [place], [address] [place] [id number] 0 Phone: () - 08/30 CBC w/ auto diff MO # K/uL 0.2 1.3 0.6 FINAL [facility] no[facility] [place], [address] [place] [id number] 0 Phone: () - 08/30 CBC w/ auto diff EO # K/uL 0.0 0.6 0.5 FINAL Tam[facility] noel [facility] [place], [address] [place] [id number] 0 Phone: () - 08/30 CBC w/ auto diff BA # K/uL 0.0 0.2 0.1 FINAL [facility] no[facility] [place], [address] [place] [address] [address] [place] [id number] 0 Phone: () - 08/30 CBC w/ auto diff NRBC % #/100W BC 0.0 0.2 0.0 FINAL [facility] no[facility] [place], [address] [place] [address] [address] [place] [id number] 0 Phone: () - 08/30 CBC w/ auto diff RBC M/uL 3.9 5.1 3.53 Low FINAL Tam[facility] no[facility] [place], [address] [place] [address] [address] [place] [id number] 0 Phone: () - 08/30 CBC w/ auto diff HCT % 35.0 48.0 37.1 FINAL Tam[facility] no[facility] - [place], [address] [place] [id number] 0 Phone: () - 08/30 CBC w/ auto diff MCV fL 80.0 104.0 105.1 High FINAL Tamanna noel [facility] - [place], [address] [place] [address] [address] [place] [id number] 0 Phone: () - 08/30 CBC w/ auto diff MCH pg 26.0 35.0 34.8 FINAL [facility] no[facility] [place], [address] [place] [address] [address] [place] [id number] 0 Phone: () - 08/30 CBC w/ auto diff MCHC g/dL 30.0 35.0 33.2 FINAL Tamanna noel [facility] - [place], [address] [place] [address] [address] [place] [id number] 0 Phone: () - 08/30 CBC w/ auto diff MPV fL 9.5 13.4 9.7 FINAL Tamanna noel [facility] - [place], [address] [place] [address] [address] [place] [id number] 0 Phone: () - 08/30 CBC w/ auto diff RDW % 11.4 16.1 12.40 FINAL [facility] noel [facility] [place], [address] [place] [address] [address] [facility] [id number] 0 Phone: () - 08/30 TSH panel TSH uIU/ml 0.32 5.0 2.25 Test performed at [facility] on a [employer] 2000 Immunoass ay Analyzer that uses an immunoenz ymometric sandwich assay for analysis. Patient testing should not be performed using multiple methodolo gies due to analytica l variation seen between test methodolo gies. FINAL Tamanna Peters [facility] - [address] [id number] 0 Phone: () - 08/30 CA 125 panel CA 125 UNITS/ ML 0.0 34.0 12.90 Test performed at [facility] on a [employer] 2000 Immunoass ay Analyzer that uses an immunoenz ymometric sandwich assay for analysis. Patient testing should not be performed using multiple methodolo gies due to analytica l variation seen between test methodolo gies. FINAL Tamanna noel [facility] [address] [id number] 0 Phone: () - 08/30 CMP Sodiu m mmol/L 135.0 145.0 135 FINAL [facility] 08/30 CMP Potas sium mmol/L 3.5 5.0 4.6 FINAL [facility] 08/30 CMP Chlor sathish mmol/L 98.0 110.0 96 Low FINAL [facility] 08/30 CMP CO2 mmol/L 21.0 31.0 32 High FINAL [facility] 08/30 CMP Anion gap, mmol/ L 5.0 18.0 7.0% FINAL [facility] 08/30 CMP Gluco se mg/dL 65.0 100.0 92 FINAL [facility] 08/30 CMP Calci um mg/dL 8.5 10.5 9.1 FINAL [facility] 08/30 CMP BUN mg/dL 8.0 25.0 10 FINAL [facility] 08/30 CMP Creat inine mg/dL 0.57 1.11 0.95 FINAL [facility] 08/30 CMP BUN/C reati nine ratio 10.0 20.0 11.0% FINAL Tamanna Rolon 08/30 CMP GFR Afric an Bashir can, estim ated ml/min /1.73m 2 >60 FINAL Tamanna Rolon 08/30 CMP GFR non-A frica n Bashir can, estim ated ml/min /1.73m 2 58 [...] GOT IU/L 2.0 40.0 30 Test Performed by:[facility] [address], [address] - [facility], [place] [address]Esjg e [phone] FINAL Tamanna Rolon 08/30 Rashida stero l mg/dL 100.0 199.0 146 FINAL Tamanna Rolon 08/30 Chemi strie s Fasti ng statu s RANDOM Test Performed by:[facility] [address], [address] - [facility], [place] [address]Noip e [phone] FINAL Tamanna Rolon 08/30 Phosp horus mg/dL 2.3 4.7 2.6 Test Performed by:[facility] [address], [address] - [facility], [place] [address]Yljr e [phone] FINAL Tamanna Rolon 08/30 LDH U/L 120.0 246.0 184 FINAL Tamanna Mcginnis a [facility] [address] [id number] [phone] Phone: () - 09/27 Magne sium, mg/dL mg/dL 1.5 2.3 1.4 Low FINAL Tamanna noel [address] [id number] 0 Phone: () - 09/27 CA 125 UNITS/ ML 0.0 34.0 10.40 Test performed at [facility] on a [employer] Immuno[employer] ay Analyzer that uses an immunoenz ymometric sandwich assay for analysis. Patient testing should not be performed using multiple methodolo gies due to analytica l variation seen between test methodolo gies. FINAL Tamanna noel [address] [phone] 0 Phone: () - 09/27 Retic ulocy te, absol carlos M/uL 0.02 0.08 0.09 High FINAL Tamanna noel [facility], [address] [place] [address] [address] [place] [id number] 0 Phone: () - 09/27 Retic ulocy te count % 0.4 1.6 2.55 High FINAL Tamanna noel Oncology - [facility], [address] [place] [address] [address] [place] [id number] 0 Phone: () - 09/27 Immat ure retic ulocy te fract ion, % % 0.0 16.5 26.30 High FINAL Tamanna noel Oncology - [facility], [address] [place] [address] [address] [place] [id number] 0 Phone: () - 09/27 Retic ulocy te cellu lar hemog lobin pg 28.0 37.0 38.2 High FINAL Tamanna noel Oncology [facility], [address] [place] [address] [address] [place] [id number] 0 Phone: () - 09/27 CBC w/ auto diff WBC K/uL 3.0 8.9 10.3 High FINAL Tamanna noel On[facility], [address] [place] [address] [address] [place] [id number] 0 Phone: () - 09/27 CBC w/ auto diff HGB g/dL 11.3 15.2 12.9 FINAL Tam[facility] noel [facility] - [place], [address] [place] [id number] 0 Phone: () - 09/27 CBC w/ auto diff PLT K/uL 113.0 364.0 190 FINAL [facility] no[facility] [place], [address] [place] [address] 200 [place] [id number] 0 Phone: () - 09/27 CBC w/ auto diff Avtar # (ANC) K/uL 1.6 6.6 6.7 High FINAL Tamanna noel [facility] - [place], [address] [place] [address] 200 [place] [id number] 0 Phone: () - 09/27 CBC w/ auto diff Avtar % % 43.0 74.0 64.3 FINAL [facility] no[facility] [place], [address] [place] [address] [address] [place] [id number] 0 Phone: () - 09/27 CBC w/ auto diff IG % % 0.0 0.5 0.7 High FINAL Tamanna noel [facility] - [place], [address] [place] [address] 200 [place] [id number] 0 Phone: () - 09/27 CBC w/ auto diff IG # K/uL 0.0 0.03 0.07 High FINAL Tamanna noel [facility] - [place], [address] [place] [address] 200 [place] [id number] 0 Phone: () - 09/27 CBC w/ auto diff LY % % 14.0 41.0 23.6 FINAL Tamanna noel [facility] [place], [address] [place] [address] 200 [place] [id number] 0 Phone: () - 09/27 CBC w/ auto diff MO % % 6.0 15.0 6.8 FINAL Tamanna noel [facility] - [place], [address] [place] [address] 200 [place] [id number] 0 Phone: () - 09/27 CBC w/ auto diff EO % % 0.0 7.0 4.1 FINAL Tamanna noel [facility] - [place], [address] [place] [id number] 0 Phone: () - 09/27 CBC w/ auto diff BA % % 0.0 2.0 0.5 FINAL Tamanna noel [facility] - [place], [address] [place] [id number] 0 Phone: () - 09/27 CBC w/ auto diff LY # K/uL 0.4 3.6 2.4 FINAL Tamanna noel [facility] - [place], [address] [place] [address] [address] [place] [id number] 0 Phone: () - 09/27 CBC w/ auto diff MO # K/uL 0.2 1.3 0.7 FINAL Tamanna noel [facility] - [place], [address] [place] [address] [address] [place] [id number] 0 Phone: () - 09/27 CBC w/ auto diff EO # K/uL 0.0 0.6 0.4 FINAL Tam[facility] noel [facility] - [place], [address] [place] [address] [address] [place] [id number] 0 Phone: () 09/27 CBC w/ auto diff BA # K/uL 0.0 0.2 0.1 FINAL Tamanna noel [facility] - [place], [address] [place] [address] [address] [place] [id number] 0 Phone: () - 09/27 CBC w/ auto diff NRBC % #/100W BC 0.0 0.2 0.0 FINAL Tamanna noel [facility] - [place], [address] [place] [address] [address] [place] [id number] 0 Phone: () - 09/27 CBC w/ auto diff RBC M/uL 3.9 5.1 3.70 Low FINAL Tamanna noel [facility] - [place], [address] [place] [address] [address] [place] [id number] 0 Phone: () - 09/27 CBC w/ auto diff HCT % 35.0 48.0 38.7 FINAL [facility], [address] [place] [address] [address] [place] [id number] 0 Phone: () - 09/27 CBC w/ auto diff MCV fL 80.0 104.0 104.6 High FINAL [facility], [address] [place] [address] [address] [place] [id number] 0 Phone: () - 09/27 CBC w/ auto diff MCH pg 26.0 35.0 34.9 FINAL [facility], [address] [place] [address] [address] [place] [id number] 0 Phone: () - 09/27 CBC w/ auto diff MCHC g/dL 30.0 35.0 33.3 FINAL Tamanna noel Oncology - [facility], [address] [place] [address] [address] [place] [id number] 0 Phone: () - 09/27 CBC w/ auto diff MPV fL 9.5 13.4 9.1 Low FINAL Tamanna noel Oncology - [facility], [address] [place] [address] [address] [place] [id number] 0 Phone: () - 09/27 CBC w/ auto diff RDW % 11.4 16.1 12.40 FINAL Tamanna noel Oncology - [facility], [address] [place] [id number] 0 Phone: () - 09/27 TSH uIU/ml 0.32 5.0 2.56 Test performed at [facility] on a [employer] 2000 Immunoass ay Analyzer that uses an immunoenz ymometric sandwich assay for analysis. Patient testing should not be performed using multiple hallie soto due to analytica l variation seen between test hallie soto. FINAL Tamanna noel [facility] - [place], [address] [facility] [address] [facility] [id number] 0 Phone: () - 09/27 Phosp horus mg/dL 2.3 4.7 2.8 Test Performed by:[facility] [address] - [facility] [place], [place] [address]Dhit e : FINAL Tamanna Rolon 09/27 Rashida stero l mg/dL 100.0 199.0 148 FINAL Tamannanithin Rolon 09/27 Chemi strie s Fasti ng statu s RANDOM Test Performed by:[facility] [employer] [facility] [address] - [facility] [place], [place] [address]Tbrg e : FINAL Tamanna Rolon 09/27 CMP Sodiu m mmol/L 135.0 145.0 131 Low FINAL Tamannanithin Rolon 09/27 CMP Potas sium mmol/L 3.5 5.0 4.6 FINAL Tamnananithin Rolon 09/27 CMP Chlor sathish mmol/L 98.0 110.0 92 Low FINAL Tamannanithin Rolon 09/27 CMP CO2 mmol/L 21.0 31.0 29 FINAL Tamanna Kenny 09/27 CMP Anion gap, mmol/ L 5.0 18.0 10.0% FINAL Tamannanithin Rolon 09/27 CMP Gluco se mg/dL 65.0 100.0 96 FINAL Tamannanithin Rolon 09/27 CMP Calci um mg/dL 8.5 10.5 9.0 FINAL Tamannanithin Rolon 09/27 CMP BUN mg/dL 8.0 25.0 11 FINAL Tamanna Kenny 09/27 CMP Creat inine mg/dL 0.57 1.11 1.09 FINAL Tamanna Kenny 09/27 CMP BUN/C reati nine ratio 10.0 20.0 10.0% FINAL Tamanna Kenny 09/27 CMP GFR Afric an Ameri can, estim ated ml/min /1.73m 2 60 Low FINAL Tamanna Gonzales 09/27 CMP GFR non-A frica n Ameri can, estim ated ml/min /1.73m 2 50 Low FINAL Tamannanithin Rolon 09/27 CMP Album in g/dL 3.2 4.6 4.0 FINAL Tamanna Gonzales 09/27 CMP Total prote in g/dL 6.0 [...] GOT IU/L 2.0 40.0 25 Test Performed by:[facility] [address] - [facility], [place] [address]Axsv e : FINAL Tamanna Rolon 09/27 LDH U/L 120.0 246.0 176 FINAL Tamanna noel On[facility] [address] [id number] 0 Phone: () - 09/27 Folat e, serum ng/mL 3.0 16.0 17.4 High FINAL Tamanna noel On[facility] [address] [id number] 0 Phone: () - 10/25 CA 125 panel CA 125 UNITS/ ML 0.0 34.0 6.90 Test performed at [facility] on a [employer] 2000 Immunoass ay Analyzer that uses an immunoenz ymometric sandwich assay for analysis. Patient testing should not be performed using multiple methoddanelle soto due to analytica l variation seen between test methoddanelle soto. FINAL Tamanna noel On[facility] [address] [place] [address] [phone] 0 Phone: () - 10/25 Retic ulocy te, absol carlos M/uL 0.02 0.08 0.08 FINAL Tamanna noel Oncology [facility], [address] [facility] [id number] 0 Phone: () - 10/25 Retic ulocy te count % 0.4 1.6 2.29 High FINAL [facility], [address] [place] [id number] 0 Phone: () - 10/25 Immat ure retic ulocy te fract ion, % % 0.0 16.5 18.50 High FINAL [facility], [address] [place] [address] [address] [place] [id number] 0 Phone: () - 10/25 Retic ulocy te cellu lar hemog lobin pg 28.0 37.0 38.2 High FINAL [facility], [address] [place] [id number] 0 Phone: () - 10/25 TSH uIU/ml 0.32 5.0 2.28 Test performed at [facility] on a [employer] Immunoass ay Analyzer that uses an immunoenz ymometric sandwich assay for analysis. Patient testing should not be performed using multiple methoddanelle soto due to analytica l variation seen between test methoddanelle soto. FINAL Tamanna noel Oncology [facility], [address] [facility] [address] [place] [id number] 0 Phone: () - 10/25 CBC w/ auto diff WBC K/uL 3.0 8.9 9.3 High FINAL Tamanna noel Oncology [facility], [address] [place] [id number] 0 Phone: () - 10/25 CBC w/ auto diff HGB g/dL 11.3 15.2 12.9 FINAL [facility], [address] [place] [id number] 0 Phone: () - 10/25 CBC w/ auto diff PLT K/uL 113.0 364.0 162 FINAL Tamanna noel Oncology [facility], [address] [place] [id number] 0 Phone: () - 10/25 CBC w/ auto diff Avtar # (ANC) K/uL 1.6 6.6 6.1 FINAL Tamanna noel [facility] - [place], [address] [place] [address] [address] [place] [id number] 0 Phone: () - 10/25 CBC w/ auto diff Avtar % % 43.0 74.0 64.9 FINAL Tamanna noel [facility] - [place], [address] [place] [address] [address] [place] [id number] 0 Phone: () - 10/25 CBC w/ auto diff IG % % 0.0 0.5 0.5 FINAL Tamanna noel [facility] - [place], [address] [place] [address] [address] [place] [id number] 0 Phone: () - 10/25 CBC w/ auto diff IG # K/uL 0.0 0.03 0.05 High FINAL Tamanna noel [facility] - [place], [address] [place] [address] [address] [place] [id number] 0 Phone: () - 10/25 CBC w/ auto diff LY % % 14.0 41.0 22.9 FINAL Tamanna noel [facility] - [place], [address] [place] [address] [address] [place] [id number] 0 Phone: () - 10/25 CBC w/ auto diff MO % % 6.0 15.0 7.1 FINAL Tamanna noel [facility] - [place], [address] [place] [address] [address] [place] [id number] 0 Phone: () - 10/25 CBC w/ auto diff EO % % 0.0 7.0 4.2 FINAL Tamanna noel [facility] - [place], [address] [place] [address] [address] [place] [id number] 0 Phone: () - 10/25 CBC w/ auto diff BA % % 0.0 2.0 0.4 FINAL Tamanna noel [facility] - [place], [address] [place] [address] [address] [place] [id number] 0 Phone: () - 10/25 CBC w/ auto diff LY # K/uL 0.4 3.6 2.1 FINAL Tamanna noel [facility] - [place], [address] [place] [id number] 0 Phone: () - 10/25 CBC w/ auto diff MO # K/uL 0.2 1.3 0.7 FINAL Tamanna noel [facility] - [place], [address] [place] [id number] 0 Phone: () - 10/25 CBC w/ auto diff EO # K/uL 0.0 0.6 0.4 FINAL Tamanna noel [facility] - [place], [address] [place] [id number] 0 Phone: () - 10/25 CBC w/ auto diff BA # K/uL 0.0 0.2 0.0 FINAL Tamanna noel [facility] - [place], [address] [place] [id number] 0 Phone: () - 10/25 CBC w/ auto diff NRBC % #/100W BC 0.0 0.2 0.0 FINAL Tamanna noel [facility] - [place], [address] [place] [id number] 0 Phone: () - 10/25 CBC w/ auto diff RBC M/uL 3.9 5.1 3.70 Low FINAL Tamanna noel [facility] - [place], [address] [place] [address] 200 [place] [id number] 0 Phone: () - 10/25 CBC w/ auto diff HCT % 35.0 48.0 39.0 FINAL [facility] [place], [address] [place] [id number] [phone] Phone: () - 10/25 CBC w/ auto diff MCV fL 80.0 104.0 105.4 High FINAL [facility] [place], [address] [place] [address] [address] [place] [id number] 0 Phone: () - 10/25 CBC w/ auto diff MCH pg 26.0 35.0 34.9 FINAL [facility] [place], [address] [place] [id number] 0 Phone: () - 10/25 CBC w/ auto diff MCHC g/dL 30.0 35.0 33.1 FINAL [facility] [place], [address] 200 [facility] [id number] [phone] Phone: () - 10/25 CBC w/ auto diff MPV fL 9.5 13.4 9.8 FINAL [facility] [place] [facility], [address] 200 [facility] [id number] [phone] Phone: () - 10/25 CBC w/ auto diff RDW % 11.4 16.1 13.10 FINAL [facility] [place] [facility], [address] [address] 200 [facility] [phone] Phone: () - 10/25 Magne sium, mg/dL mg/dL 1.5 2.3 1.9 FINAL Tamanna noel [facility], 345 [facility] 100 [facility] [phone] Phone: () - 10/25 CMP Sodiu [...] um mg/dL 8.5 10.5 8.5 FINAL Tamanna Rolon 10/25 CMP BUN mg/dL 8.0 25.0 23 FINAL Tamanna Rolon 10/25 CMP Creat inine mg/dL 0.57 1.11 1.15 High FINAL Tamanna Rolon 10/25 CMP BUN/C reati nine ratio 10.0 20.0 20.0% FINAL [facility] 10/25 CMP GFR Afric an Briceeri can, estim ated ml/min /1.73m 2 56 Low FINAL Tamanna Gonzales 10/25 CMP GFR non-A frica n Ameri can, estim ated ml/min /1.73m 2 47 Low FINAL [facility] 10/25 CMP Album in g/dL 3.2 4.6 4.0 FINAL Tamanna Gonzales 10/25 CMP Total prote in g/dL 6.0 8.0 6.8 FINAL Tamanna Gonzales 10/25 CMP Globu samreen g/dL 2.0 3.7 2.8 FINAL Tamanna Gonzales 10/25 CMP A/G ratio 1.0 2.0 1.4% FINAL [facility] 10/25 CMP Bilir ubin, total mg/dL 0.2 1.2 0.6 FINAL Tamanna Gonzales 10/25 CMP Alkal ine phosp hatas e IU/L 50.0 136.0 74 FINAL [facility] 10/25 CMP ALT/S GPT IU/L 8.0 45.0 17 FINAL [facility] 10/25 CMP AST/S GOT IU/L 2.0 40.0 29 Test Performed by:[facility] [address] - [facility], [place] [address]Bzzn e [phone] [facility] 10/25 Rashida stero l mg/dL 100.0 199.0 142 FINAL [facility] 10/25 Chemi strie s Fasti ng statu s RANDOM Test Performed by:[facility] [address] - [facility] [place] [address]Ytmd e [phone] [facility] 10/25 Phosp horus mg/dL 2.3 4.7 3.3 Test Performed by:[facility] [address], [address] - [facility], [place] [address]Drzn e : FINAL Tamanna Rolon 10/25 Folat e, serum ng/mL 3.0 16.0 Folate greater than 20 FINAL Tamanna noel [facility], [address] [place] [address] [phone] 0 Phone: () - 10/25 LDH U/L 120.0 246.0 185 FINAL Tamanna noel [address] [id number] 0 Phone: () - 11/22 CBC w/ auto diff LY # K/uL 0.4 3.6 1.8 FINAL Tamanna noel Oncology - [place] [facility], [address] [place] [address] [address] [place] [id number] 0 Phone: () - 11/22 CBC w/ auto diff MO # K/uL 0.2 1.3 0.7 FINAL Tamanna noel Oncology [place] [facility], [address] [place] [address] [address] [place] [id number] 0 Phone: () - 11/22 CBC w/ auto diff EO # K/uL 0.0 0.6 0.4 FINAL Tamanna noel Oncology [place] [facility], [address] [place] [address] [address] [place] [id number] 0 Phone: () - 11/22 CBC w/ auto diff BA # K/uL 0.0 0.2 0.1 FINAL Tamanna noel Oncology [place] [facility], [address] [place] [address] [address] [place] [id number] 0 Phone: () - 11/22 CBC w/ auto diff NRBC % #/100W BC 0.0 0.2 0.0 FINAL Tamanna noel Oncology [place] [facility], [address] [place] [address] [address] [place] [id number] 0 Phone: () - 11/22 CBC w/ auto diff RBC M/uL 3.9 5.1 4.15 FINAL Tamanna noel Oncology [place] [facility], [address] [place] [address] [address] [place] [id number] 0 Phone: () - 11/22 CBC w/ auto diff HCT % 35.0 48.0 42.3 FINAL Tamanna noel [facility] - [place], [address] [place] [address] [address] [place] [id number] 0 Phone: () - 11/22 CBC w/ auto diff MCV fL 80.0 104.0 101.9 FINAL Tamanna noel [facility] - [place], [address] [place] [address] [address] [place] [id number] 0 Phone: () - 11/22 CBC w/ auto diff MCH pg 26.0 35.0 33.5 FINAL Tamanna noel [facility]cology - [place], [address] [place] [address] [address] [place] [id number] 0 Phone: () - 11/22 CBC w/ auto diff MCHC g/dL 30.0 35.0 32.9 FINAL Tamanna noel Oncology - [place], [address] [place] [address] [address] [place] [id number] 0 Phone: () - 11/22 CBC w/ auto diff MPV fL 9.5 13.4 9.3 Low FINAL Tamanna noel Oncology - [place], [address] [place] [address] [address] [place] [id number] 0 Phone: () - 11/22 CBC w/ auto diff RDW % 11.4 16.1 12.70 FINAL Tamanna noel Oncology - [place], [address] [place] [address] [address] [place] [id number] 0 Phone: () - 11/22 CBC w/ auto diff WBC K/uL 3.0 8.9 8.8 FINAL Tamanna noel Oncology - [place], [address] [place] [address] [address] [place] [id number] 0 Phone: () - 11/22 CBC w/ auto diff HGB g/dL 11.3 15.2 13.9 FINAL Tamanna noel Oncology - [place], [address] [place] [address] [address] [place] [id number] 0 Phone: () - 11/22 CBC w/ auto diff PLT K/uL 113.0 364.0 197 FINAL Tamanna noel Oncology - [place], [address] [place] [address] [address] [place] [id number] 0 Phone: () - 11/22 CBC w/ auto diff Avtar # (ANC) K/uL 1.6 6.6 5.8 FINAL Tamanna noel Oncology - [place], [address] [place] [address] [address] [place] [id number] 0 Phone: () - 11/22 CBC w/ auto diff Avtar % % 43.0 74.0 66.0 FINAL Tamanna noel Oncology - [place], [address] [place] [address] [address] [place] [id number] 0 Phone: () - 11/22 CBC w/ auto diff IG % % 0.0 0.5 0.5 FINAL Tamanna noel Oncology - [place], [address] [place] [id number] 0 Phone: () - 11/22 CBC w/ auto diff IG # K/uL 0.0 0.03 0.04 High FINAL Tamanna noel Oncology - [place], [address] [place] [id number] 0 Phone: () - 11/22 CBC w/ auto diff LY % % 14.0 41.0 20.2 FINAL Tamanna noel Oncology - [place], [address] [place] [address] [address] [place] [id number] 0 Phone: () - 11/22 CBC w/ auto diff MO % % 6.0 15.0 7.8 FINAL Tamanna noel Oncology - [place], [address] [place] [address] [address] [place] [id number] 0 Phone: () - 11/22 CBC w/ auto diff EO % % 0.0 7.0 4.9 FINAL Tamanna noel Oncology - [place], [address] [place] [id number] 0 Phone: () - 11/22 CBC w/ auto diff BA % % 0.0 2.0 0.6 FINAL Tamanna noel Oncology - [place], [address] [address] [place] [id number] 0 Phone: () - 11/22 CMP Album in g/dL 3.2 5.2 4.5 FINAL Tamanna noel [address] [id number] 0 Phone: () - 11/22 CMP Alkal ine phosp hatas e U/L 46.0 116.0 67 FINAL Tamanna Peters [address] [id number] 0 Phone: () - 11/22 CMP ALT/S GPT U/L 7.0 40.0 13 FINAL Tamanna Mcginnis bert [address] [id number] 0 Phone: () - 11/22 CMP AST/S GOT U/L 13.0 40.0 20 FINAL Tamanna Mcginnis bret [address] [id number] 0 Phone: () - 11/22 CMP BUN mg/dL 9.0 23.0 20 FINAL Tamanna noel [address] [id number] 0 Phone: () - 11/22 CMP Calci um mg/dL 8.7 10.4 9.1 FINAL Tamanna Mcginnis bert [address] [id number] 0 Phone: () - 11/22 CMP Chlor sathish mmol/L 96.0 114.0 96 FINAL Tamanna noel [address] [id number] 0 Phone: () - 11/22 CMP CO2 mmol/L 20.0 31.0 27 FINAL Tamanna Mcginnis[address] [id number] 0 Phone: () - 11/22 CMP Creat inine mg/dL 0.5 1.2 1.06 FINAL Tamanna Mcginnis[address] [id number] 0 Phone: () - 11/22 CMP GFR estim ate ml/min /1.73m ^2 52.8 Low GFR is calculate d using the CKD-EPI equation. FINAL Tamanna Mcginnis[address] [id number] 0 Phone: () - 11/22 CMP Gluco se mg/dL 73.0 126.0 94 FINAL Tamanna Peters [address] [id number] 0 Phone: () - 11/22 CMP Potas sium mmol/L 3.5 5.1 5.0 [facility] Tamanna Mcginnis[address] [id number] 0 Phone: () - 11/22 CMP Sodiu m mmol/L 136.0 145.0 130 Low FINAL Tamanna Mcginnis[address] [id number] 0 Phone: () - 11/22 CMP Bilir ubin, total mg/dL 0.3 1.2 0.5 [facility] Tamanna Mcginnis[address] [id number] 0 Phone: () - 11/22 CMP Total prote in g/dL 5.7 8.2 6.7 [facility] Tamanna Mcginnis[address] [id number] 0 Phone: () - 11/22 CA 125 panel CA 125 UNITS/ ML 0.0 34.0 8.10 Test performed at [facility] on a [employer] Immuno[employer] ay Analyzer that uses an immunoenz ymometric sandwich assay for analysis. Patient testing should not be performed using multiple hallie soto due to analytica l variation seen between test hallie soto. FINAL Tamanna Mcginnis[address] [id number] 0 Phone: () - 11/22 [facility] other lab See galley worker d 11/22 [facility] other lab See galley worker d 11/22 Mis other lab See galley worker d 02/11 CA 125 panel CA 125 UNITS/ ML 0.0 34.0 8.70 Test performed at [facility] on a [employer] 2000 Immunoass ay Analyzer that uses an immunoenz ymometric sandwich assay for analysis. Patient testing should not be performed using multiple methodolo ginorris due to analytica l variation seen between test methodolo ginorris. FINAL Tamanna noel Oncology - [place], [address] [facility] [address] [place] [id number] 0 Phone: () - 02/11 iSTAT creat inine panel Creat inine , iSTAT mg/dl 0.6 1.3 1.3 FINAL Tamanna noel Oncology - [place] [facility], [address] [place] [address] [address] [place] [id number] 0 Phone: () - 02/11 iSTAT creat inine panel GFR estim ate ml/min /1.73m ^2 41.2 Low GFR is calculate d using the CKD-EPI equation. FINAL Tamanna noel Oncology - [place] [facility], [address] [place] [address] [address] [place] [id number] 0 Phone: () - 02/11 CBC w/ auto diff WBC K/uL 3.0 8.9 9.2 High FINAL Tamanna noel Oncology - [place] [facility], [address] [place] [address] [address] [place] [id number] 0 Phone: () - 02/11 CBC w/ auto diff HGB g/dL 11.3 15.2 13.3 FINAL Tamanna noel Oncology - [place] [facility], [address] [place] [address] [address] [place] [id number] 0 Phone: () - 02/11 CBC w/ auto diff PLT K/uL 113.0 364.0 267 FINAL Tamanna noel Oncology [place] [facility], [address] [place] [address] [address] [place] [id number] 0 Phone: () - 02/11 CBC w/ auto diff Avtar # (ANC) K/uL 1.6 6.6 6.1 FINAL Tamanna noel Oncology - [place], [address] [place] [id number] 0 Phone: () - 02/11 CBC w/ auto diff Avtar % % 43.0 74.0 66.8 FINAL Tamanna noel Oncology - [place], [address] [place] [id number] 0 Phone: () - 02/11 CBC w/ auto diff IG % % 0.0 0.5 1.9 High FINAL Tamanna noel Oncology - [place], [address] [place] [id number] 0 Phone: () - 02/11 CBC w/ auto diff IG # K/uL 0.0 0.03 0.17 High FINAL Tamanna noel Oncology - [place], [address] [place] [id number] 0 Phone: () - 02/11 CBC w/ auto diff LY % % 14.0 41.0 19.2 FINAL Tamanna noel Oncology - [place], [address] [place] [id number] 0 Phone: () - 02/11 CBC w/ auto diff MO % % 6.0 15.0 9.2 FINAL Tamanna noel Oncology - [place], [address] 200 [place] [id number] 0 Phone: () - 02/11 CBC w/ auto diff EO % % 0.0 7.0 2.5 FINAL Tamanna noel Oncology - [place], [address] [place] [id number] 0 Phone: () - 02/11 CBC w/ auto diff BA % % 0.0 2.0 0.4 FINAL Tamanna noel Oncology - [place], [address] [place] [id number] 0 Phone: () - 02/11 CBC w/ auto diff LY # K/uL 0.4 3.6 1.8 FINAL Tamanna noel Oncology - [place], [address] [place] [id number] 0 Phone: () - 02/11 CBC w/ auto diff MO # K/uL 0.2 1.3 0.8 FINAL Tamanna noel Oncology - [place], [address] [place] [address] [address] [place] [id number] 0 Phone: () - 02/11 CBC w/ auto diff EO # K/uL 0.0 0.6 0.2 FINAL Tamanna noel Oncology - [place], [address] [place] [address] 200 [place] [id number] 0 Phone: () - 02/11 CBC w/ auto diff BA # K/uL 0.0 0.2 0.0 FINAL Tamanna noel Oncology - [place], [address] [place] [address] [address] [place] [id number] 0 Phone: () - 02/11 CBC w/ auto diff NRBC % #/100W BC 0.0 0.2 0.2 FINAL Tamanna noel Oncology - [place], [address] [place] [address] [address] [place] [id number] 0 Phone: () - 02/11 CBC w/ auto diff RBC M/uL 3.9 5.1 4.09 FINAL Tamanna noel Oncology - [place], [address] [place] [address] [address] [place] [id number] 0 Phone: () - 02/11 CBC w/ auto diff HCT % 35.0 48.0 40.6 FINAL Tamanna noel Oncology - [place], [address] [place] [address] [address] [place] [id number] 0 Phone: () - 02/11 CBC w/ auto diff MCV fL 80.0 104.0 99.3 FINAL Tamanna noel Oncology - [place], [address] [place] [address] [address] [place] [id number] 0 Phone: () - 02/11 CBC w/ auto diff MCH pg 26.0 35.0 32.5 FINAL Tamanna noel Oncology - [place], [address] [place] [address] 200 [place] [id number] 0 Phone: () - 02/11 CBC w/ auto diff MCHC g/dL 30.0 35.0 32.8 FINAL Tamanna noel [facility], [address] [place] [address] [address] [place] [id number] 0 Phone: () - 02/11 CBC w/ auto diff MPV fL 9.5 13.4 8.6 Low FINAL Tamanna noel [facility], [address] [place] [address] [address] [place] [id number] 0 Phone: () - 02/11 CBC w/ auto diff RDW % 11.4 16.1 14.00 FINAL Tamanna noel [facility], [address] [place] [address] [address] [place] [id number] 0 Phone: () - 02/11 CMP Album in g/dL 3.2 5.2 4.3 FINAL Tamanna noel [address] [id number] 0 Phone: () - 02/11 CMP Alkal ine phosp hatas e U/L 46.0 116.0 53 FINAL Tamanna noel [address] [id number] 0 Phone: () - 02/11 CMP ALT/S GPT U/L 7.0 40.0 14 FINAL Tamanna noel [address] [id number] 0 Phone: () - 02/11 CMP AST/S GOT U/L 13.0 40.0 22 FINAL Tamanna noel [address] [id number] 0 Phone: () - 02/11 CMP BUN mg/dL 9.0 23.0 7 Low FINAL Tamanna noel [address] [id number] 0 Phone: () - 02/11 CMP Calci um mg/dL 8.7 10.4 9.6 FINAL Tamanna Gonzales [address] [id number] 0 Phone: () - 02/11 CMP Chlor sathish mmol/L 96.0 114.0 91 Low FINAL Tamanna noel [address] [id number] 0 Phone: () - 02/11 CMP CO2 mmol/L 20.0 31.0 26 [facility] Tamanna Mcginnis[address] [id number] 0 Phone: () - 02/11 CMP Creat inine mg/dL 0.5 1.2 1.03 [facility] Tamanna Mcginnis[address] [id number] 0 Phone: () - 02/11 CMP GFR estim ate ml/min /1.73m ^2 54.5 Low GFR is calculate d using the CKD-EPI equation. [facility] Tamanna Mcginnis[address] [id number] 0 Phone: () - 02/11 CMP Gluco se mg/dL 73.0 126.0 97 [facility] Tamanna Mcginnis[address] [id number] 0 Phone: () - 02/11 CMP Potas sium mmol/L 3.5 5.1 4.5 [facility] Tamanna Mcginnis[address] [id number] 0 Phone: () - 02/11 CMP Sodiu m mmol/L 136.0 145.0 129 Low FINAL Tamanna Mcginnis[address] [id number] 0 Phone: () - 02/11 CMP Bilir ubin, total mg/dL 0.3 1.2 0.4 [facility] Tamanna Mcginnis bert [address] [id number] 0 Phone: () - 02/11 CMP Total prote in g/dL 5.7 8.2 6.6 FINAL Tamanna Peters a Oncology - [place], [address] [facility] [address] [place] [id number] 0 Phone: () - 02/11 [facility] other lab See galley worker d 05/23 CBC w/ auto diff WBC K/uL 3.0 8.9 8.9 FINAL Harper Peters [facility] - [place], [address] [place] [address] [address] [place] [id number] 0 Phone: () - 05/23 CBC w/ auto diff HGB g/dL 11.3 15.2 15.7 High FINAL Harper Mcginnisot a Oncology - [place], [address] [place] [address] [address] [place] [id number] 0 Phone: () - 05/23 CBC w/ auto diff PLT K/uL 113.0 364.0 220 FINAL Harper Mcginnisot a On[facility] - [place], [address] [place] [address] [address] [place] [id number] 0 Phone: () - 05/23 CBC w/ auto diff Avtar # (ANC) K/uL 1.6 6.6 5.5 FINAL Harper Mcginnisot a Oncology - [place], [address] [place] [address] [address] [place] [id number] 0 Phone: () - 05/23 CBC w/ auto diff Avtar % % 43.0 74.0 62.5 FINAL Harper Mcginnisot a Oncology - [place], [address] [place] [address] [address] [place] [id number] 0 Phone: () - 05/23 CBC w/ auto diff IG % % 0.0 0.5 0.5 FINAL Harper Mcginnisot a Oncology - [place], [address] [place] [address] [address] [place] [id number] 0 Phone: () - 05/23 CBC w/ auto diff IG # K/uL 0.0 0.03 0.04 High FINAL Harper Mcginnisot a Oncology - [place], [address] [place] [address] [address] [place] [id number] 0 Phone: () - 05/23 CBC w/ auto diff LY % % 14.0 41.0 22.5 FINAL Harper noel [facility] - [place], [address] [place] [address] [address] [place] [id number] 0 Phone: () - 05/23 CBC w/ auto diff MO % % 6.0 15.0 8.0 FINAL Harper nole [facility] - [place], [address] [place] [address] [address] [place] [id number] 0 Phone: () - 05/23 CBC w/ auto diff EO % % 0.0 7.0 5.9 FINAL Harper Mcginnisot bert Oncology - [place], [address] [place] [address] [address] [place] [id number] 0 Phone: () - 05/23 CBC w/ auto diff BA % % 0.0 2.0 0.6 FINAL Harper noel On[facility] - [place], [address] [place] [address] [address] [place] [id number] 0 Phone: () - 05/23 CBC w/ auto diff LY # K/uL 0.4 3.6 2.0 FINAL Harper noel Oncology - [place], [address] [place] [address] [address] [place] [id number] 0 Phone: () - 05/23 CBC w/ auto diff MO # K/uL 0.2 1.3 0.7 FINAL Harper noel [facility] - [place], [address] [place] [address] [address] [place] [id number] 0 Phone: () - 05/23 CBC w/ auto diff EO # K/uL 0.0 0.6 0.5 FINAL Harper noel [facility] - [place], [address] [place] [address] [address] [place] [id number] 0 Phone: () - 05/23 CBC w/ auto diff BA # K/uL 0.0 0.2 0.1 FINAL Harper Mcginnisot a Oncology - [place], [address] [place] [address] [address] [place] [id number] 0 Phone: () - 05/23 CBC w/ auto diff NRBC % #/100W BC 0.0 0.2 0.0 FINAL Harper noel [facility] - [place], [address] [place] [address] [address] [place] [id number] 0 Phone: () - 05/23 CBC w/ auto diff RBC M/uL 3.9 5.1 4.85 FINAL Harper noel [facility] - [place], [address] [place] [address] [address] [place] [id number] 0 Phone: () - 05/23 CBC w/ auto diff HCT % 35.0 48.0 47.1 FINAL Harper noel [facility] - [place], [address] [place] [address] [address] [place] [id number] 0 Phone: () - 05/23 CBC w/ auto diff MCV fL 80.0 104.0 97.1 FINAL Harper noel [facility] - [place], [address] [place] [address] [address] [place] [id number] 0 Phone: () - 05/23 CBC w/ auto diff MCH pg 26.0 35.0 32.4 FINAL Harper noel [facility] - [place], [address] [place] [address] [address] [place] [id number] 0 Phone: () - 05/23 CBC w/ auto diff MCHC g/dL 30.0 35.0 33.3 FINAL Harper noel [facility] - [place], [address] [place] [address] [address] [place] [id number] 0 Phone: () - 05/23 CBC w/ auto diff MPV fL 9.5 13.4 9.1 Low FINAL Harper noel Oncology [place] [facility], [address] [place] [address] [address] [place] [id number] 0 Phone: () - 05/23 CBC w/ auto diff RDW % 11.4 16.1 13.00 FINAL Harper noel Oncology [place] [facility], [address] [place] [address] [address] [place] [id number] 0 Phone: () - 05/23 CMP Album in g/dL 3.2 5.2 4.6 FINAL Harper Mcginnis bert [facility], [address] [place] [id number] 0 Phone: () - 05/23 CMP Alkal ine phosp hatas e U/L 46.0 116.0 58 FINAL Harper Peters [facility], [facility] [address] [id number] 0 Phone: () - 05/23 CMP ALT/S GPT U/L 7.0 40.0 11 FINAL [facility] [address] [id number] 0 Phone: () - 05/23 CMP AST/S GOT U/L 13.0 40.0 23 FINAL Harper Wheeler [place] [address] [id number] 0 Phone: () - 05/23 CMP BUN mg/dL 9.0 23.0 15 FINAL Harper Wheeler [place] [address] [id number] 0 Phone: () - 05/23 CMP Calci um mg/dL 8.7 10.4 10.1 FINAL Harper Wheeler [place] [address] [id number] 0 Phone: () - 05/23 CMP Chlor sathish mmol/L 96.0 114.0 88 Low FINAL Harper Wheeler [place] [address] [id number] 0 Phone: () - 05/23 CMP CO2 [...] 96 hour stability window. FINAL Harper noel [facility], [facility] [address] [phone] 0 Phone: () - 05/23 CMP Creat inine mg/dL 0.5 1.2 0.97 FINAL [place] [address] [id number] 0 Phone: () - 05/23 CMP GFR estim ate ml/min /1.73m ^2 58.5 Low GFR is calculate d using the CKD-EPI equation. FINAL Harper Wheeler [place] [address] [id number] 0 Phone: () - 05/23 CMP Gluco se mg/dL 73.0 126.0 72 Low FINAL Harper Wheeler [place] [address] [id number] 0 Phone: () - 05/23 CMP Potas sium mmol/L 3.5 5.1 4.8 FINAL Harper Wheeler [place] [address] [id number] 0 Phone: () - 05/23 CMP Sodiu m mmol/L 136.0 145.0 129 Low FINAL Harper Wheeler [place] [address] [id number] 0 Phone: () - 05/23 CMP Bilir ubin, total mg/dL 0.3 1.2 0.3 FINAL Harper Wheeler [place] [address] [id number] 0 Phone: () - 05/23 CMP Total prote in g/dL 5.7 8.2 7.3 FINAL Harper Wheeler [place] [address] [id number] 0 Phone: () - 05/23 CA 125 panel CA 125 UNITS/ ML 0.0 34.0 7.00 Test performed at [facility] on a [employer] Immuno[employer] ay Analyzer that uses an immunoenz ymometric sandwich assay for analysis. Patient testing should not be performed using multiple methodolo charles due to analytica l variation seen between test methoddanelle soto. FINAL Harper Wheeler [place] [address] [id number] 0 Phone: () - 05/23 [facility] other lab See galley worker d 08/11 [facility] other lab See galley worker d 11/10 [facility] other lab See galley worker d 11/14 [facility] other lab See galley worker d 11/16 [facility] other lab See galley worker d 02/17 [facility] other lab See galley worker d 03/11 [facility] other lab See galley worker d 03/24 [facility] other lab See galley worker d 04/07 [facility] other lab See galley worker d 05/18 CA 125 panel CA 125 UNITS/ ML 0.0 34.0 9.50 Test performed at [facility] on a [employer] Immuno[employer] ay Analyzer that uses an immunoenz ymometric sandwich assay for analysis. Patient testing should not be performed using multiple methodolo gies due to analytica l variation seen between test methodolo gies. FINAL Harper Ashwinok [facility], [address] [place] [address] [phone] 0 Phone: () - 11/06 [facility] other lab See galley worker 11/14 CA 125 panel CA 125 UNITS/ ML 0.0 34.0 12.60 Test performed at [facility] on a [employer] Immunoass ay Analyzer that uses an immunoenz ymometric sandwich assay for analysis. Patient testing should not be performed using multiple methodolo gies due to analytica l variation seen between test methodolo gies. FINAL Harper [place] [facility], [address] [place] [address] [phone] Phone: () - 02/20 [facility] other lab See galley worker d 05/23 CA 125 panel CA 125 UNITS/ ML 0.0 34.0 10.30 Test performed at [facility] on a [employer] Immunoass ay Analyzer that uses an immunoenz ymometric sandwich assay for analysis. Patient testing should not be performed using multiple methodolo gies due to analytica l variation seen between test methodolo gies. FINAL Pippa worthington [employer] [facility], [address] [facility] [phone] Phone: () - 09/04 Misc other lab See galley worker d 09/07 CA 125 panel CA 125 UNITS/ ML 0.0 34.0 9.80 Test performed at [facility] on a [employer] 2000 Immunoass ay Analyzer that uses an immunoenz ymometric sandwich assay for analysis. Patient testing should not be performed using multiple methodolo gies due to analytica l variation seen between test methodolo gies. FINAL Theresa worthington [facility] a Oncology - [place], [address] [facility] [phone] Phone: () - 03/17 CA 125 panel CA 125 U/ML 0.0 35.0 12.40 Test performed at [facility] on a [employer] 7600 Immunoass ay Analyzer that uses an immunomet negro immunoass ay technique . Patient testing should not be performed using multiple methodolo gies due to analytica l variation seen between test methodolo gies. FINAL Theresa Alvares [facility] a [facility] - [place], [address] [facility] [phone] 09/15 CA 125 panel CA 125 U/ML 0.0 35.0 8.60 Test performed at [facility] on a [employer] 7600 Immunoass ay Analyzer that uses an immunomet negro immunoass ay technique . Patient testing should not be performed using multiple methodolo gies due to analytica l variation seen between test methodolo gies. FINAL Pippa Radhatammy elin [facility] , [address] [phone] 0 03/17 CA 125 panel CA 125 U/ML 0.0 35.0 8.90 Test performed at [facility] on a [employer] 7600 Immunoass ay Analyzer that uses an immunomet negro immunoass ay technique . Patient testing should not be performed using multiple methodolo gies due to analytica l variation seen between test methodolo gies. 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 [facility] [place]-[id number] invest IV intrave nous 480.0 mg [...] hernia Active Vital Signs Date Type Value 01/19/2020 Body Temperature 98.60 01/19/2020 Heart Beat 86.00 01/19/2020 Oxygen Saturation 96.00 01/19/2020 Intravascular Systolic 140 01/19/2020 Intravascular Diastolic 82 01/19/2020 BSA 2.05 01/19/2020 Pain Scale 0.00 01/19/2020 Weight 221.00 01/19/2020 Height 64.50 01/19/2020 BMI 37.35 01/19/2020 Respiratory Rate 16.00 02/16/2020 Intravascular Systolic 144 02/16/2020 Intravascular Diastolic 80 02/16/2020 Oxygen Saturation 93.00 02/16/2020 Heart Beat 79.00 02/16/2020 Body Temperature 98.90 02/16/2020 BSA 2.07 02/16/2020 BMI 38.02 02/16/2020 Weight 225.00 02/16/2020 Pain Scale 0.00 02/16/2020 Height 64.50 02/16/2020 Respiratory Rate 14.00 03/15/2020 BMI 38.02 03/15/2020 Height 64.50 03/15/2020 Weight 225.00 03/15/2020 Pain Scale 0.00 03/15/2020 Intravascular Systolic 188 03/15/2020 Intravascular Diastolic 100 03/15/2020 Oxygen Saturation 94.00 03/15/2020 Respiratory Rate 18.00 03/15/2020 Heart Beat 68.00 03/15/2020 Body Temperature 95.80 03/15/2020 Intravascular Systolic 162 03/15/2020 Intravascular Diastolic 90 03/15/2020 BSA 2.07 04/12/2020 BMI 38.43 04/12/2020 Height 64.50 04/12/2020 Weight 227.40 04/12/2020 Intravascular Systolic 128 04/12/2020 Intravascular Diastolic 74 04/12/2020 BSA 2.08 04/12/2020 Respiratory Rate 16.00 04/12/2020 Heart Beat 91.00 04/12/2020 Body Temperature 98.00 04/12/2020 Pain Scale 0.00 04/12/2020 Oxygen Saturation 98.00 05/10/2020 Body Temperature 97.60 05/10/2020 Heart Beat 67.00 05/10/2020 Oxygen Saturation 93.00 05/10/2020 Intravascular Systolic 152 05/10/2020 Intravascular Diastolic 84 05/10/2020 Respiratory Rate 16.00 05/10/2020 Pain Scale 0.00 05/10/2020 Weight 224.00 05/10/2020 BSA 2.06 05/10/2020 BMI 37.86 05/10/2020 Height 64.50 06/07/2020 BMI 36.13 06/07/2020 Height 64.50 06/07/2020 Weight 213.80 06/07/2020 Pain Scale 0.00 06/07/2020 BSA 2.02 06/07/2020 Oxygen Saturation 91.00 06/07/2020 Respiratory Rate 18.00 06/07/2020 Heart Beat 75.00 06/07/2020 Body Temperature 98.20 06/07/2020 Intravascular Systolic 134 06/07/2020 Intravascular Diastolic 82 07/05/2020 Body Temperature 98.00 07/05/2020 Heart Beat 71.00 07/05/2020 Respiratory Rate 18.00 07/05/2020 Oxygen Saturation 91.00 07/05/2020 Intravascular Systolic 128 07/05/2020 Intravascular Diastolic 70 07/05/2020 Pain Scale 0.00 07/05/2020 Weight 224.00 07/05/2020 Height 64.50 07/05/2020 BMI 37.86 07/05/2020 BSA 2.06 08/02/2020 BMI 37.52 08/02/2020 Weight 222.00 08/02/2020 Pain Scale 0.00 08/02/2020 Respiratory Rate 14.00 08/02/2020 BSA 2.06 08/02/2020 Intravascular Systolic 122 08/02/2020 Intravascular Diastolic 64 08/02/2020 Oxygen Saturation 90.00 08/02/2020 Heart Beat 76.00 08/02/2020 Body Temperature 96.20 08/02/2020 Height 64.50 08/30/2020 BSA 2.06 08/30/2020 BMI 37.69 08/30/2020 Height 64.50 08/30/2020 Weight 223.00 08/30/2020 Pain Scale 0.00 08/30/2020 Respiratory Rate 14.00 08/30/2020 Intravascular Systolic 140 08/30/2020 Intravascular Diastolic 80 08/30/2020 Oxygen Saturation 90.00 08/30/2020 Body Temperature 96.80 08/30/2020 Heart Beat 80.00 09/27/2020 Body Temperature 96.90 09/27/2020 Heart Beat [...]
--- NOTE | 2025-07-19 23:36 | CRLHL7_ITS ---
For Patients: As a result of the Century Cures Act, medical imaging exams and procedure reports are released immediately into your electronic medical record. You may view this report before your referring provider. If you have questions, please contact your health care provider. INDICATION: Dyspnea on exertion, shortness of breath. TECHNIQUE: Chest 1 view. COMPARISON: Chest radiograph 10/25/2022. FINDINGS: Cardiovascular: Stable cardiomegaly. The central pulmonary arteries are enlarged which can be seen with pulmonary hypertension. No significant pulmonary vascular congestion. Lungs and pleural spaces: The lungs are clear. No sign of pleural effusion. No pneumothorax identified. Bones and soft tissues: Mild elevation of the right hemidiaphragm. Old right posterior rib fracture. IMPRESSION: Cardiomegaly with enlarged central pulmonary arteries. No other acute findings. Dictated by Re Lake MD @ 07/20/2025 12:07:25 AM (Electronically Signed)
[2025-07-19 23:40] VITALS: PULSE 93; RESP 26; O2SAT 97
--- NOTE | 2025-07-19 23:42 | ED_ITS ---
HPI - General Adult General Date Seen: 07/19/25 Chief complaint: Shortness of Breath/Dyspnea Stated complaint: shortness of breath Time Seen by Provider: 07/19/25 23:36 History of Present Illness HPI narrative: 74-year-old female brought to the ER tonight from home by EMS for shortness of breath. History from the patient and from paramedics is that she has been healthy and well lately. No recent illness, chest pain, cough. Or other symptoms. Tonight about an hour prior to arrival while she was watching TV noon popcorn she developed acute onset of shortness of breath. When paramedics arrived they report that she was saturating in the 70s. She apparently normally saturates around 90 on air. They started her on BiPAP and gave her a DuoNeb with some improvement. Sats came up to low 90s on BiPAP. Patient denies any chest pain. No recent cough. No fever. No swelling in her legs. No abdominal pain. She just felt very short of breath. Her primary care provider is Dr. Gross. Last visit was in April of this year for a checkup. According to those records she has a history of COPD. She is a current some day smoker. Also has a history of CHF. Also history of breast cancer, hyperlipidemia, sleep apnea, elevated BMI, hypertension, left ventricular hypertrophy, lung nodules,. Med list included aspirin, atorvastatin carvedilol 12.5 b.i.d., Farxiga 10 mg in the morning, Trelegy Ellipta, furosemide 20 mg in the morning, gabapentin 600 b.i.d., losartan, oxygen p.r.n. she says she uses CPAP and oxygen night when she sleeps but she really needs to use oxygen during the day. She has never had a spell like tonight where she became so abruptly short of breath. No antecedent symptoms. No recent cough. No leg swelling. No recent chest pain. No palpitations. No fever. She was feeling well earlier today and even went to [facility]. Related Data Home Medications ?Medication ?Instructions ?Recorded ?Confirmed aspirin 81 mg capsule 81 mg PO DAILY 03/09/2204/11 oxygen-air delivery systems 01/30/24 05/05/25 dapagliflozin propanediol 10 mg 10 mg PO QAM 04/30/24 05/05/25 tablet (Farxiga) carvedilol 12.5 mg tablet 12.5 mg PO BID 05/05/2504/11 furosemide 20 mg tablet 20 mg PO QAM 05/05/25 furosemide 40 mg tablet 20 mg PO DAILY 05/05/2504/11 Previous Rx's ?Medication ?Instructions ?Recorded alendronate 70 mg tablet 70 mg PO QWEEK #13 tabs 04/11 03/04 atorvastatin 40 mg tablet 40 mg PO QHS #90 tabs fluticasone fur. 200 mcg-umeclid 1 inh inhalation QDAY #180 ea 05/05/25 62.5 mcg-vilant 25 mcg inhalat.powder (Trelegy Ellipta) gabapentin 300 mg capsule 600 mg (2 x 300 mg) PO BID # 360 05/05/25 caps losartan 25 mg tablet 25 mg PO DAILY #90 tabs 04/11 03/04 Allergies Allergy/AdvReac Type Severity Reaction Status Date / Time duloxetine Allergy Mild itchy Verified 05/05/25 13:47 [employer] [facility] Medical History Hyperlipidemia (05/05/11) ?E78.5 - Hyperlipidemia, unspecified (ICD-10) Obesity (BMI 35.0-39.9 without comorbidity) ?E66.9 - Obesity, unspecified (ICD-10) BRCA2 positive ?Z15.01 - Genetic susceptibility to malignant neoplasm of breast (ICD-10) ?Z15.09 - Genetic susceptibility to other malignant neoplasm (ICD-10) Toenail fungus ?B35.1 - Tinea unguium (ICD-10) Health care directive on file ?Z78.9 - Other specified health status (ICD-10) Peripheral neuropathy ?G62.9 - Polyneuropathy, unspecified (ICD-10) Chronic hyponatremia ?E87.1 - Hypo-osmolality and hyponatremia (ICD-10) MONIKA on CPAP ?G47.33 - Obstructive sleep apnea (adult) (pediatric) (ICD-10) ?Z99.89 - Dependence on other enabling machines and devices (ICD-10) CO2 retention ?E87.2 - Acidosis (ICD-10) Polyp of colon (05/05/11) ?K63.5 - Polyp of colon (ICD-10) Pneumothorax ?J93.9 - Pneumothorax, unspecified (ICD-10) Obesity (05/05/11) ?E66.9 - Obesity, unspecified (ICD-10) Malignant neoplasm of ovary (2018) ?C56.9 - Malignant neoplasm of unspecified ovary (ICD-10) Ischemic colitis ?K55.9 - Vascular disorder of intestine, unspecified (ICD-10) Hypertension (05/05/11) ?I10 - Essential (primary) hypertension (ICD-10) Fracture of rib of right side ?S22.31XA - Fracture of one rib, right side, initial encounter for closed fracture (ICD-10) Contusion of back ?S20.229A - Contusion of unspecified back wall of thorax, initial encounter (ICD-10) Chemotherapy-induced neuropathy ?G62.0 - Drug-induced polyneuropathy (ICD-10) ?T45.1X5A - Adverse effect of antineoplastic and immunosuppressive drugs, initial encounter (ICD-10) Chemotherapy-induced nausea and vomiting ?R11.2 - Nausea with vomiting, unspecified (ICD-10) ?T45.1X5A - Adverse effect of antineoplastic and immunosuppressive drugs, initial encounter (ICD-10) Surgical History Status post dissection of cervical lymph nodes ?Z98.890 - Other specified postprocedural states (ICD-10) History of hysterectomy ?Z90.710 - Acquired absence of both cervix and uterus (ICD-10) History of colonoscopy ?Z98.890 - Other specified postprocedural states (ICD-10) Family History Father Coronary artery disease High blood pressure Mother Coronary artery disease Breast cancer Social History (Updated 05/06/25 @ 08:07 by Puja Arias~[facility], [facility]) Narrative: , lives with in [place]. Two adult children. 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 Alcohol use 4-5 drinks per week, no history of ETOH withdrawal. No recreational drug use. 1/2ppd smoker What is your current living situation?: I presently have a place to live Problems where you live: no known problems Problems where you live details: N/A In the past 12 months, utilities in danger of being shut off: no In past 12 months, lack of transportation kept you from medical appts, meetings, work, or getting things needed for daily living: no In the past 12 mos, have been you worried that your food would run out before you had money to buy more?: never true In the past 12 mos, the food you bought just didn't last and you didn't have money to buy more?: never true Highest level of school completed/degree received: Associate degree: occupational, technical, vocational program Smoking Status: Current every day smoker What tobacco products do you use: cigarettes Smoking packs per day: 0.5 Smoking cigarettes per day: 10.0 Years smoked: 50 Smoking pack-years: 25.00 Do you use any of these nicotine containing products: None Second hand tobacco smoke exposure: Yes How often do you have a drink containing alcohol: 2-4 times a month Alcohol type: wine How many standard drinks containing alcohol do you have on a typical day: 1 or 2 How often do you have six or more drinks on one occasion: Never AUDIT-C Alcohol total score: 2 Non-prescribed substance use: denies use Caffeine: Yes How often does anyone, including family, friends and others, physically hurt you : never How often does anyone, including family, friends and others, insult or talk down to you: rarely How often does anyone, including family, friends and others, threaten you with h arm: never How often does anyone, including family, friends and others, scream or curse at you: never Are you using contraception or practicing any form of control: No service: No Health Related Social Needs: Other personal risk factors, not elsewhere classified (Z91.89) Exam Narrative: Exam Narrative: Primary Survey: A- patent. Speaking clearly, but short sentences. Phonation normal. No stridor. B- labored breathing. Arrives on BiPAP but were able to get her off. Sats are in the mid 80s on room air after coming off BiPAP. They had been in the 70s at home prior to initiation of BiPAP. Lung sounds are coarse bilaterally. Equal. Set 85 on room air C- no active bleeding. Blood pressure stable. Symmetric pulses and cap refill in 4 extremities. D- alert and oriented x3. GCS 15. No focal deficits. Constitutional: Appears well-developed and well-nourished. Alert. Conversant. Non toxic. HENT: Head: Atraumatic. Nose: Nose normal. Mouth/Throat: Oral mucosa is clear and moist. no trismus. Pharynx normal. Eyes: Conjunctivae normal. EOM normal. Pupils equal, round, and reactive to light. No scleral icterus. Neck: Normal range of motion. Neck supple. No tracheal deviation present. Cardiovascular: Normal rate, regular rhythm. No gallop. No friction rub. No murmur heard. Symmetric radial and PT artery pulses . No JVD Pulmonary/Chest: After DuoNeb, breathing is improved. Respiratory rate 24- Effort normal. No stridor. No tripoding. No respiratory distress. Still scares bilateral wheezes. I do not hear any rales or rhonchi . No tenderness. Abdominal: Soft. Bowel sounds normal. No distension. No mass. No tenderness. No rebound. No guarding. Musculoskeletal: RUE: Normal range of motion. No tenderness. No deformity LUE: Normal range of motion. No tenderness. No deformity RLE: Normal range of motion. No edema. No tenderness. No deformity LLE: Normal range of motion. No edema. No tenderness. No deformit Neurological: Alert and oriented to person, place, and time. Normal strength. CN II-VII intact. No sensory deficit. GCS eye subscore is 4. GCS verbal subscore is 5. GCS motor subscore is 6. Normal coordination Skin: Skin is warm and dry. No rash noted. No pallor. Normal capillary refill. Psychiatric: Normal mood. Normal affect. Const: Vital Signs, click to edit/add: Vital Signs - 24 hr 07/19/25 23:40 07/19/25 23:43 07/19/25 23:45 Temperature 97.1 F L Pulse Rate 93 95 Pulse Rate [Right Pulse Oximeter] 96 Respiratory Rate 26 H 28 H 21 Blood Pressure Blood Pressure [Le ft Upper Arm] 181/107 H Pulse Oximetry 97 85 L 91 Oxygen Delivery Me thod Room Air Oxygen Flow Rate 07/19/25 23:48 07/20/25 00:00 07/20/25 00:03 Temperature Pulse Rate 96 91 92 Pulse Rate [Right Pulse Oximeter] Respiratory Rate 15 19 34 H Blood Pressure 157/96 H 142/94 H Blood Pressure [Le ft Upper Arm] Pulse Oximetry 90 93 92 Oxygen Delivery Me thod Oxygen Flow Rate 07/20/25 00:03 07/20/25 00:03 07/20/25 00:15 Temperature Pulse Rate 92 92 89 Pulse Rate [Right Pulse Oximeter] Respiratory Rate 34 H 34 H Blood Pressure 142/94 H 142/94 H Blood Pressure [Le ft Upper Arm] Pulse Oximetry 92 92 93 Oxygen Delivery Me thod Oxygen Flow Rate 07/20/25 00:20 07/20/25 00:28 07/20/25 00:30 Temperature Pulse Rate 87 88 Pulse Rate [Right Pulse Oximeter] 87 Respiratory Rate 25 H 20 24 Blood Pressure 155/82 H Blood Pressure [Le ft Upper Arm] 155/83 H Pulse Oximetry 92 90 93 Oxygen Delivery Me thod Nasal Cannula Oxygen Flow Rate 1 07/20/25 00:32 07/20/25 00:45 07/20/25 00:47 Temperature Pulse Rate 88 85 87 Pulse Rate [Right Pulse Oximeter] Respiratory Rate 25 H 22 24 Blood Pressure 155/93 H 147/90 H Blood Pressure [Le ft Upper Arm] Pulse Oximetry 92 93 92 Oxygen Delivery Me thod Oxygen Flow Rate 07/20/25 01:00 07/20/25 01:02 Temperature Pulse Rate 84 81 Pulse Rate [Right Pulse Oximeter] Respiratory Rate 18 Blood Pressure 132/85 Blood Pressure [Le ft Upper Arm] Pulse Oximetry 94 92 Oxygen Delivery Me thod Oxygen Flow Rate Course Course ED Course: Report from EMS the patient was acutely dyspneic, in respiratory distress, tripoding, and saturating the 70s on room air when they arrive. They initiated BiPAP and DuoNeb and sats of now come up to 85% and work of breathing is improved but she still tachypneic with a respiratory rate around 30 he has. As she arrives sats were 85% room air respiratory rate her on 30s. Lungs were still course. DuoNeb was administered. With this oxygen level came up and she was about 88 or 89% on room air so we placed her on 1 L to keep sats above 90. ( On 2 L sats came up to 95% and above. ). Work of breathing was markedly improved she was able to converse in full sentences. Respiratory rate still mildly elevated 24. Stat portable chest x-ray showed no definite infiltrate, pneumothorax, by my read. Given response to nebs suspect COPD. We will start the patient on IV steroids. Will obtain EKG, labs, chest x-ray to look for other causes of dyspnea. Reevaluation(s) Reevaluation #1: Repeat chest x-ray clear. Initial VBG shows pH of 733. PCO2 68. Repeat BG PG shows improving PH. Slowly declining pCO2 Vital Signs Vital signs: Initial Vital Signs Pulse Rate 93 07/19/25 23:40 Respiratory Rate 26 H 07/19/25 23:40 Pulse Oximetry 97 07/19/25 23:40 Vital Signs Pulse Rate 93 07/19/25 23:40 Respiratory Rate 26 H 07/19/25 23:40 Pulse Oximetry 97 07/19/25 23:40 Temperature 97.1 F L 07/19/25 23:43 Pulse Rate 81 07/20/25 01:02 Respiratory Rate 18 07/20/25 01:02 Blood Pressure 132/85 07/20/25 01:02 Pulse Oximetry 92 07/20/25 01:02 Oxygen Delivery Method Nasal Cannula 07/20/25 00:28 Oxygen Flow Rate 1 07/20/25 00:28 Medications Administered Medications: Generic Name Dose Route Start Last Admin Trade Name Freq PRN Reason Stop Dose Admin Albuterol 2.5 mg 07/20/25 00:18 07/20/25 00:28 Albuterol Sulfate 2.5 Mg/3 Ml Vial.Neb NEB 07/20/25 00:19 2.5 mg ONCE ONE Administration Albuterol/Ipratropium 1 neb 07/19/25 23:36 07/19/25 23:57 Iprat-Albut 0.5-2.5 Mg/3 Ml Neb IH 07/19/25 23:37 1 neb ONCE ONE Administration Methylprednisolone Sodium Succinate 125 mg 07/19/25 23:36 07/19/25 23:57 Methylprednisolone Sod Succ 62.5 Mg/Ml (125) IVP 07/19/25 23:37 125 mg ONCE ONE Administration Medical Decision Making [facility] Narrative Medical decision making narrative: Pleasant 74-year-old female brought to the ER today with respiratory distress, hypoxia, and acute onset of shortness of breath that began this evening. Differential is broad. Initial clinical presentation is most suggestive for COPD given the patient's wheezing and response nebs and BiPAP. Fortunately the patient was able to wean off BiPAP upon arriving here to the ER. She received additional DuoNebs and albuterol with subsequent clinical improvement. Sats were in the 70s per EMS at home but have now come up to the high 80s. She is on 1 L nasal cannula to maintain sats in the low 90s. Overall work of breathing is improved and respiratory rate has come down also treated with IV cyst corticosteroids Initial blood gas (obtained after she arrived and weaned off BiPAP and had received her 1st neb) did show a respiratory acidosis with a pH of 7.3 and a pCO2 of 67. Repeat blood gas obtained after treatment with 2nd neb shows improving pH up to 7.35 and dropping pCO2 down to 58. This would be near the patient's baseline, I suspect. Overall she is continues to do better than arrival. She is not showing signs of respiratory distress that she is going to require re-initiation of BiPAP. However she is persistently on nasal cannula, which is not normal for her at home. Additionally given the severity of her initial exacerbation, I do think admission for observation and further supportive care is warranted. Chest x-ray is obtained look for signs of pneumonia or CHF and is clear by my read and by Radiology. COVID/influenza/RSV PCR is negative Consider possible CHF but the clear lungs, absence of peripheral edema, and relatively low and terminal proBNP suggest acute CHF exacerbation is not because. Consider possible PEs as cause of acute onset of dyspnea. Overall would be low risk but not 0 risk. Screening age adjusted D-dimer is normal. Consider an atypical presentation of ACS. Screening EKG is nonischemic. Troponin is negative. Discussed with overnight tele hospitalist who agrees to admit to the hospitalist service Lab Data Labs: Lab Results 07/20/25 07/20/25 Range/Units 00:00 01:00 WBC 9.15 (4.50-11.00) K/uL RBC 4.47 (4.00-5.20) m/uL Hgb 14.1 (12.0-16.0) gm/dL Hct 44.4 (33.0-51.0) % MCV 99 (80-100) fL MCH 32 (26-34) pg MCHC 32 (32-36) gm/dL RDW Coeff of Ezra 13.9 (11.5-15.5) % Plt Count 205 (140-440) K/uL Neut % (Auto) 61.1 (42.0-72.0) % Lymph % (Auto) 23.8 (20-44) % [place] % (Auto) 7.8 (0.0-11.0) % Eos % (Auto) 6.3 (0.0-7.0) % Baso % (Auto) 0.3 (0.0-3.0) % Neut # (Auto) 5.59 (1.7-7.0) K/uL Lymph # (Auto) 2.18 (0.90-2.90) K/uL [place] # (Auto) 0.70 (0.00-0.90) K/UL Eos # (Auto) 0.58 H (0.00-0.50) K/uL Baso # (Auto) 0.03 (0.00-0.30) K/uL Abs Immat Gran (auto) 0.06 (0.00-0.30) K/uL Imm/Tot Granulo (auto) 0.7 % INR 0.88 L (0.91-1.10) D-Dimer Quant (PE/DVT) 0.60 H (0.00-0.50) ug/ml VBG pH 7.303 L 7.351 (7.32-7.43) VBG pCO2 67 H* 58 H (40-50) mmHG VBG pO2 32.8 34.2 (25-47) mmHG VBG HCO3 33 H 32 H (21-28) mmol/L Lactate 1.4 (0.5-1.9) mmol/L Troponin I < 0.01 (0.01-0.04) ng/mL NT-Pro-B Natriuret Pep 412 H (See Note) pg/mL SARS-CoV-2 (PCR) Negative SARS-CoV-2 (Negative) Influenza Type A (PCR) Negative PCR FLU A (Negative) Influenza Type B (PCR) Negative PCR FLU B (Negative) RSV (PCR) Negative PCR RSV (Negative) Imaging Data Chest x-ray: Attestation: I have reviewed the pertinent imaging results. My impression: No obvious CHF, pneumonia, pneumothorax. Radiologist's impression: IMPRESSION: Cardiomegaly with enlarged central pulmonary arteries. No other acute findings. ECG Data Attestation: I personally reviewed and interpreted this ECG as follows: Interpretation: Normal sinus rhythm Rate 91 SD interval 162 Normal QRS axis. Low voltage QRS Nonspecific T-wave flattening in leads V1, V2, lead 3, lead AVF. No ST segment elevation or depression QT 356, QTC 437 Discharge Plan Discharge Clinical Impression: Acute exacerbation of chronic obstructive pulmonary disease, Hypoxia Patient Disposition: Admitted As Observation Procedures ABG Interpretation ABG Results: 07/20/25 07/20/25 00:00 01:00 VBG pH 7.303 L 7.351 VBG pCO2 67 H* 58 H VBG pO2 32.8 34.2 VBG HCO3 33 H 32 H
[2025-07-19 23:43] VITALS: BP 181/107; PULSE 96; RESP 28; TEMP 36.2; O2SAT 85
[2025-07-19 23:45] VITALS: PULSE 95; RESP 21; O2SAT 91
[2025-07-19 23:48] VITALS: BP 157/96; PULSE 96; RESP 15; O2SAT 90
[2025-07-19] MEDS: IPRAT-ALBUT 0.5-2.5 MG/3 ML NEB 1 NEB IH (23:57)
[2025-07-19] MEDS: METHYLPREDNISOLONE SOD SUCC 62.5 MG/ML (125) 125 MG IVP (23:57)
[2025-07-20] VITALS (20 sets, daily range): BP systolic 132–164; BP diastolic 77–94; PULSE 75–92; RESP 18–34; TEMP 36.3–37.2; O2SAT 90–94
[2025-07-20 00:07] LABS: HCO3 VBG 33 mmol/L (21-28); Lactate* 1.4 mmol/L (0.5-1.9); PO2 VBG 32.8 mmHG (25-47); pH VBG 7.303 (7.32-7.43)
--- OUTSIDE RECORDS SUMMARY | 2025-07-20 00:08 | XMS_ITS ---
Author Name Interface, [id number] lity Address [address] [place] [address] [facility] Oncology Address [address] [place] [address] Allergies and Adverse Reactions Medication/Group Name Reaction [...] K/uL 3.0 8.9 8.[address] [facility], [address] [place] [id number] [phone] Phone: () - 05/23 CBC w/ auto diff HGB g/dL 11.3 15.2 15.7 High FINAL [facility] [place] [facility], [address] [place] [address] [address] [place] [id number] 0 Phone: () - 05/23 CBC w/ auto diff PLT K/uL 113.0 364.0 220 FINAL Harper Peters [facility] - [place], [address] [place] [address] [address] [place] [id number] 0 Phone: () - 05/23 CBC w/ auto diff Avtar # (ANC) K/uL 1.6 6.6 5.5 FINAL Harper Mcginnisot a [facility] - [place], [address] [place] [address] [address] [place] [id number] 0 Phone: () - 05/23 CBC w/ auto diff Avtar % % 43.0 74.0 62.5 FINAL Harper Mcginnisot a [facility] - [place], [address] [place] [address] [address] [place] [id number] 0 Phone: () - 05/23 CBC w/ auto diff IG % % 0.0 0.5 0.5 FINAL aHrper Mcginnisot a [facility]cology - [place], [address] [place] [address] [address] [place] [id number] 0 Phone: () - 05/23 CBC w/ auto diff IG # K/uL 0.0 0.03 0.04 High FINAL Harper Mcginnisot a [facility] - [place], [address] [place] [address] [address] [place] [id number] 0 Phone: () - 05/23 CBC w/ auto diff LY % % 14.0 41.0 22.5 FINAL Harper Mcginnisot a [facility] - [place], [address] [place] [address] [address] [place] [id number] 0 Phone: () - 05/23 CBC w/ auto diff MO % % 6.0 15.0 8.0 FINAL Harper Mcginnisot a [facility] - [place], [address] [place] [address] [address] [place] [id number] 0 Phone: () - 05/23 CBC w/ auto diff EO % % 0.0 7.0 5.9 FINAL Harper Mcginnisot a [facility] - [place], [address] [place] [address] [address] [place] [id number] 0 Phone: () - 05/23 CBC w/ auto diff BA % % 0.0 2.0 0.6 FINAL Harper Mcginnisot a [facility] - [place], [address] [place] [address] [address] [place] [id number] 0 Phone: () - 05/23 CBC w/ auto diff LY # K/uL 0.4 3.6 2.0 FINAL Harper noel [facility] - [place], [address] [place] [address] [address] [place] [id number] 0 Phone: () - 05/23 CBC w/ auto diff MO # K/uL 0.2 1.3 0.7 FINAL Harper noel [facility] - [place], [address] [place] [address] [address] [place] [id number] 0 Phone: () - 05/23 CBC w/ auto diff EO # K/uL 0.0 0.6 0.5 FINAL Harper noel [facility] - [place], [address] [place] [address] 200 [place] [id number] 0 Phone: () - 05/23 CBC w/ auto diff BA # K/uL 0.0 0.2 0.1 FINAL Harper noel [facility] - [place], [address] [place] [address] [address] [place] [id number] 0 Phone: () - 05/23 CBC w/ auto diff NRBC % #/100W BC 0.0 0.2 0.0 FINAL Harper noel [facility] - [place], [address] [place] [address] [address] [place] [id number] 0 Phone: () - 05/23 CBC w/ auto diff RBC M/uL 3.9 5.1 4.85 FINAL Harper noel [facility] - [place], [address] [place] [address] [address] [place] [id number] 0 Phone: () - 05/23 CBC w/ auto diff HCT % 35.0 48.0 47.1 FINAL Harper noel [facility] - [place], [address] [place] [address] [address] [place] [id number] 0 Phone: () - 05/23 CBC w/ auto diff MCV fL 80.0 104.0 97.1 FINAL Harper noel [facility] - [place], [address] [place] [id number] 0 Phone: () - 05/23 CBC w/ auto diff MCH pg 26.0 35.0 32.4 FINAL Harper noel [facility] - [place] [facility], [address] [place] [address] 200 [place] [id number] 0 Phone: () - 05/23 CBC w/ auto diff MCHC g/dL 30.0 35.0 33.3 FINAL Harper noel [facility] [place] [facility], [address] [place] [address] 200 [place] [id number] 0 Phone: () - 05/23 CBC w/ auto diff MPV fL 9.5 13.4 9.1 Low FINAL Harper noel [facility], [address] [place] [address] 200 [place] [id number] 0 Phone: () - 05/23 CBC w/ auto diff RDW % 11.4 16.1 13.00 FINAL Harper noel Oncology [facility], [address] [place] [address] 200 [place] [id number] 0 Phone: () - 05/23 CMP Album in g/dL 3.2 5.2 4.6 FINAL Harper Mcginnis bert [facility], [address] [id number] 0 Phone: () - 05/23 CMP Alkal ine phosp hatas e U/L 46.0 116.0 58 [facility]AL [facility], [address] [facility] [address] [place] [id number] 0 Phone: () - 05/23 CMP ALT/S GPT U/L 7.0 40.0 11 FINAL [facility] [address] [id number] [phone] Phone: () - 05/23 CMP AST/S GOT U/L 13.0 40.0 23 [facility]AL [facility], [address] [facility] [place] [address] [id number] 0 Phone: () - 05/23 CMP BUN mg/dL 9.0 23.0 15 FINAL Harper noel [facility], [address] [facility] [id number] Phone: () - 05/23 CMP Calci um mg/dL 8.7 10.4 10.1 FINAL Harper neol [facility], [address] [facility] [id number] 0 Phone: () - 05/23 CMP Chlor sathish mmol/L 96.0 114.0 88 Low FINAL [facility], [address] [facility] [place] [address] [facility] [id number] Phone: () - 05/23 CMP CO2 [...] the 96 hour stability window. FINAL [facility], [address] [facility] [place] [address] [place] [id number] [phone] Phone: () - 05/23 CMP Creat inine mg/dL 0.5 1.2 0.97 FINAL Harper Wheeler [facility], [address] [facility] [place] [address] [place] [id number] [phone] Phone: () - 05/23 CMP GFR estim ate ml/min /1.73m ^2 58.5 Low GFR is calculate d using the CKD-EPI equation. FINAL Harper Wheeler [facility], [address] [facility] [place] [address] [facility] [id number] 0 Phone: () - 05/23 CMP Gluco se mg/dL 73.0 126.0 72 Low FINAL [facility], [address] [facility] [id number] 0 Phone: () - 05/23 CMP Potas sium mmol/L 3.5 5.1 4.8 FINAL Harper Wheeler [facility], [address] [facility] [place] [address] [facility] [id number] 0 Phone: () - 05/23 CMP Sodiu m mmol/L 136.0 145.0 129 Low FINAL Harper noel [facility], [address] [facility] [place] [facility] 100 [facility] [id number] 0 Phone: () - 05/23 CMP Bilir ubin, total mg/dL 0.3 1.2 0.3 FINAL [facility], [address] [facility] [place] [facility] 100 [facility] [id number] 0 Phone: () - 05/23 CMP Total prote in g/dL 5.7 8.2 7.3 FINAL [facility], [address] [facility] [address] [facility] [id number] 0 Phone: () - 05/23 CA 125 panel CA 125 UNITS/ ML 0.0 34.0 7.00 Test performed at [facility] on a [employer] 2000 Immunoass ay Analyzer that uses an immunoenz ymometric sandwich assay for analysis. Patient testing should not be performed using multiple methodolo gies due to analytica l variation seen between test methodolo gies. FINAL Harper Mcginnis bert [facility], [address] [facility] [address] [facility] [id number] 0 Phone: () - 05/23 [facility] other lab See aircraft layout worker d 08/11 [facility] other lab See aircraft layout worker d 11/10 [facility] other lab See aircraft layout worker d 11/14 [facility] other lab See aircraft layout worker d 11/16 [facility] other lab See aircraft layout worker d 02/17 [facility] other lab See aircraft layout worker d 03/11 [facility] other lab See aircraft layout worker d 03/24 [facility] other lab See aircraft layout worker d 04/07 [facility] other lab See aircraft layout worker d 05/18 CA 125 panel CA 125 UNITS/ ML 0.0 34.0 9.50 Test performed at [facility] on a [employer] 2000 Immunoass ay Analyzer that uses an immunoenz ymometric sandwich assay for analysis. Patient testing should not be performed using multiple methodolo gies due to analytica l variation seen between test methodolo gies. FINAL Harper Peters a Oncology - [place], [address] [facility] [place] [address] [facility] [id number] 0 Phone: () - 11/06 [facility] other lab See aircraft layout worker d 11/14 CA 125 panel CA 125 UNITS/ ML 0.0 34.0 12.60 Test performed at [facility] on a [employer] 2000 Immunoass ay Analyzer that uses an immunoenz ymometric sandwich assay for analysis. Patient testing should not be performed using multiple methodolo gies due to analytica l variation seen between test methodolo gies. FINAL Harper Peters a Oncology - [facility] [address] [facility] [place] [address] [facility] [id number] 0 Phone: () - 02/20 [facility] other lab See aircraft layout worker d 05/23 CA 125 panel CA 125 UNITS/ ML 0.0 34.0 10.30 Test performed at [facility] on a [employer] 2000 Immunoass ay Analyzer that uses an immunoenz ymometric sandwich assay for analysis. Patient testing should not be performed using multiple methodolo gies due to analytica l variation seen between test methodolo gies. FINAL Pippa worthington [facility] - [facility] [address] [facility] [place] [address] [facility] [id number] 0 Phone: () - 09/04 [facility] other lab See aircraft layout worker d 09/07 CA 125 panel CA 125 UNITS/ ML 0.0 34.0 9.80 Test performed at [facility] on a [employer] 2000 Immunoass ay Analyzer that uses an immunoenz ymometric sandwich assay for analysis. Patient testing should not be performed using multiple methodolo gies due to analytica l variation seen between test methodolo gies. FINAL Theresa worthington [facility] - [place], [address] [facility] [place] [address] [facility] [id number] 0 Phone: () - 03/17 CA 125 panel CA 125 U/ML 0.0 35.0 12.40 Test performed at [facility] on a [employer] Immuno[employer] ay Analyzer that uses an immunomet negro immunoass ay technique . Patient testing should not be performed using multiple methodolo gies due to analytica l variation seen between test methodolo gies. FINAL Theresa Bollinge r * [place] [facility] [place], [facility] [address] [id number] 0 09/15 CA 125 panel CA 125 U/ML 0.0 35.0 8.60 Test performed at [facility] on a [employer] 7600 Immunoass ay Analyzer that uses an immunomet negro immunoass ay technique . Patient testing should not be performed using multiple methodolo gies due to analytica l variation seen between test methodolo gies. FINAL Pippa Anne Marie worthington * [facility] , [facility] [address] [facility] [id number] 0 03/17 CA 125 panel CA 125 U/ML 0.0 35.0 8.90 Test performed at [facility] on a [employer] 7600 Immuno[employer] ay Analyzer that uses an immunomet negro immunoass ay technique . Patient testing should not be performed using multiple methodolo gies due to analytica l variation seen between test methodolo gies. 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 [facility] [id number] invest IV intrave nous 480.0 mg [...] Active Vital Signs Date Type Value 05/23/2021 Intravascular Systolic 122 05/23/2021 Intravascular Diastolic 68 05/23/2021 Body Temperature 98.00 05/23/2021 BSA 2.09 05/23/2021 BMI 38.87 05/23/2021 Height 64.50 05/23/2021 Weight 230.00 05/23/2021 Pain Scale 0.00 05/23/2021 Respiratory Rate 14.00 05/23/2021 Heart Beat 71.00 05/23/2021 Oxygen Saturation 84.00 08/11/2021 Body Temperature 98.20 08/11/2021 BMI 36.54 08/11/2021 Height 64.50 08/11/2021 Weight 216.20 08/11/2021 BSA 2.03 08/11/2021 Intravascular Systolic 130 08/11/2021 Intravascular Diastolic 74 08/11/2021 Oxygen Saturation 95.00 08/11/2021 Respiratory Rate 16.00 08/11/2021 Heart Beat 70.00 08/11/2021 Pain Scale 0.00 11/14/2021 Oxygen Saturation 92.00 11/14/2021 Respiratory Rate 16.00 11/14/2021 Heart Beat 66.00 11/14/2021 Body Temperature 98.50 11/14/2021 Intravascular Systolic 108 11/14/2021 Intravascular Diastolic 62 11/14/2021 BSA 2.05 11/14/2021 BMI 37.35 11/14/2021 Height 64.50 11/14/2021 Weight 221.00 11/14/2021 Pain Scale 0.00 05/18/2022 Body Temperature 98.50 05/18/2022 Heart Beat 68.00 05/18/2022 BSA 2.09 05/18/2022 BMI 38.94 05/18/2022 Height 64.50 05/18/2022 Weight 230.40 05/18/2022 Pain Scale 0.00 05/18/2022 Intravascular Systolic 120 05/18/2022 Intravascular Diastolic 58 05/18/2022 Oxygen Saturation 95.00 05/18/2022 Respiratory Rate 16.00 11/14/2022 Body Temperature 98.50 11/14/2022 Intravascular Systolic 130 11/14/2022 Intravascular Diastolic 70 11/14/2022 Pain Scale 0.00 11/14/2022 Weight 227.00 11/14/2022 BSA 2.08 11/14/2022 BMI 38.36 11/14/2022 Oxygen Saturation 90.00 11/14/2022 Respiratory Rate 16.00 11/14/2022 Heart Beat 68.00 11/14/2022 Height 64.50 05/23/2023 Body Temperature 97.80 05/23/2023 Heart Beat 62.00 05/23/2023 Respiratory Rate 16.00 05/23/2023 Oxygen Saturation 95.00 05/23/2023 Intravascular Systolic 125 05/23/2023 Intravascular Diastolic 82 05/23/2023 Pain Scale 0.00 05/23/2023 Weight 224.00 05/23/2023 Height 64.50 05/23/2023 BMI 37.86 05/23/2023 BSA 2.06 09/07/2023 BMI 38.11 09/07/2023 Height 64.50 09/07/2023 [...]
--- OUTSIDE RECORDS SUMMARY | 2025-07-20 00:08 | XMS_ITS ---
Author Name Interface, [id number] lity Address [address] [facility] [address] [address] [facility] Address [address] [facility] [address] [address] Allergies and Adverse Reactions Medication/Group Name Reaction [...] APPOINTMENT CT - 605 CT CAP @ [facility] - CHECK IN @10 AM 11/22/2020 [...] 4.5 FINAL Tamanna Peters a [facility] - [place], [address] [place] [address] [place] [address] [id number] Phone: () - 11/22 CMP Alkal ine phosp hatas e U/L 46.0 116.0 67 FINAL Tamanna Peters [address] [id number] Phone: () - 11/22 CMP ALT/S GPT U/L 7.0 40.0 13 FINAL Tamanna noel [address] [id number] 0 Phone: () - 11/22 CMP AST/S GOT U/L 13.0 40.0 20 FINAL Tamanna Mcginnis[address] [id number] 0 Phone: () - 11/22 CMP BUN mg/dL 9.0 23.0 20 FINAL Tamanna Mcginnis[address] [id number] 0 Phone: () - 11/22 CMP Calci um mg/dL 8.7 10.4 9.1 FINAL Tamannanithin Mcginnis[address] [id number] 0 Phone: () - 11/22 CMP Chlor sathish mmol/L 96.0 114.0 96 [facility] [address] [id number] 0 Phone: () - 11/22 CMP CO2 mmol/L 20.0 31.0 27 FINAL Tamannanithin Rolon [address] [id number] 0 Phone: () - 11/22 CMP Creat inine mg/dL 0.5 1.2 1.06 FINAL Tamannanithin Mcginnis[address] [id number] 0 Phone: () - 11/22 CMP GFR estim ate ml/min /1.73m ^2 52.8 Low GFR is calculate d using the CKD-EPI equation. FINAL Tamanna Mcginnis[address] [id number] 0 Phone: () - 11/22 CMP Gluco se mg/dL 73.0 126.0 94 FINAL Tamanna Mcginnis[address] [id number] 0 Phone: () - 11/22 CMP Potas sium mmol/L 3.5 5.1 5.0 FINAL Tamanna noel [address] [id number] 0 Phone: () - 11/22 CMP Sodiu m mmol/L 136.0 145.0 130 Low FINAL Tamanna noel [address] [id number] [phone] Phone: () - 11/22 CMP Bilir ubin, total mg/dL 0.3 1.2 0.5 FINAL Tamanna Peters [address] [id number] 0 Phone: () - 11/22 CMP Total prote in g/dL 5.7 8.2 6.7 FINAL Tamanna Peters [address] [id number] Phone: () - 11/22 CA 125 panel CA 125 UNITS/ ML 0.0 34.0 8.10 Test performed at [facility] on a [employer] Immunoass ay Analyzer that uses an immunoenz ymometric sandwich assay for analysis. Patient testing should not be performed using multiple methoddanelle soto due to analytica l variation seen between test methoddanelle soto. FINAL Tamanna noel [address] [id number] 0 Phone: () - 11/22 CBC w/ auto diff LY # K/uL 0.4 3.6 1.8 FINAL Tamanna Mcginnis bert [facility], [address] [place] [address] 200 [facility] [id number] 0 Phone: () - 11/22 CBC w/ auto diff MO # K/uL 0.2 1.3 0.7 FINAL Tamanna Mcginnis bert [facility], [address] [place] [address] 200 [facility] [id number] 0 Phone: () - 11/22 CBC w/ auto diff EO # K/uL 0.0 0.6 0.4 FINAL Tamanna noel [facility] [place] [facility], [address] [place] [address] 200 [place] [id number] 0 Phone: () - 11/22 CBC w/ auto diff BA # K/uL 0.0 0.2 0.1 FINAL Tamanna noel [facility] [place] [facility], [address] [place] [address] 200 [place] [id number] 0 Phone: () - 11/22 CBC w/ auto diff NRBC % #/100W BC 0.0 0.2 0.0 FINAL Tamanna noel [facility] [place] [facility], [address] [place] [address] 200 [place] [id number] 0 Phone: () - 11/22 CBC w/ auto diff RBC M/uL 3.9 5.1 4.15 FINAL Tamanna noel [facility] [place] [facility], [address] [place] [address] 200 [place] [id number] 0 Phone: () - 11/22 CBC w/ auto diff HCT % 35.0 48.0 42.3 FINAL Tamanna noel [facility] - [place] [facility], [address] [place] [address] 200 [place] [id number] 0 Phone: () - 11/22 CBC w/ auto diff MCV fL 80.0 104.0 101.9 FINAL Tamanna noel [facility] - [place] [facility], [address] [place] [address] 200 [place] [id number] 0 Phone: () - 11/22 CBC w/ auto diff MCH pg 26.0 35.0 33.5 FINAL Tamanna noel [facility] - [place] [facility], [address] [place] [address] 200 [place] [id number] 0 Phone: () - 11/22 CBC w/ auto diff MCHC g/dL 30.0 35.0 32.9 FINAL Tamanna noel [facility] [place] [facility], [address] [place] [address] 200 [place] [id number] 0 Phone: () - 11/22 CBC w/ auto diff MPV fL 9.5 13.4 9.3 Low FINAL Tamanna noel Oncology - [place], [address] [place] [id number] 0 Phone: () - 11/22 CBC w/ auto diff RDW % 11.4 16.1 12.70 FINAL Tamanna noel On[facility] - [place], [address] [place] [id number] 0 Phone: () - 11/22 CBC w/ auto diff WBC K/uL 3.0 8.9 8.8 FINAL Tamanna noel On[facility] - [place], [address] [place] [address] [address] [place] [id number] 0 Phone: () - 11/22 CBC w/ auto diff HGB g/dL 11.3 15.2 13.9 FINAL Tamanna noel Oncology - [place], [address] [place] [address] [address] [place] [id number] 0 Phone: () - 11/22 CBC w/ auto diff PLT K/uL 113.0 364.0 197 FINAL Tamanna noel Oncology - [place], [address] [place] [address] [address] [place] [id number] 0 Phone: () - 11/22 CBC w/ auto diff Avtar # (ANC) K/uL 1.6 6.6 5.8 FINAL Tamanna noel On[facility] - [place], [address] [place] [address] [address] [place] [id number] 0 Phone: () - 11/22 CBC w/ auto diff Avtar % % 43.0 74.0 66.0 FINAL Tamanna noel Oncology - [place], [address] [place] [address] [address] [place] [id number] 0 Phone: () - 11/22 CBC w/ auto diff IG % % 0.0 0.5 0.5 FINAL Tamanna noel Oncology - [place], [address] [place] [id number] 0 Phone: () - 11/22 CBC w/ auto diff IG # K/uL 0.0 0.03 0.04 High FINAL Tamanna noel Oncology - [facility], [address] [place] [id number] 0 Phone: () - 11/22 CBC w/ auto diff LY % % 14.0 41.0 20.2 FINAL Tamanna noel Oncology - [facility], [address] [place] [id number] 0 Phone: () - 11/22 CBC w/ auto diff MO % % 6.0 15.0 7.8 FINAL Tamanna noel Oncology [facility], [address] [place] [id number] 0 Phone: () - 11/22 CBC w/ auto diff EO % % 0.0 7.0 4.9 FINAL Tamanna noel Oncology [facility], [address] [place] [id number] 0 Phone: () - 11/22 CBC w/ auto diff BA % % 0.0 2.0 0.6 FINAL Tamanna noel Oncology [facility], [address] [place] [id number] 0 Phone: () - 11/[address] [facility] other lab See nurse discharge planner d 11/[address] [facility] other lab See nurse discharge planner d 11/[address] [facility] other lab See nurse discharge planner d 02/11 CA 125 panel CA 125 UNITS/ ML 0.0 34.0 8.70 Test performed at [facility] on a [employer] 2000 Immunoass ay Analyzer that uses an immunoenz ymometric sandwich assay for analysis. Patient testing should not be performed using multiple methoddanelle soto due to analytica l variation seen between test methoddanelle soto. FINAL Tamanna noel Oncology [address] [id number] [phone] Phone: () - 02/11 CMP Album in g/dL 3.2 5.2 4.3 FINAL Tamanna noel [address] [facility] [id number] 0 Phone: () - 02/11 CMP Alkal ine phosp hatas e U/L 46.0 116.0 53 FINAL Tamanna neol [address] [id number] 0 Phone: () - 02/11 CMP ALT/S GPT U/L 7.0 40.0 14 FINAL Tamanna Peters [address] [id number] 0 Phone: () - 02/11 CMP AST/S GOT U/L 13.0 40.0 22 FINAL Tamanna Peters [address] [id number] 0 Phone: () - 02/11 CMP BUN mg/dL 9.0 23.0 7 Low FINAL Tamanna noel [address] [id number] Phone: () - 02/11 CMP Calci um mg/dL 8.7 10.4 9.6 [facility] Tamanna Peters [address] [id number] 0 Phone: () - 02/11 CMP Chlor sathish mmol/L 96.0 114.0 91 Low [facility] Tamanna Peters [address] [id number] 0 Phone: () - 02/11 CMP CO2 mmol/L 20.0 31.0 26 FINAL Tamanna Peters [address] [id number] 0 Phone: () - 02/11 CMP Creat inine mg/dL 0.5 1.2 1.03 [facility] Tamanna Mcginnis[address] [id number] 0 Phone: () - 02/11 CMP GFR estim ate ml/min /1.73m ^2 54.5 Low GFR is calculate d using the CKD-EPI equation. [facility] Tamanna Mcginnis[address] [id number] 0 Phone: () - 02/11 CMP Gluco se mg/dL 73.0 126.0 97 FINAL Tamanna noel [address] [id number] 0 Phone: () - 02/11 CMP Potas sium mmol/L 3.5 5.1 4.5 FINAL Tamanna noel [address] [id number] 0 Phone: () - 02/11 CMP Sodiu m mmol/L 136.0 145.0 129 Low FINAL Tamanna noel [address] [id number] 0 Phone: () - 02/11 CMP Bilir ubin, total mg/dL 0.3 1.2 0.4 FINAL Tamanna noel [address] [id number] 0 Phone: () - 02/11 CMP Total prote in g/dL 5.7 8.2 6.6 FINAL Tamanna noel [address] [id number] 0 Phone: () - 02/11 CBC w/ auto diff WBC K/uL 3.0 8.9 9.2 High FINAL Tamanna noel [facility], [address] [place] [address] 200 [place] [id number] 0 Phone: () - 02/11 CBC w/ auto diff HGB g/dL 11.3 15.2 13.3 FINAL Tamanna noel [facility], [address] [place] [address] 200 [place] [id number] 0 Phone: () - 02/11 CBC w/ auto diff PLT K/uL 113.0 364.0 267 FINAL Tamanna noel [facility], [address] [place] [address] 200 [place] [id number] 0 Phone: () - 02/11 CBC w/ auto diff Avtar # (ANC) K/uL 1.6 6.6 6.1 FINAL Tamanna noel Oncology - [place], [address] [place] [address] [address] [place] [id number] 0 Phone: () - 02/11 CBC w/ auto diff Avtar % % 43.0 74.0 66.8 FINAL Tamanna noel Oncology - [place], [address] [place] [address] [address] [place] [id number] 0 Phone: () - 02/11 CBC w/ auto diff IG % % 0.0 0.5 1.9 High FINAL Tamanna noel Oncology - [place], [address] [place] [address] [address] [place] [id number] 0 Phone: () - 02/11 CBC w/ auto diff IG # K/uL 0.0 0.03 0.17 High FINAL Tamanna noel Oncology - [place], [address] [place] [address] 200 [place] [id number] 0 Phone: () - 02/11 CBC w/ auto diff LY % % 14.0 41.0 19.2 FINAL Tamanna noel Oncology - [place], [address] [place] [address] [address] [place] [id number] 0 Phone: () - 02/11 CBC w/ auto diff MO % % 6.0 15.0 9.2 FINAL Tamanna noel On[facility] - [place], [address] [place] [address] [address] [place] [id number] 0 Phone: () - 02/11 CBC w/ auto diff EO % % 0.0 7.0 2.5 FINAL Tamanna noel On[facility] - [place], [address] [place] [address] [address] [place] [id number] 0 Phone: () - 02/11 CBC w/ auto diff BA % % 0.0 2.0 0.4 FINAL Tamanna noel Oncology - [place], [address] [place] [address] [address] [place] [id number] 0 Phone: () - 02/11 CBC w/ auto diff LY # K/uL 0.4 3.6 1.8 FINAL Tamanna noel Oncology - [place], [address] [place] [id number] 0 Phone: () - 02/11 CBC w/ auto diff MO # K/uL 0.2 1.3 0.8 FINAL Tamanna noel Oncology - [place], [address] 200 [place] [id number] 0 Phone: () - 02/11 CBC w/ auto diff EO # K/uL 0.0 0.6 0.2 FINAL Tamanna noel Oncology - [place], [address] [place] [id number] 0 Phone: () - 02/11 CBC w/ auto diff BA # K/uL 0.0 0.2 0.0 FINAL Tamanna noel [facility] - [place] [facility], [address] [place] [id number] 0 Phone: () - 02/11 CBC w/ auto diff NRBC % #/100W BC 0.0 0.2 0.2 FINAL Tamanna noel On[facility] - [place], [address] [place] [address] 200 [place] [id number] 0 Phone: () - 02/11 CBC w/ auto diff RBC M/uL 3.9 5.1 4.09 FINAL Tamanna noel Oncology - [place], [address] [place] [address] 200 [place] [id number] 0 Phone: () - 02/11 CBC w/ auto diff HCT % 35.0 48.0 40.6 FINAL Tamanna noel On[facility] - [place], [address] [place] [address] 200 [place] [id number] 0 Phone: () - 02/11 CBC w/ auto diff MCV fL 80.0 104.0 99.3 FINAL Tamanna noel [facility] [place] [facility], [address] [place] [address] 200 [place] [id number] 0 Phone: () - 02/11 CBC w/ auto diff MCH pg 26.0 35.0 32.5 FINAL Tamanna noel [facility] [place] [facility], [address] [place] [address] 200 [place] [id number] 0 Phone: () - 02/11 CBC w/ auto diff MCHC g/dL 30.0 35.0 32.8 FINAL Tamanna noel [facility] [place] [facility], [address] 200 [email or web address] [place] [id number] 0 Phone: () - 02/11 CBC w/ auto diff MPV fL 9.5 13.4 8.6 Low FINAL Tamanna noel Oncology [facility], [address] 200 [email or web address] [id number] 0 Phone: () - 02/11 CBC w/ auto diff RDW % 11.4 16.1 14.[address] [facility], [address] [place] [address] 200 [email or web address] [id number] 0 Phone: () - 02/11 iSTAT creat inine panel Creat inine , iSTAT mg/dl 0.6 1.3 1.3 FINAL Tamanna noel Oncology [facility], [address] 200 [email or web address] [id number] 0 Phone: () - 02/11 iSTAT creat inine panel GFR estim ate ml/min /1.73m ^2 41.2 Low GFR is calculate d using the CKD-EPI equation. FINAL Tamanna noel [facility], [address] [place] [address] 200 [email or web address] [phone] 0 Phone: () - 02/[address] [facility] other lab See nurse discharge planner d 05/23 CA 125 panel CA 125 UNITS/ ML 0.0 34.0 7.00 Test performed at [facility] on a [employer] 2000 Immuno[employer] ay Analyzer that uses an immunoenz ymometric sandwich assay for analysis. Patient testing should not be performed using clarence soto due to analytica l variation seen between test hallie soto. FINAL Harper Peters [facility], [address] [facility] [address] [place] [id number] 0 Phone: () - 05/23 CMP Album in g/dL 3.2 5.2 4.6 FINAL Harper noel [facility] [address] [id number] [phone] Phone: () - 05/23 CMP Alkal ine phosp hatas e U/L 46.0 116.0 58 FINAL Harper Peters [facility] [address] [id number] 0 Phone: () - 05/23 CMP ALT/S GPT U/L 7.0 40.0 11 [place]AL [place] [address] [id number] 0 Phone: () - 05/23 CMP AST/S GOT U/L 13.0 40.0 23 FINAL Harper Wheeler [place] [address] [id number] 0 Phone: () - 05/23 CMP BUN mg/dL 9.0 23.0 15 FINAL Harper Wheeler [place] [address] [id number] 0 Phone: () - 05/23 CMP Calci um mg/dL 8.7 10.4 10.1 FINAL Harper Wheeler [place] [address] [id number] 0 Phone: () - 05/23 CMP Chlor sathish mmol/L 96.0 114.0 88 Low FINAL Harper Wheeler [place] [address] [id number] 0 Phone: () - 05/23 CMP CO2 [...] 96 hour stability window. FINAL Harper Wheeler [place] [address] [id number] 0 Phone: () - 05/23 CMP Creat inine mg/dL 0.5 1.2 0.97 FINAL Harper Mcginnis bert [place] [address] [address] [facility] [address] [place] [address] [id number] 0 Phone: () - 05/23 CMP GFR estim ate ml/min /1.73m ^2 58.5 Low GFR is calculate d using the CKD-EPI equation. FINAL Harper Wheeler [place] [address] [address] [facility] [address] [place] [address] [id number] 0 Phone: () - 05/23 CMP Gluco se mg/dL 73.0 126.0 72 Low FINAL Harper Wheeler [place] [address] [address] [facility] [address] [place] [address] [id number] 0 Phone: () - 05/23 CMP Potas sium mmol/L 3.5 5.1 4.8 FINAL Harper Wheeler [place] [address] [id number] 0 Phone: () - 05/23 CMP Sodiu m mmol/L 136.0 145.0 129 Low [facility] [address] [id number] 0 Phone: () - 05/23 CMP Bilir ubin, total mg/dL 0.3 1.2 0.3 FINAL Harper Mcginnis bert [place] [address] [id number] 0 Phone: () - 05/23 CMP Total prote in g/dL 5.7 8.2 7.3 FINAL Harper Mcginnis bert [place] [address] [address] [facility] [address] [place] [address] [id number] 0 Phone: () - 05/23 CBC w/ auto diff WBC K/uL 3.0 8.9 8.9 FINAL Harper Mcginnis bert [facility] lis, [address] [place] [address] [address] [facility] [id number] 0 Phone: () - 05/23 CBC w/ auto diff HGB g/dL 11.3 15.2 15.7 High FINAL Harper Bonden [place] [facility] [place], [address] [place] [address] [address] [place] [id number] 0 Phone: () - 05/23 CBC w/ auto diff PLT K/uL 113.0 364.0 220 FINAL Harper noel [facility] - [place], [address] [place] [address] [address] [place] [id number] 0 Phone: () - 05/23 CBC w/ auto diff Avtar # (ANC) K/uL 1.6 6.6 5.5 FINAL Harper Peters [facility] [place], [address] [place] [address] [address] [place] [id number] 0 Phone: () - 05/23 CBC w/ auto diff Avtar % % 43.0 74.0 62.5 FINAL Harper Mcginnisot a [facility] - [place], [address] [place] [address] [address] [place] [id number] 0 Phone: () - 05/23 CBC w/ auto diff IG % % 0.0 0.5 0.5 FINAL Harper Mcginnisot bert [facility] - [place], [address] [place] [address] [address] [place] [id number] 0 Phone: () - 05/23 CBC w/ auto diff IG # K/uL 0.0 0.03 0.04 High FINAL Harper noel [facility] - [place], [address] [place] [address] [address] [place] [id number] 0 Phone: () - 05/23 CBC w/ auto diff LY % % 14.0 41.0 22.5 FINAL Harper Peters [facility] [place], [address] [place] [address] [address] [place] [id number] 0 Phone: () - 05/23 CBC w/ auto diff MO % % 6.0 15.0 8.0 FINAL Harper Mcginnisot bert [facility] - [place], [address] [place] [address] [address] [place] [id number] 0 Phone: () - 05/23 CBC w/ auto diff EO % % 0.0 7.0 5.9 FINAL Harper Mcginnisot a [facility] - [place], [address] [place] [address] 200 [place] [id number] 0 Phone: () - 05/23 CBC w/ auto diff BA % % 0.0 2.0 0.6 FINAL Harper noel [facility] - [place], [address] 200 [place] [id number] 0 Phone: () - 05/23 CBC w/ auto diff LY # K/uL 0.4 3.6 2.0 FINAL Harper noel On[facility] - [place], [address] [place] [address] 200 [place] [id number] 0 Phone: () - 05/23 CBC w/ auto diff MO # K/uL 0.2 1.3 0.7 FINAL Harper noel Oncology - [place], [facility] [address] 200 [place] [id number] 0 Phone: () - 05/23 CBC w/ auto diff EO # K/uL 0.0 0.6 0.5 FINAL Harper noel On[facility] - [place], [address] [place] [address] 200 [place] [id number] 0 Phone: () - 05/23 CBC w/ auto diff BA # K/uL 0.0 0.2 0.1 FINAL Harper noel On[facility] - [place], [address] [place] [address] 200 [place] [id number] 0 Phone: () - 05/23 CBC w/ auto diff NRBC % #/100W BC 0.0 0.2 0.0 FINAL Harper noel Oncology - [place], [facility] [address] 200 [place] [id number] 0 Phone: () - 05/23 CBC w/ auto diff RBC M/uL 3.9 5.1 4.85 FINAL Harper noel On[facility] - [place], [address] [place] [address] 200 [place] [id number] 0 Phone: () - 05/23 CBC w/ auto diff HCT % 35.0 48.0 47.1 FINAL Harper noel On[facility] - [place], [address] [place] [address] 200 [place] [id number] 0 Phone: () - 05/23 CBC w/ auto diff MCV fL 80.0 104.0 97.1 FINAL Harper Mcginnisot bert [facility] [place] [facility], [address] [place] [id number] 0 Phone: () - 05/23 CBC w/ auto diff MCH pg 26.0 35.0 32.4 FINAL Harper Mcginnisot bert [facility] [place] [facility], [address] [place] [id number] 0 Phone: () - 05/23 CBC w/ auto diff MCHC g/dL 30.0 35.0 33.3 FINAL Harper Mcginnisot bert [facility] [place] [facility], [address] [place] [id number] 0 Phone: () - 05/23 CBC w/ auto diff MPV fL 9.5 13.4 9.1 Low FINAL Harper Mcginnis a [facility] [place] [facility], [address] 200 [place] [id number] 0 Phone: () - 05/23 CBC w/ auto diff RDW % 11.4 16.1 13.00 FINAL Harper Mcginnis bert [facility] [place] [facility], [address] 200 [place] [id number] 0 Phone: () - 05/[address] [facility] other lab See nurse discharge planner d 08/[address] [facility] other lab See nurse discharge planner d 11/[address] [facility] other lab See nurse discharge planner d 11/[address] [facility] other lab See nurse discharge planner d 11/[address] [facility] other lab See nurse discharge planner d 02/[address] [facility] other lab See nurse discharge planner d 03/[address] [facility] other lab See nurse discharge planner d 03/[address] [facility] other lab See nurse discharge planner d 04/[address] [facility] other lab See nurse discharge planner d 05/18 CA 125 panel CA 125 UNITS/ ML 0.0 34.0 9.50 Test performed at [facility] on a [employer] 2000 Immuno[employer] ay Analyzer that uses an immunoenz ymometric sandwich assay for analysis. Patient testing should not be performed using multiple methodolo gies due to analytica l variation seen between test methodolo gies. FINAL Harper Peters [facility] - [place], [address] [facility] [id number] 0 Phone: () - 11/[address] [facility] other lab See nurse discharge planner d 11/14 CA 125 panel CA 125 UNITS/ ML 0.0 34.0 12.60 Test performed at [facility] on a [employer] 2000 Immun[employer] ay Analyzer that uses an immunoenz ymometric sandwich assay for analysis. Patient testing should not be performed using multiple methodolo gies due to analytica l variation seen between test methodolo gies. FINAL Harper Peters a Oncology - [facility] [address] [facility] [id number] 0 Phone: () - 02/[address] [facility] other lab See nurse discharge planner d 05/23 CA 125 panel CA 125 UNITS/ ML 0.0 34.0 10.30 Test performed at [facility] on a [employer] 2000 Immun[employer] ay Analyzer that uses an immunoenz ymometric sandwich assay for analysis. Patient testing should not be performed using multiple methodolo gies due to analytica l variation seen between test methodolo gies. FINAL Pippa worthington [employer] [facility] - [facility] [address] [facility] [id number] 0 Phone: () - 09/[address] [facility] other lab See nurse discharge planner d 09/07 CA 125 panel CA 125 UNITS/ ML 0.0 34.0 9.80 Test performed at [facility] on a [employer] 2000 [employer] Analyzer that uses an immunoenz ymometric sandwich assay for analysis. Patient testing should not be performed using multiple methodolo gies due to analytica l variation seen between test methodolo gies. FINAL Theresa worthington [facility] [facility] - [place], [address] [facility] [facility] [id number] 0 Phone: () - 03/17 CA 125 panel CA 125 U/ML 0.0 35.0 12.40 Test performed at [facility] on a [employer] Immun[employer] Analyzer that uses an immunomet negro immunoass ay technique . Patient testing should not be performed using multiple methodolo gies due to analytica l variation seen between test methodolo gies. FINAL Theresa Bollinge r * [place] [facility] [place], [facility] [address] [phone] 09/15 CA 125 panel CA 125 U/ML 0.0 35.0 8.60 Test performed at [facility] on a [employer]600 [employer] Analyzer that uses an immunomet negro immunoass ay technique . Patient testing should not be performed using multiple methodolo gies due to analytica l variation seen between test methodolo gies. FINAL Pippa Anne Marie [place] * [facility] On[facility] , [facility] [address] [facility] [id number] 03/17 CA 125 panel CA 125 U/ML 0.0 35.0 8.90 Test performed at [facility] on a [place] [address] [employer] ay Analyzer that uses an immunomet negro immunoass ay technique . Patient testing should not be performed using multiple methodolo gies due to analytica l variation seen between test methodolo gies. 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
[2025-07-20 00:10] LABS: Hematocrit* 44.4 % (33.0-51.0); Hemoglobin* 14.1 gm/dL (12.0-16.0); Mean Corpuscular HGB Conc 32 gm/dL (32-36); Mean Corpuscular Hemoglobin 32 pg (26-34); Mean Corpuscular Volume 99 fL (80-100); RDW Coefficient of Variation % 13.9 % (11.5-15.5); Red Blood Count* 4.47 m/uL (4.00-5.20); White Blood Count* 9.15 K/uL (4.50-11.00)
--- OUTSIDE RECORDS SUMMARY | 2025-07-20 00:10 | XMS_ITS ---
Author Name Interface, [id number] lity Address [address] [facility] [address] [address] [facility] Oncology Address [address] [facility] [address] [address] Allergies and Adverse Reactions Medication/Group Name Reaction [...] APPOINTMENT CT - 605 CT CAP @ [facility] - CHECK IN @10 AM 11/22/2020 [...] Sodiu m mmol/L 135.0 145.0 135 FINAL [facility] 01/18 CMP Potas sium mmol/L 3.5 5.0 4.2 FINAL [facility] 01/18 CMP Chlor sathish mmol/L 98.0 110.0 99 FINAL [facility] 01/18 CMP CO2 mmol/L 21.0 31.0 28 FINAL [facility] 01/18 CMP Anion gap, mmol/ L 5.0 [...] GOT IU/L 2.0 40.0 34 Test Performed by:[facility] [address], [address] - [facility] [place] [address]Ggcu e : FINAL Tamanna Rolon 01/18 CBC w/ auto diff WBC K/uL 3.0 8.9 8.1 FINAL Tamanna Gonzales noel [facility] - [place], [address] [place] [id number] 0 Phone: () - 01/18 CBC w/ auto diff HGB g/dL 11.3 15.2 11.7 FINAL Tamanna noel On[facility] - [place], [address] [place] [id number] 0 Phone: () - 01/18 CBC w/ auto diff PLT K/uL 113.0 364.0 156 FINAL Tamanna noel On[facility] - [place], [address] [place] [id number] 0 Phone: () - 01/18 CBC w/ auto diff Avtar # (ANC) K/uL 1.6 6.6 4.3 FINAL Tamanna noel [facility] - [place], [address] [place] [id number] 0 Phone: () - 01/18 CBC w/ auto diff Avtar % % 43.0 74.0 52.3 FINAL Tamanna noel On[facility] - [place], [address] [place] [id number] 0 Phone: () - 01/18 CBC w/ auto diff IG % % 0.0 0.5 0.5 FINAL Tamanna noel Oncology - [place], [address] [place] [id number] 0 Phone: () - 01/18 CBC w/ auto diff IG # K/uL 0.0 0.03 0.04 High FINAL Tamanna noel Oncology - [place], [address] [place] [id number] 0 Phone: () - 01/18 CBC w/ auto diff LY % % 14.0 41.0 31.7 FINAL Tamnana noel Oncology - [place], [address] [place] [address] [address] [place] [id number] 0 Phone: () - 01/18 CBC w/ auto diff MO % % 6.0 15.0 10.4 FINAL Tamanna noel On[facility] - [place], [address] [place] [id number] 0 Phone: () - 01/18 CBC w/ auto diff EO % % 0.0 7.0 4.5 FINAL Tamanna noel [facility] - [place], [address] [place] [address] 200 [facility] [place] [id number] 0 Phone: () - 01/18 CBC w/ auto diff BA % % 0.0 2.0 0.6 FINAL Tamanna noel On[facility] - [place], [address] [place] [address] 200 [facility] [place] [phone] 0 Phone: () - 01/18 CBC w/ auto diff LY # K/uL 0.4 3.6 2.6 FINAL Tamanna noel [facility] - [place], [address] [place] [address] 200 [facility] [place] [id number] 0 Phone: () - 01/18 CBC w/ auto diff MO # K/uL 0.2 1.3 0.9 FINAL Tamanna noel [facility] - [place], [address] [place] [address] 200 [facility] [place] [id number] 0 Phone: () - 01/18 CBC w/ auto diff EO # K/uL 0.0 0.6 0.4 FINAL Tamanna noel Oncology [place] [facility], [address] [place] [address] 200 [facility] [place] [id number] 0 Phone: () - 01/18 CBC w/ auto diff BA # K/uL 0.0 0.2 0.1 FINAL Tamanna noel Oncology [place] [facility], [address] [place] [address] 200 [facility] [place] [phone] 0 Phone: () - 01/18 CBC w/ auto diff NRBC % #/100W BC 0.0 0.2 0.0 FINAL Tamanna noel Oncology - [place], [address] [place] [address] 200 [facility] [place] [id number] 0 Phone: () - 01/18 CBC w/ auto diff RBC M/uL 3.9 5.1 3.36 Low FINAL Tamanna noel Oncology - [place], [address] [place] [address] 200 [facility] [id number] 0 Phone: () - 01/18 CBC w/ auto diff HCT % 35.0 48.0 34.2 Low FINAL Tamanna noel Oncology - [facility], [address] [place] [id number] 0 Phone: () - 01/18 CBC w/ auto diff MCV fL 80.0 104.0 101.8 FINAL Tamanna noel Oncology [facility], [address] [place] [id number] 0 Phone: () - 01/18 CBC w/ auto diff MCH pg 26.0 35.0 34.8 FINAL Tamanna noel Oncology [facility], [address] [place] [id number] 0 Phone: () - 01/18 CBC w/ auto diff MCHC g/dL 30.0 35.0 34.2 FINAL Tamanna noel [facility], [address] [place] [id number] 0 Phone: () - 01/18 CBC w/ auto diff MPV fL 9.5 13.4 9.7 FINAL Tamanna noel Oncology [facility], [address] [place] [id number] 0 Phone: () - 01/18 CBC w/ auto diff RDW % 11.4 16.1 13.20 FINAL Tamanna noel [facility], [address] [place] [id number] 0 Phone: () - 01/18 CA 125 panel CA 125 UNITS/ ML 0.0 34.0 9.40 Test performed at [facility] on a zhouwu Immunoass ay Analyzer that uses an immunoenz ymometric sandwich assay for analysis. Patient testing should not be performed using multiple hallie soto due to analytica l variation seen between test hallie soto. FINAL Tamanna noel Oncology - [place], [address] [facility] [address] [place] [id number] 0 Phone: () - 01/18 TSH panel TSH uIU/ml 0.32 5.0 1.55 Test performed at [facility] on a Book of Odds 2000 Immunoass ay Analyzer that uses an immunoenz ymometric sandwich assay for analysis. Patient testing should not be performed using multiple hallie soto due to analytica l variation seen between test methoddanelle soto. FINAL Tamanna Mcginnisot a Oncology - [place], [address] [facility] [address] [facility] [id number] 0 Phone: () - 01/18 [facility] other lab See arrow point attacher d 02/15 CMP Creat inine mg/dL 0.57 [...] GOT IU/L 2.0 40.0 31 Test Performed by:[facility] [address] - [facility] [place], [place] [address]Pufq e : FINAL Annamarie Prenderg ast 02/15 CMP Sodiu m mmol/L 135.0 145.0 134 Low FINAL Annamarei Prenderg ast 02/15 CMP Potas sium mmol/L [...] rivero [place] [facility] [place] [facility], [address] [place] [address] 200 [place] [id number] 0 Phone: () - 02/15 CBC w/ auto diff HGB g/dL 11.3 15.2 11.8 FINAL Annamarie Mcginnisot a Oncology [place] [facility], [address] [place] [address] 200 [place] [id number] 0 Phone: () - 02/15 CBC w/ auto diff PLT K/uL 113.0 364.0 165 FINAL Annamarie Mcginnisot a Oncology [place] [facility], [address] [place] [address] 200 [place] [id number] 0 Phone: () - 02/15 CBC w/ auto diff Avtar # (ANC) K/uL 1.6 6.6 5.3 FINAL Annamarie Mcginnisot a Oncology [place] [facility], [address] [place] [address] 200 [place] [id number] 0 Phone: () - 02/15 CBC w/ auto diff Avtar % % 43.0 74.0 57.3 FINAL Annamarie Mcginnisot a Oncology [place] [facility], [address] [place] [address] 200 [place] [id number] 0 Phone: () - 02/15 CBC w/ auto diff IG % % 0.0 0.5 0.6 High FINAL Annamarie Mcginnisot a Oncology - [place], [address] [place] [address] [address] [place] [id number] 0 Phone: () - 02/15 CBC w/ auto diff IG # K/uL 0.0 0.03 0.06 High FINAL Annamarie Mcginnisot a Oncology - [place], [address] [place] [address] [address] [place] [id number] 0 Phone: () - 02/15 CBC w/ auto diff LY % % 14.0 41.0 27.4 FINAL Annamarie Mcginnisot a Oncology - [place], [address] [place] [address] [address] [place] [id number] 0 Phone: () - 02/15 CBC w/ auto diff MO % % 6.0 15.0 9.1 FINAL Annamarie Mcginnisot a Oncology - [place], [address] [place] [address] [address] [place] [id number] 0 Phone: () - 02/15 CBC w/ auto diff EO % % 0.0 7.0 5.0 FINAL Annamarie Mcginnisot a Oncology - [place], [address] [place] [address] [address] [place] [id number] 0 Phone: () - 02/15 CBC w/ auto diff BA % % 0.0 2.0 0.6 FINAL Annamarie Mcginnisot a Oncology - [place], [address] [place] [address] [address] [place] [id number] 0 Phone: () - 02/15 CBC w/ auto diff LY # K/uL 0.4 3.6 2.5 FINAL Annamarie Mcginnisot a Oncology - [place], [address] [place] [address] [address] [place] [id number] 0 Phone: () - 02/15 CBC w/ auto diff MO # K/uL 0.2 1.3 0.8 FINAL Annamarie Mcginnisot a Oncology - [place], [address] [place] [address] [address] [place] [id number] 0 Phone: () - 02/15 CBC w/ auto diff EO # K/uL 0.0 0.6 0.5 FINAL Annamarie noel Oncology - [place], [address] [place] [address] [address] [place] [id number] 0 Phone: () - 02/15 CBC w/ auto diff BA # K/uL 0.0 0.2 0.1 FINAL Annamarie noel Oncology [place] [facility], [address] [place] [address] [address] [place] [id number] 0 Phone: () - 02/15 CBC w/ auto diff NRBC % #/100W BC 0.0 0.2 0.0 FINAL Annamarie noel Oncology [place] [facility], [address] [place] [address] [address] [place] [id number] 0 Phone: () - 02/15 CBC w/ auto diff RBC M/uL 3.9 5.1 3.41 Low FINAL Annamarie Peters a Oncology - [place] [facility], [address] [place] [address] [address] [place] [id number] 0 Phone: () - 02/15 CBC w/ auto diff HCT % 35.0 48.0 35.1 FINAL Annamarie noel Oncology - [place], [address] [place] [address] [address] [place] [id number] 0 Phone: () - 02/15 CBC w/ auto diff MCV fL 80.0 104.0 102.9 FINAL Annamarie noel Oncology [place] [facility], [address] [place] [address] [address] [place] [id number] 0 Phone: () - 02/15 CBC w/ auto diff MCH pg 26.0 35.0 34.6 FINAL Annamarie noel Oncology [place] [facility], [address] [place] [address] [address] [place] [id number] 0 Phone: () - 02/15 CBC w/ auto diff MCHC g/dL 30.0 35.0 33.6 FINAL Annamarie Mcginnisot bert Oncology [place] [facility], [address] [place] [address] [address] [place] [id number] 0 Phone: () - 02/15 CBC w/ auto diff MPV fL 9.5 13.4 9.4 Low FINAL Annamarie noel [facility], [address] [place] [address] [address] [facility] [id number] 0 Phone: () - 02/15 CBC w/ auto diff RDW % 11.4 16.1 13.20 FINAL Annamarie noel [facility], [address] [place] [address] [address] [facility] [id number] 0 Phone: () - 02/15 CA 125 panel CA 125 UNITS/ ML 0.0 34.0 8.40 Test performed at [facility] on a Book of [employer] 2000 Immunoass ay Analyzer that uses an immunoenz ymometric sandwich assay for analysis. Patient testing should not be performed using multiple methodolo gies due to analytica l variation seen between test methodolo gies. FINAL Annamarie noel [address] [id number] 0 Phone: () - 02/15 TSH panel TSH uIU/mL 0.35 4.94 1.72 In Adults, TSH values between 5.00 and 10.00 uIU/ml do notnecess arily indicate the presence of Hypothyro idism.Cor relation with clinical findings such as presence of goiterand /or Thyropero xidase (TPO) Antibody may be helpful. Formore informati on please refer to KYLAH 2004; 291: 228-238.T est Performed by:[facility] [address] - [place], [place] [address]Fogk e : FINAL Annamarie rivero 02/15 [facility] See arrow point attacher d 03/15 TSH panel TSH uIU/ml 0.32 5.0 3.10 Test performed at [facility] on a Book of [employer] 2000 Immunoass ay Analyzer that uses an immunoenz ymometric sandwich assay for analysis. Patient testing should not be performed using multiple methodolo gies due to analytica l variation seen between test methodolo gies. FINAL Annamarie noel [facility], [address] [place] [id number] 0 Phone: () - 03/15 CA 125 panel CA 125 UNITS/ ML 0.0 34.0 8.00 Test performed at [facility] on a Book of [employer] 2000 Immunoass ay Analyzer that uses an immunoenz ymometric sandwich assay for analysis. Patient testing should not be performed using multiple hallie soto due to analytica l variation seen between test hallie soto. FINAL Annamarie noel Oncology [facility], [address] [facility] [address] [facility] [id number] 0 Phone: () - 03/15 CBC w/ auto diff WBC K/uL 3.0 8.9 8.9 FINAL [facility], [address] 200 [place] [id number] 0 Phone: () - 03/15 CBC w/ auto diff HGB g/dL 11.3 15.2 12.1 FINAL [facility], [address] [place] [address] 200 [place] [id number] 0 Phone: () - 03/15 CBC w/ auto diff PLT K/uL 113.0 364.0 171 FINAL [facility], [address] [place] [address] 200 [place] [id number] 0 Phone: () - 03/15 CBC w/ auto diff Avtar # (ANC) K/uL 1.6 6.6 5.2 FINAL [facility]nam[facility], [address] [place] [address] 200 [place] [id number] 0 Phone: () - 03/15 CBC w/ auto diff Avtar % % 43.0 74.0 58.5 FINAL [facility], [address] [place] [address] 200 [place] [id number] 0 Phone: () - 03/15 CBC w/ auto diff IG % % 0.0 0.5 0.7 High FINAL Annamarie Mcginnisot bert [facility], [address] [place] [address] 200 [place] [id number] 0 Phone: () - 03/15 CBC w/ auto diff IG # K/uL 0.0 0.03 0.06 High FINAL Annamarie Mcginnisot bert [facility], [address] [place] [address] 200 [place] [id number] 0 Phone: () - 03/15 CBC w/ auto diff LY % % 14.0 41.0 27.2 FINAL Annamarie Mcginnisot a Oncology - [place], [address] [place] [id number] 0 Phone: () - 03/15 CBC w/ auto diff MO % % 6.0 15.0 7.4 FINAL Annamarie rivero [place] [facility] [place], [address] [place] [address] [address] [place] [id number] 0 Phone: () - 03/15 CBC w/ auto diff EO % % 0.0 7.0 5.5 FINAL Annamarie Mcginnisot a On[facility] - [place], [facility] [address] 200 [place] [id number] 0 Phone: () - 03/15 CBC w/ auto diff BA % % 0.0 2.0 0.7 FINAL Annamarie Mcginnisot a Oncology - [place], [facility] [address] 200 [place] [id number] 0 Phone: () - 03/15 CBC w/ auto diff LY # K/uL 0.4 3.6 2.4 FINAL Annamarie Mcginnisot a Oncology [place] [facility], [address] [place] [address] 200 [place] [id number] 0 Phone: () - 03/15 CBC w/ auto diff MO # K/uL 0.2 1.3 0.7 FINAL Annamarie Mcginnisot a Oncology - [place], [facility] [address] [place] [id number] 0 Phone: () - 03/15 CBC w/ auto diff EO # K/uL 0.0 0.6 0.5 FINAL Annamarie Mcginnisot a Oncology - [place], [facility] [address] [place] [id number] 0 Phone: () - 03/15 CBC w/ auto diff BA # K/uL 0.0 0.2 0.1 FINAL Annamarie rivero [place] [facility] [place], [address] [place] [id number] 0 Phone: () - 03/15 CBC w/ auto diff NRBC % #/100W BC 0.0 0.2 0.0 FINAL Annamarie Mcginnisot bert Oncology [place] [facility], [address] [place] [address] [address] [place] [id number] 0 Phone: () - 03/15 CBC w/ auto diff RBC M/uL 3.9 5.1 3.41 Low FINAL Annamarie Mcginnisot a Oncology [place] [facility], [address] [place] [address] [address] [place] [id number] 0 Phone: () - 03/15 CBC w/ auto diff HCT % 35.0 48.0 35.5 FINAL Annamarie noel Oncology - [place] [facility], [address] 200 [place] [id number] 0 Phone: () - 03/15 CBC w/ auto diff MCV fL 80.0 104.0 104.1 High FINAL Annamarie Mcginnisot a Oncology [facility] [place] [facility], [facility] [address] [place] [id number] 0 Phone: () - 03/15 CBC w/ auto diff MCH pg 26.0 35.0 35.5 High FINAL Annamarie Mcginnisot a Oncology [place] [facility], [address] [place] [address] [address] [place] [id number] 0 Phone: () - 03/15 CBC w/ auto diff MCHC g/dL 30.0 35.0 34.1 FINAL Annamarie Mcginnisot a Oncology [place] [facility], [address] [place] [address] [address] [place] [id number] 0 Phone: () - 03/15 CBC w/ auto diff MPV fL 9.5 13.4 9.6 FINAL Annamarie Mcginnisot a Oncology [place] [facility], [address] [place] [address] [address] [place] [id number] 0 Phone: () - 03/15 CBC w/ auto diff RDW % 11.4 16.1 13.00 FINAL Annamarie Mcginnisot a Oncology [place] [facility], [address] [place] [address] [address] [place] [id number] 0 Phone: () - 03/15 CMP Sodiu m mmol/L 135.0 145.0 133 Low FINAL Annamarie Zamorano ast 03/15 CMP Potas sium mmol/L 3.5 5.0 4.5 FINAL [facility] CMP Chlor sathish mmol/L 98.0 110.0 96 Low FINAL [facility] 03/15 CMP CO2 mmol/L 21.0 31.0 29 FINAL [facility] CMP Anion gap, mmol/ L 5.0 18.0 8.0% FINAL [facility]15 CMP Gluco se mg/dL 65.0 100.0 95 FINAL [facility]15 CMP Calci um mg/dL 8.5 10.5 10.3 FINAL [facility]15 CMP BUN mg/dL 8.0 25.0 14 FINAL [facility] ast 03/15 CMP Creat inine mg/dL 0.57 1.11 1.13 High FINAL [place] [facility] CMP BUN/C reati nine ratio 10.0 20.0 12.0% FINAL [place] [facility] 03[facility]15 CMP GFR Afric an Ameri can, estim ated ml/min /1.73m 2 58 Low FINAL [facility]/15 CMP GFR non-A frica n Ameri can, estim ated ml/min /1.73m 2 48 Low FINAL [place] [facility]/15 CMP Album in g/dL 3.2 4.6 4.3 FINAL [place] [facility] 03/15 CMP Total prote in g/dL 6.0 8.0 7.5 FINAL [facility] ast 03/15 CMP Globu samreen g/dL 2.0 3.7 3.2 FINAL [place] [facility] 03/15 CMP A/G ratio 1.0 2.0 1.3% FINAL [place] [facility] 03/15 CMP Bilir ubin, total mg/dL 0.2 1.2 0.5 FINAL [facility] ast 03/15 CMP Alkal ine phosp hatas e IU/L 50.0 136.0 69 FINAL [facility] ast 03/15 CMP ALT/S GPT IU/L 8.0 45.0 18 FINAL Annamarie Zamorano ast 03/15 CMP AST/S GOT IU/L 2.0 40.0 29 Test Performed by:[facility] [address] - [facility], [place], [place] [address]Ifze e [phone] FINAL Annamarei Zamorano ast 03/15 [facility] other lab See arrow point attacher d 03/15 Misc other lab See arrow point attacher d 03/24 Misc other lab See arrow point attacher d 04/12 CA 125 panel CA 125 UNITS/ ML 0.0 34.0 7.70 Test performed at [facility] on a TosACE 2000 Immunoass ay Analyzer that uses an immunoenz ymometric sandwich assay for analysis. Patient testing should not be performed using multiple methodolo gies due to analytica l variation seen between test methodolo gies. FINAL Annamarie noel [address] [place] [address] [id number] 0 Phone: () - 04/12 TSH panel TSH uIU/ml 0.32 5.0 1.71 Test performed at [facility] on a TosACE 2000 Immunoass ay Analyzer that uses an immunoenz ymometric sandwich assay for analysis. Patient testing should not be performed using multiple methodolo gies due to analytica l variation seen between test methodolo gies. FINAL Annamarie noel [facility], [address] [place] [address] [place] [address] [place] [id number] 0 Phone: () - 04/12 CBC w/ auto diff MCH pg 26.0 35.0 35.0 FINAL Annamarie noel [facility], [address] [place] [id number] 0 Phone: () - 04/12 CBC w/ auto diff MCHC g/dL 30.0 35.0 33.1 FINAL Annamarie noel [facility], [address] [place] [id number] 0 Phone: () - 04/12 CBC w/ auto diff MPV fL 9.5 13.4 9.5 FINAL Annamarie noel Oncology - [place], [address] [place] [id number] 0 Phone: () - 04/12 CBC w/ auto diff RDW % 11.4 16.1 12.90 FINAL Annamarie noel Oncology - [place] [facility], [address] 200 [place] [id number] 0 Phone: () - 04/12 CBC w/ auto diff WBC K/uL 3.0 8.9 8.9 FINAL Annamarie noel Oncology - [place] [facility], [address] 200 [place] [id number] 0 Phone: () - 04/12 CBC w/ auto diff HGB g/dL 11.3 15.2 11.8 FINAL Annamarie noel Oncology - [place] [facility], [address] 200 [place] [id number] 0 Phone: () - 04/12 CBC w/ auto diff PLT K/uL 113.0 364.0 162 FINAL Annamarie noel Oncology [place] [facility], [address] 200 [place] [id number] 0 Phone: () - 04/12 CBC w/ auto diff Avtar # (ANC) K/uL 1.6 6.6 5.0 FINAL Annamarie noel Oncology [place] [facility], [address] 200 [place] [id number] 0 Phone: () - 04/12 CBC w/ auto diff Avtar % % 43.0 74.0 56.1 FINAL Annamarie noel Oncology [place] [facility], [address] 200 [place] [id number] 0 Phone: () - 04/12 CBC w/ auto diff IG % % 0.0 0.5 0.7 High FINAL Annamarie noel Oncology - [place] [facility], [address] [place] [id number] 0 Phone: () - 04/12 CBC w/ auto diff IG # K/uL 0.0 0.03 0.06 High FINAL Annamarie noel Oncology - [place] [facility], [address] 200 [facility] [id number] 0 Phone: () - 04/12 CBC w/ auto diff LY % % 14.0 41.0 29.0 FINAL Annamarie noel Oncology [place] [facility], [address] [place] [address] 200 [facility] [id number] 0 Phone: () - 04/12 CBC w/ auto diff MO % % 6.0 15.0 7.8 FINAL Annamarie Peters a Oncology [place] [facility], [address] [place] [address] 200 [facility] [id number] 0 Phone: () - 04/12 CBC w/ auto diff EO % % 0.0 7.0 5.6 FINAL Annamarie noel Oncology [place] [facility], [address] [place] [address] 200 [facility] [id number] 0 Phone: () - 04/12 CBC w/ auto diff BA % % 0.0 2.0 0.8 FINAL Annamarie Peters a Oncology [place] [facility], [address] [place] [address] 200 [facility] [id number] 0 Phone: () - 04/12 CBC w/ auto diff LY # K/uL 0.4 3.6 2.6 FINAL Annamarie Peters a Oncology [place] [facility], [address] [place] [address] 200 [facility] [id number] 0 Phone: () - 04/12 CBC w/ auto diff MO # K/uL 0.2 1.3 0.7 FINAL Annamarie Mcginnisot a Oncology [place] [facility], [address] [place] [address] 200 [facility] [id number] 0 Phone: () - 04/12 CBC w/ auto diff EO # K/uL 0.0 0.6 0.5 FINAL Annamarie Mcginnisot a Oncology [place] [facility], [address] [place] [address] 200 [facility] [id number] 0 Phone: () - 04/12 CBC w/ auto diff BA # K/uL 0.0 0.2 0.1 FINAL Annamarie Mcginnisot a Oncology [place] [facility], [address] [place] [address] 200 [facility] [id number] 0 Phone: () - 04/12 CBC w/ auto diff NRBC % #/100W BC 0.0 0.2 0.0 FINAL Annamarie [facility]isot [facility], [address] [place] [address] 200 [place] [id number] 0 Phone: () - 04/12 CBC w/ auto diff RBC M/uL 3.9 5.1 3.37 Low FINAL Annamarie Mcginnisot a [facility], [address] [place] [address] 200 [place] [id number] 0 Phone: () - 04/12 CBC w/ auto diff HCT % 35.0 48.0 35.7 FINAL Annamarie Mcginnisot bert Oncology - [facility], [address] [place] [address] 200 [place] [phone] 0 Phone: () - 04/12 CBC w/ auto diff MCV fL 80.0 104.0 105.9 High FINAL Annamarie Mcginnisot a Oncology - [facility], [address] [place] [address] 200 [facility] [place] [id number] 0 Phone: () - 04/12 CMP Sodiu [...] total mg/dL 0.2 1.2 0.4 FINAL Annamarie Simthg ast 04/12 CMP Alkal ine phosp hatas e IU/L 50.0 136.0 63 FINAL Annamarie Bailonderg ast 04/12 CMP ALT/S GPT IU/L 8.0 45.0 16 FINAL Annamarie Bailonderg ast 04/12 CMP AST/S GOT IU/L 2.0 40.0 30 Test Performed by:[facility] [employer] [address] [facility], [place] [address]Socc e [phone] FINAL Annamarie Zamorano ast 04/12 [facility] other lab See arrow point attacher d 04/12 [facility] other lab See arrow point attacher d 05/10 CBC w/ auto diff BA % % 0.0 2.0 0.5 FINAL Tamanna noel Oncology - [facility], [address] [place] [id number] 0 Phone: () - 05/10 CBC w/ auto diff LY # K/uL 0.4 3.6 2.3 FINAL Tamanna noel Oncology - [facility], [address] [place] [id number] 0 Phone: () - 05/10 CBC w/ auto diff MO # K/uL 0.2 1.3 0.8 FINAL Tamanna noel Oncology - [facility], [address] 200 [place] [id number] 0 Phone: () - 05/10 CBC w/ auto diff EO # K/uL 0.0 0.6 0.5 FINAL Tamanna noel Oncology - [facility], [address] [place] [address] 200 [place] [id number] 0 Phone: () - 05/10 CBC w/ auto diff BA # K/uL 0.0 0.2 0.1 FINAL Tamanna noel Oncology - [facility], [address] [place] [address] 200 [place] [id number] 0 Phone: () - 05/10 CBC w/ auto diff NRBC % #/100W BC 0.0 0.2 0.0 FINAL Tamanna noel Oncology - [facility], [address] [place] [address] 200 [place] [id number] 0 Phone: () - 05/10 CBC w/ auto diff RBC M/uL 3.9 5.1 3.61 Low FINAL Tamanna noel Oncology - [facility], [address] [place] [address] 200 [place] [id number] 0 Phone: () - 05/10 CBC w/ auto diff HCT % 35.0 48.0 36.9 FINAL Tamanna noel Oncology - [facility], [address] [place] [address] 200 [place] [id number] 0 Phone: () - 05/10 CBC w/ auto diff MCV fL 80.0 104.0 102.2 FINAL Tamanna noel Oncology - [facility], [address] [place] [address] 200 [place] [id number] 0 Phone: () - 05/10 CBC w/ auto diff MCH pg 26.0 35.0 35.7 High FINAL Tamanna noel Oncology - [facility], [address] [place] [address] 200 [place] [id number] 0 Phone: () - 05/10 CBC w/ auto diff MCHC g/dL 30.0 35.0 35.0 FINAL Tamanna noel Oncology - [place], [address] [place] [address] [address] [place] [id number] 0 Phone: () - 05/10 CBC w/ auto diff MPV fL 9.5 13.4 9.2 Low FINAL Tamanna noel Oncology - [place], [address] [place] [address] [address] [place] [id number] 0 Phone: () - 05/10 CBC w/ auto diff RDW % 11.4 16.1 12.50 FINAL Tamanna noel Oncology - [place], [address] [place] [id number] 0 Phone: () - 05/10 CBC w/ auto diff WBC K/uL 3.0 8.9 10.3 High FINAL Tamanna noel Oncology - [place], [address] [place] [id number] 0 Phone: () - 05/10 CBC w/ auto diff HGB g/dL 11.3 15.2 12.9 FINAL Tamanna noel Oncology - [place], [address] [place] [id number] 0 Phone: () - 05/10 CBC w/ auto diff PLT K/uL 113.0 364.0 172 FINAL Tamanna noel Oncology - [place], [address] [place] [id number] 0 Phone: () - 05/10 CBC w/ auto diff Avtar # (ANC) K/uL 1.6 6.6 6.6 FINAL Tamanna noel Oncology - [place], [address] [place] [address] [address] [place] [id number] 0 Phone: () - 05/10 CBC w/ auto diff Avtar % % 43.0 74.0 64.3 FINAL Tamanna noel Oncology - [place], [address] [place] [id number] 0 Phone: () - 05/10 CBC w/ auto diff IG % % 0.0 0.5 0.7 High FINAL Tamanna noel Oncology - [place], [address] [place] [address] 200 [facility] [place] [id number] 0 Phone: () - 05/10 CBC w/ auto diff IG # K/uL 0.0 0.03 0.07 High FINAL Tamanna noel [facility], [address] [place] [id number] 0 Phone: () - 05/10 CBC w/ auto diff LY % % 14.0 41.0 22.7 FINAL Tamanna noel [facility], [address] [place] [address] 200 [facility] [place] [id number] 0 Phone: () - 05/10 CBC w/ auto diff MO % % 6.0 15.0 7.4 FINAL Tamanna noel [facility], [address] [place] [address] 200 [facility] [place] [id number] 0 Phone: () - 05/10 CBC w/ auto diff EO % % 0.0 7.0 4.4 FINAL Tamanna noel [facility], [address] [place] [address] 200 [facility] [place] [id number] 0 Phone: () - 05/10 TSH panel TSH uIU/ml 0.32 5.0 1.90 Test performed at [facility] on a [employer] 2000 Immun[employer] ay Analyzer that uses an immunoenz ymometric sandwich assay for analysis. Patient testing should not be performed using multiple methodolo gies due to analytica l variation seen between test methodolo gies. FINAL Tamanna noel [address] [id number] 0 Phone: () - 05/10 CA 125 panel CA 125 UNITS/ ML 0.0 34.0 9.80 Test performed at [facility] on a [employer] 2000 Immunoass ay Analyzer that uses an immunoenz ymometric sandwich assay for analysis. Patient testing should not be performed using multiple methodolo gies due to analytica l variation seen between test methodolo gies. FINAL Tamanna noel [address] [id number] 0 Phone: () - 05/10 CMP Sodiu [...] GOT IU/L 2.0 40.0 33 Test Performed by:[facility] [address] - [facility] [place] [id number] e : FINAL Tamanna Rolon 05/10 [facility] other lab See arrow point attacher d 05/10 Mis other lab See arrow point attacher d 05/25 Mis other lab See arrow point attacher d 06/07 CMP Sodiu m mmol/L 135.0 [...] mg/dL 0.57 1.11 1.12 High FINAL [facility] CMP BUN/C reati nine [...] IU/L 2.0 40.0 44 High Test Performed by:[facility] [address], [address] - [facility], [place], [place] [address]Wcsa e [phone] FINAL Annamarie Zamorano ast 06/07 CA 125 panel CA 125 UNITS/ ML 0.0 34.0 9.80 Test performed at [facility] on a zhouwu Immunoass ay Analyzer that uses an immunoenz ymometric sandwich assay for analysis. Patient testing should not be performed using multiple methodolo gies due to analytica l variation seen between test methodolo gies. FINAL Annamarie rivero [facility] [address] [id number] 0 Phone: () - 06/07 TSH panel TSH uIU/ml 0.32 5.0 3.43 Test performed at [facility] on a zhouwu Immunoass ay Analyzer that uses an immunoenz ymometric sandwich assay for analysis. Patient testing should not be performed using multiple methodolo gies due to analytica l variation seen between test methodolo gies. FINAL Annamarie rivero [facility] - [address] [place] [address] [id number] 0 Phone: () - 06/07 CBC w/ auto diff WBC K/uL 3.0 8.9 9.5 High FINAL Annamarie Zamorano ast [place] [facility] - [facility], [address] [facility] [place] [id number] 0 Phone: () - 06/07 CBC w/ auto diff HGB g/dL 11.3 15.2 12.2 FINAL Annamarie Mcginnisot a Oncology - [place], [address] [place] [address] [address] [place] [id number] 0 Phone: () - 06/07 CBC w/ auto diff PLT K/uL 113.0 364.0 166 FINAL Annamarie Mcginnisot a Oncology - [place], [address] [place] [address] [address] [place] [id number] 0 Phone: () - 06/07 CBC w/ auto diff Avtar # (ANC) K/uL 1.6 6.6 5.8 FINAL Annamarie Mcginnisot a Oncology - [place], [address] [place] [address] [address] [place] [id number] 0 Phone: () - 06/07 CBC w/ auto diff Avtar % % 43.0 74.0 60.6 FINAL Annamarie Mcginnisot a Oncology - [place], [address] [place] [address] [address] [place] [id number] 0 Phone: () - 06/07 CBC w/ auto diff IG % % 0.0 0.5 0.7 High FINAL Annamarie Mcginnisot a Oncology - [place], [address] [place] [address] [address] [place] [id number] 0 Phone: () - 06/07 CBC w/ auto diff IG # K/uL 0.0 0.03 0.07 High FINAL Annamarie rivero [place] [facility] - [place], [address] [place] [address] [address] [place] [id number] 0 Phone: () - 06/07 CBC w/ auto diff LY % % 14.0 41.0 25.2 FINAL Annamarie rivero [place] [facility] - [place], [address] [place] [address] [address] [place] [id number] 0 Phone: () - 06/07 CBC w/ auto diff MO % % 6.0 15.0 7.7 FINAL Annamarie rivero [place] [facility] - [place], [address] [place] [address] [address] [place] [id number] 0 Phone: () - 06/07 CBC w/ auto diff EO % % 0.0 7.0 5.1 FINAL Annamarie Mcginnisot a Oncology - [place], [address] [place] [address] [address] [place] [id number] 0 Phone: () - 06/07 CBC w/ auto diff BA % % 0.0 2.0 0.7 FINAL Annamarie Mcginnisot a Oncology - [place], [address] [place] [address] [address] [place] [id number] 0 Phone: () - 06/07 CBC w/ auto diff LY # K/uL 0.4 3.6 2.4 FINAL Annamarie Mcginnisot a Oncology - [facility], [address] [place] [address] [address] [place] [id number] 0 Phone: () - 06/07 CBC w/ auto diff MO # K/uL 0.2 1.3 0.7 FINAL Annamarie Mcginnisot a Oncology - [facility], [address] [place] [address] [address] [place] [id number] 0 Phone: () - 06/07 CBC w/ auto diff EO # K/uL 0.0 0.6 0.5 FINAL Annamarie Mcginnisot a Oncology - [facility], [address] [place] [address] [address] [place] [id number] 0 Phone: () - 06/07 CBC w/ auto diff BA # K/uL 0.0 0.2 0.1 FINAL Annamarie Mcginnisot a Oncology - [facility], [address] [place] [address] [address] [place] [id number] 0 Phone: () - 06/07 CBC w/ auto diff NRBC % #/100W BC 0.0 0.2 0.0 FINAL Annamarie Mcginnisot a Oncology - [facility], [address] [place] [address] [address] [place] [id number] 0 Phone: () - 06/07 CBC w/ auto diff RBC M/uL 3.9 5.1 3.46 Low FINAL Annamarie Mcginnisot a Oncology - [facility], [address] [place] [address] [address] [place] [id number] 0 Phone: () - 06/07 CBC w/ auto diff HCT % 35.0 48.0 35.6 FINAL Annamarie noel Oncology - [place], [address] [place] [address] [address] [place] [id number] 0 Phone: () - 06/07 CBC w/ auto diff MCV fL 80.0 104.0 102.9 FINAL Annamarie noel Oncology - [place], [address] [place] [address] [address] [place] [id number] 0 Phone: () - 06/07 CBC w/ auto diff MCH pg 26.0 35.0 35.3 High FINAL Annamarie noel Oncology - [place], [address] [place] [address] [address] [place] [id number] 0 Phone: () - 06/07 CBC w/ auto diff MCHC g/dL 30.0 35.0 34.3 FINAL Annamarie noel Oncology - [place], [address] [place] [address] [address] [place] [id number] 0 Phone: () - 06/07 CBC w/ auto diff MPV fL 9.5 13.4 9.4 Low FINAL Annamarie noel Oncology - [place], [address] [place] [address] [address] [place] [id number] 0 Phone: () - 06/07 CBC w/ auto diff RDW % 11.4 16.1 12.50 FINAL Annamarie noel Oncology - [place], [address] [place] [address] [address] [place] [id number] 0 Phone: () - 06/07 [facility] other lab See arrow point attacher d 07/05 CBC w/ auto diff BA # K/uL 0.0 0.2 0.1 FINAL Tamanna noel Oncology - [place], [address] [place] [address] [address] [place] [id number] 0 Phone: () - 07/05 CBC w/ auto diff NRBC % #/100W BC 0.0 0.2 0.0 FINAL Tamanna noel Oncology - [place], [address] [place] [address] [address] [place] [id number] 0 Phone: () - 07/05 CBC w/ auto diff RBC M/uL 3.9 5.1 3.54 Low FINAL Tamanna Gonzales [place] [facility] - [place], [address] [place] [id number] 0 Phone: () - 07/05 CBC w/ auto diff HCT % 35.0 48.0 37.0 FINAL Tamanna noel Oncology - [place], [address] [place] [address] [address] [place] [id number] 0 Phone: () - 07/05 CBC w/ auto diff MCV fL 80.0 104.0 104.5 High FINAL Tamanna noel Oncology - [place], [address] [place] [id number] 0 Phone: () - 07/05 CBC w/ auto diff MCH pg 26.0 35.0 35.0 FINAL Tamanna noel Oncology - [place], [address] [place] [id number] 0 Phone: () - 07/05 CBC w/ auto diff MCHC g/dL 30.0 35.0 33.5 FINAL Tamanna noel Oncology - [place], [address] [place] [id number] 0 Phone: () - 07/05 CBC w/ auto diff MPV fL 9.5 13.4 9.5 FINAL Tamanna noel Oncology - [place], [address] [place] [id number] 0 Phone: () - 07/05 CBC w/ auto diff RDW % 11.4 16.1 13.10 FINAL Tamanna noel Oncology - [place], [address] [place] [id number] 0 Phone: () - 07/05 CBC w/ auto diff WBC K/uL 3.0 8.9 10.4 High FINAL Tamanna noel Oncology - [place], [address] [place] [address] [address] [place] [id number] 0 Phone: () - 07/05 CBC w/ auto diff HGB g/dL 11.3 15.2 12.4 FINAL Tamanna noel Oncology - [place], [address] [place] [address] [address] [place] [id number] 0 Phone: () - 07/05 CBC w/ auto diff PLT K/uL 113.0 364.0 177 FINAL Tamanna noel Oncology - [place], [address] [place] [address] 200 [facility] [place] [id number] 0 Phone: () - 07/05 CBC w/ auto diff Avtar # (ANC) K/uL 1.6 6.6 6.3 FINAL Tamanna noel Oncology - [place], [address] 200 [facility] [place] [id number] 0 Phone: () - 07/05 CBC w/ auto diff Avtar % % 43.0 74.0 61.2 FINAL Tamanna noel Oncology - [place], [address] [place] [address] 200 [facility] [place] [id number] 0 Phone: () - 07/05 CBC w/ auto diff IG % % 0.0 0.5 0.7 High FINAL Tamanna noel Oncology - [place], [address] [place] [address] 200 [facility] [place] [id number] 0 Phone: () - 07/05 CBC w/ auto diff IG # K/uL 0.0 0.03 0.07 High FINAL Tamanna noel Oncology - [place], [address] [place] [address] 200 [facility] [place] [id number] 0 Phone: () - 07/05 CBC w/ auto diff LY % % 14.0 41.0 24.2 FINAL Tamanna noel Oncology - [place], [address] [place] [address] 200 [facility] [place] [id number] 0 Phone: () - 07/05 CBC w/ auto diff MO % % 6.0 15.0 8.6 FINAL Tamanna noel Oncology - [place], [address] [place] [address] 200 [facility] [place] [id number] 0 Phone: () - 07/05 CBC w/ auto diff EO % % 0.0 7.0 4.5 FINAL Tamanna noel Oncology - [place], [address] [place] [address] 200 [facility] [place] [id number] 0 Phone: () - 07/05 CBC w/ auto diff BA % % 0.0 2.0 0.8 FINAL Tamanna noel Oncology - [facility], [address] [place] [address] [address] [facility] [id number] 0 Phone: () - 07/05 CBC w/ auto diff LY # K/uL 0.4 3.6 2.5 FINAL Tamanna noel Oncology - [facility], [address] [place] [address] 200 [facility] [id number] 0 Phone: () - 07/05 CBC w/ auto diff MO # K/uL 0.2 1.3 0.9 FINAL Tamanna noel Oncology - [facility], [address] [place] [address] [address] [facility] [id number] 0 Phone: () - 07/05 CBC w/ auto diff EO # K/uL 0.0 0.6 0.5 FINAL Tamanna noel [facility], [address] [place] [address] 200 [facility] [id number] 0 Phone: () - 07/05 CA 125 panel CA 125 UNITS/ ML 0.0 34.0 9.50 Test performed at [facility] on a [employer] 2000 Immunoass ay Analyzer that uses an immunoenz ymometric sandwich assay for analysis. Patient testing should not be performed using multiple methodolo gies due to analytica l variation seen between test methodolo gies. FINAL Tamanna noel [address] [id number] 0 Phone: () - 07/05 TSH panel TSH uIU/ml 0.32 5.0 2.46 Test performed at [facility] on a [employer] 2000 Immunoass ay Analyzer that uses an immunoenz ymometric sandwich assay for analysis. Patient testing should not be performed using multiple methodolo gies due to analytica l variation seen between test methodolo gies. FINAL Tamanna noel [facility] [address] [id number] 0 Phone: () - 07/05 CMP Sodiu [...] ml/min /1.73m 2 44 Low FINAL Tamanna Rooln 07/05 CMP Album in g/dL 3.2 4.6 [...] Laborator [address] - [facility] [place], [place] [address]Jpxy e : FINAL Tamanna Rolon 07/05 [facility] other lab See arrow point attacher d 07/13 [facility] other lab See arrow point attacher d 08/02 CA 125 panel CA 125 UNITS/ ML 0.0 34.0 8.50 Test performed at [facility] on a [employer] 2000 Immunoass ay Analyzer that uses an immunoenz ymometric sandwich assay for analysis. Patient testing should not be performed using multiple methodolo gies due to analytica l variation seen between test methodolo gies. FINAL Tamanna noel [address] [id number] 0 Phone: () - 08/02 TSH panel TSH uIU/ml 0.32 5.0 2.38 Test performed at [facility] on a [employer]os[employer] 2000 Immunoass ay Analyzer that uses an immunoenz ymometric sandwich assay for analysis. Patient testing should not be performed using multiple methodolo gies due to analytica l variation seen between test methodolo gies. FINAL Tamanna noel [facility], [address] [place] [address] [place] [address] [id number] 0 Phone: () - 08/02 CBC w/ auto diff WBC K/uL 3.0 8.9 9.3 High FINAL Tamanna noel [facility], [address] [place] [address] [address] [place] [id number] 0 Phone: () - 08/02 CBC w/ auto diff HGB g/dL 11.3 15.2 12.5 FINAL Tamanna noel [facility], [address] [place] [id number] 0 Phone: () - 08/02 CBC w/ auto diff PLT K/uL 113.0 364.0 165 FINAL Tamanna noel [facility], [address] [place] [id number] 0 Phone: () - 08/02 CBC w/ auto diff Avtar # (ANC) K/uL 1.6 6.6 5.7 FINAL Tamanna noel [facility] - [place], [address] 200 [place] [id number] 0 Phone: () - 08/02 CBC w/ auto diff Avtar % % 43.0 74.0 61.0 FINAL Tamanna noel Oncology - [place], [address] 200 [place] [id number] 0 Phone: () - 08/02 CBC w/ auto diff IG % % 0.0 0.5 0.6 High FINAL Tamanna noel Oncology - [place], [address] [place] [id number] 0 Phone: () - 08/02 CBC w/ auto diff IG # K/uL 0.0 0.03 0.06 High FINAL Tamanna noel Oncology - [place], [address] [place] [address] 200 [place] [id number] 0 Phone: () - 08/02 CBC w/ auto diff LY % % 14.0 41.0 24.1 FINAL Tamanna noel [facility] - [place], [address] [place] [address] 200 [place] [id number] 0 Phone: () - 08/02 CBC w/ auto diff MO % % 6.0 15.0 8.4 FINAL Tamanna noel Oncology - [place], [address] [place] [address] 200 [place] [id number] 0 Phone: () - 08/02 CBC w/ auto diff EO % % 0.0 7.0 5.1 FINAL Tamanna noel On[facility] - [place], [address] [place] [address] 200 [place] [id number] 0 Phone: () - 08/02 CBC w/ auto diff BA % % 0.0 2.0 0.8 FINAL Tamanna noel [facility] - [place], [address] [place] [address] 200 [place] [id number] 0 Phone: () - 08/02 CBC w/ auto diff LY # K/uL 0.4 3.6 2.2 FINAL Tamanna noel [facility] - [place], [address] [place] [address] 200 [place] [id number] 0 Phone: () - 08/02 CBC w/ auto diff MO # K/uL 0.2 1.3 0.8 FINAL Tamanna noel Oncology - [facility], [address] [place] [address] 200 [place] [id number] 0 Phone: () - 08/02 CBC w/ auto diff EO # K/uL 0.0 0.6 0.5 FINAL Tamanna noel Oncology - [facility], [address] [place] [address] 200 [place] [id number] 0 Phone: () - 08/02 CBC w/ auto diff BA # K/uL 0.0 0.2 0.1 FINAL Tamanna noel Oncology - [facility], [address] [place] [address] 200 [place] [id number] 0 Phone: () - 08/02 CBC w/ auto diff NRBC % #/100W BC 0.0 0.2 0.0 FINAL Tamanna noel Oncology - [facility], [address] [place] [address] 200 [place] [id number] 0 Phone: () - 08/02 CBC w/ auto diff RBC M/uL 3.9 5.1 3.55 Low FINAL Tamanna noel Oncology - [facility], [address] [place] [address] 200 [place] [id number] 0 Phone: () - 08/02 CBC w/ auto diff HCT % 35.0 48.0 37.3 FINAL Tamanna noel Oncology - [facility], [address] [place] [address] 200 [place] [id number] 0 Phone: () - 08/02 CBC w/ auto diff MCV fL 80.0 104.0 105.1 High FINAL Tamanna noel Oncology - [facility], [address] [place] [address] 200 [place] [id number] 0 Phone: () - 08/02 CBC w/ auto diff MCH pg 26.0 35.0 35.2 High FINAL Tamanna noel Oncology - [facility], [address] [place] [address] 200 [place] [id number] 0 Phone: () - 08/02 CBC w/ auto diff MCHC g/dL 30.0 35.0 33.5 FINAL Tamanna noel [facility] - [place], [address] [place] [id number] 0 Phone: () - 08/02 CBC w/ auto diff MPV fL 9.5 13.4 9.6 FINAL Tamanna noel [facility] - [place], [address] [place] [id number] 0 Phone: () - 08/02 CBC w/ auto diff RDW % 11.4 16.1 13.00 FINAL Tamanna noel [facility] - [place], [address] [place] [id number] 0 Phone: () - 08/02 CMP Sodiu [...] GOT IU/L 2.0 40.0 32 Test Performed by:[facility] [address] [facility], [address] - [facility], [place], [place] [address]Mufj e : FINAL Tamanna Rolon 08/02 [facility] other lab See arrow point attacher d 08/13 [facility] other lab See arrow point attacher d 08/30 Magne sium, mg/dL mg/dL 1.5 2.3 1.5 FINAL Tamanna noel [address] [place] [address] [id number] Phone: () - 08/30 Folat e, serum ng/mL 3.0 16.0 Folate greater than 20 FINAL Tamanna noel [address] [place] [address] [id number] 0 Phone: () - 08/30 Retic ulocy te, absol carlos M/uL 0.02 0.08 0.08 FINAL Tamanna noel [facility], [address] [place] [address] [address] [facility] [place] [id number] 0 Phone: () - 08/30 Retic ulocy te count % 0.4 1.6 2.19 High FINAL Tamanna noel [facility], [address] [place] [address] 200 [place] [id number] 0 Phone: () - 08/30 Immat ure retic ulocy te fract ion, % % 0.0 16.5 20.20 High FINAL Tamanna noel [facility] - [place], [address] [place] [address] 200 [place] [id number] 0 Phone: () - 08/30 Retic ulocy te cellu lar hemog lobin pg 28.0 37.0 38.2 High FINAL Tamanna noel [facility] - [place], [address] [place] [address] 200 [place] [id number] 0 Phone: () - 08/30 CBC w/ auto diff WBC K/uL 3.0 8.9 8.8 FINAL Tamanna noel [facility] - [place], [address] [place] [address] 200 [place] [id number] 0 Phone: () - 08/30 CBC w/ auto diff HGB g/dL 11.3 15.2 12.3 FINAL Tamanna noel [facility] - [place], [address] [place] [address] 200 [place] [id number] 0 Phone: () - 08/30 CBC w/ auto diff PLT K/uL 113.0 364.0 161 FINAL Tamanna noel [facility] - [place] [facility], [address] [place] [address] 200 [place] [id number] 0 Phone: () - 08/30 CBC w/ auto diff Avtar # (ANC) K/uL 1.6 6.6 5.6 FINAL Tamanna noel [facility] - [place], [address] [place] [address] [address] [place] [id number] 0 Phone: () - 08/30 CBC w/ auto diff Avtar % % 43.0 74.0 62.9 FINAL [facility] [place], [address] [place] [address] [address] [place] [id number] 0 Phone: () - 08/30 CBC w/ auto diff IG % % 0.0 0.5 0.5 FINAL [facility] [place], [address] [place] [address] [address] [place] [id number] 0 Phone: () - 08/30 CBC w/ auto diff IG # K/uL 0.0 0.03 0.04 High FINAL [facility] - [place], [address] [place] [id number] 0 Phone: () - 08/30 CBC w/ auto diff LY % % 14.0 41.0 23.7 FINAL [facility] - [place], [address] [place] [id number] 0 Phone: () - 08/30 CBC w/ auto diff MO % % 6.0 15.0 7.2 FINAL [facility] - [place], [address] [place] [id number] 0 Phone: () - 08/30 CBC w/ auto diff EO % % 0.0 7.0 5.1 FINAL [facility] - [place], [address] [place] [id number] 0 Phone: () - 08/30 CBC w/ auto diff BA % % 0.0 2.0 0.6 FINAL [facility] - [place], [address] [place] [id number] 0 Phone: () - 08/30 CBC w/ auto diff LY # K/uL 0.4 3.6 2.1 FINAL [facility] - [place], [address] [place] [id number] 0 Phone: () - 08/30 CBC w/ auto diff MO # K/uL 0.2 1.3 0.6 FINAL [facility] - [place], [address] [place] [id number] 0 Phone: () - 08/30 CBC w/ auto diff EO # K/uL 0.0 0.6 0.5 FINAL [facility] - [place], [address] [place] [id number] 0 Phone: () - 08/30 CBC w/ auto diff BA # K/uL 0.0 0.2 0.1 FINAL [facility] - [place], [address] [place] [address] [address] [place] [id number] 0 Phone: () - 08/30 CBC w/ auto diff NRBC % #/100W BC 0.0 0.2 0.0 FINAL [facility] - [place], [address] [place] [address] [address] [place] [id number] 0 Phone: () - 08/30 CBC w/ auto diff RBC M/uL 3.9 5.1 3.53 Low FINAL [facility] [place], [address] [place] [address] [address] [place] [id number] 0 Phone: () - 08/30 CBC w/ auto diff HCT % 35.0 48.0 37.1 FINAL [facility] - [place], [address] [place] [id number] 0 Phone: () - 08/30 CBC w/ auto diff MCV fL 80.0 104.0 105.1 High FINAL [facility] - [place], [address] [place] [address] [address] [place] [id number] 0 Phone: () - 08/30 CBC w/ auto diff MCH pg 26.0 35.0 34.8 FINAL [facility] no[facility] - [place], [address] [place] [address] [address] [place] [id number] 0 Phone: () - 08/30 CBC w/ auto diff MCHC g/dL 30.0 35.0 33.2 FINAL [facility] - [place], [address] [place] [address] [address] [place] [id number] 0 Phone: () - 08/30 CBC w/ auto diff MPV fL 9.5 13.4 9.7 FINAL [facility] - [place], [address] [place] [address] [address] [place] [id number] 0 Phone: () - 08/30 CBC w/ auto diff RDW % 11.4 16.1 12.40 FINAL [facility] no[facility] - [place], [address] [place] [address] [address] [facility] [id number] 0 Phone: () - 08/30 TSH panel TSH uIU/ml 0.32 5.0 2.25 Test performed at [facility] on a Book of Odds 2000 Immunoass ay Analyzer that uses an immunoenz ymometric sandwich assay for analysis. Patient testing should not be performed using multiple methodolo gies due to analytica l variation seen between test methodolo gies. FINAL [facility] Peters [facility] - [address] [id number] 0 Phone: () - 08/30 CA 125 panel CA 125 UNITS/ ML 0.0 34.0 12.90 Test performed at [facility] on a TosACE 2000 Immunoass ay Analyzer that uses an immunoenz ymometric sandwich assay for analysis. Patient testing should not be performed using multiple methodolo gies due to analytica l variation seen between test methodolo gies. FINAL [facility] noel [facility] [address] [id number] 0 Phone: () - 08/30 CMP Sodiu m mmol/L 135.0 145.0 135 FINAL [facility] 08/30 CMP Potas sium mmol/L 3.5 5.0 4.6 FINAL [facility] 08/30 CMP Chlor sathish mmol/L 98.0 110.0 96 Low FINAL [facility] 08/30 CMP CO2 mmol/L 21.0 31.0 32 High FINAL [facility] 08/30 CMP Anion gap, mmol/ L 5.0 18.0 7.0% FINAL [facility] 08/30 CMP Gluco se mg/dL 65.0 100.0 92 FINAL [facility] 08/30 CMP Calci um mg/dL 8.5 10.5 9.1 FINAL [facility] 08/30 CMP BUN mg/dL 8.0 25.0 10 FINAL [facility] 08/30 CMP Creat inine mg/dL 0.57 1.11 0.95 FINAL [facility] 08/30 CMP BUN/C reati nine ratio 10.0 [...] GOT IU/L 2.0 40.0 30 Test Performed by:[facility] [address] - [facility], [place], [place] [address]Wwvl e : FINAL Tamanna Rolon 08/30 Rashida stero l mg/dL 100.0 199.0 146 FINAL Tamanna Rolon 08/30 Chemi strie s Fasti ng statu s RANDOM Test Performed by:[facility] [address] - [facility], [place], [place] [address]Qero e [phone] FINAL Tamanna Rolon 08/30 Phosp horus mg/dL 2.3 4.7 2.6 Test Performed by:[facility] [address] - [facility], [place], [place] [address]Vgqr e : FINAL Tamanna Rolon 08/30 LDH U/L 120.0 246.0 184 FINAL [facility]anna Mcginnis a [facility] [address] [id number] 0 Phone: () - 09/27 Magne sium, mg/dL mg/dL 1.5 2.3 1.4 Low FINAL Tamanna noel [address] [id number] 0 Phone: () - 09/27 CA 125 UNITS/ ML 0.0 34.0 10.40 Test performed at [facility] on a zhouwu Immunoass ay Analyzer that uses an immunoenz ymometric sandwich assay for analysis. Patient testing should not be performed using multiple methodolo gies due to analytica l variation seen between test methodolo gies. FINAL Tamanna noel [address] [id number] 0 Phone: () - 09/27 Retic ulocy te, absol carlos M/uL 0.02 0.08 0.09 High FINAL Tamanna noel [facility], [address] [place] [address] [address] [place] [id number] 0 Phone: () - 09/27 Retic ulocy te count % 0.4 1.6 2.55 High FINAL Tamanna noel [facility] - [facility], [address] [place] [address] [address] [place] [id number] 0 Phone: () - 09/27 Immat ure retic ulocy te fract ion, % % 0.0 16.5 26.30 High FINAL Tamanna noel [facility] - [facility], [address] [place] [address] [address] [place] [id number] 0 Phone: () - 09/27 Retic ulocy te cellu lar hemog lobin pg 28.0 37.0 38.2 High FINAL Tamanna noel [facility], [address] [place] [address] [address] [place] [id number] 0 Phone: () - 09/27 CBC w/ auto diff WBC K/uL 3.0 8.9 10.3 High FINAL Tamanna noel [facility], [address] [place] [address] [address] [place] [id number] 0 Phone: () - 09/27 CBC w/ auto diff HGB g/dL 11.3 15.2 12.9 FINAL [facility] - [place], [address] 200 [facility] [place] [id number] 0 Phone: () - 09/27 CBC w/ auto diff PLT K/uL 113.0 364.0 190 FINAL [facility] [place], [address] [place] [address] 200 [facility] [place] [id number] 0 Phone: () - 09/27 CBC w/ auto diff Avtar # (ANC) K/uL 1.6 6.6 6.7 High FINAL [facility] no[facility] - [place], [address] [place] [address] 200 [facility] [place] [id number] 0 Phone: () - 09/27 CBC w/ auto diff Avtar % % 43.0 74.0 64.3 FINAL [facility] no[facility] - [place], [address] [place] [address] 200 [facility] [place] [id number] 0 Phone: () - 09/27 CBC w/ auto diff IG % % 0.0 0.5 0.7 High FINAL [facility] no[facility] - [place], [address] [place] [address] 200 [facility] [place] [id number] 0 Phone: () - 09/27 CBC w/ auto diff IG # K/uL 0.0 0.03 0.07 High FINAL [facility] no[facility] - [place], [address] [place] [address] 200 [facility] [place] [id number] 0 Phone: () - 09/27 CBC w/ auto diff LY % % 14.0 41.0 23.6 FINAL [facility] [place], [address] [place] [address] 200 [facility] [place] [id number] 0 Phone: () - 09/27 CBC w/ auto diff MO % % 6.0 15.0 6.8 FINAL Tam[facility] noel [facility] - [place], [address] [place] [address] 200 [facility] [place] [id number] 0 Phone: () - 09/27 CBC w/ auto diff EO % % 0.0 7.0 4.1 FINAL [facility] - [place], [address] [place] [id number] 0 Phone: () - 09/27 CBC w/ auto diff BA % % 0.0 2.0 0.5 FINAL [facility] no[facility] - [place], [address] [place] [id number] 0 Phone: () - 09/27 CBC w/ auto diff LY # K/uL 0.4 3.6 2.4 FINAL [facility] - [place], [address] [place] [address] [address] [place] [id number] 0 Phone: () - 09/27 CBC w/ auto diff MO # K/uL 0.2 1.3 0.7 FINAL [facility] no[facility] - [place], [address] [place] [address] [address] [place] [id number] 0 Phone: () - 09/27 CBC w/ auto diff EO # K/uL 0.0 0.6 0.4 FINAL [facility] no[facility] - [place], [address] [place] [address] [address] [place] [id number] 0 Phone: () 09/27 CBC w/ auto diff BA # K/uL 0.0 0.2 0.1 FINAL [facility] no[facility] - [place], [address] [place] [address] [address] [place] [id number] 0 Phone: () - 09/27 CBC w/ auto diff NRBC % #/100W BC 0.0 0.2 0.0 FINAL [facility] no[facility] - [place], [address] [place] [address] [address] [place] [id number] 0 Phone: () - 09/27 CBC w/ auto diff RBC M/uL 3.9 5.1 3.70 Low FINAL [facility] no[facility] - [place], [address] [place] [address] [address] [place] [id number] 0 Phone: () - 09/27 CBC w/ auto diff HCT % 35.0 48.0 38.7 FINAL [facility], [address] [place] [address] [address] [place] [id number] 0 Phone: () - 09/27 CBC w/ auto diff MCV fL 80.0 104.0 104.6 High FINAL [facility], [address] [place] [address] [address] [place] [id number] 0 Phone: () - 09/27 CBC w/ auto diff MCH pg 26.0 35.0 34.9 FINAL [facility], [address] [place] [address] [address] [place] [id number] 0 Phone: () - 09/27 CBC w/ auto diff MCHC g/dL 30.0 35.0 33.3 FINAL Tamanna noel [facility] - [facility], [address] [place] [address] [address] [place] [id number] 0 Phone: () - 09/27 CBC w/ auto diff MPV fL 9.5 13.4 9.1 Low FINAL Tamanna noel [facility] - [facility], [address] [place] [address] [address] [place] [id number] 0 Phone: () - 09/27 CBC w/ auto diff RDW % 11.4 16.1 12.40 FINAL Tamanna noel [facility] - [facility], [address] [place] [id number] 0 Phone: () - 09/27 TSH uIU/ml 0.32 5.0 2.56 Test performed at [facility] on a Book of Odds 2000 Immunoass ay Analyzer that uses an immunoenz ymometric sandwich assay for analysis. Patient testing should not be performed using multiple hallie soto due to analytica l variation seen between test hallie soto. FINAL Tamanna noel [facility] - [place], [address] [facility] [address] [facility] [id number] 0 Phone: () - 09/27 Phosp horus mg/dL 2.3 4.7 2.8 Test Performed by:[facility] [address] - [facility] [place] [address]Gakk e : FINAL Tamanna Rolon 09/27 Rashida stero l mg/dL 100.0 199.0 148 FINAL Tamannanithin Rolon 09/27 Chemi strie s Fasti ng statu s RANDOM Test Performed by:[facility] [employer] [facility] [address] - [facility] [place], [place] [address]Vgno e : FINAL Tamanna Rolon 09/27 CMP Sodiu m mmol/L 135.0 145.0 131 Low FINAL Tamannanithin Rolon 09/27 CMP Potas sium mmol/L 3.5 5.0 4.6 FINAL Tamannanithin Rolon 09/27 CMP Chlor sathish mmol/L 98.0 [...] GOT IU/L 2.0 40.0 25 Test Performed by:[facility] [address] - [facility], [place], [place] [address]Krlb e [phone] FINAL Tamanna Rolon 09/27 LDH U/L 120.0 246.0 176 FINAL [facility] no[facility] [address] [id number] 0 Phone: () - 09/27 Folat e, serum ng/mL 3.0 16.0 17.4 High FINAL [facility] no[facility] [address] [id number] 0 Phone: () - 10/25 CA 125 panel CA 125 UNITS/ ML 0.0 34.0 6.90 Test performed at [facility] on a Book of Odds 2000 Immunoass ay Analyzer that uses an immunoenz ymometric sandwich assay for analysis. Patient testing should not be performed using multiple methoddanelle soto due to analytica l variation seen between test methoddanelle soto. FINAL [facility] no[facility] [address] [place] [address] [id number] 0 Phone: () - 10/25 Retic ulocy te, absol carlos M/uL 0.02 0.08 0.[address] [facility], [address] [facility] [id number] 0 Phone: () - 10/25 Retic ulocy te count % 0.4 1.6 2.29 High FINAL [facility], [address] [place] [id number] 0 Phone: () - 10/25 Immat ure retic ulocy te fract ion, % % 0.0 16.5 18.50 High FINAL [facility], [address] [place] [address] [address] [place] [id number] 0 Phone: () - 10/25 Retic ulocy te cellu lar hemog lobin pg 28.0 37.0 38.2 High FINAL [facility], [address] [place] [id number] 0 Phone: () - 10/25 TSH uIU/ml 0.32 5.0 2.28 Test performed at [facility] on a zhouwu Immunoass ay Analyzer that uses an immunoenz ymometric sandwich assay for analysis. Patient testing should not be performed using multiple methoddanelle soto due to analytica l variation seen between test methoddanelle soto. FINAL Tamanna noel Oncology [facility], [address] [facility] [address] [place] [id number] 0 Phone: () - 10/25 CBC w/ auto diff WBC K/uL 3.0 8.9 9.3 High FINAL Tamanna noel On[facility], [address] [place] [id number] 0 Phone: () - 10/25 CBC w/ auto diff HGB g/dL 11.3 15.2 12.9 FINAL [facility], [address] [place] [id number] 0 Phone: () - 10/25 CBC w/ auto diff PLT K/uL 113.0 364.0 162 FINAL Tamanna noel On[facility], [address] [place] [id number] 0 Phone: () - 10/25 CBC w/ auto diff Avtar # (ANC) K/uL 1.6 6.6 6.1 FINAL Tamnana noel [facility] - [place], [address] [place] [address] [address] [place] [id number] 0 Phone: () - 10/25 CBC w/ auto diff Avtar % % 43.0 74.0 64.9 FINAL Tamanna noel [facility] - [place], [address] [place] [address] [address] [place] [id number] 0 Phone: () - 10/25 CBC w/ auto diff IG % % 0.0 0.5 0.5 FINAL Tam[facility] noel [facility] - [place], [address] [place] [address] [address] [place] [id number] 0 Phone: () - 10/25 CBC w/ auto diff IG # K/uL 0.0 0.03 0.05 High FINAL Tamanna noel [facility] - [place], [address] [place] [address] [address] [place] [id number] 0 Phone: () - 10/25 CBC w/ auto diff LY % % 14.0 41.0 22.9 FINAL Tamanna noel [facility] - [place], [address] [place] [address] [address] [place] [id number] 0 Phone: () - 10/25 CBC w/ auto diff MO % % 6.0 15.0 7.1 FINAL Tam[facility] noel [facility] - [place], [address] [place] [address] [address] [place] [id number] 0 Phone: () - 10/25 CBC w/ auto diff EO % % 0.0 7.0 4.2 FINAL Tamanna noel [facility] - [place], [address] [place] [address] [address] [place] [id number] 0 Phone: () - 10/25 CBC w/ auto diff BA % % 0.0 2.0 0.4 FINAL Tamanna noel [facility] - [place], [address] [place] [address] [address] [place] [id number] 0 Phone: () - 10/25 CBC w/ auto diff LY # K/uL 0.4 3.6 2.1 FINAL Tamanna noel [facility] - [place], [address] [place] [id number] 0 Phone: () - 10/25 CBC w/ auto diff MO # K/uL 0.2 1.3 0.7 FINAL [facility] noel [facility] - [place], [address] [place] [id number] 0 Phone: () - 10/25 CBC w/ auto diff EO # K/uL 0.0 0.6 0.4 FINAL Tamanna noel [facility] - [place], [address] [place] [id number] 0 Phone: () - 10/25 CBC w/ auto diff BA # K/uL 0.0 0.2 0.0 FINAL Tamanna noel [facility] - [place], [address] [place] [id number] 0 Phone: () - 10/25 CBC w/ auto diff NRBC % #/100W BC 0.0 0.2 0.0 FINAL Tamanna noel [facility] - [place], [address] [place] [id number] 0 Phone: () - 10/25 CBC w/ auto diff RBC M/uL 3.9 5.1 3.70 Low FINAL Tamanna noel [facility] - [place], [address] [place] [address] [address] [place] [id number] 0 Phone: () - 10/25 CBC w/ auto diff HCT % 35.0 48.0 39.0 FINAL Tamanna noel [facility] - [place], [address] [place] [id number] 0 Phone: () - 10/25 CBC w/ auto diff MCV fL 80.0 104.0 105.4 High FINAL Tamanna noel [facility] - [place], [address] [place] [address] [address] [place] [id number] 0 Phone: () - 10/25 CBC w/ auto diff MCH pg 26.0 35.0 34.9 FINAL Tamanna noel [facility] - [place], [address] [place] [id number] 0 Phone: () - 10/25 CBC w/ auto diff MCHC g/dL 30.0 35.0 33.1 FINAL Tamanna noel [facility] - [place], [address] 200 [facility] [id number] 0 Phone: () - 10/25 CBC w/ auto diff MPV fL 9.5 13.4 9.8 FINAL Tamanna noel [facility] [place] [facility], [address] 200 [facility] [id number] 0 Phone: () - 10/25 CBC w/ auto diff RDW % 11.4 16.1 13.10 FINAL Tamanna noel [facility] [place] [facility], [address] 200 [facility] [id number] 0 Phone: () - 10/25 Magne sium, mg/dL mg/dL 1.5 2.3 1.9 FINAL Tamanna noel Oncology [facility], [address] [facility] 100 [facility] [id number] 0 Phone: () - 10/25 CMP Sodiu [...] reati nine ratio 10.0 20.0 20.0% FINAL [facility] 10/25 CMP GFR Afric an Briceeri can, estim ated ml/min /1.73m 2 56 Low FINAL Tamanna Gonzales 10/25 CMP GFR non-A frica n Ameri can, estim ated ml/min /1.73m 2 47 Low FINAL [facility] 10/25 CMP Album in g/dL 3.2 4.6 4.0 FINAL Tamanna Gonzales 10/25 CMP Total prote in g/dL 6.0 8.0 6.8 FINAL Tamanna Gonzales 10/25 CMP Globu samreen g/dL 2.0 3.7 2.8 FINAL Tamanna Gonzales 10/25 CMP A/G ratio 1.0 2.0 1.4% FINAL [facility] 10/25 CMP Bilir ubin, total mg/dL 0.2 1.2 0.6 FINAL Tamanna Gonzales 10/25 CMP Alkal ine phosp hatas e IU/L 50.0 136.0 74 FINAL [facility] 10/25 CMP ALT/S GPT IU/L 8.0 45.0 17 FINAL [facility] 10/25 CMP AST/S GOT IU/L 2.0 40.0 29 Test Performed by:[facility] [address] - [facility], [place], [place] [address]Vrge e : [facility] 10/25 Rashida stero l mg/dL 100.0 199.0 142 FINAL [facility] 10/25 Chemi strie s Fasti ng statu s RANDOM Test Performed by:[facility] [address] - [facility] [place], [place] [address]Dugb e : [facility] 10/25 Phosp horus mg/dL 2.3 4.7 3.3 Test Performed by:[facility] [address] - [facility], [place], [place] [address]Utzy e [phone] FINAL Tamanna Rolon 10/25 Folat e, serum ng/mL 3.0 16.0 Folate greater than 20 FINAL Tamanna noel Oncology [facility], [address] [place] [address] [id number] 0 Phone: () - 10/25 LDH U/L 120.0 246.0 185 FINAL Tamanna noel [address] [id number] 0 Phone: () - 11/22 CBC w/ auto diff LY # K/uL 0.4 3.6 1.8 FINAL Tamanna noel Oncology [place] [facility], [address] [place] [address] 200 [facility] [place] [id number] 0 Phone: () - 11/22 CBC w/ auto diff MO # K/uL 0.2 1.3 0.7 FINAL Tamanna noel On[facility] [place] [facility], [address] [place] [address] 200 [facility] [place] [id number] 0 Phone: () - 11/22 CBC w/ auto diff EO # K/uL 0.0 0.6 0.4 FINAL Tamanna noel [facility] [place] [facility], [address] [place] [address] 200 [place] [id number] 0 Phone: () - 11/22 CBC w/ auto diff BA # K/uL 0.0 0.2 0.1 FINAL Tamanna noel On[facility] [place] [facility], [address] [place] [address] 200 [facility] [place] [id number] 0 Phone: () - 11/22 CBC w/ auto diff NRBC % #/100W BC 0.0 0.2 0.0 FINAL Tamanna noel On[facility] [place] [facility], [address] [place] [address] 200 [place] [id number] 0 Phone: () - 11/22 CBC w/ auto diff RBC M/uL 3.9 5.1 4.15 FINAL Tamanna noel Oncology [place] [facility], [address] [place] [address] 200 [facility] [place] [id number] 0 Phone: () - 11/22 CBC w/ auto diff HCT % 35.0 48.0 42.3 FINAL Tamanna noel [facility] - [place], [address] [place] [address] [address] [place] [id number] 0 Phone: () - 11/22 CBC w/ auto diff MCV fL 80.0 104.0 101.9 FINAL Tamanna noel [facility] - [place], [address] [place] [address] [address] [place] [id number] 0 Phone: () - 11/22 CBC w/ auto diff MCH pg 26.0 35.0 33.5 FINAL Tamanna noel [facility] - [place], [address] [place] [address] [address] [place] [id number] 0 Phone: () - 11/22 CBC w/ auto diff MCHC g/dL 30.0 35.0 32.9 FINAL Tamanna noel [facility] - [place], [address] [place] [address] [address] [place] [id number] 0 Phone: () - 11/22 CBC w/ auto diff MPV fL 9.5 13.4 9.3 Low FINAL Tamanna noel [facility] - [place], [address] [place] [address] [address] [place] [id number] 0 Phone: () - 11/22 CBC w/ auto diff RDW % 11.4 16.1 12.70 FINAL Tamanna onel [facility] - [place], [address] [place] [address] [address] [place] [id number] 0 Phone: () - 11/22 CBC w/ auto diff WBC K/uL 3.0 8.9 8.8 FINAL Tamanna noel [facility] - [place], [address] [place] [address] [address] [place] [id number] 0 Phone: () - 11/22 CBC w/ auto diff HGB g/dL 11.3 15.2 13.9 FINAL Tamanna noel [facility] - [place], [address] [place] [address] [address] [place] [id number] 0 Phone: () - 11/22 CBC w/ auto diff PLT K/uL 113.0 364.0 197 FINAL Tamanna noel [facility] - [place], [address] [place] [address] [address] [place] [id number] 0 Phone: () - 11/22 CBC w/ auto diff Avtar # (ANC) K/uL 1.6 6.6 5.8 FINAL Tamanna noel [facility] - [place], [address] [place] [address] [address] [place] [id number] 0 Phone: () - 11/22 CBC w/ auto diff Avtar % % 43.0 74.0 66.0 FINAL Tamanna noel [facility] - [place], [address] [place] [address] [address] [place] [id number] 0 Phone: () - 11/22 CBC w/ auto diff IG % % 0.0 0.5 0.5 FINAL Tamanna noel [facility] - [place], [address] [place] [id number] 0 Phone: () - 11/22 CBC w/ auto diff IG # K/uL 0.0 0.03 0.04 High FINAL Tamanna noel [facility] - [place], [address] [place] [id number] 0 Phone: () - 11/22 CBC w/ auto diff LY % % 14.0 41.0 20.2 FINAL Tamanna noel [facility] - [place], [address] [place] [address] [address] [place] [id number] [phone] Phone: () - 11/22 CBC w/ auto diff MO % % 6.0 15.0 7.8 FINAL [facility] [place], [address] [place] [address] [address] [place] [id number] 0 Phone: () - 11/22 CBC w/ auto diff EO % % 0.0 7.0 4.9 FINAL [facility] [place], [address] [place] [id number] 0 Phone: () - 11/22 CBC w/ auto diff BA % % 0.0 2.0 0.6 FINAL [facility] [place], [address] [address] [place] [facility] [place] [id number] 0 Phone: () - 11/22 CMP Album in g/dL 3.2 5.2 4.5 FINAL Tamanna noel [address] [id number] 0 Phone: () - 11/22 CMP Alkal ine phosp hatas e U/L 46.0 116.0 67 FINAL Tamanna Peters [address] [id number] 0 Phone: () - 11/22 CMP ALT/S GPT U/L 7.0 40.0 13 FINAL Tamanna Mcginnis bert [address] [id number] 0 Phone: () - 11/22 CMP AST/S GOT U/L 13.0 40.0 20 FINAL Tamanna Mcginnis bert [address] [id number] 0 Phone: () - 11/22 CMP BUN mg/dL 9.0 23.0 20 FINAL Tamanna noel [address] [id number] 0 Phone: () - 11/22 CMP Calci um mg/dL 8.7 10.4 9.1 FINAL Tamanna Mcginnis bert [address] [id number] 0 Phone: () - 11/22 CMP Chlor sathish mmol/L 96.0 114.0 96 FINAL Tamanna noel [address] [id number] 0 Phone: () - 11/22 CMP CO2 mmol/L 20.0 31.0 27 FINAL Tamanna Mcginnis[address] [id number] 0 Phone: () - 11/22 CMP Creat inine mg/dL 0.5 1.2 1.06 FINAL Tamanna Mcginnis[address] [id number] 0 Phone: () - 11/22 CMP GFR estim ate ml/min /1.73m ^2 52.8 Low GFR is calculate d using the CKD-EPI equation. FINAL Tamanna Mcginnis[address] [id number] 0 Phone: () - 11/22 CMP Gluco se mg/dL 73.0 126.0 94 FINAL Tamanna Peters [address] [id number] 0 Phone: () - 11/22 CMP Potas sium mmol/L 3.5 5.1 5.0 [facility] Tamanna cMginnis[address] [id number] 0 Phone: () - 11/22 CMP Sodiu m mmol/L 136.0 145.0 130 Low FINAL Tamanna Mcginnis[address] [id number] 0 Phone: () - 11/22 CMP Bilir ubin, total mg/dL 0.3 1.2 0.5 [facility] Tamanna Mcginnis[address] [id number] 0 Phone: () - 11/22 CMP Total prote in g/dL 5.7 8.2 6.7 [facility] Tamanna Mcginnis[address] [id number] 0 Phone: () - 11/22 CA 125 panel CA 125 UNITS/ ML 0.0 34.0 8.10 Test performed at [facility] on a zhouwu Immunoass ay Analyzer that uses an immunoenz ymometric sandwich assay for analysis. Patient testing should not be performed using multiple hallie soto due to analytica l variation seen between test hallie soto. FINAL Tamanna Mcginnis[address] [phone] 0 Phone: () - 11/22 [facility] other lab See arrow point attacher d 11/22 [facility] other lab See arrow point attacher d 11/22 Mis other lab See arrow point attacher d 02/11 CA 125 panel CA 125 UNITS/ ML 0.0 34.0 8.70 Test performed at [facility] on a [employer] 2000 Immunoass ay Analyzer that uses an immunoenz ymometric sandwich assay for analysis. Patient testing should not be performed using multiple methodolo ginorris due to analytica l variation seen between test methodolo ginorris. FINAL Tamanna noel [facility] - [place], [address] [facility] [address] [place] [id number] 0 Phone: () - 02/11 iSTAT creat inine panel Creat inine , iSTAT mg/dl 0.6 1.3 1.3 FINAL Tamanna noel Oncology - [place] [facility], [address] [place] [address] [address] [facility] [place] [id number] 0 Phone: () - 02/11 iSTAT creat inine panel GFR estim ate ml/min /1.73m ^2 41.2 Low GFR is calculate d using the CKD-EPI equation. FINAL Tamanna noel Oncology - [place] [facility], [address] [place] [address] [address] [place] [id number] 0 Phone: () - 02/11 CBC w/ auto diff WBC K/uL 3.0 8.9 9.2 High FINAL Tamanna noel Oncology - [place] [facility], [address] [place] [address] [address] [place] [id number] 0 Phone: () - 02/11 CBC w/ auto diff HGB g/dL 11.3 15.2 13.3 FINAL Tamanna noel Oncology - [place] [facility], [address] [place] [address] [address] [place] [id number] 0 Phone: () - 02/11 CBC w/ auto diff PLT K/uL 113.0 364.0 267 FINAL Tamanna noel Oncology - [place] [facility], [address] [place] [address] [address] [place] [id number] 0 Phone: () - 02/11 CBC w/ auto diff Avtar # (ANC) K/uL 1.6 6.6 6.1 FINAL Tamanna noel [facility] [place], [address] [place] [id number] 0 Phone: () - 02/11 CBC w/ auto diff Avtar % % 43.0 74.0 66.8 FINAL Tamanna noel [facility] - [place], [address] [place] [id number] 0 Phone: () - 02/11 CBC w/ auto diff IG % % 0.0 0.5 1.9 High FINAL Tamanna noel [facility] - [place], [address] [place] [id number] 0 Phone: () - 02/11 CBC w/ auto diff IG # K/uL 0.0 0.03 0.17 High FINAL Tamanna noel [facility] - [place], [address] 200 [place] [id number] 0 Phone: () - 02/11 CBC w/ auto diff LY % % 14.0 41.0 19.2 FINAL Tamanna noel [facility] - [place], [address] [place] [id number] 0 Phone: () - 02/11 CBC w/ auto diff MO % % 6.0 15.0 9.2 FINAL Tamanna noel [facility] - [place], [address] 200 [place] [id number] 0 Phone: () - 02/11 CBC w/ auto diff EO % % 0.0 7.0 2.5 FINAL Tamanna noel [facility] - [place], [address] [place] [id number] 0 Phone: () - 02/11 CBC w/ auto diff BA % % 0.0 2.0 0.4 FINAL Tamanna noel [facility] - [place], [address] [place] [id number] 0 Phone: () - 02/11 CBC w/ auto diff LY # K/uL 0.4 3.6 1.8 FINAL Tamanna noel [facility] - [place], [address] [place] [id number] 0 Phone: () - 02/11 CBC w/ auto diff MO # K/uL 0.2 1.3 0.8 FINAL Tamanna noel [facility] - [place], [address] [place] [address] 200 [place] [id number] 0 Phone: () - 02/11 CBC w/ auto diff EO # K/uL 0.0 0.6 0.2 FINAL Tamanna noel [facility] - [place], [address] [place] [address] 200 [place] [id number] 0 Phone: () - 02/11 CBC w/ auto diff BA # K/uL 0.0 0.2 0.0 FINAL Tamanna onel [facility] - [place], [address] [place] [address] 200 [place] [id number] 0 Phone: () - 02/11 CBC w/ auto diff NRBC % #/100W BC 0.0 0.2 0.2 FINAL Tamanna noel [facility] - [place], [address] [place] [address] 200 [place] [id number] 0 Phone: () - 02/11 CBC w/ auto diff RBC M/uL 3.9 5.1 4.09 FINAL Tamanna noel [facility] - [place], [address] [place] [address] 200 [place] [id number] 0 Phone: () - 02/11 CBC w/ auto diff HCT % 35.0 48.0 40.6 FINAL Tamanna noel [facility] - [place], [address] [place] [address] 200 [place] [id number] 0 Phone: () - 02/11 CBC w/ auto diff MCV fL 80.0 104.0 99.3 FINAL Tamanna noel [facility] - [place], [address] [place] [address] 200 [place] [id number] 0 Phone: () - 02/11 CBC w/ auto diff MCH pg 26.0 35.0 32.5 FINAL Tamanna noel [facility] - [place], [address] [place] [address] 200 [place] [id number] 0 Phone: () - 02/11 CBC w/ auto diff MCHC g/dL 30.0 35.0 32.8 FINAL Tamanna noel [facility], [address] [place] [address] 200 [place] [id number] 0 Phone: () - 02/11 CBC w/ auto diff MPV fL 9.5 13.4 8.6 Low FINAL Tamanna noel [facility], [address] [place] [address] 200 [place] [id number] 0 Phone: () - 02/11 CBC w/ auto diff RDW % 11.4 16.1 14.00 FINAL Tamanna noel [facility], [address] [place] [address] 200 [place] [id number] 0 Phone: () - 02/11 CMP Album in g/dL 3.2 5.2 4.3 FINAL Tamanna noel [address] [id number] 0 Phone: () - 02/11 CMP Alkal ine phosp hatas e U/L 46.0 116.0 53 FINAL Tamanna noel [address] [id number] 0 Phone: () - 02/11 CMP ALT/S GPT U/L 7.0 40.0 14 FINAL Tamanna noel [address] [id number] 0 Phone: () - 02/11 CMP AST/S GOT U/L 13.0 40.0 22 FINAL Tamanna noel [address] [id number] 0 Phone: () - 02/11 CMP BUN mg/dL 9.0 23.0 7 Low FINAL Tamanna noel [address] [id number] 0 Phone: () - 02/11 CMP Calci um mg/dL 8.7 10.4 9.6 FINAL Tamanna Gonzales [address] [id number] 0 Phone: () - 02/11 CMP Chlor sathish mmol/L 96.0 114.0 91 Low FINAL Tamanna noel [address] [id number] 0 Phone: () - 02/11 CMP CO2 mmol/L 20.0 31.0 26 [facility] Tamanna Mcginnis[address] [id number] 0 Phone: () - 02/11 CMP Creat inine mg/dL 0.5 1.2 1.03 [facility] Tamanna Mcginnis[address] [id number] 0 Phone: () - 02/11 CMP GFR estim ate ml/min /1.73m ^2 54.5 Low GFR is calculate d using the CKD-EPI equation. [facility] Tamanna Mcginnis[address] [id number] 0 Phone: () - 02/11 CMP Gluco se mg/dL 73.0 126.0 97 [facility] Tamanna Mcginnis[address] [id number] 0 Phone: () - 02/11 CMP Potas sium mmol/L 3.5 5.1 4.5 [facility] Tamanna Mcginnis[address] [id number] 0 Phone: () - 02/11 CMP Sodiu m mmol/L 136.0 145.0 129 Low FINAL Tamanna Mcginnis[address] [id number] 0 Phone: () - 02/11 CMP Bilir ubin, total mg/dL 0.3 1.2 0.4 [facility] Tamanna Mcginnis bert [address] [id number] 0 Phone: () - 02/11 CMP Total prote in g/dL 5.7 8.2 6.6 FINAL Tamanna Peters a Oncology - [place], [address] [facility] [address] [place] [id number] 0 Phone: () - 02/11 [facility] other lab See arrow point attacher d 05/23 CBC w/ auto diff WBC K/uL 3.0 8.9 8.9 FINAL Harper Peters a [facility] - [place], [address] [place] [address] [address] [place] [id number] 0 Phone: () - 05/23 CBC w/ auto diff HGB g/dL 11.3 15.2 15.7 High FINAL Harper Mcginnisot a [facility] - [place], [address] [place] [address] [address] [place] [id number] 0 Phone: () - 05/23 CBC w/ auto diff PLT K/uL 113.0 364.0 220 FINAL Harper Mcginnisot a [facility] - [place], [address] [place] [address] [address] [place] [id number] 0 Phone: () - 05/23 CBC w/ auto diff Avtar # (ANC) K/uL 1.6 6.6 5.5 FINAL Harper Mcginnisot a [facility] - [place], [address] [place] [address] [address] [place] [id number] 0 Phone: () - 05/23 CBC w/ auto diff Avtar % % 43.0 74.0 62.5 FINAL Harper Mcginnisot a [facility] - [place], [address] [place] [address] [address] [place] [id number] 0 Phone: () - 05/23 CBC w/ auto diff IG % % 0.0 0.5 0.5 FINAL Harper Mcginnisot a [facility] - [place], [address] [place] [address] [address] [place] [id number] 0 Phone: () - 05/23 CBC w/ auto diff IG # K/uL 0.0 0.03 0.04 High FINAL Harper Mcginnisot a [facility] - [place], [address] [place] [address] [address] [place] [id number] 0 Phone: () - 05/23 CBC w/ auto diff LY % % 14.0 41.0 22.5 FINAL Harper noel [facility] - [place], [address] [place] [address] [address] [place] [id number] 0 Phone: () - 05/23 CBC w/ auto diff MO % % 6.0 15.0 8.0 FINAL Harper noel [facility] - [place], [address] [place] [address] [address] [place] [id number] 0 Phone: () - 05/23 CBC w/ auto diff EO % % 0.0 7.0 5.9 FINAL Harper Mcginnisot bert [facility] - [place], [address] [place] [address] [address] [place] [id number] 0 Phone: () - 05/23 CBC w/ auto diff BA % % 0.0 2.0 0.6 FINAL Harper noel [facility] - [place], [address] [place] [address] [address] [place] [id number] 0 Phone: () - 05/23 CBC w/ auto diff LY # K/uL 0.4 3.6 2.0 FINAL Harper noel [facility] - [place], [address] [place] [address] [address] [place] [id number] 0 Phone: () - 05/23 CBC w/ auto diff MO # K/uL 0.2 1.3 0.7 FINAL Harper noel [facility] - [place], [address] [place] [address] [address] [place] [id number] 0 Phone: () - 05/23 CBC w/ auto diff EO # K/uL 0.0 0.6 0.5 FINAL Harper noel [facility] - [place], [address] [place] [address] [address] [place] [id number] 0 Phone: () - 05/23 CBC w/ auto diff BA # K/uL 0.0 0.2 0.1 FINAL Harper Mcginnisot a [facility] - [place], [address] [place] [address] [address] [place] [id number] 0 Phone: () - 05/23 CBC w/ auto diff NRBC % #/100W BC 0.0 0.2 0.0 FINAL Harper noel [facility] - [place], [address] [place] [address] [address] [place] [id number] 0 Phone: () - 05/23 CBC w/ auto diff RBC M/uL 3.9 5.1 4.85 FINAL Harper noel [facility] - [place], [address] [place] [address] [address] [place] [id number] 0 Phone: () - 05/23 CBC w/ auto diff HCT % 35.0 48.0 47.1 FINAL Harper noel [facility] - [place], [address] [place] [address] [address] [place] [id number] 0 Phone: () - 05/23 CBC w/ auto diff MCV fL 80.0 104.0 97.1 FINAL Harper noel [facility] - [place], [address] [place] [address] [address] [place] [id number] 0 Phone: () - 05/23 CBC w/ auto diff MCH pg 26.0 35.0 32.4 FINAL Harper noel [facility] - [place], [address] [place] [address] [address] [place] [id number] 0 Phone: () - 05/23 CBC w/ auto diff MCHC g/dL 30.0 35.0 33.3 FINAL Harper noel [facility] - [place], [address] [place] [address] [address] [place] [id number] 0 Phone: () - 05/23 CBC w/ auto diff MPV fL 9.5 13.4 9.1 Low FINAL Harper noel Oncology - [place] [facility], [address] [place] [address] [address] [place] [id number] 0 Phone: () - 05/23 CBC w/ auto diff RDW % 11.4 16.1 13.00 FINAL Harper noel Oncology - [place] [facility], [address] [place] [address] [address] [place] [id number] 0 Phone: () - 05/23 CMP Album in g/dL 3.2 5.2 4.6 FINAL Harper Mcginnis bert Oncology [facility], [address] [place] [id number] 0 Phone: () - 05/23 CMP Alkal ine phosp hatas e U/L 46.0 116.0 58 FINAL Harper Peters [facility], [facility] [address] [id number] 0 Phone: () - 05/23 CMP ALT/S GPT U/L 7.0 40.0 11 FINAL [facility] [address] [id number] 0 Phone: () - 05/23 CMP AST/S GOT U/L 13.0 40.0 23 FINAL Harper Wheeler [place] [address] [id number] 0 Phone: () - 05/23 CMP BUN mg/dL 9.0 23.0 15 FINAL Harper Wheeler [place] [address] [id number] 0 Phone: () - 05/23 CMP Calci um mg/dL 8.7 10.4 10.1 FINAL Harper Wheeler [place] [address] [id number] 0 Phone: () - 05/23 CMP Chlor sathish mmol/L 96.0 114.0 88 Low FINAL Harper Wheeler [place] [address] [id number] 0 Phone: () - 05/23 CMP CO2 [...] 96 hour stability window. FINAL Harper noel [facility], [facility] [address] [id number] 0 Phone: () - 05/23 CMP Creat inine mg/dL 0.5 1.2 0.97 FINAL [place] [address] [id number] 0 Phone: () - 05/23 CMP GFR estim ate ml/min /1.73m ^2 58.5 Low GFR is calculate d using the CKD-EPI equation. FINAL Harper Wheeler [place] [address] [id number] 0 Phone: () - 05/23 CMP Gluco se mg/dL 73.0 126.0 72 Low FINAL Harper Wheeler [place] [address] [id number] 0 Phone: () - 05/23 CMP Potas sium mmol/L 3.5 5.1 4.8 FINAL Harper Wheeler [place] [address] [id number] 0 Phone: () - 05/23 CMP Sodiu m mmol/L 136.0 145.0 129 Low FINAL Harper Wheeler [place] [address] [id number] 0 Phone: () - 05/23 CMP Bilir ubin, total mg/dL 0.3 1.2 0.3 FINAL Harper Wheeler [place] [address] [id number] 0 Phone: () - 05/23 CMP Total prote in g/dL 5.7 8.2 7.3 FINAL Harper Wheeler [place] [address] [id number] 0 Phone: () - 05/23 CA 125 panel CA 125 UNITS/ ML 0.0 34.0 7.00 Test performed at [facility] on a zhouwu Immunoass ay Analyzer that uses an immunoenz ymometric sandwich assay for analysis. Patient testing should not be performed using multiple methodolo charles due to analytica l variation seen between test methoddanelle soto. FINAL Harper Wheeler [place] [address] [id number] 0 Phone: () - 05/23 [facility] other lab See arrow point attacher d 08/11 [facility] other lab See arrow point attacher d 11/10 [facility] other lab See arrow point attacher d 11/14 [facility] other lab See arrow point attacher d 11/16 [facility] other lab See arrow point attacher d 02/17 [facility] other lab See arrow point attacher d 03/11 [facility] other lab See arrow point attacher d 03/24 [facility] other lab See arrow point attacher d 04/07 [facility] other lab See arrow point attacher d 05/18 CA 125 panel CA 125 UNITS/ ML 0.0 34.0 9.50 Test performed at [facility] on a [employer] 2000 Immunoass ay Analyzer that uses an immunoenz ymometric sandwich assay for analysis. Patient testing should not be performed using multiple methodolo gies due to analytica l variation seen between test methodolo gies. FINAL Harper Ashwinok [employer] Oncology [facility], [address] [place] [address] [id number] 0 Phone: () - 11/06 [facility] other lab See arrow point attacher 11/14 CA 125 panel CA 125 UNITS/ ML 0.0 34.0 12.60 Test performed at [facility] on a zhouwu Immunoass ay Analyzer that uses an immunoenz ymometric sandwich assay for analysis. Patient testing should not be performed using multiple methodolo gies due to analytica l variation seen between test methodolo gies. FINAL Harper Ashwinok [employer] Oncology [facility], [address] [place] [address] [id number] 0 Phone: () - 02/20 [facility] other lab See arrow point attacher d 05/23 CA 125 panel CA 125 UNITS/ ML 0.0 34.0 10.30 Test performed at [facility] on a zhouwu Immunoass ay Analyzer that uses an immunoenz ymometric sandwich assay for analysis. Patient testing should not be performed using multiple methodolo gies due to analytica l variation seen between test methodolo gies. FINAL Pippa worthington [employer] [facility] Oncology [facility], [address] [facility] [id number] 0 Phone: () - 09/04 Misc other lab See arrow point attacher d 09/07 CA 125 panel CA 125 UNITS/ ML 0.0 34.0 9.80 Test performed at [facility] on a [employer] 2000 Immunoass ay Analyzer that uses an immunoenz ymometric sandwich assay for analysis. Patient testing should not be performed using multiple methodolo gies due to analytica l variation seen between test methodolo gies. FINAL Theresa worthington [facility] a Oncology - [place], [address] [facility] [address] [facility] [id number] 0 Phone: () - 03/17 CA 125 panel CA 125 U/ML 0.0 35.0 12.40 Test performed at [facility] on a [employer] 7600 Immunoass ay Analyzer that uses an immunomet negro immunoass ay technique . Patient testing should not be performed using multiple methodolo gies due to analytica l variation seen between test methodolo gies. FINAL Theresa Alvares [employer] [facility] - [place], [address] [address] [facility] [id number] 0 09/15 CA 125 panel CA 125 U/ML 0.0 35.0 8.60 Test performed at [facility] on a [employer] 7600 Immunoass ay Analyzer that uses an immunomet negro immunoass ay technique . Patient testing should not be performed using multiple methodolo gies due to analytica l variation seen between test methodolo gies. FINAL Pippa Radhatammy elin [facility] , [address] [id number] 0 03/17 CA 125 panel CA 125 U/ML 0.0 35.0 8.90 Test performed at [facility] on a [employer] 7600 Immunoass ay Analyzer that uses an immunomet negro immunoass ay technique . Patient testing should not be performed using multiple methodolo gies due to analytica l variation seen between test methodolo gies. FINAL Pippa worthington [facility] , [address] [id number] Medications Date Name Route Dose Frequency [...] malignant neoplasm of fallopian tube (disorder) 07/05 [id number] IV intrave nous 480.0 mg [...]
--- OUTSIDE RECORDS SUMMARY | 2025-07-20 00:10 | XMS_ITS ---
Author Name Interface, [id number] lity Address [address] [facility] [address] [address] [facility] Address [address] [facility] [address] [address] Allergies and Adverse Reactions Medication/Group Name Reaction [...] ML 0.0 34.0 9.50 Test performed at [facility] on a [employer] 2000 Immunoass ay Analyzer that uses an immunoenz ymometric sandwich assay for analysis. Patient testing should not be performed using multiple methodolo gies due to analytica l variation seen between test methodolo gies. FINAL Harper Wheeler [facility] [place] [address] [place] [address] [phone] Phone: () - 11/06 [facility] other lab See systems analyst engineer d 11/14 CA 125 panel CA 125 UNITS/ ML 0.0 34.0 12.60 Test performed at [facility] on a [employer] Immunoass ay Analyzer that uses an immunoenz ymometric sandwich assay for analysis. Patient testing should not be performed using multiple methodolo gies due to analytica l variation seen between test methodolo gies. FINAL Harper Wheeler [facility] [place] [address] [phone] Phone: () - 02/20 [facility] other lab See systems analyst engineer d 05/23 CA 125 panel CA 125 UNITS/ ML 0.0 34.0 10.30 Test performed at [facility] on a [employer] 2000 Immunoass ay Analyzer that uses an immunoenz ymometric sandwich assay for analysis. Patient testing should not be performed using multiple methodolo gies due to analytica l variation seen between test methodolo gies. FINAL Pippa worthington [facility] [place] [address] [place] [address] [phone] Phone: () - 09/04 [facility] other lab See systems analyst engineer d 09/07 CA 125 panel CA 125 UNITS/ ML 0.0 34.0 9.80 Test performed at [facility] on a [employer] Immunoass ay Analyzer that uses an immunoenz ymometric sandwich assay for analysis. Patient testing should not be performed using multiple methodolo gies due to analytica l variation seen between test methodolo gies. FINAL Theresa worthington [facility], [address] [place] [address] [phone] Phone: () - 03/17 CA 125 panel CA 125 U/ML 0.0 35.0 12.40 Test performed at [facility] on a [employer] 7600 Immunoass ay Analyzer that uses an immunomet negro immunoass ay technique . Patient testing should not be performed using multiple methodolo gies due to analytica l variation seen between test methodolo gies. FINAL Theresa Georgi worthington * [facility] [place], [address] [place] [address] [address] [place] [address] [phone] 09/15 CA 125 panel CA 125 U/ML 0.0 35.0 8.60 Test performed at [facility] on a [employer] 7600 Immunoass ay Analyzer that uses an immunomet negro immunoass ay technique . Patient testing should not be performed using multiple methodolo gies due to analytica l variation seen between test methodolo gies. FINAL Pippa Garciatammy worthington * [facility] , [facility] [address] [place] [address] [phone] 03/17 CA 125 panel CA 125 U/ML 0.0 35.0 8.90 Test performed at [facility] on a [employer] 7600 Immunoass ay Analyzer that uses an immunomet negro immunoass ay technique . Patient testing should not be performed using multiple methodolo gies due to analytica l variation seen between test methodolo gies. FINAL Pippa Garciatammy elin * [facility] , [address] [place] [address] [address] [place] [address] [phone] Medications Date Name Route Dose Frequency [...] Active Vital Signs Date Type Value 05/18/2022 Body Temperature 98.50 05/18/2022 Heart Beat 68.00 05/18/2022 BSA 2.09 05/18/2022 BMI 38.94 05/18/2022 Height 64.50 05/18/2022 Weight 230.40 05/18/2022 Pain Scale 0.00 05/18/2022 Intravascular Systolic 120 05/18/2022 Intravascular Diastolic 58 05/18/2022 Oxygen Saturation 95.00 05/18/2022 Respiratory Rate 16.00 11/14/2022 Body Temperature 98.50 11/14/2022 BMI 38.36 11/14/2022 Height 64.50 11/14/2022 Weight 227.00 11/14/2022 BSA 2.08 11/14/2022 Intravascular Systolic 130 11/14/2022 Intravascular Diastolic 70 11/14/2022 Oxygen Saturation 90.00 11/14/2022 Respiratory Rate 16.00 11/14/2022 Heart Beat 68.00 11/14/2022 Pain Scale 0.00 05/23/2023 Body Temperature 97.80 05/23/2023 Heart Beat [...]
[2025-07-20 00:11] LABS: Immature Granulocytes Abs Auto 0.06 K/uL (0.00-0.30); Immature Granulocytes Pct Auto 0.7 %; Lymphocytes Absolute Auto 2.18 K/uL (0.90-2.90)
--- OUTSIDE RECORDS SUMMARY | 2025-07-20 00:11 | XMS_ITS | Patient Health Record ---
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 MEDICARE [address] [address] [place], [place] [id number] Monik Gallego Self - patient is the insured MEDICARE [address] [place] [address] [id number] Monik Gallego Self - patient is the insured Medical (General) History Medical History History ICD Code Ovarian CA HTN Surgical History Surgery Date(Month/Year) Cyst on neck Hysterectomy
--- OUTSIDE RECORDS SUMMARY | 2025-07-20 00:11 | XMS_ITS | CCD ---
Author Name Interface, [id number] lity Address [address] [facility] [address] [address] Organization [facility] Address [address] [facility] [address] [place] [address] Care Team Providers Care Obstetrician And Gynaecologist Name Role Phone Shilpa BASS, Annamarie Estrada [...] 0 0 08/30/2020 Karnofsky performance status 90 09/27/2020 Karnofsky performance status 90 08/02/2020 ECOG performance status - grade 0 0 10/25/2020 Karnofsky performance status 90 11/22/2020 Karnofsky performance status 90 05/23/2021 ECOG performance status - grade 1 1 02/16/2020 ECOG performance status - grade 0 0 03/15/2020 ECOG performance status - grade 0 0 05/10/2020 ECOG performance status - grade 0 0 09/01/2019 ECOG performance status - grade 0 0 01/19/2020 ECOG performance status - grade 0 0 04/12/2020 ECOG performance status - grade 0 [...] U/ML 0.0 35.0 8.90 Test performed at [facility] on a Baokim0 Immunoass ay Analyzer that uses an immunomet negro immunoass ay technique . Patient testing should not be performed using multiple methodolo gies due to analytica l variation seen between test methoddanelle soto. FINAL Pippa Kenney r * [facility] , [address] [facility] [address] [facility] [id number] 0 Medications Date Name Route Dose Frequency [...] Name Instructions Status 09/15/2024 Physician Order RTC MD/ELECTRICAL ELECTRONICS ENGINEER Ordered 09/17/[address] chest/abdomen /pelvis w/ contrast Ordered 11/13/2024 Physician Order MRI breast w/ & w/o contrast [place]. BRCA2 positive gene mutation. High risk breast cancer screening. Ordered 11/15/2024 Physician Order MRI breast w/ & w/o contrast [place]. BRCA2 positive gene mutation. Ordered 03/15/[address] chest/abdomen /pelvis w/ contrast assess for disease. on study D/C 03/17/2025 Physician Order RTC ELECTRICAL ELECTRONICS ENGINEER/PA Ordered 09/22/2025 Physician Order RTC ELECTRICAL ELECTRONICS ENGINEER/PA Ordered Social History Date Name Value 03/17/2025 [...] 03/17/2025 Pain Scale 0.00 Notes Section * HOLE DIGGER Follow-Up <html><head></head><body><div style=text-align:center><span class=clinicalNoteMacroWysiwyg id=[id number] macroname=&quo t;PracticeLetterhead spantype=macro title=#PracticeLetterhead><img src=data:image/png;base64,rBAGDj1XHubFGVEXCRqMGqAKBZKUUKWzCJKHIBI6V4sYRHEBQJSET 3EGuu2f7SQLU MVqQB6TBMIrlcy8ULCFPXFWsEcCtgQHOrUFNL5CWCHeZxuDBQfJPCYZDFhf6S4CpZF3MxjLProlpxI6P lKlIyBSRSwgCkiTIvpQV YDLQGVvBhGBDPxePsxMgEKiTELW3TbuFz7RNtjmO+u8/Tsk4fru4l82Y94ZwdwyvjzukSmZWnVU3thGx VRTNJbYGfpUmsWpJ3RpE MN4jL/lSfuODUqXtMRiTINzzCUSUGHyDBNRNGDZayUGc0HQxpGIq/iSWtOLCQlFR8yYs0AzmVl3Wf5ib UwSjPtgpeJXoWDip07UU prgJZPEt0gbOGCFjUsuvRDhSx5aH8dQrMvhQT0toLRVchl18dkepyMO5rmMDUb9k6RIj6vfuKv69iXCG pBwSzNg8W9gOvymAiICE Dp1VShT9lqstFd3sBkdy7oIWzGFTCbIaJxRkovAOWpWdmA5eG8dar74kQHaX/CwESjqv8CZg7iln2Zu6 6oQw1x/sABhrlu+/vpru h3232T/pBQWdKiuZsyEl4fUDqTxwuvkOSTUUQGI+AdQYHAQBQQQrV7+EU0e+nXmDXgY93KLicuwDb1Lx 11LZoZ3Udasx8+pSZPG0 t+xRx8a//6kHvoRMfTACoEAe1+d3D8MHmtMf33x+2DqKIeJbvUGpU49jRcjzTm++/btVL9+felnmOsJF iDMdUdGRgYFBQVJ/wPPv UlIuwpJPiuKKpPITVhFS8V1Wf0dk3/LG0TBff5dMy+HqtkklNMI1hrDNDllJIPuP2k7ovzqgwPoHA2f6 Orxl29yP3GMgl2S971iD tMV9KYRGCskXZYskyAcZp3lsHc8zO71LFMhJjeGUM+4lj56jDiTzZxxaE9czCGc/wpWrFhB8+fPp/Xr1 1ThIcQAmEcQIl61lJFkk ejvmXWZ79IlHFkY95I/umvQvun7KpBYJATDfVMBdZ2tHgVdBLWMzDKdYl2xo42iiDefPkDxp6EkNTI51 DOgcTDBB6qvgb3UZeYIh pNkdlBRlcDGXrSq3Vi15nd3GDeQJuzAeFhvpXqAH3m8/EHsSEsb4jLkId+4i16zlnieKdGldNAkYdG9K wEtYiJtPmPt37uZfKFRR aWOd8otcD5CikN8Xh6zq1v+nyu3SKMJVMTJjYKFYAnjAtQf11//joHyAJUA3G7vlcAJtUOuVYQIN3IuD 1rMoS866zgqasJzWWe44 qfhJlI8O48jNx4f3c2deg+yjKnIG5fcctaPu742Ar/WiokfMg5jnKUSiToX3jBCQL6JSHZ2THs0Xhh6R pIioqLpu4+S3X45EvT7A W+gD2e+BcTYy2oIGW6QUi2S43H9dX0iZ2K9v++W1+nCYZoIWi54PW5waPDvxbkAiGOLHTTPujLoufc4k IcMSkc0acG3wYySAWPI8 d9+k2Br60eET4UvUudMt4262p/IMNadTzO+OGJHzlPc958JRjJVc37YMyXEKodIv1/m0gaaGt4NsTAVr 0NviXtmJMibkhVjkl37n g/JJWhJwLCWxkCBsuYwaV4uAnQ5RQv80GPd6tQqL3TWGaiERbGHUjbuw65/MNAY/zE3Q4aRFOtFFepXM +cafn7+hj8KFyNUboLVZ NV4DcJtiLI0o48xv2FuOhECQ004B9AfmNVCVRSexUU8vYOCSZto6JvPfdFZm0LyOK0BTv42EpzKznPFB 6W/jc09jXdhIga10Vcrf BKN0ucQy6w/wWth9MIMIwzUb4ZD4jtOR0sMvc2ahPhlNNRQk4KOKuEzqFxw1eezxszR4Nl2rqBpbf79W i3fRNGWMKn1X/x4lL66i OOAPDgHkExbPfgIS5u++lcx5rrijiBdS0TwuAwPLIiOTCViDBEecXMYllGIrQSLDLkNnMNPr//9dxXrG gy2//aiu8Q9H1IFgrzqR Mj5hdzG5nFDiD9aiuqGF4g9dtAANJj+/08LmXqNKd7iwNjTLRiBncP06IAOIjV5iRxvz26+eG3KI4KFn zIuEUoTRh4SXG8zhaaxx gj5jBhBhkCUdLvmrfuspo9EFL+Ex+QXiX7/g+yO0DWeFIsKqDjX4VWCA8mfUwyfPmnUzvhdIc0t8tjmt Jo02PVNd4/V1PAaW9sHJ AsQpsCwc+jH2SZA5QyDfrPL5UgLuYRl22qLoPopW342rSh3j70bYnAqYDEokN1bJuIKc9IPzTGE6DveZ eUqVdQexwwdOlRuddeZO /TKagGniz5TitC6KdYfGLBLt7+nRLFUntdOoUaH7OkvunGHzmsdPkPVoVR2/PhxGd+iDiKpn7cmEbQh0 eczkn0MjKdPnSUHXpyif z+TG52rI9ONMZLxLqhtmPgnujrJsY7CWZwyKyBKhiadGMByALPzVTwztlp6fKC/t12ZkzcVQw0wnKl+c mR2eWaQKhKoNNV338kGY kGHDJv9GVlBqqFYr+8oipmOyoINif5EkSznbF/997YJ0uk6gFlAHBkrGtSHVHE4VPcRKF8VXGzGFz2RB rRHQxa3w+gbU0Gw785oS 3515ahCB3P2c+6y8x6Dw6nxOnvj/mmOtVqUDMwL0Ns+0FvLIv47deBXBanH1eCYTQsqrAcPhBRRGKaQm rw7Aqyek9uNTMEd9qCm9 oKghHP41tgcR6u2koiFZLAhdSFR4z1XFdi3z30QACcaYF1VJoUYbvx140tIkaCBB0LlK5sX9FYrfqJsD WriwAA/ChCl+MDhwzTsi ScoICCAbqhRnSa8+BEc58yIdejrq5/OiYCNMSDueL7khHxw3CdMJzF8bEbsI4MgQUlPb9UDXkhZYmUnd OGwtTr/oAAKDQ+j0qVKU AdXdCq1L6DeViaNtSXYS4yuePcu/jIxwIjX8r6+rIEmQbi80lyo54l5oXimjTHkK18ir1tRcHgGuLrGW Dj+silwSpYsKbcMUyAQL WrNIZAbDWRQHQUi3Tl2m9ygmVol1rvl5uBp9g6TVRhJhEuO3gd6A7GHVLW8Lee7w6F7rPtttad19wOBq gHVMbHhE9cCsiiUSfFku zd4ezX0ZTji2EmG80tkEO3/c5fRf+AJQepdAVonfygfR9crBtaHBJF5lCh0mrDX/G8WBZQPeLv3ZRzqd qJlH+eokDvffoex/ocfV OuHnUOuS0KohjMrdXvFlvOct9j2L8OVMGxVGK0BfooTDYwsRyIuW5+BzLtpo+dwOPHEpGzxArud5p51j xn27488cf0rqu+MkqVKS z/OVIA1WqAAnVPq2QERjxsY3waeSoKFYA6Q2QX/vbeuCnEpOYBeu6SGb6gTBDZ6pRWA44gYW2vjeyJ1g nMLbVy/gZIyDWm+mxcEB NJBiNYR37MzbWT8ybKgNrWmyOGgwjY6+IGIHfNTh6OijLNPa/ltJEtSzTFVQ5sFjdaIU6lYCLyRvMx94 +9XIYbJ//AYCFMgyMjIl ATUnmU9pEoANrgVTUz4dmThcW/ZqCSmqAhPs2zVUcl1OPL4oL5iW1oZiRCz6CQDe8DRB+HGYQh9rNUx2 dQgP6DBv/5035g7v1l9x cVHsD2HQSlNH1SJ+w+Vf2B2YQDG2MOaa59VM22kFABeGMJ8+w+U2OLGYWuuCUkNLANNxWlLqemo9jiIX VKfHwvRncEvGSSkfUi5w 37wHRh1DLgfkFJZvxBIWGckkhgHzR8vScEuCOYte3o6QT8K9YdX9cD3oKn3sKIq1OajnGg+nurUrUcLl hIIHqww2F/cbhZ5Kp1N6 xokwmb8RFgKTfJoTXHb2QZYD5eRhI/BBOpeZpGSboGN7Jl8j5xdn3Hl2N3uhfTTMnFQN1zJ3+QWVkxYX 6x4ILjUxnt/SfPL10ugy ihYb5kS+OrXX2IaVDXIQyN/OBi69EDtxEILtxZ3Lg70EN4NHG722gkER4gY8AYbJA8vbFnrq22IvoMl+ sJX0PNUOAzV9fMBE3sb/ UaAP8YAshRgQy+eTQ89+BL6J17oZGgqkEe91Waluq58ZCBSDqTXvs9ZQWxAvwOQVjgBpVDrDdyMWc6Hk 4WGhdGvew/Wki8lCO423 YDnYPfnAGbawmYUmHasVFd3UBNyGq0Bb4rDTscu+3hc7pnG0C12R4CqQiCrJ1CgaHqkaeYJ5YkK1+bNk 36GyY/rUKcZW1DNbsdzs LP03z/6ZbrvqdEUd+6rNNlGuEitWEhNnsPf1PTcfFx/lk4nZX/cWMU2aE5kO7w9PxZO4v5zu7GPUxGaP RnvQ9NpQBYbTIOqmMxoL w0dEYia7RuuEbQUUXkO48GNwwIubo27w200v9r/fxwI3LKTJwP7UkZJL5kvGheZg3qUaJeNwiX8vVJjE 7s2HGwGOd+iv7VRs/FNN HXtFrp0+hz6fGT/LOKlWVuoiNVuO93JXxj8TRDQXMVWsr4+tAZLWiKxJbNpCQFuWFulJX5RRuMhWiuYU v43lnR/ah4y4EZDVDnHf s1H5XF7/VJFPg9WzQiTTOC3AXRrK24P7CzwoAvAOsEn+z8p/rJPqhA7RF0/VmCrTE3m48zY/c9UsxQba uRHuAuLyXcMHDhQ+YiGv 7iGSj66AEyGTBLgEMhxtehaq0Cbx+X+ojYmojfXgXBTADG2zSq11ywGKghUB6zk87ZgBmSl0/kPg+U4d 3H6iCwW+LhLdM/td1Ksu YhRg8ABAj3/1DC5r+0SsnukUGMOO3aylr8xvGML6fuG8S+apbL35IQVxlDDNIAyzKyt/Mdval5Ks0brd yhPMkKohL3ZWdzoGFkFq CiEGq8jPzv/XEJHzsRRTOFgeuPtObR+uWm9H5usuKerbRAxSumGGnqdjlBC2TOFwhDxEeZygoTB6213A w9RzJfbSeMj5D9F3RSJz azoDRsseGpgqEz3ESqtI1bwoUMu9YeMcwFZqnaYHTTHI4ww9FGQftJPURYzSNIcqvCElbr7SYIdKKUzC OhaCLYg8mXdOImYpQrNE rBCqnwUYcibqnpxTjF4Xx0pNBggZx9KNb+B6eBxEWT3G647I8RZ5pgnqx6MoEP5pTa2HE/onNl5VOFqD IljRInBhASfyOO2eBfKe huYY2gpVyAZfXH/97It8zgcFLc6kppRg7BZkLKqynLgjyhJucNivpGqtTK9rShd4j2+AKQ6BX35bVI6f 1FdHvPVCtHuVyvtRkWbG if8Dnq5/u5P4w7ANS4xQLiIIyrO7LfsFYG+YxUFuebiXE2c9dw/M0fNgrsQIBurmnDKWsnGsbq13upsW x/B0Q0QoOF3QbzaVTHHd QbeZVL8ZGbEqZnUebucoU7KWvQLBjrimFs75ZB+eojxbGgHRXFAG1KOMt2KFNn/uGDHpSpIHVCHeCa78 umyV1nFngnJKi3nwUgU7 BLlHVWteoteEDCVXLtDw6KBE4o2gZa1CqStIEABqDK9p+D+etGoHyXH1WjNyMxJpE7lWXyEFiXM2zTIi lS/tGtR6V2+mguDBb2ci VQl2H51EOXbI6REiBc7r+vn70/z6e4PeBbriOSKonbIycI9rMtBDNxZ70BOkg3psLeOWiVwT5Q/rATi4 b2OOyJxZ11Qx0Rz55bEu ahomjvK/R082Yqx/XdkQ47f62QwxUzU7I7EMqxlJpEUClMKNyWQAJjHP9e1szPVBTcSxzYCsMEmGD6Ev zZdpp8/PTXxZi5TZRZVC h/S9W7FeMS4tzRr0VGn3xfKggSNMGVyo6ncn1L7DpspL5X/5g/cD8Qi1Ptex1ei5v6tJQ2cXeXr1VWsg Ip5PJQTi08Mjxg8ZG/LD kkzsreDIvzBDB2t3W0qRBNReT57wOHaTH8kgd5OkCvV0nAWweUu6PCM/AELECZfMWjQIOUj+m7OQnVPB pOaRFlk2TX7Cdvtpno4K W7d6OSFIKaEaf0EilEnMk2tTwutYNjdCNqa2pf8eZ7a+Dc6/WBetwo1kPpZJ254i+oaR4qa7MPKFw9lt +890UsuDPlB6HLpKaoPk QASRQesnelcDMJ3voYK1LM+owdaF0NaC6xeJpPgLI++PB0/ynzWgUnU65aUE+ECT9LNyKe4MOKyjHVBL oO5vphYSFxF2SVHM0SZH ua1AXVhddwZsdKhK1JdQY1tBIkrb3YrpdB+IpUZEqKPXVNtBQ7JhmybtlpWCfRYo+WJ0VChGCaFfPXbU pjHAvoak8QGfUklHlVWM nEnXQQWUOBf9XhOEVF0DzXpEHkVbb/PENfM6lSInTvvEQapXlGukyiJffFNPqRx02JUZtAC0WA0rpZKG Jp7xk+f8LLIQk1SWmY1d IYu/krGoxWfEH+JUCWjWwjjJ3+vgwYkrkEKNpMhi7+jCCDFYzCRPKdEpzvAf8Cwn59mlfgWtxQFuARQ/ rbBuJV0f0+PjyKiH69ch ggbJ9PLePr4fWrFebQw4+Whitney+zguxGeJdaSAuGWlkS3Y2PiXix+hWmsBUXJ5bi8GmnSqoBdfzNbAP+6h do/BqMyhqlsxuz3EYsLp gXhpz91LD8cSgU3o0RKEyj4JfjNbQKSTrFoqSGHdA1J+8g/CGt9kcrRtnOpXooWqts6XD9Plz/tp29eG y+IJSe4NZHk2MW5KFY/w ASMvWxr0dMXMuKf/8NBIPp1Q+sMkTZHPYimuMeSXxqgCwggkUSH5Wr+MrJQ+JfnueV03kg1x3Ltvyfmz luGM7QeobSlKI+z4LqWT odvkdU63GRX9ud+/zB4dG0kaE95fNEHg8xBP2pC1kzINFCtQPHmZU7h01ntvySV7w3NOHTe2YzbTnDlV oPv13y3u5DzFvRmAHNXo As+6Cz2qRyBKLkezw3rZiSqKKBZAIO/zHtL7r+yjiWQarctv3uYFzXcp54vz3mehHS5Jn3qSKpVER3X3 S7+YxJD9eu7e13epAV8e emd0KijXBWNauy3gdWcyJJ34LlWiRPLQgz7tjqP+SbCJjTuaFmvHVxRM8cLLZDHjOs4f8FPR/+U+xkmP 6ACrJmJNZ5+ZEo2sgFu1 oADUNdOvdp66nvyKXbRz6VRlykRbRfwgOCnafW7IWPDNjeIeabZUV3gms+BOqXnfKEFYyywg4nfJuRO7 6H310mJI0hpZzXSouIhk dSB9UpfQXDIfYALXR7JcSeNkDsZ13BR190MJ1rMreGqO3jYpWx6yjQZs+RPWIAw+JPiIEa148/T5Mnmg HFox2kPPdm/bxBlBgVRp n+YwOtHDmUMpATUWze4ozf46vxaOXsu5jl5hcKtkfBLuLUZOFtvrMttwbzLSEhcfvT63LCESEDwJMyqW xGHzUnNJzOL7WWae6JXq HCNrNfWZ1PPYZPT0ZdzQ4MatmTl4Og8n9FkQeZmMMDJjWc+pQAWZGdIxY83mkPaYeE366IE6yoCL1Uku WkUEBVLmYHBlCoqZbgU0 mJGjRBMezmbAmlp7zpW18sAVAUcS0Xa3FQ4o8N8sxQzG2qzQzanE/rClixusPBBTzo9Ck8FOKHTTnPtf mLHMYv9aPFe9g2jSwczX tC7zIby19YkFYx6ltc1YFe+LBsqyfaf6QoOYc+ZWmjAXSvCUADrtFRdrVGA9Qq1mOl82PuU/zOCStZrQ miaiBRAazOYgodT6DAwf Kkajp1UnP9+1UnS34pXtqOWm7KaBtbJ8Ta7Pe7iWMGusS0rI8XJZujc9HOVievDlA0k7ZyDdqEWhnGLf YaLQKBYmP4bnL4+vpW2v beMwl30WeMDB97sbe2sufwAOTxoApcgyVpGbtFEmbuEW2htkvScuOS4eaP2B6D2wfbOA7ufDw//mlb07 hvmMaCcxT9KwIufp8SE6 kEREx3m7R6wYqhhslBYcR7/mCjvmX7lvWB5ZCNzHBE7E4ZZ/a8SJ411eDURShXd1TQ3p3zQ29VzYLSF5 KaWKhrLyrGoTUEsL5VNH 2de7ujKrJ9ISusdyj0m6TjfUcZcCYjvvl01UNWRc8JmmQ2JKMj1q7BWaVdv5Dw6v+rUqUMVb+tGN09+T 0gdNAUW9p+de8nehE/Sy P7irs4VcdiOITLnIJTkJntgrp/ChUsx9faoTq8VSlhoqamXOaWg0SWa/UzOQCBDGcO1kp/Ix8bNLzPj5 Vux0AdslL9vV41DBnv3l X7/8Z8qnHUNnLgEfKPqU+xY6oJh2R4qtuhXR0sayhzBmPiH/tST8oaWG+mttx1f9374FB51QK0IGAnhY iBMgeHTTz+isaak+++myrd3 BhvqsU1NJgA3yzwLCkRf4PcQT5ADv1qkq56cqNHw38ItQOwdg5LKuXqqqvUND5MEvmzfhaE58jkC1vsV nXKavTxOH1HsZYU3B5zX +K1w+GTnUZtHs196+jQ6xv5fQsiqN8iw7cWnk8gKpH3ZVDnkYc7haOkuyMNIy8NVzXLPI2qcihIDfVAQ BRhCU61tUJtM8JMCz1eG O82qpdhoTFYPmZhaZUtRlt71a4gbstW1I+YbhMgqIVRjA1/tiIRcgrrQCnV3WW1g9Zc/gpPIa8Ou1gki ikwSqpKDlYfCtCf3DzsP UHSA5EQWSGVWQ2MMb+SxnGgr6KGp2PJRZls4CU818Y54BTS98b7lu+8CBnpyWQIDanZ/G1qjxdSMkAIf MciMXoUtMUcfxwBp9Jny 2nnuEfpzLeraOGChdTv/s0wG3Nve3eBLUTHlKgMWm4+tZl1lZse1CWuAj+7GM4TWbfTP67BeubxDiXdr BP5tPWgXz0/uc6jw4iVB a4O3iP1bNS8q7d9gF+ulLzRNZqHLueEozGnB9QAxnTExjRRb1ogbBiRFFZgJixTq4IBUJnR8EDYKvBYO n+5XeR/TikzmA+Pb31kI yUYjPL69n/nWPM6A4UscUAj/SsIQSLRPtDoQyxvwPrk782O6iXhRJTrE7TuTRVNOChCY0PDetwJOAeCt JTW8WOSqrZnAXzpu52LS zAe7m5Yy4BtEPmyqe7RWZINwmQ1A5R7RDmzkxdeDmTQLePyFaRwk8Atdh6+JeJS/GjqRJVIUPI/I6nu6 m9K4s1UFBqgFXr9181bz PlKMmBxJeyUZDXuj8LAIxsmLaWFyjrEISG1xuB6n9dfdat+gZQgtCVQsmRJuWWYggBrIEyBAUubVKtWT dcohgwYmlZBLfp9itlQq J0BRN95dYzAZLkDMH7jrUBoo7wY+IeCtv7tNXJORSOjLiVQAUK9lXmT0YzankA+K/mEvCnRvUi1Vos+R wT8qOx/I6FBm5vYUrEO5 wMrLj+xxRcQ/fNu9QGsNgp0n9yVdn05XDO8EdQsZWbzQqimyWuinwtb3ORn9R/85pMOCU74DJ4tjjOPS RYgTIFCm/RGdBtAsU+/L TrsFxOcMlG7w5Wpj/slcgg6ff03hJxSbvnYda7vbhSbqMEy6k+JWaWL/4MKSKybuq9/NYDS//gy5Mwcx Ho30smgrxGdbLSRkbF+k Dj+Mh8cZ+D3eKIQt+/6K9kEvK7WrG60ctFL7cEWMv/1eBdc9d5j/1iXLoepYUkwiWLZ6+fKNOG9H0wjB TWnaF6MqHVqBvRjB5iH0 C3GvMZHcUgOsUMVj3Q+kzXiZoeRq4LZ1W402PBInf8CfFXAFp7zBRKqXAv0KypiuXZNMJfVHoiNNw58B 5U0s4p4koFpE2KW8hJyU BesBf7B6eDD7ZBQV3I9wLHOysUWKlqZmmtr0xLe34iDRhLYfS5kf5WmuXNunD9Yo+gfQPGnjtuER/Pmz pCJKEuJGMBRUgU1thJSc enfrT65EVXRBvOhxoiq7aTyz6PHaARzMhwJzPorXqgBfLfkGMFCSJGXTj9B6YsK7mOTVuZ6RadFVPx/S unSBNiqCWRR+pbvKElU9 ikizRX/BCckHNiNoW7JFRAIhWn9UYahiK2fzLyTod1mKBiSGsDJPMwx2SiNgEROlUqAVKwKU2FHyT+aN Bb8JUGonIFNQOS23xSMN kUjYD5IYzZ3ITUhgGvVWXNX9NwuqV8vzPrzvsvswD1qbGTvOlSKg5gEMUp6FnjYwDQ704qxVaM20gIwt 1ExZMRfIOOVYUTdmxKt/ ZSoRBmimUIzmLmCqFgpom+EE84pfBhcuBNlPu+iBRnXg9iC+f76qKk4ucHHMp5J1NBN9sGB4CZTr15Rf DOcCqhvObsJhDJa6RlIA 3QrLi4al9UPIveGbeR6Xo43DAGPrvasiBavcceOHGYpAcKUEPMXJ+eRCQluy7JgaYYdhq3aLzKxpM5WQ G+uIL/GGCNkrEdP8u3IA 98h+y0bRQbO0SUaYsN/W+OIhM960CxXn87pHBi1v6VEc9DognTKF7TR8caDB5l0QpGjFl/Dn6MLc6sXE zjBJLU0BXEhsqNPGFPXs R4BveNAEvDnNViOXMvvfVwgTDWLRUqTVMz5ixTAMfvtHyrxDQFYynW3PDWp2ZXZaYMZklwWsvOAtW3wS /YtMrb/DAJXn3L2UcHIO K2NFp3Sfa3iYoD8croDyilY5HcvA8dGRCzC76HnmFkyBeORw+a+kDCiO/qQX+3WRGg6wOxRpXQmGqIpY JB98iVC9LntTvKQ5+wpM j5+b9z0FHadEik69NG/gn0WRbjITrfBafTZm4tDgw+3KSm2XwoXCML3Q6EHYtcTQnAWDISSvOKg/y6Ex ui5pfki0A2B5D5ewwPz6 OJktnHxpKdeE4kPJEA2fs1EuAptHAj5krfSC2GPUJKRq5XmjE4THr4gnJU7yv6knGKBuB/nL0R/HbflD UqFX43mgn6Pkgi6CBJkQ KAQILx2ksglfxHsddNuo1uZvRIHZcFdGtQLp2ECROtv7ZfF3JdKGC7hPCtbPNlo/4qI+MAgolChfYRFE h93VFWeEMZVzBTNb7RdG El+VFsut03iciYHKsnGsF9OoYQ0+Omnn+jPP/+KXekcmJQPoKP6fdAtsp70CXvAYYoAhrVffccZe9QMQ vTSQW736lX6WqPrA+uEE MyLywbR7luEJJFmfur6OrxsuOF+JchJafihHTmmxOPVXGi2pgmglEZPmIaaWRv7VvTi60rDeMdJdSylB fqQNcGPqW0g3suZpeKlR aJ+B5zPKfbZhDLJSuV1tl05zyxZ4i106D401YLISFlbG+WMCJGVQVHXbvzjIwP2gnLRzWaaB7shKqFxv BGIJNmL1lAQGUuknic72 9GOHX+YeyBMRMhp5IfSWRfLNGOi9ULXBpbKgkHEB24/6lb8b4c078BBpD6+665rgIwAsm8cIxMj0qXn2 Tf6bYUGcgKBYz5YQSP2w 5naUAFJR3FqX1mPdUFmGpTJPBAa1dlulv/1Q6YNVDfsYYED077tN4rS08+/rUIWIqNN+IRf8Hceqn1lE tOmTZN+uGE0aLnWoT5pN cIwAkzmu+uuu+oJUqd8IhWAyQACUfoiH9vSP6Jzq6CRUCbHIHDteADRsWz1kcnsfOhLnoY+fXsaPHgwC e0EjqNQiAZMvfLFUhYjW UHxkYISYYPrWRHQOJWIpdKKa8QRwkRGn/rCUaINPPyGH8xVLRwYYZ2BAtGkGNuwMDEiHMVakA+wAGEYh oL0rmTGlnQK5fIiHWyNH RifYAHCMAzD+NIVSFOoXDUvOCfLt9BBICG+/MzhMvMyUFmNx8wvmQQ5bCYn/F3R9ucPCPqipKWCRxOZO UXFixenrKws+ONfz4aU7 fTKt1qnd62k309sigp83hnmc2ZBC08ONadumJSBxpBkGrPJhUDPpOs9rRCAvjOjZ4+sRMOTOb4k+ROPB Qhws84Z32zmFw3uo0jJ5 fTZnEumXyCr9ERZZzYoe0ueleuusHtVzxaEip5LL9+evvjiC/7SG/Ys2xKIR4PxY7FUWkyjVc01qVwwz ahEPH58tAo+/vprmjdvn vkfSvhM77dMm/vvv1+GGSa/2pH6EPx5i3zb106COVJTGFsIm1vTmAvhXZCVwYmv1fMCLWy/EytWrKDu3 mpUC1Mof7/+mSpWrCjDj vjvf/9Pug17dAGJQJfSOz/vmGxQd2VdOX75Hn6plPAUs66DzUJPt3JuKAsYR9EbgBr8GN95pRTt9ONw+ qwSUz7CY7e49Nlsup/+k V77mnB4uOPzRwmssYwN6tSEu3HNhUkeu5F35yKO8kiBWwYBWBGwT5c2JAUrwpuUtkHfhaauy6yzOuuvC EQDvRXAfu34nKOaHAcGK U43MnePLVYlzfPdxaUWAw0e+ZdD4r0W354Bd3cmQ1BObRJWeQTmcvxVTbmL9TeVslrTkSgVjGhYy/g65 dsxkA4FEsDKmGwqYSoeH S+++KLyuQcvFrSPm2++AzGLoZvz50/jev/9/nTHbJcY92tCDrDtYqPBOLcm8OXZF27++21qA3vTqxKtV cw/o7kN5Yz596TngDrFd g3pCplGLIQjoXdbkMcB82t5lKKEU7fHtJAFYkwlesxmhxzaqJ6qk6MwAuKIZKTEkS/SB6nDgXWPhFFKc 332ogFzi6RyBLxOQYLIf sFz033Y90NV7MjCE+/bt0+OxyAd+rhlXMiMhAeT1JKyDeK6Opwz24ZScWLSB8SAxz1bPnAlXUjTnxUHf TJlpMN+3Buc63//+580b 3ylFtz3LK+XFi1rFIHUEHwBOguZoNFMKCy3fNIUpq5lrv+SGfEa9V173AQNuIJh7nphXqgSuXg69KX20 sbnXP1gvuXEkovmo9+tU rgHx+Ie4jfg/bnGUge3oIJWSxHZuz32QjB8x3XOvY/5h0gm2rA2K/7880+sUxRCBAl2AVGpw7727Gx36 aefVIjopZdeohdeeEGFv BezZ21LxFaxLcMoF0eveAN7R5eDk7xcaMSshpoF5YGg/fXXX/SWkXjSZ98ITDcyWRtAAOLhR0RY6oAXV 3o9AJxztdJLO19uqjqco 0/ItIEUVSz3oCorgpqe5mTgod40pnHb6zMbx9wvzlGjDA56LPU3n1is4YVRi6sZzDqbBe91Nuz2biL1M qc8mAOJPHB6nE/at28vD TkrdGgHPw9LH+E9wfuN+00u4fPtrdzUA7im0tLiKJwOihNw+bno0RIEUU4jGuGsxKyijHQkFPSY+sWJp F+8JmTtaRjZnQ525vq7m FTyOT8VtAj3j1dMM97bqCopIQpwW22ffubCe5OyeYhALcSkmLGZVdEaL44e1t0ogncEDd241xyEgkJOe Ejc3QTRu8wkdml28vpmd qSbP3++4hwTQRCSCBY4htmlMaMg+++/G1wPKYJg3LomrUqfpeB8FP+kdLg+Iaxs+5WnYHe3KzIveF9TY GPFihXynEJrlHGiIWBUr WhLXJTLzZgOIRFLCKpm9BABftlNDUxeAe1l5j//fePGG2+B1sytl43u5wfUgGZjFOXC0TDKMfqTZPlE5 ki9gtqiwF6o5A4lH2P0V fXFXh7B6qOg6f7ODVDh90faqKPnbk6ApoSCA/wCNTXOB2GlBHvIaBYvWOY55gLbJ7cmywtyHC0GW3726 sCBMfZbl0kXj6UArRDCZ WGl61012e7YXPKWDPjXs3/2Hfl8548vBJvnVsGkC/FxTBYVcRl4wwe+90csBZg6j+YUA7Ud59isEbZa4 n787BlbwyQ/e/Qswft5X souXSdheTDGjdVl22Aox/tRMXk2vRfVSef30TrqYSesLLImutuLTUzRO149guPLShWc9dXVqkSuhHCs7 Z5naDi78+4GX6l229sqt r/ViYa/8fjjj1/0anDPgsVK2KIKBSHhSbu5hgRRJmScQZdNe1b/HGdRl8EYKCVN9I/+++85jvVUgGiee +3844K2Sp9IEzM14zELG bypgphTkOeZWjTq950jA6Aj4pRft35kVql5GPKFIoEMC/aLlp+HgRpLczelDYkQyqJFu0VMJCuCmxmCu irmaqzPddWqVSrWMaio3 tuhEIXIZdYHqjLm3m3mUdjlg2pPcnZRYj1Ikv5X0dUIUxmdgkAkH6qZYXIgCw913HJIEbGPTQuiLe6Vj x5Auay2964oKldxjw87l ORr68ZKZVmsNDizwBAAVqalHrWVUv/h2uqiijvd2mHuut8/CKk0uVbcxP31zgrMiPzJOoGRfLt9ysv51 dEWuAxXuHQjGW8t9twWv aoTIXGqJ2p4bvOWnyK4evXOYVpZj64niKvkwYnlpiJ0VsPezktDaMQPXdvQuJaijws8ng7INY/XHUgnV HqCyw9WZXvPhBIiqfPkj exasxkJlCPnN2knGV/y1Nf1098S7Jd8h5HLvKT5t5I7Ysmx1Jvzw54YTRUMfXyYFyrHssdoPNkUIWG6+ avSATuqixqrB02tz6eQ8 HwEeMigzBIg2M1lX2hs8orcouzaG5WMOboHQv1klosMop6u89cOZxdP98WIMaVzsSeUTSaWg/fy448/t u3jyul41Gzd97/xxRcq1 bx9mVIceWEEcgHSZsrkoXonEWcfND0UEyRXnICI+EJae/Y1aI9iv/UlJtGojN2GQ/m4w+kh7XESVI1Rn C9aYYNpUgmhTHufJ75jI nXgaYm76Et7K5ekYlRcxUC7pmGWniMLJownuyzBHiH0df9d+m3jO69qoIJp3S5VhTLLogY76P9gqzNce +saKjqggq3ZsqfJMt+ox Qm9LBOGJ0k9uAXTNiTM/gVB1s6Mr8zFfkEurSKyFk6jwQzDDkzZ3ZnlJXi1yWlm3fuPD66t0wz91Jp0+ oBuAz6k1uyZ9g78i+QJ5 151J8djqjfUozVjR+euwkcad+i9aoDATMop8D7epwouBv2m20PWkkiJj0Bdlk++2905nsPSbz7m9jxZA f1ga7URyj9R994iB4e0n YRwiUOey8dHau07PUH2IojQsZv3PsxN2qeRKVPzsRaw1La3ZdRxl/597jGYUtwCnk18ADV4KQHV0cxXl hFSQZyoUTCJ1x3A/6Iz0 BuweTlcGr6NepFi3fGvvb0W0ZwmdfJUBORGyZfxY9QP2frMPwP8g8sIKHT3h9tU/eD6N+G+vWx02cbjW SSH9cfwKHT4LDyivcr28 l+8zYNGU8WjARW2NjFrWb0agWAbsVAWtkEHXSVz8IIkAohTMPqhasa12j1m8uDJOFxtk32+NoR3Z080O +cOP6ms4VbssDou31g0d 1CXqkA28vaveTLa0/X3vuc7ZEzA8CWVrpM1JafPVDHNnyYnJuc1LXYHtSvqkvfZYtlrZmWBfCCEM/Chantel 96vVylj11+HAo8sMa4E2 560gjTPBRTQH67SEd9Nq8WKPmiZZFTeHe5qJ358vnHvKGXeVt1dd+zUZVertFglhyUJwxb8tojR53YpI JABvn6y8GSRjpQG49tnb LzMh2rt21f3i+YmeQZTJN8wJxr/Y0DGxL4TueZQH9DVR8l4y4cFLg/WO3X0pqvnFx49xmoLjTiQcAz2c HQKZN3iNFYRMeRnwbKKq Ypb+/RS1MeJDOPSbaFee0SDlbZtBzUKFkfGxir7156ulCsL2tg0o5sNHXV5m0tQ231Mnaz3+z+ 6rBWmvaMhXWWfaTWWExK NCEWizOflcX2GGIGtzbrpH9nF7BVoGHmHZC/wgt9uvXNj8yGxqW0GLO6B5WTOkXknp+YJ891GOZFFF0X ZYJDs5Ju2u00iveMm4tN jE8ueVrjUcgtltUUx58V7lKip4AjdEGuopDzLHQfAsdMti/Sc8OftiSFTuY9QF1HsC3xj8sgnQPpf3GT 1S+pDbob9YP4+bNSWjbK kTStNdbYHJt/T1Cu1U+34RjQs577JNLuCqESlmUtxJwunpf2eUM0bNWIEI4ISYPJXYO3gTv4FV87wJRz qMQw0wDxQjMdyIrftIJG 0/ZSdZCH2tifnGCsAfqZweEGPcceP25L6+5dWRa1hIgPrqnshhXQGdppJXs3UCOce/YmUS2yLWwyR3IQ IEKyKrxQIBNnTpVCrGxY 6mwBHgg8FboOb5v3ho6o76dQ6AVFsw7yPeXUD7B5h6b5szJipkhJXJzBF1rtE818+5Xzfp0dzLGjsibX YoZtbS9vff3AfSRbg6bw HBB+qfPqp1Yeq8kETUt4tY74hnjeuPaYDWZqBC72lkldS1Ls5kbgnQnY29xnLFa2xU0n7LLfs/kmQDBi wFMsXS3wsrIcXWHxw6iZ foljHfxU5152tcKNYQE+kJ5LPsOpanLHZJ15MC5fUehT8xjzy0AHI2lSieNNCIONppX7lPZvNSmQvhrB GQon+qzI8aY29vb0uXKp EhXwBrQmSsiROzp6rJxcpb64L5pR/gVyiALealP6g3tX045a/F8H1zBqKGJQr6+W8iWvsj6JiRf4SNK3 nMwbft8QmfpFNuIJz2Nx Wf4bV0N1Gc7gzm0xXh42w3bESw4YrhDmgzHRNVDbhJUTz+4fAtgrTSS6AfD4E6J9OeGx0hT7f3t5TW97 ggadI1vqmIPdMotUhQOC VPwQl8uXH70bHOYwrXCtIACuoqu+SNNdkhAlXB3aRqIAaL1SojlzhoxlO2xTZHBwTyJT4GfeRTHqO2Sn Ka19AJjiunblaXD2y9si 3y+Ef7eWH9094gz+kzcHxqjKVUNnB1B9ICRRZAJR4pxpYUZiOIqfsAyVLBHopdib7JdsXr/jTPtBasva MiTlu917jkFH2hy2M5p1 8ytUiprwHjP0qoqcp6EhKlOSLGEVhDncJnfiNY3PQynb/wMtCWtIUEqf/zzu8MTjnWgMQpLrcrFiYURT 4pjI5QssWUvcxCOc9OCe tOmTTl+u9HGfCOVLAXD6w2VxyKwHAR/qaNymWL1wqaAMDsLbUumdIuZdx4p51CwWuSDCbnDthnaBkkxy AieQmRLC6QSCQk6wDr2t eHG3At2fk3etjbKwYC0206add5BJio/o0Ff/dXFMzPnmWiCKDKYRtpW0RHVmUk5QaXPqv5MKOcrVV0CJ 3786HBpJMSqkj1fA8eM3 aWmnTdALhJpTuNbeYC7uR19/NTenPwTZrwwaXWG/NHL3LjBjjVoPSo9Qc4aTG2z87LnOopkxhSRQiRTX g2OqI8VNjRh9bjTUyqUC rl5jO8IK4Gupc88gqgp0ysaGGPrlPmeMxTxyho7JsVtmCltZPZu2ntod7nHDigY9NyVA3iaoKX7QdXLA uMVCIzgtz6LjsSjnmFNG FoFXVqHDUrZzI1Fb44sZKetbqo7sZhMaDDUcsb3ImWPaG1h02QpEJ1IwbpWy9J4GUBsj/BojnlNmZ6Np C67WNML+fltU2eNTSuqj 4w9Jk277ZY1LtQh3IzMyOSVCuKEV2Gs4mZDBTPlwaeGsERe5HtgUawc+dEhwCCmdTvlmZoFpCkfz57YR FdY86E1FyILr5ng6vpsm EMLKg4tyvvmziOaKO6OrLWgBeYixNfd5ewJrOA+mzFPUxri28dLNlWfq1NoG87GU7MWs7Hr65FUgoB4r /322+XW09+DdOhuxLiVB l0W3ox/1KwMorkcIkBF2I3bhUAHn0/ZYzXT9/MaAotu6u9Kxx6tVivn3JdejXxzvcR7O3/We+DJ/Uevi SOuw1o83IrM2ssvsrgBh ++5903gpk19ErR6Jw8ROoAboFnK2car5ishc/qCqYt66VAVUC8Kc5B83nCYgYIDhR3ZMrB2ODhfS7pWe PZKObpQvsbZMVVNE4KHq vFl+SoG7vrnCnziW2CfxgFiepzMIHZmf1KRZDwfM9ePciTyfTfNljf5O9VylFyBt1GJDb10KMqX44uVL lrTyud7rfhtTI43fZKzH 8SN5knnys8UeLxuVUgr8VsslStEZuJMjUvIkljf27xwLevRg6/y65CryJxdFd9h6g9jrlhvQVQlQhRLV ip39IPQhfkqADKs4bFy7 VP7kB8927zn5ACpxTIA89w40BgH1sSi519tTHPMULVNSu5YbkI7BiFTuMwhIhziogSnejwxvGlGHX+ei OiIgrR3AazKQ1XCE1zPV r0BU+/1sa+67uiAiW7OyZMnQ5T+OK7UdCZiG4JvcCtstfQaqyXL1DiP4vYFTCBwZoNJjK6J+kUA8212R vw+lG8k4jUBfRW0g2dkU TDg2CSe8cB1ZVkD16pp9+1MlEukQO4xPJmsneFEJCj4xay6hmYivSvS4+KqUKGCV/tFo0ieiwn1iYwAO LpARdqP3uKhvMdwZVtsE NfhH8zR5lxLfVYrFA0ojZfx6g3kGglaGE9LiknbYwEgFsCrR3b6eme2O42o7bIsgA3bBNhZOV3aWvXbX EYYD8B+wUD0+2IF5NtkG ykU0fjLdEAMYPlHw/Ja89IO/a/e5hJvbjC6bmKd9g+SK6hjkP6KGRnal8fS9Z2AGIzVj9c3KpAF1T5ZO +B5w780jPYSpZUXnyJpU 7h///5ntaJU4SEPR+G7P7niGvIzg/ynGGaLZyxBtldOnKb8j2WSOifkejNbEx0haIGQqUG61fl+4j7qF 4AaxKObvwTQvw1Bs3doJ SExDydq3VKhGuPIZV2YzWvczOubZNf6S7ld5tnNCllRyYJR3F4nSC4vrZCi9Gt9MbGmelUXcu368ZNaC 9ygZH660xYQMyHwP32ik sSaBOdK9FoBQ5lv4uifXdVn2N+rvDoLNwXbbMU6q3D1qlqPYts22HR+dlWk9NiMFo8e02VaI09CH1DT4 Tu1BEYOnzHOzf1ApnDIi r2D7cK9AAktvpjkbgZwYN+T0j0w2Dpz0XBQGSSwVSoVoBT1rXcXAhIfEODv56pan8Pay4bFtxYbPbnr5 qGZLZYGT6LMWCyBLiHTn XCGRx+HrztDUWUZslJWKbFXvq5e3GnFMOFqdLcXLBJkPSzoy6WQuDNIG1Y2QCl0zIYOoUJAvoSOOwrPT TtNXH55XKvmLQXpXMKaX n4AUusapRkemmDVKWN8fCXwWLFXizabt5ytKrpoH+xEL6u0QX8y0K+Ia0D/DHjz4LtI46rWf9N7Ze3lC HIKn0HcnT/nskdUotJqB 7X80KlyzrxP1aylFAqsQ+4f+qxFK05+JSic8fpsVBJfAk2dVxpkcNVhU+ilgJP9pQHh0XcQXyax7vkUU jtjBxe17qmh5fVrSge1h 8VTg9YKGRc/gg3Nl1X+WH23dBbNM2UadYc9a+JNHDtsgR6KfCCTGl20+lgQiGAMdMGBBkkYlYlJe808z pXoXAgSpZar2aWpyg8fP LgZDRJoG1yPah/UcQ4bWjvGnmV+aYbkg0hYewIdf7nkaRFFbdb9//922xHRV2GW21VBvkiVRLOnMoO/G b9u1kP3x3qX7UWcaNRjd OG54/qjuPPT29RjkOmj12s8azM2pBEBaUcAfmRn21ZyfO63kWknCi+E8NYMVvdrDRQejcjga3UvFEi9C jjuIdJyepSPgIyR9gX+4 sNasJqzn2/aLclrRqImORMkZJFwLTp3QQN+L9LjqRkPjhP0WwhYxzRELtNyQDFKSDns+oEFCMMwDOMTL AEBpxDEq1CYbxMDb/gEC dCOGHvQG8xQPAjXAC2UDlLzOCmnABDdFPNpeP+pTFRUlaJ1jwMTixIF6iRjMQkCTStrNJVLHKjV+AQLE IZhGMYnWIAwDMMwPsECh GOVdrEUDuZHzxYXO6MIUPfDBBxRBKcTFTmeJdxBLNByEC3eDfBmTSY5PSmBahEAcga0ZxOerYHK+fn5k b+/w9wjB5VBVgyLnkubj SRYmZVSmaHSkjwWf2xYYbyU5p0lxnMorqn7prni5vYCN5bqZ7gza71qxk0P48tbD/Al7zLtMokfGEinS QEiork78ZG+/ZshJ4jrK ryMfxHcxNzd0Lk8OPcNCDI5XjtNhi4aYu23NWRst0jggGm43fWS+bdq1Yp+/ixwhrsj92+ak4ycz333F f1651645yukNi2r379/V ygVjy0dRE1s4fwflc3sHCgN2zr2H7lTvLsoC7fW2rJ4vFwUZv4W4+7I4fz/GWLX4HXPhAzBInFAYlEmP YpQoUKFqG/mtls3O4tL0 roZr1IbwKPw35LEkv+uuatfqFYcWYlCDWWUfzWb51BLB3kd3Aglb3yIeqkskVXSVUkMekvfPs0IVm7SW LjDNN6pwTAZCaH9Rw3YO 2avK0mURWspnkzOOLyYJq+mW2+0MHpTlxTk1bPYL8Reh/repd7rxArSS+yCD6rBXNC7+/btjX79+hm9e lJvnH74sULL8JEWzv5Dq pGtOET05+ap0L+LxIr4nl9w6h7329EgakB8JktIYHHOwJwa481/x8STOI7cWSOVTQRXEkXJtqhrPcRsr AMMnc9iBD8nA93MtrMqV EjslxCsUFwNWi23HXo3S1+VX3/8WmMiTpi8hrXL4GwRElvugkvR1nbv7nrF1Am9p8VHmLEwhLn6UfO2l fvs7+y976ehEnbOs8/9J hSJCMmUjsdxS5eILNptzDZkehVMawi351jKhokKLV8drxtXKfnpRois1hYtSLcTvzIrDtTjCvuEWa4vF va4Wbck2ihY50QpO4Dhv sDQPMO2gk8jtMxZkAVbQ6dE/Si/5ifsPTMuV3/UoJc4bG4COuhbY1e/T58+SaZ2cNfKn6jQt0LApGLa9 aoy/A091KXE4SM8NbYEO YqcLF++LG7FWtCNNCQy8NG0L+QP59tyZg4e+LHHHlMpcvLXX3/XxmaX2qZ13Dsso6rBxcxwwgfbxdGjf l/Hrt6GsAlCQVvEpc33v MB/3nGUTzGWF5Qupi/1k08+UTEmlSpVuurhIPzLL7+foOLCiPObjo2FAP+AJ88YK097Y8hy14IXKimzQ PtKiJ3wOM2EZ9V42Ox1d LcjACOMce5gXR2//JBma6h5DvZWXzuYwnpKNhLdW0+zIyFMAbAN6cp06GXWIeEbXeynLkfYrIq1ECX9e yrIB210Q6OBiYgmBjkLB kDK2pMRr2H45USbHXrzDW42duFuEv4NCBlcw9eMGwMQIwHnsI+i9yUqh5m1Micd3wkeK6YMGL0Pllohp HX+ndRipEHsnAo1dvzGl mRVk8T2k5010p5mSw66j9F41Hb7IUKsXWriZ5j6C//8c+FAsICZb944XPor33+/KSluiuz5wpqR30djG yxhFyiY0ITGZqT9mHdmy //0lboyg8LEItlt9pPtRqbtLGLlbZJqwDlwywmWiqCW7BbKvbxnkmJitKSsYEcSomEbPxPblSpiHhD53 NMs6SH1kGminY/AgQMq5 Vm401cN5P+++huu3pnBnC3vlQRgsmzzbaKrMxmzvgJuEyVhNSvyyOJtjcHl8fGN8WQaCHmDk53ZgUNvG QeNBc/D4iLQqnTImKNla aHT/O9//8Sx1HGgBne1/A6MYE6lM2MwUi/DeHsbYPeevUYn9Sfd54RFQKqTUaAI7kSpn0erxc7++KGxd AfK9LwWVoEg1ithdDhd3 3dGp7Txm32gJ0bCvosOEZvKL6GxJNgfpBb4fuMtaNlgqGy3QhlQfSFwub07WhYXX0VAGG+XD5QjV9lFU lFX3rtAwrR0mIOYjafN0 AYSh0V1z5CtMCSuE+7/+qvkQKx3tJ/13hmMxXUEBxS0//64HvGK6g5oxjsjJqUGvfGiWGT0KUOfoBnAU Wz058GnXv3uVFBaNO5/R GYV3miTsWQMg5gkEecy1atVi6DORDOJllsb0UGwtVEc8j523fFZyvPAN27+dhNxCIISAdHt07xXv703f 6uzEc827dsl0YZDofXSc REVryNhiQpAv/Qn9cTBFBDXicZPqh58MGh4qcrePn+6XnUmUB4G2JHvkwbic48q2/7777ftx/EJ49qYW KOpcfwDKdfv2PTCbkEqs ezdvWHKUjlLmXDWA7aPFAPKz1pjAPe2+ftbSsu56nIHhl5LTd6crMBjVbLVFbhaEdL8iBT/r8cY5NXwx eoUf1kqf2099yXQCu4Qs ETUjc1lCrQG12vpqYmv9A11iEBrroqLUNphObe2cPsTs+zZkJCH36avfPSw/da7U1AoTEsnTYOqaLY21 jsTIKhHsP+LG62MOyYvl sJROSJCFqk5BlUUUpYI4jChrj//oMeES74SgYBaCpbk0j630mA+U+jiOG/aCpKAULFgqVNn1psnzg5zE OES884kpfZwhPhCcy7ju FQRZ+3n63UE8v9OHa42VIt6wmWN//zzzzKsQaWP+LwA+ai0xjLSzJwa/RPUV1dVHAW5Pl9A/uKFuYm6w 5wxefJkl/m2CDZ4Nyb+/ Eq4jyJDswh6ri1kFIey4e096QrggADGS7lhWXf3x43aQYBumhu++ecdXou+RjhUltYGgwaCyNGxAJVm5 01fMlk0abAJ7w7wKIA7S 3fTqWjTTiB3OfXzMTFUoGPonv0LewRbkF/+7g5DWlHQS6Kn844EDYtW01fhb3xpAj/+/VUqE+u+smXL2 vzQkJzhSoAAHA+h5YrTp 0/CnLootmFIfzMtqtPElZ3PsHeSX65CCT1BsA9edmpt69ThGKy4EHV+HzM1iV9W41Tih/YIW7cpNMIuW vs3wgHJHf4vyLCWOHFuw ZxgoXtioTyomNNClEQdbmEFs9yaevlgSCfABvOZgHKPSPpxfXAVoQYQO6LKnq0itPUPY19QJ4LypY0// JO8Mo2ON0/K3gHjIoysA B66tx5Bmu+NcyerUH30zXcbUn7zHxte3kKAbPKGUZY//GRYyRsFrIoqTp7o7aPW9eiWLnqPlfrboKVWD 66nGpbX5cz6rT240skRx 0TrVlpCffTRR/TLL7+HiP9qWA3k0dDNzJSFVeFmFWdp8yk8n8L4WDNL02VBwvAC/lxFSWdG3BgwBJlZ6 iijtlVxhHymM4zye9vHi c+yVlWtj6i91m075wQU4QlZA60BGaolLRMz4UJURxiLYwa0LtrPeaO2oZMI+0DDMrrKNEFZ4V48TDypm 2iMemXFZM+9fldCieQ1G 2GJh9+uG1ZnsQGTOcyfp0Tm0kO++nEcbkb5QldUyNE1cEpbmPYjlrKaFRpZdnk2SxOXNUiJpZdlHq9GW CDON1JXrQapMoNTZhUi1 cJ31Ny9Hp8s3sScUtHaHYcb6nzBHdKzsuiVfS+Mb0Xzsj4++knmc/AdJGBenesGs9NGwa4gi+6KcQYsu Ys5MZ35SDOfTlpiU1Km1 syZI/peK11gzFywGrKkhPUerAJCaqOjWOR19qQjwRAwQjG9UFs06wSsvfQH5RtiS0x133WkPkCE4E/v7 ErnASi7aqGt6NLYOJAgs MiUxjTAIdidRF35AZDhRF/E1waBpwKVaj+SMaN7aWvsnAfkhcXRESDvpGQzzaEebVIfLth25PtAyGf26 8bvJRj3Bp2VzLlyNltlM JpSbIitEy6tjefhGywuCnWhmnLomvYw9IztgVysb3Txo0XVPbkGNftPE42TiEzN5iOsGzOVhs6YsRlcA 2Df0zsp3yXpOPc2mxQqo gnMBN5IS7+yH/sAsJmCbIjbg7M4BRvpxim4734PH1cMWiLTpje+mC0JZ2m1Nl82lOzr5rk6KoOOjYqLe Petersen/J2C+QzMEQVi5jEocB gd0ek4tQ5h2ruhJoVNNerlc7iHb6RWBROhebLG9GAKQpFF0XJEf9L3ONbTFSPeHP95dOPABGAYqTJwVX hzwtbXvqMxhHhRAmbYH2 aWm8YtjtXcXaku9O1XXBDFJ8ktt+I5swBoonnmOQ3D0ESYbJWM9D4MJttCIMPElfaaRz9aK5xPMcbJdo SpVkltHGijmUeFdzytyL PEiIerznmCdyuAJmAiMMVeI7vYf/O9PAWvEPpuyyBMTwty0Vrh76y4my3wEG2Sh4E+/eU9Jxk1rMWbvj BSUI0fsAMHDGFIv6e72v +1A4vHnEKrJ3EmmKPfXJ3VeIAkKRZhEC1Pi3XMmCVqt4qQZwsNfuz8PSq4QkZfQmiFreEmMiZtNGDbnD i0ApQssB1/gkHfxMFV1j oLWdTXKqJx4KfNFeLHuQ0pq3l0S9kgGoFmA1VmgTrxJT/BAZSLuogzxFNIXk4Vg9tas4VaF6PmQcVMEC jROn9878PgzdaUIKFYQD iRvfEMeRMUqLHW2YkozfVkuafUmhvxCXVfPTRTUkSM4Vz9+wup2tEb2Z4h1nin93gk2jxRN3PsphZVTX ++jelZPPSD86gXlQUw0a Dohm9CIAhw04b/Yltjyi97TntH72TuX48BrLdaB5F3kl5BPJ2VEclDHxmhO0YC8zUL44FLVFneNhmuGB 9mMFEoUwhxA25yzqjnqH /uuMJjOId5+1mUqp7L5i5Vk+gOyDelghEZaXfvkODEymfavTZ002pgZQTEzJO4bmPhW3+aZ4Bwq0rdPV 8Q7G/c77xPfUxpb4xD9l Aei1ArMHYA7XDBEcN4j0DM6SevJ38C/2U1b0+F8cjJVeffVcIQMlvqw0BC2/9acqKqb5WdHl7L5npEmE bDMy8cYIXx7LyGuZHwOs 4UK2mvJImh6RAsGrpewzOt3CqO3yB29EbZ8ZqE1GVfS64fFU2iyBZVnu3J1lfKdoKrmcd2/3OvKxa1KH 2FzRYjuK3pXHMzKNGlH0 tgTpWDp8Ap8GDW/5OfjawjIynJKRPbQa96+lb84szq15w3aERje6pGWpaEjrtlIitrfOvNixeNDhmrFE N84hY3WBS1RZBSTEE2Pt QNT5WRxGuMfCQ/M+2WmSASgD2b8hDmBHj5VnByAbyakiW/g5gHtyuUIyktNZZ1yUY7qSSfEuOEfAI5Wx huutQDR1+sOWBUhHcxvd GyPIB9LYhntM2qBFh4TI0IIMVogpFlkQidmkqfc7a/OewGtWYyuu1072syIFkGp2zbJtIYCT5DOda/+K I/3Fk/mQmC/l1ee9wdxz jADC7BSIl23C9gQU7X/drmwbsaLt5sox0DtgFVRzliR11XCH9YHzRMp6ynJdUbX6kdRbnBhawns6xiGA VtBIusqbDmgVaQF2g+jm 8S+pcJ7qn56x64z5ADiGcxmN6Ddt9yxCkZDroR4QtO9gREgU5ZXMPMtC0bPuPVMg/7brwG9lS9v+1t4+ +23U/vr8eZ5C/UBTwn5v hupOWgMrLX48xSZPYqL3b3t67IxMtfPMTVJSaDeO6mAqc0TnsnX7yJoVTxTmfOu4QILSXOAdibSyfPss n79+plLWBvOlg9GNWzIS r9XF22U0074e9coCAiKhBtig/vEYBYp9X06R0Rwzuvm0spxz7vPGJ9oILcOAULTlDN16usor9YU4hclH XVFg6SaX5kkpMkV6dcHe 2N9ilHraDLLnCjlTrWbBPa6azZFbAoOFwklwUh8hxI86FpCreXzrqK13vXvgU7n4W/nRMCAeTobuji53 6lsVX411pkW989ieL2Hh MWObHIN8XJA13E6xfpTu3JLfVWw+pn3pkIUZ/apL0zQ7eV2eb6g4GZjpRcTfANuxP/iCoz/3Z6F5EG/O 0PyRr1u8K5qbbcvTBrWr iydUaZMmavqQoDnh/cB9Q+6LZEG6/JzYjnH1YxkM49cTJDx5aFBMOXveMOFMPVPd2/7y3pjvolpzlCsF cw/J7M8CcI0CEe8spihe RjY5ZcvGW5HrFckEgUzX3B4uX84d3WivY55DiYkGQlxpKB/FND8+/bjh575Z7/FQOWDf3Ppqg0kYYDPl JqMLiBM+vkngIUHWn+ws GL+NqQ0Lkw9GUaqefYPPOLYQfo3lAoiOabZGzv7gsXEb+XhoHlNWi5e44mBzkxsNTpLSWzs6LSNwoAXd idYgDAMwzA+wQKEYRiG8 QkWIAzDMIxPsABhGIZhfIDo/8Zm5FNZU367AYYWOHmZEqBaNsCI></span>

<st rosana>GYNECOLOGIC ONCOLOGY FOLLOW-UP VISIT</strong>
</div><div><br&g t;<strong>Patient [...] ; originalname=Chief Complaint recognizeconcepts=true spantype=section suppressempty=false>Chief Complaint ([employer]):</span>
Surv eillance
<span class=clinicalNoteSectionVisible id=[id number] internalbreaksection=false originalname=HPI recognizeconcepts=&qu ot;true spantype=section suppressempty=false>History of Present Illness ([employer]):</span>
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 Here for surveillance.

<strong>TUMOR HISTORY:</strong> <span><ul> <li>12/31/17: Presented to [place] ED with 2 dayhistory of lower abdominal cramping, diarrhea, and bright red rectal bleeding. CT A/P demonstrated a 13.7 x 11.8 cm complex solid mass involving the left adnexa invading the sigmoid colon, thickeningof the wall of the descending colon, peritoneal carcinomatosis, para-aortic adenopathy and a 3.9 x 2.7 cm soft tissue mass right lung base.</li> <li>01/01/18: Transferred to [facility]. CT Chest d emonstrated multiple nodules of varying size identified both lungs predominantly in the right lung.CA125 = 250.7, CEA 1.4</li> <li>01/02/18: Colonoscopy no invasion or mass obstruction. Biopsy c/w ischemic pattern of injury. 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 placebo)</strong></li> <li>01/20/19: CT C/A/P - Small oval shaped soft tissue mass In the left pelvis 1.7 x 0.9 cm, previously 2.3 x 1.2cm. Colonic diverticulosis. Stable left renal cyst. Small hiatal hernia.</li> <li>01/22/19: E7K6-Exinrkdsl or Placebo + Nivolumab or Placebo</li> <li>02/17/19: C6D1- Rucaparbib or Placebo +Nivolumab or Placebo - HELD Rucaparib or Placebo for 1 week w/ hyponatremia</li> <li>03/19/19: J0E2-Hpvmcowjkr or Placebo + Nivolumab or Placebo - [...] adjacent to the midline incision. </li> <li>07/09/19-09/01/19: H07B6-Q02R3 GOG-3020 DEB Clinical Trial</li> <li>09/23/2019: CT C/A/P W - stable small bilateral pulmonary nodules measuring 2-3 mm. Mediastinal lymph nodes measuring up to 9 mm. Mildcardiomegaly. Stable cysts left kidney. Stable right paramidline abdominal wall hernia. Stable mild residual soft tissue density along the left common iliac chain measuring 17 x 8 mm, series 2. Stable bilateral subcm inguinal lymph nodes. </li> <li>09/29/2019-02/16/2020: B23D4-G22S9 GOG-3020 DEB Clinical trial, CA125 = 8.1</li> [...] protruding throughthe defect unchanged. IGLESIA. </li> <li>03/15/2020-09/27/20: D18P6-U66K5 GOG-3020 DEB Clinical trial</li> <li>10/25/20: <strong>Completed GOG-3020 [...] lbreaksection=false originalname=Genetic Testing recognizeconcepts=true spantype=section suppressempty=false>Genetic Testing ([employer] Oncolog y):</span>
<ul> <li>10/02/18: BRCA2 mutation c.2312T>G (p.Vfx247)&l t;/li></ul>
<span><span><span></span></span></spa n>
<span><span><span></span></span></span>
<span><span><span></span></span></span></span></span&gt ;
<span><span><span><span class=clinicalNoteSectionVisible id=[id number] internalbreaksection=false originalname=I nterval History ([employer]) recognizeconcepts=true spantype=section suppressempty=false>Interval History ([employer])</span></span></sp an>
Helen is here today for [...] <li>Hypertension</li> <li>Obesity</li> <li>Hyperlipidemia</li> <li>Tobacco dependence</li> <li>Adenocarcinoma - radiologist origin</li> <li>BRCA2 mutation</li> <li>Pulmonary nodules - 06/2019 </li> <li>Hernia, paramidline </li></ul>
<span class=clinicalNoteSectionVisible id=[id number] internalbreaksection=false originalname=Past Surgical History" recognizeconcepts=true spantype=section suppressempty=false>Surgical History:</span>
<ul> <li>Colonoscopy
</li> <li>Neck lymph node dissection (benign) 15 years ago
</li> <li>Exploratory laparotomy, total abdominal hysterectomy, bilateral salpingo-oophorectomy, bilateral retroperitoneal dissection, left ureterolysis, omentectomy, cystoscopy - 07/11/18</li></ul><br& gt;<span class=clinicalNoteSectionVisible id=[id number] in ternalbreaksection=false originalname=Past Obstetrical and Gynecologic History" recognizeconcepts=true spantype=section suppressempty=false>special shopper History:</span>
<strong>GYNECOLOGIC HISTORY: </strong><ul> <li>Menarche: 12 LMP: [...] id=[id number] internalbreaksection=false originalname=Allergies recognizeconcepts=true spantype=section suppressempty=false>Allergies:</span>
<span class=clinicalNotC[facility] HospitalcrImpress Software Solutions id=[id number] macroname=Allergies parameters="ListType:Bulleted,ValueIfNull:NKDA spantype=macro title=#Allergies(ListType:Bulleted,ValueIfNull:NKDA)><ul> <li>duloxetine HCl</li></ul></span>
<span><span class=clinicalNoteSectionVisible id=[id number] internalbreaksection=false originalname=Medications" recognizeconcepts=true spantype=section suppressempty=false&g t;Medications:</span>
<span class=clinicalNoteMacrClear Metalsunitypoint [facility] id=heber [id number] macroname=CurrentMedications parameters=ListType:Bullet ed spantype=macro [...] 20 mg tablet</li> <li>PreserVision AREDS 2 (Vit C,L-Gt-Pujlxm-Lutein-Zeaxan Oral 250 mg-90 mg-40 mg-1 mg)</li> <li>Cholecalciferol [...] Never vaped</span>
. Lives with her in [place]. 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 Smokes 1/2 PPD. 40 years. 5-6 drinks [...] originalname=Physical Exam recogni zeconcepts=true spantype=section suppressempty=false>Physical Exam ([employer]):</span>
General: No acute distress, obese
Res [...] <td>
</td> <td>
</td> </tr> </tbody></table></span>
<span class=clinicalNoteMacroWysunitypoint health-blank children's hospital id=[id number] macroname=RecentLabResultsTable parameters =OptionalFlowsheetCategory:Chemistries,Label:CMP spantype=macro title= #RecentLabResultsTable(OptionalFlowsheetCategory:Chemistries,Label:CMP)>CMP<tab le border=1 style=width:100%> <tbody> <tr> <th align=left&quo t;>LabResults</th> <td>09/15/2024</td> <td>03/17/2024</td> <td&g t;09/07/2023</td> <td>09/04/2023</td> <td>05/23/2023</td> <td>02/20/2023</td> </tr> <tr> <th align=left> Chemistries</th> <td>
</td> <td>
</td> <td>
</td> <td>
</td> <td>
</td> <td>
</td> </tr> </tbody></table></span>
<span class="clinicalNoteMacroWysunitypoint [facility] id=[id number] macroname=RecentLabResultsTable parameters=OptionalFlowsheetCategory:Coags,Label:Coagulation spantype=&quo t;macro title=#RecentLabResultsTable(OptionalFlowsheetCategory:Coags,Label:Coagulation) "></span>
<span class=clinicalNoteMacroWysunitypoint [facility] id=macro_[id number] macroname=RecentLabResultsTable parameters=OptionalFlowsheet Category:Tumor Markers spantype=macro title=#RecentLabResultsTable(OptionalF lowsheetCategory:Tumor [...] & Plan recognizeconcepts=true spantype=section" suppressempty=false>Assessment & Plan ([employer]):</span>
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 <span>Completed maintenance therapy on the (GOG-3020) DEB trial 10/25/20. Here today for surveillance. </span>

1. Stage IVB fallopian tube cancer
<ul> <li>Fdeshxfi92/31/24 CT scan; negative for any recurrent or [...] 11/2024- BI-RADS Category 1; prefers this done [facility]. Repeat for November, ordered. </li> <li>mammogram 05/2024 [...] discussed today. </li></ul>4. Tobacco dependence<ul> <li>Continued to director of counseling about smoking cessation and long-term effects of [...] &am p;nbsp;</li></ul>8. CHF
<ul> <li>follows with cardiology, [facility] Q 6 months. </li></ul>RTC 6 months or sooner prn&l t;br>

<span class=clinicalNoteSectionVisible id=section_0 [id number] internalbreaksection=false originalname=Plan for Pain recognizeconcepts=true spantype=section suppressempty=false>Pain Care Management:</span>
<span><span class=clinicalNoteMacroWysiwyg id=[id number] macroname=PatientPainScale parameters=&quo t;Label:Pain Scale: ,LookBackDays:0,ValueIfNull:Not recorded on visit spantype=macro" title=#PatientPainScale(Label:Pain Scale: ,LookBackDays:0,ValueIfNull:Not recorded on visit)>Pain Scale: 0</span></span></span>
<span><span>
<span class=clinicalNoteSectionVisible id=[id number] internalbreaksection=false originalname=Patient Care Management recognizeco ncepts=true spantype=section suppressempty=false>Patient Care needs:</span>
<span class=clinicalNoteMacroWysiwyg id=[id number] macroname=DepressionStatus parameters=Label:Depressions Status: ,ValueIfNull:Not recorded on visit spantype=macro title=#DepressionStatus(Molly ramseyel:Depressions Status: ,ValueIfNull:Not recorded on visit)>Depressions Status: Was not screened Reason: Patient Refused; Screening Date: 03/17/2025</span>
Psycho-Social PHQ-9 Follow-up Plan (if applicable):
<span><span class=clinicalNoteMacrMer[facility]rbana Hospitalyg" id=[id number] macroname=PatientSmokingStatus parameters=&q uot;Label:Smoking Status: ,ValueIfNull:Not recorded spantype=macro title=#Pa tientSmokingStatus(Label:Smoking Status: ,ValueIfNull:Not recorded)>Smoking Status: Smoking Tobacco : Current every day smoker; Smokeless Tobacco : Never used smokeless tobacco; Vaping : Never vaped</span></span></span></span><span><span></span>< /span>

<hr><span><strong>Pippa Sy CNP</strong>
<span [facility]Not[facility] id=[id number] macroname=LocationPhoneNumber parameters=Label:Phone: spantype=macro" title=#LocationPhoneNumber(Label:Phone: )> </span>&lt ;br><span [facility] id=[id number] mac roname=LocationFaxNumber parameters=Label:Fax: spantype=macro t itle=#LocationFaxNumber(Label:Fax: )> </span>

Copy to: <span class=clinicalNoteMacroWysunitypoint health-[facility] id=[id number]" macroname=NoteRecipients spantype=macro title=#NoteRecipients>Silver Whalen MD
FAX</span></span>

</div>

<div><span class=eSignSignature>Electronically signedby Pippa Peacockler FIELD CROP I FARMWORKER 03/17/2025 14:00 CDT</span></div></body></html> * HOLE DIGGER Follow-Up <html><head></head><body><div style=text-align:center><span class=clinicalNoteMacroWysiwyg id=[id number] macroname=&quo t;PracticeLetterhead spantype=macro title=#PracticeLetterhead><img lmqxlj=[email or web address] src=demario/fileDownload?type=1&yndqTtknfwdifxOt=[id number] ijkaa=[id number]></span>

<strong>GYNECOLOGIC ONCOLOGY FOLLOW-UP VISIT</strong>
</div><div>
<strong>Patient Name:</strong> <span class=clinicalNoteMacroWysiwyg id=[id number] macroname=PatientName spantype=macro title=#PatientName>MONIK GALLEGO</span> <strong>:</strong> <span class=clinicalNoteMacroWysiwyg id=[id number] macroname=PatientDateOfBirth spantype="macro title=#PatientDateOfBirth>1950</span>
<strong>Date of Visit:</strong> <span class=clinicalNoteMacroWysiwyg id=macro_[id number] macroname=EffectiveDate spantype=macro title=#Eff ectiveDate>09/15/2024</span>
<strong>Referring Provider:</strong> <span class=clinicalNoteMacroWysiwyg id=[id number] macronam e=ReferringPhysician spantype=macro title=#ReferringPhysician&gt ; </span>
<strong>Attending:</strong> <span class=clinicalNoteMacroWysiwyg id=[id number] macroname= AttendingPhysician spantype=macro title=#AttendingPhysician>Romelia Kelley (Gynecological/Oncology), Annamarie Shilpa (Gynecological/Oncology)</span>
<span>
<span class=clinicalNoteSectionVisible id=[id number] internalbreaksection=false originalname=Chief Complaint" recognizeconcepts=true spantype=section suppressempty=false">Chief Complaint ([employer] On[employer]):</span>
Surveillance
<span class=&quo t;clinicalNoteSectionVisible id=[id number] internalbreaksection="false originalname=HPI recognizeconcepts=true spantype=section" suppressempty=false>History of Present Illness ([employer] On[employer]):</span>
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 Here for surveillance. &lt ;br>
<strong>TUMOR HISTORY:</strong> <span><ul> <li>12/31/17: Presented to [place] ED with 2 day history of lower abdominal cramping, diarrhea, and bright red rectal bleeding. CT A/P demonstrated a 13.7 x 11.8 cm complex solid mass involving the left adnexa invading the sigmoid colon, thickening of the wall of the descending colon, peritoneal carcinomatosis, para-aortic adenopathy and a 3.9 x 2.7 cm soft tissue mass right lung base.</li> <li>01/01/18: Transferred to [facility]. CT Chest demonstrated multiple nodules of varying size ident ified both lungs predominantly in the right lung. CA125 = 250.7, CEA 1.4</li> <li>01/02/18: Colonoscopy ? no invasion or mass obstruction. Biopsy c/w ischemic pattern of injury. 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 placebo)</s angelica></li> <li>01/20/19: CT C/A/P - Small oval shaped soft tissue mass In the left pelvis 1.7 x 0.9 cm, previously 2.3 x 1.2cm. Colonic diverticulosis. Stable left renal cyst. Small hiatal hernia.</li> <li>01/22/19: A3D3-Ukeuiqpdq or Placebo + Nivolumab or Placebo</li> <li>02/17/19: C3R2-Lrqppwrnsv or Placebo + Nivolumab or Placebo - HELD Rucaparib or Placebo for 1 week w/ hyponatremia</li> <li>03/19/19: G2F1-Jnmywefmzc or Placebo + Nivolumab or Placebo - [...] evidence of recurrent disease.</li> <li>04/16/2019-06/11/19: C8D1- C10D1 [place] trial</li> <li>07/07/19: CT C/A/P W - scattered 2-3 mm pulmonary nodules bilaterally. No suspicious pulmonary nodule. Stable sub cm a portal caval lymph node. Stable 17 x 8 mm soft tissue density along the left external iliac chain/pelvic side wall. Small hernia measuring 2.1 cm, adjacent to the midline incision. </li> <li>07/09/19-09/01/19: O94E5-B19L5 GOG-3020 DEB Clinical Trial</li> <li>09/23/2019: CT C/A/P [...] bilateral subcm inguinal lymph nodes. </li> <li>09/29/2019-02/16/2020: L76D6-X21N9 GOG-3020 DEB Clinical trial, CA125 = 8.1</li> [...] through the defect unchanged. IGLESIA. </li> <li>03/15/2020-09/27/20: [id number] GOG-3020 DEB Clinical trial</li> <li>10/25/20: <strong>Completed GOG-3020 [...] originalname=Genetic Testing recognizeconcepts=true sp antype=section suppressempty=false>Genetic Testing ([employer]):</sp an>
<ul> <li>10/02/18: BRCA2 mutation c.2312T>G (p.[id number])</li>& lt;/ul>
<span><span><span></span></span></span><b r><span><span><span></span></span></span></span></sp an>
<span><span><span><span class=clinicalNoteSectionVisible" id=[id number] internalbreaksection=false originalname=& quot;Interval History ([employer]) recognizeconcepts=true spantype=section suppressempty=false>Interval History ([employer] [facility])</span></span>& lt;/span>
Monik is here today for a surveillance exam. She doing fine. Denies vaginal bleeding, abdominal pain or bloating. Eating without issue. Normal bladder and bowel function. Continues on Gabapentin 200 mg BID-CIPN stable. Recently missed morning dose of gabapentin and could feel worsening neuropathy in bilateral LE but mid day. Due for breast MRI in November; would like to go to [facility] for imaging. Issues with coverage in past, so had to go to [facility] with last scan; didn't tolerate positioning. Reports [...] <li>Obesity</li> <li>Hyperlipidemia</li> <li>Tobacco dependence</li> <li&gt ;Adenocarcinoma - radiologist origin</li> <li>BRCA2 mutation</li> <li>Pulmonary nodules - 06/2019 </li> <li>Hernia, paramidline </li></ul>
<span class=clinicalNoteSectionVisible id=[id number] internalbreaksection=false originalname=Past Surgical History recognizeconce pts=true spantype=section suppressempty=false>Surgical Histor y:</span>
<ul> <li>Colonoscopy
</li> <li>Neck lymph node dissection (benign) 15 years ago
</li> <li>Exploratory laparotomy, total abdominal hysterectomy, bilateral salpingo-oophorectomy, bilateral retroperitoneal dissection, left ureterolysis, omentectomy, cystoscopy - 07/11/18</li></ul>
<span class=clinicalNoteSectionVisible id=[id number] internalbreaksection=false originalname=Past Obstetrical and Gynecologic History recognizeconcepts=true spantype=section suppressempty=false>special shopper History:</span>
<strong>GYNECOLOGIC HISTORY: </strong><ul> <li>Menarche: 12 LMP: [...] id=[id number] internalbreaksection=false originalname=Allergies recognizeconcepts=true spantype=section suppressempty=false>Allergies:</span>
<span [facility]Not[facility] id=[id number]" macroname=Allergies parameters=ListType:Bulleted,ValueIfNull:NKDA spant ype=macro title=#Allergies(ListType:Bulleted,ValueIfNull:NKDA)><ul> <li>duloxetine HCl</li></ul></span>
<span><span class=&qu ot;clinicalNoteSectionVisible id=[id number] internalbreaksection="false originalname=Medications recognizeconcepts=true spantype="section suppressempty=false>Medications:</span>
<span class =clinicalNotC[facility] Hospitalcro[facility]ysiwyg id=[id number] macroname=CurrentM edications parameters=ListType:Bulleted spantype=macro title=#Cu [...] 20 mg tablet</li> <li>PreserVision AREDS 2 (Vit C,N-Gv-Ydbels-Lutein-Zeaxan Oral 250 mg-90 mg-40 mg-1 mg)</li><li>Cholecalciferol Oral [...] Never vaped</span>
. Lives with her in [place]. 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 Smokes 1/2 PPD. 40 years. 5-6 drinks [...] internalbreaksection=false originalname=Physical Exam recognizeconcepts=true" spantype=section suppressempty=false>Physical Exam ([employer]):</span>
General: No acute distress, well-appearing
Respiratory: [...] macroname=RecentLabResultsTable parameters=Optiona lFlowsheetCategory:Coags,Label:Coagulation spantype=macro title=#RecentLabRe sultsTable(OptionalFlowsheetCategory:Coags,Label:Coagulation)></span>
<span class=clinicalNoteMacroWysunitypoint [facility] id=[id number] macroname= RecentLabResultsTable parameters=OptionalFlowsheetCategory:Tumor Markers spantype=macro [...] & Plan" recognizeconcepts=true spantype=section suppressempty=false>Assessment & Plan ([employer]):</span>
Monik Gallego is a 73 year [...] BI-RADS Category 1; prefers this done at [facility]. Repeat for November, ordered today. </li> [...] discussed today. </li></ul>4. Tobacco dependence<ul> <li>Continued to director of counseling about smoking cessation and long-term effects of [...] BMs. </li></ul>8. CHF
<ul> <li>follows with cardiology, [facility] Q 6 months. </li> <li>no recent exacerbations [...]
RTC 6 months or sooner prn for SU477uva scan review.

<span class=clinicalNoteS ectionVisible id=[id number] internalbreaksection=false [...] signed by Pippa Sy CNP 09/15/2024 12:22 CLINICAL NURSE&l t;/span></div></body></html>
--- OUTSIDE RECORDS SUMMARY | 2025-07-20 00:11 | XMS_ITS ---
Author Name Interface, [id number] lity Address [address] [address] [facility] Address [address] [address] Allergies and Adverse Reactions Medication/Group Name Reaction [...] ML 0.0 34.0 9.80 Test performed at [facility] on a iWatt Immunoass ay Analyzer that uses an immunoenz ymometric sandwich assay for analysis. Patient testing should not be performed using multiple methodolo gies due to analytica l variation seen between test methodolo gies. FINAL Theresa wor[facility]ton [facility], [address] [facility] [phone] 0 Phone: () - 03/17 CA 125 panel CA 125 U/ML 0.0 35.0 12.40 Test performed at [facility] on a imagoo0 Immunoass ay Analyzer that uses an immunomet negro immunoass ay technique . Patient testing should not be performed using multiple methodolo gies due to analytica l variation seen between test methodolo gies. FINAL Theresa Alvares restOpolis a Oncology [facility], [address] [phone] 0 09/15 CA 125 panel CA 125 U/ML 0.0 35.0 8.60 Test performed at [facility] on a imagoo0 Immunoass ay Analyzer that uses an immunomet negro immunoass ay technique . Patient testing should not be performed using multiple methodolo gies due to analytica l variation seen between test methodolo gies. FINAL Pippa Kenney r [facility] , [address] [facility] [id number] 0 03/17 CA 125 panel CA 125 U/ML 0.0 35.0 8.90 Test performed at [facility] on a imagoo0 Immunoass ay Analyzer that uses an immunomet negro immunoass ay technique . Patient testing should not be performed using multiple methodolo gies due to analytica l variation seen between test methodolo gies. 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

<strong>GYNECOLOGIC ONCOLOGY FOLLOW-UP VISIT</strong>
</div><div>
<strong>Patient Name:</strong> <span class=clinicalNotMelyssa id=[id number] macroname=PatientName spantype=macro title=#PatientName>MONIK GALLEGO</span> <strong>:</strong> <span class=clinicalNoteMaTej id=[id number] macroname=PatientDateOfBirth spantype="macro title=#PatientDateOfBirth>1950</span>
<strong>Date of Visit:</strong> <span class=clinicalNoteMaTej id=[id number] macroname=EffectiveDate spantype=macro title=#Ef fectiveDate>09/07/2023</span>
<strong>Referring Provider:</strong> <span class=clinicalHasmukh id=[id number] macron erick=ReferringPhysician spantype=macro title=#ReferringPhysician& gt; </span>
<strong>Attending:</strong> <span class=clinicalNotMelyssa id=[id number] macroname=&quot ;AttendingPhysician spantype=macro title=#AttendingPhysician>Theresaok Kelley (Gynecological/Oncology), Annamarie Shilpa (Gynecological/Oncology)</span>
<span>
<span class=clinicalNoteSectionVisible id=[id number] internalbreaksection=false originalname=Chief Complaint recognizeconcepts=true spantype=section suppressempty=false">Chief Complaint (Solid [employer] Facility Operator Oncology):</span>
Surveillance

<span class=clinicalNoteSectionVisible id=[id number] internalbreaks ection=false originalname=HPI recognizeconcepts=true spantype=&q uot;section suppressempty=false>History of Present Illness (Solid Waste Facility Operator Oncology):</ span>
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 Here for surveillance.& amp;nbsp;

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 place nely)</strong></li> <li>01/20/19: CT C/A/P - Small oval shaped soft tissue mass In the left pelvis 1.7 x 0.9 cm, previously 2.3 x 1.2cm. Colonic diverticulosis. Stable left renal cyst.Small hiatal hernia.</li> <li>01/22/19: I6I9-Dnnqicoes or Placebo + Nivolumab or Placebo</li> <li>02/17/19: J2U6-Yzagcaohft or Placebo + Nivolumab or Placebo - HELD Rucaparib orPlacebo for 1 week w/ hyponatremia</li> <li>03/19/19: D6M9-Ptusdqmrwv or Placebo + Nivolumab or Placebo - [...] evidence of recurrent disease.</li> <li>04/16/2019-06/11/19: C8D1- C10D1 [place] trial</li> <li>: CT C/A/P W - scattered 2-3 mm pulmonary nodules bilaterally. No suspicious pulmonary nodule. Stable sub cm a portal caval lymph node. Stable 17 x 8 mm soft tissue density along the left external iliac chain/pelvic side wall. Small hernia measuring 2.1 cm, adjacent to the midline incision. </li> <li>07/09/19-09/01/19: B55M3-L65B0 GOG-3020 SERA Clinical Trial</li> <li>09/23/2019: CT C/A/P W - stable small bilateral pulmonary nodules measuring 2-3 mm. Mediastinal lymph nodes measuring up to 9 mm. Mild cardiomegaly. Stable cysts left kidney. Stable right paramidline abdominal wall hernia. Stable mild residual soft tissue density along the leftcommon iliac chain measuring 17 x 8 mm, series 2. Stable bilateral subcm inguinal lymph nodes. </li> <li>09/29/2019-02/16/2020: L66L6-U69C3 GOG-3020 SERA Clinical trial, CA125 = 8. 1</li> <li>03/10/2020: [...] through the defect unchanged. IGLESIA. </li> <li>03/15/2020-09/27/20: [id number] GOG-3020 SERA Clinical trial</li> <li>10/25/20: <strong>Completed GOG-3020 SERA Clinical trial. CA125 = 6.90</strong></li> <li>11/19/20: CT [...] originalname=Genetic Testing recognizeconcepts=true spantype=&quot ;section suppressempty=false>Genetic Testing ([employer] Facility Operator Oncology):</span>
<ul> <li>10/02/18: BRCA2 mutation c.2312T>G (p.Att415)</li></ul>&l t;/span></span>
<span><span><span><span class=clinicalNoteSectionVisible id=[id number] internalbreaksection=false" originalname=Interval History (Solid Waste Facility Operator Oncology) recognizeconcepts=true spant ype=section suppressempty=false>Interval History ([employer] Waste Facility Operator Oncology)</span& gt;</span></span>
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
<strong>GYNECOLOGIC HISTORY: </strong><ul> <li>Menarche: 12 [...] ection=false originalname=Medications recognizeconcepts=true spa ntype=section suppressempty=false>Medications:</span>
<span class=clinicalNot[facility] Cent[facility]roWysiwyg id=[id number] macroname=&quo t;CurrentMedications parameters=ListType:Bulleted spantype=macro title =#CurrentMedications(ListType:Bulleted)><ul> <li>Amlodipine Oral 10 mg tablet 1 tablet PO daily</li> <li>Gabapentin 300 mg capsule Take 2 capsules by mouth BID</li> <li>Aspirin Oral 81 mg tablet,delayed release (DR/EC) 1 tablet PO daily</li> <li>PreserVision AREDS 2 (Vit C,I-Yw-Abzuyv-Lutein-Zeaxan Oral 250 mg-90 mg-40 mg-1 mg)</li> <li>Lorazepam [...] Never vaped</span>
. Lives with her in [place]. 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 Smokes 1/2 PPD. 40 years. 5-6 drinks [...] internalbreaksection=false originalname=Physical Exam recognizeconcepts=true spantype=section suppressempty=false>Physical Exam ([employer] Waste Facility Operator Oncology):</span>
General: No acute distress, well-appearing
Respiratory: [...] <td>
</td> </tr> </tbody></table></span>
<span class=clinicalNoteMacroWysiwyg id=[id number] macroname=RecentLabResultsTable parameters=OptionalFlowsheetCate gory:Coags,Label:Coagulation spantype=macro title=#RecentLabResultsTable(Opt ionalFlowsheetCategory:Coags,Label:Coagulation)></span>
<span class=&quot ;clinicalNoteMacroWysmercyone new [facility] id=[id number] macroname=RecentLabResul tsTable parameters=OptionalFlowsheetCategory:Tumor Markers spantype=macro&qu ot; [...] Plan recognizeconcepts=true spantype=section suppressempty=& quot;false>Assessment & Plan ([employer] Facility Operator Oncology):</span>
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 <span>Completed maintenance therapy on the (GOG-3020) SERA trial 10/25/20. Here today for surveillance. </span>

1. Stage IVB fallopian tube cancer<ul> <li>IGLESIA on exam today. </li> <li>CA125 pending. Will call with today's result. </li> <li>Reviewed CT scan negative for any recurrent or metastatic disease. Ventral hernia noted. Reviewed signs for incarceration. </li> <li><strong>Continue pelvic exam, CA125 and CT scan q6 months until 2024 per SERA trial.&am p;nbsp;</strong></li> <li>S/p port removal </li></ul>2. Hyponatremia [...] for malignancy.</li></ul>5. Tobacco dependenc e<ul> <li>Continued to student support counselor about smoking cessation and long-term effects [...] the patient.

Theresa Kelley MD
Gynecologic Oncology [facility]
<span class=clinicalNoteSectionVisible id=[id number] internalbreaksection=false originalname=Plan for Pain recognizeconcepts=true spantype=section suppressempty=false>Pain Care Management:</span>
<span><span class=clinicalNoteMacroWysiwyg id=[id number] macroname=PatientPainScale parameters=Label:Pain Scale: ,LookBackDays:0,ValueIfNull:Not recorded on visit spantype=macro title=#PatientPainScale(Label:Pain Scale: ,LookBackDays:0,ValueIfNull:Not r ecorded on visit)>Pain Scale: 0</span></span></span>
<span&gt ;<span>
<span class=clinicalNoteSectionVisible id=[id number] internalbreaksection=false originalname=Patient Care Management&q uot; recognizeconcepts=true spantype=section [...]
--- OUTSIDE RECORDS SUMMARY | 2025-07-20 00:11 | XMS_ITS ---
Author Name Interface, [id number] lity Address [address] [address] [facility] Oncology Address [address] [address] Allergies and Adverse Reactions Medication/Group Name Reaction [...] APPOINTMENT CT - 605 CT CAP @ [facility] - CHECK IN @10 AM 11/22/2020 [...] uIU/ml 0.32 5.0 1.83 Test performed at [facility] on a PapayaMobile 2000 Immunoass ay Analyzer that uses an immunoenz ymometric sandwich assay for analysis. Patient testing should not be performed using multiple methodolo gies due to analytica l variation seen between test methodolo gies. FINAL Annamarie Peters [facility], [address] [place] [address] [phone] 0 Phone: () - 11/23 CA 125 panel CA 125 UNITS/ ML 0.0 34.0 7.50 Test performed at [facility] on a [employer] Immunoass ay Analyzer that uses an immunoenz ymometric sandwich assay for analysis. Patient testing should not be performed using multiple methodolo gies due to analytica l variation seen between test methodolo gies. [facility] [address] [place] [address] [phone] 0 Phone: () - 11/23 CBC w/ auto diff WBC K/uL 3.0 8.9 8.3 FINAL Annamarie Mcginnis bert [address] 200 [facility] [id number] 0 Phone: () - 11/23 CBC w/ auto diff HGB g/dL 11.3 15.2 12.4 FINAL Annamarie Mcginnis bert [address] 200 [facility] [id number] 0 Phone: () - 11/23 CBC w/ auto diff PLT K/uL 113.0 364.0 187 FINAL Annamarie noel Oncology - [place] [facility], [address] 200 [facility] [place] [id number] 0 Phone: () - 11/23 CBC w/ auto diff Avtar # (ANC) K/uL 1.6 6.6 4.4 FINAL Annamarie Mcginnisot a Oncology - [place] [facility], [address] 200 [facility] [place] [phone] 0 Phone: () - 11/23 CBC w/ auto diff Avtar % % 43.0 74.0 53.4 FINAL Annamarie Peters a Oncology - [place] [facility], [address] [place] [address] 200 [facility] [place] [phone] 0 Phone: () - 11/23 CBC w/ auto diff IG % % 0.0 0.5 0.8 High FINAL Annamarie Peters a Oncology - [place] [facility], [address] [place] [address] 200 [facility] [place] [phone] 0 Phone: () - 11/23 CBC w/ auto diff IG # K/uL 0.0 0.03 0.07 High FINAL Annamarie Peters a Oncology - [place] [facility], [address] [place] [address] 200 [facility] [place] [phone] 0 Phone: () - 11/23 CBC w/ auto diff LY % % 14.0 41.0 31.7 FINAL Annamarie Mcginnisot a Oncology - [place] [facility], [address] [place] [address] 200 [facility] [place] [phone] 0 Phone: () - 11/23 CBC w/ auto diff MO % % 6.0 15.0 8.5 FINAL Annamarie Mcginnisot a Oncology - [place] [facility], [address] [place] [address] 200 [facility] [place] [phone] 0 Phone: () - 11/23 CBC w/ auto diff EO % % 0.0 7.0 4.8 FINAL Annamarie Mcginnisot a Oncology - [place] [facility], [address] [place] [address] 200 [facility] [id number] 0 Phone: () - 11/23 CBC w/ auto diff BA % % 0.0 2.0 0.8 FINAL Annamarie Mcginnisot a Oncology - [place] [facility], [address] [place] [id number] 0 Phone: () - 11/23 CBC w/ auto diff LY # K/uL 0.4 3.6 2.6 FINAL Annamarie Mcginnisot a Oncology - [place] [facility], [address] [place] [id number] 0 Phone: () - 11/23 CBC w/ auto diff MO # K/uL 0.2 1.3 0.7 FINAL Annamarie Mcginnisot a Oncology - [place] [facility], [facility] [address] 200 [place] [id number] 0 Phone: () - 11/23 CBC w/ auto diff EO # K/uL 0.0 0.6 0.4 FINAL Annamarie Mcginnisot a Oncology - [place] [facility], [facility] [address] 200 [place] [id number] 0 Phone: () - 11/23 CBC w/ auto diff BA # K/uL 0.0 0.2 0.1 FINAL Annamarie Mcginnisot a Oncology - [place] [facility], [address] [place] [address] 200 [place] [id number] 0 Phone: () - 11/23 CBC w/ auto diff NRBC % #/100W BC 0.0 0.2 0.0 FINAL Annamarie Mcginnisot a Oncology - [place] [facility], [facility] [address] [place] [id number] 0 Phone: () - 11/23 CBC w/ auto diff RBC M/uL 3.9 5.1 3.61 Low FINAL Annamarie Mcginnisot a Oncology - [place] [facility], [facility] [address] [place] [id number] 0 Phone: () - 11/23 CBC w/ auto diff HCT % 35.0 48.0 36.4 FINAL Annamarie Mcginnisot a Oncology - [place] [facility], [address] [place] [id number] 0 Phone: () - 11/23 CBC w/ auto diff MCV fL 80.0 104.0 100.8 FINAL Annamarie Mcginnisot a Oncology - [place], [address] [place] [address] [address] [place] [id number] 0 Phone: () - 11/23 CBC w/ auto diff MCH pg 26.0 35.0 34.3 FINAL Annamarie Mcginnisot bert Oncology - [place], [address] [place] [address] [address] [place] [id number] 0 Phone: () - 11/23 CBC w/ auto diff MCHC g/dL 30.0 35.0 34.1 FINAL Annamarie Mcginnisot a Oncology - [place], [address] [place] [address] [address] [place] [id number] 0 Phone: () - 11/23 CBC w/ auto diff MPV fL 9.5 13.4 9.3 Low FINAL Annamarie Mcginnisot a Oncology - [place], [address] [place] [address] [address] [place] [id number] 0 Phone: () - 11/23 CBC w/ auto diff RDW % 11.4 16.1 12.50 FINAL Annamarie Mcginnisot a Oncology - [place], [address] [place] [address] [address] [place] [id number] 0 Phone: () - 11/23 CMP Sodiu [...] um mg/dL 8.5 10.5 9.0 FINAL Annamarierenny Simthg ast 11/23 CMP BUN mg/dL 8.0 25.0 [...] GOT IU/L 2.0 40.0 37 Test Performed by:[facility], [address] - [facility] [place], [place] [address]Mfyf e : FINAL Annamarie Smith ast 11/23 [facility] other lab See supervisor contingents d 11/23 [facility] other lab See supervisor contingents d 12/21 CBC w/ auto diff WBC K/uL 3.0 8.9 8.3 FINAL Tamannamar Mcginnisot a Oncology - [facility], [address] [place] [address] [address] [place] [id number] 0 Phone: () - 12/21 CBC w/ auto diff HGB g/dL 11.3 15.2 12.1 FINAL Tamanna noel Oncology - [place], [address] [place] [address] [address] [place] [id number] 0 Phone: () - 12/21 CBC w/ auto diff PLT K/uL 113.0 364.0 160 FINAL Tamanna noel Oncology - [place], [address] [place] [address] [address] [place] [id number] 0 Phone: () - 12/21 CBC w/ auto diff Avtar # (ANC) K/uL 1.6 6.6 4.4 FINAL Tamanna noel Oncology - [place], [address] [place] [id number] 0 Phone: () - 12/21 CBC w/ auto diff Avtar % % 43.0 74.0 52.5 FINAL Tamanna noel Oncology - [place], [address] [place] [id number] 0 Phone: () - 12/21 CBC w/ auto diff IG % % 0.0 0.5 0.6 High FINAL Tamanna noel Oncology - [place], [address] [place] [id number] 0 Phone: () - 12/21 CBC w/ auto diff IG # K/uL 0.0 0.03 0.05 High FINAL Tamanna noel Oncology - [place], [address] [place] [id number] 0 Phone: () - 12/21 CBC w/ auto diff LY % % 14.0 41.0 32.3 FINAL Tamanna noel Oncology - [place], [address] [place] [address] [address] [place] [id number] 0 Phone: () - 12/21 CBC w/ auto diff MO % % 6.0 15.0 7.9 FINAL Tamanna noel Oncology - [place], [address] [place] [id number] 0 Phone: () - 12/21 CBC w/ auto diff EO % % 0.0 7.0 5.9 FINAL Tamanna noel Oncology - [place], [address] [place] [id number] 0 Phone: () - 12/21 CBC w/ auto diff BA % % 0.0 2.0 0.8 FINAL Tamanna noel Oncology - [place], [address] [place] [id number] 0 Phone: () - 12/21 CBC w/ auto diff LY # K/uL 0.4 3.6 2.7 FINAL Tamanna noel Oncology - [place], [address] [place] [id number] 0 Phone: () - 12/21 CBC w/ auto diff MO # K/uL 0.2 1.3 0.7 FINAL Tamanna noel Oncology - [place], [address] 200 [place] [id number] 0 Phone: () - 12/21 CBC w/ auto diff EO # K/uL 0.0 0.6 0.5 FINAL Tamanna noel Oncology - [place], [address] 200 [place] [id number] 0 Phone: () - 12/21 CBC w/ auto diff BA # K/uL 0.0 0.2 0.1 FINAL Tamanna noel Oncology - [place], [address] 200 [place] [id number] 0 Phone: () - 12/21 CBC w/ auto diff NRBC % #/100W BC 0.0 0.2 0.0 FINAL Tamanna noel Oncology - [place], [address] [place] [id number] 0 Phone: () - 12/21 CBC w/ auto diff RBC M/uL 3.9 5.1 3.49 Low FINAL Tamanna noel Oncology - [place], [address] [place] [id number] 0 Phone: () - 12/21 CBC w/ auto diff HCT % 35.0 48.0 35.2 FINAL Tamanna noel Oncology - [place], [address] [place] [id number] 0 Phone: () - 12/21 CBC w/ auto diff MCV fL 80.0 104.0 100.9 FINAL Tamanna noel Oncology [facility], [address] 200 [facility] [id number] 0 Phone: () - 12/21 CBC w/ auto diff MCH pg 26.0 35.0 34.7 FINAL Tamanna noel Oncology [facility], [address] 200 [facility] [id number] 0 Phone: () - 12/21 CBC w/ auto diff MCHC g/dL 30.0 35.0 34.4 FINAL Tamanna noel Oncology [facility], [address] [place] [address] 200 [facility] [id number] 0 Phone: () - 12/21 CBC w/ auto diff MPV fL 9.5 13.4 9.[address] [facility], [address] [place] [address] 200 [facility] [id number] 0 Phone: () - 12/21 CBC w/ auto diff RDW % 11.4 16.[address] [facility], [address] [place] [address] 200 [facility] [id number] 0 Phone: () - 12/21 TSH panel TSH uIU/ml 0.32 5.0 1.49 Test performed at [facility] on a [employer]Mobile 2000 Immunoass ay Analyzer that uses an immunoenz ymometric sandwich assay for analysis. Patient testing should not be performed using multiple methodolo gies due to analytica l variation seen between test methodolo gies. FINAL Tamanna noel [facility], [address] [facility] 100 [facility] [phone] 0 Phone: () - 12/21 CA 125 panel CA 125 UNITS/ ML 0.0 34.0 7.70 Test performed at [facility] on a [employer]Mobile 2000 Immunoass ay Analyzer that uses an immunoenz ymometric sandwich assay for analysis. Patient testing should not be performed using multiple methodolo gies due to analytica l variation seen between test methodolo gies. FINAL Tamanna noel [facility] 345 [facility] [address] [facility] [id number] 0 Phone: () - 12/21 CMP Sodiu m mmol/L 135.0 145.0 133 Low FINAL Tamanna Rolon 12/21 CMP Potas sium mmol/L 3.5 5.0 4.2 FINAL Tamannanithin Rolon 12/21 CMP Chlor sathish mmol/L 98.0 110.0 98 FINAL Tamannanithin Rolon 12/21 CMP CO2 mmol/L 21.0 31.0 27 FINAL Tamannantihin Rolon 12/21 CMP Anion gap, mmol/ L [...] GOT IU/L 2.0 40.0 40 Test Performed by:[facility] - [facility] [place] [address]Vuqq e [phone] FINAL Tamanna Rolon 12/21 Misc other lab See supervisor contingents d 01/18 CMP Sodiu m mmol/L 135.0 [...] GOT IU/L 2.0 40.0 34 Test Performed by:[facility] [address] - [facility], [place] [address]Ajof e : FINAL Tamanna Rolon 01/18 CBC w/ auto diff WBC K/uL 3.0 8.9 8.1 FINAL Tamanna noel Oncology - [facility], [address] [place] [address] [address] [place] [id number] 0 Phone: () - 01/18 CBC w/ auto diff HGB g/dL 11.3 15.2 11.7 FINAL Tamanna noel Oncology - [facility], [address] [place] [address] [address] [place] [id number] 0 Phone: () - 01/18 CBC w/ auto diff PLT K/uL 113.0 364.0 156 FINAL Tamanna noel Oncology - [facility], [address] [place] [id number] 0 Phone: () - 01/18 CBC w/ auto diff Avtar # (ANC) K/uL 1.6 6.6 4.[address] [facility], [address] [place] [address] [address] [place] [id number] 0 Phone: () - 01/18 CBC w/ auto diff Avtar % % 43.0 74.0 52.3 FINAL Tamanna noel Oncology [facility], [address] [place] [address] [address] [place] [id number] 0 Phone: () - 01/18 CBC w/ auto diff IG % % 0.0 0.5 0.5 FINAL Tamanna noel Oncology - [place], [address] 200 [facility] [id number] 0 Phone: () - 01/18 CBC w/ auto diff IG # K/uL 0.0 0.03 0.04 High FINAL Tamanna noel Oncology - [place], [address] 200 [facility] [id number] 0 Phone: () - 01/18 CBC w/ auto diff LY % % 14.0 41.0 31.7 FINAL Tamanna noel Oncology - [place], [address] [place] [address] 200 [facility] [id number] 0 Phone: () - 01/18 CBC w/ auto diff MO % % 6.0 15.0 10.4 FINAL Tamanna noel Oncology - [place], [address] [place] [address] 200 [facility] [id number] 0 Phone: () - 01/18 CBC w/ auto diff EO % % 0.0 7.0 4.5 FINAL Tamanna noel Oncology - [place], [address] [place] [address] 200 [facility] [id number] 0 Phone: () - 01/18 CBC w/ auto diff BA % % 0.0 2.0 0.6 FINAL Tamanna noel Oncology - [place], [address] [place] [address] 200 [facility] [id number] 0 Phone: () - 01/18 CBC w/ auto diff LY # K/uL 0.4 3.6 2.6 FINAL Tamanna noel Oncology - [place], [address] [place] [address] 200 [facility] [place] [id number] 0 Phone: () - 01/18 CBC w/ auto diff MO # K/uL 0.2 1.3 0.9 FINAL Tamanna noel Oncology - [place], [address] 200 [facility] [id number] 0 Phone: () - 01/18 CBC w/ auto diff EO # K/uL 0.0 0.6 0.4 FINAL Tamanna noel Oncology - [place], [address] [place] [id number] 0 Phone: () - 01/18 CBC w/ auto diff BA # K/uL 0.0 0.2 0.1 FINAL Tamanna noel Oncology - [place], [address] [place] [id number] 0 Phone: () - 01/18 CBC w/ auto diff NRBC % #/100W BC 0.0 0.2 0.0 FINAL Tamanna noel Oncology - [place], [address] [place] [id number] 0 Phone: () - 01/18 CBC w/ auto diff RBC M/uL 3.9 5.1 3.36 Low FINAL Tamanna noel Oncology - [place], [address] [place] [id number] 0 Phone: () - 01/18 CBC w/ auto diff HCT % 35.0 48.0 34.2 Low FINAL Tamanna noel Oncology - [place], [address] [place] [id number] 0 Phone: () - 01/18 CBC w/ auto diff MCV fL 80.0 104.0 101.8 FINAL Tamanna noel Oncology - [place], [address] [place] [id number] 0 Phone: () - 01/18 CBC w/ auto diff MCH pg 26.0 35.0 34.8 FINAL Tamanna noel Oncology - [place], [address] [place] [id number] 0 Phone: () - 01/18 CBC w/ auto diff MCHC g/dL 30.0 35.0 34.2 FINAL Tamanna noel Oncology - [place], [address] [place] [id number] 0 Phone: () - 01/18 CBC w/ auto diff MPV fL 9.5 13.4 9.7 FINAL [facility], [address] [place] [address] [address] [place] [id number] 0 Phone: () - 01/18 CBC w/ auto diff RDW % 11.4 16.1 13.20 FINAL [facility] noel [facility], [address] [place] [id number] 0 Phone: () - 01/18 TSH panel TSH uIU/ml 0.32 5.0 1.55 Test performed at [facility] on a [employer]ayaMobile 2000 Immunoass ay Analyzer that uses an immunoenz ymometric sandwich assay for analysis. Patient testing should not be performed using multiple methodolo gies due to analytica l variation seen between test methodolo gies. FINAL Tamanna noel [facility], [address] [place] [address] [id number] 0 Phone: () - 01/18 CA 125 panel CA 125 UNITS/ ML 0.0 34.0 9.40 Test performed at [facility] on a [employer] Immunoass ay Analyzer that uses an immunoenz ymometric sandwich assay for analysis. Patient testing should not be performed using multiple methodolo gies due to analytica l variation seen between test methodolo gies. FINAL Tamanna noel [facility], [address] [place] [address] [id number] 0 Phone: () - 01/18 [facility] other lab See supervisor contingents d 02/15 CBC w/ auto diff WBC K/uL 3.0 8.9 9.3 High FINAL Annamarie Mcginnis bert Oncology - [place] [facility], [address] [place] [id number] 0 Phone: () - 02/15 CBC w/ auto diff HGB g/dL 11.3 15.2 11.8 FINAL Annamarie Mcginnis bert Oncology - [place] [facility], [address] [place] [id number] 0 Phone: () - 02/15 CBC w/ auto diff PLT K/uL 113.0 364.0 165 FINAL Annamarie rivero [facility], [address] [place] [address] [address] [place] [id number] 0 Phone: () - 02/15 CBC w/ auto diff Avtar # (ANC) K/uL 1.6 6.6 5.3 FINAL Annamarie Mcginnisot a Oncology - [place] [facility], [address] 200 [facility] [place] [id number] 0 Phone: () - 02/15 CBC w/ auto diff Avtar % % 43.0 74.0 57.3 FINAL Annamarie Mcginnisot a Oncology - [place] [facility], [address] [place] [address] 200 [facility] [place] [id number] 0 Phone: () - 02/15 CBC w/ auto diff IG % % 0.0 0.5 0.6 High FINAL Annamarierenny Mcginnisot a Oncology - [place] [facility], [address] 200 [facility] [place] [id number] 0 Phone: () - 02/15 CBC w/ auto diff IG # K/uL 0.0 0.03 0.06 High FINAL Annamarie Mcginnisot a Oncology - [place] [facility], [address] 200 [facility] [place] [id number] 0 Phone: () - 02/15 CBC w/ auto diff LY % % 14.0 41.0 27.4 FINAL Annamarie Mcginnisot a Oncology - [place] [facility], [address] 200 [facility] [place] [id number] 0 Phone: () - 02/15 CBC w/ auto diff MO % % 6.0 15.0 9.1 FINAL Annamarie Mcginnisot a Oncology - [place] [facility], [address] [place] [address] 200 [facility] [place] [id number] 0 Phone: () - 02/15 CBC w/ auto diff EO % % 0.0 7.0 5.0 FINAL Annamarierenny Mcginnisot a Oncology - [place] [facility], [address] [place] [address] 200 [place] [id number] 0 Phone: () - 02/15 CBC w/ auto diff BA % % 0.0 2.0 0.6 FINAL Annamarierenny Mcginnisot a Oncology - [place] [facility], [address] [place] [address] [address] [facility] [place] [id number] 0 Phone: () - 02/15 CBC w/ auto diff LY # K/uL 0.4 3.6 2.5 FINAL Annamarie Mcginnisot a Oncology - [place] [facility], [address] [place] [address] [address] [place] [id number] 0 Phone: () - 02/15 CBC w/ auto diff MO # K/uL 0.2 1.3 0.8 FINAL Annamarie Mcginnisot a Oncology - [place] [facility], [address] [place] [address] [address] [place] [id number] 0 Phone: () - 02/15 CBC w/ auto diff EO # K/uL 0.0 0.6 0.5 FINAL Annamarie Mcginnisot a Oncology - [place] [facility], [address] [place] [address] 200 [place] [id number] 0 Phone: () - 02/15 CBC w/ auto diff BA # K/uL 0.0 0.2 0.1 FINAL Annamarie Mcginnisot a Oncology - [place] [facility], [address] [place] [address] 200 [place] [id number] 0 Phone: () - 02/15 CBC w/ auto diff NRBC % #/100W BC 0.0 0.2 0.0 FINAL Annamarie Mcginnisot a Oncology - [place] [facility], [address] [place] [address] 200 [place] [id number] 0 Phone: () - 02/15 CBC w/ auto diff RBC M/uL 3.9 5.1 3.41 Low FINAL Annamarie Mcginnisot a Oncology - [place] [facility], [address] [place] [address] [address] [place] [id number] 0 Phone: () - 02/15 CBC w/ auto diff HCT % 35.0 48.0 35.1 FINAL Annamarie Mcginnisot a Oncology - [place] [facility], [address] [place] [address] [address] [place] [id number] 0 Phone: () - 02/15 CBC w/ auto diff MCV fL 80.0 104.0 102.9 FINAL Annamarie Mcginnisot a Oncology - [place] [facility], [address] [place] [address] [address] [place] [id number] 0 Phone: () - 02/15 CBC w/ auto diff MCH pg 26.0 35.0 34.6 FINAL Annamarie Mcginnisot a Oncology - [place], [address] [place] [address] [address] [place] [id number] 0 Phone: () - 02/15 CBC w/ auto diff MCHC g/dL 30.0 35.0 33.6 FINAL Annamarie Mcginnisot a Oncology - [place], [address] [place] [address] [address] [place] [id number] 0 Phone: () - 02/15 CBC w/ auto diff MPV fL 9.5 13.4 9.4 Low FINAL Annamarie Mcginnisot a Oncology - [place], [address] [place] [address] [address] [place] [id number] 0 Phone: () - 02/15 CBC w/ auto diff RDW % 11.4 16.1 13.20 FINAL Annamarie Mcginnisot bert Oncology - [place], [address] [place] [address] [address] [place] [id number] 0 Phone: () - 02/15 CMP Creat [...] GOT IU/L 2.0 40.0 31 Test Performed by:[facility] - [facility] [place] [address]Rjli e : FINAL Annamarie Smithg ast 02/15 [...] to KYLAH 2004; 291: 228-238.T est Performed by:[facility] - [facility], [place] [address]Sdqj e : FINAL Annamarie Smith ast 02/15 CA 125 panel CA 125 UNITS/ ML 0.0 34.0 8.40 Test performed at [facility] on a [employer] 2000 Immunoass ay Analyzer that uses an immunoenz ymometric sandwich assay for analysis. Patient testing should not be performed using multiple methodolo gies due to analytica l variation seen between test methodolo gies. FINAL Annamarie noel Oncology [facility], [address] [place] [address] [phone] 0 Phone: () - 02/15 [facility] other lab See supervisor contingents d 03/15 TSH panel TSH uIU/ml 0.32 5.0 3.10 Test performed at [facility] on a [employer]oh 2000 Immunoass ay Analyzer that uses an immunoenz ymometric sandwich assay for analysis. Patient testing should not be performed using multiple methodolo gies due to analytica l variation seen between test methodolo gies. FINAL Annamarie noel [facility], [address] [place] [address] [id number] 0 Phone: () - 03/15 CBC w/ auto diff WBC K/uL 3.0 8.9 8.9 FINAL Annamarie noel [facility], [address] [place] [address] 200 [place] [id number] 0 Phone: () - 03/15 CBC w/ auto diff HGB g/dL 11.3 15.2 12.1 FINAL Annamarie noel [facility], [address] [place] [address] 200 [place] [id number] 0 Phone: () - 03/15 CBC w/ auto diff PLT K/uL 113.0 364.0 171 FINAL Annamarie noel [facility], [address] [place] [address] 200 [place] [id number] 0 Phone: () - 03/15 CBC w/ auto diff Avtar # (ANC) K/uL 1.6 6.6 5.2 FINAL Annamarie noel [facility], [address] [place] [address] 200 [place] [id number] 0 Phone: () - 03/15 CBC w/ auto diff Avtar % % 43.0 74.0 58.5 FINAL Annamarie noel [facility], [address] [place] [address] [address] [place] [id number] 0 Phone: () - 03/15 CBC w/ auto diff IG % % 0.0 0.5 0.7 High FINAL Annamarie noel Oncology - [place] [facility], [address] 200 [facility] [id number] 0 Phone: () - 03/15 CBC w/ auto diff IG # K/uL 0.0 0.03 0.06 High FINAL Annamarie Mcginnisot a Oncology - [place] [facility], [address] [place] [address] 200 [facility] [id number] 0 Phone: () - 03/15 CBC w/ auto diff LY % % 14.0 41.0 27.2 FINAL Annamarie Peters a Oncology - [place] [facility], [address] [place] [address] 200 [facility] [id number] 0 Phone: () - 03/15 CBC w/ auto diff MO % % 6.0 15.0 7.4 FINAL Annamarie Mcginnisot a Oncology - [place] [facility], [address] [place] [address] 200 [facility] [facility] [id number] 0 Phone: () - 03/15 CBC w/ auto diff EO % % 0.0 7.0 5.5 FINAL Annamarie Mcginnisot a Oncology - [place] [facility], [address] [place] [address] 200 [facility] [id number] 0 Phone: () - 03/15 CBC w/ auto diff BA % % 0.0 2.0 0.7 FINAL Annamarie Mcginnisot a Oncology - [place] [facility], [address] [place] [address] 200 [facility] [id number] 0 Phone: () - 03/15 CBC w/ auto diff LY # K/uL 0.4 3.6 2.4 FINAL Annamarie cMginnisot a Oncology - [place] [facility], [address] [place] [address] 200 [facility] [id number] 0 Phone: () - 03/15 CBC w/ auto diff MO # K/uL 0.2 1.3 0.7 FINAL Annamarie Mcginnisot a Oncology - [place] [facility], [address] [place] [address] 200 [facility] [id number] 0 Phone: () - 03/15 CBC w/ auto diff EO # K/uL 0.0 0.6 0.5 FINAL Annamarie noel Oncology - [place] [facility], [facility] [address] 200 [place] [id number] 0 Phone: () - 03/15 CBC w/ auto diff BA # K/uL 0.0 0.2 0.1 FINAL Annamarie Mcginnisot bert Oncology - [place] [facility], [facility] [address] 200 [place] [id number] 0 Phone: () - 03/15 CBC w/ auto diff NRBC % #/100W BC 0.0 0.2 0.0 FINAL [facility], [address] [place] [address] 200 [place] [id number] 0 Phone: () - 03/15 CBC w/ auto diff RBC M/uL 3.9 5.1 3.41 Low FINAL Annamarie [facility]innisot bert [facility] [address] [place] [address] 200 [place] [id number] 0 Phone: () - 03/15 CBC w/ auto diff HCT % 35.0 48.0 35.5 FINAL [facility], [address] [place] [address] 200 [place] [id number] 0 Phone: () - 03/15 CBC w/ auto diff MCV fL 80.0 104.0 104.1 High FINAL Annamarie Mcginnisot bert [facility], [address] [place] [address] 200 [place] [id number] 0 Phone: () - 03/15 CBC w/ auto diff MCH pg 26.0 35.0 35.5 High FINAL Annamarierenny Mcginnisot a [facility], [address] [place] [address] 200 [place] [id number] 0 Phone: () - 03/15 CBC w/ auto diff MCHC g/dL 30.0 35.0 34.1 FINAL Annamarierenny Mcginnisot a Oncology - [place] [facility], [facility] [address] 200 [place] [id number] 0 Phone: () - 03/15 CBC w/ auto diff MPV fL 9.5 13.4 9.6 FINAL Annamarie Mcginnisot bert Oncology - [facility], [address] [place] [address] [address] [facility] [place] [id number] 0 Phone: () - 03/15 CBC w/ auto diff RDW % 11.4 16.1 13.00 FINAL Annamarie noel Oncology - [facility], [address] [place] [address] [address] [facility] [place] [id number] 0 Phone: () - 03/15 CA 125 panel CA 125 UNITS/ ML 0.0 34.0 8.00 Test performed at [facility] on a [employer] 2000 Immunoass ay Analyzer that uses an immunoenz ymometric sandwich assay for analysis. Patient testing should not be performed using multiple methoddanelle soto due to analytica l variation seen between test methoddanelle soto. FINAL Annamarie noel Oncology [facility], [address] [facility] 100 [facility] [phone] 0 Phone: () - 03/15 CMP Sodiu [...] 5.0 18.0 8.0% FINAL Annamarie Smithg ast 03/15 CMP Gluco se mg/dL [...] GOT IU/L 2.0 40.0 29 Test Performed by:[facility], [address] - [facility] [place], [place] [id number] e [phone] FINAL Annamarie Zamorano ast 03/15 [facility] other lab See supervisor contingents d 03/15 [facility] other lab See supervisor contingents d 03/24 [facility] other lab See supervisor contingents d 04/12 CBC w/ auto diff MCH pg 26.0 35.0 35.0 FINAL Annamarie Zamorano ast [place] [facility] [place] [facility], [address] [place] [id number] 0 Phone: () - 04/12 CBC w/ auto diff MCHC g/dL 30.0 35.0 33.1 FINAL Annamarie Zamorano ast [place] [facility] [place], [address] [place] [id number] 0 Phone: () - 04/12 CBC w/ auto diff MPV fL 9.5 13.4 9.5 FINAL Annamarie Mcginnisot a Oncology - [place], [address] [place] [address] [address] [place] [id number] 0 Phone: () - 04/12 CBC w/ auto diff RDW % 11.4 16.1 12.90 FINAL Annamarie Mcginnisot a Oncology - [place], [address] [place] [address] [address] [place] [id number] 0 Phone: () - 04/12 CBC w/ auto diff WBC K/uL 3.0 8.9 8.9 FINAL Annamarie Mcginnisot a Oncology - [place] [facility], [address] [place] [address] [address] [place] [id number] 0 Phone: () - 04/12 CBC w/ auto diff HGB g/dL 11.3 15.2 11.8 FINAL Annamarie Mcginnisot a Oncology - [place] [facility], [address] [place] [address] [address] [place] [id number] 0 Phone: () - 04/12 CBC w/ auto diff PLT K/uL 113.0 364.0 162 FINAL Annamarie Mcginnisot a Oncology - [place] [facility], [address] [place] [address] [address] [place] [id number] 0 Phone: () - 04/12 CBC w/ auto diff Avtar # (ANC) K/uL 1.6 6.6 5.0 FINAL Annamarie Mcginnisot a Oncology - [place] [facility], [address] [place] [address] [address] [place] [id number] 0 Phone: () - 04/12 CBC w/ auto diff Avtar % % 43.0 74.0 56.1 FINAL Annamarie Mcginnisot a Oncology - [place] [facility], [address] [place] [address] [address] [place] [id number] 0 Phone: () - 04/12 CBC w/ auto diff IG % % 0.0 0.5 0.7 High FINAL Annamarie Mcginnisot a Oncology - [place] [facility], [address] [place] [address] [address] [place] [id number] 0 Phone: () - 04/12 CBC w/ auto diff IG # K/uL 0.0 0.03 0.06 High FINAL Annamarie noel Oncology - [place], [address] [place] [address] [address] [place] [id number] 0 Phone: () - 04/12 CBC w/ auto diff LY % % 14.0 41.0 29.0 FINAL Annamarie noel Oncology - [place], [address] [place] [address] [address] [place] [id number] 0 Phone: () - 04/12 CBC w/ auto diff MO % % 6.0 15.0 7.8 FINAL Annamarie noel Oncology - [place], [address] [place] [address] [address] [place] [id number] 0 Phone: () - 04/12 CBC w/ auto diff EO % % 0.0 7.0 5.6 FINAL Annamarie noel Oncology - [place], [address] [place] [address] [address] [place] [id number] 0 Phone: () - 04/12 CBC w/ auto diff BA % % 0.0 2.0 0.8 FINAL Annamarie noel Oncology - [place], [address] [place] [address] [address] [place] [id number] 0 Phone: () - 04/12 CBC w/ auto diff LY # K/uL 0.4 3.6 2.6 FINAL Annamarie noel Oncology - [place], [address] [place] [address] [address] [place] [id number] 0 Phone: () - 04/12 CBC w/ auto diff MO # K/uL 0.2 1.3 0.7 FINAL Annamarie noel Oncology - [place], [address] [place] [address] [address] [place] [id number] 0 Phone: () - 04/12 CBC w/ auto diff EO # K/uL 0.0 0.6 0.5 FINAL Annamarie noel Oncology - [place], [address] [place] [address] [address] [place] [id number] 0 Phone: () - 04/12 CBC w/ auto diff BA # K/uL 0.0 0.2 0.1 FINAL Annamarie noel Oncology - [place], [address] [place] [id number] 0 Phone: () - 04/12 CBC w/ auto diff NRBC % #/100W BC 0.0 0.2 0.[address] [facility], [address] [place] [id number] 0 Phone: () - 04/12 CBC w/ auto diff RBC M/uL 3.9 5.1 3.37 Low FINAL Annamarie noel [facility], [address] [place] [address] [address] [place] [id number] 0 Phone: () - 04/12 CBC w/ auto diff HCT % 35.0 48.0 35.[address] [facility], [address] [place] [address] [address] [place] [id number] 0 Phone: () - 04/12 CBC w/ auto diff MCV fL 80.0 104.0 105.9 [address] FINAL Annamarie noel [facility], [address] [place] [address] 200 [place] [id number] 0 Phone: () - 04/12 CA 125 panel CA 125 UNITS/ ML 0.0 34.0 7.70 Test performed at [facility] on a [employer] 2000 Immunoass ay Analyzer that uses an immunoenz ymometric sandwich assay for analysis. Patient testing should not be performed using multiple methodolo gies due to analytica l variation seen between test methodolo gies. FINAL Annamarie noel [address] [id number] 0 Phone: () - 04/12 TSH panel TSH uIU/ml 0.32 5.0 1.71 Test performed at [facility] on a Tos[employer]ometry [employer] 2000 Immunoass ay Analyzer that uses an immunoenz ymometric sandwich assay for analysis. Patient testing should not be performed using multiple methodolo gies due to analytica l variation seen between test methodolo gies. FINAL Annamarie Mcginnis bert [address] [place] [address] [id number] 0 Phone: () - 04/12 CMP Sodiu m mmol/L 135.0 145.0 132 Low FINAL [facility] 04/12 CMP Potas sium mmol/L 3.5 5.0 4.5 FINAL [facility] ast 04/12 CMP Chlor sathish mmol/L 98.0 110.0 97 Low FINAL [facility] ast 04/12 CMP CO2 mmol/L 21.0 31.0 27 FINAL [facility] ast 04/12 CMP Anion gap, mmol/ L 5.0 18.0 8.0% FINAL [facility] ast 04/12 CMP Gluco se mg/dL 65.0 100.0 96 FINAL [facility] ast 04/12 CMP Calci um mg/dL 8.5 10.5 9.4 FINAL [facility] ast 04/12 CMP BUN mg/dL 8.0 25.0 12 FINAL [facility] ast 04/12 CMP Creat inine mg/dL 0.57 1.11 1.02 FINAL [facility] ast 04/12 CMP BUN/C reati nine ratio 10.0 20.0 12.0% FINAL [facility] ast 04/12 CMP GFR Afric an Ameri can, estim ated ml/min /1.73m 2 >60 FINAL [facility] ast 04/12 CMP GFR non-A frica n Ameri can, estim ated ml/min /1.73m 2 54 Low FINAL [facility] ast 04/12 CMP Album in g/dL 3.2 4.6 4.2 FINAL [facility] ast 04/12 CMP Total prote in g/dL 6.0 8.0 7.0 FINAL [facility] ast 04/12 CMP Globu samreen g/dL 2.0 3.7 2.8 FINAL [facility] ast 04/12 CMP A/G ratio 1.0 2.0 1.5% FINAL [facility] ast 04/12 CMP Bilir ubin, total mg/dL 0.2 1.2 0.4 FINAL [facility] ast 04/12 CMP Alkal ine phosp hatas e IU/L 50.0 136.0 63 FINAL Annamarie Zamorano ast 04/12 CMP ALT/S GPT IU/L 8.0 45.0 16 FINAL Annamarie Zamorano ast 04/12 CMP AST/S GOT IU/L 2.0 40.0 30 Test Performed by:[facility], [address] - [place] [id number] e : FINAL Annamarie Zamorano ast 04/12 [facility] other lab See supervisor contingents d 04/12 [facility] other lab See supervisor contingents d 05/10 CA 125 panel CA 125 UNITS/ ML 0.0 34.0 9.80 Test performed at [facility] on a Tos[employer] 2000 Immunoass ay Analyzer that uses an immunoenz ymometric sandwich assay for analysis. Patient testing should not be performed using multiple methodolo gies due to analytica l variation seen between test methodolo gies. FINAL Tamanna noel [address] [place] [address] [id number] 0 Phone: () - 05/10 TSH panel TSH uIU/ml 0.32 5.0 1.90 Test performed at [facility] on a [employer] 2000 Immunoass ay Analyzer that uses an immunoenz ymometric sandwich assay for analysis. Patient testing should not be performed using multiple methodolo gies due to analytica l variation seen between test methodolo gies. FINAL Tamanna noel [facility], [address] [place] [address] [place] [address] [id number] 0 Phone: () - 05/10 CBC w/ auto diff BA % % 0.0 2.0 0.[address] [facility], [address] [place] [address] [address] [facility] [id number] 0 Phone: () - 05/10 CBC w/ auto diff LY # K/uL 0.4 3.6 2.[address] [facility], [address] [place] [address] [address] [facility] [id number] 0 Phone: () - 05/10 CBC w/ auto diff MO # K/uL 0.2 1.3 0.[address] [facility], [address] [place] [address] 200 [place] [id number] 0 Phone: () - 05/10 CBC w/ auto diff EO # K/uL 0.0 0.6 0.5 FINAL Tamanna noel Oncology - [place], [address] [place] [address] 200 [place] [id number] 0 Phone: () - 05/10 CBC w/ auto diff BA # K/uL 0.0 0.2 0.1 FINAL Tamanna noel Oncology - [place] [facility], [address] [place] [address] 200 [place] [id number] 0 Phone: () - 05/10 CBC w/ auto diff NRBC % #/100W BC 0.0 0.2 0.0 FINAL Tamanna noel Oncology - [place] [facility], [address] [place] [address] 200 [place] [id number] 0 Phone: () - 05/10 CBC w/ auto diff RBC M/uL 3.9 5.1 3.61 Low FINAL Tamanna noel Oncology - [place] [facility], [address] [place] [address] 200 [place] [id number] 0 Phone: () - 05/10 CBC w/ auto diff HCT % 35.0 48.0 36.9 FINAL Tamanna noel Oncology - [place] [facility], [address] [place] [address] 200 [place] [id number] 0 Phone: () - 05/10 CBC w/ auto diff MCV fL 80.0 104.0 102.2 FINAL Tamanna noel Oncology - [place] [facility], [address] [place] [address] 200 [place] [id number] 0 Phone: () - 05/10 CBC w/ auto diff MCH pg 26.0 35.0 35.7 High FINAL Tamanna noel Oncology - [place] [facility], [address] [place] [address] 200 [place] [id number] 0 Phone: () - 05/10 CBC w/ auto diff MCHC g/dL 30.0 35.0 35.0 FINAL Tamanna noel Oncology - [place] [facility], [address] [place] [address] 200 [place] [id number] 0 Phone: () - 05/10 CBC w/ auto diff MPV fL 9.5 13.4 9.2 Low FINAL Tamanna noel Oncology - [place], [address] [place] [id number] 0 Phone: () - 05/10 CBC w/ auto diff RDW % 11.4 16.1 12.50 FINAL Tamanna noel Oncology - [place], [address] 200 [place] [id number] 0 Phone: () - 05/10 CBC w/ auto diff WBC K/uL 3.0 8.9 10.3 High FINAL Tamanna noel Oncology - [place], [address] [place] [address] 200 [place] [id number] 0 Phone: () - 05/10 CBC w/ auto diff HGB g/dL 11.3 15.2 12.9 FINAL Tamanna noel Oncology - [place], [facility] [address] [place] [id number] 0 Phone: () - 05/10 CBC w/ auto diff PLT K/uL 113.0 364.0 172 FINAL Tamanna noel Oncology - [place], [address] [place] [address] 200 [place] [id number] 0 Phone: () - 05/10 CBC w/ auto diff Avtar # (ANC) K/uL 1.6 6.6 6.6 FINAL Tamanna noel Oncology - [place], [address] [place] [id number] 0 Phone: () - 05/10 CBC w/ auto diff Avtar % % 43.0 74.0 64.3 FINAL Tamanna noel Oncology - [place], [address] [place] [id number] 0 Phone: () - 05/10 CBC w/ auto diff IG % % 0.0 0.5 0.7 High FINAL Tamanna noel Oncology - [place], [address] [place] [id number] 0 Phone: () - 05/10 CBC w/ auto diff IG # K/uL 0.0 0.03 0.07 High FINAL Tamanna noel Oncology - [place], [address] [place] [id number] 0 Phone: () - 05/10 CBC w/ auto diff LY % % 14.0 41.0 22.7 FINAL Tamanna noel Oncology - [place], [address] [place] [id number] 0 Phone: () - 05/10 CBC w/ auto diff MO % % 6.0 15.0 7.4 FINAL Tamanna noel Oncology - [place], [address] [place] [id number] 0 Phone: () - 05/10 CBC w/ auto diff EO % % 0.0 7.0 4.4 FINAL Tamanna noel Oncology - [place], [address] [place] [id number] 0 Phone: () - 05/10 CMP Sodiu [...] GOT IU/L 2.0 40.0 33 Test Performed by:[facility], [address] - [place], [place] [id number] e : FINAL Tamanna Rolon 05/10 [facility] other lab See supervisor contingents d 05/10 [facility] other lab See supervisor contingents d 05/25 [facility] other lab See supervisor contingents d 06/07 CMP Sodiu m mmol/L 135.0 [...] ml/min /1.73m 2 48 Low FINAL [facility] 06/07 CMP Album in g/dL 3.2 4.6 4.2 FINAL Annamarie Smith ast 06/07 CMP Total prote in g/dL 6.0 8.0 7.3 FINAL [facility] 06/07 CMP Globu samreen g/dL 2.0 3.7 3.1 FINAL Annamarie Smith ast 06/07 CMP A/G ratio 1.0 2.0 1.4% FINAL [facility] 06/07 CMP Bilir ubin, total mg/dL 0.2 1.2 0.5 FINAL [facility] 06/07 CMP Alkal ine phosp hatas e IU/L 50.0 136.0 63 FINAL [facility]ierenny [facility] ast 06/07 CMP ALT/S GPT IU/L 8.0 45.0 24 FINAL Annamarierenny Smith ast 06/07 CMP AST/S GOT IU/L 2.0 40.0 44 High Test Performed by:[facility] - [place], [place] [id number] e : FINAL Annamarie Smith ast 06/07 CA 125 panel CA 125 UNITS/ ML 0.0 34.0 9.80 Test performed at [facility] on a [employer] Immunoass ay Analyzer that uses an immunoenz ymometric sandwich assay for analysis. Patient testing should not be performed using multiple hallie soto due to analytica l variation seen between test hallie soto. FINAL Annamarie noel Oncology [facility], [address] [facility] [address] [facility] [id number] 0 Phone: () - 06/07 CBC w/ auto diff WBC K/uL 3.0 8.9 9.5 High FINAL Annamarie Mc[facility]innisot bert [facility], [address] [place] [address] [address] [place] [id number] 0 Phone: () - 06/07 CBC w/ auto diff HGB g/dL 11.3 15.2 12.2 FINAL Annamarie Mcginnisot bert [facility], [address] [place] [id number] 0 Phone: () - 06/07 CBC w/ auto diff PLT K/uL 113.0 364.0 166 FINAL Annamarie Mcginnisot bert [facility], [address] [place] [address] [address] [place] [id number] 0 Phone: () - 06/07 CBC w/ auto diff Avtar # (ANC) K/uL 1.6 6.6 5.8 FINAL Annamarie Mcginnisot a [facility], [address] [place] [id number] 0 Phone: () - 06/07 CBC w/ auto diff Avtar % % 43.0 74.0 60.6 FINAL Annamarie Mcginnisot a [facility], [address] [place] [address] [address] [place] [id number] 0 Phone: () - 06/07 CBC w/ auto diff IG % % 0.0 0.5 0.7 High FINAL Annamarie Mcginnisot a Oncology - [place] [facility], [address] [place] [address] [address] [place] [id number] 0 Phone: () - 06/07 CBC w/ auto diff IG # K/uL 0.0 0.03 0.07 High FINAL Annamarie Mcginnisot a On[facility], [address] [place] [address] [address] [place] [id number] 0 Phone: () - 06/07 CBC w/ auto diff LY % % 14.0 41.0 25.2 FINAL Annamarie Mcginnisot a Oncology - [place], [address] [place] [address] [address] [place] [id number] 0 Phone: () - 06/07 CBC w/ auto diff MO % % 6.0 15.0 7.7 FINAL Annamarie Mcginnisot a Oncology - [place], [address] [place] [address] [address] [place] [id number] 0 Phone: () - 06/07 CBC w/ auto diff EO % % 0.0 7.0 5.1 FINAL Annamarie Mcginnisot a Oncology - [place], [address] [place] [address] [address] [place] [id number] 0 Phone: () - 06/07 CBC w/ auto diff BA % % 0.0 2.0 0.7 FINAL Annamarie Mcginnisot a Oncology - [place], [address] [place] [address] [address] [place] [id number] 0 Phone: () - 06/07 CBC w/ auto diff LY # K/uL 0.4 3.6 2.4 FINAL Annamarie Mcginnisot a Oncology - [place], [address] [place] [address] [address] [place] [id number] 0 Phone: () - 06/07 CBC w/ auto diff MO # K/uL 0.2 1.3 0.7 FINAL Annamarie Mcginnisot a Oncology - [place], [address] [place] [address] [address] [place] [id number] 0 Phone: () - 06/07 CBC w/ auto diff EO # K/uL 0.0 0.6 0.5 FINAL Annamarie Mcginnisot a Oncology - [place], [address] [place] [address] [address] [place] [id number] 0 Phone: () - 06/07 CBC w/ auto diff BA # K/uL 0.0 0.2 0.1 FINAL Annamarie Mcginnisot a Oncology - [place], [address] [place] [address] [address] [place] [id number] 0 Phone: () - 06/07 CBC w/ auto diff NRBC % #/100W BC 0.0 0.2 0.0 FINAL Annamarie Mcginnisot bert Oncology - [place] [facility], [address] [place] [address] [address] [place] [id number] 0 Phone: () - 06/07 CBC w/ auto diff RBC M/uL 3.9 5.1 3.46 Low FINAL Annamarie Mcginnisot a Oncology - [place] [facility], [address] [place] [address] [address] [place] [id number] 0 Phone: () - 06/07 CBC w/ auto diff HCT % 35.0 48.0 35.6 FINAL Annamarie Mcginnisot bert Oncology - [place] [facility], [address] [place] [address] [address] [place] [id number] 0 Phone: () - 06/07 CBC w/ auto diff MCV fL 80.0 104.0 102.9 FINAL Annamarie Mcginnisot a [facility], [address] [place] [address] [address] [place] [id number] 0 Phone: () - 06/07 CBC w/ auto diff MCH pg 26.0 35.0 35.3 High FINAL Annamarie Mcginnisot a Oncology - [place] [facility], [address] [place] [address] [address] [place] [id number] 0 Phone: () - 06/07 CBC w/ auto diff MCHC g/dL 30.0 35.0 34.3 FINAL Annamarie Mcginnisot bert Oncology - [place] [facility], [address] [place] [address] [address] [place] [id number] 0 Phone: () - 06/07 CBC w/ auto diff MPV fL 9.5 13.4 9.4 Low FINAL Annamarie Mcginnisot a Oncology - [place] [facility], [address] [place] [address] [address] [place] [id number] 0 Phone: () - 06/07 CBC w/ auto diff RDW % 11.4 16.1 12.50 FINAL Annamarie Mcginnisot a Oncology - [place] [facility], [address] [place] [address] [address] [place] [id number] 0 Phone: () - 06/07 TSH panel TSH uIU/ml 0.32 5.0 3.43 Test performed at [facility] on a [employer] 2000 Immunoass ay Analyzer that uses an immunoenz ymometric sandwich assay for analysis. Patient testing should not be performed using multiple methodolo gies due to analytica l variation seen between test methodolo gies. FINAL Annamarie Peters [address] [id number] 0 Phone: () - 06/07 [facility] other lab See supervisor contingents d 07/05 CA 125 panel CA 125 UNITS/ ML 0.0 34.0 9.50 Test performed at [facility] on a [employer] 2000 Immunoass ay Analyzer that uses an immunoenz ymometric sandwich assay for analysis. Patient testing should not be performed using multiple methodolo gies due to analytica l variation seen between test methodolo gies. FINAL Tamanna noel [address] [id number] 0 Phone: () - 07/05 TSH panel TSH uIU/ml 0.32 5.0 2.46 Test performed at [facility] on a [employer] 2000 Immunoass ay Analyzer that uses an immunoenz ymometric sandwich assay for analysis. Patient testing should not be performed using multiple methodolo gies due to analytica l variation seen between test methodolo gies. FINAL Tamanna noel [address] [id number] 0 Phone: () - 07/05 CBC w/ auto diff BA # K/uL 0.0 0.2 [address] [facility], [address] [place] [address] 200 [facility] [id number] 0 Phone: () - 07/05 CBC w/ auto diff NRBC % #/100W BC 0.0 0.2 0.[address] [facility], [address] [place] [address] 200 [facility] [id number] 0 Phone: () - 07/05 CBC w/ auto diff RBC M/uL 3.9 5.1 3.[address] Tamanna noel [facility], [address] [place] [address] 200 [facility] [facility] [id number] 0 Phone: () - 07/05 CBC w/ auto diff HCT % 35.0 48.0 37.0 FINAL Tamanna noel [facility] [place], [address] [place] [address] [address] [place] [id number] 0 Phone: () - 07/05 CBC w/ auto diff MCV fL 80.0 104.0 104.5 High FINAL Tamanna noel [facility] - [place], [address] [place] [id number] 0 Phone: () - 07/05 CBC w/ auto diff MCH pg 26.0 35.0 35.0 FINAL Tamanna noel [facility] [place], [address] [place] [id number] 0 Phone: () - 07/05 CBC w/ auto diff MCHC g/dL 30.0 35.0 33.5 FINAL Tamanna noel [facility] - [place], [address] [place] [id number] 0 Phone: () - 07/05 CBC w/ auto diff MPV fL 9.5 13.4 9.5 FINAL Tamanna noel [facility] - [place], [address] [place] [id number] 0 Phone: () - 07/05 CBC w/ auto diff RDW % 11.4 16.1 13.10 FINAL Tamanna noel [facility] - [place], [address] [place] [id number] 0 Phone: () - 07/05 CBC w/ auto diff WBC K/uL 3.0 8.9 10.4 High FINAL Tamanna noel [facility] - [place], [address] [place] [address] [address] [place] [id number] 0 Phone: () - 07/05 CBC w/ auto diff HGB g/dL 11.3 15.2 12.4 FINAL Tamanna noel [facility] - [place], [address] [place] [address] [address] [place] [id number] 0 Phone: () - 07/05 CBC w/ auto diff PLT K/uL 113.0 364.0 177 FINAL Tamanna noel [facility] - [place], [address] [place] [id number] 0 Phone: () - 07/05 CBC w/ auto diff Avtar # (ANC) K/uL 1.6 6.6 6.3 FINAL Tamanna noel [facility] [place], [address] [place] [id number] 0 Phone: () - 07/05 CBC w/ auto diff Avtar % % 43.0 74.0 61.2 FINAL Tamanna noel [facility] - [place], [address] [place] [id number] 0 Phone: () - 07/05 CBC w/ auto diff IG % % 0.0 0.5 0.7 High FINAL Tamanna noel [facility] - [place], [address] [place] [id number] 0 Phone: () - 07/05 CBC w/ auto diff IG # K/uL 0.0 0.03 0.07 High FINAL Tamanna noel [facility] - [place], [address] [place] [id number] 0 Phone: () - 07/05 CBC w/ auto diff LY % % 14.0 41.0 24.2 FINAL Tamanna noel [facility] - [place], [address] [place] [id number] 0 Phone: () - 07/05 CBC w/ auto diff MO % % 6.0 15.0 8.6 FINAL Tamanna noel [facility] - [place], [address] [place] [id number] 0 Phone: () - 07/05 CBC w/ auto diff EO % % 0.0 7.0 4.5 FINAL Tamanna noel [facility] [place], [address] [place] [id number] 0 Phone: () - 07/05 CBC w/ auto diff BA % % 0.0 2.0 0.8 FINAL Tamanna noel [facility] - [place], [address] [place] [id number] 0 Phone: () - 07/05 CBC w/ auto diff LY # K/uL 0.4 3.6 2.5 FINAL Tamanna noel [facility] [place] [facility], [address] [place] [address] 200 [facility] [id number] 0 Phone: () - 07/05 CBC w/ auto diff MO # K/uL 0.2 1.3 0.9 FINAL Tamanna noel [facility] [place] [facility], [address] [place] [address] 200 [facility] [id number] 0 Phone: () - 07/05 CBC w/ auto diff EO # K/uL 0.0 0.6 0.5 FINAL Tamanna noel [facility] [place] [facility], [address] [place] [address] 200 [facility] [id number] 0 Phone: () - 07/05 CMP Sodiu [...] GOT IU/L 2.0 40.0 36 Test Performed by:[facility], [address] - [place], [place] [address]Hntl e [phone] FINAL Tamanna Rolon 07/05 [facility] other lab See supervisor contingents d 07/13 [facility] other lab See supervisor contingents d 08/02 TSH panel TSH uIU/ml 0.32 5.0 2.38 Test performed at [facility] on a [employer] Immunoass ay Analyzer that uses an immunoenz ymometric sandwich assay for analysis. Patient testing should not be performed using multiple methodolo gies due to analytica l variation seen between test methodolo gies. FINAL Tamanna noel [address] [phone] 0 Phone: () - 08/02 CA 125 panel CA 125 UNITS/ ML 0.0 34.0 8.50 Test performed at [facility] on a [employer] 2000 Immunoass ay Analyzer that uses an immunoenz ymometric sandwich assay for analysis. Patient testing should not be performed using multiple methodolo gies due to analytica l variation seen between test methodolo gies. FINAL Tamanna noel [facility] [address] [facility] [id number] 0 Phone: () - 08/02 CBC w/ auto diff WBC K/uL 3.0 8.9 9.3 High FINAL Tamanna noel [facility] [place], [address] [place] [id number] 0 Phone: () - 08/02 CBC w/ auto diff HGB g/dL 11.3 15.2 12.5 FINAL Tamanna noel [facility] - [place], [address] [place] [id number] 0 Phone: () - 08/02 CBC w/ auto diff PLT K/uL 113.0 364.0 165 FINAL Tamanna noel [facility] [place], [address] [place] [address] [address] [place] [id number] 0 Phone: () - 08/02 CBC w/ auto diff Avtar # (ANC) K/uL 1.6 6.6 5.7 FINAL Tamanna noel [facility] [place], [address] [place] [address] [address] [place] [id number] 0 Phone: () - 08/02 CBC w/ auto diff Avtar % % 43.0 74.0 61.0 FINAL Tamanna noel [facility] [place], [address] [place] [id number] 0 Phone: () - 08/02 CBC w/ auto diff IG % % 0.0 0.5 0.6 High FINAL Tamanna noel [facility] [place], [address] [place] [address] [address] [place] [id number] 0 Phone: () - 08/02 CBC w/ auto diff IG # K/uL 0.0 0.03 0.06 High FINAL Tamanna noel [facility] [place], [address] [place] [address] [address] [place] [id number] 0 Phone: () - 08/02 CBC w/ auto diff LY % % 14.0 41.0 24.1 FINAL Tamanna noel [facility] [place], [address] [place] [address] [address] [place] [id number] 0 Phone: () - 08/02 CBC w/ auto diff MO % % 6.0 15.0 8.4 FINAL Tamanna noel [facility] [place], [address] [place] [id number] 0 Phone: () - 08/02 CBC w/ auto diff EO % % 0.0 7.0 5.1 FINAL Tamanna noel [facility] [place], [address] [place] [id number] 0 Phone: () - 08/02 CBC w/ auto diff BA % % 0.0 2.0 0.8 FINAL Tamanna noel [facility] [place], [address] [place] [address] 200 [place] [id number] 0 Phone: () - 08/02 CBC w/ auto diff LY # K/uL 0.4 3.6 2.2 FINAL Tamanna noel [facility] [place], [address] [place] [address] 200 [place] [id number] 0 Phone: () - 08/02 CBC w/ auto diff MO # K/uL 0.2 1.3 0.8 FINAL Tamanna noel [facility] - [place], [address] [place] [address] 200 [place] [id number] 0 Phone: () - 08/02 CBC w/ auto diff EO # K/uL 0.0 0.6 0.5 FINAL Tamanna noel [facility] [place], [address] [place] [address] [address] [place] [id number] 0 Phone: () - 08/02 CBC w/ auto diff BA # K/uL 0.0 0.2 0.1 FINAL Tamanna noel [facility] [place], [address] [place] [address] [address] [place] [id number] 0 Phone: () - 08/02 CBC w/ auto diff NRBC % #/100W BC 0.0 0.2 0.0 FINAL Tamanna noel [facility] [place], [address] [place] [address] [address] [place] [id number] 0 Phone: () - 08/02 CBC w/ auto diff RBC M/uL 3.9 5.1 3.55 Low FINAL Tamanna noel [facility] - [place], [address] [place] [address] [address] [place] [id number] 0 Phone: () - 08/02 CBC w/ auto diff HCT % 35.0 48.0 37.3 FINAL Tamanna noel [facility] [place], [address] [place] [address] [address] [place] [id number] 0 Phone: () - 08/02 CBC w/ auto diff MCV fL 80.0 104.0 105.1 High FINAL Tamanna noel [facility] [place], [address] [place] [address] [address] [place] [id number] 0 Phone: () - 08/02 CBC w/ auto diff MCH pg 26.0 35.0 35.2 High FINAL Tamanna noel [facility] [place], [address] [place] [address] [address] [place] [id number] 0 Phone: () - 08/02 CBC w/ auto diff MCHC g/dL 30.0 35.0 33.5 FINAL Tamanna noel [facility] [place], [address] [place] [address] [address] [place] [id number] 0 Phone: () - 08/02 CBC w/ auto diff MPV fL 9.5 13.4 9.6 FINAL Tamanna noel [facility] [place], [address] [place] [address] [address] [place] [id number] 0 Phone: () - 08/02 CBC w/ auto diff RDW % 11.4 16.1 13.00 FINAL Tamanna noel [facility] [place], [address] [place] [address] [address] [place] [id number] 0 Phone: () - 08/02 CMP Sodiu [...] GOT IU/L 2.0 40.0 32 Test Performed by:[facility], [address] - [facility] [place], [place] [address]Qhwt e : FINAL Tamanna Rolon 08/02 Misc other lab See supervisor contingents d 08/13 [facility] other lab See supervisor contingents d 08/30 Magne sium, mg/dL mg/dL 1.5 2.3 1.5 FINAL Tamanna noel [facility], [address] [place] [address] [phone] 0 Phone: () - 08/30 TSH panel TSH uIU/ml 0.32 5.0 2.25 Test performed at [facility] on a [employer] Immunoass ay Analyzer that uses an immunoenz ymometric sandwich assay for analysis. Patient testing should not be performed using multiple methodolo gies due to analytica l variation seen between test methodolo gies. FINAL Tamanna noel [address] [id number] 0 Phone: () - 08/30 Retic ulocy te, absol circle M/uL 0.02 0.08 0.[address] [facility], [address] [place] [address] 200 [facility] [id number] 0 Phone: () - 08/30 Retic ulocy te count % 0.4 1.6 2.[address] noel [facility], [address] [place] [address] 200 [facility] [place] [id number] 0 Phone: () - 08/30 Immat ure retic ulocy te fract ion, % % 0.0 16.5 20.[address] [facility], [address] [place] [address] 200 [facility] [id number] 0 Phone: () - 08/30 Retic ulocy te cellu lar hemog lobin pg 28.0 37.0 38.[address] [facility], [address] [place] [address] 200 [facility] [place] [id number] 0 Phone: () - 08/30 CA 125 panel CA 125 UNITS/ ML 0.0 34.0 12.90 Test performed at [facility] on a [employer] 2000 Immunoass ay Analyzer that uses an immunoenz ymometric sandwich assay for analysis. Patient testing should not be performed using multiple methodolo gies due to analytica l variation seen between test methodolo gies. FINAL Tamanna noel [facility] - [place], [address] [facility] [address] [facility] [id number] 0 Phone: () - 08/30 CBC w/ auto diff WBC K/uL 3.0 8.9 8.8 FINAL Tamanna noel [facility] - [place], [address] [place] [address] [address] [place] [id number] 0 Phone: () - 08/30 CBC w/ auto diff HGB g/dL 11.3 15.2 12.3 FINAL Tamanna noel [facility] - [place], [address] [place] [address] [address] [place] [id number] 0 Phone: () - 08/30 CBC w/ auto diff PLT K/uL 113.0 364.0 161 FINAL Tamanna noel [facility] [place], [address] [place] [address] [address] [place] [id number] 0 Phone: () - 08/30 CBC w/ auto diff Avtar # (ANC) K/uL 1.6 6.6 5.6 FINAL Tamanna noel [facility] [place], [address] [place] [address] [address] [place] [id number] 0 Phone: () - 08/30 CBC w/ auto diff Avtar % % 43.0 74.0 62.9 FINAL Tamanna noel [facility] [place], [address] [place] [address] [address] [place] [id number] 0 Phone: () - 08/30 CBC w/ auto diff IG % % 0.0 0.5 0.5 FINAL Tamanna noel [facility] [place], [address] [place] [address] [address] [place] [id number] 0 Phone: () - 08/30 CBC w/ auto diff IG # K/uL 0.0 0.03 0.04 High FINAL Tamanna noel [facility] - [place], [address] [place] [address] [address] [place] [id number] 0 Phone: () - 08/30 CBC w/ auto diff LY % % 14.0 41.0 23.7 FINAL Tamanna noel [facility] [place], [address] [facility] [place] [id number] 0 Phone: () - 08/30 CBC w/ auto diff MO % % 6.0 15.0 7.2 FINAL Tamanna noel [facility] [place], [address] [place] [address] 200 [facility] [place] [id number] 0 Phone: () - 08/30 CBC w/ auto diff EO % % 0.0 7.0 5.1 FINAL Tamanna noel [facility] [place], [address] [place] [address] 200 [facility] [place] [id number] 0 Phone: () - 08/30 CBC w/ auto diff BA % % 0.0 2.0 0.6 FINAL Tamanna noel [facility] [place], [address] [place] [address] 200 [facility] [place] [id number] 0 Phone: () - 08/30 CBC w/ auto diff LY # K/uL 0.4 3.6 2.1 FINAL Tamanna noel [facility] - [place], [address] [place] [address] 200 [facility] [place] [id number] 0 Phone: () - 08/30 CBC w/ auto diff MO # K/uL 0.2 1.3 0.6 FINAL Tamanna noel [facility] [place], [address] [place] [address] 200 [facility] [place] [id number] 0 Phone: () - 08/30 CBC w/ auto diff EO # K/uL 0.0 0.6 0.5 FINAL Tamanna noel [facility] [place], [address] [place] [address] 200 [facility] [place] [id number] 0 Phone: () - 08/30 CBC w/ auto diff BA # K/uL 0.0 0.2 0.1 FINAL Tamanna noel [facility] [place], [address] [place] [address] 200 [facility] [place] [id number] 0 Phone: () - 08/30 CBC w/ auto diff NRBC % #/100W BC 0.0 0.2 0.0 FINAL Tamanna noel [facility] [place], [address] [place] [address] 200 [facility] [place] [id number] 0 Phone: () - 08/30 CBC w/ auto diff RBC M/uL 3.9 5.1 3.53 Low FINAL Tamanna noel [facility] - [place] [facility], [address] [place] [address] [address] [place] [id number] 0 Phone: () - 08/30 CBC w/ auto diff HCT % 35.0 48.0 37.1 FINAL Tamanna noel [facility] - [place] [facility], [address] [place] [id number] 0 Phone: () - 08/30 CBC w/ auto diff MCV fL 80.0 104.0 105.1 High FINAL Tamanna noel [facility] - [place] [facility], [address] [place] [address] 200 [place] [id number] 0 Phone: () - 08/30 CBC w/ auto diff MCH pg 26.0 35.0 34.8 [facility], [address] [place] [address] 200 [place] [id number] 0 Phone: () - 08/30 CBC w/ auto diff MCHC g/dL 30.0 35.0 33.2 FINAL [facility], [address] [place] [address] 200 [place] [id number] 0 Phone: () - 08/30 CBC w/ auto diff MPV fL 9.5 13.4 9.7 FINAL [facility], [facility] [address] [place] [id number] 0 Phone: () - 08/30 CBC w/ auto diff RDW % 11.4 16.1 12.40 FINAL Tamanna noel [facility] [place] [facility], [address] [place] [address] 200 [place] [id number] 0 Phone: () - 08/30 Folat e, serum ng/mL 3.0 16.0 Folate greater than 20 FINAL Tamanna noel Oncology [facility], [address] [facility] [address] [facility] [id number] 0 Phone: () - 08/30 CMP Sodiu m mmol/L 135.0 145.0 135 FINAL Tamanna Gonzales 08/30 CMP Potas sium mmol/L 3.5 5.0 4.6 FINAL Tamanna Kenny 08/30 CMP Chlor sathish mmol/L 98.0 110.0 96 Low FINAL [facility] 08/30 CMP CO2 mmol/L 21.0 31.0 32 [facility] CMP Anion gap, mmol/ L 5.0 18.0 7.0% FINAL Tamanna Gonzales 08/30 CMP Gluco se mg/dL 65.0 100.0 92 FINAL Tamanna Gonzales 08/30 CMP Calci um mg/dL 8.5 10.5 9.1 FINAL [facility] 08/30 CMP BUN mg/dL 8.0 25.0 10 [facility] 08/30 CMP Creat inine mg/dL 0.57 1.11 0.95 [facility] 08/30 CMP BUN/C reati nine ratio 10.0 20.0 11.0% FINAL [facility] 08/30 CMP GFR Afric an Ameri can, estim ated ml/min /1.73m 2 >60 FINAL [facility] 08/30 CMP GFR non-A frica n Ameri can, estim ated ml/min /1.73m 2 58 Low [facility] 08/30 CMP Album in g/dL 3.2 4.6 4.1 [facility] 08/30 CMP Total prote in g/dL 6.0 8.0 7.1 FINAL [facility] 08/30 CMP Globu samreen g/dL 2.0 3.7 3.0 [facility] 08/30 CMP A/G ratio 1.0 2.0 1.4% [facility] 08/30 CMP Bilir ubin, total mg/dL 0.2 1.2 0.4 [facility] 08/30 CMP Alkal ine phosp hatas e IU/L 50.0 136.0 63 FINAL [facility] 08/30 CMP ALT/S GPT IU/L 8.0 45.0 18 FINAL Tamanna Rolon 08/30 CMP AST/S GOT IU/L 2.0 40.0 30 Test Performed by:[facility] - [facility], [place] [address]Anlh e [phone] FINAL Tamanna Rolon 08/30 Rashida stero l mg/dL 100.0 199.0 146 FINAL Tamanna Rolon 08/30 Chemi strie s Fasti ng statu s RANDOM Test Performed by:[facility] - [facility], [place] [address]Gqch e : FINAL Tamanna Rolon 08/30 Phosp horus mg/dL 2.3 4.7 2.6 Test Performed by:[facility] - [facility], [place] [address]Ujjt e : FINAL Tamanna Rolon 08/30 LDH U/L 120.0 246.0 184 FINAL Tamanna noel [address] [id number] [phone] Phone: () - 09/27 Magne sium, mg/dL mg/dL 1.5 2.3 1.4 Low FINAL Tamanna noel [address] [id number] 0 Phone: () - 09/27 Retic ulocy te, absol circle M/uL 0.02 0.08 0.09 High FINAL Tamanna noel Oncology - [facility], [address] [place] [address] 200 [facility] [id number] 0 Phone: () - 09/27 Retic ulocy te count % 0.4 1.6 2.55 High FINAL Tamanna noel Oncology - [facility], [address] [place] [address] 200 [facility] [id number] 0 Phone: () - 09/27 Immat ure retic ulocy te fract ion, % % 0.0 16.5 26.30 High FINAL Tamanna noel Oncology - [facility], [address] [place] [address] [address] [place] [id number] 0 Phone: () - 09/27 Retic ulocy te cellu lar hemog lobin pg 28.0 37.0 38.2 High FINAL Tamanna noel [facility] - [place], [address] 200 [place] [id number] 0 Phone: () - 09/27 CBC w/ auto diff WBC K/uL 3.0 8.9 10.3 High FINAL Tamanna noel [facility] - [place], [address] 200 [place] [id number] 0 Phone: () - 09/27 CBC w/ auto diff HGB g/dL 11.3 15.2 12.9 FINAL Tamanna noel [facility] - [place], [address] 200 [place] [id number] 0 Phone: () - 09/27 CBC w/ auto diff PLT K/uL 113.0 364.0 190 FINAL Tamanna noel [facility] - [place], [address] 200 [place] [id number] 0 Phone: () - 09/27 CBC w/ auto diff Avtar # (ANC) K/uL 1.6 6.6 6.7 High FINAL Tamanna noel [facility] - [place], [address] [place] [address] 200 [place] [id number] 0 Phone: () - 09/27 CBC w/ auto diff Avtar % % 43.0 74.0 64.3 FINAL Tamanna noel [facility] - [place], [address] 200 [place] [id number] 0 Phone: () - 09/27 CBC w/ auto diff IG % % 0.0 0.5 0.7 High FINAL Tamanna noel [facility] - [place], [address] [place] [address] 200 [place] [id number] 0 Phone: () - 09/27 CBC w/ auto diff IG # K/uL 0.0 0.03 0.07 High FINAL Tamanna noel [facility] - [place], [address] [place] [address] 200 [place] [id number] 0 Phone: () - 09/27 CBC w/ auto diff LY % % 14.0 41.0 23.6 FINAL Tamanna noel [facility] - [place], [address] 200 [facility] [id number] 0 Phone: () - 09/27 CBC w/ auto diff MO % % 6.0 15.0 6.8 FINAL Tamanna noel [facility] - [place], [address] [place] [address] 200 [facility] [id number] 0 Phone: () - 09/27 CBC w/ auto diff EO % % 0.0 7.0 4.1 FINAL Tamanna noel [facility] - [place], [address] [place] [address] 200 [facility] [id number] 0 Phone: () - 09/27 CBC w/ auto diff BA % % 0.0 2.0 0.5 FINAL Tamanna noel [facility] - [place], [address] [place] [address] 200 [facility] [id number] 0 Phone: () - 09/27 CBC w/ auto diff LY # K/uL 0.4 3.6 2.4 FINAL Tamanna noel [facility] - [place], [address] [place] [address] 200 [facility] [place] [id number] 0 Phone: () - 09/27 CBC w/ auto diff MO # K/uL 0.2 1.3 0.7 FINAL Tamanna noel [facility] - [place], [address] [place] [address] 200 [facility] [id number] 0 Phone: () - 09/27 CBC w/ auto diff EO # K/uL 0.0 0.6 0.4 FINAL Tamanna noel [facility] - [place], [address] [place] [address] 200 [facility] [place] [id number] 0 Phone: () - 09/27 CBC w/ auto diff BA # K/uL 0.0 0.2 0.1 FINAL Tamanna noel [facility] - [place], [address] [place] [address] 200 [facility] [id number] 0 Phone: () - 09/27 CBC w/ auto diff NRBC % #/100W BC 0.0 0.2 0.0 FINAL Tamanna noel [facility] - [place] [facility], [address] [place] [address] [address] [place] [id number] 0 Phone: () - 09/27 CBC w/ auto diff RBC M/uL 3.9 5.1 3.70 Low FINAL Tamanna noel [facility] - [place] [facility], [address] [place] [address] [address] [place] [id number] 0 Phone: () - 09/27 CBC w/ auto diff HCT % 35.0 48.0 38.7 FINAL Tamanna noel [facility] - [place] [facility], [address] [place] [address] 200 [place] [id number] 0 Phone: () - 09/27 CBC w/ auto diff MCV fL 80.0 104.0 104.6 High FINAL Tamanna noel [facility] - [place] [facility], [address] [place] [address] 200 [place] [id number] 0 Phone: () - 09/27 CBC w/ auto diff MCH pg 26.0 35.0 34.9 FINAL Tamanna noel [facility] - [place] [facility], [address] [place] [address] 200 [place] [id number] 0 Phone: () - 09/27 CBC w/ auto diff MCHC g/dL 30.0 35.0 33.3 FINAL Tamanna noel [facility] - [place] [facility], [facility] [address] [place] [id number] 0 Phone: () - 09/27 CBC w/ auto diff MPV fL 9.5 13.4 9.1 Low FINAL Tamanna noel [facility] - [place] [facility], [address] [place] [address] [address] [place] [id number] 0 Phone: () - 09/27 CBC w/ auto diff RDW % 11.4 16.1 12.40 FINAL Tamanna noel [facility] - [place] [facility], [facility] [address] [place] [id number] 0 Phone: () - 09/27 CA 125 UNITS/ ML 0.0 34.0 10.40 Test performed at [facility] on a [employer] 2000 Immunoass ay Analyzer that uses an immunoenz ymometric sandwich assay for analysis. Patient testing should not be performed using multiple methodolo gies due to analytica l variation seen between test methodolo gies. FINAL Tamanna Peters [facility] [address] [id number] 0 Phone: () - 09/27 TSH uIU/ml 0.32 5.0 2.56 Test performed at [facility] on a [employer] 2000 Immunoass ay Analyzer that uses an immunoenz ymometric sandwich assay for analysis. Patient testing should not be performed using multiple methodolo gies due to analytica l variation seen between test methodolo gies. FINAL Tamanna noel Oncology - [address] [id number] 0 Phone: () - 09/27 Rashida stero l mg/dL 100.0 199.0 148 FINAL [facility] 09/27 Chemi strie s Fasti ng statu s RANDOM Test Performed by:[facility] - [place], [place] [address]Rvhs e : FINAL [facility] 09/27 Phosp horus mg/dL 2.3 4.7 2.8 Test Performed by:[facility] - [place], [place] [address]Sszk e : FINAL Tamanna Gonzales 09/27 CMP Sodiu m mmol/L 135.0 145.0 131 Low FINAL [facility] 09/27 CMP Potas sium mmol/L 3.5 5.0 4.6 FINAL [facility] 09/27 CMP Chlor sathish mmol/L 98.0 110.0 92 Low FINAL [facility] 09/27 CMP CO2 mmol/L 21.0 31.0 29 FINAL [facility] 09/27 CMP Anion gap, mmol/ L 5.0 18.0 10.0% FINAL [facility] 09/27 CMP Gluco se mg/dL 65.0 100.0 [...] ubin, total mg/dL 0.2 1.2 0.4 FINAL Tamnana Rolon 09/27 CMP Alkal ine phosp hatas e IU/L 50.0 136.0 70 FINAL Tamanna Rolon 09/27 CMP ALT/S GPT IU/L 8.0 45.0 16 FINAL Tamanna Rolon 09/27 CMP AST/S GOT IU/L 2.0 40.0 25 Test Performed by:[facility] [address], [address] - [facility], [place] [address]Uthd e [phone] FINAL Tamanna Rolon 09/27 LDH U/L 120.0 246.0 176 FINAL Tamanna Rolon [facility] [place], [address] [place] [address] [address] [facility] [phone] Phone: () - 09/27 Folat e, serum ng/mL 3.0 16.0 17.4 High FINAL Tamanna noel Oncology [facility], [address] [facility] [address] [place] [id number] 0 Phone: () - 10/25 CBC w/ auto diff WBC K/uL 3.0 8.9 9.3 High FINAL Tamanna noel [facility] - [place], [address] [facility] [place] [id number] 0 Phone: () - 10/25 CBC w/ auto diff HGB g/dL 11.3 15.2 12.9 FINAL Tamanna noel [facility] - [place], [address] [place] [address] 200 [facility] [place] [id number] 0 Phone: () - 10/25 CBC w/ auto diff PLT K/uL 113.0 364.0 162 FINAL Tamanna noel [facility] - [place] [facility], [address] [place] [address] 200 [facility] [place] [id number] 0 Phone: () - 10/25 CBC w/ auto diff Avtar # (ANC) K/uL 1.6 6.6 6.1 FINAL Tamanna noel [facility] - [place] [facility], [address] [place] [address] 200 [place] [id number] 0 Phone: () - 10/25 CBC w/ auto diff Avtar % % 43.0 74.0 64.9 FINAL Tamanna noel [facility] - [place], [address] [place] [address] [address] [facility] [place] [id number] 0 Phone: () - 10/25 CBC w/ auto diff IG % % 0.0 0.5 0.5 FINAL Tamanna noel [facility] - [place] [facility], [address] [place] [address] 200 [place] [id number] 0 Phone: () - 10/25 CBC w/ auto diff IG # K/uL 0.0 0.03 0.05 High FINAL Tamanna noel [facility] - [place], [address] [place] [address] [address] [facility] [place] [id number] 0 Phone: () - 10/25 CBC w/ auto diff LY % % 14.0 41.0 22.9 FINAL Tamanna noel [facility] - [place], [address] [place] [address] [address] [place] [id number] 0 Phone: () - 10/25 CBC w/ auto diff MO % % 6.0 15.0 7.1 FINAL Tamanna noel [facility] - [place], [address] [place] [address] [address] [place] [id number] 0 Phone: () - 10/25 CBC w/ auto diff EO % % 0.0 7.0 4.2 FINAL Tamanna noel [facility] - [place], [address] [place] [id number] 0 Phone: () - 10/25 CBC w/ auto diff BA % % 0.0 2.0 0.4 FINAL Tamanna noel [facility] - [place], [address] [place] [id number] 0 Phone: () - 10/25 CBC w/ auto diff LY # K/uL 0.4 3.6 2.1 FINAL Tamanna noel [facility] - [place], [address] [place] [id number] 0 Phone: () - 10/25 CBC w/ auto diff MO # K/uL 0.2 1.3 0.7 FINAL Tamanna noel [facility] - [place], [address] [place] [address] [address] [place] [id number] 0 Phone: () - 10/25 CBC w/ auto diff EO # K/uL 0.0 0.6 0.4 FINAL Tamanna noel [facility] - [place], [address] [place] [id number] 0 Phone: () - 10/25 CBC w/ auto diff BA # K/uL 0.0 0.2 0.0 FINAL Tamanna noel [facility] - [place], [address] [place] [address] [address] [place] [id number] 0 Phone: () - 10/25 CBC w/ auto diff NRBC % #/100W BC 0.0 0.2 0.0 FINAL Tamanna noel On[facility] - [place] [facility], [address] [place] [id number] 0 Phone: () - 10/25 CBC w/ auto diff RBC M/uL 3.9 5.1 3.70 Low FINAL Tamanna noel Oncology - [place] [facility], [address] [place] [id number] 0 Phone: () - 10/25 CBC w/ auto diff HCT % 35.0 48.0 39.0 FINAL Tamanna noel Oncology - [place] [facility], [address] [place] [id number] 0 Phone: () - 10/25 CBC w/ auto diff MCV fL 80.0 104.0 105.4 High FINAL Tamanna noel Oncology - [place] [facility], [address] [place] [id number] 0 Phone: () - 10/25 CBC w/ auto diff MCH pg 26.0 35.0 34.9 FINAL Tamanna noel Oncology - [place] [facility], [address] [place] [id number] 0 Phone: () - 10/25 CBC w/ auto diff MCHC g/dL 30.0 35.0 33.1 FINAL Tamanna noel Oncology - [place] [facility], [address] [place] [id number] 0 Phone: () - 10/25 CBC w/ auto diff MPV fL 9.5 13.4 9.8 FINAL Tamanna noel Oncology - [place] [facility], [address] [place] [id number] 0 Phone: () - 10/25 CBC w/ auto diff RDW % 11.4 16.1 13.10 FINAL Tamanna noel Oncology - [place] [facility], [address] [place] [id number] 0 Phone: () - 10/25 Magne sium, mg/dL mg/dL 1.5 2.3 1.9 FINAL Tamanna noel Oncology [address] [id number] 0 Phone: () - 10/25 CA 125 panel CA 125 UNITS/ ML 0.0 34.0 6.90 Test performed at [facility] on a [employer] 2000 Immunoass ay Analyzer that uses an immunoenz ymometric sandwich assay for analysis. Patient testing should not be performed using multiple methodolo gies due to analytica l variation seen between test methodolo gies. FINAL Tamanna noel [address] [id number] 0 Phone: () - 10/25 TSH uIU/ml 0.32 5.0 2.28 Test performed at [facility] on a [employer] 2000 Immunoass ay Analyzer that uses an immunoenz ymometric sandwich assay for analysis. Patient testing should not be performed using multiple methodolo gies due to analytica l variation seen between test methodolo gies. FINAL Tamanna noel [address] [id number] 0 Phone: () - 10/25 Retic ulocy te, absol circle M/uL 0.02 0.08 0.[address] [facility], [address] [place] [address] 200 [facility] [place] [id number] 0 Phone: () - 10/25 Retic ulocy te count % 0.4 1.6 2.[address] noel [facility], [address] [place] [address] 200 [facility] [place] [id number] 0 Phone: () - 10/25 Immat ure retic ulocy te fract ion, % % 0.0 16.5 18.50 High FINAL Tamanna Mcginnis bert [facility], [address] [place] [address] 200 [facility] [place] [id number] 0 Phone: () - 10/25 Retic ulocy te cellu lar hemog lobin pg 28.0 37.0 38.2 High FINAL Tamanna Mcginnis bert [facility], [address] [place] [address] 200 [facility] [id number] 0 Phone: () - 10/25 CMP Sodiu m mmol/L 135.0 145.0 132 Low FINAL [facility] 10/25 CMP Potas sium mmol/L 3.5 5.0 4.7 FINAL [facility] 10/25 CMP Chlor sathish mmol/L 98.0 110.0 95 Low FINAL [facility] 10/25 CMP CO2 mmol/L 21.0 31.0 26 FINAL [facility] 10/25 CMP Anion gap, mmol/ L 5.0 18.0 11.0% FINAL [facility] 10/25 CMP Gluco se mg/dL 65.0 100.0 100 FINAL [facility] 10/25 CMP Calci um mg/dL 8.5 10.5 8.5 FINAL [facility] 10/25 CMP BUN mg/dL 8.0 25.0 23 FINAL [facility] 10/25 CMP Creat inine mg/dL 0.57 1.11 1.15 High FINAL [facility] 10/25 CMP BUN/C reati nine ratio 10.0 20.0 20.0% FINAL [facility] 10/25 CMP GFR Afric an Ameri can, estim ated ml/min /1.73m 2 56 Low FINAL [facility] 10/25 CMP GFR non-A frica n Ameri can, estim ated ml/min /1.73m 2 47 Low FINAL [facility] 10/25 CMP Album in g/dL 3.2 4.6 4.0 FINAL [facility] 10/25 CMP Total prote in g/dL 6.0 8.0 6.8 FINAL [facility] 10/25 CMP Globu samreen g/dL 2.0 3.7 2.8 FINAL [facility] 10/25 CMP A/G ratio 1.0 2.0 1.4% FINAL [facility] 10/25 CMP Bilir ubin, total mg/dL 0.2 1.2 0.6 FINAL [facility] 10/25 CMP Alkal ine phosp hatas e IU/L 50.0 136.0 74 FINAL Tamanna Rolon 10/25 CMP ALT/S GPT IU/L 8.0 45.0 17 FINAL Tamanna Rolon 10/25 CMP AST/S GOT IU/L 2.0 40.0 29 Test Performed by:[facility] - [facility], [place] [address]Twgh e [phone] FINAL Tamanna Rolon 10/25 Rashida stero l mg/dL 100.0 199.0 142 FINAL Tamanna Rolon 10/25 Chemi strie s Fasti ng statu s RANDOM Test Performed by:[facility] - [facility], [place] [address]Jczm e [phone] FINAL Tamanna Rolon 10/25 Phosp horus mg/dL 2.3 4.7 3.3 Test Performed by:[facility] - [facility], [place] [address]Zmmt e [phone] FINAL Tamanna Rolon 10/25 Folat e, serum ng/mL 3.0 16.0 Folate greater than 20 FINAL Tamanna noel Oncology [address] [id number] 0 Phone: () - 10/25 LDH U/L 120.0 246.0 185 FINAL Tamanna noel Oncology [address] [id number] 0 Phone: () - 11/22 CBC w/ auto diff LY # K/uL 0.4 3.6 1.8 FINAL Tamanna noel Oncology - [facility], [address] [place] [address] [address] [place] [id number] 0 Phone: () - 11/22 CBC w/ auto diff MO # K/uL 0.2 1.3 0.7 FINAL Tamanna noel Oncology - [facility], [address] [place] [address] [address] [facility] [place] [id number] 0 Phone: () - 11/22 CBC w/ auto diff EO # K/uL 0.0 0.6 0.4 FINAL Tamanna noel [facility] - [place], [address] [place] [id number] 0 Phone: () - 11/22 CBC w/ auto diff BA # K/uL 0.0 0.2 0.1 FINAL Tamanna noel [facility] - [place], [address] [place] [id number] 0 Phone: () - 11/22 CBC w/ auto diff NRBC % #/100W BC 0.0 0.2 0.0 FINAL Tamanna noel [facility] - [place], [address] [place] [id number] 0 Phone: () - 11/22 CBC w/ auto diff RBC M/uL 3.9 5.1 4.15 FINAL Tamanna noel [facility] - [place], [facility] [address] 200 [place] [id number] 0 Phone: () - 11/22 CBC w/ auto diff HCT % 35.0 48.0 42.3 FINAL Tamanna noel [facility] - [place], [address] [place] [address] 200 [place] [id number] 0 Phone: () - 11/22 CBC w/ auto diff MCV fL 80.0 104.0 101.9 FINAL Tamanna noel On[facility] - [place], [address] [place] [id number] 0 Phone: () - 11/22 CBC w/ auto diff MCH pg 26.0 35.0 33.5 FINAL Tamanna noel On[facility] - [place], [address] [place] [id number] 0 Phone: () - 11/22 CBC w/ auto diff MCHC g/dL 30.0 35.0 32.9 FINAL Tamanna noel On[facility] - [place], [address] [place] [id number] 0 Phone: () - 11/22 CBC w/ auto diff MPV fL 9.5 13.4 9.3 Low FINAL Tamanna noel On[facility] - [place], [address] [place] [address] [address] [place] [id number] 0 Phone: () - 11/22 CBC w/ auto diff RDW % 11.4 16.1 12.70 FINAL Tamanna noel On[facility] - [place], [address] [place] [address] [address] [place] [id number] 0 Phone: () - 11/22 CBC w/ auto diff WBC K/uL 3.0 8.9 8.8 FINAL Tamanna noel [facility] - [place], [address] [place] [address] [address] [place] [id number] 0 Phone: () - 11/22 CBC w/ auto diff HGB g/dL 11.3 15.2 13.9 FINAL Tamanna noel On[facility] - [place], [address] [place] [address] [address] [place] [id number] 0 Phone: () - 11/22 CBC w/ auto diff PLT K/uL 113.0 364.0 197 FINAL Tamanna noel On[facility] - [place], [address] [place] [address] [address] [place] [id number] 0 Phone: () - 11/22 CBC w/ auto diff Avtar # (ANC) K/uL 1.6 6.6 5.8 FINAL Tamanna neol Oncology - [place], [address] [place] [address] [address] [place] [id number] 0 Phone: () - 11/22 CBC w/ auto diff Avtar % % 43.0 74.0 66.0 FINAL Tamanna noel On[facility] - [place], [address] [place] [address] [address] [place] [id number] 0 Phone: () - 11/22 CBC w/ auto diff IG % % 0.0 0.5 0.5 FINAL Tamanna noel On[facility] - [place], [address] [place] [address] [address] [place] [id number] 0 Phone: () - 11/22 CBC w/ auto diff IG # K/uL 0.0 0.03 0.04 High FINAL Tamanna noel On[facility] - [place], [address] 200 [place] [id number] 0 Phone: () - 11/22 CBC w/ auto diff LY % % 14.0 41.0 20.2 FINAL [facility], [address] 200 [place] [id number] 0 Phone: () - 11/22 CBC w/ auto diff MO % % 6.0 15.0 7.8 FINAL Tamanna noel Oncology [facility], [address] 200 [place] [id number] 0 Phone: () - 11/22 CBC w/ auto diff EO % % 0.0 7.0 4.9 FINAL Tamanna noel Oncology [facility], [address] 200 [place] [id number] 0 Phone: () - 11/22 CBC w/ auto diff BA % % 0.0 2.0 0.6 FINAL Tamanna noel Oncology [facility], [address] [place] [address] 200 [place] [id number] 0 Phone: () - 11/22 CMP Album in g/dL 3.2 5.2 4.5 FINAL Tamanna noel [address] [id number] 0 Phone: () - 11/22 CMP Alkal ine phosp hatas e U/L 46.0 116.0 67 FINAL Tamanna noel [address] [id number] 0 Phone: () - 11/22 CMP ALT/S GPT U/L 7.0 40.0 13 FINAL Tamanna noel [address] [id number] 0 Phone: () - 11/22 CMP AST/S GOT U/L 13.0 40.0 20 FINAL Tamanna noel [address] [id number] 0 Phone: () - 11/22 CMP BUN mg/dL 9.0 23.0 20 FINAL Tamanna Peters [address] [id number] 0 Phone: () - 11/22 CMP Calci um mg/dL 8.7 10.4 9.1 [facility] Tamanna Peters [address] [id number] 0 Phone: () - 11/22 CMP Chlor sathish mmol/L 96.0 114.0 96 [facility] Tamanna Mcginnis[address] [id number] 0 Phone: () - 11/22 CMP CO2 mmol/L 20.0 31.0 27 [facility] Tamanna Mcginnis[address] [id number] 0 Phone: () - 11/22 CMP Creat inine mg/dL 0.5 1.2 1.06 [facility] Tamanna Mcginnis[address] [id number] 0 Phone: () - 11/22 CMP GFR estim ate ml/min /1.73m ^2 52.8 Low GFR is calculate d using the CKD-EPI equation. [facility] Tamanna Mcginnis[address] [id number] 0 Phone: () - 11/22 CMP Gluco se mg/dL 73.0 126.0 94 [facility] Tamanna Mcginnis[address] [id number] 0 Phone: () - 11/22 CMP Potas sium mmol/L 3.5 5.1 5.0 [facility] [address] [id number] 0 Phone: () - 11/22 CMP Sodiu m mmol/L 136.0 145.0 130 Low [facility] [address] [id number] 0 Phone: () - 11/22 CMP Bilir ubin, total mg/dL 0.3 1.2 0.5 FINAL Tamanna noel Oncology [address] 100 [facility] [id number] 0 Phone: () - 11/22 CMP Total prote in g/dL 5.7 8.2 6.7 FINAL Tamanna noel [address] [id number] 0 Phone: () - 11/22 CA 125 panel CA 125 UNITS/ ML 0.0 34.0 8.10 Test performed at [facility] on a [employer] Immunoass ay Analyzer that uses an immunoenz ymometric sandwich assay for analysis. Patient testing should not be performed using multiple hallie soto due to analytica l variation seen between test hallie soto. FINAL Tamanna noel [address] [id number] 0 Phone: () - 11/22 [facility] other lab See supervisor contingents d 11/22 [facility] other lab See supervisor contingents d 11/22 [facility] other lab See supervisor contingents d 02/11 CBC w/ auto diff WBC K/uL 3.0 8.9 9.2 High FINAL Tamanna noel Oncology - [facility], [address] [place] [address] 200 [place] [id number] 0 Phone: () - 02/11 CBC w/ auto diff HGB g/dL 11.3 15.2 13.3 FINAL Tamanna noel Oncology - [facility], [address] [place] [address] 200 [place] [id number] 0 Phone: () - 02/11 CBC w/ auto diff PLT K/uL 113.0 364.0 267 FINAL Tamanna noel Oncology - [facility], [address] [place] [address] 200 [place] [id number] 0 Phone: () - 02/11 CBC w/ auto diff Avtar # (ANC) K/uL 1.6 6.6 6.1 FINAL Tamanna noel Oncology - [facility], [address] [place] [address] 200 [place] [id number] 0 Phone: () - 02/11 CBC w/ auto diff Avtar % % 43.0 74.0 66.8 FINAL Tamanna noel On[facility] - [place], [address] 200 [facility] [id number] 0 Phone: () - 02/11 CBC w/ auto diff IG % % 0.0 0.5 1.9 High FINAL Tamanna noel Oncology - [place], [address] 200 [facility] [id number] 0 Phone: () - 02/11 CBC w/ auto diff IG # K/uL 0.0 0.03 0.17 High FINAL Tamanna noel On[facility] - [place], [address] [place] [address] 200 [facility] [id number] 0 Phone: () - 02/11 CBC w/ auto diff LY % % 14.0 41.0 19.2 FINAL Tamanna noel Oncology - [place], [address] 200 [facility] [id number] 0 Phone: () - 02/11 CBC w/ auto diff MO % % 6.0 15.0 9.2 FINAL Tamanna noel Oncology - [place], [address] [place] [address] 200 [facility] [id number] 0 Phone: () - 02/11 CBC w/ auto diff EO % % 0.0 7.0 2.5 FINAL Tamanna noel Oncology - [place], [address] [place] [address] 200 [facility] [id number] 0 Phone: () - 02/11 CBC w/ auto diff BA % % 0.0 2.0 0.4 FINAL Tamanna noel Oncology - [place], [address] [place] [address] 200 [facility] [place] [id number] 0 Phone: () - 02/11 CBC w/ auto diff LY # K/uL 0.4 3.6 1.8 FINAL Tamanna noel Oncology - [place], [address] [place] [address] 200 [facility] [id number] 0 Phone: () - 02/11 CBC w/ auto diff MO # K/uL 0.2 1.3 0.8 FINAL Tamanna noel Oncology - [place] [facility], [address] [place] [address] 200 [place] [id number] 0 Phone: () - 02/11 CBC w/ auto diff EO # K/uL 0.0 0.6 0.2 FINAL Tamanna noel Oncology - [place] [facility], [address] [place] [address] 200 [place] [id number] 0 Phone: () - 02/11 CBC w/ auto diff BA # K/uL 0.0 0.2 0.0 FINAL Tamanna noel Oncology - [place] [facility], [address] [place] [address] 200 [place] [id number] 0 Phone: () - 02/11 CBC w/ auto diff NRBC % #/100W BC 0.0 0.2 0.2 FINAL Tamanna noel Oncology - [place] [facility], [address] [place] [address] 200 [place] [id number] 0 Phone: () - 02/11 CBC w/ auto diff RBC M/uL 3.9 5.1 4.09 FINAL Tamanna noel Oncology - [place] [facility], [address] [place] [address] 200 [place] [id number] 0 Phone: () - 02/11 CBC w/ auto diff HCT % 35.0 48.0 40.6 FINAL Tamanna noel Oncology - [place] [facility], [address] [place] [address] 200 [place] [id number] 0 Phone: () - 02/11 CBC w/ auto diff MCV fL 80.0 104.0 99.3 FINAL Tamanna noel Oncology - [place] [facility], [address] [place] [address] 200 [place] [id number] 0 Phone: () - 02/11 CBC w/ auto diff MCH pg 26.0 35.0 32.5 FINAL Tamanna noel Oncology - [place] [facility], [address] [place] [address] 200 [place] [id number] 0 Phone: () - 02/11 CBC w/ auto diff MCHC g/dL 30.0 35.0 32.[address] [facility], [address] 200 [place] [id number] 0 Phone: () - 02/11 CBC w/ auto diff MPV fL 9.5 13.4 8.[address] no[address] [facility], [address] 200 [place] [id number] 0 Phone: () - 02/11 CBC w/ auto diff RDW % 11.4 16.1 14.[address] [facility], [address] 200 [place] [id number] 0 Phone: () - 02/11 CMP Album in g/dL 3.2 5.2 4.3 FINAL Tamanna noel [address] [id number] 0 Phone: () - 02/11 CMP Alkal ine phosp hatas e U/L 46.0 116.0 53 FINAL Tamanna noel [address] [id number] 0 Phone: () - 02/11 CMP ALT/S GPT U/L 7.0 40.0 14 FINAL Tamanna noel [address] [id number] 0 Phone: () - 02/11 CMP AST/S GOT U/L 13.0 40.0 22 FINAL Tamanna noel [address] [id number] 0 Phone: () - 02/11 CMP BUN mg/dL 9.0 23.0 7 Low FINAL Tamanna noel [address] [id number] 0 Phone: () - 02/11 CMP Calci um mg/dL 8.7 10.4 9.6 FINAL Tamanna noel [address] [place] [id number] 0 Phone: () - 02/11 CMP Chlor sathish mmol/L 96.0 114.0 91 Low FINAL Tamanna noel [address] [id number] 0 Phone: () - 02/11 CMP CO2 mmol/L 20.0 31.0 26 FINAL Tamanna Peters [address] [id number] 0 Phone: () - 02/11 CMP Creat inine mg/dL 0.5 1.2 1.03 FINAL Tamanna Peters [address] [id number] 0 Phone: () - 02/11 CMP GFR estim ate ml/min /1.73m ^2 54.5 Low GFR is calculate d using the CKD-EPI equation. FINAL Tamanna Peters [address] [id number] 0 Phone: () - 02/11 CMP Gluco se mg/dL 73.0 126.0 97 [facility] Tamanna Peters [address] [id number] 0 Phone: () - 02/11 CMP Potas sium mmol/L 3.5 5.1 4.5 [facility] Tamanna Peters [address] [id number] 0 Phone: () - 02/11 CMP Sodiu m mmol/L 136.0 145.0 129 Low [facility] Tamanna noel [address] [id number] 0 Phone: () - 02/11 CMP Bilir ubin, total mg/dL 0.3 1.2 0.4 [facility] Tamanna noel [address] [id number] 0 Phone: () - 02/11 CMP Total prote in g/dL 5.7 8.2 6.6 [facility] Tamanna Peters [place] [address] [facility] [id number] 0 Phone: () - 02/11 CA 125 panel CA 125 UNITS/ ML 0.0 34.0 8.70 Test performed at [facility] on a [employer] 2000 Immunoass ay Analyzer that uses an immunoenz ymometric sandwich assay for analysis. Patient testing should not be performed using multiple methoddanelle soto due to analytica l variation seen between test methoddanelle soto. FINAL Tamanna noel Oncology - [place], [address] [facility] [address] [facility] [id number] 0 Phone: () - 02/11 iSTAT creat inine panel Creat inine , iSTAT mg/dl 0.6 1.3 1.3 FINAL Tamanna noel Oncology - [place], [address] 200 [facility] [place] [id number] 0 Phone: () - 02/11 iSTAT creat inine panel GFR estim ate ml/min /1.73m ^2 41.2 Low GFR is calculate d using the CKD-EPI equation. FINAL Tamanna noel Oncology - [place], [address] [place] [id number] 0 Phone: () - 02/11 [facility] other lab See supervisor contingents d 05/23 CBC w/ auto diff WBC K/uL 3.0 8.9 8.9 FINAL Harper noel [facility] - [place], [address] 200 [place] [id number] 0 Phone: () - 05/23 CBC w/ auto diff HGB g/dL 11.3 15.2 15.7 High FINAL Harper noel [facility] - [place], [address] [place] [address] [address] [place] [id number] 0 Phone: () - 05/23 CBC w/ auto diff PLT K/uL 113.0 364.0 220 FINAL [facility] - [place], [address] [place] [address] [address] [place] [id number] 0 Phone: () - 05/23 CBC w/ auto diff Avtar # (ANC) K/uL 1.6 6.6 5.5 FINAL Harper noel [facility] - [place], [address] [place] [address] [address] [place] [id number] 0 Phone: () - 05/23 CBC w/ auto diff Avtar % % 43.0 74.0 62.5 FINAL Harper no[facility] - [place], [address] [place] [address] [address] [place] [id number] 0 Phone: () - 05/23 CBC w/ auto diff IG % % 0.0 0.5 0.5 FINAL [facility] - [place], [address] [place] [address] [address] [place] [id number] 0 Phone: () - 05/23 CBC w/ auto diff IG # K/uL 0.0 0.03 0.04 High FINAL Harper no[facility] - [place], [address] [place] [address] [address] [place] [id number] 0 Phone: () - 05/23 CBC w/ auto diff LY % % 14.0 41.0 22.5 FINAL [facility] no[facility] - [place], [address] [place] [address] [address] [place] [id number] 0 Phone: () - 05/23 CBC w/ auto diff MO % % 6.0 15.0 8.0 FINAL [facility] - [place], [address] [place] [address] [address] [place] [id number] 0 Phone: () - 05/23 CBC w/ auto diff EO % % 0.0 7.0 5.9 FINAL [facility] [place], [address] [place] [address] [address] [place] [id number] 0 Phone: () - 05/23 CBC w/ auto diff BA % % 0.0 2.0 0.6 FINAL [facility] [place], [address] [place] [address] [address] [place] [id number] 0 Phone: () - 05/23 CBC w/ auto diff LY # K/uL 0.4 3.6 2.0 FINAL [facility] [place], [address] [place] [id number] 0 Phone: () - 05/23 CBC w/ auto diff MO # K/uL 0.2 1.3 0.7 FINAL [facility] [place], [address] [place] [id number] 0 Phone: () - 05/23 CBC w/ auto diff EO # K/uL 0.0 0.6 0.5 FINAL [facility] [place], [address] [place] [id number] 0 Phone: () - 05/23 CBC w/ auto diff BA # K/uL 0.0 0.2 0.1 FINAL [facility] [place], [address] [place] [phone] 0 Phone: () - 05/23 CBC w/ auto diff NRBC % #/100W BC 0.0 0.2 0.0 FINAL [facility] [place], [address] [place] [id number] 0 Phone: () - 05/23 CBC w/ auto diff RBC M/uL 3.9 5.1 4.85 FINAL [facility] [place], [address] [place] [phone] 0 Phone: () - 05/23 CBC w/ auto diff HCT % 35.0 48.0 47.1 FINAL [facility] [place], [address] [place] [id number] 0 Phone: () - 05/23 CBC w/ auto diff MCV fL 80.0 104.0 97.1 FINAL [facility] [place], [address] [place] [address] [address] [place] [phone] 0 Phone: () - 05/23 CBC w/ auto diff MCH pg 26.0 35.0 32.4 FINAL [facility] [place], [address] [place] [phone] 0 Phone: () - 05/23 CBC w/ auto diff MCHC g/dL 30.0 35.[address] 33.[address] [facility], [address] [place] [address] 200 [facility] [place] [phone] 0 Phone: () - 05/23 CBC w/ auto diff MPV fL 9.5 13.4 9.[address] [facility], [address] [place] [address] 200 [facility] [place] [phone] 0 Phone: () - 05/23 CBC w/ auto diff RDW % 11.4 16.[address] [facility], [address] 200 [facility] [phone] 0 Phone: () - 05/23 CMP Album in g/dL 3.2 5.2 4.6 [facility] [address] [facility] [address] [place] [id number] 0 Phone: () - 05/23 CMP Alkal ine phosp hatas e U/L 46.0 116.0 58 [facility] [address] [phone] 0 Phone: () - 05/23 CMP ALT/S GPT U/L 7.0 40.0 11 [place]AL [place] [address] [address] [facility] [address] [id number] 0 Phone: () - 05/23 CMP AST/S GOT U/L 13.0 40.0 23 FINAL Harper Wheeler [place] [address] [address] [facility] [address] [phone] 0 Phone: () - 05/23 CMP BUN mg/dL 9.0 23.0 15 FINAL [place] [address] [address] [facility] [address] [place] [id number] 0 Phone: () - 05/23 CMP Calci um mg/dL 8.7 10.4 10.1 FINAL Harper noel [place] [address] [phone] 0 Phone: () - 05/23 CMP Chlor sathish mmol/L 96.0 114.0 88 Low FINAL Harper noel [place] [address] [phone] 0 Phone: () - 05/23 CMP CO2 [...] 96 hour stability window. FINAL Harper noel [place] [address] [phone] 0 Phone: () - 05/23 CMP Creat inine mg/dL 0.5 1.2 0.97 FINAL [place] [address] [id number] 0 Phone: () - 05/23 CMP GFR estim ate ml/min /1.73m ^2 58.5 Low GFR is calculate d using the CKD-EPI equation. FINAL Harper Wheeler [place] [address] [phone] 0 Phone: () - 05/23 CMP Gluco se mg/dL 73.0 126.0 72 Low FINAL [place] [address] [id number] 0 Phone: () - 05/23 CMP Potas sium mmol/L 3.5 5.1 4.8 FINAL [place] [address] [phone] 0 Phone: () - 05/23 CMP Sodiu m mmol/L 136.0 145.0 129 Low FINAL [place] [address] [place] [phone] 0 Phone: () - 05/23 CMP Bilir ubin, total mg/dL 0.3 1.2 0.3 FINAL Harper noel [facility], [address] [facility] [address] [facility] [phone] 0 Phone: () - 05/23 CMP Total prote in g/dL 5.7 8.2 7.3 [facility] [address] [facility] 100 [facility] [phone] 0 Phone: () - 05/23 CA 125 panel CA 125 UNITS/ ML 0.0 34.0 7.00 Test performed at [facility] on a [employer] 2000 Immunoass ay Analyzer that uses an immunoenz ymometric sandwich assay for analysis. Patient testing should not be performed using multiple methodolo gies due to analytica l variation seen between test methodolo gies. [facility], [address] [facility] 100 [facility] [phone] 0 Phone: () - 05/23 [facility] other lab See supervisor contingents d 08/11 [facility] other lab See supervisor contingents d 11/10 [facility] other lab See supervisor contingents d 11/14 [facility] other lab See supervisor contingents d 11/16 [facility] other lab See supervisor contingents d 02/17 [facility] other lab See supervisor contingents d 03/11 [facility] other lab See supervisor contingents d 03/24 [facility] other lab See supervisor contingents d 04/07 [facility] other lab See supervisor contingents d 05/18 CA 125 panel CA 125 UNITS/ ML 0.0 34.0 9.50 Test performed at [facility] on a [employer] 2000 Immunoass ay Analyzer that uses an immunoenz ymometric sandwich assay for analysis. Patient testing should not be performed using multiple methodolo gies due to analytica l variation seen between test methodolo gies. FINAL Harper noel [facility], [address] [facility] 100 [facility] [phone] 0 Phone: () - 11/06 [facility] other lab See supervisor contingents d 11/14 CA 125 panel CA 125 UNITS/ ML 0.0 34.0 12.60 Test performed at [facility] on a [employer] 2000 Immunoass ay Analyzer that uses an immunoenz ymometric sandwich assay for analysis. Patient testing should not be performed using multiple methodolo gies due to analytica l variation seen between test methodolo gies. FINAL Harper Wheeler [facility] [place], [address] [facility] [address] [facility] [phone] 0 Phone: () - 02/20 [facility] other lab See supervisor contingents d 05/23 CA 125 panel CA 125 UNITS/ ML 0.0 34.0 10.30 Test performed at [facility] on a [employer] 2000 Immunoass ay Analyzer that uses an immunoenz ymometric sandwich assay for analysis. Patient testing should not be performed using multiple methodolo gies due to analytica l variation seen between test methodolo gies. FINAL Pippa worthington [facility] [place], [address] [facility] [address] [facility] [phone] 0 Phone: () - 09/04 [facility] other lab See supervisor contingents d 09/07 CA 125 panel CA 125 UNITS/ ML 0.0 34.0 9.80 Test performed at [facility] on a [employer] 2000 Immunoass ay Analyzer that uses an immunoenz ymometric sandwich assay for analysis. Patient testing should not be performed using multiple methodolo gies due to analytica l variation seen between test methodolo gies. FINAL Theresa worthington [facility] [place], [address] [facility] [address] [facility] [phone] 0 Phone: () - 03/17 CA 125 panel CA 125 U/ML 0.0 35.0 12.40 Test performed at [facility] on a [employer] 7600 Immunoass ay Analyzer that uses an immunomet negro immunoass ay technique . Patient testing should not be performed using multiple methodolo gies due to analytica l variation seen between test methodolo gies. FINAL Theresa Alvares [facility] [place], [address] [facility] [phone] 0 09/15 CA 125 panel CA 125 U/ML 0.0 35.0 8.60 Test performed at [facility] on a [employer] 7600 Immunoass ay Analyzer that uses an immunomet negro immunoass ay technique . Patient testing should not be performed using multiple methodolo gies due to analytica l variation seen between test methodolo gies. FINAL Pippa worthington * [facility] , [address] [facility] [address] [facility] [phone] 0 03/17 CA 125 panel CA 125 U/ML 0.0 35.0 8.90 Test performed at [facility] on a [employer] 7600 Immunoass ay Analyzer that uses an immunomet negro immunoass ay technique . Patient testing should not be performed using multiple methodolo gies due to analytica l variation seen between test methodolo gies. FINAL Pippa worthington * [facility] , [address] [facility] [address] [facility] [phone] Medications Date Name Route Dose Frequency [...] Active Vital Signs Date Type Value 11/24/2019 Oxygen Saturation 93.00 11/24/2019 Heart Beat 81.00 11/24/2019 Body Temperature 98.00 11/24/2019 BSA 2.01 11/24/2019 Intravascular Systolic 120 11/24/2019 Intravascular Diastolic 70 11/24/2019 Height 64.50 11/24/2019 Weight 211.00 11/24/2019 Pain Scale 0.00 11/24/2019 Respiratory Rate 16.00 11/24/2019 BMI 35.66 12/22/2019 BSA 2.03 12/22/2019 BMI 36.33 12/22/2019 Height 64.50 12/22/2019 Weight 215.00 12/22/2019 Pain Scale 0.00 12/22/2019 Intravascular Systolic 142 12/22/2019 Intravascular Diastolic 84 12/22/2019 Oxygen Saturation 95.00 12/22/2019 Respiratory Rate 22.00 12/22/2019 Body Temperature 98.20 12/22/2019 Heart Beat 80.00 01/19/2020 Intravascular Systolic 140 01/19/2020 Intravascular Diastolic [...]
--- OUTSIDE RECORDS SUMMARY | 2025-07-20 00:12 | XMS_ITS ---
Author Name Interface, [id number] lity Address [address] [facility] [address] [address] [facility] Address [address] [facility] [address] [address] Allergies and Adverse Reactions Medication/Group Name Reaction [...] APPOINTMENT CT - 605 CT CAP @ [facility] - CHECK IN @10 AM 11/22/2020 [...] uIU/ml 0.32 5.0 1.83 Test performed at [facility] on a [employer] 2000 Immunoass ay Analyzer that uses an immunoenz ymometric sandwich assay for analysis. Patient testing should not be performed using multiple methodolo gies due to analytica l variation seen between test methodolo gies. FINAL Annamarie Peters [facility], [address] [place] [address] [phone] 0 Phone: () - 11/23 CA 125 panel CA 125 UNITS/ ML 0.0 34.0 7.50 Test performed at [facility] on a [employer] Immunoass ay Analyzer that uses an immunoenz ymometric sandwich assay for analysis. Patient testing should not be performed using multiple methodolo gies due to analytica l variation seen between test methodolo gies. FINAL [facility], [address] [place] [address] [phone] 0 Phone: () - 11/23 CBC w/ auto diff WBC K/uL 3.0 8.9 8.3 FINAL Annamarie Mcginnis bert [address] 200 [facility] [phone] [phone] Phone: () - 11/23 CBC w/ auto diff HGB g/dL 11.3 15.2 12.4 FINAL Annamarie Mcginnis bert [address] 200 [facility] [phone] 0 Phone: () - 11/23 CBC w/ auto diff PLT K/uL 113.0 364.0 187 FINAL Annamarie noel Oncology - [place] [facility], [address] 200 [facility] [place] [phone] 0 Phone: () - 11/23 CBC w/ auto diff Avtar # (ANC) K/uL 1.6 6.6 4.4 FINAL Annamarie Mcginnisot a Oncology - [place] [facility], [address] 200 [facility] [place] [id number] 0 Phone: () - 11/23 CBC w/ auto diff Avtar % % 43.0 74.0 53.4 FINAL Annamarie Peters a Oncology - [place] [facility], [address] [place] [address] 200 [facility] [place] [phone] 0 Phone: () - 11/23 CBC w/ auto diff IG % % 0.0 0.5 0.8 High FINAL Annamarie Peters a Oncology - [place] [facility], [address] [place] [address] 200 [facility] [place] [phone] 0 Phone: () - 11/23 CBC w/ auto diff IG # K/uL 0.0 0.03 0.07 High FINAL Annamarie Peters a Oncology - [place] [facility], [address] [place] [address] 200 [facility] [place] [phone] 0 Phone: () - 11/23 CBC w/ auto diff LY % % 14.0 41.0 31.7 FINAL Annamarie Mcginnisot a Oncology - [place] [facility], [address] [place] [address] 200 [facility] [place] [phone] 0 Phone: () - 11/23 CBC w/ auto diff MO % % 6.0 15.0 8.5 FINAL Annamarie Mcginnisot a Oncology - [place] [facility], [address] [place] [address] 200 [facility] [place] [id number] 0 Phone: () - 11/23 CBC w/ auto diff EO % % 0.0 7.0 4.8 FINAL Annamarie Mcginnisot a Oncology - [place] [facility], [address] [place] [address] 200 [facility] [phone] 0 Phone: () - 11/23 CBC w/ auto diff BA % % 0.0 2.0 0.8 FINAL Annamarie Mcginnisot a Oncology - [place] [facility], [address] [place] [id number] 0 Phone: () - 11/23 CBC w/ auto diff LY # K/uL 0.4 3.6 2.6 FINAL Annamarie Mcginnisot a Oncology - [place] [facility], [address] [place] [id number] 0 Phone: () - 11/23 CBC w/ auto diff MO # K/uL 0.2 1.3 0.7 FINAL Annamarie Mcginnisot a Oncology - [place] [facility], [facility] [address] 200 [place] [id number] 0 Phone: () - 11/23 CBC w/ auto diff EO # K/uL 0.0 0.6 0.4 FINAL Annamarie Mcginnisot a Oncology - [place] [facility], [facility] [address] 200 [place] [id number] 0 Phone: () - 11/23 CBC w/ auto diff BA # K/uL 0.0 0.2 0.1 FINAL Annamarie Mcginnisot a Oncology - [place] [facility], [address] [place] [address] 200 [place] [id number] 0 Phone: () - 11/23 CBC w/ auto diff NRBC % #/100W BC 0.0 0.2 0.0 FINAL Annamarie Mcginnisot a Oncology - [place] [facility], [facility] [address] [place] [id number] 0 Phone: () - 11/23 CBC w/ auto diff RBC M/uL 3.9 5.1 3.61 Low FINAL Annamarie Mcginnisot a Oncology - [place] [facility], [facility] [address] [place] [id number] 0 Phone: () - 11/23 CBC w/ auto diff HCT % 35.0 48.0 36.4 FINAL Annamarie Mcginnisot a Oncology - [place] [facility], [address] [place] [id number] 0 Phone: () - 11/23 CBC w/ auto diff MCV fL 80.0 104.0 100.8 FINAL Annamarie Mcginnisot a Oncology - [place], [address] [place] [address] [address] [place] [id number] 0 Phone: () - 11/23 CBC w/ auto diff MCH pg 26.0 35.0 34.3 FINAL Annamarie Mcginnisot bert Oncology - [place], [address] [place] [address] [address] [place] [id number] 0 Phone: () - 11/23 CBC w/ auto diff MCHC g/dL 30.0 35.0 34.1 FINAL Annamarie Mcginnisot a Oncology - [place], [address] [place] [address] [address] [place] [id number] 0 Phone: () - 11/23 CBC w/ auto diff MPV fL 9.5 13.4 9.3 Low FINAL Annamarie Mcginnisot a Oncology - [place], [address] [place] [address] [address] [place] [id number] 0 Phone: () - 11/23 CBC w/ auto diff RDW % 11.4 16.1 12.50 FINAL Annamarie Mcginnisot a Oncology - [place], [address] [place] [address] [address] [place] [id number] 0 Phone: () - 11/23 CMP Sodiu [...] GOT IU/L 2.0 40.0 37 Test Performed by:[facility] [address], [address] - [facility] [place] [address]Dtbx e [phone] FINAL Annamarie Smith ast 11/23 [facility] other lab See psychiatry instructor d 11/23 [facility] other lab See psychiatry instructor d 12/21 CBC w/ auto diff WBC K/uL 3.0 8.9 8.3 FINAL Tamannamar Mcginnisot a Oncology - [facility], [address] [place] [address] [address] [place] [id number] 0 Phone: () - 12/21 CBC w/ auto diff HGB g/dL 11.3 15.2 12.1 FINAL Tamanna noel Oncology - [place] [facility], [address] [place] [address] [address] [place] [id number] 0 Phone: () - 12/21 CBC w/ auto diff PLT K/uL 113.0 364.0 160 FINAL Tamanna noel Oncology - [place] [facility], [address] [place] [address] [address] [place] [id number] 0 Phone: () - 12/21 CBC w/ auto diff Avtar # (ANC) K/uL 1.6 6.6 4.4 FINAL Tamanna noel Oncology - [place], [address] [place] [id number] 0 Phone: () - 12/21 CBC w/ auto diff Avtar % % 43.0 74.0 52.5 FINAL Tamanna noel Oncology - [place], [address] [place] [id number] 0 Phone: () - 12/21 CBC w/ auto diff IG % % 0.0 0.5 0.6 High FINAL Tamanna noel Oncology - [place], [address] [place] [id number] 0 Phone: () - 12/21 CBC w/ auto diff IG # K/uL 0.0 0.03 0.05 High FINAL Tamanna noel Oncology - [place], [address] [place] [id number] 0 Phone: () - 12/21 CBC w/ auto diff LY % % 14.0 41.0 32.3 FINAL Tamanna noel Oncology - [place] [facility], [address] [place] [address] [address] [place] [id number] 0 Phone: () - 12/21 CBC w/ auto diff MO % % 6.0 15.0 7.9 FINAL Tamanna noel Oncology - [place], [address] [place] [id number] 0 Phone: () - 12/21 CBC w/ auto diff EO % % 0.0 7.0 5.9 FINAL Tamanna noel Oncology - [place], [address] [place] [id number] 0 Phone: () - 12/21 CBC w/ auto diff BA % % 0.0 2.0 0.8 FINAL Tamanna noel Oncology - [place] [facility], [address] [place] [id number] 0 Phone: () - 12/21 CBC w/ auto diff LY # K/uL 0.4 3.6 2.7 FINAL Tamanna noel Oncology - [place], [address] [place] [id number] 0 Phone: () - 12/21 CBC w/ auto diff MO # K/uL 0.2 1.3 0.7 FINAL Tamanna noel Oncology - [place], [address] 200 [place] [id number] 0 Phone: () - 12/21 CBC w/ auto diff EO # K/uL 0.0 0.6 0.5 FINAL Tamanna noel Oncology - [place], [address] 200 [place] [id number] 0 Phone: () - 12/21 CBC w/ auto diff BA # K/uL 0.0 0.2 0.1 FINAL Tamanna noel Oncology - [place], [address] 200 [place] [id number] 0 Phone: () - 12/21 CBC w/ auto diff NRBC % #/100W BC 0.0 0.2 0.0 FINAL Tamanna noel Oncology - [place], [address] [place] [id number] 0 Phone: () - 12/21 CBC w/ auto diff RBC M/uL 3.9 5.1 3.49 Low FINAL Tamanna noel Oncology - [place] [facility], [address] [place] [id number] 0 Phone: () - 12/21 CBC w/ auto diff HCT % 35.0 48.0 35.2 FINAL Tamanna noel Oncology - [place], [address] [place] [id number] 0 Phone: () - 12/21 CBC w/ auto diff MCV fL 80.0 104.0 100.9 FINAL Tamanna noel Oncology [facility], [address] 200 [facility] [id number] 0 Phone: () - 12/21 CBC w/ auto diff MCH pg 26.0 35.0 34.7 FINAL Tamanna noel Oncology [facility], [address] 200 [facility] [id number] 0 Phone: () - 12/21 CBC w/ auto diff MCHC g/dL 30.0 35.0 34.4 FINAL Tamanna noel Oncology [facility], [address] [place] [address] 200 [facility] [id number] 0 Phone: () - 12/21 CBC w/ auto diff MPV fL 9.5 13.4 9.5 FINAL Tamanna noel [facility], [address] [place] [address] 200 [facility] [id number] 0 Phone: () - 12/21 CBC w/ auto diff RDW % 11.4 16.1 12.80 FINAL Tamanna noel [facility], [address] [place] [address] 200 [facility] [id number] Phone: () - 12/21 TSH panel TSH uIU/ml 0.32 5.0 1.49 Test performed at [facility] on a [employer] 2000 Immunoass ay Analyzer that uses an immunoenz ymometric sandwich assay for analysis. Patient testing should not be performed using multiple methodolo gies due to analytica l variation seen between test methodolo gies. FINAL Tamanna noel [facility], [address] [facility] 100 [facility] [id number] 0 Phone: () - 12/21 CA 125 panel CA 125 UNITS/ ML 0.0 34.0 7.70 Test performed at [facility] on a [employer] 2000 Immunoass ay Analyzer that uses an immunoenz ymometric sandwich assay for analysis. Patient testing should not be performed using multiple methodolo gies due to analytica l variation seen between test methodolo gies. FINAL Tamanna noel [facility] [address] [facility] [address] [facility] [phone] 0 Phone: () - 12/21 CMP Sodiu [...] GOT IU/L 2.0 40.0 40 Test Performed by:[facility] [address], [address] - [facility] [place] [address]Nlgn e : FINAL Tamanna Rolon 12/21 Misc other lab See psychiatry instructor d 01/18 CMP Sodiu m mmol/L 135.0 [...] GOT IU/L 2.0 40.0 34 Test Performed by:[facility] [address], [address] - [facility], [place] [address]Hugc e : FINAL Tamanna Rolon 01/18 CBC w/ auto diff WBC K/uL 3.0 8.9 8.1 FINAL Tamanna noel Oncology - [facility], [address] [place] [address] [address] [place] [id number] 0 Phone: () - 01/18 CBC w/ auto diff HGB g/dL 11.3 15.2 11.7 FINAL Tamanna noel Oncology - [facility], [address] [place] [address] [address] [place] [id number] 0 Phone: () - 01/18 CBC w/ auto diff PLT K/uL 113.0 364.0 156 FINAL Tamanna noel Oncology - [facility], [address] [place] [id number] 0 Phone: () - 01/18 CBC w/ auto diff Avtar # (ANC) K/uL 1.6 6.6 4.3 FINAL Tamanna noel [facility], [address] [place] [address] [address] [place] [id number] 0 Phone: () - 01/18 CBC w/ auto diff Avtar % % 43.0 74.0 52.3 FINAL Tamanna noel Oncology [facility], [address] [place] [address] [address] [place] [id number] 0 Phone: () - 01/18 CBC w/ auto diff IG % % 0.0 0.5 0.5 FINAL Tamanna noel Oncology - [place], [address] 200 [facility] [id number] 0 Phone: () - 01/18 CBC w/ auto diff IG # K/uL 0.0 0.03 0.04 High FINAL Tamanna noel Oncology - [place], [address] 200 [facility] [id number] 0 Phone: () - 01/18 CBC w/ auto diff LY % % 14.0 41.0 31.7 FINAL Tamanna noel Oncology - [place], [address] [place] [address] 200 [facility] [id number] 0 Phone: () - 01/18 CBC w/ auto diff MO % % 6.0 15.0 10.4 FINAL Tamanna noel Oncology - [place], [address] [place] [address] 200 [facility] [id number] 0 Phone: () - 01/18 CBC w/ auto diff EO % % 0.0 7.0 4.5 FINAL Tamanna noel Oncology - [place] [facility], [address] [place] [address] 200 [facility] [id number] 0 Phone: () - 01/18 CBC w/ auto diff BA % % 0.0 2.0 0.6 FINAL Tamanna noel Oncology - [place] [facility], [address] [place] [address] 200 [facility] [id number] 0 Phone: () - 01/18 CBC w/ auto diff LY # K/uL 0.4 3.6 2.6 FINAL Tamanna noel Oncology - [place], [address] [place] [address] 200 [facility] [place] [id number] 0 Phone: () - 01/18 CBC w/ auto diff MO # K/uL 0.2 1.3 0.9 FINAL Tamanna noel Oncology - [place], [address] 200 [facility] [id number] 0 Phone: () - 01/18 CBC w/ auto diff EO # K/uL 0.0 0.6 0.4 FINAL Tamanna noel Oncology - [place], [address] [place] [id number] 0 Phone: () - 01/18 CBC w/ auto diff BA # K/uL 0.0 0.2 0.1 FINAL Tamanna noel Oncology - [place], [address] [place] [id number] 0 Phone: () - 01/18 CBC w/ auto diff NRBC % #/100W BC 0.0 0.2 0.0 FINAL Tamanna noel Oncology - [place], [address] [place] [id number] 0 Phone: () - 01/18 CBC w/ auto diff RBC M/uL 3.9 5.1 3.36 Low FINAL Tamanna noel Oncology - [place], [address] [place] [id number] 0 Phone: () - 01/18 CBC w/ auto diff HCT % 35.0 48.0 34.2 Low FINAL Tamanna noel Oncology - [place], [address] [place] [id number] 0 Phone: () - 01/18 CBC w/ auto diff MCV fL 80.0 104.0 101.8 FINAL Tamanna noel Oncology - [place], [address] [place] [id number] 0 Phone: () - 01/18 CBC w/ auto diff MCH pg 26.0 35.0 34.8 FINAL Tamanna noel Oncology - [place], [address] [place] [id number] 0 Phone: () - 01/18 CBC w/ auto diff MCHC g/dL 30.0 35.0 34.2 FINAL Tamanna noel Oncology - [place], [address] [place] [id number] 0 Phone: () - 01/18 CBC w/ auto diff MPV fL 9.5 13.4 9.7 FINAL [facility], [address] [place] [address] [address] [place] [id number] 0 Phone: () - 01/18 CBC w/ auto diff RDW % 11.4 16.1 13.20 FINAL [facility] no[facility], [address] [place] [id number] 0 Phone: () - 01/18 TSH panel TSH uIU/ml 0.32 5.0 1.55 Test performed at [facility] on a [employer] 2000 Immunoass ay Analyzer that uses an immunoenz ymometric sandwich assay for analysis. Patient testing should not be performed using multiple methodolo gies due to analytica l variation seen between test methodolo gies. FINAL Tamanna noel [facility], [address] [place] [address] [id number] 0 Phone: () - 01/18 CA 125 panel CA 125 UNITS/ ML 0.0 34.0 9.40 Test performed at [facility] on a [employer] Immunoass ay Analyzer that uses an immunoenz ymometric sandwich assay for analysis. Patient testing should not be performed using multiple methodolo gies due to analytica l variation seen between test methodolo gies. FINAL Tamanna noel [facility], [address] [place] [address] [id number] 0 Phone: () - 01/18 [facility] other lab See psychiatry instructor d 02/15 CBC w/ auto diff WBC K/uL 3.0 8.9 9.3 High FINAL Annamarie Mcginnis bert Oncology - [place] [facility], [address] [place] [id number] 0 Phone: () - 02/15 CBC w/ auto diff HGB g/dL 11.3 15.2 11.8 FINAL Annamarie Mcginnis bert Oncology - [place] [facility], [address] [place] [id number] 0 Phone: () - 02/15 CBC w/ auto diff PLT K/uL 113.0 364.0 165 FINAL Annamarie rivero [facility], [address] [place] [address] [address] [place] [id number] 0 Phone: () - 02/15 CBC w/ auto diff Avtar # (ANC) K/uL 1.6 6.6 5.3 FINAL Annamarie Mcginnisot a Oncology - [place] [facility], [address] 200 [facility] [place] [id number] 0 Phone: () - 02/15 CBC w/ auto diff Avtar % % 43.0 74.0 57.3 FINAL Annamarie Mcginnisot a Oncology - [place] [facility], [address] [place] [address] 200 [facility] [place] [id number] 0 Phone: () - 02/15 CBC w/ auto diff IG % % 0.0 0.5 0.6 High FINAL Annamarierenny Mcginnisot a Oncology - [place] [facility], [address] 200 [facility] [place] [id number] 0 Phone: () - 02/15 CBC w/ auto diff IG # K/uL 0.0 0.03 0.06 High FINAL Annamarie Mcginnisot a Oncology - [place] [facility], [address] 200 [facility] [place] [id number] 0 Phone: () - 02/15 CBC w/ auto diff LY % % 14.0 41.0 27.4 FINAL Annamarie Mcginnisot a Oncology - [place] [facility], [address] 200 [facility] [place] [id number] 0 Phone: () - 02/15 CBC w/ auto diff MO % % 6.0 15.0 9.1 FINAL Annamarie Mcginnisot a Oncology - [place] [facility], [address] [place] [address] 200 [facility] [place] [id number] 0 Phone: () - 02/15 CBC w/ auto diff EO % % 0.0 7.0 5.0 FINAL Annamarierenny Mcginnisot a Oncology - [place] [facility], [address] [place] [address] 200 [place] [id number] 0 Phone: () - 02/15 CBC w/ auto diff BA % % 0.0 2.0 0.6 FINAL Annamarierenny Mcginnisot a Oncology - [place] [facility], [address] [place] [address] [address] [facility] [place] [id number] 0 Phone: () - 02/15 CBC w/ auto diff LY # K/uL 0.4 3.6 2.5 FINAL Annamarie Mcginnisot a Oncology - [place] [facility], [address] [place] [address] [address] [place] [id number] 0 Phone: () - 02/15 CBC w/ auto diff MO # K/uL 0.2 1.3 0.8 FINAL Annamarie Mcginnisot a Oncology - [place] [facility], [address] [place] [address] [address] [place] [id number] 0 Phone: () - 02/15 CBC w/ auto diff EO # K/uL 0.0 0.6 0.5 FINAL Annamarie Mcginnisot a Oncology - [place] [facility], [address] [place] [address] 200 [place] [id number] 0 Phone: () - 02/15 CBC w/ auto diff BA # K/uL 0.0 0.2 0.1 FINAL Annamarie Mcginnisot a Oncology - [place] [facility], [address] [place] [address] 200 [place] [id number] 0 Phone: () - 02/15 CBC w/ auto diff NRBC % #/100W BC 0.0 0.2 0.0 FINAL Annamarie Mcginnisot a Oncology - [place] [facility], [address] [place] [address] 200 [place] [id number] 0 Phone: () - 02/15 CBC w/ auto diff RBC M/uL 3.9 5.1 3.41 Low FINAL Annamarie Mcginnisot a Oncology - [place] [facility], [address] [place] [address] [address] [place] [id number] 0 Phone: () - 02/15 CBC w/ auto diff HCT % 35.0 48.0 35.1 FINAL Annamarie Mcginnisot a Oncology - [place] [facility], [address] [place] [address] [address] [place] [id number] 0 Phone: () - 02/15 CBC w/ auto diff MCV fL 80.0 104.0 102.9 FINAL Annamarie Mcginnisot a Oncology - [place] [facility], [address] [place] [address] [address] [place] [id number] 0 Phone: () - 02/15 CBC w/ auto diff MCH pg 26.0 35.0 34.6 FINAL Annamarie Mcginnisot a Oncology - [place], [address] [place] [address] [address] [place] [id number] 0 Phone: () - 02/15 CBC w/ auto diff MCHC g/dL 30.0 35.0 33.6 FINAL Annamarie Mcginnisot a Oncology - [place], [address] [place] [address] [address] [place] [id number] 0 Phone: () - 02/15 CBC w/ auto diff MPV fL 9.5 13.4 9.4 Low FINAL Annamarie Mcginnisot a Oncology - [place], [address] [place] [address] [address] [place] [id number] 0 Phone: () - 02/15 CBC w/ auto diff RDW % 11.4 16.1 13.20 FINAL Annamarie Mcginnisot bert Oncology - [place], [address] [place] [address] [address] [place] [id number] 0 Phone: () - 02/15 CMP Creat [...] GOT IU/L 2.0 40.0 31 Test Performed by:[facility] [address] - [facility] [place] [address]Wwmc e : FINAL Annamarie Smithg ast 02/15 [...] to KYLAH 2004; 291: 228-238.T est Performed by:[facility] [address] - [facility], [place] [address]Cumj e : FINAL Annamarie Smith ast 02/15 CA 125 panel CA 125 UNITS/ ML 0.0 34.0 8.40 Test performed at [facility] on a [employer] 2000 Immunoass ay Analyzer that uses an immunoenz ymometric sandwich assay for analysis. Patient testing should not be performed using multiple methodolo gies due to analytica l variation seen between test methodolo gies. FINAL Annamarie noel Oncology [facility], [address] [place] [address] [id number] [phone] Phone: () - 02/15 [facility] other lab See psychiatry instructor d 03/15 TSH panel TSH uIU/ml 0.32 5.0 3.10 Test performed at [facility] on a [employer] 2000 Immunoass ay Analyzer that uses an immunoenz ymometric sandwich assay for analysis. Patient testing should not be performed using multiple methodolo gies due to analytica l variation seen between test methodolo gies. FINAL Annamarie noel [facility], [address] [place] [address] [phone] 0 Phone: () - 03/15 CBC w/ auto diff WBC K/uL 3.0 8.9 8.9 FINAL [facility], [address] [place] [address] 200 [place] [id number] 0 Phone: () - 03/15 CBC w/ auto diff HGB g/dL 11.3 15.2 12.1 FINAL Annamarie noel [facility], [address] [place] [address] 200 [place] [id number] 0 Phone: () - 03/15 CBC w/ auto diff PLT K/uL 113.0 364.0 171 FINAL Annamarie noel [facility], [address] [place] [address] 200 [place] [id number] 0 Phone: () - 03/15 CBC w/ auto diff Avtar # (ANC) K/uL 1.6 6.6 5.2 FINAL Annamarie noel [facility], [address] [place] [address] 200 [place] [id number] 0 Phone: () - 03/15 CBC w/ auto diff Avtar % % 43.0 74.0 58.5 FINAL Annamarie noel [facility], [address] [place] [address] [address] [place] [id number] 0 Phone: () - 03/15 CBC w/ auto diff IG % % 0.0 0.5 0.7 High FINAL Annamarie noel Oncology - [place] [facility], [address] 200 [facility] [id number] 0 Phone: () - 03/15 CBC w/ auto diff IG # K/uL 0.0 0.03 0.06 High FINAL Annamarie Mcginnisot a Oncology - [place] [facility], [address] [place] [address] 200 [facility] [id number] 0 Phone: () - 03/15 CBC w/ auto diff LY % % 14.0 41.0 27.2 FINAL Annamarie Peters a Oncology - [place] [facility], [address] [place] [address] 200 [facility] [id number] 0 Phone: () - 03/15 CBC w/ auto diff MO % % 6.0 15.0 7.4 FINAL Annamarie Mcginnisot a Oncology - [place] [facility], [address] [place] [address] 200 [facility] [id number] 0 Phone: () - 03/15 CBC w/ auto diff EO % % 0.0 7.0 5.5 FINAL Annamarie Mcginnisot a Oncology - [facility], [address] [place] [address] 200 [facility] [id number] 0 Phone: () - 03/15 CBC w/ auto diff BA % % 0.0 2.0 0.7 FINAL Annamarie Mcginnisot a Oncology - [facility], [address] [place] [address] 200 [facility] [id number] 0 Phone: () - 03/15 CBC w/ auto diff LY # K/uL 0.4 3.6 2.4 FINAL Annamarie Mcginnisot a Oncology - [facility], [address] [place] [address] 200 [facility] [id number] 0 Phone: () - 03/15 CBC w/ auto diff MO # K/uL 0.2 1.3 0.7 FINAL Annamarie Mcginnisot a Oncology - [facility], [address] [place] [address] 200 [facility] [id number] 0 Phone: () - 03/15 CBC w/ auto diff EO # K/uL 0.0 0.6 0.5 FINAL Annamarie noel Oncology - [facility], [facility] [address] 200 [place] [id number] 0 Phone: () - 03/15 CBC w/ auto diff BA # K/uL 0.0 0.2 0.1 FINAL Annamarie Mcginnisot bert Oncology - [facility], [facility] [address] 200 [place] [id number] 0 Phone: () - 03/15 CBC w/ auto diff NRBC % #/100W BC 0.0 0.2 0.0 FINAL Annamarie Mcginnisot bert [facility], [address] [place] [address] 200 [place] [id number] 0 Phone: () - 03/15 CBC w/ auto diff RBC M/uL 3.9 5.1 3.41 Low FINAL Annamarie Mcginnisot bert [facility] [address] [place] [address] 200 [place] [id number] 0 Phone: () - 03/15 CBC w/ auto diff HCT % 35.0 48.0 35.5 FINAL Annamarie noel [facility], [address] [place] [address] 200 [place] [id number] 0 Phone: () - 03/15 CBC w/ auto diff MCV fL 80.0 104.0 104.1 High FINAL Annamarie Mcginnisot bert [facility], [address] [place] [address] 200 [place] [id number] 0 Phone: () - 03/15 CBC w/ auto diff MCH pg 26.0 35.0 35.5 High FINAL Annamarierenny Mcginnisot a [facility], [address] [place] [address] 200 [place] [id number] 0 Phone: () - 03/15 CBC w/ auto diff MCHC g/dL 30.0 35.0 34.1 FINAL Annamarierenny Mcginnisot a Oncology - [facility], [facility] [address] 200 [place] [id number] 0 Phone: () - 03/15 CBC w/ auto diff MPV fL 9.5 13.4 9.6 FINAL Annamarie Mcginnisot bert Oncology - [facility], [address] [place] [address] [address] [facility] [place] [id number] 0 Phone: () - 03/15 CBC w/ auto diff RDW % 11.4 16.1 13.00 FINAL Annamarie noel Oncology - [facility], [address] [place] [address] [address] [facility] [place] [id number] 0 Phone: () - 03/15 CA 125 panel CA 125 UNITS/ ML 0.0 34.0 8.00 Test performed at [facility] on a [employer] 2000 Immunoass ay Analyzer that uses an immunoenz ymometric sandwich assay for analysis. Patient testing should not be performed using multiple methoddanelle soto due to analytica l variation seen between test methoddanelle soto. FINAL Annamarie noel Oncology [facility], [address] [facility] 100 [facility] [phone] 0 Phone: () - 03/15 CMP Sodiu [...] GOT IU/L 2.0 40.0 29 Test Performed by:[facility] [address], [address] - [facility] [place] [id number] e [phone] FINAL Annamarie Zamorano ast 03/15 [facility] other lab See psychiatry instructor d 03/15 [facility] other lab See psychiatry instructor d 03/24 [facility] other lab See psychiatry instructor d 04/12 CBC w/ auto diff MCH pg 26.0 35.0 35.0 FINAL Annamarie Zamorano ast [place] - [facility], [address] [place] [id number] 0 Phone: () - 04/12 CBC w/ auto diff MCHC g/dL 30.0 35.0 33.1 FINAL Annamarie Zamorano ast [place] [facility] - [place], [address] [place] [id number] 0 Phone: () - 04/12 CBC w/ auto diff MPV fL 9.5 13.4 9.5 FINAL Annamarie Mcginnisot a Oncology - [place], [address] [place] [address] [address] [place] [id number] 0 Phone: () - 04/12 CBC w/ auto diff RDW % 11.4 16.1 12.90 FINAL Annamarie Mcginnisot a Oncology - [place], [address] [place] [address] [address] [place] [id number] 0 Phone: () - 04/12 CBC w/ auto diff WBC K/uL 3.0 8.9 8.9 FINAL Annamarie Mcginnisot a Oncology - [facility], [address] [place] [address] [address] [place] [id number] 0 Phone: () - 04/12 CBC w/ auto diff HGB g/dL 11.3 15.2 11.8 FINAL Annamarie Mcginnisot a Oncology - [facility], [address] [place] [address] [address] [place] [id number] 0 Phone: () - 04/12 CBC w/ auto diff PLT K/uL 113.0 364.0 162 FINAL Annamarie Mcginnisot a Oncology - [facility], [address] [place] [address] [address] [place] [id number] 0 Phone: () - 04/12 CBC w/ auto diff Avtar # (ANC) K/uL 1.6 6.6 5.0 FINAL Annamarie Mcginnisot a Oncology - [facility], [address] [place] [address] [address] [place] [id number] 0 Phone: () - 04/12 CBC w/ auto diff Avtar % % 43.0 74.0 56.1 FINAL Annamarie Mcginnisot a Oncology - [facility], [address] [place] [address] [address] [place] [id number] 0 Phone: () - 04/12 CBC w/ auto diff IG % % 0.0 0.5 0.7 High FINAL Annamarie Mcginnisot a Oncology - [facility], [address] [place] [address] [address] [place] [id number] 0 Phone: () - 04/12 CBC w/ auto diff IG # K/uL 0.0 0.03 0.06 High FINAL Annamarie noel Oncology - [place], [address] [place] [address] [address] [place] [id number] 0 Phone: () - 04/12 CBC w/ auto diff LY % % 14.0 41.0 29.0 FINAL Annamarie noel Oncology - [place], [address] [place] [address] [address] [place] [id number] 0 Phone: () - 04/12 CBC w/ auto diff MO % % 6.0 15.0 7.8 FINAL Annamarie noel Oncology - [place], [address] [place] [address] [address] [place] [id number] 0 Phone: () - 04/12 CBC w/ auto diff EO % % 0.0 7.0 5.6 FINAL Annamarie noel Oncology - [place], [address] [place] [address] [address] [place] [id number] 0 Phone: () - 04/12 CBC w/ auto diff BA % % 0.0 2.0 0.8 FINAL Annamarie noel Oncology - [place], [address] [place] [address] [address] [place] [id number] 0 Phone: () - 04/12 CBC w/ auto diff LY # K/uL 0.4 3.6 2.6 FINAL Annamarie noel Oncology - [place], [address] [place] [address] [address] [place] [id number] 0 Phone: () - 04/12 CBC w/ auto diff MO # K/uL 0.2 1.3 0.7 FINAL Annamarie noel Oncology - [place], [address] [place] [address] [address] [place] [id number] 0 Phone: () - 04/12 CBC w/ auto diff EO # K/uL 0.0 0.6 0.5 FINAL Annamarie noel Oncology - [place], [address] [place] [address] [address] [place] [id number] 0 Phone: () - 04/12 CBC w/ auto diff BA # K/uL 0.0 0.2 0.1 FINAL Annamarie noel Oncology - [place], [address] [place] [id number] 0 Phone: () - 04/12 CBC w/ auto diff NRBC % #/100W BC 0.0 0.2 0.0 FINAL Annamarie noel [facility], [address] [place] [id number] 0 Phone: () - 04/12 CBC w/ auto diff RBC M/uL 3.9 5.1 3.37 Low FINAL Annamarie noel [facility], [address] [place] [address] [address] [place] [id number] 0 Phone: () - 04/12 CBC w/ auto diff HCT % 35.0 48.0 35.7 FINAL Annamarie noel [facility], [address] [place] [address] [address] [place] [id number] 0 Phone: () - 04/12 CBC w/ auto diff MCV fL 80.0 104.0 105.9 High FINAL Annamarie noel [facility], [address] [place] [address] 200 [place] [id number] 0 Phone: () - 04/12 CA 125 panel CA 125 UNITS/ ML 0.0 34.0 7.70 Test performed at [facility] on a [employer] 2000 Immunoass ay Analyzer that uses an immunoenz ymometric sandwich assay for analysis. Patient testing should not be performed using multiple methodolo gies due to analytica l variation seen between test methodolo gies. FINAL Annamarie noel [address] [phone] 0 Phone: () - 04/12 TSH panel TSH uIU/ml 0.32 5.0 1.71 Test performed at [facility] on a [employer] 2000 Immunoass ay Analyzer that uses an immunoenz ymometric sandwich assay for analysis. Patient testing should not be performed using multiple methodolo gies due to analytica l variation seen between test methodolo gies. FINAL Annamarie Mcginnis bert [address] [place] [address] [id number] 0 Phone: () - 04/12 CMP Sodiu m mmol/L 135.0 145.0 132 Low FINAL [facility]12 CMP Potas sium mmol/L 3.5 5.0 4.5 FINAL [facility] ast 04/12 CMP Chlor sathish mmol/L 98.0 110.0 97 Low FINAL [facility] ast 04/12 CMP CO2 mmol/L 21.0 31.0 27 FINAL [facility] ast 04/12 CMP Anion gap, mmol/ L 5.0 18.0 8.0% FINAL [facility] ast 04/12 CMP Gluco se mg/dL 65.0 100.0 96 FINAL [facility] ast 04/12 CMP Calci um mg/dL 8.5 10.5 9.4 FINAL [facility] ast 04/12 CMP BUN mg/dL 8.0 25.0 12 FINAL [facility] ast 04/12 CMP Creat inine mg/dL 0.57 1.11 1.02 FINAL [facility] ast 04/12 CMP BUN/C reati nine ratio 10.0 20.0 12.0% FINAL [facility] ast 04/12 CMP GFR Afric an Ameri can, estim ated ml/min /1.73m 2 >60 FINAL [facility] ast 04/12 CMP GFR non-A frica n Ameri can, estim ated ml/min /1.73m 2 54 Low FINAL [facility] ast 04/12 CMP Album in g/dL 3.2 4.6 4.2 FINAL [facility] ast 04/12 CMP Total prote in g/dL 6.0 8.0 7.0 FINAL [facility] ast 04/12 CMP Globu samreen g/dL 2.0 3.7 2.8 FINAL [facility] ast 04/12 CMP A/G ratio 1.0 2.0 1.5% FINAL [facility] ast 04/12 CMP Bilir ubin, total mg/dL 0.2 1.2 0.4 FINAL [facility] ast 04/12 CMP Alkal ine phosp hatas e IU/L 50.0 136.0 63 FINAL Annamarie Zamorano ast 04/12 CMP ALT/S GPT IU/L 8.0 45.0 16 FINAL Annamarie Zamorano ast 04/12 CMP AST/S GOT IU/L 2.0 40.0 30 Test Performed by:[facility] [address], [address] - [place] [id number] e [phone] FINAL Annamarie Zamorano ast 04/12 [facility] other lab See psychiatry instructor d 04/12 [facility] other lab See psychiatry instructor d 05/10 CA 125 panel CA 125 UNITS/ ML 0.0 34.0 9.80 Test performed at [facility] on a [employer] 2000 Immunoass ay Analyzer that uses an immunoenz ymometric sandwich assay for analysis. Patient testing should not be performed using multiple methodolo gies due to analytica l variation seen between test methodolo gies. FINAL Tamanna noel [address] [place] [address] [id number] [phone] Phone: () - 05/10 TSH panel TSH uIU/ml 0.32 5.0 1.90 Test performed at [facility] on a [employer] 2000 Immunoass ay Analyzer that uses an immunoenz ymometric sandwich assay for analysis. Patient testing should not be performed using multiple methodolo gies due to analytica l variation seen between test methodolo gies. FINAL Tamanna noel [facility], [address] [place] [address] [place] [address] [id number] 0 Phone: () - 05/10 CBC w/ auto diff BA % % 0.0 2.0 0.5 FINAL Tamanna noel [facility], [address] [place] [address] [address] [facility] [id number] 0 Phone: () - 05/10 CBC w/ auto diff LY # K/uL 0.4 3.6 2.3 FINAL Tamanna noel [facility], [address] [place] [address] [address] [facility] [id number] 0 Phone: () - 05/10 CBC w/ auto diff MO # K/uL 0.2 1.3 0.8 FINAL Tamanna noel [facility], [address] [place] [address] 200 [place] [id number] 0 Phone: () - 05/10 CBC w/ auto diff EO # K/uL 0.0 0.6 0.5 FINAL Tamanna noel Oncology - [place] [facility], [address] [place] [address] 200 [place] [id number] 0 Phone: () - 05/10 CBC w/ auto diff BA # K/uL 0.0 0.2 0.1 FINAL Tamanna noel Oncology - [place] [facility], [address] [place] [address] 200 [place] [id number] 0 Phone: () - 05/10 CBC w/ auto diff NRBC % #/100W BC 0.0 0.2 0.0 FINAL Tamanna noel Oncology - [place] [facility], [address] [place] [address] 200 [place] [id number] 0 Phone: () - 05/10 CBC w/ auto diff RBC M/uL 3.9 5.1 3.61 Low FINAL Tamanna noel Oncology - [place] [facility], [address] [place] [address] 200 [place] [id number] 0 Phone: () - 05/10 CBC w/ auto diff HCT % 35.0 48.0 36.9 FINAL Tamanna noel Oncology - [place] [facility], [address] [place] [address] 200 [place] [id number] 0 Phone: () - 05/10 CBC w/ auto diff MCV fL 80.0 104.0 102.2 FINAL Tamanna noel Oncology - [place] [facility], [address] [place] [address] 200 [place] [id number] 0 Phone: () - 05/10 CBC w/ auto diff MCH pg 26.0 35.0 35.7 High FINAL Tamanna noel Oncology - [place] [facility], [address] [place] [address] 200 [place] [id number] 0 Phone: () - 05/10 CBC w/ auto diff MCHC g/dL 30.0 35.0 35.0 FINAL Tamanna noel Oncology - [place] [facility], [address] [place] [address] 200 [place] [id number] 0 Phone: () - 05/10 CBC w/ auto diff MPV fL 9.5 13.4 9.2 Low FINAL Tamanna noel Oncology - [place], [address] 200 [place] [id number] 0 Phone: () - 05/10 CBC w/ auto diff RDW % 11.4 16.1 12.50 FINAL Tamanna noel Oncology - [place], [address] 200 [place] [id number] 0 Phone: () - 05/10 CBC w/ auto diff WBC K/uL 3.0 8.9 10.3 High FINAL Tamanna nole Oncology - [place] [facility], [address] [place] [address] 200 [place] [id number] 0 Phone: () - 05/10 CBC w/ auto diff HGB g/dL 11.3 15.2 12.9 FINAL Tamanna noel Oncology - [place] [facility], [facility] [address] [place] [id number] 0 Phone: () - 05/10 CBC w/ auto diff PLT K/uL 113.0 364.0 172 FINAL Tamanna noel Oncology - [place] [facility], [address] [place] [address] 200 [place] [id number] 0 Phone: () - 05/10 CBC w/ auto diff Avtar # (ANC) K/uL 1.6 6.6 6.6 FINAL Tamanna noel Oncology - [place] [facility], [address] [place] [id number] 0 Phone: () - 05/10 CBC w/ auto diff Avtar % % 43.0 74.0 64.3 FINAL Tamanna noel Oncology - [place] [facility], [address] [place] [id number] 0 Phone: () - 05/10 CBC w/ auto diff IG % % 0.0 0.5 0.7 High FINAL Tamanna noel Oncology - [place], [address] [place] [id number] 0 Phone: () - 05/10 CBC w/ auto diff IG # K/uL 0.0 0.03 0.07 High FINAL Tamanna noel Oncology - [place] [facility], [address] [place] [id number] 0 Phone: () - 05/10 CBC w/ auto diff LY % % 14.0 41.0 22.7 FINAL Tamanna noel Oncology - [place], [address] [place] [id number] 0 Phone: () - 05/10 CBC w/ auto diff MO % % 6.0 15.0 7.4 FINAL Tamanna noel Oncology - [place] [facility], [address] [place] [id number] 0 Phone: () - 05/10 CBC w/ auto diff EO % % 0.0 7.0 4.4 FINAL Tamanna noel Oncology - [place] [facility], [address] [place] [id number] 0 Phone: () - 05/10 CMP Sodiu [...] GOT IU/L 2.0 40.0 33 Test Performed by:[facility] [address], [address] - [place], [place] [id number] e [phone] FINAL Tamanna Rolon 05/10 [facility] other lab See psychiatry instructor d 05/10 [facility] other lab See psychiatry instructor d 05/25 [facility] other lab See psychiatry instructor d 06/07 CMP Sodiu m mmol/L 135.0 [...] ml/min /1.73m 2 48 Low FINAL [facility]07 CMP Album in g/dL 3.2 4.6 4.2 FINAL Annamarie Smith ast 06/07 CMP Total prote in g/dL 6.0 8.0 7.3 FINAL [facility] 06/07 CMP Globu samreen g/dL 2.0 3.7 3.1 FINAL Annamarie Smith ast 06/07 CMP A/G ratio 1.0 2.0 1.4% FINAL [facility] 06/07 CMP Bilir ubin, total mg/dL 0.2 1.2 0.5 FINAL [facility] 06/07 CMP Alkal ine phosp hatas e IU/L 50.0 136.0 63 FINAL [facility] 06/07 CMP ALT/S GPT IU/L 8.0 45.0 24 FINAL Annamarierenny Smith ast 06/07 CMP AST/S GOT IU/L 2.0 40.0 44 High Test Performed by:[facility] [address] - [place], [place] [id number] e [phone] FINAL Annamarie Smith ast 06/07 CA 125 panel CA 125 UNITS/ ML 0.0 34.0 9.80 Test performed at [facility] on a [employer] ay Analyzer that uses an immunoenz ymometric sandwich assay for analysis. Patient testing should not be performed using multiple hallie soto due to analytica l variation seen between test hallie soto. FINAL Annamarie noel Oncology [facility], [address] [facility] [address] [facility] [id number] 0 Phone: () - 06/07 CBC w/ auto diff WBC K/uL 3.0 8.9 9.5 High FINAL Annamarie Mcginnisot bert [facility], [address] [place] [address] [address] [place] [id number] 0 Phone: () - 06/07 CBC w/ auto diff HGB g/dL 11.3 15.2 12.2 FINAL Annamarie Mcginnisot bert [facility], [address] [place] [id number] 0 Phone: () - 06/07 CBC w/ auto diff PLT K/uL 113.0 364.0 166 FINAL Annamarie Mcginnisot bert [facility], [address] [place] [address] [address] [place] [id number] 0 Phone: () - 06/07 CBC w/ auto diff Avtar # (ANC) K/uL 1.6 6.6 5.8 FINAL Annamarie Mcginnisot a [facility], [address] [place] [id number] 0 Phone: () - 06/07 CBC w/ auto diff Avtar % % 43.0 74.0 60.6 FINAL Annamarie Mcginnisot a [facility], [address] [place] [address] [address] [place] [id number] 0 Phone: () - 06/07 CBC w/ auto diff IG % % 0.0 0.5 0.7 High FINAL Annamarie Mcginnisot a Oncology - [facility], [address] [place] [address] [address] [place] [id number] 0 Phone: () - 06/07 CBC w/ auto diff IG # K/uL 0.0 0.03 0.07 High FINAL Annamarie Mcginnisot a [facility], [address] [place] [address] [address] [place] [id number] 0 Phone: () - 06/07 CBC w/ auto diff LY % % 14.0 41.0 25.2 FINAL Annamarie Mcginnisot a Oncology - [place], [address] [place] [address] [address] [place] [id number] 0 Phone: () - 06/07 CBC w/ auto diff MO % % 6.0 15.0 7.7 FINAL Annamarie Mcginnisot a Oncology - [place], [address] [place] [address] [address] [place] [id number] 0 Phone: () - 06/07 CBC w/ auto diff EO % % 0.0 7.0 5.1 FINAL Annamarie Mcginnisot a Oncology - [place], [address] [place] [address] [address] [place] [id number] 0 Phone: () - 06/07 CBC w/ auto diff BA % % 0.0 2.0 0.7 FINAL Annamarie Mcginnisot a Oncology - [place], [address] [place] [address] [address] [place] [id number] 0 Phone: () - 06/07 CBC w/ auto diff LY # K/uL 0.4 3.6 2.4 FINAL Annamarie Mcginnisot a Oncology - [place], [address] [place] [address] [address] [place] [id number] 0 Phone: () - 06/07 CBC w/ auto diff MO # K/uL 0.2 1.3 0.7 FINAL Annamarie Mcginnisot a Oncology - [place], [address] [place] [address] [address] [place] [id number] 0 Phone: () - 06/07 CBC w/ auto diff EO # K/uL 0.0 0.6 0.5 FINAL Annamarie Mcginnisot a Oncology - [place], [address] [place] [address] [address] [place] [id number] 0 Phone: () - 06/07 CBC w/ auto diff BA # K/uL 0.0 0.2 0.1 FINAL Annamarie Mcginnisot a Oncology - [place], [address] [place] [address] [address] [place] [id number] 0 Phone: () - 06/07 CBC w/ auto diff NRBC % #/100W BC 0.0 0.2 0.0 FINAL Annamarie Mcginnisot bert Oncology - [facility], [address] [place] [address] [address] [place] [id number] 0 Phone: () - 06/07 CBC w/ auto diff RBC M/uL 3.9 5.1 3.46 Low FINAL Annamarie Mcginnisot a Oncology - [place], [address] [place] [address] [address] [place] [id number] 0 Phone: () - 06/07 CBC w/ auto diff HCT % 35.0 48.0 35.6 FINAL Annamarie Mcginnisot bert Oncology - [place], [address] [place] [address] [address] [place] [id number] 0 Phone: () - 06/07 CBC w/ auto diff MCV fL 80.0 104.0 102.9 FINAL Annamarie Mcginnisot a [facility], [address] [place] [address] [address] [place] [id number] 0 Phone: () - 06/07 CBC w/ auto diff MCH pg 26.0 35.0 35.3 High FINAL Annamarie Mcginnisot a Oncology - [place], [address] [place] [address] [address] [place] [id number] 0 Phone: () - 06/07 CBC w/ auto diff MCHC g/dL 30.0 35.0 34.3 FINAL Annamarie Mcginnisot bert Oncology - [place], [address] [place] [address] [address] [place] [id number] 0 Phone: () - 06/07 CBC w/ auto diff MPV fL 9.5 13.4 9.4 Low FINAL Annamarie Mcginnisot a Oncology - [place], [address] [place] [address] [address] [place] [id number] 0 Phone: () - 06/07 CBC w/ auto diff RDW % 11.4 16.1 12.50 FINAL Annamarie Mcginnisot a Oncology - [place], [address] [place] [address] [address] [place] [id number] 0 Phone: () - 06/07 TSH panel TSH uIU/ml 0.32 5.0 3.43 Test performed at [facility] on a [employer] 2000 Immun[employer] ay Analyzer that uses an immunoenz ymometric sandwich assay for analysis. Patient testing should not be performed using multiple methodolo gies due to analytica l variation seen between test methodolo gies. FINAL Annamarie Peters [address] [phone] 0 Phone: () - 06/07 [facility] other lab See psychiatry instructor d 07/05 CA 125 panel CA 125 UNITS/ ML 0.0 34.0 9.50 Test performed at [facility] on a [employer] 2000 Immunoass ay Analyzer that uses an immunoenz ymometric sandwich assay for analysis. Patient testing should not be performed using multiple methodolo gies due to analytica l variation seen between test methodolo gies. FINAL Tamanna noel [address] [id number] 0 Phone: () - 07/05 TSH panel TSH uIU/ml 0.32 5.0 2.46 Test performed at [facility] on a [employer] 2000 Immunoass ay Analyzer that uses an immunoenz ymometric sandwich assay for analysis. Patient testing should not be performed using multiple methodolo gies due to analytica l variation seen between test methodolo gies. FINAL Tamanna noel [address] [id number] 0 Phone: () - 07/05 CBC w/ auto diff BA # K/uL 0.0 0.2 0.1 FINAL Tamanna noel [facility], [address] [place] [address] 200 [facility] [id number] 0 Phone: () - 07/05 CBC w/ auto diff NRBC % #/100W BC 0.0 0.2 0.0 FINAL Tamanna noel [facility], [address] [place] [address] 200 [facility] [id number] 0 Phone: () - 07/05 CBC w/ auto diff RBC M/uL 3.9 5.1 3.54 Low FINAL Tamanna noel [facility], [address] [place] [address] 200 [facility] [id number] 0 Phone: () - 07/05 CBC w/ auto diff HCT % 35.0 48.0 37.0 FINAL Tamanna noel Oncology - [place], [address] [place] [address] [address] [place] [id number] 0 Phone: () - 07/05 CBC w/ auto diff MCV fL 80.0 104.0 104.5 High FINAL Tamanna noel [facility] [place], [address] [place] [id number] 0 Phone: () - 07/05 CBC w/ auto diff MCH pg 26.0 35.0 35.0 FINAL Tamanna noel [facility] [place], [address] [place] [id number] 0 Phone: () - 07/05 CBC w/ auto diff MCHC g/dL 30.0 35.0 33.5 FINAL Tamanna noel [facility] [place], [address] [place] [id number] 0 Phone: () - 07/05 CBC w/ auto diff MPV fL 9.5 13.4 9.5 FINAL Tamanna noel [facility] [place], [address] [place] [id number] 0 Phone: () - 07/05 CBC w/ auto diff RDW % 11.4 16.1 13.10 FINAL Tamanna noel [facility] [place], [address] [place] [id number] 0 Phone: () - 07/05 CBC w/ auto diff WBC K/uL 3.0 8.9 10.4 High FINAL Tamanna noel [facility] [place], [address] [place] [address] [address] [place] [id number] 0 Phone: () - 07/05 CBC w/ auto diff HGB g/dL 11.3 15.2 12.4 FINAL Tamanna noel [facility] [place], [address] [place] [address] [address] [place] [id number] 0 Phone: () - 07/05 CBC w/ auto diff PLT K/uL 113.0 364.0 177 FINAL Tamanna noel [facility] [place], [address] [place] [id number] 0 Phone: () - 07/05 CBC w/ auto diff Avtar # (ANC) K/uL 1.6 6.6 6.3 FINAL Tamanna noel [facility] [place], [address] [place] [id number] 0 Phone: () - 07/05 CBC w/ auto diff Avtar % % 43.0 74.0 61.2 FINAL Tamanna noel [facility] [place], [address] [place] [id number] 0 Phone: () - 07/05 CBC w/ auto diff IG % % 0.0 0.5 0.7 High FINAL Tamanna noel [facility] [place], [address] [place] [id number] 0 Phone: () - 07/05 CBC w/ auto diff IG # K/uL 0.0 0.03 0.07 High FINAL Tamanna noel [facility] [place], [address] [place] [id number] 0 Phone: () - 07/05 CBC w/ auto diff LY % % 14.0 41.0 24.2 FINAL Tamanna noel [facility] [place], [address] [place] [id number] 0 Phone: () - 07/05 CBC w/ auto diff MO % % 6.0 15.0 8.6 FINAL Tamanna noel [facility] [place], [address] [place] [id number] 0 Phone: () - 07/05 CBC w/ auto diff EO % % 0.0 7.0 4.5 FINAL Tamanna noel [facility] [place], [address] [place] [id number] 0 Phone: () - 07/05 CBC w/ auto diff BA % % 0.0 2.0 0.8 FINAL Tamanna noel [facility] [place], [address] [place] [id number] 0 Phone: () - 07/05 CBC w/ auto diff LY # K/uL 0.4 3.6 2.5 FINAL Tamanna noel [facility] [place] [facility], [address] [place] [address] 200 [facility] [id number] 0 Phone: () - 07/05 CBC w/ auto diff MO # K/uL 0.2 1.3 0.9 FINAL Tamanna noel [facility] [place] [facility], [address] [place] [address] 200 [facility] [id number] 0 Phone: () - 07/05 CBC w/ auto diff EO # K/uL 0.0 0.6 0.5 FINAL Tamanna noel [facility] [place] [facility], [address] [place] [address] 200 [facility] [id number] 0 Phone: () - 07/05 CMP Sodiu [...] GOT IU/L 2.0 40.0 36 Test Performed by:[facility] [address] - [place], [place] [address]Ntid e : FINAL Tamanna Rolon 07/05 [facility] other lab See psychiatry instructor d 07/13 [facility] other lab See psychiatry instructor d 08/02 TSH panel TSH uIU/ml 0.32 5.0 2.38 Test performed at [facility] on a [employer] Immunoass ay Analyzer that uses an immunoenz ymometric sandwich assay for analysis. Patient testing should not be performed using multiple methodolo gies due to analytica l variation seen between test methodolo gies. FINAL Tamanna noel [address] [phone] 0 Phone: () - 08/02 CA 125 panel CA 125 UNITS/ ML 0.0 34.0 8.50 Test performed at [facility] on a [employer] 2000 Immunoass ay Analyzer that uses an immunoenz ymometric sandwich assay for analysis. Patient testing should not be performed using multiple methodolo gies due to analytica l variation seen between test methodolo gies. FINAL Tamanna noel On[facility] [address] [facility] [id number] 0 Phone: () - 08/02 CBC w/ auto diff WBC K/uL 3.0 8.9 9.3 High FINAL Tamanna noel [facility] [place], [address] [place] [id number] 0 Phone: () - 08/02 CBC w/ auto diff HGB g/dL 11.3 15.2 12.5 FINAL Tamanna noel [facility] [place], [address] [place] [id number] 0 Phone: () - 08/02 CBC w/ auto diff PLT K/uL 113.0 364.0 165 FINAL Tamanna noel [facility] [place], [address] [place] [address] [address] [place] [id number] 0 Phone: () - 08/02 CBC w/ auto diff Avtar # (ANC) K/uL 1.6 6.6 5.7 FINAL Tamanna noel [facility] [place], [address] [place] [address] [address] [place] [id number] 0 Phone: () - 08/02 CBC w/ auto diff Avtar % % 43.0 74.0 61.0 FINAL Tamanna noel [facility] [place], [address] [place] [id number] 0 Phone: () - 08/02 CBC w/ auto diff IG % % 0.0 0.5 0.6 High FINAL Tamanna noel [facility] [place], [address] [place] [address] [address] [place] [id number] 0 Phone: () - 08/02 CBC w/ auto diff IG # K/uL 0.0 0.03 0.06 High FINAL Tamanna noel [facility] [place], [address] [place] [address] [address] [place] [id number] 0 Phone: () - 08/02 CBC w/ auto diff LY % % 14.0 41.0 24.1 FINAL Tamanna noel [facility] [place], [address] [place] [address] [address] [place] [id number] 0 Phone: () - 08/02 CBC w/ auto diff MO % % 6.0 15.0 8.4 FINAL Tamanna noel [facility] [place], [address] [place] [id number] 0 Phone: () - 08/02 CBC w/ auto diff EO % % 0.0 7.0 5.1 FINAL Tamanna noel [facility] [place], [address] [place] [id number] 0 Phone: () - 08/02 CBC w/ auto diff BA % % 0.0 2.0 0.8 FINAL Tamanna noel [facility] [place], [address] [place] [address] 200 [place] [id number] 0 Phone: () - 08/02 CBC w/ auto diff LY # K/uL 0.4 3.6 2.2 FINAL Tamanna noel [facility] [place], [address] [place] [address] 200 [place] [id number] 0 Phone: () - 08/02 CBC w/ auto diff MO # K/uL 0.2 1.3 0.8 FINAL Tamanna noel [facility] [place], [address] [place] [address] 200 [place] [id number] 0 Phone: () - 08/02 CBC w/ auto diff EO # K/uL 0.0 0.6 0.5 FINAL Tamanna noel [facility] [place], [address] [place] [address] [address] [place] [id number] 0 Phone: () - 08/02 CBC w/ auto diff BA # K/uL 0.0 0.2 0.1 FINAL Tamanna noel [facility] [place], [address] [place] [address] [address] [place] [id number] 0 Phone: () - 08/02 CBC w/ auto diff NRBC % #/100W BC 0.0 0.2 0.0 FINAL Tamanna noel [facility] [place], [address] [place] [address] [address] [place] [id number] 0 Phone: () - 08/02 CBC w/ auto diff RBC M/uL 3.9 5.1 3.55 Low FINAL Tamanna noel [facility] [place], [address] [place] [address] [address] [place] [id number] 0 Phone: () - 08/02 CBC w/ auto diff HCT % 35.0 48.0 37.3 FINAL Tamanna noel [facility] [place], [address] [place] [address] [address] [place] [id number] 0 Phone: () - 08/02 CBC w/ auto diff MCV fL 80.0 104.0 105.1 High FINAL Tamanna noel [facility] [place], [address] [place] [address] [address] [place] [id number] 0 Phone: () - 08/02 CBC w/ auto diff MCH pg 26.0 35.0 35.2 High FINAL Tamanna noel [facility] [place], [address] [place] [address] [address] [place] [id number] 0 Phone: () - 08/02 CBC w/ auto diff MCHC g/dL 30.0 35.0 33.5 FINAL Tamanna noel [facility] [place], [address] [place] [address] [address] [place] [id number] 0 Phone: () - 08/02 CBC w/ auto diff MPV fL 9.5 13.4 9.6 FINAL Tamanna noel [facility] [place], [address] [place] [address] [address] [place] [id number] 0 Phone: () - 08/02 CBC w/ auto diff RDW % 11.4 16.1 13.00 FINAL Tamanna noel [facility] [place], [address] [place] [address] [address] [place] [id number] 0 Phone: () - 08/02 CMP Sodiu [...] GOT IU/L 2.0 40.0 32 Test Performed by:[facility] [address], [address] - [facility] [place] [address]Vvqx e : FINAL Tamanna Rolon 08/02 Misc other lab See psychiatry instructor d 08/13 [facility] other lab See psychiatry instructor d 08/30 Magne sium, mg/dL mg/dL 1.5 2.3 1.5 FINAL Tamanna noel [facility], [address] [place] [address] [id number] 0 Phone: () - 08/30 TSH panel TSH uIU/ml 0.32 5.0 2.25 Test performed at [facility] on a [employer] Immunoass ay Analyzer that uses an immunoenz ymometric sandwich assay for analysis. Patient testing should not be performed using multiple methodolo gies due to analytica l variation seen between test methodolo gies. FINAL Tamanna noel [address] [id number] 0 Phone: () - 08/30 Retic ulocy te, absol andreafski M/uL 0.02 0.08 0.08 FINAL Tamanna noel [facility], [address] [place] [address] 200 [facility] [id number] 0 Phone: () - 08/30 Retic ulocy te count % 0.4 1.6 2.19 High FINAL Tamanna noel [facility], [address] [place] [address] 200 [facility] [place] [id number] 0 Phone: () - 08/30 Immat ure retic ulocy te fract ion, % % 0.0 16.5 20.20 High FINAL Tamanna noel [facility], [address] [place] [address] 200 [facility] [id number] 0 Phone: () - 08/30 Retic ulocy te cellu lar hemog lobin pg 28.0 37.0 38.2 High FINAL Tamanna noel [facility], [address] [place] [address] 200 [facility] [place] [id number] 0 Phone: () - 08/30 CA 125 panel CA 125 UNITS/ ML 0.0 34.0 12.90 Test performed at [facility] on a [employer] 2000 Immunoass ay Analyzer that uses an immunoenz ymometric sandwich assay for analysis. Patient testing should not be performed using multiple methodolo gies due to analytica l variation seen between test methodolo gies. FINAL Tamanna noel [facility] - [place], [address] [facility] [address] [facility] [id number] 0 Phone: () - 08/30 CBC w/ auto diff WBC K/uL 3.0 8.9 8.8 FINAL Tamanna noel [facility] [place], [address] [place] [address] [address] [place] [id number] 0 Phone: () - 08/30 CBC w/ auto diff HGB g/dL 11.3 15.2 12.3 FINAL Tamanna noel [facility] [place], [address] [place] [address] [address] [place] [id number] 0 Phone: () - 08/30 CBC w/ auto diff PLT K/uL 113.0 364.0 161 FINAL Tamanna noel [facility] [place], [address] [place] [address] [address] [place] [id number] 0 Phone: () - 08/30 CBC w/ auto diff Avtar # (ANC) K/uL 1.6 6.6 5.6 FINAL Tamanna noel [facility] [place], [address] [place] [address] [address] [place] [id number] 0 Phone: () - 08/30 CBC w/ auto diff Avtar % % 43.0 74.0 62.9 FINAL Tamanna noel [facility] [place], [address] [place] [address] [address] [place] [id number] 0 Phone: () - 08/30 CBC w/ auto diff IG % % 0.0 0.5 0.5 FINAL Tamanna noel [facility] [place], [address] [place] [address] [address] [place] [id number] 0 Phone: () - 08/30 CBC w/ auto diff IG # K/uL 0.0 0.03 0.04 High FINAL Tamanna noel [facility] [place], [address] [place] [address] [address] [place] [id number] 0 Phone: () - 08/30 CBC w/ auto diff LY % % 14.0 41.0 23.7 FINAL Tamanna noel [facility] [place], [address] [facility] [place] [id number] 0 Phone: () - 08/30 CBC w/ auto diff MO % % 6.0 15.0 7.2 FINAL Tamanna noel [facility] [place], [address] [place] [address] 200 [facility] [place] [id number] 0 Phone: () - 08/30 CBC w/ auto diff EO % % 0.0 7.0 5.1 FINAL Tamanna noel [facility] [place], [address] [place] [address] 200 [facility] [place] [id number] 0 Phone: () - 08/30 CBC w/ auto diff BA % % 0.0 2.0 0.6 FINAL Tamanna noel [facility] [place], [address] [place] [address] 200 [facility] [place] [id number] 0 Phone: () - 08/30 CBC w/ auto diff LY # K/uL 0.4 3.6 2.1 FINAL Tamanna noel [facility] [place], [address] [place] [address] 200 [facility] [place] [id number] 0 Phone: () - 08/30 CBC w/ auto diff MO # K/uL 0.2 1.3 0.6 FINAL Tamanna noel [facility] [place], [address] [place] [address] 200 [facility] [place] [id number] 0 Phone: () - 08/30 CBC w/ auto diff EO # K/uL 0.0 0.6 0.5 FINAL Tamanna noel [facility] [place], [address] [place] [address] 200 [facility] [place] [id number] 0 Phone: () - 08/30 CBC w/ auto diff BA # K/uL 0.0 0.2 0.1 FINAL Tamanna noel [facility] [place], [address] [place] [address] 200 [facility] [place] [id number] 0 Phone: () - 08/30 CBC w/ auto diff NRBC % #/100W BC 0.0 0.2 0.0 FINAL Tamanna noel [facility] [place], [address] [place] [address] 200 [facility] [place] [id number] 0 Phone: () - 08/30 CBC w/ auto diff RBC M/uL 3.9 5.1 3.53 Low FINAL Tamanna noel [facility] [place] [facility], [address] [place] [address] [address] [place] [id number] 0 Phone: () - 08/30 CBC w/ auto diff HCT % 35.0 48.0 37.1 FINAL Tamanna noel [facility] [place] [facility], [address] [place] [id number] 0 Phone: () - 08/30 CBC w/ auto diff MCV fL 80.0 104.0 105.1 High FINAL Tamanna noel [facility] [place] [facility], [address] [place] [address] 200 [place] [id number] 0 Phone: () - 08/30 CBC w/ auto diff MCH pg 26.0 35.0 34.8 FINAL [facility], [address] [place] [address] 200 [place] [id number] 0 Phone: () - 08/30 CBC w/ auto diff MCHC g/dL 30.0 35.0 33.2 FINAL [facility], [address] [place] [address] 200 [place] [id number] 0 Phone: () - 08/30 CBC w/ auto diff MPV fL 9.5 13.4 9.7 FINAL [facility], [facility] [address] [place] [id number] 0 Phone: () - 08/30 CBC w/ auto diff RDW % 11.4 16.1 12.40 FINAL Tamanna noel [facility] [place] [facility], [address] [place] [address] 200 [place] [id number] 0 Phone: () - 08/30 Folat e, serum ng/mL 3.0 16.0 Folate greater than 20 FINAL Tamanna noel Oncology [facility], [address] [facility] [address] [facility] [id number] 0 Phone: () - 08/30 CMP Sodiu m mmol/L 135.0 145.0 135 FINAL Tamanna Gonzales 08/30 CMP Potas sium mmol/L 3.5 5.0 4.6 FINAL Tamanna Kenny 08/30 CMP Chlor sathish mmol/L 98.0 110.0 96 Low FINAL [facility] 08/30 CMP CO2 mmol/L 21.0 31.0 32 [facility] CMP Anion gap, mmol/ L 5.0 18.0 7.0% FINAL Tamanna Gonzales 08/30 CMP Gluco se mg/dL 65.0 100.0 92 FINAL Tamanna Gonzales 08/30 CMP Calci um mg/dL 8.5 10.5 9.1 FINAL [facility] 08/30 CMP BUN mg/dL 8.0 25.0 10 [facility] 08/30 CMP Creat inine mg/dL 0.57 1.11 0.95 [facility] 08/30 CMP BUN/C reati nine ratio 10.0 20.0 11.0% FINAL [facility] 08/30 CMP GFR Afric an Ameri can, estim ated ml/min /1.73m 2 >60 FINAL [facility] 08/30 CMP GFR non-A frica n Ameri can, estim ated ml/min /1.73m 2 58 Low [facility] 08/30 CMP Album in g/dL 3.2 4.6 4.1 [facility] 08/30 CMP Total prote in g/dL 6.0 8.0 7.1 FINAL [facility] 08/30 CMP Globu samreen g/dL 2.0 3.7 3.0 [facility] 08/30 CMP A/G ratio 1.0 2.0 1.4% [facility] 08/30 CMP Bilir ubin, total mg/dL 0.2 1.2 0.4 [facility] 08/30 CMP Alkal ine phosp hatas e IU/L 50.0 136.0 63 FINAL [facility] 08/30 CMP ALT/S GPT IU/L 8.0 45.0 18 FINAL Tamanna Rolon 08/30 CMP AST/S GOT IU/L 2.0 40.0 30 Test Performed by:[facility] [address] - [facility], [place] [address]Rqbj e [phone] FINAL Tamanna Rolon 08/30 Rashida stero l mg/dL 100.0 199.0 146 FINAL Tamanna Rolon 08/30 Chemi strie s Fasti ng statu s RANDOM Test Performed by:[facility] [address] - [facility], [place] [address]Rrut e : FINAL Tamanna Rolon 08/30 Phosp horus mg/dL 2.3 4.7 2.6 Test Performed by:[facility] [address] - [facility], [place] [address]Fjfx e : FINAL Tamanna Rolon 08/30 LDH U/L 120.0 246.0 184 FINAL Tamanna noel [address] [id number] [phone] Phone: () - 09/27 Magne sium, mg/dL mg/dL 1.5 2.3 1.4 Low FINAL Tamanna noel [address] [id number] [phone] Phone: () - 09/27 Retic ulocy te, absol andreafski M/uL 0.02 0.08 0.09 High FINAL Tamanna noel Oncology - [facility], [address] [place] [address] 200 [facility] [id number] 0 Phone: () - 09/27 Retic ulocy te count % 0.4 1.6 2.55 High FINAL Tamanna noel Oncology - [facility], [address] [place] [address] 200 [facility] [id number] 0 Phone: () - 09/27 Immat ure retic ulocy te fract ion, % % 0.0 16.5 26.30 High FINAL Tamanna noel On[facility] - [facility], [address] [place] [address] [address] [place] [id number] 0 Phone: () - 09/27 Retic ulocy te cellu lar hemog lobin pg 28.0 37.0 38.2 High FINAL Tamanna noel [facility] [place], [address] 200 [place] [id number] 0 Phone: () - 09/27 CBC w/ auto diff WBC K/uL 3.0 8.9 10.3 High FINAL Tamanna noel [facility] [place], [address] 200 [place] [id number] 0 Phone: () - 09/27 CBC w/ auto diff HGB g/dL 11.3 15.2 12.9 FINAL Tamanna noel [facility] [place], [address] 200 [place] [id number] 0 Phone: () - 09/27 CBC w/ auto diff PLT K/uL 113.0 364.0 190 FINAL Tamanna noel [facility] [place], [address] 200 [place] [id number] 0 Phone: () - 09/27 CBC w/ auto diff Avtar # (ANC) K/uL 1.6 6.6 6.7 High FINAL Tamanna noel [facility] [place], [address] [place] [address] 200 [place] [id number] 0 Phone: () - 09/27 CBC w/ auto diff Avtar % % 43.0 74.0 64.3 FINAL Tamanna noel [facility] [place], [address] 200 [place] [id number] 0 Phone: () - 09/27 CBC w/ auto diff IG % % 0.0 0.5 0.7 High FINAL Tamanna noel [facility] [place], [address] [place] [address] 200 [place] [id number] 0 Phone: () - 09/27 CBC w/ auto diff IG # K/uL 0.0 0.03 0.07 High FINAL Tamanna noel [facility] - [place], [address] [place] [address] 200 [place] [id number] 0 Phone: () - 09/27 CBC w/ auto diff LY % % 14.0 41.0 23.6 FINAL Tamanna noel [facility] - [place], [address] 200 [facility] [id number] 0 Phone: () - 09/27 CBC w/ auto diff MO % % 6.0 15.0 6.8 FINAL Tamanna noel [facility] [place], [address] [place] [address] 200 [facility] [id number] 0 Phone: () - 09/27 CBC w/ auto diff EO % % 0.0 7.0 4.1 FINAL Tamanna noel [facility] [place], [address] [place] [address] 200 [facility] [id number] 0 Phone: () - 09/27 CBC w/ auto diff BA % % 0.0 2.0 0.5 FINAL Tamanna noel [facility] [place], [address] [place] [address] 200 [facility] [id number] 0 Phone: () - 09/27 CBC w/ auto diff LY # K/uL 0.4 3.6 2.4 FINAL Tamanna noel [facility] - [place], [address] [place] [address] 200 [facility] [place] [id number] 0 Phone: () - 09/27 CBC w/ auto diff MO # K/uL 0.2 1.3 0.7 FINAL Tamanna noel [facility] [place], [address] [place] [address] 200 [facility] [id number] 0 Phone: () - 09/27 CBC w/ auto diff EO # K/uL 0.0 0.6 0.4 FINAL Tamanna noel [facility] - [place], [address] [place] [address] 200 [facility] [place] [id number] 0 Phone: () - 09/27 CBC w/ auto diff BA # K/uL 0.0 0.2 0.1 FINAL Tamanna noel [facility] [place], [address] [place] [address] 200 [facility] [id number] 0 Phone: () - 09/27 CBC w/ auto diff NRBC % #/100W BC 0.0 0.2 0.0 FINAL Tamanna noel [facility] [place] [facility], [address] [place] [address] [address] [place] [id number] 0 Phone: () - 09/27 CBC w/ auto diff RBC M/uL 3.9 5.1 3.70 Low FINAL Tamanna noel [facility] [place] [facility], [address] [place] [address] [address] [place] [id number] 0 Phone: () - 09/27 CBC w/ auto diff HCT % 35.0 48.0 38.7 FINAL Tamanna noel [facility] - [place] [facility], [address] [place] [address] 200 [place] [id number] 0 Phone: () - 09/27 CBC w/ auto diff MCV fL 80.0 104.0 104.6 High FINAL Tamanna noel [facility] - [place] [facility], [address] [place] [address] 200 [place] [id number] 0 Phone: () - 09/27 CBC w/ auto diff MCH pg 26.0 35.0 34.9 FINAL Tamanna noel [facility] [place] [facility], [address] [place] [address] 200 [place] [id number] 0 Phone: () - 09/27 CBC w/ auto diff MCHC g/dL 30.0 35.0 33.3 FINAL Tamanna noel [facility] - [place] [facility], [facility] [address] [place] [id number] 0 Phone: () - 09/27 CBC w/ auto diff MPV fL 9.5 13.4 9.1 Low FINAL Tamanna noel [facility] - [place] [facility], [address] [place] [address] [address] [place] [id number] 0 Phone: () - 09/27 CBC w/ auto diff RDW % 11.4 16.1 12.40 FINAL Tamanna noel [facility] - [place] [facility], [facility] [address] [place] [id number] 0 Phone: () - 09/27 CA 125 UNITS/ ML 0.0 34.0 10.40 Test performed at [facility] on a [employer] 2000 Immun[employer] ay Analyzer that uses an immunoenz ymometric sandwich assay for analysis. Patient testing should not be performed using multiple methodolo gies due to analytica l variation seen between test methodolo gies. FINAL Tamanna Peters [facility] [address] [id number] 0 Phone: () - 09/27 TSH uIU/ml 0.32 5.0 2.56 Test performed at [facility] on a [employer] 2000 Immunoass ay Analyzer that uses an immunoenz ymometric sandwich assay for analysis. Patient testing should not be performed using multiple methodolo gies due to analytica l variation seen between test methodolo gies. FINAL Tamanna noel Oncology - [address] [id number] 0 Phone: () - 09/27 Rashida stero l mg/dL 100.0 199.0 148 FINAL [facility] 09/27 Chemi strie s Fasti ng statu s RANDOM Test Performed by:[facility] [address] - [place], [place] [address]Xrqu e [phone] FINAL [facility] 09/27 Phosp horus mg/dL 2.3 4.7 2.8 Test Performed by:[facility] [address] - [place], [place] [address]Qvmh e : FINAL Tamanna Gonzales 09/27 CMP Sodiu m mmol/L 135.0 145.0 131 Low FINAL [facility] 09/27 CMP Potas sium mmol/L 3.5 5.0 4.6 FINAL [facility] 09/27 CMP Chlor sathish mmol/L 98.0 110.0 92 Low FINAL [facility] 09/27 CMP CO2 mmol/L 21.0 31.0 29 FINAL [facility] 09/27 CMP Anion gap, mmol/ L 5.0 18.0 10.0% FINAL [facility] 09/27 CMP Gluco se mg/dL 65.0 100.0 [...] GOT IU/L 2.0 40.0 25 Test Performed by:[facility] [address] - [facility] [address]Ilvx e : FINAL Tamanna Rolon 09/27 LDH U/L 120.0 246.0 176 FINAL [facility] [place], [address] [place] [address] [address] [facility] [phone] 0 Phone: () - 09/27 Folat e, serum ng/mL 3.0 16.0 17.4 High FINAL aTmanna noel Oncology [facility], [address] [facility] [address] [place] [id number] [phone] Phone: () - 10/25 CBC w/ auto diff WBC K/uL 3.0 8.9 9.3 High FINAL Tamanna noel [facility] - [place], [address] [facility] [place] [phone] 0 Phone: () - 10/25 CBC w/ auto diff HGB g/dL 11.3 15.2 12.9 FINAL Tamanna noel [facility] - [place], [address] [place] [address] [address] [facility] [place] [phone] 0 Phone: () - 10/25 CBC w/ auto diff PLT K/uL 113.0 364.0 162 FINAL Tamanna noel On[facility] - [place] [facility], [address] [place] [address] 200 [facility] [place] [phone] 0 Phone: () - 10/25 CBC w/ auto diff Avtar # (ANC) K/uL 1.6 6.6 6.1 FINAL Tamanna noel Oncology - [place] [facility], [address] [place] [address] 200 [place] [id number] 0 Phone: () - 10/25 CBC w/ auto diff Avtar % % 43.0 74.0 64.9 FINAL Tamanna noel [facility] - [place], [address] [place] [address] [address] [facility] [place] [id number] 0 Phone: () - 10/25 CBC w/ auto diff IG % % 0.0 0.5 0.5 FINAL Tamanna noel Oncology - [place] [facility], [address] [place] [address] 200 [place] [id number] 0 Phone: () - 10/25 CBC w/ auto diff IG # K/uL 0.0 0.03 0.05 High FINAL Tamanna noel [facility]cology - [place], [address] [place] [address] [address] [facility] [place] [id number] 0 Phone: () - 10/25 CBC w/ auto diff LY % % 14.0 41.0 22.9 FINAL Tamanna noel Oncology - [place], [address] [place] [address] [address] [place] [id number] 0 Phone: () - 10/25 CBC w/ auto diff MO % % 6.0 15.0 7.1 FINAL Tamanna noel Oncology - [place], [address] [place] [address] [address] [place] [id number] 0 Phone: () - 10/25 CBC w/ auto diff EO % % 0.0 7.0 4.2 FINAL Tamanna noel Oncology - [place], [address] [place] [id number] 0 Phone: () - 10/25 CBC w/ auto diff BA % % 0.0 2.0 0.4 FINAL Tamanna noel Oncology - [place], [address] [place] [id number] 0 Phone: () - 10/25 CBC w/ auto diff LY # K/uL 0.4 3.6 2.1 FINAL Tamanna noel Oncology - [place], [address] [place] [id number] 0 Phone: () - 10/25 CBC w/ auto diff MO # K/uL 0.2 1.3 0.7 FINAL Tamanna noel Oncology - [place], [address] [place] [address] [address] [place] [id number] 0 Phone: () - 10/25 CBC w/ auto diff EO # K/uL 0.0 0.6 0.4 FINAL Tamanna noel Oncology - [place], [address] [place] [id number] 0 Phone: () - 10/25 CBC w/ auto diff BA # K/uL 0.0 0.2 0.0 FINAL Tamanna noel Oncology - [place], [address] [place] [address] [address] [place] [id number] 0 Phone: () - 10/25 CBC w/ auto diff NRBC % #/100W BC 0.0 0.2 0.0 FINAL Tamanna noel Oncology - [place] [facility], [address] [place] [id number] 0 Phone: () - 10/25 CBC w/ auto diff RBC M/uL 3.9 5.1 3.70 Low FINAL Tamanna noel Oncology - [place] [facility], [address] [place] [id number] 0 Phone: () - 10/25 CBC w/ auto diff HCT % 35.0 48.0 39.0 FINAL Tamanna noel Oncology - [place] [facility], [address] [place] [id number] 0 Phone: () - 10/25 CBC w/ auto diff MCV fL 80.0 104.0 105.4 High FINAL Tamanna noel Oncology - [place] [facility], [address] [place] [id number] 0 Phone: () - 10/25 CBC w/ auto diff MCH pg 26.0 35.0 34.9 FINAL Tamanna noel Oncology - [place] [facility], [address] [place] [id number] 0 Phone: () - 10/25 CBC w/ auto diff MCHC g/dL 30.0 35.0 33.1 FINAL Tamanna noel Oncology - [place] [facility], [address] [place] [id number] 0 Phone: () - 10/25 CBC w/ auto diff MPV fL 9.5 13.4 9.8 FINAL Tamanna noel Oncology - [place] [facility], [address] [place] [id number] 0 Phone: () - 10/25 CBC w/ auto diff RDW % 11.4 16.1 13.10 FINAL Tamanna noel Oncology - [place] [facility], [address] [place] [id number] 0 Phone: () - 10/25 Magne sium, mg/dL mg/dL 1.5 2.3 1.9 FINAL Tamanna noel Oncology [address] [phone] 0 Phone: () - 10/25 CA 125 panel CA 125 UNITS/ ML 0.0 34.0 6.90 Test performed at [facility] on a [employer] 2000 Immunoass ay Analyzer that uses an immunoenz ymometric sandwich assay for analysis. Patient testing should not be performed using multiple methodolo gies due to analytica l variation seen between test methodolo gies. FINAL Tamanna noel [address] [id number] 0 Phone: () - 10/25 TSH uIU/ml 0.32 5.0 2.28 Test performed at [facility] on a [employer] 2000 Immunoass ay Analyzer that uses an immunoenz ymometric sandwich assay for analysis. Patient testing should not be performed using multiple methodolo gies due to analytica l variation seen between test methodolo gies. FINAL Tamanna noel [address] [id number] 0 Phone: () - 10/25 Retic ulocy te, absol andreafski M/uL 0.02 0.08 0.08 FINAL Tamanna noel [facility], [address] [place] [address] 200 [facility] [place] [id number] 0 Phone: () - 10/25 Retic ulocy te count % 0.4 1.6 2.29 High FINAL Tamanna noel [facility], [address] [place] [address] 200 [facility] [place] [id number] 0 Phone: () - 10/25 Immat ure retic ulocy te fract ion, % % 0.0 16.5 18.50 High FINAL Tamanna Mcginnis bert [facility], [address] [place] [address] 200 [facility] [place] [id number] 0 Phone: () - 10/25 Retic ulocy te cellu lar hemog lobin pg 28.0 37.0 38.2 High FINAL Tamanna Mcginnis bert [facility], [address] [place] [address] 200 [facility] [id number] 0 Phone: () - 10/25 CMP Sodiu m mmol/L 135.0 145.0 132 Low FINAL [facility] 10/25 CMP Potas sium mmol/L 3.5 5.0 4.7 FINAL [facility] 10/25 CMP Chlor sathish mmol/L 98.0 110.0 95 Low FINAL [facility] 10/25 CMP CO2 mmol/L 21.0 31.0 26 FINAL [facility] 10/25 CMP Anion gap, mmol/ L 5.0 18.0 11.0% FINAL [facility] 10/25 CMP Gluco se mg/dL 65.0 100.0 100 FINAL [facility] 10/25 CMP Calci um mg/dL 8.5 10.5 8.5 FINAL [facility] 10/25 CMP BUN mg/dL 8.0 25.0 23 FINAL [facility] 10/25 CMP Creat inine mg/dL 0.57 1.11 1.15 High FINAL [facility] 10/25 CMP BUN/C reati nine ratio 10.0 20.0 20.0% FINAL [facility] 10/25 CMP GFR Afric an Ameri can, estim ated ml/min /1.73m 2 56 Low FINAL [facility] 10/25 CMP GFR non-A frica n Ameri can, estim ated ml/min /1.73m 2 47 Low FINAL [facility] 10/25 CMP Album in g/dL 3.2 4.6 4.0 FINAL [facility] 10/25 CMP Total prote in g/dL 6.0 8.0 6.8 FINAL [facility] 10/25 CMP Globu samreen g/dL 2.0 3.7 2.8 FINAL [facility] 10/25 CMP A/G ratio 1.0 2.0 1.4% FINAL [facility] 10/25 CMP Bilir ubin, total mg/dL 0.2 1.2 0.6 FINAL [facility] 10/25 CMP Alkal ine phosp hatas e IU/L 50.0 136.0 74 FINAL Tamanna Rolon 10/25 CMP ALT/S GPT IU/L 8.0 45.0 17 FINAL Tamanna Rolon 10/25 CMP AST/S GOT IU/L 2.0 40.0 29 Test Performed by:[facility] [address] - [facility], [place] [address]Qpps e : FINAL Tamanna Rolon 10/25 Rashida stero l mg/dL 100.0 199.0 142 FINAL Tamanna Rolon 10/25 Chemi strie s Fasti ng statu s RANDOM Test Performed by:[facility] [address] - [facility], [place] [address]Agsp e [phone] FINAL Tamanna Rolon 10/25 Phosp horus mg/dL 2.3 4.7 3.3 Test Performed by:[facility] [address] - [facility], [place] [address]Owag e : FINAL Tamanna Rolon 10/25 Folat e, serum ng/mL 3.0 16.0 Folate greater than 20 FINAL Tamanna noel [facility] [address] [id number] 0 Phone: () - 10/25 LDH U/L 120.0 246.0 185 FINAL Tamanna noel On[facility] [address] [id number] 0 Phone: () - 11/22 CBC w/ auto diff LY # K/uL 0.4 3.6 1.8 FINAL Tamanna noel Oncology - [facility], [address] [place] [address] [address] [place] [id number] 0 Phone: () - 11/22 CBC w/ auto diff MO # K/uL 0.2 1.3 0.7 FINAL Tamanna noel Oncology - [facility], [address] [place] [address] [address] [facility] [place] [id number] 0 Phone: () - 11/22 CBC w/ auto diff EO # K/uL 0.0 0.6 0.4 FINAL Tamanna noel Oncology - [place], [address] [place] [id number] 0 Phone: () - 11/22 CBC w/ auto diff BA # K/uL 0.0 0.2 0.1 FINAL Tamanna noel Oncology - [place], [address] [place] [id number] 0 Phone: () - 11/22 CBC w/ auto diff NRBC % #/100W BC 0.0 0.2 0.0 FINAL Tamanna noel Oncology - [place], [address] [place] [id number] 0 Phone: () - 11/22 CBC w/ auto diff RBC M/uL 3.9 5.1 4.15 FINAL Tamanna noel Oncology - [place], [facility] [address] 200 [place] [id number] 0 Phone: () - 11/22 CBC w/ auto diff HCT % 35.0 48.0 42.3 FINAL Tamanna noel Oncology - [place], [address] [place] [address] 200 [place] [id number] 0 Phone: () - 11/22 CBC w/ auto diff MCV fL 80.0 104.0 101.9 FINAL Tamanna noel Oncology - [place], [address] [place] [id number] 0 Phone: () - 11/22 CBC w/ auto diff MCH pg 26.0 35.0 33.5 FINAL Tamanna noel Oncology - [place], [address] [place] [id number] 0 Phone: () - 11/22 CBC w/ auto diff MCHC g/dL 30.0 35.0 32.9 FINAL Tamanna noel Oncology - [place], [address] [place] [id number] 0 Phone: () - 11/22 CBC w/ auto diff MPV fL 9.5 13.4 9.3 Low FINAL Tamanna noel Oncology - [place], [address] [place] [address] [address] [place] [id number] 0 Phone: () - 11/22 CBC w/ auto diff RDW % 11.4 16.1 12.70 FINAL Tamanna noel Oncology - [place], [address] [place] [address] [address] [place] [id number] 0 Phone: () - 11/22 CBC w/ auto diff WBC K/uL 3.0 8.9 8.8 FINAL Tamanna noel Oncology - [place], [address] [place] [address] [address] [place] [id number] 0 Phone: () - 11/22 CBC w/ auto diff HGB g/dL 11.3 15.2 13.9 FINAL Tamanna noel Oncology - [place], [address] [place] [address] [address] [place] [id number] 0 Phone: () - 11/22 CBC w/ auto diff PLT K/uL 113.0 364.0 197 FINAL Tamanna noel Oncology - [place], [address] [place] [address] [address] [place] [id number] 0 Phone: () - 11/22 CBC w/ auto diff Avtar # (ANC) K/uL 1.6 6.6 5.8 FINAL Tamanna noel Oncology - [place], [address] [place] [address] [address] [place] [id number] 0 Phone: () - 11/22 CBC w/ auto diff Avtar % % 43.0 74.0 66.0 FINAL Tamanna noel Oncology - [place], [address] [place] [address] [address] [place] [id number] 0 Phone: () - 11/22 CBC w/ auto diff IG % % 0.0 0.5 0.5 FINAL Tamanna noel Oncology - [place], [address] [place] [address] [address] [place] [id number] 0 Phone: () - 11/22 CBC w/ auto diff IG # K/uL 0.0 0.03 0.04 High FINAL Tamanna noel Oncology - [place], [address] 200 [place] [id number] 0 Phone: () - 11/22 CBC w/ auto diff LY % % 14.0 41.0 20.2 FINAL [facility], [address] 200 [place] [id number] 0 Phone: () - 11/22 CBC w/ auto diff MO % % 6.0 15.0 7.8 FINAL Tamanna noel Oncology [facility], [address] 200 [place] [id number] 0 Phone: () - 11/22 CBC w/ auto diff EO % % 0.0 7.0 4.9 FINAL Tamanna noel Oncology [facility], [address] 200 [place] [id number] 0 Phone: () - 11/22 CBC w/ auto diff BA % % 0.0 2.0 0.6 FINAL Tamanna noel Oncology [facility], [address] [place] [address] 200 [place] [id number] 0 Phone: () - 11/22 CMP Album in g/dL 3.2 5.2 4.5 FINAL Tamanna noel [address] [id number] 0 Phone: () - 11/22 CMP Alkal ine phosp hatas e U/L 46.0 116.0 67 FINAL Tamanna noel [address] [id number] 0 Phone: () - 11/22 CMP ALT/S GPT U/L 7.0 40.0 13 FINAL Tamanna noel [address] [id number] 0 Phone: () - 11/22 CMP AST/S GOT U/L 13.0 40.0 20 FINAL Tamanna noel [address] [id number] 0 Phone: () - 11/22 CMP BUN mg/dL 9.0 23.0 20 FINAL Tamanna Peters [address] [id number] 0 Phone: () - 11/22 CMP Calci um mg/dL 8.7 10.4 9.1 [facility] Tamanna Peters [address] [id number] 0 Phone: () - 11/22 CMP Chlor sathish mmol/L 96.0 114.0 96 [facility] Tamanna Mcginnis[address] [id number] 0 Phone: () - 11/22 CMP CO2 mmol/L 20.0 31.0 27 [facility] Tamanna Mcginnis[address] [id number] 0 Phone: () - 11/22 CMP Creat inine mg/dL 0.5 1.2 1.06 [facility] Tamanna Mcginnis[address] [id number] 0 Phone: () - 11/22 CMP GFR estim ate ml/min /1.73m ^2 52.8 Low GFR is calculate d using the CKD-EPI equation. [facility] Tamanna Mcginnis[address] [id number] 0 Phone: () - 11/22 CMP Gluco se mg/dL 73.0 126.0 94 [facility] Tamanna Mcginnis[address] [id number] 0 Phone: () - 11/22 CMP Potas sium mmol/L 3.5 5.1 5.0 [facility] [address] [id number] 0 Phone: () - 11/22 CMP Sodiu m mmol/L 136.0 145.0 130 Low [facility] [address] [id number] 0 Phone: () - 11/22 CMP Bilir ubin, total mg/dL 0.3 1.2 0.5 FINAL Tamanna noel Oncology [address] 100 [facility] [id number] 0 Phone: () - 11/22 CMP Total prote in g/dL 5.7 8.2 6.7 FINAL Tamanna noel [address] [id number] 0 Phone: () - 11/22 CA 125 panel CA 125 UNITS/ ML 0.0 34.0 8.10 Test performed at [facility] on a [employer] Immunoass ay Analyzer that uses an immunoenz ymometric sandwich assay for analysis. Patient testing should not be performed using multiple hallie soto due to analytica l variation seen between test hallie soto. FINAL Tamanna noel [address] [phone] 0 Phone: () - 11/22 [facility] other lab See psychiatry instructor d 11/22 [facility] other lab See psychiatry instructor d 11/22 [facility] other lab See psychiatry instructor d 02/11 CBC w/ auto diff WBC K/uL 3.0 8.9 9.2 High FINAL Tamanna noel Oncology - [facility], [address] [place] [address] 200 [place] [id number] 0 Phone: () - 02/11 CBC w/ auto diff HGB g/dL 11.3 15.2 13.3 FINAL Tamanna noel Oncology - [facility], [address] [place] [address] 200 [place] [id number] 0 Phone: () - 02/11 CBC w/ auto diff PLT K/uL 113.0 364.0 267 FINAL Tamanna noel Oncology - [facility], [address] [place] [address] 200 [place] [id number] 0 Phone: () - 02/11 CBC w/ auto diff Avtar # (ANC) K/uL 1.6 6.6 6.1 FINAL Tamanna noel Oncology - [facility], [address] [place] [address] 200 [place] [id number] 0 Phone: () - 02/11 CBC w/ auto diff Avtar % % 43.0 74.0 66.8 FINAL Tamanna noel Oncology - [place], [address] 200 [facility] [id number] 0 Phone: () - 02/11 CBC w/ auto diff IG % % 0.0 0.5 1.9 High FINAL Tamanna noel Oncology - [place], [address] 200 [facility] [id number] 0 Phone: () - 02/11 CBC w/ auto diff IG # K/uL 0.0 0.03 0.17 High FINAL Tamanna noel Oncology - [place], [address] [place] [address] 200 [facility] [id number] 0 Phone: () - 02/11 CBC w/ auto diff LY % % 14.0 41.0 19.2 FINAL Tamanna noel Oncology - [place], [address] 200 [facility] [id number] 0 Phone: () - 02/11 CBC w/ auto diff MO % % 6.0 15.0 9.2 FINAL Tamanna noel Oncology - [place], [address] [place] [address] 200 [facility] [id number] 0 Phone: () - 02/11 CBC w/ auto diff EO % % 0.0 7.0 2.5 FINAL Tamanna noel Oncology - [place], [address] [place] [address] 200 [facility] [id number] 0 Phone: () - 02/11 CBC w/ auto diff BA % % 0.0 2.0 0.4 FINAL Tamanna noel Oncology - [place], [address] [place] [address] 200 [facility] [place] [id number] 0 Phone: () - 02/11 CBC w/ auto diff LY # K/uL 0.4 3.6 1.8 FINAL Tamanna neol Oncology - [place], [address] [place] [address] 200 [facility] [id number] 0 Phone: () - 02/11 CBC w/ auto diff MO # K/uL 0.2 1.3 0.8 FINAL Tamanna noel Oncology - [place] [facility], [address] [place] [address] 200 [place] [id number] 0 Phone: () - 02/11 CBC w/ auto diff EO # K/uL 0.0 0.6 0.2 FINAL Tamanna noel Oncology - [place] [facility], [address] [place] [address] 200 [place] [id number] 0 Phone: () - 02/11 CBC w/ auto diff BA # K/uL 0.0 0.2 0.0 FINAL Tamanna noel Oncology - [place] [facility], [address] [place] [address] 200 [place] [id number] 0 Phone: () - 02/11 CBC w/ auto diff NRBC % #/100W BC 0.0 0.2 0.2 FINAL Tamanna noel Oncology - [place] [facility], [address] [place] [address] 200 [place] [id number] 0 Phone: () - 02/11 CBC w/ auto diff RBC M/uL 3.9 5.1 4.09 FINAL Tamanna noel Oncology - [place] [facility], [address] [place] [address] 200 [place] [id number] 0 Phone: () - 02/11 CBC w/ auto diff HCT % 35.0 48.0 40.6 FINAL Tamanna noel Oncology - [place] [facility], [address] [place] [address] 200 [place] [id number] 0 Phone: () - 02/11 CBC w/ auto diff MCV fL 80.0 104.0 99.3 FINAL Tamanna noel Oncology - [place] [facility], [address] [place] [address] 200 [place] [id number] 0 Phone: () - 02/11 CBC w/ auto diff MCH pg 26.0 35.0 32.5 FINAL Tamanna noel Oncology - [place] [facility], [address] [place] [address] 200 [place] [id number] 0 Phone: () - 02/11 CBC w/ auto diff MCHC g/dL 30.0 35.0 32.8 FINAL Tamanna noel [facility], [address] 200 [place] [id number] 0 Phone: () - 02/11 CBC w/ auto diff MPV fL 9.5 13.4 8.6 Low FINAL Tamanna noel [facility], [address] 200 [place] [id number] 0 Phone: () - 02/11 CBC w/ auto diff RDW % 11.4 16.1 14.00 FINAL Tamanna noel [facility], [address] 200 [place] [id number] 0 Phone: () - 02/11 CMP Album in g/dL 3.2 5.2 4.3 FINAL Tamanna noel [address] [id number] 0 Phone: () - 02/11 CMP Alkal ine phosp hatas e U/L 46.0 116.0 53 FINAL Tamanna noel [address] [id number] 0 Phone: () - 02/11 CMP ALT/S GPT U/L 7.0 40.0 14 FINAL Tamanna onel [address] [id number] 0 Phone: () - 02/11 CMP AST/S GOT U/L 13.0 40.0 22 FINAL Tamanna noel [address] [id number] 0 Phone: () - 02/11 CMP BUN mg/dL 9.0 23.0 7 Low FINAL Tamanna noel [address] [id number] 0 Phone: () - 02/11 CMP Calci um mg/dL 8.7 10.4 9.6 FINAL Tamanna noel [address] [place] [id number] 0 Phone: () - 02/11 CMP Chlor sathish mmol/L 96.0 114.0 91 Low FINAL Tamanna noel [address] [id number] 0 Phone: () - 02/11 CMP CO2 mmol/L 20.0 31.0 26 FINAL Tamanna Peters [address] [id number] 0 Phone: () - 02/11 CMP Creat inine mg/dL 0.5 1.2 1.03 FINAL Tamanna Peters [address] [id number] 0 Phone: () - 02/11 CMP GFR estim ate ml/min /1.73m ^2 54.5 Low GFR is calculate d using the CKD-EPI equation. FINAL Tamanna Peters [address] [id number] 0 Phone: () - 02/11 CMP Gluco se mg/dL 73.0 126.0 97 [facility] Tamanna Peters [address] [id number] 0 Phone: () - 02/11 CMP Potas sium mmol/L 3.5 5.1 4.5 [facility] Tamanna Peters [address] [id number] 0 Phone: () - 02/11 CMP Sodiu m mmol/L 136.0 145.0 129 Low [facility] Tamanna noel [address] [id number] 0 Phone: () - 02/11 CMP Bilir ubin, total mg/dL 0.3 1.2 0.4 [facility] Tamanna noel [address] [id number] 0 Phone: () - 02/11 CMP Total prote in g/dL 5.7 8.2 6.6 [facility] Tamanna Peters [place] [address] [facility] [id number] 0 Phone: () - 02/11 CA 125 panel CA 125 UNITS/ ML 0.0 34.0 8.70 Test performed at [facility] on a [employer] 2000 Immunoass ay Analyzer that uses an immunoenz ymometric sandwich assay for analysis. Patient testing should not be performed using multiple methoddanelle soto due to analytica l variation seen between test methoddanelle soto. FINAL Tamanna noel Oncology - [place], [address] [facility] [address] [facility] [phone] 0 Phone: () - 02/11 iSTAT creat inine panel Creat inine , iSTAT mg/dl 0.6 1.3 1.3 FINAL Tamanna noel Oncology - [place], [address] 200 [facility] [place] [id number] 0 Phone: () - 02/11 iSTAT creat inine panel GFR estim ate ml/min /1.73m ^2 41.2 Low GFR is calculate d using the CKD-EPI equation. FINAL Tamanna noel Oncology - [place], [address] [place] [id number] 0 Phone: () - 02/11 [facility] other lab See psychiatry instructor d 05/23 CBC w/ auto diff WBC K/uL 3.0 8.9 8.9 FINAL Harper noel [facility] - [place], [address] 200 [place] [id number] 0 Phone: () - 05/23 CBC w/ auto diff HGB g/dL 11.3 15.2 15.7 High FINAL Harper noel [facility] - [place], [address] [place] [address] [address] [place] [id number] 0 Phone: () - 05/23 CBC w/ auto diff PLT K/uL 113.0 364.0 220 FINAL Harper noel [facility] - [place], [address] [place] [address] [address] [place] [id number] 0 Phone: () - 05/23 CBC w/ auto diff Avtar # (ANC) K/uL 1.6 6.6 5.5 FINAL Harper noel [facility] - [place], [address] [place] [address] [address] [place] [id number] 0 Phone: () - 05/23 CBC w/ auto diff Avtar % % 43.0 74.0 62.5 FINAL Harper noel [facility] - [place], [address] [place] [address] [address] [place] [id number] 0 Phone: () - 05/23 CBC w/ auto diff IG % % 0.0 0.5 0.5 FINAL Harper noel [facility] - [place], [address] [place] [address] [address] [place] [id number] 0 Phone: () - 05/23 CBC w/ auto diff IG # K/uL 0.0 0.03 0.04 High FINAL Harper noel [facility] - [place], [address] [place] [address] [address] [place] [id number] 0 Phone: () - 05/23 CBC w/ auto diff LY % % 14.0 41.0 22.5 FINAL Harper noel [facility] - [place], [address] [place] [address] [address] [place] [id number] 0 Phone: () - 05/23 CBC w/ auto diff MO % % 6.0 15.0 8.0 FINAL Harper noel [facility] - [place], [address] [place] [address] [address] [place] [id number] 0 Phone: () - 05/23 CBC w/ auto diff EO % % 0.0 7.0 5.9 FINAL Harper noel [facility] - [place], [address] [place] [address] [address] [place] [id number] 0 Phone: () - 05/23 CBC w/ auto diff BA % % 0.0 2.0 0.6 FINAL Harper noel [facility] - [place], [address] [place] [address] [address] [place] [id number] 0 Phone: () - 05/23 CBC w/ auto diff LY # K/uL 0.4 3.6 2.0 FINAL [facility] [place] [facility] [place], [address] 200 [place] [id number] 0 Phone: () - 05/23 CBC w/ auto diff MO # K/uL 0.2 1.3 0.7 FINAL Harper noel [facility] - [place], [address] [place] [id number] 0 Phone: () - 05/23 CBC w/ auto diff EO # K/uL 0.0 0.6 0.5 FINAL Harper noel [facility] - [place], [address] [place] [id number] 0 Phone: () - 05/23 CBC w/ auto diff BA # K/uL 0.0 0.2 0.1 FINAL Harper noel [facility] - [place], [address] [place] [id number] 0 Phone: () - 05/23 CBC w/ auto diff NRBC % #/100W BC 0.0 0.2 0.0 FINAL Harper noel [facility] - [place], [address] 200 [place] [id number] 0 Phone: () - 05/23 CBC w/ auto diff RBC M/uL 3.9 5.1 4.85 FINAL Harper noel [facility] - [place], [address] 200 [place] [id number] 0 Phone: () - 05/23 CBC w/ auto diff HCT % 35.0 48.0 47.1 FINAL [facility] [place], [address] [place] [id number] 0 Phone: () - 05/23 CBC w/ auto diff MCV fL 80.0 104.0 97.1 FINAL [facility] [place], [address] [place] [address] [address] [place] [id number] 0 Phone: () - 05/23 CBC w/ auto diff MCH pg 26.0 35.0 32.4 FINAL [facility] [place], [address] [place] [id number] 0 Phone: () - 05/23 CBC w/ auto diff MCHC g/dL 30.0 35.0 33.3 FINAL [facility], [address] [place] [address] 200 [facility] [place] [id number] 0 Phone: () - 05/23 CBC w/ auto diff MPV fL 9.5 13.4 9.1 Low FINAL [facility], [address] [place] [address] 200 [facility] [place] [phone] 0 Phone: () - 05/23 CBC w/ auto diff RDW % 11.4 16.1 13.00 FINAL Harper noel [facility], [address] [facility] [phone] 0 Phone: () - 05/23 CMP Album in g/dL 3.2 5.2 4.6 [facility] [address] [facility] [address] [place] [address] [phone] Phone: () - 05/23 CMP Alkal ine phosp hatas e U/L 46.0 116.0 58 [facility]AL [facility] [address] [phone] Phone: () - 05/23 CMP ALT/S GPT U/L 7.0 40.0 11 [place] [address] [address] [facility] [address] [phone] Phone: () - 05/23 CMP AST/S GOT U/L 13.0 40.0 23 FINAL Harper Wheeler [place] [address] [address] [facility] [address] [phone] Phone: () - 05/23 CMP BUN mg/dL 9.0 23.0 15 FINAL [place] [address] [address] [facility] [address] [place] [address] [phone] Phone: () - 05/23 CMP Calci um mg/dL 8.7 10.4 10.1 FINAL Harper noel [place] [address] [phone] Phone: () - 05/23 CMP Chlor sathish mmol/L 96.0 114.0 88 Low FINAL Harper noel [place] [address] [phone] Phone: () - 05/23 CMP CO2 [...] 96 hour stability window. FINAL Harper noel [place] [address] [phone] Phone: () - 05/23 CMP Creat inine mg/dL 0.5 1.2 0.97 [place]AL [place] [address] [phone] 0 Phone: () - 05/23 CMP GFR estim ate ml/min /1.73m ^2 58.5 Low GFR is calculate d using the CKD-EPI equation. FINAL Harper Wheeler [place] [address] [phone] Phone: () - 05/23 CMP Gluco se mg/dL 73.0 126.0 72 Low FINAL [place] [address] [phone] 0 Phone: () - 05/23 CMP Potas sium mmol/L 3.5 5.1 4.8 FINAL [place] [address] [phone] 0 Phone: () - 05/23 CMP Sodiu m mmol/L 136.0 145.0 129 Low FINAL [place] [address] [place] [phone] 0 Phone: () - 05/23 CMP Bilir ubin, total mg/dL 0.3 1.2 0.3 FINAL Harper noel [facility], [address] [facility] [address] [facility] [id number] [phone] Phone: () - 05/23 CMP Total prote in g/dL 5.7 8.2 7.3 [facility]AL [facility] [address] [facility] 100 [facility] [phone] 0 Phone: () - 05/23 CA 125 panel CA 125 UNITS/ ML 0.0 34.0 7.00 Test performed at [facility] on a [employer] 2000 Immunoass ay Analyzer that uses an immunoenz ymometric sandwich assay for analysis. Patient testing should not be performed using multiple methodolo gies due to analytica l variation seen between test methodolo gies. FINAL [facility], [address] [facility] 100 [facility] [phone] Phone: () - 05/23 [facility] other lab See psychiatry instructor d 08/11 [facility] other lab See psychiatry instructor d 11/10 [facility] other lab See psychiatry instructor d 11/14 [facility] other lab See psychiatry instructor d 11/16 [facility] other lab See psychiatry instructor d 02/17 [facility] other lab See psychiatry instructor d 03/11 [facility] other lab See psychiatry instructor d 03/24 [facility] other lab See psychiatry instructor d 04/07 [facility] other lab See psychiatry instructor d 05/18 CA 125 panel CA 125 UNITS/ ML 0.0 34.0 9.50 Test performed at [facility] on a [employer] 2000 Immunoass ay Analyzer that uses an immunoenz ymometric sandwich assay for analysis. Patient testing should not be performed using multiple methodolo gies due to analytica l variation seen between test methodolo gies. FINAL Harper noel [facility], [address] [facility] 100 [facility] [phone] 0 Phone: () - 11/06 [facility] other lab See psychiatry instructor d 11/14 CA 125 panel CA 125 UNITS/ ML 0.0 34.0 12.60 Test performed at [facility] on a [employer] 2000 Immunoass ay Analyzer that uses an immunoenz ymometric sandwich assay for analysis. Patient testing should not be performed using multiple methodolo gies due to analytica l variation seen between test methodolo gies. FINAL Harper Wheeler [facility] [place], [address] [facility] [address] [facility] [phone] 0 Phone: () - 02/20 [facility] other lab See psychiatry instructor d 05/23 CA 125 panel CA 125 UNITS/ ML 0.0 34.0 10.30 Test performed at [facility] on a [employer] 2000 Immunoass ay Analyzer that uses an immunoenz ymometric sandwich assay for analysis. Patient testing should not be performed using multiple methodolo gies due to analytica l variation seen between test methodolo gies. FINAL Pippa worthington [facility] [place], [address] [facility] [address] [facility] [phone] Phone: () - 09/04 [facility] other lab See psychiatry instructor d 09/07 CA 125 panel CA 125 UNITS/ ML 0.0 34.0 9.80 Test performed at [facility] on a [employer] 2000 Immunoass ay Analyzer that uses an immunoenz ymometric sandwich assay for analysis. Patient testing should not be performed using multiple methodolo gies due to analytica l variation seen between test methodolo gies. FINAL Theresa worthington [facility] [place], [address] [facility] [address] [facility] [phone] 0 Phone: () - 03/17 CA 125 panel CA 125 U/ML 0.0 35.0 12.40 Test performed at [facility] on a [employer] 7600 Immunoass ay Analyzer that uses an immunomet negro immunoass ay technique . Patient testing should not be performed using multiple methodolo gies due to analytica l variation seen between test methodolo gies. FINAL Theresa Alvares [facility] [place], [address] [facility] [phone] 0 09/15 CA 125 panel CA 125 U/ML 0.0 35.0 8.60 Test performed at [facility] on a [employer] 7600 Immunoass ay Analyzer that uses an immunomet negro immunoass ay technique . Patient testing should not be performed using multiple methodolo gies due to analytica l variation seen between test methodolo gies. FINAL Pippa worthington * [facility] , [address] [facility] [address] [facility] [phone] 0 03/17 CA 125 panel CA 125 U/ML 0.0 35.0 8.90 Test performed at [facility] on a [employer] 7600 Immunoass ay Analyzer that uses an immunomet negro immunoass ay technique . Patient testing should not be performed using multiple methodolo gies due to analytica l variation seen between test methodolo gies. FINAL Pippa worthington * [facility] , [address] [facility] [address] [facility] [phone] Medications Date Name Route Dose Frequency [...]
--- OUTSIDE RECORDS SUMMARY | 2025-07-20 00:12 | XMS_ITS ---
Author Name Interface, [employer] Address [address] [place] [address] Oncology Address [facility] [place] [address] Allergies and Adverse Reactions Plan Reason for Visit Encounters Immunizations Diagnostic Results Medications Problems Vital Signs
--- OUTSIDE RECORDS SUMMARY | 2025-07-20 00:13 | XMS_ITS ---
Author Name Interface, [id number] lity Address [address] [address] [facility] Oncology Address [address] [address] Allergies and Adverse Reactions Medication/Group Name Reaction [...] APPOINTMENT CT - 605 CT CAP @ [facility] - CHECK IN @10 AM 11/22/2020 [...] 4.5 FINAL Tamanna Peters a On[facility] - [place], [address] [place] [address] [place] [address] [id number] [phone] Phone: () - 11/22 CMP Alkal ine phosp hatas e U/L 46.0 116.0 67 FINAL Tamanna Peters [address] [phone] 0 Phone: () - 11/22 CMP ALT/S GPT U/L 7.0 40.0 13 FINAL Tamanna noel [address] [phone] 0 Phone: () - 11/22 CMP AST/S GOT U/L 13.0 40.0 20 FINAL Tamanna Mcginnis[address] [id number] 0 Phone: () - 11/22 CMP BUN mg/dL 9.0 23.0 20 FINAL Tamanna Mcginnis[address] [id number] 0 Phone: () - 11/22 CMP Calci um mg/dL 8.7 10.4 9.1 FINAL Tamannanithin Mcginnis[address] [id number] 0 Phone: () - 11/22 CMP Chlor sathish mmol/L 96.0 114.0 96 [facility] [address] [phone] 0 Phone: () - 11/22 CMP CO2 mmol/L 20.0 31.0 27 FINAL Tamannanithin Rolon [address] [id number] 0 Phone: () - 11/22 CMP Creat inine mg/dL 0.5 1.2 1.06 FINAL Tamannanithin Mcginnis[address] [id number] 0 Phone: () - 11/22 CMP GFR estim ate ml/min /1.73m ^2 52.8 Low GFR is calculate d using the CKD-EPI equation. FINAL Tamanna Mcginnis[address] [phone] 0 Phone: () - 11/22 CMP Gluco se mg/dL 73.0 126.0 94 FINAL Tamanna Mcginnis[address] [id number] 0 Phone: () - 11/22 CMP Potas sium mmol/L 3.5 5.1 5.0 FINAL Tamanna noel [address] [id number] 0 Phone: () - 11/22 CMP Sodiu m mmol/L 136.0 145.0 130 Low FINAL Tamanna noel [address] [id number] 0 Phone: () - 11/22 CMP Bilir ubin, total mg/dL 0.3 1.2 0.5 FINAL Tamanna Peters [address] [id number] 0 Phone: () - 11/22 CMP Total prote in g/dL 5.7 8.2 6.7 FINAL Tamanna Peters [address] [phone] 0 Phone: () - 11/22 CA 125 panel CA 125 UNITS/ ML 0.0 34.0 8.10 Test performed at [facility] on a [employer] Immunoass ay Analyzer that uses an immunoenz ymometric sandwich assay for analysis. Patient testing should not be performed using multiple methoddanelle soto due to analytica l variation seen between test methoddanelle soto. FINAL Tamanna noel [address] [phone] 0 Phone: () - 11/22 CBC w/ auto diff LY # K/uL 0.4 3.6 1.8 FINAL Tamanna Mcginnis bert [facility], [address] [place] [address] 200 [facility] [id number] 0 Phone: () - 11/22 CBC w/ auto diff MO # K/uL 0.2 1.3 0.7 FINAL Tamanna Mcginnis bert [facility], [address] [place] [address] 200 [facility] [id number] 0 Phone: () - 11/22 CBC w/ auto diff EO # K/uL 0.0 0.6 0.4 FINAL Tamanna nole Oncology - [place] [facility], [address] [place] [address] 200 [place] [id number] 0 Phone: () - 11/22 CBC w/ auto diff BA # K/uL 0.0 0.2 0.1 FINAL Tamanna noel Oncology - [place] [facility], [address] [place] [address] 200 [place] [id number] 0 Phone: () - 11/22 CBC w/ auto diff NRBC % #/100W BC 0.0 0.2 0.0 FINAL Tamanna noel Oncology - [place] [facility], [address] [place] [address] 200 [place] [id number] 0 Phone: () - 11/22 CBC w/ auto diff RBC M/uL 3.9 5.1 4.15 FINAL Tamanna noel Oncology - [place] [facility], [address] [place] [address] 200 [place] [id number] 0 Phone: () - 11/22 CBC w/ auto diff HCT % 35.0 48.0 42.3 FINAL Tamanna noel Oncology - [place] [facility], [address] [place] [address] 200 [place] [id number] 0 Phone: () - 11/22 CBC w/ auto diff MCV fL 80.0 104.0 101.9 FINAL Tamanna noel Oncology - [place] [facility], [address] [place] [address] 200 [place] [id number] 0 Phone: () - 11/22 CBC w/ auto diff MCH pg 26.0 35.0 33.5 FINAL Tamanna noel Oncology - [place] [facility], [address] [place] [address] 200 [place] [id number] 0 Phone: () - 11/22 CBC w/ auto diff MCHC g/dL 30.0 35.0 32.9 FINAL Tamanna noel Oncology - [place] [facility], [address] [place] [address] 200 [place] [id number] 0 Phone: () - 11/22 CBC w/ auto diff MPV fL 9.5 13.4 9.3 Low FINAL Tamanna noel Oncology - [place], [address] [place] [id number] 0 Phone: () - 11/22 CBC w/ auto diff RDW % 11.4 16.1 12.70 FINAL Tamanna noel Oncology - [place], [address] [place] [id number] 0 Phone: () - 11/22 CBC w/ auto diff WBC K/uL 3.0 8.9 8.8 FINAL Tamanna noel Oncology - [place], [address] [place] [address] [address] [place] [id number] 0 Phone: () - 11/22 CBC w/ auto diff HGB g/dL 11.3 15.2 13.9 FINAL Tamanna noel Oncology - [place], [address] [place] [address] [address] [place] [id number] 0 Phone: () - 11/22 CBC w/ auto diff PLT K/uL 113.0 364.0 197 FINAL Tamanna noel Oncology - [place], [address] [place] [address] [address] [place] [id number] 0 Phone: () - 11/22 CBC w/ auto diff Avtar # (ANC) K/uL 1.6 6.6 5.8 FINAL Tamanna noel Oncology - [place], [address] [place] [address] [address] [place] [id number] 0 Phone: () - 11/22 CBC w/ auto diff Avtar % % 43.0 74.0 66.0 FINAL Tamanna noel Oncology - [place], [address] [place] [address] [address] [place] [id number] 0 Phone: () - 11/22 CBC w/ auto diff IG % % 0.0 0.5 0.5 FINAL Tamanna noel Oncology - [place], [address] [place] [id number] 0 Phone: () - 11/22 CBC w/ auto diff IG # K/uL 0.0 0.03 0.04 High FINAL Tamanna noel Oncology - [facility], [address] [place] [id number] 0 Phone: () - 11/22 CBC w/ auto diff LY % % 14.0 41.0 20.2 FINAL Tamanna noel Oncology - [facility], [address] [place] [id number] 0 Phone: () - 11/22 CBC w/ auto diff MO % % 6.0 15.0 7.8 FINAL Tamanna noel Oncology [facility], [address] [place] [id number] 0 Phone: () - 11/22 CBC w/ auto diff EO % % 0.0 7.0 4.9 FINAL Tamanna noel Oncology [facility], [address] [place] [id number] 0 Phone: () - 11/22 CBC w/ auto diff BA % % 0.0 2.0 0.6 FINAL Tamanna noel Oncology [facility], [address] [place] [id number] 0 Phone: () - 11/22 [facility] other lab See promotions executive producer d 11/22 [facility] other lab See promotions executive producer d 11/22 [facility] other lab See promotions executive producer d 02/11 CA 125 panel CA 125 UNITS/ ML 0.0 34.0 8.70 Test performed at [facility] on a [employer] 2000 Immunoass ay Analyzer that uses an immunoenz ymometric sandwich assay for analysis. Patient testing should not be performed using multiple methoddanelle soto due to analytica l variation seen between test methoddanelle soto. FINAL Tamanna noel Oncology [address] [phone] 0 Phone: () - 02/11 CMP Album in g/dL 3.2 5.2 4.3 FINAL Tamanna noel [address] [facility] [id number] 0 Phone: () - 02/11 CMP Alkal ine phosp hatas e U/L 46.0 116.0 53 FINAL Tamanna noel [address] [id number] 0 Phone: () - 02/11 CMP ALT/S GPT U/L 7.0 40.0 14 FINAL Tamanna Peters [address] [id number] 0 Phone: () - 02/11 CMP AST/S GOT U/L 13.0 40.0 22 FINAL Tamanna Peters [address] [id number] 0 Phone: () - 02/11 CMP BUN mg/dL 9.0 23.0 7 Low FINAL Tamanna noel [address] [id number] 0 Phone: () - 02/11 CMP Calci um mg/dL 8.7 10.4 9.6 [facility] Tamanna Peters [address] [id number] 0 Phone: () - 02/11 CMP Chlor sathish mmol/L 96.0 114.0 91 Low [facility] Tamanna Peters [address] [id number] 0 Phone: () - 02/11 CMP CO2 mmol/L 20.0 31.0 26 FINAL Tamanna Peters [address] [id number] 0 Phone: () - 02/11 CMP Creat inine mg/dL 0.5 1.2 1.03 [facility] Tamanna Mcginnis[address] [id number] 0 Phone: () - 02/11 CMP GFR estim ate ml/min /1.73m ^2 54.5 Low GFR is calculate d using the CKD-EPI equation. [facility] Tamanna Mcginnis[address] [id number] 0 Phone: () - 02/11 CMP Gluco se mg/dL 73.0 126.0 97 FINAL Tamanna noel [address] [id number] 0 Phone: () - 02/11 CMP Potas sium mmol/L 3.5 5.1 4.5 FINAL Tamanna noel [address] [id number] 0 Phone: () - 02/11 CMP Sodiu m mmol/L 136.0 145.0 129 Low FINAL Tamanna noel [address] [id number] 0 Phone: () - 02/11 CMP Bilir ubin, total mg/dL 0.3 1.2 0.4 FINAL Tamanna noel [address] [id number] 0 Phone: () - 02/11 CMP Total prote in g/dL 5.7 8.2 6.6 FINAL Tamanna noel [address] [id number] 0 Phone: () - 02/11 CBC w/ auto diff WBC K/uL 3.0 8.9 9.2 High FINAL Tamanna noel [facility], [address] [place] [address] 200 [place] [id number] 0 Phone: () - 02/11 CBC w/ auto diff HGB g/dL 11.3 15.2 13.3 FINAL Tamanna noel [facility], [address] [place] [address] 200 [place] [id number] 0 Phone: () - 02/11 CBC w/ auto diff PLT K/uL 113.0 364.0 267 FINAL Tamanna noel [facility], [address] [place] [address] 200 [place] [id number] 0 Phone: () - 02/11 CBC w/ auto diff Avtar # (ANC) K/uL 1.6 6.6 6.1 FINAL Tamanna noel Oncology - [place], [address] [place] [address] [address] [place] [id number] 0 Phone: () - 02/11 CBC w/ auto diff Avtar % % 43.0 74.0 66.8 FINAL Tamanna noel Oncology - [place], [address] [place] [address] [address] [place] [id number] 0 Phone: () - 02/11 CBC w/ auto diff IG % % 0.0 0.5 1.9 High FINAL Tamanna noel Oncology - [place], [address] [place] [address] [address] [place] [id number] 0 Phone: () - 02/11 CBC w/ auto diff IG # K/uL 0.0 0.03 0.17 High FINAL Tamanna noel Oncology - [place], [address] [place] [address] 200 [place] [id number] 0 Phone: () - 02/11 CBC w/ auto diff LY % % 14.0 41.0 19.2 FINAL Tamanna noel Oncology - [place], [address] [place] [address] [address] [place] [id number] 0 Phone: () - 02/11 CBC w/ auto diff MO % % 6.0 15.0 9.2 FINAL Tamanna noel Oncology - [place], [address] [place] [address] [address] [place] [id number] 0 Phone: () - 02/11 CBC w/ auto diff EO % % 0.0 7.0 2.5 FINAL Tamanna noel Oncology - [place], [address] [place] [address] [address] [place] [id number] 0 Phone: () - 02/11 CBC w/ auto diff BA % % 0.0 2.0 0.4 FINAL Tamanna noel Oncology - [place], [address] [place] [address] [address] [place] [id number] 0 Phone: () - 02/11 CBC w/ auto diff LY # K/uL 0.4 3.6 1.8 FINAL Tamanna noel Oncology - [place], [address] [place] [id number] 0 Phone: () - 02/11 CBC w/ auto diff MO # K/uL 0.2 1.3 0.8 FINAL Tamanna noel Oncology - [place], [address] [place] [id number] 0 Phone: () - 02/11 CBC w/ auto diff EO # K/uL 0.0 0.6 0.2 FINAL Tamanna noel Oncology - [place], [address] [place] [id number] 0 Phone: () - 02/11 CBC w/ auto diff BA # K/uL 0.0 0.2 0.0 FINAL Tamanna noel Oncology - [place] [facility], [address] [place] [id number] 0 Phone: () - 02/11 CBC w/ auto diff NRBC % #/100W BC 0.0 0.2 0.2 FINAL Tamanna noel Oncology - [place], [address] [place] [address] 200 [place] [id number] 0 Phone: () - 02/11 CBC w/ auto diff RBC M/uL 3.9 5.1 4.09 FINAL Tamanna noel Oncology - [place], [address] [place] [address] 200 [place] [id number] 0 Phone: () - 02/11 CBC w/ auto diff HCT % 35.0 48.0 40.6 FINAL Tamanna noel Oncology - [place], [address] [place] [address] 200 [place] [id number] 0 Phone: () - 02/11 CBC w/ auto diff MCV fL 80.0 104.0 99.3 FINAL Tamanna noel Oncology - [place] [facility], [address] [place] [address] 200 [place] [id number] 0 Phone: () - 02/11 CBC w/ auto diff MCH pg 26.0 35.0 32.5 FINAL Tamanna noel Oncology - [place] [facility], [address] [place] [address] 200 [place] [id number] 0 Phone: () - 02/11 CBC w/ auto diff MCHC g/dL 30.0 35.0 32.8 FINAL Tamanna noel Oncology - [place], [address] 200 [facility] [place] [id number] 0 Phone: () - 02/11 CBC w/ auto diff MPV fL 9.5 13.4 8.6 Low FINAL Tamanna noel Oncology [facility], [address] 200 [facility] [place] [id number] 0 Phone: () - 02/11 CBC w/ auto diff RDW % 11.4 16.1 14.00 FINAL Tamanna noel [facility], [address] [place] [address] 200 [facility] [place] [id number] 0 Phone: () - 02/11 iSTAT creat inine panel Creat inine , iSTAT mg/dl 0.6 1.3 1.3 FINAL Tamanna noel Oncology [facility], [address] [facility] [place] [id number] 0 Phone: () - 02/11 iSTAT creat inine panel GFR estim ate ml/min /1.73m ^2 41.2 Low GFR is calculate d using the CKD-EPI equation. FINAL Tamanna noel [facility], [address] [place] [address] 200 [facility] [place] [id number] 0 Phone: () - 02/11 [facility] other lab See promotions executive producer d 05/23 CA 125 panel CA 125 UNITS/ ML 0.0 34.0 7.00 Test performed at [facility] on a [employer] 2000 Immunoass ay Analyzer that uses an immunoenz ymometric sandwich assay for analysis. Patient testing should not be performed using clarence soto due to analytica l variation seen between test hallie soto. FINAL Harper Peters [facility], [address] [facility] [address] [place] [id number] 0 Phone: () - 05/23 CMP Album in g/dL 3.2 5.2 4.6 FINAL Harper noel [facility] [address] [id number] 0 Phone: () - 05/23 CMP Alkal ine phosp hatas e U/L 46.0 116.0 58 FINAL aHrper Peters [facility] [address] [id number] 0 Phone: () - 05/23 CMP ALT/S GPT U/L 7.0 40.0 11 [place]AL [place] [address] [id number] 0 Phone: () - 05/23 CMP AST/S GOT U/L 13.0 40.0 23 FINAL Harper Wheeler [place] [address] [id number] 0 Phone: () - 05/23 CMP BUN mg/dL 9.0 23.0 15 FINAL Harper Wheeler [place] [address] [id number] 0 Phone: () - 05/23 CMP Calci um mg/dL 8.7 10.4 10.1 FINAL Harper Wheeler [place] [address] [id number] 0 Phone: () - 05/23 CMP Chlor sathish mmol/L 96.0 114.0 88 Low FINAL Harper Wheeler [place] [address] [id number] 0 Phone: () - 05/23 CMP CO2 [...] 96 hour stability window. FINAL Harper Wheeler [place] [address] [id number] 0 Phone: () - 05/23 CMP Creat inine mg/dL 0.5 1.2 0.97 FINAL Harper Mcginnis bert [place] [address] [facility] [address] [place] [address] [id number] 0 Phone: () - 05/23 CMP GFR estim ate ml/min /1.73m ^2 58.5 Low GFR is calculate d using the CKD-EPI equation. FINAL Harper Wheeler [place] [address] [facility] [address] [place] [address] [id number] 0 Phone: () - 05/23 CMP Gluco se mg/dL 73.0 126.0 72 Low FINAL Harper Wheeler [place] [address] [facility] [address] [place] [address] [id number] 0 Phone: () - 05/23 CMP Potas sium mmol/L 3.5 5.1 4.8 FINAL Harper Wheeler [place] [address] [id number] 0 Phone: () - 05/23 CMP Sodiu m mmol/L 136.0 145.0 129 Low [facility] [address] [id number] 0 Phone: () - 05/23 CMP Bilir ubin, total mg/dL 0.3 1.2 0.3 FINAL Harper Mcginnis bert [place] [address] [id number] 0 Phone: () - 05/23 CMP Total prote in g/dL 5.7 8.2 7.3 FINAL Harper Mcginnis bert [place] [address] [facility] [address] [place] [address] [id number] 0 Phone: () - 05/23 CBC w/ auto diff WBC K/uL 3.0 8.9 8.9 FINAL Harper Mcginnis bert [facility] lis, [address] [place] [address] [address] [facility] [id number] 0 Phone: () - 05/23 CBC w/ auto diff HGB g/dL 11.3 15.2 15.7 High FINAL Harper [place] [facility] [place], [address] [place] [address] [address] [place] [id number] 0 Phone: () - 05/23 CBC w/ auto diff PLT K/uL 113.0 364.0 220 FINAL Harper noel Oncology - [place], [address] [place] [address] [address] [place] [id number] 0 Phone: () - 05/23 CBC w/ auto diff Avtar # (ANC) K/uL 1.6 6.6 5.5 FINAL Harper Peters a Oncology - [place], [address] [place] [address] [address] [place] [id number] 0 Phone: () - 05/23 CBC w/ auto diff Avtar % % 43.0 74.0 62.5 FINAL Harper Mcginnisot a Oncology - [place], [address] [place] [address] [address] [place] [id number] 0 Phone: () - 05/23 CBC w/ auto diff IG % % 0.0 0.5 0.5 FINAL Harper Mcginnisot bert Oncology - [place], [address] [place] [address] [address] [place] [id number] 0 Phone: () - 05/23 CBC w/ auto diff IG # K/uL 0.0 0.03 0.04 High FINAL Harper noel Oncology - [place], [address] [place] [address] [address] [place] [id number] 0 Phone: () - 05/23 CBC w/ auto diff LY % % 14.0 41.0 22.5 FINAL Harper Peters a [facility] - [place], [address] [place] [address] [address] [place] [id number] 0 Phone: () - 05/23 CBC w/ auto diff MO % % 6.0 15.0 8.0 FINAL Harper Mcginnisot bert Oncology - [place], [address] [place] [address] [address] [place] [id number] 0 Phone: () - 05/23 CBC w/ auto diff EO % % 0.0 7.0 5.9 FINAL Harper Mcginnisot a Oncology - [place], [address] [place] [address] 200 [place] [id number] 0 Phone: () - 05/23 CBC w/ auto diff BA % % 0.0 2.0 0.6 FINAL Harper noel Oncology - [place], [address] 200 [place] [id number] 0 Phone: () - 05/23 CBC w/ auto diff LY # K/uL 0.4 3.6 2.0 FINAL Harper noel Oncology - [place], [address] [place] [address] 200 [place] [id number] 0 Phone: () - 05/23 CBC w/ auto diff MO # K/uL 0.2 1.3 0.7 FINAL Harper noel Oncology - [place], [facility] [address] [place] [id number] 0 Phone: () - 05/23 CBC w/ auto diff EO # K/uL 0.0 0.6 0.5 FINAL Harper noel Oncology - [place], [address] [place] [address] 200 [place] [id number] 0 Phone: () - 05/23 CBC w/ auto diff BA # K/uL 0.0 0.2 0.1 FINAL Harper noel Oncology - [place], [address] [place] [address] 200 [place] [id number] 0 Phone: () - 05/23 CBC w/ auto diff NRBC % #/100W BC 0.0 0.2 0.0 FINAL Harper noel Oncology - [place], [facility] [address] [place] [id number] 0 Phone: () - 05/23 CBC w/ auto diff RBC M/uL 3.9 5.1 4.85 FINAL Harper noel Oncology - [place], [address] [place] [address] 200 [place] [id number] 0 Phone: () - 05/23 CBC w/ auto diff HCT % 35.0 48.0 47.1 FINAL Harper noel Oncology - [place], [address] [place] [address] 200 [place] [id number] 0 Phone: () - 05/23 CBC w/ auto diff MCV fL 80.0 104.0 97.1 FINAL Harper Mcginnisot bert Oncology - [place] [facility], [address] [place] [id number] 0 Phone: () - 05/23 CBC w/ auto diff MCH pg 26.0 35.0 32.4 FINAL Harper Mcginnisot bert Oncology - [place] [facility], [address] [place] [id number] 0 Phone: () - 05/23 CBC w/ auto diff MCHC g/dL 30.0 35.0 33.3 FINAL Harper Mcginnisot bert Oncology - [place] [facility], [address] [place] [id number] 0 Phone: () - 05/23 CBC w/ auto diff MPV fL 9.5 13.4 9.1 Low FINAL Harper Mcginnis a Oncology - [place] [facility], [address] [place] [id number] 0 Phone: () - 05/23 CBC w/ auto diff RDW % 11.4 16.1 13.00 FINAL Harper Mcginnis bert Oncology - [place] [facility], [address] 200 [place] [id number] 0 Phone: () - 05/23 [facility] other lab See promotions executive producer d 08/11 [facility] other lab See promotions executive producer d 11/10 [facility] other lab See promotions executive producer d 11/14 [facility] other lab See promotions executive producer d 11/16 [facility] other lab See promotions executive producer d 02/17 [facility] other lab See promotions executive producer d 03/11 [facility] other lab See promotions executive producer d 03/24 [facility] other lab See promotions executive producer d 04/07 [facility] other lab See promotions executive producer d 05/18 CA 125 panel CA 125 UNITS/ ML 0.0 34.0 9.50 Test performed at [facility] on a [employer] 2000 Immunoass ay Analyzer that uses an immunoenz ymometric sandwich assay for analysis. Patient testing should not be performed using multiple methodolo gies due to analytica l variation seen between test methodolo gies. FINAL Harper Peters [facility] - [place], [address] [facility] [id number] 0 Phone: () - 11/06 [facility] other lab See promotions executive producer d 11/14 CA 125 panel CA 125 UNITS/ ML 0.0 34.0 12.60 Test performed at [facility] on a [employer] 2000 Immunoass ay Analyzer that uses an immunoenz ymometric sandwich assay for analysis. Patient testing should not be performed using multiple methodolo gies due to analytica l variation seen between test methodolo gies. FINAL Harper Peters a Oncology - [facility] [address] [facility] [id number] 0 Phone: () - 02/20 [facility] other lab See promotions executive producer d 05/23 CA 125 panel CA 125 UNITS/ ML 0.0 34.0 10.30 Test performed at [facility] on a [employer] 2000 Immunoass ay Analyzer that uses an immunoenz ymometric sandwich assay for analysis. Patient testing should not be performed using multiple methodolo gies due to analytica l variation seen between test methodolo gies. FINAL Pippa worthington [employer] [facility] Oncology - [facility] [address] [facility] [id number] 0 Phone: () - 09/04 [facility] other lab See promotions executive producer d 09/07 CA 125 panel CA 125 UNITS/ ML 0.0 34.0 9.80 Test performed at [facility] on a [employer] 2000 Immunoass ay Analyzer that uses an immunoenz ymometric sandwich assay for analysis. Patient testing should not be performed using multiple methodolo gies due to analytica l variation seen between test methodolo gies. FINAL Theresa worthington [employer] [facility] - [place], [address] [facility] [id number] 0 Phone: () - 03/17 CA 125 panel CA 125 U/ML 0.0 35.0 12.40 Test performed at [facility] on a [id number] Immunoass ay Analyzer that uses an immunomet negro immunoass ay technique . Patient testing should not be performed using multiple methodolo gies due to analytica l variation seen between test methodolo gies. FINAL Theresa Bollinge r * [place] [facility] [place], [facility] [address] [phone] 09/15 CA 125 panel CA 125 U/ML 0.0 35.0 8.60 Test performed at [facility] on a [employer] 7600 Immunoass ay Analyzer that uses an immunomet negro immunoass ay technique . Patient testing should not be performed using multiple methodolo gies due to analytica l variation seen between test methodolo gies. FINAL Pippa Anne Marie worthington * [facility] [facility] , [facility] [address] [facility] [id number] 0 03/17 CA 125 panel CA 125 U/ML 0.0 35.0 8.90 Test performed at [facility] on a [place] [place]600 [employer] ay Analyzer that uses an immunomet negro immunoass ay technique . Patient testing should not be performed using multiple methodolo gies due to analytica l variation seen between test methodolo gies. FINAL [place] [facility] , 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
--- OUTSIDE RECORDS SUMMARY | 2025-07-20 00:14 | XMS_ITS ---
Author Name Interface, [id number] lity Address [address] [facility] [address] [address] [facility] Address [address] [facility] [address] [address] Allergies and Adverse Reactions Medication/Group Name Reaction [...] APPOINTMENT CT - 605 CT CAP @ [facility] - CHECK IN @10 AM 11/22/2020 [...] Sodiu m mmol/L 135.0 145.0 130 Low [facility] 08/04 CMP Potas sium mmol/L 3.5 5.0 4.1 FINAL [facility] 08/04 CMP Chlor sathish mmol/L 98.0 110.0 94 Low FINAL [facility] 08/04 CMP CO2 mmol/L 21.0 31.0 27 FINAL [facility] 08/04 CMP Anion gap, mmol/ L 5.0 18.0 9.0% [facility] 08/04 CMP Gluco se mg/dL 65.0 100.0 86 [facility] 08/04 CMP Calci um mg/dL 8.5 10.5 9.2 FINAL [facility] 08/04 CMP BUN mg/dL 8.0 25.0 11 FINAL [facility] 08/04 CMP Creat inine mg/dL 0.57 1.11 0.92 FINAL [facility] 08/04 CMP BUN/C reati nine ratio 10.0 20.0 12.0% FINAL [facility] 08/04 CMP GFR Afric an Ameri can, estim ated ml/min /1.73m 2 >60 FINAL Tamanna Gonzales 08/04 CMP GFR non-A frica n Ameri can, estim ated ml/min /1.73m 2 >60 FINAL [facility] 08/04 CMP Album in g/dL 3.2 4.6 [...] GOT IU/L 2.0 40.0 27 Test Performed by:[facility] [address], [address] - [place], [place] [address]Ihju e : FINAL Tamannanithin Rolon 08/04 CA 125 panel CA 125 UNITS/ ML 0.0 34.0 6.90 Test performed at [facility] on a [employer] Immuno[employer] ay Analyzer that uses an immunoenz ymometric sandwich assay for analysis. Patient testing should not be performed using multiple methodolo gies due to analytica l variation seen between test methodolo gies. FINAL Annamarie Mcginnis[address] [phone] 0 Phone: () - 08/04 TSH panel TSH uIU/ml 0.32 5.0 1.44 Test performed at [facility] on a [employer] computer 2000 Immunoass ay Analyzer that uses an immunoenz ymometric sandwich assay for analysis. Patient testing should not be performed using multiple methodolo gies due to analytica l variation seen between test methodolo gies. FINAL Annamarie Mcginnis[address] [id number] 0 Phone: () - 08/04 CBC w/ auto diff WBC K/uL 3.0 8.9 10.1 High FINAL Annamarie Mcginnisot a [facility] - [place], [address] [place] [address] [address] [place] [id number] 0 Phone: () - 08/04 CBC w/ auto diff HGB g/dL 11.3 15.2 10.7 Low FINAL Annamarie noel [facility] - [place], [address] [place] [address] [address] [place] [id number] 0 Phone: () - 08/04 CBC w/ auto diff PLT K/uL 113.0 364.0 179 FINAL Annamarie noel [facility] - [place], [address] [place] [address] [address] [place] [id number] 0 Phone: () - 08/04 CBC w/ auto diff Avtar # (ANC) K/uL 1.6 6.6 5.9 FINAL Annamarie noel [facility] - [place], [address] [place] [id number] 0 Phone: () - 08/04 CBC w/ auto diff Avtar % % 43.0 74.0 58.5 FINAL Annamarie noel [facility] - [place], [address] [place] [id number] 0 Phone: () - 08/04 CBC w/ auto diff IG % % 0.0 0.5 0.4 FINAL Annamarie noel [facility] - [place], [address] [place] [id number] 0 Phone: () - 08/04 CBC w/ auto diff IG # K/uL 0.0 0.03 0.04 High FINAL Annamarie noel [facility] - [place], [address] [place] [address] [address] [place] [id number] 0 Phone: () - 08/04 CBC w/ auto diff LY % % 14.0 41.0 28.4 FINAL Annamarie noel [facility] - [place], [address] [place] [address] [address] [place] [id number] 0 Phone: () - 08/04 CBC w/ auto diff MO % % 6.0 15.0 7.5 FINAL Annamarie Peters a [facility] - [place], [address] [place] [address] [address] [place] [id number] 0 Phone: () - 08/04 CBC w/ auto diff EO % % 0.0 7.0 4.6 FINAL Annamarie noel [facility] - [place] [facility], [address] [place] [address] 200 [facility] [place] [id number] 0 Phone: () - 08/04 CBC w/ auto diff BA % % 0.0 2.0 0.6 FINAL Annamarie Peters a [facility] - [place] [facility], [address] [place] [address] 200 [facility] [place] [id number] 0 Phone: () - 08/04 CBC w/ auto diff LY # K/uL 0.4 3.6 2.9 FINAL Annamarie Peters a [facility] - [place] [facility], [address] [place] [address] 200 [facility] [place] [id number] 0 Phone: () - 08/04 CBC w/ auto diff MO # K/uL 0.2 1.3 0.8 FINAL Annamarie Peters a [facility] - [place] [facility], [address] [place] [address] 200 [facility] [place] [id number] 0 Phone: () - 08/04 CBC w/ auto diff EO # K/uL 0.0 0.6 0.5 FINAL Annamarie Peters a [facility] - [place] [facility], [address] [place] [address] [address] [facility] [place] [id number] 0 Phone: () - 08/04 CBC w/ auto diff BA # K/uL 0.0 0.2 0.1 FINAL Annamarie Peters a [facility] - [place] [facility], [address] [place] [address] 200 [facility] [place] [id number] 0 Phone: () - 08/04 CBC w/ auto diff NRBC % #/100W BC 0.0 0.2 0.0 FINAL Annamarie Mcginnisot a Oncology - [place] [facility], [address] [place] [address] 200 [place] [id number] 0 Phone: () - 08/04 CBC w/ auto diff RBC M/uL 3.9 5.1 3.00 Low FINAL Annamarie Mcginnisot a Oncology - [place] [facility], [address] [place] [address] 200 [facility] [place] [id number] 0 Phone: () - 08/04 CBC w/ auto diff HCT % 35.0 48.0 30.6 Low FINAL Annamarie Mcginnisot a On[facility] - [place] [facility], [address] [facility] [place] [id number] 0 Phone: () - 08/04 CBC w/ auto diff MCV fL 80.0 104.0 102.0 FINAL Annamarie Mcginnisot a On[facility] - [place] [facility], [address] [facility] [place] [id number] 0 Phone: () - 08/04 CBC w/ auto diff MCH pg 26.0 35.0 35.7 High FINAL Annamarie Mcginnisot a On[facility] - [place] [facility], [address] [place] [address] [address] [facility] [place] [id number] 0 Phone: () - 08/04 CBC w/ auto diff MCHC g/dL 30.0 35.0 35.0 FINAL Annamarie Mcginnisot a On[facility] - [place] [facility], [address] [place] [address] [address] [facility] [place] [id number] 0 Phone: () - 08/04 CBC w/ auto diff MPV fL 9.5 13.4 9.1 Low FINAL Annamarie Mcginnisot a Oncology - [place] [facility], [address] [place] [address] [address] [facility] [place] [id number] 0 Phone: () - 08/04 CBC w/ auto diff RDW % 11.4 16.1 12.60 FINAL Annamarie Mcginnisot a Oncology - [place] [facility], [address] [place] [address] [address] [facility] [place] [id number] 0 Phone: () - 08/04 Magne sium, mg/dL mg/dL 1.5 2.3 1.5 FINAL Annamarie Mcginnisot a Oncology [facility], [address] [facility] [address] [facility] [id number] 0 Phone: () - 08/04 [facility] other lab See kilnman d 08/04 [facility] other lab See kilnman d 09/01 CBC w/ auto diff WBC K/uL 3.0 8.9 9.6 High FINAL Annamarie Mcginnisot a Oncology - [place] [facility], [facility] [address] [place] [id number] 0 Phone: () - 09/01 CBC w/ auto diff HGB g/dL 11.3 15.2 11.3 FINAL Annamarie noel [facility] - [place], [address] [place] [address] [address] [place] [id number] 0 Phone: () - 09/01 CBC w/ auto diff PLT K/uL 113.0 364.0 185 FINAL Annamarie noel [facility] - [place], [address] [place] [address] [address] [place] [id number] 0 Phone: () - 09/01 CBC w/ auto diff Avtar # (ANC) K/uL 1.6 6.6 5.7 FINAL Annamarie noel [facility] - [place], [address] [place] [id number] 0 Phone: () - 09/01 CBC w/ auto diff Avtar % % 43.0 74.0 59.0 FINAL Annamarie noel [facility] - [place], [address] [place] [id number] 0 Phone: () - 09/01 CBC w/ auto diff IG % % 0.0 0.5 0.5 FINAL Annamarie noel [facility] - [place], [address] [place] [id number] 0 Phone: () - 09/01 CBC w/ auto diff IG # K/uL 0.0 0.03 0.05 High FINAL Annamarie noel [facility] - [place], [address] [place] [address] [address] [place] [id number] 0 Phone: () - 09/01 CBC w/ auto diff LY % % 14.0 41.0 27.2 FINAL Annamarie noel [facility] - [place], [address] [place] [id number] 0 Phone: () - 09/01 CBC w/ auto diff MO % % 6.0 15.0 8.3 FINAL Annamarie noel [facility] - [place], [address] [place] [address] [address] [place] [id number] 0 Phone: () - 09/01 CBC w/ auto diff EO % % 0.0 7.0 4.3 FINAL Annamarie Mcginnisot a Oncology - [place] [facility], [address] [place] [address] 200 [place] [id number] 0 Phone: () - 09/01 CBC w/ auto diff BA % % 0.0 2.0 0.7 FINAL Annamarie Mcginnisot a Oncology - [place] [facility], [address] [place] [address] 200 [place] [id number] 0 Phone: () - 09/01 CBC w/ auto diff LY # K/uL 0.4 3.6 2.6 FINAL Annamarie Mcginnisot a Oncology - [place] [facility], [address] [place] [address] 200 [place] [id number] 0 Phone: () - 09/01 CBC w/ auto diff MO # K/uL 0.2 1.3 0.8 FINAL Annamarie Mcginnisot a Oncology - [place] [facility], [address] [place] [address] 200 [facility] [place] [id number] 0 Phone: () - 09/01 CBC w/ auto diff EO # K/uL 0.0 0.6 0.4 FINAL Annamarie Mcginnisot a Oncology - [place] [facility], [address] [place] [address] 200 [place] [id number] 0 Phone: () - 09/01 CBC w/ auto diff BA # K/uL 0.0 0.2 0.1 FINAL Annamarie Mcginnisot a Oncology - [place] [facility], [address] [place] [address] 200 [place] [id number] 0 Phone: () - 09/01 CBC w/ auto diff NRBC % #/100W BC 0.0 0.2 0.0 FINAL Annamarie Mcginnisot a Oncology - [place] [facility], [address] [place] [address] 200 [place] [id number] 0 Phone: () - 09/01 CBC w/ auto diff RBC M/uL 3.9 5.1 3.23 Low FINAL Annamarie Mcginnisot a Oncology - [place] [facility], [address] [place] [address] [address] [place] [id number] 0 Phone: () - 09/01 CBC w/ auto diff HCT % 35.0 48.0 33.1 Low FINAL Annamarie noel Oncology - [facility], [address] [place] [id number] 0 Phone: () - 09/01 CBC w/ auto diff MCV fL 80.0 104.0 102.5 FINAL Annamarie noel Oncology - [facility], [address] [place] [id number] 0 Phone: () - 09/01 CBC w/ auto diff MCH pg 26.0 35.0 35.0 FINAL Annamarie noel Oncology - [facility], [address] [place] [id number] 0 Phone: () - 09/01 CBC w/ auto diff MCHC g/dL 30.0 35.0 34.1 FINAL Annamarie noel Oncology [facility], [facility] [address] [place] [id number] 0 Phone: () - 09/01 CBC w/ auto diff MPV fL 9.5 13.4 9.3 Low FINAL Annamarie noel Oncology - [facility], [address] [place] [id number] 0 Phone: () - 09/01 CBC w/ auto diff RDW % 11.4 16.1 12.40 FINAL Annamarie noel Oncology [facility], [address] [place] [id number] 0 Phone: () - 09/01 TSH panel TSH uIU/ml 0.32 5.0 1.23 Test performed at [facility] on a [employer] ay Analyzer that uses an immunoenz ymometric sandwich assay for analysis. Patient testing should not be performed using multiple hallie osto due to analytica l variation seen between test hallie soto. FINAL Annamarie Mcginnis bert Oncology - [place], [address] [facility] [address] [place] [id number] 0 Phone: () - 09/01 CA 125 panel CA 125 UNITS/ ML 0.0 34.0 6.20 Test performed at [facility] on a [employer] 2000 Immunoass ay Analyzer that uses an immunoenz ymometric sandwich assay for analysis. Patient testing should not be performed using multiple hallie soto due to analytica l variation seen between test hallie soto. FINAL Annamarie rivero [facility] a Oncology - [place], [address] [place] [address] [address] [facility] [id number] 0 Phone: () - 09/01 CMP Sodiu [...] ated ml/min /1.73m 2 >60 FINAL [facility]01 CMP Album in g/dL 3.2 [...] GOT IU/L 2.0 40.0 27 Test Performed by:[employer] [facility] [address] - [facility], [place] [address]Qebh e [phone] FINAL Annamarie Zamorano ast 09/01 [facility] other lab See kilnman d 09/29 CBC w/ auto diff WBC K/uL 3.0 8.9 8.3 FINAL Annamarie Mcginnisot a Oncology - [place] [facility], [address] [place] [address] [address] [place] [id number] 0 Phone: () - 09/29 CBC w/ auto diff HGB g/dL 11.3 15.2 12.2 FINAL Annamarie Mcginnisot bert On[facility] - [place] [facility], [address] [place] [address] [address] [place] [id number] 0 Phone: () - 09/29 CBC w/ auto diff PLT K/uL 113.0 364.0 187 FINAL Annamarie Mcginnisot a Oncology - [place] [facility], [address] [place] [address] [address] [place] [id number] 0 Phone: () - 09/29 CBC w/ auto diff Avtar # (ANC) K/uL 1.6 6.6 4.7 FINAL Annamarie Mcginnisot a Oncology - [place] [facility], [address] [place] [address] [address] [place] [id number] 0 Phone: () - 09/29 CBC w/ auto diff Avtar % % 43.0 74.0 56.3 FINAL Annamarie Mcginnisot a Oncology - [place] [facility], [address] [place] [address] [address] [place] [id number] 0 Phone: () - 09/29 CBC w/ auto diff IG % % 0.0 0.5 0.6 High FINAL Annamarie noel Oncology - [place] [facility], [address] 200 [facility] [id number] 0 Phone: () - 09/29 CBC w/ auto diff IG # K/uL 0.0 0.03 0.05 High FINAL Annamarie Mcginnisot a Oncology - [place] [facility], [address] [place] [address] 200 [facility] [id number] 0 Phone: () - 09/29 CBC w/ auto diff LY % % 14.0 41.0 29.3 FINAL Annamarie Peters a Oncology - [place] [facility], [address] [place] [address] 200 [facility] [id number] 0 Phone: () - 09/29 CBC w/ auto diff MO % % 6.0 15.0 8.2 FINAL Annamarie Mcginnisot a Oncology - [place] [facility], [address] [place] [address] 200 [facility] [id number] 0 Phone: () - 09/29 CBC w/ auto diff EO % % 0.0 7.0 4.9 FINAL Annamarie Mcginnisot a Oncology - [place] [facility], [address] [place] [address] 200 [facility] [id number] 0 Phone: () - 09/29 CBC w/ auto diff BA % % 0.0 2.0 0.7 FINAL Annamarie Mcginnisot a Oncology - [place] [facility], [address] [place] [address] 200 [facility] [id number] 0 Phone: () - 09/29 CBC w/ auto diff LY # K/uL 0.4 3.6 2.4 FINAL Annamarierenny Mgcinnisot a Oncology - [place] [facility], [address] [place] [address] 200 [facility] [id number] 0 Phone: () - 09/29 CBC w/ auto diff MO # K/uL 0.2 1.3 0.7 FINAL Annamarie Mcginnisot a Oncology - [place] [facility], [facility] [address] [facility] [id number] 0 Phone: () - 09/29 CBC w/ auto diff EO # K/uL 0.0 0.6 0.4 FINAL Annamarie Mcginnisot bert Oncology - [place] [facility], [facility] [address] [place] [id number] 0 Phone: () - 09/29 CBC w/ auto diff BA # K/uL 0.0 0.2 0.1 FINAL Annamarie Mcginnisot bert Oncology - [place] [facility], [facility] [address] [place] [id number] 0 Phone: () - 09/29 CBC w/ auto diff NRBC % #/100W BC 0.0 0.2 0.0 FINAL Annamarie Mcginnisot a Oncology - [place] [facility], [address] [place] [address] 200 [place] [id number] 0 Phone: () - 09/29 CBC w/ auto diff RBC M/uL 3.9 5.1 3.53 Low FINAL Annamarie Mcginnisot a Oncology - [place] [facility], [address] [place] [address] 200 [place] [id number] 0 Phone: () - 09/29 CBC w/ auto diff HCT % 35.0 48.0 35.9 FINAL Annamarie Mcginnisot bert Oncology - [place] [facility], [address] [place] [address] 200 [place] [id number] 0 Phone: () - 09/29 CBC w/ auto diff MCV fL 80.0 104.0 101.7 FINAL Annamarie Mcginnisot bert Oncology - [place] [facility], [address] [place] [address] 200 [place] [id number] 0 Phone: () - 09/29 CBC w/ auto diff MCH pg 26.0 35.0 34.6 FINAL Annamarie Mcginnisot a Oncology - [place] [facility], [address] [place] [address] [address] [place] [id number] 0 Phone: () - 09/29 CBC w/ auto diff MCHC g/dL 30.0 35.0 34.0 FINAL Annamarie cMginnisot a Oncology - [place] [facility], [facility] [address] [place] [id number] 0 Phone: () - 09/29 CBC w/ auto diff MPV fL 9.5 13.4 9.6 FINAL Annamarie Zamorano [place] [facility] [place], [address] [place] [address] [address] [place] [id number] 0 Phone: () - 09/29 CBC w/ auto diff RDW % 11.4 16.1 12.20 FINAL Annamarie rivero [place] [facility] [place], [address] [place] [address] [address] [place] [id number] 0 Phone: () - 09/29 CMP Sodiu m mmol/L 135.0 145.0 133 Low FINAL Annamarierenny Smith ast 09/29 CMP Potas sium mmol/L 3.5 5.0 4.4 FINAL [facility] CMP Chlor sathish mmol/L 98.0 110.0 97 Low FINAL [facility] ast 09/29 CMP CO2 mmol/L 21.0 31.0 27 [facility] CMP Anion gap, mmol/ L 5.0 18.0 9.0% FINAL [facility] 09/29 CMP Gluco se mg/dL 65.0 100.0 87 FINAL [facility] 09/29 CMP Calci um mg/dL 8.5 10.5 9.6 FINAL [facility] 09/[facility] CMP BUN mg/dL 8.0 25.0 16 FINAL [facility] 09/29 CMP Creat inine mg/dL 0.57 1.11 0.97 FINAL [facility] 09/[facility] CMP BUN/C reati nine ratio 10.0 20.0 16.0% FINAL [place] [facility] 09/29 CMP GFR Afric an Ameri can, estim ated ml/min /1.73m 2 >60 FINAL [facility] 09/29 CMP GFR non-A frica n Ameri can, estim ated ml/min /1.73m 2 57 Low FINAL [facility] 09/29 CMP Album in g/dL 3.2 4.6 4.3 FINAL [facility] 09/29 CMP Total prote in g/dL 6.0 [...] GOT IU/L 2.0 40.0 22 Test Performed by:[employer] [facility] [address] [facility] [place] [address]Fwkw e : FINAL Annamarie Zamorano ast 09/29 Misc other lab See kilnman d 10/27 CBC w/ auto diff WBC K/uL 3.0 8.9 8.8 FINAL Annam[place]orano [place] [facility], [address] [place] [id number] 0 Phone: () - 10/27 CBC w/ auto diff HGB g/dL 11.3 15.2 12.2 FINAL Annamarie rivero [place] [facility] [place] [facility], [address] [place] [id number] 0 Phone: () - 10/27 CBC w/ auto diff PLT K/uL 113.0 364.0 178 FINAL Annamarie Zamorano ast [place] [facility] [place] [facility], [address] [place] [id number] 0 Phone: () - 10/27 CBC w/ auto diff Avtar # (ANC) K/uL 1.6 6.6 5.0 FINAL Annamarie rivero [place] [facility] [place] [facility], [address] [place] [id number] 0 Phone: () - 10/27 CBC w/ auto diff Avtar % % 43.0 74.0 56.8 FINAL Annamarie noel On[facility] - [place], [address] [place] [address] [address] [place] [id number] 0 Phone: () - 10/27 CBC w/ auto diff IG % % 0.0 0.5 0.5 FINAL Annamarie noel Oncology - [place], [address] [place] [address] [address] [place] [id number] 0 Phone: () - 10/27 CBC w/ auto diff IG # K/uL 0.0 0.03 0.04 High FINAL Annamarie noel On[facility] - [place], [address] [place] [address] [address] [place] [id number] 0 Phone: () - 10/27 CBC w/ auto diff LY % % 14.0 41.0 29.5 FINAL Annamarie noel On[facility] - [place], [address] [place] [address] [address] [place] [id number] 0 Phone: () - 10/27 CBC w/ auto diff MO % % 6.0 15.0 8.0 FINAL Annamarie noel [facility] - [place], [address] [place] [address] [address] [place] [id number] 0 Phone: () - 10/27 CBC w/ auto diff EO % % 0.0 7.0 4.6 FINAL Annamarie noel On[facility] - [place], [address] [place] [address] [address] [place] [id number] 0 Phone: () - 10/27 CBC w/ auto diff BA % % 0.0 2.0 0.6 FINAL Annamarie noel On[facility] - [place], [address] [place] [address] [address] [place] [id number] 0 Phone: () - 10/27 CBC w/ auto diff LY # K/uL 0.4 3.6 2.6 FINAL Annamarie noel On[facility] - [place], [address] [place] [address] [address] [place] [id number] 0 Phone: () - 10/27 CBC w/ auto diff MO # K/uL 0.2 1.3 0.7 FINAL Annamarie noel Oncology - [place], [address] [place] [id number] 0 Phone: () - 10/27 CBC w/ auto diff EO # K/uL 0.0 0.6 0.4 FINAL Annamarie noel Oncology - [place] [facility], [address] [place] [id number] 0 Phone: () - 10/27 CBC w/ auto diff BA # K/uL 0.0 0.2 0.1 FINAL Annamarie noel Oncology - [place] [facility], [address] [place] [id number] 0 Phone: () - 10/27 CBC w/ auto diff NRBC % #/100W BC 0.0 0.2 0.0 FINAL Annamarie noel Oncology - [place] [facility], [address] [place] [address] 200 [place] [id number] 0 Phone: () - 10/27 CBC w/ auto diff RBC M/uL 3.9 5.1 3.55 Low FINAL [facility], [address] [place] [address] 200 [place] [id number] 0 Phone: () - 10/27 CBC w/ auto diff HCT % 35.0 48.0 35.9 FINAL [facility], [address] [place] [address] 200 [place] [id number] 0 Phone: () - 10/27 CBC w/ auto diff MCV fL 80.0 104.0 101.1 FINAL Annamarie noel Oncology - [place] [facility], [address] [place] [id number] 0 Phone: () - 10/27 CBC w/ auto diff MCH pg 26.0 35.0 34.4 FINAL [facility], [facility] [address] [place] [id number] 0 Phone: () - 10/27 CBC w/ auto diff MCHC g/dL 30.0 35.0 34.0 FINAL [facility]arie [facility], [address] [place] [id number] 0 Phone: () - 10/27 CBC w/ auto diff MPV fL 9.5 13.4 9.2 Low FINAL Annamarie noel Oncology [facility], [address] [place] [address] 200 [facility] [id number] Phone: () - 10/27 CBC w/ auto diff RDW % 11.4 16.1 12.10 FINAL Annamarie noel Oncology [facility], [address] [place] [address] 200 [facility] [id number] 0 Phone: () - 10/27 TSH panel TSH uIU/ml 0.32 5.0 1.80 Test performed at [facility] on a [employer] computer 2000 Immunoass ay Analyzer that uses an immunoenz ymometric sandwich assay for analysis. Patient testing should not be performed using multiple methodolo gies due to analytica l variation seen between test methodolo gies. FINAL Annamarie noel Oncology [facility], [address] [place] [address] [id number] 0 Phone: () - 10/27 CA 125 panel CA 125 UNITS/ ML 0.0 34.0 6.50 Test performed at [facility] on a [employer] computer 2000 Immunoass ay Analyzer that uses an immunoenz ymometric sandwich assay for analysis. Patient testing should not be performed using multiple methodolo gies due to analytica l variation seen between test methodolo gies. FINAL Annamarie noel Oncology [facility], [address] [place] [address] [phone] Phone: () - 10/27 CMP Sodiu m mmol/L 135.0 145.0 133 Low FINAL Annamarie Zamorano ast 10/27 CMP Potas sium mmol/L 3.5 5.0 4.3 FINAL Annamarie Zamorano ast 10/27 CMP Chlor sathish mmol/L [...] GOT IU/L 2.0 40.0 29 Test Performed by:[facility] [address] - [facility] [place] [address]Qalv e [phone] FINAL Annamarie Smith ast 10/27 [facility] other lab See kilnman d 10/27 [place] other lab See kilnman d 11/15 Mis other lab See kilnman d 11/23 TSH panel TSH uIU/ml 0.32 5.0 1.83 Test performed at [facility] on a [employer] computer 2000 Immunoass ay Analyzer that uses an immunoenz ymometric sandwich assay for analysis. Patient testing should not be performed using multiple methodolo gies due to analytica l variation seen between test methodolo gies. FINAL Annamarie noel [facility], [address] [place] [address] [phone] Phone: () - 11/23 CA 125 panel CA 125 UNITS/ ML 0.0 34.0 7.50 Test performed at [facility] on a [employer] computer 2000 Immunoass ay Analyzer that uses an immunoenz ymometric sandwich assay for analysis. Patient testing should not be performed using multiple methodolo gies due to analytica l variation seen between test methodolo gies. FINAL Annamarie noel [facility], [address] [place] [address] [id number] [phone] Phone: () - 11/23 CBC w/ auto diff WBC K/uL 3.0 8.9 8.3 FINAL Annamarie noel [facility], [address] [place] [address] [address] [place] [id number] 0 Phone: () - 11/23 CBC w/ auto diff HGB g/dL 11.3 15.2 12.4 FINAL Annamarie noel Oncology [facility], [address] [place] [address] [address] [place] [id number] 0 Phone: () - 11/23 CBC w/ auto diff PLT K/uL 113.0 364.0 187 FINAL Annamarie noel Oncology [facility], [facility] [address] [place] [id number] 0 Phone: () - 11/23 CBC w/ auto diff Avtar # (ANC) K/uL 1.6 6.6 4.4 FINAL Annamarie noel Oncology [facility], [facility] [address] [place] [id number] 0 Phone: () - 11/23 CBC w/ auto diff Avtar % % 43.0 74.0 53.4 FINAL Annamarie noel Oncology [facility], [facility] [address] 200 [place] [id number] 0 Phone: () - 11/23 CBC w/ auto diff IG % % 0.0 0.5 0.8 High FINAL Annamarie noel Oncology - [place], [address] [place] [address] 200 [place] [id number] 0 Phone: () - 11/23 CBC w/ auto diff IG # K/uL 0.0 0.03 0.07 High FINAL Annamarie noel Oncology - [place], [address] 200 [place] [id number] 0 Phone: () - 11/23 CBC w/ auto diff LY % % 14.0 41.0 31.7 FINAL Annamarie noel Oncology - [place] [facility], [address] [place] [address] 200 [place] [id number] 0 Phone: () - 11/23 CBC w/ auto diff MO % % 6.0 15.0 8.5 FINAL Annamarie noel Oncology - [place], [address] [place] [address] 200 [facility] [place] [id number] 0 Phone: () - 11/23 CBC w/ auto diff EO % % 0.0 7.0 4.8 FINAL Annamarie noel Oncology - [place] [facility], [address] [place] [address] 200 [facility] [place] [id number] 0 Phone: () - 11/23 CBC w/ auto diff BA % % 0.0 2.0 0.8 FINAL Annamarie noel Oncology - [place], [address] [place] [address] 200 [place] [id number] 0 Phone: () - 11/23 CBC w/ auto diff LY # K/uL 0.4 3.6 2.6 FINAL Annamarie noel Oncology - [place] [facility], [address] [place] [address] 200 [place] [id number] 0 Phone: () - 11/23 CBC w/ auto diff MO # K/uL 0.2 1.3 0.7 FINAL Annamarie noel Oncology - [place] [facility], [address] [place] [address] 200 [facility] [place] [id number] 0 Phone: () - 11/23 CBC w/ auto diff EO # K/uL 0.0 0.6 0.4 FINAL Annamarie noel Oncology - [place] [facility], [address] 200 [place] [id number] 0 Phone: () - 11/23 CBC w/ auto diff BA # K/uL 0.0 0.2 0.1 FINAL Annamarie noel Oncology - [place] [facility], [address] [place] [address] 200 [place] [id number] 0 Phone: () - 11/23 CBC w/ auto diff NRBC % #/100W BC 0.0 0.2 0.0 FINAL Annamarie noel Oncology - [place] [facility], [address] [place] [address] 200 [facility] [place] [id number] 0 Phone: () - 11/23 CBC w/ auto diff RBC M/uL 3.9 5.1 3.61 Low FINAL Annamarie noel Oncology - [place] [facility], [address] [place] [address] 200 [facility] [place] [id number] 0 Phone: () - 11/23 CBC w/ auto diff HCT % 35.0 48.0 36.4 FINAL Annamarie noel Oncology - [place] [facility], [address] [place] [address] 200 [facility] [place] [id number] 0 Phone: () - 11/23 CBC w/ auto diff MCV fL 80.0 104.0 100.8 FINAL Annamarie noel Oncology - [place] [facility], [address] [place] [address] 200 [facility] [place] [id number] 0 Phone: () - 11/23 CBC w/ auto diff MCH pg 26.0 35.0 34.3 FINAL Annamarie noel Oncology - [place] [facility], [address] [place] [address] 200 [place] [id number] 0 Phone: () - 11/23 CBC w/ auto diff MCHC g/dL 30.0 35.0 34.1 FINAL Annamarie noel Oncology - [place] [facility], [address] [place] [address] 200 [facility] [place] [id number] 0 Phone: () - 11/23 CBC w/ auto diff MPV fL 9.5 13.4 9.3 Low FINAL Annamarie rivero [place] [facility] [place], [address] [place] [address] [address] [place] [id number] 0 Phone: () - 11/23 CBC w/ auto diff RDW % 11.4 16.1 12.50 FINAL Annamarie Mcginnisot a Oncology - [place], [address] [place] [address] [address] [place] [id number] 0 Phone: () - 11/23 CMP Sodiu m mmol/L 135.0 145.0 132 Low FINAL Annamarie Smith ast 11/23 CMP Potas sium mmol/L 3.5 5.0 4.5 FINAL [facility]23 CMP Chlor sathish mmol/L 98.0 110.0 96 Low FINAL [facility]ny [facility] 11/23 CMP CO2 mmol/L 21.0 31.0 25 FINAL [facility]arie [facility] 11/23 CMP Anion gap, mmol/ L 5.0 18.0 11.0% FINAL [facility] 11/23 CMP Gluco se mg/dL 65.0 100.0 90 FINAL [facility] 11/23 CMP Calci um mg/dL 8.5 10.5 9.0 FINAL [facility]namarie [facility] 11/23 CMP BUN mg/dL 8.0 25.0 15 FINAL [facility]namarie [facility] 11/23 CMP Creat inine mg/dL 0.57 1.11 0.87 FINAL [facility] 11/[facility] CMP BUN/C reati nine ratio 10.0 20.0 17.0% FINAL [facility]namarie [facility] 11/23 CMP GFR Afric an Ameri can, estim ated ml/min /1.73m 2 >60 FINAL Annamarie [facility] 11/23 CMP GFR non-A frica n Ameri can, estim ated ml/min /1.73m 2 >60 FINAL [facility] ast 11/23 CMP Album in g/dL 3.2 4.6 4.1 FINAL Annamarie [facility] 11/23 CMP Total prote in g/dL [...] GOT IU/L 2.0 40.0 37 Test Performed by:[facility] [address] - [facility], [place] [address]Qvux e : FINAL Annamarie Zamorano ast 11/23 [facility] other lab See kilnman d 11/23 [facility] other lab See kilnman d 12/21 TSH panel TSH uIU/ml 0.32 5.0 1.49 Test performed at [facility] on a [employer] computer 2000 Immunoass ay Analyzer that uses an immunoenz ymometric sandwich assay for analysis. Patient testing should not be performed using multiple methodolo ginorris due to analytica l variation seen between test methoddanelle soto. FINAL Tamanna Peters Oncology [facility], [address] [facility] [address] [facility] [id number] Phone: () - 12/21 CBC w/ auto diff WBC K/uL 3.0 8.9 8.3 FINAL Tamanna noel [facility], [address] [place] [id number] 0 Phone: () - 12/21 CBC w/ auto diff HGB g/dL 11.3 15.2 12.1 FINAL Tamanna noel [facility], [address] [place] [id number] 0 Phone: () - 12/21 CBC w/ auto diff PLT K/uL 113.0 364.0 160 FINAL Tamanna noel Oncology - [place], [address] [place] [address] [address] [place] [id number] 0 Phone: () - 12/21 CBC w/ auto diff Avtar # (ANC) K/uL 1.6 6.6 4.4 FINAL Tmaanna noel Oncology - [place], [address] [place] [address] [address] [place] [id number] 0 Phone: () - 12/21 CBC w/ auto diff Avtar % % 43.0 74.0 52.5 FINAL Tamanna noel Oncology - [place], [address] [place] [address] [address] [place] [id number] 0 Phone: () - 12/21 CBC w/ auto diff IG % % 0.0 0.5 0.6 High FINAL Tamanna noel Oncology - [place], [address] [place] [address] [address] [place] [id number] 0 Phone: () - 12/21 CBC w/ auto diff IG # K/uL 0.0 0.03 0.05 High FINAL Tamanna noel Oncology - [place], [address] [place] [address] [address] [place] [id number] 0 Phone: () - 12/21 CBC w/ auto diff LY % % 14.0 41.0 32.3 FINAL Tamanna noel Oncology - [place], [address] [place] [address] [address] [place] [id number] 0 Phone: () - 12/21 CBC w/ auto diff MO % % 6.0 15.0 7.9 FINAL Tamanna noel Oncology - [place], [address] [place] [address] [address] [place] [id number] 0 Phone: () - 12/21 CBC w/ auto diff EO % % 0.0 7.0 5.9 FINAL Tamanna noel Oncology - [place], [address] [place] [address] [address] [place] [id number] 0 Phone: () - 12/21 CBC w/ auto diff BA % % 0.0 2.0 0.8 FINAL Tamanna noel Oncology - [place], [address] [place] [address] [address] [place] [id number] 0 Phone: () - 12/21 CBC w/ auto diff LY # K/uL 0.4 3.6 2.7 FINAL Tamanna noel Oncology - [place], [address] [place] [address] 200 [place] [id number] 0 Phone: () - 12/21 CBC w/ auto diff MO # K/uL 0.2 1.3 0.7 FINAL Tamanna noel Oncology - [place], [address] [place] [address] 200 [place] [id number] 0 Phone: () - 12/21 CBC w/ auto diff EO # K/uL 0.0 0.6 0.5 FINAL Tamanna noel Oncology - [place], [address] [place] [address] 200 [place] [id number] 0 Phone: () - 12/21 CBC w/ auto diff BA # K/uL 0.0 0.2 0.1 FINAL Tamanna noel Oncology - [place], [address] [place] [address] 200 [place] [id number] 0 Phone: () - 12/21 CBC w/ auto diff NRBC % #/100W BC 0.0 0.2 0.0 FINAL Tamanna noel Oncology - [place], [address] [place] [address] 200 [place] [id number] 0 Phone: () - 12/21 CBC w/ auto diff RBC M/uL 3.9 5.1 3.49 Low FINAL Tamanna noel Oncology - [place], [address] [place] [address] 200 [place] [id number] 0 Phone: () - 12/21 CBC w/ auto diff HCT % 35.0 48.0 35.2 FINAL Tamanna noel Oncology - [place], [address] [place] [address] 200 [place] [id number] 0 Phone: () - 12/21 CBC w/ auto diff MCV fL 80.0 104.0 100.9 FINAL Tamanna noel Oncology - [place], [address] [place] [address] 200 [place] [id number] 0 Phone: () - 12/21 CBC w/ auto diff MCH pg 26.0 35.0 34.7 FINAL [facility], [address] [facility] [place] [id number] 0 Phone: () - 12/21 CBC w/ auto diff MCHC g/dL 30.0 35.0 34.4 FINAL Tamanna noel [facility], [address] [place] [address] [address] [facility] [place] [id number] 0 Phone: () - 12/21 CBC w/ auto diff MPV fL 9.5 13.4 9.5 FINAL Tamanna noel Oncology - [facility], [address] [place] [address] [address] [facility] [place] [id number] 0 Phone: () - 12/21 CBC w/ auto diff RDW % 11.4 16.1 12.80 FINAL Tamanna noel Oncology - [facility], [address] [place] [address] [address] [facility] [place] [id number] 0 Phone: () - 12/21 CA 125 panel CA 125 UNITS/ ML 0.0 34.0 7.70 Test performed at [facility] on a [employer] computer 2000 Immunoass ay Analyzer that uses an immunoenz ymometric sandwich assay for analysis. Patient testing should not be performed using multiple hallie soto due to analytica l variation seen between test hallie soto. FINAL Tamanna noel Oncology - [place], [address] [facility] 100 [facility] [id number] 0 Phone: () - 12/21 CMP Sodiu [...] GOT IU/L 2.0 40.0 40 Test Performed by:[facility] [facility] [address] - [facility] [place] [address]Uscg e : FINAL Tamanna Rolon 12/21 Misc other lab See kilnman d 01/18 CMP Sodiu m mmol/L 135.0 145.0 135 FINAL Tamanna Rolon 01/18 CMP Potas sium mmol/L 3.5 5.0 4.2 FINAL Tamanna Rolon 01/18 CMP Chlor sathish mmol/L 98.0 110.0 99 FINAL [facility] 01/18 CMP CO2 mmol/L 21.0 31.0 28 FINAL [facility] 01/18 CMP Anion gap, mmol/ L 5.0 18.0 8.0% FINAL [facility] 01/18 CMP Gluco se mg/dL 65.0 100.0 86 FINAL Tamanna Gonzales 01/18 CMP Calci um mg/dL 8.5 10.5 9.6 FINAL [facility] 01/18 CMP BUN mg/dL 8.0 25.0 17 FINAL [facility] 01/18 CMP Creat inine mg/dL 0.57 1.11 0.97 FINAL [facility] 01/18 CMP BUN/C reati nine ratio 10.0 20.0 18.0% FINAL Tamanna Kenny 01/18 CMP GFR Afric an Ameri can, estim ated ml/min /1.73m 2 >60 FINAL Tamanna Gonzales 01/18 CMP GFR non-A frica n Ameri can, estim ated ml/min /1.73m 2 57 Low FINAL [facility] 01/18 CMP Album in g/dL 3.2 4.6 4.2 Tamannany 01/18 CMP Total prote in g/dL 6.0 8.0 7.0 Tamanna Gonzales 01/18 CMP Globu samreen g/dL 2.0 3.7 2.8 [facility] 01/18 CMP A/G ratio 1.0 2.0 1.5% FINAL [facility] 01/18 CMP Bilir ubin, total mg/dL 0.2 1.2 0.4 FINAL [facility] 01/18 CMP Alkal ine phosp hatas e IU/L 50.0 136.0 70 [facility] 01/18 CMP ALT/S GPT IU/L 8.0 45.0 19 [facility] 01/18 CMP AST/S GOT IU/L 2.0 40.0 34 Test Performed by:[facility] [address] - [place], [place] [address]Nchi e [phone] FINAL Tamanna Rolon 01/18 CA 125 panel CA 125 UNITS/ ML 0.0 34.0 9.40 Test performed at [facility] on a [employer] Immunoass ay Analyzer that uses an immunoenz ymometric sandwich assay for analysis. Patient testing should not be performed using multiple methoddanelle soto due to analytica l variation seen between test methoddanelle soto. FINAL Tamanna noel Oncology [facility], [address] [facility] [address] [facility] [id number] 0 Phone: () - 01/18 CBC w/ auto diff WBC K/uL 3.0 8.9 8.1 FINAL Tamanna noel Oncology [facility], [address] [place] [address] [address] [facility] MD [id number] 0 Phone: () - 01/18 CBC w/ auto diff HGB g/dL 11.3 15.2 11.7 FINAL Tamanna noel Oncology - [facility], [address] [place] [address] [address] [facility] MD [id number] 0 Phone: () - 01/18 CBC w/ auto diff PLT K/uL 113.0 364.0 156 FINAL Tamanna noel Oncology - [facility], [address] [place] [address] [address] [facility] MD [id number] 0 Phone: () - 01/18 CBC w/ auto diff Avtar # (ANC) K/uL 1.6 6.6 4.3 FINAL Tmaanna noel Oncology - [facility], [address] [place] [address] [address] [facility] MD [id number] 0 Phone: () - 01/18 CBC w/ auto diff Avtar % % 43.0 74.0 52.3 FINAL Tamanna noel Oncology - [facility], [address] [place] [address] [address] [facility] [place] [id number] 0 Phone: () - 01/18 CBC w/ auto diff IG % % 0.0 0.5 0.5 FINAL Tamanna noel Oncology [facility], [address] [place] [address] [address] [facility] MD [id number] 0 Phone: () - 01/18 CBC w/ auto diff IG # K/uL 0.0 0.03 0.04 High FINAL Tamanna noel Oncology - [place], [address] [place] [id number] 0 Phone: () - 01/18 CBC w/ auto diff LY % % 14.0 41.0 31.7 FINAL Tamanna noel Oncology - [place], [address] [place] [address] [address] [place] [id number] 0 Phone: () - 01/18 CBC w/ auto diff MO % % 6.0 15.0 10.4 FINAL Tamanna noel Oncology - [place], [address] [place] [id number] 0 Phone: () - 01/18 CBC w/ auto diff EO % % 0.0 7.0 4.5 FINAL Tamanna noel Oncology - [place], [address] [place] [id number] 0 Phone: () - 01/18 CBC w/ auto diff BA % % 0.0 2.0 0.6 FINAL Tamanna noel Oncology - [place], [address] [place] [id number] 0 Phone: () - 01/18 CBC w/ auto diff LY # K/uL 0.4 3.6 2.6 FINAL Tamanna noel Oncology - [place], [address] [place] [id number] 0 Phone: () - 01/18 CBC w/ auto diff MO # K/uL 0.2 1.3 0.9 FINAL Tamanna noel Oncology - [place], [address] [place] [id number] 0 Phone: () - 01/18 CBC w/ auto diff EO # K/uL 0.0 0.6 0.4 FINAL Tamanna noel Oncology - [place], [address] [place] [address] [address] [place] [id number] 0 Phone: () - 01/18 CBC w/ auto diff BA # K/uL 0.0 0.2 0.1 FINAL Tamanna noel Oncology - [place], [address] [place] [address] [address] [place] [id number] 0 Phone: () - 01/18 CBC w/ auto diff NRBC % #/100W BC 0.0 0.2 0.0 FINAL Tamanna noel Oncology - [place], [address] [place] [address] [address] [place] [id number] 0 Phone: () - 01/18 CBC w/ auto diff RBC M/uL 3.9 5.1 3.36 Low FINAL Tamanna noel Oncology - [place], [address] [place] [address] [address] [place] [id number] 0 Phone: () - 01/18 CBC w/ auto diff HCT % 35.0 48.0 34.2 Low FINAL Tamanna noel Oncology - [place], [address] [place] [id number] 0 Phone: () - 01/18 CBC w/ auto diff MCV fL 80.0 104.0 101.8 FINAL Tamanna noel Oncology - [place], [address] [place] [id number] 0 Phone: () - 01/18 CBC w/ auto diff MCH pg 26.0 35.0 34.8 FINAL Tamanna noel Oncology - [place], [address] [place] [address] [address] [place] [id number] 0 Phone: () - 01/18 CBC w/ auto diff MCHC g/dL 30.0 35.0 34.2 FINAL Tamanna noel Oncology - [place], [address] [place] [address] [address] [place] [id number] 0 Phone: () - 01/18 CBC w/ auto diff MPV fL 9.5 13.4 9.7 FINAL Tamanna noel Oncology - [place], [address] [place] [address] [address] [place] [id number] 0 Phone: () - 01/18 CBC w/ auto diff RDW % 11.4 16.1 13.20 FINAL Tamanna noel Oncology - [place], [address] [place] [place] [address] [facility] [id number] 0 Phone: () - 01/18 TSH panel TSH uIU/ml 0.32 5.0 1.55 Test performed at [facility] on a [employer] computer 2000 Immunoass ay Analyzer that uses an immunoenz ymometric sandwich assay for analysis. Patient testing should not be performed using multiple methoddanelle soto due to analytica l variation seen between test methoddanelle soto. FINAL Tamanna Rolon [facility] [place], [address] [place] [address] [address] [facility] [id number] 0 Phone: () - 01/18 [facility] other lab See kilnman d 02/15 CMP Creat inine mg/dL 0.57 [...] GOT IU/L 2.0 40.0 31 Test Performed by:[facility] [address] [facility] [place] [address]Reyp e [phone] FINAL Annamarie Zamorano ast 02/15 CMP Sodiu [...] Zamorano ast [place] [facility] [place] [facility], [address] [place] [address] 200 [place] [id number] 0 Phone: () - 02/15 CBC w/ auto diff HGB g/dL 11.3 15.2 11.8 FINAL Annamarie rivero [place] [facility] [place] [facility], [address] [place] [address] [address] [place] [id number] 0 Phone: () - 02/15 CBC w/ auto diff PLT K/uL 113.0 364.0 165 FINAL Annamarie rivero [place] [facility] [place] [facility], [address] [place] [address] [address] [place] [id number] 0 Phone: () - 02/15 CBC w/ auto diff Avtar # (ANC) K/uL 1.6 6.6 5.3 FINAL Annamarie Zamorano ast [place] [facility] [place] [facility], [address] [place] [address] [address] [place] [id number] 0 Phone: () - 02/15 CBC w/ auto diff Avtar % % 43.0 74.0 57.3 FINAL Annamarie Mcginnisot a [facility] - [place], [address] [place] [address] [address] [place] [id number] 0 Phone: () - 02/15 CBC w/ auto diff IG % % 0.0 0.5 0.6 High FINAL Annamarie Mcginnisot a On[facility] - [place], [address] [place] [address] [address] [place] [id number] 0 Phone: () - 02/15 CBC w/ auto diff IG # K/uL 0.0 0.03 0.06 High FINAL Annamarie Mcginnisot a On[facility] - [place], [address] [place] [address] [address] [place] [id number] 0 Phone: () - 02/15 CBC w/ auto diff LY % % 14.0 41.0 27.4 FINAL Annamarie Mcginnisot a On[facility] - [place], [address] [place] [address] [address] [place] [id number] 0 Phone: () - 02/15 CBC w/ auto diff MO % % 6.0 15.0 9.1 FINAL Annamarie Mcginnisot a On[facility] - [place], [address] [place] [address] [address] [place] [id number] 0 Phone: () - 02/15 CBC w/ auto diff EO % % 0.0 7.0 5.0 FINAL Annamarie Mcginnisot a On[facility] - [place], [address] [place] [address] [address] [place] [id number] 0 Phone: () - 02/15 CBC w/ auto diff BA % % 0.0 2.0 0.6 FINAL Annamarie Mcginnisot a Oncology - [place], [address] [place] [address] [address] [place] [id number] 0 Phone: () - 02/15 CBC w/ auto diff LY # K/uL 0.4 3.6 2.5 FINAL Annamarie Mcginnisot a On[facility] - [place], [address] [place] [address] [address] [place] [id number] 0 Phone: () - 02/15 CBC w/ auto diff MO # K/uL 0.2 1.3 0.8 FINAL Annamarie Mcginnisot bert [facility] - [place] [facility], [address] [place] [address] [address] [place] [id number] 0 Phone: () - 02/15 CBC w/ auto diff EO # K/uL 0.0 0.6 0.5 FINAL Annamarie noel Oncology - [place] [facility], [address] [place] [address] [address] [place] [id number] 0 Phone: () - 02/15 CBC w/ auto diff BA # K/uL 0.0 0.2 0.1 FINAL Annamarie Mcginnisot a On[facility] - [place] [facility], [address] [place] [address] [address] [place] [id number] Phone: () - 02/15 CBC w/ auto diff NRBC % #/100W BC 0.0 0.2 0.0 FINAL Annamarie Mcginnisot a Oncology - [place] [facility], [address] [place] [address] [address] [place] [id number] 0 Phone: () - 02/15 CBC w/ auto diff RBC M/uL 3.9 5.1 3.41 Low FINAL Annamarie Mcginnisot a Oncology - [place] [facility], [address] [place] [address] [address] [place] [id number] 0 Phone: () - 02/15 CBC w/ auto diff HCT % 35.0 48.0 35.1 FINAL Annamarie Mcginnisot a Oncology - [place] [facility], [address] [place] [address] [address] [place] [id number] 0 Phone: () - 02/15 CBC w/ auto diff MCV fL 80.0 104.0 102.9 FINAL Annamarie Mcginnisot a Oncology - [place] [facility], [address] [place] [address] [address] [place] [id number] 0 Phone: () - 02/15 CBC w/ auto diff MCH pg 26.0 35.0 34.6 FINAL Annamarie Mcginnisot bert Oncology - [place] [facility], [address] [place] [address] [address] [place] [id number] 0 Phone: () - 02/15 CBC w/ auto diff MCHC g/dL 30.0 35.0 33.6 FINAL Annamarie noel [facility], [address] [place] [address] [address] [facility] [id number] 0 Phone: () - 02/15 CBC w/ auto diff MPV fL 9.5 13.4 9.4 Low FINAL Annamarie noel [facility], [address] [place] [address] [address] [facility] [id number] 0 Phone: () - 02/15 CBC w/ auto diff RDW % 11.4 16.1 13.20 FINAL Annamarie noel [facility], [address] [place] [address] [address] [facility] [place] [id number] 0 Phone: () - 02/15 CA 125 panel CA 125 UNITS/ ML 0.0 34.0 8.40 Test performed at [facility] on a [employer] computer 2000 Immunoass ay Analyzer that uses an immunoenz ymometric sandwich assay for analysis. Patient testing should not be performed using multiple methodolo gies due to analytica l variation seen between test methodolo gies. FINAL [facility], [address] [facility] 100 [facility] [id number] 0 Phone: () - 02/15 TSH panel TSH uIU/mL 0.35 4.94 1.72 In Adults, TSH values between 5.00 and 10.00 uIU/ml do notnecess arily indicate the presence of Hypothyro idism.Cor relation with clinical findings such as presence of goiterand /or Thyropero xidase (TPO) Antibody may be helpful. Formore informati on please refer to KYLAH 2004; 291: 228-238.T est Performed by:[facility] [address], [address] - [facility], [place] [address]Lkqp e [phone] FINAL Annamarie rivero 02/15 Misc other lab See kilnman d 03/15 CA 125 panel CA 125 UNITS/ ML 0.0 34.0 8.00 Test performed at [facility] on a [employer] computer 2000 Immunoass ay Analyzer that uses an immunoenz ymometric sandwich assay for analysis. Patient testing should not be performed using multiple methodolo gies due to analytica l variation seen between test methodolo gies. FINAL [facility], [address] [place] [address] 100 [facility] [id number] 0 Phone: () - 03/15 TSH panel TSH uIU/ml 0.32 5.0 3.10 Test performed at [facility] on a [employer] computer 2000 Immunoass ay Analyzer that uses an immunoenz ymometric sandwich assay for analysis. Patient testing should not be performed using multiple methodolo gies due to analytica l variation seen between test methodolo gies. FINAL Annamarie noel Oncology [facility], [address] [place] [address] [address] [facility] [id number] 0 Phone: () - 03/15 CBC w/ auto diff WBC K/uL 3.0 8.9 8.9 FINAL Annamarie noel Oncology - [facility], [address] [place] [address] 200 [facility] [id number] 0 Phone: () - 03/15 CBC w/ auto diff HGB g/dL 11.3 15.2 12.1 FINAL Annamarie noel Oncology - [facility], [address] [place] [address] 200 [facility] MD [id number] 0 Phone: () - 03/15 CBC w/ auto diff PLT K/uL 113.0 364.0 171 FINAL Annamarie noel Oncology - [facility], [address] [place] [address] 200 [facility] MD [id number] 0 Phone: () - 03/15 CBC w/ auto diff Avtar # (ANC) K/uL 1.6 6.6 5.2 FINAL Annamarie noel Oncology - [facility], [address] [place] [address] 200 [place] [id number] 0 Phone: () - 03/15 CBC w/ auto diff Avtar % % 43.0 74.0 58.5 FINAL [facility] no[facility], [address] [place] [address] 200 [place] [id number] 0 Phone: () - 03/15 CBC w/ auto diff IG % % 0.0 0.5 0.7 High FINAL Annamarie Mcginnis bert Oncology - [facility], [address] [place] [address] 200 [facility] [place] [id number] 0 Phone: () - 03/15 CBC w/ auto diff IG # K/uL 0.0 0.03 0.06 High FINAL Annamarierenny Mcginnisot a Oncology - [place] [facility], [address] 200 [facility] [place] [id number] 0 Phone: () - 03/15 CBC w/ auto diff LY % % 14.0 41.0 27.2 FINAL Annamarierenny Mcginnisot a Oncology - [place], [address] 200 [facility] [place] [id number] 0 Phone: () - 03/15 CBC w/ auto diff MO % % 6.0 15.0 7.4 FINAL Annamarierenny Mcginnisot a Oncology - [place] [facility], [address] [place] [address] 200 [facility] MD [id number] 0 Phone: () - 03/15 CBC w/ auto diff EO % % 0.0 7.0 5.5 FINAL Annamarie Mcginnisot a Oncology - [place] [facility], [address] [place] [address] 200 [facility] MD [id number] 0 Phone: () - 03/15 CBC w/ auto diff BA % % 0.0 2.0 0.7 FINAL Annamarie Mcginnisot a Oncology - [place] [facility], [address] [place] [address] 200 [facility] [place] [id number] 0 Phone: () - 03/15 CBC w/ auto diff LY # K/uL 0.4 3.6 2.4 FINAL Annamarie Mcginnisot a Oncology - [place] [facility], [facility] [address] 200 [facility] [place] [id number] 0 Phone: () - 03/15 CBC w/ auto diff MO # K/uL 0.2 1.3 0.7 FINAL [place]ny rivero [place] [facility] [facility], [facility] [address] 200 [place] [id number] 0 Phone: () - 03/15 CBC w/ auto diff EO # K/uL 0.0 0.6 0.5 FINAL Annamarierenny rivero [place] [facility] [facility], [address] 200 [facility] MD [id number] 0 Phone: () - 03/15 CBC w/ auto diff BA # K/uL 0.0 0.2 0.1 FINAL Annamarie Mcginnisot bert Oncology - [place] [facility], [address] [place] [address] [address] [place] [id number] 0 Phone: () - 03/15 CBC w/ auto diff NRBC % #/100W BC 0.0 0.2 0.0 FINAL Annamarie Mcginnisot a Oncology - [place] [facility], [address] [place] [address] [address] [place] [id number] 0 Phone: () - 03/15 CBC w/ auto diff RBC M/uL 3.9 5.1 3.41 Low FINAL Annamarie Mcginnisot a Oncology - [place] [facility], [address] [place] [address] [address] [place] [id number] 0 Phone: () - 03/15 CBC w/ auto diff HCT % 35.0 48.0 35.5 FINAL Annamarie Mcginnisot a Oncology - [place] [facility], [address] [place] [address] [address] [place] [id number] 0 Phone: () - 03/15 CBC w/ auto diff MCV fL 80.0 104.0 104.1 High FINAL Annamarie Mcginnisot a Oncology - [place] [facility], [address] [place] [address] [address] [place] [id number] 0 Phone: () - 03/15 CBC w/ auto diff MCH pg 26.0 35.0 35.5 High FINAL Annamarie Mcginnisot bert Oncology - [place] [facility], [address] [place] [address] [address] [place] [id number] 0 Phone: () - 03/15 CBC w/ auto diff MCHC g/dL 30.0 35.0 34.1 FINAL Annamarie Mcginnisot a Oncology - [place] [facility], [address] [place] [address] [address] [place] [id number] 0 Phone: () - 03/15 CBC w/ auto diff MPV fL 9.5 13.4 9.6 FINAL Annamarie Mcginnisot a Oncology - [place] [facility], [address] [place] [address] [address] [place] [id number] 0 Phone: () - 03/15 CBC w/ auto diff RDW % 11.4 16.1 13.00 FINAL Annamarie Prenderg ast [place] [facility], [address] [facility] [place] [id number] 0 Phone: () - 03/15 CMP Sodiu [...] inine mg/dL 0.57 1.11 1.13 High FINAL Annamairerenny Smith ast 03/15 CMP BUN/C reati nine [...] samreen g/dL 2.0 3.7 3.2 FINAL Annamarierenny Smiht ast 03/15 CMP A/G ratio 1.0 2.0 1.3% FINAL Annamarie Luis ast 03/15 CMP Bilir ubin, total mg/dL 0.2 1.2 0.5 FINAL Annamarie Zamorano ast 03/15 CMP Alkal ine phosp hatas e IU/L 50.0 136.0 69 FINAL Annamarie Zamorano ast 03/15 CMP ALT/S GPT IU/L 8.0 45.0 18 FINAL Annamarie Zamorano ast 03/15 CMP AST/S GOT IU/L 2.0 40.0 29 Test Performed by:[facility] [facility] [address] - [facility] [place] [address]Vaem e [phone] FINAL Annamarie Zamorano ast 03/15 [facility] other lab See [facility] d 03/15 [facility] other lab See [facility] d 03/24 [facility] other lab See kilnman d 04/12 TSH panel TSH uIU/ml 0.32 5.0 1.71 Test performed at [facility] on a [employer] Immunoass ay Analyzer that uses an immunoenz ymometric sandwich assay for analysis. Patient testing should not be performed using multiple methodolo ginorris due to analytica l variation seen between test methoddanelle soto. FINAL Annamarie Mcginnisot a Oncology [facility], [address] [facility] [address] [facility] [id number] 0 Phone: () - 04/12 CBC w/ auto diff MCH pg 26.0 35.0 35.0 FINAL Annamarie Mcginnisot a [facility], [address] [place] [address] [address] [place] [id number] 0 Phone: () - 04/12 CBC w/ auto diff MCHC g/dL 30.0 35.0 33.1 FINAL Annamarie Mcginnisot a Oncology [facility], [address] [place] [id number] 0 Phone: () - 04/12 CBC w/ auto diff MPV fL 9.5 13.4 9.5 FINAL Annamarie Mcginnisot a Oncology [facility], [address] [place] [id number] 0 Phone: () - 04/12 CBC w/ auto diff RDW % 11.4 16.1 12.90 FINAL Annamarie noel Oncology - [place], [address] [place] [address] [address] [place] [id number] 0 Phone: () - 04/12 CBC w/ auto diff WBC K/uL 3.0 8.9 8.9 FINAL Annamarie noel Oncology - [place], [address] [place] [address] [address] [place] [id number] 0 Phone: () - 04/12 CBC w/ auto diff HGB g/dL 11.3 15.2 11.8 FINAL Annamarie Peters a Oncology - [place], [address] [place] [address] [address] [place] [id number] 0 Phone: () - 04/12 CBC w/ auto diff PLT K/uL 113.0 364.0 162 FINAL Annamarie noel Oncology - [place], [address] [place] [address] [address] [place] [id number] 0 Phone: () - 04/12 CBC w/ auto diff Avtar # (ANC) K/uL 1.6 6.6 5.0 FINAL Annamarie Peters a Oncology - [place], [address] [place] [address] [address] [place] [id number] 0 Phone: () - 04/12 CBC w/ auto diff Avtar % % 43.0 74.0 56.1 FINAL Annamarie Mcginnisot a Oncology - [place], [address] [place] [address] [address] [place] [id number] 0 Phone: () - 04/12 CBC w/ auto diff IG % % 0.0 0.5 0.7 High FINAL Annamarie Mcginnisot a Oncology - [place], [address] [place] [address] [address] [place] [id number] 0 Phone: () - 04/12 CBC w/ auto diff IG # K/uL 0.0 0.03 0.06 High FINAL Annamarie Mcginnisot a Oncology - [place], [address] [place] [address] [address] [place] [id number] 0 Phone: () - 04/12 CBC w/ auto diff LY % % 14.0 41.0 29.0 FINAL Annamarie Mcginnisot a Oncology - [place] [facility], [address] [place] [id number] 0 Phone: () - 04/12 CBC w/ auto diff MO % % 6.0 15.0 7.8 FINAL Annamarie noel Oncology - [place] [facility], [address] [place] [id number] 0 Phone: () - 04/12 CBC w/ auto diff EO % % 0.0 7.0 5.6 FINAL Annamarie noel Oncology - [place] [facility], [address] [place] [id number] 0 Phone: () - 04/12 CBC w/ auto diff BA % % 0.0 2.0 0.8 FINAL Annamarie noel Oncology - [place] [facility], [address] [place] [id number] 0 Phone: () - 04/12 CBC w/ auto diff LY # K/uL 0.4 3.6 2.6 FINAL Annamarie Peters a Oncology - [place] [facility], [address] [place] [address] [address] [place] [id number] 0 Phone: () - 04/12 CBC w/ auto diff MO # K/uL 0.2 1.3 0.7 FINAL Annamarie noel Oncology - [place] [facility], [address] [place] [address] [address] [place] [id number] 0 Phone: () - 04/12 CBC w/ auto diff EO # K/uL 0.0 0.6 0.5 FINAL Annamarie noel Oncology - [place] [facility], [address] [place] [id number] 0 Phone: () - 04/12 CBC w/ auto diff BA # K/uL 0.0 0.2 0.1 FINAL Annamarie noel Oncology - [place] [facility], [address] [place] [id number] 0 Phone: () - 04/12 CBC w/ auto diff NRBC % #/100W BC 0.0 0.2 0.0 FINAL Annamarie Mcginnisot a Oncology - [place] [facility], [address] [facility] [place] [id number] 0 Phone: () - 04/12 CBC w/ auto diff RBC M/uL 3.9 5.1 3.37 Low FINAL Annamarie noel Oncology - [facility], [address] [facility] [place] [id number] 0 Phone: () - 04/12 CBC w/ auto diff HCT % 35.0 48.0 35.7 FINAL Annamarie noel Oncology [facility], [address] [facility] [place] [id number] 0 Phone: () - 04/12 CBC w/ auto diff MCV fL 80.0 104.0 105.9 High FINAL Annamarie noel Oncology [facility], [address] 200 [facility] [place] [id number] 0 Phone: () - 04/12 CA 125 panel CA 125 UNITS/ ML 0.0 34.0 7.70 Test performed at [facility] on a [employer] Immunoass ay Analyzer that uses an immunoenz ymometric sandwich assay for analysis. Patient testing should not be performed using multiple methodolo charles due to analytica l variation seen between test methoddanelle soto. FINAL Annamarie noel Oncology - [place], [address] [facility] 100 [facility] [id number] 0 Phone: () - 04/12 CMP Sodiu [...] GOT IU/L 2.0 40.0 30 Test Performed by:[employer] [facility] [address] - [facility] [place] [address]Lmtg e : FINAL Annamarie Zamorano ast 04/12 [facility] other lab See kilnman d 04/12 [facility] other lab See kilnman d 05/10 CBC w/ auto diff BA % % 0.0 2.0 0.5 FINAL Tamanna Mcginnisot a Oncology - [facility], [address] [place] [address] [address] [place] [id number] 0 Phone: () - 05/10 CBC w/ auto diff LY # K/uL 0.4 3.6 2.3 FINAL Tamanna noel Oncology - [place] [facility], [address] [place] [address] 200 [place] [id number] 0 Phone: () - 05/10 CBC w/ auto diff MO # K/uL 0.2 1.3 0.8 FINAL Tamanna noel Oncology - [place] [facility], [address] [place] [address] 200 [place] [id number] 0 Phone: () - 05/10 CBC w/ auto diff EO # K/uL 0.0 0.6 0.5 FINAL Tamanna noel Oncology - [place] [facility], [address] [place] [address] 200 [place] [id number] 0 Phone: () - 05/10 CBC w/ auto diff BA # K/uL 0.0 0.2 0.1 FINAL Tamanna noel Oncology - [place] [facility], [address] [place] [address] 200 [place] [id number] 0 Phone: () - 05/10 CBC w/ auto diff NRBC % #/100W BC 0.0 0.2 0.0 FINAL Tamanna noel Oncology - [place] [facility], [address] [place] [address] 200 [place] [id number] 0 Phone: () - 05/10 CBC w/ auto diff RBC M/uL 3.9 5.1 3.61 Low FINAL Tamanna noel Oncology - [place] [facility], [address] [place] [address] 200 [place] [id number] 0 Phone: () - 05/10 CBC w/ auto diff HCT % 35.0 48.0 36.9 FINAL Tamanna noel Oncology - [place] [facility], [address] [place] [address] 200 [place] [id number] 0 Phone: () - 05/10 CBC w/ auto diff MCV fL 80.0 104.0 102.2 FINAL Tamanna noel Oncology - [place] [facility], [address] [place] [address] 200 [place] [id number] 0 Phone: () - 05/10 CBC w/ auto diff MCH pg 26.0 35.0 35.7 High FINAL Tamanna noel Oncology - [place], [address] [place] [id number] 0 Phone: () - 05/10 CBC w/ auto diff MCHC g/dL 30.0 35.0 35.0 FINAL Tamanna noel Oncology - [place], [address] [place] [id number] 0 Phone: () - 05/10 CBC w/ auto diff MPV fL 9.5 13.4 9.2 Low FINAL Tamanna noel Oncology - [place], [address] [place] [id number] 0 Phone: () - 05/10 CBC w/ auto diff RDW % 11.4 16.1 12.50 FINAL Tamanna noel Oncology - [place], [address] [place] [id number] 0 Phone: () - 05/10 CBC w/ auto diff WBC K/uL 3.0 8.9 10.3 High FINAL Tamanna noel Oncology - [place], [address] [place] [id number] 0 Phone: () - 05/10 CBC w/ auto diff HGB g/dL 11.3 15.2 12.9 FINAL Tamanna noel Oncology - [place], [address] [place] [id number] 0 Phone: () - 05/10 CBC w/ auto diff PLT K/uL 113.0 364.0 172 FINAL Tamanna noel Oncology - [place], [address] [place] [address] [address] [place] [id number] 0 Phone: () - 05/10 CBC w/ auto diff Avtar # (ANC) K/uL 1.6 6.6 6.6 FINAL Tamanna noel Oncology - [place], [address] [place] [id number] 0 Phone: () - 05/10 CBC w/ auto diff Avtar % % 43.0 74.0 64.3 FINAL Tamanna noel Oncology - [place], [address] [facility] [place] [id number] 0 Phone: () - 05/10 CBC w/ auto diff IG % % 0.0 0.5 0.7 High FINAL Tamanna noel Oncology - [facility], [address] [facility] [place] [id number] 0 Phone: () - 05/10 CBC w/ auto diff IG # K/uL 0.0 0.03 0.07 High FINAL Tamanna noel Oncology - [facility], [address] [facility] [place] [id number] 0 Phone: () - 05/10 CBC w/ auto diff LY % % 14.0 41.0 22.7 FINAL Tamanna noel Oncology [facility], [address] [facility] MD [id number] 0 Phone: () - 05/10 CBC w/ auto diff MO % % 6.0 15.0 7.4 FINAL Tamanna noel Oncology - [facility], [address] [facility] [place] [id number] 0 Phone: () - 05/10 CBC w/ auto diff EO % % 0.0 7.0 4.4 FINAL Tamanna noel Oncology - [facility], [address] [facility] [place] [id number] 0 Phone: () - 05/10 CA 125 panel CA 125 UNITS/ ML 0.0 34.0 9.80 Test performed at [facility] on a [employer] computer 2000 Immunoass ay Analyzer that uses an immunoenz ymometric sandwich assay for analysis. Patient testing should not be performed using multiple methodolo gies due to analytica l variation seen between test methodolo gies. FINAL Tamanna noel Oncology [facility], [address] [facility] [address] [facility] [id number] 0 Phone: () - 05/10 TSH panel TSH uIU/ml 0.32 5.0 1.90 Test performed at [facility] on a [employer] computer 2000 Immunoass ay Analyzer that uses an immunoenz ymometric sandwich assay for analysis. Patient testing should not be performed using multiple methodolo gies due to analytica l variation seen between test methoddanelle soto. FINAL Tamanna Mcginnisot a Oncology - [place], [address] [place] [address] [address] [facility] [id number] 0 Phone: () - 05/10 CMP Sodiu [...] GOT IU/L 2.0 40.0 33 Test Performed by:[employer] [facility] [address] [facility] [place] [address]Tskp e : FINAL Tamanna Rolon 05/10 [facility] other lab See kilnman d 05/10 [facility] other lab See kilnman d 05/25 [facility] other lab See kilnman d 06/07 CMP Sodiu m mmol/L 135.0 [...] IU/L 2.0 40.0 44 High Test Performed by:[employer] [facility] [address] - [place], [place] [address]Bbvm e : FINAL Annamarie Zamorano ast 06/07 TSH panel TSH uIU/ml 0.32 5.0 3.43 Test performed at [facility] on a [employer] Immunoass ay Analyzer that uses an immunoenz ymometric sandwich assay for analysis. Patient testing should not be performed using multiple methodolo gies due to analytica l variation seen between test methodolo gies. FINAL Annamarie Mcginnisot a Oncology [address] [id number] 0 Phone: () - 06/07 CA 125 panel CA 125 UNITS/ ML 0.0 34.0 9.80 Test performed at [facility] on a [employer] computer 2000 Immunoass ay Analyzer that uses an immunoenz ymometric sandwich assay for analysis. Patient testing should not be performed using multiple methodolo gies due to analytica l variation seen between test methodolo gies. FINAL [place]arie rivero [place] [facility] [address] [id number] 0 Phone: () - 06/07 CBC w/ auto diff WBC K/uL 3.0 8.9 9.5 High FINAL Annamarie Mcginnisot a Oncology - [place], [address] [place] [address] [address] [place] [id number] 0 Phone: () - 06/07 CBC w/ auto diff HGB g/dL 11.3 15.2 12.2 FINAL Annamarie Mcginnisot a Oncology - [place], [address] [place] [address] [address] [place] [id number] 0 Phone: () - 06/07 CBC w/ auto diff PLT K/uL 113.0 364.0 166 FINAL Annamarie Mcginnisot a Oncology - [place], [address] [place] [address] [address] [place] [id number] 0 Phone: () - 06/07 CBC w/ auto diff Avtar # (ANC) K/uL 1.6 6.6 5.8 FINAL Annamarie Mcginnisot a Oncology - [place], [address] [place] [address] [address] [place] [id number] 0 Phone: () - 06/07 CBC w/ auto diff Avtar % % 43.0 74.0 60.6 FINAL Annamarie Mcginnisot a Oncology - [place], [address] [place] [address] [address] [place] [id number] 0 Phone: () - 06/07 CBC w/ auto diff IG % % 0.0 0.5 0.7 High FINAL Annamarie Mcginnisot a Oncology - [place], [address] [place] [address] [address] [place] [id number] 0 Phone: () - 06/07 CBC w/ auto diff IG # K/uL 0.0 0.03 0.07 High FINAL Annamarierenny rivero [place] [facility] [place], [address] [place] [address] [address] [place] [id number] 0 Phone: () - 06/07 CBC w/ auto diff LY % % 14.0 41.0 25.2 FINAL Annamarierenny rivero [place] [facility] [place], [address] [place] [address] [address] [place] [id number] 0 Phone: () - 06/07 CBC w/ auto diff MO % % 6.0 15.0 7.7 FINAL Annamarie Mcginnisot a Oncology - [place], [address] [place] [address] [address] [place] [id number] 0 Phone: () - 06/07 CBC w/ auto diff EO % % 0.0 7.0 5.1 FINAL Annamarie Mcginnisot a Oncology - [place] [facility], [address] [place] [address] [address] [place] [id number] 0 Phone: () - 06/07 CBC w/ auto diff BA % % 0.0 2.0 0.7 FINAL Annamarie Mcginnisot a Oncology - [place] [facility], [address] [place] [address] [address] [place] [id number] 0 Phone: () - 06/07 CBC w/ auto diff LY # K/uL 0.4 3.6 2.4 FINAL Annamarie Mcginnisot a Oncology - [place] [facility], [address] [place] [address] [address] [place] [id number] 0 Phone: () - 06/07 CBC w/ auto diff MO # K/uL 0.2 1.3 0.7 FINAL Annamarie Mcginnisot a Oncology - [place] [facility], [address] [place] [address] [address] [place] [id number] 0 Phone: () - 06/07 CBC w/ auto diff EO # K/uL 0.0 0.6 0.5 FINAL Annamarie Mcginnisot a Oncology - [place] [facility], [address] [place] [address] [address] [place] [id number] 0 Phone: () - 06/07 CBC w/ auto diff BA # K/uL 0.0 0.2 0.1 FINAL Annamarie Mcginnisot a Oncology - [place] [facility], [address] [place] [address] [address] [place] [id number] 0 Phone: () - 06/07 CBC w/ auto diff NRBC % #/100W BC 0.0 0.2 0.0 FINAL Annamarie Mcginnisot a Oncology - [place] [facility], [address] [place] [address] [address] [place] [id number] 0 Phone: () - 06/07 CBC w/ auto diff RBC M/uL 3.9 5.1 3.46 Low FINAL [facility], [address] [place] [address] [address] [place] [id number] 0 Phone: () - 06/07 CBC w/ auto diff HCT % 35.0 48.0 35.6 FINAL [facility]arie [facility], [address] [place] [address] [address] [place] [id number] 0 Phone: () - 06/07 CBC w/ auto diff MCV fL 80.0 104.0 102.9 FINAL [facility], [address] [place] [address] [address] [place] [id number] 0 Phone: () - 06/07 CBC w/ auto diff MCH pg 26.0 35.0 35.3 High FINAL [facility], [address] [place] [address] [address] [place] [id number] 0 Phone: () - 06/07 CBC w/ auto diff MCHC g/dL 30.0 35.0 34.3 FINAL Annamarie [facility], [address] [place] [address] [address] [place] [id number] 0 Phone: () - 06/07 CBC w/ auto diff MPV fL 9.5 13.4 9.4 Low FINAL [facility], [address] [place] [address] [address] [place] [id number] 0 Phone: () - 06/07 CBC w/ auto diff RDW % 11.4 16.1 12.50 FINAL [facility], [address] [place] [address] [address] [place] [id number] 0 Phone: () - 06/07 Misc other lab See kilnman d 07/05 TSH panel TSH uIU/ml 0.32 5.0 2.46 Test performed at [facility] on a [employer] Immunoass ay Analyzer that uses an immunoenz ymometric sandwich assay for analysis. Patient testing should not be performed using multiple hallie soto due to analytica l variation seen between test hallie soto. FINAL Tamanna Rolon [facility] [address] [place] [address] 100 [facility] [id number] 0 Phone: () - 07/05 CA 125 panel CA 125 UNITS/ ML 0.0 34.0 9.50 Test performed at [facility] on a [employer] Hasee computer 2000 Immunoass ay Analyzer that uses an immunoenz ymometric sandwich assay for analysis. Patient testing should not be performed using multiple methodolo ginorris due to analytica l variation seen between test methodolo gies. FINAL Tamanna noel Oncology [facility], [address] [place] [address] [address] [facility] [id number] 0 Phone: () - 07/05 CBC w/ auto diff BA # K/uL 0.0 0.2 0.1 FINAL Tam[facility], [address] [place] [address] 200 [place] [id number] 0 Phone: () - 07/05 CBC w/ auto diff NRBC % #/100W BC 0.0 0.2 0.0 FINAL Tam[facility] no[facility], [address] [place] [address] 200 [place] [id number] 0 Phone: () - 07/05 CBC w/ auto diff RBC M/uL 3.9 5.1 3.54 Low FINAL Tamanna no[facility], [address] [place] [address] 200 [place] [id number] 0 Phone: () - 07/05 CBC w/ auto diff HCT % 35.0 48.0 37.0 FINAL Tamanna noel [facility], [address] [place] [address] 200 [place] [id number] 0 Phone: () - 07/05 CBC w/ auto diff MCV fL 80.0 104.0 104.5 High FINAL Tamanna noel [facility], [address] [place] [address] 200 [place] [id number] 0 Phone: () - 07/05 CBC w/ auto diff MCH pg 26.0 35.0 35.0 FINAL Tamanna no[facility], [address] [place] [address] 200 [place] [id number] 0 Phone: () - 07/05 CBC w/ auto diff MCHC g/dL 30.0 35.0 33.5 FINAL Tamanna noel Oncology - [place], [address] [place] [address] [address] [place] [id number] 0 Phone: () - 07/05 CBC w/ auto diff MPV fL 9.5 13.4 9.5 FINAL Tamanna noel Oncology - [place], [address] [place] [address] [address] [place] [id number] 0 Phone: () - 07/05 CBC w/ auto diff RDW % 11.4 16.1 13.10 FINAL Tamanna noel Oncology - [place], [address] [place] [id number] 0 Phone: () - 07/05 CBC w/ auto diff WBC K/uL 3.0 8.9 10.4 High FINAL Tamanna noel Oncology - [place], [address] [place] [id number] 0 Phone: () - 07/05 CBC w/ auto diff HGB g/dL 11.3 15.2 12.4 FINAL Tamanna noel Oncology - [place], [address] [place] [id number] 0 Phone: () - 07/05 CBC w/ auto diff PLT K/uL 113.0 364.0 177 FINAL Tamanna noel Oncology - [place], [address] [place] [id number] 0 Phone: () - 07/05 CBC w/ auto diff Avtar # (ANC) K/uL 1.6 6.6 6.3 FINAL Tamanna noel Oncology - [place], [address] [place] [address] [address] [place] [id number] 0 Phone: () - 07/05 CBC w/ auto diff Avtar % % 43.0 74.0 61.2 FINAL Tamanna noel Oncology - [place], [address] [place] [address] [address] [place] [id number] 0 Phone: () - 07/05 CBC w/ auto diff IG % % 0.0 0.5 0.7 High FINAL Tamanna noel Oncology - [place], [address] [place] [id number] 0 Phone: () - 07/05 CBC w/ auto diff IG # K/uL 0.0 0.03 0.07 High FINAL Tamanna noel Oncology - [place], [address] [place] [id number] 0 Phone: () - 07/05 CBC w/ auto diff LY % % 14.0 41.0 24.2 FINAL Tamanna noel Oncology - [place], [address] [place] [id number] 0 Phone: () - 07/05 CBC w/ auto diff MO % % 6.0 15.0 8.6 FINAL Tamanna noel Oncology - [place], [address] [place] [id number] 0 Phone: () - 07/05 CBC w/ auto diff EO % % 0.0 7.0 4.5 FINAL Tamanna noel Oncology - [place], [address] [place] [id number] 0 Phone: () - 07/05 CBC w/ auto diff BA % % 0.0 2.0 0.8 FINAL Tamanna noel Oncology - [place], [address] [place] [id number] 0 Phone: () - 07/05 CBC w/ auto diff LY # K/uL 0.4 3.6 2.5 FINAL Tamanna noel Oncology - [place], [address] [place] [id number] 0 Phone: () - 07/05 CBC w/ auto diff MO # K/uL 0.2 1.3 0.9 FINAL Tamanna noel Oncology - [place], [address] [place] [id number] 0 Phone: () - 07/05 CBC w/ auto diff EO # K/uL 0.0 0.6 0.5 FINAL Tamanna noel Oncology - [place], [address] [place] [id number] 0 Phone: () - 07/05 CMP Sodiu [...] GOT IU/L 2.0 40.0 36 Test Performed by:[facility] [address], [address] - [facility], [place] [id number] e : FINAL Tamanna Rolon 07/05 [facility] other lab See kilnman d 07/13 Mis other lab See kilnman d 08/02 TSH panel TSH uIU/ml 0.32 5.0 2.38 Test performed at [facility] on a [employer] EV [employer]versions 2000 Immunoass ay Analyzer that uses an immunoenz ymometric sandwich assay for analysis. Patient testing should not be performed using multiple methodolo gies due to analytica l variation seen between test methodolo gies. FINAL Tamnana noel [facility], [address] [place] [address] [place] [address] [id number] 0 Phone: () - 08/02 CA 125 panel CA 125 UNITS/ ML 0.0 34.0 8.50 Test performed at [facility] on a [employer] H[employer] computer 2000 Immunoass ay Analyzer that uses an immunoenz ymometric sandwich assay for analysis. Patient testing should not be performed using multiple methodolo gies due to analytica l variation seen between test methodolo gies. FINAL Tamanna noel [facility], [address] [place] [address] [place] [address] [id number] 0 Phone: () - 08/02 CBC w/ auto diff WBC K/uL 3.0 8.9 9.3 High FINAL Tamanna noel [facility], [address] [place] [id number] 0 Phone: () - 08/02 CBC w/ auto diff HGB g/dL 11.3 15.2 12.5 FINAL Tamanna noel [facility], [address] [place] [id number] 0 Phone: () - 08/02 CBC w/ auto diff PLT K/uL 113.0 364.0 165 FINAL Tamanna noel Oncology - [place], [address] [place] [id number] 0 Phone: () - 08/02 CBC w/ auto diff Avtar # (ANC) K/uL 1.6 6.6 5.7 FINAL Tamanna noel Oncology - [place], [address] [place] [id number] 0 Phone: () - 08/02 CBC w/ auto diff Avtar % % 43.0 74.0 61.0 FINAL Tamanna noel Oncology - [place], [address] 200 [place] [id number] 0 Phone: () - 08/02 CBC w/ auto diff IG % % 0.0 0.5 0.6 High FINAL Tamanna noel Oncology - [place], [address] [place] [address] 200 [place] [id number] 0 Phone: () - 08/02 CBC w/ auto diff IG # K/uL 0.0 0.03 0.06 High FINAL Tamanna noel Oncology - [place], [address] [place] [address] 200 [place] [id number] 0 Phone: () - 08/02 CBC w/ auto diff LY % % 14.0 41.0 24.1 FINAL Tamanna noel Oncology - [place], [address] [place] [address] 200 [place] [id number] 0 Phone: () - 08/02 CBC w/ auto diff MO % % 6.0 15.0 8.4 FINAL Tamanna noel Oncology - [place], [address] [place] [address] 200 [place] [id number] 0 Phone: () - 08/02 CBC w/ auto diff EO % % 0.0 7.0 5.1 FINAL Tamanna noel Oncology - [place], [address] [place] [address] [address] [place] [id number] 0 Phone: () - 08/02 CBC w/ auto diff BA % % 0.0 2.0 0.8 FINAL Tamanna noel Oncology - [place], [address] [place] [address] [address] [place] [id number] 0 Phone: () - 08/02 CBC w/ auto diff LY # K/uL 0.4 3.6 2.2 FINAL Tamanna noel Oncology - [place] [facility], [address] 200 [place] [id number] 0 Phone: () - 08/02 CBC w/ auto diff MO # K/uL 0.2 1.3 0.8 FINAL Tamanna noel Oncology - [place] [facility], [address] [place] [address] 200 [place] [id number] 0 Phone: () - 08/02 CBC w/ auto diff EO # K/uL 0.0 0.6 0.5 FINAL Tamanna noel Oncology - [place] [facility], [address] [place] [address] 200 [place] [id number] 0 Phone: () - 08/02 CBC w/ auto diff BA # K/uL 0.0 0.2 0.1 FINAL Tamanna noel Oncology - [place] [facility], [address] [place] [address] 200 [place] [id number] 0 Phone: () - 08/02 CBC w/ auto diff NRBC % #/100W BC 0.0 0.2 0.0 FINAL Tamanna noel Oncology - [place] [facility], [address] [place] [address] 200 [place] [id number] 0 Phone: () - 08/02 CBC w/ auto diff RBC M/uL 3.9 5.1 3.55 Low FINAL Tamanna noel Oncology - [place] [facility], [address] [place] [address] 200 [place] [id number] 0 Phone: () - 08/02 CBC w/ auto diff HCT % 35.0 48.0 37.3 FINAL Tamanna noel Oncology - [place] [facility], [address] [place] [address] 200 [place] [id number] 0 Phone: () - 08/02 CBC w/ auto diff MCV fL 80.0 104.0 105.1 High FINAL Tamanna noel Oncology - [place] [facility], [address] [place] [address] 200 [place] [id number] 0 Phone: () - 08/02 CBC w/ auto diff MCH pg 26.0 35.0 35.2 High FINAL Tamanna noel Oncology - [place], [address] [place] [id number] 0 Phone: () - 08/02 CBC w/ auto diff MCHC g/dL 30.0 35.0 33.5 FINAL Tamanna noel Oncology - [place], [address] [place] [id number] 0 Phone: () - 08/02 CBC w/ auto diff MPV fL 9.5 13.4 9.6 FINAL Tamanna noel Oncology - [place], [address] [place] [id number] 0 Phone: () - 08/02 CBC w/ auto diff RDW % 11.4 16.1 13.00 FINAL Tamanna noel Oncology - [place], [address] [place] [id number] 0 Phone: () - 08/02 CMP Sodiu [...] GOT IU/L 2.0 40.0 32 Test Performed by:[facility] [address] - [place], [place] [address]Mief e [phone] FINAL Tamanna Rolon 08/02 [facility] other lab See kilnman d 08/13 [facility] other lab See kilnman d 08/30 Folat e, serum ng/mL 3.0 16.0 Folate greater than 20 FINAL Tamanna noel Oncology [address] [place] [address] [id number] [phone] Phone: () - 08/30 Magne sium, mg/dL mg/dL 1.5 2.3 1.5 FINAL Tamanna noel Oncology [address] [id number] Phone: () - 08/30 CBC w/ auto diff WBC K/uL 3.0 8.9 8.8 FINAL Tamanna noel [facility], [address] 200 [place] [id number] 0 Phone: () - 08/30 CBC w/ auto diff HGB g/dL 11.3 15.2 12.3 FINAL Tamanna noel Oncology - [place] [facility], [address] [place] [address] 200 [place] [id number] 0 Phone: () - 08/30 CBC w/ auto diff PLT K/uL 113.0 364.0 161 FINAL Tamanna noel Oncology - [place], [address] [place] [address] 200 [place] [id number] 0 Phone: () - 08/30 CBC w/ auto diff Avtar # (ANC) K/uL 1.6 6.6 5.6 FINAL Tamanna noel Oncology - [place] [facility], [address] [place] [address] 200 [place] [id number] 0 Phone: () - 08/30 CBC w/ auto diff Avtar % % 43.0 74.0 62.9 FINAL Tamanna noel Oncology - [place], [address] [place] [address] 200 [place] [id number] 0 Phone: () - 08/30 CBC w/ auto diff IG % % 0.0 0.5 0.5 FINAL Tamanna noel Oncology - [place] [facility], [address] [place] [address] 200 [place] [id number] 0 Phone: () - 08/30 CBC w/ auto diff IG # K/uL 0.0 0.03 0.04 High FINAL Tamanna noel Oncology - [place], [address] [place] [address] 200 [place] [id number] 0 Phone: () - 08/30 CBC w/ auto diff LY % % 14.0 41.0 23.7 FINAL Tamanna noel Oncology - [place] [facility], [address] [place] [address] 200 [place] [id number] 0 Phone: () - 08/30 CBC w/ auto diff MO % % 6.0 15.0 7.2 FINAL Tamanna noel Oncology - [place], [address] [place] [address] 200 [place] [id number] 0 Phone: () - 08/30 CBC w/ auto diff EO % % 0.0 7.0 5.1 FINAL Tamanna noel Oncology - [place], [address] [place] [id number] 0 Phone: () - 08/30 CBC w/ auto diff BA % % 0.0 2.0 0.6 FINAL Tamanna noel Oncology - [place], [address] [place] [address] [address] [place] [id number] 0 Phone: () - 08/30 CBC w/ auto diff LY # K/uL 0.4 3.6 2.1 FINAL Tamanna noel Oncology - [place], [address] [place] [id number] 0 Phone: () - 08/30 CBC w/ auto diff MO # K/uL 0.2 1.3 0.6 FINAL Tamanna noel Oncology - [place], [facility] [address] [place] [id number] 0 Phone: () - 08/30 CBC w/ auto diff EO # K/uL 0.0 0.6 0.5 FINAL Tamanna noel Oncology - [place], [address] [place] [id number] 0 Phone: () - 08/30 CBC w/ auto diff BA # K/uL 0.0 0.2 0.1 FINAL Tamanna noel Oncology - [place], [address] [place] [address] [address] [place] [id number] 0 Phone: () - 08/30 CBC w/ auto diff NRBC % #/100W BC 0.0 0.2 0.0 FINAL Tamanna noel Oncology - [place], [address] [place] [id number] 0 Phone: () - 08/30 CBC w/ auto diff RBC M/uL 3.9 5.1 3.53 Low FINAL Tamanna noel Oncology - [place], [address] [place] [id number] 0 Phone: () - 08/30 CBC w/ auto diff HCT % 35.0 48.0 37.1 FINAL Tamanna noel Oncology - [facility], [address] [place] [address] [address] [place] [id number] 0 Phone: () - 08/30 CBC w/ auto diff MCV fL 80.0 104.0 105.1 High FINAL [facility], [address] [place] [address] [address] [place] [id number] 0 Phone: () - 08/30 CBC w/ auto diff MCH pg 26.0 35.0 34.8 FINAL Tamanna noel [facility], [address] [place] [address] [address] [place] [id number] 0 Phone: () - 08/30 CBC w/ auto diff MCHC g/dL 30.0 35.0 33.2 FINAL Tamanna noel Oncology [facility], [address] [place] [address] [address] [place] [id number] 0 Phone: () - 08/30 CBC w/ auto diff MPV fL 9.5 13.4 9.7 FINAL Tamanna noel Oncology [facility], [address] [place] [address] [address] [place] [id number] 0 Phone: () - 08/30 CBC w/ auto diff RDW % 11.4 16.1 12.40 FINAL Tamanna noel Oncology [facility], [address] [place] [address] [address] [place] [id number] 0 Phone: () - 08/30 TSH panel TSH uIU/ml 0.32 5.0 2.25 Test performed at [facility] on a [employer] Immunoass ay Analyzer that uses an immunoenz ymometric sandwich assay for analysis. Patient testing should not be performed using multiple methodolo charles due to analytica l variation seen between test methoddanelle soto. FINAL Tamanna noel Oncology - [place], [address] [facility] [address] [place] [id number] 0 Phone: () - 08/30 CA 125 panel CA 125 UNITS/ ML 0.0 34.0 12.90 Test performed at [facility] on a [employer] computer 2000 Immunoass ay Analyzer that uses an immunoenz ymometric sandwich assay for analysis. Patient testing should not be performed using multiple methoddanelle soto due to analytica l variation seen between test methoddanelle soto. FINAL Tamanna noel Oncology - [place], [address] [facility] [address] [facility] [id number] 0 Phone: () - 08/30 Retic ulocy te, absol capitan grande band M/uL 0.02 0.08 0.08 FINAL [facility], [address] [facility] [id number] 0 Phone: () - 08/30 Retic ulocy te count % 0.4 1.6 2.19 High FINAL Tam[facility] no[facility], [address] [facility] [id number] 0 Phone: () - 08/30 Immat ure retic ulocy te fract ion, % % 0.0 16.5 20.20 High FINAL Tamanna noel [facility], [address] [place] [address] [address] [facility] [id number] 0 Phone: () - 08/30 Retic ulocy te cellu lar hemog lobin pg 28.0 37.0 38.2 High FINAL Tam[facility] no[facility], [address] [place] [address] [address] [facility] [place] [id number] 0 Phone: () - 08/30 CMP Sodiu [...] GPT IU/L 8.0 45.0 18 FINAL Tamanna oRlon 08/30 CMP AST/S GOT IU/L 2.0 40.0 30 Test Performed by:[facility] [address] - [facility], [place] [address]Otqf e : FINAL Tamanna Rolon 08/30 Rashida stero l mg/dL 100.0 199.0 146 FINAL Tamanna Rolon 08/30 Chemi strie s Fasti ng statu s RANDOM Test Performed by:[facility] [address] - [facility] [place] [place] [address]Qtce e : FINAL Tamanna Rolon 08/30 Phosp horus mg/dL 2.3 4.7 2.6 Test Performed by:[facility] [address] - [place], [place] [address]Ewte e : FINAL Tamanna Rolon 08/30 LDH U/L 120.0 246.0 184 FINAL Tamanna noel Oncology - [place], [address] [place] [address] [address] [facility] [id number] 0 Phone: () - 09/27 Magne sium, mg/dL mg/dL 1.5 2.3 1.4 Low FINAL Tamanna noel Oncology - [place], [address] [place] [address] [address] [facility] [id number] 0 Phone: () - 09/27 Retic ulocy te, absol capitan grande band M/uL 0.02 0.08 0.09 High FINAL Tamanna noel Oncology - [facility], [address] [place] [id number] 0 Phone: () - 09/27 Retic ulocy te count % 0.4 1.6 2.55 High FINAL Tamanna noel Oncology - [facility], [address] [place] [address] [address] [place] [id number] 0 Phone: () - 09/27 Immat ure retic ulocy te fract ion, % % 0.0 16.5 26.30 High FINAL Tamanna noel Oncology - [facility], [address] [place] [id number] 0 Phone: () - 09/27 Retic ulocy te cellu lar hemog lobin pg 28.0 37.0 38.2 High FINAL Tamanna noel Oncology - [facility], [address] [place] [id number] 0 Phone: () - 09/27 CBC w/ auto diff WBC K/uL 3.0 8.9 10.3 High FINAL Tamanna noel Oncology - [facility], [address] [place] [id number] 0 Phone: () - 09/27 CBC w/ auto diff HGB g/dL 11.3 15.2 12.9 FINAL Tamanna noel Oncology - [place], [address] [place] [id number] 0 Phone: () - 09/27 CBC w/ auto diff PLT K/uL 113.0 364.0 190 FINAL Tamanna noel Oncology - [place], [address] [place] [id number] 0 Phone: () - 09/27 CBC w/ auto diff Avtar # (ANC) K/uL 1.6 6.6 6.7 High FINAL Tamanna noel Oncology - [place], [address] [place] [id number] 0 Phone: () - 09/27 CBC w/ auto diff Avtar % % 43.0 74.0 64.3 FINAL Tamanna noel Oncology - [place], [address] [place] [id number] 0 Phone: () - 09/27 CBC w/ auto diff IG % % 0.0 0.5 0.7 High FINAL Tamanna noel Oncology - [place], [address] [place] [id number] 0 Phone: () - 09/27 CBC w/ auto diff IG # K/uL 0.0 0.03 0.07 High FINAL Tamanna noel Oncology - [place], [address] [place] [id number] 0 Phone: () - 09/27 CBC w/ auto diff LY % % 14.0 41.0 23.6 FINAL Tamanna noel Oncology - [place], [address] [place] [id number] 0 Phone: () - 09/27 CBC w/ auto diff MO % % 6.0 15.0 6.8 FINAL Tamanna noel Oncology - [place] [facility], [address] [place] [id number] 0 Phone: () - 09/27 CBC w/ auto diff EO % % 0.0 7.0 4.1 FINAL Tamanna noel Oncology - [place], [address] [place] [id number] 0 Phone: () - 09/27 CBC w/ auto diff BA % % 0.0 2.0 0.5 FINAL Tamanna noel Oncology - [place], [address] [place] [address] 200 [place] [id number] 0 Phone: () - 09/27 CBC w/ auto diff LY # K/uL 0.4 3.6 2.4 FINAL Tamanna noel Oncology - [place] [facility], [address] [place] [address] 200 [place] [id number] 0 Phone: () - 09/27 CBC w/ auto diff MO # K/uL 0.2 1.3 0.7 FINAL Tamanna noel Oncology - [place], [address] [place] [address] [address] [place] [id number] 0 Phone: () - 09/27 CBC w/ auto diff EO # K/uL 0.0 0.6 0.4 FINAL Tamanna noel Oncology - [place] [facility], [address] [place] [address] [address] [place] [id number] 0 Phone: () - 09/27 CBC w/ auto diff BA # K/uL 0.0 0.2 0.1 FINAL Tamanna noel Oncology - [place] [facility], [address] [place] [address] [address] [place] [id number] 0 Phone: () - 09/27 CBC w/ auto diff NRBC % #/100W BC 0.0 0.2 0.0 FINAL Tamanna noel Oncology - [place], [address] [place] [address] 200 [place] [id number] 0 Phone: () - 09/27 CBC w/ auto diff RBC M/uL 3.9 5.1 3.70 Low FINAL Tamanna noel Oncology - [place] [facility], [address] [place] [address] [address] [place] [id number] 0 Phone: () - 09/27 CBC w/ auto diff HCT % 35.0 48.0 38.7 FINAL Tamanna noel Oncology - [place], [address] [place] [address] 200 [place] [id number] 0 Phone: () - 09/27 CBC w/ auto diff MCV fL 80.0 104.0 104.6 High FINAL Tamanna noel Oncology [facility], [address] [place] [address] [address] [place] [id number] 0 Phone: () - 09/27 CBC w/ auto diff MCH pg 26.0 35.0 34.9 FINAL Tamanna noel [facility], [address] [place] [address] [address] [place] [id number] 0 Phone: () - 09/27 CBC w/ auto diff MCHC g/dL 30.0 35.0 33.3 FINAL Tamanna noel [facility], [address] [place] [address] 200 [place] [id number] 0 Phone: () - 09/27 CBC w/ auto diff MPV fL 9.5 13.4 9.1 Low FINAL Tamanna noel [facility], [address] [place] [address] 200 [facility] [place] [id number] 0 Phone: () - 09/27 CBC w/ auto diff RDW % 11.4 16.1 12.40 FINAL Tamanna noel [facility], [address] [place] [address] 200 [place] [id number] 0 Phone: () - 09/27 TSH uIU/ml 0.32 5.0 2.56 Test performed at [facility] on a [employer] computer 2000 Immunoass ay Analyzer that uses an immunoenz ymometric sandwich assay for analysis. Patient testing should not be performed using multiple methodolo gies due to analytica l variation seen between test methodolo gies. FINAL Tamanna noel [address] 100 [facility] [id number] 0 Phone: () - 09/27 CA 125 UNITS/ ML 0.0 34.0 10.40 Test performed at [facility] on a [employer] computer 2000 Immunoass ay Analyzer that uses an immunoenz ymometric sandwich assay for analysis. Patient testing should not be performed using multiple methodolo gies due to analytica l variation seen between test methodolo gies. FINAL Tamanna noel [address] [facility] [id number] 0 Phone: () - 09/27 Phosp horus mg/dL 2.3 4.7 2.8 Test Performed by:[facility] [address] - [facility], [place] [address]Eiun e : FINAL Tamannanithin Rolon 09/27 Rashida stero l mg/dL 100.0 199.0 148 FINAL Tamanna Gonzales 09/27 Chemi strie s Fasti ng statu s RANDOM Test Performed by:[facility] [address] - [facility], [place] [address]Kdvy e : FINAL Tamanna Gonzales 09/27 CMP [...] CMP BUN mg/dL 8.0 25.0 11 FINAL [facility] 09/27 CMP Creat inine mg/dL 0.57 1.11 1.09 FINAL [facility] 09/27 CMP BUN/C reati nine ratio 10.0 20.0 10.0% FINAL [facility] 09/27 CMP GFR Afric an Ameri can, estim ated ml/min /1.73m 2 60 Low FINAL [facility] 09[facility]27 CMP GFR non-A frica n Ameri [...] GOT IU/L 2.0 40.0 25 Test Performed by:[facility] [address] - [place], [place] [address]Cqoh e : FINAL Tamanna Rolon 09/27 LDH U/L 120.0 246.0 176 FINAL Tamanna noel Oncology [address] [id number] 0 Phone: () - 09/27 Folat e, serum ng/mL 3.0 16.0 17.4 High FINAL Tamanna noel Oncology [address] [id number] [phone] Phone: () - 10/25 TSH uIU/ml 0.32 5.0 2.28 Test performed at [facility] on a Looxii ay Analyzer that uses an immunoenz ymometric sandwich assay for analysis. Patient testing should not be performed using multiple methoddanelle soto due to analytica l variation seen between test methoddanelle soto. FINAL Tamanna noel Oncology [address] [id number] 0 Phone: () - 10/25 Retic ulocy te, absol capitan grande band M/uL 0.02 0.08 0.08 FINAL Tamanna noel Oncology [facility], [address] [place] [id number] 0 Phone: () - 10/25 Retic ulocy te count % 0.4 1.6 2.29 High FINAL Tamanna noel [facility], [address] 200 [place] [id number] 0 Phone: () - 10/25 Immat ure retic ulocy te fract ion, % % 0.0 16.5 18.50 High FINAL Tamanna noel [facility], [address] [place] [address] [address] [place] [id number] 0 Phone: () - 10/25 Retic ulocy te cellu lar hemog lobin pg 28.0 37.0 38.2 High FINAL Tamanna noel [facility], [address] [place] [address] [address] [place] [id number] 0 Phone: () - 10/25 CA 125 panel CA 125 UNITS/ ML 0.0 34.0 6.90 Test performed at [facility] on a [employer] Immunoass ay Analyzer that uses an immunoenz ymometric sandwich assay for analysis. Patient testing should not be performed using multiple methodolo gies due to analytica l variation seen between test methodolo ginorris. FINAL Tamanna noel Oncology [address] [place] [address] [id number] [phone] Phone: () - 10/25 Magne sium, mg/dL mg/dL 1.5 2.3 1.9 FINAL Tamanna noel Oncology [address] [facility] [id number] 0 Phone: () - 10/25 CBC w/ auto diff WBC K/uL 3.0 8.9 9.3 High FINAL Tamanna noel [facility], [address] [place] [id number] 0 Phone: () - 10/25 CBC w/ auto diff HGB g/dL 11.3 15.2 12.9 FINAL Tamanna noel Oncology - [place], [address] [place] [address] [address] [place] [id number] 0 Phone: () - 10/25 CBC w/ auto diff PLT K/uL 113.0 364.0 162 FINAL Tamanna noel Oncology - [place], [address] [place] [address] [address] [place] [id number] 0 Phone: () - 10/25 CBC w/ auto diff Avtar # (ANC) K/uL 1.6 6.6 6.1 FINAL Tamanna noel Oncology - [place], [address] [place] [address] [address] [place] [id number] 0 Phone: () - 10/25 CBC w/ auto diff Avtar % % 43.0 74.0 64.9 FINAL Tamanna noel Oncology - [place], [address] [place] [address] [address] [place] [id number] 0 Phone: () - 10/25 CBC w/ auto diff IG % % 0.0 0.5 0.5 FINAL Tamanna noel Oncology - [place], [address] [place] [address] [address] [place] [id number] 0 Phone: () - 10/25 CBC w/ auto diff IG # K/uL 0.0 0.03 0.05 High FINAL Tamanna noel Oncology - [place], [address] [place] [address] [address] [place] [id number] 0 Phone: () - 10/25 CBC w/ auto diff LY % % 14.0 41.0 22.9 FINAL Tamanna noel Oncology - [place], [address] [place] [address] [address] [place] [id number] 0 Phone: () - 10/25 CBC w/ auto diff MO % % 6.0 15.0 7.1 FINAL Tamanna noel Oncology - [place], [address] [place] [address] [address] [place] [id number] 0 Phone: () - 10/25 CBC w/ auto diff EO % % 0.0 7.0 4.2 FINAL Tamanna noel Oncology - [place], [address] [place] [id number] 0 Phone: () - 10/25 CBC w/ auto diff BA % % 0.0 2.0 0.4 FINAL Tamanna noel Oncology - [place], [address] [place] [id number] 0 Phone: () - 10/25 CBC w/ auto diff LY # K/uL 0.4 3.6 2.1 FINAL Tamanna noel Oncology - [place], [address] [place] [id number] 0 Phone: () - 10/25 CBC w/ auto diff MO # K/uL 0.2 1.3 0.7 FINAL Tamanna noel Oncology - [place], [address] [place] [address] [address] [place] [id number] 0 Phone: () - 10/25 CBC w/ auto diff EO # K/uL 0.0 0.6 0.4 FINAL Tamanna noel Oncology - [place], [address] [place] [address] [address] [place] [id number] 0 Phone: () - 10/25 CBC w/ auto diff BA # K/uL 0.0 0.2 0.0 FINAL Tamanna noel Oncology - [place], [address] [place] [address] [address] [place] [id number] 0 Phone: () - 10/25 CBC w/ auto diff NRBC % #/100W BC 0.0 0.2 0.0 FINAL Tamanna noel Oncology - [place], [address] [place] [address] [address] [place] [id number] 0 Phone: () - 10/25 CBC w/ auto diff RBC M/uL 3.9 5.1 3.70 Low FINAL Tamanna noel Oncology - [place], [address] [place] [address] [address] [place] [id number] 0 Phone: () - 10/25 CBC w/ auto diff HCT % 35.0 48.0 39.0 FINAL Tamanna noel Oncology - [place], [address] [place] [id number] 0 Phone: () - 10/25 CBC w/ auto diff MCV fL 80.0 104.0 105.4 High FINAL Tamanna noel Oncology - [place], [address] [place] [address] 200 [place] [id number] 0 Phone: () - 10/25 CBC w/ auto diff MCH pg 26.0 35.0 34.9 FINAL Tamanna noel Oncology - [place], [address] [place] [address] [address] [place] [id number] 0 Phone: () - 10/25 CBC w/ auto diff MCHC g/dL 30.0 35.0 33.1 FINAL Tamanna noel Oncology - [place], [address] [place] [address] [address] [place] [id number] 0 Phone: () - 10/25 CBC w/ auto diff MPV fL 9.5 13.4 9.8 FINAL Tamanna noel Oncology - [place], [address] [place] [address] 200 [place] [id number] 0 Phone: () - 10/25 CBC w/ auto diff RDW % 11.4 16.1 13.10 FINAL Tamanna noel Oncology - [place] [facility], [address] [place] [address] [address] [place] [id number] 0 Phone: () - 10/25 CMP Sodiu [...] Calci um mg/dL 8.5 10.5 8.5 FINAL [facility] 10/25 CMP BUN mg/dL 8.0 25.0 23 FINAL [facility] 10/25 CMP Creat inine mg/dL 0.57 1.11 1.15 High FINAL [facility] 10/25 CMP BUN/C reati nine ratio 10.0 20.0 20.0% FINAL [facility] 10/25 CMP GFR Afric an Ameri can, estim ated ml/min /1.73m 2 56 Low FINAL [facility] 10/25 CMP GFR non-A frica n Ameri can, estim ated ml/min /1.73m 2 47 Low FINAL [facility] 10/25 CMP Album in g/dL 3.2 4.6 4.0 FINAL [facility] 10/25 CMP Total prote in g/dL 6.0 8.0 6.8 FINAL [facility] 10/25 CMP Globu samreen g/dL 2.0 3.7 2.8 FINAL [facility] 10/25 CMP A/G ratio 1.0 2.0 1.4% FINAL [facility] 10/25 CMP Bilir ubin, total mg/dL 0.2 1.2 0.6 FINAL [facility] 10/25 CMP Alkal ine phosp hatas e IU/L 50.0 136.0 74 FINAL [facility] 10/25 CMP ALT/S GPT IU/L 8.0 45.0 17 FINAL [facility] 10/25 CMP AST/S GOT IU/L 2.0 40.0 29 Test Performed by:[facility] [address] [facility] [place] [address]Fdtx e [phone] FINAL [facility] 10/25 Phosp horus mg/dL 2.3 4.7 3.3 Test Performed by:[facility] [address] [place] [address]Uxjv e [phone] FINAL [facility] 10/25 Rashida stero l mg/dL 100.0 199.0 142 FINAL Tamanna Rolon 10/25 Chemi strie s Fasti ng statu s RANDOM Test Performed by:[facility] [address] - [facility] [address]Togr e : FINAL Tamanna Rolon 10/25 Folat e, serum ng/mL 3.0 16.0 Folate greater than 20 FINAL Tamanna noel [address] [id number] Phone: () - 10/25 LDH U/L 120.0 246.0 185 FINAL Tamanna noel [address] [id number] 0 Phone: () - 11/22 CMP Album in g/dL 3.2 5.2 4.5 FINAL Tamanna noel [address] [id number] 0 Phone: () - 11/22 CMP Alkal ine phosp hatas e U/L 46.0 116.0 67 FINAL Tamanna noel [address] [id number] 0 Phone: () - 11/22 CMP ALT/S GPT U/L 7.0 40.0 13 FINAL Tamanna noel [address] [id number] 0 Phone: () - 11/22 CMP AST/S GOT U/L 13.0 40.0 20 FINAL Tamanna noel [address] [id number] 0 Phone: () - 11/22 CMP BUN mg/dL 9.0 23.0 20 FINAL Tamanna noel [address] [id number] 0 Phone: () - 11/22 CMP Calci um mg/dL 8.7 10.4 9.1 FINAL Tamanna noel Oncology [address] [id number] [phone] Phone: () - 11/22 CMP Chlor sathish mmol/L 96.0 114.0 96 FINAL Tamanna noel [address] [id number] 0 Phone: () - 11/22 CMP CO2 mmol/L 20.0 31.0 27 FINAL Tamanna Peters [address] [id number] 0 Phone: () - 11/22 CMP Creat inine mg/dL 0.5 1.2 1.06 FINAL Tamanna noel [address] [id number] 0 Phone: () - 11/22 CMP GFR estim ate ml/min /1.73m ^2 52.8 Low GFR is calculate d using the CKD-EPI equation. FINAL Tamanna Peters [address] [id number] 0 Phone: () - 11/22 CMP Gluco se mg/dL 73.0 126.0 94 FINAL Tamanna noel [address] [id number] 0 Phone: () - 11/22 CMP Potas sium mmol/L 3.5 5.1 5.0 [facility] Tamanna noel [address] [id number] 0 Phone: () - 11/22 CMP Sodiu m mmol/L 136.0 145.0 130 Low FINAL Tamanna noel [address] [id number] 0 Phone: () - 11/22 CMP Bilir ubin, total mg/dL 0.3 1.2 0.5 [facility] Tamanna noel [address] [id number] 0 Phone: () - 11/22 CMP Total prote in g/dL 5.7 8.2 6.7 FINAL Tamanna noel Oncology - [place], [address] [place] [address] [address] [facility] [id number] 0 Phone: () - 11/22 CA 125 panel CA 125 UNITS/ ML 0.0 34.0 8.10 Test performed at [facility] on a [employer] Immunoass ay Analyzer that uses an immunoenz ymometric sandwich assay for analysis. Patient testing should not be performed using multiple methoddanelle soto due to analytica l variation seen between test methoddanelle soto. FINAL Tamanna noel Oncology - [place], [address] [place] [address] [address] [facility] [id number] Phone: () - 11/22 CBC w/ auto diff LY # K/uL 0.4 3.6 1.8 FINAL Tamanna noel Oncology - [facility], [address] [place] [address] 200 [facility] [id number] 0 Phone: () - 11/22 CBC w/ auto diff MO # K/uL 0.2 1.3 0.7 FINAL [facility], [address] [place] [address] 200 [facility] [place] [id number] 0 Phone: () - 11/22 CBC w/ auto diff EO # K/uL 0.0 0.6 0.4 FINAL [facility], [address] [place] [address] 200 [facility] [place] [id number] 0 Phone: () - 11/22 CBC w/ auto diff BA # K/uL 0.0 0.2 0.1 FINAL Tamanna noel Oncology - [place] [facility], [address] [place] [address] 200 [facility] [place] [id number] 0 Phone: () - 11/22 CBC w/ auto diff NRBC % #/100W BC 0.0 0.2 0.0 FINAL [facility] no[facility], [address] [place] [address] 200 [facility] [place] [id number] 0 Phone: () - 11/22 CBC w/ auto diff RBC M/uL 3.9 5.1 4.15 FINAL Tamanna noel Oncology - [place] [facility], [address] [place] [address] 200 [place] [id number] 0 Phone: () - 11/22 CBC w/ auto diff HCT % 35.0 48.0 42.3 FINAL Tamanna noel Oncology - [place], [address] [place] [address] [address] [place] [id number] 0 Phone: () - 11/22 CBC w/ auto diff MCV fL 80.0 104.0 101.9 FINAL Tamanna noel Oncology - [place], [address] [place] [address] [address] [place] [id number] 0 Phone: () - 11/22 CBC w/ auto diff MCH pg 26.0 35.0 33.5 FINAL Tamanna noel Oncology - [place] [facility], [address] [place] [address] [address] [place] [id number] 0 Phone: () - 11/22 CBC w/ auto diff MCHC g/dL 30.0 35.0 32.9 FINAL Tamanna noel Oncology - [place] [facility], [address] [place] [address] [address] [place] [id number] 0 Phone: () - 11/22 CBC w/ auto diff MPV fL 9.5 13.4 9.3 Low FINAL Tamanna noel Oncology - [place] [facility], [address] [place] [address] [address] [place] [id number] 0 Phone: () - 11/22 CBC w/ auto diff RDW % 11.4 16.1 12.70 FINAL Tamanna noel Oncology - [place] [facility], [address] [place] [address] [address] [place] [id number] 0 Phone: () - 11/22 CBC w/ auto diff WBC K/uL 3.0 8.9 8.8 FINAL Tamanna noel Oncology - [place], [address] [place] [address] 200 [place] [id number] 0 Phone: () - 11/22 CBC w/ auto diff HGB g/dL 11.3 15.2 13.9 FINAL Tamanna noel Oncology - [place] [facility], [address] [place] [address] [address] [place] [id number] 0 Phone: () - 11/22 CBC w/ auto diff PLT K/uL 113.0 364.0 197 FINAL Tamanna noel Oncology - [place], [address] [place] [id number] 0 Phone: () - 11/22 CBC w/ auto diff Avtar # (ANC) K/uL 1.6 6.6 5.8 FINAL Tamanna noel Oncology - [place], [address] [place] [id number] 0 Phone: () - 11/22 CBC w/ auto diff Avtar % % 43.0 74.0 66.0 FINAL Tamanna noel Oncology - [place], [address] [place] [address] [address] [place] [id number] 0 Phone: () - 11/22 CBC w/ auto diff IG % % 0.0 0.5 0.5 FINAL Tamanna noel Oncology - [place], [address] [place] [address] [address] [place] [id number] 0 Phone: () - 11/22 CBC w/ auto diff IG # K/uL 0.0 0.03 0.04 High FINAL Tamanna noel Oncology - [place], [address] [place] [id number] 0 Phone: () - 11/22 CBC w/ auto diff LY % % 14.0 41.0 20.2 FINAL Tamanna noel Oncology - [place], [address] [place] [id number] 0 Phone: () - 11/22 CBC w/ auto diff MO % % 6.0 15.0 7.8 FINAL Tamanna noel Oncology - [place], [address] [place] [id number] 0 Phone: () - 11/22 CBC w/ auto diff EO % % 0.0 7.0 4.9 FINAL Tamanna noel Oncology - [place], [address] [place] [id number] 0 Phone: () - 11/22 CBC w/ auto diff BA % % 0.0 2.0 0.6 FINAL Tamanna noel Oncology - [place], [address] [place] [id number] 0 Phone: () - 11/22 [facility] other lab See kilnman d 11/22 [facility] other lab See kilnman d 11/22 [facility] kilnman d 02/11 CBC w/ auto diff WBC K/uL 3.0 8.9 9.2 High FINAL Tamanna noel Oncology - [place], [address] [place] [id number] 0 Phone: () - 02/11 CBC w/ auto diff HGB g/dL 11.3 15.2 13.3 FINAL Tamanna noel Oncology - [place], [address] [place] [id number] 0 Phone: () - 02/11 CBC w/ auto diff PLT K/uL 113.0 364.0 267 FINAL Tamanna noel Oncology - [place], [address] [place] [id number] 0 Phone: () - 02/11 CBC w/ auto diff Avtar # (ANC) K/uL 1.6 6.6 6.1 FINAL Tamanna noel Oncology - [place], [address] [place] [id number] 0 Phone: () - 02/11 CBC w/ auto diff Avtar % % 43.0 74.0 66.8 FINAL Tamanna noel Oncology - [place], [address] [place] [id number] 0 Phone: () - 02/11 CBC w/ auto diff IG % % 0.0 0.5 1.9 High FINAL Tamanna noel Oncology - [place], [address] [place] [id number] 0 Phone: () - 02/11 CBC w/ auto diff IG # K/uL 0.0 0.03 0.17 High FINAL Tamanna noel Oncology - [place], [address] [facility] [place] [id number] 0 Phone: () - 02/11 CBC w/ auto diff LY % % 14.0 41.0 19.2 FINAL Tamanna noel Oncology - [place], [address] [place] [address] 200 [place] [id number] 0 Phone: () - 02/11 CBC w/ auto diff MO % % 6.0 15.0 9.2 FINAL Tamanna noel Oncology - [place], [address] [place] [address] 200 [facility] [place] [id number] 0 Phone: () - 02/11 CBC w/ auto diff EO % % 0.0 7.0 2.5 FINAL Tamanna noel Oncology - [place], [address] [place] [address] 200 [facility] [place] [id number] 0 Phone: () - 02/11 CBC w/ auto diff BA % % 0.0 2.0 0.4 FINAL Tamanna noel Oncology - [place], [address] [place] [address] 200 [facility] [place] [id number] 0 Phone: () - 02/11 CBC w/ auto diff LY # K/uL 0.4 3.6 1.8 FINAL Tamanna noel Oncology - [place], [address] [place] [address] 200 [facility] [place] [id number] 0 Phone: () - 02/11 CBC w/ auto diff MO # K/uL 0.2 1.3 0.8 FINAL Tamanna noel Oncology - [place], [address] [place] [address] 200 [facility] [place] [id number] 0 Phone: () - 02/11 CBC w/ auto diff EO # K/uL 0.0 0.6 0.2 FINAL Tamanna noel Oncology - [place], [address] [place] [address] [address] [place] [id number] 0 Phone: () - 02/11 CBC w/ auto diff BA # K/uL 0.0 0.2 0.0 FINAL Tamanna noel Oncology - [place], [address] [place] [address] 200 [facility] [id number] 0 Phone: () - 02/11 CBC w/ auto diff NRBC % #/100W BC 0.0 0.2 0.2 FINAL Tamanna noel Oncology - [place] [facility], [address] [place] [address] 200 [facility] [place] [id number] 0 Phone: () - 02/11 CBC w/ auto diff RBC M/uL 3.9 5.1 4.09 FINAL Tamanna noel Oncology - [place] [facility], [address] [place] [address] 200 [facility] [place] [id number] 0 Phone: () - 02/11 CBC w/ auto diff HCT % 35.0 48.0 40.6 FINAL Tamnana noel Oncology - [place] [facility], [address] [place] [address] 200 [facility] [place] [id number] 0 Phone: () - 02/11 CBC w/ auto diff MCV fL 80.0 104.0 99.3 FINAL Tamanna noel Oncology - [place] [facility], [address] [place] [address] 200 [facility] [place] [id number] 0 Phone: () - 02/11 CBC w/ auto diff MCH pg 26.0 35.0 32.5 FINAL Tamanna noel Oncology - [place] [facility], [address] [place] [address] 200 [facility] [place] [id number] 0 Phone: () - 02/11 CBC w/ auto diff MCHC g/dL 30.0 35.0 32.8 FINAL Tamanna noel Oncology - [place] [facility], [address] [place] [address] 200 [facility] [place] [id number] 0 Phone: () - 02/11 CBC w/ auto diff MPV fL 9.5 13.4 8.6 Low FINAL Tamanna noel Oncology - [place] [facility], [address] [place] [address] [address] [place] [id number] 0 Phone: () - 02/11 CBC w/ auto diff RDW % 11.4 16.1 14.00 FINAL Tamanna noel Oncology - [place] [facility], [address] [place] [address] 200 [facility] [place] [id number] 0 Phone: () - 02/11 CMP Album in g/dL 3.2 5.2 4.3 FINAL Tamanna noel [address] [id number] 0 Phone: () - 02/11 CMP Alkal ine phosp hatas e U/L 46.0 116.0 53 FINAL Tamanna noel [address] [id number] 0 Phone: () - 02/11 CMP ALT/S GPT U/L 7.0 40.0 14 FINAL Tamanna noel [address] [id number] 0 Phone: () - 02/11 CMP AST/S GOT U/L 13.0 40.0 22 FINAL Tamanna noel [address] [id number] 0 Phone: () - 02/11 CMP BUN mg/dL 9.0 23.0 7 Low FINAL Tamanna Peters [address] [id number] 0 Phone: () - 02/11 CMP Calci um mg/dL 8.7 10.4 9.6 [facility] Tamanna Peters [address] [id number] 0 Phone: () - 02/11 CMP Chlor sathish mmol/L 96.0 114.0 91 Low FINAL Tamanna Peters [address] [id number] 0 Phone: () - 02/11 CMP CO2 mmol/L 20.0 31.0 26 FINAL Tamanna noel [address] [id number] 0 Phone: () - 02/11 CMP Creat inine mg/dL 0.5 1.2 1.03 FINAL Tamanna Mcginnis bert [address] [id number] 0 Phone: () - 06/04 /2021 CMP GFR estim ate ml/min /1.73m ^2 54.5 Low GFR is calculate d using the CKD-EPI equation. FINAL Tamanna Mcginnis[address] [id number] 0 Phone: () - 02/11 CMP Gluco se mg/dL 73.0 126.0 97 FINAL Tamannanithin Rolon [address] [id number] 0 Phone: () - 02/11 CMP Potas sium mmol/L 3.5 5.1 4.5 FINAL Tamanna Kenny [address] [id number] 0 Phone: () - 02/11 CMP Sodiu m mmol/L 136.0 145.0 129 Low FINAL Tamannanithin Mcginnis[address] [id number] 0 Phone: () - 02/11 CMP Bilir ubin, total mg/dL 0.3 1.2 0.4 [facility] [address] [id number] 0 Phone: () - 02/11 CMP Total prote in g/dL 5.7 8.2 6.6 [facility] [address] [id number] 0 Phone: () - 02/11 CA 125 panel CA 125 UNITS/ ML 0.0 34.0 8.70 Test performed at [facility] on a [employer] Immuno[employer] ay Analyzer that uses an immunoenz ymometric sandwich assay for analysis. Patient testing should not be performed using multiple hallie soto due to analytica l variation seen between test hallie soto. FINAL Tamannanithin Mcginnis[address] [phone] 0 Phone: () - 02/11 iSTAT creat inine panel Creat inine , iSTAT mg/dl 0.6 1.3 1.3 [facility], [address] [place] [id number] 0 Phone: () - 02/11 Aldo mulligan inine panel GFR estim ate ml/min /1.73m ^2 41.2 Low GFR is calculate d using the CKD-EPI equation. FINAL Tamanna Peters [facility] [place] [facility], [address] [place] [address] [address] [place] [id number] 0 Phone: () - 02/11 [facility] other lab See kilnman d 05/23 CBC w/ auto diff WBC K/uL 3.0 8.9 8.9 FINAL Harper no[facility] [place], [address] [place] [address] [address] [place] [id number] 0 Phone: () - 05/23 CBC w/ auto diff HGB g/dL 11.3 15.2 15.7 High FINAL Harper neol [facility] [place], [address] [place] [address] [address] [place] [id number] 0 Phone: () - 05/23 CBC w/ auto diff PLT K/uL 113.0 364.0 220 FINAL Harper no[facility] [place], [address] [place] [address] [address] [place] [id number] 0 Phone: () - 05/23 CBC w/ auto diff Avtar # (ANC) K/uL 1.6 6.6 5.5 FINAL Harper no[facility] [place], [address] [place] [address] [address] [place] [id number] 0 Phone: () - 05/23 CBC w/ auto diff Avtar % % 43.0 74.0 62.5 FINAL Harper no[facility] [place], [address] [place] [address] [address] [place] [id number] 0 Phone: () - 05/23 CBC w/ auto diff IG % % 0.0 0.5 0.5 FINAL Harper Mcginnisot [facility] [place], [address] [place] [address] [address] [place] [id number] 0 Phone: () - 05/23 CBC w/ auto diff IG # K/uL 0.0 0.03 0.04 High FINAL Harper Mcginnisot [facility] [place], [address] [place] [address] [address] [place] [id number] 0 Phone: () - 05/23 CBC w/ auto diff LY % % 14.0 41.0 22.5 FINAL Harper Peters [facility] [place], [address] [place] [address] [address] [place] [id number] 0 Phone: () - 05/23 CBC w/ auto diff MO % % 6.0 15.0 8.0 FINAL Harper Mcginnisot [facility] [place], [address] [place] [address] [address] [place] [id number] 0 Phone: () - 05/23 CBC w/ auto diff EO % % 0.0 7.0 5.9 FINAL Harper Mcginnisot [facility] [place], [address] [place] [address] [address] [place] [id number] 0 Phone: () - 05/23 CBC w/ auto diff BA % % 0.0 2.0 0.6 FINAL Harper Mcginnisot [facility] [place], [address] [place] [address] [address] [place] [id number] 0 Phone: () - 05/23 CBC w/ auto diff LY # K/uL 0.4 3.6 2.0 FINAL Harper Peters [facility] [place], [address] [place] [address] [address] [place] [id number] 0 Phone: () - 05/23 CBC w/ auto diff MO # K/uL 0.2 1.3 0.7 FINAL Harper Mcginnisot [facility] [place], [address] [place] [address] [address] [place] [id number] 0 Phone: () - 05/23 CBC w/ auto diff EO # K/uL 0.0 0.6 0.5 FINAL Harper Mcginnisot [facility] [place], [address] [place] [address] [address] [place] [id number] 0 Phone: () - 05/23 CBC w/ auto diff BA # K/uL 0.0 0.2 0.1 FINAL Harper noel [facility] [place], [address] [place] [address] [address] [place] [id number] 0 Phone: () - 05/23 CBC w/ auto diff NRBC % #/100W BC 0.0 0.2 0.0 FINAL [facility] [place] [facility], [address] [place] [address] [address] [place] [id number] 0 Phone: () - 05/23 CBC w/ auto diff RBC M/uL 3.9 5.1 4.85 FINAL Harper no[facility] [place] [facility], [address] [place] [address] [address] [place] [id number] 0 Phone: () - 05/23 CBC w/ auto diff HCT % 35.0 48.0 47.1 FINAL Harper no[facility] [place] [facility], [address] [place] [address] [address] [place] [id number] 0 Phone: () - 05/23 CBC w/ auto diff MCV fL 80.0 104.0 97.1 FINAL Harper no[facility] [place] [facility], [address] [place] [address] [address] [place] [id number] 0 Phone: () - 05/23 CBC w/ auto diff MCH pg 26.0 35.0 32.4 FINAL Harper no[facility] [place] [facility], [address] [place] [address] [address] [place] [id number] 0 Phone: () - 05/23 CBC w/ auto diff MCHC g/dL 30.0 35.0 33.3 FINAL Harper no[facility] [place], [address] [place] [address] [address] [place] [id number] 0 Phone: () - 05/23 CBC w/ auto diff MPV fL 9.5 13.4 9.1 Low FINAL Harper no[facility] [place], [address] [place] [address] [address] [place] [id number] 0 Phone: () - 05/23 CBC w/ auto diff RDW % 11.4 16.1 13.00 FINAL Harper noel [facility] [place], [address] [place] [address] [address] [facility] [id number] 0 Phone: () - 05/23 CMP Album in g/dL 3.2 5.2 4.6 [place]AL [place] [address] [id number] 0 Phone: () - 05/23 CMP Alkal ine phosp hatas e U/L 46.0 116.0 58 FINAL Harper Wheeler [place] [address] [id number] 0 Phone: () - 05/23 CMP ALT/S GPT U/L 7.0 40.0 11 FINAL Harper Wheeler [place] [address] [id number] 0 Phone: () - 05/23 CMP AST/S GOT U/L 13.0 40.0 23 FINAL Harper Wheeler [place] [address] [id number] 0 Phone: () - 05/23 CMP BUN mg/dL 9.0 23.0 15 FINAL Harper Wheeler [place] [address] [id number] 0 Phone: () - 05/23 CMP Calci um mg/dL 8.7 10.4 10.1 FINAL Harper Wheeler [place] [address] [id number] 0 Phone: () - 05/23 CMP Chlor sathish mmol/L 96.0 114.0 88 Low FINAL Harper Wheeler [place] [address] [address] [facility] [address] [id number] 0 Phone: () - 05/23 CMP CO2 [...] the 96 hour stability window. FINAL [place] [address] [id number] 0 Phone: () - 05/23 CMP Creat inine mg/dL 0.5 1.2 0.97 FINAL Harper Wheeler [place] [address] [id number] 0 Phone: () - 05/23 CMP GFR estim ate ml/min /1.73m ^2 58.5 Low GFR is calculate d using the CKD-EPI equation. FINAL Harper Wheeler [place] [address] [id number] 0 Phone: () - 05/23 CMP Gluco se mg/dL 73.0 126.0 72 Low FINAL Harper Wheeler [place] [address] [id number] 0 Phone: () - 05/23 CMP Potas sium mmol/L 3.5 5.1 4.8 FINAL Harper Wheeler [place] [address] [id number] 0 Phone: () - 05/23 CMP Sodiu m mmol/L 136.0 145.0 129 Low FINAL Harper Wheeler [place] [address] [id number] 0 Phone: () - 05/23 CMP Bilir ubin, total mg/dL 0.3 1.2 0.3 FINAL Harper Wheeler [place] [address] [id number] 0 Phone: () - 05/23 CMP Total prote in g/dL 5.7 8.2 7.3 FINAL Harper Wheeler [place] [address] [id number] 0 Phone: () - 05/23 CA 125 panel CA 125 UNITS/ ML 0.0 34.0 7.00 Test performed at [facility] on a [employer] Immunoass ay Analyzer that uses an immunoenz ymometric sandwich assay for analysis. Patient testing should not be performed using multiple methodolo gies due to analytica l variation seen between test methodolo gies. FINAL Harper Peters [facility], [address] [facility] [address] [place] [id number] 0 Phone: () - 05/23 [facility] other lab See kilnman d 08/11 [facility] other lab See kilnman d 11/10 [facility] other lab See kilnman d 11/14 [facility] other lab See kilnman d 11/16 [facility] other lab See kilnman d 02/17 Mis other lab See kilnman d 03/11 [facility] other lab See kilnman d 03/24 [facility] other lab See kilnman d 04/07 [facility] other lab See kilnman d 05/18 CA 125 panel CA 125 UNITS/ ML 0.0 34.0 9.50 Test performed at [facility] on a [employer] computer 2000 Immunoass ay Analyzer that uses an immunoenz ymometric sandwich assay for analysis. Patient testing should not be performed using multiple methodolo gies due to analytica l variation seen between test methodolo gies. FINAL Harper Peters [facility], [address] [facility] [address] [facility] [id number] 0 Phone: () - 11/06 [facility] other lab See kilnman d 11/14 CA 125 panel CA 125 UNITS/ ML 0.0 34.0 12.60 Test performed at [facility] on a [employer] computer 2000 Immunoass ay Analyzer that uses an immunoenz ymometric sandwich assay for analysis. Patient testing should not be performed using multiple methodolo gies due to analytica l variation seen between test methodolo gies. FINAL Harper noel [facility], [address] [facility] [address] [facility] [id number] 0 Phone: () - 02/20 [facility] other lab See kilnman d 05/23 CA 125 panel CA 125 UNITS/ ML 0.0 34.0 10.30 Test performed at [facility] on a [employer] computer 2000 Immunoass ay Analyzer that uses an immunoenz ymometric sandwich assay for analysis. Patient testing should not be performed using multiple methodolo gies due to analytica l variation seen between test methodolo gies. FINAL Pippa Peters [facility] [place], [address] [facility] [address] [facility] [id number] 0 Phone: () - 09/04 [facility] other lab See kilnman d 09/07 CA 125 panel CA 125 UNITS/ ML 0.0 34.0 9.80 Test performed at [facility] on a [employer] computer 2000 Immunoass ay Analyzer that uses an immunoenz ymometric sandwich assay for analysis. Patient testing should not be performed using multiple methodolo gies due to analytica l variation seen between test methodolo gies. FINAL hTeresa Mcginnisot a [facility] [place], [address] [facility] [address] [facility] [id number] 0 Phone: () - 03/17 CA 125 panel CA 125 U/ML 0.0 35.0 12.40 Test performed at [facility] on a [employer] 7600 Immunoass ay Analyzer that uses an immunomet negro immunoass ay technique . Patient testing should not be performed using multiple methodolo gies due to analytica l variation seen between test methodolo gies. FINAL Theresa Peters [facility] [place], [address] [facility] [id number] 0 09/15 CA 125 panel CA 125 U/ML 0.0 35.0 8.60 Test performed at [facility] on a [employer] Immunoass ay Analyzer that uses an immunomet negro immunoass ay technique . Patient testing should not be performed using multiple methodolo gies due to analytica l variation seen between test methodolo gies. FINAL Pippa Peacockjesus elin * [facility] , [address] [facility] [id number] 0 03/17 CA 125 panel CA 125 U/ML 0.0 35.0 8.90 Test performed at [facility] on a [employer] 7600 Immunoass ay Analyzer that uses an immunomet negro immunoass ay technique . Patient testing should not be performed using multiple methodolo gies due to analytica l variation seen between test methodolo gies. FINAL Pippa Garciatammy r * [facility] , [address] [facility] [address] [facility] [id number] 0 Medications Date Name Route Dose Frequency [...] malignant neoplasm of fallopian tube (disorder) 07/05 [id number][id number] invest IV intrave nous 480.0 mg [...] Active Vital Signs Date Type Value 08/04/2019 BMI 33.90 08/04/2019 Height 64.50 08/04/2019 Weight 200.60 08/04/2019 BSA 1.97 08/04/2019 Oxygen Saturation 95.00 08/04/2019 Respiratory Rate 16.00 08/04/2019 Heart Beat 77.00 08/04/2019 Body Temperature 97.90 08/04/2019 Intravascular Systolic 140 08/04/2019 Intravascular Diastolic 72 09/01/2019 Intravascular Systolic 142 09/01/2019 Intravascular Diastolic 84 09/01/2019 Oxygen Saturation 93.00 09/01/2019 Heart Beat 76.00 09/01/2019 Body Temperature 98.10 09/01/2019 BSA 1.96 09/01/2019 BMI 33.63 09/01/2019 Height 64.50 09/01/2019 Weight 199.00 09/01/2019 Respiratory Rate 16.00 09/01/2019 Pain Scale 0.00 09/29/2019 Pain Scale 0.00 09/29/2019 Weight 202.00 09/29/2019 Height 64.50 09/29/2019 BMI 34.14 09/29/2019 BSA 1.98 09/29/2019 Body Temperature 98.10 09/29/2019 Intravascular Systolic 130 09/29/2019 Intravascular Diastolic 72 09/29/2019 Heart Beat 65.00 09/29/2019 Oxygen Saturation 97.00 09/29/2019 Respiratory Rate 16.00 10/27/2019 Respiratory Rate 16.00 10/27/2019 Pain Scale 0.00 10/27/2019 Weight 207.00 10/27/2019 Height 64.50 10/27/2019 Intravascular Systolic 142 10/27/2019 Intravascular Diastolic 80 10/27/2019 BSA 2.00 10/27/2019 Body Temperature 98.50 10/27/2019 Heart Beat 78.00 10/27/2019 Oxygen Saturation 93.00 10/27/2019 BMI 34.98 11/24/2019 Respiratory Rate 16.00 11/24/2019 Pain Scale [...]
--- OUTSIDE RECORDS SUMMARY | 2025-07-20 00:14 | XMS_ITS | Clinical Summary ---
Author Organization [facility] Address [address] [place] [id number] Care Team Providers Care Php Website Developer Name Role Phone Silver Whalen MD Primary Care Provider [phone] Opal Alcantara MD Unavailable [phone] Nurses, Advanced Heart Failure Unavailable + Allergies [...] Months. 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 no premature coronary artery disease. 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 Gender Identity Not on file Sexual Orientation [...] age 65+ Completed 2018 (Completed outside of [facility]) Hepatitis B series for 19+ Aged Out N o longer eligible based on patient's age to complete this topic Medical Devices Implanted Type Area Data Recovery Planner Device Identifier Shelf Expiration Date Model / Serial / Lot Adhesion Barrier 5x6in Seprafilm Absorb - [id number] Implanted:Qty: 1 on 07/11/2018 by Annamarie Massey MD at [facility] [employer] 05/10/2019 4301-02# / / [id number] Adhesion Barrier 5x6in Seprafilm Absorb - [id number] Implanted:Qty: 2 on 07/11/2018 by Annamarie Massey MD at [facility] [employer] 09/09/2019 4301-02# / / [id number] Procedures Procedure Name Priority Date/Time Associated Diagnosis Comments CHOLESTEROL,TOTAL Routine 10/25/2020 1:0 2 PM BULK PLANT AGENT 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) Encounter for examination for normal comparison and control in clinical research program COLONOSCOPY 01/02/2018 11:48 AM CDT from Last 3 Months or Most Recently Relevant to Health Maintenance Results * CHOLESTEROL,TOTAL (10/25/2020 1:02 PM BULK PLANT AGENT) CHOLESTEROL,TO PURVI 142 100 - 199 mg/dL 10/25/2020 5:38 PM BULK PLANT AGENT [facility] PROVIDER ORDERED STATUS RANDOM 10/25/2020 5:38 PM BULK PLANT AGENT [facility] Blood BLOOD SPECIMEN / Unknown 10/25/2020 1:02 PM BULK PLANT AGENT 10/25/2020 5:21 PM BULK PLANT AGENT Tamanna Gonzales [facility] CHEMISTRY Final Result [facility] [address] [place] [address], [place] * COLONOSCOPY (01/02/2018 11:48 AM CDT) 01/02/2018 11:4 8 AM CDT Narrative Transcriptions Alfredito Lyman MD - 01/02/2018 1:14 PM CDT [place] [facility] Patient Name: Monik Gallego Procedure Date: 01/02/2018 Gender: Female Date of : 1950 Admit Type: Inpatient Procedure: Colonoscopy Proceduralist: Alfredito Lyman [facility] Indications/Pre-Op Diagnosis: Hematochezia Medications: General Procedure Description: [...] Relevant to Health Maintenance Insurance BLUE CROSS LIME BLUE HB ONLY BLUE CROSS LIME BLUE MR PB ONLY MEDICARE PART A HB ONLY MEDICARE PART B HB ONLY Advance Directives Documents on File Type Date Recorded 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
--- OUTSIDE RECORDS SUMMARY | 2025-07-20 00:15 | XMS_ITS ---
Author Name Interface, [id number] lity Address [address] [facility] [address] [address] [facility] Oncology Address [address] [address] Allergies and Adverse Reactions Medication/Group Name Reaction [...] APPOINTMENT CT - 605 CT CAP @ [facility] - CHECK IN @10 AM 11/22/2020 [...] uIU/ml 0.32 5.0 1.49 Test performed at [facility] on a [email or web address] Immunoass ay Analyzer that uses an immunoenz ymometric sandwich assay for analysis. Patient testing should not be performed using multiple methodolo gies due to analytica l variation seen between test methodolo gies. FINAL Tamanna Peters [address] [phone] 0 Phone: () - 12/21 CA 125 panel CA 125 UNITS/ ML 0.0 34.0 7.70 Test performed at [facility] on a [email or web address] Immunoass ay Analyzer that uses an immunoenz ymometric sandwich assay for analysis. Patient testing should not be performed using multiple methodolo gies due to analytica l variation seen between test methodolo gies. FINAL Tamanna Peters [address] [phone] Phone: () - 12/21 CBC w/ auto diff WBC K/uL 3.0 8.9 8.3 FINAL Tamanna noel [facility], [address] [place] [address] [address] [place] [id number] 0 Phone: () - 12/21 CBC w/ auto diff HGB g/dL 11.3 15.2 12.1 FINAL Tamanna noel [facility], [address] [place] [address] [address] [place] [id number] 0 Phone: () - 12/21 CBC w/ auto diff PLT K/uL 113.0 364.0 160 FINAL Tamanna noel [facility], [address] [place] [address] [address] [place] [id number] 0 Phone: () - 12/21 CBC w/ auto diff Avtar # (ANC) K/uL 1.6 6.6 4.4 FINAL Tamanna noel [facility], [address] [place] [address] [address] [place] [id number] 0 Phone: () - 12/21 CBC w/ auto diff Avtar % % 43.0 74.0 52.5 FINAL Tamanna noel [facility] - [place], [address] [place] [address] [address] [place] [id number] 0 Phone: () - 12/21 CBC w/ auto diff IG % % 0.0 0.5 0.6 High FINAL Tamanna noel [facility] - [place], [address] [place] [address] [address] [place] [id number] 0 Phone: () - 12/21 CBC w/ auto diff IG # K/uL 0.0 0.03 0.05 High FINAL Tamanna noel [facility] - [place], [address] [place] [address] [address] [place] [id number] 0 Phone: () - 12/21 CBC w/ auto diff LY % % 14.0 41.0 32.3 FINAL Tamanna noel [facility] - [place], [address] [place] [address] [address] [place] [id number] 0 Phone: () - 12/21 CBC w/ auto diff MO % % 6.0 15.0 7.9 FINAL Tamanna noel [facility] - [place], [address] [place] [address] [address] [place] [id number] 0 Phone: () - 12/21 CBC w/ auto diff EO % % 0.0 7.0 5.9 FINAL Tamanna noel [facility] - [place], [address] [place] [address] [address] [place] [id number] 0 Phone: () - 12/21 CBC w/ auto diff BA % % 0.0 2.0 0.8 FINAL Tamanna noel [facility] - [place], [address] [place] [address] [address] [place] [id number] 0 Phone: () - 12/21 CBC w/ auto diff LY # K/uL 0.4 3.6 2.7 FINAL Tamanna noel [facility] - [place], [address] [place] [address] [address] [place] [id number] 0 Phone: () - 12/21 CBC w/ auto diff MO # K/uL 0.2 1.3 0.7 FINAL Tamannanithin noel [facility]cology - [place], [address] [place] [id number] 0 Phone: () - 12/21 CBC w/ auto diff EO # K/uL 0.0 0.6 0.5 FINAL Tamanna noel Oncology - [place], [address] [place] [id number] 0 Phone: () - 12/21 CBC w/ auto diff BA # K/uL 0.0 0.2 0.1 FINAL Tamanna noel Oncology - [place], [address] [place] [id number] 0 Phone: () - 12/21 CBC w/ auto diff NRBC % #/100W BC 0.0 0.2 0.0 FINAL Tamanna noel Oncology - [place], [address] [place] [id number] 0 Phone: () - 12/21 CBC w/ auto diff RBC M/uL 3.9 5.1 3.49 Low FINAL Tamanna noel Oncology - [place], [address] [place] [id number] 0 Phone: () - 12/21 CBC w/ auto diff HCT % 35.0 48.0 35.2 FINAL Tamanna noel [facility] - [place], [address] [place] [id number] 0 Phone: () - 12/21 CBC w/ auto diff MCV fL 80.0 104.0 100.9 FINAL Tamanna noel On[facility] - [place], [address] [place] [id number] 0 Phone: () - 12/21 CBC w/ auto diff MCH pg 26.0 35.0 34.7 FINAL Tamanna noel Oncology - [place], [address] [place] [id number] 0 Phone: () - 12/21 CBC w/ auto diff MCHC g/dL 30.0 35.0 34.4 FINAL Tamanna noel Oncology - [place], [address] [place] [id number] 0 Phone: () - 12/21 CBC w/ auto diff MPV fL 9.5 13.4 9.5 FINAL Tamanna noel [facility] - [place] [facility], [address] [place] [address] 200 [facility] [id number] 0 Phone: () - 12/21 CBC w/ auto diff RDW % 11.4 16.1 12.80 FINAL Tamanna noel [facility], [address] [place] [address] 200 [facility] [id number] 0 Phone: () - 12/21 CMP Sodiu [...] GOT IU/L 2.0 40.0 40 Test Performed by:[facility] [address] [facility], [address] - [facility] [place] [address]Djor e : FINAL Tamannanithin Rolon 12/21 Misc other lab See small products ii assembler d 01/18 CMP Sodiu m mmol/L 135.0 [...] CMP BUN mg/dL 8.0 25.0 17 FINAL Tamanan Kenny 01/18 CMP Creat inine mg/dL 0.57 [...] GOT IU/L 2.0 40.0 34 Test Performed by:[facility] [address], [address] - [place], [place] [address]Lkwm e : FINAL Tamanna Rolon 01/18 TSH panel TSH uIU/ml 0.32 5.0 1.55 Test performed at [facility] on a [employer] 2000 Immunoass ay Analyzer that uses an immunoenz ymometric sandwich assay for analysis. Patient testing should not be performed using multiple methoddanelle soto due to analytica l variation seen between test methoddanelle soto. FINAL Tamanna Peters a Oncology - [place], [address] [facility] [address] [facility] [id number] 0 Phone: () - 01/18 CBC w/ auto diff WBC K/uL 3.0 8.9 8.1 FINAL Tamanna noel Oncology - [facility], [address] [facility] [place] [id number] 0 Phone: () - 01/18 CBC w/ auto diff HGB g/dL 11.3 15.2 11.7 FINAL Tamanna noel Oncology - [place], [address] [place] [address] [address] [place] [id number] 0 Phone: () - 01/18 CBC w/ auto diff PLT K/uL 113.0 364.0 156 FINAL Tamanna noel [facility] - [place], [address] [place] [address] [address] [place] [id number] 0 Phone: () - 01/18 CBC w/ auto diff Avtar # (ANC) K/uL 1.6 6.6 4.3 FINAL Tamanna noel [facility] - [place], [address] [place] [address] [address] [place] [id number] 0 Phone: () - 01/18 CBC w/ auto diff Avtar % % 43.0 74.0 52.3 FINAL Tamanna noel Oncology - [place], [address] [place] [id number] 0 Phone: () - 01/18 CBC w/ auto diff IG % % 0.0 0.5 0.5 FINAL Tamanna noel [facility] - [place], [address] [place] [id number] 0 Phone: () - 01/18 CBC w/ auto diff IG # K/uL 0.0 0.03 0.04 High FINAL Tamanna noel Oncology - [place], [address] [place] [id number] 0 Phone: () - 01/18 CBC w/ auto diff LY % % 14.0 41.0 31.7 FINAL Tamanna noel [facility] - [place], [address] [place] [address] [address] [place] [id number] 0 Phone: () - 01/18 CBC w/ auto diff MO % % 6.0 15.0 10.4 FINAL Tamanna noel [facility] - [place], [address] [place] [address] [address] [place] [id number] 0 Phone: () - 01/18 CBC w/ auto diff EO % % 0.0 7.0 4.5 FINAL Tamanna noel On[facility] - [place], [address] [place] [id number] 0 Phone: () - 01/18 CBC w/ auto diff BA % % 0.0 2.0 0.6 FINAL Tamanna noel [facility] - [place], [address] [place] [address] [address] [place] [id number] 0 Phone: () - 01/18 CBC w/ auto diff LY # K/uL 0.4 3.6 2.6 FINAL Tamanna noel [facility] - [place], [address] [place] [address] [address] [place] [id number] 0 Phone: () - 01/18 CBC w/ auto diff MO # K/uL 0.2 1.3 0.9 FINAL Tamanna noel Oncology - [place], [address] [place] [address] [address] [place] [id number] 0 Phone: () - 01/18 CBC w/ auto diff EO # K/uL 0.0 0.6 0.4 FINAL Tamanna noel [facility] - [place], [address] [place] [address] [address] [place] [id number] 0 Phone: () - 01/18 CBC w/ auto diff BA # K/uL 0.0 0.2 0.1 FINAL Tamanna noel Oncology - [place], [address] [place] [address] [address] [place] [id number] 0 Phone: () - 01/18 CBC w/ auto diff NRBC % #/100W BC 0.0 0.2 0.0 FINAL Tamanna noel [facility] - [place], [address] [place] [address] [address] [place] [id number] 0 Phone: () - 01/18 CBC w/ auto diff RBC M/uL 3.9 5.1 3.36 Low FINAL Tamanna noel [facility] - [place], [address] [place] [address] [address] [place] [id number] 0 Phone: () - 01/18 CBC w/ auto diff HCT % 35.0 48.0 34.2 Low FINAL Tamanna noel [facility] - [place], [address] [place] [address] 200 [place] [id number] 0 Phone: () - 01/18 CBC w/ auto diff MCV fL 80.0 104.0 101.8 FINAL Tamanna noel Oncology - [facility], [address] [place] [address] [address] [place] [id number] 0 Phone: () - 01/18 CBC w/ auto diff MCH pg 26.0 35.0 34.8 FINAL Tamanna noel Oncology - [facility], [address] [place] [address] [address] [place] [id number] 0 Phone: () - 01/18 CBC w/ auto diff MCHC g/dL 30.0 35.0 34.2 FINAL Tamanna noel Oncology - [facility], [address] [place] [address] 200 [facility] [place] [id number] 0 Phone: () - 01/18 CBC w/ auto diff MPV fL 9.5 13.4 9.7 FINAL Tamanna noel Oncology [facility], [address] [place] [address] 200 [facility] [place] [id number] 0 Phone: () - 01/18 CBC w/ auto diff RDW % 11.4 16.1 13.20 FINAL Tamanna noel Oncology [facility], [address] [place] [address] 200 [facility] [place] [id number] 0 Phone: () - 01/18 CA 125 panel CA 125 UNITS/ ML 0.0 34.0 9.40 Test performed at [facility] on a [employer] 2000 Immunoass ay Analyzer that uses an immunoenz ymometric sandwich assay for analysis. Patient testing should not be performed using multiple methoddanelle soto due to analytica l variation seen between test methoddanelle soto. FINAL Tamanna noel Oncology [facility], [address] [facility] [address] [facility] [id number] 0 Phone: () - 01/18 Mis other lab See small products ii assembler d 02/15 CMP Creat inine mg/dL 0.57 [...] e IU/L 50.0 136.0 70 FINAL [facility] CMP ALT/S GPT IU/L 8.0 45.0 17 FINAL [facility]15 CMP AST/S GOT IU/L 2.0 40.0 31 Test Performed by:[facility] [address], [address] - [place], [place] [address]Gsjt e : FINAL Annamarie Smithg ast 02/15 CMP Sodiu m mmol/L 135.0 145.0 134 Low FINAL Ananmarierenny Smithg ast 02/15 CMP Potas sium mmol/L [...] noel Oncology - [place], [address] [place] [address] [address] [place] [id number] 0 Phone: () - 02/15 CBC w/ auto diff HGB g/dL 11.3 15.2 11.8 FINAL Annamarie Mcginnisot a Oncology - [place], [address] [place] [address] [address] [place] [id number] 0 Phone: () - 02/15 CBC w/ auto diff PLT K/uL 113.0 364.0 165 FINAL Annamarie noel [facility] - [place] [facility], [address] [place] [id number] 0 Phone: () - 02/15 CBC w/ auto diff Avtar # (ANC) K/uL 1.6 6.6 5.3 FINAL Annamarie Peters a [facility] - [place] [facility], [address] [place] [address] [address] [place] [id number] 0 Phone: () - 02/15 CBC w/ auto diff Avtar % % 43.0 74.0 57.3 FINAL Annamarie noel Oncology - [place] [facility], [address] [place] [id number] 0 Phone: () - 02/15 CBC w/ auto diff IG % % 0.0 0.5 0.6 High FINAL Annamarie noel Oncology - [place], [address] [place] [address] [address] [place] [id number] 0 Phone: () - 02/15 CBC w/ auto diff IG # K/uL 0.0 0.03 0.06 High FINAL Annamarie Mcginnisot bert Oncology - [place], [address] [place] [address] [address] [place] [id number] 0 Phone: () - 02/15 CBC w/ auto diff LY % % 14.0 41.0 27.4 FINAL Annamarie Mcgininsot a Oncology - [place], [address] [place] [id number] 0 Phone: () - 02/15 CBC w/ auto diff MO % % 6.0 15.0 9.1 FINAL Annamarie noel Oncology - [place], [address] [place] [address] 200 [place] [id number] 0 Phone: () - 02/15 CBC w/ auto diff EO % % 0.0 7.0 5.0 FINAL Annamarie noel Oncology - [place] [facility], [facility] [address] [place] [id number] 0 Phone: () - 02/15 CBC w/ auto diff BA % % 0.0 2.0 0.6 FINAL Annamarie noel Oncology - [place] [facility], [address] [place] [address] 200 [place] [id number] 0 Phone: () - 02/15 CBC w/ auto diff LY # K/uL 0.4 3.6 2.5 FINAL Annamarie noel [facility]cology - [place] [facility], [address] [place] [address] [address] [place] [id number] 0 Phone: () - 02/15 CBC w/ auto diff MO # K/uL 0.2 1.3 0.8 FINAL Annamarie noel Oncology - [place] [facility], [address] [place] [address] [address] [place] [id number] 0 Phone: () - 02/15 CBC w/ auto diff EO # K/uL 0.0 0.6 0.5 FINAL Annamarie noel Oncology - [place] [facility], [address] [place] [address] [address] [place] [id number] 0 Phone: () - 02/15 CBC w/ auto diff BA # K/uL 0.0 0.2 0.1 FINAL Annamarie noel Oncology - [place] [facility], [address] [place] [address] [address] [place] [id number] 0 Phone: () - 02/15 CBC w/ auto diff NRBC % #/100W BC 0.0 0.2 0.0 FINAL Annamarie noel Oncology - [place] [facility], [address] [place] [address] 200 [place] [id number] 0 Phone: () - 02/15 CBC w/ auto diff RBC M/uL 3.9 5.1 3.41 Low FINAL Annamarie noel [facility], [address] [place] [address] 200 [facility] [place] [id number] 0 Phone: () - 02/15 CBC w/ auto diff HCT % 35.0 48.0 35.1 FINAL Annamarie noel [facility], [address] [place] [address] 200 [facility] [place] [id number] 0 Phone: () - 02/15 CBC w/ auto diff MCV fL 80.0 104.0 102.9 FINAL Annamarie noel [facility], [address] [place] [address] 200 [facility] [place] [id number] 0 Phone: () - 02/15 CBC w/ auto diff MCH pg 26.0 35.0 34.6 FINAL Annamarie noel [facility], [address] [place] [address] 200 [facility] [place] [id number] 0 Phone: () - 02/15 CBC w/ auto diff MCHC g/dL 30.0 35.0 33.6 FINAL Annamarie noel [facility], [address] [place] [address] 200 [facility] [place] [id number] 0 Phone: () - 02/15 CBC w/ auto diff MPV fL 9.5 13.4 9.4 Low FINAL Annamarie noel [facility], [address] [place] [address] 200 [facility] [place] [id number] 0 Phone: () - 02/15 CBC w/ auto diff RDW % 11.4 16.1 13.20 FINAL Annamarie noel [facility], [address] [place] [address] 200 [facility] [place] [id number] 0 Phone: () - 02/15 CA 125 panel CA 125 UNITS/ ML 0.0 34.0 8.40 Test performed at [facility] on a [email or web address] Immunoass ay Analyzer that uses an immunoenz ymometric sandwich assay for analysis. Patient testing should not be performed using multiple methodolo ginorris due to analytica l variation seen between test methodolo gies. FINAL Annamarie noel Oncology - [address] [place] [address] [id number] 0 Phone: () - 02/15 TSH panel TSH uIU/mL 0.35 4.94 1.72 In Adults, TSH values between 5.00 and 10.00 uIU/ml do notnecess arily indicate the presence of Hypothyro idism.Cor relation with clinical findings such as presence of goiterand /or Thyropero xidase (TPO) Antibody may be helpful. Formore informati on please refer to KYLAH 2004; 291: 228-238.T est Performed by:[facility] [address] - [place], [place] [address]Rwwh e : FINAL Annamarie rivero 02/15 [facility] See small products ii assembler d 03/15 TSH panel TSH uIU/ml 0.32 5.0 3.10 Test performed at [facility] on a [employer] 2000 Immunoass ay Analyzer that uses an immunoenz ymometric sandwich assay for analysis. Patient testing should not be performed using multiple methodolo gies due to analytica l variation seen between test methodolo gies. FINAL Annamarie noel Oncology - [address] [phone] 0 Phone: () - 03/15 CA 125 panel CA 125 UNITS/ ML 0.0 34.0 8.00 Test performed at [facility] on a [employer] 2000 Immunoass ay Analyzer that uses an immunoenz ymometric sandwich assay for analysis. Patient testing should not be performed using multiple methodolo gies due to analytica l variation seen between test methodolo gies. FINAL Annamarie noel Oncology - [address] [place] [address] [id number] 0 Phone: () - 03/15 CBC w/ auto diff WBC K/uL 3.0 8.9 8.9 FINAL Annamarie noel Oncology - [facility] lis, [address] [place] [id number] 0 Phone: () - 03/15 CBC w/ auto diff HGB g/dL 11.3 15.2 12.1 FINAL Annamarie Mcginnisot a Oncology - [place], [address] [place] [address] [address] [place] [id number] 0 Phone: () - 03/15 CBC w/ auto diff PLT K/uL 113.0 364.0 171 FINAL Annamarie Mcginnisot a Oncology - [place], [address] [place] [address] [address] [place] [id number] 0 Phone: () - 03/15 CBC w/ auto diff Avtar # (ANC) K/uL 1.6 6.6 5.2 FINAL Annamarie Mcginnisot a Oncology - [place], [address] [place] [address] [address] [place] [id number] 0 Phone: () - 03/15 CBC w/ auto diff Avtar % % 43.0 74.0 58.5 FINAL Annamarie Mcginnisot a Oncology - [place], [address] [place] [address] [address] [place] [id number] 0 Phone: () - 03/15 CBC w/ auto diff IG % % 0.0 0.5 0.7 High FINAL Annamarie Mcginnisot a Oncology - [place], [address] [place] [address] [address] [place] [id number] 0 Phone: () - 03/15 CBC w/ auto diff IG # K/uL 0.0 0.03 0.06 High FINAL Annamarie Mcginnisot a Oncology - [place], [address] [place] [address] [address] [place] [id number] 0 Phone: () - 03/15 CBC w/ auto diff LY % % 14.0 41.0 27.2 FINAL Annamarie Mcginnisot a Oncology - [place], [address] [place] [address] [address] [place] [id number] 0 Phone: () - 03/15 CBC w/ auto diff MO % % 6.0 15.0 7.4 FINAL Annamarie Mcginnisot a Oncology - [place], [address] [place] [address] [address] [place] [id number] 0 Phone: () - 03/15 CBC w/ auto diff EO % % 0.0 7.0 5.5 FINAL Annamarierenny Mcginnisot a Oncology - [place] [facility], [address] [place] [id number] 0 Phone: () - 03/15 CBC w/ auto diff BA % % 0.0 2.0 0.7 FINAL Annamarie noel Oncology - [place] [facility], [address] [place] [id number] 0 Phone: () - 03/15 CBC w/ auto diff LY # K/uL 0.4 3.6 2.4 FINAL Annamarie noel Oncology - [place] [facility], [address] [place] [id number] 0 Phone: () - 03/15 CBC w/ auto diff MO # K/uL 0.2 1.3 0.7 FINAL Annamarie noel Oncology - [place] [facility], [address] [place] [id number] 0 Phone: () - 03/15 CBC w/ auto diff EO # K/uL 0.0 0.6 0.5 FINAL Annamarie noel Oncology - [place] [facility], [address] [place] [id number] 0 Phone: () - 03/15 CBC w/ auto diff BA # K/uL 0.0 0.2 0.1 FINAL Annamarie noel Oncology - [place] [facility], [address] [place] [id number] 0 Phone: () - 03/15 CBC w/ auto diff NRBC % #/100W BC 0.0 0.2 0.0 FINAL Annamarie noel Oncology - [place] [facility], [address] [place] [id number] 0 Phone: () - 03/15 CBC w/ auto diff RBC M/uL 3.9 5.1 3.41 Low FINAL Annamarie noel Oncology - [place] [facility], [address] [place] [id number] 0 Phone: () - 03/15 CBC w/ auto diff HCT % 35.0 48.0 35.5 FINAL Annamarie noel Oncology - [place] [facility], [address] [place] [id number] 0 Phone: () - 03/15 CBC w/ auto diff MCV fL 80.0 104.0 104.1 High FINAL Annamarie noel Oncology - [place] [facility], [address] [place] [id number] 0 Phone: () - 03/15 CBC w/ auto diff MCH pg 26.0 35.0 35.5 High FINAL Annamarie noel Oncology - [place] [facility], [address] [place] [id number] 0 Phone: () - 03/15 CBC w/ auto diff MCHC g/dL 30.0 35.0 34.1 FINAL Annamarie noel Oncology - [place] [facility], [address] [place] [id number] 0 Phone: () - 03/15 CBC w/ auto diff MPV fL 9.5 13.4 9.6 FINAL Annamarie noel Oncology - [place] [facility], [address] [place] [id number] 0 Phone: () - 03/15 CBC w/ auto diff RDW % 11.4 16.1 13.00 FINAL Annamarie noel Oncology - [place] [facility], [address] [place] [id number] 0 Phone: () - 03/15 CMP Sodiu m mmol/L 135.0 145.0 133 Low FINAL Annamarierenny Smithg ast 03/15 CMP Potas sium mmol/L 3.5 5.0 4.5 FINAL Annamarierenny Bailonderg ast 03/15 CMP Chlor sathish mmol/L 98.0 110.0 96 Low FINAL Annamarierenny Smithg ast 03/15 CMP CO2 mmol/L 21.0 31.0 29 FINAL Annamarierenny Smithg ast 03/15 CMP Anion gap, mmol/ [...] GOT IU/L 2.0 40.0 29 Test Performed by:[facility] [address] - [facility] [place], [place] [address]Suht e : FINAL Annamarie Zamorano ast 03/15 [facility] [place] See small products ii assembler d 03/15 [facility] [place] [facility] [place] lab See small products ii assembler d 03/24 [facility] [place] [facility] [place] See small products ii assembler d 04/12 CA 125 panel CA 125 UNITS/ ML 0.0 34.0 7.70 Test performed at [facility] on a [employer] 2000 Immunoass ay Analyzer that uses an immunoenz ymometric sandwich assay for analysis. Patient testing should not be performed using multiple methodolo gies due to analytica l variation seen between test methodolo gies. FINAL Annamarie noel [facility], [address] [place] [address] [phone] 0 Phone: () - 04/12 TSH panel TSH uIU/ml 0.32 5.0 1.71 Test performed at [facility] on a [employer] 2000 Immunoass ay Analyzer that uses an immunoenz ymometric sandwich assay for analysis. Patient testing should not be performed using multiple methodolo gies due to analytica l variation seen between test methodolo gies. FINAL Annamarie noel [address] [phone] 0 Phone: () - 04/12 CBC w/ auto diff MCH pg 26.0 35.0 35.0 FINAL Annamarie noel Oncology - [facility], [address] [place] [id number] 0 Phone: () - 04/12 CBC w/ auto diff MCHC g/dL 30.0 35.0 33.1 FINAL Annamarie Mcginnisot bert Oncology - [facility], [address] [place] [address] 200 [place] [id number] 0 Phone: () - 04/12 CBC w/ auto diff MPV fL 9.5 13.4 9.5 FINAL Annamarie Mcginnisot bert [facility]cology [facility], [address] [place] [id number] 0 Phone: () - 04/12 CBC w/ auto diff RDW % 11.4 16.1 12.90 FINAL Annamarie Mcginnisot bert [facility]cology - [facility], [facility] [address] [place] [id number] 0 Phone: () - 04/12 CBC w/ auto diff WBC K/uL 3.0 8.9 8.9 FINAL Annamarie Mcginnisot bert [facility], [address] [place] [id number] 0 Phone: () - 04/12 CBC w/ auto diff HGB g/dL 11.3 15.2 11.8 FINAL Annamarie Mcginnisot a [facility] - [place], [address] [place] [address] [address] [place] [id number] 0 Phone: () - 04/12 CBC w/ auto diff PLT K/uL 113.0 364.0 162 FINAL Annamarie Mcginnisot a [facility] - [place], [address] [place] [address] [address] [place] [id number] 0 Phone: () - 04/12 CBC w/ auto diff Avtar # (ANC) K/uL 1.6 6.6 5.0 FINAL Annamarie Mcginnisot a [facility] - [place], [address] [place] [address] [address] [place] [id number] 0 Phone: () - 04/12 CBC w/ auto diff Avtar % % 43.0 74.0 56.1 FINAL Annamarie Mcginnisot a [facility] - [place], [address] [place] [address] [address] [place] [id number] 0 Phone: () - 04/12 CBC w/ auto diff IG % % 0.0 0.5 0.7 High FINAL Annamarie Mcginnisot a [facility] - [place], [address] [place] [address] [address] [place] [id number] 0 Phone: () - 04/12 CBC w/ auto diff IG # K/uL 0.0 0.03 0.06 High FINAL Annamarie Mcginnisot a [facility] - [place], [address] [place] [address] [address] [place] [id number] 0 Phone: () - 04/12 CBC w/ auto diff LY % % 14.0 41.0 29.0 FINAL Annamarie Mcginnisot a [facility] - [place], [address] [place] [address] [address] [place] [id number] 0 Phone: () - 04/12 CBC w/ auto diff MO % % 6.0 15.0 7.8 FINAL Annamarie Mcginnisot a [facility] - [place], [address] [place] [address] [address] [place] [id number] 0 Phone: () - 04/12 CBC w/ auto diff EO % % 0.0 7.0 5.6 FINAL Annamarie Prenderg ast [place] [facility] - [place], [address] [place] [address] [address] [place] [id number] 0 Phone: () - 04/12 CBC w/ auto diff BA % % 0.0 2.0 0.8 FINAL Annamarie Mcginnisot bert [facility] - [place], [address] [place] [address] [address] [place] [id number] 0 Phone: () - 04/12 CBC w/ auto diff LY # K/uL 0.4 3.6 2.6 FINAL Annamarie Mcginnisot a [facility] - [place], [address] [place] [address] [address] [place] [id number] 0 Phone: () - 04/12 CBC w/ auto diff MO # K/uL 0.2 1.3 0.7 FINAL Annamarie Mcginnisot a [facility] - [place], [address] [place] [address] [address] [place] [id number] 0 Phone: () - 04/12 CBC w/ auto diff EO # K/uL 0.0 0.6 0.5 FINAL Annamarie Mcginnisot a [facility] - [place] [facility], [address] [place] [address] [address] [place] [id number] 0 Phone: () - 04/12 CBC w/ auto diff BA # K/uL 0.0 0.2 0.1 FINAL Annamarie Mcginnisot a [facility] - [place], [address] [place] [address] [address] [place] [id number] 0 Phone: () - 04/12 CBC w/ auto diff NRBC % #/100W BC 0.0 0.2 0.0 FINAL Annamarie Mcginnisot a [facility] - [place], [address] [place] [address] [address] [place] [id number] 0 Phone: () - 04/12 CBC w/ auto diff RBC M/uL 3.9 5.1 3.37 Low FINAL Annamarie Mcginnisot a [facility] - [place], [address] [place] [address] [address] [place] [id number] 0 Phone: () - 04/12 CBC w/ auto diff HCT % 35.0 48.0 35.7 FINAL Annamarie Prenderg ast [place] [facility] [place], [address] [place] [address] [address] [place] [id number] 0 Phone: () - 04/12 CBC w/ auto diff MCV fL 80.0 104.0 105.9 High FINAL Annamarie Mcginnisot bert [facility] - [place], [address] [place] [id number] 0 Phone: () - 04/12 CMP Sodiu [...] Calci um mg/dL 8.5 10.5 9.4 FINAL Annamraie Smith ast 04/12 CMP BUN mg/dL 8.0 [...] GOT IU/L 2.0 40.0 30 Test Performed by:[facility] [address] [facility] [address], [address] - [facility] [place], [place] [id number] e : FINAL Annamarie Zamorano ast 04/12 [facility] [place] See small products ii assembler d 04/12 [facility] [place] See small products ii assembler d 05/10 CBC w/ auto diff BA % % 0.0 2.0 0.5 FINAL Tamanna noel [facility] - [place], [address] [place] [address] [address] [place] [id number] 0 Phone: () - 05/10 CBC w/ auto diff LY # K/uL 0.4 3.6 2.3 FINAL Tamanna noel [facility] - [place], [address] [place] [id number] 0 Phone: () - 05/10 CBC w/ auto diff MO # K/uL 0.2 1.3 0.8 FINAL Tamanna noel [facility] - [place], [address] [place] [id number] 0 Phone: () - 05/10 CBC w/ auto diff EO # K/uL 0.0 0.6 0.5 FINAL Tamanna noel [facility] - [place], [address] [place] [id number] 0 Phone: () - 05/10 CBC w/ auto diff BA # K/uL 0.0 0.2 0.1 FINAL Tamanna noel [facility] - [place], [address] [place] [address] [address] [place] [id number] 0 Phone: () - 05/10 CBC w/ auto diff NRBC % #/100W BC 0.0 0.2 0.0 FINAL Tamanna noel [facility] - [place], [address] [place] [id number] 0 Phone: () - 05/10 CBC w/ auto diff RBC M/uL 3.9 5.1 3.61 Low FINAL Tamanna noel [facility] - [place], [address] [place] [id number] 0 Phone: () - 05/10 CBC w/ auto diff HCT % 35.0 48.0 36.9 FINAL Tamanna noel [facility] - [place], [address] [place] [id number] 0 Phone: () - 05/10 CBC w/ auto diff MCV fL 80.0 104.0 102.2 FINAL Tamanna noel [facility] - [place], [address] [place] [id number] 0 Phone: () - 05/10 CBC w/ auto diff MCH pg 26.0 35.0 35.7 High FINAL Tamanna noel [facility] - [place], [address] [place] [id number] 0 Phone: () - 05/10 CBC w/ auto diff MCHC g/dL 30.0 35.0 35.0 FINAL Tamanna noel [facility] - [place], [address] [place] [address] [address] [place] [id number] 0 Phone: () - 05/10 CBC w/ auto diff MPV fL 9.5 13.4 9.2 Low FINAL Tamanna noel [facility] - [place], [address] [place] [address] [address] [place] [id number] 0 Phone: () - 05/10 CBC w/ auto diff RDW % 11.4 16.1 12.50 FINAL Tamanna noel [facility] - [place], [address] [place] [id number] 0 Phone: () - 05/10 CBC w/ auto diff WBC K/uL 3.0 8.9 10.3 High FINAL Tamanna noel [facility] - [place], [address] [place] [address] [address] [facility] [id number] 0 Phone: () - 05/10 CBC w/ auto diff HGB g/dL 11.3 15.2 12.9 FINAL Tamanna noel [facility] - [place], [address] [facility] [id number] 0 Phone: () - 05/10 CBC w/ auto diff PLT K/uL 113.0 364.0 172 FINAL Tamanna noel [facility] - [place], [address] [place] [address] 200 [facility] [id number] 0 Phone: () - 05/10 CBC w/ auto diff Avtar # (ANC) K/uL 1.6 6.6 6.6 FINAL Tamanna noel [facility] - [place], [address] [place] [address] 200 [facility] [id number] 0 Phone: () - 05/10 CBC w/ auto diff Avtar % % 43.0 74.0 64.3 FINAL Tamanna noel [facility] - [place], [address] [place] [address] [address] [facility] [id number] 0 Phone: () - 05/10 CBC w/ auto diff IG % % 0.0 0.5 0.7 High FINAL Tamanna noel [facility] - [place], [address] [place] [address] 200 [facility] [id number] 0 Phone: () - 05/10 CBC w/ auto diff IG # K/uL 0.0 0.03 0.07 High FINAL Tamanna noel [facility] - [place], [address] [place] [address] 200 [facility] [id number] 0 Phone: () - 05/10 CBC w/ auto diff LY % % 14.0 41.0 22.7 FINAL Tamanna noel [facility] - [place], [address] [place] [address] 200 [facility] [id number] 0 Phone: () - 05/10 CBC w/ auto diff MO % % 6.0 15.0 7.4 FINAL Tamanna noel [facility], [address] [place] [address] [address] [facility] [id number] 0 Phone: () - 05/10 CBC w/ auto diff EO % % 0.0 7.0 4.4 FINAL Tamanna noel [facility], [address] [facility] [id number] 0 Phone: () - 05/10 CA 125 panel CA 125 UNITS/ ML 0.0 34.0 9.80 Test performed at [facility] on a [employer] 2000 Immunoass ay Analyzer that uses an immunoenz ymometric sandwich assay for analysis. Patient testing should not be performed using multiple methodolo gies due to analytica l variation seen between test methodolo gies. FINAL Tamanna noel [facility], [address] [place] [address] [id number] 0 Phone: () - 05/10 TSH panel TSH uIU/ml 0.32 5.0 1.90 Test performed at [facility] on a [employer] 2000 Immunoass ay Analyzer that uses an immunoenz ymometric sandwich assay for analysis. Patient testing should not be performed using multiple methodolo gies due to analytica l variation seen between test methodolo gies. FINAL Tamanna noel [facility], [address] [place] [address] [id number] [phone] Phone: () - 05/10 CMP Sodiu [...] GOT IU/L 2.0 40.0 33 Test Performed by:[facility] [address], [address] - [facility] [place], [place] [id number] e : FINAL Tamanna Rolon 05/10 [facility] [place] [place] See small products ii assembler d 05/10 [facility] [place] See small products ii assembler d 05/25 [facility] [place] See small products ii assembler d 06/07 CMP Sodiu m mmol/L 135.0 145.0 130 Low FINAL Annamarie Prenderg ast 06/07 CMP Potas sium mmol/L 3.5 5.0 4.4 FINAL [facility]07 CMP Chlor sathish mmol/L 98.0 110.0 91 Low FINAL [facility] 06/07 CMP CO2 mmol/L 21.0 31.0 30 FINAL Annamarie [facility] ast 06/07 CMP Anion gap, mmol/ L 5.0 18.0 9.0% FINAL [facility] 06/07 CMP Gluco se mg/dL 65.0 100.0 87 FINAL [facility] 06/07 CMP Calci um mg/dL 8.5 10.5 10.1 FINAL [facility] 06/07 CMP BUN mg/dL 8.0 25.0 12 FINAL Annamarie [facility] ast 06/07 CMP Creat inine mg/dL 0.57 1.11 1.12 High FINAL Annamarie [facility] ast 06/07 CMP BUN/C reati nine ratio 10.0 20.0 11.0% FINAL [facility] ast 06/07 CMP GFR Afric an Ameri can, estim ated ml/min /1.73m 2 58 Low FINAL Annamarie [facility] 06/07 CMP GFR non-A frica n Ameri can, estim ated ml/min /1.73m 2 48 Low FINAL [facility] ast 06/07 CMP Album in g/dL 3.2 4.6 4.2 FINAL [facility] ast 06/07 CMP Total prote in g/dL 6.0 8.0 7.3 FINAL [facility] ast 06/07 CMP Globu samreen g/dL 2.0 3.7 3.1 FINAL [facility] 06[facility]07 CMP A/G ratio 1.0 2.0 1.4% FINAL [facility] ast 06/07 CMP Bilir ubin, total mg/dL 0.2 1.2 0.5 FINAL [facility] ast 06/07 CMP Alkal ine phosp hatas e IU/L 50.0 136.0 63 FINAL [facility] ast 06/07 CMP ALT/S GPT IU/L 8.0 45.0 24 FINAL [facility] ast 06/07 CMP AST/S GOT IU/L 2.0 40.0 44 High Test Performed by:[facility] [facility] [address], [address] - [place], [place] [id number] e : FINAL Annamarie Zamorano ast 06/07 CBC w/ auto diff WBC K/uL 3.0 8.9 9.5 High FINAL Annamarie Mcginnisot a [facility] - [place] [facility], [address] [place] [id number] 0 Phone: () - 06/07 CBC w/ auto diff HGB g/dL 11.3 15.2 12.2 FINAL Annamarie Mcginnisot a [facility], [address] [place] [address] [address] [place] [id number] 0 Phone: () - 06/07 CBC w/ auto diff PLT K/uL 113.0 364.0 166 FINAL Annamarie Mcginnisot a [facility], [address] [place] [address] [address] [place] [id number] 0 Phone: () - 06/07 CBC w/ auto diff Avtar # (ANC) K/uL 1.6 6.6 5.8 FINAL Annamarie Mcginnisot a [facility], [address] [place] [address] [address] [place] [id number] 0 Phone: () - 06/07 CBC w/ auto diff Avtar % % 43.0 74.0 60.6 FINAL Annamarie Mcginnisot a [facility], [address] [place] [address] [address] [place] [id number] 0 Phone: () - 06/07 CBC w/ auto diff IG % % 0.0 0.5 0.7 High FINAL Annamarie Mcg[facility]isot a [facility], [address] [place] [address] [address] [place] [id number] 0 Phone: () - 06/07 CBC w/ auto diff IG # K/uL 0.0 0.03 0.07 High FINAL Annamarie [facility]isot a [facility], [address] [place] [address] [address] [place] [id number] 0 Phone: () - 06/07 CBC w/ auto diff LY % % 14.0 41.0 25.2 FINAL Annamarie Mc[facility] - [place], [address] [place] [address] [address] [place] [id number] 0 Phone: () - 06/07 CBC w/ auto diff MO % % 6.0 15.0 7.7 FINAL Annamarie Mcg[facility]isot [facility] - [place], [address] [place] [address] [address] [place] [id number] 0 Phone: () - 06/07 CBC w/ auto diff EO % % 0.0 7.0 5.1 FINAL Annamarie Mc[facility] - [place], [address] [place] [address] [address] [place] [id number] 0 Phone: () - 06/07 CBC w/ auto diff BA % % 0.0 2.0 0.7 FINAL Annamarie Mc[facility] - [place], [address] [place] [address] [address] [place] [id number] 0 Phone: () - 06/07 CBC w/ auto diff LY # K/uL 0.4 3.6 2.4 FINAL Annamarie [facility] - [place], [address] [place] [address] [address] [place] [id number] 0 Phone: () - 06/07 CBC w/ auto diff MO # K/uL 0.2 1.3 0.7 FINAL Annamarie Mc[facility] - [place], [address] [place] [address] [address] [place] [id number] 0 Phone: () - 06/07 CBC w/ auto diff EO # K/uL 0.0 0.6 0.5 FINAL Annamarie [facility] - [place], [address] [place] [address] [address] [place] [id number] 0 Phone: () - 06/07 CBC w/ auto diff BA # K/uL 0.0 0.2 0.1 FINAL Annamarie rivero [place] [facility] [place], [address] [place] [address] [address] [place] [id number] 0 Phone: () - 06/07 CBC w/ auto diff NRBC % #/100W BC 0.0 0.2 0.0 FINAL Annamarie noel [facility] - [place] [facility], [address] [place] [address] [address] [place] [id number] 0 Phone: () - 06/07 CBC w/ auto diff RBC M/uL 3.9 5.1 3.46 Low FINAL Annamarie noel [facility] - [place] [facility], [address] [place] [address] [address] [place] [id number] 0 Phone: () - 06/07 CBC w/ auto diff HCT % 35.0 48.0 35.6 FINAL Annamarie noel [facility], [address] [place] [address] [address] [place] [id number] 0 Phone: () - 06/07 CBC w/ auto diff MCV fL 80.0 104.0 102.9 FINAL Annamarie noel [facility], [address] [place] [address] [address] [place] [id number] 0 Phone: () - 06/07 CBC w/ auto diff MCH pg 26.0 35.0 35.3 High FINAL Annamarie noel [facility] [place] [facility], [address] [place] [address] [address] [place] [id number] 0 Phone: () - 06/07 CBC w/ auto diff MCHC g/dL 30.0 35.0 34.3 FINAL Annamarie noel [facility] [place] [facility], [address] [place] [address] [address] [place] [id number] 0 Phone: () - 06/07 CBC w/ auto diff MPV fL 9.5 13.4 9.4 Low FINAL Annamarie noel [facility] [place] [facility], [address] [place] [address] [address] [place] [id number] 0 Phone: () - 06/07 CBC w/ auto diff RDW % 11.4 16.1 12.50 FINAL Annamarie Mcginnisot bert [facility] - [place] [facility], [address] [place] [address] [address] [place] [id number] 0 Phone: () - 06/07 CA 125 panel CA 125 UNITS/ ML 0.0 34.0 9.80 Test performed at [facility] on a [employer] 2000 Immunoass ay Analyzer that uses an immunoenz ymometric sandwich assay for analysis. Patient testing should not be performed using multiple methodolo gies due to analytica l variation seen between test methodolo gies. FINAL Annamarie noel [facility], [address] [place] [address] [id number] 0 Phone: () - 06/07 TSH panel TSH uIU/ml 0.32 5.0 3.43 Test performed at [facility] on a [employer] 2000 Immunoass ay Analyzer that uses an immunoenz ymometric sandwich assay for analysis. Patient testing should not be performed using multiple methodolo gies due to analytica l variation seen between test methodolo gies. FINAL Annamarie noel [address] [id number] 0 Phone: () - 06/07 [facility] [place] See small products ii assembler d 07/05 CA 125 panel CA 125 UNITS/ ML 0.0 34.0 9.50 Test performed at [facility] on a [employer] 2000 Immunoass ay Analyzer that uses an immunoenz ymometric sandwich assay for analysis. Patient testing should not be performed using multiple methodolo gies due to analytica l variation seen between test methodolo gies. FINAL Tamanna onel [facility], [address] [place] [address] [id number] 0 Phone: () - 07/05 CBC w/ auto diff BA # K/uL 0.0 0.2 0.1 FINAL Tamanna noel [facility], [address] [place] [address] 200 [facility] [id number] 0 Phone: () - 07/05 CBC w/ auto diff NRBC % #/100W BC 0.0 0.2 0.0 FINAL Tamanna Mcginnis bert [facility], [address] [place] [address] 200 [facility] [id number] 0 Phone: () - 07/05 CBC w/ auto diff RBC M/uL 3.9 5.1 3.54 Low FINAL Tamanna noel [facility], [address] [place] [address] 200 [facility] [id number] 0 Phone: () - 07/05 CBC w/ auto diff HCT % 35.0 48.0 37.0 FINAL Tamanna noel [facility] - [place], [address] [place] [address] [address] [place] [id number] 0 Phone: () - 07/05 CBC w/ auto diff MCV fL 80.0 104.0 104.5 High FINAL Tamanna noel [facility] - [place], [address] [place] [id number] 0 Phone: () - 07/05 CBC w/ auto diff MCH pg 26.0 35.0 35.0 FINAL Tamanna noel [facility] - [place], [address] [place] [id number] 0 Phone: () - 07/05 CBC w/ auto diff MCHC g/dL 30.0 35.0 33.5 FINAL Tamanna noel [facility] - [place], [address] [place] [id number] 0 Phone: () - 07/05 CBC w/ auto diff MPV fL 9.5 13.4 9.5 FINAL Tamanna noel [facility] - [place], [address] [place] [id number] 0 Phone: () - 07/05 CBC w/ auto diff RDW % 11.4 16.1 13.10 FINAL Tamanna noel [facility] - [place], [address] [place] [id number] 0 Phone: () - 07/05 CBC w/ auto diff WBC K/uL 3.0 8.9 10.4 High FINAL Tamanna noel [facility] - [place], [address] [place] [address] [address] [place] [id number] 0 Phone: () - 07/05 CBC w/ auto diff HGB g/dL 11.3 15.2 12.4 FINAL Tamanna noel [facility] - [place], [address] [place] [address] [address] [place] [id number] 0 Phone: () - 07/05 CBC w/ auto diff PLT K/uL 113.0 364.0 177 FINAL Tamanna noel [facility] - [place], [address] [place] [id number] 0 Phone: () - 07/05 CBC w/ auto diff Avtar # (ANC) K/uL 1.6 6.6 6.3 FINAL Tamanna noel [facility] - [place], [address] [place] [id number] 0 Phone: () - 07/05 CBC w/ auto diff Avtar % % 43.0 74.0 61.2 FINAL Tamanna noel [facility] - [place], [address] [place] [id number] 0 Phone: () - 07/05 CBC w/ auto diff IG % % 0.0 0.5 0.7 High FINAL Tamanna noel [facility] - [place], [address] [place] [id number] 0 Phone: () - 07/05 CBC w/ auto diff IG # K/uL 0.0 0.03 0.07 High FINAL Tamanna noel [facility] - [place], [address] [place] [id number] 0 Phone: () - 07/05 CBC w/ auto diff LY % % 14.0 41.0 24.2 FINAL Tamanna noel [facility] - [place], [address] [place] [id number] 0 Phone: () - 07/05 CBC w/ auto diff MO % % 6.0 15.0 8.6 FINAL Tamanna noel [facility] - [place], [address] [place] [id number] 0 Phone: () - 07/05 CBC w/ auto diff EO % % 0.0 7.0 4.5 FINAL Tamanna noel [facility] - [place], [address] [place] [address] [address] [place] [id number] 0 Phone: () - 07/05 CBC w/ auto diff BA % % 0.0 2.0 0.8 FINAL Tamanna noel [facility] - [place], [address] [place] [id number] 0 Phone: () - 07/05 CBC w/ auto diff LY # K/uL 0.4 3.6 2.5 FINAL Tamanna noel On[facility], [address] [place] [address] [address] [facility] [id number] 0 Phone: () - 07/05 CBC w/ auto diff MO # K/uL 0.2 1.3 0.9 FINAL Tamanna noel Oncology [facility], [address] [place] [address] [address] [facility] [id number] 0 Phone: () - 07/05 CBC w/ auto diff EO # K/uL 0.0 0.6 0.5 FINAL Tamanna noel [facility], [address] [place] [address] [address] [facility] [id number] Phone: () - 07/05 TSH panel TSH uIU/ml 0.32 5.0 2.46 Test performed at [facility] on a [email or web address] Immunoass ay Analyzer that uses an immunoenz ymometric sandwich assay for analysis. Patient testing should not be performed using multiple methodolo charles due to analytica l variation seen between test methoddanelle soto. FINAL Tamanna noel Oncology - [place], [address] [place] [address] [address] [facility] [id number] Phone: () - 07/05 CMP Sodiu [...] GOT IU/L 2.0 40.0 36 Test Performed by:[facility] [facility] [address] - [place], [place] [address]Unas e [phone] FINAL Tamanna Rolon 07/05 [facility] [place] See attache lucero 07/13 [facility] [place] See attache lucero 08/02 TSH panel TSH uIU/ml 0.32 5.0 2.38 Test performed at [facility] on a [email or web address] Immunoass ay Analyzer that uses an immunoenz ymometric sandwich assay for analysis. Patient testing should not be performed using multiple hallie soto due to analytica l variation seen between test hallie soto. FINAL Tamanna Mcginnis a Oncology - [address] [facility] [id number] 0 Phone: () - 08/02 CA 125 panel CA 125 UNITS/ ML 0.0 34.0 8.50 Test performed at [facility] on a [employer] 2000 Immunoass ay Analyzer that uses an immunoenz ymometric sandwich assay for analysis. Patient testing should not be performed using multiple methoddanelle soto due to analytica l variation seen between test methoddanelle soto. FINAL Tamanna noel Oncology - [place], [address] [place] [address] 100 [facility] [id number] 0 Phone: () - 08/02 CBC w/ auto diff WBC K/uL 3.0 8.9 9.3 High FINAL Tamanna noel Oncology - [facility], [address] [place] [address] 200 [facility] [id number] 0 Phone: () - 08/02 CBC w/ auto diff HGB g/dL 11.3 15.2 12.5 FINAL Tamanna noel [facility], [address] [place] [address] 200 [facility] [place] [id number] 0 Phone: () - 08/02 CBC w/ auto diff PLT K/uL 113.0 364.0 165 FINAL Tamanna noel [facility], [address] [place] [address] 200 [facility] [place] [id number] 0 Phone: () - 08/02 CBC w/ auto diff Avtar # (ANC) K/uL 1.6 6.6 5.7 FINAL Tamanna noel [facility], [address] [place] [address] 200 [facility] [place] [id number] 0 Phone: () - 08/02 CBC w/ auto diff Avtar % % 43.0 74.0 61.0 FINAL Tamanna noel [facility], [address] [place] [address] 200 [facility] [place] [id number] Phone: () - 08/02 CBC w/ auto diff IG % % 0.0 0.5 0.6 High FINAL Tamanna noel [facility], [address] [place] [address] 200 [facility] [place] [id number] 0 Phone: () - 08/02 CBC w/ auto diff IG # K/uL 0.0 0.03 0.06 High FINAL Tamanna noel Oncology - [place], [address] [place] [address] [address] [place] [id number] 0 Phone: () - 08/02 CBC w/ auto diff LY % % 14.0 41.0 24.1 FINAL Tamanna noel On[facility] - [place], [address] [place] [address] [address] [place] [id number] 0 Phone: () - 08/02 CBC w/ auto diff MO % % 6.0 15.0 8.4 FINAL Tamanna noel Oncology - [place], [address] [place] [address] [address] [place] [id number] 0 Phone: () - 08/02 CBC w/ auto diff EO % % 0.0 7.0 5.1 FINAL Tamanna noel Oncology - [place], [address] [place] [address] [address] [place] [id number] 0 Phone: () - 08/02 CBC w/ auto diff BA % % 0.0 2.0 0.8 FINAL Tamanna noel Oncology - [place], [address] [place] [address] [address] [place] [id number] 0 Phone: () - 08/02 CBC w/ auto diff LY # K/uL 0.4 3.6 2.2 FINAL Tamanna noel Oncology - [place], [address] [place] [address] [address] [place] [id number] 0 Phone: () - 08/02 CBC w/ auto diff MO # K/uL 0.2 1.3 0.8 FINAL Tamanna noel Oncology - [place], [address] [place] [address] [address] [place] [id number] 0 Phone: () - 08/02 CBC w/ auto diff EO # K/uL 0.0 0.6 0.5 FINAL Tamanna noel Oncology - [place], [address] [place] [address] [address] [place] [id number] 0 Phone: () - 08/02 CBC w/ auto diff BA # K/uL 0.0 0.2 0.1 FINAL Tamanna noel Oncology - [place], [address] [place] [address] [address] [place] [id number] 0 Phone: () - 08/02 CBC w/ auto diff NRBC % #/100W BC 0.0 0.2 0.0 FINAL Tamanna noel Oncology - [place], [address] [place] [address] [address] [place] [id number] 0 Phone: () - 08/02 CBC w/ auto diff RBC M/uL 3.9 5.1 3.55 Low FINAL Tamanna noel Oncology - [place], [address] [place] [address] [address] [place] [id number] 0 Phone: () - 08/02 CBC w/ auto diff HCT % 35.0 48.0 37.3 FINAL Tamanna noel Oncology - [place], [address] [place] [address] [address] [place] [id number] 0 Phone: () - 08/02 CBC w/ auto diff MCV fL 80.0 104.0 105.1 High FINAL Tamanna noel Oncology - [place], [address] [place] [address] [address] [place] [id number] 0 Phone: () - 08/02 CBC w/ auto diff MCH pg 26.0 35.0 35.2 High FINAL Tamanna noel Oncology - [place], [address] [place] [address] [address] [place] [id number] 0 Phone: () - 08/02 CBC w/ auto diff MCHC g/dL 30.0 35.0 33.5 FINAL Tamanna noel Oncology - [place], [address] [place] [address] [address] [place] [id number] 0 Phone: () - 08/02 CBC w/ auto diff MPV fL 9.5 13.4 9.6 FINAL Tamanna noel Oncology - [place], [address] [place] [address] [address] [place] [id number] 0 Phone: () - 08/02 CBC w/ auto diff RDW % 11.4 16.1 13.00 FINAL Tamanna neol Oncology - [place], [address] [place] [id number] 0 Phone: () - 08/02 CMP Sodiu [...] GOT IU/L 2.0 40.0 32 Test Performed by:[facility] [address], [address] - [facility] [place], [place] [address]Qvdp e [phone] FINAL Tamanna Rolon [place]02 [facility] [place] See small products ii assembler d 08/13 Mis other lab See small products ii assembler d 08/30 TSH panel TSH uIU/ml 0.32 5.0 2.25 Test performed at [facility] on a [employer] 2000 Immunoass ay Analyzer that uses an immunoenz ymometric sandwich assay for analysis. Patient testing should not be performed using multiple methodolo gies due to analytica l variation seen between test methodolo charles. FINAL Tamanna noel Oncology [facility], [address] [facility] [id number] 0 Phone: () - 08/30 CBC w/ auto diff WBC K/uL 3.0 8.9 8.8 FINAL Tamanna noel [facility], [address] [place] [id number] 0 Phone: () - 08/30 CBC w/ auto diff HGB g/dL 11.3 15.2 12.3 FINAL Tamanna noel [facility], [address] [place] [id number] 0 Phone: () - 08/30 CBC w/ auto diff PLT K/uL 113.0 364.0 161 FINAL Tam[address] noel Oncology [facility], [address] [place] [id number] 0 Phone: () - 08/30 CBC w/ auto diff Avtar # (ANC) K/uL 1.6 6.6 5.6 FINAL Tam[address] noel Oncology [facility], [address] [place] [address] [address] [place] [id number] 0 Phone: () - 08/30 CBC w/ auto diff Avtar % % 43.0 74.0 62.9 FINAL Tamanna noel Oncology - [place], [address] [place] [address] [address] [place] [id number] 0 Phone: () - 08/30 CBC w/ auto diff IG % % 0.0 0.5 0.5 FINAL Tamanna noel Oncology - [place], [address] [place] [address] [address] [place] [id number] 0 Phone: () - 08/30 CBC w/ auto diff IG # K/uL 0.0 0.03 0.04 High FINAL Tamanna noel Oncology - [place], [address] [place] [address] [address] [place] [id number] 0 Phone: () - 08/30 CBC w/ auto diff LY % % 14.0 41.0 23.7 FINAL Tamanna noel Oncology - [place], [address] [place] [id number] 0 Phone: () - 08/30 CBC w/ auto diff MO % % 6.0 15.0 7.2 FINAL Tamanna noel Oncology - [place], [address] [place] [id number] 0 Phone: () - 08/30 CBC w/ auto diff EO % % 0.0 7.0 5.1 FINAL Tamanna noel Oncology - [place], [address] [place] [id number] 0 Phone: () - 08/30 CBC w/ auto diff BA % % 0.0 2.0 0.6 FINAL Tamanna noel Oncology - [place], [address] [place] [address] [address] [place] [id number] 0 Phone: () - 08/30 CBC w/ auto diff LY # K/uL 0.4 3.6 2.1 FINAL Tamanna noel Oncology - [place], [address] [place] [address] [address] [place] [id number] 0 Phone: () - 08/30 CBC w/ auto diff MO # K/uL 0.2 1.3 0.6 FINAL Tamanna noel Oncology - [place], [address] [place] [address] [address] [place] [id number] 0 Phone: () - 08/30 CBC w/ auto diff EO # K/uL 0.0 0.6 0.5 FINAL Tamanna noel Oncology - [place], [address] [place] [address] 200 [place] [id number] 0 Phone: () - 08/30 CBC w/ auto diff BA # K/uL 0.0 0.2 0.1 FINAL Tamanna noel Oncology - [place], [address] [place] [address] 200 [place] [id number] 0 Phone: () - 08/30 CBC w/ auto diff NRBC % #/100W BC 0.0 0.2 0.0 FINAL Tamanna noel Oncology - [place], [address] [place] [address] 200 [place] [id number] 0 Phone: () - 08/30 CBC w/ auto diff RBC M/uL 3.9 5.1 3.53 Low FINAL Tamanna noel Oncology - [place], [address] [place] [address] 200 [place] [id number] 0 Phone: () - 08/30 CBC w/ auto diff HCT % 35.0 48.0 37.1 FINAL Tamanna noel Oncology - [place], [address] [place] [address] 200 [place] [id number] 0 Phone: () - 08/30 CBC w/ auto diff MCV fL 80.0 104.0 105.1 High FINAL Tamanna noel Oncology - [place], [address] [place] [address] 200 [place] [id number] 0 Phone: () - 08/30 CBC w/ auto diff MCH pg 26.0 35.0 34.8 FINAL Tamanna noel Oncology - [place], [address] [place] [address] 200 [place] [id number] 0 Phone: () - 08/30 CBC w/ auto diff MCHC g/dL 30.0 35.0 33.2 FINAL Tamanna noel Oncology - [place], [address] [place] [address] 200 [place] [id number] 0 Phone: () - 08/30 CBC w/ auto diff MPV fL 9.5 13.4 9.7 FINAL Tamanna noel [facility], [address] [place] [id number] 0 Phone: () - 08/30 CBC w/ auto diff RDW % 11.4 16.1 12.40 FINAL Tamanna noel [facility], [address] [facility] [place] [id number] 0 Phone: () - 08/30 Magne sium, mg/dL mg/dL 1.5 2.3 1.5 FINAL Tamanna Mcginnis bert [facility], [address] [place] [address] [place] [address] [id number] 0 Phone: () - 08/30 CA 125 panel CA 125 UNITS/ ML 0.0 34.0 12.90 Test performed at [facility] on a [email or web address] Immunoass ay Analyzer that uses an immunoenz ymometric sandwich assay for analysis. Patient testing should not be performed using multiple methoddanelle soto due to analytica l variation seen between test methoddanelle soto. FINAL Tamanna noel [facility], [address] [place] [address] [place] [address] [id number] [phone] Phone: () - 08/30 Retic ulocy te, absol upper [place] M/uL 0.02 0.08 0.08 FINAL Tamanna noel [facility], [address] [place] [address] [address] [facility] [place] [id number] 0 Phone: () - 08/30 Retic ulocy te count % 0.4 1.6 2.19 High FINAL Tamanna noel [facility], [address] [place] [address] [address] [facility] [place] [id number] 0 Phone: () - 08/30 Immat ure retic ulocy te fract ion, % % 0.0 16.5 20.20 High FINAL Tamanna noel [facility], [address] [place] [address] [address] [facility] [place] [id number] 0 Phone: () - 08/30 Retic ulocy te cellu lar hemog lobin pg 28.0 37.0 38.2 High FINAL [facility], [address] [facility] [place] [id number] 0 Phone: () - 08/30 Folat e, serum ng/mL 3.0 16.0 Folate greater than 20 FINAL Tamanna noel Oncology - [place], [address] [facility] [id number] 0 Phone: () - 08/30 CMP Sodiu [...] GOT IU/L 2.0 40.0 30 Test Performed by:[facility] [address], [address] - [facility] [place], [place] [address]Bjch e : FINAL Tamanna Rolon 08/30 Phosp horus mg/dL 2.3 4.7 2.6 Test Performed by:[facility] [address] - [facility], [place] [address]Qkhs e [phone] FINAL Tamanna Rolon 08/30 Rashida stero l mg/dL 100.0 199.0 146 FINAL Tamanna Rolon 08/30 Chemi strie s Fasti ng statu s RANDOM Test Performed by:[facility] [address] - [facility] [place], [place] [address]Secs e : FINAL Tamanna Rolon 08/30 LDH U/L 120.0 246.0 184 FINAL Tamanna noel Oncology [address] [place] [address] [id number] Phone: () - 09/27 Magne sium, mg/dL mg/dL 1.5 2.3 1.4 Low FINAL Tamanna Peters a Oncology [address] [place] [address] [id number] 0 Phone: () - 09/27 Retic ulocy te, absol upper [place] M/uL 0.02 0.08 0.09 High FINAL Tamannanithin noel Oncology [facility], [address] [place] [id number] 0 Phone: () - 09/27 Retic ulocy te count % 0.4 1.6 2.55 High FINAL Tamanna noel Oncology - [place], [address] 200 [place] [id number] 0 Phone: () - 09/27 Immat ure retic ulocy te fract ion, % % 0.0 16.5 26.30 High FINAL Tamanna noel [facility] - [place] [facility], [address] 200 [place] [id number] 0 Phone: () - 09/27 Retic ulocy te cellu lar hemog lobin pg 28.0 37.0 38.2 High FINAL Tamanna noel [facility] - [place] [facility], [address] [place] [address] 200 [place] [id number] 0 Phone: () - 09/27 CBC w/ auto diff WBC K/uL 3.0 8.9 10.3 High FINAL Tamanna noel On[facility] - [place] [facility], [address] [place] [address] 200 [place] [id number] 0 Phone: () - 09/27 CBC w/ auto diff HGB g/dL 11.3 15.2 12.9 FINAL Tamanna noel On[facility] - [place] [facility], [address] [place] [address] 200 [place] [id number] 0 Phone: () - 09/27 CBC w/ auto diff PLT K/uL 113.0 364.0 190 FINAL Tamanna noel On[facility] - [place] [facility], [address] [place] [address] 200 [place] [id number] 0 Phone: () - 09/27 CBC w/ auto diff Avtar # (ANC) K/uL 1.6 6.6 6.7 High FINAL Tamanna noel [facility] - [place] [facility], [address] [place] [address] 200 [place] [id number] 0 Phone: () - 09/27 CBC w/ auto diff Avtar % % 43.0 74.0 64.3 FINAL Tamanna noel Oncology - [place] [facility], [address] [place] [address] [address] [place] [id number] 0 Phone: () - 09/27 CBC w/ auto diff IG % % 0.0 0.5 0.7 High FINAL Tamanna noel Oncology - [place], [address] [place] [address] [address] [place] [id number] 0 Phone: () - 09/27 CBC w/ auto diff IG # K/uL 0.0 0.03 0.07 High FINAL Tamanna noel Oncology - [place], [address] [place] [address] [address] [place] [id number] 0 Phone: () - 09/27 CBC w/ auto diff LY % % 14.0 41.0 23.6 FINAL Tamanna noel Oncology - [place], [address] [place] [id number] 0 Phone: () - 09/27 CBC w/ auto diff MO % % 6.0 15.0 6.8 FINAL Tamanna noel Oncology - [place], [address] [place] [id number] 0 Phone: () - 09/27 CBC w/ auto diff EO % % 0.0 7.0 4.1 FINAL Tamanna noel Oncology - [place], [address] [place] [id number] 0 Phone: () - 09/27 CBC w/ auto diff BA % % 0.0 2.0 0.5 FINAL Tamanna noel Oncology - [place], [address] [place] [id number] 0 Phone: () - 09/27 CBC w/ auto diff LY # K/uL 0.4 3.6 2.4 FINAL Tamanna noel Oncology - [place], [address] [place] [id number] 0 Phone: () - 09/27 CBC w/ auto diff MO # K/uL 0.2 1.3 0.7 FINAL Tamanna noel Oncology - [place], [address] [place] [address] [address] [place] [id number] 0 Phone: () - 09/27 CBC w/ auto diff EO # K/uL 0.0 0.6 0.4 FINAL Tamanna noel Oncology - [place], [address] [place] [address] [address] [place] [id number] 0 Phone: () - 09/27 CBC w/ auto diff BA # K/uL 0.0 0.2 0.1 FINAL Tamanna noel Oncology - [place], [address] [place] [address] [address] [place] [id number] 0 Phone: () - 09/27 CBC w/ auto diff NRBC % #/100W BC 0.0 0.2 0.0 FINAL Tamanna noel Oncology - [place], [address] [place] [id number] 0 Phone: () - 09/27 CBC w/ auto diff RBC M/uL 3.9 5.1 3.70 Low FINAL Tamanna noel Oncology - [place], [address] [place] [id number] 0 Phone: () - 09/27 CBC w/ auto diff HCT % 35.0 48.0 38.7 FINAL Tamanna noel Oncology - [place], [address] [place] [id number] 0 Phone: () - 09/27 CBC w/ auto diff MCV fL 80.0 104.0 104.6 High FINAL Tamanna noel Oncology - [place], [address] [place] [id number] 0 Phone: () - 09/27 CBC w/ auto diff MCH pg 26.0 35.0 34.9 FINAL Tamanna noel Oncology - [place], [address] [place] [address] [address] [place] [id number] 0 Phone: () - 09/27 CBC w/ auto diff MCHC g/dL 30.0 35.0 33.3 FINAL Tamanna noel Oncology - [place], [address] [place] [address] [address] [place] [id number] 0 Phone: () - 09/27 CBC w/ auto diff MPV fL 9.5 13.4 9.1 Low FINAL Tamanna noel Oncology - [facility], [address] [place] [address] [address] [place] [id number] 0 Phone: () - 09/27 CBC w/ auto diff RDW % 11.4 16.1 12.40 FINAL Tamanna noel [facility], [address] [place] [address] [address] [place] [id number] 0 Phone: () - 09/27 CA 125 UNITS/ ML 0.0 34.0 10.40 Test performed at [facility] on a [employer] 2000 Immunoass ay Analyzer that uses an immunoenz ymometric sandwich assay for analysis. Patient testing should not be performed using multiple methodolo gies due to analytica l variation seen between test methodolo gies. FINAL Tamanna noel Oncology - [place], [address] [place] [address] [id number] 0 Phone: () - 09/27 TSH uIU/ml 0.32 5.0 2.56 Test performed at [facility] on a [email or web address] Immunoass ay Analyzer that uses an immunoenz ymometric sandwich assay for analysis. Patient testing should not be performed using multiple methodolo gies due to analytica l variation seen between test methodolo gies. FINAL Tamanna noel [address] [id number] [phone] Phone: () - 09/27 Rashida stero l mg/dL 100.0 199.0 148 FINAL Tamanna Rolon 09/27 Chemi strie s Fasti ng statu s RANDOM Test Performed by:[facility] [address] - [place], [place] [address]Ignm e [phone] FINAL Tamanna Rolon 09/27 Phosp horus mg/dL 2.3 4.7 2.8 Test Performed by:[facility] [address] - [place], [place] [address]Kjzi e : FINAL Tamanna Rolon 09/27 CMP Sodiu m mmol/L 135.0 145.0 131 Low FINAL Tamanna Rolon 09/27 CMP Potas sium mmol/L 3.5 5.0 4.6 FINAL [facility] 09/27 CMP Chlor sathish mmol/L 98.0 110.0 92 Low FINAL [facility] 09/27 CMP CO2 mmol/L 21.0 31.0 29 FINAL [facility] 09/27 CMP Anion gap, mmol/ L 5.0 18.0 10.0% FINAL [facility] 09/27 CMP Gluco se mg/dL 65.0 100.0 96 FINAL [facility] 09/27 CMP Calci um mg/dL 8.5 10.5 9.0 FINAL [facility] 09/27 CMP BUN mg/dL 8.0 25.0 11 FINAL [facility] 09/27 CMP Creat inine mg/dL 0.57 1.11 1.09 FINAL [facility] 09/27 CMP BUN/C reati nine ratio 10.0 20.0 10.0% FINAL [facility] 09/27 CMP GFR Afric an Ameri can, estim ated ml/min /1.73m 2 60 Low FINAL [facility] 09/27 CMP GFR non-A frica n Ameri can, estim ated ml/min /1.73m 2 50 Low FINAL [facility] 09/27 CMP Album in g/dL 3.2 4.6 4.0 [facility] 09/27 CMP Total prote in g/dL 6.0 8.0 7.0 FINAL [facility] 09/27 CMP Globu samreen g/dL 2.0 3.7 3.0 FINAL [facility] 09/27 CMP A/G ratio 1.0 2.0 1.3% FINAL [facility] 09/27 CMP Bilir ubin, total mg/dL 0.2 1.2 0.4 [facility] 09/27 CMP Alkal ine phosp hatas e IU/L 50.0 136.0 70 FINAL [facility] 09/27 CMP ALT/S GPT IU/L 8.0 45.0 16 [facility] 09/27 CMP AST/S GOT IU/L 2.0 40.0 25 Test Performed by:[facility] [address] - [place], [place] [address]Drnz e : FINAL Tamanna Rolon 09/27 LDH U/L 120.0 246.0 176 FINAL Tamanna noel Oncology - [place], [address] [place] [address] [address] [facility] [id number] Phone: () - 09/27 Folat e, serum ng/mL 3.0 16.0 17.4 High FINAL Tamanna noel Oncology - [place], [address] [place] [address] [address] [place] [id number] 0 Phone: () - 10/25 CBC w/ auto diff WBC K/uL 3.0 8.9 9.3 High FINAL Tamanna noel Oncology - [facility], [address] [place] [id number] 0 Phone: () - 10/25 CBC w/ auto diff HGB g/dL 11.3 15.2 12.9 FINAL Tamanna noel Oncology - [facility], [address] [place] [id number] 0 Phone: () - 10/25 CBC w/ auto diff PLT K/uL 113.0 364.0 162 FINAL Tamanna noel Oncology - [facility], [address] [place] [id number] 0 Phone: () - 10/25 CBC w/ auto diff Avtar # (ANC) K/uL 1.6 6.6 6.1 FINAL Tamanna noel Oncology - [facility], [address] [place] [id number] 0 Phone: () - 10/25 CBC w/ auto diff Avtar % % 43.0 74.0 64.9 FINAL [facility], [address] [place] [address] [address] [place] [id number] 0 Phone: () - 10/25 CBC w/ auto diff IG % % 0.0 0.5 0.5 FINAL Tamanna noel [facility] - [place], [address] [place] [address] [address] [place] [id number] 0 Phone: () - 10/25 CBC w/ auto diff IG # K/uL 0.0 0.03 0.05 High FINAL Tamanna noel On[facility] - [place], [address] [place] [address] [address] [place] [id number] 0 Phone: () - 10/25 CBC w/ auto diff LY % % 14.0 41.0 22.9 FINAL Tamanna noel On[facility] - [place], [address] [place] [address] [address] [place] [id number] 0 Phone: () - 10/25 CBC w/ auto diff MO % % 6.0 15.0 7.1 FINAL Tamanna noel Oncology - [place], [address] [place] [address] [address] [place] [id number] 0 Phone: () - 10/25 CBC w/ auto diff EO % % 0.0 7.0 4.2 FINAL Tamanna noel Oncology - [place], [address] [place] [address] [address] [place] [id number] 0 Phone: () - 10/25 CBC w/ auto diff BA % % 0.0 2.0 0.4 FINAL Tamanna noel On[facility] - [place], [address] [place] [address] [address] [place] [id number] 0 Phone: () - 10/25 CBC w/ auto diff LY # K/uL 0.4 3.6 2.1 FINAL Tamanna noel On[facility] - [place], [address] [place] [address] [address] [place] [id number] 0 Phone: () - 10/25 CBC w/ auto diff MO # K/uL 0.2 1.3 0.7 FINAL Tamanna noel Oncology - [place], [address] [place] [address] [address] [place] [id number] 0 Phone: () - 10/25 CBC w/ auto diff EO # K/uL 0.0 0.6 0.4 FINAL Tamanna noel Oncology - [place], [address] [place] [id number] 0 Phone: () - 10/25 CBC w/ auto diff BA # K/uL 0.0 0.2 0.0 FINAL Tamanna noel Oncology - [place], [address] [place] [id number] 0 Phone: () - 10/25 CBC w/ auto diff NRBC % #/100W BC 0.0 0.2 0.0 FINAL Tamanna noel On[facility] - [place], [address] [place] [id number] 0 Phone: () - 10/25 CBC w/ auto diff RBC M/uL 3.9 5.1 3.70 Low FINAL Tamanna noel [facility] - [place] [facility], [address] [place] [address] 200 [place] [id number] 0 Phone: () - 10/25 CBC w/ auto diff HCT % 35.0 48.0 39.0 FINAL Tamanna noel On[facility] - [place], [address] [place] [id number] 0 Phone: () - 10/25 CBC w/ auto diff MCV fL 80.0 104.0 105.4 High FINAL Tamanna noel [facility] - [place] [facility], [address] [place] [address] 200 [place] [id number] 0 Phone: () - 10/25 CBC w/ auto diff MCH pg 26.0 35.0 34.9 FINAL Tamanna noel On[facility] - [place], [address] [place] [id number] 0 Phone: () - 10/25 CBC w/ auto diff MCHC g/dL 30.0 35.0 33.1 FINAL Tamanna noel [facility] - [place] [facility], [address] [place] [id number] 0 Phone: () - 10/25 CBC w/ auto diff MPV fL 9.5 13.4 9.8 FINAL Tamanna noel Oncology - [place], [address] [place] [id number] 0 Phone: () - 10/25 CBC w/ auto diff RDW % 11.4 16.1 13.10 FINAL Tamanna noel [facility], [address] 200 [facility] [id number] 0 Phone: () - 10/25 Magne sium, mg/dL mg/dL 1.5 2.3 1.9 FINAL Tamanna noel [address] 100 [facility] [id number] 0 Phone: () - 10/25 CA 125 panel CA 125 UNITS/ ML 0.0 34.0 6.90 Test performed at [facility] on a [employer] 2000 Immunoass ay Analyzer that uses an immunoenz ymometric sandwich assay for analysis. Patient testing should not be performed using multiple methodolo gies due to analytica l variation seen between test methodolo gies. FINAL Tamanna noel [address] 100 [facility] [id number] 0 Phone: () - 10/25 TSH uIU/ml 0.32 5.0 2.28 Test performed at [facility] on a [employer] 2000 Immunoass ay Analyzer that uses an immunoenz ymometric sandwich assay for analysis. Patient testing should not be performed using multiple methodolo gies due to analytica l variation seen between test methodolo gies. [facility] Tamanna noel [address] [id number] 0 Phone: () - 10/25 Retic ulocy te, absol upper [place] M/uL 0.02 0.08 0.08 FINAL Tamanna noel [facility], [address] [facility] [phone] Phone: () - 10/25 Retic ulocy te count % 0.4 1.6 2.29 High [facility] Tamanna noel [facility], [address] [facility] [phone] Phone: () - 10/25 Immat ure retic ulocy te fract ion, % % 0.0 16.5 18.50 High FINAL Tamanna noel [facility] [place], [address] [place] [address] [address] [place] [id number] [phone] Phone: () - 10/25 Retic ulocy te cellu lar hemog lobin pg 28.0 37.0 38.2 High FINAL Tamanna noel [facility] [place], [address] [place] [address] [address] [place] [id number] 0 Phone: () - 10/25 CMP Sodiu [...] Album in g/dL 3.2 4.6 4.0 FINAL [facility] 10/25 CMP Total prote in g/dL [...] GOT IU/L 2.0 40.0 29 Test Performed by:[facility] [address], [address] - [facility] [place], [place] [id number] e : FINAL Tamanna Rolon 10/25 Rashida stero l mg/dL 100.0 199.0 142 FINAL Tamanna Rolon 10/25 Chemi strie s Fasti ng statu s RANDOM Test Performed by:[facility] [address], [address] - [facility], [place] [id number] e : FINAL Tamanna Rolon 10/25 Phosp horus mg/dL 2.3 4.7 3.3 Test Performed by:[facility] [address], [address] - [facility], [place] [id number] e [phone] ELKE Rolon 10/25 Folat e, serum ng/mL 3.0 16.0 Folate greater than 20 FINAL Tamanna noel [facility] [address] [place] [address] [place] [id number] 0 Phone: () - 10/25 LDH U/L 120.0 246.0 185 FINAL Tamanna noel [facility] [address] [place] [address] [id number] 0 Phone: () - 11/22 CBC w/ auto diff LY # K/uL 0.4 3.6 1.8 FINAL Tamanna noel [facility] [place], [address] [place] [address] [address] [place] [id number] 0 Phone: () - 11/22 CBC w/ auto diff MO # K/uL 0.2 1.3 0.7 FINAL Tamanna noel [facility] [place], [address] [place] [id number] 0 Phone: () - 11/22 CBC w/ auto diff EO # K/uL 0.0 0.6 0.4 FINAL Tamanna noel [facility] [place], [address] [place] [address] [address] [place] [id number] 0 Phone: () - 11/22 CBC w/ auto diff BA # K/uL 0.0 0.2 0.1 FINAL Tamanna noel [facility] [place], [address] [place] [id number] 0 Phone: () - 11/22 CBC w/ auto diff NRBC % #/100W BC 0.0 0.2 0.0 FINAL Tamanna noel [facility] [place], [address] [place] [id number] 0 Phone: () - 11/22 CBC w/ auto diff RBC M/uL 3.9 5.1 4.15 FINAL Tamanna noel [facility] [place], [address] [place] [id number] 0 Phone: () - 11/22 CBC w/ auto diff HCT % 35.0 48.0 42.3 FINAL Tamanna noel [facility] [place], [address] [place] [id number] 0 Phone: () - 11/22 CBC w/ auto diff MCV fL 80.0 104.0 101.9 FINAL Tamanna noel [facility] [place], [address] [place] [address] [address] [place] [id number] 0 Phone: () - 11/22 CBC w/ auto diff MCH pg 26.0 35.0 33.5 FINAL Tamanna noel [facility] [place], [address] [place] [id number] 0 Phone: () - 11/22 CBC w/ auto diff MCHC g/dL 30.0 35.0 32.9 FINAL Tamanna noel [facility] [place], [address] [place] [address] 200 [place] [id number] 0 Phone: () - 11/22 CBC w/ auto diff MPV fL 9.5 13.4 9.3 Low FINAL Tamanna noel [facility] [place], [address] [place] [address] 200 [place] [id number] 0 Phone: () - 11/22 CBC w/ auto diff RDW % 11.4 16.1 12.70 FINAL Tam[facility] no[facility] [place], [address] [place] [address] 200 [place] [id number] 0 Phone: () - 11/22 CBC w/ auto diff WBC K/uL 3.0 8.9 8.8 FINAL Tamanna noel [facility] [place], [address] [place] [address] 200 [place] [id number] 0 Phone: () - 11/22 CBC w/ auto diff HGB g/dL 11.3 15.2 13.9 FINAL Tamanna noel [facility] [place], [address] [place] [address] 200 [place] [id number] 0 Phone: () - 11/22 CBC w/ auto diff PLT K/uL 113.0 364.0 197 FINAL Tamanna noel [facility] [place], [address] [place] [address] 200 [place] [id number] 0 Phone: () - 11/22 CBC w/ auto diff Avtar # (ANC) K/uL 1.6 6.6 5.8 FINAL Tamanna noel [facility] [place], [address] [place] [address] 200 [place] [id number] 0 Phone: () - 11/22 CBC w/ auto diff Avtar % % 43.0 74.0 66.0 FINAL Tamanna noel [facility] [place], [address] [place] [address] 200 [place] [id number] 0 Phone: () - 11/22 CBC w/ auto diff IG % % 0.0 0.5 0.5 FINAL [facility], [address] [place] [address] 200 [facility] [place] [id number] 0 Phone: () - 11/22 CBC w/ auto diff IG # K/uL 0.0 0.03 0.04 High FINAL Tamanna noel [facility], [address] [place] [address] 200 [facility] [place] [id number] 0 Phone: () - 11/22 CBC w/ auto diff LY % % 14.0 41.0 20.2 FINAL Tamanna noel Oncology - [facility], [address] [place] [address] 200 [facility] [place] [id number] 0 Phone: () - 11/22 CBC w/ auto diff MO % % 6.0 15.0 7.8 FINAL Tamanna noel Oncology - [facility], [address] [place] [address] 200 [facility] [place] [id number] 0 Phone: () - 11/22 CBC w/ auto diff EO % % 0.0 7.0 4.9 FINAL Tamanna noel Oncology - [facility], [address] [place] [address] 200 [facility] [place] [id number] 0 Phone: () - 11/22 CBC w/ auto diff BA % % 0.0 2.0 0.6 FINAL Tamanna noel Oncology - [facility], [address] [place] [address] 200 [facility] [place] [phone] 0 Phone: () - 11/22 CMP Album in g/dL 3.2 5.2 4.5 FINAL Tamanna noel [facility] [address] [id number] 0 Phone: () - 11/22 CMP Alkal ine phosp hatas e U/L 46.0 116.0 67 FINAL Tamanna noel [facility] [address] [id number] 0 Phone: () - 11/22 CMP ALT/S GPT U/L 7.0 40.0 13 FINAL Tamanna Peters [address] [id number] 0 Phone: () - 11/22 CMP AST/S GOT U/L 13.0 40.0 20 FINAL Tamanna Peters [address] [id number] 0 Phone: () - 11/22 CMP BUN mg/dL 9.0 23.0 20 [facility] Tamanna Mcginnis[address] [id number] 0 Phone: () - 11/22 CMP Calci um mg/dL 8.7 10.4 9.1 [facility] Tamanna Mcginnis[address] [id number] 0 Phone: () - 11/22 CMP Chlor sathish mmol/L 96.0 114.0 96 FINAL Tamanna Rolon [address] [id number] 0 Phone: () - 11/22 CMP CO2 mmol/L 20.0 31.0 27 [facility] Tamanna Rolon [address] [id number] 0 Phone: () - 11/22 CMP Creat inine mg/dL 0.5 1.2 1.06 [facility] Tamanna Mcginnis[address] [id number] 0 Phone: () - 11/22 CMP GFR estim ate ml/min /1.73m ^2 52.8 Low GFR is calculate d using the CKD-EPI equation. FINAL Tamanna Rolon [address] [id number] 0 Phone: () - 11/22 CMP Gluco se mg/dL 73.0 126.0 94 [facility] [address] [id number] 0 Phone: () - 11/22 CMP Potas sium mmol/L 3.5 5.1 5.0 FINAL Tamanna noel [address] [id number] 0 Phone: () - 11/22 CMP Sodiu m mmol/L 136.0 145.0 130 Low FINAL Tamanna noel [address] 100 [facility] [id number] 0 Phone: () - 11/22 CMP Bilir ubin, total mg/dL 0.3 1.2 0.5 FINAL Tamanna noel [address] 100 [facility] [id number] 0 Phone: () - 11/22 CMP Total prote in g/dL 5.7 8.2 6.7 FINAL Tamanna noel [address] [id number] 0 Phone: () - 11/22 CA 125 panel CA 125 UNITS/ ML 0.0 34.0 8.10 Test performed at [facility] on a [email or web address] Immunoass ay Analyzer that uses an immunoenz ymometric sandwich assay for analysis. Patient testing should not be performed using multiple hallie soot due to analytica l variation seen between test hallie soto. FINAL Tamanna noel [address] [phone] 0 Phone: () - 11/22 [facility] [place] See small products ii assembler d 11/22 [facility] [place] See small products ii assembler d 11/22 [facility] [place] See small products ii assembler d 02/11 CBC w/ auto diff WBC K/uL 3.0 8.9 9.2 High FINAL Tamanna noel [facility] lis, [address] [place] [id number] 0 Phone: () - 02/11 CBC w/ auto diff HGB g/dL 11.3 15.2 13.3 FINAL Tamanna noel [facility], [address] 200 [place] [id number] 0 Phone: () - 02/11 CBC w/ auto diff PLT K/uL 113.0 364.0 267 FINAL Tamanna noel [facility] [place], [address] [place] [address] [address] [place] [id number] 0 Phone: () - 02/11 CBC w/ auto diff Avtar # (ANC) K/uL 1.6 6.6 6.1 FINAL Tamanna noel [facility] [place], [address] [place] [id number] 0 Phone: () - 02/11 CBC w/ auto diff Avtar % % 43.0 74.0 66.8 FINAL Tamanna noel [facility] [place], [address] 200 [place] [id number] 0 Phone: () - 02/11 CBC w/ auto diff IG % % 0.0 0.5 1.9 High FINAL Tamanna noel [facility] [place], [address] 200 [place] [id number] 0 Phone: () - 02/11 CBC w/ auto diff IG # K/uL 0.0 0.03 0.17 High FINAL Tamanna noel [facility] - [place], [address] 200 [place] [id number] 0 Phone: () - 02/11 CBC w/ auto diff LY % % 14.0 41.0 19.2 FINAL Tamanna noel [facility] - [place], [address] 200 [place] [id number] 0 Phone: () - 02/11 CBC w/ auto diff MO % % 6.0 15.0 9.2 FINAL Tamanna noel [facility] [place], [address] [place] [id number] 0 Phone: () - 02/11 CBC w/ auto diff EO % % 0.0 7.0 2.5 FINAL Tamanna noel [facility] [place], [address] [place] [address] [address] [place] [id number] 0 Phone: () - 02/11 CBC w/ auto diff BA % % 0.0 2.0 0.4 FINAL Tamanna noel [facility] - [place], [address] [place] [id number] 0 Phone: () - 02/11 CBC w/ auto diff LY # K/uL 0.4 3.6 1.8 FINAL Tamanna noel [facility] [place], [address] [place] [id number] 0 Phone: () - 02/11 CBC w/ auto diff MO # K/uL 0.2 1.3 0.8 FINAL Tamanna noel [facility] - [place], [address] [place] [id number] 0 Phone: () - 02/11 CBC w/ auto diff EO # K/uL 0.0 0.6 0.2 FINAL Tamanna noel [facility] [place] [facility], [address] 200 [place] [id number] 0 Phone: () - 02/11 CBC w/ auto diff BA # K/uL 0.0 0.2 0.0 FINAL Tamanna noel [facility] - [place], [address] [place] [id number] 0 Phone: () - 02/11 CBC w/ auto diff NRBC % #/100W BC 0.0 0.2 0.2 FINAL Tamanna noel [facility] - [place], [address] [place] [id number] 0 Phone: () - 02/11 CBC w/ auto diff RBC M/uL 3.9 5.1 4.09 FINAL Tamanna noel [facility] - [place], [address] [place] [id number] 0 Phone: () - 02/11 CBC w/ auto diff HCT % 35.0 48.0 40.6 FINAL Tamanna noel [facility] - [place], [address] [place] [id number] 0 Phone: () - 02/11 CBC w/ auto diff MCV fL 80.0 104.0 99.3 FINAL Tamanna noel [facility] [place] [facility], [address] 200 [place] [id number] 0 Phone: () - 02/11 CBC w/ auto diff MCH pg 26.0 35.0 32.5 FINAL Tamanna noel [facility] - [place] [facility], [address] 200 [place] [id number] 0 Phone: () - 02/11 CBC w/ auto diff MCHC g/dL 30.0 35.0 32.8 FINAL Tamanna noel [facility] - [place] [facility], [address] 200 [place] [id number] 0 Phone: () - 02/11 CBC w/ auto diff MPV fL 9.5 13.4 8.6 Low FINAL Tamanna noel [facility] - [place] [facility], [address] 200 [place] [id number] 0 Phone: () - 02/11 CBC w/ auto diff RDW % 11.4 16.1 14.00 FINAL Tamanna noel [facility] - [place] [facility], [address] 200 [place] [id number] 0 Phone: () - 02/11 CMP Album in g/dL 3.2 5.2 4.3 FINAL Tamanna noel [address] [place] [id number] 0 Phone: () - 02/11 CMP Alkal ine phosp hatas e U/L 46.0 116.0 53 FINAL Tamanna noel [address] [place] [id number] 0 Phone: () - 02/11 CMP ALT/S GPT U/L 7.0 40.0 14 FINAL Tamanna noel [address] [place] [id number] 0 Phone: () - 02/11 CMP AST/S GOT U/L 13.0 40.0 22 FINAL Tamanna noel [address] [place] [id number] 0 Phone: () - 02/11 CMP BUN mg/dL 9.0 23.0 7 Low FINAL Tamanna Mcginnis[address] [id number] 0 Phone: () - 02/11 CMP Calci um mg/dL 8.7 10.4 9.6 [facility] Tamanna Mcginnis[address] [id number] 0 Phone: () - 02/11 CMP Chlor sathish mmol/L 96.0 114.0 91 Low FINAL Tamannanithin Rolon [address] [id number] 0 Phone: () - 02/11 CMP CO2 mmol/L 20.0 31.0 26 [facility] Tamanna Rolon [address] [id number] 0 Phone: () - 02/11 CMP Creat inine mg/dL 0.5 1.2 1.03 [facility] [id number] 0 Phone: () - 02/11 CMP GFR estim ate ml/min /1.73m ^2 54.5 Low GFR is calculate d using the CKD-EPI equation. [facility] Tamanna Rolon [address] [id number] 0 Phone: () - 02/11 CMP Gluco se mg/dL 73.0 126.0 97 [facility] Mc[facility]inn[facility] [id number] 0 Phone: () - 02/11 CMP Potas sium mmol/L 3.5 5.1 4.5 [facility] Tamanna Rolon [address] [id number] 0 Phone: () - 02/11 CMP Sodiu m mmol/L 136.0 145.0 129 Low [facility] [address] [id number] 0 Phone: () - 02/11 CMP Bilir ubin, total mg/dL 0.3 1.2 0.4 FINAL Tamanna noel [facility] [address] 100 [facility] [id number] 0 Phone: () - 02/11 CMP Total prote in g/dL 5.7 8.2 6.6 FINAL Tamanna noel [facility] [address] 100 [facility] [id number] 0 Phone: () - 02/11 CA 125 panel CA 125 UNITS/ ML 0.0 34.0 8.70 Test performed at [facility] on a [employer] 2000 Immunoass ay Analyzer that uses an immunoenz ymometric sandwich assay for analysis. Patient testing should not be performed using multiple methodolo gies due to analytica l variation seen between test methodolo ginorris. FINAL Tamanna noel [facility] [address] [phone] 0 Phone: () - 02/11 iSTAT creat inine panel Creat inine , iSTAT mg/dl 0.6 1.3 1.3 FINAL Tamanna noel [facility] [place], [address] [place] [address] 200 [facility] [id number] 0 Phone: () - 02/11 iSTAT creat inine panel GFR estim ate ml/min /1.73m ^2 41.2 Low GFR is calculate d using the CKD-EPI equation. FINAL Tamanna noel [facility] [place], [address] [place] [address] 200 [facility] [id number] 0 Phone: () - 02/11 Misc other lab See small products ii assembler d 05/23 CBC w/ auto diff WBC K/uL 3.0 8.9 8.9 FINAL Harper noel [facility] [place], [address] [place] [address] 200 [facility] [id number] 0 Phone: () - 05/23 CBC w/ auto diff HGB g/dL 11.3 15.2 15.7 High FINAL Harper noel [facility] [place], [address] [place] [address] [address] [place] [id number] 0 Phone: () - 05/23 CBC w/ auto diff PLT K/uL 113.0 364.0 220 FINAL Harper noel [facility] [place], [address] [place] [address] 200 [place] [id number] 0 Phone: () - 05/23 CBC w/ auto diff Avtar # (ANC) K/uL 1.6 6.6 5.5 FINAL Harper Peters [facility] [place], [address] [place] [address] 200 [place] [id number] 0 Phone: () - 05/23 CBC w/ auto diff Avtar % % 43.0 74.0 62.5 FINAL Harper Peters [facility] [place], [address] 200 [place] [id number] 0 Phone: () - 05/23 CBC w/ auto diff IG % % 0.0 0.5 0.5 FINAL Harper Peters [facility] [place], [address] [place] [address] 200 [place] [id number] 0 Phone: () - 05/23 CBC w/ auto diff IG # K/uL 0.0 0.03 0.04 High FINAL Harper Peters [facility] [place], [address] 200 [place] [id number] 0 Phone: () - 05/23 CBC w/ auto diff LY % % 14.0 41.0 22.5 FINAL Harper Peters [facility] [place], [address] [place] [address] 200 [place] [id number] 0 Phone: () - 05/23 CBC w/ auto diff MO % % 6.0 15.0 8.0 FINAL Harper Mcginnisot a [facility] - [place], [address] [place] [address] [address] [place] [id number] 0 Phone: () - 05/23 CBC w/ auto diff EO % % 0.0 7.0 5.9 FINAL Harper Mcginnisot a [facility] - [place], [address] [place] [address] [address] [place] [id number] 0 Phone: () - 05/23 CBC w/ auto diff BA % % 0.0 2.0 0.6 FINAL Harper noel [facility] [place] [facility], [address] [place] [address] 200 [place] [id number] 0 Phone: () - 05/23 CBC w/ auto diff LY # K/uL 0.4 3.6 2.0 FINAL Harper noel [facility] [place] [facility], [address] [place] [address] 200 [place] [id number] 0 Phone: () - 05/23 CBC w/ auto diff MO # K/uL 0.2 1.3 0.7 FINAL Harper noel [facility] [place] [facility], [address] [place] [address] 200 [place] [id number] 0 Phone: () - 05/23 CBC w/ auto diff EO # K/uL 0.0 0.6 0.5 FINAL Harper noel [facility] [place] [facility], [address] [place] [address] 200 [place] [id number] 0 Phone: () - 05/23 CBC w/ auto diff BA # K/uL 0.0 0.2 0.1 FINAL Harper noel [facility] [place] [facility], [address] [place] [address] 200 [place] [id number] 0 Phone: () - 05/23 CBC w/ auto diff NRBC % #/100W BC 0.0 0.2 0.0 FINAL Harper noel [facility] [place] [facility], [address] [place] [address] 200 [place] [id number] 0 Phone: () - 05/23 CBC w/ auto diff RBC M/uL 3.9 5.1 4.85 FINAL Harper Mcginnis bert [facility] [place] [facility], [address] [place] [address] 200 [place] [id number] 0 Phone: () - 05/23 CBC w/ auto diff HCT % 35.0 48.0 47.1 FINAL Harper Mcginnis bert [facility] [place] [facility], [address] [place] [address] 200 [place] [id number] 0 Phone: () - 05/23 CBC w/ auto diff MCV fL 80.0 104.0 97.1 FINAL Harper noel [facility] [place] [facility], [address] [place] [address] [address] [place] [id number] 0 Phone: () - 05/23 CBC w/ auto diff MCH pg 26.0 35.0 32.4 FINAL Harper noel [facility] [place] [facility], [address] [place] [address] [address] [place] [id number] 0 Phone: () - 05/23 CBC w/ auto diff MCHC g/dL 30.0 35.0 33.3 FINAL Harper [facility], [address] [place] [id number] 0 Phone: () - 05/23 CBC w/ auto diff MPV fL 9.5 13.4 9.1 Low FINAL Harper noel [facility], [facility] [address] [place] [id number] 0 Phone: () - 05/23 CBC w/ auto diff RDW % 11.4 16.1 13.00 FINAL Harper noel Oncology - [facility], [facility] [address] [place] [id number] 0 Phone: () - 05/23 CMP Album in g/dL 3.2 5.2 4.6 FINAL Harper Mcginnis bert [facility], [address] [facility] [address] [place] [address] [id number] 0 Phone: () - 05/23 CMP Alkal ine phosp hatas e U/L 46.0 116.0 58 FINAL Harper [facility]isc[facility] Oncology [facility], [address] [facility] [address] [place] [id number] 0 Phone: () - 05/23 CMP ALT/S GPT U/L 7.0 40.0 11 FINAL Harper Mcginnis bert Oncology [facility], [address] [place] [address] [id number] 0 Phone: () - 05/23 CMP AST/S GOT U/L 13.0 40.0 23 FINAL Harper noel [place] [address] [id number] 0 Phone: () - 05/23 CMP BUN mg/dL 9.0 23.0 15 FINAL Harper noel [place] [address] [id number] 0 Phone: () - 05/23 CMP Calci um mg/dL 8.7 10.4 10.1 FINAL Harper noel [place] [address] [id number] 0 Phone: () - 05/23 CMP Chlor sathish mmol/L 96.0 114.0 88 Low FINAL Harper noel [place] [address] [id number] 0 Phone: () - 05/23 CMP CO2 [...] 96 hour stability window. FINAL Harper noel [place] [address] [id number] [phone] Phone: () - 05/23 CMP Creat inine mg/dL 0.5 1.2 0.97 FINAL Harper noel [place] [address] [id number] 0 Phone: () - 05/23 CMP GFR estim ate ml/min /1.73m ^2 58.5 Low GFR is calculate d using the CKD-EPI equation. FINAL Harper noel [place] [address] [id number] 0 Phone: () - 05/23 CMP Gluco se mg/dL 73.0 126.0 72 Low FINAL [place] [address] [id number] 0 Phone: () - 05/23 CMP Potas sium mmol/L 3.5 5.1 4.8 [facility]AL [facility], [address] [facility] [id number] 0 Phone: () - 05/23 CMP Sodiu m mmol/L 136.0 145.0 129 Low FINAL [facility], [address] [facility] [address] [facility] [id number] 0 Phone: () - 05/23 CMP Bilir ubin, total mg/dL 0.3 1.2 0.3 FINAL [facility], [address] [facility] [address] [facility] [address] [facility] [id number] 0 Phone: () - 05/23 CMP Total prote in g/dL 5.7 8.2 7.3 FINAL Harper Wheeler [facility] [address] [id number] 0 Phone: () - 05/23 CA 125 panel CA 125 UNITS/ ML 0.0 34.0 7.00 Test performed at [facility] on a [email or web address] Immunoass ay Analyzer that uses an immunoenz ymometric sandwich assay for analysis. Patient testing should not be performed using multiple hallie soto due to analytica l variation seen between test hallie soto. FINAL [facility], [address] [id number] 0 Phone: () - 05/23 [facility] [place] See small products ii assembler d 08/11 [facility] [place] See small products ii assembler d 11[place]10 [facility] [place] lab See small products ii assembler d 11/14 [facility] [place] lab See small products ii assembler d 11/16 [facility] [place] lab See small products ii assembler d 02/17 [facility] [place] lab See small products ii assembler d 03/11 [facility] [place] lab See small products ii assembler d 03/24 [facility] [place] lab See small products ii assembler d 04/07 [facility] [place] lab See small products ii assembler d 05/18 CA 125 panel CA 125 UNITS/ ML 0.0 34.0 9.50 Test performed at [facility] on a [employer] 2000 Immunoass ay Analyzer that uses an immunoenz ymometric sandwich assay for analysis. Patient testing should not be performed using multiple methodolo gies due to analytica l variation seen between test methodolo gies. FINAL Harper Peters a [facility] - [place] [address] [facility] [address] [phone] 0 Phone: () - 11/06 [facility] [place] See small products ii assembler d 11/14 CA 125 panel CA 125 UNITS/ ML 0.0 34.0 12.60 Test performed at [facility] on a [employer] 2000 Immunoass ay Analyzer that uses an immunoenz ymometric sandwich assay for analysis. Patient testing should not be performed using multiple methodolo gies due to analytica l variation seen between test methodolo gies. FINAL Harper Wheeler [employer] a Oncology - [place] [address] [phone] 0 Phone: () - 02/20 [facility] [place] [place] See small products ii assembler d 05/23 CA 125 panel CA 125 UNITS/ ML 0.0 34.0 10.30 Test performed at [facility] on a [employer] 2000 Immunoass ay Analyzer that uses an immunoenz ymometric sandwich assay for analysis. Patient testing should not be performed using multiple methodolo gies due to analytica l variation seen between test methodolo gies. FINAL Pippa worthington [employer] ([employer]) a Oncology - [place] [address] [phone] 0 Phone: () - 09/04 [facility] [place] [place] See small products ii assembler d 09/07 CA 125 panel CA 125 UNITS/ ML 0.0 34.0 9.80 Test performed at [facility] on a [employer] 2000 Immunoass ay Analyzer that uses an immunoenz ymometric sandwich assay for analysis. Patient testing should not be performed using multiple methodolo gies due to analytica l variation seen between test methodolo gies. FINAL Theresa worthington SOAK ([employer]) a Oncology - [place], [facility] [address] [place] [address] [phone] Phone: () - 03/17 CA 125 panel CA 125 U/ML 0.0 35.0 12.40 Test performed at [facility] on a Avidia0 Immunoass ay Analyzer that uses an immunomet negro immunoass ay technique . Patient testing should not be performed using multiple methodolo gies due to analytica l variation seen between test methodolo gies. FINAL Theresa worthington * [facility], [address] [place] [address] [address] [phone] 0 09/15 CA 125 panel CA 125 U/ML 0.0 35.0 8.60 Test performed at [facility] on a Advactions 7600 Immunoass ay Analyzer that uses an immunomet negro immunoass ay technique . Patient testing should not be performed using multiple methodolo gies due to analytica l variation seen between test methodolo gies. FINAL Pippa Kenney r * [facility] , [address] [place] [address] [address] [phone] 0 03/17 CA 125 panel CA 125 U/ML 0.0 35.0 8.90 Test performed at [facility] on a Avidia0 Immunoass ay Analyzer that uses an immunomet negro immunoass ay technique . Patient testing should not be performed using multiple methodolo gies due to analytica l variation seen between test methodolo gies. FINAL Pippa Anne Marie r * [facility] , [address] [place] [address] [place] [address] [phone] Medications Date Name Route Dose Frequency [...] malignant neoplasm of fallopian tube (disorder) 11/23 [facility] [id number] invest IV intrave [...]
--- OUTSIDE RECORDS SUMMARY | 2025-07-20 00:15 | XMS_ITS | CCD ---
Author Name Interface, E5Vtwffgb lity Address [address] [facility] [address] [address] Organization [facility] Address [address] [facility] [address] [place] [address] Care Team Providers Care Pastry Artist Name Role Phone Shilpa BASS, Annamarie Estrada [...] U/ML 0.0 35.0 8.90 Test performed at [facility] on a [employer] Immuno[employer] ay Analyzer that uses an immunomet negro immunoass ay technique . Patient testing should not be performed using multiple methodolo gies due to analytica l variation seen between test methoddanelle soto. FINAL Pippa Kenney r * [facility] , [address] [facility] [address] [facility] [id number] 0 Medications Date Name Route Dose Frequency [...] Name Instructions Status 09/15/2024 Physician Order RTC MD/CHIEF PASSENGER SHIP STEWARD/STEWARDESS Ordered 09/17/[address] chest/abdomen /pelvis w/ contrast Ordered 11/13/2024 Physician Order MRI breast w/ & w/o contrast [place]. BRCA2 positive gene mutation. High risk breast cancer screening. Ordered 11/15/2024 Physician Order MRI breast w/ & w/o contrast [place]. BRCA2 positive gene mutation. Ordered 03/15/[address] chest/abdomen /pelvis w/ contrast assess for disease. 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 Follow-Up <html><head></head><body><div style=text-align:center><span class=clinicalNoteMacroWysiwyg id=[id number] macroname=&quo t;PracticeLetterhead spantype=macro title=#PracticeLetterhead><img src=data:image/png;base64,cMDKNj4YIdvPPIFKIVbMQoGORYOQVGJdSHLWXRI3M1wLFSKXMNVMW 5WHyz8j8CRML ZWpZR4RUPCcxvh1ITSQQJSYuExGkdLWCnFBTF0KFXTcFmlCNEuVAQHPYHay4G0LyIH6MngABjevdtY5G lKlIyBSRSwgCkiTIvpQV ZXGTZVsSsEZOCtrXcpEvVClOVCZ0ManAn2ZGkysY+u8/Teu1qic2j23T32ExbgrxpasvBvQFaUE9xvFs ZITHFtKIubEqlPxK8PyY MN4jL/bQmbCNUbMbEBiGLIfoOFVXNCePJFIBMXSabPHd5BPxwPZg/mSJzIEAUoNE3aCj1GkyIa5Ou2qe LvXmDqnqhMMnNJmt73FX kgeKPFZu2xcBTONyDdtuMQoRi1pP2gBiFutPW1irLJCvhn85dnhcdPB7qySCMo5c3DFn6fkdGc12cKUO qGcWbRi1K9xLnbgXeIAL Jj1VUgY4oaooPl2iFsyc9gOKkLZDFsBoEjAhefLNScAplE4fP1fbb19uPNkS/MaBNqqv1VOy3igy8Ed5 6oQw1x/sABhrlu+/vpru z7473H/dZXOhWljVhoJa2fJAtLkryeqDYOKASVJ+AdQYHAQBQQQrV7+EU0e+zHyVAoU88CUyhdgTh9Ij 20BLgA0Hypun7+pSZPG0 t+xRx8a//4jAbrEGrIREwAKr5+i1A6CNllIt59r+0IoRLrZdlGZmQ59gDtrwOu++/btVL9+felnmOsJF iDMdUdGRgYFBQVJ/wPPv MnKagsBOyhHTlYFKNvIR3U8Qd0in4/FL8JXqe5rAg+RofzgfVTY9sxAIAzpETUeB2q4odinnaTiQH2v3 Eowx33iW4EQmw7X161xL tSM6LASFWunWFKatzKwEq1pwWm6kW76MVSnSgeGME+0ef92cDzJfWnvgT2luYNu/wpWrFhB8+fPp/Xr1 7YqCsQIqFoHWm20xVQtr azonQCM51OiJErB29K/xspOqxb4WwHECLFXqFGBxR7pEiYdCPHCpGAyWl9bb93dwSgzFjEes5MbYGE02 OIlhUVTB9icij0IQbWYk tDwhqKBsdTPFgWg5Fg07wu1JXzNJrrUsMctoYtQY9x2/JHoMDtm9gBpCz+3k62djxscMvKwcVIjWcR3H oAvXiLgNvGe49eEoZDQQ uXIy9dvkD4LfkP9Xh1qc0b+nlx9SYJRGOANmKUYHZhjJjMg38//bcTnTSKW9L7hkqATtHGeITFDG7SnE 7iHyX891lspefLlVIj83 jbaHeC0O31iZr1y6j6mpf+izEsYR8kdphoSd155Ht/MuuvcGo1fhKUPfAzO6jFFND1PDLB2TWo3Uds3B pIioqLpu4+Y7Q45MhV9L W+gD2e+JoVHk4gITS7DNq9A50M6lM3pT8C4r++W1+qXHKzVWk05ZV9yxSDtgfrCmWYHZCVLcxLpsma6v FaOQms7hcQ3vDbWHYNW2 d9+s8Nm78iEE3SlEswDj4708z/IMNadTzO+KZQOtdVv035VJyXMi66UIaHBUxcZq0/x8qixZf0GoMPSh 3PrlVwuCQrrncDarh94x g/HMLjRdBMUduISdhPxjI5sHjN0ZUr62ACq3gDqO7FFFsmTJbSDSdiui41/MNAY/iY3V9mDHOoRGsaJP +cafn7+tq2RHuQFgrMVU BI5KuGbwLH4f30cu4RiBtWMP565Z3TkqDMOGWDknXG4sMKEUCyz9YkAsrHJq8IsTQ3MGd35OvkNcwYUI 6W/ov18yLlvYsr48Opkr HCX0uuMi0r/aDpo7FWUUisFw1VK9xpZY6eKwz0naTllAUWJg2RYTnWqlZhk0dfbhllY2Ey3qaVbbk57A a4kFJBYDUi1K/d9zV53z KNEPHxDqCipMykFH9s++xjk2zgubkWsK7HnxWbVUUlNPJTfQNQywKRDdlZQqGJEXOdDkQTVb//9dxXrG gy2//uff8R3T3ORibddX Kl0knyR1xIZbO6cmoaNV5r5dbEAGGf+/85CgPfWZq8gcMyRVMpDvtE36KHBYfX4kQedo70+wZ2DA7FHh zUiBPwBSp7KOL8walnwy sa0qDaDqaEEiCgxornssc9XWU+Ex+QXiX7/g+jL1LOqFIdMyTbC5NXFN2luQzfwRdtOsapyGo0m4erkh Du77JOGy9/H7MUdT0cCT AsQpsCwc+vG1ECJ7JfNsmVX6TfYyFFx46kEtKnaI338fEw1y86rTiGgXLPapN7xJbRMd4EXpQBV8LveD eUqVdQexwwdOlRuddeZO /OIslMsur3IqbI0LxWlETSBl6+jIFBVquzFbZaM5PwoaoXXpcplLkMPjIQ9/PhxGd+wXxXvg9euNaDf8 eowdz6KtFqWfJILInpli z+RG22tW5XPEZZyMzdwnPcaxraUbT1DPSlbKmRRqiamUQPpOMNmJUxuzsk8xFJ/h50IkzuDGf0lsRh+c jT4vMbNSbNoMEN746fCC aOQGQj0BXuZxmIPg+5nxzeMkrCIhl1YuHgywG/861GU9uc4fDvZBQliRmVNIWB1JWdTFG8JABiHHl3GZ fLSFve7x+jlR1Zg263pH 0861lwBE2U1e+5e7s1Nk8lcQbsv/bvPxPeGZToN9Vd+0XmEAo91owKDAcbR2iOOXInisNnDeBAXKZyBr ut1Hjvcj3dJHPPb8kWu7 oIyzCO89tmhD3k2djdAFUZqgPEK8p4EAwq5j03SZIacDA7CFmLBijb516uPlaRTH2CjU3nY9RXynqHhW WriwAA/ChCl+MDhwzTsi ScoICCAbqhRnSa8+QWn37eUopgmh3/IcOOGLSSfmB6rmOaa8ShGKyR7eXizK6JlWUrNs4EYDeiNJhBoi OGwtTr/oAAKDQ+j0qVKU ZoSyBt7F9MyNqaBuBGJO6icfBym/nLxoDcX9s5+rSVyWyp59hdo62d2uBlitZDnZ46xv3zDuFkUfInJQ Dj+silwSpYsKbcMUyAQL KvPZZWuPMPOTAEw8Xx1y3jqtLgn4fse3aJu6n8XKGwOfGjQ0ny8G5YGWMA5Lkp2j6H3eUoigbi84nHXb jTKJoFiU0dGpxrCGmXab va4uzB5HNcw5SxN95duBT5/c5fRf+ATLrbxUKzixwzlK7haAjmHOIG4iYb4dhMZ/R8DOYJSyNn9KWach qJlH+eokDvffoex/ocfV BwWaUJkF6RqmcUwdChPjeChi1o3K5XMFQgGPY9ZwhkUFDkaAnAdC8+BzLtpo+ihBWRYqExwFtnm2w97k tx27536jd2mxg+MkqVKS z/WKAE9FhYHjXDx9KUTvrpU8rnyBsKZUL2D0QU/csadIeYgLTTmd4ZIv6jQPJK2zXBA85uHT5uaaiV0b nMLbVy/gZIyDWm+mxcEB KZQtQJE30FhyTD1bmMzKqWarNHwoiO3+QRJEtFUp0HogBGAu/dgAXbPkGGOV7rYbjoCQ9hGYBnNlGh96 +9XIYbJ//AYCFMgyMjIl ZSWmwE6hBkLBipFUQz6uwZczD/HxIEqqCnXr0eLXxc0CHL9xB8jX7vAwQZt6PTOn5HIE+NGLMi4sPYv9 jUfQ7UZp/3128u8l5h6d mEYmD1DXIeXU6KX+w+Lr0M6WORE7HXqd35WT46zIYLoRKW2+w+B5ZGJSQopTNxTHDXXkOzHgwof3aqEE OGaMqmXywGyEVGwlAc7t 32zAUl5WGpnwUUTsmKTXSaiysxBdT6oFhYjUTLfj3s0QN6P2YvD9eP6hJb8kDEz1RoadYa+nurUrUcLl nMNMjss5U/tsuP0Vc1F2 leoxzl8CDmTQeJoOCXa8BXQL1hAvZ/TBOjwChFEfcDR4Hs9e8vqj6Bx7N6omlOZJfNCH7lP9+QWVkxYX 7c8XNxXpwd/RlGC76ivg seWa9eF+MwNE0YlCTWNDfT/IEa26IYmrLCOhqS7Go58DT1OUB344vuSR0rO1ADlWZ7eeJgth52JrwMv+ yAR5TOYWNgQ7wANR3wg/ HbKF0VBqvKiCq+eTQ89+NU3X20nYDclrDh19Wlarc04UDBBMfYEbi6KXOtDnhKWGvvKxTQgSqbVEp2Kf 4WGhdGvew/Yrv6wJV665 MZqGIztCPoacgUFxPfuFYo1WBFdOi4Ld8vFKkii+6mn7yiX3V66W5IoCrMpT4SmjPnazbTM2BpE7+bNk 36GyY/hDTrDY3RRueyhb LP03z/6ZbrvqdEUd+5xEJbHaFmsJRiFtsIo2FCijUz/lk4nZX/wOVT5jI2hP6r0PbFX9o5qe6WZSyUuQ CudM0ZxGLVcRPMacFxqY l6iPCsj9QzvLpYNHWnF51XTzpVpnx96c057q9i/exsB9NSPOpB0ZyDQR6wjWwqOk2dCiSrGelI7wIFvA 5t5DPiLOr+iv7VRs/FNN HXtFrp0+hz6fGT/ORIyLKlchYEnR76VEba4KWWAYLUGpw2+jCFMGaKzXkLtYYFzEJqxGS0CWcPtNqmYT v43lnR/ob4m8PQILNyPo b7B0VG7/QRMVb5YdNxAZOB4BKXnX85A4XlolUpFYnWd+z8p/eVWdxX0YP9/UrQzDV0l15tZ/x1PrkZyw uRHuAuLyXcMHDhQ+YiGv 3uXUp32HKgGFWVnESoyzvnae8Qha+X+imWpydwQrNCSKDO7gQk97jwVPepWW5nk12ZaZcHn6/kPg+U4d 9P5rSbA+LhLdM/td1Ksu MfDo9LAVt4/1DC5r+5QjdksHXWJH1rwlz6syGCF7xxR1E+ggyF42NNQdmVROECaxFta/Wtxzj8Bq1hgh hiABhOxkE2XGhgzBTfNv CgENe0oAxg/XEJHzsRRTOFgeuPtObR+qFh0J2edxIgygXUfRofVNehcizWT1PMUjcOgYeHzlqUX4105D z8GhVyaUsAm6S8U4FZCg btoTRrjfPtnwBq5XZckT9yczEWl0AhHkgJDrvdYZVRZS5pj3YMEbnSQMCJrMQBbnlGGkfs1IILfXCYzP FhoYIKm3oYvHSuCwZsRS pNKbacIPcqksuymEdR2Md6sMSkoVo4VAq+Y8dYnQWW3O612E5LY3yhqvt4GeKP4dLr8UB/ycCp0GXNaM ZssFGhJxZRlxHR8eLjFk oyIF8guPbHKgYY/72Fw0lbhZNb0mjdPb5IImBFvrqDwapiJwrXqflAuiGH6hPuj6v6+ZEA5BY66nBN7s 1FdHvPVCtHuVyvtRkWbG az7Rac0/l3M5x4YVS4jKWvRCdxM5AyoSGP+OhWLqvbbNB1o2ty/S0bKccqDNOfiseCJLitOhls10gyiS x/N3N8FnFA3GzhwNLZXx MkwLGI2SGqVaKaJubfwlJ4IJuWJBzkpdRq66JJ+dieanMaOPSIRA7ODWg6IFBz/jVMQcPvEWZGXoDi34 krdE6fNlosDRu1hjQzB2 YYcVNWrpezkXCMLYSfXp3FGR2g5mLp7QqHiKHVHuYS9u+D+hmXnHaKY6OtGqUvFwQ3dJIzJLrFA2yQYe lS/lKnI8F0+smdFKn2rf YXr5N26AHIhP6CIlUt6o+vn70/j8g9JaQfrlLYMtepEanC4eWtJPVtG10PAnc1fwHlFZmYuO4P/rATi4 r4RPjRkQ89Rl2Ku62dMi ahomjvK/C159Uuo/YqrZ75y13PsaPtR8E3WQapsWnXKEfGUYqQKBSdSW5s4kmGQTPzGvrGQlIGrWU0Nc zZdpp8/EYBtZq6EUGHXA h/X9X6DqIG4idFm2YRd0cwDuhEWJHTem2poq4Z8ScttP8E/5g/iE0Lb7Srmx6qp0w1vBK2uQvBn1GGzs Tv5GVAKk08Tavv3PO/LD yxtpiqXWlxTKI6y8X6jRCYSaF88vAUrTP0ftp0BsTjN2dGCkrOi0CVB/AELECZfMWjQIOUj+q9IRjIDE bDvZPts3CN2Aokmygb7I D6b9FSOSMgNqj0MhiGpBh3ePausJZjrUXrh0fz0tU6k+Dc6/ERstgm4bRxSR697o+ouU2ui0EUOHm9lu +131SmwMDsY4PTkElePj YCCQMhchqeoTOA7huJI6SF+tmalZ8GlC3plDhShFL++PB0/hyaHuObD72oDL+UAN6DUkNl8EWSsoSBQU jU4dzuPJMaJ6OKVM9CCH no4UGDzosiVybSbL6NkIF2fVRtqr8RqelJ+JzIXUvDFFGRbER1EiojrkezPLtXSl+XD5WPtPXcSbLNjO keTAgbkl6SJpIgcJkMCO dYmPAEHBNUy2HySXDF3ViTzZIwDzg/LDEeG8qQEfOjpWExeQmDtgloJmfMQHuIc83MWHpKV7MI1gjFVO Jp7xk+c2KIWJb5XXlA1s IYu/krGoxWfEH+JUCWjWwjjJ3+vgwYkrkEKNpMhi7+gWMLQKqDUQYuTxxnRj8Yys55sbfzDsuLUcBVC/ yzTmPM5i0+MdsIlF88xh fzrO4ZKmKh2cSrUgeCn7+Whitney+meryEvLquEIhXHwdM8O2VqDuj+tFhnCHLC2wd0JgrBdxGopaEeOA+6h do/JwDgjybtfxy7THgAr zQrab21RA4iFxF3l7RKJem6TamQzFBZKdDidGKIzG6K+8g/EJs5cnwPlyUfErfKlfi7JD7Njl/tp29eG y+MEXu2QWDe6PS9REP/w AVPkXuk1pSFJsWp/6WUMVp5W+fBkATMAKdcwAwVHzdnJhhyyZPM5Sf+MrJQ+HudixZ22dq2b6Jngnuoe roBH2YsguYcPU+z4LqWT gyliwJ80SJW7hd+/yO7oF8ulM28fPTPq2yAQ0fG5lrPFOCsNTFnYS7b07fqpyNE3i2GBVVf6IbvQaZaR vRq74h7v4JbYpGrTVZNb As+8Cp0zYrAZYzsoh0iIhDdBMLOIHS/zHtL7r+iazOZvmqlt2dOQtLce04be6okgDM2Wc8aLAcUJF1V1 S7+QwMB2ay4r60tfKN8j ucc5SibHQTGpge7adCfxIK14UzIcISMAkk5mzcQ+UmDZgLzyYpgJCsZB4vZVXBFpGj3u4PBE/+U+xkmP 7NLmGfHPF5+USm0exGc9 wBSWOrCsaf58dnaDEdQv0WBmtuUxBruwVJyltS1UMLDIuyZbcfUJY2bms+CAfNpmROSOuuvr6ovBwST7 6A750cNX8aqUlSWboSjy pGK4GkaWEVBrYTUAC6QwAwXyOiC23UM664OM3gVwxCnF9sTeTn7luZDw+RPWIAw+HMvVBv454/T5Mnmg TJlf2pJZiu/bxBlBgVRp n+TdAcWYlYIoVZDKxb8khx92vltIFdw4od3pxUrjmKQbXGHJNqecLxzsxwZPLtuvjQ24YVOYPGsKRmqM nRMcAdOHfMQ7ACfh5NBu UFGtKnGR5LBRAGE0BqxU1BrfoUe2Rx1b3NqGuRkOUGFtNf+lMXROPcNvZ80nfWuJrK920CW9pqOO1Ygm WkUEBVLmYHBlCoqZbgU0 lOTiPJSjatlDjai7ufC13bRPKWeL6Br4XW7e3X2xaRiV9gjGlptI/pLmqquxVGDAkw5Sg2QCXSPTsThs oHNXXe0sQAs4o6dGyspA cQ9fVtb00OdRCs0ssr1JHl+MPmfwvwd1ExUWb+EIfuWGUzZBRUahMJdoDUJ5Ht3nIs07LfK/zOCStZrQ uhsfVKNckFQvdmW7NBtg Puomy7PdV8+4VlS30iEnnFPu4BvHgbV8Wh0Gc1jHXYrdR3wR7SLApwb1OTIxqlEdX7z2YoQirODavNNz AeCGXMBsG5rhI8+vpW2v scCib26JtGCM62rsc9ppeeEVQwmJttruYvHabAYhmoZV9tzqwTsoPH2vjZ1G3Y3ejcDB2lvEa//mlb07 gcnUpOqoU8YgEtdt1SL0 sQZVd0u7A4aRpfoawFOjP2/dNjnqY6riSQ6OWXgIXV1X2LL/f2KO334bDJCHoIt4HH2b6gB33IhFXWV3 DaFObkVkfBmSOZfM9ECE 6jy9wmMhL3JVngpfl5n9KwhMuYvBPxfht89IIBHt5OpmW4WIAv1r1LOgShp2Rt0j+rUqUMVb+tGN09+T 9wfEMNP7y+fe8uwuZ/Sy R4mfa3MgscFNLNaLAGvNlkgdw/ZwXil3ocvLh5YBwmlmjcDGxCt2AEo/OrUFUCSChW3zd/Jj0nYWyTa5 Thd4DfakT2aV70UNis9w X7/9P8wdIKVnLzGsYUzC+bH5tTo8E7cotgUA2kiejoZqQjZ/wZF2ayFA+aaxi9e4307CA19UB1WENluJ iBMgeHTTz+isaak+++myrd3 LmatqZ4VGmG1puqKWpGj5ZgYL2ARp3wex85jbWVs26NwQDelb1GFjYturwSNH2RCggswvuO07htB0hpN xDOlpUwUU7FvDJP3A0mW +K1w+AXnQCfIu617+pR6fd1hWzisS5df7jYol8wIzQ2YXPoyXb2vaFjzhQHBa0VYvNSVT8tcxsSEdCHN MBjBZ80uTZuD1ZSWl3cD C53pllszGIYYtErrFXkNbp31f7qcoxW5Y+YbhMgqIVRjA1/wfXUhndpHXmC3KF4a1Ww/qhVGt7Dq1vrh xehJxiFPsByVxLo8NhqM LCLU7IIZSSRXF0HCq+LnsSxy4XVv6DHWCvi3ED443A28AMO90p2ad+8CBnpyWQIDanZ/C8evppOAzSMa GkuCYtPqTXusbyVo5Iqf 2nnuEfpzLeraOGChdTv/c7aO8Anc1eHIZVNuVoHJa3+jFa7tPei7FNyFg+4OX5KRrpUQ47BbhesUhWmi WB8bBAlYq0/ts1lr3nDY c4O7xS4vAD6b3b3dL+cjMmTXQsMJbuJnuMyQ9UVwmJBieJBe1iuqWlYNQXnGakBq7JEEFkG4TLSQjGWF n+5XeR/TikzmA+Pb31kI vUQpCG26r/vLIH9E5HmqAKh/OtYBYOXJpFsOkmdcOdy366R2oLuCYJwM8UkTTOMXFgNS3KXbiuMYYxAp UPU4UPBunOyOScsj15ZM mVi1h0Tm8EiZDwtjx1ELDIPohP3Y0A2TKahbxhuPuZFVbXiXpJxv0Airv4+JeJS/GjqRJVIUPI/I6nu6 w8M5x1DXKdcWZs7397wr UtICfMrLbkZLDUgd0QFSpjhDdXYnvkHMDO2stE0y1cpmxg+gZQgtCVQsmRJuWWYggBrIEyBAUubVKtWT pnulsiBneEUOwv1zrtMj D5NAF82hQzVORsHHG0lyFRio4aA+UdHmy5wJMJFPONlWvQGUWW3dNiH1IqijtQ+K/hNmHzAmRi5Shu+R wT8qOx/T6PHf8fPPwIX9 wMrLj+xxRcQ/iWu5EEjKkq5s5zKbo30TKO8YdXgPPmyVnpohCjeygmo2TIq5W/67yMPSQ96UG6vwuQAZ RYgTIFCm/RGdBtAsU+/L RdpBsNaMxV3d5Bof/ccfdx2ge90jFvDjwmZyz6bleIkrPRn4w+JWaWL/5UOMJezbg7/NYDS//wb1Enlw Yp60tkqhqEleVSGmeU+k Dj+Mh8cZ+P5sOMEu+/8Y4jLyD4TtU97heFP4rFZHb/4mEky0r7r/5fFLtowXXabfXGA3+gZVEQ6W4tvQ TXssG2OvTFpReDkZ2hT2 N1QeBLAqJuPyZFUd7Z+isZdEixEe5QD6S954PVEvg7LdVQUHl5aJHDhLSk5SinloTKLOZxJHnzOTw23L 3X3w7b0nkYpJ5JG0eNbX LfpIa2H0bLV7KOCO3O3qECZicMEWpeNntql1aJl41hGThWSfF1rq3AkkONijL3Zz+gfQPGnjtuER/Pmz oOGSHrTVFXAXxH1vmIEm ncdxH52NQPQBmDowxxd2wLab6ZIwMZmGcuKkEcbBheGvLquKSSXQRVHHk2E8RmG8yTWNaE6AywZQDl/S unSBNiqCWRR+pbvKElU9 ikizRX/EBmwMLqJoG8MYOPCvDf2JOhomG3jfWmZgb9lKLoORsOBTIcm9CrQjKGGyJgXGXrYU9ERgC+aN Fa2DXQbdENXTUA17kPEN zCyNR6EIuY4MRRcyQzYLKAB5QamzJ3swVmtbkqvqB9vjVZgMdKCv1xFWSk8XvzCoMB733lpMhT33kKro 1ExZMRfIOOVYUTdmxKt/ ZSoRBmimUIzmLmCqFgpom+UN34woTitkVHpUo+fSGrNa0zT+d00aBv4sbRSCv7W7GFY4hGX0VARm88Oa KMtGgzaPzeNoQEn1AlKA 8EcRd3bz9OJClmHccB7So20BRCFczxvsZzxyxgUNLJdFtPTZTTQK+jTDDtpd6OueFCgso6kIkAztO5BW G+uIL/GIDVceTmZ5g6PZ 98h+q2vYCtC7OPaHfC/W+ECjP442YyXe98uYOr3t6CRy7PijtVRE7AE5qyPQ3m0MlHwOh/Og9FYw0lYL jfVMZL8QYCvgpGXEPKZj B0YepRVMyIkXSnYAVthuZooRKZITJmJCYn8hiFUCuzeZyanOTGQgiH9EQBf5NXIpPPBkmtTqjIMyH9iI /YtMrb/OXYHs2P2TbYGW H7DGt6Bwh4jPkR0rsiBblyI1ZeeY4gGNOjG87OtqUvoTqGXx+a+kDCiO/qQX+2XKZw6sAeBqLEpYdOaX RH84pBP2UbtXdEO4+wpM j5+a2y3CUebCgn44BV/nj1VEdvXPkcOxtMMc4wPuq+9MYg8PadFQEB6Y7MHGckJHwKZTNYUpNYw/y6Ex zl4alyl3E8I6I9zqtZp0 KTnddZohSosI2ePDLI0uw3VlThsJPv6ubkXL2HSIHIYb1MwfD7KSb2rxOZ2qx9dcZIQcT/nL0R/HbflD HnRG18ida1Vofx3AUXgS TZCHCd9loywqjDzhtNkb9xLgIWVMnUnPfCGm8WJHXdg1OoL4DxSNW1iCYoyYYif/4qI+MAgolChfYRFE j22QXIgOOKGwVYSj9GqG El+VAsqo29usbXFHyhXbQ9PwEA1+Omnn+jPP/+WMxsklJRWfLE3iuRnaf18PQvYZFtTbfElyhwMn3DNF pFMPX661sO0PzCkL+uEE EsGzfrN0diBMBGjilc9EucubIP+QojFhsptBAtuoSYIRKw7wmkttNLDeTecPWf9QsJm59qBlIsHxSlfA jwEHgEDwP2a8juNdoRlO aJ+B1jBOmaXjZNUAoT2jq43pzwF5k808T678MQQHUihT+SRGVHPTYOLssvvToY4oeLOtErnR2mvUwZrk GTWBPkV8kQINVkzqca80 9GOHX+IkvEYRHsj0OeSVWuUQBRz8YCIRxhLiqDGO01/2fh6s1o967UArK0+979izTcRww0rLeKg8qIt4 Gh9rLAOysRRQd3HBDM4y 0geTJLOK0PiE0bDoLTjZxQXVRSj9vukxt/6Q5VTYZkuWBYM113rS0iZ31+/rUIWIqNN+BTz2Adkcy0oA tOmTZN+cQA0vJsMiO8yE cIwAkzmu+uuu+lLDmr7ZkWVvNAJCxqfL5vIW1Tvz9LJXZnCZKZekHYFyEo1wjhvbBhFsrH+fXsaPHgwC b0FuzAFtRZQjcPUGzIoU OGocSOLLCArNMAZYMRCpfCGo9MPcuRZt/eLAuKLFUiEJ3aGCAoRCE1DOsBwNFvuXADnEIQsvT+wAGEYh pD2ayJXwrJG1jEfRPxSI RifYAHCMAzD+KBJCKOhLHYtOCiHz3DPNBX+/QlzSvTaZLiRk9buyBM8jWEo/U7W5apYXSnxtIYEQkUKT UXFixenrKws+JYdz7sF7 qDZf3idn22b576bwub88fukf6REF52ZHethcZSRffHjHqANeXGDdEn9mEURodGgQ9+fDYFXGy2j+ROPB Lqto93P50djIb2wv6aF3 cHXlWwiYeFb8EUNGiOiv2ltfxdunMpLmrrNrw6OV4+evvjiC/7SG/Wi9tTKG4MvY8KNBcjbDf63iBumf ftNJI29zRa+/vprmjdvn xwtNugN60aEj/vvv1+GGSa/1jE7HZc8m6cq254ZJHTGLDjMt1pAyZrzAXSOhFtp7zJDZYz/EytWrKDu3 poLN3Sce0/+mSpWrCjDj vjvf/6Kgo00iOOVIMjCSz/vhDbMe4NkNA65Oo9gzQMKf56XzRDOq2RpHWbGV5TfgPc4JZ66yBJk4FRm+ ypDGs0ZO3z42Nwzpb/+k V54wpW7eYKkXsbsiCgF1gPGq2HIkZzhe1P92kZP7elWDaLEMYXnE7v1QUDkjclAgzXsyqwoe9aoDtoxR BZOlHTYnn76zVPwYSiCA M51OflBZPUotjBcztOXGl7c+TrW7m7N576Fd1tuO8JRiWJNcNYznhuNRwgF7KoSguxCsLvJxFmEy/g65 tthzU4AKhUKyNvaWQxsI S+++KLyuQcvFrSPm2++JfGUfOfw79/jev/9/uCWpBxL09kSPuCgZeNQTMjc0KGVR55++72eV3cHqqQzE cw/r7rY8Je291UtdOtEz q3iLwaXILRkgEtxdDfM92j8rJWJX2lGqMFIDyxrfgdtlnekrI9uu4GgHvWJCPDKhP/DP8lMgTKMrKHFq 306pcSai7RtGXgFZSYHq kGw037S58IQ6SyBS+/bt0+OxyAd+ltsOKpVnLhZ3TLuWtB3Ghec58JYtEBAC1UKtv0eTqAnHZzQecNLb TJlpMN+3Buc63//+580b 8hfNwz0WS+GPn6cCESCTOkJHfeQkPLPUPl8nMZMdf6tlj+PHhAv2F731OSOaBJs0vusQhsKhAp85JX66 fexSK4qokAOclqdh5+tU rgHx+Ie4jfg/slGHeh3uBBEPdNKyd22NeR8o0MCjH/4d5mx3yG5I/7880+zKtFOMIe2QIDxg0581Sj34 aefVIjopZdeohdeeEGFv VslK94NuZauLnWsK5kzuBY1Y0qAn5xviXLarmgU0RAk/fXXX/TYnOuYF09CERsiLVhUVZOtT7OJ3oNGC 3n6JYqigvNIZ18wbvboq 0/WjZBUQEh8zUtoitry6rCrno22xuOs6kDsu0hlboWdFA50KOW9z4po1BUKq0tIrGngLo83Ohp1toW2G wd7hRUHJDT0dW/at28vD RilvPmATr8HE+E9wfuN+17v4uHuvzwMG6un8hQpVDwIswWj+yci8BLWYD7sFjYxtHkmzWPwRRYU+sWJp F+9BjSwgPqMqI772vl4e LPzBU5OmRg7h0vVG98ijCraMVvdM58allvEe8ZhsQlPIfMpaRTFTkPxC39b0w7oxaiXJz097xsNvoRZl Fyf0DJYy3kdric78xetm qSbP3++2ayHOWMGXHX0wibhHqJk+++/R8tOOGVe3RoxrIbvsyD6KL+kdLg+Iaxs+0VgZGa5QvWmoR7GW GPFihXynEJrlHGiIWBUr XoKCSAHzFnKRCXUGYmj5TOPpxjGCIwrJj3n4l//fePGG2+Z1lmha11l5ydLfJQkDLZM9VTURoyLEQqJ4 dy7yfsmcH9d1P5mH9L1S hMELo5U1wWb0j1BTHNc96fapQUvwu4UjzWDO/aMFGAJO9ApZGcTbHUoVUP80yJhU1sruybcIS2GO7903 oOCCeDto1zHw1HGjRNWR UAi28987v3JXJNFYLkOb9/3Lbz1757gQSedNxTgQ/NbXLIVlAa2iat+24afNZx5x+TOL9Bc69koZcLx5 g096IwyofA/e/Xhtrq6Q zosPRvxcJBTpkQo79Lku/kYBZx8sQwNNlv57IllHBelMDGochcVDEfGG000bfMTMzHk5dCEnzSsgDLf5 O4ihHq35+7ZD5k873omo r/ViYa/8fjjj1/9ajCMjsOU0YDCWQPvOaj6reUAGuKdYCqLy4v/XGiOd0BDMIQL7N/+++85jvVUgGiee +8155X7Ef3TPlN05cVWX xfabpdNnMpKCaRa315rF4Iz9rWwd44fDtn8KGGEAdGCL/aLlp+SuWjLuxbnVPuFztMUz6HZNByLluiEc irmaqzPddWqVSrWMaio3 lseIBHYErIRblBe6i6wUfpog0mSayDLIo4Kcm8E9qHWDgepurFyF1nRVNNfXb980SUOHmEUPPpsSa9Ky i1Tfck4664aRkkudg09j MYw58FQCCifICvgoPZVLfuvWrFCRc/n0espfclt0zHhni9/HLq2dVxjaK97assZsLeIMoHJvNe5onr49 zNOiZmAmPJoID3n6ygZn yvVMOEwR9l0kxIEvvH9grWFYYvYi02dnObhdTqwdqB7WcAexxeXsXXKImyRvCwgvni3jb2DGC/XHUgnV AxBnh5YMZvSrBSpusHyn acjdyeWcRIvT3vgBE/d9Pj5788L4Qz1n7XBpOV2z4U0Cfno2Qsgx33VKTGTnAcFQxfKpusqUEqMLNG1+ pbIZPqqhissI61zy6fI4 DcHtOrpgSQb0E3jI5or3hyahbjwA9EZBbnIYx2otgiFqz8o58oOUryN91QIIcDxiOgMTWlYl/fy448/t b3xoum62Ujt96/xxRcq1 ky4iKOgeIYUtyBGFkbfiYyyRTolJA1NQoXVbDQW+EJae/F0xA3ab/QoXcZgdN3VI/m4w+ee6EUMAB0Vp D7iJOSlFptrKPzxE79eY oWtzSw07Yb9A2nsXbGtbHR0vxULzqHXGtkfialHRoX0ix5a+i7cI60yfKGv0H0DsNSOxvL67N2aydObj +ojErxfwb5GppfHSf+ox In1GSOGQ2n7eACQJhZG/nVB4t3Gs5jCiiIknLPjLn5dzEzVGjyU3DmdVJs7aUfq5muPS62p9ym59Ij1+ mPuZs3j3ubW9c57b+QJ5 958H3loayiJpeQcT+euwkcad+e9amJEXKxw2I9eranxTt1n77WHxiiVh8Vkdp++5487rtAFdx2d3ymVN b2ij4UTzl7A360eT1f2w FYsjOIrz2yCnr73LZJ6ZpiEhLs6SwjM4qzSZMZzvYja2Ej8BrLvm/904uCHAobJge09ZNI5LODV6yhUr pBUIIzvIJLF3y8Q/6Iz0 EytiKbxDi6ZmdZx7tKxwy9H1QljbeKKPFMKjSlnZ8RE8ciCFwQ4e4wXDPY6u9vU/eD6N+G+cOt57yzqL GHO4gwaZEO5ZDxaocm06 l+0yZMFM4QbTBY1HeRdMo0nkFKodARGrqVNTCUz9WKfLxzMEAxivhx06c5y8hPARUaka63+WzG4Z807D +vLF7np1CwthRyh84q9e 4YJdlM63nenuIZe6/X1cqp8NGdG2KPVqkY5PalUWCDGeiDvJfz8UUOGpOdtrvnTHllmRyVPnUOKU/Chantel 93tQkns77+FSv0xMi2X3 037shLTHNLCF85LNe3Ma4LCPojJTJSfLr1zP718ukLgQXTlZw1bf+mVEEzgcUvcejTLybl9cwbA22KqY DXVcw6i4VUXwdQC19ebh DiTz3ud03i1l+HssFLZZP3iAxt/Z2GTjI6FvuAXT9QNH8k1y5aHSq/IK8L4ucseLa98jowRuWjCiRt9x XKUWJ4mIEPVRkDnhhDCt Ypb+/YB5UzTIFXAitSvg6IDtrBeSdXGWsuAtil1060opFyE9yx6q1uXIVN9c5fS923Affh3+z+ 6rBWmvaMhXWWfaTWWExK ZQMSbqMpkmC2IFCWwahweJ4vO3FCuVWuMJQ/fhc7rpCUq3bJrmE8RHU8U5VDFwWapu+RC835SGIDWP2X SUJRh9As6w30phcIc5oN xJ3qpGneVmirgeWUo38X2pWjz4KjkCPutlYjIAMfFgjZuu/Ne8TvnhSFHaJ9BQ8LhF0fg5innRMdj4BC 1S+oXmsz8CJ4+bNSWjbK kTStNdbYHJt/T1Cu1U+39VrXl476SJRkXpTGabZpzPxtmaf0iZG4cJFZAX9LSTHRQEM4zZd8QJ50tURa pDAr7qMwOfLbuLfnaJNS 0/DPuTFQ9xppbSXsRvaPipIXHuzhU13R0+5nRMy3fEmQqqzcakQUDktmKXu6YCRov/AqHY9xTFwwY5HA IEKyKrxQIBNnTpVCrGxY 3trZWuq3LzjIl5x5qf8p17fD0AKIyi1qAaHTP2S0j1v6vpZnfvzCAGpIH0xrU694+4Anby3scNDmmxaK RgCtnM9alz4VmIXgy0kb HBB+tuEgu3Zbb8xCPPf2jT20lamhsFaXOUHtPN94sttuD0He7kplxXmN37mcZEd9lY5d4ZXvg/kmQDBi bUTzDJ3kwcYpOLCjm9dJ etdnAsjA9414tgNIVVI+oR5QHuTrooZREO92HZ6iJvaT5qkxm1ZGH3dLviICKXJVvmZ6dDOiXRjRpqvF GQon+qkD8mS22qq4kUJv OeIpScFeNeyXEqo2rFipiw17U1qB/dIphACbqgF1z2vF331k/Z1D6uJyURUDu6+T9mWrzg2FgQk5RQZ7 kRaysx8HmpbCJqTHy3If Zy3fR9C7Yq2vkj6mLk04n2uPFt3CatWngkIOSCUueMDLl+7fTovfVZW8RkG6P3C4IaAm9wN0v0q0PQ47 eaihH0xgrORwQliUjNVV JZyVa4sKC28iPAUewXEvKOUsqbq+MWYwjkAmUA2cVhSQzH9JybesfqrgW5pYBGHpYfEW7GqeVZHvU2Ri Jv10MZfcbkraaRB8e7mb 3y+Eo2iSN9751zh+zlqYzwsXCDLpH1G7UJCOZJTM3upmPARvYMkuzNdGAPHlupbw6DpeXk/jTPtBasva BjCgz164dbOV3bv6L8j8 3ahYgnqnYkP7gdxvn2ZlWlYOXSPAsGbqGzmqDV0HWhap/wMtCWtIUEqf/ysc3CGmnRkKZzFtapXbBCWD 3ovL6NasRCeqpTTx9YKg tOmTTl+f2LPvBCMFDJI0d5KnjVeFLR/jjYqaYZ9rhsKWPeIsEnfuHpMtl9y44BeCeBUSujOzrliOtjdt SrtOsMEV1HQWNx1kJd9d hFP5Dy3de2ptfjWjHO2937eax5VTzt/o0Ff/hJJYsXouVaXJANULpaU3PUAnGy1VhUKbp7FZNbxZS4HD 2540LJmQKAqws2aI3hG2 nFruNzJAwNyPtCiyXP3lE59/NTenPwTZrwwaXWG/ZUB8PbPtwHgDUu4Hs1hVM8g59MoGbynhnMRAhZIV h4HxH7JHzAl2piLVffVF rs6rE7HS4Yrsk84ihqa7fkbWZKtlUwfTuYhhtn5KkQqjNhaDJHq6ewvi3gUBzqN1KcDT7xssCG2QhMZJ eERBPvhts4ShxCeyvOHP ElWKYiFISjJlT5Yy78nOXujbpg8iBsFwJJHnwi9YuZWcE6v05JwOD0ZiocXg8R5IESig/UtuhfCbV0Tg Z54KWXO+eiuY6oDPMygp 4c1Zg254QT6LgFa7AmVnNKUNsCLV1Cj5sUVDURcyhiZaODy4DeiSofr+hEwjYAqrOqcwLhOpTypq89DK AyP11Y4NlYPy1na4eeul QMLBu9moagrdeNuNM1VpAPnVtCntJlz8jbAsZY+frHDNfrn44aTLcEyf5RrY79VZ4NOz3Fu04BByzI2i /322+XW09+DdOhuxLiVB l0W3ox/4WhIayaoHwKL5O6yxWOUy6/ZYzXT9/RzHlsn1j0Men5aMbsw1BbuxYsrtlC0E1/We+DJ/Uevi ZAcl0u82VqY1nindcyNp ++8302thu91PpX0Pe4DYxGeqSuC6whl7ruvs/vYaLj88DCDNV4Lr1P62aKZaUVRrY2XCpW9QSkrE0gXs KKEGanKpqkTHWPGR2SYt vFl+EzT9eriFgwsU9XzcyBgkjxKWFTwa6MSOLufU3xAndKoiKkAjon2Q2TpaJgUw3XROf69WFvV18tOO syCyhq7dihhLU00hBDwG 9PY3ionqg6StGceUEml8VowhAiHPsVEjKcSncvl06soXpmSg0/u01TogOtzAm8g9g4vdtivXLOkYrZBX jq85VMGwkssCMJj6uNl5 KU5gL0797cy9ZFfsZOD51r75EsH4rYd890jXAUWWTXZFf2RicT3OeZNkLnoSztkfxJxhtggbIeGFM+ei YxUusJ8DvkXH7IHY1oOQ r0BU+/1sa+21jyZyF0QrJLxB6O+TN6NcWXrR4XchNqycpKzqeQX0AoK5tRIJPZlHdVQgO2D+dTF0041P vw+yV0b0mVUoYX0q4mnM VDd2HVc1oB5CMjN96dc5+6XjDyzIF8dCDmtwmDNEUl5wmp2kxWuxZcE4+KqUKGCV/nLk9nfklr1xJcYZ XdIXydK2bLsjImhOIhpS EguV2lA8ftTkNKiWI7caGhf2l4qCnydGS3PiyzlVfZjUlTdG2o4bnm0L76n3bFviG5mROiBMJ9xRdWsE EYYD8B+wUD0+7NS6QznC exC8whCyQPLNAvPl/Ja89IO/a/t9sIiutJ5fhJh9m+HX3yuqP7YFFowi7fQ5O2GTDfVr2w7ZgAQ9E6CW +O3j465dDUPdQOLxbTbG 7h///7mgrNU2HESV+L7V0iiXwHig/akYPzNVdhFecfGzPn8o4AGPsxdteGpCf4ixQTFvCC85rv+4j7qF 3PwzSBlceWZcy6Rj6weY WFoBdhl9AHwLaTKSN9IsIzubOecGPa6S8zr4gdJRqkYiTDW8M3oUJ3fzETh4Bg6EvMxuwAZzu094HRpI 3eiXY132pXBQmPxE08sf gTvTWcL7PiYM9nq9bedYfEk4S+odEbENhBhkET8l6E7nvaALna75LP+wwWq3OpCCc4m22RrI05MB0YQ5 Qn8JROPcoFBal1JejSCm v6H0zR0TZaspnwkilDiJI+Z2l9v9Hrx6HVVMUPlYKbZyLS8eWnZGpZbWCPs08rld3Sbv4lZihCyGdoj1 bCPPHZFU9ADYTmOZqCHi XCGRx+HcfjRKLUDkoOLTgOVop3i5BuQNHRemElXTXKjPIjtk0BEyYCOX4P8MLo1sKWDmOSNdjJWPbnMV MxJHW91NLxnDBNfRKRnY o2JWhzygYhevbRBPWV9aEYlXZJZetfwl6pxUiymJ+bEA1t1VG3f1U+Ia0D/XSag1SiH49lOz9N5Ep7fC UJGn1GmjZ/nskdUotJqB 6R25WtrqbdJ0wxgFUezV+4f+qxFK05+TEmh2sixTAJnTd2rQrycvWYcC+ffxQH7rIWz9KlCXayi5qrDZ lqeTba46fst4pJfUnq2e 0GPl1AHLEr/pl5Vw6Y+XT48wEsTW0DejXr2u+UELRmqlX4AaDIYHf59+fpPmFOReFWCUmgAnKrQs891y qUdRKwGpPnr1xBlsx7fQ TuCVQIyW4sMtk/NlR1zXghIflX+bJjrl8pHjkGor9vveHBMpmz9//493nSKM3JK60MRmvgKXRUiHbP/G s3o0wJ9b3wF5TTatWBun OG54/eusTWK76AotVoy38c6brN3iFIBdXrFpvZl00ZumN05wTfiUy+R8HXKDizyTFVxygmxt2ZnIYj4A ugyOtMnkoZOgAcL7aV+4 sNasJqzn2/wMerqGgUaIPOnQWKwMLx8TPH+V8EaqHwKsrE6EayWrdIPThClGAYZXUml+oEFCMMwDOMTL FQIzxELb0AVxbTXt/gEC iTVKUkJP0jEVTmJRO1YAhZaFDgeQSQfTSBxeF+xAUKGyvH7stWOhgOY0kKoLLaOPIhkNZKJGAcU+AQLE IZhGMYnWIAwDMMwPsECh UGNjsADOwXVyvQQE3IUTEjGPVyHKLxYCMejNnlGHZTeWJ9mTrWkCKP1ODwAofOKvrr5BfCfpPHR+fn5k b+/s3hdM1AFAneWotcmo OOVhEGXrtMCvauTk3oGRemK6a8lqsPjlvp5mvxf7qIRU3qxI5jcp41swa6O88zkK/Ce4bNaTjdaHUqxN GFgdvb90VG+/IcmQ3csM pyGrbFezTxj4Ga2LKtGSUN6AucGsh4iAt66ARTnh7rboFs46nOQ+bdq1Yp+/brdtgiy56+pg9lnc081M g2718076uihPf2c569/V dbUve4wUK7w6gzbba1iYQhU1gl1L6mCoWvqU7gA3yH3bVuCGm1B2+7I4fz/MRPZ6VSCaIvOBdQNBdGaU YpQoUKFqG/xwzr8L9sP7 gmMz8KokAOd04DLbi+toxzbxBJsPAmSZGXYoiHi74SDV8md6Ophr6vHyctsyTFCFLsTzlkmHu5AOy9TT VlNLP9pdYBCBnD3Nw9DL 2dfH7wEVTlwalwKGAfIQw+mW2+7PBlBkjWy9xGKQ6Tys/mxkp1mcSpNM+gKT4yJJVR6+/btjX79+hm9e nBsfU35mIRR5XISbk3Qt jNmNWL49+ap0L+WwNy0xv2p8a7454KrnmF3MwgVPUOWvRly682/q1MDPN9nDAUHKMHKDbGXuqrlXlNpf HZMkh6cVT7lS52BmfBiH YmiphIvXChGAq84JQx1V9+VX3/1RxPrPtr4yzFB0SmHVdpghheO0zdp2fzV8Qs1q0KCxAJwhNd8HeD0v fvs7+k418yjSuvOy1/9J fRGJXeOvwsmC7nPKAwwvEUzysBHbnk001xJukaDNX9eytsLFunlFooc0wYyCKtPdpKxSgLnKlbQWm0xS vj1Jtvu6flY59YjS8Gcn bWWHVU4mo1pwUtXzUShS7qH/Si/8kzkYRMrQ6/FuAz5wE3UXqytC9c/T58+VjG1eDnFw2zFf2TUuJNh3 aoy/B877ABR5MD7BuRRO YqcLF++ZP3VFyVMFDIs7EZ9W+OZ33cqQl2u+LHHHlMpcvLXX3/TaalG5sN46Dmrw4lTsqjiqsbapeQde l/Eoa9HeTcJWCyJmu54s MB/8lNIScBBN7Svzj/1k08+UTEmlSpVuurhIPzLL7+vuSHAoAPyvd4NER+KK89GD635K5mc80QPMapuL BaJlY8eSZ1HY9Y63Dz8n BueHNXGwp8dXW6//GFxt9e5LsSADykIvvrIOrNkJ2+vPeSYYpNU9vq20RZHGwKfNyejVclWxSd2FIW8c mbRZ789A4ZReYouKkxYO fPH7pWRt0T35OEkARefXG91pyEeFr7WIYyfm5tBVoNVJlBvoW+r1gSgm9p9Zalz6toaL0OAXV2Dpzksj HX+alBvsNRvpUn6bidRt lNGi9C5q0154g1aZw23d1Z77So9LMTvCHstU6r1T//8c+CZsOSBn326OXpa14+/ZQlnoqe5uzaX86dvV nkgDmtN6LQEVhA1wZsye //9eqvkq7OAIiae7lQcUekfBXToeQMveUepdotZunZT5JqAzoivhzTvbZEaCNvIsuTzAcShwMxhUjK92 XIa5RU4bAcwwL/AgQMq5 Ve544rX2N+++fkb8qiDwV4tkRCfitxzvvRiFvibleSxPgAsAZxrlDDltbIw8yXH6HLmABpYm65CtWHeX QeNBc/D3uZVaaEKbHBlf aHT/O9//0Bs3ZHgPyx2/D4DNI1jV7IcZk/RyTonTJipmUZv4Pxz45NMZNaTNoPX4tDeg9uiuv9++KGxd WzN3PrUHrRo3ictnMgi7 7wEk6Obe33fM2jSkgbRIOsQV2CnWYnooCi8tmKwvGnhaRs7OjdHzATzru72QdREO4KNLC+SO3PdF1aBK rOL5awTtaN5nVCAleqX1 FABj4J7i5EhSTAsA+7/+tpeVNg1pE/29psCeMHGVyN0//40JyMC7r6bqxpfGjTYgvFxCDC2EXIsuArLK Hk955QiZx3zKBLmUC4/R NCF7atVdURUd1xvFmou9gzTz6OOZMQCbngc7NAufRSa0i708zEAolNQV36+wbJaWYXFEdLy64eSz499l 5koIm094loq7IONjlWNw REVryNhiQpAv/Qu4gVIFRZXkaMYxw68KGl8nshaZb+5DrZiON0X0ZQnqbtdp97g6/7777ftx/TO31eLK WGxghzOPjlz9SJKnzMvc jobcGERTpeYpQLKT4zYBMUNc4gsDEw7+ewtWrm78vDKiw1DVb9hiVRqXvFGWkxoEaD6lMV/h8uY2EMap [id number] HXFcr7fTfZN28popBtv7C66xOXwmyiRMKwzAtn9oRbXt+fQbYOZ34pkcTVg/bs9C4StIZjlFSOvdED62 jsTIKhHsP+SW60CKmBqo yOPNGVHVtd2FlHNCaVQ0dNwck//bYkDL26XgAGlPaek4s296tN+U+jiOG/tDtRZFLEijESs7fzcce2hJ TXE208cfiVzaWtFph7ut FQRZ+5v09GM7f8SHf16RWg1dsYX//zzzzKsQaWP+LwA+pk1jfZIhUgu/HXWW2xQMSP1Ru9Q/pDYnWw2x 5wxefJkl/b4MXV9Kle+/ Ya2wlKEnha0ml7rQDin8x670NlrqRGRN2noUAm8b12pKSFzgyz++ecdXou+RjhUltYGgwaCyNGxAJVm5 40hIjp0wnEV7d3qHEY4O 2xTrIbXVuN5KfRtHTJQfZBgai5VpwXvnV/+7q8YBtNJA7Ax834QILeQ99dop9pbZo/+/VUqE+u+smXL2 vzQkJzhSoAAHA+h5YrTp 0/XyAsbkpPIaiLiwwDEiT0NhOnKC18WQB6ZuO3blvpi71BrMHw8TBW+QvY8tJ8R10Vum/ULJ2uiAVHjO fl4bcNSIu5wnFRLWMJst UfixYrafVbjnVXJpXJzydCEu8tjsvoiRWyWEmFUdIYIJPydfMGMyDSAH6KLmx9ywOKFZ28HN9QpbV5// BE7Fx7XW4/Q8lCnGuyzU S41op0Bzb+KaiprJF54gDnmZd4vMwns5nQKvBPUHOJ//MLLeZrRuNctGk7e9sVP0qvTBegZlkxizSIAO 34aRvvM8ab8lI443ttEu 0TrVlpCffTRR/TLL7+BcM9vJI3i2mKRdKSFBhQbWQkv8wm1v7W4LSSV40LNtdBW/ksVBMhX9FaoIXaD8 sljjzOnhVccQ8deu7hJl c+nMxRab0p19k263cQP1DdQS95QZtjjQCIt8SPHGfsQFmd2ZjsJncR3vTSP+4AUBemIVPRF1V38ESiot 2iMemXFZM+6lcmAzyI1N 2GJh9+uS4ZeoWYLGhvjy6Iq4pN++bVcrem3ButFiYL1eIvhgUQzgxOgIUiXbaf8UlSMOKrDcNolVn2IZ AFQS9ZWxGvpBsTZCnUn4 dT10Cd6Rq4z2wWdTtOpIUqs5sqLBlMkodoWkS+Vy8Aflh4++knmc/CmLQWibgxZe4LTib5li+6KcQYsu Ww0SD65QJSzUfapM5Gu1 syZI/lsI59xiIdmXlXpkUEmwHFKliZoFJP51iTteKJlTkG7EVq01fSyvpVM0AhkR5t941XqTzLV7H/v7 SsoOSn4hsCp4QQWRCAyz PlGihGWDyioYM16TCWwJV/R3nvDlkKVro+TZgZ9pPxkzAptitPIZBEvaMKavnIlyMVwJdk42BwVkJl95 1tqXUt8Of1UsOzyTtypI UiHyOnjIs1whdrrJlpcBhKjsiZeiyDz5NpudNyym5Dij2RQDxbZRrbQU61QqXhU4eUxErYGbq1EsDtsL 9Rn8skt4tFgUDg8euZjh xfCKD7FB8+yH/oZoDdWkZnxe5J5QZprhjq2376KE5rFYuKKspf+vG2HJ9p4Cb21bWam7pm2LdYTjRzXm Petersen/J2C+YgTXLSn3zGvzO nj6ud7dP0z7bjxXoYSFggst4mXa0IGDOZxuwBH1KIOIwFS3LRFk2U7PQsEYSWiSL63lSBOOQPBdJUyYB hzwtbXvqMxhHhRAmbYH2 yHh1IjokVjLzjq6O1LCCECC9prj+X9tjJlmbvrDZ4D2FSJyYQX6H9IMphQYBAQysifLa4cJ0kNEjcRak SpVkltHGijmUeFdzytyL ITuQltdzuVethNVwTeNTLlC7rMr/B1SPZnSPxtraGMAixp3Cjz09t1uc8xYM5Uz3I+/gM8Ntp3jHIiip JMOC2eoOREJBJAe0s83c +2H2lSoCWyZ4GgrWEhLU1JxJKtNEXgZY1Bp9IZtHSpd5tZWydRwsh2EBn6QhFiNdqRqxUtSuTrGSKgvJ j5MpKlaP4/ppFszNVS4d wJPpBELmOh2XiZVzOIqS2nn3z6L0rzVnVcI0CleEooLX/NHMJItwozwXASQh2Xs4dpb4ViH7HfPwVISU vGEs9398CfcwyCQTDVUV oVmyPRwELSvCSZ4IuwbyBbhftTsmukFKMbWWIKRkVV9Yk4+xwk0cFz7Q0f1kdd22cc9qjRB7AisnHDDT ++njqGRPRZ63uYgWKp3n Iuxg3PTJgo97v/Xtdwje97JinZ40MyY16SfNhaC5R3ry0CAK7CXdkVWdptV6PK0fNV71EBKLzrYvosYH 8pTXMwXfvhT62tcajliD /uuMJjOId5+1bWgt9A3n1It+aTgXjeuqIVjTmylBRNfysztJM907adIIFVrFK5vlYdC9+gR5Okp1bjRN 8Q7G/o29uMaCdpn8wZ4w Eng8HaIVJY9DEWOuW3p7GU1XacP33R/2U1b0+A6wdHXkvuUgSTKqolw0QN1/3jdlAsu1UlQp3Y3xnGfU vFDq0uUGJc2EbLhRWfDg 4IZ5dlONoh8QIlJgtsdhMp7UuK0cK94SkH4DaP8JOnC96dMM8tvPPUdd5B9zuVfqYehcy0/3TeTcp9NH 4VuOJalO1aEPMsUVEnV6 wlFtPLi4Lg3OMA/7CxtgxoFwhRNSQtHy27+ca74nlk34a4bUXee9aBJeqAwzbyCkuxoYqQzhtQOqqxNV S66mD8FML1BISHTOY4Ug PPQ2PUqZdRvVD/M+8QbYVWgT2y7nYjHLo8IzJoHszokyK/p3iEceuUNcemMJS6kGZ2xFPkAwXAuFM3Pd huutQDR1+sOWBUhHcxvd SmGQG7LLwulE5vYSm8PS1XTWOhnxHzbMsjyvden3e/FssIwMYgyc5369piKEqQo0paSpRRCR8AVpg/+K I/3Fk/mQmC/r2xr7uerf qIYK9HXXl72O2pWB4W/oftouuoIi2bkx7RdkGUXlqcA97KIR9FErEXb2soOtNvQ3hqYphVmdwzw1xhVU UlECxvyiNbgEbAS2v+jm 8S+jlE9dh22r56l5JSnMpikA0Zob4piMtPFrqZ3HiN3vUVwK9UQGKZvG7vJeGSSc/1fbzM5vF7j+1t4+ +23U/jc5mP9M/OTEtt0z rjlKNxOcII13pDXOViX0p7d52VuDmcXTXVEKvUjU3vQsl5HtmqE3uMtHFpKehWg9PUWZMCMjcaSyuZqv n79+gcNWYsHlh3WLBfQD q8LJ05D5998z9hhSBiAzHenm/oNGODl5A21Z7Rqvgfp0kvzf9nLKN5gWYgWXHWIhUO47isec5CP0tmwJ UINs4VgA0sbqQaK9zwOq 7Z9hhTuwREXgLshHgPuOCp6yzXXfQwSKesbgJr8uuV58NmUhnCihfR71cQctI7k5J/uWMKLbObznni55 2rtFS222rjM745ceA6Jp TBQoINN7IVL39Y2mdiDy7CRtOBy+kb9ktAWL/jtQ4jD4bY1wl3n3BRtaHfTkXEwcT/iCoz/1A7Q8NK/O 9JvFx7r7H1aoztzSKwBh iydUaZMmavqQoDnh/cB9Q+6LZEG6/ZpVlrF3SmrR69gSXTp2bBBIXZnbRKRYOISy7/5k0njqitkkrLiP cw/G8O0StU3NPt0zoeta JoW8HnwJA1HdHywItBzZ5B7aC25g0FofA25KbUxBGocjUX/FND8+/kwk188U2/VJDCQy5Cpvf8cVQXVj JqMLiBM+vkngIUHWn+ws GL+HiD5Jwz2AKlpwgZHWNOBTtz9yUokHwcXCzx9gaQHc+YpuDeMEq7h44yXuiicFThULMhf0BONgsKQw idYgDAMwzA+wQKEYRiG8 QkWIAzDMIxPsABhGIZhfIDo/1Fq2KUGI696DGLEPEfBVqPpFcFA></span>

<st rosana>GYNECOLOGIC ONCOLOGY FOLLOW-UP VISIT</strong>
</div><div><br&g t;<strong>Patient [...] ; originalname=Chief Complaint recognizeconcepts=true spantype=section suppressempty=false>Chief Complaint (Correctional Supply Supervisor Oncology):</span>
Surv eillance
<span class=clinicalNoteSectionVisible id=[id number] internalbreaksection=false originalname=HPI recognizeconcepts=&qu ot;true spantype=section suppressempty=false>History of Present Illness (Correctional Supply Supervisor Oncology):</span>
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 Here for surveillance.

<strong>TUMOR HISTORY:</strong> <span><ul> <li>12/31/17: Presented to [place] ED with 2 dayhistory of lower abdominal cramping, diarrhea, and bright red rectal bleeding. CT A/P demonstrated a 13.7 x 11.8 cm complex solid mass involving the left adnexa invading the sigmoid colon, thickeningof the wall of the descending colon, peritoneal carcinomatosis, para-aortic adenopathy and a 3.9 x 2.7 cm soft tissue mass right lung base.</li> <li>01/01/18: Transferred to [facility]. CT Chest d emonstrated multiple nodules of varying size identified both lungs predominantly in the right lung.CA125 = 250.7, CEA 1.4</li> <li>01/02/18: Colonoscopy no invasion or mass obstruction. Biopsy c/w ischemic pattern of injury. 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 placebo)</strong></li> <li>01/20/19: CT C/A/P - Small oval shaped soft tissue mass In the left pelvis 1.7 x 0.9 cm, previously 2.3 x 1.2cm. Colonic diverticulosis. Stable left renal cyst. Small hiatal hernia.</li> <li>01/22/19: G9W6-Szeojuoof or Placebo + Nivolumab or Placebo</li> <li>02/17/19: C6D1- Rucaparbib or Placebo +Nivolumab or Placebo - HELD Rucaparib or Placebo for 1 week w/ hyponatremia</li> <li>03/19/19: W8D4-Rzbaolowja or Placebo + Nivolumab or Placebo - [...] adjacent to the midline incision. </li> <li>07/09/19-09/01/19: N70N5-D98N3 GOG-3020 DEB Clinical Trial</li> <li>09/23/2019: CT C/A/P W - stable small bilateral pulmonary nodules measuring 2-3 mm. Mediastinal lymph nodes measuring up to 9 mm. Mildcardiomegaly. Stable cysts left kidney. Stable right paramidline abdominal wall hernia. Stable mild residual soft tissue density along the left common iliac chain measuring 17 x 8 mm, series 2. Stable bilateral subcm inguinal lymph nodes. </li> <li>09/29/2019-02/16/2020: R63B1-F62Z8 GOG-3020 DEB Clinical trial, CA125 = 8.1</li> [...] protruding throughthe defect unchanged. IGLESIA. </li> <li>03/15/2020-09/27/20: R58G3-O96T1 GOG-3020 DEB Clinical trial</li> <li>10/25/20: <strong>Completed GOG-3020 [...] lbreaksection=false originalname=Genetic Testing recognizeconcepts=true spantype=section suppressempty=false>Genetic Testing (Correctional Supply Supervisor Oncolog y):</span>
<ul> <li>10/02/18: BRCA2 mutation c.2312T>G (p.Ije187)&l t;/li></ul>
<span><span><span></span></span></spa n>
<span><span><span></span></span></span>
<span><span><span></span></span></span></span></span&gt ;
<span><span><span><span class=clinicalNoteSectionVisible id=[id number] internalbreaksection=false originalname=I nterval History (Correctional Supply Supervisor Oncology) recognizeconcepts=true spantype=section suppressempty=false>Interval History (Correctional Supply Supervisor Oncology)</span></span></sp an>
Helen is here today for [...] <li>Hypertension</li> <li>Obesity</li> <li>Hyperlipidemia</li> <li>Tobacco dependence</li> <li>Adenocarcinoma - chemical inspector origin</li> <li>BRCA2 mutation</li> <li>Pulmonary nodules - 06/2019 </li> <li>Hernia, paramidline </li></ul>
<span class=clinicalNoteSectionVisible id=[id number] internalbreaksection=false originalname=Past Surgical History" recognizeconcepts=true spantype=section suppressempty=false>Surgical History:</span>
<ul> <li>Colonoscopy
</li> <li>Neck lymph node dissection (benign) 15 years ago
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
<strong>GYNECOLOGIC HISTORY: </strong><ul> <li>Menarche: 12 LMP: [...] id=[id number] internalbreaksection=false originalname=Allergies recognizeconcepts=true spantype=section suppressempty=false>Allergies:</span>
<span class=clinicalNotMer[facility] Hospital[facility]HireAHelper id=[id number] macroname=Allergies parameters="ListType:Bulleted,ValueIfNull:NKDA spantype=macro title=#Allergies(ListType:Bulleted,ValueIfNull:NKDA)><ul> <li>duloxetine HCl</li></ul></span>
<span><span class=clinicalNoteSectionVisible id=[id number] internalbreaksection=false originalname=Medications" recognizeconcepts=true spantype=section suppressempty=false&g t;Medications:</span>
<span class=clinicalNoteMacrAudinatecompass memorial healthcare id=heber [id number] macroname=CurrentMedications parameters=ListType:Bullet ed spantype=macro title=#CurrentMedications(ListType:Bulleted)><ul> [...] 20 mg tablet</li> <li>PreserVision AREDS 2 (Vit C,F-Yn-Yimzlv-Lutein-Zeaxan Oral 250 mg-90 mg-40 mg-1 mg)</li> <li>Cholecalciferol [...] Never vaped</span>
. Lives with her in [place]. 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 Smokes 1/2 PPD. 40 years. 5-6 drinks [...] originalname=Physical Exam recogni zeconcepts=true spantype=section suppressempty=false>Physical Exam (Correctional Supply Supervisor Oncology):</span>
General: No acute distress, obese
Res [...] <td>
</td> <td>
</td> </tr> </tbody></table></span>
<span class=clinicalNoteMacroWyscompass memorial healthcare id=[id number] macroname=RecentLabResultsTable parameters =OptionalFlowsheetCategory:Chemistries,Label:CMP spantype=macro title= #RecentLabResultsTable(OptionalFlowsheetCategory:Chemistries,Label:CMP)>CMP<tab le border=1 style=width:100%> <tbody> <tr> <th align=left&quo t;>LabResults</th> <td>09/15/2024</td> <td>03/17/2024</td> <td&g t;09/07/2023</td> <td>09/04/2023</td> <td>05/23/2023</td> <td>02/20/2023</td> </tr> <tr> <th align=left> Chemistries</th> <td>
</td> <td>
</td> <td>
</td> <td>
</td> <td>
</td> <td>
</td> </tr> </tbody></table></span>
<span class="clinicalNoteMacroWyscompass memorial healthcare id=[id number] macroname=RecentLabResultsTable parameters=OptionalFlowsheetCategory:Coags,Label:Coagulation spantype=&quo t;macro title=#RecentLabResultsTable(OptionalFlowsheetCategory:Coags,Label:Coagulation) "></span>
<span class=clinicalNoteMacroW[facility]compass memorial healthcare id=macro_[id number] macroname=RecentLabResultsTable parameters=OptionalFlowsheet Category:Tumor Markers spantype=macro title=#RecentLabResultsTable(OptionalF lowsheetCategory:Tumor [...] & Plan recognizeconcepts=true spantype=section" suppressempty=false>Assessment & Plan (Correctional Supply Supervisor Oncology):</span>
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 <span>Completed maintenance therapy on the (GOG-3020) DEB trial 10/25/20. Here today for surveillance. </span>

1. Stage IVB fallopian tube cancer
<ul> <li>Tyspiuvu68/31/24 CT scan; negative for any recurrent or [...] 11/2024- BI-RADS Category 1; prefers this done [facility]. Repeat for November, ordered. </li> <li>mammogram [...] discussed today. </li></ul>4. Tobacco dependence<ul> <li>Continued to assessment counselor about smoking cessation and long-term effects [...] &am p;nbsp;</li></ul>8. CHF
<ul> <li>follows with cardiology, [facility] Q 6 months. </li></ul>RTC 6 months or sooner prn&l t;br>

<span class=clinicalNoteSectionVisible id=section_[id number] internalbreaksection=false originalname=Plan for Pain recognizeconcepts=true spantype=section suppressempty=false>Pain Care Management:</span>
<span><span class=clinicalNoteMacroWysiwyg id=[id number] macroname=PatientPainScale parameters=&quo t;Label:Pain Scale: ,LookBackDays:0,ValueIfNull:Not recorded on visit spantype=macro" title=#PatientPainScale(Label:Pain Scale: ,LookBackDays:0,ValueIfNull:Not recorded on visit)>Pain Scale: 0</span></span></span>
<span><span>
<span class=clinicalNoteSectionVisible id=[id number] internalbreaksection=false originalname=Patient Care Management recognizeco ncepts=true spantype=section suppressempty=false>Patient Care needs:</span>
<span class=clinicalNoteMacroWysiwyg id=[id number] macroname=DepressionStatus parameters=Label:Depressions Status: ,ValueIfNull:Not recorded on visit spantype=macro title=#DepressionStatus(Molly ramseyel:Depressions Status: ,ValueIfNull:Not recorded on visit)>Depressions Status: Was not screened Reason: Patient Refused; Screening Date: 03/17/2025</span>
Psycho-Social PHQ-9 Follow-up Plan (if applicable):
<span><span class=clinicalNoteMacrOhioHealth Southeastern Medical Centeryg" id=[id number] macroname=PatientSmokingStatus parameters=&q uot;Label:Smoking Status: ,ValueIfNull:Not recorded spantype=macro title=#Pa tientSmokingStatus(Label:Smoking Status: ,ValueIfNull:Not recorded)>Smoking Status: Smoking Tobacco : Current every day smoker; Smokeless Tobacco : Never used smokeless tobacco; Vaping : Never vaped</span></span></span></span><span><span></span>< /span>

<hr><span><strong>Pippa Sy CNP</strong>
<span [facility]Not[facility] id=[id number] macroname=LocationPhoneNumber parameters=Label:Phone: spantype=macro" title=#LocationPhoneNumber(Label:Phone: )> </span>&lt ;br><span [facility]=clinicalNoteMacrC[facility] id=[id number] mac roname=LocationFaxNumber parameters=Label:Fax: spantype=macro t itle=#LocationFaxNumber(Label:Fax: )> </span>

Copy to: <span class=clinicalNoteMacroWyscompass memorial healthcare id=[id number]" macroname=NoteRecipients spantype=macro title=#NoteRecipients>Silver Whalen MD
FAX</span></span>

</div>

<div><span class=eSignSignature>Electronically signedby Pippa Peacockler INSERT MOLDING OPERATOR 03/17/2025 14:00 CDT</span></div></body></html> * WATER AND SEWER SYSTEMS SUPERINTENDENT Follow-Up <html><head></head><body><div style=text-align:center><span class=clinicalNoteMacroWysiwyg id=[id number] macroname=&quo t;PracticeLetterhead spantype=macro title=#PracticeLetterhead><img tzimnd=153 src=[email or web address]?type=1&mhlaUwdmkolkrkXc=[id number] omiem=669></span>

<strong>GYNECOLOGIC ONCOLOGY FOLLOW-UP VISIT</strong>
</div><div>
<strong>Patient Name:</strong> <span class=clinicalNoteMacroWysiwyg id=[id number] macroname=PatientName spantype=macro title=#PatientName>MONIK GALLEGO</span> <strong>:</strong> <span class=clinicalNoteMacroWysiwyg id=[id number] macroname=PatientDateOfBirth spantype="macro title=#PatientDateOfBirth>1950</span>
<strong>Date of Visit:</strong> <span class=clinicalNoteMacroWysiwyg id=macro_[id number] macroname=EffectiveDate spantype=macro title=#Eff ectiveDate>09/15/2024</span>
<strong>Referring Provider:</strong> <span class=clinicalNoteMacroWysiwyg id=[id number] macronam e=ReferringPhysician spantype=macro title=#ReferringPhysician&gt ; </span>
<strong>Attending:</strong> <span class=clinicalNoteMacroWysiwyg id=[id number] macroname= AttendingPhysician spantype=macro title=#AttendingPhysician>Romelia Kelley (Gynecological/Oncology), Annamarie Shilpa (Gynecological/Oncology)</span>
<span>
<span class=clinicalNoteSectionVisible id=[id number] internalbreaksection=false originalname=Chief Complaint" recognizeconcepts=true spantype=section suppressempty=false">Chief Complaint (Correctional Supply Supervisor Oncology):</span>
Surveillance
<span class=&quo t;clinicalNoteSectionVisible id=[id number] internalbreaksection="false originalname=HPI recognizeconcepts=true spantype=section" suppressempty=false>History of Present Illness (Correctional Supply Supervisor Oncology):</span>
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 Here for surveillance. &lt ;br>
<strong>TUMOR HISTORY:</strong> <span><ul> <li>12/31/17: Presented to [place] ED with 2 day history of lower abdominal cramping, diarrhea, and bright red rectal bleeding. CT A/P demonstrated a 13.7 x 11.8 cm complex solid mass involving the left adnexa invading the sigmoid colon, thickening of the wall of the descending colon, peritoneal carcinomatosis, para-aortic adenopathy and a 3.9 x 2.7 cm soft tissue mass right lung base.</li> <li>01/01/18: Transferred to [facility]. CT Chest demonstrated multiple nodules of varying size ident ified both lungs predominantly in the right lung. CA125 = 250.7, CEA 1.4</li> <li>01/02/18: Colonoscopy ? no invasion or mass obstruction. Biopsy c/w ischemic pattern of injury. 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 placebo)</s angelica></li> <li>01/20/19: CT C/A/P - Small oval shaped soft tissue mass In the left pelvis 1.7 x 0.9 cm, previously 2.3 x 1.2cm. Colonic diverticulosis. Stable left renal cyst. Small hiatal hernia.</li> <li>01/22/19: I1P2-Njdixqqkj or Placebo + Nivolumab or Placebo</li> <li>02/17/19: T4T7-Sxxnlmffte or Placebo + Nivolumab or Placebo - HELD Rucaparib or Placebo for 1 week w/ hyponatremia</li> <li>03/19/19: A6F6-Naakdcqyqy or Placebo + Nivolumab or Placebo - [...] evidence of recurrent disease.</li> <li>04/16/2019-06/11/19: C8D1- C10D1 [place] trial</li> <li>07/07/19: CT C/A/P W - scattered 2-3 mm pulmonary nodules bilaterally. No suspicious pulmonary nodule. Stable sub cm a portal caval lymph node. Stable 17 x 8 mm soft tissue density along the left external iliac chain/pelvic side wall. Small hernia measuring 2.1 cm, adjacent to the midline incision. </li> <li>07/09/19-09/01/19: L27E8-R02I5 GOG-3020 DEB Clinical Trial</li> <li>09/23/2019: CT C/A/P [...] bilateral subcm inguinal lymph nodes. </li> <li>09/29/2019-02/16/2020: X48Q1-P46M6 GOG-3020 DEB Clinical trial, CA125 = 8.1</li> [...] through the defect unchanged. IGLESIA. </li> <li>03/15/2020-09/27/20: Y07Y2-W85A0 GOG-3020 DEB Clinical trial</li> <li>10/25/20: <strong>Completed GOG-3020 [...] originalname=Genetic Testing recognizeconcepts=true sp antype=section suppressempty=false>Genetic Testing (Correctional Supply Supervisor Oncology):</sp an>
<ul> <li>10/02/18: BRCA2 mutation c.2312T>G (p.Poq665)</li>& lt;/ul>
<span><span><span></span></span></span><b r><span><span><span></span></span></span></span></sp an>
<span><span><span><span class=clinicalNoteSectionVisible" id=[id number] internalbreaksection=false originalname=& quot;Interval History (Correctional Supply Supervisor Oncology) recognizeconcepts=true spantype=section suppressempty=false>Interval History (Correctional Supply Supervisor Oncology)</span></span>& lt;/span>
Monik is here today for a surveillance exam. She doing fine. Denies vaginal bleeding, abdominal pain or bloating. Eating without issue. Normal bladder and bowel function. Continues on Gabapentin 200 mg BID-CIPN stable. Recently missed morning dose of gabapentin and could feel worsening neuropathy in bilateral LE but mid day. Due for breast MRI in November; would like to go to [facility] for imaging. Issues with coverage in past, so had to go to [facility] with [facility] scan; didn't tolerate positioning. [...] <li>Obesity</li> <li>Hyperlipidemia</li> <li>Tobacco dependence</li> <li&gt ;Adenocarcinoma - chemical inspector origin</li> <li>BRCA2 mutation</li> <li>Pulmonary nodules - 06/2019 </li> <li>Hernia, paramidline </li></ul>
<span class=clinicalNoteSectionVisible id=[id number] internalbreaksection=false originalname=Past Surgical History recognizeconce pts=true spantype=section suppressempty=false>Surgical Histor y:</span>
<ul> <li>Colonoscopy
</li> <li>Neck lymph node dissection (benign) 15 years ago
</li> <li>Exploratory laparotomy, total abdominal hysterectomy, bilateral salpingo-oophorectomy, bilateral retroperitoneal dissection, left ureterolysis, omentectomy, cystoscopy - 07/11/18</li></ul>
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
<strong>GYNECOLOGIC HISTORY: </strong><ul> <li>Menarche: 12 LMP: [...] id=[id number] internalbreaksection=false originalname=Allergies recognizeconcepts=true spantype=section suppressempty=false>Allergies:</span>
<span [facility]Not[facility] id=[id number]" macroname=Allergies parameters=ListType:Bulleted,ValueIfNull:NKDA spant ype=macro title=#Allergies(ListType:Bulleted,ValueIfNull:NKDA)><ul> <li>duloxetine HCl</li></ul></span>
<span><span class=&qu ot;clinicalNoteSectionVisible id=[id number] internalbreaksection="false originalname=Medications recognizeconcepts=true spantype="section suppressempty=false>Medications:</span>
<span class =clinicalNotMer[facility] St[facility] HospitalcroWysiwyg id=[id number] macroname=CurrentM edications parameters=ListType:Bulleted spantype=macro title=#Cu [...] 20 mg tablet</li> <li>PreserVision AREDS 2 (Vit C,K-My-Ismyei-Lutein-Zeaxan Oral 250 mg-90 mg-40 mg-1 mg)</li><li>Cholecalciferol Oral [...] Never vaped</span>
. Lives with her in [place]. 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 Smokes 1/2 PPD. 40 years. 5-6 drinks [...] internalbreaksection=false originalname=Physical Exam recognizeconcepts=true" spantype=section suppressempty=false>Physical Exam (Correctional Supply Supervisor Oncology):</span>
General: No acute distress, well-appearing
Respiratory: [...] macroname=RecentLabResultsTable parameters=Optiona lFlowsheetCategory:Coags,Label:Coagulation spantype=macro title=#RecentLabRe sultsTable(OptionalFlowsheetCategory:Coags,Label:Coagulation)></span>
<span class=clinicalNoteMacroWyscompass memorial healthcare id=[id number] macroname= RecentLabResultsTable parameters=OptionalFlowsheetCategory:Tumor Markers spantype=macro title=#RecentLabResultsTable(OptionalFlowsheetCategory:Tumor [...] & Plan" recognizeconcepts=true spantype=section suppressempty=false>Assessment & Plan (Correctional Supply Supervisor Oncology):</span>
Monik Gallego is a 73 year [...] BI-RADS Category 1; prefers this done at [facility]. Repeat for November, ordered today. </li> <li>normal [...] discussed today. </li></ul>4. Tobacco dependence<ul> <li>Continued to assessment counselor about smoking cessation and long-term effects [...] BMs. </li></ul>8. CHF
<ul> <li>follows with cardiology, [facility] Q 6 months. </li> <li>no recent exacerbations [...]
RTC 6 months or sooner prn for QM251qer scan review.

<span class=clinicalNoteS ectionVisible id=[id number] internalbreaksection=false [...] signed by Pippa Sy CNP 09/15/2024 12:22 NON DESTRUCTIVE TESTER&l t;/span></div></body></html>
--- OUTSIDE RECORDS SUMMARY | 2025-07-20 00:15 | XMS_ITS ---
Author Name Interface, [id number] lity Address [address] [place] [address] Oncology Address [facility] [place] [address] Allergies and Adverse Reactions Plan Reason for Visit Encounters Immunizations Diagnostic Results Medications Problems Vital Signs
[2025-07-20 00:16] LABS: PCO2 VBG 67 mmHG (40-50); Slide Review Reflex No
--- OUTSIDE RECORDS SUMMARY | 2025-07-20 00:16 | XMS_ITS ---
Author Name Interface, [id number] lity Address [address] [place] [address] Oncology Address [facility] [place] [address] Allergies and Adverse Reactions Plan Reason for Visit Encounters Immunizations Diagnostic Results Medications Problems Vital Signs
--- OUTSIDE RECORDS SUMMARY | 2025-07-20 00:16 | XMS_ITS ---
Author Name Interface, [id number] lity Address [address] [facility] [address] [address] [facility] Oncology Address [address] [facility] [address] [address] Allergies and Adverse Reactions Medication/Group Name Reaction [...] Ordered By Specimen Source Lab Address 08/11 [facility] other lab See starch factory laborer d 11/10 [facility] other lab See starch factory laborer d 11/14 [facility] other lab See starch factory laborer d 11/16 [facility] other lab See starch factory laborer d 02/17 [facility] other lab See starch factory laborer d 03/11 [facility] other lab See starch factory laborer d 03/24 [facility] other lab See starch factory laborer d 04/07 [facility] other lab See starch factory laborer d 05/18 CA 125 panel CA 125 UNITS/ ML 0.0 34.0 9.50 Test performed at [facility] on a [employer] ay Analyzer that uses an immunoenz ymometric sandwich assay for analysis. Patient testing should not be performed using multiple hallie soto due to analytica l variation seen between test hallie soto. FINAL Harper Wheeler [facility] - [place], [address] [facility] [address] [facility] [phone] 0 Phone: () - 11/06 [facility] other lab See starch factory laborer d 11/14 CA 125 panel CA 125 UNITS/ ML 0.0 34.0 12.60 Test performed at [facility] on a [employer] 2000 Immunoass ay Analyzer that uses an immunoenz ymometric sandwich assay for analysis. Patient testing should not be performed using multiple methodolo gies due to analytica l variation seen between test methodolo gies. FINAL Harper Summer [facility] - [place], [address] [facility] [address] [facility] [phone] 0 Phone: () - 02/20 [facility] other lab See starch factory laborer d 05/23 CA 125 panel CA 125 UNITS/ ML 0.0 34.0 10.30 Test performed at [facility] on a [employer] 2000 Immunoass ay Analyzer that uses an immunoenz ymometric sandwich assay for analysis. Patient testing should not be performed using multiple methodolo gies due to analytica l variation seen between test methodolo gies. FINAL Pippa worthington [email or web address] a Oncology [facility], [address] [facility] [address] [facility] [phone] 0 Phone: () - 09/04 [facility] other lab See starch factory laborer d 09/07 CA 125 panel CA 125 UNITS/ ML 0.0 34.0 9.80 Test performed at [facility] on a [employer] 2000 Immunoass ay Analyzer that uses an immunoenz ymometric sandwich assay for analysis. Patient testing should not be performed using multiple methodolo gies due to analytica l variation seen between test methodolo gies. FINAL Theresa worthington [employer] [facility] - [place], [address] [facility] [address] [facility] [phone] 0 Phone: () - 03/17 CA 125 panel CA 125 U/ML 0.0 35.0 12.40 Test performed at [facility] on a [employer] Immunoass ay Analyzer that uses an immunomet negro immunoass ay technique . Patient testing should not be performed using multiple methodolo gies due to analytica l variation seen between test methodolo gies. FINAL Theresa Alvares [place] [facility] - [place], [address] [facility] [phone] 0 09/15 CA 125 panel CA 125 U/ML 0.0 35.0 8.60 Test performed at [facility] on a [employer] 7600 Immunoass ay Analyzer that uses an immunomet negro immunoass ay technique . Patient testing should not be performed using multiple methodolo gies due to analytica l variation seen between test methodolo gies. FINAL Pippa worthington * [facility] , [address] [facility] [facility] [address] [facility] [phone] 0 03/17 CA 125 panel CA 125 U/ML 0.0 35.0 8.90 Test performed at [facility] on a [employer]0 Immunoass ay Analyzer that uses an immunomet negro immunoass ay technique . Patient testing should not be performed using multiple methodolo gies due to analytica l variation seen between test methodolo gies. FINAL Pippa Kenney r * [facility] , [address] [facility] [address] [facility] [phone] 0 Medications Date Name Route Dose Frequency [...] Active Vital Signs Date Type Value 08/11/2021 BMI 36.54 08/11/2021 Height 64.50 08/11/2021 Weight 216.20 08/11/2021 Pain Scale 0.00 08/11/2021 BSA 2.03 08/11/2021 Oxygen Saturation 95.00 08/11/2021 Respiratory Rate 16.00 08/11/2021 Heart Beat 70.00 08/11/2021 Body Temperature 98.20 08/11/2021 Intravascular Systolic 130 08/11/2021 Intravascular Diastolic 74 11/14/2021 BMI 37.35 11/14/2021 Height 64.50 11/14/2021 Weight 221.00 11/14/2021 Pain Scale 0.00 11/14/2021 Intravascular Systolic 108 11/14/2021 Intravascular Diastolic 62 11/14/2021 Oxygen Saturation 92.00 11/14/2021 Respiratory Rate 16.00 11/14/2021 Heart Beat 66.00 11/14/2021 Body Temperature 98.50 11/14/2021 BSA 2.05 05/18/2022 Body Temperature 98.50 05/18/2022 Heart Beat [...]
--- OUTSIDE RECORDS SUMMARY | 2025-07-20 00:16 | XMS_ITS | Clinical Summary ---
Author Organization [facility] Facility Address [address] [address] Care Team Providers Care Sterile Processing Technician Name Role Phone Unavailable Primary Care [...] patient's age to complete this topic Insurance [facility] Medicare
--- OUTSIDE RECORDS SUMMARY | 2025-07-20 00:16 | XMS_ITS ---
Author Name Interface, [id number] lity Address [address] [facility] [address] [address] [facility] Oncology Address [address] [facility] [address] [address] Allergies and Adverse Reactions Medication/Group Name Reaction [...] Ordered By Specimen Source Lab Address 08/11 [facility] [place] See technical sales engineer d 11/10 [facility] other lab See technical sales engineer d 11/14 [facility] other lab See technical sales engineer d 11/16 [facility] other lab See technical sales engineer d 02/17 [facility] other lab See technical sales engineer d 03/11 [facility] other lab See technical sales engineer d 03/24 [facility] other lab See technical sales engineer d 04/07 [facility] other lab See technical sales engineer d 05/18 CA 125 panel CA 125 UNITS/ ML 0.0 34.0 9.50 Test performed at [facility] on a [employer] ay Analyzer that uses an immunoenz ymometric sandwich assay for analysis. Patient testing should not be performed using multiple hallie soto due to analytica l variation seen between test hallie soto. FINAL Harper Wheeler [facility] Oncology - [place], [address] [facility] [facility] [address] [facility] [phone] 0 Phone: () - 11/06 [facility] lab See technical sales engineer d 11/14 CA 125 panel CA 125 UNITS/ ML 0.0 34.0 12.60 Test performed at [facility] on a [employer] 2000 Immunoass ay Analyzer that uses an immunoenz ymometric sandwich assay for analysis. Patient testing should not be performed using multiple methodolo gies due to analytica l variation seen between test methodolo gies. FINAL Harper Summer [facility] - [place], [address] [facility] [facility] [address] [facility] [phone] 0 Phone: () - 02/20 [facility] lab See technical sales engineer d 05/23 CA 125 panel CA 125 UNITS/ ML 0.0 34.0 10.30 Test performed at [facility] on a [employer] 2000 Immunoass ay Analyzer that uses an immunoenz ymometric sandwich assay for analysis. Patient testing should not be performed using multiple methodolo gies due to analytica l variation seen between test methodolo gies. FINAL Pippa worthington [employer] [facility], [address] [facility] [address] [facility] [address] [facility] [phone] 0 Phone: () - 09/04 [facility] lab See technical sales engineer d 09/07 CA 125 panel CA 125 UNITS/ ML 0.0 34.0 9.80 Test performed at [facility] on a [employer] 2000 Immunoass ay Analyzer that uses an immunoenz ymometric sandwich assay for analysis. Patient testing should not be performed using multiple methodolo gies due to analytica l variation seen between test methodolo gies. FINAL Theresa worthington [employer] [facility] - [place], [address] [facility] [facility] [address] [facility] [phone] 0 Phone: () - 03/17 CA 125 panel CA 125 U/ML 0.0 35.0 12.40 Test performed at [facility] on a [employer]0 Immunoass ay Analyzer that uses an immunomet negro immunoass ay technique . Patient testing should not be performed using multiple methodolo gies due to analytica l variation seen between test methodolo gies. FINAL Theresa Alvares [place] - [place], [address] [facility] [address] [facility] [phone] 0 09/15 CA 125 panel CA 125 U/ML 0.0 35.0 8.60 Test performed at [facility] on a [employer] 7600 Immunoass ay Analyzer that uses an immunomet negro immunoass ay technique . Patient testing should not be performed using multiple methodolo gies due to analytica l variation seen between test methodolo gies. FINAL Pippa worthington * [facility] Oncology , [address] [facility] [address] [facility] [phone] 0 03/17 CA 125 panel CA 125 U/ML 0.0 35.0 8.90 Test performed at [facility] on a [employer]0 Immunoass ay Analyzer that uses an immunomet negro immunoass ay technique . Patient testing should not be performed using multiple methodolo gies due to analytica l variation seen between test methodolo gies. FINAL Pippa Kenney r * [facility] , [address] [facility] [address] [facility] [phone] 0 Medications Date Name Route Dose Frequency [...]
--- OUTSIDE RECORDS SUMMARY | 2025-07-20 00:16 | XMS_ITS ---
Author Name Interface, [id number] lity Address [address] [facility] [address] [address] [facility] Address [address] [facility] [address] [address] Allergies and Adverse Reactions Medication/Group Name Reaction [...] K/uL 3.0 8.9 8.9 FINAL Harper Wheeler [facility], [address] [place] [id number] 0 Phone: () - 05/23 CBC w/ auto diff HGB g/dL 11.3 15.2 15.7 High FINAL [facility] [place] [facility], [address] [place] [address] [address] [place] [id number] 0 Phone: () - 05/23 CBC w/ auto diff PLT K/uL 113.0 364.0 220 FINAL Harper Peters [facility]cology - [place], [address] [place] [address] [address] [place] [id number] 0 Phone: () - 05/23 CBC w/ auto diff Avtar # (ANC) K/uL 1.6 6.6 5.5 FINAL Harper Mcginnisot a Oncology - [place], [address] [place] [address] [address] [place] [id number] 0 Phone: () - 05/23 CBC w/ auto diff Avtar % % 43.0 74.0 62.5 FINAL Harper Mcginnisot a Oncology - [place], [address] [place] [address] [address] [place] [id number] 0 Phone: () - 05/23 CBC w/ auto diff IG % % 0.0 0.5 0.5 FINAL Harper Mcginnisot a Oncology - [place], [address] [place] [address] [address] [place] [id number] 0 Phone: () - 05/23 CBC w/ auto diff IG # K/uL 0.0 0.03 0.04 High FINAL Harper Mcginnisot a Oncology - [place], [address] [place] [address] [address] [place] [id number] 0 Phone: () - 05/23 CBC w/ auto diff LY % % 14.0 41.0 22.5 FINAL Harper Mcginnisot a Oncology - [place], [address] [place] [address] [address] [place] [id number] 0 Phone: () - 05/23 CBC w/ auto diff MO % % 6.0 15.0 8.0 FINAL Harper Mcginnisot a Oncology - [place], [address] [place] [address] [address] [place] [id number] 0 Phone: () - 05/23 CBC w/ auto diff EO % % 0.0 7.0 5.9 FINAL Harper Mcginnisot a [facility]cology - [place], [address] [place] [address] [address] [place] [id number] 0 Phone: () - 05/23 CBC w/ auto diff BA % % 0.0 2.0 0.6 FINAL Harper Mcginnisot a Oncology - [place], [address] [place] [address] [address] [place] [id number] 0 Phone: () - 05/23 CBC w/ auto diff LY # K/uL 0.4 3.6 2.0 FINAL Harper noel [facility] - [place], [address] [place] [address] [address] [place] [id number] 0 Phone: () - 05/23 CBC w/ auto diff MO # K/uL 0.2 1.3 0.7 FINAL Harper noel [facility] - [place], [address] [place] [address] [address] [place] [id number] 0 Phone: () - 05/23 CBC w/ auto diff EO # K/uL 0.0 0.6 0.5 FINAL Harper noel [facility] - [place], [address] [place] [address] 200 [place] [id number] 0 Phone: () - 05/23 CBC w/ auto diff BA # K/uL 0.0 0.2 0.1 FINAL Harper noel [facility] - [place], [address] [place] [address] [address] [place] [id number] 0 Phone: () - 05/23 CBC w/ auto diff NRBC % #/100W BC 0.0 0.2 0.0 FINAL Harper noel [facility] - [place], [address] [place] [address] [address] [place] [id number] 0 Phone: () - 05/23 CBC w/ auto diff RBC M/uL 3.9 5.1 4.85 FINAL Harper noel [facility] - [place], [address] [place] [address] [address] [place] [id number] 0 Phone: () - 05/23 CBC w/ auto diff HCT % 35.0 48.0 47.1 FINAL Harper noel [facility] - [place], [address] [place] [address] [address] [place] [id number] 0 Phone: () - 05/23 CBC w/ auto diff MCV fL 80.0 104.0 97.1 FINAL Harper noel [facility] - [place], [address] [place] [id number] 0 Phone: () - 05/23 CBC w/ auto diff MCH pg 26.0 35.0 32.4 FINAL Harper noel [facility] - [place] [facility], [address] [place] [address] 200 [place] [id number] 0 Phone: () - 05/23 CBC w/ auto diff MCHC g/dL 30.0 35.0 33.3 FINAL Harper noel Oncology [place] [facility], [address] [place] [address] 200 [place] [id number] 0 Phone: () - 05/23 CBC w/ auto diff MPV fL 9.5 13.4 9.1 Low FINAL Harper [facility]el [facility], [address] [place] [address] 200 [place] [id number] 0 Phone: () - 05/23 CBC w/ auto diff RDW % 11.4 16.1 13.00 FINAL Harper noel Oncology [facility], [address] [place] [address] 200 [place] [id number] 0 Phone: () - 05/23 CMP Album in g/dL 3.2 5.2 4.6 FINAL Harper Mcginnis bert [facility], [address] [id number] 0 Phone: () - 05/23 CMP Alkal ine phosp hatas e U/L 46.0 116.0 58 FINAL [facility], [address] [facility] [address] [place] [id number] 0 Phone: () - 05/23 CMP ALT/S GPT U/L 7.0 40.0 11 [facility] [address] [id number] 0 Phone: () - 05/23 CMP AST/S GOT U/L 13.0 40.0 23 FINAL [facility], [address] [facility] [address] [id number] 0 Phone: () - 05/23 CMP BUN mg/dL 9.0 23.0 15 FINAL Harper noel [facility], [address] [facility] [id number] 0 Phone: () - 05/23 CMP Calci um mg/dL 8.7 10.4 10.1 FINAL Harper noel [facility], [address] [facility] [id number] 0 Phone: () - 05/23 CMP Chlor sathish mmol/L 96.0 114.0 88 Low FINAL [facility], [address] [facility] [address] [facility] [id number] 0 Phone: () - 05/23 CMP CO2 [...] the 96 hour stability window. FINAL [facility], [address] [facility] [address] [place] [id number] 0 Phone: () - 05/23 CMP Creat inine mg/dL 0.5 1.2 0.97 FINAL Harper Wheeler [facility], [address] [facility] [address] [place] [id number] 0 Phone: () - 05/23 CMP GFR estim ate ml/min /1.73m ^2 58.5 Low GFR is calculate d using the CKD-EPI equation. FINAL Harper Wheeler [facility], [address] [facility] [address] [facility] [id number] 0 Phone: () - 05/23 CMP Gluco se mg/dL 73.0 126.0 72 Low FINAL [facility], [address] [facility] [id number] 0 Phone: () - 05/23 CMP Potas sium mmol/L 3.5 5.1 4.8 FINAL Harper Wheeler [facility], [address] [facility] [address] [facility] [id number] 0 Phone: () - 05/23 CMP Sodiu m mmol/L 136.0 145.0 129 Low FINAL Harper noel [facility], [address] [facility] 100 [facility] [id number] 0 Phone: () - 05/23 CMP Bilir ubin, total mg/dL 0.3 1.2 0.3 FINAL [facility], [address] [facility] 100 [facility] [id number] 0 Phone: () - 05/23 CMP Total prote in g/dL 5.7 8.2 7.3 FINAL [facility], [address] [facility] 100 [facility] [id number] 0 Phone: () - 05/23 CA 125 panel CA 125 UNITS/ ML 0.0 34.0 7.00 Test performed at [facility] on a [employer] 2000 Immunoass ay Analyzer that uses an immunoenz ymometric sandwich assay for analysis. Patient testing should not be performed using multiple methodolo gies due to analytica l variation seen between test methodolo gies. FINAL Harper Mcginnis bert [facility], [address] [facility] 100 [facility] [id number] 0 Phone: () - 05/23 [facility] [place] [place] other lab See train controller d 08/11 [facility] [place] [place] other lab See train controller d 11/10 [facility] [place] [place] other lab See train controller d 11/14 [facility] [place] [place] other lab See train controller d 11/16 [facility] [place] [place] other lab See train controller d 02/17 [facility] [place] [place] other lab See train controller d 03/11 [facility] [place] [place] other lab See train controller d 03/24 [facility] [place] [place] other lab See train controller d 04/07 [facility] [place] [place] other lab See train controller d 05/18 CA 125 panel CA 125 UNITS/ ML 0.0 34.0 9.50 Test performed at [facility] on a [employer] 2000 Immunoass ay Analyzer that uses an immunoenz ymometric sandwich assay for analysis. Patient testing should not be performed using multiple methodolo gies due to analytica l variation seen between test methodolo gies. FINAL Harper Peters a Oncology - [place], [address] [facility] [address] [facility] [id number] 0 Phone: () - 11/06 [facility] [place] [place] other lab See train controller d 11/14 CA 125 panel CA 125 UNITS/ ML 0.0 34.0 12.60 Test performed at [facility] on a [employer] 2000 Immunoass ay Analyzer that uses an immunoenz ymometric sandwich assay for analysis. Patient testing should not be performed using multiple methodolo gies due to analytica l variation seen between test methodolo gies. FINAL Harper Peters a Oncology - [facility] [address] [facility] [address] [facility] [id number] 0 Phone: () - 02/20 [facility] [place] [place] other lab See train controller d 05/23 CA 125 panel CA 125 UNITS/ ML 0.0 34.0 10.30 Test performed at [facility] on a [employer] 2000 Immunoass ay Analyzer that uses an immunoenz ymometric sandwich assay for analysis. Patient testing should not be performed using multiple methodolo gies due to analytica l variation seen between test methodolo gies. FINAL Pippa worthington ponUpot a Oncology - [facility] [address] [facility] [address] [facility] [id number] 0 Phone: () - 09/04 [facility] [place] [place] other lab See train controller d 09/07 CA 125 panel CA 125 UNITS/ ML 0.0 34.0 9.80 Test performed at [facility] on a [employer] 2000 Immunoass ay Analyzer that uses an immunoenz ymometric sandwich assay for analysis. Patient testing should not be performed using multiple methodolo gies due to analytica l variation seen between test methodolo gies. FINAL Theresa worthington Ras[facility] a Oncology - [place], [address] [facility] [address] [facility] [id number] 0 Phone: () - 03/17 CA 125 panel CA 125 U/ML 0.0 35.0 12.40 Test performed at [facility] on a [employer] Immunoass ay Analyzer that uses an immunomet negro immunoass ay technique . Patient testing should not be performed using multiple methodolo gies due to analytica l variation seen between test methodolo gies. FINAL Theresa Bollinge r * [place] [facility] [place], [facility] [address] [id number] 0 09/15 CA 125 panel CA 125 U/ML 0.0 35.0 8.60 Test performed at [facility] on a [employer] 7600 Immunoass ay Analyzer that uses an immunomet negro immunoass ay technique . Patient testing should not be performed using multiple methodolo gies due to analytica l variation seen between test methodolo gies. FINAL Pippa Anne Marie worthington * [facility] , [facility] [address] [facility] [id number] 0 03/17 CA 125 panel CA 125 U/ML 0.0 35.0 8.90 Test performed at [facility] on a [employer] 7600 Immunoass ay Analyzer that uses an immunomet negro immunoass ay technique . Patient testing should not be performed using multiple methodolo gies due to analytica l variation seen between test methodolo gies. FINAL Pippa Anne Marie r [facility] , 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
--- OUTSIDE RECORDS SUMMARY | 2025-07-20 00:16 | XMS_ITS ---
Author Name Interface, [id number] lity Address [address] [facility] [address] [address] [facility] Address [address] [facility] [address] [address] Allergies and Adverse Reactions Medication/Group Name Reaction [...] ML 0.0 34.0 9.80 Test performed at [facility] on a [employer] Immunoass ay Analyzer that uses an immunoenz ymometric sandwich assay for analysis. Patient testing should not be performed using multiple methodolo gies due to analytica l variation seen between test methodolo gies. FINAL Theresa [facility]ton [facility], [address] [facility] [address] [facility] [id number] 0 Phone: () - 03/17 CA 125 panel CA 125 U/ML 0.0 35.0 12.40 Test performed at [facility] on a [employer] Immunoass ay Analyzer that uses an immunomet negro immunoass ay technique . Patient testing should not be performed using multiple methodolo gies due to analytica l variation seen between test methodolo gies. FINAL Theresa Alvares [facility], [address] [facility] [address] [id number] 0 09/15 CA 125 panel CA 125 U/ML 0.0 35.0 8.60 Test performed at [facility] on a [employer] Immunoass ay Analyzer that uses an immunomet negro immunoass ay technique . Patient testing should not be performed using multiple methodolo gies due to analytica l variation seen between test methodolo gies. FINAL Pippa Kenney r [facility] , [address] [facility] [address] [facility] [id number] 0 03/17 CA 125 panel CA 125 U/ML 0.0 35.0 8.90 Test performed at [facility] on a [employer] Immunoass ay Analyzer that uses an immunomet negro immunoass ay technique . Patient testing should not be performed using multiple methodolo gies due to analytica l variation seen between test methodolo gies. 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

<strong>GYNECOLOGIC ONCOLOGY FOLLOW-UP VISIT</strong>
</div><div>
<strong>Patient Name:</strong> <span class=clinicalNotMelyssa id=[id number] macroname=PatientName spantype=macro title=#PatientName>MONIK GALLEGO</span> <strong>:</strong> <span class=clinicalNoteMaTej id=[id number] macroname=PatientDateOfBirth spantype="macro title=#PatientDateOfBirth>1950</span>
<strong>Date of Visit:</strong> <span class=clinicalNoteMaTej id=[id number] macroname=EffectiveDate spantype=macro title=#Ef fectiveDate>09/07/2023</span>
<strong>Referring Provider:</strong> <span class=clinicalHasmukh id=[id number] macron erick=ReferringPhysician spantype=macro title=#ReferringPhysician& gt; </span>
<strong>Attending:</strong> <span class=clinicalNotMelyssa id=[id number] macroname=&quot ;AttendingPhysician spantype=macro title=#AttendingPhysician>Theresaok Kelley (Gynecological/Oncology), Annamarie Shilpa (Gynecological/Oncology)</span>
<span>
<span class=clinicalNoteSectionVisible id=[id number] internalbreaksection=false originalname=Chief Complaint recognizeconcepts=true spantype=section suppressempty=false">Chief Complaint (Safety Associate Oncology):</span>
Surveillance

<span class=clinicalNoteSectionVisible id=[id number] internalbreaks ection=false originalname=HPI recognizeconcepts=true spantype=&q uot;section suppressempty=false>History of Present Illness (Safety Associate Oncology):</ span>
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 Here for surveillance.& amp;nbsp;

<strong>TUMOR HISTORY:</strong> <span><ul> <li>12/31/17: Presented to [place] ED with 2 day history of lower abdominal cramping, diarrhea, and bright red rectal bleeding. CT A/P demonstrated a 13.7 x 11.8 cm complex solid mass involving the left adnexa invading the sigmoid colon, thickening of the wall of the descending colon, peritoneal carcinomatosis, para- aortic adenopathy and a 3.9 x 2.7 cm soft tissue mass right lung base.</li> <li>01/01/18: Transferred to [facility]. CT Chest demonstrated multiple nodules of varying size identified both lungs predominantly in the right lung. CA125 = 250.7, CEA 1.4</li> <li>01/02/18: Colonoscopy no invasion or mass obstruction. Biopsy c/w ischemic pattern of injury. 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 place nely)</strong></li> <li>01/20/19: CT C/A/P - Small oval shaped soft tissue mass In the left pelvis 1.7 x 0.9 cm, previously 2.3 x 1.2cm. Colonic diverticulosis. Stable left renal cyst.Small hiatal hernia.</li> <li>01/22/19: Y1A9-Zdecohmye or Placebo + Nivolumab or Placebo</li> <li>02/17/19: D8B5-Abibndsniq or Placebo + Nivolumab or Placebo - HELD Rucaparib orPlacebo for 1 week w/ hyponatremia</li> <li>03/19/19: L2N6-Uvlqdkpehd or Placebo + Nivolumab or Placebo - [...] evidence of recurrent disease.</li> <li>04/16/2019-06/11/19: C8D1- C10D1 [place] trial</li> <li>: CT C/A/P W - scattered 2-3 mm pulmonary nodules bilaterally. No suspicious pulmonary nodule. Stable sub cm a portal caval lymph node. Stable 17 x 8 mm soft tissue density along the left external iliac chain/pelvic side wall. Small hernia measuring 2.1 cm, adjacent to the midline incision. </li> <li>07/09/19-09/01/19: [id number] GOG-3020 SERA Clinical Trial</li> <li>09/23/2019: CT C/A/P W - stable small bilateral pulmonary nodules measuring 2-3 mm. Mediastinal lymph nodes measuring up to 9 mm. Mild cardiomegaly. Stable cysts left kidney. Stable right paramidline abdominal wall hernia. Stable mild residual soft tissue density along the leftcommon iliac chain measuring 17 x 8 mm, series 2. Stable bilateral subcm inguinal lymph nodes. </li> <li>09/29/2019-02/16/2020: V37B9-H26G8 GOG-3020 SERA Clinical trial, CA125 = 8. [...] through the defect unchanged. IGLESIA. </li> <li>03/15/2020-09/27/20: M08X5-S02G4 GOG-3020 SERA Clinical trial</li> <li>10/25/20: <strong>Completed GOG-3020 [...] originalname=Genetic Testing recognizeconcepts=true spantype=&quot ;section suppressempty=false>Genetic Testing (Safety Associate Oncology):</span>
<ul> <li>10/02/18: BRCA2 mutation c.2312T>G (p.Bpw598)</li></ul>&l t;/span></span>
<span><span><span><span class=clinicalNoteSectionVisible id=[id number] internalbreaksection=false" originalname=Interval History (Safety Associate Oncology) recognizeconcepts=true spant ype=section suppressempty=false>Interval History (Safety Associate Oncology)</span& gt;</span></span>
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
<strong>GYNECOLOGIC HISTORY: </strong><ul> <li>Menarche: 12 [...] ection=false originalname=Medications recognizeconcepts=true spa ntype=section suppressempty=false>Medications:</span>
<span class=clinicalNotCleveland Clinic Marymount HospitalcroWysiwyg id=[id number] macroname=&quo t;CurrentMedications parameters=ListType:Bulleted spantype=macro title =#CurrentMedications(ListType:Bulleted)><ul> <li>Amlodipine Oral 10 mg tablet 1 tablet PO daily</li> <li>Gabapentin 300 mg capsule Take 2 capsules by mouth BID</li> <li>Aspirin Oral 81 mg tablet,delayed release (DR/EC) 1 tablet PO daily</li> <li>PreserVision AREDS 2 (Vit C,D-At-Dovxbo-Lutein-Zeaxan Oral 250 mg-90 mg-40 mg-1 mg)</li> <li>Lorazepam [...] Never vaped</span>
. Lives with her in [place]. 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 Smokes 1/2 PPD. 40 years. 5-6 drinks [...] internalbreaksection=false originalname=Physical Exam recognizeconcepts=true spantype=section suppressempty=false>Physical Exam (Safety Associate Oncology):</span>
General: No acute distress, well-appearing
Respiratory: [...] <td>
</td> </tr> </tbody></table></span>
<span class=clinicalNoteMacroWysiwyg id=[id number] macroname=RecentLabResultsTable parameters=OptionalFlowsheetCate gory:Coags,Label:Coagulation spantype=macro title=#RecentLabResultsTable(Opt ionalFlowsheetCategory:Coags,Label:Coagulation)></span>
<span class=&quot ;clinicalNoteMacroWysvirginia gay hospital id=[id number] macroname=RecentLabResul tsTable parameters=OptionalFlowsheetCategory:Tumor Markers spantype=macro&qu [...] Plan recognizeconcepts=true spantype=section suppressempty=& quot;false>Assessment & Plan (Safety Associate Oncology):</span>
Monik Gallego lucho 72 year old [...] for malignancy.</li></ul>5. Tobacco dependenc e<ul> <li>Continued to clinical mental health counselor about smoking cessation and long-term effects [...] the patient.

Theresa Kelley MD
Gynecologic Oncology [facility] Oncology
<span class=clinicalNoteSectionVisible id=[id number] internalbreaksection=false originalname=Plan for Pain recognizeconcepts=true spantype=section suppressempty=false>Pain Care Management:</span>
<span><span class=clinicalNoteMacroWysiwyg id=[id number] macroname=PatientPainScale parameters=Label:Pain Scale: ,LookBackDays:0,ValueIfNull:Not recorded on visit spantype=macro title=#PatientPainScale(Label:Pain Scale: ,LookBackDays:0,ValueIfNull:Not r ecorded on visit)>Pain Scale: 0</span></span></span>
<span&gt ;<span>
<span class=clinicalNoteSectionVisible id=[id number] internalbreaksection=false originalname=Patient Care Management&q uot; recognizeconcepts=true spantype=section [...]
--- OUTSIDE RECORDS SUMMARY | 2025-07-20 00:17 | XMS_ITS ---
Author Name Interface, [id number] [id number] Address [address] [facility] [address] [address] [facility] Address [address] [facility] [address] [address] Allergies and Adverse Reactions Medication/Group Name Reaction [...] ML 0.0 34.0 9.50 Test performed at [facility] on a [employer] 2000 Immunoass ay Analyzer that uses an immunoenz ymometric sandwich assay for analysis. Patient testing should not be performed using multiple methodolo gies due to analytica l variation seen between test methodolo gies. FINAL Harper [facility] [place] [address] [address] [facility] [address] [place] [address] [phone] Phone: () - 11/06 [facility] [place] other lab See adjunct instructor in economics d 11/14 CA 125 panel CA 125 UNITS/ ML 0.0 34.0 12.60 Test performed at [facility] on a [employer]Week Immunoass ay Analyzer that uses an immunoenz ymometric sandwich assay for analysis. Patient testing should not be performed using multiple methodolo gies due to analytica l variation seen between test methodolo gies. FINAL Harper Wheeler [facility] [place] [address] [address] [employer] [address] [phone] Phone: () - 02/20 [facility] other lab See adjunct instructor in economics d 05/23 CA 125 panel CA 125 UNITS/ ML 0.0 34.0 10.30 Test performed at [facility] on a [employer] 2000 Immunoass ay Analyzer that uses an immunoenz ymometric sandwich assay for analysis. Patient testing should not be performed using multiple methodolo gies due to analytica l variation seen between test methodolo gies. FINAL Pippa worthington [facility] [place] [address] [address] [employer] [address] [place] [address] [phone] Phone: () - 09/04 [facility] other lab See adjunct instructor in economics d 09/07 CA 125 panel CA 125 UNITS/ ML 0.0 34.0 9.80 Test performed at [facility] on a HyperWeek Immunoass ay Analyzer that uses an immunoenz ymometric sandwich assay for analysis. Patient testing should not be performed using multiple methodolo gies due to analytica l variation seen between test methodolo gies. FINAL Theresa worthington [facility], [address] [facility] [address] [place] [address] [phone] 0 Phone: () - 03/17 CA 125 panel CA 125 U/ML 0.0 35.0 12.40 Test performed at [facility] on a [employer] 7600 Immunoass ay Analyzer that uses an immunomet negro immunoass ay technique . Patient testing should not be performed using multiple methodolo gies due to analytica l variation seen between test methodolo gies. FINAL Theresa Georgi worthington * [facility] [place], [address] [place] [address] [place] [address] [phone] 09/15 CA 125 panel CA 125 U/ML 0.0 35.0 8.60 Test performed at [facility] on a [employer] 7600 Immunoass ay Analyzer that uses an immunomet negro immunoass ay technique . Patient testing should not be performed using multiple methodolo gies due to analytica l variation seen between test methodolo gies. FINAL Pippa Garciatammy worthington * [facility] , [facility] [address] [place] [address] [phone] 0 03/17 CA 125 panel CA 125 U/ML 0.0 35.0 8.90 Test performed at [facility] on a [employer] 7600 Immunoass ay Analyzer that uses an immunomet negro immunoass ay technique . Patient testing should not be performed using multiple methodolo gies due to analytica l variation seen between test methodolo gies. FINAL Pippa Garciatammy elin * [facility] , [address] [place] [address] [place] [address] [phone] Medications Date Name Route Dose Frequency [...]
[2025-07-20] MEDS: ALBUTEROL SULFATE 2.5 MG/3 ML VIAL.NEB NEB (00:28)
[2025-07-20 00:35] LABS: INR 0.88 (0.91-1.10); Prothrombin Time 12.7 Seconds
[2025-07-20 00:37] LABS: D Dimer Quantitative* 0.60 ug/ml (0.00-0.50)
[2025-07-20 00:48] LABS: NT Pro B Type NatriureticPept* 412 pg/mL (See Note); PCR FLU A Negative PCR FLU A (Negative); PCR FLU B Negative PCR FLU B (Negative); PCR RSV Negative PCR RSV (Negative); SARS PCR* Negative SARS-CoV-2 (Negative)
[2025-07-20 01:05] LABS: HCO3 VBG 32 mmol/L (21-28); PCO2 VBG 58 mmHG (40-50); PO2 VBG 34.2 mmHG (25-47); pH VBG 7.351 (7.32-7.43)
--- NOTE | 2025-07-20 02:35 | W.PM.TELEH&P ---
Telehealth- H&P: HPI History of Present Illness Time Seen by Provider: 02:00 Date Seen: 07/20/25 Chief complaint: shortness of breath Narrative: Monik Gallego is seen as an Interactive Telehealth visit. Monik Gallego is a 74 year old female with PMH of COPD, diastolic CHF, chronic respiratory failure on home O2, tobacco dependence and hyperglycemia who presented with acute onset of SOB. Patient notes that she began experiencing worsening shortness of breath earlier on 07/19/2025. That subsequently became much worse around 10 PM when she was sitting down and watching TV. It resulted in calling EMS, EMS noted patient was in significant respiratory distress with SaO2 in the 70s upon their arrival. They gave the patient a DuoNeb and subsequently placed the patient on BiPAP and brought her to ED. Upon arrival in ED, patient was symptomatically improved with SaO2 around 89% on room air, maintaining above 92% at 1 L/min NC. She was given additional DuoNeb therapy. Workup in ED: HR 81, BP 164/84 mmHg, SaO2 93% 1 L/min NC Labs with WBC 9.1, Hgb 14.1, platelet 205 NT proBNP 412, respiratory viral panel negative CXR Cardiomegaly with enlarged central pulmonary arteries. No acute findings. Patient admitted with COPD exacerbation. Patient was given Solu-Medrol 125 mg IV x 1 in ED and given DuoNebs. Admit to MedSurg Review of Systems Const: Reports: fatigue and malaise; Denies: fever or night sweats Cardio: Reports: shortness of breath with exertion; Denies: chest pain or edema Resp: Reports: shortness of breath and wheezing; Denies: cough GI: Denies: abdominal pain, nausea or vomiting : Denies: urinary frequency Neuro: Denies: headache or dizziness Endo: Reports: fatigue Allergy/Immuno: Reports: wheezing [facility] Medical History Hyperlipidemia (05/05/11) ?E78.5 - Hyperlipidemia, unspecified (ICD-10) Obesity (BMI 35.0-39.9 without comorbidity) ?E66.9 - Obesity, unspecified (ICD-10) BRCA2 positive ?Z15.01 - Genetic susceptibility to malignant neoplasm of breast (ICD-10) ?Z15.09 - Genetic susceptibility to other malignant neoplasm (ICD-10) Toenail fungus ?B35.1 - Tinea unguium (ICD-10) Health care directive on file ?Z78.9 - Other specified health status (ICD-10) Peripheral neuropathy ?G62.9 - Polyneuropathy, unspecified (ICD-10) Chronic hyponatremia ?E87.1 - Hypo-osmolality and hyponatremia (ICD-10) MONIKA on CPAP ?G47.33 - Obstructive sleep apnea (adult) (pediatric) (ICD-10) ?Z99.89 - Dependence on other enabling machines and devices (ICD-10) CO2 retention ?E87.2 - Acidosis (ICD-10) Polyp of colon (05/05/11) ?K63.5 - Polyp of colon (ICD-10) Pneumothorax ?J93.9 - Pneumothorax, unspecified (ICD-10) Obesity (05/05/11) ?E66.9 - Obesity, unspecified (ICD-10) Malignant neoplasm of ovary (2018) ?C56.9 - Malignant neoplasm of unspecified ovary (ICD-10) Ischemic colitis ?K55.9 - Vascular disorder of intestine, unspecified (ICD-10) Hypertension (05/05/11) ?I10 - Essential (primary) hypertension (ICD-10) Fracture of rib of right side ?S22.31XA - Fracture of one rib, right side, initial encounter for closed fracture (ICD-10) Contusion of back ?S20.229A - Contusion of unspecified back wall of thorax, initial encounter (ICD-10) Chemotherapy-induced neuropathy ?G62.0 - Drug-induced polyneuropathy (ICD-10) ?T45.1X5A - Adverse effect of antineoplastic and immunosuppressive drugs, initial encounter (ICD-10) Chemotherapy-induced nausea and vomiting ?R11.2 - Nausea with vomiting, unspecified (ICD-10) ?T45.1X5A - Adverse effect of antineoplastic and immunosuppressive drugs, initial encounter (ICD-10) Surgical History Status post dissection of cervical lymph nodes ?Z98.890 - Other specified postprocedural states (ICD-10) History of hysterectomy ?Z90.710 - Acquired absence of both cervix and uterus (ICD-10) History of colonoscopy ?Z98.890 - Other specified postprocedural states (ICD-10) Family History Father Coronary artery disease High blood pressure Mother Coronary artery disease Breast cancer Social History (Updated 05/06/25 @ 08:07 by Puja Arias~[facility], [facility]) Narrative: , lives with in [place]. Two adult children. 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 Alcohol use 4-5 drinks per week, no history of ETOH withdrawal. No recreational drug use. 1/2ppd smoker What is your current living situation?: I presently have a place to live Problems where you live: no known problems Problems where you live details: N/A In the past 12 months, utilities in danger of being shut off: no In past 12 months, lack of transportation kept you from medical appts, meetings, work, or getting things needed for daily living: no In the past 12 mos, have been you worried that your food would run out before you had money to buy more?: never true In the past 12 mos, the food you bought just didn't last and you didn't have money to buy more?: never true Highest level of school completed/degree received: Associate degree: occupational, technical, vocational program Smoking Status: Current every day smoker What tobacco products do you use: cigarettes Smoking packs per day: 0.5 Smoking cigarettes per day: 10.0 Years smoked: 50 Smoking pack-years: 25.00 Do you use any of these nicotine containing products: None Second hand tobacco smoke exposure: Yes How often do you have a drink containing alcohol: 2-4 times a month Alcohol type: wine How many standard drinks containing alcohol do you have on a typical day: 1 or 2 How often do you have six or more drinks on one occasion: Never AUDIT-C Alcohol total score: 2 Non-prescribed substance use: denies use Caffeine: Yes How often does anyone, including family, friends and others, physically hurt you: never How often does anyone, including family, friends and others, insult or talk down to you: rarely How often does anyone, including family, friends and others, threaten you with harm: never How often does anyone, including family, friends and others, scream or curse at you: never Are you using contraception or practicing any form of control: No service: No Health Related Social Needs: Other personal risk factors, not elsewhere classified (Z91.89) Meds Home Medications and Allergies Home Medications ?Medication ?Instructions ?Recorded ?Confirmed ?Type aspirin 81 mg capsule 81 mg PO DAILY 03/09/22 05/05/25 History oxygen-air delivery systems 01/30/24 05/05/25 History dapagliflozin propanediol 10 mg 10 mg PO QAM 04/30/24 05/05/25 History tablet (Farxiga) alendronate 70 mg tablet 70 mg PO QWEEK #13 tabs 05/05/25 05/05/25 Rx atorvastatin 40 mg tablet 40 mg PO QHS #90 tabs 05/05/25 05/05/25 Rx carvedilol 12.5 mg tablet 12.5 mg PO BID 05/05/25 05/05/25 History fluticasone fur. 200 mcg-umeclid 1 inh inhalation QDAY #180 ea 05/05/25 05/05/25 Rx 62.5 mcg-vilant 25 mcg inhalat.powder (Trelegy Ellipta) furosemide 20 mg tablet 20 mg PO QAM 05/05/25 05/05/25 History furosemide 40 mg tablet 20 mg PO DAILY 05/05/25 05/05/25 History gabapentin 300 mg capsule 600 mg (2 x 300 mg) PO BID #360 05/05/25 05/05/25 Rx caps losartan 25 mg tablet 25 mg PO DAILY #90 tabs 05/05/25 05/05/25 Rx Allergies Allergy/AdvReac Type Severity Reaction Status Date / Time duloxetine Allergy Mild itchy Verified 05/05/25 13:47 Exam Narrative Exam Narrative: Physical Exam GENERAL: ?vital signs reviewed, well developed and nourished, in no distress HEENT: pupils are equal round and reactive to light, extraocular movements are grossly within normal limits and oral mucosa is moist. NECK: Supple without lymphadenopathy or thyromegaly according to nursing staff examination observation HEART: Regular rate and rhythm without any rubs, murmurs, or gallops. LUNGS: Clear to auscultation bilaterally with good air movement throughout ABDOMEN: Observation from nurse assisted exam, abdomen appears soft, nontender, and nondistended with Positive bowel sounds noted. EXTREMITIES: Strength and sensation is observed to be grossly within normal limits in the upper and lower extremities.? No focal strength deficit is observed. SKIN:? Observed warm and dry with color normal Const Vital Signs, click to edit/add: Vital Signs - 24 hr 07/19/25 23:40 07/19/25 23:43 07/19/25 23:45 Temperature 97.1 F L Pulse Rate 93 95 Pulse Rate [Right Pulse Oximeter] 96 Respiratory Rate 26 H 28 H 21 Blood Pressure Blood Pressure [Left Upper Arm] 181/107 H Blood Pressure [Right Arm] Pulse Oximetry 97 85 L 91 Oxygen Delivery Method Room Air Oxygen Flow Rate 07/19/25 23:48 07/20/25 00:00 07/20/25 00:03 Temperature Pulse Rate 96 91 92 Pulse Rate [Right Pulse Oximeter] Respiratory Rate 15 19 34 H Blood Pressure 157/96 H 142/94 H Blood Pressure [Left Upper Arm] Blood Pressure [Right Arm] Pulse Oximetry 90 93 92 Oxygen Delivery Method Oxygen Flow Rate 07/20/25 00:03 07/20/25 00:03 07/20/25 00:15 Temperature Pulse Rate 92 92 89 Pulse Rate [Right Pulse Oximeter] Respiratory Rate 34 H 34 H Blood Pressure 142/94 H 142/94 H Blood Pressure [Left Upper Arm] Blood Pressure [Right Arm] Pulse Oximetry 92 92 93 Oxygen Delivery Method Oxygen Flow Rate 07/20/25 00:20 07/20/25 00:28 07/20/25 00:30 Temperature Pulse Rate 87 88 Pulse Rate [Right Pulse Oximeter] 87 Respiratory Rate 25 H 20 24 Blood Pressure 155/82 H Blood Pressure [Left Upper Arm] 155/83 H Blood Pressure [Right Arm] Pulse Oximetry 92 90 93 Oxygen Delivery Method Nasal Cannula Oxygen Flow Rate 1 07/20/25 00:32 07/20/25 00:45 07/20/25 00:47 Temperature Pulse Rate 88 85 87 Pulse Rate [Right Pulse Oximeter] Respiratory Rate 25 H 22 24 Blood Pressure 155/93 H 147/90 H Blood Pressure [Left Upper Arm] Blood Pressure [Right Arm] Pulse Oximetry 92 93 92 Oxygen Delivery Method Oxygen Flow Rate 07/20/25 01:00 07/20/25 01:02 07/20/25 02:14 Temperature 99 F Pulse Rate 84 81 Pulse Rate [Right Pulse Oximeter] Respiratory Rate 18 22 Blood Pressure 132/85 Blood Pressure [Left Upper Arm] Blood Pressure [Right Arm] 164/84 H Pulse Oximetry 94 92 93 Oxygen Delivery Method Nasal Cannula Oxygen Flow Rate 1 07/20/25 02:15 07/20/25 02:15 07/20/25 02:32 Temperature 99 F 99 F Pulse Rate Pulse Rate [Right Pulse Oximeter] Respiratory Rate 22 22 22 Blood Pressure Blood Pressure [Left Upper Arm] Blood Pressure [Right Arm] 164/84 H 164/84 H Pulse Oximetry 93 93 93 Oxygen Delivery Method Nasal Cannula Nasal Cannula Nasal Cannula Oxygen Flow Rate 1 1 1 07/20/25 02:33 Temperature Pulse Rate Pulse Rate [Right Pulse Oximeter] Respiratory Rate Blood Pressure Blood Pressure [Left Upper Arm] Blood Pressure [Right Arm] Pulse Oximetry 93 Oxygen Delivery Method Oxygen Flow Rate Hospitalist - H&P: Result Labs Labs: Short CBC 07/20/25 Range/Units 00:00 WBC 9.15 (4.50-11.00) K/uL Hgb 14.1 (12.0-16.0) gm/dL Hct 44.4 (33.0-51.0) % Plt Count 205 (140-440) K/uL Cardiac Enzymes 07/20/25 Range/Units 00:00 Troponin I < 0.01 (0.01-0.04) ng/mL Assessment and Plan Assessment and plan (1) Acute exacerbation of chronic obstructive pulmonary disease: Status: Acute Assessment and Plan: Patient presenting with acute onset SOB, known history of COPD. Admit to [facility] Patient initially on BiPAP, now transition to O2 through NC at 1 L/min. Continuous oximetry Cardiac monitoring O2 therapy to keep SaO2 above 92%. Patient was given Solu-Medrol 125 mg IV x 1 in ED, continue with Solu-Medrol 60 mg IV every 8 hours DuoNebs every 6 hours Add Pulmicort nebulizers twice daily. (2) Acute on chronic respiratory failure with hypoxia and hypercapnia: Status: Acute Assessment and Plan: Patient is on home O2 1 L/min as needed. In ED, initially on BiPAP and now transitioned to O2 through NC at 2 to 3 L/min. Respiratory failure in the setting of COPD as well as obesity hypoventilation. She has no history of CO2 retention. Check ABG if pt deteriorates clinically. For now, RR is stable on 1 L/min NC (3) COPD (chronic obstructive pulmonary disease): Status: Acute Assessment and Plan: Known COPD in the setting of ongoing Tobacco use. She is on Trelegy at home. (4) Hyperglycemia: Status: Acute Assessment and Plan: Pt suspected Prediabetic In the setting of high dose IV steroid therapy, will likely develop steroid induced hyperglycemia Accuchecks BID and SSI (5) Pulmonary hypertension: Status: Acute Assessment and Plan: Likely sec to MONIKA and obesity hypoventilation. Last echo from 2021 showed moderately elevated PA pressures. May need to consider repeat Echo (6) Chronic diastolic CHF (congestive heart failure): Status: Acute Assessment and Plan: In he setting of Hypertensive Heart disease as well as Sleep apnea. (7) Tobacco dependence: Status: Acute Assessment and Plan: Close to 50 pack year smoking Hx, continues to smoke Encouraged to quit Telehealth: Statement Statement Telehealth Visit: Today's History and Physical is provided via interactive telehealth by Ekaterina Puga MD.? Patient is located at [facility].? Provider is located at [facility].? Nursing staff assisted with the patient's exam. The visit being done today meets criteria for a telehealth visit and the patient or patient?s parent/guardian is aware the visit is a telehealth visit.
[2025-07-20] MEDS: OMEPRAZOLE 20 MG CAPSULE DR 40 MG PO (06:26)
--- NOTE | 2025-07-20 06:30 | PC.NURSE ---
Pt admitted last night for COPD Exas. 1-2 L bled into Home Cpap while sleeping. Pt on RA this morning maintaining sats in the low 90s. Up IND. Reporting zero pain. Trace edema Bilat LEs'. Pt states she is feeling much better this am.
[2025-07-20] MEDS: IPRAT-ALBUT 0.5-2.5 MG/3 ML NEB 1 NEB IH (08:22)
[2025-07-20] MEDS: SODIUM CHLORIDE 0.9 % (FLUSH) 10 ML SYRINGE 5 ML IVF (08:23)
[2025-07-20] MEDS: BUDESONIDE 0.5 MG/2ML NEB NEB (09:41)
[2025-07-20] MEDS: ASPIRIN 81 MG TABLET EC PO (09:41)
[2025-07-20] MEDS: ATORVASTATIN CALCIUM 40 MG TABLET PO (09:42)
[2025-07-20] MEDS: FUROSEMIDE 20 MG TABLET PO (09:42)
[2025-07-20] MEDS: GABAPENTIN 300 MG CAPSULE 600 MG PO (09:42)
[2025-07-20] MEDS: INSULIN ASPART 100 UNIT/ML SUBCUT (09:44)
--- NOTE | 2025-07-20 10:39 | W.PC.NUTR.NO ---
Nutrition Progress Note Progress Note Progress Note: RDN with diet education related to heart healthy diet order. Patient admitted for COPD Exacerbation. Past medical history includes COPD, diastolic CHF, chronic respiratory failure on home O2, tobacco dependence and hyperglycemia. Current weight 239 lbs; no height in chart. Current diet order is heart healthy. Breakfast this morning is adequate at 100%. RDN visited with patient and whom reports stable weight and good intakes at home. She tries to follow a low sodium diet. Declined diet education at this time on heart health, however did accept educational materials. RDN's contact information was provided.
--- NOTE | 2025-07-20 13:50 | PC.NURSE ---
Pt discharged @ 1343 via wheelchair, accompanied by . Going back to home. IV removed. Nicotine patch removed. Discharge forms and belongings signed. Pt reported understanding of discharge instructions. Final room check complete.
--- NOTE | 2025-07-20 15:34 | PM.DS1 ---
DS: Providers Provider Date Seen: 07/20/25 Date of admission: 07/20/25 01:35 Primary care physician: Silver Whalen MD Admitting Clinician: Ekaterina Puga MD Attending Physician on discharge: Steven Godoy MD Date of Discharge: 07/20/25 DS: Diagnosis Discharge Diagnosis (1) Acute exacerbation of chronic obstructive pulmonary disease: Status: Acute Problem details: Patient admitted with acute onset of dyspnea last evening. Treated as COPD exacerbation with systemic steroids and inhaled bronchodilators. Feels back to baseline this morning. Anxious to go home. (2) Hypoxia: Status: Acute Problem details: Acute on chronic hypoxia. Uses oxygen at night with CPAP and p.r.n. during the day normally. On this admission required oxygen while awake and at rest initially but then was able to wean off oxygen at rest. (3) Chronic diastolic CHF (congestive heart failure): Status: Acute Problem details: Discussed monitoring and management of heart failure including low-sodium diet, monitoring weights and edema. Consider outpatient use of p.r.n. furosemide in addition to scheduled furosemide for fluid weight gain (4) MONIKA on CPAP: Status: Acute Problem details: - continue home CPAP at night with oxygen (5) Tobacco dependence: Status: Acute Problem details: Discussed importance of stopping smoking and possible benefits of nicotine replacement in this process. DS: Summary Hospital Course Hospital Course: Monik Gallego is seen as an Interactive Telehealth visit. Monik Gallego is a 74 year old female with PMH of COPD, diastolic CHF, chronic respiratory failure on home O2, tobacco dependence and hyperglycemia who presented with acute onset of SOB. Patient notes that she began experiencing worsening shortness of breath earlier on 07/19/2025. That subsequently became much worse around 10 PM when she was sitting down and watching TV. It resulted in calling EMS, EMS noted patient was in significant respiratory distress with SaO2 in the 70s upon their arrival. They gave the patient a DuoNeb and subsequently placed the patient on BiPAP and brought her to ED. Upon arrival in ED, patient was symptomatically improved with SaO2 around 89% on room air, maintaining above 92% at 1 L/min NC. She was given additional DuoNeb therapy. 07/20/2025: This morning patient reports feeling back to baseline with her breathing. No fever. No cough. No chest pain. Eating normally. No other concerns today. Time Spent with Patient Time attestation: Total time spent providing and/or coordinating discharge services: 45 minutes Exam Narrative: Exam Narrative: She is alert appears in no distress. Oriented to her circumstances. Breathing is unlabored. Respirations are clear to auscultation except occasional basilar crackle. No notable wheezing, rales, rhonchi. Fairly good air exchange in all lung [place]. Cardiovascular: S1, S2, regular rate and rhythm. Abdomen is soft without tenderness or mass. Extremities without edema. Const: Vital Signs, click to edit/add: Vital Signs - 24 hr 07/19/25 23:40 07/19/25 23:43 07/19/25 23:45 Temperature 97.1 F L Pulse Rate 93 95 Pulse Rate [Pulse Oximeter] Pulse Rate [Right Pulse Oximeter] 96 Respiratory Rate 26 H 28 H 21 Blood Pressure Blood Pressure [Le ft Upper Arm] 181/107 H Blood Pressure [Ri ght Arm] Pulse Oximetry 97 85 L 91 Oxygen Delivery Me thod Room Air Oxygen Flow Rate 07/19/25 23:48 07/20/25 00:00 07/20/25 00:03 Temperature Pulse Rate 96 91 92 Pulse Rate [Pulse Oximeter] Pulse Rate [Right Pulse Oximeter] Respiratory Rate 15 19 34 H Blood Pressure 157/96 H 142/94 H Blood Pressure [Le ft Upper Arm] Blood Pressure [Ri ght Arm] Pulse Oximetry 90 93 92 Oxygen Delivery Me thod Oxygen Flow Rate 07/20/25 00:03 07/20/25 00:03 07/20/25 00:15 Temperature Pulse Rate 92 92 89 Pulse Rate [Pulse Oximeter] Pulse Rate [Right Pulse Oximeter] Respiratory Rate 34 H 34 H Blood Pressure 142/94 H 142/94 H Blood Pressure [Le ft Upper Arm] Blood Pressure [Ri ght Arm] Pulse Oximetry 92 92 93 Oxygen Delivery Me thod Oxygen Flow Rate 07/20/25 00:20 07/20/25 00:28 07/20/25 00:30 Temperature Pulse Rate 87 88 Pulse Rate [Pulse Oximeter] Pulse Rate [Right Pulse Oximeter] 87 Respiratory Rate 25 H 20 24 Blood Pressure 155/82 H Blood Pressure [Le ft Upper Arm] 155/83 H Blood Pressure [Ri ght Arm] Pulse Oximetry 92 90 93 Oxygen Delivery Me thod Nasal Cannula Oxygen Flow Rate 1 07/20/25 00:32 07/20/25 00:45 07/20/25 00:47 Temperature Pulse Rate 88 85 87 Pulse Rate [Pulse Oximeter] Pulse Rate [Right Pulse Oximeter] Respiratory Rate 25 H 22 24 Blood Pressure 155/93 H 147/90 H Blood Pressure [Le ft Upper Arm] Blood Pressure [Ri ght Arm] Pulse Oximetry 92 93 92 Oxygen Delivery Me thod Oxygen Flow Rate 07/20/25 01:00 07/20/25 01:02 07/20/25 02:14 Temperature 99 F Pulse Rate 84 81 Pulse Rate [Pulse Oximeter] Pulse Rate [Right Pulse Oximeter] Respiratory Rate 18 22 Blood Pressure 132/85 Blood Pressure [Le ft Upper Arm] Blood Pressure [Ri ght Arm] 164/84 H Pulse Oximetry 94 92 93 Oxygen Delivery Me thod Nasal Cannula Oxygen Flow Rate 1 07/20/25 02:15 07/20/25 02:15 07/20/25 02:32 Temperature 99 F 99 F Pulse Rate Pulse Rate [Pulse Oximeter] Pulse Rate [Right Pulse Oximeter] Respiratory Rate 22 22 22 Blood Pressure Blood Pressure [Le ft Upper Arm] Blood Pressure [Ri ght Arm] 164/84 H 164/84 H Pulse Oximetry 93 93 93 Oxygen Delivery Me thod Nasal Cannula Nasal Cannula Nasal Cannula Oxygen Flow Rate 1 1 1 07/20/25 02:33 07/20/25 02:51 07/20/25 08:47 Temperature 97.4 F L Pulse Rate 75 Pulse Rate [Pulse Oximeter] 80 Pulse Rate [Right Pulse Oximeter] Respiratory Rate 20 Blood Pressure Blood Pressure [Le ft Upper Arm] Blood Pressure [Ri ght Arm] 147/85 H Pulse Oximetry 93 91 Oxygen Delivery Me thod Room Air Oxygen Flow Rate 07/20/25 08:50 07/20/25 09:00 07/20/25 10:49 Temperature 97.4 F L Pulse Rate 76 Pulse Rate [Pulse Oximeter] 91 Pulse Rate [Right Pulse Oximeter] Respiratory Rate 20 20 Blood Pressure Blood Pressure [Le ft Upper Arm] Blood Pressure [Ri ght Arm] 144/77 H Pulse Oximetry 91 92 Oxygen Delivery Me thod Room Air Room Air Oxygen Flow Rate DS: Data Data Completed and Pending Completed studies during hospitalization: Procedures Assistance with Respiratory Ventilation, Less than 24 Consecutive Hours, Continuous Positive Airway Pressure (10/25/22) Introduction of Other Gas into Respiratory Tract, Via Natural or Artificial Opening (01/24/24) Labs on day of discharge: Labs from last 24 hours 07/20/25 07/20/25 01:00 00:00 WBC 9.15 RBC 4.47 Hgb 14.1 Hct 44.4 MCV 99 MCH 32 MCHC 32 RDW Coeff of Ezra 13.9 Plt Count 205 Neut % (Auto) 61.1 Lymph % (Auto) 23.8 [place] % (Auto) 7.8 Eos % (Auto) 6.3 Baso % (Auto) 0.3 Neut # (Auto) 5.59 Lymph # (Auto) 2.18 [place] # (Auto) 0.70 Eos # (Auto) 0.58 H Baso # (Auto) 0.03 Abs Immat Gran (auto) 0.06 Imm/Tot Granulo (auto) 0.7 INR 0.88 L D-Dimer Quant (PE/DVT) 0.60 H VBG pH 7.351 7.303 L VBG pCO2 58 H 67 H* VBG pO2 34.2 32.8 VBG HCO3 32 H 33 H Lactate 1.4 Troponin I < 0.01 NT-Pro-B Natriuret Pep 412 H SARS-CoV-2 (PCR) Negative SARS-CoV-2 Influenza Type A (PCR) Negative PCR FLU A Influenza Type B (PCR) Negative PCR FLU B RSV (PCR) Negative PCR RSV Imaging Chest x-ray: Radiologist's impression: INDICATION: Dyspnea on exertion, shortness of breath. TECHNIQUE: Chest 1 view. COMPARISON: Chest radiograph 10/25/2022. FINDINGS: Cardiovascular: Stable cardiomegaly. The central pulmonary arteries are enlarged which can be seen with pulmonary hypertension. No significant pulmonary vascular congestion. Lungs and pleural spaces: The lungs are clear. No sign of pleural effusion. No pneumothorax identified. Bones and soft tissues: Mild elevation of the right hemidiaphragm. Old right posterior rib fracture. IMPRESSION: Cardiomegaly with enlarged central pulmonary arteries. No other acute findings. Discharge Plan Discharge Disposition: Home, Self-Care Date of Admission: 07/20/25 01:35 Attending Provider on Discharge: Harley Godoy Primary Care Provider: Silver Whalen Condition: Improved Anticipated Discharge Date/Time: 07/20/25 11:26 Discharge Medications: New albuterol sulfate 90 mcg/actuation HFA aerosol inhaler 2 puff inhalation QID PRN (Reason: shortness of breath or wheezing) Qty: 6.7 1RF nicotine 14 mg/24 hr patch 24 hour 1 patch transdermal DAILY Qty: 28 0RF prednisone 20 mg tablet 40 mg PO DAILY Qty: 8 0RF Continued dapagliflozin propanediol [Farxiga] 10 mg tablet 10 mg PO QAM carvedilol 12.5 mg tablet 12.5 mg PO BID furosemide 20 mg tablet 20 mg PO QAM alendronate 70 mg tablet 70 mg PO QWEEK Qty: 13 3RF atorvastatin 40 mg tablet 40 mg PO QHS Qty: 90 3RF Trelegy Ellipta 200-62.5-25 mcg blister with device 1 inh inhalation QDAY Qty: 180 3RF gabapentin 300 mg capsule 600 mg PO BID Qty: 360 4RF losartan 25 mg tablet 25 mg PO DAILY Qty: 90 3RF aspirin 81 mg capsule 81 mg PO DAILY multivitamin [Daily Multi-Vitamin] Tablet 1 tab PO DAILY PreserVision AREDS 4,296 mcg-226 mg-90 mg capsule 1 cap PO BID Discharge Orders: Discharge Order (Routine); Ordered 07/20/25 Ordered By: Harley Godoy Patient Education: Albuterol (By breathing), Prednisone (By mouth), Nicotine (Absorbed through the skin), COPD (Chronic Obstructive Pulmonary Disease) (DC) Additional Instructions: I recommend you stop smoking. Replacing cigarettes with other forms of nicotine can work well. I have prescribed a nicotine patch. You can use other forms of supplemental nicotine available without a prescription if needed. Your blood sugar is elevated in the hospital. This is probably primarily because we gave you steroid medication. After you are off the steroid medication, prednisone, you should talk to your doctor about checking her blood sugar. Every morning when you wake up I would like you today weight yourself before you eat or drink. Keep a written record of your daily weight. If your weight increases from dated day it is usually due to retaining salt and water and often means you need more furosemide. Talk to your doctor about this. Discharge Diet: Heart Healthy (2 gm sodium, low fat) Follow Up Appointments: Silver Whalen MD [Primary Care Provider, Family Practice] - 07/27/25 7:15 am Referral Note: [facility] for hospital follow-up. Forms: [employer] Info Instructions
== END 2025-07-20 13:43 | disposition home or self-care (01) ==
LOC: ED 07-20 01:25 → MEDSURG 07-20 01:35
PROVIDERS: Admitting Provider Internal Medicine; Emergency Provider Emergency Medicine; PCP Family Medicine; Visit Provider Internal Medicine
DX: J44.1 Chronic obstructive pulmonary disease with (acute) exacerbation (principal); J96.20 Acute and chronic respiratory failure, unspecified whether with hypoxia or hypercapnia; I50.9 Heart failure, unspecified; I27.20 Pulmonary hypertension, unspecified; F17.200 Nicotine dependence, unspecified, uncomplicated; G47.33 Obstructive sleep apnea (adult) (pediatric); Z99.89 Dependence on other enabling machines and devices
CPT/HCPCS: 36415; 71045; 82803; 82962; 83605; 83880; 84484; 85025; 85379; 85610; 87040; 87631; 93005; 94640; 94761; 96374; 96375; 99284; 99285; A9270; G0378; J2919; S4990